=== PATIENT | female | born 1970 ===

== ENCOUNTER 2019-09-11 13:03 | Emergency (ER) | payer OTHER ==
[2019-09-11 13:09] VITALS: BP 133/74; PULSE 122; RESP 20; TEMP 97.9
--- NOTE | 2019-09-11 13:23 | ED ---
Recheck HPI - General Chief Complaint: Recheck/Abnormal Lab/Rx Stated Complaint: Dr's Note Time Seen by Provider: 09/11/19 13:11 Source: patient Mode of arrival: ambulatory Limitations: no limitations - History of Present Illness Initial Comments: Patient is a 49-year-old female, with type 1 diabetes, presenting to the emergency department requesting a return to work note. Patient states approximately 4-5 days ago and patient experience nausea, vomiting, diarrhea that lasted approximately 24 hours. Patient states she currently has no symptoms, however her employer is requesting a return to work note. Patient states she is unable to get into her regular doctor's office so she came to the ER for a work note. She denies chest pain, short of breath, cough, fever, abdominal pain, nausea, vomiting diarrhea. She states her sugar levels have been normal and she wears a pump. She has no further complaints. - Related Data Home Medications Medication Instructions Recorded Confirmed metFORMIN HCL 1,000 mg PO BID 03/31/15 08/15/15 ALPRAZolam [Xanax] 0.25 mg PO TID PRN 08/12/15 08/15/15 DULoxetine HCL [Cymbalta] 30 mg PO DAILY 08/12/15 08/15/15 Ondansetron [Zofran] 4 mg PO Q8HR PRN 08/12/15 08/15/15 Previous Rx's Medication Instructions Recorded HYDROcodone/APAP 5-325MG [[place] 1 tab PO Q6HR PRN #20 tab 08/16/15 5-325] INSULIN LISPRO (HumaLOG) [humaLOG] 0 unit SQ ACHS #1 vial 08/16/15 Insulin Detemir (Levemir) [Levemir] 18 unit SQ BID #1 vial 08/16/15 Allergies Allergy/AdvReac Type Severity Reaction Status Date / Time No Known Allergies Allergy Verified 09/11/19 13:09 Review of Systems ROS Statement: Those systems with pertinent positive or pertinent negative responses have been documented in the HPI. ROS Other: All systems not noted in ROS Statement are negative. Past Medical History Past Medical History: Diabetes Mellitus, Musculoskeletal Disorder Additional Past Medical History / Comment(s): FREQ NAUSEA, PAINFUL LT SHOULDER "FROZEN SHOULDER", NEUROPATHY PORFIRIO LEGS History of Any Multi-Drug Resistant Organisms: None Reported Past Surgical History: Tubal Ligation Past Anesthesia/Blood Transfusion Reactions: No Reported Reaction Additional Past Anesthesia/Blood Transfusion Reaction / Comment(s): UNK FAMILY HX Past Psychological History: Anxiety, Depression Smoking Status: Current every day smoker Past Alcohol Use History: None Reported Past Drug Use History: Marijuana - Past Family History Father History Unknown: Yes Additional Family Medical History / Comment(s): unknown-adopted Mother History Unknown: Yes Additional Family Medical History / Comment(s): unknown- adopted General Exam - General Exam Comments Initial Comments: GENERAL: Well-appearing, well-nourished and in no acute distress. HEAD: Atraumatic, normocephalic. EYES: Pupils equal round and reactive to light, extraocular movements intact, sclera anicteric, conjunctiva are normal. ENT: TMs normal, nares patent, oropharynx clear without exudates. Moist mucous membranes. NECK: Normal range of motion, supple without lymphadenopathy or JVD. LUNGS: Breath sounds clear to auscultation bilaterally and equal. No wheezes rales or rhonchi. HEART: Regular rate and rhythm without murmurs, rubs or gallops. ABDOMEN: Soft, nontender, normoactive bowel sounds. No guarding, no rebound. No masses appreciated. : Deferred EXTREMITIES: Normal range of motion, no pitting or edema. No clubbing or cyanosis. NEUROLOGICAL: Cranial nerves II through XII grossly intact. ormal speech, normal gait. PSYCH: Normal mood, normal affect. SKIN: Warm, Dry, normal turgor, no rashes or lesions noted. Limitations: no limitations Course Vital Signs 09/11/19 13:06 Temperature 97.9 F Pulse Rate 122 H Respiratory 20 Rate Blood Pressure 133/74 O2 Sat by Pulse 99 Oximetry Medical Decision Making - Medical Decision Making Patient is a 49-year-old female here requesting a return to work note secondary to having nausea, vomiting, diarrhea proximal 4 days ago. Symptoms last did approximately 24 hours. She is currently symptom-free. She has no complaints today. Exam is unremarkable. Patient was given a return to work note. She is stable for discharge. Patient will follow-up with her PCP as needed. Disposition Clinical Impression: Normal exam Disposition: HOME SELF-CARE Condition: Stable Instructions (If sedation given, give patient instructions): Normal Exam (ED) Additional Instructions: Please return to the Emergency Department if symptoms worsen or any other concerns. Is patient prescribed a controlled substance at d/c from ED?: No Referrals: William Macias MD [Primary Care Provider] - 1-2 days
== END 2019-09-11 13:27 | disposition home or self-care (01) ==
LOC: SUPCPDRO 13:03 → EC 13:03
DX: Z02.79 Encounter for issue of other medical certificate (principal); F32.9 Major depressive disorder, single episode, unspecified; E11.42 Type 2 diabetes mellitus with diabetic polyneuropathy; F41.9 Anxiety disorder, unspecified; F17.200 Nicotine dependence, unspecified, uncomplicated; Z79.84 Long term (current) use of oral hypoglycemic drugs; Z79.899 Other long term (current) drug therapy
CPT/HCPCS: 99282

== ENCOUNTER 2021-01-03 18:47 | Inpatient (IN) | payer OTHER ==
[2021-01-03] MEDS ORDERED: SODIUM CHLORIDE 0.9% 500 ML 500 ML IV ONE (19:55)
[2021-01-03] MEDS ORDERED: HYDROmorphone 0.5 MG/0.5 ML SYRINGE IVP STA (20:02)
[2021-01-03 20:26] LABS: Basophils # (A) 0.1 k/uL (0-0.2); Basophils % (A) 1 %; Eosinophils # (A) 0.1 k/uL (0-0.7); Eosinophils % (A) 1 %; HCT 52.9 % (34.0-46.0); HGB 17.3 gm/dL (11.4-16.0); Lymphocytes # (A) 1.6 k/uL (1.0-4.8); Lymphocytes % (A) 22 %; MCH 31.2 pg (25.0-35.0); MCHC 32.7 g/dL (31.0-37.0); MCV 95.5 fL (80.0-100.0); Mean Platelet Volume 7.5; Monocytes # (A) 0.4 k/uL (0-1.0); Monocytes % (A) 5 %; Neutrophils # (A) 4.9 k/uL (1.3-7.7); Neutrophils % (A) 69 %; Platelet Count 330 k/uL (150-450); RBC 5.54 m/uL (3.80-5.40); RDW 13.4 % (11.5-15.5); WBC 7.2 k/uL (3.8-10.6)
[2021-01-03 20:37] LABS: ALT 20 U/L (4-34); AST 29 U/L (14-36); African American GFR (CKD) >90 (>60 ml/min/1.73 sqM); Albumin 4.5 g/dL (3.5-5.0); Alkaline Phosphatase 122 U/L (38-126); Anion Gap 16 mmol/L; Blood Urea Nitrogen 13 mg/dL (7-17); Calcium 9.7 mg/dL (8.4-10.2); Carbon Dioxide 20 mmol/L (22-30); Chloride 94 mmol/L (98-107); Glucose 357 mg/dL (74-99); Magnesium 1.7 mg/dL (1.6-2.3); Non-African American GFR(CKD) >90 (>60 ml/min/1.73 sqM); Phosphorus 3.5 mg/dL (2.5-4.5); Potassium 4.9 mmol/L (3.5-5.1); Sodium 130 mmol/L (137-145); Total Bilirubin 0.7 mg/dL (0.2-1.3); Total Protein 7.3 g/dL (6.3-8.2)
[2021-01-03] MEDS ORDERED: SODIUM CHLORIDE 0.9% 1,000 ML IV ONE (20:55)
--- NOTE | 2021-01-03 21:33 | ED ---
Recheck HPI - General Chief Complaint: Recheck/Abnormal Lab/Rx Stated Complaint: Vomiting Time Seen by Provider: 01/03/21 19:36 Source: patient, EMS Mode of arrival: EMS - History of Present Illness Initial Comments: 50 year-old female patient presents to the emergency department for abdominal pain and vomiting. States that it has been going on for quite some time. She has been on hospice since mid September for uncontrolled diabetes, failure to thrive, and kidney failure. Patient states that she was told that she could not do dialysis because her "body couldn't handle it". States that she has lost a lot of weight. Does not eat. Spoke to the hospice nurse who states that patient sleeps all the time, smokes cigarettes, and marijuana. States that she offered to treat her pain and nausea at home but she wanted to come in for evaluation for possible alteration in electrolytes. Patient states that she is severely depressed. She never feels good and feels so sick. - Related Data Home Medications Medication Instructions Recorded Confirmed Ondansetron [Zofran] 4 mg PO Q8HR PRN 08/12/15 01/03/21 INSULIN LISPRO (HumaLOG) [humaLOG] See Protocol SQ ACHS PRN 01/03/21 01/03/21 Mirtazapine [Remeron] 15 mg PO HS 01/03/21 01/03/21 Pregabalin 75 mg PO TID 01/03/21 01/03/21 Prochlorperazine Suppository 25 mg RECTAL BID PRN 01/03/21 01/03/21 [Compazine] Previous Rx's Medication Instructions Recorded HYDROcodone/APAP 5-325MG [[place] 1 tab PO Q6HR PRN #20 tab 08/16/15 5-325] Allergies Allergy/AdvReac Type Severity Reaction Status Date / Time No Known Allergies Allergy Verified 01/03/21 21:58 Review of Systems ROS Statement: Those systems with pertinent positive or pertinent negative responses have been documented in the HPI. ROS Other: All systems not noted in ROS Statement are negative. Past Medical History Past Medical History: Diabetes Mellitus, Musculoskeletal Disorder Additional Past Medical History / Comment(s): FREQ NAUSEA, PAINFUL LT SHOULDER "FROZEN SHOULDER", NEUROPATHY PORFIRIO LEGS History of Any Multi-Drug Resistant Organisms: None Reported Past Surgical History: Tubal Ligation Past Anesthesia/Blood Transfusion Reactions: No Reported Reaction Additional Past Anesthesia/Blood Transfusion Reaction / Comment(s): UNK FAMILY HX Past Psychological History: Anxiety, Depression Past Alcohol Use History: None Reported Past Drug Use History: Marijuana - Past Family History Father History Unknown: Yes Additional Family Medical History / Comment(s): unknown-adopted Mother History Unknown: Yes Additional Family Medical History / Comment(s): unknown- adopted General Exam General appearance: alert, in no apparent distress, other (Physical well- developed, cachectic appearing adult female patient in no acute distress. Vital signs upon presentation temperature 97.8F, pulse 106, respirations 18, blood pressure 88/61, pulse ox 98% on room air.) Eye exam: Present: normal appearance, PERRL, EOMI. Absent: scleral icterus, conjunctival injection, periorbital swelling ENT exam: Present: normal exam, normal oropharynx, mucous membranes moist Respiratory exam: Present: normal lung sounds bilaterally. Absent: respiratory distress, wheezes, rales, rhonchi, stridor Cardiovascular Exam: Present: normal rhythm, tachycardia, normal heart sounds. Absent: systolic murmur, diastolic murmur, rubs, gallop, clicks GI/Abdominal exam: Present: soft, tenderness (Generalized), normal bowel sounds. Absent: distended, guarding, rebound, rigid Neurological exam: Present: alert, oriented X3, CN II-XII intact Psychiatric exam: Present: normal affect, normal mood Skin exam: Present: warm, dry, intact, normal color. Absent: rash Course Vital Signs 01/03/21 01/03/21 01/03/21 18:55 19:48 20:19 Temperature 97.8 F Pulse Rate 106 H 109 H 104 H Respiratory 18 18 16 Rate Blood Pressure 88/61 115/78 135/87 O2 Sat by Pulse 98 97 98 Oximetry 01/03/21 21:48 Temperature Pulse Rate 101 H Respiratory 18 Rate Blood Pressure 125/78 O2 Sat by Pulse 97 Oximetry Medical Decision Making - Medical Decision Making 50-year-old female patient who is apparently on hospice for uncontrolled diabetes, renal failure, and failure to thrive presents today for nausea, vomiting, abdominal pain that seems to be worsening. She is concerned her electrolytes may have been imbalanced due to her renal failure. Labs reviewed and revealed normal white blood cell count is 7.2. Did have elevated hemoglobin 17.3, low sodium at 130. Glucose is 357. Kidney function is completely normal. Did have a conversation with the hospice nurse she states she will be discharged from hospice due to coming into the hospital today and because her ki dney function is normal at this time. I did discuss these findings with the patient, she is shocked that her kidney function is normal. She states that she sold all of her possessions and her car because she thought she was dying. States that she is very confused. States that she has been evaluated at [facility]. Denies being seen at any larger hospitals. Her primary physician is Dr. Mendoza. She will be admitted to the hospital for failure to thrive, intractable abdominal pain and nausea. Patient does admit to be extremely depressed. Case discussed with my attending Dr. Hernandez. Dr. Pike accepts admission. GI is consulted. - Lab Data Result diagrams: 01/03/21 20:15 01/03/21 20:15 Lab Results 01/03/21 01/03/21 Range/Units 20:15 20:15 WBC 7.2 (3.8-10.6) k/uL RBC 5.54 H (3.80-5.40) m/uL Hgb 17.3 H (11.4-16.0) gm/dL Hct 52.9 H (34.0-46.0) % MCV 95.5 (80.0-100.0) fL MCH 31.2 (25.0-35.0) pg MCHC 32.7 (31.0-37.0) g/dL RDW 13.4 (11.5-15.5) % Plt Count 330 (150-450) k/uL MPV 7.5 Neutrophils % 69 % Lymphocytes % 22 % Monocytes % 5 % Eosinophils % 1 % Basophils % 1 % Neutrophils # 4.9 (1.3-7.7) k/uL Lymphocytes # 1.6 (1.0-4.8) k/uL Monocytes # 0.4 (0-1.0) k/uL Eosinophils # 0.1 (0-0.7) k/uL Basophils # 0.1 (0-0.2) k/uL Sodium 130 L (137-145) mmol/L Potassium 4.9 (3.5-5.1) mmol/L Chloride 94 L (98-107) mmol/L Carbon Dioxide 20 L (22-30) mmol/L Anion Gap 16 mmol/L BUN 13 (7-17) mg/dL Creatinine 0.40 L (0.52-1.04) mg/dL Est GFR (CKD-EPI)AfAm >90 (>60 ml/min/1.73 sqM) Est GFR (CKD-EPI)NonAf >90 (>60 ml/min/1.73 sqM) Glucose 357 H (74-99) mg/dL Calcium 9.7 (8.4-10.2) mg/dL Phosphorus 3.5 (2.5-4.5) mg/dL Magnesium 1.7 (1.6-2.3) mg/dL Total Bilirubin 0.7 (0.2-1.3) mg/dL AST 29 (14-36) U/L ALT 20 (4-34) U/L Alkaline Phosphatase 122 (38-126) U/L Total Protein 7.3 (6.3-8.2) g/dL Albumin 4.5 (3.5-5.0) g/dL - Radiology Data Radiology results: report reviewed, image reviewed CT abdomen and pelvis with contrast is obtained. Report was reviewed in its entirety. Impression by Dr. He shows negative computed tomography scan abdomen and pelvis. Disposition Clinical Impression: Intractable abdominal pain, Intractable nausea and vomiting, Failure to thrive Disposition: ADMITTED IP TO THIS [facility] Condition: Serious Decision to Admit Reason: Admit from EC Decision Date: 01/03/21 Decision Time: 21:55
[2021-01-03] MEDS ORDERED: NALOXONE 0.4 MG/ML 1 ML VIAL IV PRN (21:55)
[2021-01-03] MEDS ORDERED: LORazepam 1 MG TAB PO STA (22:15)
--- NOTE | 2021-01-03 22:46 | CT ---
EXAMINATION TYPE: CT abdomen pelvis w con DATE OF EXAM: 01/03/2021 COMPARISON: None HISTORY: abdominal pain, nausea, vomiting CT DLP: 357.3 mGycm Automated exposure control for dose reduction was used. CONTRAST: Performed with IV Contrast, patient injected with 100 mL of Isovue 300. Images obtained from the diaphragm to the floor the pelvis with IV contrast. Lung bases are clear. There is no pleural effusion. Heart size is normal. There is no pericardial eff usion. Liver spleen stomach gallbladder pancreas appear intact. The bile ducts are not dilated. There is no adrenal mass. Kidneys show satisfactory contrast opacification. There is no hydronephrosi s. Delayed images show normal renal excretion. There is no retroperitoneal adenopathy. Abdominal aort a is atheromatous. Bladder distends smoothly. There is no inguinal hernia. Uterus is anteverted. Ther e is no free fluid in the pelvis. There is no mesenteric edema. There is no ascites or free air. There is no sign of a bowel obstructio n. There is some narrowing of the L5-S1 disc space. The bony pelvis is intact. The lumbar vertebra have normal alignment. There is no compression fracture. Appendix is not seen with certainty. There is no sign of thickened appendix. IMPRESSION: Negative CT scan abdomen and pelvis.
[2021-01-04] MEDS: SODIUM CHLORIDE 0.9% 1,000 ML IV SCH ×2 (01:48→10:35)
[2021-01-04] MEDS: HYDROmorphone 0.5 MG/0.5 ML SYRINGE IVP PRN ×4 (01:49→20:13)
[2021-01-04] MEDS: ONDANSETRON 4 MG/2 ML VIAL IVP PRN ×2 (01:49→10:41)
[2021-01-04] MEDS ORDERED: HYDROcodone/APAP 5-325MG 1 EACH TAB PO PRN (03:32)
[2021-01-04 05:53] LABS: Basophils # (A) 0.1 k/uL (0-0.2); Basophils % (A) 1 %; Eosinophils # (A) 0.1 k/uL (0-0.7); Eosinophils % (A) 1 %; HCT 45.6 % (34.0-46.0); HGB 14.7 gm/dL (11.4-16.0); Lymphocytes # (A) 1.9 k/uL (1.0-4.8); Lymphocytes % (A) 22 %; MCH 30.9 pg (25.0-35.0); MCHC 32.3 g/dL (31.0-37.0); MCV 95.7 fL (80.0-100.0); Mean Platelet Volume 7.9; Monocytes # (A) 0.4 k/uL (0-1.0); Monocytes % (A) 5 %; Neutrophils # (A) 5.8 k/uL (1.3-7.7); Neutrophils % (A) 69 %; Platelet Count 262 k/uL (150-450); RBC 4.76 m/uL (3.80-5.40); WBC 8.4 k/uL (3.8-10.6)
[2021-01-04 06:06] LABS: ALT 16 U/L (4-34); AST 23 U/L (14-36); African American GFR (CKD) >90 (>60 ml/min/1.73 sqM); Albumin 3.5 g/dL (3.5-5.0); Alkaline Phosphatase 88 U/L (38-126); Anion Gap 9 mmol/L; Blood Urea Nitrogen 10 mg/dL (7-17); Calcium 8.9 mg/dL (8.4-10.2); Carbon Dioxide 22 mmol/L (22-30); Chloride 102 mmol/L (98-107); Glucose 342 mg/dL (74-99); Non-African American GFR(CKD) >90 (>60 ml/min/1.73 sqM); Potassium 4.1 mmol/L (3.5-5.1); Sodium 133 mmol/L (137-145); Total Bilirubin 0.4 mg/dL (0.2-1.3); Total Protein 5.9 g/dL (6.3-8.2)
[2021-01-04] MEDS ORDERED: PROCHLORPERAZINE SUPPOSITORY 25 MG SUPP RECTAL PRN (06:49)
[2021-01-04] MEDS: PREGABALIN 75 MG CAP PO SCH ×3 (07:30→20:34)
[2021-01-04 07:38] LABS: Glucose,Whole Blood 323 mg/dL (75-99)
[2021-01-04] MEDS: INSULIN ASPART (NovoLOG) 100 UNIT/ML VIAL SQ SCH ×4 (07:59→20:34)
--- NOTE | 2021-01-04 10:29 | P.CONS ---
History of Present Illness - Reason for Consult Consult date: 01/04/21 wound care - History of Present Illness this is a 50-year-old patient being seen by the wound care center for nonhealing ulcerations to the bilateral lower extremity. Patient has an ulceration to the right foot on the first digit and in between the webbing of the third and fourth digit. The ulcerations are limited to skin breakdown. Granulation seen throughout the wound bed with minimal slough. The left foot ulceration is noted to the first digit and the webbing of the third and fourth digit and fourth digit. The ulceration is Limited to skin breakdown. With serosanguineous drainage. granulation seen within the wound bed with minimal slough. patient states that the ulceration started because she picks at her feet from nerves. Patient was recently on hospice due to kidney failure and uncontrolled diabetes. Her blood sugars range from 300 500. Patient at this time has been refusing any insulin because she wants to keep her blood sugars elevated. Review Of Systems: Constitutional: No fever, no chills, no night sweats. No weight change. No weakness, fatigue or lethargy. No daytime sleepiness. Integumentary:reports wounds, no lesions. No rash or pruritus. No unusual bruising. No change in hair or nails. Physical exam: General Appearance: Alert, cooperative, no distress, appears stated age. Skin: See HPI all other Skin color, texture, tugor normal, no rashes or lesions. Neurologic: Alert oriented x3 Assessment: 1. Diabetic foot ulcer 2. Nonhealing ulcerations to the great toe and webbing between the third and fourth toe of right foot. 3. Nonhealing ulcerations of the great toe, webbing between the third and fourth digit and the fourth digit of the left foot. Plan: 1. Apply honey gel to all ulcerations, dry gauze, rolled gauze and secured with paper tape. Change Saturday. Specimen length with patient the importance of keeping blood sugars under control and how elevated blood sugars will increase the risk of developing infections to the open ulcerations. Patient verbalized understanding however she states that she still wants her blood sugar between 300-500. Thank you for the consultation any questions please contact the wound care center DNP note has been reviewed and discussed with Dr. Gregory and the impression and plan of care has been directed as dictated. Past Medical History Past Medical History: Diabetes Mellitus, Musculoskeletal Disorder Additional Past Medical History / Comment(s): FREQ NAUSEA, PAINFUL LT SHOULDER "FROZEN SHOULDER", NEUROPATHY PORFIRIO LEGS History of Any Multi-Drug Resistant Organisms: None Reported Past Surgical History: Tubal Ligation Past Anesthesia/Blood Transfusion Reactions: No Reported Reaction Additional Past Anesthesia/Blood Transfusion Reaction / Comm: UNK FAMILY HX Past Psychological History: Anxiety, Depression Smoking Status: Current every day smoker Past Alcohol Use History: None Reported Additional Past Alcohol Use History / Comment(s): STARTED SMOKING 1987 Past Drug Use History: Marijuana Additional Drug Use History / Comment(s): HAS MEDICAL MARIJUANA CARD-USES DAILY AND FREQUENTLY - Past Family History Father History Unknown: Yes Additional Family Medical History / Comment(s): unknown-adopted Mother History Unknown: Yes Additional Family Medical History / Comment(s): unknown- adopted Medications and Allergies Home Medications Medication Instructions Recorded Confirmed Type Ondansetron [Zofran] 4 mg PO Q8HR PRN 08/12/15 01/03/21 History HYDROcodone/APAP 5-325MG [[place] 1 tab PO Q6HR PRN #20 tab 08/16/15 01/03/21 Rx 5-325] INSULIN LISPRO (HumaLOG) [humaLOG] See Protocol SQ ACHS PRN 01/03/21 01/03/21 History Mirtazapine [Remeron] 15 mg PO HS 01/03/21 01/03/21 History Pregabalin 75 mg PO TID 01/03/21 01/03/21 History Prochlorperazine Suppository 25 mg RECTAL BID PRN 01/03/21 01/03/21 History [Compazine] Allergies Allergy/AdvReac Type Severity Reaction Status Date / Time No Known Allergies Allergy Verified 01/03/21 21:58 Physical Exam Vitals: Vital Signs Temp Pulse Pulse Resp BP BP Pulse Ox 01/04/21 07:00 97.6 F 104 H 18 164/98 99 01/04/21 01:28 97.5 F L 96 16 107/73 100 01/04/21 01:04 98.1 F 97 18 101/74 97 01/03/21 21:48 101 H 18 125/78 97 01/03/21 20:19 104 H 16 135/87 98 01/03/21 19:48 109 H 18 115/78 97 01/03/21 18:55 97.8 F 106 H 18 88/61 98 Intake and Output 01/03/21 01/04/21 01/04/21 22:59 06:59 14:59 Intake Total 1800 Balance 1800 Intake: Intake, IV Titration 1800 Amount Sodium Chloride 0.9% 1, 300 000 ml @ 75 mls/hr IV . [id number] [facility] Rx#:[id number] Sodium Chloride 0.9% 1, 1000 000 ml @ 999 mls/hr IV . Q1H1M ONE Rx#:[id number] Sodium Chloride 0.9% 500 500 ml 500 ml @ 999 mls/hr IV .Q31M ONE Rx#:[id number] Other: # Voids 3 Weight 32.659 kg 32.1 kg Results CBC & Chem 7: 01/04/21 05:06 01/04/21 05:06 Labs: Abnormal Lab Results - Last 24 Hours (Table) 01/03/21 01/03/21 01/04/21 Range/Units 20:15 20:15 05:06 RBC 5.54 H (3.80-5.40) m/uL Hgb 17.3 H (11.4-16.0) gm/dL Hct 52.9 H (34.0-46.0) % Sodium 130 L 133 L (137-145) mmol/L Chloride 94 L (98-107) mmol/L Carbon Dioxide 20 L (22-30) mmol/L Creatinine 0.40 L 0.35 L (0.52-1.04) mg/dL Glucose 357 H 342 H (74-99) mg/dL POC Glucose (mg/dL) (75-99) mg/dL Total Protein 5.9 L (6.3-8.2) g/dL 01/04/21 Range/Units 07:22 RBC (3.80-5.40) m/uL Hgb (11.4-16.0) gm/dL Hct (34.0-46.0) % Sodium (137-145) mmol/L Chloride (98-107) mmol/L Carbon Dioxide (22-30) mmol/L Creatinine (0.52-1.04) mg/dL Glucose (74-99) mg/dL POC Glucose (mg/dL) 323 H (75-99) mg/dL Total Protein (6.3-8.2) g/dL Assessment and Plan (1) Non-healing ulcer of right foot, limited to breakdown of skin Current Visit: Yes Status: Acute Code(s): L97.511 - NON-PRS CHRONIC ULCER OTH PRT R FOOT LIMITED TO BRKDWN SKIN SNOMED Code(s): 889530753 (2) Non-healing ulcer of left foot, limited to breakdown of skin Current Visit: Yes Status: Acute Code(s): L97.521 - NON-PRS CHRONIC ULCER OTH PRT L FOOT LIMITED TO BRKDWN SKIN SNOMED Code(s): 073436494 (3) Diabetic foot ulcer Current Visit: Yes Status: Acute Code(s): E11.621 - TYPE 2 DIABETES MELLITUS WITH FOOT ULCER; L97.509 - NON-PRESSURE CHRONIC ULCER OTH PRT UNSP FOOT W UNSP SEVERITY SNOMED Code(s): 782918199
--- NOTE | 2021-01-04 11:30 | HP ---
HISTORY AND PHYSICAL HISTORY: A 50-year-old white female, nonhealing ulcerations, bilateral lower extremities, ulceration on the right foot first digit with skin breakdown with minimal slough. Left foot ulceration is noted on 3rd, 4th and 5th digit. Ulcerations limited to breakdown, serosanguineous drainage. She has been placed in hospice for kidney failure and uncontrolled diabetes. She has no signs of kidney failure on today's admission. Her sugars range from 300 to 500, but she had been refusing insulin because she wants to keep her blood sugars elevated. REVIEW OF SYSTEMS: A 14-point review of system is otherwise negative. PHYSICAL EXAMINATION: Alert, cooperative, no acute distress. PSYCH: Alert oriented x3. SKIN: As mentioned above except for the feet. CARDIOVASCULAR: S1, S2. LUNGS: Clear. Hematology negative Homans. PSYCH: Fair mood and affect. ASSESSMENT: 1. Diabetic foot ulcer. 2. Uncontrolled diabetes mellitus. 3. Nonhealing ulcerations of the great toe in the webbing. PLAN: Continue with wound care, dressings and Medihoney applied to the dressings. IV antibiotics. Control her blood sugars. Will get a consult with proof clerk, vascular surgery as well as infectious disease doctor. Please see further orders. PAST MEDICAL HISTORY: As mentioned. SURGICAL HISTORY: Tubal ligation. She has had anxiety, depression, current everyday smoker and marijuana. FAMILY HISTORY: Father unknown. Mother unknown. She is adopted. HOME MEDICATIONS: [place] 5/325 q.6 hours, Zofran 4 mg q.8h, Humalog protocol, Remeron 15 daily, Pregabalin 75 t.i.d. ALLERGIES: No known drug allergies. Blood pressure has been low 100s over 70s to 80s. Pulse is in the low 100s, temp 97, O2 saturation 97-100. ASSESSMENT: Nonhealing ulcers of the right and left foot, diabetic foot ulcer, uncontrolled diabetes mellitus, persistent nausea and vomiting. We will get GI involved. CT of the abdomen and pelvis normal. Please see further orders. MMODL / IJN: [id number] /
[2021-01-04 11:55] LABS: Glucose,Whole Blood 398 mg/dL (75-99)
[2021-01-04] MEDS: PANTOPRAZOLE 40 MG/10 ML VIAL IVP SCH (12:27)
--- NOTE | 2021-01-04 13:29 | P.CONS ---
History of Present Illness - Reason for Consult Consult date: 01/04/21 Intractable nausea, vomiting, abdominal pain Requesting physician: Dell Pike - Chief Complaint Abdominal pain and vomiting - History of Present Illness This is a 50-year-old female who presented to the emergency department yesterday with complaints of abdominal pain and vomiting. Patient states she vomits when she eats, she has had a 30 pound weight loss over the past 4 years since her . She's had diarrhea 1 month and may go 3-4 times a day. She does state she has started new medications including Lyrica, Remeron, and Zofran. She has a past medical history of diabetes mellitus, musculoskeletal disorder, and states that she had renal failure and was put into hospice and has been under the care of hospice. The patient on admission had blood sugars in the 300 range. She states that she keeps her blood sugars between 3 and 500 at home. As part of her workup in the emergency department she had a CT of the abdomen and pelvis which was negative. She has had no previous EGD or colonoscopy. Labs show WBC 7.2, hemoglobin 14.7, hematocrit 45, platelet count 262,000, total bilirubin 0.4, alkaline phosphatase 88, AST 23, ALT 16. Patient has been refusing her insulin since she's been admitted to the hospital and states that she likes her blood sugars to remain between 305 100 otherwise she does not feel well. Review of Systems REVIEW OF SYSTEMS: CARDIOPULMONARY: No chest pain or shortness of breath. Gastrointestinal: Diffuse abdominal pain. Nausea and vomiting after eating.. No hematemesis, coffee-ground emesis. No rectal bleeding, or melena. Diarrhea. GENITOURINARY: No dysuria or hematuria. MUSCULOSKELETAL: Reports normal range of motion., Joint pain. Patient reports chronic pain. SKIN: No rashes. No jaundice. ENDOCRINE: No chills, fevers. Weight loss of 30 pounds over the last 4 years. No polydipsia or polyuria. PSYCHIATRIC: Unremarkable. NEUROLOGY: No change in mental status. Denies dizziness, headache. ENT: Vision unremarkable. CONSTITUTIONAL: No recent weight loss. No fever, chills, night sweats. Past Medical History Past Medical History: Diabetes Mellitus, Musculoskeletal Disorder Additional Past Medical History / Comment(s): FREQ NAUSEA, PAINFUL LT SHOULDER "FROZEN SHOULDER", NEUROPATHY PORFIRIO LEGS History of Any Multi-Drug Resistant Organisms: None Reported Past Surgical History: Tubal Ligation Past Anesthesia/Blood Transfusion Reactions: No Reported Reaction Additional Past Anesthesia/Blood Transfusion Reaction / Comm: UNK FAMILY HX Past Psychological History: Anxiety, Depression Smoking Status: Current every day smoker Past Alcohol Use History: None Reported Additional Past Alcohol Use History / Comment(s): STARTED SMOKING 1987 Past Drug Use History: Marijuana Additional Drug Use History / Comment(s): HAS MEDICAL MARIJUANA CARD-USES DAILY AND FREQUENTLY - Past Family History Father History Unknown: Yes Additional Family Medical History / Comment(s): unknown-adopted Mother History Unknown: Yes Additional Family Medical History / Comment(s): unknown- adopted Medications and Allergies Home Medications Medication Instructions Recorded Confirmed Type Ondansetron [Zofran] 4 mg PO Q8HR PRN 08/12/15 01/03/21 History HYDROcodone/APAP 5-325MG [[place] 1 tab PO Q6HR PRN #20 tab 08/16/15 01/03/21 Rx 5-325] INSULIN LISPRO (HumaLOG) [humaLOG] See Protocol SQ ACHS PRN 01/03/21 01/03/21 History Mirtazapine [Remeron] 15 mg PO HS 01/03/21 01/03/21 History Pregabalin 75 mg PO TID 01/03/21 01/03/21 History Prochlorperazine Suppository 25 mg RECTAL BID PRN 01/03/21 01/03/21 History [Compazine] Allergies Allergy/AdvReac Type Severity Reaction Status Date / Time No Known Allergies Allergy Verified 01/03/21 21:58 Physical Exam Vitals: Vital Signs Temp Pulse Pulse Resp BP BP Pulse Ox 01/04/21 07:00 97.6 F 104 H 18 164/98 99 01/04/21 01:28 97.5 F L 96 16 107/73 100 01/04/21 01:04 98.1 F 97 18 101/74 97 01/03/21 21:48 101 H 18 125/78 97 01/03/21 20:19 104 H 16 135/87 98 01/03/21 19:48 109 H 18 115/78 97 01/03/21 18:55 97.8 F 106 H 18 88/61 98 Intake and Output 01/03/21 01/04/21 01/04/21 22:59 06:59 14:59 Intake Total 1800 Balance 1800 Intake: Intake, IV Titration 1800 Amount Sodium Chloride 0.9% 1, 300 000 ml @ 75 mls/hr IV . [id number] [facility] Rx#:[id number] Sodium Chloride 0.9% 1, 1000 000 ml @ 999 mls/hr IV . Q1H1M ONE Rx#:[id number] Sodium Chloride 0.9% 500 500 ml 500 ml @ 999 mls/hr IV .Q31M [facility] Rx#:[id number] Other: # Voids 3 Weight 32.659 kg 32.1 kg General appearance: The patient is alert, oriented, appears in no acute distress. Thin. HET: Head is normocephalic and atraumatic. Conjunctiva pink. Sclera anicteric. Neck: Supple without lymphadenopathy. Trachea midline. Heart: S1 S2. Regular rate and rhythm. Lungs: Clear to auscultation. Abdomen: Soft, diffuse tenderness, thin, nondistended with bowel sounds. No guarding or rigidity. Skin: No rashes. No jaundice. Wounds on feet. Extremities: Normal skin color and turgor. No pedal edema. Neurological: No focal deficits. Alert and oriented 3.. Results CBC & Chem 7: 01/04/21 05:06 01/04/21 05:06 Labs: Abnormal Lab Results - Last 24 Hours (Table) 01/03/21 01/03/21 01/04/21 Range/Units 20:15 20:15 05:06 RBC 5.54 H (3.80-5.40) m/uL Hgb 17.3 H (11.4-16.0) gm/dL Hct 52.9 H (34.0-46.0) % Sodium 130 L 133 L (137-145) mmol/L Chloride 94 L (98-107) mmol/L Carbon Dioxide 20 L (22-30) mmol/L Creatinine 0.40 L 0.35 L (0.52-1.04) mg/dL Glucose 357 H 342 H (74-99) mg/dL POC Glucose (mg/dL) (75-99) mg/dL Total Protein 5.9 L (6.3-8.2) g/dL 01/04/21 Range/Units 07:22 RBC (3.80-5.40) m/uL Hgb (11.4-16.0) gm/dL Hct (34.0-46.0) % Sodium (137-145) mmol/L Chloride (98-107) mmol/L Carbon Dioxide (22-30) mmol/L Creatinine (0.52-1.04) mg/dL Glucose (74-99) mg/dL POC Glucose (mg/dL) 323 H (75-99) mg/dL Total Protein (6.3-8.2) g/dL CT scan - abdomen: report reviewed (Negative findings.) Assessment and Plan (1) Nausea & vomiting Narrative/Plan: 50-year-old female who presented to the emergency department with complaints of abdominal pain, vomiting, and diarrhea. Patient has been under hospice care for end-stage renal disease. She has a history of diabetes mellitus with uncontrolled blood sugars, states her blood sugars normally run between 300 and 500, which she states is her norm and does not treat her blood sugars. She complains of nausea and vomiting, especially associated with eating. She also c omplains of diarrhea for the last 1 month's duration. She does state that she started new medications including Lyrica, Remeron, and Zofran. She denies any sick contacts, she's been afebrile. She said no previous EGD or colonoscopy. CT of the abdomen and pelvis on admission with negative findings. Labs were unremarkable. Likely dealing with nausea and vomiting related to uncontrolled blood sugars and possible component of gastroparesis due to her diabetes mellitus. Discuss with patient the small portions. We'll add Protonix 40 mg daily. Current Visit: Yes Status: Acute Code(s): R11.2 - NAUSEA WITH VOMITING, UNSPECIFIED SNOMED Code(s): 87009253 (2) Abdominal pain Current Visit: Yes Status: Acute Code(s): R10.9 - UNSPECIFIED ABDOMINAL PAIN SNOMED Code(s): 09369015 (3) Diarrhea Current Visit: Yes Status: Acute Code(s): R19.7 - DIARRHEA, UNSPECIFIED SNOMED Code(s): 69497588 Plan: 1. Okay for consistent carbohydrate diet 2. Protonix 40 mg daily 3. Strict glycemic control 4. Discussed with patient importance of eating small frequent meals, limit portion size 5. No plans on endoscopic evaluation at this time 6. Stool studies ordered Thank you for this consultation, we will continue to follow Dr. Kumar I agree with the dictator's note, documented as a scribe by Leigh Ordonez.
[2021-01-04 13:34] VITALS: BMI 14.3
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
[2021-01-04 16:39] LABS: Glucose,Whole Blood 233 mg/dL (75-99)
[2021-01-04 18:21] LABS: Glucose,Whole Blood 345 mg/dL (75-99)
[2021-01-04] MEDS: TRIAMCINOLONE 0.1% CREAM 80 GM TUBE TOPICAL SCH ×2 (20:16→23:58)
[2021-01-04] MEDS: NYSTATIN 100,000UNIT/GM CREAM 30 GM TUBE TOPICAL SCH ×2 (20:16→23:58)
[2021-01-04 20:21] LABS: Glucose,Whole Blood 276 mg/dL (75-99)
[2021-01-04 20:34] LABS: Hemoglobin A1C 17.1 % (4.0-6.0)
[2021-01-04] MEDS ORDERED: MIRTAZAPINE 15 MG TAB PO SCH ×2 (21:00)
[2021-01-04 22:04] LABS: C-Peptide 0.53 ng/mL (0.81-3.85)
--- NOTE | 2021-01-04 23:22 | P.CONS ---
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 Review of Systems Positive point has been mentioned in the HPI rest of the systems are negative Past Medical History Past Medical History: Diabetes Mellitus, Musculoskeletal Disorder Additional Past Medical History / Comment(s): FREQ NAUSEA, PAINFUL LT SHOULDER "FROZEN SHOULDER", NEUROPATHY PORFIRIO LEGS History of Any Multi-Drug Resistant Organisms: None Reported Past Surgical History: Tubal Ligation Past Anesthesia/Blood Transfusion Reactions: No Reported Reaction Additional Past Anesthesia/Blood Transfusion Reaction / Comm: UNK FAMILY HX Past Psychological History: Anxiety, Depression Smoking Status: Current every day smoker Past Alcohol Use History: None Reported Additional Past Alcohol Use History / Comment(s): STARTED SMOKING 1987 Past Drug Use History: Marijuana Additional Drug Use History / Comment(s): HAS MEDICAL MARIJUANA CARD-USES DAILY AND FREQUENTLY - Past Family History Father History Unknown: Yes Additional Family Medical History / Comment(s): unknown-adopted Mother History Unknown: Yes Additional Family Medical History / Comment(s): unknown- adopted Medications and Allergies Home Medications Medication Instructions Recorded Confirmed Type Ondansetron [Zofran] 4 mg PO Q8HR PRN 08/12/15 01/03/21 History HYDROcodone/APAP 5-325MG [[place] 1 tab PO Q6HR PRN #20 tab 08/16/15 01/03/21 Rx 5-325] INSULIN LISPRO (HumaLOG) [humaLOG] See Protocol SQ ACHS PRN 01/03/21 01/03/21 History Mirtazapine [Remeron] 15 mg PO HS 01/03/21 01/03/21 History Pregabalin 75 mg PO TID 01/03/21 01/03/21 History Prochlorperazine Suppository 25 mg RECTAL BID PRN 01/03/21 01/03/21 History [Compazine] Allergies Allergy/AdvReac Type Severity Reaction Status Date / Time No Known Allergies Allergy Verified 01/03/21 21:58 Physical Exam Vitals: Vital Signs Temp Pulse Pulse Resp BP BP Pulse Ox 01/04/21 15:00 98.2 F 118 H 18 131/86 99 01/04/21 07:00 97.6 F 104 H 18 164/98 99 01/04/21 01:28 97.5 F L 96 16 107/73 100 01/04/21 01:04 98.1 F 97 18 101/74 97 01/03/21 21:48 101 H 18 125/78 97 01/03/21 20:19 104 H 16 135/87 98 01/03/21 19:48 109 H 18 115/78 97 01/03/21 18:55 97.8 F 106 H 18 88/61 98 Intake and Output 01/04/21 01/04/21 01/04/21 06:59 14:59 22:59 Intake Total 1800 Balance 1800 Intake: Intake, IV Titration 1800 Amount Sodium Chloride 0.9% 1, 300 000 ml @ 75 mls/hr IV . [id number] [facility] Rx#:[id number] Sodium Chloride 0.9% 1, 1000 000 ml @ 999 mls/hr IV . Q1H1M [facility] Rx#:[id number] Sodium Chloride 0.9% 500 500 ml 500 ml @ 999 mls/hr IV .Q31M [facility] Rx#:[id number] Other: # Voids 3 1 Weight 32.1 kg 32.1 kg GENERAL DESCRIPTION: Middle-aged female lying in bed, no distress. No tachypnea or accessory muscle of respiration use. HEENT: Shows Pallor , no scleral icterus. Oral mucous membrane is dry. No pharyngeal erythema or thrush NECK: Trachea central, no thyromegaly. LUNGS: Unlabored breathing. Clear to auscultation anteriorly. No wheeze or crackle. HEART: S1, S2, regular rate and rhythm. No loud murmur ABDOMEN: Soft, no tenderness , guarding or rigidity, no organomegaly EXTREMITIES: No edema of feet. Bilateral feet toe tips did have a dry scaly skin SKIN: No rash, no masses palpable. NEUROLOGICAL: The patient is awake, alert, oriented x3, mood and affect normal. Results CBC & Chem 7: 01/04/21 05:06 01/04/21 05:06 Labs: Abnormal Lab Results - Last 24 Hours (Table) 01/03/21 01/03/21 01/04/21 Range/Units 20:15 20:15 05:06 RBC 5.54 H (3.80-5.40) m/uL Hgb 17.3 H (11.4-16.0) gm/dL Hct 52.9 H (34.0-46.0) % Sodium 130 L 133 L (137-145) mmol/L Chloride 94 L (98-107) mmol/L Carbon Dioxide 20 L (22-30) mmol/L Creatinine 0.40 L 0.35 L (0.52-1.04) mg/dL Glucose 357 H 342 H (74-99) mg/dL POC Glucose (mg/dL) (75-99) mg/dL Total Protein 5.9 L (6.3-8.2) g/dL 01/04/21 01/04/21 01/04/21 Range/Units 07:22 11:54 16:37 RBC (3.80-5.40) m/uL Hgb (11.4-16.0) gm/dL Hct (34.0-46.0) % Sodium (137-145) mmol/L Chloride (98-107) mmol/L Carbon Dioxide (22-30) mmol/L Creatinine (0.52-1.04) mg/dL Glucose (74-99) mg/dL POC Glucose (mg/dL) 323 H 398 H 233 H (75-99) mg/dL Total Protein (6.3-8.2) g/dL Assessment and Plan Assessment: 1-patient with bilateral feet toes dermatitis possible fungal dermatitis cl inical not behaving as bacterial cellulitis in this patient no fever elevated white count and no evidence of any foul-smelling drainage or significant erythema (1) Fungal dermatitis Current Visit: Yes Status: Acute Code(s): B36.9 - SUPERFICIAL MYCOSIS, UNSPECIFIED SNOMED Code(s): 76512603 (2) Diabetic foot ulcer Current Visit: Yes Status: Acute Code(s): E11.621 - TYPE 2 DIABETES MELLITUS WITH FOOT ULCER; L97.509 - NON-PRESSURE CHRONIC ULCER OTH PRT UNSP FOOT W UNSP SEVERITY SNOMED Code(s): 827067810 Plan: 1-recommend her local care with Mycolog cream twice a day 2-no need for systemic antibiotic therapy We will follow on clinical condition and cultures to further adjust medication if needed Thank you for this consultation we will follow the patient along with you Time with Patient: Greater than 30
[2021-01-05 02:44] LABS: Chol/HDL Ratio 7.62; LDL Cholesterol,Calculated 174.4 mg/dL (0.0-131.0); VLDL Calculation 70.6 mg/dL (5.00-40.00)
[2021-01-05] MEDS: SODIUM CHLORIDE 0.9% 1,000 ML IV SCH (03:24)
[2021-01-05 06:56] LABS: Glucose,Whole Blood 351 mg/dL (75-99)
[2021-01-05] MEDS: PANTOPRAZOLE 40 MG/10 ML VIAL IVP SCH (07:45)
[2021-01-05] MEDS: PREGABALIN 75 MG CAP PO SCH (07:46)
[2021-01-05] MEDS: INSULIN ASPART (NovoLOG) 100 UNIT/ML VIAL SQ SCH ×2 (07:46→12:40)
[2021-01-05] MEDS: TRIAMCINOLONE 0.1% CREAM 80 GM TUBE TOPICAL SCH (07:51)
[2021-01-05] MEDS: NYSTATIN 100,000UNIT/GM CREAM 30 GM TUBE TOPICAL SCH (07:51)
[2021-01-05 08:26] VITALS: PULSE 105; RESP 16; TEMP 98.6
[2021-01-05 10:29] VITALS: BP 124/78
--- NOTE | 2021-01-05 12:00 | P.PN ---
Subjective Progress Note Date: 01/05/21 Principal diagnosis: nausea, vomiting, diarrhea She was seen and examined sitting up in bed. She states her nausea, vomiting, and diarrhea have subsided. She has had no further diarrhea since she's been in the hospital. She states she ate her dinner and her breakfast without any difficulty. She denies any abdominal pain. Objective - Vital Signs Vital signs: Vital Signs Temp 98.6 F 01/05/21 07:00 Pulse 105 H 01/05/21 10:18 Resp 16 01/05/21 07:00 BP 124/78 01/05/21 10:18 Pulse Ox 98 01/05/21 10:18 Intake & Output 01/04/21 01/05/21 01/05/21 18:59 06:59 18:59 Weight 32.1 kg Other: Voiding Method Toilet Toilet # Voids 1 2 - Exam General appearance: The patient is alert, oriented, appears in no acute di stress. HET: Head is normocephalic and atraumatic. Conjunctiva pink. Sclera anicteric. Neck: Supple without lymphadenopathy. Abdomen: Soft, nontender, nondistended with bowel sounds. No guarding or rigidity. Extremities: Normal skin color and turgor. No pedal edema Skin: No rashes, no jaundice Neurological: No focal deficits. Alert and oriented 3. - Labs CBC & Chem 7: 01/04/21 05:06 01/04/21 05:06 Labs: Abnormal Lab Results - Last 24 Hours (Table) 01/04/21 01/04/21 01/04/21 Range/Units 05:06 11:54 12:33 POC Glucose (mg/dL) 398 H (75-99) mg/dL Hemoglobin A1c 17.1 H (4.0-6.0) % C-Peptide 0.53 L (0.81-3.85) ng/mL Triglycerides 353.0 H (0.0-149.0) mg/dL Cholesterol 282 H (0-200) mg/dL LDL Cholesterol, Calc 174.4 H (0.0-131.0) mg/dL VLDL Cholesterol, Calc 70.60 H (5.00-40.00) mg/dL HDL Cholesterol 37.0 L (40.0-60.0) mg/dL 01/04/21 01/04/21 01/04/21 Range/Units 16:37 18:19 20:20 POC Glucose (mg/dL) 233 H 345 H 276 H (75-99) mg/dL Hemoglobin A1c (4.0-6.0) % C-Peptide (0.81-3.85) ng/mL Triglycerides (0.0-149.0) mg/dL Cholesterol (0-200) mg/dL LDL Cholesterol, Calc (0.0-131.0) mg/dL VLDL Cholesterol, Calc (5.00-40.00) mg/dL HDL Cholesterol (40.0-60.0) mg/dL 01/05/21 Range/Units 06:55 POC Glucose (mg/dL) 351 H (75-99) mg/dL Hemoglobin A1c (4.0-6.0) % C-Peptide (0.81-3.85) ng/mL Triglycerides (0.0-149.0) mg/dL Cholesterol (0-200) mg/dL LDL Cholesterol, Calc (0.0-131.0) mg/dL VLDL Cholesterol, Calc (5.00-40.00) mg/dL HDL Cholesterol (40.0-60.0) mg/dL Assessment and Plan (1) Nausea & vomiting Narrative/Plan: 50-year-old female who presented to the emergency department with complaints of abdominal pain, vomiting, and diarrhea. Patient has been under hospice care for end-stage renal disease. She has a history of diabetes mellitus with uncontrolled blood sugars, states her blood sugars normally run between 300 and 500, which she states is her norm and does not treat her blood sugars. She complains of nausea and vomiting, especially associated with eating. She also complains of diarrhea for the last 1 month's duration. She does state that she started new medications including Lyrica, Remeron, and Zofran. She denies any sick contacts, she's been afebrile. She said no previous EGD or colonoscopy. CT of the abdomen and pelvis on admission with negative findings. Labs were unremarkable. Likely dealing with nausea and vomiting related to uncontrolled blood sugars and possible component of gastroparesis due to her diabetes mellitus. Discuss with patient the small portions. We'll add Protonix 40 mg daily. Current Visit: Yes Status: Acute Code(s): R11.2 - NAUSEA WITH VOMITING, UNSPECIFIED SNOMED Code(s): 49592342 (2) Abdominal pain Current Visit: Yes Status: Acute Code(s): R10.9 - UNSPECIFIED ABDOMINAL PAIN SNOMED Code(s): 22578547 (3) Diarrhea Current Visit: Yes Status: Acute Code(s): R19.7 - DIARRHEA, UNSPECIFIED SNOMED Code(s): 04701717 Plan: 1. Okay for consistent carbohydrate diet 2. Protonix 40 mg daily 3. Strict glycemic control 4. Discussed with patient importance of eating small frequent meals, limit portion size 5. No plans on endoscopic evaluation at this time 6. Stool studies ordered 7. Continue further medical management per primary medicine team Thank you for this consultation, patient's symptoms resolved, we will sign off at this time. Patient may follow-up with gastroenterology as needed basis. Patient is cleared for discharge from gastroenterology Dr. Kumar I agree with the dictator's note, documented as a scribe by Leigh Ordonez.
[2021-01-05 12:03] LABS: Glucose,Whole Blood 360 mg/dL (75-99)
--- NOTE | 2021-01-05 15:13 | P.PN ---
Progress Note - Text Progress Note Date: 01/05/21 REASON FOR FOLLOWUP: Bilateral feet toes wound/cellulitis . HISTORY: The patient remains to be afebrile. The patient is breathing comfortably. The patient denies having any chest pain, shortness of breath or cough. No abdominal pain. The bilateral feet toes seem to have much improved with Mycolog cream PHYSICAL EXAMINATION: Blood pressure is 125/65, pulse of 65, temperature is 97.7, he is 96%. General description is middle-aged female up in the chair in no distress. Respiratory system reveals unlabored breathing. Lungs clear to auscultation anteriorly. Heart S1, S2. Regular rate and rhythm. Abdomen is soft, no tenderness. Extremities bilateral feet toes excoriation has much improved. LABS: Reviewed DIAGNOSTIC IMPRESSION AND PLAN: Patient with bilateral feet toes dermatitis and diabetic foot ulceration, patient has shown overall clinical improvement with the Mycolog cream clinic suspicion low for secondary bacterial cellulitis hence no need for systemic antibiotic therapy. Patient to continue the Mycolog cream twice a day for about a week
[2021-01-06] MEDS ORDERED: PANTOPRAZOLE 40 MG TABLET PO SCH (07:30)
== END 2021-01-05 14:36 | disposition left against medical advice (07) | DRG 638 ==
LOC: EC 18:47 → 6NMEDSUR 22:05 → OBSVTOIN 01-04 19:39
PROVIDERS: ADMIT Family Medicine; ATTEND Family Medicine
DX: E11.621 Type 2 diabetes mellitus with foot ulcer (principal); L97.518 Non-pressure chronic ulcer of other part of right foot with other specified severity; L97.528 Non-pressure chronic ulcer of other part of left foot with other specified severity; R62.7 Adult failure to thrive; N18.6 End stage renal disease; E11.41 Type 2 diabetes mellitus with diabetic mononeuropathy; L03.032 Cellulitis of left toe; L03.031 Cellulitis of right toe; E11.65 Type 2 diabetes mellitus with hyperglycemia; B36.9 Superficial mycosis, unspecified; F32.9 Major depressive disorder, single episode, unspecified; F41.9 Anxiety disorder, unspecified; F12.90 Cannabis use, unspecified, uncomplicated; R11.2 Nausea with vomiting, unspecified; E11.22 Type 2 diabetes mellitus with diabetic chronic kidney disease; F17.210 Nicotine dependence, cigarettes, uncomplicated; Z51.5 Encounter for palliative care; Z79.899 Other long term (current) drug therapy; Z79.4 Long term (current) use of insulin; Z98.51 Tubal ligation status
CPT/HCPCS: 36415; 74177; 80053; 80061; 83036; 83735; 84100; 84681; 85025; 93005; 96361; 96374; 99285

== ENCOUNTER 2023-03-20 14:13 | Emergency (ER) | payer OTHER ==
[2023-03-20 14:21] VITALS: RESP 18
[2023-03-20] MEDS ORDERED: ONDANSETRON ODT 8 MG TAB.RAPDIS PO STA (15:41)
[2023-03-20] MEDS ORDERED: KETOROLAC 15 MG/ML 1 ML VIAL IVP STA ×2 (15:41→15:55)
[2023-03-20] MEDS ORDERED: SODIUM CHLORIDE 0.9% 1,000 ML IV STA ×2 (15:41→16:19)
[2023-03-20] MEDS ORDERED: METOCLOPRAMIDE 5 MG/ML 2 ML VIAL IVP STA (15:42)
--- NOTE | 2023-03-20 15:44 | ED ---
Abdominal Pain HPI - General Chief Complaint: Abdominal Pain Stated Complaint: ABD PAIN Time Seen by Provider: 03/20/23 15:19 Source: patient, EMS Mode of arrival: EMS Limitations: no limitations - History of Present Illness Initial Comments: 53-year-old female with a past medical history significant for gastroparesis presents to the ED with a chief complaint nausea or vomiting. Patient states for the past few days has had nausea, vomiting, abdominal pain. Patient states symptoms are consistent with her history of gastroparesis. Patient reports that she is commonly seen at outside hospitals however the outside hospital that she typically presents to the has "cases of COVID" patient reports that she would like to avoid that. Denies urinary symptoms. Denies chest pain or shortness of breath. No other complaints. - Related Data Home Medications Medication Instructions Recorded Confirmed Ondansetron [Zofran] 4 mg PO Q8HR PRN 08/12/15 01/03/21 INSULIN LISPRO (HumaLOG) [humaLOG] See Protocol SQ ACHS PRN 01/03/21 01/03/21 Mirtazapine [Remeron] 15 mg PO HS 01/03/21 01/03/21 Pregabalin 75 mg PO TID 01/03/21 01/03/21 Prochlorperazine Suppository 25 mg RECTAL BID PRN 01/03/21 01/03/21 [Compazine] Previous Rx's Medication Instructions Recorded HYDROcodone/APAP 5-325MG [Conrad 1 tab PO Q6HR PRN #20 tab 08/16/15 5-325] Allergies Allergy/AdvReac Type Severity Reaction Status Date / Time No Known Allergies Allergy Verified 01/03/21 21:58 Review of Systems ROS Statement: Those systems with pertinent positive or pertinent negative responses have been documented in the HPI. ROS Other: All systems not noted in ROS Statement are negative. Past Medical History Past Medical History: Diabetes Mellitus, Musculoskeletal Disorder Additional Past Medical History / Comment(s): FREQ NAUSEA, PAINFUL LT SHOULDER "FROZEN SHOULDER", NEUROPATHY PORFIRIO LEGS History of Any Multi-Drug Resistant Organisms: None Reported Past Surgical History: Tubal Ligation Past Anesthesia/Blood Transfusion Reactions: No Reported Reaction Additional Past Anesthesia/Blood Transfusion Reaction / Comment(s): UNK FAMILY HX Past Psychological History: Anxiety, Depression Smoking Status: Current every day smoker Past Alcohol Use History: None Reported Past Drug Use History: Marijuana - Past Family History Father History Unknown: Yes Additional Family Medical History / Comment(s): unknown-adopted Mother History Unknown: Yes Additional Family Medical History / Comment(s): unknown- adopted General Exam Limitations: no limitations General appearance: alert, in no apparent distress ENT exam: Present: mucous membranes moist Respiratory exam: Present: normal lung sounds bilaterally Cardiovascular Exam: Present: regular rate, normal rhythm GI/Abdominal exam: Present: soft (Diffusely tender to palpation. No rebound guarding or rigidity.) Neurological exam: Present: alert, oriented X3 Skin exam: Present: warm, dry Course Vital Signs 03/20/23 03/20/23 14:15 17:02 Temperature 97.6 F Pulse Rate 110 H 106 H Respiratory 18 18 Rate Blood Pressure 173/93 174/89 O2 Sat by Pulse 96 99 Oximetry Medical Decision Making - Medical Decision Making Was pt. sent in by a medical professional or institution (, PA, SUBSCRIPTION CREW LEADER, urgent care, hospital, or correction...) When possible be specific @ -No Did you speak to anyone other than the patient for history (EMS, parent, family, police, friend...)? What history was obtained from this source @ -No Did you review nursing and triage notes (agree or disagree)? Why? @ -I reviewed and agree with nursing and triage notes Were old charts reviewed (outside hosp., previous admission, EMS record, old EKG, old radiological studies, urgent care reports/EKG's, correction records)? Report findings @ -No old charts were reviewed Differential Diagnosis (chest pain, altered mental status, abdominal pain women, abdominal pain men, vaginal bleeding, weakness, fever, dyspnea, syncope, headache, dizziness, GI bleed, back pain, seizure, CVA, palpatations, mental health, musculoskeletal)? @ -Differential Abdominal Pain Women: Appendicitis, Cholecystitis, diverticulosis, ischemic bowel, pancreatitis, hepatitis, UTI, gastroenteritis, AAA, incarcerated hernia, bowel obstruction, constipation, inflammatory bowel, hepatitis, peptic ulcer disease, splenic infarction, perforated viscus, vulvitis, ovarian torsion, PID, kidney stone, placenta abruption, this is not meant to be an all-inclusive list EKG interpreted by me (3pts min.). @ -None X-rays interpreted by me (1pt min.). @ -None done CT interpreted by me (1pt min.). @ -None done U/S interpreted by me (1pt. min.). @ -None done What testing was considered but not performed or refused? (CT, X-rays, U/S, labs)? Why? @ -Imaging studies of the abdomen were considered however at this time patient reports symptoms are consistent with history of gastroparesis. What meds were considered but not given or refused? Why? @ -None Did you discuss the management of the patient with other professionals (professionals i.e. , PA, SUBSCRIPTION CREW LEADER, lab, RT, psych nurse, social work instructor, delivery architect, teacher, evp and chief operating officer, senior case manager)? Give summary @ -No Was smoking cessation discussed for >3mins.? @ -No Was critical care preformed (if so, how long)? @ -No Were there social determinants of health that impacted care today? How? (Temo elessness, low income, unemployed, alcoholism, drug addiction, transportation, low edu. Level, literacy, decrease access to med. care, alf, rehab)? @ -No Was there de-escalation of care discussed even if they declined (Discuss DNR or withdrawal of care, Hospice)? DNR status @ -No What co-morbidities impacted this encounter? (DM, HTN, Smoking, COPD, CAD, Cancer, CVA, ARF, Chemo, Hep., AIDS, mental health diagnosis, sleep apnea, morbid obesity)? @ -Type 1 diabetes Was patient admitted / discharged? Hospital course, mention meds given and route, prescriptions, significant lab abnormalities, going to OR and other pertinent info. @ -Discharge 53-year-old female with past medical history significant for type 1 diabetes and gastroparesis presents to the ED with a chief complaint nausea, vomiting, abdominal pain consistent with her history of gastroparesis. Laboratory studies did show an elevated glucose in the 400s otherwise unremarkable. Patient had complete resolution of her symptoms here with 2 L IV fluids, Zofran, Reglan, Toradol, Tylenol and requesting discharge home at this time. At discharge, patient had improvement of her blood sugar. No evidence of DKA at this time. Patient discharged home in stable condition. Discussed return precautions with patient who verbalizes agreement. Undiagnosed new problem with uncertain prognosis? @ -No Drug Therapy requiring intensive monitoring for toxicity (Heparin, Nitro, Insulin, Cardizem)? @ -No Were any procedures done? @ -No Diagnosis/symptom? @ -Nausea, vomiting, abdominal pain Acute, or Chronic, or Acute on Chronic? @ -Acute on chronic Uncomplicated (without systemic symptoms) or Complicated (systemic symptoms)? @ -Uncomplicated Side effects of treatment? @ -No Exacerbation, Progression, or Severe Exacerbation? @ -No Poses a threat to life or bodily function? How? (Chest pain, USA, PA, pneumonia, PE, COPD, DKA, ARF, appy, cholecystitis, CVA, Diverticulitis, Homicidal, Suicidal, threat to staff... and all critical care pts) @ -No - Lab Data Result diagrams: 03/20/23 15:51 03/20/23 15:51 Lab Results 03/20/23 03/20/23 03/20/23 Range/Units 15:51 15:51 15:51 WBC 7.0 (3.8-10.6) k/uL RBC 4.72 (3.80-5.40) m/uL Hgb 13.3 (11.4-16.0) gm/dL Hct 41.2 (34.0-46.0) % MCV 87.3 (80.0-100.0) fL MCH 28.1 (25.0-35.0) pg MCHC 32.2 (31.0-37.0) g/dL RDW 13.6 (11.5-15.5) % Plt Count 322 (150-450) k/uL MPV 7.9 Neutrophils % 71 % Lymphocytes % 19 % Monocytes % 6 % Eosinophils % 2 % Basophils % 1 % Neutrophils # 5.0 (1.3-7.7) k/uL Lymphocytes # 1.3 (1.0-4.8) k/uL Monocytes # 0.5 (0-1.0) k/uL Eosinophils # 0.1 (0-0.7) k/uL Basophils # 0.1 (0-0.2) k/uL Sodium 132 L (137-145) mmol/L Potassium 5.1 (3.5-5.1) mmol/L Chloride 97 L (98-107) mmol/L Carbon Dioxide 26 (22-30) mmol/L Anion Gap 9 mmol/L BUN 26 H (7-17) mg/dL Creatinine 0.51 L (0.52-1.04) mg/dL Est GFR (CKD-EPI)AfAm >90 (>60 ml/min/1.73 sqM) Est GFR (CKD-EPI)NonAf >90 (>60 ml/min/1.73 sqM) Glucose 415 H (74-99) mg/dL POC Glucose (mg/dL) (70-110) mg/dL POC Glu Diving Board Assembler ID Calcium 8.3 L (8.4-10.2) mg/dL Total Bilirubin 0.3 (0.2-1.3) mg/dL AST 20 (14-36) U/L ALT 15 (4-34) U/L Alkaline Phosphatase 106 (38-126) U/L Total Protein 5.6 L (6.3-8.2) g/dL Albumin 3.1 L (3.5-5.0) g/dL Amylase 75 (30-110) U/L Lipase 231 (23-300) U/L Urine Color Colorless Urine Appearance Clear (Clear) Urine pH 6.5 (5.0-8.0) Ur Specific [place] 1.029 (1.001-1.035) Urine Protein 2+ H (Negative) Urine Glucose (UA) 4+ H (Negative) Urine Ketones 1+ H (Negative) Urine Blood Negative (Negative) Urine Nitrite Negative (Negative) Urine Bilirubin Negative (Negative) Urine Urobilinogen <2.0 (<2.0) mg/dL Ur Leukocyte Esterase Negative (Negative) Urine RBC 1 (0-5) /hpf Urine WBC 1 (0-5) /hpf Ur Squamous Epith Cells <1 (0-4) /hpf Urine Bacteria Rare H (None) /hpf Hyaline Casts 1 (0-2) /lpf 03/20/23 03/20/23 Range/Units 16:51 17:39 WBC (3.8-10.6) k/uL RBC (3.80-5.40) m/uL Hgb (11.4-16.0) gm/dL Hct (34.0-46.0) % MCV (80.0-100.0) fL MCH (25.0-35.0) pg MCHC (31.0-37.0) g/dL RDW (11.5-15.5) % Plt Count (150-450) k/uL MPV Neutrophils % % Lymphocytes % % Monocytes % % Eosinophils % % Basophils % % Neutrophils # (1.3-7.7) k/uL Lymphocytes # (1.0-4.8) k/uL Monocytes # (0-1.0) k/uL Eosinophils # (0-0.7) k/uL Basophils # (0-0.2) k/uL Sodium (137-145) mmol/L Potassium (3.5-5.1) mmol/L Chloride (98-107) mmol/L Carbon Dioxide (22-30) mmol/L Anion Gap mmol/L BUN (7-17) mg/dL Creatinine (0.52-1.04) mg/dL Est GFR (CKD-EPI)AfAm (>60 ml/min/1.73 sqM) Est GFR (CKD-EPI)NonAf (>60 ml/min/1.73 sqM) Glucose (74-99) mg/dL POC Glucose (mg/dL) 352 H 319 H (70-110) mg/dL POC Glu Diving Board Assembler MARCI Santiago Dell Rosalinda Guzman Calcium (8.4-10.2) mg/dL Total Bilirubin (0.2-1.3) mg/dL AST (14-36) U/L ALT (4-34) U/L Alkaline Phosphatase (38-126) U/L Total Protein (6.3-8.2) g/dL Albumin (3.5-5.0) g/dL Amylase (30-110) U/L Lipase (23-300) U/L Urine Color Urine Appearance (Clear) Urine pH (5.0-8.0) Ur Specific [place] (1.001-1.035) Urine Protein (Negative) Urine Glucose (UA) (Negative) Urine Ketones (Negative) Urine Blood (Negative) Urine Nitrite (Negative) Urine Bilirubin (Negative) Urine Urobilinogen (<2.0) mg/dL Ur Leukocyte Esterase (Negative) Urine RBC (0-5) /hpf Urine WBC (0-5) /hpf Ur Squamous Epith Cells (0-4) /hpf Urine Bacteria (None) /hpf Hyaline Casts (0-2) /lpf Disposition Clinical Impression: Nausea & vomiting Disposition: HOME SELF-CARE Condition: Good Additional Instructions: Please return to the Emergency Department if symptoms worsen or any other concerns. Is patient prescribed a controlled substance at d/c from ED?: No Referrals: None,Stated [REFERRING] - 1-2 days Time of Disposition: 18:36
[2023-03-20 16:05] LABS: Basophils # (A) 0.1 k/uL (0-0.2); Basophils % (A) 1 %; Eosinophils # (A) 0.1 k/uL (0-0.7); Eosinophils % (A) 2 %; HCT 41.2 % (34.0-46.0); HGB 13.3 gm/dL (11.4-16.0); Lymphocytes # (A) 1.3 k/uL (1.0-4.8); Lymphocytes % (A) 19 %; MCH 28.1 pg (25.0-35.0); MCHC 32.2 g/dL (31.0-37.0); MCV 87.3 fL (80.0-100.0); Mean Platelet Volume 7.9; Monocytes # (A) 0.5 k/uL (0-1.0); Monocytes % (A) 6 %; Neutrophils % (A) 71 %; Platelet Count 322 k/uL (150-450); RBC 4.72 m/uL (3.80-5.40); RDW 13.6 % (11.5-15.5)
[2023-03-20 16:08] LABS: Appearance,Urine Clear (Clear); Bacteria,Urine Rare /hpf; Bilirubin,Urine Negative (Negative); Blood,Urine Negative (Negative); Color,Urine Colorless; Glucose,Urine (UA) 4+ (Negative); Hyaline Casts,Urine 1 /lpf (0-2); Ketones,Urine 1+ (Negative); Leukocyte Esterase,Urine Negative (Negative); Nitrite,Urine Negative (Negative); PH, Urine 6.5 (5.0-8.0); Protein,Urine 2+ (Negative); RBC,Urine 1 /hpf (0-5); Specific Gravity,Urine 1.029 (1.001-1.035); Squamous Epithelial Cell,Urine <1 /hpf (0-4); Urobilinogen,Urine <2.0 mg/dL (<2.0); WBC,Urine 1 /hpf (0-5)
[2023-03-20 16:13] LABS: ALT 15 U/L (4-34); AST 20 U/L (14-36); African American GFR (CKD) >90 (>60 ml/min/1.73 sqM); Albumin 3.1 g/dL (3.5-5.0); Alkaline Phosphatase 106 U/L (38-126); Amylase 75 U/L (30-110); Anion Gap 9 mmol/L; Blood Urea Nitrogen 26 mg/dL (7-17); Calcium 8.3 mg/dL (8.4-10.2); Carbon Dioxide 26 mmol/L (22-30); Chloride 97 mmol/L (98-107); Glucose 415 mg/dL (74-99); Lipase 231 U/L (23-300); Non-African American GFR(CKD) >90 (>60 ml/min/1.73 sqM); Potassium 5.1 mmol/L (3.5-5.1); Sodium 132 mmol/L (137-145); Total Bilirubin 0.3 mg/dL (0.2-1.3); Total Protein 5.6 g/dL (6.3-8.2)
[2023-03-20] MEDS ORDERED: INSULIN REGULAR 100 UNIT/ML VIAL (IV) IV ONE (16:40)
[2023-03-20] MEDS ORDERED: ONDANSETRON 4 MG/2 ML VIAL IVP STA (16:51)
[2023-03-20 16:52] LABS: Glucose,Whole Blood 352 mg/dL (70-110)
[2023-03-20] MEDS ORDERED: ACETAMINOPHEN TAB 500 MG TAB PO STA (16:52)
[2023-03-20 17:41] LABS: Glucose,Whole Blood 319 mg/dL (70-110)
[2023-03-20 18:35] LABS: Glucose,Whole Blood 267 mg/dL (70-110)
[2023-03-20] MEDS ORDERED: ONDANSETRON 4 MG ODT STARTER PACK 2 TAB BTL PO STA (18:36)
[2023-03-20 18:46] VITALS: BP 137/90; PULSE 78; TEMP 98.4
== END 2023-03-20 18:43 | disposition home or self-care (01) ==
LOC: EC 14:13
DX: R11.2 Nausea with vomiting, unspecified (principal); R10.9 Unspecified abdominal pain; E10.43 Type 1 diabetes mellitus with diabetic autonomic (poly)neuropathy; K31.84 Gastroparesis; F17.200 Nicotine dependence, unspecified, uncomplicated; E10.40 Type 1 diabetes mellitus with diabetic neuropathy, unspecified; Z86.59 Personal history of other mental and behavioral disorders; Z79.4 Long term (current) use of insulin
CPT/HCPCS: 36415; 80053; 82150; 83690; 85025; 81001; 99284; 96374; 96375; 96361; J2765; J2405; J1885; S0119

== ENCOUNTER 2023-05-12 14:23 | Observation (INO) | payer OTHER ==
[2023-05-12] MEDS ORDERED: SODIUM CHLORIDE 0.9% 2,000 ML IV STA (14:27)
[2023-05-12 14:40] LABS: Glucose,Whole Blood 428 mg/dL (70-110)
[2023-05-12] MEDS ORDERED: diphenhydrAMINE 50 MG/ML 1 ML VIAL IVP STA (14:48)
[2023-05-12] MEDS ORDERED: PANTOPRAZOLE 40 MG/10 ML VIAL IVP STA (14:48)
[2023-05-12] MEDS ORDERED: METOCLOPRAMIDE 5 MG/ML 2 ML VIAL IVP STA (14:48)
[2023-05-12 15:20] LABS: Basophils # (A) 0.1 k/uL (0-0.2); Basophils % (A) 1 %; Eosinophils # (A) 0.2 k/uL (0-0.7); Eosinophils % (A) 3 %; HCT 37.2 % (34.0-46.0); HGB 12.3 gm/dL (11.4-16.0); Lymphocytes # (A) 1.7 k/uL (1.0-4.8); Lymphocytes % (A) 21 %; MCH 28.8 pg (25.0-35.0); MCHC 33.2 g/dL (31.0-37.0); MCV 86.8 fL (80.0-100.0); Mean Platelet Volume 7.8; Monocytes # (A) 0.5 k/uL (0-1.0); Monocytes % (A) 6 %; Neutrophils # (A) 5.6 k/uL (1.3-7.7); Neutrophils % (A) 69 %; Platelet Count 356 k/uL (150-450); RBC 4.28 m/uL (3.80-5.40); RDW 15.2 % (11.5-15.5); WBC 8.2 k/uL (3.8-10.6)
[2023-05-12 15:48] LABS: ALT 15 U/L (4-34); AST 16 U/L (14-36); African American GFR (CKD) >90 (>60 ml/min/1.73 sqM); Albumin 2.6 g/dL (3.5-5.0); Alkaline Phosphatase 83 U/L (38-126); Amylase 83 U/L (30-110); Anion Gap 8 mmol/L; Blood Urea Nitrogen 20 mg/dL (7-17); Carbon Dioxide 16 mmol/L (22-30); Chloride 105 mmol/L (98-107); Glucose 367 mg/dL (74-99); Lipase 704 U/L (23-300); Non-African American GFR(CKD) >90 (>60 ml/min/1.73 sqM); Potassium 4.4 mmol/L (3.5-5.1); Sodium 129 mmol/L (137-145); Total Bilirubin 0.2 mg/dL (0.2-1.3)
[2023-05-12 16:54] LABS: VBG PH 7.36 (7.31-7.41)
--- NOTE | 2023-05-12 17:06 | XR ---
EXAMINATION TYPE: XR chest 1V portable DATE OF EXAM: 05/12/2023 3:59 PM CLINICAL INDICATION:Female, 53 years old with history of abdominal pain; [facility] COMPARISON: Chest radiographs from 08/13/2015 TECHNIQUE: XR chest 1V portable Frontal view of the chest. FINDINGS: Lungs/Pleura: There is no evidence of pleural effusion, focal consolidation, or pneumothorax. Pulmonary vascularity: Unremarkable. Heart/mediastinum: Cardiomediastinal silhouette is unremarkable. Musculoskeletal: No acute osseous pathology. IMPRESSION: No acute cardiopulmonary disease/process.
[2023-05-12] MEDS ORDERED: MORPHINE SULFATE 4 MG/ML SYRINGE IVP STA (17:30)
[2023-05-12 18:01] LABS: Appearance,Urine Clear (Clear); Bilirubin,Urine Negative (Negative); Blood,Urine Negative (Negative); Color,Urine Colorless; Glucose,Urine (UA) 4+ (Negative); Ketones,Urine Negative (Negative); Leukocyte Esterase,Urine Small (Negative); Mucus,Urine Rare /hpf; Nitrite,Urine Negative (Negative); PH, Urine 6.5 (5.0-8.0); Protein,Urine 2+ (Negative); RBC,Urine 2 /hpf (0-5); Specific Gravity,Urine 1.019 (1.001-1.035); Squamous Epithelial Cell,Urine 1 /hpf (0-4); Urobilinogen,Urine <2.0 mg/dL (<2.0); WBC,Urine 15 /hpf (0-5)
--- NOTE | 2023-05-12 19:05 | CT ---
EXAMINATION TYPE: CT abdomen pelvis w con CT DLP: 410.8 mGycm, Automated exposure control for dose reduction was used. DATE OF EXAM: 05/12/2023 5:15 PM COMPARISON: CT abdomen pelvis 01/03/2021 CLINICAL INDICATION:Female, 53 years old with history of abd pain, pancreatitis; abd pain, pancreatit is and elevated glucose TECHNIQUE: Axial CT of the abdomen and pelvis. Sagittal and coronal reformats were created on a [employer] workstation. Contrast used:50ml mL of Isovue 300 with IV Contrast, (none if empty) Oral contrast used: without Oral Contrast (none if empty) FINDINGS: LOWER CHEST: Mild bibasilar subsegmental atelectasis. Normal size heart. No pericardial or pleural ef fusion. ABDOMEN LIVER: Unremarkable GALLBLADDER AND BILE DUCTS: Gallbladder appears contracted. No biliary dilatation is seen. PANCREAS: Partially obscured interface between the pancreatic head and duodenum, can be seen with maame ove pancreatitis. Otherwise pancreatic parenchyma enhances normally without evidence of necrosis. No clear-cut peripancreatic inflammation otherwise, but there is question mild haziness of the fat which could be seen with mild pancreatitis. No peripancreatic fluid collection. SPLEEN: Unremarkable. ADRENAL GLANDS: Unremarkable. KIDNEYS AND URETERS: Kidneys enhance symmetrically. There is no evidence of hydronephrosis. Delayed i maging shows no additional abnormality. PELVIS BLADDER: Severely distended, the dome of the bladder reaches the upper L5 level. REPRODUCTIVE: Uterus grossly unremarkable by CT. Ovaries are not clearly identified. ABDOMEN & PELVIS STOMACH AND BOWEL: Question mild thickening of the distal esophageal wall. There also appears to be m ild thickening of the gastric and duodenal begum. The more distal small bowel loops also appear mildl y thickened. No bowel wall pneumatosis is identified. The appendix appears within normal limits. [place] n is not well assessed but mild generalized wall thickening cannot be excluded. There is no evidence of bowel obstruction. PERITONEUM/RETROPERITONEUM: No evidence of pneumoperitoneum or free fluid. VASCULATURE: Moderate to heavy calcification of the abdominal aorta and branches. No evidence of AAA. Mild narrowing of the origin of the superior mesenteric artery. Single bilateral renal arteries with out significant stenosis. MUSCULOSKELETAL: Generally mild diffuse degenerative changes. No clearly acute bony abnormalities. Th ere is moderate anterior wedging of the T12 vertebral body with superior and inferior endplate Schmor l's nodes, without definite acute fracture lucency is seen. There is mild associated gibbus deformity at this level, with mild retropulsion of the posterior wall likely causing mild narrowing of the can al and may indent the anterior thecal sac. Additionally there is mild height loss along the superior endplate L4 with broad-based sclerotic marginated Schmorl's node, without acute fracture lucency seen . Neither of these deformities were present on the 01/03/2021 CT. LYMPH NODES: No gross evidence for lymphadenopathy. SOFT TISSUE/ABDOMINAL WALL: Unremarkable IMPRESSION: 1. Findings can suggest groove pancreatitis. Question mild haziness of the pancreatic fat which coul d be seen with mild pancreatitis. Correlate clinically with labs. 2. Mild wall thickening suggested of the distal esophagus, stomach, duodenum, and more distal small bowel. Mild colonic wall thickening not excluded. Findings can be seen with nonspecific gastroenterit is. No evidence of bowel obstruction. 3. Severely distended urinary bladder. 4. Moderate to heavy calcification of the abdominal aorta and branches. No evidence of AAA. 5. Moderate anterior wedge deformity of the T12 vertebral body, and mild height loss along the super ior endplate of L4, neither of which were present on 01/03/2021 CT. The exact age is indeterminate, ho wever favored to be chronic. Correlate for any back pain.
[2023-05-12 19:49] LABS: Glucose,Whole Blood 285 mg/dL (70-110)
[2023-05-12] MEDS ORDERED: NALOXONE 0.4 MG/ML 1 ML VIAL IV PRN (20:08)
[2023-05-12] MEDS: SODIUM CHLORIDE 0.9% 1,000 ML IV SCH (20:32)
[2023-05-12] MEDS: HEPARIN SODIUM,PORCINE 5,000 UNIT/ML 1 ML VIAL SQ SCH (20:36)
[2023-05-12] MEDS: ONDANSETRON 4 MG/2 ML VIAL IVP PRN (20:37)
[2023-05-12] MEDS: MORPHINE SULFATE 4 MG/ML SYRINGE IV PRN (20:40)
--- NOTE | 2023-05-12 21:16 | ED ---
General Adult HPI - General Chief complaint: Recheck/Abnormal Lab/Rx Stated complaint: Hyperglycemia Time Seen by Provider: 05/12/23 14:26 Source: patient, EMS, RN notes reviewed, old records reviewed Mode of arrival: EMS - History of Present Illness Initial comments: Patient is a 53-year-old female with past medical history remarkable for diabetes presents emergency department over concern for possible DKA. Patient's blood sugars are reading high. She is been having nausea and vomiting and feeling unwell with epigastric abdominal discomfort for 1-2 days. I consulted prior to arrival. Nurses nonbilious nonbloody emesis. Denies diarrhea. Denies any chest pain or shortness of breath. No other acute complaints at this time. Presents for further evaluation at this time. - Related Data Home Medications Medication Instructions Recorded Confirmed Ondansetron [Zofran] 4 mg PO DAILY 08/12/15 05/12/23 ALPRAZolam [Xanax] 0.25 mg PO BID 05/12/23 05/12/23 Atorvastatin [Lipitor] 20 mg PO DAILY 05/12/23 05/12/23 Budesonide [Pulmicort] 0.5 mg INHALATION RT-BID 05/12/23 05/12/23 DULoxetine HCL [Cymbalta] 30 mg PO DAILY 05/12/23 05/12/23 HYDROcodone/APAP 5-325MG [[place] 1 tab PO BID 05/12/23 05/12/23 5-325] Insulin Glargine,Hum.rec.anlog 9 units SQ DAILY 05/12/23 05/12/23 [Lantus Solostar Pen] Insulin Lispro [humaLOG Kwikpen] 2 unit SQ AC-TID 05/12/23 05/12/23 Insulin Lispro [humaLOG Kwikpen] See Protocol SQ AC-TID 05/12/23 05/12/23 Ipratropium-Albuterol Nebulize 3 ml INHALATION RT-BID 05/12/23 05/12/23 [Duoneb 0.5 mg-3 mg/3 ml Soln] Magnesium Oxide [Mag-Ox] 400 mg PO DAILY 05/12/23 05/12/23 Metoclopramide [Reglan] 10 mg PO TID 05/12/23 05/12/23 Mirtazapine [Remeron] 30 mg PO HS 05/12/23 05/12/23 Omeprazole 20 mg PO DAILY 05/12/23 05/12/23 Potassium Chloride ER [K-Dur 20] 20 meq PO DAILY 05/12/23 05/12/23 amLODIPine [Norvasc] 5 mg PO BID 05/12/23 05/12/23 Allergies Allergy/AdvReac Type Severity Reaction Status Date / Time fentanyl Allergy Unknown Verified 05/12/23 19:44 Review of Systems ROS Statement: Those systems with pertinent positive or pertinent negative responses have been documented in the HPI. Review of Systems: CONST: Denies fever EYES: Denies blurry vision ENT: Denies nasal congestion C/V: Denies Chest pain RESP: Denies shortness of breath GI: Endorses abdominal pain : Denies dysuria SKIN: Denies rash. MSK: Denies joint pain. NEURO: Denies headache ROS Other: All systems not noted in ROS Statement are negative. Past Medical History Past Medical History: Diabetes Mellitus, Musculoskeletal Disorder Additional Past Medical History / Comment(s): FREQ NAUSEA, PAINFUL LT SHOULDER "FROZEN SHOULDER", NEUROPATHY PORFIRIO LEGS History of Any Multi-Drug Resistant Organisms: None Reported Past Surgical History: Tubal Ligation Past Anesthesia/Blood Transfusion Reactions: No Reported Reaction Additional Past Anesthesia/Blood Transfusion Reaction / Comment(s): UNK FAMILY HX Past Psychological History: Anxiety, Depression Smoking Status: Current every day smoker Past Alcohol Use History: None Reported Past Drug Use History: Marijuana - Past Family History Father History Unknown: Yes Additional Family Medical History / Comment(s): unknown-adopted Mother History Unknown: Yes Additional Family Medical History / Comment(s): unknown- adopted General Exam - General Exam Comments Initial Comments: General: Appears in mild to moderate distress secondary to abdominal pain. HEAD: Normal with no signs of head trauma. EYES: PERRLA, EOMI, conjunctiva normal, no discharge. ENT: Hearing grossly intact, normal oropharynx. RESPIRATORY: Clear breath sounds bilaterally. No wheezes, rales, or rhonchi. C/V: Tachycardia. S1 and S2 auscultated, no significant pitting edema, peripheral pulses 2+ and intact throughout ABD: Abd is soft, nontender, nondistended EXT: Normal range of motion, no obvious deformity SKIN: No rashes or lesions observed on exposed skin. NEURO: Alert and Oriented 4. Course Vital Signs 05/12/23 05/12/23 05/12/23 14:25 14:32 15:32 Temperature 96.9 F L Pulse Rate 125 H 114 H Respiratory 18 18 Rate Blood Pressure 185/113 156/117 O2 Sat by Pulse 100 98 Oximetry 05/12/23 05/12/23 05/12/23 16:00 16:10 16:20 Temperature Pulse Rate 128 H 126 H 125 H Respiratory Rate Blood Pressure 192/118 184/116 O2 Sat by Pulse 98 98 99 Oximetry 05/12/23 05/12/23 05/12/23 16:30 16:40 16:50 Temperature Pulse Rate 126 H 125 H 122 H Respiratory Rate Blood Pressure 178/107 157/89 O2 Sat by Pulse 98 98 98 Oximetry 05/12/23 19:50 Temperature Pulse Rate 104 H Respiratory 17 Rate Blood Pressure 143/89 O2 Sat by Pulse 98 Oximetry Medical Decision Making - Medical Decision Making Was pt. sent in by a medical professional or institution (, PA, SENIOR SUPPORT ENGINEER, urgent care, hospital, or fdc...) When possible be specific @ -No Did you speak to anyone other than the patient for history (EMS, parent, family, police, friend...)? What history was obtained from this source @ -No Did you review nursing and triage notes (agree or disagree)? Why? @ -I reviewed and agree with nursing and triage notes Were old charts reviewed (outside hosp., previous admission, EMS record, old EKG, old radiological studies, urgent care reports/EKG's, fdc records)? Report findings @ -Old charts reviewed Differential Diagnosis (chest pain, altered mental status, abdominal pain women, abdominal pain men, vaginal bleeding, weakness, fever, dyspnea, syncope, headache, dizziness, GI bleed, back pain, seizure, CVA, palpatations, mental health, musculoskeletal)? @ -Differential Abdominal Pain Women: Appendicitis, Cholecystitis, diverticulosis, ischemic bowel, pancreatitis, hepatitis, UTI, gastroenteritis, AAA, incarcerated hernia, bowel obstruction, constipation, inflammatory bowel, hepatitis, peptic ulcer disease, splenic infarction, perforated viscus, vulvitis, ovarian torsion, PID, kidney stone, placenta abruption, this is not meant to be an all-inclusive list EKG interpreted by me (3pts min.). @ -As above X-rays interpreted by me (1pt min.). @ -X-ray shows no obvious acute cardio pulmonary process. CT interpreted by me (1pt min.). @ -CT abdomen and pelvis reveals findings consistent with acute pancreatitis. Appears to be uncomplicated. No obvious abscess or cyst. Also findings concerning for gastroenteritis. U/S interpreted by me (1pt. min.). @ -None done What testing was considered but not performed or refused? (CT, X-rays, U/S, labs)? Why? @ -None What meds were considered but not given or refused? Why? @ -None Did you discuss the management of the patient with other professionals (professionals i.e. DrLisa, PA, SENIOR SUPPORT ENGINEER, lab, RT, psych nurse, social media project manager, chef french, teacher, district resource officer, window caser)? Give summary @ - I discussed the case with the admitting physician Dr. Pike who requested I consult GI Dr. Bear. He accepted the admission. Was smoking cessation discussed for >3mins.? @ -No Was critical care preformed (if so, how long)? @ -No Were there social determinants of health that impacted care today? How? (Homelessness, low income, unemployed, alcoholism, drug addiction, transportation, low edu. Level, literacy, decrease access to med. care, long-term, rehab)? @ -No Was there de-escalation of care discussed even if they declined (Discuss DNR or withdrawal of care, Hospice)? DNR status @ -No What co-morbidities impacted this encounter? (DM, HTN, Smoking, COPD, CAD, Cancer, CVA, ARF, Chemo, Hep., AIDS, mental health diagnosis, sleep apnea, morbid obesity)? @ -None Was patient admitted / discharged? Hospital course, mention meds given and route, prescriptions, significant lab abnormalities, going to OR and other pertinent info. @ -Based on patient's presentation and physical exam, presents with abdominal pain and hyperglycemia in the setting of insulin dependent diabetes. We will obtain abdominal laboratory studies, CT imaging. She will be given multiple fluid boluses. Patient was in agreement this plan. She is also given analgesia medications, nausea medications. Vital signs are within acceptable limits except for the tachycardia likely secondary to dehydration and nausea. Patient's labs remarkable for findings consistent with acute pancreatitis. Mild hyponatremia of 129. No evidence of diabetic ketoacidosis. No ketones in the urine. No anion gap metabolic acidosis. Hyperglycemia is improving. Lipase is elevated to 704 consistent with acute pancreatitis. Remainder the labs are within acceptable limits. Imaging remarkable for findings consistent with gastroenteritis and acute pancreatitis. I discussed the results of the patient. She still having pain as well as nausea and vomiting. We will admit her for intractable abdominal pain, nausea, vo miting in setting of acute pancreatitis. Blood sugars are improving. Patient in agreement this plan. I discussed the case with the admitting physician Dr. Pike who requested I consult GI Dr. Bear. He accepted the admission. Undiagnosed new problem with uncertain prognosis? @ -No Drug Therapy requiring intensive monitoring for toxicity (Heparin, Nitro, Insulin, Cardizem)? @ -No Were any procedures done? @ -No Diagnosis/symptom? @ -Acute pancreatitis, intractable abdominal pain, intractable nausea and vomiting, hyperglycemia Acute, or Chronic, or Acute on Chronic? @ -Acute Uncomplicated (without systemic symptoms) or Complicated (systemic symptoms)? @ -Complicated Side effects of treatment? @ -No Exacerbation, Progression, or Severe Exacerbation? @ -No Poses a threat to life or bodily function? How? (Chest pain, [place], NH, pneumonia, PE, COPD, DKA, ARF, appy, cholecystitis, CVA, Diverticulitis, Homicidal, Suicidal, threat to staff... and all critical care pts) @ -yes - Lab Data Result diagrams: 05/12/23 14:54 05/12/23 14:54 Lab Results 05/12/23 05/12/23 05/12/23 Range/Units 14:38 14:54 14:54 WBC 8.2 (3.8-10.6) k/uL RBC 4.28 (3.80-5.40) m/uL Hgb 12.3 (11.4-16.0) gm/dL Hct 37.2 (34.0-46.0) % MCV 86.8 (80.0-100.0) fL MCH 28.8 (25.0-35.0) pg MCHC 33.2 (31.0-37.0) g/dL RDW 15.2 (11.5-15.5) % Plt Count 356 (150-450) k/uL MPV 7.8 Neutrophils % 69 % Lymphocytes % 21 % Monocytes % 6 % Eosinophils % 3 % Basophils % 1 % Neutrophils # 5.6 (1.3-7.7) k/uL Lymphocytes # 1.7 (1.0-4.8) k/uL Monocytes # 0.5 (0-1.0) k/uL Eosinophils # 0.2 (0-0.7) k/uL Basophils # 0.1 (0-0.2) k/uL VBG pH (7.31-7.41) VBG pCO2 (37-51) mmHg VBG HCO3 (24-28) mmol/L Sodium (137-145) mmol/L Potassium (3.5-5.1) mmol/L Chloride (98-107) mmol/L Carbon Dioxide (22-30) mmol/L Anion Gap mmol/L BUN (7-17) mg/dL Creatinine (0.52-1.04) mg/dL Est GFR (CKD-EPI)AfAm (>60 ml/min/1.73 sqM) Est GFR (CKD-EPI)NonAf (>60 ml/min/1.73 sqM) Glucose (74-99) mg/dL POC Glucose (mg/dL) 428 H (70-110) mg/dL POC Glu Sales Service Supervisor ID Chloe Kovacs Plasma Lactic Acid Travis (0.7-2.0) mmol/L Calcium (8.4-10.2) mg/dL Total Bilirubin (0.2-1.3) mg/dL AST (14-36) U/L ALT (4-34) U/L Alkaline Phosphatase (38-126) U/L Total Protein (6.3-8.2) g/dL Albumin (3.5-5.0) g/dL Amylase (30-110) U/L Lipase (23-300) U/L Urine Color Colorless Urine Appearance Clear (Clear) Urine pH 6.5 (5.0-8.0) Ur Specific [place] 1.019 (1.001-1.035) Urine Protein 2+ H (Negative) Urine Glucose (UA) 4+ H (Negative) Urine Ketones Negative (Negative) Urine Blood Negative (Negative) Urine Nitrite Negative (Negative) Urine Bilirubin Negative (Negative) Urine Urobilinogen <2.0 (<2.0) mg/dL Ur Leukocyte Esterase Small H (Negative) Urine RBC 2 (0-5) /hpf Urine WBC 15 H (0-5) /hpf Ur Squamous Epith Cells 1 (0-4) /hpf Urine Mucus Rare H (None) /hpf Acetone, Qual (Negative) Influenza Type A (PCR) (Not Detectd) Influenza Type B (PCR) (Not Detectd) RSV (PCR) (Not Detectd) SARS-CoV-2 (PCR) (Not Detectd) 05/12/23 05/12/23 05/12/23 Range/Units 14:54 14:54 14:54 WBC (3.8-10.6) k/uL RBC (3.80-5.40) m/uL Hgb (11.4-16.0) gm/dL Hct (34.0-46.0) % MCV (80.0-100.0) fL MCH (25.0-35.0) pg MCHC (31.0-37.0) g/dL RDW (11.5-15.5) % Plt Count (150-450) k/uL MPV Neutrophils % % Lymphocytes % % Monocytes % % Eosinophils % % Basophils % % Neutrophils # (1.3-7.7) k/uL Lymphocytes # (1.0-4.8) k/uL Monocytes # (0-1.0) k/uL Eosinophils # (0-0.7) k/uL Basophils # (0-0.2) k/uL VBG pH (7.31-7.41) VBG pCO2 (37-51) mmHg VBG HCO3 (24-28) mmol/L Sodium 129 L (137-145) mmol/L Potassium 4.4 (3.5-5.1) mmol/L Chloride 105 (98-107) mmol/L Carbon Dioxide 16 L (22-30) mmol/L Anion Gap 8 mmol/L BUN 20 H (7-17) mg/dL Creatinine 0.74 (0.52-1.04) mg/dL Est GFR (CKD-EPI)AfAm >90 (>60 ml/min/1.73 sqM) Est GFR (CKD-EPI)NonAf >90 (>60 ml/min/1.73 sqM) Glucose 367 H (74-99) mg/dL POC Glucose (mg/dL) (70-110) mg/dL POC Glu Sales Service Supervisor ID Plasma Lactic Acid Travis 0.7 (0.7-2.0) mmol/L Calcium 7.0 L (8.4-10.2) mg/dL Total Bilirubin 0.2 (0.2-1.3) mg/dL AST 16 (14-36) U/L ALT 15 (4-34) U/L Alkaline Phosphatase 83 (38-126) U/L Total Protein 5.0 L (6.3-8.2) g/dL Albumin 2.6 L (3.5-5.0) g/dL Amylase 83 (30-110) U/L Lipase 704 H (23-300) U/L Urine Color Urine Appearance (Clear) Urine pH (5.0-8.0) Ur Specific [place] (1.001-1.035) Urine Protein (Negative) Urine Glucose (UA) (Negative) Urine Ketones (Negative) Urine Blood (Negative) Urine Nitrite (Negative) Urine Bilirubin (Negative) Urine Urobilinogen (<2.0) mg/dL Ur Leukocyte Esterase (Negative) Urine RBC (0-5) /hpf Urine WBC (0-5) /hpf Ur Squamous Epith Cells (0-4) /hpf Urine Mucus (None) /hpf Acetone, Qual Positive (Negative) Influenza Type A (PCR) Not Detected (Not Detectd) Influenza Type B (PCR) Not Detected (Not Detectd) RSV (PCR) Not Detected (Not Detectd) SARS-CoV-2 (PCR) Not Detected (Not Detectd) 05/12/23 05/12/23 Range/Units 16:48 19:48 WBC (3.8-10.6) k/uL RBC (3.80-5.40) m/uL Hgb (11.4-16.0) gm/dL Hct (34.0-46.0) % MCV (80.0-100.0) fL MCH (25.0-35.0) pg MCHC (31.0-37.0) g/dL RDW (11.5-15.5) % Plt Count (150-450) k/uL MPV Neutrophils % % Lymphocytes % % Monocytes % % Eosinophils % % Basophils % % Neutrophils # (1.3-7.7) k/uL Lymphocytes # (1.0-4.8) k/uL Monocytes # (0-1.0) k/uL Eosinophils # (0-0.7) k/uL Basophils # (0-0.2) k/uL VBG pH 7.36 (7.31-7.41) VBG pCO2 30 L (37-51) mmHg VBG HCO3 17 L (24-28) mmol/L Sodium (137-145) mmol/L Potassium (3.5-5.1) mmol/L Chloride (98-107) mmol/L Carbon Dioxide (22-30) mmol/L Anion Gap mmol/L BUN (7-17) mg/dL Creatinine (0.52-1.04) mg/dL Est GFR (CKD-EPI)AfAm (>60 ml/min/1.73 sqM) Est GFR (CKD-EPI)NonAf (>60 ml/min/1.73 sqM) Glucose (74-99) mg/dL POC Glucose (mg/dL) 285 H (70-110) mg/dL POC Glu Sales Service Supervisor ID Mellisa, Joanne Plasma Lactic Acid Travis (0.7-2.0) mmol/L Calcium (8.4-10.2) mg/dL Total Bilirubin (0.2-1.3) mg/dL AST (14-36) U/L ALT (4-34) U/L Alkaline Phosphatase (38-126) U/L Total Protein (6.3-8.2) g/dL Albumin (3.5-5.0) g/dL Amylase (30-110) U/L Lipase (23-300) U/L Urine Color Urine Appearance (Clear) Urine pH (5.0-8.0) Ur Specific [place] (1.001-1.035) Urine Protein (Negative) Urine Glucose (UA) (Negative) Urine Ketones (Negative) Urine Blood (Negative) Urine Nitrite (Negative) Urine Bilirubin (Negative) Urine Urobilinogen (<2.0) mg/dL Ur Leukocyte Esterase (Negative) Urine RBC (0-5) /hpf Urine WBC (0-5) /hpf Ur Squamous Epith Cells (0-4) /hpf Urine Mucus (None) /hpf Acetone, Qual (Negative) Influenza Type A (PCR) (Not Detectd) Influenza Type B (PCR) (Not Detectd) RSV (PCR) (Not Detectd) SARS-CoV-2 (PCR) (Not Detectd) - EKG Data -: EKG Interpreted by Me EKG Comments: 12-lead Electrocardiogram Interpretation Note EKG was reviewed and interpreted by myself. 12-lead ECG performed at 1445 is interpreted by me as revealing sinus tachycardia at a rate of 121 beats per minute. Right axis deviation. [place] interval is 100 ms, QRS duration 79 ms, QTc is 410 ms.. There were no ST or T wave abnormalities to suggest myocardial ischemia or injury. R wave progression across the precordium was delayed. Disposition Clinical Impression: Acute pancreatitis, Nausea and vomiting, Intractable abdominal pain, Hyperglycemia Disposition: ADMITTED IP TO THIS HOSP Condition: Stable Referrals: Dell Pike MD [Primary Care Provider] - 1-2 days Time of Disposition: 18:59
[2023-05-12] MEDS ORDERED: DEXTROSE 50% SYRINGE 50 ML IVP PRN ×2 (21:17)
[2023-05-12] MEDS: METOCLOPRAMIDE 10 MG TAB PO SCH (22:17)
[2023-05-13] MEDS: MORPHINE SULFATE 4 MG/ML SYRINGE IV PRN ×5 (02:43→20:04)
[2023-05-13] MEDS: ONDANSETRON 4 MG/2 ML VIAL IVP PRN ×3 (07:53→22:23)
[2023-05-13 07:56] LABS: Glucose,Whole Blood 247 mg/dL (70-110)
[2023-05-13] MEDS: INSULIN ASPART (NovoLOG) 100 UNIT/ML VIAL SQ SCH ×4 (08:16→18:07)
[2023-05-13] MEDS: ATORVASTATIN 20 MG TAB PO SCH (08:54)
[2023-05-13] MEDS: amLODIPine 5 MG TAB PO SCH ×2 (08:54→22:23)
[2023-05-13] MEDS: ALPRAZolam 0.25 MG TAB PO SCH ×2 (08:54→22:25)
[2023-05-13] MEDS: METOCLOPRAMIDE 10 MG TAB PO SCH (08:55)
[2023-05-13] MEDS: DULoxetine HCL 30 MG CAPSULE.DR PO SCH (08:55)
[2023-05-13] MEDS: SODIUM CHLORIDE 0.9% 1,000 ML IV SCH ×2 (08:55→22:22)
[2023-05-13] MEDS: HEPARIN SODIUM,PORCINE 5,000 UNIT/ML 1 ML VIAL SQ SCH ×2 (08:55→22:23)
[2023-05-13] MEDS: MAGNESIUM OXIDE 400 MG TAB PO SCH (08:55)
[2023-05-13] MEDS: POTASSIUM CHLORIDE ER 20 MEQ TAB.ER PO SCH (08:55)
[2023-05-13 09:08] LABS: ALT 15 U/L (4-34); AST 25 U/L (14-36); African American GFR (CKD) >90 (>60 ml/min/1.73 sqM); Albumin/Globulin Ratio 1.1; Alkaline Phosphatase 90 U/L (38-126); Anion Gap 11 mmol/L; Blood Urea Nitrogen 15 mg/dL (7-17); Calcium 8.5 mg/dL (8.4-10.2); Carbon Dioxide 15 mmol/L (22-30); Chloride 105 mmol/L (98-107); Globulin 2.7 g/dL; Glucose 247 mg/dL (74-99); Non-African American GFR(CKD) >90 (>60 ml/min/1.73 sqM); Potassium 4.7 mmol/L (3.5-5.1); Sodium 131 mmol/L (137-145); Total Bilirubin 0.4 mg/dL (0.2-1.3); Total Protein 5.7 g/dL (6.3-8.2)
[2023-05-13 09:09] LABS: Basophils % (A) 1 %; Eosinophils # (A) 0.2 k/uL (0-0.7); Eosinophils % (A) 3 %; HCT 39.5 % (34.0-46.0); HGB 12.9 gm/dL (11.4-16.0); Lymphocytes # (A) 1.5 k/uL (1.0-4.8); Lymphocytes % (A) 23 %; MCH 28.3 pg (25.0-35.0); MCHC 32.6 g/dL (31.0-37.0); MCV 86.8 fL (80.0-100.0); Mean Platelet Volume 8.8; Monocytes # (A) 0.4 k/uL (0-1.0); Monocytes % (A) 6 %; Neutrophils # (A) 4.2 k/uL (1.3-7.7); Neutrophils % (A) 66 %; Platelet Count 377 k/uL (150-450); RBC 4.55 m/uL (3.80-5.40); RDW 15.3 % (11.5-15.5); WBC 6.4 k/uL (3.8-10.6)
[2023-05-13] MEDS: PANTOPRAZOLE 40 MG/10 ML VIAL IVP SCH ×2 (09:20→20:27)
[2023-05-13] MEDS: METOCLOPRAMIDE 5 MG/ML 2 ML VIAL IM PRN ×2 (09:20→18:22)
[2023-05-13] MEDS ORDERED: TRIMETHOBENZAMIDE 100 MG/ML 2 ML VIAL IM PRN (11:41)
[2023-05-13] MEDS: IPRATROPIUM-ALBUTEROL 3 ML NEB INHALATION SCH ×2 (11:53→20:09)
[2023-05-13] MEDS: BUDESONIDE 0.5 MG/2 ML NEBU INHALATION SCH ×2 (11:53→20:09)
[2023-05-13 14:38] LABS: Glucose,Whole Blood 212 mg/dL (70-110)
[2023-05-13 15:31] VITALS: BMI 16.3
--- NOTE | 2023-05-13 16:32 | P.CONS ---
History of Present Illness - Reason for Consult Consult date: 05/13/23 Acute Pancreatitis Requesting physician: Isaias Mejias - Chief Complaint Nausea and vomiting, hyperglycemia - History of Present Illness This is a 53-year-old female who presented to the emergency department with hyperglycemia and nausea and vomiting. She has a past medical history including insulin-dependent diabetes not well-controlled, states that she recently got an insulin pump however it is not activated yet. Patient was admitted for diabetic ketoacidosis, with intractable nausea and vomiting. Patient was also complaining of abdominal pain and had elevation in her lipase at 704 with a repeat later in the evening R Allen down to 277. Patient denies any previous history of pancreatitis. She had a CT of the abdomen and pelvis with contrast that report of findings can suggest groove pancreatitis. Question mild haziness of the pancreatic bed which could be seen with mild pancreatitis. Gastroenterology was consulted for acute pancreatitis. She denies any new changes in her medication. States that her sugars have run high in the past and she has had diabetic ketoacidosis in the past. She continues to have continued nausea and vomiting. No hematemesis or emesis reported. States she has not had any recent sick contacts, she's been afebrile. Review of Systems REVIEW OF SYSTEMS: CARDIOPULMONARY: No chest pain or shortness of breath. Gastrointestinal: Patient reports diffuse abdominal pain. Intractable nausea and vomiting. No hematemesis, coffee-ground emesis. No rectal bleeding, or melena. GENITOURINARY: No dysuria or hematuria. MUSCULOSKELETAL: Reports normal range of motion. SKIN: No rashes. No jaundice. ENDOCRINE: No chills, fevers. No excessive weight gain or loss. No polydipsia or polyuria. PSYCHIATRIC: Unremarkable. NEUROLOGY: No change in mental status. Denies dizziness, headache. ENT: Vision unremarkable. CONSTITUTIONAL: No recent weight loss. No fever, chills, night sweats. Past Medical History Past Medical History: Diabetes Mellitus, Musculoskeletal Disorder Additional Past Medical History / Comment(s): FREQ NAUSEA, PAINFUL LT SHOULDER "FROZEN SHOULDER", NEUROPATHY PORFIRIO LEGS History of Any Multi-Drug Resistant Organisms: None Reported Past Surgical History: Tubal Ligation Past Anesthesia/Blood Transfusion Reactions: No Reported Reaction Additional Past Anesthesia/Blood Transfusion Reaction / Comm: UNK FAMILY HX Past Psychological History: Anxiety, Depression Smoking Status: Current every day smoker Past Alcohol Use History: None Reported Past Drug Use History: Marijuana - Past Family History Father History Unknown: Yes Additional Family Medical History / Comment(s): unknown-adopted Mother History Unknown: Yes Additional Family Medical History / Comment(s): unknown- adopted Medications and Allergies Home Medications Medication Instructions Recorded Confirmed Type Ondansetron [Zofran] 4 mg PO DAILY 08/12/15 05/12/23 History ALPRAZolam [Xanax] 0.25 mg PO BID 05/12/23 05/12/23 History Atorvastatin [Lipitor] 20 mg PO DAILY 05/12/23 05/12/23 History Budesonide [Pulmicort] 0.5 mg INHALATION RT-BID 05/12/23 05/12/23 History DULoxetine HCL [Cymbalta] 30 mg PO DAILY 05/12/23 05/12/23 History HYDROcodone/APAP 5-325MG [[place] 1 tab PO BID 05/12/23 05/12/23 History 5-325] Insulin Glargine,Hum.rec.anlog 9 units SQ DAILY 05/12/23 05/12/23 History [Lantus Solostar Pen] Insulin Lispro [humaLOG Kwikpen] 2 unit SQ AC-TID 05/12/23 05/12/23 History Insulin Lispro [humaLOG Kwikpen] See Protocol SQ AC-TID 05/12/23 05/12/23 History Ipratropium-Albuterol Nebulize 3 ml INHALATION RT-BID 05/12/23 05/12/23 History [Duoneb 0.5 mg-3 mg/3 ml Soln] Magnesium Oxide [Mag-Ox] 400 mg PO DAILY 05/12/23 05/12/23 History Metoclopramide [Reglan] 10 mg PO TID 05/12/23 05/12/23 History Mirtazapine [Remeron] 30 mg PO HS 05/12/23 05/12/23 History Omeprazole 20 mg PO DAILY 05/12/23 05/12/23 History Potassium Chloride ER [K-Dur 20] 20 meq PO DAILY 05/12/23 05/12/23 History amLODIPine [Norvasc] 5 mg PO BID 05/12/23 05/12/23 History Allergies Allergy/AdvReac Type Severity Reaction Status Date / Time fentanyl Allergy Unknown Verified 05/12/23 19:44 Physical Exam Vitals: Vital Signs Temp Pulse Resp BP Pulse Ox 05/13/23 08:49 98.6 F 122 H 20 203/117 98 05/13/23 06:43 112 H 19 170/105 98 05/13/23 05:18 104 H 18 175/100 95 05/13/23 02:45 96.9 F L 115 H 19 190/103 97 05/13/23 01:43 109 H 05/12/23 19:50 104 H 17 143/89 98 05/12/23 16:50 122 H 157/89 98 05/12/23 16:40 125 H 98 05/12/23 16:30 126 H 178/107 98 05/12/23 16:20 125 H 99 05/12/23 16:10 126 H 184/116 98 05/12/23 16:00 128 H 192/118 98 05/12/23 15:32 114 H 18 156/117 98 05/12/23 14:32 185/113 05/12/23 14:25 96.9 F L 125 H 18 100 General appearance: The patient is alert, oriented, appears in no acute distress. HET: Head is normocephalic and atraumatic. Conjunctiva pink. Sclera anicteric. Neck: Supple without lymphadenopathy. Trachea midline. Heart: Regular. Lungs: Equal expansion, normal respiratory effort. Abdomen: Soft, right upper quadrant tenderness with palpation, nondistended. No guarding or rigidity. Skin: No rashes. No jaundice. Extremities: Normal skin color and turgor. No pedal edema. Neurological: No focal deficits. Alert and oriented x3. Results CBC & Chem 7: 05/13/23 07:33 05/13/23 07:33 Labs: Abnormal Lab Results - Last 24 Hours (Table) 05/12/23 05/12/23 05/12/23 Range/Units 14:38 14:54 14:54 VBG pCO2 (37-51) mmHg VBG HCO3 (24-28) mmol/L Sodium 129 L (137-145) mmol/L Carbon Dioxide 16 L (22-30) mmol/L BUN 20 H (7-17) mg/dL Glucose 367 H (74-99) mg/dL POC Glucose (mg/dL) 428 H (70-110) mg/dL Calcium 7.0 L (8.4-10.2) mg/dL Total Protein 5.0 L (6.3-8.2) g/dL Albumin 2.6 L (3.5-5.0) g/dL Lipase 704 H (23-300) U/L Urine Protein 2+ H (Negative) Urine Glucose (UA) 4+ H (Negative) Ur Leukocyte Esterase Small H (Negative) Urine WBC 15 H (0-5) /hpf Urine Mucus Rare H (None) /hpf 05/12/23 05/12/23 05/13/23 Range/Units 16:48 19:48 07:54 VBG pCO2 30 L (37-51) mmHg VBG HCO3 17 L (24-28) mmol/L Sodium (137-145) mmol/L Carbon Dioxide (22-30) mmol/L BUN (7-17) mg/dL Glucose (74-99) mg/dL POC Glucose (mg/dL) 285 H 247 H (70-110) mg/dL Calcium (8.4-10.2) mg/dL Total Protein (6.3-8.2) g/dL Albumin (3.5-5.0) g/dL Lipase (23-300) U/L Urine Protein (Negative) Urine Glucose (UA) (Negative) Ur Leukocyte Esterase (Negative) Urine WBC (0-5) /hpf Urine Mucus (None) /hpf Comments: CT abdomen pelvis with contrast reports findings can suggest group pancreatitis. Question mild haziness of the pancreatic fat which could be seen with mild panc reatitis. Correlate clinically with labs. Mild wall thickening suggested of the distal esophagus, stomach, duodenum and more distal small bowel. Mild colonic wall thickening not excluded. Findings can be seen with nonspecific gastroenteritis. No evidence of bowel obstruction. Severely distended urinary bladder. Moderate to heavy calcification of the abdominal aorta and branches. No evidence of AAA. Moderate anterior wedge deformity of the T12 vertebral body, and mild height loss along the superior endplate of L4. Neither of which were present on 01/03/2021 CAT scan. The exact age is indeterminate however favored to be chronic. Correlate for any back pain. CT scan - abdomen: report reviewed Assessment and Plan (1) Acute pancreatitis Narrative/Plan: 53-year-old female with uncontrolled diabetes mellitus came in with hyperglycemia and diabetic ketoacidosis. Patient with intractable nausea and vomiting without any hematemesis. Patient also complaining of abdominal pain CAT scan was completed shows possible acute pancreatitis correlate with blood work. Patient was noted to have elevated lipase of 702 on admission which by later in the evening was normal at 277. CAT scan again showed possible mild uncomplicated pancreatitis, with diabetic ketoacidosis sometimes can have an elevated lipase however difficult to exclude acute pancreatitis. Patient denies any previous history of pancreatitis, no alcohol use, no new medications. We'll continue to treat symptomatically for nausea and vomiting. Pain medication as needed. No further workup indicated. Current Visit: Yes Status: Acute Code(s): K85.90 - ACUTE PANCREATITIS WITHOUT NECROSIS OR INFECTION, UNSP SNOMED Code(s): 425233392 (2) Nausea & vomiting Current Visit: Yes Status: Acute Code(s): R11.2 - NAUSEA WITH VOMITING, UNSPECIFIED SNOMED Code(s): 75289605 (3) Diabetic ketoacidosis Current Visit: Yes Status: Acute Code(s): E11.10 - TYPE 2 DIABETES MELLITUS WITH KETOACIDOSIS WITHOUT COMA SNOMED Code(s): 688829874 (4) Abdominal pain Current Visit: No Status: Acute Code(s): R10.9 - UNSPECIFIED ABDOMINAL PAIN SNOMED Code(s): 51888371 (5) Hyponatremia Current Visit: Yes Status: Acute Code(s): E87.1 - HYPO-OSMOLALITY AND HYPONATREMIA SNOMED Code(s): 81701933 Plan: 1. Continue symptomatic and supportive care 2. Pain medication per primary medical team 3. Antiemetics as ordered 4. Protonix 40 mg twice a day 5. Patient may have clear liquid diet consistent carbohydrate, advance as tolerated 6. Lipid panel ordered 7. No further workup indicated at this time Thank you for this consultation, we will continue to follow. Dr. Shakira Bear I agree with the dictator's note, documented as a scribe by Leigh Ordonez.
[2023-05-13 18:11] LABS: Glucose,Whole Blood 124 mg/dL (70-110)
[2023-05-13] MEDS: MIRTAZAPINE 15 MG TAB PO SCH (22:23)
[2023-05-14 05:47] LABS: Glucose,Whole Blood 149 mg/dL (70-110)
[2023-05-14] MEDS: ONDANSETRON 4 MG/2 ML VIAL IVP PRN (05:47)
[2023-05-14] MEDS: MORPHINE SULFATE 4 MG/ML SYRINGE IV PRN ×2 (05:48→09:41)
[2023-05-14] MEDS: BUDESONIDE 0.5 MG/2 ML NEBU INHALATION SCH ×2 (09:01→20:00)
[2023-05-14] MEDS: IPRATROPIUM-ALBUTEROL 3 ML NEB INHALATION SCH ×2 (09:02→20:00)
[2023-05-14] MEDS: INSULIN ASPART (NovoLOG) 100 UNIT/ML VIAL SQ SCH ×3 (09:29→17:33)
[2023-05-14] MEDS: METOCLOPRAMIDE 5 MG/ML 2 ML VIAL IM PRN (09:37)
[2023-05-14] MEDS: PANTOPRAZOLE 40 MG/10 ML VIAL IVP SCH ×2 (09:37→20:34)
[2023-05-14] MEDS: amLODIPine 5 MG TAB PO SCH ×2 (09:38→22:37)
[2023-05-14] MEDS: POTASSIUM CHLORIDE ER 20 MEQ TAB.ER PO SCH (09:38)
[2023-05-14] MEDS: HEPARIN SODIUM,PORCINE 5,000 UNIT/ML 1 ML VIAL SQ SCH ×2 (09:38→20:32)
[2023-05-14] MEDS: MAGNESIUM OXIDE 400 MG TAB PO SCH (09:38)
[2023-05-14] MEDS: ATORVASTATIN 20 MG TAB PO SCH (09:38)
[2023-05-14] MEDS: ALPRAZolam 0.25 MG TAB PO SCH ×2 (09:38→20:33)
[2023-05-14] MEDS: DULoxetine HCL 30 MG CAPSULE.DR PO SCH (10:13)
[2023-05-14 12:24] LABS: Glucose,Whole Blood 135 mg/dL (70-110)
--- NOTE | 2023-05-14 12:24 | P.PN ---
Subjective Progress Note Date: 05/14/23 Principal diagnosis: Acute pancreatitis This is a 53-year-old female who presented to the emergency department with hyperglycemia and nausea and vomiting. She has a past medical history including insulin-dependent diabetes not well-controlled, states that she recently got an insulin pump however it is not activated yet. Patient was admitted for diabetic ketoacidosis, with intractable nausea and vomiting. Patient was also complaining of abdominal pain and had elevation in her lipase at 704 with a repeat later in the evening R Allen down to 277. Patient denies any previous history of pancreatitis. She had a CT of the abdomen and pelvis with contrast that report of findings can suggest groove pancreatitis. Question mild haziness of the pancreatic bed which could be seen with mild pancreatitis. Gastroenterology was consulted for acute pancreatitis. She denies any new changes in her medication. States that her sugars have run high in the past and she has had diabetic ketoacidosis in the past. She continues to have continued nausea and vomiting. No hematemesis or emesis reported. States she has not had any recent sick contacts, she's been afebrile. 05/14/2023 Patient seen and examined today as a follow-upfor acute pancreatitis, nausea vomiting and diabetic ketoacidosis. Patient states vomiting has improved however nausea continues. States she still having some abdominal pain. Blood sugars have improved. Today's labs currently pending. Objective - Vital Signs Vital signs: Vital Signs Temp 98.4 F 05/14/23 07:00 Pulse 120 H 05/14/23 07:00 Resp 20 05/14/23 07:00 BP 150/86 05/14/23 07:00 Pulse Ox 98 05/14/23 07:00 FiO2 Intake & Output 05/13/23 05/14/23 05/14/23 18:59 06:59 18:59 Weight 36.741 kg - Exam General appearance: The patient is alert, oriented, appears in no acute distress. HET: Head is normocephalic and atraumatic. Conjunctiva pink. Sclera anicteric. Neck: Supple without lymphadenopathy. Abdomen: Soft, diffuse tenderness, nondistended. No guarding or rigidity. Extremities: Normal skin color and turgor. No pedal edema Skin: No rashes, no jaundice Neurological: No focal deficits. Alert and oriented. - Labs CBC & Chem 7: 05/13/23 07:33 05/13/23 07:33 Labs: Abnormal Lab Results - Last 24 Hours (Table) 05/13/23 05/13/23 05/13/23 Range/Units 07:33 07:33 14:37 Sodium 131 L (137-145) mmol/L Carbon Dioxide 15 L (22-30) mmol/L Creatinine 0.48 L (0.52-1.04) mg/dL Glucose 247 H (74-99) mg/dL POC Glucose (mg/dL) 212 H (70-110) mg/dL Hemoglobin A1c 10.9 H (<=6.0) % Total Protein 5.7 L (6.3-8.2) g/dL Albumin 3.0 L (3.5-5.0) g/dL 05/13/23 05/14/23 Range/Units 18:10 05:45 Sodium (137-145) mmol/L Carbon Dioxide (22-30) mmol/L Creatinine (0.52-1.04) mg/dL Glucose (74-99) mg/dL POC Glucose (mg/dL) 124 H 149 H (70-110) mg/dL Hemoglobin A1c (<=6.0) % Total Protein (6.3-8.2) g/dL Albumin (3.5-5.0) g/dL Microbiology - Last 24 Hours (Table) 05/13/23 00:00 Urine Culture - Preliminary Urine,Voided Presumptive Staph aureus Assessment and Plan (1) Acute pancreatitis Narrative/Plan: 53-year-old female with uncontrolled diabetes mellitus came in with hyperglycemia and diabetic ketoacidosis. Patient with intractable nausea and vomiting without any hematemesis. Patient also complaining of abdominal pain CAT scan was completed shows possible acute pancreatitis correlate with blood work. Patient was noted to have elevated lipase of 702 on admission which by later in the evening was normal at 277. CAT scan again showed possible mild uncomplicated pancreatitis, with diabetic ketoacidosis sometimes can have an elevated lipase however difficult to exclude acute pancreatitis. Patient denies any previous history of pancreatitis, no alcohol use, no new medications. We'll continue to treat symptomatically for nausea and vomiting. Pain medication as needed. No further workup indicated. Current Visit: Yes Status: Acute Code(s): K85.90 - ACUTE PANCREATITIS WITHOUT NECROSIS OR INFECTION, UNSP SNOMED Code(s): 144109095 (2) Nausea & vomiting Current Visit: Yes Status: Acute Code(s): R11.2 - NAUSEA WITH VOMITING, UNSPECIFIED SNOMED Code(s): 09899537 (3) Diabetic ketoacidosis Current Visit: Yes Status: Acute Code(s): E11.10 - TYPE 2 DIABETES MELLITUS WITH KETOACIDOSIS WITHOUT COMA SNOMED Code(s): 782176290 (4) Abdominal pain Current Visit: No Status: Acute Code(s): R10.9 - UNSPECIFIED ABDOMINAL PAIN SNOMED Code(s): 45716316 (5) Hyponatremia Current Visit: Yes Status: Acute Code(s): E87.1 - HYPO-OSMOLALITY AND H YPONATREMIA SNOMED Code(s): 06508149 Plan: 1. Continue symptomatic and supportive care 2. Pain medication per primary medical team 3. Antiemetics as ordered 4. Protonix 40 mg twice a day 5. Bands to consistent carbohydrate diet 6. Lipid panel ordered, currently pending 7. No further workup indicated at this time Thank you for this consultation, we will continue to follow. Dr. Shakira Bear I agree with the dictator's note, documented as a scribe by Leigh Ordonez.
[2023-05-14] MEDS ORDERED: SCOPOLAMINE 1 MG/72 HR PATCH TRANSDERM SCH (13:00)
[2023-05-14 13:12] LABS: ALT 19 U/L (4-34); AST 42 U/L (14-36); African American GFR (CKD) >90 (>60 ml/min/1.73 sqM); Albumin/Globulin Ratio 1.2; Alkaline Phosphatase 85 U/L (38-126); Anion Gap 10 mmol/L; Blood Urea Nitrogen 16 mg/dL (7-17); Calcium 8.8 mg/dL (8.4-10.2); Carbon Dioxide 19 mmol/L (22-30); Chloride 105 mmol/L (98-107); Globulin 2.6 g/dL; Glucose 144 mg/dL (74-99); Non-African American GFR(CKD) >90 (>60 ml/min/1.73 sqM); Sodium 134 mmol/L (137-145); Total Bilirubin 0.4 mg/dL (0.2-1.3); Total Protein 5.6 g/dL (6.3-8.2)
[2023-05-14] MEDS: SODIUM CHLORIDE 0.9% 1,000 ML IV SCH ×2 (13:24→20:42)
[2023-05-14] MEDS: METOCLOPRAMIDE 10 MG TAB PO SCH ×3 (13:25→20:32)
--- NOTE | 2023-05-14 13:25 | HP ---
HISTORY AND PHYSICAL LOCATION: ER. HISTORY OF PRESENT ILLNESS: A 53-year-old female with DKA and gastroparesis, who has [id number] pancreatitis, abdominal pain, nausea, and vomiting. She persisted nausea and vomiting while in hospital, going for GI consultation, came in to the emergency room 05/13/2023. HOME MEDICINES: 1. Lipitor 20 daily. 2. Xanax 0.25 b.i.d. 3. Pulmicort 0.5 b.i.d. 4. [place] 5/325 b.i.d. 5. Lantus 9 units subcu daily. 6. Humalog 2 units a.c. t.i.d. 7. DuoNeb b.i.d. 8. Mag oxide 400 mg daily. 9. Reglan 10 mg t.i.d. 10.Remeron 30 at night. 11.Omeprazole 20 daily. 12.Potassium chloride 20 mEq daily. 13.Norvasc 5 mg b.i.d. ALLERGIES: Fentanyl. REVIEW OF SYSTEMS: A 14-point review of systems, nausea, vomiting, dehydration, lightheadedness, dizziness, progressive abdominal pain of a severe nature, 01/24. PAST MEDICAL HISTORY: Gastroparesis severe, diabetes mellitus, COPD, degenerative disk disease. PAST SURGICAL HISTORY: Tubal ligation. FAMILY HISTORY: Unknown. PHYSICAL EXAMINATION: GENERAL: Moderate distress from vomiting. She is holding a bucket in front of her mouth. She is weak, fatigued. INTEGUMENT: Dry skin turgor, dry mucous membranes. CARDIOVASCULAR: S1, S2. LUNGS: Scattered wheeze x4. HEMATOLOGY: Negative for Homans. GI: Soft, increased bowel sounds, diffuse tenderness throughout mid abdomen. HEMATOLOGY: Negative for Homans. VASCULAR: Normal dorsalis pedis, posterior tibial, radial pulse. VITAL SIGNS: Pulse is 120s, blood pressure 180s to 190s over 116 to 118, O2 is 98. LABORATORY DATA: Labs are all reviewed. ASSESSMENT: 1. Acute abdominal pain. 2. Acute on chronic pancreatitis. 3. Severe gastroparesis. 4. Severe dehydration. 5. Hypertension acceleration. 6. Nonketotic hyperglycemia. 7. Dehydration, nausea secondary to gastroparesis and pancreatitis, GI consultation. 8. Hyponatremia secondary to dehydration, rule out possible UTI as a cause. 9. Sugar is uncontrolled. Continue current treatments. Her A1c is better than it has been in the past, will get GI consult for pancreatitis control nausea, vomiting, possibly have to have scopolamine patches. Get GI consultation. MMODL / IJN: [id number] /
[2023-05-14 13:39] LABS: Basophils % (A) 1 %; Eosinophils # (A) 0.2 k/uL (0-0.7); Eosinophils % (A) 3 %; HCT 38.3 % (34.0-46.0); HGB 12.1 gm/dL (11.4-16.0); Lymphocytes % (A) 26 %; MCH 27.8 pg (25.0-35.0); MCHC 31.5 g/dL (31.0-37.0); MCV 88.2 fL (80.0-100.0); Mean Platelet Volume 8.4; Monocytes # (A) 0.5 k/uL (0-1.0); Monocytes % (A) 7 %; Neutrophils # (A) 4.9 k/uL (1.3-7.7); Neutrophils % (A) 63 %; Platelet Count 338 k/uL (150-450); RBC 4.34 m/uL (3.80-5.40); RDW 15.9 % (11.5-15.5); WBC 7.8 k/uL (3.8-10.6)
[2023-05-14 13:55] LABS: Chol/HDL Ratio 2.93 Ratio; LDL Cholesterol,Calculated 106.1 mg/dL (0.0-131.0)
[2023-05-14 13:56] LABS: Blood Urea Nitrogen 13.2 mg/dL (9.0-27.0); Calcium 8.9 mg/dL (8.7-10.3); Carbon Dioxide 19.9 mmol/L (21.6-31.8); Chloride 105 mmol/L (96-109); Glucose 149 mg/dL (70-110); Potassium 3.8 mmol/L (3.5-5.5); Sodium 137 mmol/L (135-145)
[2023-05-14 17:11] LABS: Glucose,Whole Blood 302 mg/dL (70-110)
[2023-05-14 20:18] LABS: Glucose,Whole Blood 262 mg/dL (70-110)
[2023-05-14] MEDS: MIRTAZAPINE 15 MG TAB PO SCH (20:52)
[2023-05-14] MEDS: HYDROcodone/APAP 5-325MG 1 EACH TAB PO SCH (22:37)
[2023-05-15] MEDS: ONDANSETRON 4 MG/2 ML VIAL IVP PRN (01:24)
[2023-05-15 05:35] LABS: Glucose,Whole Blood 327 mg/dL (70-110)
[2023-05-15] MEDS: HYDROcodone/APAP 5-325MG 1 EACH TAB PO SCH (05:35)
[2023-05-15] MEDS: METOCLOPRAMIDE 10 MG TAB PO SCH (05:39)
[2023-05-15] MEDS: INSULIN ASPART (NovoLOG) 100 UNIT/ML VIAL SQ SCH (05:39)
[2023-05-15 07:35] VITALS: PULSE 101; RESP 16; TEMP 98.1
[2023-05-15] MEDS: amLODIPine 5 MG TAB PO SCH (08:31)
[2023-05-15] MEDS: DULoxetine HCL 30 MG CAPSULE.DR PO SCH (08:35)
[2023-05-15] MEDS: ATORVASTATIN 20 MG TAB PO SCH (08:35)
[2023-05-15] MEDS: PANTOPRAZOLE 40 MG/10 ML VIAL IVP SCH (08:35)
[2023-05-15] MEDS: HEPARIN SODIUM,PORCINE 5,000 UNIT/ML 1 ML VIAL SQ SCH (08:35)
[2023-05-15] MEDS: POTASSIUM CHLORIDE ER 20 MEQ TAB.ER PO SCH (08:35)
[2023-05-15] MEDS: MAGNESIUM OXIDE 400 MG TAB PO SCH (08:35)
[2023-05-15] MEDS: SODIUM CHLORIDE 0.9% 1,000 ML IV SCH (08:50)
[2023-05-15] MEDS: IPRATROPIUM-ALBUTEROL 3 ML NEB INHALATION SCH (09:10)
[2023-05-15] MEDS: BUDESONIDE 0.5 MG/2 ML NEBU INHALATION SCH (09:10)
[2023-05-15] MEDS: ALPRAZolam 0.25 MG TAB PO SCH (10:21)
[2023-05-15 10:36] VITALS: BP 107/71
[2023-05-15 10:57] LABS: Basophils # (A) 0.07 X 10*3/uL (0.00-0.10); Basophils % (A) 0.8 %; Eosinophils # (A) 0.12 X 10*3/uL (0.04-0.35); Eosinophils % (A) 1.3 %; HCT 37.2 % (37.2-46.3); HGB 11.7 g/dL (12.0-15.0); Lymphocytes # (A) 1.06 X 10*3/uL (0.90-5.00); Lymphocytes % (A) 11.4 %; MCH 27.9 pg (27.0-32.0); MCHC 31.5 g/dL (32.0-37.0); MCV 88.8 FL (80.0-97.0); Mean Platelet Volume 10.4 FL (9.5-12.2); Monocytes # (A) 0.51 X 10*3/uL (0.20-1.00); Monocytes % (A) 5.5 %; NRBC Per 100 WBC 0 X 10*3/uL (0.00-0.01); Neutrophils # (A) 7.54 X 10*3/uL (1.80-7.70); Neutrophils % (A) 80.7 %; Platelet Count 308 X 10*3/uL (140-440); RBC 4.19 X 10*6/uL (4.10-5.20); RDW 15.7 % (11.5-14.5); WBC 9.33 X 10*3/uL (4.50-10.00)
[2023-05-15 11:39] LABS: Glucose,Whole Blood 313 mg/dL (70-110)
--- NOTE | 2023-05-15 12:37 | PN ---
PROGRESS NOTE DATE OF SERVICE: 05/14/2023 SUBJECTIVE: This is a 53-year-old white female, gastroparesis, nausea and vomiting. Continues to do well. She is eating a little bit soft diet. We are going to increase her diet. Her pancreatitis is improving, possibly go home tomorrow. OBJECTIVE: CARDIOVASCULAR: S1, S2. LUNGS: Clear. GI: Soft. HEMATOLOGY: Negative for Homans. PSYCH: Fair mood and affect. ASSESSMENT: Gastroparesis, acute on chronic pancreatitis. Cleared by GI doctor for discharge. Possible discharge home in the morning. Advance diet as tolerated. MMODL / IJN: [id number] /
[2023-05-15 12:39] LABS: ALT 20 U/L (8-44); AST 25 U/L (13-35); Albumin 2.9 g/dL (3.8-4.9); Albumin/Globulin Ratio 1.38 Ratio (1.60-3.17); Alkaline Phosphatase 92 U/L (41-126); BUN/Creat Ratio 16.78 Ratio (12.00-20.00); Blood Urea Nitrogen 15.1 mg/dL (9.0-27.0); Calcium 8.3 mg/dL (8.7-10.3); Carbon Dioxide 18.5 mmol/L (21.6-31.8); Chloride 105 mmol/L (96-109); Globulin 2.1 g/dL (1.6-3.3); Glucose 343 mg/dL (70-110); Potassium 4.4 mmol/L (3.5-5.5); Sodium 134 mmol/L (135-145); Total Bilirubin <0.2 mg/dL (0.3-1.2)
[2023-05-15] MEDS ORDERED: SULFAMETHOX-TMP 800-160MG 1 EACH TAB PO SCH (21:00)
--- NOTE | 2023-05-17 13:08 | P.PN ---
Subjective Progress Note Date: 05/15/23 Principal diagnosis: Acute pancreatitis This is a 53-year-old female who presented to the emergency department with hyperglycemia and nausea and vomiting. She has a past medical history including insulin-dependent diabetes not well-controlled, states that she recently got an insulin pump however it is not activated yet. Patient was admitted for diabetic ketoacidosis, with intractable nausea and vomiting. Patient was also complaining of abdominal pain and had elevation in her lipase at 704 with a repeat later in the evening R Allen down to 277. Patient denies any previous history of pancreatitis. She had a CT of the abdomen and pelvis with contrast that report of findings can suggest groove pancreatitis. Question mild haziness of the pancreatic bed which could be seen with mild pancreatitis. Gastroenterology was consulted for acute pancreatitis. She denies any new changes in her medication. States that her sugars have run high in the past and she has had diabetic ketoacidosis in the past. She continues to have continued nausea and vomiting. No hematemesis or emesis reported. States she has not had any recent sick contacts, she's been afebrile. 05/14/2023 Patient seen and examined today as a follow-upfor acute pancreatitis, nausea vomiting and diabetic ketoacidosis. Patient states vomiting has improved however nausea continues. States she still having some abdominal pain. Blood sugars have improved. Today's labs currently pending. N [id number] Patient seen and examined as a follow-up. Nausea and vomiting have improved. No abdominal pain. Sugars are better controlled. Objective - Vital Signs Vital signs: Vital Signs Temp 97.9 F 05/15/23 01:28 Pulse 116 H 05/15/23 01:28 Resp 18 05/15/23 01:28 BP 137/86 05/15/23 01:28 Pulse Ox 97 05/15/23 01:28 FiO2 Intake & Output 05/14/23 05/15/23 05/15/23 18:59 06:59 18:59 Intake Total 500 Balance 500 Weight 36.741 kg Intake: Oral 500 Other: # Voids 2 2 - Exam General appearance: The patient is alert, oriented, appears in no acute distress. HET: Head is normocephalic and atraumatic. Conjunctiva pink. Sclera anicteric. Neck: Supple without lymphadenopathy. Abdomen: Soft, nontender, nondistended. No guarding or rigidity. Extremities: Normal skin color and turgor. No pedal edema Skin: No rashes, no jaundice Neurological: No focal deficits. Alert and oriented. - Labs CBC & Chem 7: 05/15/23 06:24 05/15/23 06:24 Labs: Abnormal Lab Results - Last 24 Hours (Table) 05/14/23 05/14/23 05/14/23 Range/Units 07:00 12:22 12:36 RDW 15.9 H (11.5-15.5) % Sodium (137-145) mmol/L Carbon Dioxide 19.9 L (21.6-31.8) mmol/L Anion Gap 12.10 H (4.00-12.00) mmol/L Creatinine 0.5 L (0.6-1.5) mg/dL BUN/Creatinine Ratio 26.40 H (12.00-20.00) Ratio Glucose 149 H (70-110) mg/dL POC Glucose (mg/dL) 135 H (70-110) mg/dL AST (14-36) U/L Total Protein (6.3-8.2) g/dL Albumin (3.5-5.0) g/dL Triglycerides 204.00 H (0.00-149.00) mg/dL Cholesterol 223.00 H (0.00-200.00) mg/dL VLDL Cholesterol, Calc 40.80 H (5.00-40.00) mg/dL HDL Cholesterol 76.10 H (40.00-60.00) mg/dL 05/14/23 05/14/23 05/14/23 Range/Units 12:36 17:10 20:17 RDW (11.5-15.5) % Sodium 134 L (137-145) mmol/L Carbon Dioxide 19 L (21.6-31.8) mmol/L Anion Gap (4.00-12.00) mmol/L Creatinine (0.6-1.5) mg/dL BUN/Creatinine Ratio (12.00-20.00) Ratio Glucose 144 H (70-110) mg/dL POC Glucose (mg/dL) 302 H 262 H (70-110) mg/dL AST 42 H (14-36) U/L Total Protein 5.6 L (6.3-8.2) g/dL Albumin 3.0 L (3.5-5.0) g/dL Triglycerides (0.00-149.00) mg/dL Cholesterol (0.00-200.00) mg/dL VLDL Cholesterol, Calc (5.00-40.00) mg/dL HDL Cholesterol (40.00-60.00) mg/dL 05/15/23 Range/Units 05:35 RDW (11.5-15.5) % Sodium (137-145) mmol/L Carbon Dioxide (21.6-31.8) mmol/L Anion Gap (4.00-12.00) mmol/L Creatinine (0.6-1.5) mg/dL BUN/Creatinine Ratio (12.00-20.00) Ratio Glucose (70-110) mg/dL POC Glucose (mg/dL) 327 H (70-110) mg/dL AST (14-36) U/L Total Protein (6.3-8.2) g/dL Albumin (3.5-5.0) g/dL Triglycerides (0.00-149.00) mg/dL Cholesterol (0.00-200.00) mg/dL VLDL Cholesterol, Calc (5.00-40.00) mg/dL HDL Cholesterol (40.00-60.00) mg/dL Microbiology - Last 24 Hours (Table) 05/13/23 00:00 Urine Culture - Preliminary Urine,Voided Presumptive Staph aureus Assessment and Plan (1) Acute pancreatitis Narrative/Plan: 53-year-old female with uncontrolled diabetes mellitus came in with hyperglycemia and diabetic ketoacidosis. Patient with intractable nausea and vomiting without any hematemesis. Patient also complaining of abdominal pain CAT scan was completed shows possible acute pancreatitis correlate with blood work. Patient was noted to have elevated lipase of 702 on admission which by later in the evening was normal at 277. CAT scan again showed possible mild uncomplicated pancreatitis, with diabetic ketoacidosis sometimes can have an elevated lipase however difficult to exclude acute pancreatitis. Patient denies any previous history of pancreatitis, no alcohol use, no new medications. We'll continue to treat symptomatically for nausea and vomiting. Pain medication as needed. No further workup indicated. Status: Acute Code(s): K85.90 - ACUTE PANCREATITIS WITHOUT NECROSIS OR INFECTION, UNSP SNOMED Code(s): 805962570 (2) Nausea & vomiting Status: Acute Code(s): R11.2 - NAUSEA WITH VOMITING, UNSPECIFIED SNOMED Code(s): 09508978 (3) Diabetic ketoacidosis Status: Acute Code(s): E11.10 - TYPE 2 DIABETES MELLITUS WITH KETOACIDOSIS WITHOUT COMA SNOMED Code(s): 555237177 (4) Abdominal pain Status: Acute Code(s): R10.9 - UNSPECIFIED ABDOMINAL PAIN SNOMED Code(s): 15867272 (5) Hyponatremia Status: Acute Code(s): E87.1 - HYPO-OSMOLALITY AND HYPONATREMIA SNOMED Code(s): 20020971 Plan: 1. Continue symptomatic and supportive care 2. Pain medication per primary medical team 3. Antiemetics as ordered 4. Protonix 40 mg twice a day 5. Advanced to consistent carbohydrate diet 6. No further workup indicated at this time Thank you for this consultation, we will sign off at this time. Dr. Shakira Bear I agree with the dictator's note, documented as a scribe by Leigh Ordonez.
== END 2023-05-15 12:37 | disposition home or self-care (01) ==
LOC: EC 14:23 → 6NMEDSUR 20:09
PROVIDERS: ADMIT Family Medicine; ATTEND Family Medicine
DX: K85.90 Acute pancreatitis without necrosis or infection, unspecified (principal); K86.1 Other chronic pancreatitis; E11.11 Type 2 diabetes mellitus with ketoacidosis with coma; E11.43 Type 2 diabetes mellitus with diabetic autonomic (poly)neuropathy; K31.84 Gastroparesis; F41.9 Anxiety disorder, unspecified; F32.A Depression, unspecified; J44.9 Chronic obstructive pulmonary disease, unspecified; E87.1 Hypo-osmolality and hyponatremia; E86.0 Dehydration; I10 Essential (primary) hypertension; F17.200 Nicotine dependence, unspecified, uncomplicated; Z20.822 Contact with and (suspected) exposure to COVID-19; Z96.41 Presence of insulin pump (external) (internal); Z79.4 Long term (current) use of insulin; Z79.899 Other long term (current) drug therapy
CPT/HCPCS: 96376 ×5; 96361 ×4; 96372 ×4; 96374; 96375; 99285; 36415; 93005; 80061; 80053 ×4; 80048; 82150; 82803; 82009; 83605; 83690; 85025 ×4; 81001; 87086; 87077; 87186; 83036; 87636; 71045; 74177; G0378 ×4; J2270 ×3; J1200; J1644 ×4; J2765 ×3; J3250; J2405 ×4; C9113 ×4; Q9967

== ENCOUNTER 2023-05-16 12:18 | Inpatient (IN) | payer OTHER ==
[2023-05-16 12:33] LABS: Glucose,Whole Blood 406 mg/dL (70-110)
[2023-05-16] MEDS ORDERED: SODIUM CHLORIDE 0.9% 500 ML 500 ML IV ONE (12:42)
--- NOTE | 2023-05-16 12:44 | ED ---
General Adult HPI - General Chief complaint: Abdominal Pain Stated complaint: Abd Pain Time Seen by Provider: 05/16/23 12:32 Source: patient, EMS, RN notes reviewed, old records reviewed Mode of arrival: EMS Limitations: no limitations - History of Present Illness Initial comments: 53 yo female presenting for reevaluation of abdominal pain, vomiting. Patient has history of type 1 diabetes, gastroparesis and recent admission with pancreatitis. She continues to have epigastric abdominal pain and had multiple episodes of vomiting today. She was discharged from the hospital yesterday. - Related Data Home Medications Medication Instructions Recorded Confirmed Ondansetron [Zofran] 4 mg PO DAILY 08/12/15 05/12/23 ALPRAZolam [Xanax] 0.25 mg PO BID 05/12/23 05/12/23 Atorvastatin [Lipitor] 20 mg PO DAILY 05/12/23 05/12/23 Budesonide [Pulmicort] 0.5 mg INHALATION RT-BID 05/12/23 05/12/23 DULoxetine HCL [Cymbalta] 30 mg PO DAILY 05/12/23 05/12/23 HYDROcodone/APAP 5-325MG [[place] 1 tab PO BID 05/12/23 05/12/23 5-325] Insulin Glargine,Hum.rec.anlog 9 units SQ DAILY 05/12/23 05/12/23 [Lantus Solostar Pen] Insulin Lispro [humaLOG Kwikpen] 2 unit SQ AC-TID 05/12/23 05/12/23 Insulin Lispro [humaLOG Kwikpen] See Protocol SQ AC-TID 05/12/23 05/12/23 Ipratropium-Albuterol Nebulize 3 ml INHALATION RT-BID 05/12/23 05/12/23 [Duoneb 0.5 mg-3 mg/3 ml Soln] Magnesium Oxide [Mag-Ox] 400 mg PO DAILY 05/12/23 05/12/23 Metoclopramide [Reglan] 10 mg PO TID 05/12/23 05/12/23 Mirtazapine [Remeron] 30 mg PO HS 05/12/23 05/12/23 Omeprazole 20 mg PO DAILY 05/12/23 05/12/23 Potassium Chloride ER [K-Dur 20] 20 meq PO DAILY 05/12/23 05/12/23 amLODIPine [Norvasc] 5 mg PO BID 05/12/23 05/12/23 Previous Rx's Medication Instructions Recorded Metoclopramide [Reglan] 10 mg PO ACHS 30 Days #120 tab 05/15/23 Scopolamine 1 mg/72 Hr Patch 1 patch TRANSDERM Q72H 30 Days #10 05/15/23 [TransDerm Scop] patch Sulfamethox-Tmp 800-160Mg [Bactrim 1 each PO BID 15 Days #30 tab 05/15/23 DS 800-160 mg] Allergies Allergy/AdvReac Type Severity Reaction Status Date / Time fentanyl Allergy Unknown Verified 05/16/23 12:28 Review of Systems ROS Statement: Those systems with pertinent positive or pertinent negative responses have been documented in the HPI. ROS Other: All systems not noted in ROS Statement are negative. Past Medical History Past Medical History: Diabetes Mellitus, Musculoskeletal Disorder Additional Past Medical History / Comment(s): FREQ NAUSEA, PAINFUL LT SHOULDER "FROZEN SHOULDER", NEUROPATHY PORFIRIO LEGS History of Any Multi-Drug Resistant Organisms: None Reported Past Surgical History: Tubal Ligation Past Anesthesia/Blood Transfusion Reactions: No Reported Reaction Additional Past Anesthesia/Blood Transfusion Reaction / Comment(s): UNK FAMILY HX Past Psychological History: Anxiety, Depression Smoking Status: Current every day smoker Past Alcohol Use History: None Reported Past Drug Use History: Marijuana - Past Family History Father History Unknown: Yes Additional Family Medical History / Comment(s): unknown-adopted Mother History Unknown: Yes Additional Family Medical History / Comment(s): unknown- adopted General Exam Limitations: no limitations General appearance: alert, in no apparent distress, cachectic Head exam: Present: atraumatic, normocephalic Eye exam: Present: normal appearance, PERRL ENT exam: Present: mucous membranes dry Respiratory exam: Present: normal lung sounds bilaterally. Absent: respiratory distress Cardiovascular Exam: Present: normal rhythm, tachycardia GI/Abdominal exam: Present: soft, tenderness Extremities exam: Present: normal inspection Neurological exam: Present: alert. Absent: motor sensory deficit Skin exam: Present: warm, dry, intact. Absent: cyanosis, diaphoretic Course Vital Signs 05/16/23 12:20 Temperature 98.8 F Pulse Rate 121 H Respiratory 20 Rate Blood Pressure 172/106 O2 Sat by Pulse 97 Oximetry Medical Decision Making - Medical Decision Making Was pt. sent in by a medical professional or institution (DANA oRsales, SERVICE REPRESENTATIVE, urgent care, hospital, or fci...) When possible be specific @ -No Did you speak to anyone other than the patient for history (EMS, parent, family, police, friend...)? What history was obtained from this source @ -No Did you review nursing and triage notes (agree or disagree)? Why? @ -I reviewed and agree with nursing and triage notes Were old charts reviewed (outside hosp., previous admission, EMS record, old EKG, old radiological studies, urgent care reports/EKG's, fci records)? Report findings @ -No old charts were reviewed Differential Diagnosis (chest pain, altered mental status, abdominal pain women, abdominal pain men, vaginal bleeding, weakness, fever, dyspnea, syncope, headache, dizziness, GI bleed, back pain, seizure, CVA, palpatations, mental health, musculoskeletal)? @ -Differential Abdominal Pain Women: Appendicitis, Cholecystitis, diverticulosis, ischemic bowel, pancreatitis, hepatitis, UTI, gastroenteritis, AAA, incarcerated hernia, bowel obstruction, constipation, inflammatory bowel, hepatitis, peptic ulcer disease, splenic infarction, perforated viscus, vulvitis, ovarian torsion, PID, kidney stone, placenta abruption, this is not meant to be an all-inclusive list EKG interpreted by me (3pts min.). @ -As above X-rays interpreted by me (1pt min.). @ -None done CT interpreted by me (1pt min.). @ -None done U/S interpreted by me (1pt. min.). @ -None done What testing was considered but not performed or refused? (CT, X-rays, U/S, labs)? Why? @ -None What meds were considered but not given or refused? Why? @ -None Did you discuss the management of the patient with other professionals (professionals i.e. DANA Rosales, SERVICE REPRESENTATIVE, lab, RT, psych nurse, social secretary, business executive, teacher, chief supply chain officer, caseworker)? Give summary @ -[Case discussed with Dr. Pike, will admit Was smoking cessation discussed for >3mins.? @ -No Was critical care preformed (if so, how long)? @ -No Were there social determinants of health that impacted care today? How? (Homelessness, low income, unemployed, alcoholism, drug addiction, transportation, low edu. Level, literacy, decrease access to med. care, senior living, rehab)? @ -No Was there de-escalation of care discussed even if they declined (Discuss DNR or withdrawal of care, Hospice)? DNR status @ -No What co-morbidities impacted this encounter? (DM, HTN, Smoking, COPD, CAD, Cancer, CVA, ARF, Chemo, Hep., AIDS, mental health diagnosis, sleep apnea, morbid obesity)? @ -Diabetes, pancreatitis, gastroparesis Was patient admitted / discharged? Hospital course, mention meds given and route, prescriptions, significant lab abnormalities, going to OR and other pertinent info. @ 53-year-old female for reevaluation of abdominal pain nausea vomiting, recent pancreatitis, uncontrolled diabetes. Patient's blood sugar is 400. She has a elevated CO2 and normal anion gap without signs of DKA. She is not acidotic. Her lipase is 102 which is normal. She will be placed in observation for IV fluids, and symptomatically treatment of abdominal pain. Undiagnosed new problem with uncertain prognosis? @ -No Drug Therapy requiring intensive monitoring for toxicity (Heparin, Nitro, Insulin, Cardizem)? @ -No Were any procedures done? @ -No Diagnosis/symptom? @ -[Abdominal pain, hyperglycemia, nausea vomiting Acute, or Chronic, or Acute on Chronic? @ -[Acute on chronic Uncomplicated (without systemic symptoms) or Complicated (systemic symptoms)? @ -default Side effects of treatment? @ -No Exacerbation, Progression, or Severe Exacerbation? @ -No Poses a threat to life or bodily function? How? (Chest pain, USA, NH, pneumonia, PE, COPD, DKA, ARF, appy, cholecystitis, CVA, Diverticulitis, Homicidal, Suicidal, threat to staff... and all critical care pts) @ -No - Lab Data Result diagrams: 05/16/23 12:41 05/16/23 14:23 Lab Results 05/16/23 05/16/23 05/16/23 Range/Units 12:30 12:41 12:41 WBC 11.4 H (3.8-10.6) k/uL RBC 4.66 (3.80-5.40) m/uL Hgb 13.3 (11.4-16.0) gm/dL Hct 40.4 (34.0-46.0) % MCV 86.7 (80.0-100.0) fL MCH 28.6 (25.0-35.0) pg MCHC 33.0 (31.0-37.0) g/dL RDW 15.5 (11.5-15.5) % Plt Count 347 (150-450) k/uL MPV 7.7 Neutrophils % 92 % Lymphocytes % 5 % Monocytes % 2 % Eosinophils % 0 % Basophils % 1 % Neutrophils # 10.4 H (1.3-7.7) k/uL Lymphocytes # 0.6 L (1.0-4.8) k/uL Monocytes # 0.2 (0-1.0) k/uL Eosinophils # 0.1 (0-0.7) k/uL Basophils # 0.1 (0-0.2) k/uL PT 9.9 L (10.0-12.5) sec INR 0.9 (<1.2) APTT 24.8 (22.0-30.0) sec VBG pH (7.31-7.41) VBG pCO2 (37-51) mmHg VBG HCO3 (24-28) mmol/L Sodium (137-145) mmol/L Potassium (3.5-5.1) mmol/L Chloride (98-107) mmol/L Carbon Dioxide (22-30) mmol/L Anion Gap mmol/L BUN (7-17) mg/dL Creatinine (0.52-1.04) mg/dL Est GFR (CKD-EPI)AfAm (>60 ml/min/1.73 sqM) Est GFR (CKD-EPI)NonAf (>60 ml/min/1.73 sqM) Glucose (74-99) mg/dL POC Glucose (mg/dL) 406 H (70-110) mg/dL POC Glu Departure Clerk ID Coty Mullins Plasma Lactic Acid Travis (0.7-2.0) mmol/L Calcium (8.4-10.2) mg/dL Total Bilirubin (0.2-1.3) mg/dL AST (14-36) U/L ALT (4-34) U/L Alkaline Phosphatase (38-126) U/L Total Protein (6.3-8.2) g/dL Albumin (3.5-5.0) g/dL Amylase (30-110) U/L Lipase (23-300) U/L Urine Color Urine Appearance (Clear) Urine pH (5.0-8.0) Ur Specific Walton (1.001-1.035) Urine Protein (Negative) Urine Glucose (UA) (Negative) Urine Ketones (Negative) Urine Blood (Negative) Urine Nitrite (Negative) Urine Bilirubin (Negative) Urine Urobilinogen (<2.0) mg/dL Ur Leukocyte Esterase (Negative) Urine RBC (0-5) /hpf Urine WBC (0-5) /hpf Ur Squamous Epith Cells (0-4) /hpf Urine Bacteria (None) /hpf Urine Mucus (None) /hpf 05/16/23 05/16/23 05/16/23 Range/Units 12:41 12:41 12:41 WBC (3.8-10.6) k/uL RBC (3.80-5.40) m/uL Hgb (11.4-16.0) gm/dL Hct (34.0-46.0) % MCV (80.0-100.0) fL MCH (25.0-35.0) pg MCHC (31.0-37.0) g/dL RDW (11.5-15.5) % Plt Count (150-450) k/uL MPV Neutrophils % % Lymphocytes % % Monocytes % % Eosinophils % % Basophils % % Neutrophils # (1.3-7.7) k/uL Lymphocytes # (1.0-4.8) k/uL Monocytes # (0-1.0) k/uL Eosinophils # (0-0.7) k/uL Basophils # (0-0.2) k/uL PT (10.0-12.5) sec INR (<1.2) APTT (22.0-30.0) sec VBG pH 7.42 H (7.31-7.41) VBG pCO2 57 H (37-51) mmHg VBG HCO3 37 H (24-28) mmol/L Sodium (137-145) mmol/L Potassium (3.5-5.1) mmol/L Chloride (98-107) mmol/L Carbon Dioxide (22-30) mmol/L Anion Gap mmol/L BUN (7-17) mg/dL Creatinine (0.52-1.04) mg/dL Est GFR (CKD-EPI)AfAm (>60 ml/min/1.73 sqM) Est GFR (CKD-EPI)NonAf (>60 ml/min/1.73 sqM) Glucose (74-99) mg/dL POC Glucose (mg/dL) (70-110) mg/dL POC Glu Departure Clerk ID Plasma Lactic Acid Travis 1.2 (0.7-2.0) mmol/L Calcium (8.4-10.2) mg/dL Total Bilirubin (0.2-1.3) mg/dL AST (14-36) U/L ALT (4-34) U/L Alkaline Phosphatase (38-126) U/L Total Protein (6.3-8.2) g/dL Albumin (3.5-5.0) g/dL Amylase (30-110) U/L Lipase (23-300) U/L Urine Color Colorless Urine Appearance Clear (Clear) Urine pH 7.0 (5.0-8.0) Ur Specific Walton 1.023 (1.001-1.035) Urine Protein 3+ H (Negative) Urine Glucose (UA) 4+ H (Negative) Urine Ketones 2+ H (Negative) Urine Blood Small H (Negative) Urine Nitrite Negative (Negative) Urine Bilirubin Negative (Negative) Urine Urobilinogen <2.0 (<2.0) mg/dL Ur Leukocyte Esterase Small H (Negative) Urine RBC 15 H (0-5) /hpf Urine WBC 52 H (0-5) /hpf Ur Squamous Epith Cells 1 (0-4) /hpf Urine Bacteria Rare H (None) /hpf Urine Mucus Rare H (None) /hpf 05/16/23 Range/Units 14:23 WBC (3.8-10.6) k/uL RBC (3.80-5.40) m/uL Hgb (11.4-16.0) gm/dL Hct (34.0-46.0) % MCV (80.0-100.0) fL MCH (25.0-35.0) pg MCHC (31.0-37.0) g/dL RDW (11.5-15.5) % Plt Count (150-450) k/uL MPV Neutrophils % % Lymphocytes % % Monocytes % % Eosinophils % % Basophils % % Neutrophils # (1.3-7.7) k/uL Lymphocytes # (1.0-4.8) k/uL Monocytes # (0-1.0) k/uL Eosinophils # (0-0.7) k/uL Basophils # (0-0.2) k/uL PT (10.0-12.5) sec INR (<1.2) APTT (22.0-30.0) sec VBG pH (7.31-7.41) VBG pCO2 (37-51) mmHg VBG HCO3 (24-28) mmol/L Sodium 138 (137-145) mmol/L Potassium 3.7 (3.5-5.1) mmol/L Chloride 95 L (98-107) mmol/L Carbon Dioxide 31 H (22-30) mmol/L Anion Gap 12 mmol/L BUN 17 (7-17) mg/dL Creatinine 0.54 (0.52-1.04) mg/dL Est GFR (CKD-EPI)AfAm >90 (>60 ml/min/1.73 sqM) Est GFR (CKD-EPI)NonAf >90 (>60 ml/min/1.73 sqM) Glucose 393 H (74-99) mg/dL POC Glucose (mg/dL) (70-110) mg/dL POC Glu Departure Clerk ID Plasma Lactic Acid Travis (0.7-2.0) mmol/L Calcium 8.8 (8.4-10.2) mg/dL Total Bilirubin 0.5 (0.2-1.3) mg/dL AST 30 (14-36) U/L ALT 23 (4-34) U/L Alkaline Phosphatase 127 H (38-126) U/L Total Protein 6.5 (6.3-8.2) g/dL Albumin 3.6 (3.5-5.0) g/dL Amylase 59 (30-110) U/L Lipase 102 (23-300) U/L Urine Color Urine Appearance (Clear) Urine pH (5.0-8.0) Ur Specific Walton (1.001-1.035) Urine Protein (Negative) Urine Glucose (UA) (Negative) Urine Ketones (Negative) Urine Blood (Negative) Urine Nitrite (Negative) Urine Bilirubin (Negative) Urine Urobilinogen (<2.0) mg/dL Ur Leukocyte Esterase (Negative) Urine RBC (0-5) /hpf Urine WBC (0-5) /hpf Ur Squamous Epith Cells (0-4) /hpf Urine Bacteria (None) /hpf Urine Mucus (None) /hpf Disposition Clinical Impression: Hyperglycemia, Intractable abdominal pain Disposition: ADMITTED IP TO THIS HOSP Condition: Stable Is patient prescribed a controlled substance at d/c from ED?: No Referrals: Dell Pike MD [Primary Care Provider] - 1-2 days Time of Disposition: 15:00
[2023-05-16] MEDS: SODIUM CHLORIDE 0.9% 1,000 ML IV SCH (13:26)
[2023-05-16 13:34] LABS: Basophils # (A) 0.1 k/uL (0-0.2); Basophils % (A) 1 %; Eosinophils # (A) 0.1 k/uL (0-0.7); Eosinophils % (A) 0 %; HCT 40.4 % (34.0-46.0); HGB 13.3 gm/dL (11.4-16.0); Lymphocytes # (A) 0.6 k/uL (1.0-4.8); Lymphocytes % (A) 5 %; MCH 28.6 pg (25.0-35.0); MCV 86.7 fL (80.0-100.0); Mean Platelet Volume 7.7; Monocytes # (A) 0.2 k/uL (0-1.0); Monocytes % (A) 2 %; Neutrophils # (A) 10.4 k/uL (1.3-7.7); Neutrophils % (A) 92 %; Platelet Count 347 k/uL (150-450); RBC 4.66 m/uL (3.80-5.40); RDW 15.5 % (11.5-15.5); WBC 11.4 k/uL (3.8-10.6)
[2023-05-16 13:38] LABS: VBG PH 7.42 (7.31-7.41)
[2023-05-16 14:23] LABS: INR 0.9 (<1.2); Partial Thromboplastin Time 24.8 sec (22.0-30.0); Prothrombin Time 9.9 sec (10.0-12.5)
[2023-05-16 14:25] LABS: Appearance,Urine Clear (Clear); Bacteria,Urine Rare /hpf; Bilirubin,Urine Negative (Negative); Blood,Urine Small (Negative); Color,Urine Colorless; Glucose,Urine (UA) 4+ (Negative); Leukocyte Esterase,Urine Small (Negative); Mucus,Urine Rare /hpf; Nitrite,Urine Negative (Negative); Protein,Urine 3+ (Negative); RBC,Urine 15 /hpf (0-5); Specific Gravity,Urine 1.023 (1.001-1.035); Squamous Epithelial Cell,Urine 1 /hpf (0-4); Urobilinogen,Urine <2.0 mg/dL (<2.0); WBC,Urine 52 /hpf (0-5)
[2023-05-16 14:28] LABS: Ketones,Urine 2+ (Negative)
[2023-05-16 14:54] LABS: ALT 23 U/L (4-34); AST 30 U/L (14-36); African American GFR (CKD) >90 (>60 ml/min/1.73 sqM); Albumin 3.6 g/dL (3.5-5.0); Alkaline Phosphatase 127 U/L (38-126); Amylase 59 U/L (30-110); Anion Gap 12 mmol/L; Blood Urea Nitrogen 17 mg/dL (7-17); Calcium 8.8 mg/dL (8.4-10.2); Carbon Dioxide 31 mmol/L (22-30); Chloride 95 mmol/L (98-107); Glucose 393 mg/dL (74-99); Lipase 102 U/L (23-300); Non-African American GFR(CKD) >90 (>60 ml/min/1.73 sqM); Potassium 3.7 mmol/L (3.5-5.1); Sodium 138 mmol/L (137-145); Total Bilirubin 0.5 mg/dL (0.2-1.3); Total Protein 6.5 g/dL (6.3-8.2)
[2023-05-16] MEDS ORDERED: NALOXONE 0.4 MG/ML 1 ML VIAL IV PRN (14:58)
[2023-05-16] MEDS: ONDANSETRON 4 MG/2 ML VIAL IVP PRN (16:25)
[2023-05-16] MEDS: HYDROmorphone 0.5 MG/0.5 ML SYRINGE IVP PRN (16:25)
[2023-05-16 17:54] LABS: Glucose,Whole Blood 460 mg/dL (70-110)
[2023-05-16] MEDS ORDERED: INSULIN REGULAR 100 UNIT/ML VIAL (IV) IV ONE (18:00)
[2023-05-16 18:48] LABS: Glucose,Whole Blood 386 mg/dL (70-110)
[2023-05-16] MEDS: ALPRAZolam 0.25 MG TAB PO SCH (20:18)
[2023-05-16] MEDS: HYDROcodone/APAP 5-325MG 1 EACH TAB PO SCH (20:18)
[2023-05-16] MEDS: amLODIPine 5 MG TAB PO SCH (20:18)
[2023-05-16] MEDS: MIRTAZAPINE 15 MG TAB PO SCH (20:19)
[2023-05-16] MEDS: SULFAMETHOX-TMP 800-160MG 1 EACH TAB PO SCH (20:19)
[2023-05-16] MEDS: METOCLOPRAMIDE 10 MG TAB PO SCH (20:19)
[2023-05-16] MEDS: BUDESONIDE 0.5 MG/2 ML NEBU INHALATION SCH (20:24)
[2023-05-16] MEDS: IPRATROPIUM-ALBUTEROL 3 ML NEB INHALATION SCH (20:24)
[2023-05-17] MEDS: SODIUM CHLORIDE 0.9% 1,000 ML IV SCH ×2 (03:29→17:19)
[2023-05-17] MEDS: ONDANSETRON 4 MG/2 ML VIAL IVP PRN ×2 (05:10→17:33)
[2023-05-17] MEDS: HYDROmorphone 0.5 MG/0.5 ML SYRINGE IVP PRN ×3 (05:13→22:47)
[2023-05-17] MEDS ORDERED: PANTOPRAZOLE 40 MG TABLET PO SCH (07:30)
[2023-05-17] MEDS: IPRATROPIUM-ALBUTEROL 3 ML NEB INHALATION SCH ×2 (08:02→19:54)
[2023-05-17] MEDS: BUDESONIDE 0.5 MG/2 ML NEBU INHALATION SCH ×2 (08:02→19:54)
[2023-05-17] MEDS ORDERED: SCOPOLAMINE 1 MG/72 HR PATCH TRANSDERM SCH (09:00)
[2023-05-17] MEDS: ALPRAZolam 0.25 MG TAB PO SCH ×2 (09:10→21:45)
[2023-05-17] MEDS: ONDANSETRON 4 MG TAB PO SCH (09:10)
[2023-05-17] MEDS: HYDROcodone/APAP 5-325MG 1 EACH TAB PO SCH ×2 (09:10→21:45)
[2023-05-17] MEDS: METOCLOPRAMIDE 10 MG TAB PO SCH ×4 (09:11→21:45)
[2023-05-17] MEDS: amLODIPine 5 MG TAB PO SCH ×2 (09:11→22:07)
[2023-05-17] MEDS: SULFAMETHOX-TMP 800-160MG 1 EACH TAB PO SCH ×2 (09:11→22:47)
[2023-05-17] MEDS: ATORVASTATIN 20 MG TAB PO SCH (09:11)
[2023-05-17] MEDS: MAGNESIUM OXIDE 400 MG TAB PO SCH (09:11)
[2023-05-17] MEDS: POTASSIUM CHLORIDE ER 20 MEQ TAB.ER PO SCH (09:11)
[2023-05-17] MEDS: DULoxetine HCL 30 MG CAPSULE.DR PO SCH (09:11)
[2023-05-17 10:54] LABS: Basophils # (A) 0.06 X 10*3/uL (0.00-0.10); Basophils % (A) 0.4 %; Eosinophils # (A) 0.16 X 10*3/uL (0.04-0.35); Eosinophils % (A) 1.2 %; HCT 36.3 % (37.2-46.3); HGB 11.6 g/dL (12.0-15.0); Lymphocytes # (A) 1.08 X 10*3/uL (0.90-5.00); MCH 28.1 pg (27.0-32.0); MCV 87.9 FL (80.0-97.0); Mean Platelet Volume 10.5 FL (9.5-12.2); Monocytes # (A) 0.82 X 10*3/uL (0.20-1.00); Monocytes % (A) 6.1 %; NRBC Per 100 WBC 0 X 10*3/uL (0.00-0.01); Neutrophils # (A) 11.27 X 10*3/uL (1.80-7.70); Neutrophils % (A) 84.1 %; Platelet Count 334 X 10*3/uL (140-440); RBC 4.13 X 10*6/uL (4.10-5.20); WBC 13.42 X 10*3/uL (4.50-10.00)
[2023-05-17 13:00] LABS: Glucose,Whole Blood 356 mg/dL (70-110)
--- NOTE | 2023-05-17 13:15 | P.CONS ---
History of Present Illness - Reason for Consult Consult date: 05/17/23 Gastroparesis Requesting physician: Dell Pike - Chief Complaint Nausea, vomiting and abdominal pain - History of Present Illness This is a 53-year-old female who presented to the emergency department with hyperglycemia and nausea and vomiting. She has a past medical history including insulin-dependent diabetes not well-controlled, states that she recently got an insulin pump however it is not activated yet. Patient was admitted for diabetic ketoacidosis, with intractable nausea and vomiting earlier this week and gastroenterology was consulted for pancreatitis. She was discharged yesterday and came back to the emergency department stating she had abdominal pain, and nausea and vomiting. She is currently lying in bed appears comfortable. States she has no further nausea or vomiting. She is currently nothing by mouth. She isn't sure when last endoscopic evaluation was. Denies any hematemesis. Reports most of her abdominal pain in the epigastric region. Admitting labs WBC 11.4 hemoglobin 13 hematocrit 40 platelet count 347,000 a nursing appointmen t 9 sodium 138 potassium 3.7 BUN 17 creatinine 0.5 glucose 393 total bilirubin 0.5 AST 30 ALT 23 alkaline phosphatase 127 amylase 59 lipase 102 Review of Systems REVIEW OF SYSTEMS: CARDIOPULMONARY: No chest pain or shortness of breath. Gastrointestinal: Epigastric pain. Nausea and vomiting, however now improved. No hematemesis, coffee-ground emesis. No rectal bleeding, or melena. GENITOURINARY: No dysuria or hematuria. MUSCULOSKELETAL: Reports normal range of motion. SKIN: No rashes. No jaundice. ENDOCRINE: No chills, fevers. No excessive weight gain or loss. No polydipsia or polyuria. PSYCHIATRIC: Unremarkable. NEUROLOGY: No change in mental status. Denies dizziness, headache. ENT: Vision unremarkable. CONSTITUTIONAL: No recent weight loss. No fever, chills, night sweats. Past Medical History Past Medical History: Diabetes Mellitus, Musculoskeletal Disorder Additional Past Medical History / Comment(s): FREQ NAUSEA, PAINFUL LT SHOULDER "FROZEN SHOULDER", NEUROPATHY PORFIRIO LEGS History of Any Multi-Drug Resistant Organisms: None Reported Year Discovered:: 05/13/23 MDRO Source:: Urine Past Surgical History: Tubal Ligation Past Anesthesia/Blood Transfusion Reactions: No Reported Reaction Additional Past Anesthesia/Blood Transfusion Reaction / Comm: UNK FAMILY HX Past Psychological History: Anxiety, Depression Smoking Status: Current every day smoker Past Alcohol Use History: None Reported Past Drug Use History: Marijuana - Past Family History Father History Unknown: Yes Additional Family Medical History / Comment(s): unknown-adopted Mother History Unknown: Yes Additional Family Medical History / Comment(s): unknown- adopted Medications and Allergies Home Medications Medication Instructions Recorded Confirmed Type Ondansetron [Zofran] 4 mg PO DAILY 08/12/15 05/16/23 History ALPRAZolam [Xanax] 0.25 mg PO BID 05/12/23 05/16/23 History Atorvastatin [Lipitor] 20 mg PO DAILY 05/12/23 05/16/23 History Budesonide [Pulmicort] 0.5 mg INHALATION RT-BID 05/12/23 05/16/23 History DULoxetine HCL [Cymbalta] 30 mg PO DAILY 05/12/23 05/16/23 History HYDROcodone/APAP 5-325MG [[place] 1 tab PO BID 05/12/23 05/16/23 History 5-325] Insulin Glargine,Hum.rec.anlog 9 units SQ DAILY 05/12/23 05/16/23 History [Lantus Solostar Pen] Insulin Lispro [humaLOG Kwikpen] 2 unit SQ AC-TID 05/12/23 05/16/23 History Insulin Lispro [humaLOG Kwikpen] See Protocol SQ AC-TID 05/12/23 05/16/23 History Ipratropium-Albuterol Nebulize 3 ml INHALATION RT-BID 05/12/23 05/16/23 History [Duoneb 0.5 mg-3 mg/3 ml Soln] Magnesium Oxide [Mag-Ox] 400 mg PO DAILY 05/12/23 05/16/23 History Mirtazapine [Remeron] 30 mg PO HS 05/12/23 05/16/23 History Omeprazole 20 mg PO DAILY 05/12/23 05/16/23 History Potassium Chloride ER [K-Dur 20] 20 meq PO DAILY 05/12/23 05/16/23 History amLODIPine [Norvasc] 5 mg PO BID 05/12/23 05/16/23 History Metoclopramide [Reglan] 10 mg PO ACHS 30 Days #120 tab 05/15/23 05/16/23 Rx Scopolamine 1 mg/72 Hr Patch 1 patch TRANSDERM Q72H 30 Days #10 05/15/23 05/16/23 Rx [TransDerm Scop] patch Sulfamethox-Tmp 800-160Mg [Bactrim 1 tab PO BID 05/16/23 05/16/23 History DS 800-160 mg] Allergies Allergy/AdvReac Type Severity Reaction Status Date / Time fentanyl Allergy Unknown Verified 05/16/23 15:10 Physical Exam Vitals: Vital Signs Temp Pulse Resp BP Pulse Ox 05/17/23 04:00 110 H 16 143/84 96 05/17/23 00:00 100 16 107/64 95 05/16/23 20:26 112 H 05/16/23 20:00 109 H 18 134/84 94 L 05/16/23 18:34 114 H 20 112/69 98 05/16/23 17:00 118 H 20 114/74 98 05/16/23 16:00 124 H 20 185/110 96 05/16/23 15:04 123 H 20 164/98 95 05/16/23 12:20 98.8 F 121 H 20 172/106 97 General appearance: The patient is alert, oriented, appears in no acute distress. HET: Head is normocephalic and atraumatic. Conjunctiva pink. Sclera anicteric. Neck: Supple without lymphadenopathy. Trachea midline. Heart: Regular. Lungs: Equal expansion, normal respiratory effort. Abdomen: Soft, thin, mild epigastric tenderness, nondistended. No guarding or rigidity. Skin: No rashes. No jaundice. Extremities: Normal skin color and turgor. No pedal edema. Neurological: No focal deficits. Alert and oriented x3. Results CBC & Chem 7: 05/17/23 06:37 05/16/23 14:23 Labs: Abnormal Lab Results - Last 24 Hours (Table) 05/16/23 05/16/23 05/16/23 Range/Units 12:30 12:41 12:41 WBC 11.4 H (3.8-10.6) k/uL Neutrophils # 10.4 H (1.3-7.7) k/uL Lymphocytes # 0.6 L (1.0-4.8) k/uL PT 9.9 L (10.0-12.5) sec VBG pH (7.31-7.41) VBG pCO2 (37-51) mmHg VBG HCO3 (24-28) mmol/L Chloride (98-107) mmol/L Carbon Dioxide (22-30) mmol/L Glucose (74-99) mg/dL POC Glucose (mg/dL) 406 H (70-110) mg/dL Alkaline Phosphatase (38-126) U/L Urine Protein (Negative) Urine Glucose (UA) (Negative) Urine Ketones (Negative) Urine Blood (Negative) Ur Leukocyte Esterase (Negative) Urine RBC (0-5) /hpf Urine WBC (0-5) /hpf Urine Bacteria (None) /hpf Urine Mucus (None) /hpf 05/16/23 05/16/23 05/16/23 Range/Units 12:41 12:41 14:23 WBC (3.8-10.6) k/uL Neutrophils # (1.3-7.7) k/uL Lymphocytes # (1.0-4.8) k/uL PT (10.0-12.5) sec VBG pH 7.42 H (7.31-7.41) VBG pCO2 57 H (37-51) mmHg VBG HCO3 37 H (24-28) mmol/L Chloride 95 L (98-107) mmol/L Carbon Dioxide 31 H (22-30) mmol/L Glucose 393 H (74-99) mg/dL POC Glucose (mg/dL) (70-110) mg/dL Alkaline Phosphatase 127 H (38-126) U/L Urine Protein 3+ H (Negative) Urine Glucose (UA) 4+ H (Negative) Urine Ketones 2+ H (Negative) Urine Blood Small H (Negative) Ur Leukocyte Esterase Small H (Negative) Urine RBC 15 H (0-5) /hpf Urine WBC 52 H (0-5) /hpf Urine Bacteria Rare H (None) /hpf Urine Mucus Rare H (None) /hpf 05/16/23 05/16/23 Range/Units 17:52 18:47 WBC (3.8-10.6) k/uL Neutrophils # (1.3-7.7) k/uL Lymphocytes # (1.0-4.8) k/uL PT (10.0-12.5) sec VBG pH (7.31-7.41) VBG pCO2 (37-51) mmHg VBG HCO3 (24-28) mmol/L Chloride (98-107) mmol/L Carbon Dioxide (22-30) mmol/L Glucose (74-99) mg/dL POC Glucose (mg/dL) 460 H 386 H (70-110) mg/dL Alkaline Phosphatase (38-126) U/L Urine Protein (Negative) Urine Glucose (UA) (Negative) Urine Ketones (Negative) Urine Blood (Negative) Ur Leukocyte Esterase (Negative) Urine RBC (0-5) /hpf Urine WBC (0-5) /hpf Urine Bacteria (None) /hpf Urine Mucus (None) /hpf Assessment and Plan (1) Nausea and vomiting Narrative/Plan: 53-year-old female with uncontrolled diabetes mellitus who was just recently hospitalized for acute pancreatitis unclear etiology was discharged yesterday return back with elevated sugars near 400 as well as nausea and vomiting. Patient admitted given IV fluids and anti-emetics. States that she is feeling better. She states is normal for her to have nausea and sometimes vomiting. May be related to underlying diabetic gastroparesis. Also can be related to uncontrolled blood sugars and diabetic ketoacidosis. Nonetheless we'll treat symptomatically as well as recommend upper endoscopy as patient is unclear of last time she had one and there is no records available. Current Visit: Yes Status: Acute Code(s): R11.2 - NAUSEA WITH VOMITING, UNSPECIFIED SNOMED Code(s): 41486649 (2) Insulin dependent diabetes mellitus Current Visit: Yes Status: Acute Code(s): DWQ4817 - SNOMED Code(s): 93278037 (3) Hyperglycemia Current Visit: Yes Status: Acute Code(s): R73.9 - HYPERGLYCEMIA, UNSPECIFIED SNOMED Code(s): 53553982 Plan: 1. Continue symptomatic and supportive care 2. Antiemetics as needed 3. Keep nothing by mouth 4. Protonix 40 mg twice a day 5. We'll plan for EGD today, further recommendations to follow Thank you for this consultation. We will be signing off after EGD as there will be no GI coverage through the weekend. Dr. Shakira Bear I agree with the dictator's note, documented as a scribe by Leigh Ordonez.
[2023-05-17] MEDS ORDERED: VANCOMYCIN IV PER PHARMACY 1 EACH MISC MISCELLANE PRN (14:54)
[2023-05-17] MEDS ORDERED: VANCOMYCIN 750 MG in SODIUM CHLORIDE 0.9% 250 ML IVPB STA (15:00)
[2023-05-17] MEDS ORDERED: DEXTROSE 50% SYRINGE 50 ML IVP PRN ×2 (15:28)
[2023-05-17] MEDS ORDERED: PROPOFOL 10 MG/ML 20 ML VIAL IV ONE (15:45)
[2023-05-17] MEDS ORDERED: SODIUM CHLORIDE 0.9% 1,000 ML IV ONE (15:46)
--- NOTE | 2023-05-17 15:57 | P.PCN ---
Date of Procedure: 05/17/23 Procedure(s) Performed: BRIEF HISTORY: Patient is a 53-year-old, pleasant, white female admitted with chronic intermittent nausea vomiting of several weeks duration. She was discharged home 2 days ago and readmitted to the hospital yesterday with the same symptoms. She has long-standing history of diabetes mellitus type 1 that has not been well controlled. In view of chronic persistent symptoms she is scheduled for an upper endoscopy to evaluate further PROCEDURE PERFORMED: Esophagogastroduodenoscopy with biopsy. PREOPERATIVE DIAGNOSIS: Chronic intermittent nausea vomiting of several months duration. IV sedation per anesthesia. PROCEDURE: After informed consent was obtained, the patient was brought into the endoscopy unit. IV sedation was administered by Anesthesia under continuous monitoring. Initially the Olympus GIF-140 video endoscope was inserted into the mouth. Esophagus intubated without any difficulty. It was gradually advanced into the stomach and duodenum and carefully examined. The bulb and the second part of the duodenum appeared normal. In the second part of the duodenum there was a 5 mm polyp that was biopsied. The scope at this time was withdrawn to the stomach, adequately insufflated with air, and upon careful examination, mucosa of the antrum, had mild gastritis and biopsies were done from this area. Mucosa of the body, cardia and the fundus appeared normal. There was small amount of retained food in the stomach suggestive of diabetic gastroparesis. The scope was then withdrawn into the esophagus. The GE junction was located at 39 cm from the incisors. There were small red spots with erosions in the mid and distal esophagus consistent with esophagitis. Proximal esophagus appeared normal and the patient tolerated the procedure well. IMPRESSION: 1. Erosions in the mid and distal esophagus consistent with esophagitis. 2. Mild antral gastritis 3. Small amount of retained solid food in the stomach suggestive of diabetic gastroparesis 4. 5 mm duodenal polyp status post biopsy RECOMMENDATIONS: The findings of this examination were discussed with the patient . All with the biopsy results. At this time will start her on clear liquid diet. Continue with antiemetic and PPIs. Advance diet as tolerated based on the symptoms..
[2023-05-17 16:04] LABS: Glucose,Whole Blood 285 mg/dL (70-110)
[2023-05-17] MEDS ORDERED: INSULIN ASPART (NovoLOG) 100 UNIT/ML VIAL SQ ONE (16:16)
[2023-05-17 17:13] LABS: Glucose,Whole Blood 211 mg/dL (70-110)
[2023-05-17] MEDS: INSULIN ASPART (NovoLOG) 100 UNIT/ML VIAL SQ SCH ×3 (17:34→21:09)
[2023-05-17 20:52] LABS: Glucose,Whole Blood 88 mg/dL (70-110)
[2023-05-17] MEDS: MIRTAZAPINE 15 MG TAB PO SCH (21:45)
--- NOTE | 2023-05-17 22:03 | P.CONS ---
History of Present Illness - Reason for Consult Consult date: 05/17/23 MRSA urinary tract infection Requesting physician: Dell Pike - Chief Complaint Nausea and vomiting x few days - History of Present Illness Patient is a 53-year-old female with a past medical history seen for diabetes mellitus anxiety depression currently smoker history of diabetic gastroparesis presenting to the hospital with intractable nausea and vomiting and unable to keep anything down patient did have some epigastric discomfort more of a burning pain moderate intensity without radiation denies having any diarrhea no chest pain shortness of breath or cough also complaining of some urinary symptoms no burning but no suprapubic or flank pain with the symptoms the patient has been evaluated on presentation to the hospital the patient was afebrile patient was mildly tachycardic but not hypotensive or hypoxic patient did have vital of 11.4 which is up to 13.4 today kidney function was normal remains in the normal amylase lipase were normal patient did have a positive UA also has recent urine culture done on 05/13/2023 positive for MRSA patient was started on Bactrim DS infectious disease was consulted for further management of antibiotic therapy, patient was also noticed to have urinary retention by the nursing staff with the placement of Carcamo catheter Review of Systems Positive point and negatives has been mentioned in the HPI, complete review of systems was performed and all other systems are negative Past Medical History Past Medical History: Diabetes Mellitus, Musculoskeletal Disorder Additional Past Medical History / Comment(s): FREQ NAUSEA, PAINFUL LT SHOULDER "FROZEN SHOULDER", NEUROPATHY PORFIRIO LEGS History of Any Multi-Drug Resistant Organisms: None Reported Year Discovered:: 05/13/23 MDRO Source:: Urine Past Surgical History: Tubal Ligation Past Anesthesia/Blood Transfusion Reactions: No Reported Reaction Additional Past Anesthesia/Blood Transfusion Reaction / Comm: UNK FAMILY HX Past Psychological History: Anxiety, Depression Smoking Status: Current every day smoker Past Alcohol Use History: None Reported Past Drug Use History: Marijuana - Past Family History Father History Unknown: Yes Additional Family Medical History / Comment(s): unknown-adopted Mother History Unknown: Yes Additional Family Medical History / Comment(s): unknown- adopted Medications and Allergies Home Medications Medication Instructions Recorded Confirmed Type Ondansetron [Zofran] 4 mg PO DAILY 08/12/15 05/16/23 History ALPRAZolam [Xanax] 0.25 mg PO BID 05/12/23 05/16/23 History Atorvastatin [Lipitor] 20 mg PO DAILY 05/12/23 05/16/23 History Budesonide [Pulmicort] 0.5 mg INHALATION RT-BID 05/12/23 05/16/23 History DULoxetine HCL [Cymbalta] 30 mg PO DAILY 05/12/23 05/16/23 History HYDROcodone/APAP 5-325MG [[place] 1 tab PO BID 05/12/23 05/16/23 History 5-325] Insulin Glargine,Hum.rec.anlog 9 units SQ DAILY 05/12/23 05/16/23 History [Lantus Solostar Pen] Insulin Lispro [humaLOG Kwikpen] 2 unit SQ AC-TID 05/12/23 05/16/23 History Insulin Lispro [humaLOG Kwikpen] See Protocol SQ AC-TID 05/12/23 05/16/23 History Ipratropium-Albuterol Nebulize 3 ml INHALATION RT-BID 05/12/23 05/16/23 History [Duoneb 0.5 mg-3 mg/3 ml Soln] Magnesium Oxide [Mag-Ox] 400 mg PO DAILY 05/12/23 05/16/23 History Mirtazapine [Remeron] 30 mg PO HS 05/12/23 05/16/23 History Omeprazole 20 mg PO DAILY 05/12/23 05/16/23 History Potassium Chloride ER [K-Dur 20] 20 meq PO DAILY 05/12/23 05/16/23 History amLODIPine [Norvasc] 5 mg PO BID 05/12/23 05/16/23 History Metoclopramide [Reglan] 10 mg PO ACHS 30 Days #120 tab 05/15/23 05/16/23 Rx Scopolamine 1 mg/72 Hr Patch 1 patch TRANSDERM Q72H 30 Days #10 05/15/23 05/16/23 Rx [TransDerm Scop] patch Sulfamethox-Tmp 800-160Mg [Bactrim 1 tab PO BID 05/16/23 05/16/23 History DS 800-160 mg] Allergies Allergy/AdvReac Type Severity Reaction Status Date / Time fentanyl Allergy Unknown Verified 05/16/23 15:10 Physical Exam Vitals: Vital Signs Temp Pulse Resp BP Pulse Ox 05/17/23 12:57 97.6 F 123 H 18 150/100 93 L 05/17/23 09:09 123 H 18 144/68 95 05/17/23 08:14 120 H 16 05/17/23 08:02 115 H 16 05/17/23 04:00 110 H 16 143/84 96 05/17/23 00:00 100 16 107/64 95 05/16/23 20:26 112 H 05/16/23 20:00 109 H 18 134/84 94 L 05/16/23 18:34 114 H 20 112/69 98 05/16/23 17:00 118 H 20 114/74 98 05/16/23 16:00 124 H 20 185/110 96 05/16/23 15:04 123 H 20 164/98 95 GENERAL DESCRIPTION: Middle-aged female lying in bed, no distress. No tachypnea or accessory muscle of respiration use. HEENT: Shows Pallor , no scleral icterus. Oral mucous membrane is dry. No p haryngeal erythema or thrush NECK: Trachea central, no thyromegaly. LUNGS: Unlabored breathing. Clear to auscultation anteriorly. No wheeze or crackle. HEART: S1, S2, regular rate and rhythm. No loud murmur ABDOMEN: Soft, no tenderness , EXTREMITIES: No edema of feet. SKIN: No rash, no masses palpable. NEUROLOGICAL: The patient is awake, alert, oriented x3, mood and affect normal. Results CBC & Chem 7: 05/18/23 04:07 05/18/23 04:07 Labs: Abnormal Lab Results - Last 24 Hours (Table) 05/16/23 05/16/23 05/16/23 Range/Units 12:41 12:41 12:41 WBC 11.4 H (3.8-10.6) k/uL Hgb (12.0-15.0) g/dL Hct (37.2-46.3) % RDW (11.5-14.5) % Neutrophils # 10.4 H (1.3-7.7) k/uL Lymphocytes # 0.6 L (1.0-4.8) k/uL PT 9.9 L (10.0-12.5) sec VBG pH (7.31-7.41) VBG pCO2 (37-51) mmHg VBG HCO3 (24-28) mmol/L Chloride (98-107) mmol/L Carbon Dioxide (22-30) mmol/L Glucose (74-99) mg/dL POC Glucose (mg/dL) (70-110) mg/dL Alkaline Phosphatase (38-126) U/L Urine Protein 3+ H (Negative) Urine Glucose (UA) 4+ H (Negative) Urine Ketones 2+ H (Negative) Urine Blood Small H (Negative) Ur Leukocyte Esterase Small H (Negative) Urine RBC 15 H (0-5) /hpf Urine WBC 52 H (0-5) /hpf Urine Bacteria Rare H (None) /hpf Urine Mucus Rare H (None) /hpf 05/16/23 05/16/23 05/16/23 Range/Units 12:41 14:23 17:52 WBC (3.8-10.6) k/uL Hgb (12.0-15.0) g/dL Hct (37.2-46.3) % RDW (11.5-14.5) % Neutrophils # (1.3-7.7) k/uL Lymphocytes # (1.0-4.8) k/uL PT (10.0-12.5) sec VBG pH 7.42 H (7.31-7.41) VBG pCO2 57 H (37-51) mmHg VBG HCO3 37 H (24-28) mmol/L Chloride 95 L (98-107) mmol/L Carbon Dioxide 31 H (22-30) mmol/L Glucose 393 H (74-99) mg/dL POC Glucose (mg/dL) 460 H (70-110) mg/dL Alkaline Phosphatase 127 H (38-126) U/L Urine Protein (Negative) Urine Glucose (UA) (Negative) Urine Ketones (Negative) Urine Blood (Negative) Ur Leukocyte Esterase (Negative) Urine RBC (0-5) /hpf Urine WBC (0-5) /hpf Urine Bacteria (None) /hpf Urine Mucus (None) /hpf 05/16/23 05/17/23 05/17/23 Range/Units 18:47 06:37 12:59 WBC 13.42 H (3.8-10.6) k/uL Hgb 11.6 L (12.0-15.0) g/dL Hct 36.3 L (37.2-46.3) % RDW 16.0 H (11.5-14.5) % Neutrophils # 11.27 H (1.3-7.7) k/uL Lymphocytes # (1.0-4.8) k/uL PT (10.0-12.5) sec VBG pH (7.31-7.41) VBG pCO2 (37-51) mmHg VBG HCO3 (24-28) mmol/L Chloride (98-107) mmol/L Carbon Dioxide (22-30) mmol/L Glucose (74-99) mg/dL POC Glucose (mg/dL) 386 H 356 H (70-110) mg/dL Alkaline Phosphatase (38-126) U/L Urine Protein (Negative) Urine Glucose (UA) (Negative) Urine Ketones (Negative) Urine Blood (Negative) Ur Leukocyte Esterase (Negative) Urine RBC (0-5) /hpf Urine WBC (0-5) /hpf Urine Bacteria (None) /hpf Urine Mucus (None) /hpf Assessment and Plan Plan: 1patient present to hospital intractable nausea vomiting most likely due to gastroparesis and question of possible gastritis/esophagitis patient will be seen by GI planning for EGD this afternoon 2-patient also noticed to have positive UA urinary symptom retention requiring Carcamo catheter with recent urine culture positive for MRSA will be related to MRSA UTI in this patient with intractable vomiting unable to keep anything down we will discontinue Bactrim DS start the patient on vancomycin till her GI condition stabilizes 3-we will follow-up on repeat urine culture and adjust antibiotic further if needed We will follow on clinical condition and cultures to further adjust medication if needed Thank you for this consultation we will follow the patient along with you Dictation was produced using [employer] dictation software. please excuse any grammatical, word or spelling errors. Time with Patient: Greater than 30
[2023-05-17] MEDS: PANTOPRAZOLE 40 MG/10 ML VIAL IVP SCH (22:47)
[2023-05-18 05:07] LABS: ALT 13 U/L (4-34); AST 17 U/L (14-36); African American GFR (CKD) >90 (>60 ml/min/1.73 sqM); Albumin 2.3 g/dL (3.5-5.0); Alkaline Phosphatase 84 U/L (38-126); Anion Gap 2 mmol/L; Blood Urea Nitrogen 15 mg/dL (7-17); Calcium 8.2 mg/dL (8.4-10.2); Carbon Dioxide 30 mmol/L (22-30); Chloride 103 mmol/L (98-107); Globulin 2.2 g/dL; Glucose 97 mg/dL (74-99); Non-African American GFR(CKD) >90 (>60 ml/min/1.73 sqM); Potassium 3.7 mmol/L (3.5-5.1); Sodium 135 mmol/L (137-145); Total Bilirubin 0.2 mg/dL (0.2-1.3); Total Protein 4.5 g/dL (6.3-8.2)
--- NOTE | 2023-05-18 05:31 | PN ---
PROGRESS NOTE SUBJECTIVE: 53-year-old white female, severe gastroparesis, nausea and vomiting, hypertension, COPD, insulin-dependent diabetes mellitus, is getting sugars that are in the 100s now and can get EGD in the morning. OBJECTIVE: VITAL SIGNS: Blood pressure 96/65, O2 99 on room air, temp 98.2, pulse 60, respiratory rate 18. CARDIOVASCULAR: S1, S2. LUNGS: Transmitted upper sounds. GI: Soft. HEMATOLOGY: Negative for Homans. PSYCH: Fair mood and affect. PLAN: Continue current treatment. Follow up in the next 24 to 48 hours after EGD. Scopolamine, Reglan for nausea, vomiting. Please see further orders. MMODL / IJN: [id number] /
[2023-05-18 05:47] LABS: Glucose,Whole Blood 137 mg/dL (70-110)
--- NOTE | 2023-05-18 05:50 | PN ---
PROGRESS NOTE 53-year-old white female with severe esophagitis on EGD, biopsies were done. Gastritis, severe esophagitis, severe gastroparesis despite scopolamine, PPI control. Reglan for nausea. Possibly send [place] to the city for possible gastric pump workup, is pending. Continue current treatments. Please see risk factor modification. PROGNOSIS: Guarded. MMODL / IJN: [id number] /
[2023-05-18] MEDS: HYDROmorphone 0.5 MG/0.5 ML SYRINGE IVP PRN ×4 (06:30→23:51)
[2023-05-18] MEDS: VANCOMYCIN 750 MG in SODIUM CHLORIDE 0.9% 250 ML IVPB SCH ×2 (06:31→17:04)
[2023-05-18] MEDS: INSULIN ASPART (NovoLOG) 100 UNIT/ML VIAL SQ SCH ×7 (06:32→20:46)
[2023-05-18] MEDS: METOCLOPRAMIDE 10 MG TAB PO SCH ×3 (07:04→17:05)
[2023-05-18] MEDS: SODIUM CHLORIDE 0.9% 1,000 ML IV SCH ×3 (07:05→23:50)
--- NOTE | 2023-05-18 09:05 | HP ---
HISTORY AND PHYSICAL HISTORY OF PRESENT ILLNESS: This is a 53-year-old female who recently left the hospital. She became extremely nauseated and vomiting every time she goes home for unclear reasons. She came into the hospital with with history of pancreatitis, recently discharged. She came back with increased abdominal pain, nausea, and vomiting, history of gastroparesis REVIEW OF SYSTEMS: 14-point review of systems otherwise negative except for weakness, fatigue. Hemoglobin A1c is down to 10.9, which is improving. PAST MEDICAL HISTORY: Type 1 diabetes mellitus, COPD, nicotine addiction, musculoskeletal disorder, chronic neuropathy, frozen shoulder, neuropathy in the legs. PAST SURGICAL HISTORY: Tubal ligation, history of anxiety and depression FAMILY HISTORY: Father is adopted. Mother is adopted. MEDICATIONS: Home medicines: 1. Zofran. 2. Xanax. 3. Lipitor. 4. Pulmicort . 5. She takes mag oxide 200 mg. 6. Humalog. 7. Reglan. 8. . ALLERGIES: Fentanyl. PHYSICAL EXAMINATION: VITAL SIGNS: Pulse is like 100 to 130, respiratory rate 18 to 25, blood pressure PSYCH: She appears anxious and nervous. INTEGUMENT: Dry skin turgor, dry mucous membranes. CARDIOVASCULAR: S1, S2. LUNGS: Clear. GI: Soft. LABORATORY DATA: Hemoglobin is 11.6, white count 13.4. She looks anxious and nervous; pCO2 57, pH 7.42, bicarb 37, carbon dioxide 31. ASSESSMENT: Nausea, vomiting, severe gastroparesis, unclear etiology why she keeps vomiting. She has failed multiple medications. Sugars are improved. She is fine when she goes home PROGNOSIS: Guarded. MMODL / IJN: [id number] /
[2023-05-18] MEDS: INSULIN DETEMIR (LEVEMIR) 100 UNIT/ML SYR SQ SCH (09:20)
[2023-05-18] MEDS: POTASSIUM CHLORIDE ER 20 MEQ TAB.ER PO SCH (09:20)
[2023-05-18] MEDS: SULFAMETHOX-TMP 800-160MG 1 EACH TAB PO SCH (09:20)
[2023-05-18] MEDS: ALPRAZolam 0.25 MG TAB PO SCH ×2 (09:20→20:44)
[2023-05-18] MEDS: HYDROcodone/APAP 5-325MG 1 EACH TAB PO SCH ×2 (09:20→20:44)
[2023-05-18] MEDS: PANTOPRAZOLE 40 MG/10 ML VIAL IVP SCH ×2 (09:21→20:44)
[2023-05-18] MEDS: ONDANSETRON 4 MG TAB PO SCH (09:21)
[2023-05-18] MEDS: DULoxetine HCL 30 MG CAPSULE.DR PO SCH (09:21)
[2023-05-18] MEDS: MAGNESIUM OXIDE 400 MG TAB PO SCH (09:21)
[2023-05-18] MEDS: ATORVASTATIN 20 MG TAB PO SCH (09:21)
[2023-05-18] MEDS: amLODIPine 5 MG TAB PO SCH ×2 (09:21→20:45)
[2023-05-18] MEDS: IPRATROPIUM-ALBUTEROL 3 ML NEB INHALATION SCH ×2 (09:54→18:15)
[2023-05-18] MEDS: BUDESONIDE 0.5 MG/2 ML NEBU INHALATION SCH ×2 (09:54→18:52)
[2023-05-18 11:13] LABS: Basophils # (A) 0.08 X 10*3/uL (0.00-0.10); Basophils % (A) 0.8 %; Eosinophils # (A) 0.27 X 10*3/uL (0.04-0.35); Eosinophils % (A) 2.6 %; HGB 8.5 g/dL (12.0-15.0); Lymphocytes # (A) 2.89 X 10*3/uL (0.90-5.00); Lymphocytes % (A) 28.2 %; MCH 28.1 pg (27.0-32.0); MCHC 31.5 g/dL (32.0-37.0); MCV 89.1 FL (80.0-97.0); Mean Platelet Volume 10.5 FL (9.5-12.2); Monocytes % (A) 6.8 %; NRBC Per 100 WBC 0 X 10*3/uL (0.00-0.01); Neutrophils # (A) 6.29 X 10*3/uL (1.80-7.70); Neutrophils % (A) 61.4 %; Platelet Count 304 X 10*3/uL (140-440); RBC 3.03 X 10*6/uL (4.10-5.20); RDW 15.9 % (11.5-14.5); WBC 10.25 X 10*3/uL (4.50-10.00)
[2023-05-18 11:31] LABS: Glucose,Whole Blood 192 mg/dL (70-110)
[2023-05-18] MEDS: ONDANSETRON 4 MG/2 ML VIAL IVP PRN ×2 (11:58→17:05)
[2023-05-18 14:33] LABS: Glucose,Whole Blood 46 mg/dL (70-110)
[2023-05-18 14:55] LABS: Glucose,Whole Blood 221 mg/dL (70-110)
[2023-05-18 16:39] LABS: Glucose,Whole Blood 269 mg/dL (70-110)
[2023-05-18 20:04] LABS: Glucose,Whole Blood 99 mg/dL (70-110)
[2023-05-18] MEDS: METOCLOPRAMIDE 5 MG/ML 2 ML VIAL IVP SCH ×2 (20:45→23:51)
[2023-05-18] MEDS: MIRTAZAPINE 15 MG TAB PO SCH (20:45)
--- NOTE | 2023-05-18 22:36 | P.PN ---
Subjective Progress Note Date: 05/18/23 Principal diagnosis: Reason for follow-up is MRSA urinary tract infection Patient is a 53-year-old female with a past medical history seen for diabetes mellitus anxiety depression currently smoker history of diabetic gastroparesis presenting to the hospital with intractable nausea and vomiting and unable to keep anything down, patient does have positive UA with recent urine culture positive for MRSA.Patient did have a EGD completed yesterday with evidence of erosion in the mid and distal esophagus consistent with esophagitis and antral gastritis status postbiopsy On today's evaluation that is 05/18/2023, the patient denies having any fever or any chills. Still complaining of feeling nauseated no abdominal pain or diarrhea no chest pain shortness of breath or cough. Patient did have a white count of 12.25 creatinine 0.56. Objective - Vital Signs Vital signs: Vital Signs Temp 98.0 F 05/18/23 06:54 Pulse 112 H 05/18/23 06:54 Resp 16 05/18/23 06:54 BP 111/73 05/18/23 06:54 Pulse Ox 98 05/18/23 06:54 FiO2 Intake & Output 05/17/23 05/18/23 05/18/23 18:59 06:59 18:59 Intake Total 550 Output Total 410 Balance 550 -410 Weight 36.741 kg Intake: IV 550 Output: Urine 410 Other: Voiding Method Indwelling Catheter # Voids 1 - Exam GENERAL DESCRIPTION: A middle-aged female lying in bed in no distress RESPIRATORY SYSTEM: Unlabored breathing , clear to auscultation anteriorly HEART: S1 S2 regular rate and rhythm , ABDOMEN: Soft , no tenderness EXTREMITIES: No edema feet - Labs CBC & Chem 7: 05/18/23 04:07 05/18/23 04:07 Labs: Abnormal Lab Results - Last 24 Hours (Table) 05/17/23 05/17/23 05/18/23 Range/Units 16:03 17:12 04:07 WBC (4.50-10.00) X 10*3/uL RBC (4.10-5.20) X 10*6/uL Hgb (12.0-15.0) g/dL Hct (37.2-46.3) % MCHC (32.0-37.0) g/dL RDW (11.5-14.5) % Sodium (137-145) mmol/L POC Glucose (mg/dL) 285 H 211 H (70-110) mg/dL Hemoglobin A1c 10.4 H (<=6.0) % Calcium (8.4-10.2) mg/dL Total Protein (6.3-8.2) g/dL Albumin (3.5-5.0) g/dL 05/18/23 05/18/23 05/18/23 Range/Units 04:07 04:07 05:46 WBC 10.25 H (4.50-10.00) X 10*3/uL RBC 3.03 L (4.10-5.20) X 10*6/uL Hgb 8.5 L (12.0-15.0) g/dL Hct 27.0 L (37.2-46.3) % MCHC 31.5 L (32.0-37.0) g/dL RDW 15.9 H (11.5-14.5) % Sodium 135 L (137-145) mmol/L POC Glucose (mg/dL) 137 H (70-110) mg/dL Hemoglobin A1c (<=6.0) % Calcium 8.2 L (8.4-10.2) mg/dL Total Protein 4.5 L (6.3-8.2) g/dL Albumin 2.3 L (3.5-5.0) g/dL 05/18/23 Range/Units 11:30 WBC (4.50-10.00) X 10*3/uL RBC (4.10-5.20) X 10*6/uL Hgb (12.0-15.0) g/dL Hct (37.2-46.3) % MCHC (32.0-37.0) g/dL RDW (11.5-14.5) % Sodium (137-145) mmol/L POC Glucose (mg/dL) 192 H (70-110) mg/dL Hemoglobin A1c (<=6.0) % Calcium (8.4-10.2) mg/dL Total Protein (6.3-8.2) g/dL Albumin (3.5-5.0) g/dL Assessment and Plan (1) UTI (urinary tract infection) Current Visit: Yes Status: Acute Code(s): N39.0 - URINARY TRACT INFECTION, SITE NOT SPECIFIED SNOMED Code(s): 95413014 Plan: 1patient present to hospital intractable nausea vomiting most likely due to gastroparesis and question of possible gastritis/esophagitis patient will be seen by GI planning for EGD this afternoon 2-patient also noticed to have positive UA urinary symptom retention requiring Carcamo catheter with recent urine culture positive for MRSA will be related to MRSA UTI in this patient with intractable vomiting unable to keep anything down we will discontinue Bactrim DS 2- patient to continue with vancomycin till her GI condition stabilizes Dictation was produced using [employer] dictation software. please excuse any grammatical, word or spelling errors. Time with Patient: Less than 30
--- NOTE | 2023-05-19 01:01 | PN ---
PROGRESS NOTE SUBJECTIVE: A 53-year-old white female, gastroparesis, nausea and vomiting, gave her IV Reglan along with Zofran and scopolamine patch, possibly will have to be transferred for gastric pump if she continues to have nausea and vomiting does not get better recommendation for EGD. OBJECTIVE: CARDIOVASCULAR: S1, S2. LUNGS: Clear. GI: Soft. HEMATOLOGY: Negative Homans. PSYCH: Fair mood and affect. Continue current medications as mentioned above. GERD and esophagitis on biopsies, on the EGD. Possibly we will have to go on transfer down to the [facility] if she does not improve. Advance diet as tolerated. MMODL / IJN: [id number] /
[2023-05-19] MEDS: METOCLOPRAMIDE 5 MG/ML 2 ML VIAL IVP SCH ×4 (05:10→23:02)
[2023-05-19] MEDS: HYDROmorphone 0.5 MG/0.5 ML SYRINGE IVP PRN ×6 (05:11→23:02)
[2023-05-19] MEDS: VANCOMYCIN 750 MG in SODIUM CHLORIDE 0.9% 250 ML IVPB SCH ×2 (05:11→18:38)
[2023-05-19] MEDS: SODIUM CHLORIDE 0.9% 1,000 ML IV SCH (05:12)
[2023-05-19 05:58] LABS: Glucose,Whole Blood 111 mg/dL (70-110)
[2023-05-19] MEDS: INSULIN ASPART (NovoLOG) 100 UNIT/ML VIAL SQ SCH ×7 (06:18→20:25)
[2023-05-19] MEDS: INSULIN DETEMIR (LEVEMIR) 100 UNIT/ML SYR SQ SCH (06:53)
[2023-05-19] MEDS: PANTOPRAZOLE 40 MG TABLET PO SCH ×2 (06:53→18:04)
[2023-05-19] MEDS: ONDANSETRON 4 MG TAB PO SCH (08:16)
[2023-05-19] MEDS: HYDROcodone/APAP 5-325MG 1 EACH TAB PO SCH ×2 (08:16→20:39)
[2023-05-19] MEDS: ONDANSETRON 4 MG/2 ML VIAL IVP PRN ×2 (08:29→15:35)
[2023-05-19] MEDS: ATORVASTATIN 20 MG TAB PO SCH (08:30)
[2023-05-19] MEDS: MAGNESIUM OXIDE 400 MG TAB PO SCH (08:30)
[2023-05-19] MEDS: DULoxetine HCL 30 MG CAPSULE.DR PO SCH (08:30)
[2023-05-19] MEDS: amLODIPine 5 MG TAB PO SCH ×2 (08:30→20:39)
[2023-05-19] MEDS: ALPRAZolam 0.25 MG TAB PO SCH ×2 (08:30→20:39)
[2023-05-19] MEDS: POTASSIUM CHLORIDE ER 20 MEQ TAB.ER PO SCH (08:30)
[2023-05-19] MEDS: BUDESONIDE 0.5 MG/2 ML NEBU INHALATION SCH ×2 (08:58→20:46)
[2023-05-19] MEDS: IPRATROPIUM-ALBUTEROL 3 ML NEB INHALATION SCH ×2 (08:59→20:46)
[2023-05-19 12:00] LABS: Glucose,Whole Blood 87 mg/dL (70-110)
--- NOTE | 2023-05-19 15:14 | P.PN ---
Subjective Progress Note Date: 05/19/23 Principal diagnosis: Reason for follow-up is MRSA urinary tract infection Patient is a 53-year-old female with a past medical history seen for diabetes mellitus anxiety depression currently smoker history of diabetic gastroparesis presenting to the hospital with intractable nausea and vomiting and unable to keep anything down, patient does have positive UA with recent urine culture positive for MRSA.Patient did have a EGD completed yesterday with evidence of erosion in the mid and distal esophagus consistent with esophagitis and antral gastritis status postbiopsy On today's evaluation that is 05/19/2023 the patient denies any fever or any chills, the patient denies shortness of breath chest pain or cough, the patient still complaining of nausea and vomiting , however no worsening abdominal pain or diarrhea. Patient did have a white count of 10.25, creatinine 0.56 as of yesterday Objective - Vital Signs Vital signs: Vital Signs Temp 97.7 F 05/19/23 07:48 Pulse 119 H 05/19/23 07:48 Resp 19 05/19/23 07:48 BP 178/107 05/19/23 07:48 Pulse Ox 97 05/19/23 07:48 FiO2 Intake & Output 05/18/23 05/19/23 05/19/23 18:59 06:59 18:59 Output Total 300 250 680 Balance -300 -250 -680 Output: Urine 300 250 680 Other: Voiding Method Indwelling Catheter Indwelling Catheter Indwelling Catheter # Voids 1 - Exam GENERAL DESCRIPTION: A middle-aged female lying in bed in no distress RESPIRATORY SYSTEM: Unlabored breathing , clear to auscultation anteriorly HEART: S1 S2 regular rate and rhythm , ABDOMEN: Soft , no tenderness EXTREMITIES: No edema feet - Labs CBC & Chem 7: 05/18/23 04:07 05/18/23 04:07 Labs: Abnormal Lab Results - Last 24 Hours (Table) 05/18/23 05/19/23 Range/Units 16:37 05:57 POC Glucose (mg/dL) 269 H 111 H (70-110) mg/dL Assessment and Plan (1) UTI (urinary tract infection) Current Visit: Yes Status: Acute Code(s): N39.0 - URINARY TRACT INFECTION, SITE NOT SPECIFIED SNOMED Code(s): 67926867 Plan: 1patient present to hospital intractable nausea vomiting most likely due to gastroparesis and question of possible gastritis/esophagitis patient will be seen by GI planning for EGD this afternoon 2-patient also noticed to have positive UA urinary symptom retention requiring Carcamo catheter with recent urine culture positive for MRSA will be related to MRSA UTI in this patient with intractable vomiting unable to keep anything down we will discontinue Bactrim DS 2- patient did have some clinical improvement as for as UTI, to continue with vancomycin till her GI condition stabilizes before transition to by mouth Dictation was produced using [employer] dictation software. please excuse any grammatical, word or spelling errors. Time with Patient: Less than 30
[2023-05-19] MEDS ORDERED: VANCOMYCIN TROUGH DUE 1 EACH MISC MISCELLANE ONE (17:00)
[2023-05-19 17:02] LABS: Glucose,Whole Blood 53 mg/dL (70-110)
[2023-05-19 18:02] LABS: Glucose,Whole Blood 80 mg/dL (70-110)
[2023-05-19 19:25] LABS: Glucose,Whole Blood 127 mg/dL (70-110)
[2023-05-19] MEDS: MIRTAZAPINE 15 MG TAB PO SCH (20:39)
--- NOTE | 2023-05-20 01:53 | PN ---
PROGRESS NOTE SUBJECTIVE: Acute abdominal pain, nausea, and vomiting. The patient possibly wants to be transferred to [facility], waiting for GI recommendations. OBJECTIVE: VITAL SIGNS: Pulse is low 100, temp 97 to 98, blood pressures is 130s to 140s to 102 over 60s to 62s, O2 98 on room air. CARDIOVASCULAR: S1, S2. LUNGS: Clear. GI: Soft. Sugar has been low to high. We are going to cut down her dose of insulin. Possibly be transferred down to [facility] for possible gastric pump placement. PROGNOSIS: Guarded. MMODL / IJN: [id number] /
[2023-05-20 06:15] LABS: Glucose,Whole Blood 77 mg/dL (70-110)
[2023-05-20] MEDS: INSULIN ASPART (NovoLOG) 100 UNIT/ML VIAL SQ SCH ×7 (06:16→20:37)
[2023-05-20] MEDS: METOCLOPRAMIDE 5 MG/ML 2 ML VIAL IVP SCH ×4 (06:20→23:35)
[2023-05-20] MEDS: VANCOMYCIN 750 MG in SODIUM CHLORIDE 0.9% 250 ML IVPB SCH ×2 (06:20→18:27)
[2023-05-20] MEDS: PANTOPRAZOLE 40 MG TABLET PO SCH ×2 (06:20→18:27)
[2023-05-20] MEDS: HYDROmorphone 0.5 MG/0.5 ML SYRINGE IVP PRN ×4 (06:21→23:34)
[2023-05-20 08:50] LABS: African American GFR (CKD) >90 (>60 ml/min/1.73 sqM); Non-African American GFR(CKD) >90 (>60 ml/min/1.73 sqM)
[2023-05-20] MEDS: ALPRAZolam 0.25 MG TAB PO SCH ×2 (08:53→20:46)
[2023-05-20] MEDS: INSULIN DETEMIR (LEVEMIR) 100 UNIT/ML SYR SQ SCH (08:53)
[2023-05-20] MEDS: amLODIPine 5 MG TAB PO SCH ×2 (08:54→23:24)
[2023-05-20] MEDS: HYDROcodone/APAP 5-325MG 1 EACH TAB PO SCH ×2 (08:54→20:46)
[2023-05-20] MEDS: MAGNESIUM OXIDE 400 MG TAB PO SCH (08:55)
[2023-05-20] MEDS: ONDANSETRON 4 MG TAB PO SCH (08:55)
[2023-05-20] MEDS: POTASSIUM CHLORIDE ER 20 MEQ TAB.ER PO SCH (08:55)
[2023-05-20] MEDS: ATORVASTATIN 20 MG TAB PO SCH (08:55)
[2023-05-20] MEDS: DULoxetine HCL 30 MG CAPSULE.DR PO SCH (08:58)
[2023-05-20] MEDS: IPRATROPIUM-ALBUTEROL 3 ML NEB INHALATION SCH ×2 (09:25→21:45)
[2023-05-20] MEDS: BUDESONIDE 0.5 MG/2 ML NEBU INHALATION SCH ×2 (09:25→21:45)
[2023-05-20] MEDS: SODIUM CHLORIDE 0.9% 1,000 ML IV SCH ×2 (10:54→23:35)
--- NOTE | 2023-05-20 11:00 | P.PN ---
Subjective Progress Note Date: 05/20/23 Principal diagnosis: Nausea and vomiting, gastroparesis This is a 53-year-old female who presented to the emergency department with hyperglycemia and nausea and vomiting. She has a past medical history including insulin-dependent diabetes not well-controlled, states that she recently got an insulin pump however it is not activated yet. Patient was admitted for diabetic ketoacidosis, with intractable nausea and vomiting earlier this week and gastroenterology was consulted for pancreatitis. She was discharged yesterday and came back to the emergency department stating she had abdominal pain, and nausea and vomiting. She is currently lying in bed appears comfortable. States she has no further nausea or vomiting. She is currently nothing by mouth. She isn't sure when last endoscopic evaluation was. Denies any hematemesis. Reports most of her abdominal pain in the epigastric region. 05/20/2023 Patient seen and examined today as a follow-up by gastroenterology. Patient had an upper endoscopy done on Saturday with findings of esophagitis, mild antral gastritis and small amounts of retained solid food in the stomach suggestive of diabetic gastroparesis as well as a duodenal polyp status post biopsy. Patient today states nausea and vomiting is improved. She is able to tolerate solid foods. According to the patient and her PCP Dr. Pike there is discussion for transfer to [facility] for gastric pump placement. She currently denies any abdominal pain, nausea or vomiting. Objective - Vital Signs Vital signs: Vital Signs Temp 98.7 F 05/20/23 07:00 Pulse 108 H 05/20/23 07:00 Resp 17 05/20/23 07:00 BP 106/71 05/20/23 07:00 Pulse Ox 98 05/20/23 07:00 FiO2 Intake & Output 05/19/23 05/20/23 05/20/23 18:59 06:59 18:59 Output Total 1230 875 Balance -1230 -875 Output: Urine 1230 875 Other: Voiding Method Indwelling Catheter Indwelling Catheter # Voids 1 - Exam General appearance: The patient is alert, oriented, appears in no acute distress. Thin. HET: Head is normocephalic and atraumatic. Conjunctiva pink. Sclera anicteric. Neck: Supple without lymphadenopathy. Abdomen: Soft, nontender, nondistended with bowel sounds. No guarding or rigidity. Extremities: Normal skin color and turgor. No pedal edema Skin: No rashes, no jaundice Neurological: No focal deficits. Alert and oriented. - Labs CBC & Chem 7: 05/18/23 04:07 05/20/23 08:21 Labs: Abnormal Lab Results - Last 24 Hours (Table) 05/19/23 05/19/23 05/20/23 Range/Units 17:00 19:24 08:21 Creatinine 0.46 L (0.52-1.04) mg/dL POC Glucose (mg/dL) 53 L 127 H (70-110) mg/dL Assessment and Plan (1) Nausea and vomiting Narrative/Plan: 53-year-old female with uncontrolled diabetes mellitus who was just recently hospitalized for acute pancreatitis unclear etiology was discharged yesterday return back with elevated sugars near 400 as well as nausea and vomiting. Patient admitted given IV fluids and anti-emetics. States that she is feeling better. She states is normal for her to have nausea and sometimes vomiting. May be related to underlying diabetic gastroparesis. Also can be related to uncontrolled blood sugars and diabetic ketoacidosis. Nonetheless we'll treat symptomatically as well as recommend upper endoscopy as patient is unclear of last time she had one and there is no records available. 05/20/2023 Patient is status post EGD with findings of esophagitis, mild antral gastritis and diabetic gastroparesis. Patient can follow up outpatient for duodenal polyp biopsy. Continue with Protonix. Current Visit: Yes Status: Acute Code(s): R11.2 - NAUSEA WITH VOMITING, UNSPECIFIED SNOMED Code(s): 86692677 (2) Diabetic gastroparesis Narrative/Plan: Discussed with patient strict glycemic control. To eat small frequent meals versus large meals. Patient can follow-up with gastroenterology outpatient and discuss possible referral for gastric pump placement. Current Visit: Yes Status: Acute Code(s): E11.43 - TYPE 2 DIABETES W DIABETIC AUTONOMIC (POLY)NEUROPATHY; K31.84 - GASTROPARESIS SNOMED Code(s): 500355457 (3) Insulin dependent diabetes mellitus Current Visit: Yes Status: Acute Code(s): CYO0108 - SNOMED Code(s): 59289295 (4) Hyperglycemia Current Visit: Yes Status: Acute Code(s): R73.9 - HYPERGLYCEMIA, UNSPECIFIED SNOMED Code(s): 43389509 Plan: 1. Continue symptomatic and supportive care 2. Continue Protonix 40 mg twice a day 3. Antiemetics as needed 4. Diet as tolerated, discussed with patient importance of strict glycemic control and eating small frequent meals versus large meals 5. Patient to follow-up with gastroenterology for duodenal polyp biopsy results and gastroparesis. Can discuss referral for gastric pump placement as an outpatient Thank you for this consultation, we will sign off at this time. Dr. Shakira Bear I agree with the dictator's note, documented as a scribe by Leigh Ordonez.
[2023-05-20 11:29] LABS: Glucose,Whole Blood 118 mg/dL (70-110)
[2023-05-20 13:35] VITALS: BMI 16.3
[2023-05-20] MEDS: ONDANSETRON 4 MG/2 ML VIAL IVP PRN (16:27)
[2023-05-20 16:34] LABS: Glucose,Whole Blood 69 mg/dL (70-110)
[2023-05-20 17:00] LABS: Glucose,Whole Blood 94 mg/dL (70-110)
[2023-05-20 20:35] LABS: Glucose,Whole Blood 134 mg/dL (70-110)
[2023-05-20] MEDS: MIRTAZAPINE 15 MG TAB PO SCH (20:46)
[2023-05-21 02:53] VITALS: PULSE 105; TEMP 97.7
[2023-05-21] MEDS: HYDROmorphone 0.5 MG/0.5 ML SYRINGE IVP PRN ×2 (05:39→10:14)
[2023-05-21] MEDS: VANCOMYCIN 750 MG in SODIUM CHLORIDE 0.9% 250 ML IVPB SCH (05:39)
[2023-05-21] MEDS: METOCLOPRAMIDE 5 MG/ML 2 ML VIAL IVP SCH (05:39)
[2023-05-21 05:43] LABS: Glucose,Whole Blood 167 mg/dL (70-110)
[2023-05-21 07:20] LABS: African American GFR (CKD) >90 (>60 ml/min/1.73 sqM); Non-African American GFR(CKD) >90 (>60 ml/min/1.73 sqM)
[2023-05-21] MEDS: BUDESONIDE 0.5 MG/2 ML NEBU INHALATION SCH (07:43)
[2023-05-21] MEDS: IPRATROPIUM-ALBUTEROL 3 ML NEB INHALATION SCH (07:43)
[2023-05-21] MEDS: ALPRAZolam 0.25 MG TAB PO SCH (08:43)
[2023-05-21] MEDS: amLODIPine 5 MG TAB PO SCH (08:43)
[2023-05-21] MEDS: ONDANSETRON 4 MG TAB PO SCH (08:43)
[2023-05-21] MEDS: POTASSIUM CHLORIDE ER 20 MEQ TAB.ER PO SCH (08:43)
[2023-05-21] MEDS: MAGNESIUM OXIDE 400 MG TAB PO SCH (08:43)
[2023-05-21] MEDS: DULoxetine HCL 30 MG CAPSULE.DR PO SCH (08:43)
[2023-05-21] MEDS: INSULIN DETEMIR (LEVEMIR) 100 UNIT/ML SYR SQ SCH (08:44)
[2023-05-21] MEDS: HYDROcodone/APAP 5-325MG 1 EACH TAB PO SCH (08:44)
[2023-05-21] MEDS: INSULIN ASPART (NovoLOG) 100 UNIT/ML VIAL SQ SCH ×2 (08:44→08:45)
[2023-05-21] MEDS: PANTOPRAZOLE 40 MG TABLET PO SCH (08:45)
[2023-05-21] MEDS: ATORVASTATIN 20 MG TAB PO SCH (09:28)
[2023-05-21 10:38] VITALS: BP 117/76; RESP 17
--- NOTE | 2023-05-21 16:52 | P.PN ---
Subjective Progress Note Date: 05/20/23 Principal diagnosis: Reason for follow-up is MRSA urinary tract infection Patient is a 53-year-old female with a past medical history seen for diabetes mellitus anxiety depression currently smoker history of diabetic gastroparesis presenting to the hospital with intractable nausea and vomiting and unable to keep anything down, patient does have positive UA with recent urine culture positive for MRSA.Patient did have a EGD completed yesterday with evidence of erosion in the mid and distal esophagus consistent with esophagitis and antral gastritis status postbiopsy On today's evaluation that is 05/20/2023 the patient remains to be afebrile, the patient is breathing comfortably on room air and no need for supplemental oxygen, the patient denies having any chest pain denies any cough or sputum production, patient denies any abdominal pain did have improvement in nausea and no further vomiting. Patient did have a white count of 10.25 as of 05/18/2023, creatinine is 0.46 Objective - Vital Signs Vital signs: Vital Signs Temp 98.7 F 05/20/23 16:24 Pulse 116 H 05/20/23 16:24 Resp 18 05/20/23 16:24 BP 144/89 05/20/23 16:24 Pulse Ox 99 05/20/23 16:24 FiO2 Intake & Output 05/20/23 05/20/23 05/21/23 06:59 18:59 06:59 Output Total 875 1600 Balance -875 -1600 Weight 36.741 kg Output: Urine 875 1600 Other: Voiding Method Indwelling Catheter Indwelling Catheter # Voids 1 - Exam GENERAL DESCRIPTION: A middle-aged female lying in bed in no distress RESPIRATORY SYSTEM: Unlabored breathing , clear to auscultation anteriorly HEART: S1 S2 regular rate and rhythm , ABDOMEN: Soft , no tenderness EXTREMITIES: No edema feet - Labs CBC & Chem 7: 05/18/23 04:07 05/21/23 06:56 Labs: Abnormal Lab Results - Last 24 Hours (Table) 05/20/23 05/20/23 05/20/23 Range/Units 08:21 11:28 16:32 Creatinine 0.46 L (0.52-1.04) mg/dL POC Glucose (mg/dL) 118 H 69 L (70-110) mg/dL 05/20/23 Range/Units 20:34 Creatinine (0.52-1.04) mg/dL POC Glucose (mg/dL) 134 H (70-110) mg/dL Microbiology - Last 24 Hours (Table) 05/19/23 01:00 Urine Culture - Preliminary Urine,Catheterized Presumptive Staph aureus Assessment and Plan (1) UTI (urinary tract infection) Status: Acute Code(s): N39.0 - URINARY TRACT INFECTION, SITE NOT SPECIFIED SNOMED Code(s): 27018688 Plan: 1patient present to hospital intractable nausea vomiting most likely due to gastroparesis and question of possible gastritis/esophagitis patient will be se en by GI planning for EGD this afternoon 2-patient also noticed to have positive UA urinary symptom retention requiring Carcamo catheter with recent urine culture positive for MRSA will be related to MR SA UTI in this patient with intractable vomiting unable to keep anything down we will discontinue Bactrim DS 2- patient has shown clinical improvement as for as UTI is concerned, patient to continue with her vancomycin watching her kidney function closely Dictation was produced using [employer] dictation software. please excuse any grammatical, word or spelling errors. Time with Patient: Less than 30
--- NOTE | 2023-05-21 16:53 | P.PN ---
Subjective Progress Note Date: 05/21/23 Principal diagnosis: Reason for follow-up is MRSA urinary tract infection Patient is a 53-year-old female with a past medical history seen for diabetes mellitus anxiety depression currently smoker history of diabetic gastroparesis presenting to the hospital with intractable nausea and vomiting and unable to keep anything down, patient does have positive UA with recent urine culture positive for MRSA.Patient did have a EGD completed yesterday with evidence of erosion in the mid and distal esophagus consistent with esophagitis and antral gastritis status postbiopsy On today's evaluation that is 05/21/2023, the patient continues to be afebrile and is breathing comfortably on room air, and patient denies any shortness of breath, chest pain, no cough or sputum production, patient did have improvement in her nausea and no further vomiting, the patient denies having any diarrhea and no abdominal pain. Patient did have a white count of 10.25 as of 05/18/2023, creatinine is 0.46 Objective - Vital Signs Vital signs: Vital Signs Temp 97.7 F 05/21/23 07:46 Pulse 105 H 05/21/23 08:40 Resp 17 05/21/23 07:46 BP 117/76 05/21/23 07:46 Pulse Ox 95 05/21/23 07:46 FiO2 Intake & Output 05/20/23 05/21/23 05/21/23 18:59 06:59 18:59 Intake Total 1125 Output Total 4209 151 2827 Balance -1600 700 -1100 Weight 36.741 kg Intake: IV 875 Sodium Chloride 0.9% 1, 375 000 ml @ 75 mls/hr IV . [id number] [facility] Rx#:[id number] Vancomycin 750 mg In 500 Sodium Chloride 0.9% 250 ml @ 125 mls/hr IVPB Q12H [facility] Rx#:[id number] Oral 250 Output: Urine 2341 657 3690 Other: Voiding Method Indwelling Catheter Indwelling Catheter Indwelling Catheter - Exam GENERAL DESCRIPTION: A middle-aged female lying in bed in no distress RESPIRATORY SYSTEM: Unlabored breathing , clear to auscultation anteriorly HEART: S1 S2 regular rate and rhythm , ABDOMEN: Soft , no tenderness EXTREMITIES: No edema feet - Labs CBC & Chem 7: 05/18/23 04:07 05/21/23 06:56 Labs: Abnormal Lab Results - Last 24 Hours (Table) 05/20/23 05/20/23 05/20/23 Range/Units 11:28 16:32 20:34 Creatinine (0.52-1.04) mg/dL POC Glucose (mg/dL) 118 H 69 L 134 H (70-110) mg/dL 05/21/23 05/21/23 Range/Units 05:41 06:56 Creatinine 0.46 L (0.52-1.04) mg/dL POC Glucose (mg/dL) 167 H (70-110) mg/dL Microbiology - Last 24 Hours (Table) 05/19/23 01:00 Urine Culture - Final Urine,Catheterized Methicillin resist S. aureus Assessment and Plan (1) UTI (urinary tract infection) Status: Acute Code(s): N39.0 - URINARY TRACT INFECTION, SITE NOT SPECIFIED SNOMED Code(s): 54255200 Plan: 1patient present to hospital intractable nausea vomiting most likely due to gastroparesis and question of possible gastritis/esophagitis patient will be seen by GI planning for EGD this afternoon 2-patient also noticed to have positive UA urinary symptom retention requiring Carcamo catheter with recent urine culture positive for MRSA will be related to MRSA UTI , urine culture this admission also positive for MRSA 3- patient has shown clinical improvement as for as UTI is concerned, patient has received adequate IV vancomycin during this hospital stay and recommended no antibiotic on discharge Dictation was produced using [employer] dictation software. please excuse any grammatical, word or spelling errors.
== END 2023-05-21 11:59 | disposition home or self-care (01) | DRG 48 ==
LOC: EC 12:18 → 6NMEDSUR 14:58 → OBSVTOIN 14:59 → 6NMEDSUR 15:46 → 4SSUR 05-17 16:16
PROVIDERS: ADMIT Family Medicine; ATTEND Family Medicine
PROC: 0DB78ZX Excision of Stomach, Pylorus, Via Natural or Artificial Opening Endoscopic, Diagnostic (ICD-10-PCS; principal; 2023-05-17 08:35)
PROC: 0DB98ZX Excision of Duodenum, Via Natural or Artificial Opening Endoscopic, Diagnostic (ICD-10-PCS; principal; 2023-05-17 08:35)
PROC: 0DB28ZX Excision of Middle Esophagus, Via Natural or Artificial Opening Endoscopic, Diagnostic (ICD-10-PCS; principal; 2023-05-17 08:35)
PROC: 0DB38ZX Excision of Lower Esophagus, Via Natural or Artificial Opening Endoscopic, Diagnostic (ICD-10-PCS; principal; 2023-05-17 08:35)
DX: E10.43 Type 1 diabetes mellitus with diabetic autonomic (poly)neuropathy (principal); I10 Essential (primary) hypertension; K29.70 Gastritis, unspecified, without bleeding; K31.7 Polyp of stomach and duodenum; E10.42 Type 1 diabetes mellitus with diabetic polyneuropathy; K20.90 Esophagitis, unspecified without bleeding; K31.84 Gastroparesis; N39.0 Urinary tract infection, site not specified; T18.2XXA Foreign body in stomach, initial encounter; Z79.4 Long term (current) use of insulin; Z79.899 Other long term (current) drug therapy; Z86.14 Personal history of Methicillin resistant Staphylococcus aureus infection; B95.62 Methicillin resistant Staphylococcus aureus infection as the cause of diseases classified elsewhere; Z88.5 Allergy status to narcotic agent; R33.8 Other retention of urine; X58.XXXA Exposure to other specified factors, initial encounter; Z98.51 Tubal ligation status
CPT/HCPCS: 36415; 43239; 80053; 80202; 81001; 81025; 82150; 82565; 82803; 83036; 83605; 83690; 85025; 85610; 85730; 87077; 87086; 87186; 94640; 96361; 96374; 96375; 96376; 99285

== ENCOUNTER 2023-06-15 03:20 | Inpatient (IN) | payer OTHER ==
[2023-06-15] MEDS ORDERED: PANTOPRAZOLE 40 MG/10 ML VIAL IVP STA (03:36)
[2023-06-15] MEDS ORDERED: SODIUM CHLORIDE 0.9% 1,000 ML IV STA (03:36)
[2023-06-15] MEDS ORDERED: METOCLOPRAMIDE 5 MG/ML 2 ML VIAL IVP STA (03:37)
[2023-06-15] MEDS ORDERED: diphenhydrAMINE 50 MG/ML 1 ML VIAL IVP STA (03:37)
[2023-06-15 03:40] LABS: Glucose,Whole Blood 344 mg/dL (70-110)
--- NOTE | 2023-06-15 04:05 | ED ---
General Adult HPI - General Chief complaint: Abdominal Pain Stated complaint: ABD pain Time Seen by Provider: 06/15/23 03:22 Source: patient, EMS Mode of arrival: EMS - History of Present Illness Initial comments: Patient is a 53-year-old female presents emergency Department complaining of abdominal pain. Has a history of being PEG tube dependent, diabetes, gastroparesis. states pain is been ongoing for a few days with decreased oral intake. Presents for further evaluation of this time. - Related Data Home Medications Medication Instructions Recorded Confirmed Ondansetron [Zofran] 4 mg PO DAILY 08/12/15 05/16/23 ALPRAZolam [Xanax] 0.25 mg PO BID 05/12/23 05/16/23 Atorvastatin [Lipitor] 20 mg PO DAILY 05/12/23 05/16/23 Budesonide [Pulmicort] 0.5 mg INHALATION RT-BID 05/12/23 05/16/23 DULoxetine HCL [Cymbalta] 30 mg PO DAILY 05/12/23 05/16/23 HYDROcodone/APAP 5-325MG [[place] 1 tab PO BID 05/12/23 05/16/23 5-325] Insulin Glargine,Hum.rec.anlog 9 units SQ DAILY 05/12/23 05/16/23 [Lantus Solostar Pen] Insulin Lispro [humaLOG Kwikpen] 2 unit SQ AC-TID 05/12/23 05/16/23 Insulin Lispro [humaLOG Kwikpen] See Protocol SQ AC-TID 05/12/23 05/16/23 Ipratropium-Albuterol Nebulize 3 ml INHALATION RT-BID 05/12/23 05/16/23 [Duoneb 0.5 mg-3 mg/3 ml Soln] Magnesium Oxide [Mag-Ox] 400 mg PO DAILY 05/12/23 05/16/23 Mirtazapine [Remeron] 30 mg PO HS 05/12/23 05/16/23 Omeprazole 20 mg PO DAILY 05/12/23 05/16/23 Potassium Chloride ER [K-Dur 20] 20 meq PO DAILY 05/12/23 05/16/23 amLODIPine [Norvasc] 5 mg PO BID 05/12/23 05/16/23 Previous Rx's Medication Instructions Recorded Metoclopramide [Reglan] 10 mg PO ACHS 30 Days #120 tab 05/15/23 Scopolamine 1 mg/72 Hr Patch 1 patch TRANSDERM Q72H 30 Days #10 05/15/23 [TransDerm Scop] patch Pantoprazole [Protonix] 40 mg PO AC-BID 30 Days #60 tab 05/21/23 Allergies Allergy/AdvReac Type Severity Reaction Status Date / Time fentanyl Allergy Unknown Verified 06/15/23 03:32 Review of Systems ROS Statement: Those systems with pertinent positive or pertinent negative responses have been documented in the HPI. Review of Systems: CONST: Denies fever EYES: Denies blurry vision ENT: Denies nasal congestion C/V: Endorses chest pain RESP: Denies shortness of breath GI: Endorses abdominal pain : Denies dysuria SKIN: Denies rash. MSK: Denies joint pain. NEURO: Denies headache ROS Other: All systems not noted in ROS Statement are negative. 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 Date of last positivie culture/infection: 05/19/23 MDRO Source:: Urine Past Surgical History: Tubal Ligation Past Anesthesia/Blood Transfusion Reactions: No Reported Reaction Additional Past Anesthesia/Blood Transfusion Reaction / Comment(s): UNK FAMILY HX Past Psychological History: Anxiety, Depression Smoking Status: Current every day smoker Past Alcohol Use History: None Reported Past Drug Use History: Marijuana - Past Family History Father History Unknown: Yes Additional Family Medical History / Comment(s): unknown-adopted Mother History Unknown: Yes Additional Family Medical History / Comment(s): unknown- adopted General Exam - General Exam Comments Initial Comments: General: Patient is cachectic. Appears in mild to moderate distress secondary to abdominal discomfort. HEAD: Normal with no signs of head trauma. EYES: PERRLA, EOMI, conjunctiva normal, no discharge. ENT: Hearing grossly intact, normal oropharynx. Dry mucous membranes. RESPIRATORY: Clear breath sounds bilaterally. No wheezes, rales, or rhonchi. C/V: Tachycardic. S1 and S2 auscultated, no edema, peripheral pulses 2+ and intact throughout ABD: Abdomen is soft, nondistended. Diffuse nonfocal tenderness palpation. No guarding. No rebound tenderness. No peritoneal signs. EXT: Normal range of motion, no obvious deformity SKIN: No rashes or lesions observed on exposed skin. NEURO: Alert and oriented 4. Course Vital Signs 06/15/23 06/15/23 06/15/23 03:24 05:00 06:00 Temperature 97.5 F L Pulse Rate 125 H 114 H 115 H Respiratory 20 16 15 Rate Blood Pressure 143/87 138/75 125/84 O2 Sat by Pulse 100 100 100 Oximetry Medical Decision Making - Medical Decision Making Was pt. sent in by a medical professional or institution (, PA, [employer], urgent care, hospital, or [facility]...) When possible be specific @ -No Did you speak to anyone other than the patient for history (EMS, parent, family, police, friend...)? What history was obtained from this source @ -No Did you review nursing and triage notes (agree or disagree)? Why? @ -I reviewed and agree with nursing and triage notes Were old charts reviewed (outside hosp., previous admission, EMS record, old EKG, old radiological studies, urgent care reports/EKG's, [facility] records)? Report findings @ -Old charts reviewed Differential Diagnosis (chest pain, altered mental status, abdominal pain women, abdominal pain men, vaginal bleeding, weakness, fever, dyspnea, syncope, headache, dizziness, GI bleed, back pain, seizure, CVA, palpatations, mental health, musculoskeletal)? @ -Differential Abdominal Pain Women: Appendicitis, Cholecystitis, diverticulosis, ischemic bowel, pancreatitis, hepatitis, UTI, gastroenteritis, AAA, incarcerated hernia, bowel obstruction, constipation, inflammatory bowel, hepatitis, peptic ulcer disease, splenic infarction, perforated viscus, vulvitis, ovarian torsion, PID, kidney stone, placenta abruption, this is not meant to be an all-inclusive list EKG interpreted by me (3pts min.). @ -As above X-rays interpreted by me (1pt min.). @ -Chest x-ray shows no obvious acute cardiopulmonary process. CT interpreted by me (1pt min.). @ -CT reveals esophagitis, PEG tube and no other obvious acute process. U/S interpreted by me (1pt. min.). @ -None done What testing was considered but not performed or refused? (CT, X-rays, U/S, labs)? Why? @ -None What meds were considered but not given or refused? Why? @ -None Did you discuss the management of the patient with other professionals (fletcher rey i.e. , DANA, [employer], lab, RT, psych nurse, rn social work, aircraft powerplant repairer, teacher, police liaison officer, caser)? Give summary @ - spoke with the admitting team, Dr. Romero who was covering for Dr. Pike who accepted the patient. Was smoking cessation discussed for >3mins.? @ -No Was critical care preformed (if so, how long)? @ -No Were there social determinants of health that impacted care today? How? (Homelessness, low income, unemployed, alcoholism, drug addiction, transportatio n, low edu. Level, literacy, decrease access to med. care, skilled nursing, rehab)? @ -No Was there de-escalation of care discussed even if they declined (Discuss DNR or withdrawal of care, Hospice)? DNR status @ -No What co-morbidities impacted this encounter? (DM, HTN, Smoking, COPD, CAD, Cancer, CVA, ARF, Chemo, Hep., AIDS, mental health diagnosis, sleep apnea, morbid obesity)? @ -None Was patient admitted / discharged? Hospital course, mention meds given and route, prescriptions, significant lab abnormalities, going to OR and other pertinent info. @ -Based on the patient's presentation and physical exam, presents with acute on chronic abdominal pain. We'll obtain abdominal laboratory studies. She'll be sent likely treated with IV Reglan, Benadryl, Protonix, fluids. Patient agreement with this plan. Vital signs remarkable for tachycardia. EKG shows no signs of acute ischemia.Chest x-ray reveals no obvious acute cardio pulmonary process. Patient's laboratory studies are remarkable for a leukocytosis of 13, a hemolyzed potassium of 6.1, repeat is 5.3. Patient's platelet count is elevated to 1000. Patient is hyperglycemic but no evidence of DKA at this time. Troponin is undetectable. Urine is still pending. CT imaging remarkable for esophagitis. I updated the patient. She will be admitted for failure to thrive, as well as abdominal pain. She was in agreement this plan. I spoke with the admitting team, Dr. Romero who was covering for Dr. Pike who accepted the patient. Undiagnosed new problem with uncertain prognosis? @ -No Drug Therapy requiring intensive monitoring for toxicity (Heparin, Nitro, Insulin, Cardizem)? @ -No Were any procedures done? @ -No Diagnosis/symptom? @ -Failure to thrive, chronic abdominal pain, dehydration Acute, or Chronic, or Acute on Chronic? @ -Acute on chronic Uncomplicated (without systemic symptoms) or Complicated (systemic symptoms)? @ -Complicated Side effects of treatment? @ -none Exacerbation, Progression, or Severe Exacerbation] @ -no Poses a threat to life or bodily function? @ -Yes - Lab Data Result diagrams: 06/15/23 04:20 06/15/23 05:58 Lab Results 06/15/23 06/15/23 06/15/23 Range/Units 03:38 04:20 04:20 WBC 13.6 H (3.8-10.6) k/uL RBC 4.03 (3.80-5.40) m/uL Hgb 11.2 L (11.4-16.0) gm/dL Hct 36.1 (34.0-46.0) % MCV 89.5 (80.0-100.0) fL MCH 27.7 (25.0-35.0) pg MCHC 31.0 (31.0-37.0) g/dL RDW 15.3 (11.5-15.5) % Plt Count 1075 H* D (150-450) k/uL MPV 7.5 Neutrophils % 81 % Lymphocytes % 11 % Monocytes % 5 % Eosinophils % 1 % Basophils % 1 % Neutrophils # 11.0 H (1.3-7.7) k/uL Lymphocytes # 1.5 (1.0-4.8) k/uL Monocytes # 0.6 (0-1.0) k/uL Eosinophils # 0.2 (0-0.7) k/uL Basophils # 0.1 (0-0.2) k/uL Hypochromasia Moderate PT 9.3 L (10.0-12.5) sec INR 0.8 (<1.2) APTT 20.4 L (22.0-30.0) sec VBG pH (7.31-7.41) VBG pCO2 (37-51) mmHg VBG HCO3 (24-28) mmol/L Sodium (137-145) mmol/L Potassium (3.5-5.1) mmol/L Chloride (98-107) mmol/L Carbon Dioxide (22-30) mmol/L Anion Gap mmol/L BUN (7-17) mg/dL Creatinine (0.52-1.04) mg/dL Est GFR (CKD-EPI)AfAm (>60 ml/min/1.73 sqM) Est GFR (CKD-EPI)NonAf (>60 ml/min/1.73 sqM) Glucose (74-99) mg/dL POC Glucose (mg/dL) 344 H (70-110) mg/dL POC Glu Sap Bw Developer ID [place], [place] Plasma Lactic Acid Travis (0.7-2.0) mmol/L Calcium (8.4-10.2) mg/dL Magnesium (1.6-2.3) mg/dL Total Bilirubin (0.2-1.3) mg/dL AST (14-36) U/L ALT (4-34) U/L Alkaline Phosphatase (38-126) U/L Troponin I (0.000-0.034) ng/mL Total Protein (6.3-8.2) g/dL Albumin (3.5-5.0) g/dL Amylase (30-110) U/L Lipase (23-300) U/L Acetone, Qual (Negative) 06/15/23 06/15/23 06/15/23 Range/Units 04:20 04:20 04:20 WBC (3.8-10.6) k/uL RBC (3.80-5.40) m/uL Hgb (11.4-16.0) gm/dL Hct (34.0-46.0) % MCV (80.0-100.0) fL MCH (25.0-35.0) pg MCHC (31.0-37.0) g/dL RDW (11.5-15.5) % Plt Count (150-450) k/uL MPV Neutrophils % % Lymphocytes % % Monocytes % % Eosinophils % % Basophils % % Neutrophils # (1.3-7.7) k/uL Lymphocytes # (1.0-4.8) k/uL Monocytes # (0-1.0) k/uL Eosinophils # (0-0.7) k/uL Basophils # (0-0.2) k/uL Hypochromasia PT (10.0-12.5) sec INR (<1.2) APTT (22.0-30.0) sec VBG pH 7.39 (7.31-7.41) VBG pCO2 32 L (37-51) mmHg VBG HCO3 19 L (24-28) mmol/L Sodium 130 L (137-145) mmol/L Potassium 6.1 H* (3.5-5.1) mmol/L Chloride 99 (98-107) mmol/L Carbon Dioxide 21 L (22-30) mmol/L Anion Gap 10 mmol/L BUN 26 H (7-17) mg/dL Creatinine 0.60 (0.52-1.04) mg/dL Est GFR (CKD-EPI)AfAm >90 (>60 ml/min/1.73 sqM) Est GFR (CKD-EPI)NonAf >90 (>60 ml/min/1.73 sqM) Glucose 317 H (74-99) mg/dL POC Glucose (mg/dL) (70-110) mg/dL POC Glu Sap Bw Developer ID Plasma Lactic Acid [place] 1.5 (0.7-2.0) mmol/L Calcium 8.5 (8.4-10.2) mg/dL Magnesium 2.3 (1.6-2.3) mg/dL Total Bilirubin 0.6 (0.2-1.3) mg/dL AST 36 (14-36) U/L ALT 21 (4-34) U/L Alkaline Phosphatase 117 (38-126) U/L Troponin I (0.000-0.034) ng/mL Total Protein 7.0 (6.3-8.2) g/dL Albumin 3.2 L (3.5-5.0) g/dL Amylase 66 (30-110) U/L Lipase 278 (23-300) U/L Acetone, Qual (Negative) 06/15/23 06/15/23 06/15/23 Range/Units 04:20 05:00 05:58 WBC (3.8-10.6) k/uL RBC (3.80-5.40) m/uL Hgb (11.4-16.0) gm/dL Hct (34.0-46.0) % MCV (80.0-100.0) fL MCH (25.0-35.0) pg MCHC (31.0-37.0) g/dL RDW (11.5-15.5) % Plt Count (150-450) k/uL MPV Neutrophils % % Lymphocytes % % Monocytes % % Eosinophils % % Basophils % % Neutrophils # (1.3-7.7) k/uL Lymphocytes # (1.0-4.8) k/uL Monocytes # (0-1.0) k/uL Eosinophils # (0-0.7) k/uL Basophils # (0-0.2) k/uL Hypochromasia PT (10.0-12.5) sec INR (<1.2) APTT (22.0-30.0) sec VBG pH (7.31-7.41) VBG pCO2 (37-51) mmHg VBG HCO3 (24-28) mmol/L Sodium (137-145) mmol/L Potassium 5.3 H (3.5-5.1) mmol/L Chloride (98-107) mmol/L Carbon Dioxide (22-30) mmol/L Anion Gap mmol/L BUN (7-17) mg/dL Creatinine (0.52-1.04) mg/dL Est GFR (CKD-EPI)AfAm (>60 ml/min/1.73 sqM) Est GFR (CKD-EPI)NonAf (>60 ml/min/1.73 sqM) Glucose (74-99) mg/dL POC Glucose (mg/dL) (70-110) mg/dL POC Glu Sap Bw Developer ID Plasma Lactic Acid [place] (0.7-2.0) mmol/L Calcium (8.4-10.2) mg/dL Magnesium (1.6-2.3) mg/dL Total Bilirubin (0.2-1.3) mg/dL AST (14-36) U/L ALT (4-34) U/L Alkaline Phosphatase (38-126) U/L Troponin I <0.012 (0.000-0.034) ng/mL Total Protein (6.3-8.2) g/dL Albumin (3.5-5.0) g/dL Amylase (30-110) U/L Lipase (23-300) U/L Acetone, Qual Negative (Negative) - EKG Data -: EKG Interpreted by Me EKG Comments: 12-lead Electrocardiogram Interpretation Note EKG was reviewed and interpreted by myself. 12-lead ECG performed at 0329 is interpreted by me as revealing sinus tachycardia at a rate of 124 beats per minute. [place] is normal. VA interval is 96 ms, QRS duration is 78 ms, QTc is 377 ms.. There were no ST or T wave abnormalities to suggest myocardial ischemia or injury. R wave progression across the precordium was satisfactory. By my interpretation this EKG is non-diagnostic for acute ischemia. Disposition Clinical Impression: Chronic abdominal pain, Nausea & vomiting, Esophagitis Disposition: ADMITTED IP TO THIS HOSP Condition: Stable Referrals: Dell Pike MD [Primary Care Provider] - 1-2 days Time of Disposition: 07:00
[2023-06-15 04:34] LABS: Basophils # (A) 0.1 k/uL (0-0.2); Basophils % (A) 1 %; Eosinophils # (A) 0.2 k/uL (0-0.7); Eosinophils % (A) 1 %; HCT 36.1 % (34.0-46.0); HGB 11.2 gm/dL (11.4-16.0); Hypochromasia Moderate; Lymphocytes # (A) 1.5 k/uL (1.0-4.8); Lymphocytes % (A) 11 %; MCH 27.7 pg (25.0-35.0); MCV 89.5 fL (80.0-100.0); Mean Platelet Volume 7.5; Monocytes # (A) 0.6 k/uL (0-1.0); Monocytes % (A) 5 %; Neutrophils % (A) 81 %; RBC 4.03 m/uL (3.80-5.40); RDW 15.3 % (11.5-15.5); WBC 13.6 k/uL (3.8-10.6)
[2023-06-15 04:36] LABS: VBG PH 7.39 (7.31-7.41)
[2023-06-15 04:49] LABS: INR 0.8 (<1.2); Prothrombin Time 9.3 sec (10.0-12.5)
[2023-06-15 04:52] LABS: Partial Thromboplastin Time 20.4 sec (22.0-30.0)
[2023-06-15 05:24] LABS: ALT 21 U/L (4-34); AST 36 U/L (14-36); African American GFR (CKD) >90 (>60 ml/min/1.73 sqM); Albumin 3.2 g/dL (3.5-5.0); Alkaline Phosphatase 117 U/L (38-126); Amylase 66 U/L (30-110); Anion Gap 10 mmol/L; Blood Urea Nitrogen 26 mg/dL (7-17); Calcium 8.5 mg/dL (8.4-10.2); Carbon Dioxide 21 mmol/L (22-30); Chloride 99 mmol/L (98-107); Glucose 317 mg/dL (74-99); Lipase 278 U/L (23-300); Magnesium 2.3 mg/dL (1.6-2.3); Non-African American GFR(CKD) >90 (>60 ml/min/1.73 sqM); Sodium 130 mmol/L (137-145); Total Bilirubin 0.6 mg/dL (0.2-1.3)
[2023-06-15 05:29] LABS: Potassium 6.1 mmol/L (3.5-5.1)
[2023-06-15 05:42] LABS: Platelet Count 1075 k/uL (150-450)
--- NOTE | 2023-06-15 06:25 | XR ---
EXAMINATION TYPE: XR chest 1V portable DATE OF EXAM: 06/15/2023 3:56 AM CLINICAL INDICATION:Female, 53 years old with history of abdominal pain; [facility] COMPARISON: Chest radiographs from 05/12/2023. TECHNIQUE: XR chest 1V portable Frontal view of the chest. FINDINGS: Lungs/Pleura: There is no evidence of pleural effusion, focal consolidation, or pneumothorax. Pulmonary vascularity: Unremarkable. Heart/mediastinum: Cardiomediastinal silhouette is unremarkable. Musculoskeletal: No acute osseous pathology. IMPRESSION: No acute cardiopulmonary disease/process.
--- NOTE | 2023-06-15 07:01 | CT ---
EXAMINATION TYPE: CT abdomen pelvis w con CT DLP: 364.8 mGycm, Automated exposure control for dose reduction was used. DATE OF EXAM: 06/15/2023 6:18 AM COMPARISON: CT abdomen pelvis most recent from 05/12/2023. CLINICAL INDICATION:Female, 53 years old with history of abd pain; pt arrives to ED from home for c/o abdominal pain, N/V/D for 3 days. pt reports difficulty eating drinking. TECHNIQUE: Axial CT abdomen pelvis w con;Sagittal and coronal reformats were created on a separate w orkstation. Contrast used:100 mL of Isovue 300 with IV Contrast, (none if empty) Oral contrast used: without Oral Contrast (none if empty) FINDINGS: LOWER CHEST: Circumferential esophageal wall thickening with hyperemia measuring up to 8 mm in thickn ess. Series 201 image 4. ABDOMEN LIVER: Unremarkable GALLBLADDER AND BILE DUCTS: Unremarkable. PANCREAS: Unremarkable. SPLEEN: Unremarkable. ADRENAL GLANDS: Unremarkable. KIDNEYS AND URETERS: No evidence of hydronephrosis or renal calculus. The ureters are unremarkable. PELVIS BLADDER: Unremarkable REPRODUCTIVE: Unremarkable. ABDOMEN & PELVIS STOMACH AND BOWEL: PEJ tube with balloon in the stomach lumen. Distal tube in appropriate position wi th the jejunum. The duodenum is unremarkable. No evidence of bowel obstruction. PERITONEUM/RETROPERITONEUM: No evidence of pneumoperitoneum or free fluid. VASCULATURE: No evidence of aortic aneurysm. MUSCULOSKELETAL: No acute osseous abnormalities compression deformity of the superior endplate of L4 and T12 are unchanged from prior exam on 05/12/2023. New from 2020. LYMPH NODES: No gross evidence for lymphadenopathy. SOFT TISSUE/ABDOMINAL WALL: Unremarkable IMPRESSION: 1. Distal esophageal circumferential wall thickening up to 8 mm compatible with esophagitis. 2. PEJ tube in appropriate position. 3. No additional evidence for acute intra-abdominal process.
[2023-06-15] MEDS ORDERED: NALOXONE 0.4 MG/ML 1 ML VIAL IV PRN (07:15)
[2023-06-15] MEDS ORDERED: MORPHINE SULFATE 4 MG/ML SYRINGE IV PRN (07:15)
[2023-06-15 07:21] LABS: Appearance,Urine Clear (Clear); Bilirubin,Urine Negative (Negative); Blood,Urine Negative (Negative); Color,Urine Light Yellow; Glucose,Urine (UA) 3+ (Negative); Hyaline Casts,Urine 10 /lpf (0-2); Ketones,Urine Trace (Negative); Leukocyte Esterase,Urine Negative (Negative); Mucus,Urine Few /hpf; Nitrite,Urine Negative (Negative); Protein,Urine 3+ (Negative); RBC,Urine 1 /hpf (0-5); Specific Gravity,Urine 1.039 (1.001-1.035); Squamous Epithelial Cell,Urine 2 /hpf (0-4); Urobilinogen,Urine <2.0 mg/dL (<2.0); WBC,Urine 3 /hpf (0-5)
[2023-06-15] MEDS: SODIUM CHLORIDE 0.9% 1,000 ML IV SCH ×2 (08:28→19:52)
[2023-06-15] MEDS ORDERED: PANTOPRAZOLE 40 MG/10 ML VIAL IV SCH (12:00)
[2023-06-15] MEDS ORDERED: NON FORMULARY DRUG (Omeprazole [Omeprazole] 20 MG Capsule.Dr) PO SCH (12:15)
[2023-06-15] MEDS: IPRATROPIUM-ALBUTEROL 3 ML NEB INHALATION SCH ×2 (12:52→19:36)
[2023-06-15] MEDS: FOLIC ACID 1 MG TAB PO SCH (14:07)
[2023-06-15] MEDS: DULoxetine HCL 30 MG CAPSULE.DR PO SCH (14:07)
[2023-06-15] MEDS: HYDROcodone/APAP 5-325MG 1 EACH TAB PO SCH ×2 (14:07→21:12)
[2023-06-15] MEDS: ALPRAZolam 0.25 MG TAB PO SCH ×2 (14:07→21:12)
[2023-06-15] MEDS: METOCLOPRAMIDE 10 MG TAB PO SCH ×3 (14:08→21:12)
[2023-06-15] MEDS: POTASSIUM CHLORIDE ER 20 MEQ TAB.ER PO SCH (14:08)
[2023-06-15] MEDS: MAGNESIUM OXIDE 400 MG TAB PO SCH (14:08)
[2023-06-15] MEDS: PANTOPRAZOLE 40 MG TABLET PO SCH ×2 (14:08→18:30)
[2023-06-15] MEDS: ONDANSETRON 4 MG TAB PO SCH (14:08)
[2023-06-15] MEDS: SCOPOLAMINE 1 MG/72 HR PATCH TRANSDERM SCH (14:10)
[2023-06-15] MEDS: ATORVASTATIN 20 MG TAB PO SCH (15:39)
[2023-06-15 16:44] LABS: Glucose,Whole Blood 150 mg/dL (70-110)
[2023-06-15] MEDS ORDERED: DEXTROSE 50% SYRINGE 50 ML IVP PRN ×2 (16:45)
--- NOTE | 2023-06-15 16:49 | P.HPIM ---
History of Present Illness H&P Date: 06/15/23 Chief Complaint: Nausea vomiting This is a pleasant 53-year-old patient, follows with Dr. Dell Pike. I'm rounding for Dr. Dell Pike. Chronic stable medical conditions include diabetes, insomnia, GERD, depression. Patient has severe protein calorie malnutrition. Has a PEG tube. Also does oral intake. Patient now presented with significant nausea and some vomiting. No fever no chills. No abdominal pain. Normally has loose stools. Review of systems: GEN.: Tired EYES: None HEENT: None NECK: None RESPIRATORY: None CARDIOVASCULAR: None GASTROINTESTINAL: As above GENITOURINARY: None MUSCULOSKELETAL: Some joint pains, loss muscle mass LYMPHATICS: None HEMATOLOGICAL: None PSYCHIATRY: None NEUROLOGICAL: None Social history: Data smoking in 1987. Does medical marijuana. No alcohol. Lives with another man and his son. Physical examination: VITAL SIGNS: 97.5, 125, 20, 143/87, 100% room air upon presentation GENERAL: BMI 16.2, severe loss of muscle mass and subcutaneous fat, otherwise comfortable. EYES: Pupils equal. Conjunctiva normal. HEENT: External appearance of nose and ears normal, oral cavity grossly normal. NECK: JVD not raised; masses not palpable. HEART: First and second heart sounds are normal; no edema. LUNGS: Respiratory rate normal; clear to auscultation. ABDOMEN: Soft, scaphoid nontender, liver spleen not palpable, no masses palpable. PEG tube PSYCH: Alert and oriented x3; mood and affect normal. MUSCULOSKELETAL:No Clubbing/cyanosis;muscles-grossly intact. Muscle muscle mass. Prominent bones. NEUROLOGICAL: Cranial nerves grossly intact; no facial asymmetry, power and sensation grossly intact. LYMPHATICS: No lymph nodes palpable in the axilla and neck INVESTIGATIONS, reviewed in the clinical context: 06/15/2023: White count 13.6 hemoglobin 11.2 platelets 1075 sodium 1:30 potassium 5.3 BUN 26 creatinine 0.6 Serum acetone negative EKG tracing personally reviewed by me-normal sinus rhythm. Rate 124 Chest x-ray film personally reviewed by me-hyperinflation Abdominal CT: Distal esophageal circumferential wall thickening compatible with esophagitis. Assessment and plan: -Acute on chronic care of of gastroparesis. Start scheduled Reglan. 2 feeding had been held initially. We'll start at 10 mL an hour. See how patient does. -Severe protein calorie malnutrition 2 feeding -Diabetes mellitus type 2, chronically on insulin Follow Accu-Cheks -Chronic insomnia Remeron -GERD/esophagitis Protonix -Depression Cymbalta -COPD in a current smoker DuoNeb, Pulmicort Patient is requesting IV pain meds. She is already on [place]. Any further increase narcotics which currently not indicated as patient appears rather comfortable in no tenderness of the abdomen will make the gastroparesis if anyth ing much worse. Otherwise not indicated.. 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 Date of last positivie culture/infection: 05/19/23 MDRO Source:: Urine Past Surgical History: Tubal Ligation Past Anesthesia/Blood Transfusion Reactions: No Reported Reaction Additional Past Anesthesia/Blood Transfusion Reaction / Comment(s): UNK FAMILY HX Past Psychological History: Anxiety, Depression Smoking Status: Current every day smoker Past Alcohol Use History: None Reported Past Drug Use History: Marijuana - Past Family History Father History Unknown: Yes Additional Family Medical History / Comment(s): unknown-adopted Mother History Unknown: Yes Additional Family Medical History / Comment(s): unknown- adopted Medications and Allergies Home Medications Medication Instructions Recorded Confirmed Type Ondansetron [Zofran] 4 mg PO DAILY 08/12/15 06/15/23 History ALPRAZolam [Xanax] 0.25 mg PO BID 05/12/23 06/15/23 History Atorvastatin [Lipitor] 20 mg PO DAILY 05/12/23 06/15/23 History Budesonide [Pulmicort] 0.5 mg INHALATION RT-BID 05/12/23 06/15/23 History DULoxetine HCL [Cymbalta] 30 mg PO DAILY 05/12/23 06/15/23 History HYDROcodone/APAP 5-325MG [[place] 1 tab PO BID 05/12/23 06/15/23 History 5-325] Insulin Glargine,Hum.rec.anlog 3 units SQ BID 05/12/23 06/15/23 History [Lantus Solostar Pen] Insulin Lispro [humaLOG Kwikpen] 2 unit SQ AC-TID 05/12/23 06/15/23 History Insulin Lispro [humaLOG Kwikpen] See Protocol SQ AC-TID 05/12/23 06/15/23 History Ipratropium-Albuterol Nebulize 3 ml INHALATION RT-BID 05/12/23 06/15/23 History [Duoneb 0.5 mg-3 mg/3 ml Soln] Magnesium Oxide [Mag-Ox] 400 mg PO DAILY 05/12/23 06/15/23 History Mirtazapine [Remeron] 30 mg PO HS 05/12/23 06/15/23 History Omeprazole 20 mg PO DAILY 05/12/23 06/15/23 History Potassium Chloride ER [K-Dur 20] 20 meq PO DAILY 05/12/23 06/15/23 History amLODIPine [Norvasc] 5 mg PO BID 05/12/23 06/15/23 History Metoclopramide [Reglan] 10 mg PO ACHS 30 Days #120 tab 05/15/23 06/15/23 Rx Scopolamine 1 mg/72 Hr Patch 1 patch TRANSDERM Q72H 30 Days #10 05/15/2306/15 Rx [TransDerm Scop] patch Pantoprazole [Protonix] 40 mg PO AC-BID 30 Days #60 tab 05/21/23 06/15/23 Rx Folic Acid 1 mg PO DAILY 06/15/23 06/15/23 History methocarbamoL [Robaxin] 500 - 1,000 mg PO Q8H PRN 06/15/23 06/15/23 History Allergies Allergy/AdvReac Type Severity Reaction Status Date / Time fentanyl Allergy Unknown Verified 06/15/23 03:32 Physical Exam Vitals: Vital Signs Temp Pulse Resp BP Pulse Ox 06/15/23 08:00 112 H 18 119/77 100 06/15/23 06:00 115 H 15 125/84 100 06/15/23 05:00 114 H 16 138/75 100 06/15/23 03:24 97.5 F L 125 H 20 143/87 100 Intake and Output 06/14/23 06/15/23 06/15/23 22:59 06:59 14:59 Other: Weight 36.287 kg Results CBC & Chem 7: 06/15/23 04:20 06/15/23 05:58 Labs: Abnormal Lab Results - Last 24 Hours (Table) 06/15/23 06/15/23 06/15/23 Range/Units 03:38 04:20 04:20 WBC 13.6 H (3.8-10.6) k/uL Hgb 11.2 L (11.4-16.0) gm/dL Plt Count 1075 H* D (150-450) k/uL Neutrophils # 11.0 H (1.3-7.7) k/uL PT 9.3 L (10.0-12.5) sec APTT 20.4 L (22.0-30.0) sec VBG pCO2 (37-51) mmHg VBG HCO3 (24-28) mmol/L Sodium (137-145) mmol/L Potassium (3.5-5.1) mmol/L Carbon Dioxide (22-30) mmol/L BUN (7-17) mg/dL Glucose (74-99) mg/dL POC Glucose (mg/dL) 344 H (70-110) mg/dL Albumin (3.5-5.0) g/dL Ur Specific [place] (1.001-1.035) Urine Protein (Negative) Urine Glucose (UA) (Negative) Urine Ketones (Negative) Hyaline Casts (0-2) /lpf Urine Mucus (None) /hpf 06/15/23 06/15/23 06/15/23 Range/Units 04:20 04:20 05:58 WBC (3.8-10.6) k/uL Hgb (11.4-16.0) gm/dL Plt Count (150-450) k/uL Neutrophils # (1.3-7.7) k/uL PT (10.0-12.5) sec APTT (22.0-30.0) sec VBG pCO2 32 L (37-51) mmHg VBG HCO3 19 L (24-28) mmol/L Sodium 130 L (137-145) mmol/L Potassium 6.1 H* 5.3 H (3.5-5.1) mmol/L Carbon Dioxide 21 L (22-30) mmol/L BUN 26 H (7-17) mg/dL Glucose 317 H (74-99) mg/dL POC Glucose (mg/dL) (70-110) mg/dL Albumin 3.2 L (3.5-5.0) g/dL Ur Specific [place] (1.001-1.035) Urine Protein (Negative) Urine Glucose (UA) (Negative) Urine Ketones (Negative) Hyaline Casts (0-2) /lpf Urine Mucus (None) /hpf 06/15/23 Range/Units 07:00 WBC (3.8-10.6) k/uL Hgb (11.4-16.0) gm/dL Plt Count (150-450) k/uL Neutrophils # (1.3-7.7) k/uL PT (10.0-12.5) sec APTT (22.0-30.0) sec VBG pCO2 (37-51) mmHg VBG HCO3 (24-28) mmol/L Sodium (137-145) mmol/L Potassium (3.5-5.1) mmol/L Carbon Dioxide (22-30) mmol/L BUN (7-17) mg/dL Glucose (74-99) mg/dL POC Glucose (mg/dL) (70-110) mg/dL Albumin (3.5-5.0) g/dL Ur Specific [place] 1.039 H (1.001-1.035) Urine Protein 3+ H (Negative) Urine Glucose (UA) 3+ H (Negative) Urine Ketones Trace H (Negative) Hyaline Casts 10 H (0-2) /lpf Urine Mucus Few H (None) /hpf
[2023-06-15] MEDS: INSULIN ASPART (NovoLOG) 100 UNIT/ML VIAL SQ SCH (17:11)
[2023-06-15] MEDS: BUDESONIDE 0.5 MG/2 ML NEBU INHALATION SCH (19:36)
[2023-06-15] MEDS: MIRTAZAPINE 15 MG TAB PO SCH (21:13)
[2023-06-16 05:02] LABS: African American GFR (CKD) >90 (>60 ml/min/1.73 sqM); Anion Gap 7 mmol/L; Blood Urea Nitrogen 13 mg/dL (7-17); Calcium 8.2 mg/dL (8.4-10.2); Carbon Dioxide 17 mmol/L (22-30); Chloride 113 mmol/L (98-107); Glucose 151 mg/dL (74-99); Non-African American GFR(CKD) >90 (>60 ml/min/1.73 sqM); Potassium 5.3 mmol/L (3.5-5.1); Sodium 137 mmol/L (137-145)
[2023-06-16 05:18] LABS: Glucose,Whole Blood 153 mg/dL (70-110)
[2023-06-16 05:47] LABS: Basophils % (A) 1 %; Eosinophils # (A) 0.2 k/uL (0-0.7); Eosinophils % (A) 3 %; HCT 22.9 % (34.0-46.0); Hypochromasia Moderate; Lymphocytes # (A) 2.3 k/uL (1.0-4.8); Lymphocytes % (A) 31 %; MCH 28.1 pg (25.0-35.0); MCHC 31.6 g/dL (31.0-37.0); MCV 88.8 fL (80.0-100.0); Mean Platelet Volume 8.2; Monocytes # (A) 0.4 k/uL (0-1.0); Monocytes % (A) 6 %; Neutrophils # (A) 4.3 k/uL (1.3-7.7); Neutrophils % (A) 58 %; Platelet Count 785 k/uL (150-450); Poikilocytosis Slight; RBC 2.58 m/uL (3.80-5.40); RDW 15.6 % (11.5-15.5); WBC 7.4 k/uL (3.8-10.6)
[2023-06-16 06:01] LABS: HGB 7.2 gm/dL (11.4-16.0)
[2023-06-16] MEDS: IPRATROPIUM-ALBUTEROL 3 ML NEB INHALATION SCH ×2 (07:16→20:43)
[2023-06-16] MEDS: BUDESONIDE 0.5 MG/2 ML NEBU INHALATION SCH ×2 (07:16→20:43)
[2023-06-16] MEDS: POTASSIUM CHLORIDE ER 20 MEQ TAB.ER PO SCH (08:03)
[2023-06-16] MEDS: INSULIN ASPART (NovoLOG) 100 UNIT/ML VIAL SQ SCH ×3 (08:16→18:04)
[2023-06-16] MEDS: ALPRAZolam 0.25 MG TAB PO SCH ×2 (08:57→20:08)
[2023-06-16] MEDS: METOCLOPRAMIDE 10 MG TAB PO SCH ×4 (08:57→20:09)
[2023-06-16] MEDS: ATORVASTATIN 20 MG TAB PO SCH (08:57)
[2023-06-16] MEDS: FOLIC ACID 1 MG TAB PO SCH (08:57)
[2023-06-16] MEDS: HYDROcodone/APAP 5-325MG 1 EACH TAB PO SCH ×2 (08:57→20:09)
[2023-06-16] MEDS: PANTOPRAZOLE 40 MG TABLET PO SCH ×2 (08:58→16:49)
[2023-06-16] MEDS: ONDANSETRON 4 MG TAB PO SCH (08:58)
[2023-06-16] MEDS: MAGNESIUM OXIDE 400 MG TAB PO SCH (08:58)
[2023-06-16] MEDS: DULoxetine HCL 30 MG CAPSULE.DR PO SCH (09:00)
[2023-06-16 11:23] LABS: Glucose,Whole Blood 202 mg/dL (70-110)
--- NOTE | 2023-06-16 14:30 | P.GSCN ---
History of Present Illness Consult date: 06/16/23 Reason for Consult: Infected gastrostomy History of present illness: 53-year-old female came to the hospital because of nausea and vomiting. Patient with history of chronic nausea and vomiting and gastroparesis. She was recently at [facility] and had placement of a gastrojejunostomy feeding tube. CAT scan confirms appropriate placement on 06/15. Patient today was noted to have some purulent drainage around the bolster and gastrostomy site. Mild soreness there. Review of Systems The patient denies any acute changes in vision or hearing, no dysphagia or odynophagia, no chest pain or shortness of breath, no dysuria or hematuria, no headache, no runny nose, no rectal bleeding or melena, no unexplained weight loss 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 Year Discovered:: 05/19/23 MDRO Source:: Urine Past Surgical History: Orthopedic Surgery, Tubal Ligation Past Anesthesia/Blood Transfusion Reactions: No Reported Reaction Additional Past Anesthesia/Blood Transfusion Reaction / Comm: UNK FAMILY HX Past Psychological History: Anxiety Smoking Status: Former smoker Past Alcohol Use History: None Reported Additional Past Alcohol Use History / Comment(s): STARTED SMOKING 1987 Past Drug Use History: Marijuana Additional Drug Use History / Comment(s): HAS MEDICAL MARIJUANA CARD-USES DAILY AND FREQUENTLY - Past Family History Father History Unknown: Yes Additional Family Medical History / Comment(s): unknown-adopted Mother History Unknown: Yes Additional Family Medical History / Comment(s): unknown- adopted Medications and Allergies Home Medications Medication Instructions Recorded Confirmed Type Ondansetron [Zofran] 4 mg PO DAILY 08/12/15 06/15/23 History ALPRAZolam [Xanax] 0.25 mg PO BID 05/12/23 06/15/23 History Atorvastatin [Lipitor] 20 mg PO DAILY 05/12/23 06/15/23 History Budesonide [Pulmicort] 0.5 mg INHALATION RT-BID 05/12/23 06/15/23 History DULoxetine HCL [Cymbalta] 30 mg PO DAILY 05/12/23 06/15/23 History HYDROcodone/APAP 5-325MG [[place] 1 tab PO BID 05/12/23 06/15/23 History 5-325] Insulin Glargine,Hum.rec.anlog 3 units SQ BID 05/12/23 06/15/23 History [Lantus Solostar Pen] Insulin Lispro [humaLOG Kwikpen] 2 unit SQ AC-TID 05/12/23 06/15/23 History Insulin Lispro [humaLOG Kwikpen] See Protocol SQ AC-TID 05/12/23 06/15/23 History Ipratropium-Albuterol Nebulize 3 ml INHALATION RT-BID 05/12/23 06/15/23 History [Duoneb 0.5 mg-3 mg/3 ml Soln] Magnesium Oxide [Mag-Ox] 400 mg PO DAILY 05/12/23 06/15/23 History Mirtazapine [Remeron] 30 mg PO HS 05/12/23 06/15/23 History Omeprazole 20 mg PO DAILY 05/12/23 06/15/23 History Potassium Chloride ER [K-Dur 20] 20 meq PO DAILY 05/12/23 06/15/23 History amLODIPine [Norvasc] 5 mg PO BID 05/12/23 06/15/23 History Metoclopramide [Reglan] 10 mg PO ACHS 30 Days #120 tab 05/15/23 06/15/23 Rx Scopolamine 1 mg/72 Hr Patch 1 patch TRANSDERM Q72H 30 Days #10 05/15/23 06/15/23 Rx [TransDerm Scop] patch Pantoprazole [Protonix] 40 mg PO AC-BID 30 Days #60 tab 05/21/23 06/15/23 Rx Folic Acid 1 mg PO DAILY 06/15/23 06/15/23 History methocarbamoL [Robaxin] 500 - 1,000 mg PO Q8H PRN 06/15/23 06/15/23 History Allergies Allergy/AdvReac Type Severity Reaction Status Date / Time fentanyl Allergy Unknown Verified 06/15/23 03:32 Surgical - Exam Vital Signs Temp Pulse Resp BP Pulse Ox 97.5 F L 125 H 20 143/87 100 06/15/23 03:24 06/15/23 03:24 06/15/23 03:24 06/15/23 03:24 06/15/23 03:24 Abdomen: Soft, nondistended, skin opening at the gastrostomy with mild purulent drainage, no significant erythema or fluctuance, bolster appropriately loose Results - Labs 06/16/23 03:32 06/16/23 03:32 Abnormal Lab Results - Last 24 Hours (Table) 06/15/23 06/16/23 06/16/23 Range/Units 16:43 03:32 03:32 RBC 2.58 L (3.80-5.40) m/uL Hgb 7.2 L D (11.4-16.0) gm/dL Hct 22.9 L (34.0-46.0) % RDW 15.6 H (11.5-15.5) % Plt Count 785 H (150-450) k/uL Potassium 5.3 H (3.5-5.1) mmol/L Chloride 113 H (98-107) mmol/L Carbon Dioxide 17 L (22-30) mmol/L Creatinine 0.44 L (0.52-1.04) mg/dL Glucose 151 H (74-99) mg/dL POC Glucose (mg/dL) 150 H (70-110) mg/dL Calcium 8.2 L (8.4-10.2) mg/dL 06/16/23 06/16/23 Range/Units 05:17 11:21 RBC (3.80-5.40) m/uL Hgb (11.4-16.0) gm/dL Hct (34.0-46.0) % RDW (11.5-15.5) % Plt Count (150-450) k/uL Potassium (3.5-5.1) mmol/L Chloride (98-107) mmol/L Carbon Dioxide (22-30) mmol/L Creatinine (0.52-1.04) mg/dL Glucose (74-99) mg/dL POC Glucose (mg/dL) 153 H 202 H (70-110) mg/dL Calcium (8.4-10.2) mg/dL Diabetes panel 06/16/23 Range/Units 03:32 Sodium 137 (137-145) mmol/L Potassium 5.3 H (3.5-5.1) mmol/L Chloride 113 H (98-107) mmol/L Carbon Dioxide 17 L (22-30) mmol/L BUN 13 (7-17) mg/dL Creatinine 0.44 L (0.52-1.04) mg/dL Glucose 151 H (74-99) mg/dL Calcium 8.2 L (8.4-10.2) mg/dL Calcium panel 06/16/23 Range/Units 03:32 Calcium 8.2 L (8.4-10.2) mg/dL Pituitary panel 06/16/23 Range/Units 03:32 Sodium 137 (137-145) mmol/L Potassium 5.3 H (3.5-5.1) mmol/L Chloride 113 H (98-107) mmol/L Carbon Dioxide 17 L (22-30) mmol/L BUN 13 (7-17) mg/dL Creatinine 0.44 L (0.52-1.04) mg/dL Glucose 151 H (74-99) mg/dL Calcium 8.2 L (8.4-10.2) mg/dL Adrenal panel 06/16/23 Range/Units 03:32 Sodium 137 (137-145) mmol/L Potassium 5.3 H (3.5-5.1) mmol/L Chloride 113 H (98-107) mmol/L Carbon Dioxide 17 L (22-30) mmol/L BUN 13 (7-17) mg/dL Creatinine 0.44 L (0.52-1.04) mg/dL Glucose 151 H (74-99) mg/dL Calcium 8.2 L (8.4-10.2) mg/dL Assessment and Plan (1) Gastrostomy infection Narrative/Plan: 53-year-old female with superficial infection around the gastrostomy tube site. Continue local care. No need to change the tube especially given the complexity of the gastrojejunostomy. Begin IV antibiotics. Current Visit: Yes Status: Acute Code(s): K94.22 - GASTROSTOMY INFECTION SNOMED Code(s): 064237138
[2023-06-16] MEDS: PIPERACILLIN-TAZOBACTAM 3.375 GM in SODIUM CHLORIDE 0.9% 100 ML IVPB SCH (16:49)
[2023-06-16 17:07] LABS: Glucose,Whole Blood 171 mg/dL (70-110)
--- NOTE | 2023-06-16 17:43 | P.PN ---
Progress Note - Text Progress Note Date: 06/16/23 Chief Complaint: Nausea vomiting This is a pleasant 53-year-old patient, follows with Dr. Dell Pike. I'm rounding for Dr. Dell Pike. Chronic stable medical conditions include diabetes, insomnia, GERD, depression. Patient has severe protein calorie malnutrition. Has a PEG tube. Also does oral intake. Patient now presented with significant nausea and some vomiting. No fever no chills. No abdominal pain. Normally has loose stools. 06/16/2023: Patient noted some pus around the PEG tube site. She'll surgery was consulted. Cultures be sent off. On IV Zosyn. 2 feeding in being started by dietitian. No vomiting. Active Medications Hydrocodone Bitart/Acetaminophen (Hydrocodone/Apap 5-325mg 1 Each Tab) 1 each PO BID [facility] Last Admin: 06/16/23 08:57 Dose: 1 each Albuterol/Ipratropium (Ipratropium-Albuterol 3 Ml Neb) 3 ml INHALATION RT-BID [facility] Last Admin: 06/16/23 07:16 Dose: Not Given Alprazolam (Alprazolam 0.25 Mg Tab) 0.25 mg PO BID [facility] Last Admin: 06/16/23 08:57 Dose: 0.25 mg Atorvastatin Calcium (Atorvastatin 20 Mg Tab) 20 mg PO DAILY [facility] Last Admin: 06/16/23 08:57 Dose: 20 mg Budesonide (Budesonide 0.5 Mg/2 Ml Nebu) 0.5 mg INHALATION RT-BID [facility] Last Admin: 06/16/23 07:16 Dose: Not Given Dextrose/Water (Dextrose 50% Syringe 50 Ml) 25 ml IVP PER PROTOCOL PRN; Protocol PRN Reason: Hypoglycemia Dextrose/Water (Dextrose 50% Syringe 50 Ml) 50 ml IVP PER PROTOCOL PRN; Protocol PRN Reason: Hypoglycemia Duloxetine HCl (Duloxetine Hcl 30 Mg Capsule.Dr) 30 mg PO DAILY [facility] Last Admin: 06/16/23 09:00 Dose: 30 mg Folic Acid (Folic Acid 1 Mg Tab) 1 mg PO DAILY [facility] Last Admin: 06/16/23 08:57 Dose: 1 mg Sodium Chloride (Saline 0.9%) 1,000 mls @ 75 mls/hr IV .[id number] [facility] Last Admin: 06/15/23 19:52 Dose: 75 mls/hr Piperacillin Sod/Tazobactam (Sod 3.375 gm/ Sodium Chloride) 100 mls @ 25 mls/hr IVPB Q8HR [facility]; Protocol Last Admin: 06/16/23 16:49 Dose: 25 mls/hr Insulin Aspart (Insulin Aspart (Novolog) 100 Unit/Ml Vial) 0 unit SQ AC-TID [facility]; Protocol Last Admin: 06/16/23 13:11 Dose: 2 unit Magnesium Oxide (Magnesium Oxide 400 Mg Tab) 400 mg PO DAILY [facility] Last Admin: 06/16/23 08:58 Dose: 400 mg Metoclopramide HCl (Metoclopramide 10 Mg Tab) 10 mg PO ACHS [facility] Last Admin: 06/16/23 16:49 Dose: 10 mg Mirtazapine (Mirtazapine 15 Mg Tab) 30 mg PO HS [facility] Last Admin: 06/15/23 21:13 Dose: 30 mg Naloxone HCl (Naloxone 0.4 Mg/Ml 1 Ml Vial) 0.2 mg IV Q2M PRN PRN Reason: Opioid Reversal Ondansetron HCl (Ondansetron 4 Mg Tab) 4 mg PO DAILY [facility] Last Admin: 06/16/23 08:58 Dose: 4 mg Pantoprazole Sodium (Pantoprazole 40 Mg Tablet) 40 mg PO AC-BID [facility] Last Admin: 06/16/23 16:49 Dose: 40 mg Potassium Chloride (Potassium Chloride Er 20 Meq Tab.Er) 20 meq PO DAILY [facility] Last Admin: 06/16/23 08:03 Dose: Not Given Scopolamine (Scopolamine 1 Mg/72 Hr Patch) 1 patch TRANSDERM Q72H [facility] Last Admin: 06/15/23 14:10 Dose: 1 patch Social history: Data smoking in 1987. Does medical marijuana. No alcohol. Lives with another man and his son. Physical examination: VITAL SIGNS: 98.3, 120, 19, 1 49 x 83, 97% room air GENERAL: BMI 16.2, severe loss of muscle mass and subcutaneous fat, otherwise comfortable. EYES: Pupils equal. Conjunctiva normal. HEENT: External appearance of nose and ears normal, oral cavity grossly normal. NECK: JVD not raised; masses not palpable. HEART: First and second heart sounds are normal; no edema. LUNGS: Respiratory rate normal; clear to auscultation. ABDOMEN: Soft, scaphoid nontender, liver spleen not palpable, no masses palpable. PEG tube PSYCH: Alert and oriented x3; mood and affect normal. MUSCULOSKELETAL:No Clubbing/cyanosis;muscles-grossly intact. Muscle muscle mass. Prominent bones. INVESTIGATIONS, reviewed in the clinical context: June 16: White count 7.41 with 7.2 potassium 5.3 creatinine 0.44 06/15/2023: White count 13.6 hemoglobin 11.2 platelets 1075 sodium 1:30 potassium 5.3 BUN 26 creatinine 0.6 Serum acetone negative EKG tracing personally reviewed by me-normal sinus rhythm. Rate 124 Chest x-ray film personally reviewed by me-hyperinflation Abdominal CT: Distal esophageal circumferential wall thickening compatible with esophagitis. Assessment and plan: -Acute on chronic care of of gastroparesis. scheduled Reglan. Tube feeding in being started today. Dietitian consulted. -Severe protein calorie malnutrition Tube feeding -Diabetes mellitus type 2, chronically on insulin Follow Accu-Cheks and -Infection at PEG tube site. GEN surgery consulted. IV Zosyn. Gram stain and culture -Chronic insomnia Remeron -GERD/esophagitis Protonix -Depression Cymbalta -COPD in a current smoker Keven Sabillon Start PEG tube feeding per dietitian. IV Zosyn. 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 Date of last positivie culture/infection: 05/19/23 MDRO Source:: Urine Past Surgical History: Tubal Ligation Past Anesthesia/Blood Transfusion Reactions: No Reported Reaction Additional Past Anesthesia/Blood Transfusion Reaction / Comment(s): UNK FAMILY HX Past Psychological History: Anxiety, Depression Smoking Status: Current every day smoker Past Alcohol Use History: None Reported Past Drug Use History: Marijuana
[2023-06-16] MEDS: SODIUM BICARBONATE TAB 650 MG TAB PO SCH ×2 (18:05→20:08)
[2023-06-16 20:01] LABS: Glucose,Whole Blood 170 mg/dL (70-110)
[2023-06-16] MEDS: MIRTAZAPINE 15 MG TAB PO SCH (20:08)
[2023-06-16] MEDS: amLODIPine 5 MG TAB PO SCH (20:58)
[2023-06-16] MEDS: SODIUM CHLORIDE 0.9% 1,000 ML IV SCH ×2 (21:09→23:43)
[2023-06-17] MEDS: PIPERACILLIN-TAZOBACTAM 3.375 GM in SODIUM CHLORIDE 0.9% 100 ML IVPB SCH ×3 (00:14→15:18)
[2023-06-17] MEDS: ONDANSETRON 4 MG/2 ML VIAL IVP PRN ×2 (03:35→22:22)
[2023-06-17] MEDS: METOCLOPRAMIDE 10 MG TAB PO SCH ×4 (05:55→22:26)
[2023-06-17] MEDS: PANTOPRAZOLE 40 MG TABLET PO SCH ×2 (05:55→17:32)
[2023-06-17 06:00] LABS: Glucose,Whole Blood 210 mg/dL (70-110)
[2023-06-17] MEDS: BUDESONIDE 0.5 MG/2 ML NEBU INHALATION SCH ×2 (07:38→21:05)
[2023-06-17] MEDS: IPRATROPIUM-ALBUTEROL 3 ML NEB INHALATION SCH ×2 (07:39→21:05)
[2023-06-17] MEDS: INSULIN ASPART (NovoLOG) 100 UNIT/ML VIAL SQ SCH ×3 (08:41→17:32)
[2023-06-17] MEDS: POTASSIUM CHLORIDE ER 20 MEQ TAB.ER PO SCH (08:42)
[2023-06-17] MEDS: MAGNESIUM OXIDE 400 MG TAB PO SCH (08:51)
[2023-06-17] MEDS: ONDANSETRON 4 MG TAB PO SCH (08:51)
[2023-06-17] MEDS: ATORVASTATIN 20 MG TAB PO SCH (08:51)
[2023-06-17] MEDS: FOLIC ACID 1 MG TAB PO SCH (08:51)
[2023-06-17] MEDS: SODIUM BICARBONATE TAB 650 MG TAB PO SCH ×3 (08:51→22:25)
[2023-06-17] MEDS: HYDROcodone/APAP 5-325MG 1 EACH TAB PO SCH ×2 (08:52→14:57)
[2023-06-17] MEDS: DULoxetine HCL 30 MG CAPSULE.DR PO SCH (08:52)
[2023-06-17] MEDS: amLODIPine 5 MG TAB PO SCH ×2 (08:52→22:23)
[2023-06-17] MEDS: ALPRAZolam 0.25 MG TAB PO SCH ×2 (08:53→22:25)
[2023-06-17 09:18] LABS: Basophils % (A) 0 %; Eosinophils # (A) 0.1 k/uL (0-0.7); Eosinophils % (A) 1 %; HCT 25.1 % (34.0-46.0); HGB 7.6 gm/dL (11.4-16.0); Hypochromasia Marked; Lymphocytes % (A) 12 %; MCH 27.4 pg (25.0-35.0); MCHC 30.2 g/dL (31.0-37.0); MCV 90.7 fL (80.0-100.0); Mean Platelet Volume 7.1; Monocytes # (A) 0.4 k/uL (0-1.0); Monocytes % (A) 5 %; Neutrophils # (A) 7.1 k/uL (1.3-7.7); Neutrophils % (A) 81 %; Platelet Count 805 k/uL (150-450); Poikilocytosis Slight; RBC 2.77 m/uL (3.80-5.40); RDW 15.5 % (11.5-15.5); WBC 8.7 k/uL (3.8-10.6)
[2023-06-17 09:23] LABS: Chloride 105 mmol/L (98-107); Glucose 217 mg/dL (74-99); Potassium 4.1 mmol/L (3.5-5.1); Sodium 136 mmol/L (137-145)
[2023-06-17 09:24] LABS: African American GFR (CKD) >90 (>60 ml/min/1.73 sqM); Anion Gap 12 mmol/L; Blood Urea Nitrogen 6 mg/dL (7-17); Calcium 8.2 mg/dL (8.4-10.2); Carbon Dioxide 19 mmol/L (22-30); Non-African American GFR(CKD) >90 (>60 ml/min/1.73 sqM)
[2023-06-17 11:18] LABS: Glucose,Whole Blood 264 mg/dL (70-110)
--- NOTE | 2023-06-17 12:58 | P.PN ---
Subjective Progress Note Date: 06/17/23 Principal diagnosis: Gastrostomy infection Patient still having intermittent vomiting. She is more alert. Denies pain. Remains tachycardic. Hemoglobin dropped from 11.2-7.2 with fluid rehydration. No rectal bleeding or melena, no hematemesis Objective - Vital Signs Vital signs: Vital Signs Temp 97.7 F 06/17/23 07:08 Pulse 122 H 06/17/23 07:08 Resp 22 06/17/23 07:08 BP 132/81 06/17/23 07:08 Pulse Ox 94 L 06/17/23 07:08 FiO2 Intake & Output 06/16/23 06/17/23 06/17/23 18:59 06:59 18:59 Output Total 150 Balance -150 Weight 32.045 kg 33 kg Output: Emesis 150 Other: # Voids 1 - Exam Abdomen: Soft, nondistended, nontender, PEG tube site without erythema or drainage currently - Labs CBC & Chem 7: 06/17/23 08:44 06/17/23 08:44 Labs: Abnormal Lab Results - Last 24 Hours (Table) 06/16/23 06/16/23 06/17/23 Range/Units 17:05 19:59 05:58 RBC (3.80-5.40) m/uL Hgb (11.4-16.0) gm/dL Hct (34.0-46.0) % MCHC (31.0-37.0) g/dL Plt Count (150-450) k/uL Sodium (137-145) mmol/L Carbon Dioxide (22-30) mmol/L BUN (7-17) mg/dL Creatinine (0.52-1.04) mg/dL Glucose (74-99) mg/dL POC Glucose (mg/dL) 171 H 170 H 210 H (70-110) mg/dL Calcium (8.4-10.2) mg/dL 06/17/23 06/17/23 06/17/23 Range/Units 08:44 08:44 11:17 RBC 2.77 L (3.80-5.40) m/uL Hgb 7.6 L (11.4-16.0) gm/dL Hct 25.1 L (34.0-46.0) % MCHC 30.2 L (31.0-37.0) g/dL Plt Count 805 H (150-450) k/uL Sodium 136 L (137-145) mmol/L Carbon Dioxide 19 L (22-30) mmol/L BUN 6 L (7-17) mg/dL Creatinine 0.48 L (0.52-1.04) mg/dL Glucose 217 H (74-99) mg/dL POC Glucose (mg/dL) 264 H (70-110) mg/dL Calcium 8.2 L (8.4-10.2) mg/dL Microbiology - Last 24 Hours (Table) 06/16/23 13:30 Gram Stain - Preliminary Abdomen Assessment and Plan (1) Gastrostomy infection Narrative/Plan: [id number] female with infection around her gastrojejunostomy feeding tube. Looks better today. Still tachycardic. Monitor hemoglobin. Continue tube feeds. Current Visit: Yes Status: Acute Code(s): K94.22 - GASTROSTOMY INFECTION SNOMED Code(s): 517001703
[2023-06-17] MEDS: SODIUM CHLORIDE 0.9% 1,000 ML IV SCH (15:32)
[2023-06-17 16:20] LABS: Glucose,Whole Blood 253 mg/dL (70-110)
[2023-06-17 20:08] LABS: Glucose,Whole Blood 244 mg/dL (70-110)
[2023-06-17] MEDS: MIRTAZAPINE 15 MG TAB PO SCH (22:25)
[2023-06-18] MEDS: PIPERACILLIN-TAZOBACTAM 3.375 GM in SODIUM CHLORIDE 0.9% 100 ML IVPB SCH ×4 (00:07→23:56)
[2023-06-18] MEDS: HYDROcodone/APAP 5-325MG 1 EACH TAB PO SCH ×4 (00:07→23:56)
[2023-06-18] MEDS: SODIUM CHLORIDE 0.9% 1,000 ML IV SCH ×2 (01:49→17:31)
[2023-06-18 06:16] LABS: Glucose,Whole Blood 226 mg/dL (70-110)
[2023-06-18] MEDS: INSULIN ASPART (NovoLOG) 100 UNIT/ML VIAL SQ SCH ×3 (06:17→17:32)
[2023-06-18] MEDS: METOCLOPRAMIDE 10 MG TAB PO SCH ×4 (07:58→20:55)
[2023-06-18] MEDS: POTASSIUM CHLORIDE ER 20 MEQ TAB.ER PO SCH (07:58)
[2023-06-18] MEDS: amLODIPine 5 MG TAB PO SCH ×2 (07:58→20:56)
[2023-06-18] MEDS: ONDANSETRON 4 MG TAB PO SCH (07:59)
[2023-06-18] MEDS: FOLIC ACID 1 MG TAB PO SCH (07:59)
[2023-06-18] MEDS: ATORVASTATIN 20 MG TAB PO SCH (07:59)
[2023-06-18] MEDS: PANTOPRAZOLE 40 MG TABLET PO SCH ×2 (07:59→17:32)
[2023-06-18] MEDS: DULoxetine HCL 30 MG CAPSULE.DR PO SCH (07:59)
[2023-06-18] MEDS: SODIUM BICARBONATE TAB 650 MG TAB PO SCH ×3 (07:59→20:55)
[2023-06-18] MEDS: ALPRAZolam 0.25 MG TAB PO SCH ×2 (07:59→20:55)
[2023-06-18] MEDS: MAGNESIUM OXIDE 400 MG TAB PO SCH (07:59)
[2023-06-18 08:47] LABS: Basophils # (A) 0.09 X 10*3/uL (0.00-0.10); Basophils % (A) 1.2 %; Eosinophils # (A) 0.18 X 10*3/uL (0.04-0.35); Eosinophils % (A) 2.4 %; HCT 23.8 % (37.2-46.3); HGB 7.4 g/dL (12.0-15.0); Lymphocytes # (A) 1.91 X 10*3/uL (0.90-5.00); Lymphocytes % (A) 25.6 %; MCH 27.4 pg (27.0-32.0); MCHC 31.1 g/dL (32.0-37.0); MCV 88.1 FL (80.0-97.0); Monocytes # (A) 0.68 X 10*3/uL (0.20-1.00); Monocytes % (A) 9.1 %; NRBC Per 100 WBC 0 X 10*3/uL (0.00-0.01); Neutrophils # (A) 4.59 X 10*3/uL (1.80-7.70); Neutrophils % (A) 61.4 %; Platelet Count 716 X 10*3/uL (140-440); WBC 7.47 X 10*3/uL (4.50-10.00)
--- NOTE | 2023-06-18 08:52 | PN ---
PROGRESS NOTE SUBJECTIVE: Lesa Patterson came in with nausea and vomiting. No abdominal pain. Normally has loose stools. She had some pus around the PEG tube site. Surgery was consulted. Cultures were sent off. She is on IV Zosyn. She has severe protein-calorie malnutrition due to chronic gastroparesis. She recently went to a [facility] for a 2nd transfer due to severe gastroparesis for a possible pump being placed in her stomach. MEDICATIONS: Reviewed. Broad-spectrum antibiotics are on. OBJECTIVE: VITAL SIGNS: She is 97% on room air, temp 98.3, pulse 120, respiratory rate 16 to 18, blood pressure 149/83, and BMI 16.2. Severe loss of muscle mass, subcutaneous state. HEENT: Pupils are equal, round, and reactive. NECK: Supple. HEART: S1 and S2. LUNGS: Clear. She has mild to moderate COPD. PEG tube is in place. PSYCH: Appropriate mood and affect. MUSCULOSKELETAL: No clubbing or cyanosis. Muscle mass decreased. LABORATORY DATA: White count , creatinine 0.44. White count 13.6. Hemoglobin 11.2 and platelets 1075. Potassium is 5.3, BUN is 26, and creatinine 0.6. Serum acetone is negative. She has type 1 diabetes. Hyperinflation seen on chest x-ray. She has COPD. She has distal esophageal circumferential wall thickening compatible with esophagitis. She recently had an EGD done. She has acute on chronic gastroparesis with severe dehydration and severe protein-calorie malnutrition. Tube feeding is being started. Type 1 diabetes, insulin at home. Her A1c has recently come down from 13 down to 10. She has infection of a PEG tube site. Surgery is counseled on IV Zosyn. Insomnia, on Remeron. GERD, on Protonix. Depression, on Cymbalta. She had degenerative disk disease. Chronic pain in her cervical and lumbar spine. She takes [place] 5 b.i.d. COPD, she has DuoNeb and Pulmicort. Marijuana withholding is an issue. We will see what they did down at [facility] last time she was down there. Abdomen and pelvic CAT scan was reviewed. Dr. Chong saw her for surgery. She is supposed to get a gastric pump placed apparently she did not get one done yet. Esophagitis Dr. Chong wants to do. ART / IJN: [id number] /
[2023-06-18] MEDS: IPRATROPIUM-ALBUTEROL 3 ML NEB INHALATION SCH ×2 (08:58→22:02)
[2023-06-18] MEDS: BUDESONIDE 0.5 MG/2 ML NEBU INHALATION SCH ×2 (08:58→22:02)
[2023-06-18 09:09] LABS: BUN/Creat Ratio 15.17 Ratio (12.00-20.00); Blood Urea Nitrogen 9.1 mg/dL (9.0-27.0); Calcium 8.2 mg/dL (8.7-10.3); Carbon Dioxide 23.5 mmol/L (21.6-31.8); Chloride 108 mmol/L (96-109); Glucose 219 mg/dL (70-110); Potassium 4.3 mmol/L (3.5-5.5); Sodium 140 mmol/L (135-145); Total Protein 5.2 g/dL (6.2-8.2)
[2023-06-18 09:10] LABS: ALT 12 U/L (8-44); AST 22 U/L (13-35); Albumin 2.5 g/dL (3.8-4.9); Albumin/Globulin Ratio 0.93 Ratio (1.60-3.17); Alkaline Phosphatase 86 U/L (41-126); Globulin 2.7 g/dL (1.6-3.3); Total Bilirubin <0.2 mg/dL (0.3-1.2)
[2023-06-18 10:02] LABS: % Iron Saturation 7.12 (12.00-45.00)
[2023-06-18 11:10] LABS: Glucose,Whole Blood 220 mg/dL (70-110)
[2023-06-18] MEDS: SCOPOLAMINE 1 MG/72 HR PATCH TRANSDERM SCH (13:39)
--- NOTE | 2023-06-18 13:50 | P.PN ---
Subjective Progress Note Date: 06/18/23 CHIEF COMPLAINT: Gastrostomy infection HISTORY OF PRESENT ILLNESS: Patient reports that she is feeling well today. She is tolerating tube feeds. She denies any nausea or vomiting. She reports having a lot of stools. She had the PEG tube placed at [facility] 2 weeks ago. Tachycardic. Afebrile. WBC 7. 47 hgb 7.4 culture gram-negative bacilli PHYSICAL EXAM: VITAL SIGNS: Reviewed. GENERAL: Well-developed in no acute distress. ABDOMEN: Soft. Nondistended. Nontender. PEG tube site with decreased erythema minimal whitish drainage noted. ASSESSMENT: 1. Gastrostomy infection PLAN: -Continue tube feeds. Patient's oral intake is decreased. Continue regular diet as tolerated -Continue antibiotics Physician Dermatology Sales Representative note has been reviewed by physician. Signing provider agrees with the documented findings, assessment, and plan of care. Objective - Vital Signs Vital signs: Vital Signs Temp 98.5 F 06/18/23 07:35 Pulse 115 H 06/18/23 09:10 Resp 20 06/18/23 08:10 BP 117/75 06/18/23 07:35 Pulse Ox 100 06/18/23 07:35 FiO2 Intake & Output 06/17/23 06/18/23 06/18/23 18:59 06:59 18:59 Output Total 150 Balance -150 Weight 33.8 kg Output: Emesis 150 Other: # Voids 4 2 - Labs CBC & Chem 7: 06/18/23 06:21 06/18/23 06:21 Labs: Abnormal Lab Results - Last 24 Hours (Table) 06/17/23 06/17/23 06/17/23 Range/Units 08:44 08:44 16:18 RBC (4.10-5.20) X 10*6/uL Hgb (12.0-15.0) g/dL Hct (37.2-46.3) % MCHC (32.0-37.0) g/dL RDW (11.5-14.5) % Plt Count (140-440) X 10*3/uL MPV (9.5-12.2) FL Glucose (70-110) mg/dL POC Glucose (mg/dL) 253 H (70-110) mg/dL Hemoglobin A1c 9.0 H (<=6.0) % Calcium (8.7-10.3) mg/dL Iron 20 L (50-170) UG/DL % Saturation 7.12 L (12.00-45.00) Transferrin 201.0 L (204.0-354.0) mg/dL Total Bilirubin (0.3-1.2) mg/dL Total Protein (6.2-8.2) g/dL Albumin (3.8-4.9) g/dL Albumin/Globulin Ratio (1.60-3.17) Ratio 06/17/23 06/18/23 06/18/23 Range/Units 20:06 06:14 06:21 RBC 2.70 L (4.10-5.20) X 10*6/uL Hgb 7.4 L (12.0-15.0) g/dL Hct 23.8 L (37.2-46.3) % MCHC 31.1 L (32.0-37.0) g/dL RDW 15.0 H (11.5-14.5) % Plt Count 716 H (140-440) X 10*3/uL MPV 9.0 L (9.5-12.2) FL Glucose (70-110) mg/dL POC Glucose (mg/dL) 244 H 226 H (70-110) mg/dL Hemoglobin A1c (<=6.0) % Calcium (8.7-10.3) mg/dL Iron (50-170) UG/DL % Saturation (12.00-45.00) Transferrin (204.0-354.0) mg/dL Total Bilirubin (0.3-1.2) mg/dL Total Protein (6.2-8.2) g/dL Albumin (3.8-4.9) g/dL Albumin/Globulin Ratio (1.60-3.17) Ratio 06/18/23 06/18/23 Range/Units 06:21 11:09 RBC (4.10-5.20) X 10*6/uL Hgb (12.0-15.0) g/dL Hct (37.2-46.3) % MCHC (32.0-37.0) g/dL RDW (11.5-14.5) % Plt Count (140-440) X 10*3/uL MPV (9.5-12.2) FL Glucose 219 H (70-110) mg/dL POC Glucose (mg/dL) 220 H (70-110) mg/dL Hemoglobin A1c (<=6.0) % Calcium 8.2 L (8.7-10.3) mg/dL Iron (50-170) UG/DL % Saturation (12.00-45.00) Transferrin (204.0-354.0) mg/dL Total Bilirubin <0.2 L (0.3-1.2) mg/dL Total Protein 5.2 L (6.2-8.2) g/dL Albumin 2.5 L (3.8-4.9) g/dL Albumin/Globulin Ratio 0.93 L (1.60-3.17) Ratio Microbiology - Last 24 Hours (Table) 06/16/23 13:30 Gram Stain - Preliminary Abdomen Wound Culture - Preliminary Gram Neg Bacilli
[2023-06-18 16:21] LABS: Glucose,Whole Blood 205 mg/dL (70-110)
[2023-06-18] MEDS: SODIUM FERRIC GLUCONAT-SUCROSE 125 MG in SODIUM CHLORIDE 0.9% 100 ML IVPB SCH (17:41)
[2023-06-18 19:46] LABS: Glucose,Whole Blood 206 mg/dL (70-110)
[2023-06-18] MEDS: MIRTAZAPINE 15 MG TAB PO SCH (20:55)
--- NOTE | 2023-06-18 23:04 | PN ---
PROGRESS NOTE SUBJECTIVE: The patient was admitted to the hospital for gastroparesis, nausea, and vomiting. Has a PEG tube feedings for severe malnutrition. Gastrostomy infection and Surgery has been consulted. Hemoglobin 7.4, white count 7.47. OBJECTIVE: CARDIOVASCULAR: S1, S2. LUNGS: Clear. GI: Soft. PEG tube in place, erythema, whitish drainage. ASSESSMENT: Gastrostomy infection . Patient's oral intake decreased. Continue regular diet. Continue with tube feedings. Continue antibiotics. Waiting for Infectious Disease and Surgery to clear for discharge. Continue all home medications. Sugar is under better control. Prognosis guarded. There is no rectal bleeding or melena. She had some rehydration. Hemoglobin dropped from 11.2 to 7.2, tachycardic, possibly lost some blood through the PEG tube. Prognosis guarded. Monitor hemoglobin. Possible some benefit with infusions. Prognosis guarded. Insulin-dependent diabetes mellitus type 1. The patient is stable currently. Prognosis guarded. MMODL / IJN: [id number] /
[2023-06-19 05:57] LABS: Glucose,Whole Blood 202 mg/dL (70-110)
[2023-06-19] MEDS: SODIUM CHLORIDE 0.9% 1,000 ML IV SCH ×2 (06:39→22:23)
[2023-06-19] MEDS: INSULIN ASPART (NovoLOG) 100 UNIT/ML VIAL SQ SCH ×3 (06:39→17:14)
[2023-06-19] MEDS: PANTOPRAZOLE 40 MG TABLET PO SCH ×2 (06:39→17:14)
[2023-06-19] MEDS: METOCLOPRAMIDE 10 MG TAB PO SCH ×4 (06:39→22:13)
[2023-06-19] MEDS: ONDANSETRON 4 MG TAB PO SCH (08:33)
[2023-06-19] MEDS: HYDROcodone/APAP 5-325MG 1 EACH TAB PO SCH ×2 (08:33→15:48)
[2023-06-19] MEDS: ATORVASTATIN 20 MG TAB PO SCH (08:33)
[2023-06-19] MEDS: SODIUM BICARBONATE TAB 650 MG TAB PO SCH ×3 (08:33→22:13)
[2023-06-19] MEDS: POTASSIUM CHLORIDE ER 20 MEQ TAB.ER PO SCH (08:33)
[2023-06-19] MEDS: FOLIC ACID 1 MG TAB PO SCH (08:33)
[2023-06-19] MEDS: PIPERACILLIN-TAZOBACTAM 3.375 GM in SODIUM CHLORIDE 0.9% 100 ML IVPB SCH ×2 (08:33→16:24)
[2023-06-19] MEDS: MAGNESIUM OXIDE 400 MG TAB PO SCH (08:33)
[2023-06-19] MEDS: ALPRAZolam 0.25 MG TAB PO SCH ×2 (08:33→22:13)
[2023-06-19] MEDS: amLODIPine 5 MG TAB PO SCH ×2 (08:33→22:13)
[2023-06-19] MEDS: DULoxetine HCL 30 MG CAPSULE.DR PO SCH (08:33)
[2023-06-19 08:35] LABS: HCT 27.8 % (34.0-46.0); HGB 8.8 gm/dL (11.4-16.0); Hypochromasia Moderate; MCHC 31.7 g/dL (31.0-37.0); MCV 88.2 fL (80.0-100.0); Mean Platelet Volume 7.1; Platelet Count 732 k/uL (150-450); Poikilocytosis Slight; RBC 3.15 m/uL (3.80-5.40); RDW 15.7 % (11.5-15.5); WBC 6.4 k/uL (3.8-10.6)
--- NOTE | 2023-06-19 08:44 | CDI ---
Documentation Clarification Form Date: 06/19/2023 08:13:39 AM From: Berkley Jaquez RN CCDS Phone: [phone] Admit Date: 06/15/2023 07:15:00 AM Patient Name: Lesa Patterson Visit Number: [id number] Discharge Date: ATTENTION: The Clinical Documentation Specialists (CDI) and [facility] Coding Staff appreciate your assistance in clarifying documentation. Please respond to the clarification below the line at the bottom and electronically sign. The CDI & [facility] Coding staff will review the response and follow-up if needed. Please note: Queries are made part of the Legal Health Record. If you have any questions, please contact the author of this message via ITS. Dr. Dell Pike Conflicting documentation has been found in the medical record. As attending physician, please provide clarification. Type 2 Diabetes mellitus, H&P, 06/15 Type 1 Diabetes mellitus, Medicine note, 06/17 History/Risk Factors: 53 year-old female presents to the ED with abdominal pain. Medical History: Gastroparesis, DM, Peg Tube and GERD. Clinical Indicators: Glucose: 06/15: 03:38 - 344; 04:20 - 317; 16:43 - 150 06/16: 05:17 - 153; 11: 21 - 202; 17:05 - 171; 19:59 - 170 06/17: 05:58 - 210; 11:17 - 264; 16:18 - 253 Treatment: 06/15 Dextrose 50% IVP PRN Hypoglycemia; 06/15 Novolog SQ AC TID sliding scale Please clarify which diagnosis is most appropriate: [ ] Type 1 DM [ ] Type 2 DM [ ] Other (please specify) [ ] Unable to determine (Template Last Revised: August 2020) MTDD
[2023-06-19] MEDS: BUDESONIDE 0.5 MG/2 ML NEBU INHALATION SCH ×2 (09:09→19:49)
[2023-06-19] MEDS: IPRATROPIUM-ALBUTEROL 3 ML NEB INHALATION SCH ×2 (09:09→19:49)
[2023-06-19] MEDS: SODIUM FERRIC GLUCONAT-SUCROSE 125 MG in SODIUM CHLORIDE 0.9% 100 ML IVPB SCH (09:45)
[2023-06-19 11:58] LABS: Glucose,Whole Blood 177 mg/dL (70-110)
--- NOTE | 2023-06-19 15:16 | P.PN ---
Subjective Progress Note Date: 06/19/23 CHIEF COMPLAINT: Gastrostomy infection HISTORY OF PRESENT ILLNESS: Patient reports that she is feeling well today. She is tolerating tube feeds. She denies any nausea or vomiting. She had the PEG tube placed at [facility] 2 weeks ago. Remains Tachycardic. Afebrile. WBC 6.4 HGB 8.8 culture grew Klebsiella pneumonia and presumptive MRSA PHYSICAL EXAM: VITAL SIGNS: Reviewed. GENERAL: Well-developed in no acute distress. ABDOMEN: Soft. Nondistended. Nontender. PEG tube site with decreased erythema minimal cream colored drainage noted. ASSESSMENT: 1. Gastrostomy infection PLAN: -Continue tube feeds. Continue regular diet as tolerated -Consult infectious disease for antibiotic recommendations -Continue to clean around PEG tube site Physician Wind Energy Engineer note has been reviewed by physician. Signing provider agrees with the documented findings, assessment, and plan of care. Objective - Vital Signs Vital signs: Vital Signs Temp 98.1 F 06/19/23 07:42 Pulse 114 H 06/19/23 09:00 Resp 20 06/19/23 09:00 BP 109/73 06/19/23 07:42 Pulse Ox 98 06/19/23 07:42 FiO2 Intake & Output 06/18/23 06/19/23 06/19/23 18:59 06:59 18:59 Weight 33.8 kg 33.2 kg Other: Voiding Method Toilet - Labs CBC & Chem 7: 06/19/23 07:50 06/18/23 06:21 Labs: Abnormal Lab Results - Last 24 Hours (Table) 06/18/23 06/18/23 06/19/23 Range/Units 16:19 19:45 05:56 RBC (3.80-5.40) m/uL Hgb (11.4-16.0) gm/dL Hct (34.0-46.0) % RDW (11.5-15.5) % Plt Count (150-450) k/uL POC Glucose (mg/dL) 205 H 206 H 202 H (70-110) mg/dL 06/19/23 06/19/23 Range/Units 07:50 11:56 RBC 3.15 L (3.80-5.40) m/uL Hgb 8.8 L (11.4-16.0) gm/dL Hct 27.8 L (34.0-46.0) % RDW 15.7 H (11.5-15.5) % Plt Count 732 H (150-450) k/uL POC Glucose (mg/dL) 177 H (70-110) mg/dL Microbiology - Last 24 Hours (Table) 06/16/23 13:30 Gram Stain - Preliminary Abdomen Wound Culture - Preliminary Klebsiella pneumoniae Presumptive MRSA 06/16/23 13:30 Anaerobic Culture - Preliminary Abdomen
[2023-06-19] MEDS: ONDANSETRON 4 MG/2 ML VIAL IVP PRN (15:48)
[2023-06-19 16:41] LABS: Glucose,Whole Blood 159 mg/dL (70-110)
[2023-06-19] MEDS ORDERED: VANCOMYCIN IV PER PHARMACY 1 EACH MISC MISCELLANE PRN (17:25)
[2023-06-19] MEDS: ERTAPENEM 1 GM in SODIUM CHLORIDE 0.9% 50 ML IVPB SCH (18:33)
[2023-06-19] MEDS: VANCOMYCIN 500 MG in SODIUM CHLORIDE 0.9% 250 ML IVPB SCH (20:23)
[2023-06-19 20:25] LABS: % Iron Saturation 82.42 (12.00-45.00)
[2023-06-19 21:09] LABS: Glucose,Whole Blood 159 mg/dL (70-110)
[2023-06-19] MEDS: MIRTAZAPINE 15 MG TAB PO SCH (22:13)
--- NOTE | 2023-06-19 22:13 | P.CONS ---
History of Present Illness - Reason for Consult Consult date: 06/19/23 Gastrotomy infection Requesting physician: Jeniffer Zacarias - Chief Complaint Drainage around the PEG tube x few days - History of Present Illness Patient is a 53-year-old female with a past medical history Significant for diabetes mellitus musculoskeletal disorder did have a history of chronic nausea vomiting gastroparesis patient recently was evaluated [facility] and the patient did have placement of a gastrojejunostomy tube patient presented to [facility] on 06/15/2023 with concern for some purulent drainage from the gastrojejunostomy tube site patient was complaining of pain around the tube site to be dull aching mild to moderate intensity without any radiation minimal surrounding redness denies high-grade fever and the patient was afebrile on presentation to the hospital and no fever have recorded subsequently patient is tachycardic but not hypotensive or hypoxic patient did have white count of 13.6 on admission that has subsequently normalized BUN and creatinine has been normal liver enzymes are normal urine has been negative patient did have a CT of abdominal pelvis distal esophageal circumferential wall thickening up to 8 mm compatible esophagitis PEG tube in appropriate position no evidence of any intra-abdominal process patient was started on Zosyn local cultures obtained which came back positive with ESBL Klebsiella and MRSA that has prompted this infectious disease consult patient Review of Systems Positive point and negatives has been mentioned in the HPI, complete review of systems was performed and all other systems are negative 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 Year Discovered:: 05/19/23 MDRO Source:: Urine Past Surgical History: Orthopedic Surgery, Tubal Ligation Past Anesthesia/Blood Transfusion Reactions: No Reported Reaction Additional Past Anesthesia/Blood Transfusion Reaction / Comm: UNK FAMILY HX Past Psychological History: Anxiety Smoking Status: Former smoker Past Alcohol Use History: None Reported Additional Past Alcohol Use History / Comment(s): STARTED SMOKING 1987 Past Drug Use History: Marijuana Additional Drug Use History / Comment(s): HAS MEDICAL MARIJUANA CARD-USES DAILY AND FREQUENTLY - Past Family History Father History Unknown: Yes Additional Family Medical History / Comment(s): unknown-adopted Mother History Unknown: Yes Additional Family Medical History / Comment(s): unknown- adopted Medications and Allergies Home Medications Medication Instructions Recorded Confirmed Type ALPRAZolam [Xanax] 0.25 mg PO BID 05/12/23 06/15/23 History Atorvastatin [Lipitor] 20 mg PO DAILY 05/12/23 06/15/23 History Budesonide [Pulmicort] 0.5 mg INHALATION RT-BID 05/12/23 06/15/23 History DULoxetine HCL [Cymbalta] 30 mg PO DAILY 05/12/23 06/15/23 History HYDROcodone/APAP 5-325MG [[place] 1 tab PO BID 05/12/23 06/15/23 History 5-325] Insulin Glargine,Hum.rec.anlog 3 units SQ BID 05/12/23 06/15/23 History [Lantus Solostar Pen] Insulin Lispro [humaLOG Kwikpen] 2 unit SQ AC-TID 05/12/23 06/15/23 History Insulin Lispro [humaLOG Kwikpen] See Protocol SQ AC-TID 05/12/23 06/15/23 History Ipratropium-Albuterol Nebulize 3 ml INHALATION RT-BID 05/12/23 06/15/23 History [Duoneb 0.5 mg-3 mg/3 ml Soln] Magnesium Oxide [Mag-Ox] 400 mg PO DAILY 05/12/23 06/15/23 History Mirtazapine [Remeron] 30 mg PO HS 05/12/23 06/15/23 History Potassium Chloride ER [K-Dur 20] 20 meq PO DAILY 05/12/23 06/15/23 History Metoclopramide [Reglan] 10 mg PO ACHS 30 Days #120 tab 05/15/23 06/15/23 Rx Scopolamine 1 mg/72 Hr Patch 1 patch TRANSDERM Q72H 30 Days #10 05/15/23 06/15/23 Rx [TransDerm Scop] patch Pantoprazole [Protonix] 40 mg PO AC-BID 30 Days #60 tab 05/21/23 06/15/23 Rx Folic Acid 1 mg PO DAILY 06/15/23 06/15/23 History Ondansetron [Zofran] 4 mg PO DAILY 30 Days #30 tab 06/26/23 Rx Allergies Allergy/AdvReac Type Severity Reaction Status Date / Time fentanyl Allergy Unknown Verified 06/15/23 03:32 Physical Exam Vitals: Vital Signs Temp Pulse Resp BP Pulse Ox 06/19/23 14:28 98.8 F 115 H 19 107/69 98 06/19/23 09:00 114 H 20 06/19/23 07:42 98.1 F 114 H 20 109/73 98 06/19/23 01:17 98.4 F 104 H 22 121/78 95 06/18/23 19:01 98.8 F 110 H 22 94/67 99 Intake and Output 06/19/23 06/19/23 06/19/23 06:59 14:59 22:59 Other: Voiding Method Toilet Weight 33.2 kg GENERAL DESCRIPTION: Middle-aged female lying in bed, no distress. No tachypnea or accessory muscle of respiration use. HEENT: Shows Pallor , no scleral icterus. Oral mucous membrane is dry. No pharyn geal erythema or thrush NECK: Trachea central, no thyromegaly. LUNGS: Unlabored breathing. Clear to auscultation anteriorly. No wheeze or crackle. HEART: S1, S2, regular rate and rhythm. No loud murmur ABDOMEN: Soft, PEG tube site with no significant swelling redness minimal drainage on the dressing EXTREMITIES: No edema of feet. SKIN: No rash, no masses palpable. NEUROLOGICAL: The patient is awake, alert, oriented x3, mood and affect normal. Results CBC & Chem 7: 06/26/23 05:45 06/26/23 05:45 Labs: Abnormal Lab Results - Last 24 Hours (Table) 06/18/23 06/19/23 06/19/23 Range/Units 19:45 05:56 07:50 RBC 3.15 L (3.80-5.40) m/uL Hgb 8.8 L (11.4-16.0) gm/dL Hct 27.8 L (34.0-46.0) % RDW 15.7 H (11.5-15.5) % Plt Count 732 H (150-450) k/uL POC Glucose (mg/dL) 206 H 202 H (70-110) mg/dL Iron (50-170) UG/DL Transferrin (204.0-354.0) mg/dL Ferritin (10.0-291.0) ng/mL Vitamin B12 (200.0-944.0) pg/mL 06/19/23 06/19/23 06/19/23 Range/Units 09:51 11:56 16:40 RBC (3.80-5.40) m/uL Hgb (11.4-16.0) gm/dL Hct (34.0-46.0) % RDW (11.5-15.5) % Plt Count (150-450) k/uL POC Glucose (mg/dL) 177 H 159 H (70-110) mg/dL Iron 211 H (50-170) UG/DL Transferrin 183.0 L (204.0-354.0) mg/dL Ferritin 334.0 H (10.0-291.0) ng/mL Vitamin B12 2580.0 H (200.0-944.0) pg/mL Microbiology - Last 24 Hours (Table) 06/17/23 12:53 Urine Culture - Final Urine,Voided 06/16/23 13:30 Gram Stain - Preliminary Abdomen Wound Culture - Preliminary Klebsiella pneumoniae Presumptive MRSA 06/16/23 13:30 Anaerobic Culture - Preliminary Abdomen Assessment and Plan (1) Gastrostomy infection Status: Acute Code(s): K94.22 - GASTROSTOMY INFECTION SNOMED Code(s): 161703605 Plan: 1patient with a positive culture from the PEG tube site growing ESBL Klebsiella and presumptive MRSA in this patient who recently did have a PEG tube placement for chronic nausea gastroparesis CT abdominal pannus on admission did not show any evidence of intra-abdominal abscess or abdominal wall abscess with a question of mild cellulitis versus possible colonization around the PEG tube site as the patient not running a fever she did have a elevated white count on admission however white count is subsequent normalized without getting any treatment for ESBL or MRSA 2-for now we will discontinue Zosyn start Invanz and vancomycin and see clinical response We will follow on clinical condition and cultures to further adjust medication if needed Thank you for this consultation we will follow the patient along with you Dictation was produced using [employer] dictation software. please excuse any grammatical, word or spelling errors. Time with Patient: Greater than 30
--- NOTE | 2023-06-19 22:51 | P.CONS ---
History of Present Illness - Reason for Consult Consult date: 06/19/23 anemia Requesting physician: Dell Pike - Chief Complaint abdominal pain - History of Present Illness Patient is a 53-year-old female with a significant history of chronic abdominal pain and diabetic gastroparesis. Consult was placed for anemia. Patient presented to the emergency room with complaints of diffuse abdominal pain and progressing nausea vomiting diarrhea over the last couple days. Patient states symptoms been have persisting for over a year but have been worsening over the last 6 months. She follows with GI at [facility] and had PEG tube placed. Awaiting placement of gastric stimulator. Upon admission CT abdomen pelvis revealed distal esophageal circumferential wall thickening up to 8 mm compatible with esophagitis. PEG tube in appropriate position. No additional evidence for acute intra-abdominal processes. There is also concern for gastrostomy infection. Patient has been started on IV antibiotics, ID and general surgery consulted. CBC reviewed, hemoglobin 8.8, MCV 88. Hemoglobin was 11.2 on admission. Denies blood in stool and melena. Platelets noted at 1075, with improvement today at 732. Denies any history of blood disorders. Upon trending labs, anemia was noted early last month, no noted history of thrombocytosis. LFTs and bilirubin normal. Amylase and lipase normal. 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 Year Discovered:: 05/19/23 MDRO Source:: Urine Past Surgical History: Orthopedic Surgery, Tubal Ligation Past Anesthesia/Blood Transfusion Reactions: No Reported Reaction Additional Past Anesthesia/Blood Transfusion Reaction / Comm: UNK FAMILY HX Past Psychological History: Anxiety Smoking Status: Former smoker Past Alcohol Use History: None Reported Additional Past Alcohol Use History / Comment(s): STARTED SMOKING 1987 Past Drug Use History: Marijuana Additional Drug Use History / Comment(s): HAS MEDICAL MARIJUANA CARD-USES DAILY AND FREQUENTLY - Past Family History Father History Unknown: Yes Additional Family Medical History / Comment(s): unknown-adopted Mother History Unknown: Yes Additional Family Medical History / Comment(s): unknown- adopted Medications and Allergies Home Medications Medication Instructions Recorded Confirmed Type Ondansetron [Zofran] 4 mg PO DAILY 08/12/15 06/15/23 History ALPRAZolam [Xanax] 0.25 mg PO BID 05/12/23 06/15/23 History Atorvastatin [Lipitor] 20 mg PO DAILY 05/12/23 06/15/23 History Budesonide [Pulmicort] 0.5 mg INHALATION RT-BID 05/12/23 06/15/23 History DULoxetine HCL [Cymbalta] 30 mg PO DAILY 05/12/23 06/15/23 History HYDROcodone/APAP 5-325MG [[place] 1 tab PO BID 05/12/23 06/15/23 History 5-325] Insulin Glargine,Hum.rec.anlog 3 units SQ BID 05/12/23 06/15/23 History [Lantus Solostar Pen] Insulin Lispro [humaLOG Kwikpen] 2 unit SQ AC-TID 05/12/23 06/15/23 History Insulin Lispro [humaLOG Kwikpen] See Protocol SQ AC-TID 05/12/23 06/15/23 History Ipratropium-Albuterol Nebulize 3 ml INHALATION RT-BID 05/12/23 06/15/23 History [Duoneb 0.5 mg-3 mg/3 ml Soln] Magnesium Oxide [Mag-Ox] 400 mg PO DAILY 05/12/23 06/15/23 History Mirtazapine [Remeron] 30 mg PO HS 05/12/23 06/15/23 History Omeprazole 20 mg PO DAILY 05/12/23 06/15/23 History Potassium Chloride ER [K-Dur 20] 20 meq PO DAILY 05/12/23 06/15/23 History amLODIPine [Norvasc] 5 mg PO BID 05/12/23 06/15/23 History Metoclopramide [Reglan] 10 mg PO ACHS 30 Days #120 tab 05/15/23 06/15/23 Rx Scopolamine 1 mg/72 Hr Patch 1 patch TRANSDERM Q72H 30 Days #10 05/15/23 06/15/23 Rx [TransDerm Scop] patch Pantoprazole [Protonix] 40 mg PO AC-BID 30 Days #60 tab 05/21/23 06/15/23 Rx Folic Acid 1 mg PO DAILY 06/15/23 06/15/23 History methocarbamoL [Robaxin] 500 - 1,000 mg PO Q8H PRN 06/15/23 06/15/23 History Allergies Allergy/AdvReac Type Severity Reaction Status Date / Time fentanyl Allergy Unknown Verified 06/15/23 03:32 Physical Exam Vitals: Vital Signs Temp Pulse Resp BP Pulse Ox 06/19/23 20:10 98.1 F 115 H 22 146/87 98 06/19/23 14:28 98.8 F 115 H 19 107/69 98 06/19/23 09:00 114 H 20 06/19/23 07:42 98.1 F 114 H 20 109/73 98 06/19/23 01:17 98.4 F 104 H 22 121/78 95 Intake and Output 06/19/23 06/19/23 06/19/23 06:59 14:59 22:59 Other: Voiding Method Toilet Weight 33.2 kg - Constitutional General appearance: no acute distress, thin - EENT Eyes: EOMI ENT: hearing grossly normal - Respiratory Respiratory: bilateral: CTA - Cardiovascular Rhythm: regular Heart sounds: normal: S1, S2 - Gastrointestinal General gastrointestinal: soft, tenderness Localized gastrointestinal: tender: diffuse - Integumentary Integumentary: no cyanotic - Musculoskeletal grossly intact - Psychiatric Psychiatric: A&O x's 3 Results CBC & Chem 7: 06/19/23 07:50 06/18/23 06:21 Labs: Abnormal Lab Results - Last 24 Hours (Table) 06/19/23 06/19/23 06/19/23 Range/Units 05:56 07:50 09:51 RBC 3.15 L (3.80-5.40) m/uL Hgb 8.8 L (11.4-16.0) gm/dL Hct 27.8 L (34.0-46.0) % RDW 15.7 H (11.5-15.5) % Plt Count 732 H (150-450) k/uL POC Glucose (mg/dL) 202 H (70-110) mg/dL Iron 211 H (50-170) UG/DL % Saturation 82.42 H (12.00-45.00) Transferrin 183.0 L (204.0-354.0) mg/dL Ferritin 334.0 H (10.0-291.0) ng/mL Vitamin B12 2580.0 H (200.0-944.0) pg/mL Folate (4.40-31.00) ng/mL 06/19/23 06/19/23 06/19/23 Range/Units 09:51 11:56 16:40 RBC (3.80-5.40) m/uL Hgb (11.4-16.0) gm/dL Hct (34.0-46.0) % RDW (11.5-15.5) % Plt Count (150-450) k/uL POC Glucose (mg/dL) 177 H 159 H (70-110) mg/dL Iron (50-170) UG/DL % Saturation (12.00-45.00) Transferrin (204.0-354.0) mg/dL Ferritin (10.0-291.0) ng/mL Vitamin B12 (200.0-944.0) pg/mL Folate 35.80 H (4.40-31.00) ng/mL 06/19/23 Range/Units 21:07 RBC (3.80-5.40) m/uL Hgb (11.4-16.0) gm/dL Hct (34.0-46.0) % RDW (11.5-15.5) % Plt Count (150-450) k/uL POC Glucose (mg/dL) 159 H (70-110) mg/dL Iron (50-170) UG/DL % Saturation (12.00-45.00) Transferrin (204.0-354.0) mg/dL Ferritin (10.0-291.0) ng/mL Vitamin B12 (200.0-944.0) pg/mL Folate (4.40-31.00) ng/mL Microbiology - Last 24 Hours (Table) 06/16/23 13:30 Gram Stain - Final Abdomen Wound Culture - Final Klebsiella pneumoniae Methicillin resist S. aureus 06/17/23 12:53 Urine Culture - Final Urine,Voided 06/16/23 13:30 Anaerobic Culture - Preliminary Abdomen Chest x-ray: report reviewed CT scan - abdomen: report reviewed CT scan - pelvis: report reviewed Assessment and Plan (1) Chronic abdominal pain Current Visit: Yes Status: Acute Priority: Medium Code(s): R10.9 - UNSPECIFIED ABDOMINAL PAIN; G89.29 - OTHER CHRONIC PAIN SNOMED Code(s): 448408415 (2) Esophagitis Current Visit: Yes Status: Acute Priority: High Code(s): K20.90 - ESOPHAGITIS, UNSPECIFIED WITHOUT BLEEDING SNOMED Code(s): 09462229 (3) Anemia Current Visit: Yes Status: Acute Priority: Medium Code(s): D64.9 - ANEMIA, UNSPECIFIED SNOMED Code(s): 171454554 Plan: Esophagitis: -Hx of chronic abdominal pain and diabetic gastroparesis. Presented with complaints of diffuse abdominal pain and progressing nausea vomiting diarrhea over the last couple days. She follows with GI at [facility] and had PEG tube placed. Awaiting placement of gastric stimulator. Upon admission CT abdomen pelvis revealed distal esophageal circumferential wall thickening up to 8 mm compatible with esophagitis. PEG tube in appropriate position. No additional evidence for acute intra-abdominal processes. There us also concern for gastrostomy infection. Patient has been started on IV antibiotics, ID and general surgery consulted Anemia/Thrombocytosis: -CBC reviewed, hemoglobin 8.8, MCV 88. Hemoglobin was 11.2 on admission. Denies blood in stool and melena. Upon trending labs, anemia was noted early last month. -Platelets noted at 1075, with improvement today at 732. Denies any history of blood disorders. Upon trending labs, no noted history of thrombocytosis. LFTs and bilirubin normal. Amylase and lipase normal. -Anemia workup ordered -Anemia and thrombocytosis likely reactive in nature. Would expect counts to improve as patient recovers -If thrombocytosis persists despite improvement in acute condition, would recommend MPN workup Pt updated on findings and POC
--- NOTE | 2023-06-19 23:44 | PN ---
PROGRESS NOTE SUBJECTIVE: The patient has Klebsiella pneumonia, presumptive MRSA from the wound in her abdomen around the PEG tube, presumptive MRSA. Waiting for broad-spectrum antibiotics to be set up. She has a history of MRSA UTI. Hemoglobin is 8.8, white count 6.4. Iron level is 211. B12 is high also. Sugars mid 100s to 100. A1c is 9.0 on 06/17/2023. This infection, will have to continue to have treatment as an outpatient. Prognosis is guarded. OBJECTIVE: CARDIOVASCULAR: S1, S2. LUNGS: Clear. GI: Soft. HEMATOLOGY: Negative for Homans. PLAN: Continue with broad-spectrum as per Dr. Brunson's recommendations. Continue breathing treatments COPD. Wait for Dr. Brunson. Recommend antibiotics to take at home. Prognosis guarded. MMODL / IJN: [id number] /
[2023-06-20] MEDS: HYDROcodone/APAP 5-325MG 1 EACH TAB PO SCH ×4 (00:28→23:46)
[2023-06-20 05:14] LABS: Glucose,Whole Blood 154 mg/dL (70-110)
[2023-06-20] MEDS: INSULIN ASPART (NovoLOG) 100 UNIT/ML VIAL SQ SCH ×3 (06:29→16:17)
[2023-06-20] MEDS: METOCLOPRAMIDE 10 MG TAB PO SCH ×4 (06:29→20:31)
[2023-06-20] MEDS: PANTOPRAZOLE 40 MG TABLET PO SCH ×2 (06:29→17:21)
[2023-06-20] MEDS: IPRATROPIUM-ALBUTEROL 3 ML NEB INHALATION SCH ×2 (09:13→20:31)
[2023-06-20] MEDS: BUDESONIDE 0.5 MG/2 ML NEBU INHALATION SCH ×2 (09:13→20:30)
[2023-06-20] MEDS: ALPRAZolam 0.25 MG TAB PO SCH ×2 (09:29→20:31)
[2023-06-20] MEDS: ATORVASTATIN 20 MG TAB PO SCH (09:29)
[2023-06-20] MEDS: FOLIC ACID 1 MG TAB PO SCH (09:29)
[2023-06-20] MEDS: amLODIPine 5 MG TAB PO SCH ×2 (09:29→20:31)
[2023-06-20] MEDS: MAGNESIUM OXIDE 400 MG TAB PO SCH (09:29)
[2023-06-20] MEDS: ONDANSETRON 4 MG TAB PO SCH (09:29)
[2023-06-20] MEDS: POTASSIUM CHLORIDE ER 20 MEQ TAB.ER PO SCH (09:29)
[2023-06-20] MEDS: SODIUM BICARBONATE TAB 650 MG TAB PO SCH ×3 (09:29→20:31)
[2023-06-20] MEDS: DULoxetine HCL 30 MG CAPSULE.DR PO SCH (09:29)
[2023-06-20] MEDS: SODIUM CHLORIDE 0.9% 1,000 ML IV SCH ×2 (10:19→20:37)
[2023-06-20 11:26] LABS: Glucose,Whole Blood 174 mg/dL (70-110)
[2023-06-20] MEDS: ERTAPENEM 1 GM in SODIUM CHLORIDE 0.9% 50 ML IVPB SCH (11:36)
[2023-06-20] MEDS: SODIUM FERRIC GLUCONAT-SUCROSE 125 MG in SODIUM CHLORIDE 0.9% 100 ML IVPB SCH (11:36)
[2023-06-20] MEDS: VANCOMYCIN 500 MG in SODIUM CHLORIDE 0.9% 250 ML IVPB SCH (11:37)
--- NOTE | 2023-06-20 12:26 | P.PN ---
Subjective Progress Note Date: 06/20/23 CHIEF COMPLAINT: Gastrostomy infection HISTORY OF PRESENT ILLNESS: Patient reports that she is feeling well today. She is tolerating tube feeds. She denies any nausea or vomiting. She had the PEG tube placed at [facility] 2 weeks ago. Remains Tachycardic. Afebrile. culture grew ESBL Klebsiella pneumonia and presumptive MRSA. Patient seen by infectious disease. Antibiotics changed. Appreciate their recommendations. PHYSICAL EXAM: VITAL SIGNS: Reviewed. GENERAL: Well-developed in no acute distress. ABDOMEN: Soft. Nondistended. Nontender. PEG tube site with no erythema minimal cream colored drainage noted. ASSESSMENT: 1. Gastrostomy infection PLAN: -Continue tube feeds. Continue regular diet as tolerated -Antibiotics per infectious disease -No surgical intervention planned Physician Tax Associate Attorney note has been reviewed by physician. Signing provider agrees with the documented findings, assessment, and plan of care. Objective - Vital Signs Vital signs: Vital Signs Temp 97.8 F 06/20/23 08:00 Pulse 117 H 06/20/23 08:00 Resp 18 06/20/23 08:00 BP 128/82 06/20/23 08:00 Pulse Ox 100 06/20/23 08:00 FiO2 Intake & Output 06/19/23 06/20/23 06/20/23 18:59 06:59 18:59 Other: Voiding Method Toilet - Labs CBC & Chem 7: 06/19/23 07:50 06/18/23 06:21 Labs: Abnormal Lab Results - Last 24 Hours (Table) 06/19/23 06/19/23 06/19/23 Range/Units 09:51 09:51 11:56 POC Glucose (mg/dL) 177 H (70-110) mg/dL Iron 211 H (50-170) UG/DL % Saturation 82.42 H (12.00-45.00) Transferrin 183.0 L (204.0-354.0) mg/dL Ferritin 334.0 H (10.0-291.0) ng/mL Vitamin B12 2580.0 H (200.0-944.0) pg/mL Folate 35.80 H (4.40-31.00) ng/mL 06/19/23 06/19/23 06/20/23 Range/Units 16:40 21:07 05:12 POC Glucose (mg/dL) 159 H 159 H 154 H (70-110) mg/dL Iron (50-170) UG/DL % Saturation (12.00-45.00) Transferrin (204.0-354.0) mg/dL Ferritin (10.0-291.0) ng/mL Vitamin B12 (200.0-944.0) pg/mL Folate (4.40-31.00) ng/mL Microbiology - Last 24 Hours (Table) 06/16/23 13:30 Gram Stain - Final Abdomen Wound Culture - Final Klebsiella pneumoniae Methicillin resist S. aureus 06/17/23 12:53 Urine Culture - Final Urine,Voided
[2023-06-20] MEDS: LEVOFLOXACIN 500 MG TAB PO SCH (13:10)
[2023-06-20] MEDS: SULFAMETHOX-TMP 800-160MG 1 EACH TAB PO SCH ×2 (13:24→20:31)
[2023-06-20 16:18] LABS: Glucose,Whole Blood 130 mg/dL (70-110)
--- NOTE | 2023-06-20 16:59 | P.PN ---
Subjective Progress Note Date: 06/20/23 Principal diagnosis: Reason for follow-up is PEG tube site culture positive with MRSA and ESBL Klebsiella Patient is a 53-year-old female with a past medical history Si gnificant for diabetes mellitus musculoskeletal disorder did have a history of chronic nausea vomiting gastroparesis patient recently was evaluated [facility] and the patient did have placement of a gastrojejunostomy tube patient presented to [facility] ER on 06/15/2023 with concern for some purulent drainage from the gastrojejunostomy tube site, CT abdominal pelvis did not show any abscess culture subsequently grew MRSA and ESBL Klebsiella prompting this infectious disease consultation On today's evaluation that is 06/20/2023, the patient denies having any fever or any chills has been, some mild discomfort around the PEG tube site but no further drainage denies any chest pain shortness of breath or cough no nausea no vomiting nursing staff has not been able to get a peripheral IV on her and requesting for midline or PICC line. Patient did have a white count of 6.4 creatinine 0.6 as of yesterday no lab draw today Objective - Vital Signs Vital signs: Vital Signs Temp 97.8 F 06/20/23 08:00 Pulse 117 H 06/20/23 09:15 Resp 18 06/20/23 08:00 BP 128/82 06/20/23 08:00 Pulse Ox 100 06/20/23 08:00 FiO2 Intake & Output 06/19/23 06/20/23 06/20/23 18:59 06:59 18:59 Other: Voiding Method Toilet - Exam GENERAL DESCRIPTION: middle-age female lying in bed in no distress RESPIRATORY SYSTEM: Unlabored breathing , decreased breath sounds at bases HEART: S1 S2 regular rate and rhythm , ABDOMEN: Soft , no tenderness PEG tube site with no redness or drainage EXTREMITIES: No edema feet - Labs CBC & Chem 7: 06/19/23 07:50 06/18/23 06:21 Labs: Abnormal Lab Results - Last 24 Hours (Table) 06/19/23 06/19/23 06/19/23 Range/Units 09:51 09:51 16:40 POC Glucose (mg/dL) 159 H (70-110) mg/dL Iron 211 H (50-170) UG/DL % Saturation 82.42 H (12.00-45.00) Transferrin 183.0 L (204.0-354.0) mg/dL Ferritin 334.0 H (10.0-291.0) ng/mL Vitamin B12 2580.0 H (200.0-944.0) pg/mL Folate 35.80 H (4.40-31.00) ng/mL 06/19/23 06/20/23 06/20/23 Range/Units 21:07 05:12 11:25 POC Glucose (mg/dL) 159 H 154 H 174 H (70-110) mg/dL Iron (50-170) UG/DL % Saturation (12.00-45.00) Transferrin (204.0-354.0) mg/dL Ferritin (10.0-291.0) ng/mL Vitamin B12 (200.0-944.0) pg/mL Folate (4.40-31.00) ng/mL Microbiology - Last 24 Hours (Table) 06/16/23 13:30 Gram Stain - Final Abdomen Wound Culture - Final Klebsiella pneumoniae Methicillin resist S. aureus 06/17/23 12:53 Urine Culture - Final Urine,Voided Assessment and Plan (1) ESBL (extended spectrum beta-lactamase) producing bacteria infection Current Visit: Yes Status: Acute Code(s): A49.9 - BACTERIAL INFECTION, UNSPECIFIED; Z16.12 - EXTENDED SPECTRUM BETA LACTAMASE (ESBL) RESISTANCE SNOMED Code(s): 957941644 (2) Gastrostomy infection Current Visit: Yes Status: Acute Code(s): K94.22 - GASTROSTOMY INFECTION SNOMED Code(s): 118239280 (3) MRSA (methicillin resistant staph aureus) culture positive Current Visit: No Status: Acute Code(s): Z22.322 - CARRIER OR SUSPECTED CARRIER OF METHICILLIN RESIS STAPH SNOMED Code(s): 283443576 Plan: 1patient with a positive culture from the PEG tube site growing ESBL Klebsiella and presumptive MRSA in this patient who recently did have a PEG tube placement for chronic nausea gastroparesis CT abdominal pannus on admission did not show any evidence of intra-abdominal abscess or abdominal wall abscess with a question of mild cellulitis versus possible colonization around the PEG tube site as the patient not running a fever she did have a elevated white count on admission however white count is subsequent normalized without getting any treatment for ESBL or MRSA 2nursing staff unable to place a peripheral IV patient is afebrile white count normal and no significant cellulitis we will discontinue vancomycin and Invanz consider short course of Bactrim and Levaquin down the PEG tube Dictation was produced using [employer] dictation software. please excuse any grammatical, word or spelling errors. Time with Patient: Less than 30
[2023-06-20] MEDS: MIRTAZAPINE 15 MG TAB PO SCH (20:31)
[2023-06-20 21:05] LABS: Glucose,Whole Blood 160 mg/dL (70-110)
--- NOTE | 2023-06-21 01:20 | PN ---
PROGRESS NOTE SUBJECTIVE: This is a 53-year-old white female, some nausea and vomiting, unable to swallow, continues with tube feeding. Possible discharge home once gastroparesis resolves. Check electrolytes. Continue on antibiotics per Dr. Brnuson. Add Cipro and Flagyl possibly to the PEG tube for a while. Prognosis guarded. OBJECTIVE: CARDIOVASCULAR: S1, S2. LUNGS: Transmitted upper airway sounds. GI: Tenderness to palpation, epigastric. HEMATOLOGY: Negative Homans. ASSESSMENT: PEG tube infection, GERD, insulin-dependent diabetes mellitus, gastroparesis, insomnia. Prognosis extremely guarded. Follow up in next 24 to 48 hours. Possible discharge home when oral intake improves. MMODL / IJN: [id number] /
[2023-06-21 05:14] LABS: Glucose,Whole Blood 171 mg/dL (70-110)
[2023-06-21 06:26] LABS: Methylmalonic Acid 0.12 umol/L (<0.40)
[2023-06-21] MEDS: INSULIN ASPART (NovoLOG) 100 UNIT/ML VIAL SQ SCH ×3 (06:51→17:02)
[2023-06-21 06:58] LABS: African American GFR (CKD) >90 (>60 ml/min/1.73 sqM); Non-African American GFR(CKD) >90 (>60 ml/min/1.73 sqM)
[2023-06-21] MEDS: BUDESONIDE 0.5 MG/2 ML NEBU INHALATION SCH ×2 (08:50→20:47)
[2023-06-21] MEDS: IPRATROPIUM-ALBUTEROL 3 ML NEB INHALATION SCH ×2 (08:51→20:47)
[2023-06-21] MEDS: ATORVASTATIN 20 MG TAB PO SCH (08:57)
[2023-06-21] MEDS: MAGNESIUM OXIDE 400 MG TAB PO SCH (08:57)
[2023-06-21] MEDS: PANTOPRAZOLE 40 MG TABLET PO SCH ×2 (08:57→17:33)
[2023-06-21] MEDS: SODIUM BICARBONATE TAB 650 MG TAB PO SCH ×3 (08:58→22:08)
[2023-06-21] MEDS: ALPRAZolam 0.25 MG TAB PO SCH ×2 (08:58→22:08)
[2023-06-21] MEDS: amLODIPine 5 MG TAB PO SCH (08:58)
[2023-06-21] MEDS: SULFAMETHOX-TMP 800-160MG 1 EACH TAB PO SCH ×2 (08:58→22:08)
[2023-06-21] MEDS: HYDROcodone/APAP 5-325MG 1 EACH TAB PO SCH ×2 (08:58→15:33)
[2023-06-21] MEDS: DULoxetine HCL 30 MG CAPSULE.DR PO SCH (08:58)
[2023-06-21] MEDS: ONDANSETRON 4 MG TAB PO SCH (08:59)
[2023-06-21] MEDS: METOCLOPRAMIDE 10 MG TAB PO SCH ×4 (08:59→22:08)
[2023-06-21] MEDS: FOLIC ACID 1 MG TAB PO SCH (08:59)
[2023-06-21] MEDS: POTASSIUM CHLORIDE ER 20 MEQ TAB.ER PO SCH (09:59)
[2023-06-21] MEDS: POTASSIUM BICARBONATE/CIT AC 20 MEQ TABLET.EFF PO SCH (10:04)
[2023-06-21] MEDS: SODIUM FERRIC GLUCONAT-SUCROSE 125 MG in SODIUM CHLORIDE 0.9% 100 ML IVPB SCH (11:05)
--- NOTE | 2023-06-21 11:29 | P.PN ---
Subjective Progress Note Date: 06/21/23 CHIEF COMPLAINT: Gastrostomy infection HISTORY OF PRESENT ILLNESS: Patient complains of nausea today. She is tolerating tube feeds. She is receiving oral antibiotics through the PEG tube. She had the PEG tube placed at [facility] 2 weeks ago. Remains Tachycardic. Hypotensive early this a.m. Afebrile. culture grew ESBL Klebsiella pneumonia and presumptive MRSA. Patient seen by infectious disease. Antibiotics changed. Appreciate their recommendations. PHYSICAL EXAM: VITAL SIGNS: Reviewed. GENERAL: Well-developed in no acute distress. ABDOMEN: Soft. Nondistended. Nontender. PEG tube site with no erythema minimal cream colored drainage noted. ASSESSMENT: 1. Gastrostomy infection PLAN: -Continue tube feeds. Continue regular diet as tolerated -Antibiotics per infectious disease -No surgical intervention planned Physician Business Data Analyst note has been reviewed by physician. Signing provider agrees with the documented findings, assessment, and plan of care. Objective - Vital Signs Vital signs: Vital Signs Temp 97.9 F 06/21/23 02:00 Pulse 113 H 06/21/23 02:00 Resp 20 06/21/23 02:00 BP 88/55 06/21/23 02:00 Pulse Ox 97 06/21/23 02:00 FiO2 Intake & Output 06/20/23 06/21/23 06/21/23 18:59 06:59 18:59 Weight 33.6 kg Other: Voiding Method Toilet - Labs CBC & Chem 7: 06/19/23 07:50 06/21/23 05:43 Labs: Abnormal Lab Results - Last 24 Hours (Table) 06/19/23 06/20/23 06/20/23 Range/Units 09:51 11:25 16:17 POC Glucose (mg/dL) 174 H 130 H (70-110) mg/dL Copper 639 L (810-1990) ug/L 06/20/23 06/21/23 Range/Units 21:04 05:10 POC Glucose (mg/dL) 160 H 171 H (70-110) mg/dL Copper (810-1990) ug/L Microbiology - Last 24 Hours (Table) 06/16/23 13:30 Anaerobic Culture - Final Abdomen
[2023-06-21 11:46] LABS: Glucose,Whole Blood 177 mg/dL (70-110)
[2023-06-21] MEDS: LEVOFLOXACIN 500 MG TAB PO SCH (12:31)
[2023-06-21] MEDS: SCOPOLAMINE 1 MG/72 HR PATCH TRANSDERM SCH (12:32)
[2023-06-21] MEDS: SODIUM CHLORIDE 0.9% 1,000 ML IV SCH ×2 (12:39→22:12)
[2023-06-21 16:37] LABS: Glucose,Whole Blood 136 mg/dL (70-110)
--- NOTE | 2023-06-21 16:41 | P.PN ---
Subjective Progress Note Date: 06/21/23 Principal diagnosis: Reason for follow-up is PEG tube site culture positive with MRSA and ESBL Klebsiella Patient is a 53-year-old female with a past medical history Si gnificant for diabetes mellitus musculoskeletal disorder did have a history of chronic nausea vomiting gastroparesis patient recently was evaluated [facility] and the patient did have placement of a gastrojejunostomy tube patient presented to [facility] ER on 06/15/2023 with concern for some purulent drainage from the gastrojejunostomy tube site, CT abdominal pelvis did not show any abscess culture subsequently grew MRSA and ESBL Klebsiella prompting this infectious disease consultation On today's evaluation that is 06/21/2023, the patient denies any fever or any chills, the patient is breathing comfortably on room air, the patient denies having any chest pain shortness of the cough, the patient denies nausea or vomiting no abdominal pain denies any further drainage around the PEG tube site The patient did have a creatinine of 0.52 no CBC was done today Objective - Vital Signs Vital signs: Vital Signs Temp 97.9 F 06/21/23 02:00 Pulse 113 H 06/21/23 02:00 Resp 20 06/21/23 02:00 BP 88/55 06/21/23 02:00 Pulse Ox 97 06/21/23 02:00 FiO2 Intake & Output 06/20/23 06/21/23 06/21/23 18:59 06:59 18:59 Weight 33.6 kg Other: Voiding Method Toilet - Exam GENERAL DESCRIPTION: middle-age female lying in bed in no distress RESPIRATORY SYSTEM: Unlabored breathing , decreased breath sounds at bases HEART: S1 S2 regular rate and rhythm , ABDOMEN: Soft , no tenderness PEG tube site with no redness or drainage EXTREMITIES: No edema feet - Labs CBC & Chem 7: 06/19/23 07:50 06/21/23 05:43 Labs: Abnormal Lab Results - Last 24 Hours (Table) 06/20/23 06/20/23 06/21/23 Range/Units 16:17 21:04 05:10 POC Glucose (mg/dL) 130 H 160 H 171 H (70-110) mg/dL 06/21/23 Range/Units 11:45 POC Glucose (mg/dL) 177 H (70-110) mg/dL Microbiology - Last 24 Hours (Table) 06/16/23 13:30 Anaerobic Culture - Final Abdomen Assessment and Plan (1) ESBL (extended spectrum beta-lactamase) producing bacteria infection Current Visit: Yes Status: Acute Code(s): A49.9 - BACTERIAL INFECTION, UNSPECIFIED; Z16.12 - EXTENDED SPECTRUM BETA LACTAMASE (ESBL) RESISTANCE SNOMED Code(s): 669205568 (2) Gastrostomy infection Current Visit: Yes Status: Acute Code(s): K94.22 - GASTROSTOMY INFECTION SNOMED Code(s): 490197639 (3) MRSA (methicillin resistant staph aureus) culture positive Current Visit: No Status: Acute Code(s): Z22.322 - CARRIER OR SUSPECTED C ARRIER OF METHICILLIN RESIS STAPH SNOMED Code(s): 363400423 Plan: 1patient with a positive culture from the PEG tube site growing ESBL Klebsiella and presumptive MRSA in this patient who recently did have a PEG tube placement for chronic nausea gastroparesis CT abdominal pannus on admission did not show any evidence of intra-abdominal abscess or abdominal wall abscess with a question of mild cellulitis versus possible colonization around the PEG tube site as the patient not running a fever she did have a elevated white count on admission however white count is subsequent normalized without getting any treatment for ESBL or MRSA 2patient to continue with the Bactrim DS and Levaquin on the PEG tube and the patient seem to have shown some clinical improvement Dictation was produced using [employer] dictation software. please excuse any grammatical, word or spelling errors. Time with Patient: Less than 30
[2023-06-21 19:58] LABS: Glucose,Whole Blood 166 mg/dL (70-110)
[2023-06-21] MEDS: MIRTAZAPINE 15 MG TAB PO SCH (22:07)
[2023-06-22] MEDS: HYDROcodone/APAP 5-325MG 1 EACH TAB PO SCH ×3 (00:44→15:52)
[2023-06-22 05:54] LABS: Glucose,Whole Blood 199 mg/dL (70-110)
[2023-06-22] MEDS: PANTOPRAZOLE 40 MG TABLET PO SCH ×2 (06:31→17:38)
[2023-06-22] MEDS: METOCLOPRAMIDE 10 MG TAB PO SCH ×4 (06:31→21:59)
[2023-06-22] MEDS: INSULIN ASPART (NovoLOG) 100 UNIT/ML VIAL SQ SCH ×3 (06:31→16:40)
[2023-06-22 07:14] LABS: ALT 13 U/L (4-34); AST 25 U/L (14-36); African American GFR (CKD) >90 (>60 ml/min/1.73 sqM); Albumin 2.4 g/dL (3.5-5.0); Albumin/Globulin Ratio 0.9; Alkaline Phosphatase 102 U/L (38-126); Anion Gap 7 mmol/L; Blood Urea Nitrogen 18 mg/dL (7-17); Calcium 8.3 mg/dL (8.4-10.2); Carbon Dioxide 28 mmol/L (22-30); Chloride 99 mmol/L (98-107); Globulin 2.8 g/dL; Glucose 168 mg/dL (74-99); Non-African American GFR(CKD) >90 (>60 ml/min/1.73 sqM); Potassium 5.1 mmol/L (3.5-5.1); Sodium 134 mmol/L (137-145); Total Bilirubin 0.2 mg/dL (0.2-1.3); Total Protein 5.2 g/dL (6.3-8.2)
[2023-06-22 07:37] LABS: Anisocytosis Slight; Basophils % (A) 1 %; Eosinophils # (A) 0.2 k/uL (0-0.7); Eosinophils % (A) 4 %; HCT 26.7 % (34.0-46.0); HGB 8.5 gm/dL (11.4-16.0); Hypochromasia Moderate; Lymphocytes # (A) 1.4 k/uL (1.0-4.8); Lymphocytes % (A) 32 %; MCH 28.3 pg (25.0-35.0); MCHC 31.7 g/dL (31.0-37.0); MCV 89.3 fL (80.0-100.0); Mean Platelet Volume 6.8; Monocytes # (A) 0.4 k/uL (0-1.0); Monocytes % (A) 9 %; Neutrophils # (A) 2.1 k/uL (1.3-7.7); Neutrophils % (A) 51 %; Platelet Count 494 k/uL (150-450); RBC 2.99 m/uL (3.80-5.40); RDW 16.3 % (11.5-15.5); WBC 4.2 k/uL (3.8-10.6)
[2023-06-22] MEDS: BUDESONIDE 0.5 MG/2 ML NEBU INHALATION SCH ×2 (08:14→21:17)
[2023-06-22] MEDS: IPRATROPIUM-ALBUTEROL 3 ML NEB INHALATION SCH ×2 (08:14→21:17)
[2023-06-22] MEDS: POTASSIUM BICARBONATE/CIT AC 20 MEQ TABLET.EFF PO SCH (09:14)
[2023-06-22] MEDS: ONDANSETRON 4 MG TAB PO SCH (09:15)
[2023-06-22] MEDS: SODIUM BICARBONATE TAB 650 MG TAB PO SCH ×3 (09:15→21:58)
[2023-06-22] MEDS: MAGNESIUM OXIDE 400 MG TAB PO SCH (09:15)
[2023-06-22] MEDS: ALPRAZolam 0.25 MG TAB PO SCH ×2 (09:15→21:59)
[2023-06-22] MEDS: ATORVASTATIN 20 MG TAB PO SCH (09:15)
[2023-06-22] MEDS: DULoxetine HCL 30 MG CAPSULE.DR PO SCH (09:15)
[2023-06-22] MEDS: FOLIC ACID 1 MG TAB PO SCH (09:15)
[2023-06-22] MEDS: SULFAMETHOX-TMP 800-160MG 1 EACH TAB PO SCH ×2 (09:15→21:59)
[2023-06-22] MEDS: SODIUM FERRIC GLUCONAT-SUCROSE 125 MG in SODIUM CHLORIDE 0.9% 100 ML IVPB SCH (10:23)
--- NOTE | 2023-06-22 10:55 | P.PN ---
Subjective Progress Note Date: 06/22/23 (Surgery) ASSESSMENT: 1. Gastrostomy infection PLAN: -Continue tube feeds. Continue regular diet as tolerated -Antibiotics per infectious disease -No surgical intervention planned Objective - Vital Signs Vital signs: Vital Signs Temp 98.3 F 06/22/23 08:00 Pulse 112 H 06/22/23 08:00 Resp 15 06/22/23 08:00 BP 93/61 06/22/23 08:00 Pulse Ox 98 06/22/23 08:00 FiO2 Intake & Output 06/21/23 06/22/23 06/22/23 18:59 06:59 18:59 Weight 33.6 kg 33.4 kg Other: Voiding Method Toilet # Voids 3 # Bowel Movements 1 - Labs CBC & Chem 7: 06/22/23 07:04 06/22/23 05:19 Labs: Abnormal Lab Results - Last 24 Hours (Table) 06/21/23 06/21/23 06/21/23 Range/Units 11:45 16:36 19:57 RBC (3.80-5.40) m/uL Hgb (11.4-16.0) gm/dL Hct (34.0-46.0) % RDW (11.5-15.5) % Plt Count (150-450) k/uL Sodium (137-145) mmol/L BUN (7-17) mg/dL Glucose (74-99) mg/dL POC Glucose (mg/dL) 177 H 136 H 166 H (70-110) mg/dL Calcium (8.4-10.2) mg/dL Total Protein (6.3-8.2) g/dL Albumin (3.5-5.0) g/dL 06/22/23 06/22/23 06/22/23 Range/Units 05:19 05:53 07:04 RBC 2.99 L (3.80-5.40) m/uL Hgb 8.5 L (11.4-16.0) gm/dL Hct 26.7 L (34.0-46.0) % RDW 16.3 H (11.5-15.5) % Plt Count 494 H (150-450) k/uL Sodium 134 L (137-145) mmol/L BUN 18 H (7-17) mg/dL Glucose 168 H (74-99) mg/dL POC Glucose (mg/dL) 199 H (70-110) mg/dL Calcium 8.3 L (8.4-10.2) mg/dL Total Protein 5.2 L (6.3-8.2) g/dL Albumin 2.4 L (3.5-5.0) g/dL
[2023-06-22 11:27] LABS: Glucose,Whole Blood 202 mg/dL (70-110)
[2023-06-22] MEDS: LEVOFLOXACIN 500 MG TAB PO SCH (12:13)
[2023-06-22] MEDS: SODIUM CHLORIDE 0.9% 1,000 ML IV SCH ×2 (13:05→22:00)
[2023-06-22 16:10] LABS: Glucose,Whole Blood 139 mg/dL (70-110)
--- NOTE | 2023-06-22 19:16 | PN ---
PROGRESS NOTE Type 1 diabetes mellitus. MMODL / IJN: [id number] /
[2023-06-22 20:32] LABS: Glucose,Whole Blood 170 mg/dL (70-110)
[2023-06-22] MEDS: MIRTAZAPINE 15 MG TAB PO SCH (21:59)
--- NOTE | 2023-06-22 22:53 | PN ---
PROGRESS NOTE SUBJECTIVE: A 53-year-old white female. We stopped all her blood pressure medicines yesterday. Continues on her PEG tube feedings. Hemoglobin is 8.5. OBJECTIVE: VITAL SIGNS: Temperature 98.3, pulse is 112 to 115, blood pressure is still 90s over 60s. CARDIOVASCULAR: S1, S2. LUNGS: Transmitted upper sounds. GI: Soft. HEMATOLOGY: Negative for Homans. PLAN: Continue on current medications. PEG tube infection, continue with oral PEG tube antibiotics. Her nausea and vomiting were fairly bad over the last 2 days. Hopefully, if she improves, she can go home in the next 24 hours or so. Prognosis is guarded. MMODL / IJN: [id number] /
[2023-06-23] MEDS: HYDROcodone/APAP 5-325MG 1 EACH TAB PO SCH ×3 (00:24→16:53)
[2023-06-23 06:21] LABS: Glucose,Whole Blood 213 mg/dL (70-110)
[2023-06-23] MEDS: METOCLOPRAMIDE 10 MG TAB PO SCH ×4 (06:36→21:53)
[2023-06-23] MEDS: PANTOPRAZOLE 40 MG TABLET PO SCH ×2 (06:36→16:53)
[2023-06-23] MEDS: INSULIN ASPART (NovoLOG) 100 UNIT/ML VIAL SQ SCH ×3 (06:36→17:16)
[2023-06-23] MEDS: IPRATROPIUM-ALBUTEROL 3 ML NEB INHALATION SCH ×2 (09:19→22:54)
[2023-06-23] MEDS: BUDESONIDE 0.5 MG/2 ML NEBU INHALATION SCH ×2 (09:19→22:54)
[2023-06-23] MEDS: POTASSIUM BICARBONATE/CIT AC 20 MEQ TABLET.EFF PO SCH (09:36)
[2023-06-23] MEDS: ALPRAZolam 0.25 MG TAB PO SCH ×2 (09:37→21:53)
[2023-06-23] MEDS: ATORVASTATIN 20 MG TAB PO SCH (09:37)
[2023-06-23] MEDS: MAGNESIUM OXIDE 400 MG TAB PO SCH (09:37)
[2023-06-23] MEDS: ONDANSETRON 4 MG TAB PO SCH (09:37)
[2023-06-23] MEDS: DULoxetine HCL 30 MG CAPSULE.DR PO SCH (09:37)
[2023-06-23] MEDS: SODIUM BICARBONATE TAB 650 MG TAB PO SCH ×3 (09:37→21:52)
[2023-06-23] MEDS: SULFAMETHOX-TMP 800-160MG 1 EACH TAB PO SCH ×2 (09:37→21:53)
[2023-06-23] MEDS: FOLIC ACID 1 MG TAB PO SCH (09:37)
[2023-06-23 09:54] LABS: ALT 13 U/L (8-44); AST 17 U/L (13-35); Albumin 2.5 g/dL (3.8-4.9); Albumin/Globulin Ratio 0.96 Ratio (1.60-3.17); Alkaline Phosphatase 98 U/L (41-126); BUN/Creat Ratio 25.71 Ratio (12.00-20.00); Calcium 8.7 mg/dL (8.7-10.3); Carbon Dioxide 28.5 mmol/L (21.6-31.8); Chloride 100 mmol/L (96-109); Globulin 2.6 g/dL (1.6-3.3); Glucose 200 mg/dL (70-110); Potassium 5.1 mmol/L (3.5-5.5); Sodium 135 mmol/L (135-145); Total Bilirubin <0.2 mg/dL (0.3-1.2); Total Protein 5.1 g/dL (6.2-8.2)
[2023-06-23 10:05] LABS: Basophils # (A) 0.06 X 10*3/uL (0.00-0.10); Eosinophils # (A) 0.16 X 10*3/uL (0.04-0.35); Eosinophils % (A) 2.8 %; HCT 27.2 % (37.2-46.3); HGB 8.4 g/dL (12.0-15.0); Lymphocytes # (A) 1.61 X 10*3/uL (0.90-5.00); Lymphocytes % (A) 27.8 %; MCH 27.6 pg (27.0-32.0); MCHC 30.9 g/dL (32.0-37.0); MCV 89.5 FL (80.0-97.0); Mean Platelet Volume 9.3 FL (9.5-12.2); Monocytes # (A) 0.69 X 10*3/uL (0.20-1.00); Monocytes % (A) 11.9 %; NRBC Per 100 WBC 0 X 10*3/uL (0.00-0.01); Neutrophils # (A) 3.26 X 10*3/uL (1.80-7.70); Neutrophils % (A) 56.2 %; Platelet Count 476 X 10*3/uL (140-440); RBC 3.04 X 10*6/uL (4.10-5.20); RDW 15.9 % (11.5-14.5)
[2023-06-23] MEDS: SODIUM FERRIC GLUCONAT-SUCROSE 125 MG in SODIUM CHLORIDE 0.9% 100 ML IVPB SCH (10:37)
--- NOTE | 2023-06-23 11:03 | P.PN ---
Subjective Progress Note Date: 06/23/23 Patient's PEG tube site remained stable. She'll continue receive local wound care. Objective - Vital Signs Vital signs: Vital Signs Temp 98.3 F 06/23/23 07:13 Pulse 114 H 06/23/23 09:23 Resp 19 06/23/23 07:13 BP 91/66 06/23/23 09:23 Pulse Ox 99 06/23/23 09:23 FiO2 Intake & Output 06/22/23 06/23/23 06/23/23 18:59 06:59 18:59 Intake Total 468 468 Output Total 200 Balance 268 468 Weight 32.6 kg Intake: Tube Feeding 468 468 Output: Emesis 200 Other: Voiding Method Toilet - Labs CBC & Chem 7: 06/23/23 06:33 06/23/23 06:33 Labs: Abnormal Lab Results - Last 24 Hours (Table) 06/22/23 06/22/23 06/22/23 Range/Units 11:06 16:06 20:30 RBC (4.10-5.20) X 10*6/uL Hgb (12.0-15.0) g/dL Hct (37.2-46.3) % MCHC (32.0-37.0) g/dL RDW (11.5-14.5) % Plt Count (140-440) X 10*3/uL MPV (9.5-12.2) FL BUN/Creatinine Ratio (12.00-20.00) Ratio Glucose (70-110) mg/dL POC Glucose (mg/dL) 202 H 139 H 170 H (70-110) mg/dL Total Bilirubin (0.3-1.2) mg/dL Total Protein (6.2-8.2) g/dL Albumin (3.8-4.9) g/dL Albumin/Globulin Ratio (1.60-3.17) Ratio 06/23/23 06/23/23 06/23/23 Range/Units 06:20 06:33 06:33 RBC 3.04 L (4.10-5.20) X 10*6/uL Hgb 8.4 L (12.0-15.0) g/dL Hct 27.2 L (37.2-46.3) % MCHC 30.9 L (32.0-37.0) g/dL RDW 15.9 H (11.5-14.5) % Plt Count 476 H (140-440) X 10*3/uL MPV 9.3 L (9.5-12.2) FL BUN/Creatinine Ratio 25.71 H (12.00-20.00) Ratio Glucose 200 H (70-110) mg/dL POC Glucose (mg/dL) 213 H (70-110) mg/dL Total Bilirubin <0.2 L (0.3-1.2) mg/dL Total Protein 5.1 L (6.2-8.2) g/dL Albumin 2.5 L (3.8-4.9) g/dL Albumin/Globulin Ratio 0.96 L (1.60-3.17) Ratio
[2023-06-23 11:21] LABS: Glucose,Whole Blood 172 mg/dL (70-110)
[2023-06-23] MEDS: LEVOFLOXACIN 500 MG TAB PO SCH (12:18)
[2023-06-23] MEDS: SODIUM CHLORIDE 0.9% 1,000 ML IV SCH (16:52)
[2023-06-23 17:09] LABS: Glucose,Whole Blood 186 mg/dL (70-110)
--- NOTE | 2023-06-23 18:03 | P.PN ---
Subjective Progress Note Date: 06/22/23 Principal diagnosis: Reason for follow-up is PEG tube site culture positive with MRSA and ESBL Klebsiella Patient is a 53-year-old female with a past medical history Si gnificant for diabetes mellitus musculoskeletal disorder did have a history of chronic nausea vomiting gastroparesis patient recently was evaluated [facility] and the patient did have placement of a gastrojejunostomy tube patient presented to [facility] ER on 06/15/2023 with concern for some purulent drainage from the gastrojejunostomy tube site, CT abdominal pelvis did not show any abscess culture subsequently grew MRSA and ESBL Klebsiella prompting this infectious disease consultation On today's evaluation that is 06/22/2023 the patient remains to be afebrile the patient is breathing comfortably on room air without need for supplemental oxygen, the patient denies any chest pain, the patient denies chest pain shortness of breath or cough, patient denies having nausea no vomiting the patient abdominal pain or any drainage around the PEG tube site Patient white count is 4.2, creatinine 0.56 Objective - Vital Signs Vital signs: Vital Signs Temp 98 F 06/22/23 00:46 Pulse 110 H 06/22/23 00:46 Resp 22 06/22/23 00:46 BP 94/60 06/22/23 00:46 Pulse Ox 95 06/22/23 00:46 FiO2 Intake & Output 06/21/23 06/22/23 06/22/23 18:59 06:59 18:59 Weight 33.6 kg 33.4 kg Other: Voiding Method Toilet # Voids 3 # Bowel Movements 1 - Exam GENERAL DESCRIPTION: middle-age female lying in bed in no distress RESPIRATORY SYSTEM: Unlabored breathing , decreased breath sounds at bases HEART: S1 S2 regular rate and rhythm , ABDOMEN: Soft , no tenderness PEG tube site with no redness or drainage EXTREMITIES: No edema feet - Labs CBC & Chem 7: 06/23/23 06:33 06/23/23 06:33 Labs: Abnormal Lab Results - Last 24 Hours (Table) 06/21/23 06/21/23 06/21/23 Range/Units 11:45 16:36 19:57 RBC (3.80-5.40) m/uL Hgb (11.4-16.0) gm/dL Hct (34.0-46.0) % RDW (11.5-15.5) % Plt Count (150-450) k/uL Sodium (137-145) mmol/L BUN (7-17) mg/dL Glucose (74-99) mg/dL POC Glucose (mg/dL) 177 H 136 H 166 H (70-110) mg/dL Calcium (8.4-10.2) mg/dL Total Protein (6.3-8.2) g/dL Albumin (3.5-5.0) g/dL 06/22/23 06/22/23 06/22/23 Range/Units 05:19 05:53 07:04 RBC 2.99 L (3.80-5.40) m/uL Hgb 8.5 L (11.4-16.0) gm/dL Hct 26.7 L (34.0-46.0) % RDW 16.3 H (11.5-15.5) % Plt Count 494 H (150-450) k/uL Sodium 134 L (137-145) mmol/L BUN 18 H (7-17) mg/dL Glucose 168 H (74-99) mg/dL POC Glucose (mg/dL) 199 H (70-110) mg/dL Calcium 8.3 L (8.4-10.2) mg/dL Total Protein 5.2 L (6.3-8.2) g/dL Albumin 2.4 L (3.5-5.0) g/dL Assessment and Plan (1) ESBL (extended spectrum beta-lactamase) producing bacteria infection Current Visit: Yes Status: Acute Code(s): A49.9 - BACTERIAL INFECTION, UNSPECIFIED; Z16.12 - EXTENDED SPECTRUM BETA LACTAMASE (ESBL) RESISTANCE SNOMED Code(s): 127365242 (2) Gastrostomy infection Current Visit: Yes Status: Acute Code(s): K94.22 - GASTROSTOMY INFECTION SNOMED Code(s): 226710195 (3) MRSA (methicillin resistant staph aureus) culture positive Current Visit: No Status: Acute Code(s): Z22.322 - CARRIER OR SUSPECTED CARRIER OF METHICILLIN RESIS STAPH SNOMED Code(s): 606659269 Plan: 1patient with a positive culture from the PEG tube site growing ESBL Klebsiella and presumptive MRSA in this patient who recently did have a PEG tube placement for chronic nausea gastroparesis CT abdominal pannus on admission did not show any evidence of intra-abdominal abscess or abdominal wall abscess with a question of mild cellulitis versus possible colonization around the PEG tube site as the patient not running a fever she did have a elevated white count on admission however white count is subsequent normalized without getting any treatment for ESBL or MRSA 2patient did have some clinical improvement and we will continue patient on Bactrim DS and Levaquin down the PEG tube and monitor clinical course closely Dictation was produced using [employer] dictation software. please excuse any grammatical, word or spelling errors.
--- NOTE | 2023-06-23 18:04 | P.PN ---
Subjective Progress Note Date: 06/23/23 Principal diagnosis: Reason for follow-up is PEG tube site culture positive with MRSA and ESBL Klebsiella Patient is a 53-year-old female with a past medical history Si gnificant for diabetes mellitus musculoskeletal disorder did have a history of chronic nausea vomiting gastroparesis patient recently was evaluated [facility] and the patient did have placement of a gastrojejunostomy tube patient presented to [facility] ER on 06/15/2023 with concern for some purulent drainage from the gastrojejunostomy tube site, CT abdominal pelvis did not show any abscess culture subsequently grew MRSA and ESBL Klebsiella prompting this infectious disease consultation On today's evaluation that is 06/23/2023 the patient continues to be afebrile, the patient is breathing comfortably on room air, the patient denies having any chest pain the patient denies any chest pain shortness of breath or cough, the patient denies having any abdominal pain or any drainage around the PEG tube site however seems to have problem with the vomiting Patient white count is 5.80, creatinine 0.7 Objective - Vital Signs Vital signs: Vital Signs Temp 98.8 F 06/23/23 13:58 Pulse 116 H 06/23/23 13:58 Resp 18 06/23/23 13:58 BP 92/62 06/23/23 15:00 Pulse Ox 98 06/23/23 13:58 FiO2 Intake & Output 06/22/23 06/23/23 06/23/23 18:59 06:59 18:59 Intake Total 468 468 Output Total 200 Balance 268 468 Weight 32.6 kg Intake: Tube Feeding 468 468 Output: Emesis 200 Other: Voiding Method Toilet - Exam GENERAL DESCRIPTION: middle-age female lying in bed in no distress RESPIRATORY SYSTEM: Unlabored breathing , decreased breath sounds at bases HEART: S1 S2 regular rate and rhythm , ABDOMEN: Soft , no tenderness PEG tube site with no redness or drainage EXTREMITIES: No edema feet - Labs CBC & Chem 7: 06/23/23 06:33 06/23/23 06:33 Labs: Abnormal Lab Results - Last 24 Hours (Table) 06/22/23 06/23/23 06/23/23 Range/Units 20:30 06:20 06:33 RBC 3.04 L (4.10-5.20) X 10*6/uL Hgb 8.4 L (12.0-15.0) g/dL Hct 27.2 L (37.2-46.3) % MCHC 30.9 L (32.0-37.0) g/dL RDW 15.9 H (11.5-14.5) % Plt Count 476 H (140-440) X 10*3/uL MPV 9.3 L (9.5-12.2) FL BUN/Creatinine Ratio (12.00-20.00) Ratio Glucose (70-110) mg/dL POC Glucose (mg/dL) 170 H 213 H (70-110) mg/dL Total Bilirubin (0.3-1.2) mg/dL Total Protein (6.2-8.2) g/dL Albumin (3.8-4.9) g/dL Albumin/Globulin Ratio (1.60-3.17) Ratio 06/23/23 06/23/23 06/23/23 Range/Units 06:33 11:20 17:08 RBC (4.10-5.20) X 10*6/uL Hgb (12.0-15.0) g/dL Hct (37.2-46.3) % MCHC (32.0-37.0) g/dL RDW (11.5-14.5) % Plt Count (140-440) X 10*3/uL MPV (9.5-12.2) FL BUN/Creatinine Ratio 25.71 H (12.00-20.00) Ratio Glucose 200 H (70-110) mg/dL POC Glucose (mg/dL) 172 H 186 H (70-110) mg/dL Total Bilirubin <0.2 L (0.3-1.2) mg/dL Total Protein 5.1 L (6.2-8.2) g/dL Albumin 2.5 L (3.8-4.9) g/dL Albumin/Globulin Ratio 0.96 L (1.60-3.17) Ratio Assessment and Plan (1) ESBL (extended spectrum beta-lactamase) producing bacteria infection Current Visit: Yes Status: Acute Code(s): A49.9 - BACTERIAL INFECTION, UNSPECIFIED; Z16.12 - EXTENDED SPECTRUM BETA LACTAMASE (ESBL) RESISTANCE SNOMED Code(s): 982589248 (2) Gastrostomy infection Current Visit: Yes Status: Acute Code(s): K94.22 - GASTROSTOMY INFECTION SNOMED Code(s): 478000637 (3) MRSA (methicillin resistant staph aureus) culture positive Current Visit: No Status: Acute Code(s): Z22.322 - CARRIER OR SUSPECTED CARRIER OF METHICILLIN RESIS STAPH SNOMED Code(s): 244021309 Plan: 1patient with a positive culture from the PEG tube site growing ESBL Klebsiella and presumptive MRSA in this patient who recently did have a PEG tube placement for chronic nausea gastroparesis CT abdominal pannus on admission did not show any evidence of intra-abdominal abscess or abdominal wall abscess with a question of mild cellulitis versus possible colonization around the PEG tube site as the patient not running a fever she did have a elevated white count on admission however white count is subsequent normalized without getting any treatment for ESBL or MRSA 2patient seem to have developed diarrhea questionably associated with her antibiotic down the PEG tube we will go ahead and discontinue Bactrim DS and Levaquin and monitor the patient closely off antibiotic therapy Dictation was produced using [employer] dictation software. please excuse any grammatical, word or spelling errors.
[2023-06-23 20:32] LABS: Glucose,Whole Blood 102 mg/dL (70-110)
[2023-06-23] MEDS: MIRTAZAPINE 15 MG TAB PO SCH (21:53)
[2023-06-24] MEDS: SODIUM CHLORIDE 0.9% 1,000 ML IV SCH ×3 (00:22→18:49)
[2023-06-24] MEDS: HYDROcodone/APAP 5-325MG 1 EACH TAB PO SCH ×3 (00:38→17:31)
[2023-06-24] MEDS: PANTOPRAZOLE 40 MG TABLET PO SCH ×2 (05:54→17:31)
[2023-06-24] MEDS: METOCLOPRAMIDE 10 MG TAB PO SCH ×4 (05:54→21:09)
[2023-06-24] MEDS: INSULIN ASPART (NovoLOG) 100 UNIT/ML VIAL SQ SCH ×3 (05:54→17:31)
[2023-06-24 06:02] LABS: Glucose,Whole Blood 185 mg/dL (70-110)
[2023-06-24] MEDS: SODIUM BICARBONATE TAB 650 MG TAB PO SCH ×3 (08:32→21:08)
[2023-06-24] MEDS: SULFAMETHOX-TMP 800-160MG 1 EACH TAB PO SCH ×2 (08:32→21:08)
[2023-06-24] MEDS: ONDANSETRON 4 MG TAB PO SCH (08:32)
[2023-06-24] MEDS: MAGNESIUM OXIDE 400 MG TAB PO SCH (08:32)
[2023-06-24] MEDS: DULoxetine HCL 30 MG CAPSULE.DR PO SCH (08:32)
[2023-06-24] MEDS: FOLIC ACID 1 MG TAB PO SCH (08:33)
[2023-06-24] MEDS: SCOPOLAMINE 1 MG/72 HR PATCH TRANSDERM SCH (08:33)
[2023-06-24] MEDS: POTASSIUM BICARBONATE/CIT AC 20 MEQ TABLET.EFF PO SCH (08:33)
[2023-06-24] MEDS: ATORVASTATIN 20 MG TAB PO SCH (08:33)
[2023-06-24] MEDS: ALPRAZolam 0.25 MG TAB PO SCH ×2 (08:33→21:09)
[2023-06-24] MEDS: SODIUM FERRIC GLUCONAT-SUCROSE 125 MG in SODIUM CHLORIDE 0.9% 100 ML IVPB SCH (08:34)
--- NOTE | 2023-06-24 08:50 | PN ---
PROGRESS NOTE Heart rate is in mid 100s, 100 to 118, temperature 97 to 98. Blood pressure is low at 90s to 80s over 70s to 80s. she is on PEG tube feedings. She is having nausea, vomiting persistent. Sugars in the mid 100s. Creatinine is 0.52. Temperature 97.9. ASSESSMENT: Dehydration, hypotension. We will cut back on blood pressure medications. Continue current medicines for gastroparesis, nausea, vomiting. Possible discharge home soon if she feels better. She was started for PEG tube infection on oral antibiotics through the PEG tube. Prognosis guarded. Please see further orders p.r.n. When she starts doing better with her eating and PEG tube infection and tube feedings stabilizes, we will get her home. Hold blood pressure medications due to hypotension. MMODL / IJN: [id number] /
[2023-06-24] MEDS: IPRATROPIUM-ALBUTEROL 3 ML NEB INHALATION SCH ×2 (09:21→21:48)
[2023-06-24] MEDS: BUDESONIDE 0.5 MG/2 ML NEBU INHALATION SCH ×2 (09:21→21:48)
[2023-06-24 11:43] LABS: Glucose,Whole Blood 175 mg/dL (70-110)
[2023-06-24] MEDS: LEVOFLOXACIN 500 MG TAB PO SCH (12:58)
--- NOTE | 2023-06-24 13:33 | P.PN ---
Subjective Progress Note Date: 06/24/23 CHIEF COMPLAINT: Gastrostomy infection HISTORY OF PRESENT ILLNESS: Patient reports she is feeling better today. She is currently off of the antibiotics. Diarrhea has improved. Tube feeds are tolerated and currently at 39 mL per hour. Afebrile. Tachycardic. Labs pending PHYSICAL EXAM: VITAL SIGNS: Reviewed. GENERAL: Well-developed in no acute distress. ABDOMEN: Soft. Nondistended. Nontender. PEG tube site with no erythema minimal cream colored drainage noted. ASSESSMENT: 1. Gastrostomy infection PLAN: -Continue tube feeds. Continue regular diet as tolerated -Antibiotics per infectious disease -No surgical intervention planned Physician Inside Meter Tester note has been reviewed by physician. Signing provider agrees with the documented findings, assessment, and plan of care. Objective - Vital Signs Vital signs: Vital Signs Temp 98.5 F 06/24/23 08:00 Pulse 119 H 06/24/23 08:00 Resp 18 06/24/23 02:00 BP 94/62 06/24/23 08:00 Pulse Ox 96 06/24/23 08:00 FiO2 Intake & Output 06/23/23 06/24/23 06/24/23 18:59 06:59 18:59 Intake Total 588 600 Balance 588 600 Weight 32.6 kg Intake: Oral 120 Tube Feeding 468 600 Other: Voiding Method Toilet # Voids 3 # Bowel Movements 1 - Labs CBC & Chem 7: 06/23/23 06:33 06/23/23 06:33 Labs: Abnormal Lab Results - Last 24 Hours (Table) 06/23/23 06/24/23 06/24/23 Range/Units 17:08 05:30 11:38 POC Glucose (mg/dL) 186 H 185 H 175 H (70-110) mg/dL
[2023-06-24 15:08] LABS: Basophils # (A) 0.07 X 10*3/uL (0.00-0.10); Basophils % (A) 1.3 %; Eosinophils # (A) 0.19 X 10*3/uL (0.04-0.35); Eosinophils % (A) 3.4 %; HCT 26.3 % (37.2-46.3); HGB 8.1 g/dL (12.0-15.0); Lymphocytes # (A) 1.41 X 10*3/uL (0.90-5.00); Lymphocytes % (A) 25.5 %; MCH 28.2 pg (27.0-32.0); MCHC 30.8 g/dL (32.0-37.0); MCV 91.6 FL (80.0-97.0); Mean Platelet Volume 9.6 FL (9.5-12.2); Monocytes # (A) 1.06 X 10*3/uL (0.20-1.00); Monocytes % (A) 19.2 %; NRBC Per 100 WBC 0 X 10*3/uL (0.00-0.01); Neutrophils # (A) 2.78 X 10*3/uL (1.80-7.70); Neutrophils % (A) 50.2 %; Platelet Count 460 X 10*3/uL (140-440); RBC 2.87 X 10*6/uL (4.10-5.20); RDW 16.1 % (11.5-14.5); WBC 5.53 X 10*3/uL (4.50-10.00)
[2023-06-24 15:23] LABS: ALT 14 U/L (8-44); AST 17 U/L (13-35); Albumin 2.6 g/dL (3.8-4.9); Albumin/Globulin Ratio 1.04 Ratio (1.60-3.17); Alkaline Phosphatase 95 U/L (41-126); BUN/Creat Ratio 32.29 Ratio (12.00-20.00); Blood Urea Nitrogen 22.6 mg/dL (9.0-27.0); Calcium 8.7 mg/dL (8.7-10.3); Carbon Dioxide 29.3 mmol/L (21.6-31.8); Chloride 99 mmol/L (96-109); Globulin 2.5 g/dL (1.6-3.3); Glucose 138 mg/dL (70-110); Potassium 4.9 mmol/L (3.5-5.5); Sodium 136 mmol/L (135-145); Total Bilirubin <0.2 mg/dL (0.3-1.2); Total Protein 5.1 g/dL (6.2-8.2)
[2023-06-24 17:15] LABS: Glucose,Whole Blood 185 mg/dL (70-110)
[2023-06-24 20:58] LABS: Glucose,Whole Blood 133 mg/dL (70-110)
[2023-06-24] MEDS: MIRTAZAPINE 15 MG TAB PO SCH (21:08)
[2023-06-25] MEDS: HYDROcodone/APAP 5-325MG 1 EACH TAB PO SCH ×4 (00:54→23:34)
[2023-06-25 05:52] LABS: Glucose,Whole Blood 200 mg/dL (70-110)
[2023-06-25] MEDS: METOCLOPRAMIDE 10 MG TAB PO SCH ×4 (06:14→19:51)
[2023-06-25] MEDS: PANTOPRAZOLE 40 MG TABLET PO SCH ×2 (06:14→17:36)
[2023-06-25] MEDS: INSULIN ASPART (NovoLOG) 100 UNIT/ML VIAL SQ SCH ×3 (06:14→17:36)
--- NOTE | 2023-06-25 08:56 | PN ---
PROGRESS NOTE SUBJECTIVE: Lesa Patterson still has difficulty with vomiting, but it is improving. Continue current treatments. Wait for GI to see her or antibiotics have been weaned off scheduled through her PEG tube. OBJECTIVE: VITAL SIGNS: Pulse is 115, temperature 98.4, blood pressure 70s over 50s to 40s up to 90s, O2 saturation 97% on room air. CARDIOVASCULAR: S1, S2. LUNGS: HEMATOLOGY: Negative for Homans. She appears to be malnourished. PLAN: Continue with tube feedings. Stop all types of hypertension medications. Rehydrate. Check electrolytes, potassium and magnesium. Prognosis guarded. MMODL / IJN: [id number] /
[2023-06-25] MEDS: MAGNESIUM OXIDE 400 MG TAB PO SCH (09:14)
[2023-06-25] MEDS: SODIUM FERRIC GLUCONAT-SUCROSE 125 MG in SODIUM CHLORIDE 0.9% 100 ML IVPB SCH (09:14)
[2023-06-25] MEDS: FOLIC ACID 1 MG TAB PO SCH (09:14)
[2023-06-25] MEDS: ALPRAZolam 0.25 MG TAB PO SCH ×2 (09:14→19:51)
[2023-06-25] MEDS: ATORVASTATIN 20 MG TAB PO SCH (09:14)
[2023-06-25] MEDS: ONDANSETRON 4 MG TAB PO SCH (09:14)
[2023-06-25] MEDS: SODIUM BICARBONATE TAB 650 MG TAB PO SCH ×3 (09:14→19:51)
[2023-06-25] MEDS: DULoxetine HCL 30 MG CAPSULE.DR PO SCH (09:15)
[2023-06-25] MEDS: SULFAMETHOX-TMP 800-160MG 1 EACH TAB PO SCH (09:15)
[2023-06-25] MEDS: POTASSIUM BICARBONATE/CIT AC 20 MEQ TABLET.EFF PO SCH (09:17)
[2023-06-25] MEDS: IPRATROPIUM-ALBUTEROL 3 ML NEB INHALATION SCH ×2 (09:41→21:16)
[2023-06-25] MEDS: BUDESONIDE 0.5 MG/2 ML NEBU INHALATION SCH ×2 (09:41→21:16)
--- NOTE | 2023-06-25 11:11 | P.PN ---
Subjective Progress Note Date: 06/25/23 At today's visit patient is resting comfortably in bed. Patient is reporting improvement in symptoms. Tolerating tube feedings. Objective - Vital Signs Vital signs: Vital Signs Temp 99.1 F 06/25/23 08:00 Pulse 115 H 06/25/23 08:00 Resp 16 06/25/23 08:00 BP 99/69 06/25/23 08:00 Pulse Ox 97 06/25/23 08:00 FiO2 Intake & Output 06/24/23 06/25/23 06/25/23 18:59 06:59 18:59 Intake Total 400 Balance 400 Weight 33 kg Intake: Tube Feeding 400 Other: Voiding Method Toilet Toilet # Voids 2 # Bowel Movements 2 - Constitutional General appearance: Present: no acute distress, thin - EENT Eyes: Present: anicteric sclerae, EOMI ENT: Present: hearing grossly normal - Respiratory Details: breathing is even and unlabored - Cardiovascular Details: skin warm and dry - Integumentary Integumentary: Absent: cyanotic - Neurologic Neurologic: Present: CNII-XII intact - Musculoskeletal Musculoskeletal: Present: strength equal bilaterally - Psychiatric Psychiatric: Present: A&O x's 3 - Labs CBC & Chem 7: 06/24/23 07:34 06/24/23 07:34 Labs: Abnormal Lab Results - Last 24 Hours (Table) 06/24/23 06/24/23 06/24/23 Range/Units 07:34 07:34 11:38 RBC 2.87 L (4.10-5.20) X 10*6/uL Hgb 8.1 L (12.0-15.0) g/dL Hct 26.3 L (37.2-46.3) % MCHC 30.8 L (32.0-37.0) g/dL RDW 16.1 H (11.5-14.5) % Plt Count 460 H (140-440) X 10*3/uL Monocytes # 1.06 H (0.20-1.00) X 10*3/uL BUN/Creatinine Ratio 32.29 H (12.00-20.00) Ratio Glucose 138 H (70-110) mg/dL POC Glucose (mg/dL) 175 H (70-110) mg/dL Total Bilirubin <0.2 L (0.3-1.2) mg/dL Total Protein 5.1 L (6.2-8.2) g/dL Albumin 2.6 L (3.8-4.9) g/dL Albumin/Globulin Ratio 1.04 L (1.60-3.17) Ratio 06/24/23 06/24/23 06/25/23 Range/Units 17:13 20:56 05:50 RBC (4.10-5.20) X 10*6/uL Hgb (12.0-15.0) g/dL Hct (37.2-46.3) % MCHC (32.0-37.0) g/dL RDW (11.5-14.5) % Plt Count (140-440) X 10*3/uL Monocytes # (0.20-1.00) X 10*3/uL BUN/Creatinine Ratio (12.00-20.00) Ratio Glucose (70-110) mg/dL POC Glucose (mg/dL) 185 H 133 H 200 H (70-110) mg/dL Total Bilirubin (0.3-1.2) mg/dL Total Protein (6.2-8.2) g/dL Albumin (3.8-4.9) g/dL Albumin/Globulin Ratio (1.60-3.17) Ratio Assessment and Plan (1) Chronic abdominal pain Current Visit: Yes Status: Acute Priority: Medium Code(s): R10.9 - UNSPECIFIED ABDOMINAL PAIN; G89.29 - OTHER CHRONIC PAIN SNOMED Code(s): 270636351 (2) Esophagitis Current Visit: Yes Status: Acute Priority: High Code(s): K20.90 - ESOPHAGITIS, UNSPECIFIED WITHOUT BLEEDING SNOMED Code(s): 46921232 (3) Anemia Current Visit: Yes Status: Acute Priority: Medium Code(s): D64.9 - ANEMIA, UNSPECIFIED SNOMED Code(s): 430875562 Plan: Esophagitis: -Hx of chronic abdominal pain and diabetic gastroparesis. Presented with complaints of diffuse abdominal pain and progressing nausea vomiting diarrhea over the last couple days. She follows with GI at [facility] and had PEG tube placed. Awaiting placement of gastric stimulator. Upon admission CT abdomen pelvis revealed distal esophageal circumferential wall thickening up to 8 mm compatible with esophagitis. PEG tube in appropriate position. No additional evidence for acute intra-abdominal processes. There us also concern for gastrostomy infection. Continues on abx. ID and general surgery following Anemia/Thrombocytosis: -CBC reviewed, hemoglobin 8.8, MCV 88. Hemoglobin was 11.2 on admission. Denies blood in stool and melena. Upon trending labs, anemia was noted early last month. -Platelets noted at 1075. Plts much improved at 460 today. Denies any history of blood disorders. Upon trending labs, no noted history of thrombocytosis. LFTs and bilirubin normal. Amylase and lipase normal. -Anemia workup consistent with KARLA, parenteral iron ordered. No vitamin B12 or folate deficiency noted -Denies blood in stool and melena. Underwent endoscopic evaluation with GI at a couple months ago. Recommend close oupt GI f/u -Anemia and thrombocytosis likely reactive in nature, however with significant GI history, would recommend GI f/u for possible repeat endoscopy. Would expect counts to improve to baseline as patient recovers -As thrombocytosis has improved no MPN workup warranted at this time Pt updated on findings and POC
[2023-06-25 11:42] LABS: Glucose,Whole Blood 179 mg/dL (70-110)
[2023-06-25] MEDS: LEVOFLOXACIN 500 MG TAB PO SCH (12:04)
--- NOTE | 2023-06-25 14:52 | P.PN ---
Subjective Progress Note Date: 06/25/23 CHIEF COMPLAINT: Gastrostomy infection HISTORY OF PRESENT ILLNESS: Patient reports she is feeling better today. Diarrhea has improved. Tube feeds are tolerated and currently at 39 mL per hour. Afebrile. Tachycardic. Labs from yesterday WBC 5.5 Hgb 8.1 plt 460 patient receiving IV iron PHYSICAL EXAM: VITAL SIGNS: Reviewed. GENERAL: Well-developed in no acute distress. ABDOMEN: Soft. Nondistended. Nontender. PEG tube site with no erythema minimal cream colored drainage noted. ASSESSMENT: 1. Gastrostomy infection PLAN: -Continue tube feeds. Continue regular diet as tolerated -Antibiotics per infectious disease -No surgical intervention planned -Patient can be discharged from surgical standpoint when medically stable Physician Lab Scientist note has been reviewed by physician. Signing provider agrees with the documented findings, assessment, and plan of care. Objective - Vital Signs Vital signs: Vital Signs Temp 99.1 F 06/25/23 08:00 Pulse 115 H 06/25/23 08:00 Resp 16 06/25/23 08:00 BP 99/69 06/25/23 08:00 Pulse Ox 97 06/25/23 08:00 FiO2 Intake & Output 06/24/23 06/25/23 06/25/23 18:59 06:59 18:59 Intake Total 400 Balance 400 Weight 33 kg Intake: Tube Feeding 400 Other: Voiding Method Toilet Toilet # Voids 2 # Bowel Movements 2 - Labs CBC & Chem 7: 06/24/23 07:34 06/24/23 07:34 Labs: Abnormal Lab Results - Last 24 Hours (Table) 06/24/23 06/24/23 06/24/23 Range/Units 07:34 07:34 17:13 RBC 2.87 L (4.10-5.20) X 10*6/uL Hgb 8.1 L (12.0-15.0) g/dL Hct 26.3 L (37.2-46.3) % MCHC 30.8 L (32.0-37.0) g/dL RDW 16.1 H (11.5-14.5) % Plt Count 460 H (140-440) X 10*3/uL Monocytes # 1.06 H (0.20-1.00) X 10*3/uL BUN/Creatinine Ratio 32.29 H (12.00-20.00) Ratio Glucose 138 H (70-110) mg/dL POC Glucose (mg/dL) 185 H (70-110) mg/dL Total Bilirubin <0.2 L (0.3-1.2) mg/dL Total Protein 5.1 L (6.2-8.2) g/dL Albumin 2.6 L (3.8-4.9) g/dL Albumin/Globulin Ratio 1.04 L (1.60-3.17) Ratio 06/24/23 06/25/23 06/25/23 Range/Units 20:56 05:50 11:40 RBC (4.10-5.20) X 10*6/uL Hgb (12.0-15.0) g/dL Hct (37.2-46.3) % MCHC (32.0-37.0) g/dL RDW (11.5-14.5) % Plt Count (140-440) X 10*3/uL Monocytes # (0.20-1.00) X 10*3/uL BUN/Creatinine Ratio (12.00-20.00) Ratio Glucose (70-110) mg/dL POC Glucose (mg/dL) 133 H 200 H 179 H (70-110) mg/dL Total Bilirubin (0.3-1.2) mg/dL Total Protein (6.2-8.2) g/dL Albumin (3.8-4.9) g/dL Albumin/Globulin Ratio (1.60-3.17) Ratio
[2023-06-25 15:54] VITALS: BMI 14.6
[2023-06-25 16:56] LABS: Glucose,Whole Blood 161 mg/dL (70-110)
--- NOTE | 2023-06-25 18:22 | P.PN ---
Subjective Progress Note Date: 06/24/23 Principal diagnosis: Reason for follow-up is PEG tube site culture positive with MRSA and ESBL Klebsiella Patient is a 53-year-old female with a past medical history Si gnificant for diabetes mellitus musculoskeletal disorder did have a history of chronic nausea vomiting gastroparesis patient recently was evaluated [facility] and the patient did have placement of a gastrojejunostomy tube patient presented to [facility] ER on 06/15/2023 with concern for some purulent drainage from the gastrojejunostomy tube site, CT abdominal pelvis did not show any abscess culture subsequently grew MRSA and ESBL Klebsiella prompting this infectious disease consultation On today's evaluation that is 06/24/2023 the patient remains to be afebrile, the patient is breathing comfortably on room air, the patient denies having any chest pain the patient denies any chest pain shortness of breath or cough, the patient denies having any abdominal pain or any drainage around the PEG tube site and no further vomiting has been reported Patient white count is 5.53, creatinine 0.7 Objective - Vital Signs Vital signs: Vital Signs Temp 98.5 F 06/24/23 08:00 Pulse 119 H 06/24/23 08:00 Resp 18 06/24/23 02:00 BP 94/62 06/24/23 08:00 Pulse Ox 96 06/24/23 08:00 FiO2 Intake & Output 06/23/23 06/24/23 06/24/23 18:59 06:59 18:59 Intake Total 588 600 Balance 588 600 Weight 32.6 kg Intake: Oral 120 Tube Feeding 468 600 Other: Voiding Method Toilet # Voids 3 # Bowel Movements 1 - Exam GENERAL DESCRIPTION: middle-age female lying in bed in no distress RESPIRATORY SYSTEM: Unlabored breathing , decreased breath sounds at bases HEART: S1 S2 regular rate and rhythm , ABDOMEN: Soft , no tenderness PEG tube site with no redness or drainage EXTREMITIES: No edema feet - Labs CBC & Chem 7: 06/24/23 07:34 06/24/23 07:34 Labs: Abnormal Lab Results - Last 24 Hours (Table) 06/23/23 06/24/23 06/24/23 Range/Units 17:08 05:30 11:38 POC Glucose (mg/dL) 186 H 185 H 175 H (70-110) mg/dL Assessment and Plan (1) ESBL (extended spectrum beta-lactamase) producing bacteria infection Current Visit: Yes Status: Acute Code(s): A49.9 - BACTERIAL INFECTION, UNSPECIFIED; Z16.12 - EXTENDED SPECTRUM BETA LACTAMASE (ESBL) RESISTANCE SNOMED Code(s): 365318031 (2) Gastrostomy infection Current Visit: Yes Status: Acute Code(s): K94.22 - GASTROSTOMY INFECTION SNOMED Code(s): 868283414 (3) MRSA (methicillin resistant staph aureus) culture positive Current Visit: No Status: Acute Code(s): Z22.322 - CARRIER OR SUSPECTED CARRIER OF METHICILLIN RESIS STAPH SNOMED Code(s): 336143937 Plan: 1patient with a positive culture from the PEG tube site growing ESBL Klebsiella and presumptive MRSA in this patient who recently did have a PEG tube placement for chronic nausea gastroparesis CT abdominal pannus on admission did not show any evidence of intra-abdominal abscess or abdominal wall abscess with a question of mild cellulitis versus possible colonization around the PEG tube site as the patient not running a fever she did have a elevated white count on admission however white count is subsequent normalized without getting any treatment for ESBL or MRSA 2patient Bactrim DS and Levaquin was discontinued because of her vomiting patient seems to be doing well no further vomiting will monitor the patient closely off antibiotics Dictation was produced using [employer] dictation software. please excuse any grammatical, word or spelling errors. Time with Patient: Less than 30
--- NOTE | 2023-06-25 18:23 | P.PN ---
Subjective Progress Note Date: 06/25/23 Principal diagnosis: Reason for follow-up is PEG tube site culture positive with MRSA and ESBL Klebsiella Patient is a 53-year-old female with a past medical history Si gnificant for diabetes mellitus musculoskeletal disorder did have a history of chronic nausea vomiting gastroparesis patient recently was evaluated [facility] and the patient did have placement of a gastrojejunostomy tube patient presented to [facility] ER on 06/15/2023 with concern for some purulent drainage from the gastrojejunostomy tube site, CT abdominal pelvis did not show any abscess culture subsequently grew MRSA and ESBL Klebsiella prompting this infectious disease consultation On today's evaluation that is 06/25/2023 the patient denies any fever or any chills the patient is breathing comfortably on room air, the patient denies having any chest pain the patient denies any chest pain shortness of breath or cough, the patient denies having any abdominal pain or any drainage around the PEG tube site and no further vomiting after discontinuation of antibiotics Patient white count is 5.53, creatinine 0.7 as of yesterday no lab draw today Objective - Vital Signs Vital signs: Vital Signs Temp 98.7 F 06/25/23 18:14 Pulse 115 H 06/25/23 18:14 Resp 18 06/25/23 18:14 BP 100/68 06/25/23 18:14 Pulse Ox 96 06/25/23 18:14 FiO2 Intake & Output 06/24/23 06/25/23 06/25/23 18:59 06:59 18:59 Intake Total 400 Balance 400 Weight 33 kg 33 kg Intake: Tube Feeding 400 Other: Voiding Method Toilet Toilet Toilet # Voids 2 # Bowel Movements 2 - Exam GENERAL DESCRIPTION: middle-age female lying in bed in no distress RESPIRATORY SYSTEM: Unlabored breathing , decreased breath sounds at bases HEART: S1 S2 regular rate and rhythm , ABDOMEN: Soft , no tenderness PEG tube site with no redness or drainage EXTREMITIES: No edema feet - Labs CBC & Chem 7: 06/24/23 07:34 06/24/23 07:34 Labs: Abnormal Lab Results - Last 24 Hours (Table) 06/24/23 06/25/23 06/25/23 Range/Units 20:56 05:50 11:40 POC Glucose (mg/dL) 133 H 200 H 179 H (70-110) mg/dL 06/25/23 Range/Units 16:55 POC Glucose (mg/dL) 161 H (70-110) mg/dL Assessment and Plan (1) ESBL (extended spectrum beta-lactamase) producing bacteria infection Current Visit: Yes Status: Acute Code(s): A49.9 - BACTERIAL INFECTION, UNSPECIFIED; Z16.12 - EXTENDED SPECTRUM BETA LACTAMASE (ESBL) RESISTANCE SNOMED Code(s): 803718183 (2) Gastrostomy infection Current Visit: Yes Status: Acute Code(s): K94.22 - GASTROSTOMY INFECTION SNOMED Code(s): 127448581 (3) MRSA (methicillin resistant staph aureus) culture positive Current Visit: No Status: Acute Code(s): Z22.322 - CARRIER OR SUSPECTED CARRIER OF METHICILLIN RESIS STAPH SNOMED Code(s): 462348577 Plan: 1patient with a positive culture from the PEG tube site growing ESBL Klebsiella and presumptive MRSA in this patient who recently did have a PEG tube placement for chronic nausea gastroparesis CT abdominal pannus on admission did not show any evidence of intra-abdominal abscess or abdominal wall abscess with a question of mild cellulitis versus possible colonization around the PEG tube site as the patient not running a fever she did have a elevated white count on admission however white count is subsequent normalized without getting any treatment for ESBL or MRSA 2patient Bactrim DS and Levaquin was discontinued because of her vomiting 3- patient seems to be doing well no further vomiting and the patient be monitored closely off antibiotic therapy at this point Dictation was produced using [employer] dictation software. please excuse any grammatical, word or spelling errors. Time with Patient: Less than 30
[2023-06-25] MEDS: MIRTAZAPINE 15 MG TAB PO SCH (19:51)
[2023-06-25 20:58] LABS: Glucose,Whole Blood 180 mg/dL (70-110)
[2023-06-25] MEDS: SODIUM CHLORIDE 0.9% 1,000 ML IV SCH (23:38)
[2023-06-26 06:10] LABS: Glucose,Whole Blood 188 mg/dL (70-110)
[2023-06-26] MEDS: INSULIN ASPART (NovoLOG) 100 UNIT/ML VIAL SQ SCH ×3 (06:42→17:19)
[2023-06-26] MEDS: SODIUM BICARBONATE TAB 650 MG TAB PO SCH ×2 (08:37→15:37)
[2023-06-26] MEDS: ALPRAZolam 0.25 MG TAB PO SCH (08:38)
[2023-06-26] MEDS: MAGNESIUM OXIDE 400 MG TAB PO SCH (08:38)
[2023-06-26] MEDS: ONDANSETRON 4 MG TAB PO SCH (08:38)
[2023-06-26] MEDS: FOLIC ACID 1 MG TAB PO SCH (08:38)
[2023-06-26] MEDS: PANTOPRAZOLE 40 MG TABLET PO SCH ×2 (08:38→17:19)
[2023-06-26] MEDS: HYDROcodone/APAP 5-325MG 1 EACH TAB PO SCH ×2 (08:38→15:37)
[2023-06-26] MEDS: POTASSIUM BICARBONATE/CIT AC 20 MEQ TABLET.EFF PO SCH (08:38)
[2023-06-26] MEDS: ATORVASTATIN 20 MG TAB PO SCH (08:38)
[2023-06-26] MEDS: DULoxetine HCL 30 MG CAPSULE.DR PO SCH (08:38)
[2023-06-26] MEDS: METOCLOPRAMIDE 10 MG TAB PO SCH ×3 (08:38→17:19)
[2023-06-26] MEDS: SODIUM FERRIC GLUCONAT-SUCROSE 125 MG in SODIUM CHLORIDE 0.9% 100 ML IVPB SCH (08:59)
[2023-06-26] MEDS: IPRATROPIUM-ALBUTEROL 3 ML NEB INHALATION SCH (09:38)
[2023-06-26] MEDS: BUDESONIDE 0.5 MG/2 ML NEBU INHALATION SCH (09:38)
[2023-06-26 10:44] LABS: Basophils # (A) 0.06 X 10*3/uL (0.00-0.10); Basophils % (A) 1.3 %; Eosinophils # (A) 0.18 X 10*3/uL (0.04-0.35); Eosinophils % (A) 3.8 %; HCT 25.7 % (37.2-46.3); HGB 7.8 g/dL (12.0-15.0); Lymphocytes % (A) 36.1 %; MCH 27.9 pg (27.0-32.0); MCHC 30.4 g/dL (32.0-37.0); MCV 91.8 FL (80.0-97.0); Mean Platelet Volume 9.6 FL (9.5-12.2); Monocytes # (A) 0.85 X 10*3/uL (0.20-1.00); NRBC Per 100 WBC 0 X 10*3/uL (0.00-0.01); Neutrophils % (A) 40.4 %; Platelet Count 430 X 10*3/uL (140-440); RDW 15.5 % (11.5-14.5); WBC 4.71 X 10*3/uL (4.50-10.00)
[2023-06-26 11:01] LABS: ALT 14 U/L (8-44); AST 12 U/L (13-35); Albumin 2.4 g/dL (3.8-4.9); Albumin/Globulin Ratio 0.96 Ratio (1.60-3.17); Alkaline Phosphatase 87 U/L (41-126); Blood Urea Nitrogen 14.7 mg/dL (9.0-27.0); Calcium 8.2 mg/dL (8.7-10.3); Carbon Dioxide 24.2 mmol/L (21.6-31.8); Chloride 103 mmol/L (96-109); Globulin 2.5 g/dL (1.6-3.3); Glucose 192 mg/dL (70-110); Potassium 4.9 mmol/L (3.5-5.5); Sodium 135 mmol/L (135-145); Total Bilirubin <0.2 mg/dL (0.3-1.2); Total Protein 4.9 g/dL (6.2-8.2)
[2023-06-26 11:16] LABS: Glucose,Whole Blood 222 mg/dL (70-110)
--- NOTE | 2023-06-26 12:01 | P.PN ---
Subjective Progress Note Date: 06/26/23 CHIEF COMPLAINT: Gastrostomy infection HISTORY OF PRESENT ILLNESS: The patient's does report nausea. No vomiting. Denies abdominal pain. She reports that she is not eating. She is tolerating tube feeds at 39 mL per hour. Afebrile. Remains Tachycardic. WBC 4. 71 HgB7.8 platelets 430. Patient receiving IV iron PHYSICAL EXAM: VITAL SIGNS: Reviewed. GENERAL: Well-developed in no acute distress. ABDOMEN: Soft. Nondistended. Nontender. PEG tube site with no erythema minimal cream colored drainage noted. ASSESSMENT: 1. Gastrostomy infection PLAN: -No surgical intervention planned -Continue local care to peg tube Physician Solutions Development Analyst note has been reviewed by physician. Signing provider agrees with the documented findings, assessment, and plan of care. Objective - Vital Signs Vital signs: Vital Signs Temp 98.8 F 06/26/23 07:49 Pulse 123 H 06/26/23 07:49 Resp 17 06/26/23 07:49 BP 128/84 06/26/23 07:49 Pulse Ox 97 06/26/23 07:49 FiO2 Intake & Output 06/25/23 06/26/23 06/26/23 18:59 06:59 18:59 Weight 33 kg 34 kg Other: Voiding Method Toilet Toilet - Labs CBC & Chem 7: 06/26/23 05:45 06/26/23 05:45 Labs: Abnormal Lab Results - Last 24 Hours (Table) 06/25/23 06/25/23 06/25/23 Range/Units 11:40 16:55 20:55 RBC (4.10-5.20) X 10*6/uL Hgb (12.0-15.0) g/dL Hct (37.2-46.3) % MCHC (32.0-37.0) g/dL RDW (11.5-14.5) % Creatinine (0.6-1.5) mg/dL BUN/Creatinine Ratio (12.00-20.00) Ratio Glucose (70-110) mg/dL POC Glucose (mg/dL) 179 H 161 H 180 H (70-110) mg/dL Calcium (8.7-10.3) mg/dL Total Bilirubin (0.3-1.2) mg/dL AST (13-35) U/L Total Protein (6.2-8.2) g/dL Albumin (3.8-4.9) g/dL Albumin/Globulin Ratio (1.60-3.17) Ratio 06/26/23 06/26/23 06/26/23 Range/Units 05:45 05:45 06:06 RBC 2.80 L (4.10-5.20) X 10*6/uL Hgb 7.8 L (12.0-15.0) g/dL Hct 25.7 L (37.2-46.3) % MCHC 30.4 L (32.0-37.0) g/dL RDW 15.5 H (11.5-14.5) % Creatinine 0.5 L (0.6-1.5) mg/dL BUN/Creatinine Ratio 29.40 H (12.00-20.00) Ratio Glucose 192 H (70-110) mg/dL POC Glucose (mg/dL) 188 H (70-110) mg/dL Calcium 8.2 L (8.7-10.3) mg/dL Total Bilirubin <0.2 L (0.3-1.2) mg/dL AST 12 L (13-35) U/L Total Protein 4.9 L (6.2-8.2) g/dL Albumin 2.4 L (3.8-4.9) g/dL Albumin/Globulin Ratio 0.96 L (1.60-3.17) Ratio 06/26/23 Range/Units 11:14 RBC (4.10-5.20) X 10*6/uL Hgb (12.0-15.0) g/dL Hct (37.2-46.3) % MCHC (32.0-37.0) g/dL RDW (11.5-14.5) % Creatinine (0.6-1.5) mg/dL BUN/Creatinine Ratio (12.00-20.00) Ratio Glucose (70-110) mg/dL POC Glucose (mg/dL) 222 H (70-110) mg/dL Calcium (8.7-10.3) mg/dL Total Bilirubin (0.3-1.2) mg/dL AST (13-35) U/L Total Protein (6.2-8.2) g/dL Albumin (3.8-4.9) g/dL Albumin/Globulin Ratio (1.60-3.17) Ratio
[2023-06-26 15:03] VITALS: BP 147/78; PULSE 120; RESP 19; TEMP 98.1
[2023-06-26 16:06] LABS: Glucose,Whole Blood 191 mg/dL (70-110)
[2023-06-26] MEDS: SODIUM CHLORIDE 0.9% 1,000 ML IV SCH (17:21)
--- NOTE | 2023-06-27 07:16 | PN ---
PROGRESS NOTE SUBJECTIVE: This is a 53-year-old white female, pulse 115 to 123, temperature 98.7, blood pressure 120s to 140s over 70s, 99 on room air. She was felt to not eat anything by mouth due to PEG tube feedings, says she has continued to vomit. Hemoglobin 7.8, . She is anemic due to malnutrition. Glucose is mid 100s which was improved. Albumin 2.4. PROGNOSIS: Guarded. Follow up in next 24 to 48 hours. Possible discharge home for gastroparesis. Follow up as an outpatient. Wait for GI consult. MMODL / IJN: [id number] /
--- NOTE | 2023-06-28 05:17 | CDI ---
Documentation Clarification Form Date: 06/28/2023 04:59:20 AM From: Shaina Padilla Admit Date: 06/15/2023 07:15:00 AM Patient Name: Lesa Patterson Visit Number: [id number] Discharge Date: 06/26/2023 07:28:00 PM ATTENTION: The Clinical Documentation Specialists (CDI) and [facility] Coding Staff appreciate your assistance in clarifying documentation. Please respond to the clarification below the line at the bottom and electronically sign. The CDI & [facility] Coding staff will review the response and follow-up if needed. Please note: Queries are made part of the Legal Health Record. If you have any questions, please contact the author of this message via ITS. Dr. Dell Pike Per ID PN's 06/19-06/25 "A question of mild Cellulitis versus possible colonization around the PEG tube site" is documented. Additional clarification regarding if patient had cellulitis ore was it ruled out. History/risk factors: PEG tube infection Clinical Indicators: Positive for Klebsiella and presumptive MRSA Treatment: Zosyn, Levaquin, Vancomycin Please clarify if patient had PEG tube site cellulitis or was it ruled out: [ ] PEG tube site cellulitis [ ] PEG tube site cellulitis ruled out [ ] Other, please specify: [ ] Unable to determine MTDD
--- NOTE | 2023-06-30 21:35 | PN ---
PROGRESS NOTE ADDENDUM: PEG tube site cellulitis ruled in. MMODL / IJN: [id number] /
--- NOTE | 2023-07-02 18:36 | P.PN ---
Subjective Progress Note Date: 06/26/23 Principal diagnosis: Reason for follow-up is PEG tube site culture positive with MRSA and ESBL Klebsiella Patient is a 53-year-old female with a past medical history Si gnificant for diabetes mellitus musculoskeletal disorder did have a history of chronic nausea vomiting gastroparesis patient recently was evaluated [facility] and the patient did have placement of a gastrojejunostomy tube patient presented to [facility] ER on 06/15/2023 with concern for some purulent drainage from the gastrojejunostomy tube site, CT abdominal pelvis did not show any abscess culture subsequently grew MRSA and ESBL Klebsiella prompting this infectious disease consultation On today's evaluation that is 06/26/2023 the patient remains to be afebrile the patient is breathing comfortably on room air, the patient denies having any chest pain the patient denies any chest pain shortness of breath or cough, the patient denies having any abdominal pain or any drainage around the PEG tube site denies any vomiting tolerating her tube feeds Patient white count is 4.71 creatinine 0.5 Objective - Vital Signs Vital signs: Vital Signs Temp 98.8 F 06/26/23 07:49 Pulse 123 H 06/26/23 07:49 Resp 17 06/26/23 07:49 BP 128/84 06/26/23 07:49 Pulse Ox 97 06/26/23 07:49 FiO2 Intake & Output 06/25/23 06/26/23 06/26/23 18:59 06:59 18:59 Weight 33 kg 34 kg Other: Voiding Method Toilet Toilet - Exam GENERAL DESCRIPTION: middle-age female lying in bed in no distress RESPIRATORY SYSTEM: Unlabored breathing , decreased breath sounds at bases HEART: S1 S2 regular rate and rhythm , ABDOMEN: Soft , no tenderness PEG tube site with no redness or drainage EXTREMITIES: No edema feet - Labs CBC & Chem 7: 06/26/23 05:45 06/26/23 05:45 Labs: Abnormal Lab Results - Last 24 Hours (Table) 06/25/23 06/25/23 06/26/23 Range/Units 16:55 20:55 05:45 RBC 2.80 L (4.10-5.20) X 10*6/uL Hgb 7.8 L (12.0-15.0) g/dL Hct 25.7 L (37.2-46.3) % MCHC 30.4 L (32.0-37.0) g/dL RDW 15.5 H (11.5-14.5) % Creatinine (0.6-1.5) mg/dL BUN/Creatinine Ratio (12.00-20.00) Ratio Glucose (70-110) mg/dL POC Glucose (mg/dL) 161 H 180 H (70-110) mg/dL Calcium (8.7-10.3) mg/dL Total Bilirubin (0.3-1.2) mg/dL AST (13-35) U/L Total Protein (6.2-8.2) g/dL Albumin (3.8-4.9) g/dL Albumin/Globulin Ratio (1.60-3.17) Ratio 06/26/23 06/26/23 06/26/23 Range/Units 05:45 06:06 11:14 RBC (4.10-5.20) X 10*6/uL Hgb (12.0-15.0) g/dL Hct (37.2-46.3) % MCHC (32.0-37.0) g/dL RDW (11.5-14.5) % Creatinine 0.5 L (0.6-1.5) mg/dL BUN/Creatinine Ratio 29.40 H (12.00-20.00) Ratio Glucose 192 H (70-110) mg/dL POC Glucose (mg/dL) 188 H 222 H (70-110) mg/dL Calcium 8.2 L (8.7-10.3) mg/dL Total Bilirubin <0.2 L (0.3-1.2) mg/dL AST 12 L (13-35) U/L Total Protein 4.9 L (6.2-8.2) g/dL Albumin 2.4 L (3.8-4.9) g/dL Albumin/Globulin Ratio 0.96 L (1.60-3.17) Ratio Assessment and Plan (1) ESBL (extended spectrum beta-lactamase) producing bacteria infection Status: Acute Code(s): A49.9 - BACTERIAL INFECTION, UNSPECIFIED; Z16.12 - EXTENDED SPECTRUM BETA LACTAMASE (ESBL) RESISTANCE SNOMED Code(s): 065361023 (2) Gastrostomy infection Status: Acute Code(s): K94.22 - GASTROSTOMY INFECTION SNOMED Code(s): 080186119 (3) MRSA (methicillin resistant staph aureus) culture positive Status: Acute Code(s): Z22.322 - CARRIER OR SUSPECTED CARRIER OF METHICILLIN RESIS STAPH SNOMED Code(s): 637452836 Plan: 1patient with a positive culture from the PEG tube site growing ESBL Klebsiella and presumptive MRSA in this patient who recently did have a PEG tube placement for chronic nausea gastroparesis CT abdominal pannus on admission did not show any evidence of intra-abdominal abscess or abdominal wall abscess with a question of mild cellulitis versus possible colonization around the PEG tube site as the patient not running a fever she did have a elevated white count on admission however white count is subsequent normalized without getting any ned tment for ESBL or MRSA 2- patient seems to be doing well no further vomiting advised to continue with the local care noted for antibiotics on discharge Dictation was produced using [employer] dictation software. please excuse any grammatical, word or spelling errors. Time with Patient: Less than 30
== END 2023-06-26 19:28 | disposition home or self-care (01) | DRG 252 ==
LOC: EC 03:20 → 4SSUR 07:15
PROVIDERS: ADMIT Family Medicine; ATTEND Family Medicine
PROC: 3E0G76Z Introduction of Nutritional Substance into Upper GI, Via Natural or Artificial Opening (ICD-10-PCS; principal; 2023-06-16)
DX: K94.22 Gastrostomy infection (principal); L03.311 Cellulitis of abdominal wall; B96.1 Klebsiella pneumoniae [K. pneumoniae] as the cause of diseases classified elsewhere; B95.62 Methicillin resistant Staphylococcus aureus infection as the cause of diseases classified elsewhere; E10.43 Type 1 diabetes mellitus with diabetic autonomic (poly)neuropathy; E10.65 Type 1 diabetes mellitus with hyperglycemia; E43 Unspecified severe protein-calorie malnutrition; Z68.1 Body mass index [BMI] 19.9 or less, adult; E86.0 Dehydration; I95.9 Hypotension, unspecified; J44.9 Chronic obstructive pulmonary disease, unspecified; F17.210 Nicotine dependence, cigarettes, uncomplicated; F32.A Depression, unspecified; R00.0 Tachycardia, unspecified; K21.00 Gastro-esophageal reflux disease with esophagitis, without bleeding; R62.7 Adult failure to thrive; F41.9 Anxiety disorder, unspecified; R11.10 Vomiting, unspecified; T36.8X5A Adverse effect of other systemic antibiotics, initial encounter; G57.93 Unspecified mononeuropathy of bilateral lower limbs; F51.04 Psychophysiologic insomnia; K31.84 Gastroparesis; G89.29 Other chronic pain; M75.02 Adhesive capsulitis of left shoulder; Z28.21 Immunization not carried out because of patient refusal; Z87.440 Personal history of urinary (tract) infections; Z86.14 Personal history of Methicillin resistant Staphylococcus aureus infection; Z16.12 Extended spectrum beta lactamase (ESBL) resistance; Z79.4 Long term (current) use of insulin; Z79.51 Long term (current) use of inhaled steroids; Z79.899 Other long term (current) drug therapy; Z71.3 Dietary counseling and surveillance
CPT/HCPCS: 36415; 71045; 74177; 80048; 80053; 81001; 82009; 82150; 82525; 82565; 82607; 82728; 82746; 82803; 83036; 83540; 83550; 83605; 83690; 83735; 83921; 84132; 84484; 85025; 85027; 85610; 85730; 87070; 87075; 87077; 87086; 87186; 87205; 93005; 94640; 96361; 96374; 96375; 99285

== ENCOUNTER 2023-07-04 12:11 | Observation (INO) | payer OTHER ==
[2023-07-04] MEDS ORDERED: ONDANSETRON 4 MG/2 ML VIAL IVP STA (12:23)
[2023-07-04] MEDS ORDERED: SODIUM CHLORIDE 0.9% 1,000 ML IV STA ×2 (12:35)
--- NOTE | 2023-07-04 13:11 | XR ---
EXAMINATION TYPE: XR chest 2V DATE OF EXAM: 07/04/2023 COMPARISON: Chest x-ray June 15, 2023 HISTORY: Chest pain TECHNIQUE: Frontal and lateral views of the chest are obtained. FINDINGS: There is no focal air space opacity, pleural effusion, or pneumothorax seen. Nipples redem onstrated overlying bilateral lower lungs. The cardiac silhouette size is stable and within normal li mits. The osseous structures are intact. IMPRESSION: No acute process. No significant change from prior.
--- NOTE | 2023-07-04 13:15 | ED ---
Chest Pain HPI - General Chief Complaint: Chest Pain Stated Complaint: Chest Pain Time Seen by Provider: 07/04/23 12:17 Source: patient, EMS, RN notes reviewed Mode of arrival: EMS Limitations: no limitations - History of Present Illness Initial Comments: 53-year-old female presents emergency Department via EMS chief complaint of chest pain, nausea vomiting dehydration. Patient has severe gastroparesis is an chronic tube feeds. Patient states that symptoms have been worsening states that she cannot keep anything down, complains of pain in her chest. Patient denies any new medications. Patient states his sister worsening recurrent issue. - Related Data Home Medications Medication Instructions Recorded Confirmed ALPRAZolam [Xanax] 0.25 mg PO BID 05/12/23 07/04/23 Atorvastatin [Lipitor] 20 mg PO DAILY 05/12/23 07/04/23 Budesonide [Pulmicort] 0.5 mg INHALATION RT-BID 05/12/23 07/04/23 DULoxetine HCL [Cymbalta] 30 mg PO DAILY 05/12/23 07/04/23 HYDROcodone/APAP 5-325MG [[place] 1 tab PO BID 05/12/23 07/04/23 5-325] Insulin Glargine,Hum.rec.anlog 3 units SQ BID 05/12/23 07/04/23 [Lantus Solostar Pen] Insulin Lispro [humaLOG Kwikpen] 2 unit SQ AC-TID 05/12/23 07/04/23 Insulin Lispro [humaLOG Kwikpen] See Protocol SQ AC-TID 05/12/23 07/04/23 Ipratropium-Albuterol Nebulize 3 ml INHALATION RT-BID 05/12/23 07/04/23 [Duoneb 0.5 mg-3 mg/3 ml Soln] Magnesium Oxide [Mag-Ox] 400 mg PO DAILY 05/12/23 07/04/23 Mirtazapine [Remeron] 30 mg PO HS 05/12/23 07/04/23 Potassium Chloride ER [K-Dur 20] 20 meq PO DAILY 05/12/23 07/04/23 Folic Acid 1 mg PO DAILY 06/15/23 07/04/23 Previous Rx's Medication Instructions Recorded Metoclopramide [Reglan] 10 mg PO ACHS 30 Days #120 tab 11/29/23 Scopolamine 1 mg/72 Hr Patch 1 patch TRANSDERM Q72H 30 Days #10 05/15/23 [TransDerm Scop] patch Pantoprazole [Protonix] 40 mg PO AC-BID 30 Days #60 tab 05/21/23 Ondansetron [Zofran] 4 mg PO DAILY 30 Days #30 tab 06/26/23 Allergies Allergy/AdvReac Type Severity Reaction Status Date / Time fentanyl Allergy Unknown Verified 07/04/23 13:44 Review of Systems ROS Statement: Those systems with pertinent positive or pertinent negative responses have been documented in the HPI. ROS Other: All systems not noted in ROS Statement are negative. 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 Date of last positivie culture/infection: 05/19/23 MDRO Source:: Urine Past Surgical History: Orthopedic Surgery, Tubal Ligation Past Anesthesia/Blood Transfusion Reactions: No Reported Reaction Additional Past Anesthesia/Blood Transfusion Reaction / Comment(s): UNK FAMILY HX Past Psychological History: Anxiety Smoking Status: Former smoker Past Alcohol Use History: None Reported Past Drug Use History: Marijuana - Past Family History Father History Unknown: Yes Additional Family Medical History / Comment(s): unknown-adopted Mother History Unknown: Yes Additional Family Medical History / Comment(s): unknown- adopted General Exam Limitations: no limitations General appearance: alert, in no apparent distress, cachectic Head exam: Present: atraumatic, normocephalic, normal inspection Eye exam: Present: normal appearance, PERRL, EOMI. Absent: scleral icterus, conjunctival injection, periorbital swelling ENT exam: Present: normal exam, normal oropharynx, mucous membranes moist Neck exam: Present: normal inspection, full ROM. Absent: tenderness, meningismus, lymphadenopathy Respiratory exam: Present: normal lung sounds bilaterally. Absent: respiratory distress, wheezes, rales, rhonchi, stridor Cardiovascular Exam: Present: normal rhythm, tachycardia, normal heart sounds. Absent: systolic murmur, diastolic murmur, rubs, gallop, clicks GI/Abdominal exam: Present: soft, normal bowel sounds, other (2 is noted). Absent: distended, tenderness, guarding, rebound, rigid Course Vital Signs 07/04/23 07/04/23 12:13 13:33 Temperature 97.1 F L Pulse Rate 128 H 122 H Respiratory 18 18 Rate Blood Pressure 129/92 143/91 O2 Sat by Pulse 100 99 Oximetry Chest Pain MDM - MDM Was pt. sent in by a medical professional or institution (, DANA, DIRECTOR OF RECRUITMENT AND ADMISSIONS, urgent care, hospital, or long-term...) When possible be specific @ -No Did you speak to anyone other than the patient for history (EMS, parent, family, police, friend...)? What history was obtained from this source @ -No Did you review nursing and triage notes (agree or disagree)? Why? @ -I reviewed and agree with nursing and triage notes Were old charts reviewed (outside hosp., previous admission, EMS record, old EKG, old radiological studies, urgent care reports/EKG's, long-term records)? Report findings @ -[Reviewed Laboratory studies, admissions Differential Diagnosis (chest pain, altered mental status, abdominal pain women, abdominal pain men, vaginal bleeding, weakness, fever, dyspnea, syncope, headache, dizziness, GI bleed, back pain, seizure, CVA, palpatations, mental health, musculoskeletal)? @ -Differential Chest Pain: Stable Angina, Unstable Angina, STEMI, NSTEMI Aortic Dissection, Pneumothorax, Musculoskeletal, Esophageal Spasm GERD, Cholecystitis, Pancreatitis, Zoster, this is not meant to be an all-inclusive list. EKG interpreted by me (3pts min.). @ -As above X-rays interpreted by me (1pt min.). @ -Chest x-ray shows no acute cardiopulmonary process CT interpreted by me (1pt min.). @ -None done U/S interpreted by me (1pt. min.). @ -None done What testing was considered but not performed or refused? (CT, X-rays, U/S, labs)? Why? @ -None What meds were considered but not given or refused? Why? @ -None Did you discuss the management of the patient with other professionals (professionals i.e. , DANA, DIRECTOR OF RECRUITMENT AND ADMISSIONS, lab, RT, psych nurse, foster care social worker, data report analyst, teacher, chief juvenile probation officer, continuous pillowcase cutter)? Give summary @ -Dr. Pike for admission secondary to dehydration, chest pain, worsening gastroparesis Was smoking cessation discussed for >3mins.? @ -No Was critical care preformed (if so, how long)? @ -No Were there social determinants of health that impacted care today? How? (Homelessness, low income, unemployed, alcoholism, drug addiction, transportation, low edu. Level, literacy, decrease access to med. care, retirement, rehab)? @ -No Was there de-escalation of care discussed even if they declined (Discuss DNR or withdrawal of care, Hospice)? DNR status @ -No What co-morbidities impacted this encounter? (DM, HTN, Smoking, COPD, CAD, Cancer, CVA, ARF, Chemo, Hep., AIDS, mental health diagnosis, sleep apnea, morbid obesity)? @ -Gastroparesis Was patient admitted / discharged? Hospital course, mention meds given and route, prescriptions, significant lab abnormalities, going to OR and other pertinent info. @ -Admitted patient's primary daily hydrated having persistent chest pain, gastroparesis symptoms. Patient be admitted for further treatment Undiagnosed new problem with uncertain prognosis? @ -No Drug Therapy requiring intensive monitoring for toxicity (Heparin, Nitro, Insulin, Cardizem)? @ -No Were any procedures done? @ -No Diagnosis/symptom? @ -Chest pain, gastroparesis, abdominal pain Acute, or Chronic, or Acute on Chronic? @ -Acute Uncomplicated (without systemic symptoms) or Complicated (systemic symptoms)? @ -[Complicated Side effects of treatment? @ -No Exacerbation, Progression, or Severe Exacerbation? @ -No Poses a threat to life or bodily function? How? (Chest pain, USA, PA, pneumonia, PE, COPD, DKA, ARF, appy, cholecystitis, CVA, Diverticulitis, Homicidal, Suicidal, threat to staff... and all critical care pts) @ -No Disposition Clinical Impression: Hyperglycemia, Nausea and vomiting, Diabetic gastroparesis, Intractable nausea and vomiting, Failure to thrive, Abdominal pain, Chest pain Disposition: ADMITTED IP TO THIS [facility] Time of Disposition: 13:48
[2023-07-04 13:35] LABS: Anisocytosis Slight; Basophils # (A) 0.1 k/uL (0-0.2); Basophils % (A) 1 %; Eosinophils # (A) 0.1 k/uL (0-0.7); Eosinophils % (A) 1 %; HCT 33.2 % (34.0-46.0); HGB 10.8 gm/dL (11.4-16.0); Hypochromasia Slight; Lymphocytes # (A) 1.6 k/uL (1.0-4.8); Lymphocytes % (A) 20 %; MCHC 32.5 g/dL (31.0-37.0); MCV 89.2 fL (80.0-100.0); Mean Platelet Volume 6.9; Monocytes # (A) 0.4 k/uL (0-1.0); Monocytes % (A) 5 %; Neutrophils # (A) 5.8 k/uL (1.3-7.7); Neutrophils % (A) 71 %; Platelet Count 721 k/uL (150-450); RBC 3.72 m/uL (3.80-5.40); RDW 16.7 % (11.5-15.5); WBC 8.1 k/uL (3.8-10.6)
[2023-07-04 13:38] LABS: Appearance,Urine Clear (Clear); Bilirubin,Urine Negative (Negative); Blood,Urine Negative (Negative); Color,Urine Colorless; Glucose,Urine (UA) 4+ (Negative); Hyaline Casts,Urine 9 /lpf (0-2); Ketones,Urine Trace (Negative); Leukocyte Esterase,Urine Negative (Negative); Mucus,Urine Rare /hpf; Nitrite,Urine Negative (Negative); PH, Urine 7.5 (5.0-8.0); Protein,Urine 2+ (Negative); RBC,Urine 2 /hpf (0-5); Specific Gravity,Urine 1.029 (1.001-1.035); Urobilinogen,Urine <2.0 mg/dL (<2.0); WBC,Urine 1 /hpf (0-5)
[2023-07-04 13:45] LABS: ALT 17 U/L (4-34); AST 26 U/L (14-36); African American GFR (CKD) >90 (>60 ml/min/1.73 sqM); Albumin 3.2 g/dL (3.5-5.0); Alkaline Phosphatase 129 U/L (38-126); Anion Gap 4 mmol/L; Blood Urea Nitrogen 29 mg/dL (7-17); Calcium 8.5 mg/dL (8.4-10.2); Carbon Dioxide 32 mmol/L (22-30); Chloride 97 mmol/L (98-107); Glucose 339 mg/dL (74-99); Lipase 153 U/L (23-300); Non-African American GFR(CKD) >90 (>60 ml/min/1.73 sqM); Potassium 4.4 mmol/L (3.5-5.1); Sodium 133 mmol/L (137-145); Total Bilirubin 0.3 mg/dL (0.2-1.3); Total Protein 6.6 g/dL (6.3-8.2)
[2023-07-04] MEDS ORDERED: NALOXONE 0.4 MG/ML 1 ML VIAL IV PRN (13:46)
[2023-07-04] MEDS ORDERED: ACETAMINOPHEN TAB 325 MG TAB PO PRN (13:46)
[2023-07-04] MEDS ORDERED: HYDROmorphone 0.5 MG/0.5 ML SYRINGE IVP STA (13:47)
[2023-07-04] MEDS: SODIUM CHLORIDE 0.9% 1,000 ML IV SCH (16:25)
[2023-07-04] MEDS: ATORVASTATIN 20 MG TAB PO SCH (18:41)
[2023-07-04] MEDS: SCOPOLAMINE 1 MG/72 HR PATCH TRANSDERM SCH (18:42)
[2023-07-04] MEDS: IPRATROPIUM-ALBUTEROL 3 ML NEB INHALATION SCH (19:53)
[2023-07-04] MEDS: BUDESONIDE 0.5 MG/2 ML NEBU INHALATION SCH (19:53)
[2023-07-04] MEDS: ALPRAZolam 0.25 MG TAB PO SCH (20:44)
[2023-07-04] MEDS: METOCLOPRAMIDE 10 MG TAB PO SCH (20:45)
[2023-07-04] MEDS: HYDROcodone/APAP 5-325MG 1 EACH TAB PO SCH (20:45)
[2023-07-04] MEDS: MIRTAZAPINE 15 MG TAB PO SCH (20:45)
[2023-07-04] MEDS: INSULIN DETEMIR (LEVEMIR) 100 UNIT/ML SYR SQ SCH (21:27)
[2023-07-04 21:30] LABS: Glucose,Whole Blood 218 mg/dL (70-110)
[2023-07-04] MEDS ORDERED: DEXTROSE 50% SYRINGE 50 ML IVP PRN ×2 (23:11)
[2023-07-04] MEDS ORDERED: NITROGLYCERIN SL TABS 0.4 MG TAB SUBLINGUAL PRN (23:11)
--- NOTE | 2023-07-05 05:25 | HP ---
HISTORY AND PHYSICAL HISTORY OF PRESENT ILLNESS: Lesa Patterson is a white female who came with atypical chest pain to the hospital, radiating up into her chest. She has been tube feeds which A1c is down to 8. REVIEW OF SYSTEMS: A 14-point review of systems otherwise negative. PHYSICAL EXAMINATION: CARDIOVASCULAR: S1, S2. LUNGS: Transmitted upper sounds, scattered wheeze. GI: Soft. HEMATOLOGY: Negative for Homans. PSYCH: Fair mood and affect. NEUROLOGIC: Alert and oriented x3. MEDICATIONS: 1. Scopolamine. 2. Protonix. 3. Zofran. 4. Reglan. 5. Insulin. History of anxiety disorder, diabetes, surgery tubal ligation. . ASSESSMENT: Nausea, vomiting, hyperglycemia, diabetic gastroparesis MMODL / IJN: [id number] /
[2023-07-05 06:02] LABS: Glucose,Whole Blood 139 mg/dL (70-110)
[2023-07-05] MEDS: INSULIN ASPART (NovoLOG) 100 UNIT/ML VIAL SQ SCH ×4 (06:08→21:02)
[2023-07-05] MEDS: INSULIN DETEMIR (LEVEMIR) 100 UNIT/ML SYR SQ SCH ×2 (06:36→21:02)
[2023-07-05] MEDS: METOCLOPRAMIDE 10 MG TAB PO SCH ×4 (06:36→21:01)
[2023-07-05] MEDS: PANTOPRAZOLE 40 MG TABLET PO SCH ×2 (06:37→18:18)
[2023-07-05] MEDS: SODIUM CHLORIDE 0.9% 1,000 ML IV SCH ×2 (06:39→18:19)
--- NOTE | 2023-07-05 06:39 | CT ---
EXAMINATION TYPE: CT chest wo con DATE OF EXAM: 07/05/2023 COMPARISON: NONE HISTORY: chest pain CT DLP: 101.7 mGycm. Automated Exposure Control for Dose Reduction was Utilized. TECHNIQUE: CT scan of the thorax is performed without IV contrast. FINDINGS: LUNGS: Groundglass opacity in the right lower lobe and to lesser degree the left basilar region. No p leural effusion or pneumothorax seen bilaterally. No suspicious focal consolidation. MEDIASTINUM: Lack of IV contrast is noted to limit evaluation for mediastinal and especially hilar ad enopathy. There are no definitive greater than 1 cm mediastinal lymph nodes. No cardiomegaly or per icardial effusion is seen. Moderate coronary artery calcification. OTHER: Slight scoliotic curvature. Mild to moderate chronic compression type fracture at T12 level wi th height loss and sclerosis. IMPRESSION: 1. Mild edema is thought present in both lower lungs. No suspicious focal consolidation.
[2023-07-05] MEDS: BUDESONIDE 0.5 MG/2 ML NEBU INHALATION SCH ×2 (08:30→20:07)
[2023-07-05] MEDS: IPRATROPIUM-ALBUTEROL 3 ML NEB INHALATION SCH ×2 (08:30→20:07)
[2023-07-05 09:11] LABS: Basophils # (A) 0.06 X 10*3/uL (0.00-0.10); Basophils % (A) 0.9 %; Eosinophils # (A) 0.21 X 10*3/uL (0.04-0.35); Eosinophils % (A) 3.2 %; HCT 28.4 % (37.2-46.3); HGB 8.9 g/dL (12.0-15.0); Lymphocytes # (A) 1.96 X 10*3/uL (0.90-5.00); MCH 28.5 pg (27.0-32.0); MCHC 31.3 g/dL (32.0-37.0); Mean Platelet Volume 8.8 FL (9.5-12.2); Monocytes # (A) 0.59 X 10*3/uL (0.20-1.00); NRBC Per 100 WBC 0 X 10*3/uL (0.00-0.01); Neutrophils # (A) 3.68 X 10*3/uL (1.80-7.70); Neutrophils % (A) 56.4 %; Platelet Count 607 X 10*3/uL (140-440); RBC 3.12 X 10*6/uL (4.10-5.20); RDW 16.4 % (11.5-14.5); WBC 6.53 X 10*3/uL (4.50-10.00)
--- NOTE | 2023-07-05 09:27 | P.CRDCN ---
History of Present Illness History of present illness: HISTORY OF PRESENT ILLNESS: This is a 53-year-old female with a past medical history significant for hyperlipidemia, anxiety, diabetes, and gastroparesis with tube feeds. 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 We have been asked to see the patient in consultation for chest pain. Patient examined at the bedside. Patient states yesterday she began having chest pain on the left side of her chest. She states the pain lasted for approximately a few hours. She denies any shortness of breath. She does report nausea and vomiting at home. She states that she has not been able to keep liquids down. Patients left side of her chest is extremely tender to palpation. She denies any recent trauma to the area. * EKG reveals sinus tachycardia with no signs of acute ischemia * Chest xray negative for acute process * Laboratory data: Troponin negative 2. D-dimer 0.36 * Current home cardiac medications include Lipitor 20 mg daily REVIEW OF SYSTEMS: At the time of my exam: CONSTITUTIONAL: Denies fever or chills. HEENT: Denies blurred vision, vision changes, or eye pain. Denies hemoptysis CARDIOVASCULAR: Denies chest pain. Denies orthopnea. Denies PND. Denies palpitations RESPIRATORY: Denies shortness of breath. GASTROINTESTINAL: Denies abdominal pain. Denies nausea or vomiting. HEMATOLOGIC: Denies bleeding disorders. GENITOURINARY: Denies any blood in urine. SKIN: Denies pruitis. Denies rash. PHYSICAL EXAM: VITAL SIGNS: Reviewed. GENERAL: Well-developed in no acute distress. HEENT: Head is normocephalic. Pupils are equal, round. Sclerae anicteric. Mucous membranes of the mouth are moist. Neck supple. No JVD or thyromegaly LUNGS: Respirations even and unlabored. Lungs essentially clear to auscultation bilaterally. HEART: Regular rate and rhythm. S1 and S2 heard. ABDOMEN: Soft. Nondistended. Nontender. EXTREMITIES: Normal range of motion. No clubbing or cyanosis. Peripheral pulse s intact. No lower extremity edema NEUROLOGIC: Awake and alert. Oriented x 3. ASSESSMENT: Nausea and vomiting Chest pain, troponins negative 2 Hyperlipidemia Diabetes Gastroparesis requiring tube feeding Anxiety PLAN: An acute coronary event has been ruled out 2-D echo has been ordered by primary medicine Patient is currently stable from a cardiac standpoint We will sign off. Please reconsult if needed. Nurse practitioner note has been reviewed by physician. Signing provider agrees with the documented findings, assessment, and plan of care. 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 Date of last positivie culture/infection: 05/19/23 MDRO Source:: Urine Past Surgical History: Orthopedic Surgery, Tubal Ligation Past Anesthesia/Blood Transfusion Reactions: No Reported Reaction Additional Past Anesthesia/Blood Transfusion Reaction / Comment(s): UNK FAMILY HX Past Psychological History: Anxiety Smoking Status: Former smoker Past Alcohol Use History: None Reported Additional Past Alcohol Use History / Comment(s): STARTED SMOKING 1987 Past Drug Use History: Marijuana Additional Drug Use History / Comment(s): HAS MEDICAL MARIJUANA CARD-USES DAILY AND FREQUENTLY - Past Family History Father History Unknown: Yes Additional Family Medical History / Comment(s): unknown-adopted Mother History Unknown: Yes Additional Family Medical History / Comment(s): unknown- adopted Medications and Allergies Home Medications Medication Instructions Recorded Confirmed Type ALPRAZolam [Xanax] 0.25 mg PO BID 05/12/23 07/04/23 History Atorvastatin [Lipitor] 20 mg PO DAILY 05/12/23 07/04/23 History Budesonide [Pulmicort] 0.5 mg INHALATION RT-BID 05/12/23 07/04/23 History DULoxetine HCL [Cymbalta] 30 mg PO DAILY 05/12/23 07/04/23 History HYDROcodone/APAP 5-325MG [[place] 1 tab PO BID 05/12/23 07/04/23 History 5-325] Insulin Glargine,Hum.rec.anlog 3 units SQ BID 05/12/23 07/04/23 History [Lantus Solostar Pen] Insulin Lispro [humaLOG Kwikpen] 2 unit SQ AC-TID 05/12/23 07/04/23 History Insulin Lispro [humaLOG Kwikpen] See Protocol SQ AC-TID 05/12/23 07/04/23 History Ipratropium-Albuterol Nebulize 3 ml INHALATION RT-BID 05/12/23 07/04/23 History [Duoneb 0.5 mg-3 mg/3 ml Soln] Magnesium Oxide [Mag-Ox] 400 mg PO DAILY 05/12/23 07/04/23 History Mirtazapine [Remeron] 30 mg PO HS 05/12/23 07/04/23 History Potassium Chloride ER [K-Dur 20] 20 meq PO DAILY 05/12/23 07/04/23 History Metoclopramide [Reglan] 10 mg PO ACHS 30 Days #120 tab 05/15/23 07/04/23 Rx Scopolamine 1 mg/72 Hr Patch 1 patch TRANSDERM Q72H 30 Days #10 05/15/23 07/04/23 Rx [TransDerm Scop] patch Pantoprazole [Protonix] 40 mg PO AC-BID 30 Days #60 tab 05/21/23 07/04/23 Rx Folic Acid 1 mg PO DAILY 06/15/23 07/04/23 History Ondansetron [Zofran] 4 mg PO DAILY 30 Days #30 tab 06/26/23 07/04/23 Rx Allergies Allergy/AdvReac Type Severity Reaction Status Date / Time fentanyl Allergy Unknown Verified 07/04/23 13:44 Physical Exam Vitals: Vital Signs Temp Pulse Pulse Resp BP BP Pulse Ox 07/05/23 02:58 98.0 F 108 H 16 94/59 99 07/05/23 02:00 100 07/04/23 22:54 114 H 07/04/23 22:27 97.9 F 114 H 17 105/70 99 07/04/23 21:55 107 H 16 110/72 97 07/04/23 20:30 114 H 18 139/89 97 07/04/23 18:37 97.4 F L 109 H 18 132/89 100 07/04/23 16:23 115 H 18 145/95 100 07/04/23 14:30 113 H 18 157/104 99 07/04/23 13:33 122 H 18 143/91 99 07/04/23 12:13 97.1 F L 128 H 18 129/92 100 Intake and Output 07/04/23 07/04/23 07/05/23 14:59 22:59 06:59 Other: Voiding Method Toilet Weight 30.844 kg 30.844 kg Results 07/05/23 06:12 07/04/23 13:12 Cardiac Enzymes 07/04/23 07/04/23 07/05/23 Range/Units 13:12 13:12 00:51 AST 26 (14-36) U/L Troponin I <0.012 <0.012 (0.000-0.034) ng/mL CBC 07/04/23 Range/Units 13:12 WBC 8.1 (3.8-10.6) k/uL RBC 3.72 L (3.80-5.40) m/uL Hgb 10.8 L (11.4-16.0) gm/dL Hct 33.2 L (34.0-46.0) % Plt Count 721 H (150-450) k/uL Comprehensive Metabolic Panel 07/04/23 Range/Units 13:12 Sodium 133 L (137-145) mmol/L Potassium 4.4 (3.5-5.1) mmol/L Chloride 97 L (98-107) mmol/L Carbon Dioxide 32 H (22-30) mmol/L BUN 29 H (7-17) mg/dL Creatinine 0.42 L (0.52-1.04) mg/dL Glucose 339 H (74-99) mg/dL Calcium 8.5 (8.4-10.2) mg/dL AST 26 (14-36) U/L ALT 17 (4-34) U/L Alkaline Phosphatase 129 H (38-126) U/L Total Protein 6.6 (6.3-8.2) g/dL Albumin 3.2 L (3.5-5.0) g/dL Current Medications Generic Name Dose Route Start Last Admin Trade Name Inocenteq PRN Reason Stop Dose Admin Acetaminophen 650 mg 07/04/23 13:46 07/04/23 18:41 Acetaminophen Tab 325 Mg Tab PO 650 mg Q6HR PRN Administration Mild Pain or Fever > 100.5 Hydrocodone Bitart/Acetaminophen 1 each 07/04/23 21:00 07/04/23 20:45 Hydrocodone/Apap 5-325mg 1 Each Tab PO 1 each BID TERENCE Administration Albuterol/Ipratropium 3 ml 07/04/23 20:00 07/04/23 19:53 Ipratropium-Albuterol 3 Ml Neb INHALATION Not Given RT-BID TERENCE Alprazolam 0.25 mg 07/04/23 21:00 07/04/23 20:44 Alprazolam 0.25 Mg Tab PO 0.25 mg BID TERENCE Administration Atorvastatin Calcium 20 mg 07/04/23 18:15 07/04/23 18:41 Atorvastatin 20 Mg Tab PO 20 mg DAILY TERENCE Administration Budesonide 0.5 mg 07/04/23 20:00 07/04/23 19:53 Budesonide 0.5 Mg/2 Ml Nebu INHALATION Not Given RT-BID TERENCE Dextrose/Water 25 ml 07/04/23 23:11 Dextrose 50% Syringe 50 Ml IVP PER PROTOCOL PRN Hypoglycemia Protocol Dextrose/Water 50 ml 07/04/23 23:11 Dextrose 50% Syringe 50 Ml IVP PER PROTOCOL PRN Hypoglycemia Protocol Duloxetine HCl 30 mg 07/05/23 09:00 Duloxetine Hcl 30 Mg Capsule.Dr PO DAILY TERENCE Folic Acid 1 mg 07/05/23 09:00 Folic Acid 1 Mg Tab PO DAILY [facility] Hydromorphone HCl 1 mg 07/04/23 23:11 Hydromorphone 1 Mg/Ml 1 Ml Syringe IVP Q4HR PRN Pain Sodium Chloride 1,000 mls @ 75 mls/hr 07/04/23 14:00 07/04/23 16:25 Saline 0.9% IV 75 mls/hr .[id number] TERENCE Administration Insulin Aspart 0 unit 07/05/23 07:30 07/05/23 06:08 Insulin Aspart (Novolog) 100 Unit/Ml Vial SQ Not Given ACHS [facility] Protocol Insulin Detemir 3 unit 07/04/23 21:00 07/04/23 21:27 Insulin Detemir (Levemir) 100 Unit/Ml Syr SQ 3 unit BID@0700,2100 TERENCE Administration Magnesium Oxide 400 mg 07/05/23 09:00 Magnesium Oxide 400 Mg Tab PO DAILY TER[facility] Metoclopramide HCl 10 mg 07/04/23 21:00 07/04/23 20:45 Metoclopramide 10 Mg Tab PO 10 mg ACHS TERENCE Administration Mirtazapine 30 mg 07/04/23 21:00 07/04/23 20:45 Mirtazapine 15 Mg Tab PO 30 mg HS TERENCE Administration Naloxone HCl 0.2 mg 07/04/23 13:46 Naloxone 0.4 Mg/Ml 1 Ml Vial IV Q2M PRN Opioid Reversal Nitroglycerin 0.4 mg 07/04/23 23:11 Nitroglycerin Sl Tabs 0.4 Mg Tab SUBLINGUAL Q5M PRN Chest Pain Ondansetron HCl 4 mg 07/04/23 13:46 Ondansetron 4 Mg/2 Ml Vial IVP Q8HR PRN Nausea And Vomiting Ondansetron HCl 4 mg 07/05/23 09:00 Ondansetron 4 Mg Tab PO DAILY TERENCE Pantoprazole Sodium 40 mg 07/05/23 07:30 Pantoprazole 40 Mg Tablet PO AC-BID TERENCE Potassium Chloride 20 meq 07/05/23 09:00 Potassium Chloride Er 20 Meq Tab.Er PO DAILY TERENCE Scopolamine 1 patch 07/04/23 19:00 07/04/23 18:42 Scopolamine 1 Mg/72 Hr Patch TRANSDERM 1 patch Q72H TERENCE Administration Intake and Output 07/04/23 07/04/23 07/05/23 14:59 22:59 06:59 Other: Voiding Method Toilet Weight 30.844 kg 30.844 kg Patient Weight 07/05/23 06:59 Weight 30.844 kg 07/04/23 13:12 07/04/23 13:12
[2023-07-05] MEDS: ATORVASTATIN 20 MG TAB PO SCH (09:44)
[2023-07-05] MEDS: MAGNESIUM OXIDE 400 MG TAB PO SCH (09:44)
[2023-07-05] MEDS: ONDANSETRON 4 MG TAB PO SCH (09:44)
[2023-07-05] MEDS: POTASSIUM CHLORIDE ER 20 MEQ TAB.ER PO SCH (09:44)
[2023-07-05] MEDS: FOLIC ACID 1 MG TAB PO SCH (09:44)
[2023-07-05] MEDS: DULoxetine HCL 30 MG CAPSULE.DR PO SCH (09:45)
[2023-07-05] MEDS: HYDROcodone/APAP 5-325MG 1 EACH TAB PO SCH ×2 (09:48→21:01)
[2023-07-05] MEDS: ALPRAZolam 0.25 MG TAB PO SCH ×2 (09:48→21:01)
[2023-07-05 10:20] LABS: ALT 13 U/L (8-44); AST 14 U/L (13-35); Albumin 2.5 g/dL (3.8-4.9); Albumin/Globulin Ratio 0.93 Ratio (1.60-3.17); Alkaline Phosphatase 93 U/L (41-126); BUN/Creat Ratio 40.25 Ratio (12.00-20.00); Blood Urea Nitrogen 16.1 mg/dL (9.0-27.0); Calcium 8.2 mg/dL (8.7-10.3); Carbon Dioxide 22.2 mmol/L (21.6-31.8); Chloride 107 mmol/L (96-109); Globulin 2.7 g/dL (1.6-3.3); Glucose 143 mg/dL (70-110); Potassium 3.7 mmol/L (3.5-5.5); Sodium 138 mmol/L (135-145); Total Bilirubin <0.2 mg/dL (0.3-1.2); Total Protein 5.2 g/dL (6.2-8.2)
[2023-07-05 12:11] LABS: Glucose,Whole Blood 88 mg/dL (70-110)
--- NOTE | 2023-07-05 12:19 | CA ---
Transthoracic Echo Report Name: Lesa Patterson Age: 53 Gender: F : 1970 Exam Date: 07/05/2023 10:17 Exam Location: [facility] Ht (in): 59 Wt (lb): 68 Ordering Physician: Dell Pike MD Attending/Referring Phys: Wire Inspector Selina Jauregui [facility] Procedure CPT: Indications: Chest Pain Cardiac Hx: Technical Quality: Technically difficult study Contrast 1: Total Dose (mL): Contrast 2: Total Dose (mL): MEASUREMENTS (Male / Female) Normal Values 2D ECHO LV Diastolic Diameter PLAX 3.3 cm 4.2 - 5.9 / 3.9 - 5.3 cm LV Systolic Diameter PLAX 2.3 cm IVS Diastolic Thickness 0.9 cm 0.6 - 1.0 / 0.6 - 0.9 cm LVPW Diastolic Thickness 0.9 cm 0.6 - 1.0 / 0.6 - 0.9 cm LV Relative Wall Thickness 0.5 LVOT Diameter 1.9 cm LA Systolic Diameter LX 2.4 cm 3.0 - 4.0 / 2.7 - 3.8 cm M-MODE Aortic Root Diameter MM 2.8 cm AV Cusp Separation MM 1.7 cm DOPPLER AV Peak Velocity 98.0 cm/s AV Peak Gradient 3.8 mmHg AV Mean Velocity 76.1 cm/s AV Mean Gradient 2.5 mmHg AV Velocity Time Integral 16.8 cm LVOT Peak Velocity 86.2 cm/s LVOT Peak Gradient 3.0 mmHg LVOT Velocity Time Integral 14.0 cm LVOT Stroke Volume 37.9 cm??? LVOT Stroke Volume Index 32.5 ml/m??? LVOT Cardiac Index 4068.9 cm???/min???m??? AV Area Cont Eq vti 2.2 cm??? AV Area Cont Eq pk 2.4 cm??? Mitral E Point Velocity 63.7 cm/s Mitral A Point Velocity 79.9 cm/s Mitral E to A Ratio 0.8 MV Deceleration Time 107.6 ms LV E' Lateral Velocity 9.7 cm/s Mitral E to LV E' Lateral Ratio 6.6 LV E' Septal Velocity 6.0 cm/s Mitral E to LV E' Septal Ratio 10.6 Right Atrial Pressure 3.0 mmHg FINDINGS Left Ventricle Left ventricular wall thickness normal. Left ventricular cavity size normal. Low normal left ventricular systolic function with no obvious regional wall motion abnormalities. Left ventricular ejection fraction is estimated at 50- 55%. Right Ventricle Normal right ventricular size. Right Atrium Normal right atrial size. Left Atrium Normal left atrial size. Mitral Valve Mitral valve thickened. No mitral regurgitation. Aortic Valve Trileaflet aortic valve. Thickened aortic valve without stenosis. No aortic valve regurgitation. Tricuspid Valve Structurally normal tricuspid valve. No tricuspid regurgitation. Pulmonic Valve Structurally normal pulmonic valve. No pulmonic regurgitation. Pericardium Small pericardial effusion. Aorta Normal size aortic root. CONCLUSIONS Normal LV size and function, ejection fraction 50-55% Previewed by: Dr. Fabio Cline MD (Electronically Signed) Final Date: 05 July 2023 12:18
[2023-07-05] MEDS: HYDROmorphone 1 MG/ML 1 ML SYRINGE IVP PRN (13:19)
[2023-07-05 17:42] LABS: Glucose,Whole Blood 187 mg/dL (70-110)
[2023-07-05] MEDS: atenoloL 25 MG TAB PO SCH (18:19)
[2023-07-05 20:38] LABS: Glucose,Whole Blood 235 mg/dL (70-110)
--- NOTE | 2023-07-05 20:58 | PN ---
PROGRESS NOTE SUBJECTIVE: This is a 53-year-old white female, started back her on tube feedings. OBJECTIVE: VITAL SIGNS: Pulse is now 84, respiratory rate 16 to 18, blood pressure 125/71, O2 96 on room air, temp 97.6. CARDIOVASCULAR: S1, S2. Hemoglobin is down to 8.9. ASSESSMENT: Atypical chest pain, wait for cardiology's recommendations. So far, troponins are negative x2. PROGNOSIS: Guarded. She had echocardiogram and a chest CT for severe chest pain in the middle of the night. Cardiology has also seen her. She has mild edema in both lower lungs, no suspicious focal consolidation. She has compression type fractures at T12 level with height loss and sclerosis, mild to moderate. Echocardiogram shows 50% to 55% ejection fraction. MMODL / IJN: [id number] /
[2023-07-05] MEDS: MIRTAZAPINE 15 MG TAB PO SCH (21:01)
[2023-07-06] MEDS: ONDANSETRON 4 MG/2 ML VIAL IVP PRN ×2 (01:46→14:54)
[2023-07-06] MEDS: HYDROmorphone 1 MG/ML 1 ML SYRINGE IVP PRN ×3 (01:50→23:50)
[2023-07-06 06:32] LABS: Glucose,Whole Blood 269 mg/dL (70-110)
[2023-07-06] MEDS: INSULIN ASPART (NovoLOG) 100 UNIT/ML VIAL SQ SCH ×4 (06:50→20:54)
[2023-07-06] MEDS: INSULIN DETEMIR (LEVEMIR) 100 UNIT/ML SYR SQ SCH ×2 (06:50→20:53)
[2023-07-06] MEDS: SODIUM CHLORIDE 0.9% 1,000 ML IV SCH ×2 (06:50→20:54)
[2023-07-06] MEDS: PANTOPRAZOLE 40 MG TABLET PO SCH ×2 (06:50→18:12)
[2023-07-06] MEDS: METOCLOPRAMIDE 10 MG TAB PO SCH ×4 (06:50→20:54)
[2023-07-06] MEDS: BUDESONIDE 0.5 MG/2 ML NEBU INHALATION SCH ×2 (07:41→20:35)
[2023-07-06] MEDS: IPRATROPIUM-ALBUTEROL 3 ML NEB INHALATION SCH ×2 (07:41→20:35)
[2023-07-06] MEDS: MAGNESIUM OXIDE 400 MG TAB PO SCH (08:52)
[2023-07-06] MEDS: HYDROcodone/APAP 5-325MG 1 EACH TAB PO SCH ×2 (08:53→20:53)
[2023-07-06] MEDS: ATORVASTATIN 20 MG TAB PO SCH (08:53)
[2023-07-06] MEDS: FOLIC ACID 1 MG TAB PO SCH (08:53)
[2023-07-06] MEDS: POTASSIUM CHLORIDE ER 20 MEQ TAB.ER PO SCH (08:54)
[2023-07-06] MEDS: ALPRAZolam 0.25 MG TAB PO SCH ×2 (08:54→20:53)
[2023-07-06] MEDS: ONDANSETRON 4 MG TAB PO SCH (08:54)
[2023-07-06] MEDS: DULoxetine HCL 30 MG CAPSULE.DR PO SCH (08:54)
[2023-07-06] MEDS: atenoloL 25 MG TAB PO SCH ×2 (11:20→20:53)
[2023-07-06 11:54] LABS: Glucose,Whole Blood 223 mg/dL (70-110)
[2023-07-06 17:28] LABS: Glucose,Whole Blood 182 mg/dL (70-110)
--- NOTE | 2023-07-06 20:00 | P.PN ---
Progress Note - Text Progress Note Date: 07/06/23 Hospital course: I'm rounding for Dr. Dell Pike: 07/06/2023: Sitting up in bed. Oral intake some. Occasionally chest and abdominal discomfort. Tolerating tube feeding. Had a bowel movement. Feeling better. Active Medications Acetaminophen (Acetaminophen Tab 325 Mg Tab) 650 mg PO Q6HR PRN PRN Reason: Mild Pain or Fever > 100.5 Last Admin: 07/04/23 18:41 Dose: 650 mg Hydrocodone Bitart/Acetaminophen (Hydrocodone/Apap 5-325mg 1 Each Tab) 1 each PO BID [facility] Last Admin: 07/06/23 08:53 Dose: 1 each Albuterol/Ipratropium (Ipratropium-Albuterol 3 Ml Neb) 3 ml INHALATION RT-BID [facility] Last Admin: 07/06/23 07:41 Dose: 3 ml Alprazolam (Alprazolam 0.25 Mg Tab) 0.25 mg PO BID [facility] Last Admin: 07/06/23 08:54 Dose: 0.25 mg Atenolol (Atenolol 25 Mg Tab) 25 mg PO BID [facility] Last Admin: 07/06/23 11:20 Dose: Not Given Atorvastatin Calcium (Atorvastatin 20 Mg Tab) 20 mg PO DAILY [facility] Last Admin: 07/06/23 08:53 Dose: 20 mg Budesonide (Budesonide 0.5 Mg/2 Ml Nebu) 0.5 mg INHALATION RT-BID [facility] Last Admin: 07/06/23 07:41 Dose: 0.5 mg Dextrose/Water (Dextrose 50% Syringe 50 Ml) 25 ml IVP PER PROTOCOL PRN; Protocol PRN Reason: Hypoglycemia Dextrose/Water (Dextrose 50% Syringe 50 Ml) 50 ml IVP PER PROTOCOL PRN; Protocol PRN Reason: Hypoglycemia Duloxetine HCl (Duloxetine Hcl 30 Mg Capsule.Dr) 30 mg PO DAILY [facility] Last Admin: 07/06/23 08:54 Dose: 30 mg Folic Acid (Folic Acid 1 Mg Tab) 1 mg PO DAILY [facility] Last Admin: 07/06/23 08:53 Dose: 1 mg Hydromorphone HCl (Hydromorphone 1 Mg/Ml 1 Ml Syringe) 1 mg IVP Q4HR PRN PRN Reason: Pain Last Admin: 07/06/23 15:21 Dose: 1 mg Sodium Chloride (Saline 0.9%) 1,000 mls @ 75 mls/hr IV .[id number] [facility] Last Admin: 07/06/23 06:50 Dose: Not Given Insulin Aspart (Insulin Aspart (Novolog) 100 Unit/Ml Vial) 0 unit SQ [facility]; Protocol Last Admin: 07/06/23 18:12 Dose: 1 unit Insulin Detemir (Insulin Detemir (Levemir) 100 Unit/Ml Syr) 3 unit SQ BID@0700,2100 [facility] Last Admin: 07/06/23 06:50 Dose: 3 unit Magnesium Oxide (Magnesium Oxide 400 Mg Tab) 400 mg PO DAILY [facility] Last Admin: 07/06/23 08:52 Dose: 400 mg Metoclopramide HCl (Metoclopramide 10 Mg Tab) 10 mg PO [facility] Last Admin: 07/06/23 18:12 Dose: 10 mg Mirtazapine (Mirtazapine 15 Mg Tab) 30 mg PO [facility] Last Admin: 07/05/23 21:01 Dose: 30 mg Naloxone HCl (Naloxone 0.4 Mg/Ml 1 Ml Vial) 0.2 mg IV Q2M PRN PRN Reason: Opioid Reversal Nitroglycerin (Nitroglycerin Sl Tabs 0.4 Mg Tab) 0.4 mg SUBLINGUAL Q5M PRN PRN Reason: Chest Pain Ondansetron HCl (Ondansetron 4 Mg/2 Ml Vial) 4 mg IVP Q8HR PRN PRN Reason: Nausea And Vomiting Last Admin: 07/06/23 14:54 Dose: 4 mg Ondansetron HCl (Ondansetron 4 Mg Tab) 4 mg PO DAILY [facility] Last Admin: 07/06/23 08:54 Dose: 4 mg Pantoprazole Sodium (Pantoprazole 40 Mg Tablet) 40 mg PO AC-BID [facility] Last Admin: 07/06/23 18:12 Dose: 40 mg Potassium Chloride (Potassium Chloride Er 20 Meq Tab.Er) 20 meq PO DAILY [facility] Last Admin: 07/06/23 08:54 Dose: 20 meq Scopolamine (Scopolamine 1 Mg/72 Hr Patch) 1 patch TRANSDERM Q72H [facility] Last Admin: 07/04/23 18:42 Dose: 1 patch VITAL SIGNS: 98.2, 96, 15, 92 by Michelle 6, 99% room air GENERAL: BMI 13.7, severe loss of muscle mass and subcutaneous fat, , comfortable. EYES: Pupils equal. Conjunctiva normal. HEENT: External appearance of nose and ears normal, oral cavity grossly normal. NECK: JVD not raised; masses not palpable. HEART: First and second heart sounds are normal; no edema. LUNGS: Respiratory rate normal; clear to auscultation. ABDOMEN: Soft, scaphoid nontender, liver spleen not palpable, no masses palpable. PEG tube PSYCH: Alert and oriented x3; mood and affect normal. MUSCULOSKELETAL:No Clubbing/cyanosis;muscles-grossly intact. Decreased subcutaneous fat and muscle mass. Prominent bones. INVESTIGATIONS, reviewed in the clinical context: July 05: White count 6.5 hemoglobin 8.9 platelets 607 potassium 3.7 creatinine 0.4 albumin 2.5 D echocardiogram: EF 50-55%. CT chest: Chronic compression T12. Assessment and plan: -Chest pain and epigastric pain.- likely from esophagitis. Patient was seen by cardiology. PPI. -Severe protein calorie malnutrition Tube feeding and oral feeding -Chronic nausea Scopolamine patch -Diabetes mellitus type 2, chronically on insulin Follow Accu-Cheks and sliding scale -Chronic pain [place] 5 at home -Chronic insomnia Remeron -GERD/esophagitis Protonix -Depression Cymbalta -COPD in a current smoker Keven Sabillon
[2023-07-06 20:31] LABS: Glucose,Whole Blood 188 mg/dL (70-110)
[2023-07-06] MEDS: MIRTAZAPINE 15 MG TAB PO SCH (20:54)
[2023-07-07] MEDS: HYDROmorphone 1 MG/ML 1 ML SYRINGE IVP PRN ×3 (05:02→15:08)
[2023-07-07] MEDS: PANTOPRAZOLE 40 MG TABLET PO SCH ×2 (05:02→18:13)
[2023-07-07 05:07] LABS: Glucose,Whole Blood 248 mg/dL (70-110)
[2023-07-07] MEDS: INSULIN ASPART (NovoLOG) 100 UNIT/ML VIAL SQ SCH ×4 (05:09→20:47)
[2023-07-07] MEDS: INSULIN DETEMIR (LEVEMIR) 100 UNIT/ML SYR SQ SCH ×2 (06:22→21:19)
[2023-07-07] MEDS: METOCLOPRAMIDE 10 MG TAB PO SCH ×4 (06:22→21:17)
[2023-07-07] MEDS: ALPRAZolam 0.25 MG TAB PO SCH ×2 (08:22→21:16)
[2023-07-07] MEDS: ATORVASTATIN 20 MG TAB PO SCH (08:22)
[2023-07-07] MEDS: SODIUM CHLORIDE 0.9% 1,000 ML IV SCH ×2 (08:22→21:21)
[2023-07-07] MEDS: HYDROcodone/APAP 5-325MG 1 EACH TAB PO SCH ×2 (08:23→21:17)
[2023-07-07] MEDS: ONDANSETRON 4 MG TAB PO SCH (08:23)
[2023-07-07] MEDS: DULoxetine HCL 30 MG CAPSULE.DR PO SCH (08:23)
[2023-07-07] MEDS: atenoloL 25 MG TAB PO SCH ×3 (08:23→21:19)
[2023-07-07] MEDS: POTASSIUM CHLORIDE ER 20 MEQ TAB.ER PO SCH (08:23)
[2023-07-07] MEDS: MAGNESIUM OXIDE 400 MG TAB PO SCH (08:23)
[2023-07-07] MEDS: FOLIC ACID 1 MG TAB PO SCH (08:23)
[2023-07-07] MEDS: IPRATROPIUM-ALBUTEROL 3 ML NEB INHALATION SCH ×2 (08:27→19:44)
[2023-07-07] MEDS: BUDESONIDE 0.5 MG/2 ML NEBU INHALATION SCH ×2 (08:27→19:44)
[2023-07-07 12:02] LABS: Glucose,Whole Blood 291 mg/dL (70-110)
[2023-07-07] MEDS: CALCIUM CARBONATE 500 MG CHEWABLE PO SCH ×3 (12:33→21:16)
[2023-07-07] MEDS: ONDANSETRON 4 MG/2 ML VIAL IVP PRN (15:09)
[2023-07-07 17:39] LABS: Glucose,Whole Blood 242 mg/dL (70-110)
[2023-07-07] MEDS: SCOPOLAMINE 1 MG/72 HR PATCH TRANSDERM SCH (18:18)
[2023-07-07 20:40] LABS: Glucose,Whole Blood 77 mg/dL (70-110)
[2023-07-07] MEDS: MIRTAZAPINE 15 MG TAB PO SCH (21:16)
--- NOTE | 2023-07-08 00:19 | P.PN ---
Progress Note - Text Progress Note Date: 07/07/23 Hospital course: I'm rounding for Dr. Dell Pike: 07/06/2023: Sitting up in bed. Oral intake some. Occasionally chest and abdominal discomfort. Tolerating tube feeding. Had a bowel movement. Feeling better. 07/07/2023: Discussed with the patient that her lower chest and upper epigastric pain likely from esophagitis. Continue with PPI. Liquid Tums. Active Medications Acetaminophen (Acetaminophen Tab 325 Mg Tab) 650 mg PO Q6HR PRN PRN Reason: Mild Pain or Fever > 100.5 Last Admin: 07/04/23 18:41 Dose: 650 mg Hydrocodone Bitart/Acetaminophen (Hydrocodone/Apap 5-325mg 1 Each Tab) 1 each PO BID [facility] Last Admin: 07/07/23 21:17 Dose: 1 each Albuterol/Ipratropium (Ipratropium-Albuterol 3 Ml Neb) 3 ml INHALATION RT-BID [facility] Last Admin: 07/07/23 19:44 Dose: 3 ml Alprazolam (Alprazolam 0.25 Mg Tab) 0.25 mg PO BID [facility] Last Admin: 07/07/23 21:16 Dose: 0.25 mg Atenolol (Atenolol 25 Mg Tab) 25 mg PO BID [facility] Last Admin: 07/07/23 21:19 Dose: Not Given Atorvastatin Calcium (Atorvastatin 20 Mg Tab) 20 mg PO DAILY [facility] Last Admin: 07/07/23 08:22 Dose: 20 mg Budesonide (Budesonide 0.5 Mg/2 Ml Nebu) 0.5 mg INHALATION RT-BID [facility] Last Admin: 07/07/23 19:44 Dose: 0.5 mg Calcium Carbonate/Glycine (Calcium Carbonate 500 Mg Chewable) 500 mg PO QID [facility] Last Admin: 07/07/23 21:16 Dose: 500 mg Dextrose/Water (Dextrose 50% Syringe 50 Ml) 25 ml IVP PER PROTOCOL PRN; Protocol PRN Reason: Hypoglycemia Dextrose/Water (Dextrose 50% Syringe 50 Ml) 50 ml IVP PER PROTOCOL PRN; Protocol PRN Reason: Hypoglycemia Duloxetine HCl (Duloxetine Hcl 30 Mg Capsule.Dr) 30 mg PO DAILY [facility] Last Admin: 07/07/23 08:23 Dose: 30 mg Folic Acid (Folic Acid 1 Mg Tab) 1 mg PO DAILY [facility] Last Admin: 07/07/23 08:23 Dose: 1 mg Hydromorphone HCl (Hydromorphone 1 Mg/Ml 1 Ml Syringe) 1 mg IVP Q4HR PRN PRN Reason: Pain Last Admin: 07/07/23 15:08 Dose: 1 mg Sodium Chloride (Saline 0.9%) 1,000 mls @ 75 mls/hr IV .[id number] [facility] Last Admin: 07/07/23 21:21 Dose: 75 mls/hr Insulin Aspart (Insulin Aspart (Novolog) 100 Unit/Ml Vial) 0 unit SQ [facility]; Protocol Last Admin: 07/07/23 20:47 Dose: Not Given Insulin Detemir (Insulin Detemir (Levemir) 100 Unit/Ml Syr) 3 unit SQ BID@0700,2100 [facility] Last Admin: 07/07/23 21:19 Dose: Not Given Magnesium Oxide (Magnesium Oxide 400 Mg Tab) 400 mg PO DAILY [facility] Last Admin: 07/07/23 08:23 Dose: 400 mg Metoclopramide HCl (Metoclopramide 10 Mg Tab) 10 mg PO [facility] Last Admin: 07/07/23 21:17 Dose: 10 mg Mirtazapine (Mirtazapine 15 Mg Tab) 30 mg PO HS [facility] Last Admin: 07/07/23 21:16 Dose: 30 mg Naloxone HCl (Naloxone 0.4 Mg/Ml 1 Ml Vial) 0.2 mg IV Q2M PRN PRN Reason: Opioid Reversal Nitroglycerin (Nitroglycerin Sl Tabs 0.4 Mg Tab) 0.4 mg SUBLINGUAL Q5M PRN PRN Reason: Chest Pain Ondansetron HCl (Ondansetron 4 Mg/2 Ml Vial) 4 mg IVP Q8HR PRN PRN Reason: Nausea And Vomiting Last Admin: 07/07/23 15:09 Dose: 4 mg Ondansetron HCl (Ondansetron 4 Mg Tab) 4 mg PO DAILY [facility] Last Admin: 07/07/23 08:23 Dose: 4 mg Pantoprazole Sodium (Pantoprazole 40 Mg Tablet) 40 mg PO AC-BID [facility] Last Admin: 07/07/23 18:13 Dose: 40 mg Potassium Chloride (Potassium Chloride Er 20 Meq Tab.Er) 20 meq PO DAILY [facility] Last Admin: 07/07/23 08:23 Dose: 20 meq Scopolamine (Scopolamine 1 Mg/72 Hr Patch) 1 patch TRANSDERM Q72H [facility] Last Admin: 07/07/23 18:18 Dose: 1 patch VITAL SIGNS: 98.2, 87, 16, 90/56, 98% room air GENERAL: BMI 13.7, severe loss of muscle mass and subcutaneous fat, , comfortable. EYES: Pupils equal. Conjunctiva normal. HEENT: External appearance of nose and ears normal, oral cavity grossly normal. NECK: JVD not raised; masses not palpable. HEART: First and second heart sounds are normal; no edema. LUNGS: Respiratory rate normal; clear to auscultation. ABDOMEN: Soft, scaphoid nontender, liver spleen not palpable, no masses palpabl e. PEG tube PSYCH: Alert and oriented x3; mood and affect normal. MUSCULOSKELETAL:No Clubbing/cyanosis;muscles-grossly intact. Decreased subcutaneous fat and muscle mass. Prominent bones. INVESTIGATIONS, reviewed in the clinical context: July 05: White count 6.5 hemoglobin 8.9 platelets 607 potassium 3.7 creatinine 0.4 albumin 2.5 D echocardiogram: EF 50-55%. CT chest: Chronic compression T12. Assessment and plan: -Chest pain and epigastric pain.- likely from esophagitis. Patient was seen by cardiology. PPI. Tums. -Severe protein calorie malnutrition Tube feeding and oral feeding -Chronic nausea Scopolamine patch -Diabetes mellitus type 2, chronically on insulin Follow Accu-Cheks and sliding scale -Chronic pain [place] 5 at home -Chronic insomnia Remeron -GERD/esophagitis Protonix -Depression Cymbalta -COPD in a current smoker [place], Pulrachelleort
[2023-07-08 06:14] LABS: Glucose,Whole Blood 112 mg/dL (70-110)
[2023-07-08] MEDS: INSULIN ASPART (NovoLOG) 100 UNIT/ML VIAL SQ SCH ×4 (06:15→20:34)
[2023-07-08] MEDS: HYDROmorphone 1 MG/ML 1 ML SYRINGE IVP PRN ×3 (06:19→15:15)
[2023-07-08] MEDS: INSULIN DETEMIR (LEVEMIR) 100 UNIT/ML SYR SQ SCH ×2 (06:20→20:34)
[2023-07-08] MEDS: PANTOPRAZOLE 40 MG TABLET PO SCH ×2 (06:20→17:16)
[2023-07-08] MEDS: METOCLOPRAMIDE 10 MG TAB PO SCH ×4 (06:20→20:34)
[2023-07-08] MEDS: IPRATROPIUM-ALBUTEROL 3 ML NEB INHALATION SCH ×2 (08:40→19:39)
[2023-07-08] MEDS: BUDESONIDE 0.5 MG/2 ML NEBU INHALATION SCH ×2 (08:40→19:39)
[2023-07-08] MEDS: ALPRAZolam 0.25 MG TAB PO SCH ×2 (10:11→20:34)
[2023-07-08] MEDS: CALCIUM CARBONATE 500 MG CHEWABLE PO SCH ×4 (10:12→20:34)
[2023-07-08] MEDS: MAGNESIUM OXIDE 400 MG TAB PO SCH (10:12)
[2023-07-08] MEDS: ONDANSETRON 4 MG/2 ML VIAL IVP PRN (10:12)
[2023-07-08] MEDS: ATORVASTATIN 20 MG TAB PO SCH (10:12)
[2023-07-08] MEDS: FOLIC ACID 1 MG TAB PO SCH (10:12)
[2023-07-08] MEDS: POTASSIUM CHLORIDE ER 20 MEQ TAB.ER PO SCH (10:13)
[2023-07-08] MEDS: DULoxetine HCL 30 MG CAPSULE.DR PO SCH (10:38)
[2023-07-08] MEDS: ONDANSETRON 4 MG TAB PO SCH (10:44)
[2023-07-08 11:48] VITALS: BMI 16.4
[2023-07-08 12:16] LABS: Glucose,Whole Blood 132 mg/dL (70-110)
[2023-07-08] MEDS: HYDROcodone/APAP 5-325MG 1 EACH TAB PO SCH ×2 (12:52→17:15)
[2023-07-08] MEDS: atenoloL 25 MG TAB PO SCH ×2 (12:55→20:33)
[2023-07-08] MEDS: SODIUM CHLORIDE 0.9% 1,000 ML IV SCH (12:56)
--- NOTE | 2023-07-08 13:33 | P.GSCN ---
History of Present Illness Consult date: 07/08/23 History of present illness: CHIEF COMPLAINT: Chest pain HISTORY OF PRESENT ILLNESS: This is a 38-year-old female who presented with chest pain was seen by cardiology service. He reported no evidence of acute coronary syndrome and had signed off. Patient has a known history of gastroparesis and has a gastrojejunostomy tube that was placed about a month ago at [facility]. Patient's tube feeds had been functioning appropriately and then this morning the tube feedings that showed evidence of a clogged. Nursing staff tried to flush the 2 with no results. Patient reports that during her last hospitalization she did require transfer to [facility] and had a clogged there as well which she required to go to individual suite for them to [facility]. Patient currently denies abdominal pain nausea or vomiting. Tube feeds are on hold. PAST MEDICAL HISTORY: Diabetes Mellitus, gastroparesis, Musculoskeletal Disorder PAST SURGICAL HISTORY: Gastrojejunostomy tube, tubal ligation and orthopedic surgery MEDICATIONS: See below ALLERGIES: See below SOCIAL HISTORY: No illicit drug use. REVIEW OF SYSTEMS: CONSTITUTIONAL: Denies fever or chills. HEENT: Denies blurred vision, vision changes, or eye pain. Denies hemoptysis CARDIOVASCULAR: Denies chest pain or pressure. RESPIRATORY: No shortness of breath. GASTROINTESTINAL: See HPI for pertinent findings HEMATOLOGIC: Denies bleeding disorders. GENITOURINARY: Denies any blood in urine or increased urinary frequency. SKIN: Denies pruitis. Denies rash. PHYSICAL EXAM: VITAL SIGNS: Reviewed GENERAL: no acute distress. ABDOMEN: Soft. Nondistended. Nontender. Gastrojejunostomy tube with evidence of thick granulated substance in the tubing NEUROLOGIC: Alert and oriented. Cranial nerves II through XII grossly intact. LABORATORY DATA: WBC 6. 53 hgb 8.9 platelets 607 Sodium 138 potassium 3.7 creatinine 0.4 Glucose 132 Albumin 2.5 IMAGING: ASSESSMENT: 1. Malfunctioning gastrojejunostomy tube 2. History of gastroparesis 3. Severe Protein calorie malnutrition PLAN: -Patient scheduled for PEG tube replacement tomorrow with Dr. Garzon -Nothing by mouth after midnight Thank you for this consultation Physician Tool Analyst note has been reviewed by physician. Signing provider agrees with the documented findings, assessment, and plan of care. 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 Year Discovered:: 05/19/23 MDRO Source:: Urine Past Surgical History: Orthopedic Surgery, Tubal Ligation Past Anesthesia/Blood Transfusion Reactions: No Reported Reaction Additional Past Anesthesia/Blood Transfusion Reaction / Comm: UNK FAMILY HX Past Psychological History: Anxiety Smoking Status: Former smoker Past Alcohol Use History: None Reported Additional Past Alcohol Use History / Comment(s): STARTED SMOKING 1987 Past Drug Use History: Marijuana Additional Drug Use History / Comment(s): HAS MEDICAL MARIJUANA CARD-USES DAILY AND FREQUENTLY - Past Family History Father History Unknown: Yes Additional Family Medical History / Comment(s): unknown-adopted Mother History Unknown: Yes Additional Family Medical History / Comment(s): unknown- adopted Medications and Allergies Home Medications Medication Instructions Recorded Confirmed Type ALPRAZolam [Xanax] 0.25 mg PO BID 05/12/23 07/04/23 History Atorvastatin [Lipitor] 20 mg PO DAILY 05/12/23 07/04/23 History Budesonide [Pulmicort] 0.5 mg INHALATION RT-BID 05/12/23 07/04/23 History DULoxetine HCL [Cymbalta] 30 mg PO DAILY 05/12/23 07/04/23 History HYDROcodone/APAP 5-325MG [[place] 1 tab PO BID 05/12/23 07/04/23 History 5-325] Insulin Glargine,Hum.rec.anlog 3 units SQ BID 05/12/23 07/04/23 History [Lantus Solostar Pen] Insulin Lispro [humaLOG Kwikpen] 2 unit SQ AC-TID 05/12/23 07/04/23 History Insulin Lispro [humaLOG Kwikpen] See Protocol SQ AC-TID 05/12/23 07/04/23 History Ipratropium-Albuterol Nebulize 3 ml INHALATION RT-BID 05/12/23 07/04/23 History [Duoneb 0.5 mg-3 mg/3 ml Soln] Magnesium Oxide [Mag-Ox] 400 mg PO DAILY 05/12/23 07/04/23 History Mirtazapine [Remeron] 30 mg PO HS 05/12/23 07/04/23 History Potassium Chloride ER [K-Dur 20] 20 meq PO DAILY 05/12/23 07/04/23 History Metoclopramide [Reglan] 10 mg PO ACHS 30 Days #120 tab 05/15/23 07/04/23 Rx Scopolamine 1 mg/72 Hr Patch 1 patch TRANSDERM Q72H 30 Days #10 05/15/23 07/04/23 Rx [TransDerm Scop] patch Pantoprazole [Protonix] 40 mg PO AC-BID 30 Days #60 tab 05/21/23 07/04/23 Rx Folic Acid 1 mg PO DAILY 06/15/23 07/04/23 History Ondansetron [Zofran] 4 mg PO DAILY 30 Days #30 tab 06/26/23 07/04/23 Rx Allergies Allergy/AdvReac Type Severity Reaction Status Date / Time fentanyl Allergy Unknown Verified 07/04/23 13:44 Surgical - Exam Vital Signs Temp Pulse Resp BP Pulse Ox 97.1 F L 128 H 18 129/92 100 07/04/23 12:13 07/04/23 12:13 07/04/23 12:13 07/04/23 12:13 07/04/23 12:13 Results - Labs 07/05/23 06:12 07/05/23 06:12 Abnormal Lab Results - Last 24 Hours (Table) 07/07/23 07/08/23 07/08/23 Range/Units 17:37 06:13 12:14 POC Glucose (mg/dL) 242 H 112 H 132 H (70-110) mg/dL
[2023-07-08 17:10] LABS: Glucose,Whole Blood 174 mg/dL (70-110)
--- NOTE | 2023-07-08 19:39 | PN ---
PROGRESS NOTE SUBJECTIVE: Lesa Patterson admitted for surgical evaluation for progressive vomiting. Chest pain was seen by Cardiology, this signed out. She had gastroparesis catheter drawn, colotomy/PEG, unable to get her PEG to fix, so she was kept overnight. OBJECTIVE: VITAL SIGNS: Stable, afebrile. CARDIOVASCULAR: S1, S2. HEMATOLOGY: Negative for Homans. PSYCH: Fair mood and affect. ASSESSMENT: Malfunctioning O2, has gastroparesis, severe protein-calorie malnutrition. Schedule for PEG tube placement tomorrow. N.p.o. after midnight and possible discharge home after that is done. Diabetic ketoacidosis, improved. ASSESSMENT: Atypical chest pain, improved. Echo reviewed, prognosis guarded. please see further orders. MMODL / IJN: [id number] /
[2023-07-08 20:18] LABS: Glucose,Whole Blood 151 mg/dL (70-110)
[2023-07-08] MEDS: MIRTAZAPINE 15 MG TAB PO SCH (20:34)
[2023-07-09] MEDS: HYDROmorphone 1 MG/ML 1 ML SYRINGE IVP PRN ×3 (00:59→14:47)
[2023-07-09] MEDS: SODIUM CHLORIDE 0.9% 1,000 ML IV SCH ×2 (01:00→14:47)
[2023-07-09] MEDS: PANTOPRAZOLE 40 MG TABLET PO SCH (06:03)
[2023-07-09] MEDS: INSULIN DETEMIR (LEVEMIR) 100 UNIT/ML SYR SQ SCH (06:04)
[2023-07-09] MEDS: METOCLOPRAMIDE 10 MG TAB PO SCH ×2 (06:04→14:48)
[2023-07-09 06:09] LABS: Glucose,Whole Blood 219 mg/dL (70-110)
[2023-07-09] MEDS: INSULIN ASPART (NovoLOG) 100 UNIT/ML VIAL SQ SCH ×2 (06:12→13:35)
[2023-07-09 06:28] LABS: Anisocytosis Slight; Basophils # (A) 0.1 k/uL (0-0.2); Basophils % (A) 1 %; Eosinophils # (A) 0.1 k/uL (0-0.7); Eosinophils % (A) 2 %; Hypochromasia Marked; Lymphocytes # (A) 2.3 k/uL (1.0-4.8); Lymphocytes % (A) 38 %; MCH 28.5 pg (25.0-35.0); MCHC 31.3 g/dL (31.0-37.0); MCV 91.1 fL (80.0-100.0); Mean Platelet Volume 7.3; Monocytes # (A) 0.5 k/uL (0-1.0); Monocytes % (A) 9 %; Neutrophils # (A) 2.8 k/uL (1.3-7.7); Neutrophils % (A) 47 %; Platelet Count 517 k/uL (150-450); RBC 3.18 m/uL (3.80-5.40); RDW 16.3 % (11.5-15.5)
[2023-07-09 06:39] LABS: ALT 20 U/L (4-34); AST 27 U/L (14-36); African American GFR (CKD) >90 (>60 ml/min/1.73 sqM); Albumin 2.4 g/dL (3.5-5.0); Albumin/Globulin Ratio 0.9; Alkaline Phosphatase 90 U/L (38-126); Anion Gap 0 mmol/L; Blood Urea Nitrogen 18 mg/dL (7-17); Calcium 8.5 mg/dL (8.4-10.2); Carbon Dioxide 29 mmol/L (22-30); Chloride 104 mmol/L (98-107); Globulin 2.7 g/dL; Glucose 203 mg/dL (74-99); Non-African American GFR(CKD) >90 (>60 ml/min/1.73 sqM); Sodium 133 mmol/L (137-145); Total Bilirubin 0.2 mg/dL (0.2-1.3); Total Protein 5.1 g/dL (6.3-8.2)
[2023-07-09 06:45] LABS: HGB 9.1 gm/dL (11.4-16.0)
[2023-07-09] MEDS: BUDESONIDE 0.5 MG/2 ML NEBU INHALATION SCH (09:00)
[2023-07-09] MEDS: IPRATROPIUM-ALBUTEROL 3 ML NEB INHALATION SCH (09:00)
[2023-07-09] MEDS: MAGNESIUM OXIDE 400 MG TAB PO SCH (09:44)
[2023-07-09] MEDS: ONDANSETRON 4 MG TAB PO SCH (09:44)
[2023-07-09] MEDS: POTASSIUM CHLORIDE ER 20 MEQ TAB.ER PO SCH (09:44)
[2023-07-09] MEDS: ATORVASTATIN 20 MG TAB PO SCH (09:44)
[2023-07-09] MEDS: atenoloL 25 MG TAB PO SCH (09:44)
[2023-07-09] MEDS: CALCIUM CARBONATE 500 MG CHEWABLE PO SCH ×2 (09:44→14:48)
[2023-07-09] MEDS: ALPRAZolam 0.25 MG TAB PO SCH (09:44)
[2023-07-09] MEDS: DULoxetine HCL 30 MG CAPSULE.DR PO SCH (09:44)
[2023-07-09] MEDS: FOLIC ACID 1 MG TAB PO SCH (09:44)
[2023-07-09] MEDS: HYDROcodone/APAP 5-325MG 1 EACH TAB PO SCH (09:45)
[2023-07-09] MEDS ORDERED: IV FLUID CONTINUATION 1,000 ML IV ONE (12:09)
[2023-07-09] MEDS ORDERED: LIDOCAINE 1% INJ 10MG/ML (20 ML MDV) ONE (12:15)
[2023-07-09] MEDS ORDERED: PROPOFOL 10 MG/ML 20 ML VIAL IV ONE (12:15)
--- NOTE | 2023-07-09 12:35 | P.OP ---
Date of Procedure: 07/09/23 Preoperative Diagnosis: Malnutrition Postoperative Diagnosis: Malnutrition Procedure(s) Performed: EGD with J-tube placement Anesthesia: MAC Surgeon: Shane Garzon Pathology: none sent Condition: stable Disposition: PACU Description of Procedure: The patient's placed on the endoscopy table in the lateral position. She received IV sedation. The gastroscope placed oropharynx passed in the esophagus and stomach. Scope was then placed through the pylorus. The first second portion duodenum appeared normal. Patient had an occluded J-tube. The balloon was deflated and then the J-tube was removed. The new 16-[place] jejunostomy tube was placed through the abdominal wall. In the existing tract. The J-tube position the stomach. The J-tube was then grasped with a forcep and placed into the small bowel. The J-tube was fed into the small bowel. The balloon was inflated and seen within the stomach. The scope was withdrawn. Patient tolerated the procedure well and
--- NOTE | 2023-07-09 12:47 | P.PN ---
Subjective Progress Note Date: 07/09/23 CHIEF COMPLAINT: Malfunctioning gastrojejunostomy tube HISTORY OF PRESENT ILLNESS: Patient has a malfunctioning gastrojejunostomy tube. She is scheduled for PEG tube replacement today. She denies any abdominal pain. Afebrile. WBC 6.0 HGb 9.1 Plt 517 Na 133 K 5.0 Cr 0.44 PHYSICAL EXAM: VITAL SIGNS: Reviewed. GENERAL: Well-developed in no acute distress. ABDOMEN: Soft. Nondistended. Nontender. NEUROLOGIC: Alert and oriented. Cranial nerves II through XII grossly intact. ASSESSMENT: 1. Malfunctioning gastrojejunostomy tube 2. History of gastroparesis 3. Severe Protein calorie malnutrition PLAN: -Patient scheduled for J tube replacement today with Dr. Garzon Physician Ampoule Filler And Sealer note has been reviewed by physician. Signing provider agrees with the documented findings, assessment, and plan of care. Objective - Vital Signs Vital signs: Vital Signs Temp 98.0 F 07/09/23 07:00 Pulse 96 07/09/23 09:14 Resp 16 07/09/23 07:00 BP 114/70 07/09/23 07:00 Pulse Ox 99 07/09/23 07:00 FiO2 Intake & Output 07/08/23 07/09/23 07/09/23 18:59 06:59 18:59 Intake Total 236 Balance 236 Weight 36.8 kg 35.4 kg Intake: Oral 236 Other: Voiding Method Toilet Toilet - Labs CBC & Chem 7: 07/09/23 05:54 07/09/23 05:54 Labs: Abnormal Lab Results - Last 24 Hours (Table) 07/08/23 07/08/23 07/08/23 Range/Units 12:14 17:05 20:17 RBC (3.80-5.40) m/uL Hgb (11.4-16.0) gm/dL Hct (34.0-46.0) % RDW (11.5-15.5) % Plt Count (150-450) k/uL Sodium (137-145) mmol/L BUN (7-17) mg/dL Creatinine (0.52-1.04) mg/dL Glucose (74-99) mg/dL POC Glucose (mg/dL) 132 H 174 H 151 H (70-110) mg/dL Total Protein (6.3-8.2) g/dL Albumin (3.5-5.0) g/dL 07/09/23 07/09/23 07/09/23 Range/Units 05:54 05:54 06:06 RBC 3.18 L (3.80-5.40) m/uL Hgb 9.1 L D (11.4-16.0) gm/dL Hct 29.0 L (34.0-46.0) % RDW 16.3 H (11.5-15.5) % Plt Count 517 H (150-450) k/uL Sodium 133 L (137-145) mmol/L BUN 18 H (7-17) mg/dL Creatinine 0.44 L (0.52-1.04) mg/dL Glucose 203 H (74-99) mg/dL POC Glucose (mg/dL) 219 H (70-110) mg/dL Total Protein 5.1 L (6.3-8.2) g/dL Albumin 2.4 L (3.5-5.0) g/dL
[2023-07-09 13:31] LABS: Glucose,Whole Blood 137 mg/dL (70-110)
[2023-07-09 14:37] VITALS: BP 148/86; PULSE 89; RESP 18; TEMP 97.4
== END 2023-07-09 15:18 | disposition home or self-care (01) ==
LOC: EC 12:11 → 6NMEDSUR 13:48
PROVIDERS: ADMIT Family Medicine; ATTEND Family Medicine
DX: R07.89 Other chest pain (principal); K94.23 Gastrostomy malfunction; E43 Unspecified severe protein-calorie malnutrition; E11.10 Type 2 diabetes mellitus with ketoacidosis without coma; E11.43 Type 2 diabetes mellitus with diabetic autonomic (poly)neuropathy; K31.84 Gastroparesis; E11.65 Type 2 diabetes mellitus with hyperglycemia; E86.0 Dehydration; E78.5 Hyperlipidemia, unspecified; K21.00 Gastro-esophageal reflux disease with esophagitis, without bleeding; J44.9 Chronic obstructive pulmonary disease, unspecified; M48.54XA Collapsed vertebra, not elsewhere classified, thoracic region, initial encounter for fracture; G89.29 Other chronic pain; F51.04 Psychophysiologic insomnia; R62.7 Adult failure to thrive; Z88.5 Allergy status to narcotic agent; F41.9 Anxiety disorder, unspecified; F32.A Depression, unspecified; Z68.1 Body mass index [BMI] 19.9 or less, adult; R00.0 Tachycardia, unspecified; Z79.4 Long term (current) use of insulin; Z79.51 Long term (current) use of inhaled steroids; Z79.899 Other long term (current) drug therapy; Z86.14 Personal history of Methicillin resistant Staphylococcus aureus infection; Z87.891 Personal history of nicotine dependence; Z98.51 Tubal ligation status; Z98.890 Other specified postprocedural states
CPT/HCPCS: 96376 ×5; 96361 ×6; 96374; 96375; 99285; 36415; 94640 ×6; 93306; 85379; 80053 ×3; 82009; 83690; 83735; 84484 ×2; 85025 ×3; 81001; 83036; 71046; 71250; 43246; G0378 ×6; J2405 ×4; J2001; J1170 ×6; J2704

== ENCOUNTER 2023-07-13 08:17 | Emergency (ER) | payer OTHER ==
--- NOTE | 2023-07-13 08:27 | ED ---
Chest Pain HPI - General Chief Complaint: Chest Pain Stated Complaint: Chest pains Time Seen by Provider: 07/13/23 08:18 Source: patient, EMS, RN notes reviewed Mode of arrival: EMS Limitations: no limitations - History of Present Illness Initial Comments: This is a 53 year old female who presents to the emergency department for chest pain. Patient initially states that she was woken up around 2am with sharp left sided chest pain. However, she then begins to explain that she had pain/soreness to the left side of her chest for the last couple of days. She feels like it is hard to catch her breath, however she has a hx of severe anxiety and states that she may also just be panicking. She has diabetes and severe gastroparesis requiring tube feeds, however she has no personal cardiac history. She is adopted and is unsure of any family cardiac history. Also states that she was discharged from this facility several days ago for nausea/vomiting related to the gastroparesis as well as chest pain, and was evaluated by cardiology at that time. She was experiencing the same pain then as she is now. Her J-tube was replaced on 07/09 at this facility as well due to an occlusion. MD Complaint: chest pain - Related Data Home Medications Medication Instructions Recorded Confirmed ALPRAZolam [Xanax] 0.25 mg PO BID 05/12/23 07/04/23 Atorvastatin [Lipitor] 20 mg PO DAILY 05/12/23 07/04/23 Budesonide [Pulmicort] 0.5 mg INHALATION RT-BID 05/12/23 07/04/23 DULoxetine HCL [Cymbalta] 30 mg PO DAILY 05/12/23 07/04/23 HYDROcodone/APAP 5-325MG [[place] 1 tab PO BID 05/12/23 07/04/23 5-325] Insulin Glargine,Hum.rec.anlog 3 units SQ BID 05/12/23 07/04/23 [Lantus Solostar Pen] Insulin Lispro [humaLOG Kwikpen] 2 unit SQ AC-TID 05/12/23 07/04/23 Insulin Lispro [humaLOG Kwikpen] See Protocol SQ AC-TID 05/12/23 07/04/23 Ipratropium-Albuterol Nebulize 3 ml INHALATION RT-BID 05/12/23 07/04/23 [Duoneb 0.5 mg-3 mg/3 ml Soln] Magnesium Oxide [Mag-Ox] 400 mg PO DAILY 05/12/23 07/04/23 Mirtazapine [Remeron] 30 mg PO HS 05/12/23 07/04/23 Potassium Chloride ER [K-Dur 20] 20 meq PO DAILY 05/12/23 07/04/23 Folic Acid 1 mg PO DAILY 06/15/23 07/04/23 Previous Rx's Medication Instructions Recorded Metoclopramide [Reglan] 10 mg PO ACHS 30 Days #120 tab 05/15/23 Scopolamine 1 mg/72 Hr Patch 1 patch TRANSDERM Q72H 30 Days #10 05/15/23 [TransDerm Scop] patch Pantoprazole [Protonix] 40 mg PO AC-BID 30 Days #60 tab 05/21/23 Ondansetron [Zofran] 4 mg PO DAILY 30 Days #30 tab 06/26/23 Allergies Allergy/AdvReac Type Severity Reaction Status Date / Time fentanyl Allergy Unknown Verified 07/13/23 08:23 Review of Systems ROS Statement: Those systems with pertinent positive or pertinent negative responses have been documented in the HPI. ROS Other: All systems not noted in ROS Statement are negative. 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 Date of last positivie culture/infection: 05/19/23 MDRO Source:: Urine Past Surgical History: Orthopedic Surgery, Tubal Ligation Past Anesthesia/Blood Transfusion Reactions: No Reported Reaction Additional Past Anesthesia/Blood Transfusion Reaction / Comment(s): UNK FAMILY HX Past Psychological History: Anxiety Smoking Status: Former smoker Past Alcohol Use History: None Reported Additional Past Alcohol Use History / Comment(s): STARTED SMOKING 1987 Past Drug Use History: Marijuana Additional Drug Use History / Comment(s): HAS MEDICAL MARIJUANA CARD-USES DAILY AND FREQUENTLY - Past Family History Father History Unknown: Yes Additional Family Medical History / Comment(s): unknown-adopted Mother History Unknown: Yes Additional Family Medical History / Comment(s): unknown- adopted General Exam Limitations: no limitations General appearance: alert, anxious Head exam: Present: atraumatic, normocephalic, normal inspection Respiratory exam: Present: normal lung sounds bilaterally, chest wall tenderness. Absent: respiratory distress, wheezes, rales, rhonchi, stridor Cardiovascular Exam: Present: normal rhythm, tachycardia Neurological exam: Present: alert, oriented X3, CN II-XII intact Psychiatric exam: Present: normal affect, normal mood Skin exam: Present: warm, dry, intact, normal color. Absent: rash Course Vital Signs 07/13/23 07/13/23 07/13/23 08:19 08:20 09:51 Temperature 97.6 F Pulse Rate 116 H 104 H Pulse Rate [ 105 H Palaeontologist ] Respiratory 17 20 Rate Blood Pressure 133/82 140/87 O2 Sat by Pulse 97 97 Oximetry 07/13/23 07/13/23 10:30 13:25 Temperature 98.0 F Pulse Rate 94 98 Pulse Rate [ Palaeontologist ] Respiratory 18 18 Rate Blood Pressure 142/87 136/84 O2 Sat by Pulse 98 98 Oximetry Chest Pain MDM - MDM This is a 53 year old female who presents to the emergency department for chest pain. Was pt. sent in by a medical professional or institution? @ -No Did you speak to anyone other than the patient for history? @ -No Did you review nursing and triage notes? @ -Yes, and I agree, it is accurate with regards to the patient's symptoms. Were old charts reviewed? @ -Cardiology consultation from 07/04/23 discussing that her chest was very tender to palpation, which is also the case today, and acute coronary syndrome had been ruled out and chest pain was not felt to be cardiac in nature. Echocardiogram from 07/05/23 which found no significant irregularities. Differential Diagnosis? @ -Differential Chest Pain: Stable Angina, Unstable Angina, STEMI, NSTEMI Aortic Dissection, Pneumothorax, Musculoskeletal, Esophageal Spasm GERD, Cholecystitis, Pancreatitis, Zoster, this is not meant to be an all-inclusive list. EKG interpreted by me (3pts min.)? @ -EKG interpreted by me demonstrating the following: Sinus tachycardia. Ventricular rate 123 beats per minute, TN interval 96 ms, QRS duration 68 ms, QTC 372 ms. X-rays interpreted by me (1pt min.)? @ -Chest x-ray obtained, my interpretation identifies no localized consolidations or infiltrates. CT interpreted by me (1pt min.)? @ -CTA of the chest obtained. My interpretation identifies no evidence of a pulmonary embolus. U/S interpreted by me (1pt. min.)? @ -Not obtained What testing was considered but not performed? (CT, X-rays, U/S, labs)? Why? @ -None What meds were considered but not given? Why? @ -None Did you discuss the management of the patient with other professionals? @ -Yes, Dr. Pike, who advised that if this is the same pain and is suspected to be musculoskeletal, she would not necessarily benefit from admission, as she had just been evaluated by cardiology. Did you reconcile home meds? @ -No Was smoking cessation discussed for >3mins.? @ -I discussed smoking cessation for greater than 3 minutes. The risk of smoking were discussed with the patient including but not limited to risks of cancer, stroke, coronary artery disease and COPD. Also discussed with patient were multiple methods of quitting smoking. Lastly we discussed the financial cost of smoking. Was critical care preformed (if so, how long)? @ -No Were there social determinants of health that impacted care today? How? (Homelessness, low income, unemployed, alcoholism, drug addiction, transportation, low edu. Level, literacy, decrease access to med. care, senior living, rehab)? @ -No Was there de-escalation of care discussed even if they declined? (Discuss DNR or withdrawal of care, Hospice)? @ -No What co-morbidities impacted this encounter? (DM, HTN, Smoking, COPD, CAD, Cancer, CVA, Hep., AIDS, mental health diagnosis, sleep apnea, morbid obesity)? @ -DM, gastroparesis, smoking Was patient admitted / discharged? @ -Discharged. Lab work obtained revealing hyperglycemia with a glucose of 365, however patient admits to not yet taking her insulin this morning. She also has signs of dehydration and a mildly elevated d-dimer of 0.65. This may be due to the patient's recent procedure on 07/09, however due to her symptoms and tachycardia, CTA of the chest was obtained. CTA reveals no evidence of a pulmonary embolus. Chest x-ray obtained prior also revealed no acute findings. Troponin negative. 5 units of regular insulin administered for the hyperglycemia and she was also given a liter bolus of IV fluids for dehydration. Case discussed with Dr. Pike, who advised that if this is the same pain that she had during her admission a week ago and it is suspected to be musculoskeletal, she likely would not benefit from admission due to recent cardiology evaluation and echocardiogram. Discussed with the patient that in light of recent cardiology evaluation and symptoms being the same, she would not necessarily benefit from admission. I offered to obtained a second troponin, and the patient was in agreement with this plan. Second troponin obtained and found to be negative. Pain is suspected to be musculoskeletal given how significant the reproducibility is along with the duration and recent negative cardiac workup. Patient discharged home in stable condition and advised follow-up with her primary care provider. Undiagnosed new problem with uncertain prognosis? @ -None Drug Therapy requiring intensive monitoring for toxicity (Heparin, Nitro, Insulin, Cardizem)? @ -None Were any procedures done? @ -None Diagnosis/symptom? @ -Chest pain Acute, or Chronic, or Acute on Chronic? @ -Acute Uncomplicated (without systemic symptoms) or Complicated (systemic symptoms)? @ -Uncomplicated Side effects of treatment? @ -None Exacerbation, Progression, or Severe Exacerbation] @ -Not applicable Poses a threat to life or bodily function? @ -Unlikely Return precautions reviewed in depth, the patient is instructed to return to the emergency department with any new, worsening, or concerning symptoms. Patient verbalized understanding. This case was discussed in detail with the attending ED physician, Dr. Lentz. Presentation, findings, and treatment plan discussed in detail as well. Disposition Clinical Impression: Nicotine dependence, Chest pain Disposition: HOME SELF-CARE Instructions (If sedation given, give patient instructions): Chest Pain (ED) Additional Instructions: Return to the emergency department with any new, worsening, or concerning symptoms. Follow up with your primary care provider in 1-2 days. Is patient prescribed a controlled substance at d/c from ED?: No Referrals: Dell Pike MD [Primary Care Provider] - 1-2 days Time of Disposition: 12:27
[2023-07-13] MEDS ORDERED: LORazepam 2 MG/ML INJ IV STA (08:28)
[2023-07-13] MEDS ORDERED: MORPHINE SULFATE 2 MG/ML SYRINGE IVP STA (08:28)
[2023-07-13] MEDS ORDERED: KETOROLAC 15 MG/ML 1 ML VIAL IVP STA ×2 (08:28→12:38)
[2023-07-13 08:47] LABS: Basophils % (A) 1 %; Eosinophils # (A) 0.1 k/uL (0-0.7); Eosinophils % (A) 1 %; HCT 32.7 % (34.0-46.0); HGB 10.3 gm/dL (11.4-16.0); Hypochromasia Moderate; Lymphocytes # (A) 1.9 k/uL (1.0-4.8); Lymphocytes % (A) 22 %; MCH 28.2 pg (25.0-35.0); MCHC 31.4 g/dL (31.0-37.0); MCV 89.7 fL (80.0-100.0); Mean Platelet Volume 7.5; Monocytes # (A) 0.4 k/uL (0-1.0); Monocytes % (A) 5 %; Neutrophils # (A) 5.9 k/uL (1.3-7.7); Neutrophils % (A) 70 %; Platelet Count 459 k/uL (150-450); RBC 3.64 m/uL (3.80-5.40); RDW 15.9 % (11.5-15.5); WBC 8.5 k/uL (3.8-10.6)
[2023-07-13 09:01] LABS: ALT 18 U/L (4-34); AST 20 U/L (14-36); African American GFR (CKD) >90 (>60 ml/min/1.73 sqM); Albumin 2.9 g/dL (3.5-5.0); Alkaline Phosphatase 105 U/L (38-126); Anion Gap 2 mmol/L; Blood Urea Nitrogen 23 mg/dL (7-17); Calcium 8.7 mg/dL (8.4-10.2); Carbon Dioxide 29 mmol/L (22-30); Chloride 103 mmol/L (98-107); Glucose 357 mg/dL (74-99); Magnesium 1.8 mg/dL (1.6-2.3); Non-African American GFR(CKD) >90 (>60 ml/min/1.73 sqM); Potassium 4.9 mmol/L (3.5-5.1); Sodium 134 mmol/L (137-145); Total Bilirubin 0.2 mg/dL (0.2-1.3); Total Protein 6.2 g/dL (6.3-8.2)
[2023-07-13 09:03] LABS: INR 0.8 (<1.2); Partial Thromboplastin Time 24.3 sec (22.0-30.0); Prothrombin Time 9.4 sec (10.0-12.5)
[2023-07-13] MEDS ORDERED: INSULIN REGULAR 100 UNIT/ML VIAL (IV) IV ONE (09:07)
[2023-07-13] MEDS ORDERED: SODIUM CHLORIDE 0.9% 1,000 ML IV STA (09:11)
--- NOTE | 2023-07-13 09:14 | XR ---
EXAMINATION TYPE: XR chest 2V DATE OF EXAM: 07/13/2023 COMPARISON: 07/04/2023, CT chest 07/05/2023 INDICATION: Chest pain TECHNIQUE: Frontal and lateral views of the chest are obtained. FINDINGS: The heart size is normal. The pulmonary vasculature is normal. No suspicious focal consolidations are evident There is a 1.5 cm area of increased density near the left heart border present previously. This may r epresent a nipple shadow. IMPRESSION: 1. No acute pulmonary process.
--- NOTE | 2023-07-13 09:38 | CT ---
CTA CHEST EXAMINATION TYPE: CT chest angio for PE DATE OF EXAM: 07/13/2023 INDICATION: Chest pain, tachycardia, elevated d-dimer CT DLP: 161.3 mGycm, Automated exposure control for dose reduction was used. CONTRAST: Patient injected with 80ml mL of Isovue 370. COMPARISON: 07/05/2023 TECHNIQUE: CT of the chest is performed on a spiral scan at 2 mm thick sections. Study is performed with intravenous contrast timed for evaluation for pulmonary embolism. This will limit additional po rtions of the evaluation. 3-D MIP images reconstructed by the technologist are reviewed on the compu ter in the coronal and sagittal planes. FINDINGS: No persistent filling defects are evident to suggest an acute pulmonary embolism. No mediastinal or hilar adenopathy enlarged by CT criteria is evident. The ascending aorta diameter at the level of the main pulmonary artery is 2.4 cm. The main pulmonary artery diameter at the bifurcation is 2.3 cm. Small nonrefluxing of the superior inferior cava is p resent Lung windows are clear. Limited CT sections were through the upper abdomen. The esophagus has an air-fluid level. No definit e wall thickening is evident. Small hiatal hernia may be present. IMPRESSION: 1. No acute pulmonary embolism. 2. Somewhat prominent esophagus. Evaluation of the esophagus when the patient is stable can be perfor med.
[2023-07-13] MEDS ORDERED: LIDOCAINE 4% PATCH TOPICAL ONE (10:20)
[2023-07-13] MEDS ORDERED: HYDROmorphone 1 MG/ML 1 ML SYRINGE IVP STA (10:20)
[2023-07-13] MEDS ORDERED: ORPHENADRINE 30 MG/ML 2 ML VIAL IVP STA (12:38)
[2023-07-13 13:35] VITALS: BP 136/84; PULSE 105; RESP 18; TEMP 98
== END 2023-07-13 13:25 | disposition home or self-care (01) ==
LOC: EC 08:17
DX: R07.89 Other chest pain (principal); F17.200 Nicotine dependence, unspecified, uncomplicated; E11.43 Type 2 diabetes mellitus with diabetic autonomic (poly)neuropathy; F41.9 Anxiety disorder, unspecified; F12.90 Cannabis use, unspecified, uncomplicated; Z79.4 Long term (current) use of insulin; Z79.51 Long term (current) use of inhaled steroids; Z79.899 Other long term (current) drug therapy; Z88.8 Allergy status to other drugs, medicaments and biological substances
CPT/HCPCS: 36415; 93005; 85379; 80053; 82009; 83735; 84484; 85025; 85610; 85730; 71046; 71275; 99285; 96374; 96375 ×3; 96376; 96361; J2060; J2360; J2270; J1170; J1885; Q9967

== ENCOUNTER 2023-07-15 11:16 | Inpatient (IN) | payer OTHER ==
[2023-07-15 13:43] LABS: Appearance,Urine Clear (Clear); Bilirubin,Urine Negative (Negative); Blood,Urine Negative (Negative); Color,Urine Colorless; Glucose,Urine (UA) 4+ (Negative); Hyaline Casts,Urine 1 /lpf (0-2); Ketones,Urine Trace (Negative); Leukocyte Esterase,Urine Negative (Negative); Mucus,Urine Rare /hpf; Nitrite,Urine Negative (Negative); PH, Urine 7.5 (5.0-8.0); Protein,Urine 3+ (Negative); RBC,Urine 2 /hpf (0-5); Squamous Epithelial Cell,Urine <1 /hpf (0-4); Urobilinogen,Urine <2.0 mg/dL (<2.0); WBC,Urine 1 /hpf (0-5)
[2023-07-15] MEDS: SODIUM CHLORIDE 0.9% 1,000 ML IV STA (13:47)
[2023-07-15] MEDS: SODIUM CHLORIDE 0.9% 500 ML 500 ML IV STA (13:47)
[2023-07-15] MEDS: ONDANSETRON 4 MG/2 ML VIAL IVP STA ×2 (13:48→17:33)
[2023-07-15] MEDS: MORPHINE SULFATE 2 MG/ML SYRINGE IVP ONE ×2 (13:56→15:55)
[2023-07-15 14:55] LABS: Anisocytosis Slight; Basophils # (A) 0.1 k/uL (0-0.2); Basophils % (A) 1 %; Eosinophils # (A) 0.1 k/uL (0-0.7); Eosinophils % (A) 0 %; HGB 10.3 gm/dL (11.4-16.0); Hypochromasia Slight; Lymphocytes # (A) 1.7 k/uL (1.0-4.8); Lymphocytes % (A) 13 %; MCH 28.2 pg (25.0-35.0); MCHC 32.1 g/dL (31.0-37.0); MCV 87.7 fL (80.0-100.0); Mean Platelet Volume 7.5; Monocytes # (A) 0.5 k/uL (0-1.0); Monocytes % (A) 4 %; Neutrophils # (A) 10.7 k/uL (1.3-7.7); Neutrophils % (A) 82 %; Platelet Count 515 k/uL (150-450); RBC 3.65 m/uL (3.80-5.40); RDW 16.2 % (11.5-15.5); WBC 13.1 k/uL (3.8-10.6)
--- NOTE | 2023-07-15 15:39 | ED ---
General Adult HPI - General Source: patient, RN notes reviewed Mode of arrival: ambulatory Limitations: no limitations <Malini Castro - Last Filed: 07/15/23 18:48> <Rei Rodriguez - Last Filed: 07/19/23 20:02> - General Chief complaint: Nausea/Vomiting/Diarrhea Stated complaint: abd pain Time Seen by Provider: 07/15/23 12:38 - History of Present Illness Initial comments: 53-year-old female presents to the emergency department for evaluation of abdominal pain x 2 days. Patient has a history of type 2 diabetes, severe gastroparesis. She reports abdominal pain characteristic of her gastroparesis with associated nausea and vomiting. Last bowel movement today and was normal for the patient. She is passing flatus. She has been admitted to our facility multiple times for this issue. She has a J-tube in place which she utilizes for nutrition. She also admits to receiving oral intake. She reports that she is scheduled for a gastric stimulator at [facility] on 08/02/23. She is unaware of the name of the doctor who will be doing the procedure. Denies recent fever. (Malini Castro) This is a 53-year-old female to the ER for evaluation today. Patient presents today for abdominal pain, patient has been in our emergency department for 4 days without inpatient management, patient was to be transferred to [facility] but at this time [facility] in [place] is denying that transfer (Rei Rodriguez) - Related Data Home Medications Medication Instructions Recorded Confirmed ALPRAZolam [Xanax] 0.25 mg PO BID PRN 05/12/23 07/16/23 Atorvastatin [Lipitor] 20 mg PO DAILY 05/12/23 07/16/23 DULoxetine HCL [Cymbalta] 30 mg PO DAILY 05/12/23 07/16/23 HYDROcodone/APAP 5-325MG [[place] 1 tab PO BID 05/12/23 07/16/23 5-325] Insulin Glargine,Hum.rec.anlog 3 units SQ BID 05/12/23 07/16/23 [Lantus Solostar Pen] Insulin Lispro [humaLOG Kwikpen] 2 unit SQ AC-TID 05/12/23 07/16/23 Insulin Lispro [humaLOG Kwikpen] See Protocol SQ AC-TID 05/12/23 07/16/23 Ipratropium-Albuterol Nebulize 3 ml INHALATION RT-BID 05/12/23 07/16/23 [Duoneb 0.5 mg-3 mg/3 ml Soln] Magnesium Oxide [Mag-Ox] 400 mg PO DAILY 05/12/23 07/16/23 Mirtazapine [Remeron] 30 mg PO HS 05/12/23 07/16/23 Potassium Chloride ER [K-Dur 20] 20 meq PO DAILY 05/12/23 07/16/23 Folic Acid 1 mg PO DAILY 06/15/23 07/16/23 Previous Rx's Medication Instructions Recorded Metoclopramide [Reglan] 10 mg PO ACHS 30 Days #120 tab 05/15/23 Pantoprazole [Protonix] 40 mg PO AC-BID 30 Days #60 tab 05/21/23 Ondansetron [Zofran] 4 mg PO DAILY 30 Days #30 tab 06/26/23 Allergies Allergy/AdvReac Type Severity Reaction Status Date / Time fentanyl Allergy Unknown Verified 07/16/23 13:32 Review of Systems ROS Other: All systems not noted in ROS Statement are negative. <Malini Castro - Last Filed: 07/15/23 18:48> ROS Other: All systems not noted in ROS Statement are negative. <Rei Rodriguez - Last Filed: 07/19/23 20:02> ROS Statement: Those systems with pertinent positive or pertinent negative responses have been documented in the HPI. 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 Date of last positivie culture/infection: 05/19/23 MDRO Source:: Urine Past Surgical History: Orthopedic Surgery, Tubal Ligation Past Anesthesia/Blood Transfusion Reactions: No Reported Reaction Additional Past Anesthesia/Blood Transfusion Reaction / Comment(s): UNK FAMILY HX Past Psychological History: Anxiety Smoking Status: Former smoker Past Alcohol Use History: None Reported Past Drug Use History: Marijuana - Past Family History Father History Unknown: Yes Additional Family Medical History / Comment(s): unknown-adopted Mother History Unknown: Yes Additional Family Medical History / Comment(s): unknown- adopted <Malini Castro - Last Filed: 07/15/23 18:48> General Exam Limitations: no limitations General appearance: alert, in no apparent distress Head exam: Present: atraumatic, normocephalic, normal inspection Eye exam: Present: normal appearance, PERRL, EOMI. Absent: scleral icterus, conjunctival injection, periorbital swelling ENT exam: Present: mucous membranes dry Neck exam: Present: normal inspection. Absent: tenderness, meningismus, lymphadenopathy Respiratory exam: Present: normal lung sounds bilaterally. Absent: respiratory distress, wheezes, rales, rhonchi, stridor Cardiovascular Exam: Present: normal rhythm, tachycardia, normal heart sounds. Absent: systolic murmur, diastolic murmur, rubs, gallop, clicks GI/Abdominal exam: Present: tenderness, guarding (self ), hypoactive bowel sounds. Absent: distended, rebound, rigid Extremities exam: Present: normal inspection, full ROM, normal capillary refill. Absent: tenderness, pedal edema, joint swelling, calf tenderness Back exam: Present: normal inspection Neurological exam: Present: alert, oriented X3 Psychiatric exam: Present: normal affect, normal mood Skin exam: Present: warm, dry, intact, normal color. Absent: rash <Malini Castro - Last Filed: 07/15/23 18:48> General appearance: alert, in no apparent distress Head exam: Present: atraumatic, normocephalic, normal inspection Eye exam: Present: normal appearance, PERRL, EOMI. Absent: scleral icterus, conjunctival injection, periorbital swelling ENT exam: Present: normal exam, mucous membranes moist Neck exam: Present: normal inspection. Absent: tenderness, meningismus, lymphadenopathy Respiratory exam: Present: normal lung sounds bilaterally. Absent: respiratory distress, wheezes, rales, rhonchi, stridor Cardiovascular Exam: Present: regular rate, normal rhythm, normal heart sounds. Absent: systolic murmur, diastolic murmur, rubs, gallop, clicks GI/Abdominal exam: Present: soft, normal bowel sounds. Absent: distended, tenderness, guarding, rebound, rigid Extremities exam: Present: normal inspection, full ROM, normal capillary refill. Absent: tenderness, pedal edema, joint swelling, calf tenderness Back exam: Present: normal inspection Neurological exam: Present: alert, oriented X3, CN II-XII intact Psychiatric exam: Present: normal affect, normal mood Skin exam: Present: warm, dry, intact, normal color. Absent: rash <Rei Rodriguez - Last Filed: 07/19/23 20:02> Course <Rei Rodriguez - Last Filed: 07/19/23 20:02> Vital Signs 07/15/23 07/15/23 07/15/23 11:39 13:54 15:49 Temperature 98.2 F Pulse Rate 84 123 H 116 H Respiratory 22 18 20 Rate Blood Pressure 100/74 145/85 168/93 O2 Sat by Pulse 97 100 98 Oximetry 07/15/23 07/15/23 07/15/23 16:49 18:56 23:00 Temperature 98.0 F 97.5 F L Pulse Rate 114 H 102 H 85 Respiratory 18 16 16 Rate Blood Pressure 128/80 139/91 124/78 O2 Sat by Pulse 97 98 94 L Oximetry 07/16/23 07/16/23 07/16/23 02:00 06:04 08:36 Temperature 97.7 F Pulse Rate 104 H 115 H 117 H Respiratory 16 20 18 Rate Blood Pressure 123/87 136/93 150/78 O2 Sat by Pulse 97 99 97 Oximetry 07/16/23 07/16/23 07/16/23 09:47 14:07 14:31 Temperature Pulse Rate 114 H 111 H Respiratory 18 18 Rate Blood Pressure 158/99 175/110 144/134 O2 Sat by Pulse 98 95 Oximetry 07/16/23 07/16/23 07/16/23 14:45 15:00 15:15 Temperature Pulse Rate 113 H 116 H Respiratory 18 Rate Blood Pressure 165/95 165/95 161/102 O2 Sat by Pulse 99 97 98 Oximetry 07/16/23 07/16/23 07/16/23 15:30 16:00 16:30 Temperature Pulse Rate Respiratory Rate Blood Pressure 161/102 152/94 156/90 O2 Sat by Pulse 97 99 98 Oximetry 07/16/23 07/16/23 07/16/23 17:00 17:30 18:00 Temperature Pulse Rate 116 H Respiratory 18 Rate Blood Pressure 148/96 158/94 158/89 O2 Sat by Pulse 99 98 97 Oximetry 07/16/23 07/16/23 07/17/23 18:30 19:00 00:28 Temperature Pulse Rate 114 H 105 H Respiratory 17 16 Rate Blood Pressure 118/71 156/93 139/87 O2 Sat by Pulse 98 100 96 Oximetry 07/17/23 07/17/23 07/17/23 04:43 06:08 07:37 Temperature Pulse Rate 112 H 112 H 111 H Respiratory 16 14 18 Rate Blood Pressure 158/95 167/111 162/100 O2 Sat by Pulse 97 98 94 L Oximetry 07/17/23 07/17/23 07/17/23 08:00 13:30 15:02 Temperature Pulse Rate 111 H 117 H 111 H Respiratory 18 20 Rate Blood Pressure 144/92 155/123 165/92 O2 Sat by Pulse 95 98 Oximetry 07/17/23 07/17/23 07/17/23 15:22 17:14 23:00 Temperature Pulse Rate 109 H 114 H 117 H Respiratory 16 16 18 Rate Blood Pressure 149/90 159/98 132/83 O2 Sat by Pulse 98 97 97 Oximetry 07/18/23 07/18/23 07/18/23 01:30 04:30 06:00 Temperature Pulse Rate 112 H 111 H 114 H Respiratory 18 18 18 Rate Blood Pressure 124/81 159/97 163/97 O2 Sat by Pulse 98 98 98 Oximetry 07/18/23 07/18/23 07/18/23 08:50 11:00 12:45 Temperature 98.1 F Pulse Rate 111 H 112 H 117 H Respiratory 20 20 20 Rate Blood Pressure 149/90 159/100 171/97 O2 Sat by Pulse 97 99 95 Oximetry 07/18/23 07/18/23 07/18/23 13:43 15:03 16:35 Temperature 98.7 F Pulse Rate 117 H 114 H 117 H Respiratory 20 18 18 Rate Blood Pressure 177/109 163/105 165/97 O2 Sat by Pulse 96 95 96 Oximetry 07/18/23 07/18/23 07/18/23 17:20 18:04 19:29 Temperature 98.6 F Pulse Rate 110 H 111 H 110 H Respiratory 19 18 16 Rate Blood Pressure 151/97 138/94 145/88 O2 Sat by Pulse 96 96 99 Oximetry 07/18/23 07/18/23 07/19/23 22:34 23:46 01:16 Temperature Pulse Rate 109 H 109 H 110 H Respiratory 16 16 16 Rate Blood Pressure 126/86 134/87 138/81 O2 Sat by Pulse 98 98 98 Oximetry 07/19/23 07/19/23 07/19/23 02:48 03:36 03:57 Temperature Pulse Rate 107 H 112 H Respiratory 16 16 16 Rate Blood Pressure 141/83 140/85 O2 Sat by Pulse 97 96 Oximetry 07/19/23 07/19/23 07/19/23 04:00 05:00 06:40 Temperature Pulse Rate 65 75 112 H Respiratory 14 16 15 Rate Blood Pressure 140/85 132/76 165/104 O2 Sat by Pulse 96 98 96 Oximetry 07/19/23 07/19/23 07/19/23 09:00 10:00 10:19 Temperature Pulse Rate 117 H 119 H 122 H Respiratory 18 20 18 Rate Blood Pressure 148/99 158/88 O2 Sat by Pulse 98 99 Oximetry 07/19/23 07/19/23 07/19/23 10:26 12:33 14:30 Temperature 98.4 F Pulse Rate 122 H 124 H 121 H Respiratory 16 18 18 Rate Blood Pressure 152/109 129/83 O2 Sat by Pulse 97 99 Oximetry 07/19/23 07/19/23 07/19/23 15:48 17:19 19:08 Temperature 97.8 F Pulse Rate 119 H 107 H 120 H Respiratory 18 18 18 Rate Blood Pressure 139/88 120/71 130/86 O2 Sat by Pulse 97 95 95 Oximetry 07/19/23 19:48 Temperature Pulse Rate 88 Respiratory Rate Blood Pressure O2 Sat by Pulse Oximetry - Reevaluation(s) Reevaluation #1: 07/19/23 19:59 Medical records reviewed (Rei Rodriguez) Reevaluation #2: 07/19/23 19:59 Patient was not accepted as a transfer to [facility] (Che Rodriguez) Reevaluation #3: 07/19/23 19:59 Patient informed of results and questions answered (Rei Rodriguez) Reevaluation #4: 07/19/23 19:59 Was pt. sent in by a medical professional or institution (, PA, FIRST AID TEACHER, urgent care, hospital, or [place]...) When possible be specific @ -no Did you speak to anyone other than the patient for history (EMS, parent, family, police, friend...)? What history was obtained from this source @ -no Did you review nursing and triage notes (agree or disagree)? Why? @ -agree Are old charts reviewed (outside hosp., previous admission, EMS record, old EKG, old radiological studies, urgent care reports/EKG's, [place] records)? Report findings @ -yes Differential Diagnosis (chest pain, altered mental status, abdominal pain women, abdominal pain men, vaginal bleeding, weakness, fever, dyspnea, syncope, headache, dizziness, GI bleed, back pain, seizure, CVA, palpatations, mental health, musculoskeletal)? @ -prior EKG interpreted by me (3pts min.). @ -yes X-rays interpreted by me (1pt min.). @ -yes negative for acute disease CT interpreted by me (1pt min.). @ -no U/S interpreted by me (1pt. min.). @ -no What testing was considered but not performed or refused? (CT, X-rays, U/S, labs)? Why? @ -none What meds were considered but not given or refused? Why? @ -none Did you discuss the management of the patient with other professionals (professionals i.e. , PA, FIRST AID TEACHER, lab, RT, psych nurse, older adult social work specialist, well treatment offsider, teacher, small business banking officer, caser in)? Give summary @ -no Was smoking cessation discussed for >3mins.? @ -no Was critical care preformed (if so, how long)? @ -no Were there social determinants of health that impacted care today? How? (Homelessness, low income, unemployed, alcoholism, drug addiction, transportation, low edu. Level, literacy, decrease access to med. care, usp, rehab)? @ -none Was there de-escalation of care discussed even if they declined (Discuss DNR or withdrawal of care, Hospice)? DNR status @ -no What co-morbidities impacted this encounter? (DM, HTN, Smoking, COPD, CAD, Cancer, CVA, ARF, Chemo, Hep., AIDS, mental health diagnosis, sleep apnea, morbid obesity)? @ -none Was patient admitted / discharged? Hospital course, mention meds given and route, prescriptions, significant lab abnormalities, going to OR and other pertinent info. @ - Undiagnosed new problem with uncertain prognosis? @ -no Drug Therapy requiring intensive monitoring for toxicity (Heparin, Nitro, Insulin, Cardizem)? @ -no Were any procedures done? @ -no Diagnosis/symptom? @ - Acute, or Chronic, or Acute on Chronic? @ -Acute Uncomplicated (without systemic symptoms) or Complicated (systemic symptoms)? @ -Complicated Side effects of treatment? @ -no Exacerbation, Progression, or Severe Exacerbation? @ -exacerbation Poses a threat to life or bodily function? How? (Chest pain, [place], [place], pneumonia, PE, COPD, DKA, ARF, appy, cholecystitis, CVA, Diverticulitis, Homicidal, Suicidal, threat to staff... and all critical care pts) @ -yes (Rei Rodriguez) - Consultations Consultation #1: Spoke with Dr. Pike who agrees to admit this patient (Rei Rodriguez) EKG Findings - EKG Comments: EKG Findings:: EKG is sinus tachycardia 113 [place] 160 QRS 82 QTc 392 <Rei Rodriguez - Last Filed: 07/19/23 20:02> Medical Decision Making - Lab Data Result diagrams: 07/15/23 12:54 07/15/23 14:59 <Malini Castro - Last Filed: 07/15/23 18:48> - Lab Data Result diagrams: 07/19/23 18:53 07/19/23 18:53 <Rei Rodriguez - Last Filed: 07/19/23 20:02> - Medical Decision Making Was pt. sent in by a medical professional or institution (, PA, FIRST AID TEACHER, urgent care, hospital, or [place]...) When possible be specific @ -No Did you speak to anyone other than the patient for history (EMS, parent, family, police, friend...)? What history was obtained from this source @ -No Did you review nursing and triage notes (agree or disagree)? Why? @ -I reviewed and agree with nursing and triage notes Were old charts reviewed (outside hosp., previous admission, EMS record, old EKG, old radiological studies, urgent care reports/EKG's, [place] records)? Report findings @ -Charts from prior visit with discharge last week were reviewed Differential Diagnosis (chest pain, altered mental status, abdominal pain women, abdominal pain men, vaginal bleeding, weakness, fever, dyspnea, syncope, headache, dizziness, GI bleed, back pain, seizure, CVA, palpatations, mental health, musculoskeletal)? @ -Differential Abdominal Pain Women: Appendicitis, Cholecystitis, diverticulosis, ischemic bowel, pancreatitis, hepatitis, UTI, gastroenteritis, AAA, incarcerated hernia, bowel obstruction, constipation, inflammatory bowel, hepatitis, peptic ulcer disease, splenic infarction, perforated viscus, vulvitis, ovarian torsion, PID, kidney stone, placenta abruption, this is not meant to be an all-inclusive list EKG interpreted by me (3pts min.). @ -None X-rays interpreted by me (1pt min.). @ -None done CT interpreted by me (1pt min.). @ -None done U/S interpreted by me (1pt. min.). @ -None done What testing was considered but not performed or refused? (CT, X-rays, U/S, labs)? Why? @ -Abdominal imaging was considered, patient has symptoms of her gastroparesis which is chronic What meds were considered but not given or refused? Why? @ -None Did you discuss the management of the patient with other professionals (professionals i.e. DrLisa, PA, FIRST AID TEACHER, lab, RT, psych nurse, older adult social work specialist, well treatment offsider, teacher, small business banking officer, caser in)? Give summary @ -Initial discussed with Dr. Dell Pike who states the patient is scheduled for gastric stimulator at [facility] in the upcoming 1-2 weeks. He would like patient to go to [facility] is possible for this procedure. Case was discussed with [facility] transfer center. Discussed reason for transfe r. Patient was accepted for transfer by Dr. Shante Degroot. Patient will board in our ED while awaiting a room. Was smoking cessation discussed for >3mins.? @ -No Was critical care preformed (if so, how long)? @ -No Were there social determinants of health that impacted care today? How? (Homelessness, low income, unemployed, alcoholism, drug addiction, transportation, low edu. Level, literacy, decrease access to med. care, usp, rehab)? @ -No Was there de-escalation of care discussed even if they declined (Discuss DNR or withdrawal of care, Hospice)? DNR status @ -No What co-morbidities impacted this encounter? (DM, HTN, Smoking, COPD, CAD, Cancer, CVA, ARF, Chemo, Hep., AIDS, mental health diagnosis, sleep apnea, morbid obesity)? @ -Diabetes mellitus, severe gastroparesis Was patient admitted / discharged? Hospital course, mention meds given and route, prescriptions, significant lab abnormalities, going to OR and other pertinent info. @ -Patient presented to the emergency department for her gastroparesis symptoms. She reports that they have been worse today including abdominal pain with nausea and vomiting. Patient does have a J-tube in place which she has been utilizing along with oral intake. She has not been able to handle any new intake today. Patient reports a normal bowel movement this morning. Laboratory studies obtained. WBC 13.1 likely reactive to recurrent vomiting; hemoglobin 10.3 which is stable for the patient; CMP shows sodium 133, potassium 3.9, blood glucose 305, lipase 168; UA shows 3+ protein, 4+ glucose, trace ketones; acetone negative; COVID, influenza, RSV negative. Abdominal and imaging was considered. Patient states that this is the same pain that she has experienced in the past due to her gastroparesis. Initially in our ED patient received 1.5L of NS, 2 mg of morphine and 4 mg of Zofran; patient reported continued symptoms and was then given 10 mg of Reglan and another 2 mg of morphine. Symptoms persisted and patient then received 1 mg of Dilaudid and 4 mg of Zofran. Case was discussed with the patient's primary care provider, Dr. Dell Pike, reports that the patient is scheduled for gastric stimulator at [facility] this upcoming month. Patient reports this is scheduled for 08/02/23 with unknown physician. Because of this, he would like the patient to be transferred to [facility] if possible. Case discussed with [facility] transfer center and Dr. Abdul who is accepting of the transfer. Patient will board in our ED pending bed at [facility]. Undiagnosed new problem with uncertain prognosis? @ -No Drug Therapy requiring intensive monitoring for toxicity (Heparin, Nitro, Insulin, Cardizem)? @ -No Were any procedures done? @ -No Diagnosis/symptom? @ -Gastroparesis, intractable nausea and vomiting Acute, or Chronic, or Acute on Chronic? @ -Acute on chronic Uncomplicated (without systemic symptoms) or Complicated (systemic symptoms)? @ -Uncomplicated Side effects of treatment? @ -No Exacerbation, Progression, or Severe Exacerbation? @ -No Poses a threat to life or bodily function? How? (Chest pain, [place], [place], pneumonia, PE, COPD, DKA, ARF, appy, cholecystitis, CVA, Diverticulitis, Homicidal, Suic idal, threat to staff... and all critical care pts) @ -Mild (Malini Castro) - Lab Data Lab Results 07/15/23 07/15/23 07/15/23 Range/Units 12:54 12:54 12:54 WBC 13.1 H (3.8-10.6) k/uL RBC 3.65 L (3.80-5.40) m/uL Hgb 10.3 L (11.4-16.0) gm/dL Hct 32.0 L (34.0-46.0) % MCV 87.7 (80.0-100.0) fL MCH 28.2 (25.0-35.0) pg MCHC 32.1 (31.0-37.0) g/dL RDW 16.2 H (11.5-15.5) % Plt Count 515 H (150-450) k/uL MPV 7.5 Neutrophils % 82 % Lymphocytes % 13 % Monocytes % 4 % Eosinophils % 0 % Basophils % 1 % Neutrophils # 10.7 H (1.3-7.7) k/uL Lymphocytes # 1.7 (1.0-4.8) k/uL Monocytes # 0.5 (0-1.0) k/uL Eosinophils # 0.1 (0-0.7) k/uL Basophils # 0.1 (0-0.2) k/uL Hypochromasia Slight Anisocytosis Slight Sodium (137-145) mmol/L Potassium (3.5-5.1) mmol/L Chloride (98-107) mmol/L Carbon Dioxide (22-30) mmol/L Anion Gap mmol/L BUN (7-17) mg/dL Creatinine (0.52-1.04) mg/dL Est GFR (CKD-EPI)AfAm (>60 ml/min/1.73 sqM) Est GFR (CKD-EPI)NonAf (>60 ml/min/1.73 sqM) Glucose (74-99) mg/dL POC Glucose (mg/dL) (70-110) mg/dL POC Glu Car Cleaning Supervisor ID Calcium (8.4-10.2) mg/dL Total Bilirubin (0.2-1.3) mg/dL AST (14-36) U/L ALT (4-34) U/L Alkaline Phosphatase (38-126) U/L Total Protein (6.3-8.2) g/dL Albumin (3.5-5.0) g/dL Lipase (23-300) U/L Urine Color Colorless Urine Appearance Clear (Clear) Urine pH 7.5 (5.0-8.0) Ur Specific [place] 1.030 (1.001-1.035) Urine Protein 3+ H (Negative) Urine Glucose (UA) 4+ H (Negative) Urine Ketones Trace H (Negative) Urine Blood Negative (Negative) Urine Nitrite Negative (Negative) Urine Bilirubin Negative (Negative) Urine Urobilinogen <2.0 (<2.0) mg/dL Ur Leukocyte Esterase Negative (Negative) Urine RBC 2 (0-5) /hpf Urine WBC 1 (0-5) /hpf Ur Squamous Epith Cells <1 (0-4) /hpf Hyaline Casts 1 (0-2) /lpf Urine Mucus Rare H (None) /hpf Acetone, Qual (Negative) Influenza Type A (PCR) Not Detected (Not Detectd) Influenza Type B (PCR) Not Detected (Not Detectd) RSV (PCR) Not Detected (Not Detectd) SARS-CoV-2 (PCR) Not Detected (Not Detectd) 07/15/23 07/16/23 07/16/23 Range/Units 14:59 02:38 23:43 WBC (3.8-10.6) k/uL RBC (3.80-5.40) m/uL Hgb (11.4-16.0) gm/dL Hct (34.0-46.0) % MCV (80.0-100.0) fL MCH (25.0-35.0) pg MCHC (31.0-37.0) g/dL RDW (11.5-15.5) % Plt Count (150-450) k/uL MPV Neutrophils % % Lymphocytes % % Monocytes % % Eosinophils % % Basophils % % Neutrophils # (1.3-7.7) k/uL Lymphocytes # (1.0-4.8) k/uL Monocytes # (0-1.0) k/uL Eosinophils # (0-0.7) k/uL Basophils # (0-0.2) k/uL Hypochromasia Anisocytosis Sodium 133 L (137-145) mmol/L Potassium 3.9 (3.5-5.1) mmol/L Chloride 99 (98-107) mmol/L Carbon Dioxide 31 H (22-30) mmol/L Anion Gap 3 mmol/L BUN 21 H (7-17) mg/dL Creatinine 0.32 L (0.52-1.04) mg/dL Est GFR (CKD-EPI)AfAm >90 (>60 ml/min/1.73 sqM) Est GFR (CKD-EPI)NonAf >90 (>60 ml/min/1.73 sqM) Glucose 305 H (74-99) mg/dL POC Glucose (mg/dL) 285 H 230 H (70-110) mg/dL POC Glu Car Cleaning Supervisor ID Lydia Cuellar Brooke Calcium 7.8 L (8.4-10.2) mg/dL Total Bilirubin 0.2 (0.2-1.3) mg/dL AST 20 (14-36) U/L ALT 19 (4-34) U/L Alkaline Phosphatase 103 (38-126) U/L Total Protein 6.1 L (6.3-8.2) g/dL Albumin 3.0 L (3.5-5.0) g/dL Lipase 168 (23-300) U/L Urine Color Urine Appearance (Clear) Urine pH (5.0-8.0) Ur Specific [place] (1.001-1.035) Urine Protein (Negative) Urine Glucose (UA) (Negative) Urine Ketones (Negative) Urine Blood (Negative) Urine Nitrite (Negative) Urine Bilirubin (Negative) Urine Urobilinogen (<2.0) mg/dL Ur Leukocyte Esterase (Negative) Urine RBC (0-5) /hpf Urine WBC (0-5) /hpf Ur Squamous Epith Cells (0-4) /hpf Hyaline Casts (0-2) /lpf Urine Mucus (None) /hpf Acetone, Qual Negative (Negative) Influenza Type A (PCR) (Not Detectd) Influenza Type B (PCR) (Not Detectd) RSV (PCR) (Not Detectd) SARS-CoV-2 (PCR) (Not Detectd) 07/17/23 07/17/23 07/17/23 Range/Units 00:13 00:13 01:30 WBC 7.4 8.7 (3.8-10.6) k/uL RBC 2.54 L 3.46 L (3.80-5.40) m/uL Hgb 7.1 L D 9.9 L D (11.4-16.0) gm/dL Hct 22.4 L 30.5 L (34.0-46.0) % MCV 88.3 88.0 (80.0-100.0) fL MCH 28.0 28.5 (25.0-35.0) pg MCHC 31.7 32.4 (31.0-37.0) g/dL RDW 16.1 H 16.0 H (11.5-15.5) % Plt Count 363 472 H (150-450) k/uL MPV 6.8 7.0 Neutrophils % 75 77 % Lymphocytes % 19 17 % Monocytes % 4 4 % Eosinophils % 1 0 % Basophils % 1 1 % Neutrophils # 5.6 6.6 (1.3-7.7) k/uL Lymphocytes # 1.4 1.5 (1.0-4.8) k/uL Monocytes # 0.3 0.3 (0-1.0) k/uL Eosinophils # 0.0 0.0 (0-0.7) k/uL Basophils # 0.1 0.1 (0-0.2) k/uL Hypochromasia Slight Slight Anisocytosis Slight Slight Sodium 134 L (137-145) mmol/L Potassium 3.4 L (3.5-5.1) mmol/L Chloride 101 (98-107) mmol/L Carbon Dioxide 29 (22-30) mmol/L Anion Gap 4 mmol/L BUN 16 (7-17) mg/dL Creatinine 0.34 L (0.52-1.04) mg/dL Est GFR (CKD-EPI)AfAm >90 (>60 ml/min/1.73 sqM) Est GFR (CKD-EPI)NonAf >90 (>60 ml/min/1.73 sqM) Glucose 220 H (74-99) mg/dL POC Glucose (mg/dL) (70-110) mg/dL POC Glu Car Cleaning Supervisor ID Calcium 7.9 L (8.4-10.2) mg/dL Total Bilirubin 0.3 (0.2-1.3) mg/dL AST 20 (14-36) U/L ALT 17 (4-34) U/L Alkaline Phosphatase 98 (38-126) U/L Total Protein 5.8 L (6.3-8.2) g/dL Albumin 2.7 L (3.5-5.0) g/dL Lipase (23-300) U/L Urine Color Urine Appearance (Clear) Urine pH (5.0-8.0) Ur Specific [place] (1.001-1.035) Urine Protein (Negative) Urine Glucose (UA) (Negative) Urine Ketones (Negative) Urine Blood (Negative) Urine Nitrite (Negative) Urine Bilirubin (Negative) Urine Urobilinogen (<2.0) mg/dL Ur Leukocyte Esterase (Negative) Urine RBC (0-5) /hpf Urine WBC (0-5) /hpf Ur Squamous Epith Cells (0-4) /hpf Hyaline Casts (0-2) /lpf Urine Mucus (None) /hpf Acetone, Qual (Negative) Influenza Type A (PCR) (Not Detectd) Influenza Type B (PCR) (Not Detectd) RSV (PCR) (Not Detectd) SARS-CoV-2 (PCR) (Not Detectd) 07/17/23 07/17/23 07/17/23 Range/Units 07:59 12:01 19:09 WBC (3.8-10.6) k/uL RBC (3.80-5.40) m/uL Hgb (11.4-16.0) gm/dL Hct (34.0-46.0) % MCV (80.0-100.0) fL MCH (25.0-35.0) pg MCHC (31.0-37.0) g/dL RDW (11.5-15.5) % Plt Count (150-450) k/uL MPV Neutrophils % % Lymphocytes % % Monocytes % % Eosinophils % % Basophils % % Neutrophils # (1.3-7.7) k/uL Lymphocytes # (1.0-4.8) k/uL Monocytes # (0-1.0) k/uL Eosinophils # (0-0.7) k/uL Basophils # (0-0.2) k/uL Hypochromasia Anisocytosis Sodium (137-145) mmol/L Potassium (3.5-5.1) mmol/L Chloride (98-107) mmol/L Carbon Dioxide (22-30) mmol/L Anion Gap mmol/L BUN (7-17) mg/dL Creatinine (0.52-1.04) mg/dL Est GFR (CKD-EPI)AfAm (>60 ml/min/1.73 sqM) Est GFR (CKD-EPI)NonAf (>60 ml/min/1.73 sqM) Glucose (74-99) mg/dL POC Glucose (mg/dL) 186 H 249 H 141 H (70-110) mg/dL POC Glu Car Cleaning Supervisor MARCI Casey, Gracielawilda Patterson, Yovanny Smith Calcium (8.4-10.2) mg/dL Total Bilirubin (0.2-1.3) mg/dL AST (14-36) U/L ALT (4-34) U/L Alkaline Phosphatase (38-126) U/L Total Protein (6.3-8.2) g/dL Albumin (3.5-5.0) g/dL Lipase (23-300) U/L Urine Color Urine Appearance (Clear) Urine pH (5.0-8.0) Ur Specific [place] (1.001-1.035) Urine Protein (Negative) Urine Glucose (UA) (Negative) Urine Ketones (Negative) Urine Blood (Negative) Urine Nitrite (Negative) Urine Bilirubin (Negative) Urine Urobilinogen (<2.0) mg/dL Ur Leukocyte Esterase (Negative) Urine RBC (0-5) /hpf Urine WBC (0-5) /hpf Ur Squamous Epith Cells (0-4) /hpf Hyaline Casts (0-2) /lpf Urine Mucus (None) /hpf Acetone, Qual (Negative) Influenza Type A (PCR) (Not Detectd) Influenza Type B (PCR) (Not Detectd) RSV (PCR) (Not Detectd) SARS-CoV-2 (PCR) (Not Detectd) 07/18/23 07/18/23 07/18/23 Range/Units 09:40 12:40 16:39 WBC (3.8-10.6) k/uL RBC (3.80-5.40) m/uL Hgb (11.4-16.0) gm/dL Hct (34.0-46.0) % MCV (80.0-100.0) fL MCH (25.0-35.0) pg MCHC (31.0-37.0) g/dL RDW (11.5-15.5) % Plt Count (150-450) k/uL MPV Neutrophils % % Lymphocytes % % Monocytes % % Eosinophils % % Basophils % % Neutrophils # (1.3-7.7) k/uL Lymphocytes # (1.0-4.8) k/uL Monocytes # (0-1.0) k/uL Eosinophils # (0-0.7) k/uL Basophils # (0-0.2) k/uL Hypochromasia Anisocytosis Sodium (137-145) mmol/L Potassium (3.5-5.1) mmol/L Chloride (98-107) mmol/L Carbon Dioxide (22-30) mmol/L Anion Gap mmol/L BUN (7-17) mg/dL Creatinine (0.52-1.04) mg/dL Est GFR (CKD-EPI)AfAm (>60 ml/min/1.73 sqM) Est GFR (CKD-EPI)NonAf (>60 ml/min/1.73 sqM) Glucose (74-99) mg/dL POC Glucose (mg/dL) 68 L 125 H 151 H (70-110) mg/dL POC Glu Car Cleaning Supervisor Reyna Flores, Reyna Arroyo Calcium (8.4-10.2) mg/dL Total Bilirubin (0.2-1.3) mg/dL AST (14-36) U/L ALT (4-34) U/L Alkaline Phosphatase (38-126) U/L Total Protein (6.3-8.2) g/dL Albumin (3.5-5.0) g/dL Lipase (23-300) U/L Urine Color Urine Appearance (Clear) Urine pH (5.0-8.0) Ur Specific [place] (1.001-1.035) Urine Protein (Negative) Urine Glucose (UA) (Negative) Urine Ketones (Negative) Urine Blood (Negative) Urine Nitrite (Negative) Urine Bilirubin (Negative) Urine Urobilinogen (<2.0) mg/dL Ur Leukocyte Esterase (Negative) Urine RBC (0-5) /hpf Urine WBC (0-5) /hpf Ur Squamous Epith Cells (0-4) /hpf Hyaline Casts (0-2) /lpf Urine Mucus (None) /hpf Acetone, Qual (Negative) Influenza Type A (PCR) (Not Detectd) Influenza Type B (PCR) (Not Detectd) RSV (PCR) (Not Detectd) SARS-CoV-2 (PCR) (Not Detectd) 07/18/23 07/19/23 07/19/23 Range/Units 20:42 07:00 12:08 WBC (3.8-10.6) k/uL RBC (3.80-5.40) m/uL Hgb (11.4-16.0) gm/dL Hct (34.0-46.0) % MCV (80.0-100.0) fL MCH (25.0-35.0) pg MCHC (31.0-37.0) g/dL RDW (11.5-15.5) % Plt Count (150-450) k/uL MPV Neutrophils % % Lymphocytes % % Monocytes % % Eosinophils % % Basophils % % Neutrophils # (1.3-7.7) k/uL Lymphocytes # (1.0-4.8) k/uL Monocytes # (0-1.0) k/uL Eosinophils # (0-0.7) k/uL Basophils # (0-0.2) k/uL Hypochromasia Anisocytosis Sodium (137-145) mmol/L Potassium (3.5-5.1) mmol/L Chloride (98-107) mmol/L Carbon Dioxide (22-30) mmol/L Anion Gap mmol/L BUN (7-17) mg/dL Creatinine (0.52-1.04) mg/dL Est GFR (CKD-EPI)AfAm (>60 ml/min/1.73 sqM) Est GFR (CKD-EPI)NonAf (>60 ml/min/1.73 sqM) Glucose (74-99) mg/dL POC Glucose (mg/dL) 65 L 87 108 (70-110) mg/dL POC Glu Car Cleaning Supervisor ID Yovanny Ramirez, Uma Reed Calcium (8.4-10.2) mg/dL Total Bilirubin (0.2-1.3) mg/dL AST (14-36) U/L ALT (4-34) U/L Alkaline Phosphatase (38-126) U/L Total Protein (6.3-8.2) g/dL Albumin (3.5-5.0) g/dL Lipase (23-300) U/L Urine Color Urine Appearance (Clear) Urine pH (5.0-8.0) Ur Specific [place] (1.001-1.035) Urine Protein (Negative) Urine Glucose (UA) (Negative) Urine Ketones (Negative) Urine Blood (Negative) Urine Nitrite (Negative) Urine Bilirubin (Negative) Urine Urobilinogen (<2.0) mg/dL Ur Leukocyte Esterase (Negative) Urine RBC (0-5) /hpf Urine WBC (0-5) /hpf Ur Squamous Epith Cells (0-4) /hpf Hyaline Casts (0-2) /lpf Urine Mucus (None) /hpf Acetone, Qual (Negative) Influenza Type A (PCR) (Not Detectd) Influenza Type B (PCR) (Not Detectd) RSV (PCR) (Not Detectd) SARS-CoV-2 (PCR) (Not Detectd) 07/19/23 Range/Units 17:19 WBC (3.8-10.6) k/uL RBC (3.80-5.40) m/uL Hgb (11.4-16.0) gm/dL Hct (34.0-46.0) % MCV (80.0-100.0) fL MCH (25.0-35.0) pg MCHC (31.0-37.0) g/dL RDW (11.5-15.5) % Plt Count (150-450) k/uL MPV Neutrophils % % Lymphocytes % % Monocytes % % Eosinophils % % Basophils % % Neutrophils # (1.3-7.7) k/uL Lymphocytes # (1.0-4.8) k/uL Monocytes # (0-1.0) k/uL Eosinophils # (0-0.7) k/uL Basophils # (0-0.2) k/uL Hypochromasia Anisocytosis Sodium (137-145) mmol/L Potassium (3.5-5.1) mmol/L Chloride (98-107) mmol/L Carbon Dioxide (22-30) mmol/L Anion Gap mmol/L BUN (7-17) mg/dL Creatinine (0.52-1.04) mg/dL Est GFR (CKD-EPI)AfAm (>60 ml/min/1.73 sqM) Est GFR (CKD-EPI)NonAf (>60 ml/min/1.73 sqM) Glucose (74-99) mg/dL POC Glucose (mg/dL) 271 H (70-110) mg/dL POC Glu Car Cleaning Supervisor ID Filemon Santana Calcium (8.4-10.2) mg/dL Total Bilirubin (0.2-1.3) mg/dL AST (14-36) U/L ALT (4-34) U/L Alkaline Phosphatase (38-126) U/L Total Protein (6.3-8.2) g/dL Albumin (3.5-5.0) g/dL Lipase (23-300) U/L Urine Color Urine Appearance (Clear) Urine pH (5.0-8.0) Ur Specific [place] (1.001-1.035) Urine Protein (Negative) Urine Glucose (UA) (Negative) Urine Ketones (Negative) Urine Blood (Negative) Urine Nitrite (Negative) Urine Bilirubin (Negative) Urine Urobilinogen (<2.0) mg/dL Ur Leukocyte Esterase (Negative) Urine RBC (0-5) /hpf Urine WBC (0-5) /hpf Ur Squamous Epith Cells (0-4) /hpf Hyaline Casts (0-2) /lpf Urine Mucus (None) /hpf Acetone, Qual (Negative) Influenza Type A (PCR) (Not Detectd) Influenza Type B (PCR) (Not Detectd) RSV (PCR) (Not Detectd) SARS-CoV-2 (PCR) (Not Detectd) Disposition <Malini Castro - Last Filed: 07/15/23 18:48> Time of Disposition: 20:00 <Rei Rodriguez - Last Filed: 07/19/23 20:02> Clinical Impression: Diabetic gastroparesis, Intractable nausea and vomiting, Abdominal pain, Intractable abdominal pain Disposition: ADMITTED IP TO THIS HOSP Condition: Fair
[2023-07-15 15:48] LABS: ALT 19 U/L (4-34); AST 20 U/L (14-36); African American GFR (CKD) >90 (>60 ml/min/1.73 sqM); Alkaline Phosphatase 103 U/L (38-126); Anion Gap 3 mmol/L; Blood Urea Nitrogen 21 mg/dL (7-17); Calcium 7.8 mg/dL (8.4-10.2); Carbon Dioxide 31 mmol/L (22-30); Chloride 99 mmol/L (98-107); Glucose 305 mg/dL (74-99); Lipase 168 U/L (23-300); Non-African American GFR(CKD) >90 (>60 ml/min/1.73 sqM); Potassium 3.9 mmol/L (3.5-5.1); Sodium 133 mmol/L (137-145); Total Bilirubin 0.2 mg/dL (0.2-1.3); Total Protein 6.1 g/dL (6.3-8.2)
[2023-07-15] MEDS: METOCLOPRAMIDE 5 MG/ML 2 ML VIAL IVP STA (15:51)
[2023-07-15] MEDS: HYDROmorphone 1 MG/ML 1 ML SYRINGE IVP STA (16:53)
[2023-07-15] MEDS: METOCLOPRAMIDE 5 MG/ML 2 ML VIAL IVP PRN (21:46)
[2023-07-15] MEDS: HYDROmorphone 0.5 MG/0.5 ML SYRINGE IVP PRN (21:47)
[2023-07-16 02:38] LABS: Glucose,Whole Blood 285 mg/dL (70-110)
[2023-07-16] MEDS: INSULIN ASPART (NovoLOG) 100 UNIT/ML VIAL SQ ONE (02:46)
[2023-07-16] MEDS: SODIUM CHLORIDE 0.9% 1,000 ML IV SCH (02:46)
[2023-07-16] MEDS: HYDROmorphone 0.5 MG/0.5 ML SYRINGE IVP PRN (02:46)
[2023-07-16] MEDS: ONDANSETRON 4 MG/2 ML VIAL IVP STA ×3 (06:00→17:49)
[2023-07-16] MEDS: METOCLOPRAMIDE 5 MG/ML 2 ML VIAL IVP STA ×3 (08:43→20:52)
[2023-07-16] MEDS: ENALAPRILAT 1.25 MG/ML 1 ML VIAL IVP STA (14:25)
[2023-07-16 23:45] LABS: Glucose,Whole Blood 230 mg/dL (70-110)
[2023-07-17 00:22] LABS: Anisocytosis Slight; Basophils # (A) 0.1 k/uL (0-0.2); Basophils % (A) 1 %; Eosinophils % (A) 1 %; HCT 22.4 % (34.0-46.0); Hypochromasia Slight; Lymphocytes # (A) 1.4 k/uL (1.0-4.8); Lymphocytes % (A) 19 %; MCHC 31.7 g/dL (31.0-37.0); MCV 88.3 fL (80.0-100.0); Mean Platelet Volume 6.8; Monocytes # (A) 0.3 k/uL (0-1.0); Monocytes % (A) 4 %; Neutrophils # (A) 5.6 k/uL (1.3-7.7); Neutrophils % (A) 75 %; Platelet Count 363 k/uL (150-450); RBC 2.54 m/uL (3.80-5.40); RDW 16.1 % (11.5-15.5); WBC 7.4 k/uL (3.8-10.6)
[2023-07-17] MEDS: ONDANSETRON 4 MG/2 ML VIAL IVP STA (00:28)
[2023-07-17 00:43] LABS: ALT 17 U/L (4-34); AST 20 U/L (14-36); African American GFR (CKD) >90 (>60 ml/min/1.73 sqM); Albumin 2.7 g/dL (3.5-5.0); Alkaline Phosphatase 98 U/L (38-126); Anion Gap 4 mmol/L; Blood Urea Nitrogen 16 mg/dL (7-17); Calcium 7.9 mg/dL (8.4-10.2); Carbon Dioxide 29 mmol/L (22-30); Chloride 101 mmol/L (98-107); Glucose 220 mg/dL (74-99); Non-African American GFR(CKD) >90 (>60 ml/min/1.73 sqM); Potassium 3.4 mmol/L (3.5-5.1); Sodium 134 mmol/L (137-145); Total Bilirubin 0.3 mg/dL (0.2-1.3); Total Protein 5.8 g/dL (6.3-8.2)
[2023-07-17 01:10] LABS: HGB 7.1 gm/dL (11.4-16.0)
[2023-07-17 01:48] LABS: Anisocytosis Slight; Basophils # (A) 0.1 k/uL (0-0.2); Basophils % (A) 1 %; Eosinophils % (A) 0 %; HCT 30.5 % (34.0-46.0); Hypochromasia Slight; Lymphocytes # (A) 1.5 k/uL (1.0-4.8); Lymphocytes % (A) 17 %; MCH 28.5 pg (25.0-35.0); MCHC 32.4 g/dL (31.0-37.0); Monocytes # (A) 0.3 k/uL (0-1.0); Monocytes % (A) 4 %; Neutrophils # (A) 6.6 k/uL (1.3-7.7); Neutrophils % (A) 77 %; Platelet Count 472 k/uL (150-450); RBC 3.46 m/uL (3.80-5.40); WBC 8.7 k/uL (3.8-10.6)
[2023-07-17 02:15] LABS: HGB 9.9 gm/dL (11.4-16.0)
[2023-07-17] MEDS: INSULIN ASPART (NovoLOG) 100 UNIT/ML VIAL SQ SCH (07:59)
[2023-07-17 08:00] LABS: Glucose,Whole Blood 186 mg/dL (70-110)
[2023-07-17] MEDS: PANTOPRAZOLE 40 MG TABLET PO SCH (08:00)
[2023-07-17] MEDS: ONDANSETRON 4 MG/2 ML VIAL IVP PRN (08:01)
[2023-07-17] MEDS: IPRATROPIUM-ALBUTEROL 3 ML NEB INHALATION SCH (08:58)
[2023-07-17] MEDS: DULoxetine HCL 30 MG CAPSULE.DR PO SCH (09:54)
[2023-07-17] MEDS: FOLIC ACID 1 MG TAB PO SCH (09:54)
[2023-07-17] MEDS: ATORVASTATIN 20 MG TAB PO SCH (09:54)
[2023-07-17] MEDS: INSULIN DETEMIR (LEVEMIR) 100 UNIT/ML SYR SQ SCH (09:54)
[2023-07-17] MEDS: MAGNESIUM OXIDE 400 MG TAB PO SCH (09:55)
[2023-07-17] MEDS: POTASSIUM CHLORIDE ER 20 MEQ TAB.ER PO SCH (09:55)
[2023-07-17 12:06] LABS: Glucose,Whole Blood 249 mg/dL (70-110)
[2023-07-17] MEDS: METOCLOPRAMIDE 5 MG/ML 2 ML VIAL IVP PRN (14:10)
[2023-07-17] MEDS: hydrALAZINE HCL 20 MG/ML 1 ML VIAL IVP PRN (18:45)
[2023-07-17 19:10] LABS: Glucose,Whole Blood 141 mg/dL (70-110)
[2023-07-17] MEDS: HYDROcodone/APAP 5-325MG 1 EACH TAB PO PRN (21:54)
[2023-07-18] MEDS: MIRTAZAPINE 15 MG TAB PO SCH (00:45)
[2023-07-18 09:41] LABS: Glucose,Whole Blood 68 mg/dL (70-110)
[2023-07-18 12:42] LABS: Glucose,Whole Blood 125 mg/dL (70-110)
[2023-07-18 16:41] LABS: Glucose,Whole Blood 151 mg/dL (70-110)
[2023-07-18 20:44] LABS: Glucose,Whole Blood 65 mg/dL (70-110)
[2023-07-19 07:01] LABS: Glucose,Whole Blood 87 mg/dL (70-110)
[2023-07-19 12:09] LABS: Glucose,Whole Blood 108 mg/dL (70-110)
[2023-07-19 17:49] LABS: Glucose,Whole Blood 271 mg/dL (70-110)
[2023-07-19] MEDS ORDERED: MORPHINE SULFATE 4 MG/ML SYRINGE IV PRN (18:35)
[2023-07-19] MEDS ORDERED: NALOXONE 0.4 MG/ML 1 ML VIAL IV PRN (18:35)
[2023-07-19 19:10] LABS: Basophils # (A) 0.1 k/uL (0-0.2); Basophils % (A) 1 %; Eosinophils # (A) 0.1 k/uL (0-0.7); Eosinophils % (A) 2 %; HCT 30.2 % (34.0-46.0); HGB 9.6 gm/dL (11.4-16.0); Hypochromasia Slight; Lymphocytes % (A) 24 %; MCHC 31.9 g/dL (31.0-37.0); MCV 87.9 fL (80.0-100.0); Mean Platelet Volume 7.2; Monocytes # (A) 0.5 k/uL (0-1.0); Monocytes % (A) 6 %; Neutrophils # (A) 5.6 k/uL (1.3-7.7); Neutrophils % (A) 66 %; Platelet Count 451 k/uL (150-450); RBC 3.43 m/uL (3.80-5.40); WBC 8.5 k/uL (3.8-10.6)
[2023-07-19 19:13] LABS: ALT 17 U/L (4-34); AST 27 U/L (14-36); African American GFR (CKD) >90 (>60 ml/min/1.73 sqM); Albumin 2.4 g/dL (3.5-5.0); Alkaline Phosphatase 86 U/L (38-126); Anion Gap 2 mmol/L; Blood Urea Nitrogen 8 mg/dL (7-17); Calcium 7.8 mg/dL (8.4-10.2); Carbon Dioxide 27 mmol/L (22-30); Chloride 100 mmol/L (98-107); Glucose 287 mg/dL (74-99); Magnesium 2.1 mg/dL (1.6-2.3); Non-African American GFR(CKD) >90 (>60 ml/min/1.73 sqM); Phosphorus 2.6 mg/dL (2.5-4.5); Sodium 129 mmol/L (137-145); Total Bilirubin 0.3 mg/dL (0.2-1.3); Total Protein 5.2 g/dL (6.3-8.2)
[2023-07-19] MEDS: MORPHINE SULFATE 4 MG/ML SYRINGE IV STA (19:46)
[2023-07-19] MEDS: SODIUM CHLORIDE 0.9% 1,000 ML IV STA ×2 (19:47→19:48)
[2023-07-19 22:02] LABS: Glucose,Whole Blood 265 mg/dL (70-110)
[2023-07-20 05:41] LABS: Glucose,Whole Blood 273 mg/dL (70-110)
[2023-07-20 07:11] LABS: Basophils % (A) 1 %; Eosinophils # (A) 0.1 k/uL (0-0.7); Eosinophils % (A) 2 %; HCT 28.2 % (34.0-46.0); Hypochromasia Slight; Lymphocytes # (A) 1.6 k/uL (1.0-4.8); Lymphocytes % (A) 20 %; MCH 28.3 pg (25.0-35.0); MCV 88.3 fL (80.0-100.0); Mean Platelet Volume 8.1; Monocytes # (A) 0.7 k/uL (0-1.0); Monocytes % (A) 8 %; Neutrophils # (A) 5.6 k/uL (1.3-7.7); Neutrophils % (A) 69 %; Platelet Count 396 k/uL (150-450); RBC 3.19 m/uL (3.80-5.40); RDW 15.9 % (11.5-15.5); WBC 8.1 k/uL (3.8-10.6)
[2023-07-20 08:22] LABS: ALT 13 U/L (4-34); AST 19 U/L (14-36); African American GFR (CKD) >90 (>60 ml/min/1.73 sqM); Albumin 2.2 g/dL (3.5-5.0); Albumin/Globulin Ratio 0.8; Alkaline Phosphatase 90 U/L (38-126); Anion Gap -2 mmol/L; Blood Urea Nitrogen 11 mg/dL (7-17); Calcium 7.7 mg/dL (8.4-10.2); Carbon Dioxide 32 mmol/L (22-30); Chloride 101 mmol/L (98-107); Globulin 2.7 g/dL; Glucose 275 mg/dL (74-99); Magnesium 2.1 mg/dL (1.6-2.3); Non-African American GFR(CKD) >90 (>60 ml/min/1.73 sqM); Phosphorus 3.1 mg/dL (2.5-4.5); Potassium 3.6 mmol/L (3.5-5.1); Sodium 131 mmol/L (137-145); Total Bilirubin 0.2 mg/dL (0.2-1.3); Total Protein 4.9 g/dL (6.3-8.2)
[2023-07-20] MEDS: HYDROmorphone 0.5 MG/0.5 ML SYRINGE IVP PRN (11:31)
[2023-07-20 12:03] LABS: Glucose,Whole Blood 107 mg/dL (70-110)
[2023-07-20 16:43] LABS: Glucose,Whole Blood 73 mg/dL (70-110)
--- NOTE | 2023-07-20 18:55 | PN ---
PROGRESS NOTE SUBJECTIVE: Lesa Patterson today is type 1 diabetic, 53-year-old. She has nausea and gastroparesis. She does not feel like good today. She feels her abdomen is hurting. She is nauseated. Does want to go home. We will restart her tube feeding. Continue her n.p.o. by mouth. . OBJECTIVE: VITAL SIGNS: Pulse is low 100s, temp 98, blood pressures are 130s over 80s to 150s over 90s, O2 98% to 97% room air. GENERAL: She is thin, cachectic. She has a PEG tube in place. EXTREMITIES: No cyanosis, clubbing, or edema. PLAN: To continue tube feedings. Monitor for nausea and vomiting, for gastroparesis and progressive vomiting, and possible discharge home tomorrow. Feels better. ART / DENISE: [id number] /
[2023-07-20 20:26] LABS: Glucose,Whole Blood 93 mg/dL (70-110)
--- NOTE | 2023-07-20 20:28 | HP ---
HISTORY AND PHYSICAL A 53-year-old white female, who has been in the ER for 4 days and finally got admitted due to severe gastroparesis, nausea, and vomiting; unable to tolerate anything by mouth. She has had a PEG tube in place due to this reason. She is going to have a gastric pump put in soon in [facility]. She is admitted with abdominal pain, nausea, vomiting. [facility] would not take her on transfers, we admitted her. MEDICATIONS: 1. Xanax 0.25 b.i.d. 2. Lipitor 20 daily. 3. Cymbalta 30 daily. 4. [place] 5/325 b.i.d. 5. Lantus 3 units subcu b.i.d. 6. Humalog 2 units subcu t.i.d. 7. DuoNeb q.i.d. 8. Mag oxide 400 daily. 9. Remeron 30 daily. 10.Potassium chloride 20 mEq daily. 11.Folic acid 1 mg daily. ALLERGIES: Fentanyl. PAST MEDICAL HISTORY: Diabetes mellitus, musculoskeletal disorder, frozen shoulder, history of MRSA. FAMILY HISTORY: Father and mother are adopted. PHYSICAL EXAMINATION: GENERAL: Skinny female, looks malnourished. CARDIOVASCULAR: S1 and S2. LUNGS: Decreased breath sounds x4. GI: Soft, nontender. PEG tube in place. NEUROLOGIC: Cranial nerves intact. PSYCH: Fair mood and affect. HEENT: Pupils equal, round, reactive. VITAL SIGNS: Temp 98.2, pulse 80s to 100, respiratory rate 18 to 22, blood pressure 100 to 160s/70s to 80s, O2 97 to 100. Severe nausea, vomiting, gastroparesis, dehydration, tachycardia secondary to multiple reasons, acute on chronic anemia, type 1 diabetes mellitus. Monitor her hemoglobin, transfuse as necessary. start tube feeds, back to n.p.o. due to nausea and vomiting, she can tolerate a G-tube without nausea and vomiting. She can go home in next 24 hours or 48 hours. MMODL / IJN: [id number] /
[2023-07-21 05:20] LABS: Glucose,Whole Blood 57 mg/dL (70-110)
[2023-07-21] MEDS ORDERED: DEXTROSE 50% SYRINGE 50 ML IVP PRN (05:47)
[2023-07-21] MEDS: DEXTROSE 50% SYRINGE 50 ML IVP ONE (05:57)
[2023-07-21 06:24] LABS: Glucose,Whole Blood 189 mg/dL (70-110)
[2023-07-21] MEDS: ALPRAZolam 0.25 MG TAB PO PRN (08:55)
[2023-07-21] MEDS: INSULIN DETEMIR (LEVEMIR) 100 UNIT/ML SYR SQ SCH (08:55)
[2023-07-21 11:06] LABS: ALT 9 U/L (8-44); AST 20 U/L (13-35); Albumin 2.3 g/dL (3.8-4.9); Albumin/Globulin Ratio 0.92 Ratio (1.60-3.17); Alkaline Phosphatase 85 U/L (41-126); BUN/Creat Ratio 15.75 Ratio (12.00-20.00); Blood Urea Nitrogen 6.3 mg/dL (9.0-27.0); Calcium 8.1 mg/dL (8.7-10.3); Carbon Dioxide 28.4 mmol/L (21.6-31.8); Chloride 98 mmol/L (96-109); Globulin 2.5 g/dL (1.6-3.3); Glucose 242 mg/dL (70-110); Potassium 3.5 mmol/L (3.5-5.5); Sodium 135 mmol/L (135-145); Total Bilirubin <0.2 mg/dL (0.3-1.2); Total Protein 4.8 g/dL (6.2-8.2)
[2023-07-21 11:44] LABS: Glucose,Whole Blood 164 mg/dL (70-110)
[2023-07-21 11:59] LABS: Basophils # (A) 0.04 X 10*3/uL (0.00-0.10); Basophils % (A) 0.8 %; Eosinophils # (A) 0.16 X 10*3/uL (0.04-0.35); Eosinophils % (A) 3.4 %; HCT 30.3 % (37.2-46.3); HGB 9.4 g/dL (12.0-15.0); Lymphocytes % (A) 23.1 %; MCH 27.6 pg (27.0-32.0); MCV 88.9 FL (80.0-97.0); Mean Platelet Volume 9.7 FL (9.5-12.2); Monocytes # (A) 0.38 X 10*3/uL (0.20-1.00); NRBC Per 100 WBC 0 X 10*3/uL (0.00-0.01); Neutrophils # (A) 3.07 X 10*3/uL (1.80-7.70); Neutrophils % (A) 64.5 %; Platelet Count 385 X 10*3/uL (140-440); RBC 3.41 X 10*6/uL (4.10-5.20); RDW 15.6 % (11.5-14.5); WBC 4.76 X 10*3/uL (4.50-10.00)
[2023-07-21 16:29] LABS: Glucose,Whole Blood 161 mg/dL (70-110)
[2023-07-21 19:05] LABS: Glucose,Whole Blood 160 mg/dL (70-110)
--- NOTE | 2023-07-22 00:55 | PN ---
PROGRESS NOTE SUBJECTIVE: A 53-year-old white female, remains on DuoNeb for COPD, Xanax for anxiety, Levemir and NovoLog for diabetes mellitus, Reglan for gastroparesis, Protonix for GERD. OBJECTIVE: VITAL SIGNS: Temp 97.5, pulse 111, respiratory rate 16 to 20, blood pressure is 160s over 70s. ASSESSMENT: Tube feedings have been ordered. Low blood sugar, on hypoglycemic protocol. Possibly hold off on some of her insulin unless she is eating or getting tube feeds. Chronic obstructive pulmonary disease, continued on breathing treatments, we will continue here. May be cut down on her Levemir. Prognosis guarded. Please see further orders. MMODL / IJN: [id number] /
[2023-07-22 01:34] LABS: Glucose,Whole Blood 134 mg/dL (70-110)
[2023-07-22 05:55] LABS: Glucose,Whole Blood 145 mg/dL (70-110)
[2023-07-22 08:48] LABS: Basophils # (A) 0.06 X 10*3/uL (0.00-0.10); Basophils % (A) 0.9 %; Eosinophils # (A) 0.21 X 10*3/uL (0.04-0.35); Eosinophils % (A) 3.1 %; HCT 28.5 % (37.2-46.3); HGB 9.1 g/dL (12.0-15.0); Lymphocytes # (A) 2.13 X 10*3/uL (0.90-5.00); Lymphocytes % (A) 31.8 %; MCH 28.8 pg (27.0-32.0); MCHC 31.9 g/dL (32.0-37.0); MCV 90.2 FL (80.0-97.0); Mean Platelet Volume 9.6 FL (9.5-12.2); Monocytes # (A) 0.53 X 10*3/uL (0.20-1.00); Monocytes % (A) 7.9 %; NRBC Per 100 WBC 0 X 10*3/uL (0.00-0.01); Neutrophils # (A) 3.74 X 10*3/uL (1.80-7.70); Platelet Count 427 X 10*3/uL (140-440); RBC 3.16 X 10*6/uL (4.10-5.20); RDW 15.2 % (11.5-14.5); WBC 6.69 X 10*3/uL (4.50-10.00)
[2023-07-22 09:07] LABS: ALT 11 U/L (8-44); AST 18 U/L (13-35); Albumin 2.4 g/dL (3.8-4.9); Alkaline Phosphatase 88 U/L (41-126); BUN/Creat Ratio 19.25 Ratio (12.00-20.00); Blood Urea Nitrogen 7.7 mg/dL (9.0-27.0); Calcium 8.1 mg/dL (8.7-10.3); Carbon Dioxide 31.2 mmol/L (21.6-31.8); Chloride 99 mmol/L (96-109); Globulin 2.4 g/dL (1.6-3.3); Glucose 143 mg/dL (70-110); Potassium 4.2 mmol/L (3.5-5.5); Sodium 137 mmol/L (135-145); Total Bilirubin <0.2 mg/dL (0.3-1.2); Total Protein 4.8 g/dL (6.2-8.2)
[2023-07-22 11:24] LABS: Glucose,Whole Blood 111 mg/dL (70-110)
[2023-07-22 14:10] VITALS: BP 137/85; PULSE 111; RESP 18; TEMP 98.4
== END 2023-07-22 14:07 | disposition home or self-care (01) | DRG 48 ==
LOC: EC 11:16 → 4SSUR 07-19 18:36 → OBSVTOIN 07-19 18:36 → 4SSUR 07-19 20:16
PROVIDERS: ADMIT Family Medicine; ATTEND Family Medicine
DX: E10.43 Type 1 diabetes mellitus with diabetic autonomic (poly)neuropathy (principal); K31.84 Gastroparesis; F41.9 Anxiety disorder, unspecified; J44.9 Chronic obstructive pulmonary disease, unspecified; K21.9 Gastro-esophageal reflux disease without esophagitis; Z79.899 Other long term (current) drug therapy; Z79.4 Long term (current) use of insulin; Z93.1 Gastrostomy status; Z86.14 Personal history of Methicillin resistant Staphylococcus aureus infection
CPT/HCPCS: 36415; 80053; 81001; 82009; 83605; 83690; 83735; 84100; 85025; 87636; 93005; 94640; 94760; 96361; 96374; 96375; 96376; 99285

== ENCOUNTER 2023-08-25 16:56 | Inpatient (IN) | payer MEDICARE, OTHER ==
[2023-08-25 17:10] LABS: Glucose,Whole Blood >600 mg/dL (70-110)
[2023-08-25 17:35] LABS: VBG PH 7.54 (7.31-7.41)
--- NOTE | 2023-08-25 17:35 | ED ---
General Adult HPI - General Chief complaint: Recheck/Abnormal Lab/Rx Stated complaint: ABD PAIN Time Seen by Provider: 08/25/23 17:01 Source: patient, EMS Mode of arrival: EMS - History of Present Illness Initial comments: Dictation was produced using [employer] dictation software. please excuse any grammatical, word or spelling errors. Chief Complaint: 53-year-old female presents emergency department abdominal pain History of Present Illness: Patient 53-year-old female she has history of debility, type 1 diabetes and gastroparesis. Patient complains of lower abdominal pain that she attributes is secondary to her diabetic gastroparesis. She sees specialist out of [facility]. Patient was brought in from home for complaint of abdominal pain. Denies any fever, chills or night sweats. No nausea. She does report diarrhea. The ROS documented in this emergency department record has been reviewed and confirmed by me. Those systems with pertinent positive or negative responses have been documented in the HPI. All other systems are other negative and/or noncontributory. - Related Data Home Medications Medication Instructions Recorded Confirmed ALPRAZolam [Xanax] 0.25 mg PO BID PRN 05/12/23 08/25/23 Atorvastatin [Lipitor] 20 mg PO DAILY 05/12/23 08/25/23 DULoxetine HCL [Cymbalta] 30 mg PO DAILY 05/12/23 08/25/23 Insulin Lispro [humaLOG Kwikpen] 2 unit SQ AC-TID 05/12/23 08/25/23 Ipratropium-Albuterol Nebulize 3 ml INHALATION RT-BID 05/12/23 08/25/23 [Duoneb 0.5 mg-3 mg/3 ml Soln] Magnesium Oxide [Mag-Ox] 400 mg PO DAILY 05/12/23 08/25/23 Mirtazapine [Remeron] 30 mg PO HS 05/12/23 08/25/23 Potassium Chloride ER [K-Dur 20] 20 meq PO DAILY 05/12/23 08/25/23 Folic Acid 1 mg PO DAILY 06/15/23 08/25/23 HYDROcodone/APAP 7.5-325MG [[place] 1 tab PO TID PRN 08/25/23 08/25/23 7.5-325] Insulin Glargine [Lantus Vial] 2 unit SQ DAILY 08/25/23 08/25/23 Previous Rx's Medication Instructions Recorded Metoclopramide [Reglan] 10 mg PO ACHS 30 Days #120 tab 05/15/23 Pantoprazole [Protonix] 40 mg PO AC-BID 30 Days #60 tab 05/21/23 Ondansetron [Zofran] 4 mg PO DAILY 30 Days #30 tab 06/26/23 Allergies Allergy/AdvReac Type Severity Reaction Status Date / Time fentanyl Allergy Unknown Verified 08/25/23 19:09 Review of Systems ROS Statement: Those systems with pertinent positive or pertinent negative responses have been documented in the HPI. ROS Other: All systems not noted in ROS Statement are negative. Past Medical History Past Medical History: Diabetes Mellitus, Musculoskeletal Disorder Additional Past Medical History / Comment(s): FREQ NAUSEA, PAINFUL RT SHOULDER "FROZEN SHOULDER", NEUROPATHY PORFIRIO LEGS, Blood pressures can run high History of Any Multi-Drug Resistant Organisms: MRSA Date of last positivie culture/infection: 05/19/23 MDRO Source:: Urine Past Surgical History: Orthopedic Surgery, Tubal Ligation Past Anesthesia/Blood Transfusion Reactions: No Reported Reaction Additional Past Anesthesia/Blood Transfusion Reaction / Comment(s): UNK FAMILY HX Past Psychological History: Anxiety Smoking Status: Former smoker Past Alcohol Use History: None Reported Past Drug Use History: Marijuana - Past Family History Father History Unknown: Yes Additional Family Medical History / Comment(s): unknown-adopted Mother History Unknown: Yes Additional Family Medical History / Comment(s): unknown- adopted General Exam - General Exam Comments Initial Comments: PHYSICAL EXAM: General Impression: Alert and oriented x3, cachectic HEENT: Normocephalic atraumatic, extra-ocular movements intact, pupils equal and reactive to light bilaterally, mucous membranes moist. Cardiovascular: Heart regular rate and rhythm Chest: Able to complete full sentences, no retractions, no tachypnea Abdomen: abdomen soft, palpatory tenderness to the lower abdomen, non-distended, no organomegaly Musculoskeletal: Pulses present and equal in all extremities, no peripheral edema Motor: no focal deficits noted Neurological: CN II-XII grossly intact, no focal motor or sensory deficits noted Skin: Intact with no visualized rashes Psych: Normal affect and mood Course Vital Signs 08/25/23 08/25/23 08/25/23 17:02 17:11 18:09 Temperature 97.9 F Pulse Rate 115 H 101 H Respiratory 14 18 Rate Blood Pressure 99/71 117/76 O2 Sat by Pulse 98 100 Oximetry 08/25/23 08/25/23 08/25/23 19:00 19:26 20:11 Temperature 98.0 F Pulse Rate 103 H 100 98 Respiratory 18 17 12 Rate Blood Pressure 131/87 102/74 87/59 O2 Sat by Pulse 99 99 95 Oximetry EKG Findings - EKG Comments: EKG Findings:: My EKG interpretation: Ventricular rate 112, sinus tachycardia,. 106, QRS 77, QTc 400. No NE prolongation, no QTC prolongation, no ST or T-wave changes noted. . Overall, this EKG is unremarkable Medical Decision Making - Medical Decision Making Was pt. sent in by a medical professional or institution (, PA, NEWS PRODUCER, urgent ca re, hospital, or correction...) When possible be specific @ -No Did you speak to anyone other than the patient for history (EMS, parent, family, police, friend...)? What history was obtained from this source @ -Some history obtained from EMS as described above Did you review nursing and triage notes (agree or disagree)? Why? @ -I reviewed and agree with nursing and triage notes Were old charts reviewed (outside hosp., previous admission, EMS record, old EKG, old radiological studies, urgent care reports/EKG's, correction records)? Report findings @ -No old charts were reviewed Differential Diagnosis (chest pain, altered mental status, abdominal pain women, abdominal pain men, vaginal bleeding, musculoskeletal, weakness, fever, dyspnea, syncope, headache, dizziness, GI bleed, back pain, seizure, CVA, palpatations, mental health)? @ -Not applicable EKG interpreted by me (3pts min.). @ -See above X-rays interpreted by me (1pt min.). @ -None done CT interpreted by me (1pt min.). @ -CT abdomen pelvis shows no acute processes U/S interpreted by me (1pt. min.). @ -None done What testing was considered but not performed or refused? (CT, X-rays, U/S, labs)? Why? @ -None What meds were considered but not given or refused? Why? @ -None Did you discuss the management of the patient with other professionals (professionals i.e. , PA, NEWS PRODUCER, lab, RT, psych nurse, social media sr strategy manager, storage specialist, teacher, aoc plans intelligence officer chief, human services case manager)? Give summary @ -Case discussed with Dr. Pike for admission Was smoking cessation discussed for >3mins.? @ -No Was critical care preformed (if so, how long)? @ -No Were there social determinants of health that impacted care today? How? (Temo elessness, low income, unemployed, alcoholism, drug addiction, transportation, low edu. Level, literacy, decrease access to med. care, snf, rehab)? @ -No Was there de-escalation of care discussed even if they declined (Discuss DNR or withdrawal of care, Hospice)? DNR status @ -No What co-morbidities impacted this encounter? (DM, HTN, Smoking, COPD, CAD, Cancer, CVA, ARF, Chemo, Hep., AIDS, mental health diagnosis, sleep apnea, morbid obesity)? @ -None Was patient admitted / discharged? Hospital course, mention meds given and route, prescriptions, significant lab abnormalities, going to OR and other pertinent info. @ -53-year-old diabetic female presents emergency department with abdominal pain. Vital signs upon arrival are within acceptable limits. Slightly tachycardic and borderline hypotensive however likely secondary to dehydration due to unmanaged hypoglycemia. Patient feels like her symptoms are secondary to her gastroparesis. Laboratory evaluation obtained. CBC unremarkable. No acidosis. Metabolic panel within acceptable limits. Hyperglycemic. Urinalysis acetone negative. No concern for DKA. Patient however still slightly hypertensive. Will be admitted for IV hydration and hyperglycemia management. Undiagnosed new problem with uncertain prognosis? @ -No Drug Therapy requiring intensive monitoring for toxicity (Heparin, Nitro, Insulin, Cardizem)? @ -No Were any procedures done? @ -No Diagnosis/symptom? Acute, or Chronic, or Acute on Chronic? Uncomplicated (without systemic symptoms) or Complicated (systemic symptoms)? @ -Abdominal pain, dehydration Side effects of treatment? @ -No Exacerbation, Progression, or Severe Exacerbation? @ -No Poses a threat to life or bodily function? How? (Chest pain, USA, IA, pneumonia, PE, COPD, DKA, ARF, appy, cholecystitis, CVA, Diverticulitis, Homicidal, Suicidal, threat to staff... and all critical care pts) @ -yes - Lab Data Result diagrams: 08/25/23 17:13 08/25/23 17:13 Lab Results 08/25/23 08/25/23 08/25/23 Range/Units 17:09 17:13 17:13 WBC 7.8 (3.8-10.6) k/uL RBC 4.01 (3.80-5.40) m/uL Hgb 11.6 (11.4-16.0) gm/dL Hct 35.6 (34.0-46.0) % MCV 88.9 (80.0-100.0) fL MCH 29.0 (25.0-35.0) pg MCHC 32.6 (31.0-37.0) g/dL RDW 15.2 (11.5-15.5) % Plt Count 379 (150-450) k/uL MPV 8.0 Neutrophils % 71 % Lymphocytes % 22 % Monocytes % 5 % Eosinophils % 1 % Basophils % 1 % Neutrophils # 5.5 (1.3-7.7) k/uL Lymphocytes # 1.7 (1.0-4.8) k/uL Monocytes # 0.4 (0-1.0) k/uL Eosinophils # 0.1 (0-0.7) k/uL Basophils # 0.1 (0-0.2) k/uL VBG pH (7.31-7.41) VBG pCO2 (37-51) mmHg VBG HCO3 (24-28) mmol/L Sodium 123 L (137-145) mmol/L Potassium 4.2 (3.5-5.1) mmol/L Chloride 86 L (98-107) mmol/L Carbon Dioxide 33 H (22-30) mmol/L Anion Gap 4 mmol/L BUN 23 H (7-17) mg/dL Creatinine 0.46 L (0.52-1.04) mg/dL Est GFR (CKD-EPI)AfAm >90 (>60 ml/min/1.73 sqM) Est GFR (CKD-EPI)NonAf >90 (>60 ml/min/1.73 sqM) Glucose 667 H* (74-99) mg/dL POC Glucose (mg/dL) >600 H (70-110) mg/dL POC Glu Casting Machine Service Operator ID September Plasma Lactic Acid Travis (0.7-2.0) mmol/L Calcium 9.2 (8.4-10.2) mg/dL Magnesium 2.1 (1.6-2.3) mg/dL Total Bilirubin 0.3 (0.2-1.3) mg/dL AST 23 (14-36) U/L ALT 16 (4-34) U/L Alkaline Phosphatase 102 (38-126) U/L Total Protein 6.1 L (6.3-8.2) g/dL Albumin 3.3 L (3.5-5.0) g/dL Lipase 251 (23-300) U/L Urine Color Urine Appearance (Clear) Urine pH (5.0-8.0) Ur Specific Coyle (1.001-1.035) Urine Protein (Negative) Urine Glucose (UA) (Negative) Urine Ketones (Negative) Urine Blood (Negative) Urine Nitrite (Negative) Urine Bilirubin (Negative) Urine Urobilinogen (<2.0) mg/dL Ur Leukocyte Esterase (Negative) Urine RBC (0-5) /hpf Urine WBC (0-5) /hpf Ur Squamous Epith Cells (0-4) /hpf Urine Bacteria (None) /hpf Acetone, Qual Negative (Negative) 08/25/23 08/25/23 08/25/23 Range/Units 17:13 17:13 17:37 WBC (3.8-10.6) k/uL RBC (3.80-5.40) m/uL Hgb (11.4-16.0) gm/dL Hct (34.0-46.0) % MCV (80.0-100.0) fL MCH (25.0-35.0) pg MCHC (31.0-37.0) g/dL RDW (11.5-15.5) % Plt Count (150-450) k/uL MPV Neutrophils % % Lymphocytes % % Monocytes % % Eosinophils % % Basophils % % Neutrophils # (1.3-7.7) k/uL Lymphocytes # (1.0-4.8) k/uL Monocytes # (0-1.0) k/uL Eosinophils # (0-0.7) k/uL Basophils # (0-0.2) k/uL VBG pH 7.54 H (7.31-7.41) VBG pCO2 41 (37-51) mmHg VBG HCO3 35 H (24-28) mmol/L Sodium (137-145) mmol/L Potassium (3.5-5.1) mmol/L Chloride (98-107) mmol/L Carbon Dioxide (22-30) mmol/L Anion Gap mmol/L BUN (7-17) mg/dL Creatinine (0.52-1.04) mg/dL Est GFR (CKD-EPI)AfAm (>60 ml/min/1.73 sqM) Est GFR (CKD-EPI)NonAf (>60 ml/min/1.73 sqM) Glucose (74-99) mg/dL POC Glucose (mg/dL) (70-110) mg/dL POC Glu Casting Machine Service Operator ID Plasma Lactic Acid Travis 1.1 (0.7-2.0) mmol/L Calcium (8.4-10.2) mg/dL Magnesium (1.6-2.3) mg/dL Total Bilirubin (0.2-1.3) mg/dL AST (14-36) U/L ALT (4-34) U/L Alkaline Phosphatase (38-126) U/L Total Protein (6.3-8.2) g/dL Albumin (3.5-5.0) g/dL Lipase (23-300) U/L Urine Color Colorless Urine Appearance Clear (Clear) Urine pH 7.0 (5.0-8.0) Ur Specific Coyle 1.030 (1.001-1.035) Urine Protein 2+ H (Negative) Urine Glucose (UA) 4+ H (Negative) Urine Ketones Negative (Negative) Urine Blood Negative (Negative) Urine Nitrite Negative (Negative) Urine Bilirubin Negative (Negative) Urine Urobilinogen <2.0 (<2.0) mg/dL Ur Leukocyte Esterase Negative (Negative) Urine RBC 3 (0-5) /hpf Urine WBC 1 (0-5) /hpf Ur Squamous Epith Cells <1 (0-4) /hpf Urine Bacteria Rare H (None) /hpf Acetone, Qual (Negative) 08/25/23 Range/Units 20:03 WBC (3.8-10.6) k/uL RBC (3.80-5.40) m/uL Hgb (11.4-16.0) gm/dL Hct (34.0-46.0) % MCV (80.0-100.0) fL MCH (25.0-35.0) pg MCHC (31.0-37.0) g/dL RDW (11.5-15.5) % Plt Count (150-450) k/uL MPV Neutrophils % % Lymphocytes % % Monocytes % % Eosinophils % % Basophils % % Neutrophils # (1.3-7.7) k/uL Lymphocytes # (1.0-4.8) k/uL Monocytes # (0-1.0) k/uL Eosinophils # (0-0.7) k/uL Basophils # (0-0.2) k/uL VBG pH (7.31-7.41) VBG pCO2 (37-51) mmHg VBG HCO3 (24-28) mmol/L Sodium (137-145) mmol/L Potassium (3.5-5.1) mmol/L Chloride (98-107) mmol/L Carbon Dioxide (22-30) mmol/L Anion Gap mmol/L BUN (7-17) mg/dL Creatinine (0.52-1.04) mg/dL Est GFR (CKD-EPI)AfAm (>60 ml/min/1.73 sqM) Est GFR (CKD-EPI)NonAf (>60 ml/min/1.73 sqM) Glucose (74-99) mg/dL POC Glucose (mg/dL) 482 H (70-110) mg/dL POC Glu Casting Machine Service Operator ID Jaime Mariee Plasma Lactic Acid Travis (0.7-2.0) mmol/L Calcium (8.4-10.2) mg/dL Magnesium (1.6-2.3) mg/dL Total Bilirubin (0.2-1.3) mg/dL AST (14-36) U/L ALT (4-34) U/L Alkaline Phosphatase (38-126) U/L Total Protein (6.3-8.2) g/dL Albumin (3.5-5.0) g/dL Lipase (23-300) U/L Urine Color Urine Appearance (Clear) Urine pH (5.0-8.0) Ur Specific [place]oyle (1.001-1.035) Urine Protein (Negative) Urine Glucose (UA) (Negative) Urine Ketones (Negative) Urine Blood (Negative) Urine Nitrite (Negative) Urine Bilirubin (Negative) Urine Urobilinogen (<2.0) mg/dL Ur Leukocyte Esterase (Negative) Urine RBC (0-5) /hpf Urine WBC (0-5) /hpf Ur Squamous Epith Cells (0-4) /hpf Urine Bacteria (None) /hpf Acetone, Qual (Negative) Disposition Clinical Impression: Dehydration Disposition: ADMITTED IP TO THIS HOSP Condition: Fair Referrals: Dell Pike MD [Primary Care Provider] - 1-2 days Decision Time: 21:03
[2023-08-25 17:38] LABS: Basophils # (A) 0.1 k/uL (0-0.2); Basophils % (A) 1 %; Eosinophils # (A) 0.1 k/uL (0-0.7); Eosinophils % (A) 1 %; HCT 35.6 % (34.0-46.0); HGB 11.6 gm/dL (11.4-16.0); Lymphocytes # (A) 1.7 k/uL (1.0-4.8); Lymphocytes % (A) 22 %; MCHC 32.6 g/dL (31.0-37.0); MCV 88.9 fL (80.0-100.0); Monocytes # (A) 0.4 k/uL (0-1.0); Monocytes % (A) 5 %; Neutrophils # (A) 5.5 k/uL (1.3-7.7); Neutrophils % (A) 71 %; Platelet Count 379 k/uL (150-450); RBC 4.01 m/uL (3.80-5.40); RDW 15.2 % (11.5-15.5); WBC 7.8 k/uL (3.8-10.6)
[2023-08-25] MEDS: MORPHINE SULFATE 4 MG/ML SYRINGE IV STA (17:44)
[2023-08-25 17:45] LABS: ALT 16 U/L (4-34); AST 23 U/L (14-36); African American GFR (CKD) >90 (>60 ml/min/1.73 sqM); Albumin 3.3 g/dL (3.5-5.0); Alkaline Phosphatase 102 U/L (38-126); Anion Gap 4 mmol/L; Blood Urea Nitrogen 23 mg/dL (7-17); Calcium 9.2 mg/dL (8.4-10.2); Carbon Dioxide 33 mmol/L (22-30); Chloride 86 mmol/L (98-107); Lipase 251 U/L (23-300); Magnesium 2.1 mg/dL (1.6-2.3); Non-African American GFR(CKD) >90 (>60 ml/min/1.73 sqM); Potassium 4.2 mmol/L (3.5-5.1); Sodium 123 mmol/L (137-145); Total Bilirubin 0.3 mg/dL (0.2-1.3); Total Protein 6.1 g/dL (6.3-8.2)
[2023-08-25] MEDS: SODIUM CHLORIDE 0.9% 1,000 ML IV STA ×2 (17:45→21:34)
[2023-08-25 17:49] LABS: Appearance,Urine Clear (Clear); Bacteria,Urine Rare /hpf; Bilirubin,Urine Negative (Negative); Blood,Urine Negative (Negative); Color,Urine Colorless; Glucose,Urine (UA) 4+ (Negative); Ketones,Urine Negative (Negative); Leukocyte Esterase,Urine Negative (Negative); Nitrite,Urine Negative (Negative); Protein,Urine 2+ (Negative); RBC,Urine 3 /hpf (0-5); Squamous Epithelial Cell,Urine <1 /hpf (0-4); Urobilinogen,Urine <2.0 mg/dL (<2.0); WBC,Urine 1 /hpf (0-5)
[2023-08-25 18:00] LABS: Glucose 667 mg/dL (74-99)
[2023-08-25] MEDS: HYDROmorphone 1 MG/ML 1 ML SYRINGE IVP STA (19:27)
[2023-08-25] MEDS: INSULIN REGULAR 100 UNIT/ML VIAL (IV) IV ONE (19:32)
--- NOTE | 2023-08-25 19:50 | CT ---
EXAMINATION TYPE: CT abdomen pelvis w con CT DLP: 323.1 mGycm, Automated exposure control for dose reduction was used. DATE OF EXAM: 08/25/2023 6:41 PM COMPARISON: 06/15/2023 CLINICAL INDICATION:Female, 53 years old with history of abdominal pain; abdominal pain, weakness TECHNIQUE: Axial CT of the abdomen and pelvis. Sagittal and coronal reformats were created on a [employer] workstation. Contrast used:100 ml mL of Isovue 300 with IV Contrast, (none if empty) Oral contrast used: without Oral Contrast (none if empty) FINDINGS: LOWER CHEST: Mild dependent atelectasis bilaterally. Circumferential wall thickening of the distal es ophagus again seen, appears less than before approximately 5 mm versus 8 mm. ABDOMEN LIVER: Unremarkable GALLBLADDER AND BILE DUCTS: Unremarkable gallbladder. No biliary ductal dilatation. PANCREAS: Unremarkable. SPLEEN: Unremarkable. ADRENAL GLANDS: Unremarkable. KIDNEYS AND URETERS: Kidneys enhance symmetrically. No evidence of hydronephrosis or visible renal ca lculus. The ureters are unremarkable. PELVIS BLADDER: Bladder is moderately distended, otherwise unremarkable. REPRODUCTIVE: Uterus not well assessed by CT but appears grossly unremarkable. Ovaries not definitive ly seen. ABDOMEN & PELVIS STOMACH AND BOWEL: Percutaneous enteric tube is seen entering the stomach, coiling within the stomach before the tip terminates at the gastric outlet. Fluid-filled mildly prominent proximal duodenum. Th e more distal small bowel shows fluid-filled mild prominence with mild wall enhancement suggested. Th e presumed appendix appears within normal limits. There is mild/moderate stool without evidence of fo poli inflammation or obstruction. PERITONEUM/RETROPERITONEUM: No evidence of pneumoperitoneum or free fluid. VASCULATURE: Moderate mixed atherosclerotic disease of the aorta and branches. Calcified plaque show s an element of narrowing throughout the infrarenal aorta not fully characterized. LYMPH NODES: No enlarged nodes identified. SOFT TISSUE/ABDOMINAL WALL: Unremarkable MUSCULOSKELETAL: Mild/moderate multilevel degenerative changes throughout the visualized spine. Super ior endplate Schmorl's node at L4 and remote moderate compression deformity with anterior wedging T12 appear unchanged. No evidence of acute fracture. IMPRESSION: 1. No acute abnormality demonstrated. 2. Redemonstration of circumferential wall thickening of the distal esophagus, appears decreased fro m prior. 3. Percutaneous enteric tube coils in the stomach with the tip at the gastric outlet. Correlate for expected positioning. 4. Some fluid throughout small bowel loops with mild enhancement suggested, correlate for possible e nteritis. 5. Other chronic and likely incidental findings, as described above.
[2023-08-25 20:04] LABS: Glucose,Whole Blood 482 mg/dL (70-110)
[2023-08-25] MEDS ORDERED: NALOXONE 0.4 MG/ML 1 ML VIAL IV PRN (20:51)
[2023-08-25] MEDS ORDERED: ALPRAZolam 0.25 MG TAB PO PRN (20:53)
[2023-08-25] MEDS: HYDROcodone/APAP 7.5-325MG 1 EACH TAB PO PRN (21:30)
[2023-08-25] MEDS: MIRTAZAPINE 15 MG TAB PO SCH (21:30)
[2023-08-25] MEDS: METOCLOPRAMIDE 10 MG TAB PO SCH (21:31)
[2023-08-25 22:36] LABS: Glucose,Whole Blood 252 mg/dL (70-110)
[2023-08-25] MEDS: SODIUM CHLORIDE 0.9% 1,000 ML IV SCH (23:08)
[2023-08-26 05:47] LABS: Glucose,Whole Blood 248 mg/dL (70-110)
[2023-08-26] MEDS: PANTOPRAZOLE 40 MG TABLET PO SCH (06:01)
[2023-08-26] MEDS: INSULIN ASPART (NovoLOG) 100 UNIT/ML VIAL SQ SCH (06:02)
[2023-08-26] MEDS ORDERED: NON FORMULARY DRUG (Insulin Lispro [Humalog Kwikpen] 100 UNIT/ML Insuln.Pen) SQ SCH (07:30)
[2023-08-26] MEDS: IPRATROPIUM-ALBUTEROL 3 ML NEB INHALATION SCH ×2 (08:00→20:44)
[2023-08-26] MEDS: MAGNESIUM OXIDE 400 MG TAB PO SCH (08:58)
[2023-08-26] MEDS: INSULIN DETEMIR (LEVEMIR) 100 UNIT/ML SYR SQ SCH (08:59)
[2023-08-26] MEDS: ONDANSETRON 4 MG TAB PO SCH (08:59)
[2023-08-26] MEDS: POTASSIUM CHLORIDE ER 20 MEQ TAB.ER PO SCH (08:59)
[2023-08-26] MEDS: ATORVASTATIN 20 MG TAB PO SCH (08:59)
[2023-08-26] MEDS: FOLIC ACID 1 MG TAB PO SCH (08:59)
[2023-08-26] MEDS: DULoxetine HCL 30 MG CAPSULE.DR PO SCH (08:59)
[2023-08-26] MEDS: HYDROmorphone 1 MG/ML 1 ML SYRINGE IVP PRN (09:11)
[2023-08-26 11:12] LABS: Glucose,Whole Blood 129 mg/dL (70-110)
[2023-08-26 16:02] LABS: Glucose,Whole Blood 72 mg/dL (70-110)
[2023-08-26 16:21] VITALS: BMI 21.2
[2023-08-26 19:40] LABS: Glucose,Whole Blood 244 mg/dL (70-110)
--- NOTE | 2023-08-26 23:55 | HP ---
HISTORY AND PHYSICAL PHYSICAL EXAM: VITAL SIGNS: Stable. Afebrile. Blood pressure is 87/59, up to 131/87, pulse is 98 to 103, O2 saturation 95-99, pulse rate is in the low 100s. MUSCULOSKELETAL: Range of motion full x4. NEUROLOGIC: Cranial nerves, intact. She is thin cachectic. PSYCH: Fair mood and affect. SKIN: Dry mucous membranes. EKG shows sinus tach with no ST-T changes. Sodium was low 123, BUN 23, creatinine 0.46. ASSESSMENT: 1. Hyponatremia secondary to dehydration. 2. Hyperglycemia, possibly noncompliant with outpatient treatment as A1c recently has been well controlled. 3. Acute hypercarbic respiratory failure. Continue on breathing treatments. Rehydrate. Prognosis guarded. Please see further orders. MMODL / IJN: [id number] /
[2023-08-27 05:33] LABS: Glucose,Whole Blood 330 mg/dL (70-110)
[2023-08-27 08:10] VITALS: RESP 18
[2023-08-27 11:13] LABS: Basophils # (A) 0.05 X 10*3/uL (0.00-0.10); Basophils % (A) 0.8 %; Eosinophils # (A) 0.07 X 10*3/uL (0.04-0.35); Eosinophils % (A) 1.1 %; HCT 31.9 % (37.2-46.3); HGB 9.9 g/dL (12.0-15.0); Lymphocytes # (A) 1.42 X 10*3/uL (0.90-5.00); Lymphocytes % (A) 23.2 %; MCV 90.1 FL (80.0-97.0); Mean Platelet Volume 10.5 FL (9.5-12.2); Monocytes # (A) 0.27 X 10*3/uL (0.20-1.00); Monocytes % (A) 4.4 %; NRBC Per 100 WBC 0 X 10*3/uL (0.00-0.01); Neutrophils # (A) 4.29 X 10*3/uL (1.80-7.70); Neutrophils % (A) 70.3 %; Platelet Count 323 X 10*3/uL (140-440); RBC 3.54 X 10*6/uL (4.10-5.20); RDW 14.4 % (11.5-14.5); WBC 6.11 X 10*3/uL (4.50-10.00)
[2023-08-27 11:25] LABS: Glucose,Whole Blood 343 mg/dL (70-110)
[2023-08-27 11:26] LABS: ALT 15 U/L (8-44); AST 21 U/L (13-35); Albumin 2.8 g/dL (3.8-4.9); Albumin/Globulin Ratio 1.17 Ratio (1.60-3.17); Alkaline Phosphatase 84 U/L (41-126); BUN/Creat Ratio 34.75 Ratio (12.00-20.00); Blood Urea Nitrogen 13.9 mg/dL (9.0-27.0); Calcium 8.3 mg/dL (8.7-10.3); Carbon Dioxide 25.4 mmol/L (21.6-31.8); Chloride 102 mmol/L (96-109); Globulin 2.4 g/dL (1.6-3.3); Glucose 377 mg/dL (70-110); Potassium 5.1 mmol/L (3.5-5.5); Sodium 134 mmol/L (135-145); Total Bilirubin <0.2 mg/dL (0.3-1.2); Total Protein 5.2 g/dL (6.2-8.2)
[2023-08-27 14:45] VITALS: BP 105/72; TEMP 98.4
[2023-08-27 16:23] LABS: Glucose,Whole Blood 422 mg/dL (70-110)
[2023-08-27 16:28] VITALS: PULSE 96
[2023-08-27] MEDS: INSULIN ASPART (NovoLOG) 100 UNIT/ML VIAL SQ SCH (17:08)
== END 2023-08-27 18:53 | disposition home or self-care (01) | DRG 73 ==
LOC: EC 16:56 → 4SSUR 20:53
PROVIDERS: ADMIT Family Medicine; ATTEND Family Medicine
DX: E10.43 Type 1 diabetes mellitus with diabetic autonomic (poly)neuropathy (principal); J96.02 Acute respiratory failure with hypercapnia; E87.1 Hypo-osmolality and hyponatremia; K31.84 Gastroparesis; Z79.4 Long term (current) use of insulin; E86.0 Dehydration; Z28.21 Immunization not carried out because of patient refusal; F41.9 Anxiety disorder, unspecified; Z87.891 Personal history of nicotine dependence; Z91.199 Patient's noncompliance with other medical treatment and regimen due to unspecified reason
CPT/HCPCS: 36415; 74177; 80053; 81001; 82009; 82803; 83605; 83690; 83735; 85025; 93005; 94640; 96361; 96374; 96375; 99285

== ENCOUNTER 2023-09-03 09:44 | Inpatient (IN) | payer MEDICARE, OTHER ==
--- NOTE | 2023-09-03 10:20 | ED ---
General Adult HPI - General Chief complaint: Nausea/Vomiting/Diarrhea Stated complaint: Nausea Time Seen by Provider: 09/03/23 09:46 Source: patient, EMS Mode of arrival: EMS Limitations: no limitations - History of Present Illness Initial comments: Dictation was produced using [employer] dictation software. please excuse any grammatical, word or spelling errors. Chief Complaint: 53-year-old female presents with abdominal pain History of Present Illness: Patient is a 53-year-old female she has past medical history of gastroparesis. She has chronic abdominal pain. She is here for what she describes as a gastroparesis flare. States that the pain is to her epigastrium and lower chest. Nonradiating symptoms. She does have chronic nausea vomiting and diarrhea. She has a feeding tube. Denies any fever, chills or night sweats. Pain is nonradiating The ROS documented in this emergency department record has been reviewed and confirmed by me. Those systems with pertinent positive or negative responses have been documented in the HPI. All other systems are other negative and/or noncontributory. - Related Data Home Medications Medication Instructions Recorded Confirmed ALPRAZolam [Xanax] 0.25 mg PO BID PRN 05/12/23 08/25/23 Atorvastatin [Lipitor] 20 mg PO DAILY 05/12/23 08/25/23 DULoxetine HCL [Cymbalta] 30 mg PO DAILY 05/12/23 08/25/23 Insulin Lispro [humaLOG Kwikpen] 2 unit SQ AC-TID 05/12/23 08/25/23 Ipratropium-Albuterol Nebulize 3 ml INHALATION RT-BID 05/12/23 08/25/23 [Duoneb 0.5 mg-3 mg/3 ml Soln] Magnesium Oxide [Mag-Ox] 400 mg PO DAILY 05/12/23 08/25/23 Mirtazapine [Remeron] 30 mg PO HS 05/12/23 08/25/23 Potassium Chloride ER [K-Dur 20] 20 meq PO DAILY 05/12/23 08/25/23 Folic Acid 1 mg PO DAILY 06/15/23 08/25/23 HYDROcodone/APAP 7.5-325MG [[place] 1 tab PO TID PRN 08/25/23 08/25/23 7.5-325] Insulin Glargine [Lantus Vial] 2 unit SQ DAILY 08/25/23 08/25/23 Previous Rx's Medication Instructions Recorded Metoclopramide [Reglan] 10 mg PO ACHS 30 Days #120 tab 05/15/23 Pantoprazole [Protonix] 40 mg PO AC-BID 30 Days #60 tab 05/21/23 Ondansetron [Zofran] 4 mg PO DAILY 30 Days #30 tab 06/26/23 Allergies Allergy/AdvReac Type Severity Reaction Status Date / Time fentanyl Allergy Unknown Verified 09/03/23 10:08 Review of Systems ROS Statement: Those systems with pertinent positive or pertinent negative responses have been documented in the HPI. ROS Other: All systems not noted in ROS Statement are negative. Past Medical History Past Medical History: Diabetes Mellitus, Hypertension, Musculoskeletal Disorder Additional Past Medical History / Comment(s): FREQ NAUSEA, PAINFUL RT SHOULDER "FROZEN SHOULDER", NEUROPATHY PORFIRIO LEGS and hands, Blood pressures can run high History of Any Multi-Drug Resistant Organisms: MRSA Date of last positivie culture/infection: 05/19/23 MDRO Source:: Urine Past Surgical History: Orthopedic Surgery, Tubal Ligation Additional Past Surgical History / Comment(s): rt shoulder Past Anesthesia/Blood Transfusion Reactions: No Reported Reaction Additional Past Anesthesia/Blood Transfusion Reaction / Comment(s): UNK FAMILY H X Past Psychological History: Anxiety Smoking Status: Current every day smoker Past Alcohol Use History: None Reported Past Drug Use History: Marijuana - Past Family History Father History Unknown: Yes Additional Family Medical History / Comment(s): unknown-adopted Mother History Unknown: Yes Additional Family Medical History / Comment(s): unknown- adopted General Exam - General Exam Comments Initial Comments: PHYSICAL EXAM: General Impression: Alert and oriented x3, not in acute distress HEENT: Normocephalic atraumatic, extra-ocular movements intact, pupils equal and reactive to light bilaterally, mucous membranes moist. Cardiovascular: Heart regular rate and rhythm Chest: Able to complete full sentences, no retractions, no tachypnea Abdomen: abdomen soft, palpatory tenderness to the abdomen diffusely, non- distended, no organomegaly Musculoskeletal: Pulses present and equal in all extremities, no peripheral edema Motor: no focal deficits noted Neurological: CN II-XII grossly intact, no focal motor or sensory deficits noted Skin: Intact with no visualized rashes Psych: Normal affect and mood Limitations: no limitations Course Vital Signs 09/03/23 10:00 Temperature 97.6 F Pulse Rate 115 H Respiratory 18 Rate Blood Pressure 99/72 O2 Sat by Pulse 100 Oximetry EKG Findings - EKG Comments: EKG Findings:: My EKG interpretation: Ventricular rate 113, sinus tachycardia,. 121, QRS 72, QTc 3 3. No [place] prolongation, no QTC prolongation, no ST or T-wave changes noted. Overall, this EKG is unremarkable Medical Decision Making - Medical Decision Making Was pt. sent in by a medical professional or institution (, PA, PYROGLAZER, urgent care, hospital, or half-way...) When possible be specific @ -No Did you speak to anyone other than the patient for history (EMS, parent, family, police, friend...)? What history was obtained from this source @ -No Did you review nursing and triage notes (agree or disagree)? Why? @ -I reviewed and agree with nursing and triage notes Were old charts reviewed (outside hosp., previous admission, EMS record, old EKG, old radiological studies, urgent care reports/EKG's, half-way records)? Report findings @ -No old charts were reviewed Differential Diagnosis (chest pain, altered mental status, abdominal pain women, abdominal pain men, vaginal bleeding, musculoskeletal, weakness, fever, dyspnea, syncope, headache, dizziness, GI bleed, back pain, seizure, CVA, palpatations, mental health)? @ -Differential Abdominal Pain Women: Appendicitis, Cholecystitis, diverticulosis, ischemic bowel, pancreatitis, hepatitis, UTI, gastroenteritis, AAA, incarcerated hernia, bowel obstruction, constipation, inflammatory bowel, hepatitis, peptic ulcer disease, splenic infarction, perforated viscus, vulvitis, ovarian torsion, PID, kidney stone, placenta abruption, this is not meant to be an all-inclusive list EKG interpreted by me (3pts min.). @ -None done X-rays interpreted by me (1pt min.). @ -Abdominal x-ray is nonacute CT interpreted by me (1pt min.). @ -None done U/S interpreted by me (1pt. min.). @ -None done What testing was considered but not performed or refused? (CT, X-rays, U/S, labs)? Why? @ -None What meds were considered but not given or refused? Why? @ -None Did you discuss the management of the patient with other professionals (professionals i.e. DrLisa, PA, PYROGLAZER, lab, RT, psych nurse, social worker assistant, linux developer, teacher, morals squad police officer, skilled nursing case manager)? Give summary @ -Case discussed with Dr. Pike for hospital admission Was smoking cessation discussed for >3mins.? @ -No Was critical care preformed (if so, how long)? @ -No Were there social determinants of health that impacted care today? How? (Homelessness, low income, unemployed, alcoholism, drug addiction, transportation, low edu. Level, literacy, decrease access to med. care, usp, rehab)? @ -No Was there de-escalation of care discussed even if they declined (Discuss DNR or withdrawal of care, Hospice)? DNR status @ -No What co-morbidities impacted this encounter? (DM, HTN, Smoking, COPD, CAD, Cancer, CVA, ARF, Chemo, Hep., AIDS, mental health diagnosis, sleep apnea, morbid obesity)? @ -None Was patient admitted / discharged? Hospital course, mention meds given and route, prescriptions, significant lab abnormalities, going to OR and other pertinent info. @ -53-year-old female presents emergency department for acute on chronic abdominal pain. She has history of uncontrolled diabetes. Vital signs are within acceptable limits. Laboratory evaluation shows hyperglycemia 550 with pseudohyponatremia of 129. Patient given 10 units of IV insulin. Case discussed with hospitalist who requested that patient be admitted to the hospital and see our GI specialist. Undiagnosed new problem with uncertain prognosis? @ -No Drug Therapy requiring intensive monitoring for toxicity (Heparin, Nitro, Insulin, Cardizem)? @ -No Were any procedures done? @ -No Diagnosis/symptom? Acute, or Chronic, or Acute on Chronic? Uncomplicated (without systemic symptoms) or Complicated (systemic symptoms)? @ -Acute on chronic abdominal pain Side effects of treatment? @ -No Exacerbation, Progression, or Severe Exacerbation? @ -No Poses a threat to life or bodily function? How? (Chest pain, [place], [place], pneumonia, PE, COPD, DKA, ARF, appy, cholecystitis, CVA, Diverticulitis, Homicidal, Suicidal, threat to staff... and all critical care pts) @ -No - Lab Data Result diagrams: 09/03/23 10:12 09/03/23 10:12 Lab Results 09/03/23 09/03/23 Range/Units 10:12 10:12 WBC 7.6 (3.8-10.6) k/uL RBC 4.37 (3.80-5.40) m/uL Hgb 12.4 (11.4-16.0) gm/dL Hct 38.8 (34.0-46.0) % MCV 88.9 (80.0-100.0) fL MCH 28.4 (25.0-35.0) pg MCHC 31.9 (31.0-37.0) g/dL RDW 15.0 (11.5-15.5) % Plt Count 381 (150-450) k/uL MPV 8.0 Neutrophils % 64 % Lymphocytes % 27 % Monocytes % 4 % Eosinophils % 2 % Basophils % 2 % Neutrophils # 4.9 (1.3-7.7) k/uL Lymphocytes # 2.0 (1.0-4.8) k/uL Monocytes # 0.3 (0-1.0) k/uL Eosinophils # 0.1 (0-0.7) k/uL Basophils # 0.1 (0-0.2) k/uL Sodium 129 L (137-145) mmol/L Potassium 5.5 H (3.5-5.1) mmol/L Chloride 95 L (98-107) mmol/L Carbon Dioxide 27 (22-30) mmol/L Anion Gap 7 mmol/L BUN 26 H (7-17) mg/dL Creatinine 0.47 L (0.52-1.04) mg/dL Est GFR (CKD-EPI)AfAm >90 (>60 ml/min/1.73 sqM) Est GFR (CKD-EPI)NonAf >90 (>60 ml/min/1.73 sqM) Glucose 550 H* (74-99) mg/dL Calcium 9.5 (8.4-10.2) mg/dL Magnesium 2.2 (1.6-2.3) mg/dL Total Bilirubin 0.3 (0.2-1.3) mg/dL AST 25 (14-36) U/L ALT 18 (4-34) U/L Alkaline Phosphatase 108 (38-126) U/L Total Protein 6.7 (6.3-8.2) g/dL Albumin 3.5 (3.5-5.0) g/dL Lipase 147 (23-300) U/L Disposition Clinical Impression: Abdominal pain Disposition: ADMITTED IP TO THIS HOSP Condition: Fair Referrals: Dell Pike MD [Primary Care Provider] - 1-2 days Decision Time: 11:59
[2023-09-03 10:49] LABS: Basophils # (A) 0.1 k/uL (0-0.2); Basophils % (A) 2 %; Eosinophils # (A) 0.1 k/uL (0-0.7); Eosinophils % (A) 2 %; HCT 38.8 % (34.0-46.0); HGB 12.4 gm/dL (11.4-16.0); Lymphocytes % (A) 27 %; MCH 28.4 pg (25.0-35.0); MCHC 31.9 g/dL (31.0-37.0); MCV 88.9 fL (80.0-100.0); Monocytes # (A) 0.3 k/uL (0-1.0); Monocytes % (A) 4 %; Neutrophils # (A) 4.9 k/uL (1.3-7.7); Neutrophils % (A) 64 %; Platelet Count 381 k/uL (150-450); RBC 4.37 m/uL (3.80-5.40); WBC 7.6 k/uL (3.8-10.6)
[2023-09-03 11:06] LABS: ALT 18 U/L (4-34); AST 25 U/L (14-36); African American GFR (CKD) >90 (>60 ml/min/1.73 sqM); Albumin 3.5 g/dL (3.5-5.0); Alkaline Phosphatase 108 U/L (38-126); Anion Gap 7 mmol/L; Blood Urea Nitrogen 26 mg/dL (7-17); Calcium 9.5 mg/dL (8.4-10.2); Carbon Dioxide 27 mmol/L (22-30); Chloride 95 mmol/L (98-107); Lipase 147 U/L (23-300); Magnesium 2.2 mg/dL (1.6-2.3); Non-African American GFR(CKD) >90 (>60 ml/min/1.73 sqM); Potassium 5.5 mmol/L (3.5-5.1); Sodium 129 mmol/L (137-145); Total Bilirubin 0.3 mg/dL (0.2-1.3); Total Protein 6.7 g/dL (6.3-8.2)
[2023-09-03 11:10] LABS: Glucose 550 mg/dL (74-99)
--- NOTE | 2023-09-03 11:31 | XR ---
EXAMINATION TYPE: XR abdomen acute w cxr DATE OF EXAM: 09/03/2023 10:54 AM CLINICAL INDICATION:Female, 53 years old with history of abdominal pain; [facility] COMPARISON: None. TECHNIQUE: Two radiographic views of the abdomen (upright and supine) and a frontal chest radiograph were obtained. FINDINGS CHEST: Lungs/Pleura: The lungs are clear. There is no evidence of pleural effusion, focal consolidation or p neumothorax. Mediastinum: Unremarkable. Vasculature: Normal. Heart: Normal in size. Musculoskeletal: The osseous structures are intact. Other findings: No significant. FINDINGS ABDOMEN: Bowel gas pattern: Normal without dilated loops of small or large bowel. Fecal material and gas are d emonstrated throughout the colon and rectum. PEG tube in stomach Abnormal calcifications: None. Musculoskeletal: Normal. Other: None. IMPRESSION: 1. No radiographic evidence for acute abdominal process. 2. No acute cardiopulmonary process
[2023-09-03] MEDS: INSULIN REGULAR 100 UNIT/ML VIAL (IV) IV ONE (11:46)
[2023-09-03] MEDS: SODIUM CHLORIDE 0.9% 1,000 ML IV STA ×2 (11:47→12:21)
[2023-09-03] MEDS ORDERED: NALOXONE 0.4 MG/ML 1 ML VIAL IV PRN (11:51)
[2023-09-03] MEDS: MORPHINE SULFATE 4 MG/ML SYRINGE IV STA (12:20)
[2023-09-03] MEDS: ONDANSETRON 4 MG/2 ML VIAL IVP STA (12:20)
[2023-09-03] MEDS: SODIUM CHLORIDE 0.9% 1,000 ML IV SCH (12:21)
[2023-09-03 12:47] LABS: Glucose,Whole Blood 287 mg/dL (70-110)
[2023-09-03] MEDS ORDERED: ALPRAZolam 0.25 MG TAB PO PRN (14:45)
[2023-09-03] MEDS ORDERED: DEXTROSE 50% SYRINGE 50 ML IVP PRN ×2 (14:47)
[2023-09-03] MEDS: HYDROcodone/APAP 7.5-325MG 1 EACH TAB PO PRN (16:20)
[2023-09-03] MEDS ORDERED: HYDROmorphone 0.5 MG/0.5 ML SYRINGE IM PRN (16:54)
[2023-09-03] MEDS: METOCLOPRAMIDE 10 MG TAB PO SCH (16:58)
[2023-09-03] MEDS: PANTOPRAZOLE 40 MG TABLET PO SCH (16:58)
[2023-09-03 17:32] LABS: Glucose,Whole Blood 183 mg/dL (70-110)
[2023-09-03] MEDS: INSULIN ASPART (NovoLOG) 100 UNIT/ML VIAL SQ SCH (18:04)
[2023-09-03] MEDS: HYDROmorphone 0.5 MG/0.5 ML SYRINGE IVP PRN (18:11)
[2023-09-03] MEDS: IPRATROPIUM-ALBUTEROL 3 ML NEB INHALATION SCH (20:08)
[2023-09-03 20:33] LABS: Glucose,Whole Blood 248 mg/dL (70-110)
[2023-09-03] MEDS: MIRTAZAPINE 15 MG TAB PO SCH (21:55)
[2023-09-04 07:31] LABS: Glucose,Whole Blood 402 mg/dL (70-110)
[2023-09-04 08:07] LABS: ALT 14 U/L (4-34); AST 22 U/L (14-36); African American GFR (CKD) >90 (>60 ml/min/1.73 sqM); Albumin 2.6 g/dL (3.5-5.0); Alkaline Phosphatase 86 U/L (38-126); Anion Gap 4 mmol/L; Blood Urea Nitrogen 27 mg/dL (7-17); Calcium 8.4 mg/dL (8.4-10.2); Carbon Dioxide 24 mmol/L (22-30); Chloride 102 mmol/L (98-107); Globulin 2.6 g/dL; Glucose 415 mg/dL (74-99); Non-African American GFR(CKD) >90 (>60 ml/min/1.73 sqM); Potassium 4.7 mmol/L (3.5-5.1); Sodium 130 mmol/L (137-145); Total Bilirubin 0.2 mg/dL (0.2-1.3); Total Protein 5.2 g/dL (6.3-8.2)
[2023-09-04] MEDS: ATORVASTATIN 20 MG TAB PO SCH (08:25)
[2023-09-04] MEDS: POTASSIUM CHLORIDE ER 20 MEQ TAB.ER PO SCH (08:25)
[2023-09-04] MEDS: ONDANSETRON 4 MG TAB PO SCH (08:25)
[2023-09-04] MEDS: FOLIC ACID 1 MG TAB PO SCH (08:25)
[2023-09-04] MEDS: MAGNESIUM OXIDE 400 MG TAB PO SCH (08:26)
[2023-09-04] MEDS: DULoxetine HCL 30 MG CAPSULE.DR PO SCH (08:26)
--- NOTE | 2023-09-04 11:26 | P.CONS ---
History of Present Illness - Reason for Consult Consult date: 09/04/23 Gastroparesis Requesting physician: Dakota Fish - Chief Complaint Nausea and vomiting - History of Present Illness This a pleasant 53-year-old female with a history of uncontrolled diabetes mellitus, chronic abdominal pain, gastroparesis who has a J-tube for additional nutrition who presented to the emergency department yesterday with complaints of nausea, vomiting and diarrhea. During this hospitalization patient sugars again have been elevated this morning they were up in the 400s. She states she is not having any further nausea or vomiting, no abdominal pain, has been afebrile. She is currently sitting up eating breakfast. Her last upper endoscopy was on 07/09/[address] Garzon with replacement of J-tube. Last EGD done by Dr. Bear done on 05/17/2023 with findings of esophagitis, antral gastritis duodenal polyp and retained food consistent with diabetic gastroparesis. Review of Systems REVIEW OF SYSTEMS: CARDIOPULMONARY: No chest pain or shortness of breath. Gastrointestinal: Denies epigastric or abdominal pain at this time. No nausea or vomiting. No hematemesis, coffee-ground emesis. No rectal bleeding, or melena. GENITOURINARY: No dysuria or hematuria. MUSCULOSKELETAL: Reports normal range of motion. SKIN: No rashes. No jaundice. ENDOCRINE: No chills, fevers. No excessive weight gain or loss. No polydipsia or polyuria. PSYCHIATRIC: Unremarkable. NEUROLOGY: No change in mental status. Denies dizziness, headache. ENT: Vision unremarkable. CONSTITUTIONAL: No recent weight loss. No fever, chills, night sweats. Past Medical History Past Medical History: Diabetes Mellitus, Hypertension, Musculoskeletal Disorder Additional Past Medical History / Comment(s): FREQ NAUSEA, PAINFUL RT SHOULDER "FROZEN SHOULDER", NEUROPATHY PORFIRIO LEGS and hands, Blood pressures can run high History of Any Multi-Drug Resistant Organisms: MRSA Year Discovered:: 05/19/23 MDRO Source:: Urine Past Surgical History: Orthopedic Surgery, Tubal Ligation Additional Past Surgical History / Comment(s): rt shoulder Past Anesthesia/Blood Transfusion Reactions: No Reported Reaction Additional Past Anesthesia/Blood Transfusion Reaction / Comm: UNK FAMILY HX Past Psychological History: Anxiety Smoking Status: Current every day smoker Past Alcohol Use History: None Reported Additional Past Alcohol Use History / Comment(s): STARTED SMOKING 1987 Past Drug Use History: Marijuana Additional Drug Use History / Comment(s): HAS MEDICAL MARIJUANA CARD-USES DAILY AND FREQUENTLY no longer using frequently only occasional - Past Family History Father History Unknown: Yes Additional Family Medical History / Comment(s): unknown-adopted Mother History Unknown: Yes Additional Family Medical History / Comment(s): unknown- adopted Medications and Allergies Home Medications Medication Instructions Recorded Confirmed Type ALPRAZolam [Xanax] 0.25 mg PO BID PRN 05/12/23 09/03/23 History Atorvastatin [Lipitor] 20 mg PO DAILY 05/12/23 09/03/23 History DULoxetine HCL [Cymbalta] 30 mg PO DAILY 05/12/23 09/03/23 History Insulin Lispro [humaLOG Kwikpen] 2 unit SQ AC-TID 05/12/23 09/03/23 History Ipratropium-Albuterol Nebulize 3 ml INHALATION RT-BID 05/12/23 09/03/23 History [Duoneb 0.5 mg-3 mg/3 ml Soln] Magnesium Oxide [Mag-Ox] 400 mg PO DAILY 05/12/23 09/03/23 History Mirtazapine [Remeron] 30 mg PO HS 05/12/23 09/03/23 History Potassium Chloride ER [K-Dur 20] 20 meq PO DAILY 05/12/23 09/03/23 History Metoclopramide [Reglan] 10 mg PO ACHS 30 Days #120 tab 05/15/23 09/03/23 Rx Pantoprazole [Protonix] 40 mg PO AC-BID 30 Days #60 tab 05/21/23 09/03/23 Rx Folic Acid 1 mg PO DAILY 06/15/23 09/03/23 History Ondansetron [Zofran] 4 mg PO DAILY 30 Days #30 tab 06/26/23 09/03/23 Rx HYDROcodone/APAP 7.5-325MG [[place] 1 tab PO TID PRN 08/25/23 09/03/23 History 7.5-325] Insulin Glargine [Lantus Vial] 3 unit SQ DAILY 08/25/23 09/03/23 History Insulin Lispro [humaLOG Kwikpen] See Protocol SQ AC-TID 09/03/23 09/03/23 H istory Allergies Allergy/AdvReac Type Severity Reaction Status Date / Time fentanyl Allergy Unknown Verified 09/03/23 12:06 Physical Exam Vitals: Vital Signs Temp Pulse Pulse Resp BP BP BP 09/04/23 01:09 97.9 F 97 15 100/63 09/03/23 20:19 101 H 09/03/23 20:09 100 09/03/23 19:00 97.8 F 100 15 91/60 09/03/23 13:43 97.6 F 101 H 16 95/67 09/03/23 13:15 98.0 F 98 14 108/69 09/03/23 12:45 102 H 14 116/74 09/03/23 12:30 112 H 14 138/86 09/03/23 12:00 108 H 16 165/107 09/03/23 11:30 110 H 15 155/108 09/03/23 11:00 109 H 15 149/97 09/03/23 10:00 97.6 F 115 H 18 99/72 Pulse Ox 09/04/23 01:09 96 09/03/23 20:19 09/03/23 20:09 09/03/23 19:00 93 L 09/03/23 13:43 99 09/03/23 13:15 97 09/03/23 12:45 97 09/03/23 12:30 100 09/03/23 12:00 98 09/03/23 11:30 99 09/03/23 11:00 100 09/03/23 10:00 100 Intake and Output 09/03/23 09/04/23 09/04/23 22:59 06:59 14:59 Other: Voiding Method Toilet Weight 33.169 kg General appearance: The patient is alert, oriented, appears in no acute distress. HET: Head is normocephalic and atraumatic. Conjunctiva pink. Sclera anicteric. Neck: Supple without lymphadenopathy. Trachea midline. Heart: Regular. Lungs: Equal expansion, normal respiratory effort. Abdomen: Soft, thin, nontender, nondistended. Skin: No rashes. No jaundice. Extremities: Normal skin color and turgor. No pedal edema. Neurological: No focal deficits. Alert and oriented x3. Results CBC & Chem 7: 09/03/23 10:12 09/04/23 07:25 Labs: Abnormal Lab Results - Last 24 Hours (Table) 09/03/23 09/03/23 09/03/23 Range/Units 10:12 12:47 17:30 Sodium 129 L (137-145) mmol/L Potassium 5.5 H (3.5-5.1) mmol/L Chloride 95 L (98-107) mmol/L BUN 26 H (7-17) mg/dL Creatinine 0.47 L (0.52-1.04) mg/dL Glucose 550 H* (74-99) mg/dL POC Glucose (mg/dL) 287 H 183 H (70-110) mg/dL 09/03/23 09/04/23 Range/Units 20:31 07:30 Sodium (137-145) mmol/L Potassium (3.5-5.1) mmol/L Chloride (98-107) mmol/L BUN (7-17) mg/dL Creatinine (0.52-1.04) mg/dL Glucose (74-99) mg/dL POC Glucose (mg/dL) 248 H 402 H (70-110) mg/dL Comments: Acute abdominal x-ray series reports no radiographic evidence for acute abdominal process. No acute cardiopulmonary process. Assessment and Plan (1) Diabetic gastroparesis Narrative/Plan: 53-year-old female with longstanding history of diabetes mellitus, not well- controlled. She has known diabetic gastroparesis and has even required a G-tube insertion for malnutrition. Presented for nausea vomiting and diarrhea which has completely resolved. She has had 2 upper endoscopies within the last 4 months. There is no need for repeat endoscopy. Again symptoms have resolved, no further workup from gastroenterology. Continue with symptomatic and supportive care. Continue with antiemetics as needed. Discussed with patient importance of strict glycemic control. Current Visit: No Status: Acute Code(s): E11.43 - TYPE 2 DIABETES W DIABETIC AUTONOMIC (POLY)NEUROPATHY; K31.84 - GASTROPARESIS SNOMED Code(s): 177023480 (2) Nausea & vomiting Current Visit: No Status: Acute Code(s): R11.2 - NAUSEA WITH VOMITING, UNSPECIFIED SNOMED Code(s): 31836203 Plan: 1. Continue symptomatic and supportive care 2. Antiemetics as needed 3. Small frequent meals versus large meals 4. Continue with tube feedings as ordered per dietitian 5. Recommend strict glycemic control 6. No further workup recommended per gastroenterology Thank you for this consultation, we will sign off at this time. Dr. Shakira Bear I agree with the dictator's note, documented as a scribe by Leigh Ordonez.
[2023-09-04 11:46] LABS: Glucose,Whole Blood 404 mg/dL (70-110)
[2023-09-04 11:52] LABS: Basophils # (A) 0.08 X 10*3/uL (0.00-0.10); Basophils % (A) 1.5 %; Eosinophils # (A) 0.15 X 10*3/uL (0.04-0.35); Eosinophils % (A) 2.8 %; HCT 31.3 % (37.2-46.3); HGB 9.6 g/dL (12.0-15.0); Lymphocytes # (A) 1.71 X 10*3/uL (0.90-5.00); Lymphocytes % (A) 31.9 %; MCH 27.7 pg (27.0-32.0); MCHC 30.7 g/dL (32.0-37.0); MCV 90.5 FL (80.0-97.0); Mean Platelet Volume 10.1 FL (9.5-12.2); Monocytes # (A) 0.37 X 10*3/uL (0.20-1.00); Monocytes % (A) 6.9 %; NRBC Per 100 WBC 0 X 10*3/uL (0.00-0.01); Neutrophils # (A) 3.04 X 10*3/uL (1.80-7.70); Neutrophils % (A) 56.7 %; Platelet Count 329 X 10*3/uL (140-440); RBC 3.46 X 10*6/uL (4.10-5.20); RDW 14.5 % (11.5-14.5); WBC 5.36 X 10*3/uL (4.50-10.00)
[2023-09-04 14:00] VITALS: BMI 14.8
[2023-09-04 17:01] LABS: Glucose,Whole Blood 270 mg/dL (70-110)
[2023-09-04 20:34] LABS: Glucose,Whole Blood 279 mg/dL (70-110)
[2023-09-04] MEDS: INSULIN DETEMIR (LEVEMIR) 100 UNIT/ML SYR SQ SCH (21:24)
--- NOTE | 2023-09-05 05:49 | HP ---
HISTORY AND PHYSICAL HISTORY OF PRESENT ILLNESS: A 53-year-old white female with uncontrolled diabetes mellitus, gastroparesis, has a J-tube for nutrition secondary to severe malnutrition. Seen by GI doctor. She had elevated blood sugars at home. She does not follow a regular diet at home. She is sitting up. She has not vomited since she has been admitted though. She had a recent G- tube replaced. She had EGD by Dr. Bear on 05/17/2023 with esophagitis, antral gastritis, duodenal polyp. She is improved with gastroparesis. REVIEW OF SYSTEMS: A 14-point review of systems otherwise is negative. PAST MEDICAL HISTORY: Malnutrition, diabetes mellitus, gastroparesis, severe hypertension, degenerative disk disease, COPD, history of MRSA. SOCIAL HISTORY: Current everyday smoker, marijuana. FAMILY HISTORY: Father unknown. Mother unknown. HOME MEDICINES: 1. Xanax 0.25 b.i.d. for anxiety. 2. Lipitor 20 mg daily for dyslipidemia. 3. Cymbalta 30 mg daily. 4. Insulin lispro 2 units before meals t.i.d. 5. DuoNeb updrafts b.i.d. 6. Mag oxide 400 daily. 7. Remeron 30 at night. 8. Protonix 40 mg b.i.d. 9. Reglan 10 mg before meals and at bedtime. 10.K-Dur 20 mEq daily. 11.Zofran 4 mg daily. 12.Folic acid 1 mg daily. 13.[place] 7.5 t.i.d. 14.Lantus 3 units subcu daily. 15.Humalog before meals t.i.d. ALLERGIES: Fentanyl. PHYSICAL EXAMINATION: VITAL SIGNS: Temperature is 97 to 98, pulse is low 100s to 115, respiratory rate 14 to 18, blood pressure is 99 to 160s over 72 to 107. GENERAL: Thin, cachectic, low BMI, malnourished. She looks in no acute distress. CARDIOVASCULAR: S1, S2. LUNGS: Scattered wheezes x4. INTEGUMENT: Dry skin turgor. No jaundice. NEUROLOGIC: Malnourished and cachectic. Cranial nerves intact. PSYCH: Fair mood and affect. GI: She has a J-tube in place. OPHTHALMOLOGIC: Pupils equal, round, reactive. NECK: Supple. No mass. LABORATORY DATA: Sodium is 130, potassium is 4.7, BUN is 27, creatinine 0.56. ASSESSMENT: Malnourishment, severe gastroparesis, insulin-dependent diabetes mellitus type 1 with multiple failures at home. She is scheduled to get a gastric pump in the next month or 2 in [facility]. Continue to monitor for nausea, vomiting. Advance diet, sugar control, antiemetics, tube feedings, glycemic control. No further workup per GI. Prognosis guarded. MMODL / IJN: [id number] /
[2023-09-05 07:22] LABS: ALT 15 U/L (4-34); AST 22 U/L (14-36); African American GFR (CKD) >90 (>60 ml/min/1.73 sqM); Albumin 2.5 g/dL (3.5-5.0); Albumin/Globulin Ratio 0.9; Alkaline Phosphatase 99 U/L (38-126); Anion Gap 2 mmol/L; Blood Urea Nitrogen 28 mg/dL (7-17); Calcium 8.3 mg/dL (8.4-10.2); Carbon Dioxide 22 mmol/L (22-30); Chloride 107 mmol/L (98-107); Globulin 2.9 g/dL; Glucose 344 mg/dL (74-99); Non-African American GFR(CKD) >90 (>60 ml/min/1.73 sqM); Potassium 5.4 mmol/L (3.5-5.1); Sodium 131 mmol/L (137-145); Total Bilirubin 0.1 mg/dL (0.2-1.3); Total Protein 5.4 g/dL (6.3-8.2)
[2023-09-05 07:52] LABS: Glucose,Whole Blood 316 mg/dL (70-110)
[2023-09-05 07:54] LABS: Basophils # (A) 0.1 k/uL (0-0.2); Basophils % (A) 1 %; Eosinophils # (A) 0.2 k/uL (0-0.7); Eosinophils % (A) 3 %; HCT 34.8 % (34.0-46.0); HGB 10.5 gm/dL (11.4-16.0); Hypochromasia Moderate; Lymphocytes # (A) 1.4 k/uL (1.0-4.8); Lymphocytes % (A) 19 %; MCH 27.9 pg (25.0-35.0); MCHC 30.2 g/dL (31.0-37.0); MCV 92.4 fL (80.0-100.0); Mean Platelet Volume 9.2; Monocytes # (A) 0.4 k/uL (0-1.0); Monocytes % (A) 6 %; Neutrophils # (A) 5.1 k/uL (1.3-7.7); Neutrophils % (A) 70 %; Platelet Count 362 k/uL (150-450); RBC 3.77 m/uL (3.80-5.40); RDW 14.9 % (11.5-15.5); WBC 7.3 k/uL (3.8-10.6)
[2023-09-05 08:32] VITALS: RESP 16
[2023-09-05] MEDS: INSULIN ASPART (NovoLOG) 100 UNIT/ML VIAL SQ SCH (08:36)
[2023-09-05 12:17] LABS: Glucose,Whole Blood 300 mg/dL (70-110)
[2023-09-05] MEDS: ONDANSETRON 4 MG/2 ML VIAL IVP PRN (12:57)
[2023-09-05 13:18] VITALS: BP 162/96; PULSE 110; TEMP 98.1
[2023-09-05 17:10] LABS: Glucose,Whole Blood 245 mg/dL (70-110)
[2023-09-06] MEDS ORDERED: LOSARTAN-HCTZ 50-12.5 MG 1 EACH TAB PO SCH (09:00)
== END 2023-09-05 18:50 | disposition home or self-care (01) | DRG 73 ==
LOC: EC 09:44 → 5NMEDONC 11:54 → OBSVTOIN 09-05 08:19
PROVIDERS: ADMIT Family Medicine; ATTEND Family Medicine
DX: E10.43 Type 1 diabetes mellitus with diabetic autonomic (poly)neuropathy (principal); E43 Unspecified severe protein-calorie malnutrition; Z68.1 Body mass index [BMI] 19.9 or less, adult; E10.42 Type 1 diabetes mellitus with diabetic polyneuropathy; G89.29 Other chronic pain; I10 Essential (primary) hypertension; K31.84 Gastroparesis; J44.9 Chronic obstructive pulmonary disease, unspecified; Z86.14 Personal history of Methicillin resistant Staphylococcus aureus infection; Z79.899 Other long term (current) drug therapy; F17.210 Nicotine dependence, cigarettes, uncomplicated
CPT/HCPCS: 36415; 74022; 80053; 83036; 83690; 83735; 85025; 93005; 94640; 96361; 96374; 96375; 99285

== ENCOUNTER 2023-09-16 10:35 | Inpatient (IN) | payer MEDICARE, OTHER ==
[2023-09-16 10:44] LABS: Glucose,Whole Blood 566 mg/dL (70-110)
--- NOTE | 2023-09-16 12:04 | ED ---
General Adult HPI - General Chief complaint: Abdominal Pain Stated complaint: abd pain Time Seen by Provider: 09/16/23 11:52 Source: patient, EMS, RN notes reviewed, old records reviewed Mode of arrival: EMS Limitations: no limitations - History of Present Illness Initial comments: 53-year-old female history of type 1 diabetes presents with elevated blood sugar, nausea vomiting and diarrhea. Patient has history of type 1 diabetes and gastroparesis. She has had several days of generalized abdominal pain, nausea vomiting, diarrhea. She states this is typical of previous recurrent episodes that she has had in the past. Blood sugar was over 500 by paramedics. She denies fever. - Related Data Home Medications Medication Instructions Recorded Confirmed ALPRAZolam [Xanax] 0.25 mg PO BID PRN 05/12/23 09/03/23 Atorvastatin [Lipitor] 20 mg PO DAILY 05/12/23 09/03/23 DULoxetine HCL [Cymbalta] 30 mg PO DAILY 05/12/23 09/03/23 Insulin Lispro [humaLOG Kwikpen] 2 unit SQ AC-TID 05/12/23 09/03/23 Ipratropium-Albuterol Nebulize 3 ml INHALATION RT-BID 05/12/23 09/03/23 [Duoneb 0.5 mg-3 mg/3 ml Soln] Magnesium Oxide [Mag-Ox] 400 mg PO DAILY 05/12/23 09/03/23 Mirtazapine [Remeron] 30 mg PO HS 05/12/23 09/03/23 Potassium Chloride ER [K-Dur 20] 20 meq PO DAILY 05/12/23 09/03/23 Folic Acid 1 mg PO DAILY 06/15/23 09/03/23 HYDROcodone/APAP 7.5-325MG [[place] 1 tab PO TID PRN 08/25/23 09/03/23 7.5-325] Insulin Glargine [Lantus Vial] 3 unit SQ DAILY 08/25/23 09/03/23 Insulin Lispro [humaLOG Kwikpen] See Protocol SQ AC-TID 09/03/23 09/03/23 Previous Rx's Medication Instructions Recorded Metoclopramide [Reglan] 10 mg PO ACHS 30 Days #120 tab 05/15/23 Pantoprazole [Protonix] 40 mg PO AC-BID 30 Days #60 tab 05/21/23 Ondansetron [Zofran] 4 mg PO DAILY 30 Days #30 tab 06/26/23 Losartan-Hctz 50-12.5 mg [Hyzaar 1 each PO DAILY 90 Days #90 tab 09/05/23 50-12.5] Allergies Allergy/AdvReac Type Severity Reaction Status Date / Time fentanyl Allergy Unknown Verified 09/16/23 10:43 Review of Systems ROS Statement: Those systems with pertinent positive or pertinent negative responses have been documented in the HPI. ROS Other: All systems not noted in ROS Statement are negative. Past Medical History Past Medical History: Diabetes Mellitus, Hypertension, Musculoskeletal Disorder Additional Past Medical History / Comment(s): FREQ NAUSEA, PAINFUL RT SHOULDER "FROZEN SHOULDER", NEUROPATHY PORFIRIO LEGS and hands, Blood pressures can run high History of Any Multi-Drug Resistant Organisms: MRSA Date of last positivie culture/infection: 05/19/23 MDRO Source:: Urine Past Surgical History: Orthopedic Surgery, Tubal Ligation Additional Past Surgical History / Comment(s): rt shoulder Past Anesthesia/Blood Transfusion Reactions: No Reported Reaction Additional Past Anesthesia/Blood Transfusion Reaction / Comment(s): UNK FAMILY HX Past Psychological History: Anxiety Smoking Status: Current every day smoker Past Alcohol Use History: None Reported Past Drug Use History: Marijuana - Past Family History Father History Unknown: Yes Additional Family Medical History / Comment(s): unknown-adopted Mother History Unknown: Yes Additional Family Medical History / Comment(s): unknown- adopted General Exam Limitations: no limitations General appearance: alert, cachectic Head exam: Present: atraumatic, normocephalic Eye exam: Present: normal appearance, PERRL ENT exam: Present: mucous membranes dry Neck exam: Present: normal inspection. Absent: tenderness Respiratory exam: Present: normal lung sounds bilaterally. Absent: respiratory distress, wheezes Cardiovascular Exam: Present: normal rhythm, tachycardia GI/Abdominal exam: Present: tenderness. Absent: distended Extremities exam: Present: normal inspection, normal capillary refill Neurological exam: Present: alert, oriented X3, CN II-XII intact. Absent: motor sensory deficit Skin exam: Present: warm, dry, intact Course Vital Signs 09/16/23 09/16/23 10:36 12:16 Temperature 97.7 F Pulse Rate 107 H 98 Respiratory 18 16 Rate Blood Pressure 119/84 106/69 O2 Sat by Pulse 98 100 Oximetry Medical Decision Making - Medical Decision Making Was pt. sent in by a medical professional or institution (, DANA, ASSISTANT DIRECTOR OF NURSING, urgent care, hospital, or chcf...) When possible be specific @ -No Did you speak to anyone other than the patient for history (EMS, parent, family, police, friend...)? What history was obtained from this source @ -No Did you review nursing and triage notes (agree or disagree)? Why? @ -I reviewed and agree with nursing and triage notes Were old charts reviewed (outside hosp., previous admission, EMS record, old EKG, old radiological studies, urgent care reports/EKG's, ch[facility] records)? Report findings @ -No old charts were reviewed Differential Diagnosis (chest pain, altered mental status, abdominal pain women, abdominal pain men, vaginal bleeding, weakness, fever, dyspnea, syncope, headache, dizziness, GI bleed, back pain, seizure, CVA, palpatations, mental health, musculoskeletal)? @ -Differential Weakness: Hypoglycemia, shock, sepsis, hyponatremia, anemia, infection, LA, ETOH, adverse medicine reaction, overdose, stroke, this is not meant to be an all-inclusive list. EKG interpreted by me (3pts min.). @ -EKG: Sinus tachycardia rate of 106, [place] interval 104, QRS duration 70, QTc [address] segment elevation, short [place] interval. X-rays interpreted by me (1pt min.). @ -None done CT interpreted by me (1pt min.). @ -None done U/S interpreted by me (1pt. min.). @ -None done What testing was considered but not performed or refused? (CT, X-rays, U/S, labs)? Why? @ -None What meds were considered but not given or refused? Why? @ -None Did you discuss the management of the patient with other professionals (professionals i.e. DANA Rosales, ASSISTANT DIRECTOR OF NURSING, lab, RT, psych nurse, psychotherapist social worker, porter head, teacher, security officer, case work aide)? Give summary @ -No Was smoking cessation discussed for >3mins.? @ -No Was critical care preformed (if so, how long)? @ -No Were there social determinants of health that impacted care today? How? (Homelessness, low income, unemployed, alcoholism, drug addiction, transportation, low edu. Level, literacy, decrease access to med. care, [facility], rehab)? @ -No Was there de-escalation of care discussed even if they declined (Discuss DNR or withdrawal of care, Hospice)? DNR status @ -No What co-morbidities impacted this encounter? (DM, HTN, Smoking, COPD, CAD, Cancer, CVA, ARF, Chemo, Hep., AIDS, mental health diagnosis, sleep apnea, morbid obesity)? @ -Type I diabetic Was patient admitted / discharged? Hospital course, mention meds given and route, prescriptions, significant lab abnormalities, going to OR and other pertinent info. @ -[53-year-old female with gastroparesis, type I diabetic presenting with dehydration, hyperglycemia, nausea vomiting diarrhea. Patient's vital signs are stable. She has a normal CBC, CMP showing sodium of 123 blood glucose of 590 without signs diabetic ketoacidosis. Sodium is likely secondary to pseudohyponatremia. Patient is given IV fluids and started on insulin drip. She will be admitted to Dr. Pike. Undiagnosed new problem with uncertain prognosis? @ -No Drug Therapy requiring intensive monitoring for toxicity (Heparin, Nitro, Insulin, Cardizem)? @ -No Were any procedures done? @ -No Diagnosis/symptom? @Hyperglycemia, pseudohyponatremia, dehydration Acute, or Chronic, or Acute on Chronic? @ -[Acute on chronic Uncomplicated (without systemic symptoms) or Complicated (systemic symptoms)? @ -Default Side effects of treatment? @ -No Exacerbation, Progression, or Severe Exacerbation? @ -No Poses a threat to life or bodily function? How? (Chest pain, USA, LA, pneumonia, PE, COPD, DKA, ARF, appy, cholecystitis, CVA, Diverticulitis, Homicidal, Suicidal, threat to staff... and all critical care pts) @ -Yes, DKA - Lab Data Result diagrams: 09/16/23 12:04 09/16/23 12:04 Lab Results 09/16/23 09/16/23 09/16/23 Range/Units 10:42 12:04 12:04 WBC 7.6 (3.8-10.6) k/uL RBC 5.00 (3.80-5.40) m/uL Hgb 14.0 D (11.4-16.0) gm/dL Hct 44.9 (34.0-46.0) % MCV 89.8 (80.0-100.0) fL MCH 27.9 (25.0-35.0) pg MCHC 31.1 (31.0-37.0) g/dL RDW 14.5 (11.5-15.5) % Plt Count 424 (150-450) k/uL MPV 9.1 Neutrophils % 67 % Lymphocytes % 23 % Monocytes % 5 % Eosinophils % 1 % Basophils % 2 % Neutrophils # 5.1 (1.3-7.7) k/uL Lymphocytes # 1.8 (1.0-4.8) k/uL Monocytes # 0.4 (0-1.0) k/uL Eosinophils # 0.1 (0-0.7) k/uL Basophils # 0.2 (0-0.2) k/uL Hypochromasia Slight PT (10.0-12.5) sec INR (<1.2) APTT (22.0-30.0) sec Sodium 123 L (137-145) mmol/L Potassium 5.4 H (3.5-5.1) mmol/L Chloride 88 L (98-107) mmol/L Carbon Dioxide 26 (22-30) mmol/L Anion Gap 9 mmol/L BUN 36 H (7-17) mg/dL Creatinine 0.58 (0.52-1.04) mg/dL Est GFR (CKD-EPI)AfAm >90 (>60 ml/min/1.73 sqM) Est GFR (CKD-EPI)NonAf >90 (>60 ml/min/1.73 sqM) Glucose 590 H* (74-99) mg/dL POC Glucose (mg/dL) 566 H (70-110) mg/dL POC Glu Audio Visual Design Engineer ID Dell Henderson Plasma Lactic Acid Travis (0.7-2.0) mmol/L Calcium 9.5 (8.4-10.2) mg/dL Magnesium 2.3 (1.6-2.3) mg/dL Total Bilirubin 0.4 (0.2-1.3) mg/dL AST 30 (14-36) U/L ALT 33 (4-34) U/L Alkaline Phosphatase 136 H (38-126) U/L Total Protein 7.1 (6.3-8.2) g/dL Albumin 3.7 (3.5-5.0) g/dL Urine Color Urine Appearance (Clear) Urine pH (5.0-8.0) Ur Specific [place] (1.001-1.035) Urine Protein (Negative) Urine Glucose (UA) (Negative) Urine Ketones (Negative) Urine Blood (Negative) Urine Nitrite (Negative) Urine Bilirubin (Negative) Urine Urobilinogen (<2.0) mg/dL Ur Leukocyte Esterase (Negative) Urine RBC (0-5) /hpf Urine WBC (0-5) /hpf Ur Squamous Epith Cells (0-4) /hpf 09/16/23 09/16/23 09/16/23 Range/Units 12:04 12:04 12:53 WBC (3.8-10.6) k/uL RBC (3.80-5.40) m/uL Hgb (11.4-16.0) gm/dL Hct (34.0-46.0) % MCV (80.0-100.0) fL MCH (25.0-35.0) pg MCHC (31.0-37.0) g/dL RDW (11.5-15.5) % Plt Count (150-450) k/uL MPV Neutrophils % % Lymphocytes % % Monocytes % % Eosinophils % % Basophils % % Neutrophils # (1.3-7.7) k/uL Lymphocytes # (1.0-4.8) k/uL Monocytes # (0-1.0) k/uL Eosinophils # (0-0.7) k/uL Basophils # (0-0.2) k/uL Hypochromasia PT 9.4 L (10.0-12.5) sec INR 0.8 (<1.2) APTT 23.7 (22.0-30.0) sec Sodium (137-145) mmol/L Potassium (3.5-5.1) mmol/L Chloride (98-107) mmol/L Carbon Dioxide (22-30) mmol/L Anion Gap mmol/L BUN (7-17) mg/dL Creatinine (0.52-1.04) mg/dL Est GFR (CKD-EPI)AfAm (>60 ml/min/1.73 sqM) Est GFR (CKD-EPI)NonAf (>60 ml/min/1.73 sqM) Glucose (74-99) mg/dL POC Glucose (mg/dL) (70-110) mg/dL POC Glu Audio Visual Design Engineer ID Plasma Lactic Acid Travsi 1.7 (0.7-2.0) mmol/L Calcium (8.4-10.2) mg/dL Magnesium (1.6-2.3) mg/dL Total Bilirubin (0.2-1.3) mg/dL AST (14-36) U/L ALT (4-34) U/L Alkaline Phosphatase (38-126) U/L Total Protein (6.3-8.2) g/dL Albumin (3.5-5.0) g/dL Urine Color Colorless Urine Appearance Clear (Clear) Urine pH 6.5 (5.0-8.0) Ur Specific [place] 1.030 (1.001-1.035) Urine Protein 2+ H (Negative) Urine Glucose (UA) 4+ H (Negative) Urine Ketones Trace H (Negative) Urine Blood Negative (Negative) Urine Nitrite Negative (Negative) Urine Bilirubin Negative (Negative) Urine Urobilinogen <2.0 (<2.0) mg/dL Ur Leukocyte Esterase Negative (Negative) Urine RBC 3 (0-5) /hpf Urine WBC 1 (0-5) /hpf Ur Squamous Epith Cells <1 (0-4) /hpf 09/16/23 Range/Units 13:22 WBC (3.8-10.6) k/uL RBC (3.80-5.40) m/uL Hgb (11.4-16.0) gm/dL Hct (34.0-46.0) % MCV (80.0-100.0) fL MCH (25.0-35.0) pg MCHC (31.0-37.0) g/dL RDW (11.5-15.5) % Plt Count (150-450) k/uL MPV Neutrophils % % Lymphocytes % % Monocytes % % Eosinophils % % Basophils % % Neutrophils # (1.3-7.7) k/uL Lymphocytes # (1.0-4.8) k/uL Monocytes # (0-1.0) k/uL Eosinophils # (0-0.7) k/uL Basophils # (0-0.2) k/uL Hypochromasia PT (10.0-12.5) sec INR (<1.2) APTT (22.0-30.0) sec Sodium (137-145) mmol/L Potassium (3.5-5.1) mmol/L Chloride (98-107) mmol/L Carbon Dioxide (22-30) mmol/L Anion Gap mmol/L BUN (7-17) mg/dL Creatinine (0.52-1.04) mg/dL Est GFR (CKD-EPI)AfAm (>60 ml/min/1.73 sqM) Est GFR (CKD-EPI)NonAf (>60 ml/min/1.73 sqM) Glucose (74-99) mg/dL POC Glucose (mg/dL) 414 H (70-110) mg/dL POC Glu Audio Visual Design Engineer Dell Colunga Plasma Lactic Acid [place] (0.7-2.0) mmol/L Calcium (8.4-10.2) mg/dL Magnesium (1.6-2.3) mg/dL Total Bilirubin (0.2-1.3) mg/dL AST (14-36) U/L ALT (4-34) U/L Alkaline Phosphatase (38-126) U/L Total Protein (6.3-8.2) g/dL Albumin (3.5-5.0) g/dL Urine Color Urine Appearance (Clear) Urine pH (5.0-8.0) Ur Specific [place] (1.001-1.035) Urine Protein (Negative) Urine Glucose (UA) (Negative) Urine Ketones (Negative) Urine Blood (Negative) Urine Nitrite (Negative) Urine Bilirubin (Negative) Urine Urobilinogen (<2.0) mg/dL Ur Leukocyte Esterase (Negative) Urine RBC (0-5) /hpf Urine WBC (0-5) /hpf Ur Squamous Epith Cells (0-4) /hpf Disposition Clinical Impression: Hyperglycemia, Dehydration, Intractable nausea and vomiting Disposition: ADMITTED IP TO THIS HOSP Condition: Stable Is patient prescribed a controlled substance at d/c from ED?: No Referrals: Dell Pike MD [Primary Care Provider] - 1-2 days Time of Disposition: 13:35
[2023-09-16] MEDS: ONDANSETRON 4 MG/2 ML VIAL IVP STA (12:09)
[2023-09-16] MEDS: HYDROmorphone 0.5 MG/0.5 ML SYRINGE IVP STA (12:12)
[2023-09-16] MEDS: PANTOPRAZOLE 40 MG/10 ML VIAL IVP STA (12:12)
[2023-09-16] MEDS: SODIUM CHLORIDE 0.9% 1,000 ML IV ONE (12:13)
[2023-09-16 12:31] LABS: ALT 33 U/L (4-34); AST 30 U/L (14-36); African American GFR (CKD) >90 (>60 ml/min/1.73 sqM); Albumin 3.7 g/dL (3.5-5.0); Alkaline Phosphatase 136 U/L (38-126); Anion Gap 9 mmol/L; Blood Urea Nitrogen 36 mg/dL (7-17); Calcium 9.5 mg/dL (8.4-10.2); Carbon Dioxide 26 mmol/L (22-30); Chloride 88 mmol/L (98-107); Magnesium 2.3 mg/dL (1.6-2.3); Non-African American GFR(CKD) >90 (>60 ml/min/1.73 sqM); Potassium 5.4 mmol/L (3.5-5.1); Sodium 123 mmol/L (137-145); Total Bilirubin 0.4 mg/dL (0.2-1.3); Total Protein 7.1 g/dL (6.3-8.2)
[2023-09-16 12:39] LABS: Glucose 590 mg/dL (74-99)
[2023-09-16 12:40] LABS: Basophils # (A) 0.2 k/uL (0-0.2); Basophils % (A) 2 %; Eosinophils # (A) 0.1 k/uL (0-0.7); Eosinophils % (A) 1 %; HCT 44.9 % (34.0-46.0); Hypochromasia Slight; Lymphocytes # (A) 1.8 k/uL (1.0-4.8); Lymphocytes % (A) 23 %; MCH 27.9 pg (25.0-35.0); MCHC 31.1 g/dL (31.0-37.0); MCV 89.8 fL (80.0-100.0); Mean Platelet Volume 9.1; Monocytes # (A) 0.4 k/uL (0-1.0); Monocytes % (A) 5 %; Neutrophils # (A) 5.1 k/uL (1.3-7.7); Neutrophils % (A) 67 %; Platelet Count 424 k/uL (150-450); RDW 14.5 % (11.5-15.5); WBC 7.6 k/uL (3.8-10.6)
[2023-09-16 12:55] LABS: INR 0.8 (<1.2); Partial Thromboplastin Time 23.7 sec (22.0-30.0); Prothrombin Time 9.4 sec (10.0-12.5)
[2023-09-16 13:08] LABS: Appearance,Urine Clear (Clear); Bilirubin,Urine Negative (Negative); Blood,Urine Negative (Negative); Color,Urine Colorless; Glucose,Urine (UA) 4+ (Negative); Ketones,Urine Trace (Negative); Leukocyte Esterase,Urine Negative (Negative); Nitrite,Urine Negative (Negative); PH, Urine 6.5 (5.0-8.0); Protein,Urine 2+ (Negative); RBC,Urine 3 /hpf (0-5); Squamous Epithelial Cell,Urine <1 /hpf (0-4); Urobilinogen,Urine <2.0 mg/dL (<2.0); WBC,Urine 1 /hpf (0-5)
[2023-09-16 13:23] LABS: Glucose,Whole Blood 414 mg/dL (70-110)
[2023-09-16] MEDS: INSULIN REGULAR 100 UNIT in SODIUM CHLORIDE 0.9% 100 ML IV SCH (13:35)
[2023-09-16] MEDS: SODIUM CHLORIDE 0.9% 1,000 ML IV SCH (13:35)
[2023-09-16 14:07] LABS: Glucose,Whole Blood 371 mg/dL (70-110)
[2023-09-16 15:14] LABS: Glucose,Whole Blood 287 mg/dL (70-110)
[2023-09-16 16:20] LABS: Glucose,Whole Blood 225 mg/dL (70-110)
[2023-09-16 16:37] LABS: African American GFR (CKD) >90 (>60 ml/min/1.73 sqM); Anion Gap 5 mmol/L; Blood Urea Nitrogen 30 mg/dL (7-17); Carbon Dioxide 25 mmol/L (22-30); Chloride 97 mmol/L (98-107); Glucose 273 mg/dL (74-99); Non-African American GFR(CKD) >90 (>60 ml/min/1.73 sqM); Phosphorus 3.3 mg/dL (2.5-4.5); Potassium 4.6 mmol/L (3.5-5.1); Sodium 127 mmol/L (137-145)
[2023-09-16 17:02] LABS: Glucose,Whole Blood 197 mg/dL (70-110)
[2023-09-16] MEDS: METOCLOPRAMIDE 10 MG TAB PO SCH (17:58)
[2023-09-16] MEDS: INSULIN ASPART (NovoLOG) 100 UNIT/ML VIAL SQ SCH (17:58)
[2023-09-16] MEDS: PANTOPRAZOLE 40 MG TABLET PO SCH (17:58)
[2023-09-16 18:01] LABS: Glucose,Whole Blood 226 mg/dL (70-110)
[2023-09-16] MEDS: HYDROmorphone 1 MG/ML 1 ML SYRINGE IVP PRN (18:08)
[2023-09-16] MEDS: HYDROcodone/APAP 7.5-325MG 1 EACH TAB PO PRN (18:52)
[2023-09-16 19:07] LABS: Glucose,Whole Blood 230 mg/dL (70-110)
[2023-09-16 20:01] LABS: Glucose,Whole Blood 176 mg/dL (70-110)
[2023-09-16] MEDS: IPRATROPIUM-ALBUTEROL 3 ML NEB INHALATION SCH (20:43)
[2023-09-16 20:46] LABS: African American GFR (CKD) >90 (>60 ml/min/1.73 sqM); Anion Gap 2 mmol/L; Blood Urea Nitrogen 30 mg/dL (7-17); Carbon Dioxide 29 mmol/L (22-30); Chloride 99 mmol/L (98-107); Glucose 168 mg/dL (74-99); Non-African American GFR(CKD) >90 (>60 ml/min/1.73 sqM); Phosphorus 3.6 mg/dL (2.5-4.5); Potassium 4.1 mmol/L (3.5-5.1); Sodium 130 mmol/L (137-145)
[2023-09-16 21:11] LABS: Glucose,Whole Blood 139 mg/dL (70-110)
[2023-09-16] MEDS: MIRTAZAPINE 15 MG TAB PO SCH (21:30)
[2023-09-16 21:59] LABS: Glucose,Whole Blood 126 mg/dL (70-110)
[2023-09-16 23:00] LABS: Glucose,Whole Blood 108 mg/dL (70-110)
[2023-09-16 23:58] LABS: Glucose,Whole Blood 85 mg/dL (70-110)
[2023-09-17 01:01] LABS: Glucose,Whole Blood 72 mg/dL (70-110)
[2023-09-17 06:12] LABS: Glucose,Whole Blood 238 mg/dL (70-110)
[2023-09-17] MEDS: INSULIN DETEMIR (LEVEMIR) 100 UNIT/ML SYR SQ SCH (07:16)
[2023-09-17] MEDS: FOLIC ACID 1 MG TAB PO SCH (09:19)
[2023-09-17] MEDS: DULoxetine HCL 30 MG CAPSULE.DR PO SCH (09:19)
[2023-09-17] MEDS: ONDANSETRON 4 MG TAB PO SCH (09:19)
[2023-09-17] MEDS: MAGNESIUM OXIDE 400 MG TAB PO SCH (09:19)
[2023-09-17] MEDS: ATORVASTATIN 20 MG TAB PO SCH (09:19)
[2023-09-17] MEDS: POTASSIUM CHLORIDE ER 20 MEQ TAB.ER PO SCH (09:19)
--- NOTE | 2023-09-17 09:33 | HP ---
HISTORY AND PHYSICAL 53-year-old white female came with sugars in her 600, severe weakness, fatigue, dehydration. She lost more weight. She is severely malnourished with a weight around 75 pounds she says, unable to keep food down at home. She is supposed to get a gastric pump placed in for gastroparesis in 2 months. She has been maintaining tube feedings. She went a whole week without getting sick and then she started getting sick out of the blue for no reason. She came to the hospital with severe hyperglycemia without DKA, sinus tachycardia on EKG 106, possibly may have to transfer her down the city for gastroparesis, severe malnutrition type surgery. She gastric pump in 2 months. She had recurrent abdominal pain, nausea, and vomiting, type 1 diabetes. HOME MEDICINES: 1. Xanax 0.25 b.i.d. 2. Lipitor 20 daily. 3. Cymbalta 30 daily. 4. Humalog KwikPen 2 units a.c. t.i.d. 5. DuoNeb updrafts b.i.d. 6. Mag oxide 400 daily. 7. Remeron 30 mg at night. 8. Folic acid 1 mg daily. 9. Norvasc 7.5 t.i.d. p.r.n. ALLERGIES: Negative. REVIEW OF SYSTEMS: A 14-point review of systems, otherwise, negative. PAST MEDICAL HISTORY: Type 1 diabetes mellitus, she 32 years. FAMILY HISTORY: Type 1 father. Mother's history unknown. They are adopted. PHYSICAL EXAMINATION: GENERAL: She is skinny, cachectic, looks dehydrated, poor skin turgor. HEENT: Dry mucous membranes. SKIN: No rashes. Skin warm, dry, intact, LUNGS: Decreased breath sounds x4. CARDIOVASCULAR: S1, S2. HEMATOLOGIC: Negative Homans. VITAL SIGNS: Reviewed. She has uncontrolled diabetes mellitus with hyperglycemia secondary to gastroparesis, nausea, vomiting. She is severely malnourished. She has been vomiting on and off for months and months and months. Gastric pump pending, possibly has to send her down to Dr. Grant in the GI unit down at [facility], who sees her. Discussed surgery down the road. EKG shows sinus tachycardia. She has COPD also, pulmonary hypertension. Sodium and potassium were reviewed. Sodium is 123. Says she has hyponatremia secondary to dehydration, hyperkalemia. As mentioned, sugar is elevated on admission normal. UA is negative essentially. ASSESSMENT: Hyperglycemia, dehydration, intractable nausea, vomiting, gastroparesis, severe dehydration. Will rehydrate the patient. Nausea medicines. Get dietitian for tube feeding, malnutrition. See if I can transfer down to the [facility] for Dr. Grant, given that I will talk to her tomorrow . Prognosis guarded. Please see further orders. MMODL / IJN: [id number] /
[2023-09-17 11:15] LABS: Basophils # (A) 0.1 k/uL (0-0.2); Basophils % (A) 1 %; Eosinophils # (A) 0.2 k/uL (0-0.7); Eosinophils % (A) 3 %; HCT 37.8 % (34.0-46.0); HGB 11.6 gm/dL (11.4-16.0); Hypochromasia Slight; Lymphocytes # (A) 2.1 k/uL (1.0-4.8); Lymphocytes % (A) 31 %; MCH 27.5 pg (25.0-35.0); MCHC 30.7 g/dL (31.0-37.0); MCV 89.3 fL (80.0-100.0); Mean Platelet Volume 8.7; Monocytes # (A) 0.3 k/uL (0-1.0); Monocytes % (A) 5 %; Neutrophils # (A) 3.9 k/uL (1.3-7.7); Neutrophils % (A) 58 %; Platelet Count 330 k/uL (150-450); RBC 4.23 m/uL (3.80-5.40); RDW 14.6 % (11.5-15.5); WBC 6.8 k/uL (3.8-10.6)
[2023-09-17 11:20] LABS: Glucose,Whole Blood 212 mg/dL (70-110)
[2023-09-17 11:27] LABS: ALT 29 U/L (4-34); AST 34 U/L (14-36); African American GFR (CKD) >90 (>60 ml/min/1.73 sqM); Albumin 2.7 g/dL (3.5-5.0); Alkaline Phosphatase 90 U/L (38-126); Anion Gap 4 mmol/L; Blood Urea Nitrogen 30 mg/dL (7-17); Calcium 8.1 mg/dL (8.4-10.2); Carbon Dioxide 24 mmol/L (22-30); Chloride 103 mmol/L (98-107); Glucose 240 mg/dL (74-99); Non-African American GFR(CKD) >90 (>60 ml/min/1.73 sqM); Potassium 4.5 mmol/L (3.5-5.1); Sodium 131 mmol/L (137-145); Total Bilirubin 0.1 mg/dL (0.2-1.3); Total Protein 5.5 g/dL (6.3-8.2)
[2023-09-17 12:53] VITALS: BMI 15.1
[2023-09-17 14:22] LABS: Glucose,Whole Blood 191 mg/dL (70-110)
[2023-09-17 16:35] LABS: Glucose,Whole Blood 223 mg/dL (70-110)
[2023-09-17 19:58] LABS: Glucose,Whole Blood 295 mg/dL (70-110)
[2023-09-17 23:23] LABS: Glucose,Whole Blood 404 mg/dL (70-110)
[2023-09-17] MEDS: INSULIN ASPART (NovoLOG) 100 UNIT/ML VIAL SQ ONE (23:27)
[2023-09-18 07:15] LABS: Glucose,Whole Blood 421 mg/dL (70-110)
[2023-09-18 10:35] LABS: ALT 31 U/L (4-34); AST 38 U/L (14-36); African American GFR (CKD) >90 (>60 ml/min/1.73 sqM); Albumin 2.7 g/dL (3.5-5.0); Alkaline Phosphatase 95 U/L (38-126); Anion Gap 7 mmol/L; Blood Urea Nitrogen 34 mg/dL (7-17); Carbon Dioxide 21 mmol/L (22-30); Chloride 100 mmol/L (98-107); Glucose 463 mg/dL (74-99); Non-African American GFR(CKD) >90 (>60 ml/min/1.73 sqM); Potassium 5.8 mmol/L (3.5-5.1); Sodium 128 mmol/L (137-145); Total Bilirubin 0.1 mg/dL (0.2-1.3); Total Protein 5.5 g/dL (6.3-8.2)
[2023-09-18 10:41] LABS: Basophils # (A) 0.1 k/uL (0-0.2); Basophils % (A) 1 %; Eosinophils # (A) 0.2 k/uL (0-0.7); Eosinophils % (A) 2 %; HCT 39.6 % (34.0-46.0); HGB 11.4 gm/dL (11.4-16.0); Hypochromasia Marked; Lymphocytes # (A) 1.4 k/uL (1.0-4.8); Lymphocytes % (A) 17 %; MCH 27.5 pg (25.0-35.0); MCHC 28.8 g/dL (31.0-37.0); Mean Platelet Volume 8.5; Monocytes # (A) 0.3 k/uL (0-1.0); Monocytes % (A) 4 %; Neutrophils # (A) 6.1 k/uL (1.3-7.7); Neutrophils % (A) 74 %; Platelet Count 292 k/uL (150-450); RBC 4.14 m/uL (3.80-5.40); RDW 14.2 % (11.5-15.5); WBC 8.2 k/uL (3.8-10.6)
[2023-09-18 10:43] LABS: MCV 95.6 fL (80.0-100.0)
[2023-09-18 11:51] LABS: Glucose,Whole Blood 332 mg/dL (70-110)
--- NOTE | 2023-09-18 13:51 | PN ---
PROGRESS NOTE DATE OF SERVICE: 09/17/2023 SUBJECTIVE: The patient is slowly improving, still very nauseated, unable to keep any food or liquids down. She is supposed to get surgery for gastroparesis pump placement in the next 2 months. She keeps having nausea and vomiting, recurrent admissions for gastroparesis. OBJECTIVE: VITAL SIGNS: Pulse is 109 to 117, temp 97.8, O2 saturation 95 on room air, blood pressure 120s to 150s over 70s to 80s. CARDIOVASCULAR: S1, S2. LUNGS: Transmitted upper sounds. GI: Soft. INTEGUMENT: Dry. Poor BMI. Dietitian consulted for malnutrition. Prognosis guarded. Continue with tube feedings for esophageal dysmobility, uncontrolled diabetes mellitus with non-DKA is more under control, with her sugars since she has been admitted. Her sodium remains low, potassium is high. Sugars are still 400s to 300s. PROGNOSIS: Guarded. Please see further orders. MMODL / IJN: [id number] /
[2023-09-18 14:13] LABS: Basophils # (A) 0.1 k/uL (0-0.2); Basophils % (A) 1 %; Eosinophils # (A) 0.2 k/uL (0-0.7); Eosinophils % (A) 2 %; HCT 38.1 % (34.0-46.0); HGB 12.2 gm/dL (11.4-16.0); Lymphocytes % (A) 25 %; MCH 27.9 pg (25.0-35.0); MCHC 31.9 g/dL (31.0-37.0); Mean Platelet Volume 9.8; Monocytes # (A) 0.5 k/uL (0-1.0); Monocytes % (A) 7 %; Neutrophils # (A) 4.9 k/uL (1.3-7.7); Neutrophils % (A) 63 %; RBC 4.36 m/uL (3.80-5.40); RDW 14.5 % (11.5-15.5); WBC 7.8 k/uL (3.8-10.6)
[2023-09-18 14:21] LABS: MCV 87.4 fL (80.0-100.0)
[2023-09-18 14:48] LABS: Platelet Count 141 k/uL (150-450); RBC Morphology Normal
[2023-09-18 15:17] LABS: ALT 31 U/L (4-34); African American GFR (CKD) >90 (>60 ml/min/1.73 sqM); Albumin 2.9 g/dL (3.5-5.0); Anion Gap 4 mmol/L; Blood Urea Nitrogen 33 mg/dL (7-17); Calcium 8.3 mg/dL (8.4-10.2); Carbon Dioxide 27 mmol/L (22-30); Chloride 101 mmol/L (98-107); Glucose 265 mg/dL (74-99); Non-African American GFR(CKD) >90 (>60 ml/min/1.73 sqM); Sodium 132 mmol/L (137-145); Total Bilirubin 0.2 mg/dL (0.2-1.3); Total Protein 5.8 g/dL (6.3-8.2)
[2023-09-18 15:19] LABS: AST 43 U/L (14-36); Alkaline Phosphatase 81 U/L (38-126); Potassium 5.8 mmol/L (3.5-5.1)
[2023-09-18 16:14] LABS: Glucose,Whole Blood 284 mg/dL (70-110)
[2023-09-18] MEDS: INSULIN ASPART (NovoLOG) 100 UNIT/ML VIAL SQ SCH (18:02)
[2023-09-18 20:08] LABS: Glucose,Whole Blood 211 mg/dL (70-110)
--- NOTE | 2023-09-18 20:26 | PN ---
PROGRESS NOTE SUBJECTIVE: This is a 53-year-old white female who still has nausea and some vomiting. She is on tube feedings at this time, not eating anything by mouth. Sugars have been high in 400s down to 200s. Increased her NovoLog from 2 units a.c. t.i.d. to 3 units t.i.d. Continue home medicines, COPD, breathing treatments, GERD treatment. OBJECTIVE: CARDIOVASCULAR: S1, S2. HEMATOLOGY: Negative. GENERAL: She is thin, cachectic. BMI is rather low. LUNGS: Scattered rhonchi and wheeze. INTEGUMENT: No rash or excoriation present. PEG tube in place. White count 7.8. She had hyponatremia now. Sodium is 132 from July 09, potassium is still high at 5.8, BUN is still high at 33, creatinine 0.53. Sugars in the 200s now with increase insulin, severe protein-calorie malnutrition. Continue current tube feeds, possible start oral diet in the next day or 2 if her nausea improves. Wait for GI consult. She is scheduled for gastroparesis pump surgery down at [facility] in about a month or 2. Discussed with her, her bad diet at home. PROGNOSIS: Guarded. MMODL / IJN: [id number] /
[2023-09-19 07:15] LABS: Glucose,Whole Blood 421 mg/dL (70-110)
[2023-09-19 12:12] LABS: Glucose,Whole Blood 317 mg/dL (70-110)
--- NOTE | 2023-09-19 13:36 | P.PN ---
Progress Note - Text Progress Note Date: 09/19/23 Hospital course: I am rounding for Dr. Dell Pike Chronic stable medical conditions include diabetes, insomnia, GERD, depression. Patient has severe protein calorie malnutrition. Has a PEG tube. Also does oral intake. Patient now presented with significant nausea and some vomiting. No fever no chills. No abdominal pain. Normally has loose stools. September 18: Patient requesting IV Dilaudid. That has been ordered. GI Dr. Shakira Bear was consulted is pending the same. Tolerating tube feeding. Nausea but no vomiting. Appears rather comfortable in bed. Active Medications Hydrocodone Bitart/Acetaminophen (Hydrocodone/Apap 7.5-325mg 1 Each Tab) 1 each PO TID PRN PRN Reason: Pain Last Admin: 09/18/23 21:11 Dose: 1 each Albuterol/Ipratropium (Ipratropium-Albuterol 3 Ml Neb) 3 ml INHALATION RT-BID [facility] Last Admin: 09/19/23 07:50 Dose: 3 ml Alprazolam (Alprazolam 0.25 Mg Tab) 0.25 mg PO BID PRN PRN Reason: Anxiety Atorvastatin Calcium (Atorvastatin 20 Mg Tab) 20 mg PO DAILY [facility] Last Admin: 09/19/23 08:45 Dose: 20 mg Duloxetine HCl (Duloxetine Hcl 30 Mg Capsule.) 30 mg PO DAILY [facility] Last Admin: 09/19/23 08:46 Dose: 30 mg Folic Acid (Folic Acid 1 Mg Tab) 1 mg PO DAILY [facility] Last Admin: 09/19/23 08:46 Dose: 1 mg Hydromorphone HCl (Hydromorphone 1 Mg/Ml 1 Ml Syringe) 1 mg IVP Q4HR PRN PRN Reason: Pain Last Admin: 09/19/23 12:30 Dose: 1 mg Sodium Chloride (Saline 0.9%) 1,000 mls @ 75 mls/hr IV .[id number] [facility] Last Admin: 09/19/23 04:45 Dose: 75 mls/hr Insulin Human Regular 100 unit (/ Sodium Chloride) 101 mls @ 3.436 mls/hr IV .Q24H [facility]; Protocol Last Admin: 09/18/23 12:02 Dose: Not Given Insulin Aspart (Insulin Aspart (Novolog) 100 Unit/Ml Vial) 3 unit SQ AC-TID [facility] Last Admin: 09/19/23 12:30 Dose: 3 unit Insulin Detemir (Insulin Detemir (Levemir) 100 Unit/Ml Syr) 3 unit SQ DAILY@0700 [facility] Last Admin: 09/19/23 06:54 Dose: 3 unit Magnesium Oxide (Magnesium Oxide 400 Mg Tab) 400 mg PO DAILY [facility] Last Admin: 09/19/23 08:46 Dose: 400 mg Metoclopramide HCl (Metoclopramide 10 Mg Tab) 10 mg PO ACHS [facility] Last Admin: 09/19/23 12:30 Dose: 10 mg Mirtazapine (Mirtazapine 15 Mg Tab) 30 mg PO HS [facility] Last Admin: 09/18/23 21:11 Dose: 30 mg Ondansetron HCl (Ondansetron 4 Mg Tab) 4 mg PO DAILY [facility] Last Admin: 09/19/23 08:46 Dose: 4 mg Pantoprazole Sodium (Pantoprazole 40 Mg Tablet) 40 mg PO AC-BID [facility] Last Admin: 09/19/23 06:54 Dose: 40 mg Potassium Chloride (Potassium Chloride Er 20 Meq Tab.Er) 20 meq PO DAILY [facility] Last Admin: 09/19/23 08:45 Dose: 20 meq Social history: Data smoking in 1987. Does medical marijuana. No alcohol. Lives with another man and his son. Physical examination: VITAL SIGNS: 98, 118, 16, 134 x 81, 93% room air GENERAL: BMI 15.1, severe loss of muscle mass and subcutaneous fat, comfortable. EYES: Pupils equal. Conjunctiva normal. HEENT: External appearance of nose and ears normal, oral cavity grossly normal. NECK: JVD not raised; masses not palpable. HEART: First and second heart sounds are normal; no edema. LUNGS: Respiratory rate normal; clear to auscultation. ABDOMEN: Soft, scaphoid nontender, liver spleen not palpable, no masses palpable. PEG tube PSYCH: Alert and oriented x3; mood and affect normal. MUSCULOSKELETAL:No Clubbing/cyanosis;muscles-grossly intact. Muscle muscle mass. Prominent bones. INVESTIGATIONS, reviewed in the clinical context: Abdominal CT: Distal esophageal circumferential wall thickening compatible with esophagitis. Assessment and plan: -Acute on chronic exacerbation of gastroparesis. scheduled Reglan. Tube feeding being tolerated. GI consulted Patient pending gastroparesis pump at [facility] outpatient -Severe protein calorie malnutrition Tube feeding. Also take some food by mouth -Diabetes mellitus type 2, chronically on insulin, uncontrolled with hyperlipidemia Follow Accu-Cheks. Increase Levemir to 16 units nightly -Chronic insomnia Remeron -GERD/esophagitis Protonix -Depression Cymbalta -COPD in a current smoker Keven Sabillon Discussed with patient the need to stop Dilaudid because of nausea. Also being contributed from gastroparesis. Plan to discontinue Dilaudid tonight. Patient has [place] at home. Await input from GI.
--- NOTE | 2023-09-19 14:13 | P.CONS ---
History of Present Illness - Reason for Consult Consult date: 09/19/23 Gastroparesis Requesting physician: Dell Pike - Chief Complaint Vomiting, weakness, hyperglycemia - History of Present Illness This is a 53-year-old female with uncontrolled insulin-dependent diabetes mellitus with a history of diabetic gastroparesis and frequent episodes of vomiting admitted multiple times and well-known to gastroenterology. Patient underwent J-tube placement in June of this year with Dr. Garzon. She states that she has tube feedings ongoing 24 hours a day, states that she eats a little bit but not much often will feel nauseated after eating. She is following with [facility] and scheduled to undergo gastric pump placement on October 31. States as she has not vomited in the last 2 days. States she has chronic abdominal discomfort. She is tolerating her tube feedings. She is tolerating small amounts of food. Denies any hematemesis. Blood sugar this morning was 421. States that her sugars still have not been well-regulated at home. She follows with Dr. Mota outpatient. She states that she has not gained any weight since being on her tube feedings. Review of Systems REVIEW OF SYSTEMS: CARDIOPULMONARY: No chest pain or shortness of breath. Gastrointestinal: Diffuse abdominal discomfort. Chronic nausea and vomiting. No vomiting for the last 2 days. No hematemesis, coffee-ground emesis. No rectal bleeding, or melena. GENITOURINARY: No dysuria or hematuria. MUSCULOSKELETAL: Reports normal range of motion. SKIN: No rashes. No jaundice. ENDOCRINE: No chills, fevers. No excessive weight gain or loss. No polydipsia or polyuria. PSYCHIATRIC: Unremarkable. NEUROLOGY: No change in mental status. Denies dizziness, headache. ENT: Vision unremarkable. CONSTITUTIONAL: No recent weight loss. No fever, chills, night sweats. Past Medical History Past Medical History: Diabetes Mellitus, Hypertension, Musculoskeletal Disorder Additional Past Medical History / Comment(s): FREQ NAUSEA, PAINFUL RT SHOULDER "FROZEN SHOULDER", NEUROPATHY PORFIRIO LEGS and hands, Blood pressures can run high History of Any Multi-Drug Resistant Organisms: MRSA Year Discovered:: 05/19/23 MDRO Source:: Urine Past Surgical History: Orthopedic Surgery, Tubal Ligation Additional Past Surgical History / Comment(s): rt shoulder Past Anesthesia/Blood Transfusion Reactions: No Reported Reaction Additional Past Anesthesia/Blood Transfusion Reaction / Comm: UNK FAMILY HX Past Psychological History: Anxiety Smoking Status: Current every day smoker Past Alcohol Use History: None Reported Additional Past Alcohol Use History / Comment(s): STARTED SMOKING 1987 Past Drug Use History: Marijuana Additional Drug Use History / Comment(s): HAS MEDICAL MARIJUANA CARD-USES DAILY AND FREQUENTLY no longer using frequently only occasional - Past Family History Father History Unknown: Yes Additional Family Medical History / Comment(s): unknown-adopted Mother History Unknown: Yes Additional Family Medical History / Comment(s): unknown- adopted Medications and Allergies Home Medications Medication Instructions Recorded Confirmed Type ALPRAZolam [Xanax] 0.25 mg PO BID PRN 05/12/23 09/16/23 History Atorvastatin [Lipitor] 20 mg PO DAILY 05/12/23 09/16/23 History DULoxetine HCL [Cymbalta] 30 mg PO DAILY 05/12/23 09/16/23 History Insulin Lispro [humaLOG Kwikpen] 2 unit SQ AC-TID 05/12/23 09/16/23 History Ipratropium-Albuterol Nebulize 3 ml INHALATION RT-BID 05/12/23 09/16/23 History [Duoneb 0.5 mg-3 mg/3 ml Soln] Magnesium Oxide [Mag-Ox] 400 mg PO DAILY 05/12/23 09/16/23 History Mirtazapine [Remeron] 30 mg PO HS 05/12/23 09/16/23 History Potassium Chloride ER [K-Dur 20] 20 meq PO DAILY 05/12/23 09/16/23 History Metoclopramide [Reglan] 10 mg PO ACHS 30 Days #120 tab 05/15/23 09/16/23 Rx Pantoprazole [Protonix] 40 mg PO AC-BID 30 Days #60 tab 05/21/23 09/16/23 Rx Folic Acid 1 mg PO DAILY 06/15/23 09/16/23 History Ondansetron [Zofran] 4 mg PO DAILY 30 Days #30 tab 06/26/23 09/16/23 Rx HYDROcodone/APAP 7.5-325MG [[place] 1 tab PO TID PRN 08/25/23 09/16/23 History 7.5-325] Insulin Glargine [Lantus Vial] 3 unit SQ DAILY 08/25/23 09/16/23 History Insulin Lispro [humaLOG Kwikpen] See Protocol SQ AC-TID 09/03/23 09/16/23 History Losartan-Hctz 50-12.5 mg [Hyzaar 1 each PO DAILY 90 Days #90 tab 09/05/23 09/16/23 Rx 50-12.5] Allergies Allergy/AdvReac Type Severity Reaction Status Date / Time fentanyl Allergy Unknown Verified 09/16/23 14:16 Physical Exam Vitals: Vital Signs Temp Pulse Pulse Resp BP Pulse Ox 09/19/23 08:10 98 F 118 H 16 134/81 93 L 09/19/23 08:05 123 H 09/19/23 07:53 121 H 09/19/23 04:00 98.1 F 112 H 19 134/93 93 L 09/19/23 02:00 106 H 17 09/19/23 00:00 98.0 F 106 H 18 126/79 96 09/18/23 21:36 104 H 09/18/23 21:24 104 H 09/18/23 20:00 108 H 17 09/18/23 19:45 98.1 F 111 H 18 98/66 95 09/18/23 17:04 105 H 20 09/18/23 16:00 97.9 F 105 H 18 116/75 96 09/18/23 13:15 107 H 16 09/18/23 12:00 107 H 16 99/71 96 Intake and Output 09/18/23 09/19/23 09/19/23 22:59 06:59 14:59 Other: Voiding Method Bedside Commode Bedside Commode # Voids 1 # Bowel Movements 1 General appearance: The patient is alert, oriented, appears in no acute distress. HET: Head is normocephalic and atraumatic. Conjunctiva pink. Sclera anicteric. Neck: Supple without lymphadenopathy. Trachea midline. Heart: Regular. Lungs: Equal expansion, normal respiratory effort. Abdomen: Soft, thin, mild diffuse tenderness, J-tube in place, nondistended. Skin: No rashes. No jaundice. Extremities: Normal skin color and turgor. No pedal edema. Neurological: No focal deficits. Alert and oriented x3. Results CBC & Chem 7: 09/18/23 13:21 09/18/23 14:46 Labs: Abnormal Lab Results - Last 24 Hours (Table) 09/18/23 09/18/23 09/18/23 Range/Units 09:06 09:06 11:50 MCHC 28.8 L (31.0-37.0) g/dL Plt Count (150-450) k/uL Sodium 128 L (137-145) mmol/L Potassium 5.8 H (3.5-5.1) mmol/L Carbon Dioxide 21 L (22-30) mmol/L BUN 34 H (7-17) mg/dL Glucose 463 H (74-99) mg/dL POC Glucose (mg/dL) 332 H (70-110) mg/dL Calcium 8.0 L (8.4-10.2) mg/dL Total Bilirubin 0.1 L (0.2-1.3) mg/dL AST 38 H (14-36) U/L Total Protein 5.5 L (6.3-8.2) g/dL Albumin 2.7 L (3.5-5.0) g/dL 09/18/23 09/18/23 09/18/23 Range/Units 13:21 14:46 16:11 MCHC (31.0-37.0) g/dL Plt Count 141 L D (150-450) k/uL Sodium 132 L (137-145) mmol/L Potassium 5.8 H (3.5-5.1) mmol/L Carbon Dioxide (22-30) mmol/L BUN 33 H (7-17) mg/dL Glucose 265 H (74-99) mg/dL POC Glucose (mg/dL) 284 H (70-110) mg/dL Calcium 8.3 L (8.4-10.2) mg/dL Total Bilirubin (0.2-1.3) mg/dL AST 43 H (14-36) U/L Total Protein 5.8 L (6.3-8.2) g/dL Albumin 2.9 L (3.5-5.0) g/dL 09/18/23 09/19/23 Range/Units 20:07 07:13 MCHC (31.0-37.0) g/dL Plt Count (150-450) k/uL Sodium (137-145) mmol/L Potassium (3.5-5.1) mmol/L Carbon Dioxide (22-30) mmol/L BUN (7-17) mg/dL Glucose (74-99) mg/dL POC Glucose (mg/dL) 211 H 421 H (70-110) mg/dL Calcium (8.4-10.2) mg/dL Total Bilirubin (0.2-1.3) mg/dL AST (14-36) U/L Total Protein (6.3-8.2) g/dL Albumin (3.5-5.0) g/dL Assessment and Plan (1) Diabetic gastroparesis Narrative/Plan: 53-year-old female with long history of diabetes mellitus, insulin-dependent with frequent hospitalizations for uncontrolled diabetes mellitus, nausea and vomiting and malnutrition. Patient had recent G-tube placed in June of this year, states she has been doing well with tube feedings and they are ongoing 24 hours a day. States that she was having some elevated sugar she was having nausea and vomiting and came in for intractable nausea and vomiting. She has not had any vomiting for last 2 days duration. She is tolerating tube feedings. Likely all secondary to uncontrolled diabetes mellitus with blood sugars in the 2-400 range. Patient scheduled for gastric pump with [facility] on October 31. Continue with symptomatic and supportive treatment. Current Visit: No Status: Acute Code(s): E11.43 - TYPE 2 DIABETES W DIABETIC AUTONOMIC (POLY)NEUROPATHY; K31.84 - GASTROPARESIS SNOMED Code(s): 720239987 (2) Insulin dependent diabetes mellitus Current Visit: No Status: Acute Code(s): YPJ3376 - SNOMED Code(s): 97655 009 (3) Uncontrolled diabetes mellitus Current Visit: No Status: Acute Code(s): WCY3121 - SNOMED Code(s): 70975182 Plan: 1. Continue symptomatic supportive care 2. Continue with antiemetics as needed 3. Protonix 40 mg daily 5. Diet as tolerated 6. Continue tube feedings per dietitian recommendations 7. Strict glycemic control 8. Follow-up with [facility] as scheduled for gastric pump 9. No plans on any endoscopic evaluation Thank you for this consultation, we will continue to follow. Dr. Shakira Bear I agree with the dictator's note, documented as a scribe by Leigh Ordonez.
[2023-09-19 15:56] LABS: ALT 25 U/L (4-34); AST 27 U/L (14-36); African American GFR (CKD) >90 (>60 ml/min/1.73 sqM); Albumin 2.6 g/dL (3.5-5.0); Alkaline Phosphatase 86 U/L (38-126); Anion Gap 6 mmol/L; Blood Urea Nitrogen 25 mg/dL (7-17); Carbon Dioxide 25 mmol/L (22-30); Chloride 101 mmol/L (98-107); Glucose 202 mg/dL (74-99); Non-African American GFR(CKD) >90 (>60 ml/min/1.73 sqM); Potassium 5.8 mmol/L (3.5-5.1); Sodium 132 mmol/L (137-145); Total Bilirubin <0.1 mg/dL (0.2-1.3); Total Protein 5.3 g/dL (6.3-8.2)
[2023-09-19 16:03] LABS: Basophils # (A) 0.1 k/uL (0-0.2); Basophils % (A) 1 %; Eosinophils # (A) 0.2 k/uL (0-0.7); Eosinophils % (A) 3 %; HCT 33.3 % (34.0-46.0); HGB 10.2 gm/dL (11.4-16.0); Hypochromasia Moderate; Lymphocytes # (A) 1.9 k/uL (1.0-4.8); Lymphocytes % (A) 25 %; MCHC 30.6 g/dL (31.0-37.0); MCV 91.6 fL (80.0-100.0); Mean Platelet Volume 9.3; Monocytes # (A) 0.4 k/uL (0-1.0); Monocytes % (A) 5 %; Neutrophils # (A) 4.8 k/uL (1.3-7.7); Neutrophils % (A) 65 %; Platelet Count 272 k/uL (150-450); RBC 3.64 m/uL (3.80-5.40); RDW 14.5 % (11.5-15.5); WBC 7.4 k/uL (3.8-10.6)
[2023-09-19 17:14] LABS: Glucose,Whole Blood 259 mg/dL (70-110)
[2023-09-19] MEDS: SODIUM POLYSTYRENE SULFONATE 15 GM/60 ML BOTTLE PO STA (17:39)
[2023-09-19 20:01] LABS: Glucose,Whole Blood 287 mg/dL (70-110)
[2023-09-19] MEDS ORDERED: INSULIN DETEMIR (LEVEMIR) 100 UNIT/ML SYR SQ SCH (21:00)
[2023-09-19] MEDS: INSULIN DETEMIR (LEVEMIR) 100 UNIT/ML SYR SQ SCH (21:05)
[2023-09-20 07:26] LABS: Glucose,Whole Blood 172 mg/dL (70-110)
--- NOTE | 2023-09-20 07:51 | P.PN ---
Subjective Progress Note Date: 09/20/23 Principal diagnosis: Gastroparesis This is a 53-year-old female with uncontrolled insulin-dependent diabetes mellitus with a history of diabetic gastroparesis and frequent episodes of vomiting admitted multiple times and well-known to gastroenterology. Patient underwent J-tube placement in June of this year with Dr. Garzon. She states that she has tube feedings ongoing 24 hours a day, states that she eats a little bit but not much often will feel nauseated after eating. She is following with [facility] and scheduled to undergo gastric pump placement on October 31. States as she has not vomited in the last 2 days. States she has chronic abdominal discomfort. She is tolerating her tube feedings. She is tolerating small amounts of food. Denies any hematemesis. Blood sugar this morning was 421. States that her sugars still have not been well-regulated at home. She follows with Dr. Mota outpatient. She states that she has not gained any weight since being on her tube feedings. 09/20/2023 Patient seen and examined today as a follow-up. She states no further nausea or vomiting. She is tolerating her PEG tube feedings and was able to tolerate some dinner last night. Blood sugars still have been elevated. Objective - Vital Signs Vital signs: Vital Signs Temp 98.2 F 09/20/23 04:00 Pulse 109 H 09/20/23 04:00 Resp 20 09/20/23 04:00 BP 127/81 09/20/23 04:00 Pulse Ox 97 09/20/23 04:00 FiO2 Intake & Output 09/19/23 09/19/23 09/20/23 06:59 18:59 06:59 Intake Total 240 12 Balance 240 12 Weight 34.019 kg 36.3 kg Intake: Oral 236 Tube Feeding 4 12 Other: Voiding Method Bedside Commode Bedside Commode Bedside Commode # Voids 4 # Bowel Movements 2 - Exam General appearance: The patient is alert, oriented, appears in no acute distress. HET: Head is normocephalic and atraumatic. Conjunctiva pink. Sclera anicteric. Neck: Supple without lymphadenopathy. Trachea midline. Heart: Regular. Lungs: Equal expansion, normal respiratory effort. Abdomen: Soft, thin, mild diffuse tenderness, J-tube in place, nondistended. Skin: No rashes. No jaundice. Extremities: Normal skin color and turgor. No pedal edema. Neurological: No focal deficits. Alert and oriented x3. - Labs CBC & Chem 7: 09/19/23 14:44 09/19/23 14:44 Labs: Abnormal Lab Results - Last 24 Hours (Table) 09/19/23 09/19/23 09/19/23 Range/Units 07:13 12:10 14:44 RBC 3.64 L (3.80-5.40) m/uL Hgb 10.2 L (11.4-16.0) gm/dL Hct 33.3 L (34.0-46.0) % MCHC 30.6 L (31.0-37.0) g/dL Sodium (137-145) mmol/L Potassium (3.5-5.1) mmol/L BUN (7-17) mg/dL Glucose (74-99) mg/dL POC Glucose (mg/dL) 421 H 317 H (70-110) mg/dL Calcium (8.4-10.2) mg/dL Total Bilirubin (0.2-1.3) mg/dL Total Protein (6.3-8.2) g/dL Albumin (3.5-5.0) g/dL 09/19/23 09/19/23 09/19/23 Range/Units 14:44 17:13 20:00 RBC (3.80-5.40) m/uL Hgb (11.4-16.0) gm/dL Hct (34.0-46.0) % MCHC (31.0-37.0) g/dL Sodium 132 L (137-145) mmol/L Potassium 5.8 H (3.5-5.1) mmol/L BUN 25 H (7-17) mg/dL Glucose 202 H (74-99) mg/dL POC Glucose (mg/dL) 259 H 287 H (70-110) mg/dL Calcium 8.0 L (8.4-10.2) mg/dL Total Bilirubin <0.1 L (0.2-1.3) mg/dL Total Protein 5.3 L (6.3-8.2) g/dL Albumin 2.6 L (3.5-5.0) g/dL Assessment and Plan (1) Diabetic gastroparesis Narrative/Plan: 53-year-old female with long history of diabetes mellitus, insulin-dependent with frequent hospitalizations for uncontrolled diabetes mellitus, nausea and vomiting and malnutrition. Patient had recent G-tube placed in June of this year, states she has been doing well with tube feedings and they are ongoing 24 hours a day. States that she was having some elevated sugar she was having nausea and vomiting and came in for intractable nausea and vomiting. She has not had any vomiting for last 2 days duration. She is tolerating tube feedings. Likely all secondary to uncontrolled diabetes mellitus with blood sugars in the 2-400 range. Patient scheduled for gastric pump with [facility] on October 31. Continue with symptomatic and supportive treatment. Current Visit: No Status: Acute Code(s): E11.43 - TYPE 2 DIABETES W DIABETIC AUTONOMIC (POLY)NEUROPATHY; K31.84 - GASTROPARESIS SNOMED Code(s): 524506081 (2) Insulin dependent diabetes mellitus Current Visit: No Status: Acute Code(s): YFE3100 - SNOMED Code(s): 08275415 (3) Uncontrolled diabetes mellitus Current Visit: No Status: Acute Code(s): OIM3531 - SNOMED Code(s): 39055720 Plan: 1. Continue symptomatic supportive care 2. Continue with antiemetics as needed 3. Protonix 40 mg daily 5. Diet as tolerated 6. Continue tube feedings per dietitian recommendations 7. Strict glycemic control 8. Follow-up with [facility] as scheduled for gastric pump 9. No plans on any endoscopic evaluation Thank you for this consultation, we will sign off at this time. Dr. Shakira Bear I agree with the dictator's note, documented as a scribe by Leigh Ordonez.
[2023-09-20 10:03] VITALS: RESP 17
[2023-09-20 11:45] LABS: Glucose,Whole Blood 165 mg/dL (70-110)
[2023-09-20 12:13] VITALS: BP 167/97; PULSE 112; TEMP 98.3
[2023-09-20] MEDS: LOSARTAN-HCTZ 50-12.5 MG 1 EACH TAB PO SCH (13:04)
[2023-09-20] MEDS: ALPRAZolam 0.25 MG TAB PO PRN (13:05)
[2023-09-20 13:22] LABS: African American GFR (CKD) >90 (>60 ml/min/1.73 sqM); Anion Gap 3 mmol/L; Blood Urea Nitrogen 19 mg/dL (7-17); Calcium 8.3 mg/dL (8.4-10.2); Carbon Dioxide 29 mmol/L (22-30); Chloride 100 mmol/L (98-107); Glucose 168 mg/dL (74-99); Non-African American GFR(CKD) >90 (>60 ml/min/1.73 sqM); Potassium 4.5 mmol/L (3.5-5.1); Sodium 132 mmol/L (137-145)
--- NOTE | 2023-09-20 16:04 | P.DS ---
Providers Date of admission: 09/16/23 13:07 Expected date of discharge: 09/20/23 Attending physician: Dell Pike Consults: 09/18/23 12:59 Consult Physician Routine Consulting Provider: Mary Bear Consult Reason/Comments: gastroparesis Do you want consulting provider notified?: Yes [facility] Course: Hospital course: I am rounding for Dr. Dell Pike Chronic stable medical conditions include diabetes, insomnia, GERD, depression. Patient has severe protein calorie malnutrition. Has a PEG tube. Also does oral intake. Patient now presented with significant nausea and some vomiting. No fever no chills. No abdominal pain. Normally has loose stools. September 18: Patient requesting IV Dilaudid. That has been ordered. GI Dr. Shakira Bear was consulted is pending the same. Tolerating tube feeding. Nausea but no vomiting. Appears rather comfortable in bed. September 19: Tolerating tube feeding. No further vomiting. Discussed with patient. Seen by GI Dr. Shakira Bear. No further change in plan or intervention inpatient. Await pump for gastroparesis outpatient. Patient then keen to go home. Social history: Data smoking in 1987. Does medical marijuana. No alcohol. Lives with another man and his son. Physical examination: VITAL SIGNS: 98.3, 112, 17, 142 x 82, 98% room air GENERAL: BMI 15.1, severe loss of muscle mass and subcutaneous fat, comfortable. EYES: Pupils equal. Conjunctiva normal. HEENT: External appearance of nose and ears normal, oral cavity grossly normal. NECK: JVD not raised; masses not palpable. HEART: First and second heart sounds are normal; no edema. LUNGS: Respiratory rate normal; clear to auscultation. ABDOMEN: Soft, scaphoid nontender, liver spleen not palpable, no masses palpable. PEG tube PSYCH: Alert and oriented x3; mood and affect normal. MUSCULOSKELETAL:No Clubbing/cyanosis;muscles-grossly intact. Muscle muscle mass. Prominent bones. INVESTIGATIONS, reviewed in the clinical context: September 19: Potassium 4.[address]: Distal esophageal circumferential wall thickening compatible with esophagitis. Assessment and plan: -Acute on chronic exacerbation of gastroparesis. scheduled Reglan. Tube feeding being tolerated. By Dr. Shakira Bear from GI pending gastroparesis pump at [facility] outpatient -Severe protein calorie malnutrition Tube feeding. Also take some food by mouth -Diabetes mellitus type 2, chronically on insulin, uncontrolled with hyperlipidemia Follow Accu-Cheks. Increase Levemir to 10 units nightly -Chronic insomnia Remeron -GERD/esophagitis Protonix -Depression Cymbalta -COPD in a current smoker [facility] Disposition: Home. Plan - Discharge Summary Discharge Rx Participant: No New Discharge Prescriptions: Continue Mirtazapine [Remeron] 30 mg PO HS Metoclopramide [Reglan] 10 mg PO ACHS 30 Days #120 tab Ondansetron [Zofran] 4 mg PO DAILY 30 Days #30 tab HYDROcodone/APAP 7.5-325MG [[place] 7.5-325] 1 tab PO TID PRN PRN Reason: Pain Insulin Lispro [humaLOG Kwikpen] See Protocol SQ AC-TID Losartan-Hctz 50-12.5 mg [Hyzaar 50-12.5] 1 each PO DAILY 90 Days #90 tab Ipratropium-Albuterol Nebulize [Duoneb 0.5 mg-3 mg/3 ml Soln] 3 ml INHALATION RT-BID DULoxetine HCL [Cymbalta] 30 mg PO DAILY ALPRAZolam [Xanax] 0.25 mg PO BID PRN PRN Reason: Anxiety Magnesium Oxide [Mag-Ox] 400 mg PO DAILY Insulin Lispro [humaLOG Kwikpen] 2 unit SQ AC-TID Atorvastatin [Lipitor] 20 mg PO DAILY Pantoprazole [Protonix] 40 mg PO AC-BID 30 Days #60 tab Folic Acid 1 mg PO DAILY Changed Insulin Glargine [Lantus Vial] 10 unit SQ DAILY #0 Discontinued Potassium Chloride ER [K-Dur 20] 20 meq PO DAILY Discharge Medication List ALPRAZolam [Xanax] 0.25 mg PO BID PRN 05/12/23 [History] Atorvastatin [Lipitor] 20 mg PO DAILY 05/12/23 [History] DULoxetine HCL [Cymbalta] 30 mg PO DAILY 05/12/23 [History] Insulin Lispro [humaLOG Kwikpen] 2 unit SQ AC-TID 05/12/23 [History] Ipratropium-Albuterol Nebulize [Duoneb 0.5 mg-3 mg/3 ml Soln] 3 ml INHALATION RT-BID 05/12/23 [History] Magnesium Oxide [Mag-Ox] 400 mg PO DAILY 05/12/23 [History] Mirtazapine [Remeron] 30 mg PO HS 05/12/23 [History] Metoclopramide [Reglan] 10 mg PO ACHS 30 Days #120 tab 05/15/23 [Rx] Pantoprazole [Protonix] 40 mg PO AC-BID 30 Days #60 tab 05/21/23 [Rx] Folic Acid 1 mg PO DAILY 06/15/23 [History] Ondansetron [Zofran] 4 mg PO DAILY 30 Days #30 tab 06/26/23 [Rx] HYDROcodone/APAP 7.5-325MG [[place] 7.5-325] 1 tab PO TID PRN 08/25/23 [History] Insulin Lispro [humaLOG Kwikpen] See Protocol SQ AC-TID 09/03/23 [History] Losartan-Hctz 50-12.5 mg [Hyzaar 50-12.5] 1 each PO DAILY 90 Days #90 tab 09/05/23 [Rx] Insulin Glargine [Lantus Vial] 10 unit SQ DAILY #0 09/20/23 [Rx] Follow up Appointment(s)/Referral(s): Dell Pike MD [Primary Care Provider] - 1-2 days (Call and make dolly) [facility], [NON-STAFF] - (They will call you!) Patient Instructions/Handouts: Dehydration (DC), Diabetic Hyperglycemia (DC) Discharge Disposition: HOME WITH HOME HEALTH SERVICES
== END 2023-09-20 13:45 | disposition home health service (06) | DRG 73 ==
LOC: EC 10:35 → 3SCARD 13:07
PROVIDERS: ADMIT Family Medicine; ATTEND Family Medicine
PROC: 3E0G76Z Introduction of Nutritional Substance into Upper GI, Via Natural or Artificial Opening (ICD-10-PCS; principal; 2023-09-18)
DX: E10.43 Type 1 diabetes mellitus with diabetic autonomic (poly)neuropathy (principal); E43 Unspecified severe protein-calorie malnutrition; Z68.1 Body mass index [BMI] 19.9 or less, adult; E87.1 Hypo-osmolality and hyponatremia; K31.84 Gastroparesis; E10.65 Type 1 diabetes mellitus with hyperglycemia; K21.00 Gastro-esophageal reflux disease with esophagitis, without bleeding; E78.5 Hyperlipidemia, unspecified; F51.04 Psychophysiologic insomnia; F32.A Depression, unspecified; J44.9 Chronic obstructive pulmonary disease, unspecified; I10 Essential (primary) hypertension; F41.9 Anxiety disorder, unspecified; F17.200 Nicotine dependence, unspecified, uncomplicated; E86.0 Dehydration; E87.5 Hyperkalemia; M75.01 Adhesive capsulitis of right shoulder; Z79.4 Long term (current) use of insulin; Z88.5 Allergy status to narcotic agent; Z93.1 Gastrostomy status; Z79.899 Other long term (current) drug therapy; Z71.3 Dietary counseling and surveillance
CPT/HCPCS: 36415; 80048; 80051; 80053; 81001; 82565; 82947; 83605; 83735; 84100; 84520; 85025; 85610; 85730; 93005; 94640; 96361; 96374; 96375; 99285

== ENCOUNTER 2023-09-26 18:14 | Inpatient (IN) | payer MEDICARE, OTHER ==
[2023-09-26] MEDS: SODIUM CHLORIDE 0.9% 1,000 ML IV STA (19:29)
[2023-09-26 19:56] LABS: Basophils # (A) 0.1 k/uL (0-0.2); Basophils % (A) 2 %; Eosinophils # (A) 0.1 k/uL (0-0.7); Eosinophils % (A) 2 %; HCT 36.9 % (34.0-46.0); HGB 11.9 gm/dL (11.4-16.0); Lymphocytes # (A) 1.7 k/uL (1.0-4.8); Lymphocytes % (A) 23 %; MCH 27.9 pg (25.0-35.0); MCHC 32.2 g/dL (31.0-37.0); Mean Platelet Volume 8.1; Monocytes # (A) 0.5 k/uL (0-1.0); Monocytes % (A) 6 %; Neutrophils % (A) 66 %; Platelet Count 416 k/uL (150-450); RBC 4.27 m/uL (3.80-5.40); RDW 14.7 % (11.5-15.5); WBC 7.5 k/uL (3.8-10.6)
[2023-09-26] MEDS: METOCLOPRAMIDE 5 MG/ML 2 ML VIAL IVP STA (20:00)
[2023-09-26] MEDS: diphenhydrAMINE 50 MG/ML 1 ML VIAL IVP STA (20:00)
[2023-09-26] MEDS: HYDROmorphone 1 MG/ML 1 ML SYRINGE IVP STA (20:01)
[2023-09-26 20:07] LABS: Appearance,Urine Clear (Clear); Bilirubin,Urine Negative (Negative); Blood,Urine Trace (Negative); Color,Urine Colorless; Glucose,Urine (UA) 4+ (Negative); Hyaline Casts,Urine 1 /lpf (0-2); Ketones,Urine 1+ (Negative); Leukocyte Esterase,Urine Negative (Negative); Nitrite,Urine Negative (Negative); Protein,Urine 3+ (Negative); RBC,Urine 4 /hpf (0-5); Specific Gravity,Urine 1.031 (1.001-1.035); Squamous Epithelial Cell,Urine <1 /hpf (0-4); Urobilinogen,Urine <2.0 mg/dL (<2.0); WBC,Urine <1 /hpf (0-5)
[2023-09-26 20:08] LABS: MCV 86.4 fL (80.0-100.0)
[2023-09-26 20:38] LABS: ALT 30 U/L (4-34); AST 25 U/L (14-36); African American GFR (CKD) >90 (>60 ml/min/1.73 sqM); Albumin 3.3 g/dL (3.5-5.0); Alkaline Phosphatase 131 U/L (38-126); Anion Gap 5 mmol/L; Blood Urea Nitrogen 32 mg/dL (7-17); Calcium 9.1 mg/dL (8.4-10.2); Carbon Dioxide 31 mmol/L (22-30); Chloride 89 mmol/L (98-107); Lipase 148 U/L (23-300); Non-African American GFR(CKD) >90 (>60 ml/min/1.73 sqM); Potassium 4.4 mmol/L (3.5-5.1); Sodium 125 mmol/L (137-145); Total Bilirubin 0.4 mg/dL (0.2-1.3); Total Protein 6.4 g/dL (6.3-8.2)
[2023-09-26 20:52] LABS: Glucose 524 mg/dL (74-99)
[2023-09-26] MEDS ORDERED: DEXTROSE 50% SYRINGE 50 ML IVP PRN (20:58)
[2023-09-26] MEDS ORDERED: NALOXONE 0.4 MG/ML 1 ML VIAL IV PRN (21:23)
--- NOTE | 2023-09-26 21:23 | ED ---
General Adult HPI - General Chief complaint: Nausea/Vomiting/Diarrhea Stated complaint: N/V/D Time Seen by Provider: 09/26/23 18:16 Source: patient, EMS Mode of arrival: EMS - History of Present Illness Initial comments: 53-year-old female with type 1 diabetes, diabetic gastroparesis, chronic abdominal pain who presents emergency department with nausea and vomiting. States that her symptoms started 2 days ago. She has a longstanding history of this with multiple hospitalizations. She took home Reglan and Zofran around 11 AM but continued to have nausea. She called EMS who gave her 4 mg of Zofran. She denies any fevers. States the only thing she has been able to hold down today was a popsicle. Patient is insulin-dependent. Has not checked her glucose yet today. States that she is going to [facility] for gastric stimulator and may. No other alleviating, precipitating or modifying factors - Related Data Home Medications Medication Instructions Recorded Confirmed ALPRAZolam [Xanax] 0.25 mg PO BID PRN 05/12/23 09/26/23 Atorvastatin [Lipitor] 20 mg PO DAILY 05/12/23 09/26/23 DULoxetine HCL [Cymbalta] 30 mg PO DAILY 05/12/23 09/26/23 Insulin Lispro [humaLOG Kwikpen] 2 unit SQ AC-TID 05/12/23 09/26/23 Ipratropium-Albuterol Nebulize 3 ml INHALATION RT-BID 05/12/23 09/26/23 [Duoneb 0.5 mg-3 mg/3 ml Soln] Magnesium Oxide [Mag-Ox] 400 mg PO DAILY 05/12/23 09/26/23 Mirtazapine [Remeron] 30 mg PO HS 05/12/23 09/26/23 Folic Acid 1 mg PO DAILY 06/15/23 09/26/23 HYDROcodone/APAP 7.5-325MG [[place] 1 tab PO TID PRN 08/25/23 09/26/23 7.5-325] Insulin Lispro [humaLOG Kwikpen] See Protocol SQ AC-TID 09/03/23 09/26/23 Losartan-Hctz 50-12.5 mg [Hyzaar 1 tab PO DAILY 09/26/23 09/26/23 50-12.5] Previous Rx's Medication Instructions Recorded Metoclopramide [Reglan] 10 mg PO ACHS 30 Days #120 tab 05/15/23 Pantoprazole [Protonix] 40 mg PO AC-BID 30 Days #60 tab 05/21/23 Ondansetron [Zofran] 4 mg PO DAILY 30 Days #30 tab 06/26/23 Insulin Glargine [Lantus Vial] 10 unit SQ DAILY #0 09/20/23 Allergies Allergy/AdvReac Type Severity Reaction Status Date / Time fentanyl Allergy Unknown Verified 09/26/23 18:23 Review of Systems ROS Statement: Those systems with pertinent positive or pertinent negative responses have been documented in the HPI. ROS Other: All systems not noted in ROS Statement are negative. Past Medical History Past Medical History: Diabetes Mellitus, Hypertension, Musculoskeletal Disorder Additional Past Medical History / Comment(s): FREQ NAUSEA, PAINFUL RT SHOULDER "FROZEN SHOULDER", NEUROPATHY PORFIRIO LEGS and hands, Blood pressures can run high History of Any Multi-Drug Resistant Organisms: MRSA Date of last positivie culture/infection: 05/19/23 MDRO Source:: Urine Past Surgical History: Orthopedic Surgery, Tubal Ligation Additional Past Surgical History / Comment(s): rt shoulder Past Anesthesia/Blood Transfusion Reactions: No Reported Reaction Additional Past Anesthesia/Blood Transfusion Reaction / Comment(s): UNK FAMILY HX Past Psychological History: Anxiety Smoking Status: Current every day smoker Past Alcohol Use History: None Reported Past Drug Use History: Marijuana - Past Family History Father History Unknown: Yes Additional Family Medical History / Comment(s): unknown-adopted Mother History Unknown: Yes Additional Family Medical History / Comment(s): unknown- adopted General Exam General appearance: alert, cachectic Head exam: Present: atraumatic, normocephalic, normal inspection Eye exam: Present: normal appearance, PERRL, EOMI. Absent: scleral icterus, conjunctival injection, periorbital swelling ENT exam: Present: mucous membranes dry Respiratory exam: Present: normal lung sounds bilaterally. Absent: respiratory distress, wheezes, rales, rhonchi, stridor Cardiovascular Exam: Present: tachycardia GI/Abdominal exam: Present: soft, tenderness (Generalized) Psychiatric exam: Present: normal affect, normal mood Skin exam: Present: warm, dry, intact, normal color. Absent: rash Course Vital Signs 09/26/23 18:15 Temperature 98.0 F Pulse Rate 106 H Respiratory 18 Rate Blood Pressure 105/70 O2 Sat by Pulse 99 Oximetry Medical Decision Making - Medical Decision Making Was pt. sent in by a medical professional or institution (DANA Rosales, MASK DESIGN ENGINEER, urgent care, hospital, or assisted...) When possible be specific @ -No Did you speak to anyone other than the patient for history (EMS, parent, family, police, friend...)? What history was obtained from this source @ -EMS Did you review nursing and triage notes (agree or disagree)? Why? @ -I reviewed and agree with nursing and triage notes Were old charts reviewed (outside hosp., previous admission, EMS record, old EKG, old radiological studies, urgent care reports/EKG's, assisted records)? Report findings @ -Reviewed patient's chart from October 19 she was hospitalized for the same complaint Differential Diagnosis (chest pain, altered mental status, abdominal pain women, abdominal pain men, vaginal bleeding, weakness, fever, dyspnea, syncope, headache, dizziness, GI bleed, back pain, seizure, CVA, palpatations, mental health, musculoskeletal)? @ -Differential Abdominal Pain Women: Appendicitis, Cholecystitis, diverticulosis, ischemic bowel, pancreatitis, hepatitis, UTI, gastroenteritis, AAA, incarcerated hernia, bowel obstruction, constipation, inflammatory bowel, hepatitis, peptic ulcer disease, splenic infarction, perforated viscus, vulvitis, ovarian torsion, PID, kidney stone, placenta abruption, this is not meant to be an all-inclusive list EKG interpreted by me (3pts min.). @ -Not done X-rays interpreted by me (1pt min.). @ -None done CT interpreted by me (1pt min.). @ -None done U/S interpreted by me (1pt. min.). @ -None done What testing was considered but not performed or refused? (CT, X-rays, U/S, labs)? Why? @ -None What meds were considered but not given or refused? Why? @ -None Did you discuss the management of the patient with other professionals (professionals i.e. DANA Rosales, MASK DESIGN ENGINEER, lab, RT, psych nurse, social welfare administrator, radio program checker, teacher, police officer crime prevention, catalytic case operator)? Give summary @ -Spoke with Dr. Marshall who will admit the patient Was smoking cessation discussed for >3mins.? @ -No Was critical care preformed (if so, how long)? @ -No Were there social determinants of health that impacted care today? How? (Homelessness, low income, unemployed, alcoholism, drug addiction, transportation, low edu. Level, literacy, decrease access to med. care, senior living, rehab)? @ -No Was there de-escalation of care discussed even if they declined (Discuss DNR or withdrawal of care, Hospice)? DNR status @ -No What co-morbidities impacted this encounter? (DM, HTN, Smoking, COPD, CAD, Cancer, CVA, ARF, Chemo, Hep., AIDS, mental health diagnosis, sleep apnea, morbid obesity)? @ -Diabetes mellitus, diabetic gastroparesis Was patient admitted / discharged? Hospital course, mention meds given and route, prescriptions, significant lab abnormalities, going to OR and other pertinent info. @ -Upon arrival patient was placed into hallway 26. Thorough history and physical exam was performed. IV was established and laboratory studies are conducted. Patient was given fluid hydration. Laboratory studies are reviewed for DKA which the patient does not meet criteria for however she is hyperglycemic and dehydrated. She receives Reglan and Benadryl. She has already received Zofran. Patient continues to be nauseated. As she has had 4 doses of antiemetics with continued nausea I did recommend admission for which she was agreeable. Spoke with Dr. Marshall agreed to admit the patient Undiagnosed new problem with uncertain prognosis? @ -No Drug Therapy requiring intensive monitoring for toxicity (Heparin, Nitro, Insulin, Cardizem)? @ -No Were any procedures done? @ -No Diagnosis/symptom? @ -Intractable nausea, vomiting, chronic abdominal pain, history of gastroparesis Acute, or Chronic, or Acute on Chronic? @ -Acute on chronic Uncomplicated (without systemic symptoms) or Complicated (systemic symptoms)? @ -Complicated Side effects of treatment? @ -No Exacerbation, Progression, or Severe Exacerbation? @ -Yes Poses a threat to life or bodily function? How? (Chest pain, USA, GA, pneumonia, PE, COPD, DKA, ARF, appy, cholecystitis, CVA, Diverticulitis, Homicidal, Suicidal, threat to staff... and all critical care pts) @ -No - Lab Data Result diagrams: 09/26/23 18:49 09/26/23 18:49 Lab Results 09/26/23 09/26/23 09/26/23 Range/Units 18:49 18:49 18:49 WBC 7.5 (3.8-10.6) k/uL RBC 4.27 (3.80-5.40) m/uL Hgb 11.9 (11.4-16.0) gm/dL Hct 36.9 (34.0-46.0) % MCV 86.4 D (80.0-100.0) fL MCH 27.9 (25.0-35.0) pg MCHC 32.2 (31.0-37.0) g/dL RDW 14.7 (11.5-15.5) % Plt Count 416 (150-450) k/uL MPV 8.1 Neutrophils % 66 % Lymphocytes % 23 % Monocytes % 6 % Eosinophils % 2 % Basophils % 2 % Neutrophils # 5.0 (1.3-7.7) k/uL Lymphocytes # 1.7 (1.0-4.8) k/uL Monocytes # 0.5 (0-1.0) k/uL Eosinophils # 0.1 (0-0.7) k/uL Basophils # 0.1 (0-0.2) k/uL Sodium 125 L (137-145) mmol/L Potassium 4.4 (3.5-5.1) mmol/L Chloride 89 L (98-107) mmol/L Carbon Dioxide 31 H (22-30) mmol/L Anion Gap 5 mmol/L BUN 32 H (7-17) mg/dL Creatinine 0.52 (0.52-1.04) mg/dL Est GFR (CKD-EPI)AfAm >90 (>60 ml/min/1.73 sqM) Est GFR (CKD-EPI)NonAf >90 (>60 ml/min/1.73 sqM) Glucose 524 H* (74-99) mg/dL Calcium 9.1 (8.4-10.2) mg/dL Total Bilirubin 0.4 (0.2-1.3) mg/dL AST 25 (14-36) U/L ALT 30 (4-34) U/L Alkaline Phosphatase 131 H (38-126) U/L Total Protein 6.4 (6.3-8.2) g/dL Albumin 3.3 L (3.5-5.0) g/dL Lipase 148 (23-300) U/L Urine Color Colorless Urine Appearance Clear (Clear) Urine pH 7.0 (5.0-8.0) Ur Specific [place] 1.031 (1.001-1.035) Urine Protein 3+ H (Negative) Urine Glucose (UA) 4+ H (Negative) Urine Ketones 1+ H (Negative) Urine Blood Trace H (Negative) Urine Nitrite Negative (Negative) Urine Bilirubin Negative (Negative) Urine Urobilinogen <2.0 (<2.0) mg/dL Ur Leukocyte Esterase Negative (Negative) Urine RBC 4 (0-5) /hpf Urine WBC <1 (0-5) /hpf Ur Squamous Epith Cells <1 (0-4) /hpf Hyaline Casts 1 (0-2) /lpf Disposition Clinical Impression: Diabetic gastroparesis, Hyperglycemia Disposition: ADMITTED IP TO THIS [facility] Condition: Stable Is patient prescribed a controlled substance at d/c from ED?: No Time of Disposition: 21:23 Decision to Admit Reason: Admit from EC Decision Date: 09/26/23 Decision Time: 21:23
[2023-09-26 21:32] LABS: Glucose,Whole Blood 467 mg/dL (70-110)
[2023-09-26] MEDS: INSULIN ASPART (NovoLOG) 100 UNIT/ML VIAL SQ SCH (21:36)
[2023-09-26] MEDS: SODIUM CHLORIDE 0.9% 1,000 ML IV ONE (21:37)
[2023-09-26] MEDS: MIRTAZAPINE 15 MG TAB PO SCH (22:32)
[2023-09-26] MEDS: PANTOPRAZOLE 40 MG TABLET PO SCH (22:33)
[2023-09-26] MEDS: ALPRAZolam 0.25 MG TAB PO PRN (22:33)
[2023-09-27] MEDS: HYDROcodone/APAP 7.5-325MG 1 EACH TAB PO PRN (00:41)
[2023-09-27 02:24] LABS: Glucose,Whole Blood 322 mg/dL (70-110)
[2023-09-27] MEDS: HYDROmorphone 1 MG/ML 1 ML SYRINGE IVP PRN (02:46)
[2023-09-27] MEDS: SODIUM CHLORIDE 0.9% 1,000 ML IV SCH (04:04)
[2023-09-27 07:37] LABS: Glucose,Whole Blood 356 mg/dL (70-110)
[2023-09-27] MEDS: INSULIN ASPART (NovoLOG) 100 UNIT/ML VIAL SQ SCH (07:55)
[2023-09-27 08:18] LABS: Basophils # (A) 0.1 k/uL (0-0.2); Basophils % (A) 1 %; Eosinophils # (A) 0.2 k/uL (0-0.7); Eosinophils % (A) 4 %; HCT 32.9 % (34.0-46.0); HGB 10.3 gm/dL (11.4-16.0); Hypochromasia Slight; Lymphocytes % (A) 34 %; MCH 28.1 pg (25.0-35.0); MCHC 31.3 g/dL (31.0-37.0); MCV 89.8 fL (80.0-100.0); Mean Platelet Volume 8.4; Monocytes # (A) 0.4 k/uL (0-1.0); Monocytes % (A) 7 %; Neutrophils # (A) 3.2 k/uL (1.3-7.7); Neutrophils % (A) 53 %; Platelet Count 362 k/uL (150-450); RBC 3.67 m/uL (3.80-5.40); RDW 14.7 % (11.5-15.5); WBC 6.1 k/uL (3.8-10.6)
[2023-09-27 08:27] LABS: African American GFR (CKD) >90 (>60 ml/min/1.73 sqM); Anion Gap 4 mmol/L; Blood Urea Nitrogen 29 mg/dL (7-17); Calcium 7.8 mg/dL (8.4-10.2); Carbon Dioxide 23 mmol/L (22-30); Chloride 103 mmol/L (98-107); Glucose 340 mg/dL (74-99); Non-African American GFR(CKD) >90 (>60 ml/min/1.73 sqM); Potassium 4.1 mmol/L (3.5-5.1); Sodium 130 mmol/L (137-145)
[2023-09-27] MEDS: IPRATROPIUM-ALBUTEROL 3 ML NEB INHALATION SCH (08:54)
[2023-09-27] MEDS: DULoxetine HCL 30 MG CAPSULE.DR PO SCH (09:05)
[2023-09-27] MEDS: ATORVASTATIN 20 MG TAB PO SCH (09:05)
[2023-09-27] MEDS: MAGNESIUM OXIDE 400 MG TAB PO SCH (09:06)
[2023-09-27] MEDS: FOLIC ACID 1 MG TAB PO SCH (09:06)
[2023-09-27 09:38] LABS: Glucose,Whole Blood 356 mg/dL (70-110)
[2023-09-27] MEDS: LOSARTAN-HCTZ 50-12.5 MG 1 EACH TAB PO SCH (09:38)
[2023-09-27] MEDS: INSULIN DETEMIR (LEVEMIR) 100 UNIT/ML SYR SQ SCH (09:38)
[2023-09-27 12:26] LABS: Glucose,Whole Blood 272 mg/dL (70-110)
[2023-09-27 15:02] VITALS: BMI 15.1
[2023-09-27 16:38] LABS: Glucose,Whole Blood 95 mg/dL (70-110)
[2023-09-27 18:15] LABS: Glucose,Whole Blood 49 mg/dL (70-110)
[2023-09-27] MEDS: DEXTROSE 50% SYRINGE 50 ML IVP PRN (18:17)
[2023-09-27 18:39] LABS: Glucose,Whole Blood 222 mg/dL (70-110)
[2023-09-27] MEDS: ONDANSETRON 4 MG/2 ML VIAL IVP PRN (20:48)
[2023-09-27 23:58] LABS: Glucose,Whole Blood 141 mg/dL (70-110)
[2023-09-28 06:10] LABS: Glucose,Whole Blood 175 mg/dL (70-110)
[2023-09-28] MEDS: INSULIN DETEMIR (LEVEMIR) 100 UNIT/ML SYR SQ SCH (06:26)
[2023-09-28 09:20] LABS: Basophils # (A) 0.1 k/uL (0-0.2); Basophils % (A) 1 %; Eosinophils # (A) 0.2 k/uL (0-0.7); Eosinophils % (A) 3 %; HCT 34.4 % (34.0-46.0); HGB 10.4 gm/dL (11.4-16.0); Hypochromasia Marked; Lymphocytes # (A) 1.6 k/uL (1.0-4.8); Lymphocytes % (A) 20 %; MCH 27.6 pg (25.0-35.0); MCHC 30.2 g/dL (31.0-37.0); MCV 91.4 fL (80.0-100.0); Mean Platelet Volume 8.4; Monocytes # (A) 0.4 k/uL (0-1.0); Monocytes % (A) 6 %; Neutrophils # (A) 5.4 k/uL (1.3-7.7); Neutrophils % (A) 69 %; Platelet Count 316 k/uL (150-450); RBC 3.76 m/uL (3.80-5.40); RDW 14.8 % (11.5-15.5); WBC 7.9 k/uL (3.8-10.6)
[2023-09-28 09:38] LABS: ALT 24 U/L (4-34); AST 30 U/L (14-36); African American GFR (CKD) >90 (>60 ml/min/1.73 sqM); Albumin 2.3 g/dL (3.5-5.0); Alkaline Phosphatase 79 U/L (38-126); Anion Gap 2 mmol/L; Blood Urea Nitrogen 19 mg/dL (7-17); Calcium 7.7 mg/dL (8.4-10.2); Carbon Dioxide 20 mmol/L (22-30); Chloride 110 mmol/L (98-107); Glucose 142 mg/dL (74-99); Non-African American GFR(CKD) >90 (>60 ml/min/1.73 sqM); Potassium 4.1 mmol/L (3.5-5.1); Sodium 132 mmol/L (137-145); Total Bilirubin <0.1 mg/dL (0.2-1.3); Total Protein 5.1 g/dL (6.3-8.2)
[2023-09-28 11:35] LABS: Glucose,Whole Blood 154 mg/dL (70-110)
--- NOTE | 2023-09-28 15:27 | HP ---
HISTORY AND PHYSICAL 09/27/2023 for history and physical. HISTORY OF PRESENT ILLNESS: This is a 53-year-old white female back in the hospital for recurrent nausea, vomiting, and gastroparesis with severe dehydration and malnutrition. Her weight is down to 77. She has lost weight since last admission, unable to hold any food or water down. She has type 1 diabetes mellitus. She is supposed to get a gastric pump soon . Her A1c and her sugars are high, but she continues to eat sugar at home and she has tube feedings go on due to esophageal dysmobility. HOME MEDICATIONS: 1. Xanax 0.25 b.i.d. 2. Lipitor 20 daily. 3. Cymbalta 30 daily. 4. Humalog 2 units a.c. t.i.d. 5. DuoNeb b.i.d. 6. Mag oxide 400 daily. 7. Remeron 30 at night. 8. Folic acid 1 mg daily. 9. [place] 7.5 t.i.d. 10.KwikPen insulin a.c. and h.s. 11.Losartan/hydrochlorothiazide 50/12.5 one daily. ALLERGIES: Fentanyl. REVIEW OF SYSTEMS: Nausea, vomiting, dehydration, difficulty breathing, and diabetes mellitus. Otherwise, 12-point review of systems negative. PAST MEDICAL HISTORY: Diabetes mellitus, hypertension, musculoskeletal disorder, and COPD. PAST SURGICAL HISTORY: Orthopedic surgery and tubal ligation. She has severe anxiety issues. SOCIAL HISTORY: Current everyday smoker. Does marijuana. FAMILY HISTORY: Father and mother history unknown. PHYSICAL EXAMINATION: VITAL SIGNS: Temperature 98, pulse 106, respiratory rate 16 to 18, blood pressure is 105/70, and O2 saturation 99%. GENERAL: Thin, cachectic. She looks weak. SKIN: Dry skin turgor. HEENT: Dry mucous membranes. CARDIOVASCULAR: S1 and S2. ABDOMEN: She has a PEG tube coming out. Soft. Normal bowel sounds. HEMATOLOGY: Negative Homans. disorder, malnourished. She has hyperglycemia, no DKA. Severe dehydration, acute kidney injury, hyponatremia secondary to dehydration, thrombocytopenia, thrombocytosis secondary to multiple sources of inflammatory sources, diabetic gastroparesis, and hyperglycemia. Prognosis guarded. Clear liquids. Tube feedings. IV medicine for nausea and vomiting. Once better, we will advance diet and sent her home. Prognosis guarded. Accu-Chek per protocol. MMODL / IJN: [id number] /
[2023-09-28 16:25] LABS: Glucose,Whole Blood 224 mg/dL (70-110)
[2023-09-28] MEDS: METOCLOPRAMIDE 5 MG/ML 2 ML VIAL IVP PRN (17:27)
[2023-09-28 21:58] LABS: Glucose,Whole Blood 129 mg/dL (70-110)
[2023-09-29 06:17] LABS: Glucose,Whole Blood 227 mg/dL (70-110)
[2023-09-29 08:15] LABS: Glucose,Whole Blood 319 mg/dL (70-110)
[2023-09-29 11:40] LABS: Glucose,Whole Blood 310 mg/dL (70-110)
[2023-09-29 16:30] LABS: Glucose,Whole Blood 243 mg/dL (70-110)
[2023-09-30 00:13] LABS: Glucose,Whole Blood 191 mg/dL (70-110)
[2023-09-30 06:03] LABS: Glucose,Whole Blood 248 mg/dL (70-110)
[2023-09-30 11:59] LABS: Glucose,Whole Blood 198 mg/dL (70-110)
[2023-09-30 17:20] LABS: Glucose,Whole Blood 107 mg/dL (70-110)
--- NOTE | 2023-09-30 23:03 | PN ---
PROGRESS NOTE SUBJECTIVE: This is a white female with gastroparesis, diet is being advanced. OBJECTIVE: VITAL SIGNS: Blood pressure is 141/87, O2 97, pulse is 102, respiratory rate 16 to 18, and temperature 98.2. CARDIOVASCULAR: S1, S2. LUNGS: Transmitted upper airway sounds. GI: Soft. HEMATOLOGY: Negative for Homans. PSYCH: Fair mood and affect. Malnourished, low BMI. Continue oral intake when nausea slows down, vomiting, tomorrow would discharge her home. PT OT get involved. Follow up with door operator in [place]. Her sugars are better and now her sugars in the mid 100s to 200s. Possibly discharge home when diet is good and no nausea persists. MMODL / IJN: [id number] /
[2023-10-01 00:24] LABS: Glucose,Whole Blood 225 mg/dL (70-110)
[2023-10-01 06:01] LABS: Glucose,Whole Blood 287 mg/dL (70-110)
[2023-10-01 08:42] VITALS: RESP 18
[2023-10-01 11:13] LABS: ALT 34 U/L (4-34); AST 49 U/L (14-36); African American GFR (CKD) >90 (>60 ml/min/1.73 sqM); Albumin 2.4 g/dL (3.5-5.0); Alkaline Phosphatase 86 U/L (38-126); Anion Gap 1 mmol/L; Blood Urea Nitrogen 25 mg/dL (7-17); Calcium 7.6 mg/dL (8.4-10.2); Carbon Dioxide 23 mmol/L (22-30); Chloride 111 mmol/L (98-107); Glucose 256 mg/dL (74-99); Non-African American GFR(CKD) >90 (>60 ml/min/1.73 sqM); Potassium 5.6 mmol/L (3.5-5.1); Sodium 135 mmol/L (137-145); Total Bilirubin <0.1 mg/dL (0.2-1.3)
[2023-10-01 11:40] LABS: Basophils # (A) 0.1 k/uL (0-0.2); Basophils % (A) 1 %; Eosinophils # (A) 0.3 k/uL (0-0.7); Eosinophils % (A) 3 %; HCT 32.3 % (34.0-46.0); Hypochromasia Slight; Lymphocytes # (A) 2.1 k/uL (1.0-4.8); Lymphocytes % (A) 23 %; MCH 28.3 pg (25.0-35.0); MCHC 31.1 g/dL (31.0-37.0); MCV 91.2 fL (80.0-100.0); Mean Platelet Volume 9.6; Monocytes # (A) 0.5 k/uL (0-1.0); Monocytes % (A) 5 %; Neutrophils # (A) 6.1 k/uL (1.3-7.7); Neutrophils % (A) 67 %; Platelet Count 250 k/uL (150-450); RBC 3.54 m/uL (3.80-5.40); RDW 14.9 % (11.5-15.5); WBC 9.1 k/uL (3.8-10.6)
[2023-10-01 12:13] LABS: Glucose,Whole Blood 219 mg/dL (70-110)
[2023-10-01 18:04] LABS: Glucose,Whole Blood 166 mg/dL (70-110)
[2023-10-01 21:02] VITALS: BP 129/71; PULSE 101; TEMP 97.7
== END 2023-10-01 20:43 | disposition home or self-care (01) | DRG 73 ==
LOC: EC 18:14 → 4SSUR 21:24 → 3SCARD 22:25 → OBSVTOIN 09-30 11:38 → 3SCARD 10-01 06:06
PROVIDERS: ADMIT Family Medicine; ATTEND Family Medicine
PROC: 05HB33Z Insertion of Infusion Device into Right Basilic Vein, Percutaneous Approach (ICD-10-PCS; principal; 2023-09-30 16:00)
DX: E10.43 Type 1 diabetes mellitus with diabetic autonomic (poly)neuropathy (principal); E43 Unspecified severe protein-calorie malnutrition; Z68.1 Body mass index [BMI] 19.9 or less, adult; E86.0 Dehydration; G89.29 Other chronic pain; I10 Essential (primary) hypertension; J44.9 Chronic obstructive pulmonary disease, unspecified; K31.84 Gastroparesis; Z79.4 Long term (current) use of insulin
CPT/HCPCS: 36410; 36415; 76937; 80048; 80053; 81001; 82009; 83036; 83690; 85025; 87077; 87086; 87186; 94640; 96374; 96375; 96376; 99285

== ENCOUNTER 2023-10-06 08:43 | Inpatient (IN) | payer MEDICARE, OTHER ==
[2023-10-06 09:34] LABS: Basophils # (A) 0.2 k/uL (0-0.2); Basophils % (A) 1 %; Eosinophils # (A) 0.1 k/uL (0-0.7); Eosinophils % (A) 0 %; HCT 40.8 % (34.0-46.0); HGB 12.7 gm/dL (11.4-16.0); Hypochromasia Slight; Lymphocytes # (A) 1.7 k/uL (1.0-4.8); Lymphocytes % (A) 8 %; MCH 28.1 pg (25.0-35.0); MCHC 31.2 g/dL (31.0-37.0); MCV 90.2 fL (80.0-100.0); Mean Platelet Volume 8.3; Monocytes # (A) 0.7 k/uL (0-1.0); Monocytes % (A) 3 %; Neutrophils # (A) 17.4 k/uL (1.3-7.7); Neutrophils % (A) 86 %; Platelet Count 481 k/uL (150-450); RBC 4.52 m/uL (3.80-5.40); RDW 14.9 % (11.5-15.5); WBC 20.1 k/uL (3.8-10.6)
--- NOTE | 2023-10-06 09:41 | ED ---
General Adult HPI - General Chief complaint: Abdominal Pain Stated complaint: NVD Time Seen by Provider: 10/06/23 08:47 Source: EMS Mode of arrival: EMS Limitations: no limitations - History of Present Illness Initial comments: Dictation was produced using [employer] dictation software. please excuse any grammatical, word or spelling errors. Chief Complaint: 53-year-old female presents yet again for gastroparesis symptoms History of Present Illness: Patient is 53-year-old female she is well-known to emergency department she has history of chronic gastroparesis. She has been in and out of of inpatient medicine under the care of Dr. Pike. She has known history of diabetic gastroparesis. She is scheduled to have a stimulator to be placed at [facility] in October. She was just discharged from the hospital 5 days ago after being admitted for the same issues. Patient states that she was discharged home with nausea and pain medicine however feels like those medications and work. She has a feeding tube however states that she continues to vomit. Denies any fever. Patient states that her abdominal pain is like her usual abdominal pain that she presents to the ER with frequently. The ROS documented in this emergency department record has been reviewed and confirmed by me. Those systems with pertinent positive or negative responses have been documented in the HPI. All other systems are other negative and/or noncontributory. - Related Data Home Medications Medication Instructions Recorded Confirmed ALPRAZolam [Xanax] 0.25 mg PO BID PRN 05/12/23 09/26/23 Atorvastatin [Lipitor] 20 mg PO DAILY 05/12/23 09/26/23 DULoxetine HCL [Cymbalta] 30 mg PO DAILY 05/12/23 09/26/23 Insulin Lispro [humaLOG Kwikpen] 2 unit SQ AC-TID 05/12/23 09/26/23 Ipratropium-Albuterol Nebulize 3 ml INHALATION RT-BID 05/12/23 09/26/23 [Duoneb 0.5 mg-3 mg/3 ml Soln] Magnesium Oxide [Mag-Ox] 400 mg PO DAILY 05/12/23 09/26/23 Mirtazapine [Remeron] 30 mg PO HS 05/12/23 09/26/23 Folic Acid 1 mg PO DAILY 06/15/23 09/26/23 HYDROcodone/APAP 7.5-325MG [[place] 1 tab PO TID PRN 08/25/23 09/26/23 7.5-325] Insulin Lispro [humaLOG Kwikpen] See Protocol SQ AC-TID 09/03/23 09/26/23 Losartan-Hctz 50-12.5 mg [Hyzaar 1 tab PO DAILY 09/26/23 09/26/23 50-12.5] Previous Rx's Medication Instructions Recorded Metoclopramide [Reglan] 10 mg PO ACHS 30 Days #120 tab 05/15/23 Pantoprazole [Protonix] 40 mg PO AC-BID 30 Days #60 tab 05/21/23 Ondansetron [Zofran] 4 mg PO DAILY 30 Days #30 tab 06/26/23 Insulin Glargine [Lantus Vial] 10 unit SQ DAILY #0 09/20/23 Allergies Allergy/AdvReac Type Severity Reaction Status Date / Time fentanyl Allergy Unknown Verified 10/06/23 08:51 Review of Systems ROS Statement: Those systems with pertinent positive or pertinent negative responses have been documented in the HPI. ROS Other: All systems not noted in ROS Statement are negative. Past Medical History Past Medical History: Diabetes Mellitus, Hypertension, Musculoskeletal Disorder Additional Past Medical History / Comment(s): FREQ NAUSEA, PAINFUL RT SHOULDER "FROZEN SHOULDER", NEUROPATHY PORFIRIO LEGS and hands, Blood pressures can run high History of Any Multi-Drug Resistant Organisms: ESBL, MRSA, VRE Date of last positivie culture/infection: 09/28/23 VRE and ESBL;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 MDRO Source:: Urine-MRSA, VRE and ESBL Past Surgical History: Orthopedic Surgery, Tubal Ligation Additional Past Surgical History / Comment(s): rt shoulder Past Anesthesia/Blood Transfusion Reactions: No Reported Reaction Additional Past Anesthesia/Blood Transfusion Reaction / Comment(s): UNK FAMILY HX Past Psychological History: Anxiety Smoking Status: Current every day smoker Past Alcohol Use History: None Reported Past Drug Use History: Marijuana - Past Family History Father History Unknown: Yes Additional Family Medical History / Comment(s): unknown-adopted Mother History Unknown: Yes Additional Family Medical History / Comment(s): unknown- adopted General Exam - General Exam Comments Initial Comments: PHYSICAL EXAM: General Impression: Alert and oriented x3, not in acute distress HEENT: Normocephalic atraumatic, extra-ocular movements intact, pupils equal and reactive to light bilaterally, mucous membranes moist. Cardiovascular: Heart regular rate and rhythm Chest: Able to complete full sentences, no retractions, no tachypnea Abdomen: abdomen soft, diffuse palpatory tenderness of the abdomen, non-d istended, no organomegaly Musculoskeletal: Pulses present and equal in all extremities, no peripheral edema Motor: no focal deficits noted Neurological: CN II-XII grossly intact, no focal motor or sensory deficits noted Skin: Intact with no visualized rashes Psych: Normal affect and mood Limitations: no limitations Course Vital Signs 10/06/23 10/06/23 10/06/23 08:46 08:49 09:00 Temperature 97.8 F Pulse Rate 126 H Respiratory 16 Rate Blood Pressure 122/87 122/87 122/87 O2 Sat by Pulse 97 98 96 Oximetry 10/06/23 10/06/23 10/06/23 09:30 10:00 10:30 Temperature Pulse Rate Respiratory Rate Blood Pressure 159/94 118/74 153/121 O2 Sat by Pulse 96 99 Oximetry 10/06/23 11:00 Temperature Pulse Rate Respiratory Rate Blood Pressure 115/76 O2 Sat by Pulse 99 Oximetry Medical Decision Making - Medical Decision Making Was pt. sent in by a medical professional or institution (, PA, [facility], urgent care, hospital, or senior living...) When possible be specific @ -No Did you speak to anyone other than the patient for history (EMS, parent, family, police, friend...)? What history was obtained from this source @ -No Did you review nursing and triage notes (agree or disagree)? Why? @ -I reviewed and agree with nursing and triage notes Were old charts reviewed (outside hosp., previous admission, EMS record, old EKG, old radiological studies, urgent care reports/EKG's, senior living records)? Report findings @ -Recent discharge summary was reviewed showing that patient was here for the same thing Differential Diagnosis (chest pain, altered mental status, abdominal pain women, abdominal pain men, vaginal bleeding, musculoskeletal, weakness, fever, dyspnea, syncope, headache, dizziness, GI bleed, back pain, seizure, CVA, palpatations, mental health)? @ -Differential Abdominal Pain Women: Appendicitis, Cholecystitis, diverticulosis, ischemic bowel, pancreatitis, hepat itis, UTI, gastroenteritis, AAA, incarcerated hernia, bowel obstruction, constipation, inflammatory bowel, hepatitis, peptic ulcer disease, splenic infarction, perforated viscus, vulvitis, ovarian torsion, PID, kidney stone, placenta abruption, this is not meant to be an all-inclusive list EKG interpreted by me (3pts min.). @ -None done X-rays interpreted by me (1pt min.). @ -Abdominal x-ray shows no acute processes CT interpreted by me (1pt min.). @ -None done U/S interpreted by me (1pt. min.). @ -None done What testing was considered but not performed or refused? (CT, X-rays, U/S, labs)? Why? @ -None What meds were considered but not given or refused? Why? @ -None Did you discuss the management of the patient with other professionals (professionals i.e. , PA, [facility], lab, RT, psych nurse, medical social consultant, net technical architect, teacher, immigration services officer, caser)? Give summary @ -Case discussed with hospitalist for admission Was smoking cessation discussed for >3mins.? @ -No Was critical care preformed (if so, how long)? @ -No Were there social determinants of health that impacted care today? How? (Homelessness, low income, unemployed, alcoholism, drug addiction, transportation, low edu. Level, literacy, decrease access to med. care, fci, rehab)? @ -No Was there de-escalation of care discussed even if they declined (Discuss DNR or withdrawal of care, Hospice)? DNR status @ -No What co-morbidities impacted this encounter? (DM, HTN, Smoking, COPD, CAD, Cancer, CVA, ARF, Chemo, Hep., AIDS, mental health diagnosis, sleep apnea, morbid obesity)? @ -None Was patient admitted / discharged? Hospital course, mention meds given and route, prescriptions, significant lab abnormalities, going to OR and other pertinent info. @ -53-year-old female presents emergency department for acute on chronic abdominal pain. Patient found out to the emergency department for multiple visitations for gastroparesis and chronic abdominal pain. Patient has uncontrolled diabetes. Vital signs upon arrival are within acceptable limits. Patient has been seen and evaluated by me on multiple occasions. She appears to be at baseline. Laboratory evaluation shows leukocytosis 20.1. Rest of labs within acceptable limits. patient admitted. Undiagnosed new problem with uncertain prognosis? @ -No Drug Therapy requiring intensive monitoring for toxicity (Heparin, Nitro, Insulin, Cardizem)? @ -No Were any procedures done? @ -No Diagnosis/symptom? Acute, or Chronic, or Acute on Chronic? Uncomplicated (without systemic symptoms) or Complicated (systemic symptoms)? @ -Chronic abdominal pain Side effects of treatment? @ -No Exacerbation, Progression, or Severe Exacerbation? @ -No Poses a threat to life or bodily function? How? (Chest pain, USA, PA, pneumonia, PE, COPD, DKA, ARF, appy, cholecystitis, CVA, Diverticulitis, Homicidal, Suicidal, threat to staff... and all critical care pts) @ -yes - Lab Data Result diagrams: 10/06/23 09:15 10/06/23 09:15 Lab Results 10/06/23 10/06/23 10/06/23 Range/Units 09:15 09:15 09:15 WBC 20.1 H (3.8-10.6) k/uL RBC 4.52 (3.80-5.40) m/uL Hgb 12.7 (11.4-16.0) gm/dL Hct 40.8 (34.0-46.0) % MCV 90.2 (80.0-100.0) fL MCH 28.1 (25.0-35.0) pg MCHC 31.2 (31.0-37.0) g/dL RDW 14.9 (11.5-15.5) % Plt Count 481 H (150-450) k/uL MPV 8.3 Neutrophils % 86 % Lymphocytes % 8 % Monocytes % 3 % Eosinophils % 0 % Basophils % 1 % Neutrophils # 17.4 H (1.3-7.7) k/uL Lymphocytes # 1.7 (1.0-4.8) k/uL Monocytes # 0.7 (0-1.0) k/uL Eosinophils # 0.1 (0-0.7) k/uL Basophils # 0.2 (0-0.2) k/uL Hypochromasia Slight Sodium 132 L (137-145) mmol/L Potassium 4.1 (3.5-5.1) mmol/L Chloride 91 L (98-107) mmol/L Carbon Dioxide 31 H (22-30) mmol/L Anion Gap 10 mmol/L BUN 32 H (7-17) mg/dL Creatinine 0.74 (0.52-1.04) mg/dL Est GFR (CKD-EPI)AfAm >90 (>60 ml/min/1.73 sqM) Est GFR (CKD-EPI)NonAf >90 (>60 ml/min/1.73 sqM) Glucose 468 H (74-99) mg/dL Plasma Lactic Acid Travis 2.1 H* (0.7-2.0) mmol/L Calcium 9.5 (8.4-10.2) mg/dL Magnesium 1.8 (1.6-2.3) mg/dL Total Bilirubin 0.5 (0.2-1.3) mg/dL AST 34 (14-36) U/L ALT 40 H (4-34) U/L Alkaline Phosphatase 144 H (38-126) U/L Total Protein 7.1 (6.3-8.2) g/dL Albumin 3.8 (3.5-5.0) g/dL Disposition Clinical Impression: Abdominal pain Disposition: ADMITTED IP TO THIS [facility] Condition: Fair Referrals: Dell Pike MD [Primary Care Provider] - 1-2 days Decision Time: 12:00
[2023-10-06 09:55] LABS: ALT 40 U/L (4-34); AST 34 U/L (14-36); African American GFR (CKD) >90 (>60 ml/min/1.73 sqM); Albumin 3.8 g/dL (3.5-5.0); Alkaline Phosphatase 144 U/L (38-126); Anion Gap 10 mmol/L; Blood Urea Nitrogen 32 mg/dL (7-17); Calcium 9.5 mg/dL (8.4-10.2); Carbon Dioxide 31 mmol/L (22-30); Chloride 91 mmol/L (98-107); Glucose 468 mg/dL (74-99); Magnesium 1.8 mg/dL (1.6-2.3); Non-African American GFR(CKD) >90 (>60 ml/min/1.73 sqM); Potassium 4.1 mmol/L (3.5-5.1); Sodium 132 mmol/L (137-145); Total Bilirubin 0.5 mg/dL (0.2-1.3); Total Protein 7.1 g/dL (6.3-8.2)
--- NOTE | 2023-10-06 11:37 | XR ---
EXAMINATION TYPE: XR abdomen 1V DATE OF EXAM: 10/06/2023 Comparison: 04/18/2013 Clinical History: 53-year-old female abdominal pain Findings: Bilateral nipple shadows. A PEG tube is present. No evidence for free intraperitoneal air. No dilated small bowel. Overall positive bowel gas limits evaluation. No significant stool burden. Impression: Nonspecific bowel gas. A PEG tube is present. Bilateral nipple shadows.
[2023-10-06] MEDS ORDERED: NALOXONE 0.4 MG/ML 1 ML VIAL IV PRN (11:56)
[2023-10-06] MEDS ORDERED: MORPHINE SULFATE 4 MG/ML SYRINGE IV PRN (11:56)
[2023-10-06] MEDS ORDERED: ACETAMINOPHEN TAB 325 MG TAB PO PRN (12:07)
[2023-10-06] MEDS ORDERED: DEXTROSE 50% SYRINGE 50 ML IVP PRN ×2 (12:17)
[2023-10-06] MEDS: ONDANSETRON 4 MG/2 ML VIAL IVP STA (13:12)
[2023-10-06] MEDS: MORPHINE SULFATE 4 MG/ML SYRINGE IV STA (13:12)
[2023-10-06] MEDS: cefTRIAXone IN SWFI 1,000 MG/10 ML SYRINGE IVP STA (13:12)
[2023-10-06] MEDS: metroNIDAZOLE-NS PMX 500 MG in SALINE 1 100ML.BAG IVPB STA (13:13)
[2023-10-06] MEDS: SODIUM CHLORIDE 0.9% 1,000 ML IV SCH (13:13)
[2023-10-06] MEDS: INSULIN ASPART (NovoLOG) 100 UNIT/ML VIAL SQ SCH (13:25)
--- NOTE | 2023-10-06 13:59 | CT ---
EXAMINATION TYPE: CT abdomen pelvis w con DATE OF EXAM: 10/06/2023 COMPARISON: 08/22/2023 HISTORY: 53-year-old female with pain, Suspected Colitis. TECHNIQUE: Contiguous axial scanning of the abdomen and pelvis following administration of 100 ml Iso coby 300 IV contrast. Delayed images through the kidneys and coronal/sagittal reconstructions perform ed. CT DLP: 368.1 mGycm Automated exposure control for dose reduction was used. FINDINGS: The heart is normal size without pericardial effusion. Lung bases clear without pleural eff usion. PEG tube is in place. Prominent fluid distending the stomach. The PEG tube loops within the fundus of the stomach with distal aspect abutting the right lateral aspect of the gastric antrum. No focal liver lesion or blurry ductal dilatation. Portal venous system is patent. Adrenal glands, kidneys, spleen, and pancreas within normal limits. Moderate atherosclerotic calcifications abdominal aorta and common iliac arteries. Scattered fluid-filled small bowel loops throughout mucosal hyperemia. The bowel loops are patulous 2 .6 cm but without abnormal dilatation. Additional circumferential pancolonic wall thickening extendin g distally to the rectum. No significant stool burden. Normal appendix. No mesenteric or retroperitoneal adenopathy clearly identified. Mild circumferential bladder wall thickening. Uterus anteverted. Ovaries not clearly delineated from clustered bowel loops. No abnormal fluid collection the pelvis or pelvic lymphadenopathy. Bones: No osseous destructive process. Unchanged anterior wedge deformity T12 and mild superior end p late deformity L4. IMPRESSION: 1. PROMINENT FLUID-FILLED SMALL BOWEL LOOPS THROUGHOUT WITH MUCOSAL HYPEREMIA. PROMINENT FLUID DISTEN TION OF THE STOMACH WELL. CORRELATE FOR ONGOING GASTROENTERITIS. 2. IN ADDITION, THERE IS NOW DIFFUSE CIRCUMFERENTIAL THICKENING OF THE COLON DISTALLY TO THE RECTUM. CORRELATE FOR SUPERIMPOSED MODERATE MORALES COLITIS. 3. ADDITIONAL CIRCUMFERENTIAL BLADDER WALL THICKENING. CORRELATE TO EXCLUDE CYSTITIS. 4. INDWELLING PEG TUBE SIMILAR TO PRIOR. LOOPED WITHIN THE GASTRIC FUNDUS BUT TIP ABUTTING THE WALL O F THE DISTAL STOMACH.
[2023-10-06 14:16] LABS: Glucose,Whole Blood 347 mg/dL (70-110)
[2023-10-06] MEDS: SODIUM CHLORIDE 0.9% 1,000 ML IV ONE ×2 (15:00→17:00)
[2023-10-06] MEDS: INSULIN ASPART (NovoLOG) 100 UNIT/ML VIAL SQ ONE (15:32)
--- NOTE | 2023-10-06 15:49 | P.HPIM ---
History of Present Illness H&P Date: 10/06/23 Chief Complaint: Nausea vomiting * 53-year-old patient with past medical history significant for chronic gastroparesis, with recurrent exacerbation fluid protein calorie malnutrition, diabetes mellitus type 2, hyperlipidemia, history of esophagitis presents to the emergency department with recurrent episode of nausea vomiting abdominal pain * Workup initiated in ER included CBC which showed WBC count of 20.1 platelet count of 481. Serum chemistry showed sodium 132 potassium 4.1 BUN 32 creatinine 0.74 lactate of 2.1. * Patient was resuscitated with fluid and a follow-up CT abdomen pelvis ordered * Patient to be admitted to medical floor with consultation from infectious disease as well prophylactically started on IV one-time dose of Rocephin and Flagyl given. Follow-up blood work post hydration ordered REVIEW OF SYSTEMS: Nausea, vomiting, abdominal CONSTITUTIONAL: No fever, no malaise, no fatigue. HEENT: No recent visual problems or hearing problems. Denied any sore throat. CARDIOVASCULAR: No chest pain, orthopnea, PND, no palpitations, no syncope. PULMONARY: No shortness of breath, no cough, no hemoptysis. GASTROINTESTINAL: No diarrhea, no nausea, no vomiting, no abdominal pain. NEUROLOGICAL: No headaches, no weakness, no numbness. HEMATOLOGICAL: Denies any bleeding or petechiae. GENITOURINARY: Denies any burning micturition, frequency, or urgency. MUSCULOSKELETAL/RHEUMATOLOGICAL: Denies any joint pain, swelling, or any muscle pain. ENDOCRINE: Denies any polyuria or polydipsia. PHYSICAL EXAMINATION: GENERAL: The patient is alert and oriented x3, ill appearance HEENT: Pupils are round and equally reacting to light. EOMI. N CARDIOVASCULAR: S1 and S2 present. No murmurs, rubs, or gallops. PULMONARY: Chest is clear to auscultation, no wheezing or crackles. ABDOMEN: Soft, peg tube in place, distended MUSCULOSKELETAL: No joint swelling or deformity. EXTREMITIES: No cyanosis, clubbing, or pedal edema. NEUROLOGICAL: Gross neurological examination did not reveal any focal deficits. SKIN: No rashes. Assessment and plan * Recurrent nausea and vomiting with acute on chronic gastroparesis * Acute gastroenteritis, suspected SBO, * Diabetes mellitus type 2 * Sepsis * History of dyslipidemia * History of hypertension * In regards to recurrent gastroparesis continue patient on fluid resuscitation, advance diet as tolerated IV Zofran ordered * In regards to SBO suspicion, Gen Surgery consultedf, NG tube ot suction, NPO * Regards to suspicion for sepsis, patient given one-time dose of antibiotic, Rocephin Flagyl given blood cultures ordered infectious disease consult * Regards to history of dyslipidemia, hypertension Home medications to be reviewed and reconciled * Status is full code Past Medical History Past Medical History: Diabetes Mellitus, Hypertension, Musculoskeletal Disorder Additional Past Medical History / Comment(s): FREQ NAUSEA, PAINFUL RT SHOULDER "FROZEN SHOULDER", NEUROPATHY PORFIRIO LEGS and hands, Blood pressures can run high History of Any Multi-Drug Resistant Organisms: ESBL, MRSA, VRE Date of last positivie culture/infection: 09/28/23 VRE and ESBL;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 MDRO Source:: Urine-MRSA, VRE and ESBL Past Surgical History: Orthopedic Surgery, Tubal Ligation Additional Past Surgical History / Comment(s): rt shoulder Past Anesthesia/Blood Transfusion Reactions: No Reported Reaction Additional Past Anesthesia/Blood Transfusion Reaction / Comment(s): UNK FAMILY HX Past Psychological History: Anxiety Smoking Status: Current every day smoker Past Alcohol Use History: None Reported Past Drug Use History: Marijuana - Past Family History Father History Unknown: Yes Additional Family Medical History / Comment(s): unknown-adopted Mother History Unknown: Yes Additional Family Medical History / Comment(s): unknown- adopted Medications and Allergies Home Medications Medication Instructions Recorded Confirmed Type ALPRAZolam [Xanax] 0.25 mg PO BID PRN 05/12/23 10/06/23 History Atorvastatin [Lipitor] 20 mg PO DAILY 05/12/23 10/06/23 History DULoxetine HCL [Cymbalta] 30 mg PO DAILY 05/12/23 10/06/23 History Insulin Lispro [humaLOG Kwikpen] 2 unit SQ AC-TID 05/12/23 10/06/23 History Ipratropium-Albuterol Nebulize 3 ml INHALATION RT-BID 05/12/23 10/06/23 History [Duoneb 0.5 mg-3 mg/3 ml Soln] Magnesium Oxide [Mag-Ox] 400 mg PO DAILY 05/12/23 10/06/23 History Mirtazapine [Remeron] 30 mg PO HS 05/12/23 10/06/23 History Metoclopramide [Reglan] 10 mg PO ACHS 30 Days #120 tab 05/15/23 10/06/23 Rx Pantoprazole [Protonix] 40 mg PO AC-BID 30 Days #60 tab 05/21/23 10/06/23 Rx Folic Acid 1 mg PO DAILY 06/15/23 10/06/23 History Ondansetron [Zofran] 4 mg PO DAILY 30 Days #30 tab 06/26/23 10/06/23 Rx HYDROcodone/APAP 7.5-325MG [[place] 1 tab PO TID PRN 08/25/23 10/06/23 History 7.5-325] Insulin Lispro [humaLOG Kwikpen] See Protocol SQ AC-TID 09/03/23 10/06/23 History Insulin Glargine [Lantus Vial] 10 unit SQ DAILY #0 09/20/23 10/06/23 Rx Losartan-Hctz 50-12.5 mg [Hyzaar 1 tab PO DAILY 09/26/23 10/06/23 History 50-12.5] Penicillin V Potassium [Pen Vee K] 500 mg PO BID 10/06/23 10/06/23 History dexAMETHasone [Decadron Elixir] 0.5 mg PO TID 10/06/23 10/06/23 History Allergies Allergy/AdvReac Type Severity Reaction Status Date / Time fentanyl Allergy Unknown Verified 10/06/23 12:17 Physical Exam Vitals: Vital Signs Temp Pulse Resp BP Pulse Ox 10/06/23 11:00 115/76 99 10/06/23 10:30 153/121 10/06/23 10:00 118/74 99 10/06/23 09:30 159/94 96 10/06/23 09:00 122/87 96 10/06/23 08:49 122/87 98 10/06/23 08:46 97.8 F 126 H 16 122/87 97 Intake and Output 10/05/23 10/06/23 10/06/23 22:59 06:59 14:59 Other: Weight 34.019 kg Results CBC & Chem 7: 10/06/23 09:15 10/06/23 09:15 Labs: Abnormal Lab Results - Last 24 Hours (Table) 10/06/23 10/06/23 10/06/23 Range/Units 09:15 09:15 09:15 WBC 20.1 H (3.8-10.6) k/uL Plt Count 481 H (150-450) k/uL Neutrophils # 17.4 H (1.3-7.7) k/uL Sodium 132 L (137-145) mmol/L Chloride 91 L (98-107) mmol/L Carbon Dioxide 31 H (22-30) mmol/L BUN 32 H (7-17) mg/dL Glucose 468 H (74-99) mg/dL Plasma Lactic Acid Travis 2.1 H* (0.7-2.0) mmol/L ALT 40 H (4-34) U/L Alkaline Phosphatase 144 H (38-126) U/L
[2023-10-06 17:41] LABS: Glucose,Whole Blood 100 mg/dL (70-110)
[2023-10-06] MEDS: PANTOPRAZOLE 40 MG/10 ML VIAL IVP SCH (18:00)
[2023-10-06] MEDS: metroNIDAZOLE-NS PMX 500 MG in SALINE 1 100ML.BAG IVPB SCH (18:01)
[2023-10-06] MEDS: METOCLOPRAMIDE 5 MG/ML 2 ML VIAL IVP SCH (18:03)
[2023-10-06] MEDS: MORPHINE SULFATE 2 MG/ML SYRINGE IV PRN (18:48)
--- NOTE | 2023-10-06 19:34 | XR ---
EXAMINATION TYPE: XR chest 1V DATE OF EXAM: 10/06/2023 4:44 PM CLINICAL INDICATION:Female, 53 years old with history of NG tube placement; [facility] COMPARISON: 07/13/2023 TECHNIQUE: XR chest 1V Portable AP radiograph of the chest.. FINDINGS: NG tube placed, extends into the left upper abdomen with tip over the mid gastric body. EKG leads and other extrinsic densities over the chest. Cardiomediastinal silhouette is stable. Heart is not grossly enlarged. Lungs are clear. No pleural effusion or pneumothorax. Previous nodular density seen over the left alexander g base has changed position superiorly, and appears to represent nipple shadow. Similar finding on th e right. Osseous structures appear grossly unchanged. IMPRESSION: 1. No acute cardiopulmonary abnormality. 2. NG tube tip over the mid gastric body.
[2023-10-06 20:31] LABS: Glucose,Whole Blood 81 mg/dL (70-110)
[2023-10-07 00:10] LABS: Glucose,Whole Blood 117 mg/dL (70-110)
[2023-10-07 02:14] LABS: Glucose,Whole Blood 113 mg/dL (70-110)
[2023-10-07 06:07] LABS: Glucose,Whole Blood 136 mg/dL (70-110)
[2023-10-07] MEDS: ONDANSETRON 4 MG/2 ML VIAL IVP PRN (10:05)
[2023-10-07 10:08] LABS: Glucose,Whole Blood 136 mg/dL (70-110)
[2023-10-07 11:13] LABS: Basophils % (A) 0.6 %; Eosinophils % (A) 0.6 %; HCT 32.8 % (37.2-46.3); Lymphocytes % (A) 8.7 %; MCH 27.9 pg (27.0-32.0); MCHC 30.5 g/dL (32.0-37.0); MCV 91.6 FL (80.0-97.0); Mean Platelet Volume 10.8 FL (9.5-12.2); Monocytes # (A) 1.02 X 10*3/uL (0.20-1.00); Monocytes % (A) 5.9 %; NRBC Per 100 WBC 0 X 10*3/uL (0.00-0.01); Neutrophils # (A) 14.49 X 10*3/uL (1.80-7.70); Platelet Count 359 X 10*3/uL (140-440); RBC 3.58 X 10*6/uL (4.10-5.20); RDW 14.4 % (11.5-14.5); WBC 17.25 X 10*3/uL (4.50-10.00)
[2023-10-07 11:27] LABS: Blood Urea Nitrogen 20.4 mg/dL (9.0-27.0); Calcium 8.1 mg/dL (8.7-10.3); Carbon Dioxide 25.8 mmol/L (21.6-31.8); Chloride 105 mmol/L (96-109); Glucose 140 mg/dL (70-110); Potassium 3.3 mmol/L (3.5-5.5); Sodium 142 mmol/L (135-145)
[2023-10-07 14:42] LABS: Glucose,Whole Blood 121 mg/dL (70-110)
--- NOTE | 2023-10-07 15:57 | P.GSCN ---
History of Present Illness Consult date: 10/07/23 History of present illness: CHIEF COMPLAINT: Abdominal pain HISTORY OF PRESENT ILLNESS: This is a 53-year-old female with a history of chronic abdominal pain and diabetic gastroparesis with a J-tube placement for nutrition needs. Patient reports that over the last 2 months intermittently she has been having lower abdominal pain with diarrhea. She has had episodes of vomiting and nausea. She had a CT scan abdomen pelvis completed that had reported prominent fluid-filled small bowel loops throughout with mucosal hyperemia. Prominent fluid distention of the stomach wall. Correlate for gastroenteritis. Diffuse circumferential thickening of the colon distally to the rectum. Correlate for superimposed moderate pancolitis. Patient denies any fever chills or sweats. Surgical service consulted in regards to suspected SBO. She did have elevated white count. Mildly tachycardic. KUB x-ray pending. Patient does report her current pain feels different than her chronic abdominal pain. PAST MEDICAL HISTORY: Diabetes Mellitus, Hypertension, Musculoskeletal Disorder PAST SURGICAL HISTORY: J-tube placement June 2023 MEDICATIONS: See below ALLERGIES: See below SOCIAL HISTORY: No illicit drug use. REVIEW OF SYSTEMS: CONSTITUTIONAL: Denies fever or chills. HEENT: Denies blurred vision, vision changes, or eye pain. Denies hemoptysis CARDIOVASCULAR: Denies chest pain or pressure. RESPIRATORY: No shortness of breath. GASTROINTESTINAL: See HPI for pertinent findings HEMATOLOGIC: Denies bleeding disorders. GENITOURINARY: Denies any blood in urine or increased urinary frequency. SKIN: Denies pruitis. Denies rash. PHYSICAL EXAM: VITAL SIGNS: Reviewed GENERAL: Well-developed in no acute distress. HEENT: No sclera icterus. Extraocular movements grossly intact. Moist buccal mucosa. Head is atraumatic, normocephalic. No nasal drainage. ABDOMEN: Soft. Nondistended. Tenderness to palpation across lower abdomen. PEG tube site clean dry and intact. NEUROLOGIC: Alert and oriented. Cranial nerves II through XII grossly intact. LABORATORY DATA: WBC 20 down to 17 Hgb 10 platelets 359 Sodium is 142 potassium 3.3 creatinine 0.6 Hemoglobin A1c 15.6 Lactic acid 2.1 down to 0.8 Total bilirubin 0.5 AST 34 ALT 40 alk phos 144 Lipase 251 IMAGING: CT scan abdomen pelvis prominent fluid-filled small bowel loops throughout with mucosal hyperemia. Prominent fluid distention of the stomach. Correlate for ongoing gastroenteritis. Diffuse circumferential thickening of the colon distally to the rectum. Correlate for superimposed moderate pancolitis. KUB x-ray pending ASSESSMENT: 1. Lower abdominal pain 2. Possible gastroenteritis 3. Possible colitis 4. History of diabetic gastroparesis 5. Uncontrolled diabetes mellitus PLAN: -Continue to hold tube feeds -Continue IV fluids -Continue antibiotics -Continue supportive care -Continue to observe Physician Public Health Policy Analyst note has been reviewed by physician. Signing provider agrees with the documented findings, assessment, and plan of care. Past Medical History Past Medical History: Diabetes Mellitus, Hypertension, Musculoskeletal Disorder Additional Past Medical History / Comment(s): FREQ NAUSEA, PAINFUL RT SHOULDER "FROZEN SHOULDER", NEUROPATHY PORFIRIO LEGS and hands, Blood pressures can run high History of Any Multi-Drug Resistant Organisms: ESBL, MRSA, 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;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 MDRO Source:: Urine-MRSA, VRE and ESBL Past Surgical History: Orthopedic Surgery, Tubal Ligation Additional Past Surgical History / Comment(s): rt shoulder Past Anesthesia/Blood Transfusion Reactions: No Reported Reaction Additional Past Anesthesia/Blood Transfusion Reaction / Comm: UNK FAMILY HX Past Psychological History: Anxiety Smoking Status: Current every day smoker Past Alcohol Use History: None Reported Past Drug Use History: Marijuana - Past Family History Father History Unknown: Yes Additional Family Medical History / Comment(s): unknown-adopted Mother History Unknown: Yes Additional Family Medical History / Comment(s): unknown- adopted Medications and Allergies Home Medications Medication Instructions Recorded Confirmed Type ALPRAZolam [Xanax] 0.25 mg PO BID PRN 05/12/23 10/06/23 History Atorvastatin [Lipitor] 20 mg PO DAILY 05/12/23 10/06/23 History DULoxetine HCL [Cymbalta] 30 mg PO DAILY 05/12/23 10/06/23 History Insulin Lispro [humaLOG Kwikpen] 2 unit SQ AC-TID 05/12/23 10/06/23 History Ipratropium-Albuterol Nebulize 3 ml INHALATION RT-BID 05/12/23 10/06/23 History [Duoneb 0.5 mg-3 mg/3 ml Soln] Magnesium Oxide [Mag-Ox] 400 mg PO DAILY 05/12/23 10/06/23 History Mirtazapine [Remeron] 30 mg PO HS 05/12/23 10/06/23 History Metoclopramide [Reglan] 10 mg PO ACHS 30 Days #120 tab 05/15/23 10/06/23 Rx Pantoprazole [Protonix] 40 mg PO AC-BID 30 Days #60 tab 05/21/23 10/06/23 Rx Folic Acid 1 mg PO DAILY 06/15/23 10/06/23 History Ondansetron [Zofran] 4 mg PO DAILY 30 Days #30 tab 06/26/23 10/06/23 Rx HYDROcodone/APAP 7.5-325MG [[place] 1 tab PO TID PRN 08/25/23 10/06/23 History 7.5-325] Insulin Lispro [humaLOG Kwikpen] See Protocol SQ AC-TID 09/03/23 10/06/23 History Insulin Glargine [Lantus Vial] 10 unit SQ DAILY #0 09/20/23 10/06/23 Rx Losartan-Hctz 50-12.5 mg [Hyzaar 1 tab PO DAILY 09/26/23 10/06/23 History 50-12.5] Penicillin V Potassium [Pen Vee K] 500 mg PO BID 10/06/23 10/06/23 History dexAMETHasone [Decadron Elixir] 0.5 mg PO TID 10/06/23 10/06/23 History Allergies Allergy/AdvReac Type Severity Reaction Status Date / Time fentanyl Allergy Unknown Verified 10/06/23 12:17 Surgical - Exam Vital Signs Temp Pulse Resp BP Pulse Ox 97.8 F 126 H 16 122/87 97 10/06/23 08:46 10/06/23 08:46 10/06/23 08:46 10/06/23 08:46 10/06/23 08:46 Results - Labs 10/07/23 06:41 10/07/23 06:41 Abnormal Lab Results - Last 24 Hours (Table) 10/06/23 10/06/23 10/07/23 Range/Units 14:14 15:06 00:09 WBC (4.50-10.00) X 10*3/uL RBC (4.10-5.20) X 10*6/uL Hgb (12.0-15.0) g/dL Hct (37.2-46.3) % MCHC (32.0-37.0) g/dL Neutrophils # (1.80-7.70) X 10*3/uL Monocytes # (0.20-1.00) X 10*3/uL Potassium (3.5-5.5) mmol/L BUN/Creatinine Ratio (12.00-20.00) Ratio Glucose (70-110) mg/dL POC Glucose (mg/dL) 347 H 117 H (70-110) mg/dL Hemoglobin A1c (<=6.0) % Plasma Lactic Acid Travis 2.3 H* (0.7-2.0) mmol/L Calcium (8.7-10.3) mg/dL 10/07/23 10/07/23 10/07/23 Range/Units 02:13 06:06 06:41 WBC (4.50-10.00) X 10*3/uL RBC (4.10-5.20) X 10*6/uL Hgb (12.0-15.0) g/dL Hct (37.2-46.3) % MCHC (32.0-37.0) g/dL Neutrophils # (1.80-7.70) X 10*3/uL Monocytes # (0.20-1.00) X 10*3/uL Potassium (3.5-5.5) mmol/L BUN/Creatinine Ratio (12.00-20.00) Ratio Glucose (70-110) mg/dL POC Glucose (mg/dL) 113 H 136 H (70-110) mg/dL Hemoglobin A1c 15.6 H (<=6.0) % Plasma Lactic Acid Travis (0.7-2.0) mmol/L Calcium (8.7-10.3) mg/dL 10/07/23 10/07/23 10/07/23 Range/Units 06:41 06:41 10:06 WBC 17.25 H (4.50-10.00) X 10*3/uL RBC 3.58 L (4.10-5.20) X 10*6/uL Hgb 10.0 L (12.0-15.0) g/dL Hct 32.8 L (37.2-46.3) % MCHC 30.5 L (32.0-37.0) g/dL Neutrophils # 14.49 H (1.80-7.70) X 10*3/uL Monocytes # 1.02 H (0.20-1.00) X 10*3/uL Potassium 3.3 L (3.5-5.5) mmol/L BUN/Creatinine Ratio 34.00 H (12.00-20.00) Ratio Glucose 140 H (70-110) mg/dL POC Glucose (mg/dL) 136 H (70-110) mg/dL Hemoglobin A1c (<=6.0) % Plasma Lactic Acid Travis (0.7-2.0) mmol/L Calcium 8.1 L (8.7-10.3) mg/dL Diabetes panel 10/07/23 10/07/23 Range/Units 06:41 06:41 Sodium 142 (135-145) mmol/L Potassium 3.3 L (3.5-5.5) mmol/L Chloride 105 (96-109) mmol/L Carbon Dioxide 25.8 (21.6-31.8) mmol/L BUN 20.4 (9.0-27.0) mg/dL Creatinine 0.6 (0.6-1.5) mg/dL Glucose 140 H (70-110) mg/dL Hemoglobin A1c 15.6 H (<=6.0) % Calcium 8.1 L (8.7-10.3) mg/dL Calcium panel 10/07/23 Range/Units 06:41 Calcium 8.1 L (8.7-10.3) mg/dL Pituitary panel 10/07/23 Range/Units 06:41 Sodium 142 (135-145) mmol/L Potassium 3.3 L (3.5-5.5) mmol/L Chloride 105 (96-109) mmol/L Carbon Dioxide 25.8 (21.6-31.8) mmol/L BUN 20.4 (9.0-27.0) mg/dL Creatinine 0.6 (0.6-1.5) mg/dL Glucose 140 H (70-110) mg/dL Calcium 8.1 L (8.7-10.3) mg/dL Adrenal panel 10/07/23 Range/Units 06:41 Sodium 142 (135-145) mmol/L Potassium 3.3 L (3.5-5.5) mmol/L Chloride 105 (96-109) mmol/L Carbon Dioxide 25.8 (21.6-31.8) mmol/L BUN 20.4 (9.0-27.0) mg/dL Creatinine 0.6 (0.6-1.5) mg/dL Glucose 140 H (70-110) mg/dL Calcium 8.1 L (8.7-10.3) mg/dL
[2023-10-07 18:14] LABS: Glucose,Whole Blood 106 mg/dL (70-110)
[2023-10-07] MEDS ORDERED: HYDROmorphone 0.5 MG/0.5 ML SYRINGE IM PRN (19:57)
[2023-10-07] MEDS: POTASSIUM CHLORIDE 20 MEQ in WATER FOR INJECTION 1 100ML.BAG IVPB STA (20:43)
[2023-10-07] MEDS: IPRATROPIUM-ALBUTEROL 3 ML NEB INHALATION SCH (21:43)
[2023-10-07 22:44] LABS: Glucose,Whole Blood 89 mg/dL (70-110)
[2023-10-07] MEDS: HYDROmorphone 0.5 MG/0.5 ML SYRINGE IVP PRN (22:56)
--- NOTE | 2023-10-07 23:27 | PN ---
PROGRESS NOTE SUBJECTIVE: Lesa Patterson has surgical consultation for possible pancolitis, diabetes mellitus, hypertension, musculoskeletal disorder. She has a lower abdominal pain and NG tube in for possible small fluid-filled bowel versus a bowel obstruction versus gastroenteritis, pancolitis, suspected small-bowel obstruction, elevated white count, tachycardiac. Surgery, has an NG tube and a GI consult. Continue with hold her tube feedings, IV fluids, IV antibiotics, supportive care, observe. Wait for GI consult also. A1c is going up, suspect secondary to bowel obstruction, pancolitis. PROGNOSIS: Guarded. Please see further orders. Continue NG tube. Change morphine to Dilaudid per patient's request. MMODL / IJN: [id number] /
--- NOTE | 2023-10-07 23:47 | P.CONS ---
History of Present Illness - Reason for Consult Consult date: 10/07/23 - History of Present Illness Patient is a 53-year-old female with a past medical history significant for diabetes mellitus hypertension chronic abdominal pain diabetic gastroparesis for the patient did have a G-tube placement for nutrition needs patient presenting to the hospital yesterday morning for evaluation of nausea and abdominal pain along with vomiting patient described her abdominal pain to be mild to moderate, colicky without any radiation with associated nausea vomiting and multiple episodes of diarrhea denies having any blood or mucus in the stool on presentation to the hospital patient was afebrile and no fever has been recorded subsequently patient was tachycardic but not hypotensive or hypoxic and no need for supplemental oxygen patient did have a white count of 20,000 which is down to 17.25 today creatinine has been normal liver enzymes mildly elevated patient did have a abdominal pelvis CT prominently fluid-filled small bowel loops throughout with mucosal hyperemia diffuse circumferential thickening of the colon distally to the rectum and circumferential bladder wall thickening patient has been started on ceftriaxone and Flagyl infectious was consulted for further management of antibiotic therapy Past Medical History Past Medical History: Diabetes Mellitus, Hypertension, Musculoskeletal Disorder Additional Past Medical History / Comment(s): FREQ NAUSEA, PAINFUL RT SHOULDER "FROZEN SHOULDER", NEUROPATHY PORFIRIO LEGS and hands, Blood pressures can run high History of Any Multi-Drug Resistant Organisms: ESBL, MRSA, 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;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 MDRO Source:: Urine-MRSA, VRE and ESBL Past Surgical History: Orthopedic Surgery, Tubal Ligation Additional Past Surgical History / Comment(s): rt shoulder Past Anesthesia/Blood Transfusion Reactions: No Reported Reaction Additional Past Anesthesia/Blood Transfusion Reaction / Comm: UNK FAMILY HX Past Psychological History: Anxiety Smoking Status: Current every day smoker Past Alcohol Use History: None Reported Past Drug Use History: Marijuana - Past Family History Father History Unknown: Yes Additional Family Medical History / Comment(s): unknown-adopted Mother History Unknown: Yes Additional Family Medical History / Comment(s): unknown- adopted Medications and Allergies Home Medications Medication Instructions Recorded Confirmed Type ALPRAZolam [Xanax] 0.25 mg PO BID PRN 05/12/23 10/06/23 History Atorvastatin [Lipitor] 20 mg PO DAILY 05/12/23 10/06/23 History DULoxetine HCL [Cymbalta] 30 mg PO DAILY 05/12/23 10/06/23 History Insulin Lispro [humaLOG Kwikpen] 2 unit SQ AC-TID 05/12/23 10/06/23 History Ipratropium-Albuterol Nebulize 3 ml INHALATION RT-BID 05/12/23 10/06/23 History [Duoneb 0.5 mg-3 mg/3 ml Soln] Magnesium Oxide [Mag-Ox] 400 mg PO DAILY 05/12/23 10/06/23 History Mirtazapine [Remeron] 30 mg PO HS 05/12/23 10/06/23 History Metoclopramide [Reglan] 10 mg PO ACHS 30 Days #120 tab 05/15/23 10/06/23 Rx Pantoprazole [Protonix] 40 mg PO AC-BID 30 Days #60 tab 05/21/23 10/06/23 Rx Folic Acid 1 mg PO DAILY 06/15/23 10/06/23 History Ondansetron [Zofran] 4 mg PO DAILY 30 Days #30 tab 06/26/23 10/06/23 Rx HYDROcodone/APAP 7.5-325MG [[place] 1 tab PO TID PRN 08/25/23 10/06/23 History 7.5-325] Insulin Lispro [humaLOG Kwikpen] See Protocol SQ AC-TID 09/03/23 10/06/23 History Insulin Glargine [Lantus Vial] 10 unit SQ DAILY #0 09/20/23 10/06/23 Rx Losartan-Hctz 50-12.5 mg [Hyzaar 1 tab PO DAILY 09/26/23 10/06/23 History 50-12.5] Penicillin V Potassium [Pen Vee K] 500 mg PO BID 10/06/23 10/06/23 History dexAMETHasone [Decadron Elixir] 0.5 mg PO TID 10/06/23 10/06/23 History Allergies Allergy/AdvReac Type Severity Reaction Status Date / Time fentanyl Allergy Unknown Verified 10/06/23 12:17 Physical Exam Vitals: Vital Signs Temp Pulse Pulse Pulse Resp BP BP 10/07/23 07:45 97.9 F 105 H 16 10/07/23 05:55 101 H 10/07/23 02:00 97 10/07/23 00:25 98.1 F 105 H 16 10/06/23 23:14 10/06/23 21:00 105 H 10/06/23 19:25 98.3 F 113 H 15 94/56 10/06/23 16:45 98.1 F 112 H 18 132/81 10/06/23 15:21 102 H 16 150/90 10/06/23 15:00 16 62/50 10/06/23 14:19 98.1 F 112 H 17 77/50 10/06/23 14:00 112 H 10/06/23 13:16 117 H 16 135/83 10/06/23 12:26 120 H 18 10/06/23 11:00 115/76 10/06/23 10:30 153/121 BP Pulse Ox 10/07/23 07:45 123/78 98 10/07/23 05:55 113/70 10/07/23 02:00 10/07/23 00:25 96/60 98 10/06/23 23:14 100/62 10/06/23 21:00 10/06/23 19:25 94 L 10/06/23 16:45 99 10/06/23 15:21 10/06/23 15:00 10/06/23 14:19 97 10/06/23 14:00 10/06/23 13:16 94 L 10/06/23 12:26 98 10/06/23 11:00 99 10/06/23 10:30 Intake and Output 10/06/23 10/07/23 10/07/23 22:59 06:59 14:59 Other: Voiding Method Bedside Commode # Voids 1 Results CBC & Chem 7: 10/07/23 06:41 10/07/23 06:41 Labs: Abnormal Lab Results - Last 24 Hours (Table) 10/06/23 10/06/23 10/07/23 Range/Units 14:14 15:06 00:09 POC Glucose (mg/dL) 347 H 117 H (70-110) mg/dL Plasma Lactic Acid Travis 2.3 H* (0.7-2.0) mmol/L 10/07/23 10/07/23 10/07/23 Range/Units 02:13 06:06 10:06 POC Glucose (mg/dL) 113 H 136 H 136 H (70-110) mg/dL Plasma Lactic Acid Travis (0.7-2.0) mmol/L Assessment and Plan Plan: 1patient presented to hospital with intractable nausea vomiting abdominal pain and diarrhea in this patient who did have evidence of small bowel ileus as well as evidence of colitis concerning for possible infectious etiology in this patient has been out of the hospital concern of C. difficile colitis 2-we will check a stool for C. difficile and stool culture 3-patient did have some improvement her white count keeping in mind the ileus will continue with Rocephin and Flagyl while waiting for the workup to be completed We will follow on clinical condition and cultures to further adjust medication if needed Thank you for this consultation we will follow the patient along with you Dictation was produced using [employer] dictation software. please excuse any grammatical, word or spelling errors. Time with Patient: Greater than 30
[2023-10-08 02:32] LABS: Glucose,Whole Blood 100 mg/dL (70-110)
[2023-10-08 06:49] LABS: Glucose,Whole Blood 104 mg/dL (70-110)
[2023-10-08 11:43] LABS: Basophils # (A) 0.08 X 10*3/uL (0.00-0.10); Basophils % (A) 0.8 %; Eosinophils # (A) 0.17 X 10*3/uL (0.04-0.35); Eosinophils % (A) 1.7 %; HCT 32.9 % (37.2-46.3); HGB 10.2 g/dL (12.0-15.0); Lymphocytes # (A) 1.66 X 10*3/uL (0.90-5.00); Lymphocytes % (A) 16.5 %; MCH 28.7 pg (27.0-32.0); MCV 92.4 FL (80.0-97.0); Mean Platelet Volume 10.3 FL (9.5-12.2); NRBC Per 100 WBC 0 X 10*3/uL (0.00-0.01); Neutrophils # (A) 7.53 X 10*3/uL (1.80-7.70); Neutrophils % (A) 74.7 %; Platelet Count 334 X 10*3/uL (140-440); RBC 3.56 X 10*6/uL (4.10-5.20); RDW 14.3 % (11.5-14.5); WBC 10.07 X 10*3/uL (4.50-10.00)
[2023-10-08 11:56] LABS: ALT 20 U/L (8-44); AST 25 U/L (13-35); Alkaline Phosphatase 99 U/L (41-126); Calcium 8.3 mg/dL (8.7-10.3); Carbon Dioxide 21.3 mmol/L (21.6-31.8); Chloride 105 mmol/L (96-109); Globulin 2.5 g/dL (1.6-3.3); Glucose 110 mg/dL (70-110); Potassium 3.3 mmol/L (3.5-5.5); Sodium 143 mmol/L (135-145); Total Bilirubin <0.2 mg/dL (0.3-1.2); Total Protein 5.5 g/dL (6.2-8.2)
[2023-10-08 12:26] LABS: Glucose,Whole Blood 122 mg/dL (70-110)
--- NOTE | 2023-10-08 12:37 | XR ---
EXAMINATION TYPE: XR KUB portable DATE OF EXAM: 10/07/2023 10:19 AM CLINICAL INDICATION:Female, 53 years old with history of Follow-up bowel obstruction; [facility] COMPARISON: Abdomen radiograph 04/18/2013 TECHNIQUE: One radiographic view of the abdomen was obtained. FINDINGS: The bowel gas pattern is nonspecific without dilated loops of small or large bowel. There i s no evidence for organomegaly or pneumoperitoneum. The osseous structures are intact. No abnormal calcifications are present. Fecal material and gas are demonstrated throughout the colon and rectum. IV contrast in the urinary bladder. IMPRESSION: Nonspecific bowel gas pattern without radiographic evidence for acute process.
--- NOTE | 2023-10-08 16:26 | P.PN ---
Subjective Progress Note Date: 10/08/23 CHIEF COMPLAINT: Abdominal pain HISTORY OF PRESENT ILLNESS: Surgical service following in regards to patient's abdominal pain. CT scan had reported pancolitis. Patient does report lower abdominal pain. She is having flatus. No BM. NG tube output of 500. She did have some nausea. KUB x-ray nonspecific bowel gas pattern. No acute process. Patient's tube feeds have been on hold. Afebrile. WBC is down from 17-10 Hgb 10 potassium is 3.3 PHYSICAL EXAM: VITAL SIGNS: Reviewed. GENERAL: Well-developed in no acute distress. ABDOMEN: Soft. Nondistended. Lower abdominal tenderness NEUROLOGIC: Alert and oriented. Cranial nerves II through XII grossly intact. ASSESSMENT: 1. Lower abdominal pain. Possible pancolitis on CT scan 2. History of diabetic gastroparesis 3. Hypokalemia PLAN: -Discontinue NG tube -Start clear liquid diet -Okay to resume tube feeds. Consult dietitian regarding tube feeds -Plan for colonoscopy on with Dr. Garzon -Start [facility] bowel prep tomorrow -Continue to correct potassium Physician Laborer [employer]arch [employer] note has been reviewed by physician. Signing provider agrees with the documented findings, assessment, and plan of care. Objective - Vital Signs Vital signs: Vital Signs Temp 97.8 F 10/08/23 15:00 Pulse 95 10/08/23 16:03 Resp 16 10/08/23 15:00 BP 156/93 10/08/23 15:00 Pulse Ox 98 10/08/23 15:00 FiO2 Intake & Output 10/07/23 10/08/23 10/08/23 18:59 06:59 18:59 Intake Total 1000 Output Total 900 Balance 100 Weight 34.019 kg 34.019 kg Intake: Intake, IV Titration 1000 Amount Sodium Chloride 0.9% 1, 1000 000 ml @ 125 mls/hr IV . Q8H [facility] Rx#:[id number] Output: Gastric Drainage 900 Other: Voiding Method Bedside Commode # Voids 1 2 5 - Labs CBC & Chem 7: 10/08/23 06:27 10/08/23 06:27 Labs: Abnormal Lab Results - Last 24 Hours (Table) 10/08/23 10/08/23 10/08/23 Range/Units 06:27 06:27 12:25 WBC 10.07 H (4.50-10.00) X 10*3/uL RBC 3.56 L (4.10-5.20) X 10*6/uL Hgb 10.2 L (12.0-15.0) g/dL Hct 32.9 L (37.2-46.3) % MCHC 31.0 L (32.0-37.0) g/dL Potassium 3.3 L (3.5-5.5) mmol/L Carbon Dioxide 21.3 L (21.6-31.8) mmol/L Anion Gap 16.70 H (4.00-12.00) mmol/L Creatinine 0.5 L (0.6-1.5) mg/dL BUN/Creatinine Ratio 28.00 H (12.00-20.00) Ratio POC Glucose (mg/dL) 122 H (70-110) mg/dL Calcium 8.3 L (8.7-10.3) mg/dL Total Bilirubin <0.2 L (0.3-1.2) mg/dL Total Protein 5.5 L (6.2-8.2) g/dL Albumin 3.0 L (3.8-4.9) g/dL Albumin/Globulin Ratio 1.20 L (1.60-3.17) Ratio Microbiology - Last 24 Hours (Table) 10/06/23 12:15 Blood Culture - Preliminary Blood 10/06/23 12:30 Blood Culture - Preliminary Blood
[2023-10-08 17:36] LABS: Glucose,Whole Blood 149 mg/dL (70-110)
[2023-10-08] MEDS: POTASSIUM BICARBONATE/CIT AC 20 MEQ TABLET.EFF PEJ/J-Tube ONE (17:44)
--- NOTE | 2023-10-08 23:44 | PN ---
PROGRESS NOTE SUBJECTIVE: This is a 53-year-old white female with pancolitis, admitted with nausea, and vomiting. White count is 10.07, hemoglobin is 10.2, potassium is low at 3.3. She has had a lot of NG tube drainage out overnight. Surgery saw her. Waiting for GI recommendations. Her assessment was severe dependent diabetes mellitus, uncontrolled secondary to nausea and vomiting secondary to pancolitis, diabetic gastroparesis, hypokalemia. They stopped her NG, gave her clear liquids. Consult dietitian for tube feedings. Colonoscopy on by Dr. Garzon. MariaLY bowel prep tomorrow. Replace potassium. Prognosis guarded. Continue current treatment. OBJECTIVE: LUNGS: Decreased breath sounds. CARDIOVASCULAR: S1, S2. HEMATOLOGY: Negative Homans. PSYCH: Fair mood and affect. PEG tube in place in belly. Normal bowel sounds. See further orders above. MMODL / IJN: [id number] /
[2023-10-09 00:41] LABS: Glucose,Whole Blood 243 mg/dL (70-110)
[2023-10-09 05:48] LABS: Glucose,Whole Blood 243 mg/dL (70-110)
[2023-10-09 07:51] LABS: Basophils # (A) 0.1 k/uL (0-0.2); Basophils % (A) 1 %; Eosinophils # (A) 0.2 k/uL (0-0.7); Eosinophils % (A) 3 %; HCT 33.7 % (34.0-46.0); HGB 10.4 gm/dL (11.4-16.0); Hypochromasia Slight; Lymphocytes # (A) 1.7 k/uL (1.0-4.8); Lymphocytes % (A) 25 %; MCH 27.5 pg (25.0-35.0); MCHC 30.9 g/dL (31.0-37.0); MCV 89.1 fL (80.0-100.0); Mean Platelet Volume 8.1; Monocytes # (A) 0.5 k/uL (0-1.0); Monocytes % (A) 7 %; Neutrophils # (A) 4.1 k/uL (1.3-7.7); Neutrophils % (A) 61 %; Platelet Count 329 k/uL (150-450); RBC 3.78 m/uL (3.80-5.40); RDW 14.3 % (11.5-15.5); WBC 6.7 k/uL (3.8-10.6)
[2023-10-09 08:08] LABS: ALT 20 U/L (4-34); AST 27 U/L (14-36); African American GFR (CKD) >90 (>60 ml/min/1.73 sqM); Albumin 2.4 g/dL (3.5-5.0); Albumin/Globulin Ratio 0.9; Alkaline Phosphatase 98 U/L (38-126); Anion Gap 5 mmol/L; Blood Urea Nitrogen 13 mg/dL (7-17); Calcium 7.7 mg/dL (8.4-10.2); Carbon Dioxide 24 mmol/L (22-30); Chloride 102 mmol/L (98-107); Globulin 2.6 g/dL; Glucose 243 mg/dL (74-99); Magnesium 1.7 mg/dL (1.6-2.3); Non-African American GFR(CKD) >90 (>60 ml/min/1.73 sqM); Potassium 4.2 mmol/L (3.5-5.1); Sodium 131 mmol/L (137-145); Total Bilirubin 0.2 mg/dL (0.2-1.3)
[2023-10-09] MEDS: PEG 3350 (236 GM/BTL) + LYTES 4,000 ML BOTTLE PO ONE (11:32)
[2023-10-09 12:21] LABS: Glucose,Whole Blood 248 mg/dL (70-110)
[2023-10-09] MEDS: INSULIN ASPART (NovoLOG) 100 UNIT/ML VIAL SQ SCH (12:54)
--- NOTE | 2023-10-09 16:21 | P.PN ---
Subjective Progress Note Date: 10/09/23 CHIEF COMPLAINT: Abdominal pain HISTORY OF PRESENT ILLNESS: Surgical service following in regards to patient's abdominal pain. CT scan had reported pancolitis. Patient does report lower abdominal pain. She is having flatus. She is now having diarrhea. Afebrile. Mildly tachycardic. WBC is 6.7 Hgb 10.4 platelets 329 sodium is 131 potassium 4.2 creatinine 0.45 PHYSICAL EXAM: VITAL SIGNS: Reviewed. GENERAL: Well-developed in no acute distress. ABDOMEN: Soft. Nondistended. Lower abdominal tenderness NEUROLOGIC: Alert and oriented. Cranial nerves II through XII grossly intact. ASSESSMENT: 1. Lower abdominal pain. Possible pancolitis on CT scan 2. History of diabetic gastroparesis 3. Hypokalemia PLAN: -Patient scheduled for colonoscopy tomorrow with Dr. Garzon -Hold tube feeds today -Clear liquid diet for today -Complete GoLytely bowel prep today -N.p.o. after midnight Physician Rehabilitation Attendant note has been reviewed by physician. Signing provider agrees with the documented findings, assessment, and plan of care. Objective - Vital Signs Vital signs: Vital Signs Temp 97.4 F L 10/09/23 14:36 Pulse 112 H 10/09/23 14:36 Resp 15 10/09/23 14:36 BP 170/104 10/09/23 14:36 Pulse Ox 97 10/09/23 14:36 FiO2 Intake & Output 10/08/23 10/09/23 10/09/23 18:59 06:59 18:59 Intake Total 1000 Output Total 900 Balance 100 Weight 34.019 kg 37.46 kg Intake: Intake, IV Titration 1000 Amount Sodium Chloride 0.9% 1, 1000 000 ml @ 125 mls/hr IV . Q8H [facility] Rx#:[id number] Output: Gastric Drainage 900 Other: Voiding Method Bedside Commode # Voids 5 # Bowel Movements 3 - Labs CBC & Chem 7: 10/09/23 06:21 10/09/23 06:21 Labs: Abnormal Lab Results - Last 24 Hours (Table) 10/08/23 10/09/23 10/09/23 Range/Units 17:35 00:13 00:40 RBC (3.80-5.40) m/uL Hgb (11.4-16.0) gm/dL Hct (34.0-46.0) % MCHC (31.0-37.0) g/dL Sodium (137-145) mmol/L Creatinine (0.52-1.04) mg/dL Glucose (74-99) mg/dL POC Glucose (mg/dL) 149 H 243 H (70-110) mg/dL Calcium (8.4-10.2) mg/dL Total Protein (6.3-8.2) g/dL Albumin (3.5-5.0) g/dL Stool Lactoferrin Positive A (Negative) 10/09/23 10/09/23 10/09/23 Range/Units 05:47 06:21 06:21 RBC 3.78 L (3.80-5.40) m/uL Hgb 10.4 L (11.4-16.0) gm/dL Hct 33.7 L (34.0-46.0) % MCHC 30.9 L (31.0-37.0) g/dL Sodium 131 L (137-145) mmol/L Creatinine 0.45 L (0.52-1.04) mg/dL Glucose 243 H (74-99) mg/dL POC Glucose (mg/dL) 243 H (70-110) mg/dL Calcium 7.7 L (8.4-10.2) mg/dL Total Protein 5.0 L (6.3-8.2) g/dL Albumin 2.4 L (3.5-5.0) g/dL Stool Lactoferrin (Negative) 10/09/23 Range/Units 12:20 RBC (3.80-5.40) m/uL Hgb (11.4-16.0) gm/dL Hct (34.0-46.0) % MCHC (31.0-37.0) g/dL Sodium (137-145) mmol/L Creatinine (0.52-1.04) mg/dL Glucose (74-99) mg/dL POC Glucose (mg/dL) 248 H (70-110) mg/dL Calcium (8.4-10.2) mg/dL Total Protein (6.3-8.2) g/dL Albumin (3.5-5.0) g/dL Stool Lactoferrin (Negative) Microbiology - Last 24 Hours (Table) 04/22/24 23:21 Urine Culture - Preliminary Urine,Voided Gram Neg Bacilli Group D Enterococcus 10/06/23 12:15 Blood Culture - Preliminary Blood 10/06/23 12:30 Blood Culture - Preliminary Blood
[2023-10-09 18:10] LABS: Glucose,Whole Blood 143 mg/dL (70-110)
--- NOTE | 2023-10-09 22:30 | PN ---
PROGRESS NOTE SUBJECTIVE: This is a 53-year-old white female. Says her abdominal pain is slightly better. Temperature 97.4, pulse is 104 to 112, blood pressure is 170/104, and O2 97 on room air. Labs show hemoglobin is 10.4, white count 6.7, sodium 131. Sugars are mid 200s. She has been treated for colitis, positive stool lactoferrin. Please see further recommendations of surgery. We took her NG tube out and put her on clear liquid diet, start her on tube feeds. Colonoscopy on to see what is going on. GoLYTELY will be started today, potassium replacement, etc. Prognosis is guarded. Please see further orders. MMODL / IJN: [id number] /
[2023-10-10 00:56] LABS: Glucose,Whole Blood 165 mg/dL (70-110)
[2023-10-10 05:47] LABS: Glucose,Whole Blood 180 mg/dL (70-110)
[2023-10-10 06:42] LABS: HCT 34.1 % (34.0-46.0); HGB 11.1 gm/dL (11.4-16.0); Hypochromasia Moderate; MCH 29.3 pg (25.0-35.0); MCHC 32.4 g/dL (31.0-37.0); MCV 90.4 fL (80.0-100.0); Mean Platelet Volume 7.9; Platelet Count 304 k/uL (150-450); RBC 3.78 m/uL (3.80-5.40); RDW 14.4 % (11.5-15.5)
[2023-10-10 07:30] LABS: African American GFR (CKD) >90 (>60 ml/min/1.73 sqM); Anion Gap 6 mmol/L; Blood Urea Nitrogen 5 mg/dL (7-17); Calcium 8.1 mg/dL (8.4-10.2); Carbon Dioxide 23 mmol/L (22-30); Chloride 103 mmol/L (98-107); Glucose 168 mg/dL (74-99); Non-African American GFR(CKD) >90 (>60 ml/min/1.73 sqM); Potassium 3.7 mmol/L (3.5-5.1); Sodium 132 mmol/L (137-145)
[2023-10-10] MEDS: LACTATED RINGERS 1,000 ML IV ONE (12:40)
--- NOTE | 2023-10-10 13:06 | P.OP ---
Date of Procedure: 10/10/23 Preoperative Diagnosis: colitis Postoperative Diagnosis: multiple colon polyps Rectal biopsy pathology pending Procedure(s) Performed: colonoscopy Anesthesia: MAC Surgeon: Shane Garzon Pathology: other (cecal polyp, right colon polyp, rectal biopsy) Condition: stable Disposition: PACU Description of Procedure: patient's placed on the operating table in the lateral position. She received IV sedation. Digital rectal exam was performed. there were hemorrhoids noted.There is large amount liquid stool in the colon. Flexible colonoscope was then placed patient anus passed throughout the entire colon. The ileocecal valve was visualized. There were several small polyp seen in the cecum and right colon cancer with a combination of snare and cold forcep. The lining of the mucosa was limited due to the large amount liquid stool. The transverse colon, descending colon and sigmoid colon appeared normal however the view was limited due to the poor prep. In the rectum and a biopsy of the mucosa was performed.. Scope withdrawn for patient. Hemorrhoids were noted.
[2023-10-10 13:44] LABS: Glucose,Whole Blood 130 mg/dL (70-110)
--- NOTE | 2023-10-10 14:33 | P.PN ---
Subjective Progress Note Date: 10/10/23 CHIEF COMPLAINT: Abdominal pain HISTORY OF PRESENT ILLNESS: Surgical service following in regards to patient's abdominal pain and pancolitis. Patient colonoscopy completed today. Results reported multiple colon polyps and rectal biopsy. Also noted hemorrhoids. Afebrile. Mild tachycardia. WBC 5 Hgb 11.1 PHYSICAL EXAM: VITAL SIGNS: Reviewed. GENERAL: Well-developed in no acute distress. ABDOMEN: Soft. Nondistended. NEUROLOGIC: Alert and oriented. Cranial nerves II through XII grossly intact. ASSESSMENT: 1. Lower abdominal pain. Possible pancolitis on CT scan. 2. History of diabetic gastroparesis 3. Status post colonoscopy with multiple colon polyps and rectal biopsy completed PLAN: -Patient can be discharged from surgical standpoint -Okay to resume tube feeds Physician Membership Coordinator note has been reviewed by physician. Signing provider agrees with the documented findings, assessment, and plan of care. Objective - Vital Signs Vital signs: Vital Signs Temp 98.1 F 10/10/23 07:00 Pulse 103 H 10/10/23 09:00 Resp 16 10/10/23 07:00 BP 120/80 10/10/23 07:00 Pulse Ox 98 10/10/23 07:00 FiO2 Intake & Output 10/09/23 10/10/23 10/10/23 18:59 06:59 18:59 Intake Total 400 Balance 400 Weight 37.3 kg Intake: IV 400 Other: Voiding Method Bedside Commode # Voids 1 # Bowel Movements 1 - Labs CBC & Chem 7: 10/10/23 06:01 10/10/23 06:01 Labs: Abnormal Lab Results - Last 24 Hours (Table) 10/09/23 10/09/23 10/10/23 Range/Units 00:13 18:09 00:54 RBC (3.80-5.40) m/uL Hgb (11.4-16.0) gm/dL Sodium (137-145) mmol/L BUN (7-17) mg/dL Creatinine (0.52-1.04) mg/dL Glucose (74-99) mg/dL POC Glucose (mg/dL) 143 H 165 H (70-110) mg/dL Calcium (8.4-10.2) mg/dL Stool Lactoferrin Positive A (Negative) 04/25/24 04/25/24 04/25/24 Range/Units 05:46 06:01 06:01 RBC 3.78 L (3.80-5.40) m/uL Hgb 11.1 L (11.4-16.0) gm/dL Sodium 132 L (137-145) mmol/L BUN 5 L (7-17) mg/dL Creatinine 0.33 L (0.52-1.04) mg/dL Glucose 168 H (74-99) mg/dL POC Glucose (mg/dL) 180 H (70-110) mg/dL Calcium 8.1 L (8.4-10.2) mg/dL Stool Lactoferrin (Negative) 10/10/23 Range/Units 13:43 RBC (3.80-5.40) m/uL Hgb (11.4-16.0) gm/dL Sodium (137-145) mmol/L BUN (7-17) mg/dL Creatinine (0.52-1.04) mg/dL Glucose (74-99) mg/dL POC Glucose (mg/dL) 130 H (70-110) mg/dL Calcium (8.4-10.2) mg/dL Stool Lactoferrin (Negative) Microbiology - Last 24 Hours (Table) 10/07/23 23:21 Urine Culture - Final Urine,Voided Klebsiella pneumoniae Enterococcus faecalis VRE 10/06/23 12:15 Blood Culture - Preliminary Blood 10/06/23 12:30 Blood Culture - Preliminary Blood
[2023-10-10 17:38] LABS: Glucose,Whole Blood 121 mg/dL (70-110)
[2023-10-10] MEDS: ERTAPENEM 1 GM in SODIUM CHLORIDE 0.9% 50 ML IVPB SCH (19:03)
[2023-10-10 23:24] LABS: Glucose,Whole Blood 203 mg/dL (70-110)
--- NOTE | 2023-10-11 00:34 | PN ---
PROGRESS NOTE SUBJECTIVE: She is still nauseated, does not feel right. She had a colonoscopy with multiple biopsies done today. Some mild tachycardia. White count 5, hemoglobin 11.1. OBJECTIVE: VITAL SIGNS: Stable, afebrile. CARDIOVASCULAR: S1, S2. LUNGS: Clear. GI: Soft. HEMATOLOGY: Negative for Homans. ASSESSMENT: Lower abdominal pain, possible pancolitis, status post multiple biopsies. Most of the colon was normal according to the surgical note. Diabetic, gastroparesis, insulin- dependent diabetes mellitus. Progressive nausea, vomiting. We are going to start tube feedings and advance diet and then possibly go home in the morning. Wait for biopsies. MMODL / IJN: [id number] /
[2023-10-11 05:45] LABS: Glucose,Whole Blood 177 mg/dL (70-110)
[2023-10-11 07:15] LABS: ALT 18 U/L (4-34); AST 32 U/L (14-36); African American GFR (CKD) >90 (>60 ml/min/1.73 sqM); Albumin 2.1 g/dL (3.5-5.0); Albumin/Globulin Ratio 0.8; Alkaline Phosphatase 88 U/L (38-126); Anion Gap 6 mmol/L; Blood Urea Nitrogen 3 mg/dL (7-17); Calcium 7.9 mg/dL (8.4-10.2); Carbon Dioxide 24 mmol/L (22-30); Chloride 104 mmol/L (98-107); Globulin 2.5 g/dL; Glucose 182 mg/dL (74-99); Non-African American GFR(CKD) >90 (>60 ml/min/1.73 sqM); Potassium 3.2 mmol/L (3.5-5.1); Sodium 134 mmol/L (137-145); Total Bilirubin 0.1 mg/dL (0.2-1.3); Total Protein 4.6 g/dL (6.3-8.2)
[2023-10-11 07:52] LABS: Basophils # (A) 0.1 k/uL (0-0.2); Basophils % (A) 1 %; Eosinophils # (A) 0.2 k/uL (0-0.7); Eosinophils % (A) 4 %; HCT 34.2 % (34.0-46.0); HGB 10.6 gm/dL (11.4-16.0); Lymphocytes # (A) 1.4 k/uL (1.0-4.8); Lymphocytes % (A) 27 %; MCH 27.3 pg (25.0-35.0); MCHC 31.1 g/dL (31.0-37.0); MCV 87.9 fL (80.0-100.0); Mean Platelet Volume 8.4; Monocytes # (A) 0.4 k/uL (0-1.0); Monocytes % (A) 7 %; Neutrophils # (A) 3.2 k/uL (1.3-7.7); Neutrophils % (A) 60 %; Platelet Count 338 k/uL (150-450); RBC 3.89 m/uL (3.80-5.40); RDW 14.4 % (11.5-15.5); WBC 5.4 k/uL (3.8-10.6)
[2023-10-11 12:49] LABS: Glucose,Whole Blood 259 mg/dL (70-110)
--- NOTE | 2023-10-11 13:45 | CDI ---
Documentation Clarification Form Date: 10/11/2023 From: Kandy Loera Phone: [phone] Admit Date: 10/08/2023 08:21:00 AM Patient Name: Lesa Patterson Visit Number: [id number] Discharge Date: ATTENTION: The Clinical Documentation Specialists (CDI) and [facility] Coding Staff appreciate your assistance in clarifying documentation. Please respond to the clarification below the line at the bottom and electronically sign. The CDI & [facility] Coding staff will review the response and follow-up if needed. Please note: Queries are made part of the Legal Health Record. If you have any questions, please contact the author of this message via ITS. Dr. Dell Pike: Sepsis is documented in the H&P 10/05 but is not noted in subsequent documentation. Clarification is requested. History/Risk Factors: Chronic gastroparesis, DM2, protein calorie malnutrition, esophagitis who presents with recurrent nausea, vomiting and abdominal pain Clinical Indicators: 10/05 Triage VS: 122/87, 97.8, 126, 16, 97% room air 10/05 H&P, Assessment and Plan: "Sepsis. Regards to suspicion for sepsis, patient given one-time dose of antibiotic, Rocephin, Flagyl, given blood cultures ordered infectious disease consult." 10/05-10/10 WBC: 20.1, 17.25, 10.07, 6.7, 5.0, 5.4 10/05x3, 10/06 Lactic Acid: 2.1, 2.3, 1.5, 0.8 10/06 Urine Culture: Klebsiella pneumoniae, Enterococcus faecalis 10/09 Procalcitonin: 0.04 10/05 CT Abdomen, Impression: "1. Prominent fluid filled small bowel loops throughout with mucosal hyperemia. Prominent fluid distention of the stomach as well. Correlate for ongoing gastroenteritis." Treatment: Normal Saline IV 125cc/hour start 10/05 Invanz 1gram IV daily start 10/09 Flagyl 500mg IV [id number] 10/05-10/09 Ceftriaxone 2gram IV [id number] 10/06- 10/09 Please clarify if the sepsis is: [ ] Sepsis, POA, confirmed, remains under treatment [ ] Sepsis, confirmed, resolved [ ] Sepsis ruled out [ ] Other condition, please specify [ ] Unable to determine In responding to this query, please exercise your independent professional judgment. The [facility] Coding Staff and Clinical Documentation Specialists appreciate your assistance in clarifying documentation, maintaining compliance with coding guidelines, accurately documenting patients condition and capturing severity of illness. The fact that a question is asked does not imply that any particular answer is desired or expected. Communication forms are a method of clarifying documentation and are made part of the Legal Health Record. Thank you in advance for your clarification. Last Revision: August 2020 SIRS Criteria: 2 or more of the following may indicate SIRS Temperature < 96.8F (36C) or > 101.0F (38.3C) Heart Rate > 90 bpm Respiratory Rate > 20 breaths/min or PaCO2 < 32 mmHg White Blood Cell Count > 12,000 or < 4,000 cells/mm3 or > 10% bands MTDD
[2023-10-11] MEDS ORDERED: ALPRAZolam 0.25 MG TAB PO PRN (14:56)
--- NOTE | 2023-10-11 16:18 | P.PN ---
Subjective Progress Note Date: 10/11/23 CHIEF COMPLAINT: Abdominal pain HISTORY OF PRESENT ILLNESS: Surgical service following in regards to patient's abdominal pain and pancolitis. Patient colonoscopy completed today. Results reported multiple colon polyps and rectal biopsy. Also noted hemorrhoids. Patient reports that she is tolerating regular diet. Patient refused the tube feeds to be started last night. She was afraid that that would cause pain. She is willing to have the tube feeds started this morning. Afebrile. Mild tachyca rdia. PHYSICAL EXAM: VITAL SIGNS: Reviewed. GENERAL: Well-developed in no acute distress. ABDOMEN: Soft. Nondistended. NEUROLOGIC: Alert and oriented. Cranial nerves II through XII grossly intact. ASSESSMENT: 1. Lower abdominal pain. Possible pancolitis on CT scan. Status post colonos copy with multiple colon polyps and rectal biopsy completed 2. History of diabetic gastroparesis 3. History of chronic abdominal pain PLAN: -Patient can be discharged from surgical standpoint -Patient is tolerating diet. Patient can resume her tube feeds. Physician Riveter Portable Machine note has been reviewed by physician. Signing provider agrees with the documented findings, assessment, and plan of care. Objective - Vital Signs Vital signs: Vital Signs Temp 98 F 10/11/23 14:00 Pulse 119 H 10/11/23 14:00 Resp 16 10/11/23 14:00 BP 153/95 10/11/23 14:00 Pulse Ox 97 10/11/23 14:00 FiO2 Intake & Output 10/10/23 10/11/23 10/11/23 18:59 06:59 18:59 Intake Total 400 118 Balance 400 118 Weight 38.3 kg Intake: IV 400 Oral 118 Other: Voiding Method Bedside Commode Bedside Commode # Voids 1 1 # Bowel Movements 1 - Labs CBC & Chem 7: 10/11/23 06:21 10/11/23 06:21 Labs: Abnormal Lab Results - Last 24 Hours (Table) 10/10/23 10/10/23 10/11/23 Range/Units 17:36 23:22 05:44 Hgb (11.4-16.0) gm/dL Sodium (137-145) mmol/L Potassium (3.5-5.1) mmol/L BUN (7-17) mg/dL Glucose (74-99) mg/dL POC Glucose (mg/dL) 121 H 203 H 177 H (70-110) mg/dL Calcium (8.4-10.2) mg/dL Total Bilirubin (0.2-1.3) mg/dL Total Protein (6.3-8.2) g/dL Albumin (3.5-5.0) g/dL 10/11/23 10/11/23 10/11/23 Range/Units 06:21 06:21 12:38 Hgb 10.6 L (11.4-16.0) gm/dL Sodium 134 L (137-145) mmol/L Potassium 3.2 L (3.5-5.1) mmol/L BUN 3 L (7-17) mg/dL Glucose 182 H (74-99) mg/dL POC Glucose (mg/dL) 259 H (70-110) mg/dL Calcium 7.9 L (8.4-10.2) mg/dL Total Bilirubin 0.1 L (0.2-1.3) mg/dL Total Protein 4.6 L (6.3-8.2) g/dL Albumin 2.1 L (3.5-5.0) g/dL Microbiology - Last 24 Hours (Table) 10/09/23 00:13 Stool Culture - Preliminary Stool 10/07/23 23:21 Urine Culture - Final Urine,Voided Klebsiella pneumoniae Enterococcus faecalis VRE
--- NOTE | 2023-10-11 16:37 | P.PN ---
Subjective Progress Note Date: 10/08/23 Principal diagnosis: Reason for follow-up is colitis and cystitis Patient is a 53-year-old female with a past medical history significant for diabetes mellitus hypertension chronic abdominal pain diabetic gastroparesis for the patient did have a G-tube placement for nutrition needs patient presenting to the hospital for evaluation of nausea vomiting and abdominal pain along with diarrhea CT abdominal pelvis suspicious for ileus and there was concern for colitis as well as cystitis. On today's evaluation that is 10/08/2023, patient has been afebrile, patient is breathing comfortably and is currently on room air, patient denies having any significant cough no chest pain shortness of breath, patient did complain of having nausea did have the NG still complaining of abdominal pain and diarrhea. Patient white count is down to 10.07, creatinine 0.5 Objective - Vital Signs Vital signs: Vital Signs Temp 97.8 F 10/08/23 15:00 Pulse 95 10/08/23 16:03 Resp 16 10/08/23 15:00 BP 156/93 10/08/23 15:00 Pulse Ox 98 10/08/23 15:00 FiO2 Intake & Output 10/07/23 10/08/23 10/08/23 18:59 06:59 18:59 Intake Total 1000 Output Total 900 Balance 100 Weight 34.019 kg 34.019 kg Intake: Intake, IV Titration 1000 Amount Sodium Chloride 0.9% 1, 1000 000 ml @ 125 mls/hr IV . Q8H [facility] Rx#:[id number] Output: Gastric Drainage 900 Other: Voiding Method Bedside Commode # Voids 1 2 5 - Exam GENERAL DESCRIPTION: Middle-aged female lying in bed in no distress RESPIRATORY SYSTEM: Unlabored breathing , decreased breath sounds at bases HEART: S1 S2 regular rate and rhythm , ABDOMEN: Soft , mild tenderness EXTREMITIES: No edema feet - Labs CBC & Chem 7: 10/11/23 06:21 10/11/23 06:21 Labs: Abnormal Lab Results - Last 24 Hours (Table) 10/08/23 10/08/23 10/08/23 Range/Units 06:27 06:27 12:25 WBC 10.07 H (4.50-10.00) X 10*3/uL RBC 3.56 L (4.10-5.20) X 10*6/uL Hgb 10.2 L (12.0-15.0) g/dL Hct 32.9 L (37.2-46.3) % MCHC 31.0 L (32.0-37.0) g/dL Potassium 3.3 L (3.5-5.5) mmol/L Carbon Dioxide 21.3 L (21.6-31.8) mmol/L Anion Gap 16.70 H (4.00-12.00) mmol/L Creatinine 0.5 L (0.6-1.5) mg/dL BUN/Creatinine Ratio 28.00 H (12.00-20.00) Ratio POC Glucose (mg/dL) 122 H (70-110) mg/dL Calcium 8.3 L (8.7-10.3) mg/dL Total Bilirubin <0.2 L (0.3-1.2) mg/dL Total Protein 5.5 L (6.2-8.2) g/dL Albumin 3.0 L (3.8-4.9) g/dL Albumin/Globulin Ratio 1.20 L (1.60-3.17) Ratio Microbiology - Last 24 Hours (Table) 10/06/23 12:15 Blood Culture - Preliminary Blood 10/06/23 12:30 Blood Culture - Preliminary Blood Assessment and Plan (1) Colitis Current Visit: Yes Status: Acute Code(s): K52.9 - NONINFECTIVE GASTROENTERITIS AND COLITIS, UNSPECIFIED SNOMED Code(s): 78864786 (2) Cystitis Current Visit: Yes Status: Acute Code(s): N30.90 - CYSTITIS, UNSPECIFIED WITHOUT HEMATURIA SNOMED Code(s): 79581291 Plan: 1patient presented to hospital with intractable nausea vomiting abdominal pain and diarrhea in this patient who did have evidence of small bowel ileus as well as evidence of colitis concerning for possible infectious etiology in this patient has been out of the hospital concern of C. difficile colitis 2-we w currently waiting for stool for C. difficile and stool culture 3-patient did have some improvement her white count is trending down, patient to continue with Rocephin and Flagyl while waiting for the workup to be completed Dictation was produced using [employer] dictation software. please excuse any grammatical, word or spelling errors. Time with Patient: Less than 30
--- NOTE | 2023-10-11 16:38 | P.PN ---
Subjective Progress Note Date: 10/09/23 Principal diagnosis: Reason for follow-up is colitis and cystitis Patient is a 53-year-old female with a past medical history significant for diabetes mellitus hypertension chronic abdominal pain diabetic gastroparesis for the patient did have a G-tube placement for nutrition needs patient presenting to the hospital for evaluation of nausea vomiting and abdominal pain along with diarrhea CT abdominal pelvis suspicious for ileus and there was concern for colitis as well as cystitis. On today's evaluation that is10/09/2023,the patient denies any fever or any chills, patient is breathing comfortably on room air, the patient denies chest pain shortness of breath and no significant cough, patient currently complains of abdominal pain some nausea but no vomiting NG has been discontinued still complaining of diarrhea Patient stool for C. difficile is negative white count of 6.7 creatinine 0.45 Objective - Vital Signs Vital signs: Vital Signs Temp 97.6 F 10/09/23 07:45 Pulse 111 H 10/09/23 12:04 Resp 17 10/09/23 07:45 BP 168/99 10/09/23 07:45 Pulse Ox 99 10/09/23 07:45 FiO2 Intake & Output 10/08/23 10/09/23 10/09/23 18:59 06:59 18:59 Intake Total 1000 Output Total 900 Balance 100 Weight 34.019 kg 37.46 kg Intake: Intake, IV Titration 1000 Amount Sodium Chloride 0.9% 1, 1000 000 ml @ 125 mls/hr IV . Q8H [facility] Rx#:[id number] Output: Gastric Drainage 900 Other: Voiding Method Bedside Commode # Voids 5 # Bowel Movements 3 - Exam GENERAL DESCRIPTION: Middle-aged female lying in bed in no distress RESPIRATORY SYSTEM: Unlabored breathing , decreased breath sounds at bases HEART: S1 S2 regular rate and rhythm , ABDOMEN: Soft , mild tenderness EXTREMITIES: No edema feet - Labs CBC & Chem 7: 10/11/23 06:21 10/11/23 06:21 Labs: Abnormal Lab Results - Last 24 Hours (Table) 10/08/23 10/08/23 10/09/23 Range/Units 12:25 17:35 00:40 RBC (3.80-5.40) m/uL Hgb (11.4-16.0) gm/dL Hct (34.0-46.0) % MCHC (31.0-37.0) g/dL Sodium (137-145) mmol/L Creatinine (0.52-1.04) mg/dL Glucose (74-99) mg/dL POC Glucose (mg/dL) 122 H 149 H 243 H (70-110) mg/dL Calcium (8.4-10.2) mg/dL Total Protein (6.3-8.2) g/dL Albumin (3.5-5.0) g/dL 10/09/23 10/09/23 10/09/23 Range/Units 05:47 06:21 06:21 RBC 3.78 L (3.80-5.40) m/uL Hgb 10.4 L (11.4-16.0) gm/dL Hct 33.7 L (34.0-46.0) % MCHC 30.9 L (31.0-37.0) g/dL Sodium 131 L (137-145) mmol/L Creatinine 0.45 L (0.52-1.04) mg/dL Glucose 243 H (74-99) mg/dL POC Glucose (mg/dL) 243 H (70-110) mg/dL Calcium 7.7 L (8.4-10.2) mg/dL Total Protein 5.0 L (6.3-8.2) g/dL Albumin 2.4 L (3.5-5.0) g/dL Microbiology - Last 24 Hours (Table) 10/06/23 12:15 Blood Culture - Preliminary Blood 10/06/23 12:30 Blood Culture - Preliminary Blood Assessment and Plan (1) Colitis Current Visit: Yes Status: Acute Code(s): K52.9 - NONINFECTIVE GASTROENTERITIS AND COLITIS, UNSPECIFIED SNOMED Code(s): 19818499 (2) Cystitis Current Visit: Yes Status: Acute Code(s): N30.90 - CYSTITIS, UNSPECIFIED WITHOUT HEMATURIA SNOMED Code(s): 35912911 Plan: 1patient presented to hospital with intractable nausea vomiting abdominal pain and diarrhea in this patient who did have evidence of small bowel ileus as well as evidence of colitis concerning for possible infectious etiology in this patient has been out of the hospital concern of C. difficile colitis 2-patient stool for C. difficile is negative stool culture currently pending 3-patient did have resolution of her vomiting, patient white count has improved patient to continue with Rocephin and Flagyl while waiting for the culture to finalize Dictation was produced using [employer] dictation software. please excuse any grammatical, word or spelling errors. Time with Patient: Less than 30
--- NOTE | 2023-10-11 16:40 | P.PN ---
Subjective Progress Note Date: 10/10/23 Principal diagnosis: Reason for follow-up is colitis and cystitis Patient is a 53-year-old female with a past medical history significant for diabetes mellitus hypertension chronic abdominal pain diabetic gastroparesis for the patient did have a G-tube placement for nutrition needs patient presenting to the hospital for evaluation of nausea vomiting and abdominal pain along with diarrhea CT abdominal pelvis suspicious for ileus and there was concern for colitis as well as cystitis.Patient is status post colonoscopy complicated by general surgery evidence of colitis and poor prep biopsies obtained on 10/10/2023 On today's evaluation that is 10/10/2023,the patient remains to be afebrile, patient is on room air not requiring supplemental oxygen and denies any shortness of breath no chest pain or cough.Patient still complaining of some nausea but no vomiting NG has been discontinued still complaining of abdominal pain diarrhea has stopped/resolved. Patient white count is 5.0, creatinine 0.33, urine culture currently Objective - Vital Signs Vital signs: Vital Signs Temp 97.9 F 10/10/23 14:49 Pulse 106 H 10/10/23 14:49 Resp 16 10/10/23 14:49 BP 165/94 10/10/23 14:49 Pulse Ox 98 10/10/23 14:49 FiO2 Intake & Output 10/09/23 10/10/23 10/10/23 18:59 06:59 18:59 Intake Total 400 Balance 400 Weight 37.3 kg Intake: IV 400 Other: Voiding Method Bedside Commode # Voids 1 # Bowel Movements 1 - Exam GENERAL DESCRIPTION: Middle-aged female lying in bed in no distress RESPIRATORY SYSTEM: Unlabored breathing , decreased breath sounds at bases HEART: S1 S2 regular rate and rhythm , ABDOMEN: Soft , mild tenderness EXTREMITIES: No edema feet - Labs CBC & Chem 7: 10/11/23 06:21 10/11/23 06:21 Labs: Abnormal Lab Results - Last 24 Hours (Table) 10/10/23 10/10/23 10/10/23 Range/Units 00:54 05:46 06:01 RBC 3.78 L (3.80-5.40) m/uL Hgb 11.1 L (11.4-16.0) gm/dL Sodium (137-145) mmol/L BUN (7-17) mg/dL Creatinine (0.52-1.04) mg/dL Glucose (74-99) mg/dL POC Glucose (mg/dL) 165 H 180 H (70-110) mg/dL Calcium (8.4-10.2) mg/dL 10/10/23 10/10/23 10/10/23 Range/Units 06:01 13:43 17:36 RBC (3.80-5.40) m/uL Hgb (11.4-16.0) gm/dL Sodium 132 L (137-145) mmol/L BUN 5 L (7-17) mg/dL Creatinine 0.33 L (0.52-1.04) mg/dL Glucose 168 H (74-99) mg/dL POC Glucose (mg/dL) 130 H 121 H (70-110) mg/dL Calcium 8.1 L (8.4-10.2) mg/dL Microbiology - Last 24 Hours (Table) 10/07/23 23:21 Urine Culture - Final Urine,Voided Klebsiella pneumoniae Enterococcus faecalis VRE 10/06/23 12:15 Blood Culture - Preliminary Blood 10/06/23 12:30 Blood Culture - Preliminary Blood Assessment and Plan (1) VRE (vancomycin resistant enterococcus) culture positive Current Visit: Yes Status: Acute Code(s): Z22.39 - CARRIER OF OTHER SPECIFIED BACTERIAL DISEASES SNOMED Code(s): 602832815 (2) Colitis Current Visit: Yes Status: Acute Code(s): K52.9 - NONINFECTIVE GASTROENTERITIS AND COLITIS, UNSPECIFIED SNOMED Code(s): 25277089 (3) Cystitis Current Visit: Yes Status: Acute Code(s): N30.90 - CYSTITIS, UNSPECIFIED WITHOUT HEMATURIA SNOMED Code(s): 34723326 (4) Infection with ESBL Klebsiella oxytoca Current Visit: Yes Status: Acute Code(s): A49.8 - OTHER BACTERIAL INFECTIONS OF UNSPECIFIED SITE; Z16.12 - EXTENDED SPECTRUM BETA LACTAMASE (ESBL) RESISTANCE SNOMED Code(s): 7052529253 Plan: 1patient presented to hospital with intractable nausea vomiting abdominal pain and diarrhea in this patient who did have evidence of small bowel ileus as well as evidence of colitis concerning for possible infectious etiology in this patient has been out of the hospital concern of C. difficile colitis 2-patient stool for C. difficile is negative stool culture currently pending 3-patient urine is currently growing ESBL Klebsiella and VRE that is penicillin sensitive we will discontinue Rocephin and Flagyl start the patient on Invanz Dictation was produced using [employer] software. please excuse any grammatical, word or spelling errors. Time with Patient: Less than 30
--- NOTE | 2023-10-11 16:41 | P.PN ---
Subjective Progress Note Date: 10/11/23 Principal diagnosis: Reason for follow-up is colitis and cystitis Patient is a 53-year-old female with a past medical history significant for diabetes mellitus hypertension chronic abdominal pain diabetic gastroparesis for the patient did have a G-tube placement for nutrition needs patient presenting to the hospital for evaluation of nausea vomiting and abdominal pain along with diarrhea CT abdominal pelvis suspicious for ileus and there was concern for colitis as well as cystitis.Patient is status post colonoscopy complicated by general surgery evidence of colitis and poor prep biopsies obtained on 10/10/2023 On today's evaluation that is 10/11/2023, the patient continues to be afebrile, the patient is on room air and breathing comfortably, the Pt denies having any chest pain or cough, the patient did complain of abdominal pain and nausea but no further vomiting and diarrhea has stopped. Stool cultures pending the patient white count is 5.4, creatinine 0.58 Objective - Vital Signs Vital signs: Vital Signs Temp 97.9 F 10/11/23 07:39 Pulse 103 H 10/11/23 08:29 Resp 17 10/11/23 08:00 BP 144/88 10/11/23 07:39 Pulse Ox 98 10/11/23 07:39 FiO2 Intake & Output 10/10/23 10/11/23 10/11/23 18:59 06:59 18:59 Intake Total 400 Balance 400 Weight 38.3 kg Intake: IV 400 Other: Voiding Method Bedside Commode Bedside Commode # Voids 1 1 # Bowel Movements 1 - Exam GENERAL DESCRIPTION: Middle-aged female lying in bed in no distress RESPIRATORY SYSTEM: Unlabored breathing , decreased breath sounds at bases HEART: S1 S2 regular rate and rhythm , ABDOMEN: Soft , mild tenderness EXTREMITIES: No edema feet - Labs CBC & Chem 7: 10/11/23 06:21 10/11/23 06:21 Labs: Abnormal Lab Results - Last 24 Hours (Table) 10/10/23 10/10/23 10/10/23 Range/Units 13:43 17:36 23:22 Hgb (11.4-16.0) gm/dL Sodium (137-145) mmol/L Potassium (3.5-5.1) mmol/L BUN (7-17) mg/dL Glucose (74-99) mg/dL POC Glucose (mg/dL) 130 H 121 H 203 H (70-110) mg/dL Calcium (8.4-10.2) mg/dL Total Bilirubin (0.2-1.3) mg/dL Total Protein (6.3-8.2) g/dL Albumin (3.5-5.0) g/dL 10/11/23 10/11/23 10/11/23 Range/Units 05:44 06:21 06:21 Hgb 10.6 L (11.4-16.0) gm/dL Sodium 134 L (137-145) mmol/L Potassium 3.2 L (3.5-5.1) mmol/L BUN 3 L (7-17) mg/dL Glucose 182 H (74-99) mg/dL POC Glucose (mg/dL) 177 H (70-110) mg/dL Calcium 7.9 L (8.4-10.2) mg/dL Total Bilirubin 0.1 L (0.2-1.3) mg/dL Total Protein 4.6 L (6.3-8.2) g/dL Albumin 2.1 L (3.5-5.0) g/dL 10/11/23 Range/Units 12:38 Hgb (11.4-16.0) gm/dL Sodium (137-145) mmol/L Potassium (3.5-5.1) mmol/L BUN (7-17) mg/dL Glucose (74-99) mg/dL POC Glucose (mg/dL) 259 H (70-110) mg/dL Calcium (8.4-10.2) mg/dL Total Bilirubin (0.2-1.3) mg/dL Total Protein (6.3-8.2) g/dL Albumin (3.5-5.0) g/dL Microbiology - Last 24 Hours (Table) 10/09/23 00:13 Stool Culture - Preliminary Stool 10/07/23 23:21 Urine Culture - Final Urine,Voided Klebsiella pneumoniae Enterococcus faecalis VRE Assessment and Plan (1) Colitis Current Visit: Yes Status: Acute Code(s): K52.9 - NONINFECTIVE GASTROENTERITIS AND COLITIS, UNSPECIFIED SNOMED Code(s): 40327792 (2) Cystitis Current Visit: Yes Status: Acute Code(s): N30.90 - CYSTITIS, UNSPECIFIED WITHOUT HEMATURIA SNOMED Code(s): 81241211 (3) Infection with ESBL Klebsiella oxytoca Current Visit: Yes Status: Acute Code(s): A49.8 - OTHER BACTERIAL INFECTIONS OF UNSPECIFIED SITE; Z16.12 - EXTENDED SPECTRUM BETA LACTAMASE (ESBL) RESISTANCE SNOMED Code(s): 9275897774 (4) VRE (vancomycin resistant enterococcus) culture positive Current Visit: Yes Status: Acute Code(s): Z22.39 - CARRIER OF OTHER SPECIFIED BACTERIAL DISEASES SNOMED Code(s): 501852626 Plan: 1patient presented to hospital with intractable nausea vomiting abdominal pain and diarrhea in this patient who did have evidence of small bowel ileus as well as evidence of colitis concerning for possible infectious etiology in this patient has been out of the hospital concern of C. difficile colitis 2-patient stool for C. difficile is negative stool culture currently pending 3-patient urine is currently growing ESBL Klebsiella and VRE that is penicillin sensitive 4-patient to get a midline and plan is for a 10-day course of IV Invanz and monitor clinical course closely Dictation was produced using [employer] dictation software. please excuse any grammatical, word or spelling errors. Time with Patient: Less than 30
[2023-10-11 17:55] LABS: Glucose,Whole Blood 215 mg/dL (70-110)
[2023-10-11] MEDS: INSULIN ASPART (NovoLOG) 100 UNIT/ML VIAL SQ SCH (18:05)
[2023-10-11] MEDS: PANTOPRAZOLE 40 MG TABLET PO SCH (18:05)
[2023-10-11] MEDS: METOCLOPRAMIDE 10 MG TAB PO SCH (18:05)
[2023-10-11] MEDS: IPRATROPIUM-ALBUTEROL 3 ML NEB INHALATION SCH (18:16)
[2023-10-11] MEDS: MIRTAZAPINE 15 MG TAB PO SCH (20:11)
[2023-10-11] MEDS ORDERED: PENICILLIN V POTASSIUM 500 MG PO SCH (21:00)
--- NOTE | 2023-10-12 00:25 | PN ---
PROGRESS NOTE SUBJECTIVE: This is a 53-year-old white female, insulin-dependent diabetes mellitus. Found to have drug-resistant UTI, only susceptible to IV antibiotics. Dr. Brunson recommended 7 days of IV antibiotics which were ordered. She is on ertapenem 1 g IV piggyback daily. She appears to be doing better. Pulse 100 to 109, temperature 97 to 98, blood pressure 140s to 150s over 95, O2 is 97 on room air, and respiratory rate is 16 to 18. ASSESSMENT: Drug-resistant UTI. Probable colitis, resolving after EGD, waiting for biopsies. She has esophageal dysmotility due to gastroparesis, severe malnutrition for which she is on PEG tube feedings. PROGNOSIS: Guarded. Remain on IV antibiotics for about 7 days. MMODL / IJN: [id number] /
[2023-10-12 00:27] LABS: Glucose,Whole Blood 238 mg/dL (70-110)
[2023-10-12 05:25] LABS: Glucose,Whole Blood 268 mg/dL (70-110)
[2023-10-12] MEDS: INSULIN DETEMIR (LEVEMIR) 100 UNIT/ML SYR SQ SCH (06:30)
[2023-10-12] MEDS: FOLIC ACID 1 MG TAB PO SCH (08:26)
[2023-10-12] MEDS: MAGNESIUM OXIDE 400 MG TAB PO SCH (08:26)
[2023-10-12] MEDS: ONDANSETRON 4 MG TAB PO SCH (08:26)
[2023-10-12] MEDS: ATORVASTATIN 20 MG TAB PO SCH (08:26)
[2023-10-12] MEDS: LOSARTAN-HCTZ 50-12.5 MG 1 EACH TAB PO SCH (08:27)
[2023-10-12] MEDS: DULoxetine HCL 30 MG CAPSULE.DR PO SCH (11:22)
[2023-10-12 12:38] LABS: Glucose,Whole Blood 184 mg/dL (70-110)
--- NOTE | 2023-10-12 14:25 | P.PN ---
Subjective Progress Note Date: 10/12/23 Patient is status post colonoscopy with biopsies including polyp removal. She is tolerating tube feeds this morning. She is tolerating diet. Patient wants to stay in the hospital due to generalized pain. No reports of blood in stools. She is having bowel movement since her colonoscopy. She is underweight and receiving to tube feedings. Abdomen: No peritonitis. Plan: 1. Diet as tolerated. 2. Stable for discharge from a surgical standpoint when medically stable Objective - Vital Signs Vital signs: Vital Signs Temp 98.2 F 10/12/23 07:50 Pulse 113 H 10/12/23 07:50 Resp 15 10/12/23 07:50 BP 120/74 10/12/23 07:50 Pulse Ox 97 10/12/23 07:50 FiO2 Intake & Output 10/11/23 10/12/23 10/12/23 18:59 06:59 18:59 Intake Total 118 40 Output Total 4 Balance 114 40 Weight 38.3 kg 39.2 kg Intake: Oral 118 Tube Feeding 40 Output: Urine 4 Other: Voiding Method Bedside Commode Bedside Commode # Voids 2 # Bowel Movements 2 - Labs CBC & Chem 7: 10/11/23 06:21 10/11/23 06:21 Labs: Abnormal Lab Results - Last 24 Hours (Table) 10/11/23 10/12/23 10/12/23 Range/Units 17:54 00:26 05:23 POC Glucose (mg/dL) 215 H 238 H 268 H (70-110) mg/dL 10/12/23 Range/Units 12:37 POC Glucose (mg/dL) 184 H (70-110) mg/dL Microbiology - Last 24 Hours (Table) 10/09/23 00:13 Stool Culture - Final Stool 10/06/23 12:15 Blood Culture - Final Blood 10/06/23 12:30 Blood Culture - Final Blood
[2023-10-12 18:13] LABS: Glucose,Whole Blood 77 mg/dL (70-110)
[2023-10-13 00:12] LABS: Glucose,Whole Blood 204 mg/dL (70-110)
[2023-10-13 06:27] LABS: Glucose,Whole Blood 220 mg/dL (70-110)
[2023-10-13 12:35] LABS: Glucose,Whole Blood 107 mg/dL (70-110)
--- NOTE | 2023-10-13 12:37 | PN ---
PROGRESS NOTE Sepsis confirmed. MMODL / IJN: [id number] /
[2023-10-13] MEDS: SCOPOLAMINE 1 MG/72 HR PATCH TRANSDERM SCH (13:03)
--- NOTE | 2023-10-13 13:27 | P.PN ---
Subjective Progress Note Date: 10/13/23 the patient stay well. She denies any significant abdominal pain. On exam vital signs appear stable. Abdomen soft. Status post colonoscopy with with removal of colon polyps. Patient appears to be stable. She will be discharged home per the medical service. Objective - Vital Signs Vital signs: Vital Signs Temp 97.8 F 10/13/23 08:00 Pulse 111 H 10/13/23 08:00 Resp 15 10/13/23 08:00 BP 158/104 10/13/23 08:00 Pulse Ox 99 10/13/23 08:00 FiO2 Intake & Output 10/12/23 10/13/23 10/13/23 18:59 06:59 18:59 Intake Total 708 118 Balance 708 118 Weight 38.6 kg Intake: Oral 708 118 Other: Voiding Method Bedside Commode # Voids 4 # Bowel Movements 4 2 - Labs CBC & Chem 7: 10/11/23 06:21 10/11/23 06:21 Labs: Abnormal Lab Results - Last 24 Hours (Table) 10/13/23 10/13/23 Range/Units 00:10 06:25 POC Glucose (mg/dL) 204 H 220 H (70-110) mg/dL
--- NOTE | 2023-10-13 16:52 | P.PN ---
Subjective Progress Note Date: 10/13/23 Principal diagnosis: Reason for follow-up is colitis and cystitis Patient is a 53-year-old female with a past medical history significant for diabetes mellitus hypertension chronic abdominal pain diabetic gastroparesis for the patient did have a G-tube placement for nutrition needs patient presenting to the hospital for evaluation of nausea vomiting and abdominal pain along with diarrhea CT abdominal pelvis suspicious for ileus and there was concern for colitis as well as cystitis.Patient is status post colonoscopy complicated by general surgery evidence of colitis and poor prep biopsies obtained on 10/10/2023 On today's evaluation that is 10/13/2023, patient has been afebrile, patient is breathing comfortably and is currently on room air, patient denies having any significant cough no chest pain shortness of breath, patient has been complaining of nausea but no further vomiting abdominal pain and diarrhea slightly decreased. No new labs has been obtained today Objective - Vital Signs Vital signs: Vital Signs Temp 98.0 F 10/13/23 14:15 Pulse 118 H 10/13/23 14:15 Resp 16 10/13/23 14:15 BP 129/80 10/13/23 14:15 Pulse Ox 99 10/13/23 14:15 FiO2 Intake & Output 10/12/23 10/13/23 10/13/23 18:59 06:59 18:59 Intake Total 708 708 Balance 708 708 Weight 38.6 kg Intake: Oral 708 708 Other: Voiding Method Bedside Commode # Voids 4 # Bowel Movements 4 2 - Exam GENERAL DESCRIPTION: Middle-aged female lying in bed in no distress RESPIRATORY SYSTEM: Unlabored breathing , decreased breath sounds at bases HEART: S1 S2 regular rate and rhythm , ABDOMEN: Soft , mild tenderness EXTREMITIES: No edema feet - Labs CBC & Chem 7: 10/11/23 06:21 10/11/23 06:21 Labs: Abnormal Lab Results - Last 24 Hours (Table) 10/13/23 10/13/23 Range/Units 00:10 06:25 POC Glucose (mg/dL) 204 H 220 H (70-110) mg/dL Assessment and Plan (1) Colitis Current Visit: Yes Status: Acute Code(s): K52.9 - NONINFECTIVE G ASTROENTERITIS AND COLITIS, UNSPECIFIED SNOMED Code(s): 87065796 (2) Cystitis Current Visit: Yes Status: Acute Code(s): N30.90 - CYSTITIS, UNSPECIFIED WITHOUT HEMATURIA SNOMED Code(s): 89827313 (3) Infection with ESBL Klebsiella oxytoca Current Visit: Yes Status: Acute Code(s): A49.8 - OTHER BACTERIAL INFECTIONS OF UNSPECIFIED SITE; Z16.12 - EXTENDED SPECTRUM BETA LACTAMASE (ESBL) RESISTANCE SNOMED Code(s): 0523417612 (4) VRE (vancomycin resistant enterococcus) culture positive Current Visit: Yes Status: Acute Code(s): Z22.39 - CARRIER OF OTHER SPECIFIED BACTERIAL DISEASES SNOMED Code(s): 233345818 Plan: 1patient presented to hospital with intractable nausea vomiting abdominal pain and diarrhea in this patient who did have evidence of small bowel ileus as well as evidence of colitis concerning for possible infectious etiology in this patient has been out of the hospital concern of C. difficile colitis 2-patient stool for C. difficile is negative stool culture currently pending 3-patient urine is currently growing ESBL Klebsiella and VRE that is penicillin sensitive 4-patient currently covered with 5to1, plan is to continue for about a week on discharge Dictation was produced using [employer] software. please excuse any grammatical, word or spelling errors.
--- NOTE | 2023-10-13 16:52 | P.PN ---
Subjective Progress Note Date: 10/12/23 Principal diagnosis: Reason for follow-up is colitis and cystitis Patient is a 53-year-old female with a past medical history significant for diabetes mellitus hypertension chronic abdominal pain diabetic gastroparesis for the patient did have a G-tube placement for nutrition needs patient presenting to the hospital for evaluation of nausea vomiting and abdominal pain along with diarrhea CT abdominal pelvis suspicious for ileus and there was concern for colitis as well as cystitis.Patient is status post colonoscopy complicated by general surgery evidence of colitis and poor prep biopsies obtained on 10/10/2023 On today's evaluation that is 10/12/2023, Patient is afebrile patient is currently on room air and denies having any shortness of breath, the patient denies any chest pain or cough, the patient still complain of some nausea but no vomiting abdominal pain mildly decreased still have diarrhea but no worsening. No new labs has been obtained today Objective - Vital Signs Vital signs: Vital Signs Temp 98.2 F 10/12/23 07:50 Pulse 113 H 10/12/23 07:50 Resp 15 10/12/23 07:50 BP 120/74 10/12/23 07:50 Pulse Ox 97 10/12/23 07:50 FiO2 Intake & Output 10/11/23 10/12/23 10/12/23 18:59 06:59 18:59 Intake Total 118 40 Output Total 4 Balance 114 40 Weight 38.3 kg 39.2 kg Intake: Oral 118 Tube Feeding 40 Output: Urine 4 Other: Voiding Method Bedside Commode Bedside Commode # Voids 2 # Bowel Movements 2 - Exam GENERAL DESCRIPTION: Middle-aged female lying in bed in no distress RESPIRATORY SYSTEM: Unlabored breathing , decreased breath sounds at bases HEART: S1 S2 regular rate and rhythm , ABDOMEN: Soft , mild tenderness EXTREMITIES: No edema feet - Labs CBC & Chem 7: 10/11/23 06:21 10/11/23 06:21 Labs: Abnormal Lab Results - Last 24 Hours (Table) 10/11/23 10/11/23 10/12/23 Range/Units 12:38 17:54 00:26 POC Glucose (mg/dL) 259 H 215 H 238 H (70-110) mg/dL 10/12/23 Range/Units 05:23 POC Glucose (mg/dL) 268 H (70-110) mg/dL Microbiology - Last 24 Hours (Table) 10/09/23 00:13 Stool Culture - Final Stool 10/06/23 12:15 Blood Culture - Final Blood 10/06/23 12:30 Blood Culture - Final Blood Assessment and Plan (1) Colitis Current Visit: Yes Status: Acute Code(s): K52.9 - NONINFECTIVE GASTROENTERI TIS AND COLITIS, UNSPECIFIED SNOMED Code(s): 57041480 (2) Cystitis Current Visit: Yes Status: Acute Code(s): N30.90 - CYSTITIS, UNSPECIFIED WITHOUT HEMATURIA SNOMED Code(s): 67104845 (3) Infection with ESBL Klebsiella oxytoca Current Visit: Yes Status: Acute Code(s): A49.8 - OTHER BACTERIAL INFECTIONS OF UNSPECIFIED SITE; Z16.12 - EXTENDED SPECTRUM BETA LACTAMASE (ESBL) RESISTANCE SNOMED Code(s): 4126726619 (4) VRE (vancomycin resistant enterococcus) culture positive Current Visit: Yes Status: Acute Code(s): Z22.39 - CARRIER OF OTHER SPECIFIED BACTERIAL DISEASES SNOMED Code(s): 998101615 Plan: 1patient presented to hospital with intractable nausea vomiting abdominal pain and diarrhea in this patient who did have evidence of small bowel ileus as well as evidence of colitis concerning for possible infectious etiology in this patient has been out of the hospital concern of C. difficile colitis 2-patient stool for C. difficile is negative stool culture currently pending 3-patient urine is currently growing ESBL Klebsiella and VRE that is penicillin sensitive 4-patient currently covered with Invanz to continue Dictation was produced using [employer] dictation software. please excuse any grammatical, word or spelling errors. Time with Patient: Less than 30
[2023-10-13 17:51] LABS: Glucose,Whole Blood 124 mg/dL (70-110)
[2023-10-14 00:30] LABS: Glucose,Whole Blood 129 mg/dL (70-110)
--- NOTE | 2023-10-14 05:53 | PN ---
PROGRESS NOTE DATE OF SERVICE: 10/12/2023 SUBJECTIVE: Lesa Patterson admitted with chronic abdominal pain, type 1 diabetes mellitus, esophageal dysmobility from severe gastroparesis, COPD. She has chronic abdominal pain. CAT scan showed colitis. Biopsies are pending, EGD and colonoscopy. Nausea severe at this time. She is unable to eat by mouth. Tube feeds are going to be restarted. She is thin, cachectic, malnourished. OBJECTIVE: CARDIOVASCULAR: S1, S2. LUNGS: Transmitted upper airway sounds. GI: Soft, nontender. PEG tube in place. HEMATOLOGIC: Low muscle mass in the bones. She appears to be pretty malnourished. Chronic abdominal pain, severe. Gastroparesis, type 1 diabetes mellitus. Improved nausea. We may have to add more medications. She has a UTI. A drug-resistant for IV antibiotics will be needed for total 7 days. She remains in the hospital for this. MMODL / IJN: [id number] /
[2023-10-14 06:00] LABS: Glucose,Whole Blood 197 mg/dL (70-110)
[2023-10-14] MEDS ORDERED: TRIMETHOBENZAMIDE 100 MG/ML 2 ML VIAL IM PRN (08:26)
--- NOTE | 2023-10-14 10:35 | PN ---
PROGRESS NOTE SUBJECTIVE: She had recent UTI, on IV antibiotics, day 2 of 7. OBJECTIVE: VITAL SIGNS: Pulse is like 114 to 118, temp 97 to 98. Blood pressure 129/80 to 146/70s to 80s, O2 99 on room air. CARDIOVASCULAR: S1, S2. LUNGS: Transmitted upper airway sounds. GI: PEG tube in place. HEMATOLOGY: Negative Homans. She is weak, fatigued. She says she is very nauseated for the last 2 days. Given scopolamine patch for nausea. Continue with PEG tube feedings. Continue with IV antibiotics for drug-resistant UTI. Sugars are improved. Prognosis guarded. MMODL / IJN: [id number] /
[2023-10-14 10:37] LABS: Basophils # (A) 0.09 X 10*3/uL (0.00-0.10); Basophils % (A) 1.1 %; Eosinophils # (A) 0.47 X 10*3/uL (0.04-0.35); Eosinophils % (A) 5.6 %; HCT 33.8 % (37.2-46.3); HGB 10.3 g/dL (12.0-15.0); Lymphocytes # (A) 2.38 X 10*3/uL (0.90-5.00); Lymphocytes % (A) 28.5 %; MCH 28.5 pg (27.0-32.0); MCHC 30.5 g/dL (32.0-37.0); MCV 93.4 FL (80.0-97.0); Mean Platelet Volume 10.6 FL (9.5-12.2); Monocytes # (A) 0.62 X 10*3/uL (0.20-1.00); Monocytes % (A) 7.4 %; NRBC Per 100 WBC 0 X 10*3/uL (0.00-0.01); Neutrophils # (A) 4.75 X 10*3/uL (1.80-7.70); Platelet Count 343 X 10*3/uL (140-440); RBC 3.62 X 10*6/uL (4.10-5.20); RDW 14.5 % (11.5-14.5); WBC 8.34 X 10*3/uL (4.50-10.00)
[2023-10-14 10:38] LABS: ALT 18 U/L (8-44); AST 37 U/L (13-35); Albumin 2.4 g/dL (3.8-4.9); Albumin/Globulin Ratio 1.09 Ratio (1.60-3.17); Alkaline Phosphatase 80 U/L (41-126); Blood Urea Nitrogen 10.2 mg/dL (9.0-27.0); Calcium 7.7 mg/dL (8.7-10.3); Carbon Dioxide 19.2 mmol/L (21.6-31.8); Chloride 110 mmol/L (96-109); Globulin 2.2 g/dL (1.6-3.3); Glucose 219 mg/dL (70-110); Potassium 4.6 mmol/L (3.5-5.5); Sodium 136 mmol/L (135-145); Total Bilirubin <0.2 mg/dL (0.3-1.2); Total Protein 4.6 g/dL (6.2-8.2)
[2023-10-14 12:09] LABS: Glucose,Whole Blood 206 mg/dL (70-110)
--- NOTE | 2023-10-14 12:47 | P.PN ---
Subjective Progress Note Date: 10/14/23 Principal diagnosis: Reason for follow-up is colitis and cystitis Patient is a 53-year-old female with a past medical history significant for diabetes mellitus hypertension chronic abdominal pain diabetic gastroparesis for the patient did have a G-tube placement for nutrition needs patient presenting to the hospital for evaluation of nausea vomiting and abdominal pain along with diarrhea CT abdominal pelvis suspicious for ileus and there was concern for colitis as well as cystitis.Patient is status post colonoscopy complicated by general surgery evidence of colitis and poor prep biopsies obtained on 10/10/2023 On today's evaluation that is 10/14/2023,the patient denies any fever or any chills, patient is breathing comfortably on room air, the patient denies chest pain shortness of breath and no significant cough, patient still complaining of nausea but no vomiting still complaining abdominal pain and diarrhea. The patient white count is 8.34, creatinine 0.4 stool culture has been negative Objective - Vital Signs Vital signs: Vital Signs Temp 97.9 F 10/14/23 08:00 Pulse 116 H 10/14/23 08:52 Resp 16 10/14/23 08:00 BP 113/76 10/14/23 08:00 Pulse Ox 96 10/14/23 08:00 FiO2 Intake & Output 10/13/23 10/14/23 10/14/23 18:59 06:59 18:59 Intake Total 826 240 Balance 826 240 Weight 39.6 kg Intake: Oral 826 240 Other: Voiding Method Bedside Commode # Voids 2 1 # Bowel Movements 2 - Exam GENERAL DESCRIPTION: Middle-aged female lying in bed in no distress RESPIRATORY SYSTEM: Unlabored breathing , decreased breath sounds at bases HEART: S1 S2 regular rate and rhythm , ABDOMEN: Soft , mild tenderness EXTREMITIES: No edema feet - Labs CBC & Chem 7: 10/14/23 07:20 10/14/23 07:20 Labs: Abnormal Lab Results - Last 24 Hours (Table) 10/13/23 10/14/23 10/14/23 Range/Units 17:50 00:27 05:58 RBC (4.10-5.20) X 10*6/uL Hgb (12.0-15.0) g/dL Hct (37.2-46.3) % MCHC (32.0-37.0) g/dL Eosinophils # (0.04-0.35) X 10*3/uL Chloride (96-109) mmol/L Carbon Dioxide (21.6-31.8) mmol/L Creatinine (0.6-1.5) mg/dL BUN/Creatinine Ratio (12.00-20.00) Ratio Glucose (70-110) mg/dL POC Glucose (mg/dL) 124 H 129 H 197 H (70-110) mg/dL Calcium (8.7-10.3) mg/dL Total Bilirubin (0.3-1.2) mg/dL AST (13-35) U/L Total Protein (6.2-8.2) g/dL Albumin (3.8-4.9) g/dL Albumin/Globulin Ratio (1.60-3.17) Ratio 10/14/23 10/14/23 10/14/23 Range/Units 07:20 07:20 12:07 RBC 3.62 L (4.10-5.20) X 10*6/uL Hgb 10.3 L (12.0-15.0) g/dL Hct 33.8 L (37.2-46.3) % MCHC 30.5 L (32.0-37.0) g/dL Eosinophils # 0.47 H (0.04-0.35) X 10*3/uL Chloride 110 H (96-109) mmol/L Carbon Dioxide 19.2 L (21.6-31.8) mmol/L Creatinine 0.4 L (0.6-1.5) mg/dL BUN/Creatinine Ratio 25.50 H (12.00-20.00) Ratio Glucose 219 H (70-110) mg/dL POC Glucose (mg/dL) 206 H (70-110) mg/dL Calcium 7.7 L (8.7-10.3) mg/dL Total Bilirubin <0.2 L (0.3-1.2) mg/dL AST 37 H (13-35) U/L Total Protein 4.6 L (6.2-8.2) g/dL Albumin 2.4 L (3.8-4.9) g/dL Albumin/Globulin Ratio 1.09 L (1.60-3.17) Ratio Assessment and Plan (1) Colitis Current Visit: Yes Status: Acute Code(s): K52.9 - NONINFECTIVE GASTROENTERITIS AND COLITIS, UNSPECIFIED SNOMED Code(s): 50752776 (2) Cystitis Current Visit: Yes Status: Acute Code(s): N30.90 - CYSTITIS, UNSPECIFIED WITHOUT HEMATURIA SNOMED Code(s): 27951036 (3) Infection with ESBL Klebsiella oxytoca Current Visit: Yes Status: Acute Code(s): A49.8 - OTHER BACTERIAL INFECTIONS OF UNSPECIFIED SITE; Z16.12 - EXTENDED SPECTRUM BETA LACTAMASE (ESBL) RESISTANCE SNOMED Code(s): 1643726650 (4) VRE (vancomycin resistant enterococcus) culture positive Current Visit: Yes Status: Acute Code(s): Z22.39 - CARRIER OF OTHER SPECI FIED BACTERIAL DISEASES SNOMED Code(s): 173545796 Plan: 1patient presented to hospital with intractable nausea vomiting abdominal pain and diarrhea in this patient who did have evidence of small bowel ileus as well as evidence of colitis concerning for possible infectious etiology in this patient has been out of the hospital concern of C. difficile colitis 2-patient stool for C. difficile is negative stool culture negative 3-patient urine is currently growing ESBL Klebsiella and VRE that is penicillin sensitive 4-patient to continue with Invanz for about a week to finish her course of therapy Dictation was produced using [employer] dictation software. please excuse any grammatical, word or spelling errors. Time with Patient: Less than 30
--- NOTE | 2023-10-14 13:22 | P.CONS ---
History of Present Illness - Reason for Consult Consult date: 10/14/23 Colitis Requesting physician: Dell Pike - Chief Complaint Abdominal pain, nausea and vomiting - History of Present Illness This is a pleasant 53-year-old female with multiple comorbidities and frequent hospitalizations for abdominal pain, nausea and vomiting on 10/06/2023. Patient has uncontrolled insulin-dependent diabetes mellitus with a history of diabetic gastroparesis. She underwent J-tube placement in June of this year with Dr. Garzon. Most of her nutrition is from tube feedings, she does take small amounts of oral intake as well. She has been following with [facility] and is scheduled to undergo gastric pump placement on October 31 of this year. Patient was recently admitted to the hospital for nausea vomiting abdominal pain and diarrhea. She was seen by gastroenterology at that time with recommendations of strict glycemic control and to follow-up with [facility] as scheduled or sooner for gastric pump. Gastroenterology was consulted during this hospitalization on 10/07/2023 however no gastroenterology was available and the hospital last week. We are seeing the patient today for the first time. She denies any vomiting for the last 2 to 3 days duration. She does have some nausea. Tube feedings are going at 43 cc an hour. She is eating small amounts of food. She has chronic abdominal pain. She has loose bowels but most of her nutrition again is from TPN. She denies any blood in her stool. She had a CT of the abdomen and pelvis that reported prominent fluid-filled small bowel loops throughout with mucosal hyperemia. Prominent fluid distention of the stomach as well. Correlate for ongoing gastroenteritis. In addition diffuse circumferential thickening of the colon distally to the rectum. Correlate for superimposed moderate pancolitis. Additional circumferential bladder wall thickening correlate to exclude cystitis and indwelling PEG tube similar to prior looped with gastric fundus but tip abutting the wall of the distal abdomen. Stool for C. difficile negative. Stool cultures have been nega tive. She was seen by general surgery and Dr. Garzon performed a colonoscopy on 10/10/2023 which reported poor prep, multiple colon polyps and rectal biopsy taken. Biopsy results came back without any evidence of colitis.. She is currently being treated for cystitis, urine positive for ESBL Klebsiella and VRE. Review of Systems REVIEW OF SYSTEMS: CARDIOPULMONARY: No chest pain or shortness of breath. Gastrointestinal: Chronic diffuse abdominal pain. J-tube present. Chronic nausea and vomiting. No hematemesis, coffee-ground emesis. No rectal bleeding, or melena. GENITOURINARY: No dysuria or hematuria. MUSCULOSKELETAL: Reports normal range of motion., Joint pain. SKIN: No rashes. No jaundice. ENDOCRINE: No chills, fevers. No excessive weight gain or loss. No polydipsia or polyuria. Uncontrolled diabetes with frequent hyperglycemia. PSYCHIATRIC: Unremarkable. NEUROLOGY: No change in mental status. Denies dizziness, headache. ENT: Vision unremarkable. CONSTITUTIONAL: No recent weight loss. No fever, chills, night sweats. Past Medical History Past Medical History: Diabetes Mellitus, Hypertension, Musculoskeletal Disorder Additional Past Medical History / Comment(s): FREQ NAUSEA, PAINFUL RT SHOULDER "FROZEN SHOULDER", NEUROPATHY PORFIRIO LEGS and hands, Blood pressures can run high History of Any Multi-Drug Resistant Organisms: ESBL, MRSA, 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;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 MDRO Source:: Urine VRE and ESBL, MRSA-ABD Past Surgical History: Orthopedic Surgery, Tubal Ligation Additional Past Surgical History / Comment(s): rt shoulder Past Anesthesia/Blood Transfusion Reactions: No Reported Reaction Additional Past Anesthesia/Blood Transfusion Reaction / Comm: UNK FAMILY HX Past Psychological History: Anxiety Smoking Status: Current every day smoker Past Alcohol Use History: None Reported Past Drug Use History: Marijuana - Past Family History Father History Unknown: Yes Additional Family Medical History / Comment(s): unknown-adopted Mother History Unknown: Yes Additional Family Medical History / Comment(s): unknown- adopted Medications and Allergies Home Medications Medication Instructions Recorded Confirmed Type ALPRAZolam [Xanax] 0.25 mg PO BID PRN 05/12/23 10/06/23 History Atorvastatin [Lipitor] 20 mg PO DAILY 05/12/23 10/06/23 History DULoxetine HCL [Cymbalta] 30 mg PO DAILY 05/12/23 10/06/23 History Insulin Lispro [humaLOG Kwikpen] 2 unit SQ AC-TID 05/12/23 10/06/23 History Ipratropium-Albuterol Nebulize 3 ml INHALATION RT-BID 05/12/23 10/06/23 History [Duoneb 0.5 mg-3 mg/3 ml Soln] Magnesium Oxide [Mag-Ox] 400 mg PO DAILY 05/12/23 10/06/23 History Mirtazapine [Remeron] 30 mg PO HS 05/12/23 10/06/23 History Metoclopramide [Reglan] 10 mg PO ACHS 30 Days #120 tab 05/15/23 10/06/23 Rx Pantoprazole [Protonix] 40 mg PO AC-BID 30 Days #60 tab 05/21/23 10/06/23 Rx Folic Acid 1 mg PO DAILY 06/15/23 10/06/23 History Ondansetron [Zofran] 4 mg PO DAILY 30 Days #30 tab 06/26/23 10/06/23 Rx HYDROcodone/APAP 7.5-325MG [Edroy 1 tab PO TID PRN 08/25/23 10/06/23 History 7.5-325] Insulin Lispro [humaLOG Kwikpen] See Protocol SQ AC-TID 09/03/23 10/06/23 History Insulin Glargine [Lantus Vial] 10 unit SQ DAILY #0 09/20/23 10/06/23 Rx Losartan-Hctz 50-12.5 mg [Hyzaar 1 tab PO DAILY 09/26/23 10/06/23 History 50-12.5] Penicillin V Potassium [Pen Vee K] 500 mg PO BID 10/06/23 10/06/23 History dexAMETHasone [Decadron Elixir] 0.5 mg PO TID 10/06/23 10/06/23 History Allergies Allergy/AdvReac Type Severity Reaction Status Date / Time fentanyl Allergy Unknown Verified 10/06/23 12:17 Physical Exam Vitals: Vital Signs Temp Pulse Resp BP Pulse Ox 10/14/23 08:00 97.9 F 105 H 16 113/76 96 10/14/23 02:00 98.5 F 52 L 16 104/66 95 10/13/23 20:00 98.6 F 115 H 20 143/94 98 10/13/23 14:15 98.0 F 118 H 16 129/80 99 Intake and Output 10/13/23 10/14/23 10/14/23 22:59 06:59 14:59 Intake Total 118 Balance 118 Intake: Oral 118 Other: Voiding Method Bedside Commode # Voids 2 1 # Bowel Movements 2 Weight 39.6 kg General appearance: The patient is alert, oriented, appears in no acute distress. HET: Head is normocephalic and atraumatic. Conjunctiva pink. Sclera anicteric. Neck: Supple without lymphadenopathy. Abdomen: Soft, thin, diffuse tenderness, nondistended. Extremities: Normal skin color and turgor. No pedal edema Skin: No rashes, no jaundice Neurological: No focal deficits. Alert and oriented. Results CBC & Chem 7: 10/14/23 07:20 10/14/23 07:20 Labs: Abnormal Lab Results - Last 24 Hours (Table) 10/13/23 10/14/23 10/14/23 Range/Units 17:50 00:27 05:58 POC Glucose (mg/dL) 124 H 129 H 197 H (70-110) mg/dL Comments: CT of the abdomen and pelvis that reported prominent fluid-filled small bowel loops throughout with mucosal hyperemia. Prominent fluid distention of the stomach as well. Correlate for ongoing gastroenteritis. In addition diffuse circumferential thickening of the colon distally to the rectum. Correlate for superimposed moderate pancolitis. Additional circumferential bladder wall th ickening correlate to exclude cystitis and indwelling PEG tube similar to prior looped with gastric fundus but tip abutting the wall of the distal abdomen. Assessment and Plan (1) Chronic abdominal pain Narrative/Plan: 53-year-old female seen multiple times for chronic abdominal pain, nausea and vomiting with uncontrolled insulin-dependent diabetes and diabetic gastroparesis. Patient was admitted again with same complaints abdominal pain, nausea and vomiting with diarrhea. Patient history tube with PEG tube feedings. She is scheduled to have gastric pump placed with [facility] specialist on October [address] abdomen pelvis reported some thickening with possible colitis and cyst fluid-filled colon. She underwent colonoscopy with general surgery with no findings of colitis and biopsies negative for colitis. No further plans for endoscopic evaluation. Recommend patient follow with [facility] as scheduled. Will add Tigan for nausea. Vomiting has improved. Continue with tube feedings. Current Visit: No Status: Acute Priority: Medium Code(s): R10.9 - UNSPECIFIED ABDOMINAL PAIN; G89.29 - OTHER CHRONIC PAIN SNOMED Code(s): 518486049 (2) Diarrhea Current Visit: No Status: Acute Code(s): R19.7 - DIARRHEA, UNSPECIFIED SNOMED Code(s): 48168034 (3) Diabetic gastroparesis Current Visit: No Status: Acute Code(s): E11.43 - TYPE 2 DIABETES W DIABETIC AUTONOMIC (POLY)NEUROPATHY; K31.84 - GASTROPARESIS SNOMED Code(s): 158838789 (4) Nausea & vomiting Narrative/Plan: Nausea and vomiting chronic. Blood sugars have been more controlled. Vomiting has subsided, patient remains with nausea. May be secondary to cystitis and IV antibiotics. Current Visit: No Status: Acute Code(s): R11.2 - NAUSEA WITH VOMITING, UN SPECIFIED SNOMED Code(s): 37583492 (5) Insulin dependent diabetes mellitus Current Visit: No Status: Acute Code(s): GLZ7059 - SNOMED Code(s): 798777 09 (6) Cystitis Current Visit: Yes Status: Acute Code(s): N30.90 - CYSTITIS, UNSPECIFIED WITHOUT HEMATURIA SNOMED Code(s): 27929203 (7) Infection with ESBL Klebsiella oxytoca Current Visit: Yes Status: Acute Code(s): A49.8 - OTHER BACTERIAL INFECTIONS OF UNSPECIFIED SITE; Z16.12 - EXTENDED SPECTRUM BETA LACTAMASE (ESBL) RESISTANCE SNOMED Code(s): 8965017602 (8) VRE (vancomycin resistant enterococcus) culture positive Current Visit: Yes Status: Acute Code(s): Z22.39 - CARRIER OF OTHER SPECIFIED BACTERIAL DISEASES SNOMED Code(s): 113259427 Plan: 1. Continue symptomatic and supportive care 2. Stool C. difficile negative, stool cultures negative 3. Tigan added for nausea. Continue other antiemetics 4. Diet as tolerated 5. Follow-up with [facility] as scheduled for gastric pump 6. No plans on endoscopic evaluation 7. Consider discontinuing magnesium oxide due to diarrhea 8. Will add Questran for stool bulking, can consider Imodium as needed Thank you for this consultation, we will sign off at this time. Dr. Shakira Bear I agree with the dictator's note, documented as a scribe by Leigh Ordonez.
--- NOTE | 2023-10-14 13:57 | P.PN ---
Subjective Progress Note Date: 10/14/23 CHIEF COMPLAINT: Abdominal pain HISTORY OF PRESENT ILLNESS: Patient continues to complain of abdominal pain. However, she is tolerating the tube feeds. She is able to tolerate oral diet. She is having diarrhea. She denies any increase in abdominal pain. Afebrile. Mildly tachycardic. WBC is 8.34 Hgb 10.3 patient seen by GI service. They added Tigan for nausea. Patient has appointment scheduled with [facility] for gastric polyp. Pathology from colonoscopy reports tubular adenoma right colon and cecum. Rectum biopsy was benign mucosa PHYSICAL EXAM: VITAL SIGNS: Reviewed. GENERAL: no acute distress. ABDOMEN: Soft. Nondistended. Mild tenderness palpation of lower abdomen. NEUROLOGIC: Alert and oriented. Cranial nerves II through XII grossly intact. ASSESSMENT: 1. Lower abdominal pain. Status post colonoscopy with multiple colon polyps and rectal biopsy completed 2. History of diabetic gastroparesis 3. History of chronic abdominal pain PLAN: -Patient can be discharged from surgical standpoint when medically cleared -Patient is tolerating diet and tube feeds. Physician Ultrasound Manager note has been reviewed by physician. Signing provider agrees with the documented findings, assessment, and plan of care. Objective - Vital Signs Vital signs: Vital Signs Temp 97.9 F 10/14/23 08:00 Pulse 116 H 10/14/23 08:52 Resp 16 10/14/23 08:00 BP 113/76 10/14/23 08:00 Pulse Ox 96 10/14/23 08:00 FiO2 Intake & Output 10/13/23 10/14/23 10/14/23 18:59 06:59 18:59 Intake Total 826 600 Balance 826 600 Weight 39.6 kg Intake: Oral 826 600 Other: Voiding Method Bedside Commode # Voids 2 1 3 # Bowel Movements 2 3 - Labs CBC & Chem 7: 10/14/23 07:20 10/14/23 07:20 Labs: Abnormal Lab Results - Last 24 Hours (Table) 10/13/23 10/14/23 10/14/23 Range/Units 17:50 00:27 05:58 RBC (4.10-5.20) X 10*6/uL Hgb (12.0-15.0) g/dL Hct (37.2-46.3) % MCHC (32.0-37.0) g/dL Eosinophils # (0.04-0.35) X 10*3/uL Chloride (96-109) mmol/L Carbon Dioxide (21.6-31.8) mmol/L Creatinine (0.6-1.5) mg/dL BUN/Creatinine Ratio (12.00-20.00) Ratio Glucose (70-110) mg/dL POC Glucose (mg/dL) 124 H 129 H 197 H (70-110) mg/dL Calcium (8.7-10.3) mg/dL Total Bilirubin (0.3-1.2) mg/dL AST (13-35) U/L Total Protein (6.2-8.2) g/dL Albumin (3.8-4.9) g/dL Albumin/Globulin Ratio (1.60-3.17) Ratio 10/14/23 10/14/23 10/14/23 Range/Units 07:20 07:20 12:07 RBC 3.62 L (4.10-5.20) X 10*6/uL Hgb 10.3 L (12.0-15.0) g/dL Hct 33.8 L (37.2-46.3) % MCHC 30.5 L (32.0-37.0) g/dL Eosinophils # 0.47 H (0.04-0.35) X 10*3/uL Chloride 110 H (96-109) mmol/L Carbon Dioxide 19.2 L (21.6-31.8) mmol/L Creatinine 0.4 L (0.6-1.5) mg/dL BUN/Creatinine Ratio 25.50 H (12.00-20.00) Ratio Glucose 219 H (70-110) mg/dL POC Glucose (mg/dL) 206 H (70-110) mg/dL Calcium 7.7 L (8.7-10.3) mg/dL Total Bilirubin <0.2 L (0.3-1.2) mg/dL AST 37 H (13-35) U/L Total Protein 4.6 L (6.2-8.2) g/dL Albumin 2.4 L (3.8-4.9) g/dL Albumin/Globulin Ratio 1.09 L (1.60-3.17) Ratio
[2023-10-14 17:28] LABS: Glucose,Whole Blood 234 mg/dL (70-110)
[2023-10-15 00:29] LABS: Glucose,Whole Blood 234 mg/dL (70-110)
--- NOTE | 2023-10-15 00:56 | PN ---
PROGRESS NOTE SUBJECTIVE: Lesa remains on ertapenem for drug-resistant UTI per Dr. Brunson in another 3 or 4 days. Get a PEG tube in. She is still nauseated. Ordered scopolamine patch yesterday. She had multiple colon polyps, rectal biopsy completed, history of diabetic gastroparesis. Surgery cleared her for discharge with the tube feedings, but we have to wait for the IV antibiotics to be finished for the drug-resistant UTI per Dr. Brunson. Klebsiella, Enterococcus faecalis UTI. White count 8.348, hemoglobin is 10.3, sodium 136, potassium 4.6, CO2 is 19.2. Sugars 100 to 200, very well controlled. Continue IV antibiotics per Dr. Brunson. GI saw her. She has progressive nausea despite treatments above. They recommended chronic abdominal pain, nausea, vomiting, diabetic gastroparesis. Gastric pump showed colitis and cyst colon. Biopsies are negative for colitis. Tigan for nausea, vomiting has improved, tube feedings. Continue IV antibiotics per Infectious Disease. PROGNOSIS: Guarded. MMODL / IJN: [id number] /
[2023-10-15 06:31] LABS: Glucose,Whole Blood 155 mg/dL (70-110)
[2023-10-15] MEDS ORDERED: LOPERAMIDE 2 MG CAP PO PRN (07:05)
[2023-10-15] MEDS: CHOLESTYRAMINE (WITH SUGAR) 4 GM PACKET PO SCH (08:38)
--- NOTE | 2023-10-15 11:20 | P.PN ---
Subjective Progress Note Date: 10/15/23 CHIEF COMPLAINT: Abdominal pain HISTORY OF PRESENT ILLNESS: Patient reports she is feeling better. Tolerating diet. Tolerating tube feeds. She does complain of lower abdominal pain. Pain controlled She is having diarrhea. Patient has appointment scheduled with [facility] for gastric pump. Pathology from colonoscopy reports tubular adenoma right colon and cecum. Rectum biopsy was benign mucosa PHYSICAL EXAM: VITAL SIGNS: Reviewed. GENERAL: no acute distress. ABDOMEN: Soft. Nondistended. Mild tenderness palpation of lower abdomen. NEUROLOGIC: Alert and oriented. Cranial nerves II through XII grossly intact. ASSESSMENT: 1. Lower abdominal pain. Status post colonoscopy with multiple colon polyps and rectal biopsy completed 2. History of diabetic gastroparesis 3. History of chronic abdominal pain PLAN: -Patient can be discharged from surgical standpoint when medically cleared -Patient is tolerating diet and tube feeds. Physician Petroleum Refining Firer note has been reviewed by physician. Signing provider agrees with the documented findings, assessment, and plan of care. Objective - Vital Signs Vital signs: Vital Signs Temp 98 F 10/15/23 07:42 Pulse 112 H 10/15/23 08:51 Resp 15 10/15/23 07:42 BP 123/74 10/15/23 07:42 Pulse Ox 98 10/15/23 07:42 FiO2 Intake & Output 10/14/23 10/15/23 10/15/23 18:59 06:59 18:59 Intake Total 1278 120 Balance 1278 120 Weight 40.1 kg Intake: Oral 600 120 Tube Feeding 528 Other 150 Other: Voiding Method Bedside Commode # Voids 2 # Bowel Movements 3 2 - Labs CBC & Chem 7: 10/14/23 07:20 10/14/23 07:20 Labs: Abnormal Lab Results - Last 24 Hours (Table) 10/14/23 10/14/23 10/15/23 Range/Units 12:07 17:26 00:28 POC Glucose (mg/dL) 206 H 234 H 234 H (70-110) mg/dL 10/15/23 Range/Units 06:29 POC Glucose (mg/dL) 155 H (70-110) mg/dL
[2023-10-15 12:02] LABS: Glucose,Whole Blood 231 mg/dL (70-110)
[2023-10-15 17:42] LABS: Glucose,Whole Blood 97 mg/dL (70-110)
[2023-10-16 00:05] LABS: Glucose,Whole Blood 196 mg/dL (70-110)
[2023-10-16 06:58] LABS: Glucose,Whole Blood 181 mg/dL (70-110)
--- NOTE | 2023-10-16 11:00 | P.PN ---
Subjective Progress Note Date: 10/16/23 CHIEF COMPLAINT: Abdominal pain HISTORY OF PRESENT ILLNESS: Patient has no new complaints. Sitting comfortably in bed on the phone. Tolerating tube feeds. Tolerating diet. Afebrile. Mildly tachycardic. Stool for C. difficile negative PHYSICAL EXAM: VITAL SIGNS: Reviewed. GENERAL: no acute distress. ABDOMEN: Soft. Nondistended. NEUROLOGIC: Alert and oriented. Cranial nerves II through XII grossly intact. ASSESSMENT: 1. Lower abdominal pain. Status post colonoscopy with multiple colon polyps and rectal biopsy completed 2. History of diabetic gastroparesis 3. History of chronic abdominal pain PLAN: -Patient can be discharged from surgical standpoint when medically cleared -Patient is tolerating diet and tube feeds. Physician Investment Officer note has been reviewed by physician. Signing provider agrees with the documented findings, assessment, and plan of care. Objective - Vital Signs Vital signs: Vital Signs Temp 98 F 10/16/23 07:30 Pulse 108 H 10/16/23 09:13 Resp 18 10/16/23 07:30 BP 104/66 10/16/23 07:30 Pulse Ox 96 10/16/23 07:30 FiO2 Intake & Output 10/15/23 10/16/23 10/16/23 18:59 06:59 18:59 Intake Total 600 Balance 600 Weight 40.1 kg Intake: Oral 600 Other: Voiding Method Bedside Commode # Voids 2 # Bowel Movements 2 - Labs CBC & Chem 7: 10/14/23 07:20 10/14/23 07:20 Labs: Abnormal Lab Results - Last 24 Hours (Table) 10/15/23 10/16/23 10/16/23 Range/Units 12:00 00:04 06:57 POC Glucose (mg/dL) 231 H 196 H 181 H (70-110) mg/dL
[2023-10-16 12:23] LABS: Glucose,Whole Blood 177 mg/dL (70-110)
--- NOTE | 2023-10-16 13:30 | PN ---
PROGRESS NOTE SUBJECTIVE: This is a 53-year-old white female. She is on multiple nausea medicines for gastroparesis, getting followup with [facility] for gastroparesis surgery with pump placement. IV antibiotics for drug-resistant UTI are finished today, day 7. She was cleared by Dr. Brunson for discharge. Home medicines are reviewed. OBJECTIVE: CARDIOVASCULAR: S1, S2. LUNGS: Transmitted upper sounds. HEMATOLOGY: Negative for Homans. VITAL SIGNS: Blood pressure 130s to 104/66, O2 96 on room air, pulse is still low at 108, temp 98. Sugars in the 97-177. C diff is negative. She will be cleared for discharge to follow up as an outpatient with Dr. Pike. Please see further orders. MMODL / IJN: [id number] /
[2023-10-16] MEDS: ONDANSETRON 4 MG/2 ML VIAL IVP PRN (14:34)
[2023-10-16 17:30] LABS: Glucose,Whole Blood 127 mg/dL (70-110)
[2023-10-17 01:00] LABS: Glucose,Whole Blood 176 mg/dL (70-110)
[2023-10-17 01:42] VITALS: TEMP 97.8
[2023-10-17 06:25] LABS: Glucose,Whole Blood 235 mg/dL (70-110)
[2023-10-17 07:51] VITALS: BP 123/77; RESP 19
[2023-10-17 09:23] VITALS: PULSE 102
--- NOTE | 2023-10-17 10:58 | P.PN ---
Subjective Progress Note Date: 10/17/23 CHIEF COMPLAINT: Abdominal pain HISTORY OF PRESENT ILLNESS: Patient reports she is being discharged today. She has no new complaints. Tolerating tube feeds. Tolerating oral diet. Afebrile. Mildly tachycardic PHYSICAL EXAM: VITAL SIGNS: Reviewed. GENERAL: no acute distress. ABDOMEN: Soft. Nondistended. NEUROLOGIC: Alert and oriented. Cranial nerves II through XII grossly intact. ASSESSMENT: 1. Lower abdominal pain. Status post colonoscopy with multiple colon polyps and rectal biopsy completed. Path results reported tubular adenomas 2. History of diabetic gastroparesis 3. History of chronic abdominal pain PLAN: -Patient can be discharged from surgical standpoint when medically cleared -Patient is tolerating diet and tube feeds. Physician Iron Pourer note has been reviewed by physician. Signing provider agrees with the documented findings, assessment, and plan of care. Objective - Vital Signs Vital signs: Vital Signs Temp 97.8 F 10/17/23 07:50 Pulse 102 H 10/17/23 09:01 Resp 19 10/17/23 07:50 BP 123/77 10/17/23 07:50 Pulse Ox 95 10/17/23 07:50 FiO2 Intake & Output 10/16/23 10/17/23 10/17/23 18:59 06:59 18:59 Intake Total 1120 Output Total 1 Balance 1119 Weight 39.1 kg Intake: Oral 120 Tube Feeding 1000 Output: Emesis 1 Other: Voiding Method Bedside Commode Bedside Commode # Voids 2 # Bowel Movements 0 - Labs CBC & Chem 7: 10/14/23 07:20 10/14/23 07:20 Labs: Abnormal Lab Results - Last 24 Hours (Table) 10/16/23 10/16/23 10/17/23 Range/Units 12:21 17:28 00:59 POC Glucose (mg/dL) 177 H 127 H 176 H (70-110) mg/dL 10/17/23 Range/Units 06:23 POC Glucose (mg/dL) 235 H (70-110) mg/dL
[2023-10-17 12:09] LABS: Glucose,Whole Blood 246 mg/dL (70-110)
[2023-10-17] MEDS: HYDROcodone/APAP 7.5-325MG 1 EACH TAB PO PRN (13:33)
[2023-10-17 14:35] VITALS: BMI 17.4
== END 2023-10-17 14:27 | disposition home or self-care (01) | DRG 871 ==
LOC: EC 08:43 → 6NMEDSUR 11:56 → OBSVTOIN 10-08 08:21
PROVIDERS: ADMIT Family Medicine; ATTEND Family Medicine
PROC: 3E0336Z Introduction of Nutritional Substance into Peripheral Vein, Percutaneous Approach (ICD-10-PCS; 2023-10-08)
PROC: 0DBP8ZX Excision of Rectum, Via Natural or Artificial Opening Endoscopic, Diagnostic (ICD-10-PCS; 2023-10-10)
PROC: 0D9670Z Drainage of Stomach with Drainage Device, Via Natural or Artificial Opening (ICD-10-PCS; principal; 2023-10-10 07:30)
PROC: 0DBF8ZX Excision of Right Large Intestine, Via Natural or Artificial Opening Endoscopic, Diagnostic (ICD-10-PCS; 2023-10-10 07:30)
DX: A41.9 Sepsis, unspecified organism (principal); E43 Unspecified severe protein-calorie malnutrition; Z68.1 Body mass index [BMI] 19.9 or less, adult; R64 Cachexia; Z16.12 Extended spectrum beta lactamase (ESBL) resistance; Z16.21 Resistance to vancomycin; B96.1 Klebsiella pneumoniae [K. pneumoniae] as the cause of diseases classified elsewhere; D12.8 Benign neoplasm of rectum; D12.2 Benign neoplasm of ascending colon; K52.9 Noninfective gastroenteritis and colitis, unspecified; E87.6 Hypokalemia; K31.84 Gastroparesis; K63.5 Polyp of colon; K64.9 Unspecified hemorrhoids; B95.2 Enterococcus as the cause of diseases classified elsewhere; K22.4 Dyskinesia of esophagus; E10.43 Type 1 diabetes mellitus with diabetic autonomic (poly)neuropathy; E78.5 Hyperlipidemia, unspecified; F41.9 Anxiety disorder, unspecified; I10 Essential (primary) hypertension; N30.90 Cystitis, unspecified without hematuria; Z79.899 Other long term (current) drug therapy; Z79.4 Long term (current) use of insulin; Z87.19 Personal history of other diseases of the digestive system; Z93.1 Gastrostomy status; G89.29 Other chronic pain; Z98.51 Tubal ligation status
CPT/HCPCS: 36415; 45380; 45385; 71045; 74018; 74177; 80048; 80053; 83036; 83605; 83630; 83690; 83735; 84145; 85025; 85027; 87040; 87045; 87046; 87077; 87086; 87186; 87324; 88305; 94640; 96365; 96375; 99285

== ENCOUNTER 2023-10-21 08:06 | Inpatient (IN) | payer MEDICARE, OTHER ==
--- NOTE | 2023-10-21 08:24 | ED ---
Abdominal Pain HPI - General Chief Complaint: Abdominal Pain Stated Complaint: ABD pain Time Seen by Provider: 10/21/23 08:08 Source: patient, RN notes reviewed Mode of arrival: EMS Limitations: no limitations - History of Present Illness Initial Comments: This is a 53-year-old female who presents to the emergency department for abdominal pain, nausea, and vomiting. Patient has a history of gastroparesis and is well-known to this facility for recurrent visits related to intractable abdominal pain and intractable nausea and vomiting. She was just discharged from this facility 4 days ago, at which time tube feedings were resumed. She has an appointment at [facility] on 11/01/2023 to have a gastric stimulator placed. She is taking [place], Zofran, and Reglan without relief in symptoms. Also reports diarrhea. MD Complaint: abdominal pain - Related Data Home Medications Medication Instructions Recorded Confirmed ALPRAZolam [Xanax] 0.25 mg PO BID PRN 05/12/23 10/21/23 Atorvastatin [Lipitor] 20 mg PO DAILY 05/12/23 10/21/23 DULoxetine HCL [Cymbalta] 30 mg PO DAILY 05/12/23 10/21/23 Insulin Lispro [humaLOG Kwikpen] 2 unit SQ AC-TID 05/12/23 10/21/23 Ipratropium-Albuterol Nebulize 3 ml INHALATION RT-BID 05/12/23 10/21/23 [Duoneb 0.5 mg-3 mg/3 ml Soln] Mirtazapine [Remeron] 30 mg PO HS 05/12/23 10/21/23 Folic Acid 1 mg PO DAILY 06/15/23 10/21/23 HYDROcodone/APAP 7.5-325MG [[place] 1 tab PO TID PRN 08/25/23 10/21/23 7.5-325] Losartan-Hctz 50-12.5 mg [Hyzaar 1 tab PO DAILY 09/26/23 10/21/23 50-12.5] Previous Rx's Medication Instructions Recorded Metoclopramide [Reglan] 10 mg PO ACHS 30 Days #120 tab 05/15/23 Pantoprazole [Protonix] 40 mg PO AC-BID 30 Days #60 tab 05/21/23 Ondansetron [Zofran] 4 mg PO DAILY 30 Days #30 tab 06/26/23 Insulin Glargine [Lantus Vial] 10 unit SQ DAILY #0 09/20/23 Acetaminophen Tab [Tylenol] 650 mg PO Q6HR PRN tab 10/16/23 Cholestyramine (with Sugar) 4 gm PO BID@1000,1800 30 Days #60 10/16/23 [Questran Packet] packet Loperamide [Imodium] 2 mg PO QID PRN cap 10/16/23 Allergies Allergy/AdvReac Type Severity Reaction Status Date / Time fentanyl Allergy Unknown Verified 10/21/23 11:03 Review of Systems ROS Statement: Those systems with pertinent positive or pertinent negative responses have been documented in the HPI. ROS Other: All systems not noted in ROS Statement are negative. Past Medical History Past Medical History: Diabetes Mellitus, Hypertension, Musculoskeletal Disorder Additional Past Medical History / Comment(s): FREQ NAUSEA, PAINFUL RT SHOULDER "FROZEN SHOULDER", NEUROPATHY PORFIRIO LEGS and hands, Blood pressures can run high History of Any Multi-Drug Resistant Organisms: ESBL, MRSA, VRE Date of last positivie culture/infection: 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;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 MDRO Source:: Urine VRE and ESBL, MRSA-ABD Past Surgical History: Orthopedic Surgery, Tubal Ligation Additional Past Surgical History / Comment(s): rt shoulder Past Anesthesia/Blood Transfusion Reactions: No Reported Reaction Additional Past Anesthesia/Blood Transfusion Reaction / Comment(s): UNK FAMILY HX Past Psychological History: Anxiety Smoking Status: Current every day smoker Past Alcohol Use History: None Reported Past Drug Use History: Marijuana - Past Family History Father History Unknown: Yes Additional Family Medical History / Comment(s): unknown-adopted Mother History Unknown: Yes Additional Family Medical History / Comment(s): unknown- adopted General Exam Limitations: no limitations General appearance: alert, in no apparent distress Head exam: Present: atraumatic, normocephalic, normal inspection Respiratory exam: Present: normal lung sounds bilaterally. Absent: respiratory distress, wheezes, rales, rhonchi, stridor Cardiovascular Exam: Present: regular rate, normal rhythm, normal heart sounds. Absent: systolic murmur, diastolic murmur, rubs, gallop, clicks GI/Abdominal exam: Present: soft, tenderness (generalized), normal bowel sounds. Absent: distended Neurological exam: Present: alert, oriented X3, CN II-XII intact Psychiatric exam: Present: normal affect, normal mood Skin exam: Present: warm, dry, intact, normal color. Absent: rash Course Vital Signs 10/21/23 10/21/23 10/21/23 08:08 09:10 13:05 Temperature 98 F Pulse Rate 126 H 125 H 105 H Respiratory 18 18 16 Rate Blood Pressure 87/63 169/107 74/47 O2 Sat by Pulse 98 96 97 Oximetry 10/21/23 10/21/23 13:54 15:19 Temperature Pulse Rate 120 H 109 H Respiratory 16 16 Rate Blood Pressure 101/69 113/75 O2 Sat by Pulse 96 Oximetry Medical Decision Making - Medical Decision Making This is a 53 year old female who presents to the emergency department for abdominal pain, nausea, and vomiting. Was pt. sent in by a medical professional or institution? @ -No Did you speak to anyone other than the patient for history? @ -No Did you review nursing and triage notes? @ -Yes, and I agree, it is accurate with regards to the patient's symptoms. Were old charts reviewed? @ -No Differential Diagnosis? @ -Differential Abdominal Pain Women: Appendicitis, Cholecystitis, diverticulosis, ischemic bowel, pancreatitis, hepatitis, UTI, gastroenteritis, AAA, incarcerated hernia, bowel obstruction, constipation, inflammatory bowel, hepatitis, peptic ulcer disease, splenic infarction, perforated viscus, vulvitis, ovarian torsion, PID, kidney stone, placenta abruption, this is not meant to be an all-inclusive list EKG interpreted by me (3pts min.)? @ -Not obtained X-rays interpreted by me (1pt min.)? @ -Not obtained CT interpreted by me (1pt min.)? @ -Not obtained U/S interpreted by me (1pt. min.)? @ -Gallbladder US obtained. My interpretation identifies no evidence of choleli thiasis. What testing was considered but not performed? (CT, X-rays, U/S, labs)? Why? @ -None What meds were considered but not given? Why? @ -None Did you discuss the management of the patient with other professionals? @ -Dr. Pike, who accepts the patient for admission. Did you reconcile home meds? @ -Yes Was smoking cessation discussed for >3mins.? @ -No Was critical care preformed (if so, how long)? @ -No Were there social determinants of health that impacted care today? How? (Homelessness, low income, unemployed, alcoholism, drug addiction, transportation, low edu. Level, literacy, decrease access to med. care, care home, rehab)? @ -No Was there de-escalation of care discussed even if they declined? (Discuss DNR or withdrawal of care, Hospice)? @ -No What co-morbidities impacted this encounter? (DM, HTN, Smoking, COPD, CAD, Cancer, CVA, Hep., AIDS, mental health diagnosis, sleep apnea, morbid obesity)? @ -DM, HTN, gastroparesis Was patient admitted / discharged? @ -Admitted. Lab work demonstrates leukocytosis with a white blood cell count of 17.2, likely reactive. Glucose elevated at 776. Lab work not consistent wit h DKA. Anion gap is 8 and bicarb is 30. Liver enzymes mildly elevated. Lipase is 566. Urinalysis negative for signs of infection. COVID, influenza, and RSV testing negative. Abdominal ultrasound obtained revealing no acute process. Patient received multiple doses of pain medication and antiemetics, but continued to be symptomatic. She was initially given 10 units of IV insulin which reduced sugar to 554. Case discussed with patient's PCP who accepts admission for further management. Maintenance fluids initiated as well. Undiagnosed new problem with uncertain prognosis? @ -None Drug Therapy requiring intensive monitoring for toxicity (Heparin, Nitro, Insulin, Cardizem)? @ -None Were any procedures done? @ -None Diagnosis/symptom? @ -Intractable abdominal pain, intractable nausea and vomiting Acute, or Chronic, or Acute on Chronic? @ -Acute Uncomplicated (without systemic symptoms) or Complicated (systemic symptoms)? @ -Complicated Side effects of treatment? @ -None Exacerbation, Progression, or Severe Exacerbation] @ -Not applicable Poses a threat to life or bodily function? @ -Yes This case was discussed in detail with the attending ED physician, Dr. Mejias. Presentation, findings, and treatment plan discussed in detail as well. - Lab Data Result diagrams: 10/21/23 08:27 10/21/23 08:27 Lab Results 10/21/23 10/21/23 10/21/23 Range/Units 08:27 08:27 08:27 WBC 17.2 H (3.8-10.6) k/uL RBC 4.52 (3.80-5.40) m/uL Hgb 12.4 (11.4-16.0) gm/dL Hct 41.2 (34.0-46.0) % MCV 91.0 (80.0-100.0) fL MCH 27.3 (25.0-35.0) pg MCHC 30.0 L (31.0-37.0) g/dL RDW 14.6 (11.5-15.5) % Plt Count 583 H (150-450) k/uL MPV 8.0 Neutrophils % 89 % Lymphocytes % 7 % Monocytes % 2 % Eosinophils % 0 % Basophils % 1 % Neutrophils # 15.3 H (1.3-7.7) k/uL Lymphocytes # 1.2 (1.0-4.8) k/uL Monocytes # 0.3 (0-1.0) k/uL Eosinophils # 0.0 (0-0.7) k/uL Basophils # 0.2 (0-0.2) k/uL Hypochromasia Slight Sodium 130 L (137-145) mmol/L Potassium 5.1 (3.5-5.1) mmol/L Chloride 92 L (98-107) mmol/L Carbon Dioxide 30 (22-30) mmol/L Anion Gap 8 mmol/L BUN 34 H (7-17) mg/dL Creatinine 0.66 (0.52-1.04) mg/dL Est GFR (CKD-EPI)AfAm >90 (>60 ml/min/1.73 sqM) Est GFR (CKD-EPI)NonAf >90 (>60 ml/min/1.73 sqM) Glucose 776 H* (74-99) mg/dL POC Glucose (mg/dL) (70-110) mg/dL POC Glu Pharmacognosist ID Plasma Lactic Acid Travis 1.8 (0.7-2.0) mmol/L Calcium 9.1 (8.4-10.2) mg/dL Magnesium 2.0 (1.6-2.3) mg/dL Total Bilirubin 0.5 (0.2-1.3) mg/dL AST 47 H (14-36) U/L ALT 137 H (4-34) U/L Alkaline Phosphatase 169 H (38-126) U/L Total Protein 6.4 (6.3-8.2) g/dL Albumin 3.3 L (3.5-5.0) g/dL Amylase 142 H (30-110) U/L Lipase 566 H (23-300) U/L Urine Color Urine Appearance (Clear) Urine pH (5.0-8.0) Ur Specific [place] (1.001-1.035) Urine Protein (Negative) Urine Glucose (UA) (Negative) Urine Ketones (Negative) Urine Blood (Negative) Urine Nitrite (Negative) Urine Bilirubin (Negative) Urine Urobilinogen (<2.0) mg/dL Ur Leukocyte Esterase (Negative) Urine RBC (0-5) /hpf Ur Squamous Epith Cells (0-4) /hpf Hyaline Casts (0-2) /lpf Influenza Type A (PCR) (Not Detectd) Influenza Type B (PCR) (Not Detectd) RSV (PCR) (Not Detectd) SARS-CoV-2 (PCR) (Not Detectd) 10/21/23 10/21/23 10/21/23 Range/Units 08:48 10:53 11:40 WBC (3.8-10.6) k/uL RBC (3.80-5.40) m/uL Hgb (11.4-16.0) gm/dL Hct (34.0-46.0) % MCV (80.0-100.0) fL MCH (25.0-35.0) pg MCHC (31.0-37.0) g/dL RDW (11.5-15.5) % Plt Count (150-450) k/uL MPV Neutrophils % % Lymphocytes % % Monocytes % % Eosinophils % % Basophils % % Neutrophils # (1.3-7.7) k/uL Lymphocytes # (1.0-4.8) k/uL Monocytes # (0-1.0) k/uL Eosinophils # (0-0.7) k/uL Basophils # (0-0.2) k/uL Hypochromasia Sodium (137-145) mmol/L Potassium (3.5-5.1) mmol/L Chloride (98-107) mmol/L Carbon Dioxide (22-30) mmol/L Anion Gap mmol/L BUN (7-17) mg/dL Creatinine (0.52-1.04) mg/dL Est GFR (CKD-EPI)AfAm (>60 ml/min/1.73 sqM) Est GFR (CKD-EPI)NonAf (>60 ml/min/1.73 sqM) Glucose (74-99) mg/dL POC Glucose (mg/dL) 554 H (70-110) mg/dL POC Glu Pharmacognosist ID Rosalinda Guzman Plasma Lactic Acid Travis (0.7-2.0) mmol/L Calcium (8.4-10.2) mg/dL Magnesium (1.6-2.3) mg/dL Total Bilirubin (0.2-1.3) mg/dL AST (14-36) U/L ALT (4-34) U/L Alkaline Phosphatase (38-126) U/L Total Protein (6.3-8.2) g/dL Albumin (3.5-5.0) g/dL Amylase (30-110) U/L Lipase (23-300) U/L Urine Color Colorless Urine Appearance Clear (Clear) Urine pH 6.5 (5.0-8.0) Ur Specific [place] 1.033 (1.001-1.035) Urine Protein 2+ H (Negative) Urine Glucose (UA) 4+ H (Negative) Urine Ketones 1+ H (Negative) Urine Blood Trace H (Negative) Urine Nitrite Negative (Negative) Urine Bilirubin Negative (Negative) Urine Urobilinogen <2.0 (<2.0) mg/dL Ur Leukocyte Esterase Negative (Negative) Urine RBC 4 (0-5) /hpf Ur Squamous Epith Cells <1 (0-4) /hpf Hyaline Casts 1 (0-2) /lpf Influenza Type A (PCR) Not Detected (Not Detectd) Influenza Type B (PCR) Not Detected (Not Detectd) RSV (PCR) Not Detected (Not Detectd) SARS-CoV-2 (PCR) Not Detected (Not Detectd) Disposition Clinical Impression: Intractable abdominal pain, Diabetic gastroparesis Disposition: ADMITTED IP TO THIS [facility] Time of Disposition: 12:54
[2023-10-21] MEDS: SODIUM CHLORIDE 0.9% 1,000 ML IV STA ×2 (08:42→13:10)
[2023-10-21] MEDS: PROCHLORPERAZINE INJ 10 MG/2 ML VIAL IVP STA (08:43)
[2023-10-21] MEDS: HYDROmorphone 1 MG/ML 1 ML SYRINGE IVP STA (08:43)
[2023-10-21 08:59] LABS: Basophils # (A) 0.2 k/uL (0-0.2); Basophils % (A) 1 %; Eosinophils % (A) 0 %; HCT 41.2 % (34.0-46.0); HGB 12.4 gm/dL (11.4-16.0); Hypochromasia Slight; Lymphocytes # (A) 1.2 k/uL (1.0-4.8); Lymphocytes % (A) 7 %; MCH 27.3 pg (25.0-35.0); Monocytes # (A) 0.3 k/uL (0-1.0); Monocytes % (A) 2 %; Neutrophils # (A) 15.3 k/uL (1.3-7.7); Neutrophils % (A) 89 %; Platelet Count 583 k/uL (150-450); RBC 4.52 m/uL (3.80-5.40); RDW 14.6 % (11.5-15.5); WBC 17.2 k/uL (3.8-10.6)
[2023-10-21 09:09] LABS: ALT 137 U/L (4-34); AST 47 U/L (14-36); African American GFR (CKD) >90 (>60 ml/min/1.73 sqM); Albumin 3.3 g/dL (3.5-5.0); Alkaline Phosphatase 169 U/L (38-126); Amylase 142 U/L (30-110); Anion Gap 8 mmol/L; Blood Urea Nitrogen 34 mg/dL (7-17); Calcium 9.1 mg/dL (8.4-10.2); Carbon Dioxide 30 mmol/L (22-30); Chloride 92 mmol/L (98-107); Lipase 566 U/L (23-300); Non-African American GFR(CKD) >90 (>60 ml/min/1.73 sqM); Potassium 5.1 mmol/L (3.5-5.1); Sodium 130 mmol/L (137-145); Total Bilirubin 0.5 mg/dL (0.2-1.3); Total Protein 6.4 g/dL (6.3-8.2)
[2023-10-21 09:18] LABS: Glucose 776 mg/dL (74-99)
[2023-10-21 09:38] LABS: Appearance,Urine Clear (Clear); Bilirubin,Urine Negative (Negative); Blood,Urine Trace (Negative); Color,Urine Colorless; Glucose,Urine (UA) 4+ (Negative); Hyaline Casts,Urine 1 /lpf (0-2); Ketones,Urine 1+ (Negative); Leukocyte Esterase,Urine Negative (Negative); Nitrite,Urine Negative (Negative); PH, Urine 6.5 (5.0-8.0); Protein,Urine 2+ (Negative); RBC,Urine 4 /hpf (0-5); Specific Gravity,Urine 1.033 (1.001-1.035); Squamous Epithelial Cell,Urine <1 /hpf (0-4); Urobilinogen,Urine <2.0 mg/dL (<2.0)
[2023-10-21] MEDS: droPERidol 5 MG/2 ML VIAL IVP ONE (10:02)
[2023-10-21] MEDS: INSULIN REGULAR 100 UNIT/ML VIAL (IV) IV ONE ×2 (10:02→12:55)
--- NOTE | 2023-10-21 10:09 | US ---
EXAMINATION TYPE: US abdomen limited DATE OF EXAM: 10/21/2023 COMPARISON: 10/06/2023. CLINICAL INDICATION: Female, 53 years old with history of Elevated LFTs and elevated lipase; Elevated LFTS TECHNIQUE: Multiple sonographic images of the right upper quadrant are obtained. FINDINGS: EXAM MEASUREMENTS: Liver Length: 14.7 cm Gallbladder Wall: .2 cm CBD: .3 cm Right Kidney: 10.1 x 4.5 x 4.3 cm PARTY SUPPLY SPECIALIST NOTES: Pancreas: wnl Liver: wnl Gallbladder: No evidence for cholelithiasis or biliary duct dilation. Evidence for sonographic Mendoza's sign: no CBD: wnl Right Kidney: No hydronephrosis or masses seen IMPRESSION: No evidence for acute process.
[2023-10-21 11:42] LABS: Glucose,Whole Blood 554 mg/dL (70-110)
[2023-10-21] MEDS ORDERED: NALOXONE 0.4 MG/ML 1 ML VIAL IV PRN (12:54)
[2023-10-21] MEDS ORDERED: ACETAMINOPHEN TAB 325 MG TAB PO PRN ×2 (12:54→12:55)
[2023-10-21] MEDS: ONDANSETRON 4 MG/2 ML VIAL IVP STA (12:54)
[2023-10-21] MEDS ORDERED: METOCLOPRAMIDE 5 MG/ML 2 ML VIAL IVP PRN (12:55)
[2023-10-21] MEDS: HYDROcodone/APAP 7.5-325MG 1 EACH TAB PO PRN (13:50)
[2023-10-21] MEDS: SODIUM CHLORIDE 0.9% 1,000 ML IV SCH (13:51)
[2023-10-21] MEDS: HYDROmorphone 1 MG/ML 1 ML SYRINGE IVP PRN (15:16)
[2023-10-21] MEDS: METOCLOPRAMIDE 10 MG TAB PO SCH (17:54)
[2023-10-21] MEDS: CHOLESTYRAMINE (WITH SUGAR) 4 GM PACKET PO SCH (17:55)
[2023-10-21] MEDS: PANTOPRAZOLE 40 MG TABLET PO SCH (17:55)
[2023-10-21] MEDS: INSULIN ASPART (NovoLOG) 100 UNIT/ML VIAL SQ SCH (17:55)
[2023-10-21] MEDS: IPRATROPIUM-ALBUTEROL 3 ML NEB INHALATION SCH (20:18)
[2023-10-21] MEDS: MIRTAZAPINE 15 MG TAB PO SCH (20:27)
[2023-10-21] MEDS: SODIUM CHLORIDE 0.9% 1,000 ML IV ONE (20:29)
[2023-10-22 01:02] LABS: Glucose,Whole Blood 110 mg/dL (70-110)
[2023-10-22 07:04] LABS: Glucose,Whole Blood 200 mg/dL (70-110)
--- NOTE | 2023-10-22 07:32 | HP ---
HISTORY AND PHYSICAL This 53-year-old white female came to the emergency room for abdominal pain and nausea. ART / JULIANEN: [id number] /
--- NOTE | 2023-10-22 08:14 | HP ---
HISTORY AND PHYSICAL HISTORY OF PRESENT ILLNESS: A 53-year-old female, came to the emergency room for abdominal pain, nausea, and vomiting, history of gastroparesis, discharged from this facility 4 days ago with tube feedings resumed, gastric stimulator was placed. HOME MEDICINES: Include, 1. Xanax. 2. Lipitor. 3. Cymbalta. 4. Humalog. 5. DuoNeb. 6. Remeron. 7. Folic acid. 8. [place]. 9. Losartan/HCTZ. ALLERGIES: Fentanyl. REVIEW OF SYSTEMS: 14-point review of systems otherwise negative. PAST MEDICAL HISTORY: Diabetes mellitus, hypertension, musculoskeletal disorder, frozen shoulder, neuropathy, urine VRE, ESBL. PAST SURGICAL HISTORY: Orthopedic surgery, tubal ligation. SOCIAL HISTORY: Current everyday smoker. FAMILY HISTORY: Father, adopted. Mother, adopted. PHYSICAL EXAMINATION: VITAL SIGNS: Temperature 98, pulse is 105-126, respiratory rate 16-18, blood pressure 74 to 87 over 60s to 70s, O2 of 96% to 97%. NEUROLOGIC: Cranial nerves are intact. PSYCH: Fair mood and affect. SKIN: Warm and dry. CARDIOVASCULAR: S1, S2. GI: Soft. LABORATORY DATA: Sodium 130. White count 17.2, hemoglobin is 12.4. Sugars 776, elevated lipase at 556, amylase 142. ASSESSMENT: 1. Intractable abdominal pain-diabetic gastroparesis. 2. Insulin dependent diabetes mellitus. 3. Elevated liver enzymes. 4. Pancreatitis. Continue current treatment. PROGNOSIS: Guarded. Ambulate as tolerated. Please see further orders. Get Surgery consult for pancreatitis. Fluid rehydration. Accu-Chek protocol. Continue home medications. MMODL / IJN: [id number] /
[2023-10-22] MEDS: FOLIC ACID 1 MG TAB PO SCH (09:36)
[2023-10-22] MEDS: ATORVASTATIN 20 MG TAB PO SCH (09:36)
[2023-10-22] MEDS: PANTOPRAZOLE 40 MG/10 ML VIAL IV SCH (09:36)
[2023-10-22] MEDS: DULoxetine HCL 30 MG CAPSULE.DR PO SCH (09:36)
[2023-10-22] MEDS: ONDANSETRON 4 MG TAB PO SCH (09:37)
[2023-10-22] MEDS: INSULIN DETEMIR (LEVEMIR) 100 UNIT/ML SYR SQ SCH (09:38)
[2023-10-22] MEDS: LOSARTAN-HCTZ 50-12.5 MG 1 EACH TAB PO SCH (10:14)
[2023-10-22 12:04] LABS: Glucose,Whole Blood 207 mg/dL (70-110)
--- NOTE | 2023-10-22 13:04 | P.GSCN ---
History of Present Illness Consult date: 10/22/23 History of present illness: CHIEF COMPLAINT: Abdominal pain HISTORY OF PRESENT ILLNESS: This is a patient with a known history of chronic abdominal pain and gastroparesis and uncontrolled diabetes mellitus. Patient receives nutrition through her PEG tube as well as she is able to take some oral intake in. Patient was just hospitalized and discharged about 4 to days ago at that time she had colonoscopy completed which did reveal colon polyps. Patient presents back to the hospital with complaints of nausea vomiting and abdominal pain. She has also been having diarrhea. She is scheduled to follow-up at [facility] for gastric stimulator on November 01, 2023. Patient was found to have evidence of pancreatitis and had mildly elevated LFTs. Abdominal ultr asound had showed no evidence of gallstones. Patient has diffuse abdominal pain. Patient has frequent hospitalizations. Patient denies any prior history of pancreatitis. PAST MEDICAL HISTORY: Uncontrolled diabetes mellitus, gastroparesis, hypertension PAST SURGICAL HISTORY: See below MEDICATIONS: See below ALLERGIES: See below SOCIAL HISTORY: No illicit drug use. REVIEW OF SYSTEMS: CONSTITUTIONAL: Denies fever or chills. HEENT: Denies blurred vision, vision changes, or eye pain. Denies hemoptysis CARDIOVASCULAR: Denies chest pain or pressure. RESPIRATORY: No shortness of breath. GASTROINTESTINAL: See HPI for pertinent findings HEMATOLOGIC: Denies bleeding disorders. GENITOURINARY: Denies any blood in urine or increased urinary frequency. SKIN: Denies pruitis. Denies rash. PHYSICAL EXAM: VITAL SIGNS: Reviewed GENERAL: Well-developed in no acute distress. ABDOMEN: Soft. Nondistended. Diffuse tenderness PEG tube site clean dry and intact. Patient does have epigastric tenderness NEUROLOGIC: Alert and oriented. Cranial nerves II through XII grossly intact. LABORATORY DATA: WBC 17.2 HGB 12.4 plt 583 Na 130 K 5.1 Cr 0.66 glucose 776 on admission now 207 Lactic acid 1.8 Total bili 0.5 AST 47 ALT 137 alk phos 169 Lipase 566 amylase 142 Influenza not detected RSV not detected COVID-19 not detected IMAGING: Abdominal ultrasound per radiologist no evidence for acute process. No cholelithiasis or biliary ductal dilation ASSESSMENT: 1. Abdominal pain with nausea, vomiting and diarrhea 2. Acute pancreatitis. Dr. Garzon reviewed abdominal ultrasound imaging. Per his interpretation he reported evidence of gallbladder sludge. Patient does have elevated LFTs. Biochemically it looks as though she passed a gallstone. 3. Elevated LFTs 4. History of chronic abdominal pain 5. Uncontrolled diabetes mellitus PLAN: -Recommend outpatient laparoscopic cholecystectomy when patient is medically stable -Continue clear liquids -ok to resume tube feeds -Repeat labs in a.m. -Continue to work on blood sugar control Physician Pharmaceutical Development Technician note has been reviewed by physician. Signing provider agrees with the documented findings, assessment, and plan of care. 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 MDRO Source:: Urine VRE and ESBL, MRSA-ABD Past Surgical History: Orthopedic Surgery, Tubal Ligation Additional Past Surgical History / Comment(s): rt shoulder Past Anesthesia/Blood Transfusion Reactions: No Reported Reaction Additional Past Anesthesia/Blood Transfusion Reaction / Comm: UNK FAMILY HX Past Psychological History: Anxiety Smoking Status: Current every day smoker Past Alcohol Use History: None Reported Additional Past Alcohol Use History / Comment(s): STARTED SMOKING 1987, smokes about 6 cigs/day Past Drug Use History: None Reported Additional Drug Use History / Comment(s): Patient denies using marijuana. - Past Family History Father History Unknown: Yes Additional Family Medical History / Comment(s): unknown-adopted Mother History Unknown: Yes Additional Family Medical History / Comment(s): unknown- adopted Medications and Allergies Home Medications Medication Instructions Recorded Confirmed Type ALPRAZolam [Xanax] 0.25 mg PO BID PRN 05/12/23 10/21/23 History Atorvastatin [Lipitor] 20 mg PO DAILY 05/12/23 10/21/23 History DULoxetine HCL [Cymbalta] 30 mg PO DAILY 05/12/23 10/21/23 History Insulin Lispro [humaLOG Kwikpen] 2 unit SQ AC-TID 05/12/23 10/21/23 History Ipratropium-Albuterol Nebulize 3 ml INHALATION RT-BID 05/12/23 10/21/23 History [Duoneb 0.5 mg-3 mg/3 ml Soln] Mirtazapine [Remeron] 30 mg PO HS 05/12/23 10/21/23 History Metoclopramide [Reglan] 10 mg PO ACHS 30 Days #120 tab 05/15/23 10/21/23 Rx Pantoprazole [Protonix] 40 mg PO AC-BID 30 Days #60 tab 05/21/23 10/21/23 Rx Folic Acid 1 mg PO DAILY 06/15/23 10/21/23 History Ondansetron [Zofran] 4 mg PO DAILY 30 Days #30 tab 06/26/23 10/21/23 Rx HYDROcodone/APAP 7.5-325MG [[place] 1 tab PO TID PRN 08/25/23 10/21/23 History 7.5-325] Insulin Glargine [Lantus Vial] 10 unit SQ DAILY #0 09/20/23 10/21/23 Rx Losartan-Hctz 50-12.5 mg [Hyzaar 1 tab PO DAILY 09/26/23 10/21/23 History 50-12.5] Acetaminophen Tab [Tylenol] 650 mg PO Q6HR PRN tab 10/16/23 10/21/23 Rx Cholestyramine (with Sugar) 4 gm PO BID@1000,1800 30 Days #60 10/16/23 10/21/23 Rx [Questran Packet] packet Loperamide [Imodium] 2 mg PO QID PRN cap 10/16/23 10/21/23 Rx Allergies Allergy/AdvReac Type Severity Reaction Status Date / Time fentanyl Allergy Unknown Verified 10/21/23 11:03 Surgical - Exam Vital Signs Temp Pulse Resp BP Pulse Ox 98 F 126 H 18 87/63 98 10/21/23 08:08 10/21/23 08:08 10/21/23 08:08 10/21/23 08:08 10/21/23 08:08 Results - Labs 10/21/23 08:27 10/21/23 08:27 Abnormal Lab Results - Last 24 Hours (Table) 10/21/23 10/22/23 Range/Units 12:41 07:01 POC Glucose (mg/dL) 200 H (70-110) mg/dL Osmolality 319 H (275-295) mOsm/kg
[2023-10-22 17:16] LABS: Glucose,Whole Blood 46 mg/dL (70-110)
[2023-10-22 17:36] LABS: Glucose,Whole Blood 41 mg/dL (70-110)
[2023-10-22] MEDS: DEXTROSE 50% SYRINGE 50 ML IVP STA (17:36)
[2023-10-22] MEDS: DEXTROSE 50% SYRINGE 50 ML IVP ONE (17:38)
[2023-10-22 17:45] LABS: Glucose,Whole Blood 201 mg/dL (70-110)
[2023-10-22 20:24] LABS: Glucose,Whole Blood 263 mg/dL (70-110)
[2023-10-22] MEDS: LOPERAMIDE 2 MG CAP PO PRN (20:39)
[2023-10-23 04:21] LABS: Glucose,Whole Blood 212 mg/dL (70-110)
[2023-10-23 07:38] LABS: Glucose,Whole Blood 203 mg/dL (70-110)
--- NOTE | 2023-10-23 10:44 | P.PN ---
Subjective Progress Note Date: 10/23/23 CHIEF COMPLAINT: Abdominal pain HISTORY OF PRESENT ILLNESS: Patient continues to complain of abdominal pain. She does report nausea. No vomiting. Afebrile. Lipase improved from 566 to 36. Labs for today pending PHYSICAL EXAM: VITAL SIGNS: Reviewed. GENERAL: no acute distress. ABDOMEN: Soft. Nondistended. Diffuse tenderness. Tenderness in the right upper quadrant. PEG tube site clean dry and intact NEUROLOGIC: Alert and oriented. Cranial nerves II through XII grossly intact. ASSESSMENT: 1. Abdominal pain with nausea, vomiting and diarrhea 2. Acute pancreatitis. Dr. Garzon reviewed abdominal ultrasound imaging. Per his interpretation he reported evidence of gallbladder sludge. Patient does have elevated LFTs. Biochemically it looks as though she passed a gallstone. 3. Elevated LFTs 4. History of chronic abdominal pain 5. Uncontrolled diabetes mellitus 6. History of gastroparesis PLAN: -Patient scheduled for upper GI today for further evaluation of nausea -Patient scheduled for laparoscopic cholecystectomy tomorrow 10/24/[address] Garzon -Tube feeds currently held for upper GI today -N.p.o. after midnight Physician Robotics Engineer note has been reviewed by physician. Signing provider agrees with the documented findings, assessment, and plan of care. Objective - Vital Signs Vital signs: Vital Signs Temp 97.8 F 10/23/23 07:51 Pulse 88 10/23/23 08:55 Resp 18 10/23/23 08:45 BP 114/69 10/23/23 07:51 Pulse Ox 100 10/23/23 07:51 FiO2 Intake & Output 10/22/23 10/23/23 10/23/23 18:59 06:59 18:59 Intake Total 1080 Balance 1080 Weight 35.38 kg 33 kg Intake: Oral 1080 Other: Voiding Method Bedside Commode Bedside Commode Bedside Commode # Voids 3 - Labs CBC & Chem 7: 10/21/23 08:27 10/21/23 08:27 Labs: Abnormal Lab Results - Last 24 Hours (Table) 10/22/23 10/22/23 10/22/23 Range/Units 11:59 17:12 17:30 POC Glucose (mg/dL) 207 H 46 L 41 L (70-110) mg/dL 10/22/23 10/22/23 10/23/23 Range/Units 17:43 20:23 04:20 POC Glucose (mg/dL) 201 H 263 H 212 H (70-110) mg/dL 10/23/23 Range/Units 07:29 POC Glucose (mg/dL) 203 H (70-110) mg/dL
[2023-10-23 10:55] LABS: Basophils # (A) 0.09 X 10*3/uL (0.00-0.10); Basophils % (A) 1.1 %; Eosinophils # (A) 0.26 X 10*3/uL (0.04-0.35); Eosinophils % (A) 3.2 %; HCT 31.2 % (37.2-46.3); HGB 9.9 g/dL (12.0-15.0); Lymphocytes # (A) 1.62 X 10*3/uL (0.90-5.00); Lymphocytes % (A) 19.7 %; MCH 28.1 pg (27.0-32.0); MCHC 31.7 g/dL (32.0-37.0); MCV 88.6 FL (80.0-97.0); Mean Platelet Volume 9.7 FL (9.5-12.2); Monocytes # (A) 0.48 X 10*3/uL (0.20-1.00); Monocytes % (A) 5.8 %; NRBC Per 100 WBC 0 X 10*3/uL (0.00-0.01); Neutrophils # (A) 5.77 X 10*3/uL (1.80-7.70); Platelet Count 358 X 10*3/uL (140-440); RBC 3.52 X 10*6/uL (4.10-5.20); RDW 14.5 % (11.5-14.5); WBC 8.24 X 10*3/uL (4.50-10.00)
[2023-10-23 10:59] LABS: ALT 67 U/L (8-44); AST 27 U/L (13-35); Albumin 2.8 g/dL (3.8-4.9); Albumin/Globulin Ratio 1.22 Ratio (1.60-3.17); Alkaline Phosphatase 109 U/L (41-126); BUN/Creat Ratio 19.17 Ratio (12.00-20.00); Blood Urea Nitrogen 11.5 mg/dL (9.0-27.0); Calcium 8.4 mg/dL (8.7-10.3); Carbon Dioxide 19.5 mmol/L (21.6-31.8); Chloride 106 mmol/L (96-109); Globulin 2.3 g/dL (1.6-3.3); Glucose 193 mg/dL (70-110); Potassium 4.3 mmol/L (3.5-5.5); Sodium 134 mmol/L (135-145); Total Bilirubin <0.2 mg/dL (0.3-1.2); Total Protein 5.1 g/dL (6.2-8.2)
[2023-10-23 11:01] LABS: Lipase 72 U/L (14-63)
[2023-10-23 12:23] LABS: Glucose,Whole Blood 175 mg/dL (70-110)
[2023-10-23] MEDS: MEROPENEM 1 GM in SODIUM CHLORIDE 0.9% 100 ML IVPB SCH (12:29)
--- NOTE | 2023-10-23 14:58 | FL ---
EXAMINATION TYPE: FL UGI w esophagus DATE OF EXAM: 10/23/2023 COMPARISON: NONE HISTORY: Pain TECHNIQUE: A single contrast UGI study is performed. A total of 2 minutes and 34 seconds of fluoros copic time was utilized during procedure and 34 images obtained. Total dose area product (DAP) in uGy *m?, mGy*cm? (or similar): Not provided. FINDINGS: Packaging Sales Representative image of the abdomen shows ossifications in the soft tissues of the neck likely vasc ular. There appears to be a gastrostomy tube.. Single contrast imaging demonstrates delayed passage of contrast within the dilated esophagus. There appears to be a localized area of narrowing at the GE junction. Limited assessment single contrast technique demonstrates the stomach demonstrated mild fold thickeni ng. Evaluation with direct visualization would be required to exclude small neoplasm. There was a rel atively quick passage of contrast from the stomach into the duodenum with the duodenal bulb and sweep have a normal appearance. IMPRESSION: 1. There is delay in passage across the distal esophagus which has a localized area of narrowing for which direct visualization is recommended. 2. Assessment of stomach is limited due to presence of gastrostomy tube and incomplete distention. Mi ld diffuse fold thickening or gastritis in the differential diagnosis. 3. There is relatively quick passage of contrast from the stomach into the duodenum. If there is conc siddharth for gastroparesis a nuclear medicine exam could be performed as clinically warranted.
[2023-10-23 17:18] LABS: Glucose,Whole Blood 113 mg/dL (70-110)
[2023-10-23 20:15] LABS: Glucose,Whole Blood 115 mg/dL (70-110)
--- NOTE | 2023-10-23 23:11 | P.CONS ---
History of Present Illness - Reason for Consult Consult date: 10/23/23 Leukocytosis Requesting physician: Dell Pike - Chief Complaint Abdominal pain and vomiting x few days - History of Present Illness Patient is a 53-year-old female with a past medical history significant for diabetes mellitus hypertension did have chronic abdominal pain and gastroparesis for the patient did have a PEG tube placement for nutrition recent admission to the hospital and treated for ESBL UTI patient presenting back to the hospital with abdominal pain nausea and vomiting symptom has been getting worse and the patient has been discharged from the hospital patient was describing pain to be sharp across lower abdominal area moderate to severe intensity without any radiation with associated nausea vomiting and did have some diarrhea patient on presentation to the hospital was afebrile and no fever have recorded subsequently patient was not tachycardic hypotensive or hypoxic did have a white count of 17.2 creatinine 0.66 liver enzymes mildly elevated amylase lipase was elevated urine has been negative influenza RSV COVID testing was negative patient did have abdominal ultrasound, but no evidence of cholelithiasis or biliary sludge patient has been evaluated by general surgery concerning for possible biliary sludge and may have passed a stone infectious he was consulted because of elevated white count and need for antibiotic therapy Review of Systems Positive point and negatives has been mentioned in the HPI, complete review of systems was performed and all other systems are negative 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 MDRO Source:: Urine VRE and ESBL, MRSA-ABD Past Surgical History: Orthopedic Surgery, Tubal Ligation Additional Past Surgical History / Comment(s): rt shoulder Past Anesthesia/Blood Transfusion Reactions: No Reported Reaction Additional Past Anesthesia/Blood Transfusion Reaction / Comm: UNK FAMILY HX Past Psychological History: Anxiety Smoking Status: Current every day smoker Past Alcohol Use History: None Reported Additional Past Alcohol Use History / Comment(s): STARTED SMOKING 1987, smokes about 6 cigs/day Past Drug Use History: None Reported Additional Drug Use History / Comment(s): Patient denies using marijuana. - Past Family History Father History Unknown: Yes Additional Family Medical History / Comment(s): unknown-adopted Mother History Unknown: Yes Additional Family Medical History / Comment(s): unknown- adopted Medications and Allergies Home Medications Medication Instructions Recorded Confirmed Type ALPRAZolam [Xanax] 0.25 mg PO BID PRN 05/12/23 10/21/23 History Atorvastatin [Lipitor] 20 mg PO DAILY 05/12/23 10/21/23 History DULoxetine HCL [Cymbalta] 30 mg PO DAILY 05/12/23 10/21/23 History Insulin Lispro [humaLOG Kwikpen] 2 unit SQ AC-TID 05/12/23 10/21/23 History Ipratropium-Albuterol Nebulize 3 ml INHALATION RT-BID 05/12/23 10/21/23 History [Duoneb 0.5 mg-3 mg/3 ml Soln] Mirtazapine [Remeron] 30 mg PO HS 05/12/23 10/21/23 History Metoclopramide [Reglan] 10 mg PO ACHS 30 Days #120 tab 05/15/23 10/21/23 Rx Pantoprazole [Protonix] 40 mg PO AC-BID 30 Days #60 tab 05/21/23 10/21/23 Rx Folic Acid 1 mg PO DAILY 06/15/23 10/21/23 History Ondansetron [Zofran] 4 mg PO DAILY 30 Days #30 tab 06/26/23 10/21/23 Rx HYDROcodone/APAP 7.5-325MG [[place] 1 tab PO TID PRN 08/25/23 10/21/23 History 7.5-325] Insulin Glargine [Lantus Vial] 10 unit SQ DAILY #0 09/20/23 10/21/23 Rx Losartan-Hctz 50-12.5 mg [Hyzaar 1 tab PO DAILY 09/26/23 10/21/23 History 50-12.5] Acetaminophen Tab [Tylenol] 650 mg PO Q6HR PRN tab 10/16/23 10/21/23 Rx Cholestyramine (with Sugar) 4 gm PO BID@1000,1800 30 Days #60 10/16/23 10/21/23 Rx [Questran Packet] packet Loperamide [Imodium] 2 mg PO QID PRN cap 05/01/24 05/06/24 Rx Prochlorperazine Maleate 10 mg PO AC-BID 30 Days #60 tab 10/30/23 Rx Allergies Allergy/AdvReac Type Severity Reaction Status Date / Time fentanyl Allergy Unknown Verified 10/21/23 11:03 Physical Exam Vitals: Vital Signs Temp Pulse Pulse Resp BP Pulse Ox 10/23/23 10:23 84 10/23/23 08:55 88 10/23/23 08:45 100 18 10/23/23 07:51 97.8 F 100 18 114/69 100 10/23/23 02:00 98.2 F 112 H 16 89/59 96 10/22/23 21:52 76 10/22/23 21:41 76 10/22/23 20:35 115 H 139/76 10/22/23 20:00 97.5 F L 109 H 16 89/61 96 10/22/23 13:36 97.7 F 106 H 16 103/68 96 Intake and Output 10/22/23 10/23/23 10/23/23 22:59 06:59 14:59 Intake Total 1080 Balance 1080 Intake: Oral 1080 Other: Voiding Method Bedside Commode Bedside Commode # Voids 3 Weight 33 kg GENERAL DESCRIPTION: Middle-aged female lying in bed, no distress. No tachypnea or accessory muscle of respiration use. HEENT: Shows Pallor , no scleral icterus. Oral mucous membrane is dry. No pharyngeal erythema or thrush NECK: Trachea central, no thyromegaly. LUNGS: Unlabored breathing. Clear to auscultation anteriorly. No wheeze or crackle. HEART: S1, S2, regular rate and rhythm. No loud murmur ABDOMEN: Soft, mild tenderness EXTREMITIES: No edema of feet. SKIN: No rash, no masses palpable. NEUROLOGICAL: The patient is awake, alert, oriented x3, mood and affect normal. Results CBC & Chem 7: 10/29/23 08:05 10/31/23 07:15 Labs: Abnormal Lab Results - Last 24 Hours (Table) 10/22/23 10/22/23 10/22/23 Range/Units 11:59 17:12 17:30 POC Glucose (mg/dL) 207 H 46 L 41 L (70-110) mg/dL 10/22/23 10/22/23 10/23/23 Range/Units 17:43 20:23 04:20 POC Glucose (mg/dL) 201 H 263 H 212 H (70-110) mg/dL 10/23/23 Range/Units 07:29 POC Glucose (mg/dL) 203 H (70-110) mg/dL Assessment and Plan (1) Cholecystitis Status: Acute Code(s): K81.9 - CHOLECYSTITIS, UNSPECIFIED SNOMED Code(s): 64571898 (2) Leukocytosis Status: Acute Code(s): D72.829 - ELEVATED WHITE BLOOD CELL COUNT, UNSPECIFIED SNOMED Code(s): 704241385 Plan: 1patient presented to hospital abdominal pain in this patient who did have elevated white count mildly elevated liver enzymes on admission per surgery interpretation of the ultrasound concerning for biliary sludge and may have passed a stone concern for possible cholangitis and will need to cover for the enteric gram-negative in this patient with recent ESBL infection we will try to cover for the residual gram-negative while waiting for the workup to be completed 2-we will obtain blood culture check a CRP and procalcitonin 3-we will empirically start patient on meropenem 1 g every 8 hours We will follow on clinical condition and cultures to further adjust medication if needed Thank you for this consultation we will follow the patient along with you Dictation was produced using [employer] dictation software. please excuse any grammatical, word or spelling errors. Time with Patient: Greater than 30
--- NOTE | 2023-10-24 01:22 | PN ---
PROGRESS NOTE SUBJECTIVE: This is a 53-year-old white female, had upper GI barium swallow today which is delayed passage across the distal esophagus, localized esophageal narrowing, for which direct visualization is recommended. Assessment of stomach is limited due to presence of gastrostomy tube and distention, mild diffuse fold thickening and gastritis quick passage of contrast from the stomach into the duodenum, concern for gastroparesis. Obviously, she has had it for years. Wait for surgery to take her gallbladder out tomorrow. Prognosis is guarded. Insulin-dependent diabetes type 1, on home medication. Her pancreatitis is improved. Abdominal pain with nausea, vomiting, diarrhea is chronic. Elevated LFTs. History of chronic abdominal pain, uncontrolled diabetes mellitus type 1, gastroparesis, upper GI today, and laparoscopic cholecystectomy tomorrow, currently held for upper GI. PROGNOSIS: Guarded. MMODL / IJN: [id number] /
[2023-10-24] MEDS: ONDANSETRON 4 MG/2 ML VIAL IVP PRN (01:30)
[2023-10-24 06:35] LABS: Basophils # (A) 0.1 k/uL (0-0.2); Basophils % (A) 1 %; Eosinophils # (A) 0.3 k/uL (0-0.7); Eosinophils % (A) 6 %; HCT 35.5 % (34.0-46.0); Lymphocytes # (A) 1.6 k/uL (1.0-4.8); Lymphocytes % (A) 26 %; MCH 27.2 pg (25.0-35.0); MCHC 30.9 g/dL (31.0-37.0); MCV 88.1 fL (80.0-100.0); Mean Platelet Volume 7.6; Monocytes # (A) 0.5 k/uL (0-1.0); Monocytes % (A) 8 %; Neutrophils # (A) 3.5 k/uL (1.3-7.7); Neutrophils % (A) 57 %; Platelet Count 350 k/uL (150-450); RBC 4.02 m/uL (3.80-5.40); RDW 14.7 % (11.5-15.5); WBC 6.1 k/uL (3.8-10.6)
[2023-10-24 07:33] LABS: ALT 64 U/L (4-34); AST 46 U/L (14-36); African American GFR (CKD) >90 (>60 ml/min/1.73 sqM); Albumin 2.5 g/dL (3.5-5.0); Albumin/Globulin Ratio 0.8; Alkaline Phosphatase 124 U/L (38-126); Anion Gap 4 mmol/L; Blood Urea Nitrogen 7 mg/dL (7-17); Calcium 8.4 mg/dL (8.4-10.2); Carbon Dioxide 20 mmol/L (22-30); Chloride 112 mmol/L (98-107); Glucose 136 mg/dL (74-99); Non-African American GFR(CKD) >90 (>60 ml/min/1.73 sqM); Potassium 3.8 mmol/L (3.5-5.1); Sodium 136 mmol/L (137-145); Total Bilirubin 0.2 mg/dL (0.2-1.3); Total Protein 5.5 g/dL (6.3-8.2)
[2023-10-24 07:38] LABS: Glucose,Whole Blood 135 mg/dL (70-110)
[2023-10-24] MEDS: IV FLUID CONTINUATION 1,000 ML IV ONE (10:08)
[2023-10-24] MEDS ORDERED: MIDAZOLAM 2 MG/2 ML VIAL ONE (10:25)
[2023-10-24] MEDS ORDERED: PROPOFOL 10 MG/ML 20 ML VIAL IV ONE (10:25)
[2023-10-24] MEDS ORDERED: HYDROmorphone (PF) 1 MG/ML ONE (10:25)
[2023-10-24] MEDS ORDERED: ROCURONIUM 10 MG/ML (5 ML VIAL) IV ONE (10:25)
[2023-10-24] MEDS ORDERED: LABETALOL 5 MG/ML VIAL MDV ONE (10:25)
[2023-10-24] MEDS ORDERED: HEPARIN SODIUM,PORCINE 5,000 UNIT/ML 1 ML VIAL ONE (10:25)
[2023-10-24] MEDS ORDERED: SUCCINYLCHOLINE CHLORIDE 200 MG/10 ML VIAL IV ONE (10:25)
[2023-10-24] MEDS ORDERED: LIDOCAINE 1% INJ 10MG/ML (20 ML MDV) ONE (10:25)
[2023-10-24] MEDS ORDERED: NEOSTIGMINE 1 MG/ML 10 ML VIAL ONE (10:25)
[2023-10-24] MEDS ORDERED: GLYCOPYRROLATE 0.2 MG/ML 2 ML VIAL ONE (10:25)
[2023-10-24 10:37] LABS: Glucose,Whole Blood 151 mg/dL (70-110)
[2023-10-24] MEDS: LIDOCAINE 1%-EPI 1:100,000 20 ML VIAL SQ ONE ×2 (10:50→10:56)
--- NOTE | 2023-10-24 10:53 | P.PN ---
Subjective Progress Note Date: 10/24/23 CHIEF COMPLAINT: Abdominal pain HISTORY OF PRESENT ILLNESS: Patient continues to report the same abdominal pain in the right upper quadrant. Tube feeds remain on hold for cholecystectomy today. Afebrile. Mildly tachycardic. WBC 6.1 hemoglobin 11 total bilirubin 0.2 AST 46 ALT 64 Upper GI reported delay in passage across the distal esophagus which has a localized area of narrowing. Recommend direct visualization. Mild diffuse fold thickening or gastritis. There is relative quick passage of contrast from the stomach into the duodenum PHYSICAL EXAM: VITAL SIGNS: Reviewed. GENERAL: no acute distress. ABDOMEN: Soft. Nondistended. Diffuse tenderness. Tenderness in the right upper quadrant. PEG tube site clean dry and intact NEUROLOGIC: Alert and oriented. Cranial nerves II through XII grossly intact. ASSESSMENT: 1. Abdominal pain with nausea, vomiting and diarrhea 2. Acute pancreatitis. Possible gallstone pancreatitis. Dr. Garzon reviewed abdominal ultrasound imaging. Per his interpretation he reported evidence of gallbladder sludge. Patient does have elevated LFTs. Biochemically it looks as though she passed a gallstone. 3. Elevated LFTs 4. History of chronic abdominal pain 5. Uncontrolled diabetes mellitus 6. History of gastroparesis PLAN: -Patient scheduled for upper GI today for further evaluation of nausea -Patient scheduled for laparoscopic cholecystectomy tomorrow 10/24/[address] Garzon -Tube feeds currently held for upper GI today -N.p.o. after midnight Physician Chronic Specialist note has been reviewed by physician. Signing provider agrees with the documented findings, assessment, and plan of care. Objective - Vital Signs Vital signs: Vital Signs Temp 98.2 F 10/24/23 08:00 Pulse 92 10/24/23 08:30 Resp 16 10/24/23 08:00 BP 94/56 10/24/23 08:00 Pulse Ox 96 10/24/23 08:00 FiO2 Intake & Output 10/23/23 10/24/23 10/24/23 18:59 06:59 18:59 Intake Total 240 Balance 240 Weight 35.2 kg Intake: Oral 240 Other: Voiding Method Bedside Commode Bedside Commode # Voids 3 2 - Labs CBC & Chem 7: 10/24/23 06:14 10/24/23 06:14 Labs: Abnormal Lab Results - Last 24 Hours (Table) 05/08/24 05/08/24 05/08/24 Range/Units 06:44 06:44 12:13 RBC 3.52 L (4.10-5.20) X 10*6/uL Hgb 9.9 L (12.0-15.0) g/dL Hct 31.2 L (37.2-46.3) % MCHC 31.7 L (32.0-37.0) g/dL Sodium 134 L (135-145) mmol/L Chloride (98-107) mmol/L Carbon Dioxide 19.5 L (21.6-31.8) mmol/L Creatinine (0.52-1.04) mg/dL Glucose 193 H (70-110) mg/dL POC Glucose (mg/dL) 175 H (70-110) mg/dL Calcium 8.4 L (8.7-10.3) mg/dL Total Bilirubin <0.2 L (0.3-1.2) mg/dL AST (14-36) U/L ALT 67 H (8-44) U/L Total Protein 5.1 L (6.2-8.2) g/dL Albumin 2.8 L (3.8-4.9) g/dL Albumin/Globulin Ratio 1.22 L (1.60-3.17) Ratio Lipase 72 H (14-63) U/L 10/23/23 10/23/23 10/24/23 Range/Units 17:12 20:14 06:14 RBC (4.10-5.20) X 10*6/uL Hgb 11.0 L (12.0-15.0) g/dL Hct (37.2-46.3) % MCHC 30.9 L (32.0-37.0) g/dL Sodium (135-145) mmol/L Chloride (98-107) mmol/L Carbon Dioxide (21.6-31.8) mmol/L Creatinine (0.52-1.04) mg/dL Glucose (70-110) mg/dL POC Glucose (mg/dL) 113 H 115 H (70-110) mg/dL Calcium (8.7-10.3) mg/dL Total Bilirubin (0.3-1.2) mg/dL AST (14-36) U/L ALT (8-44) U/L Total Protein (6.2-8.2) g/dL Albumin (3.8-4.9) g/dL Albumin/Globulin Ratio (1.60-3.17) Ratio Lipase (14-63) U/L 10/24/23 10/24/23 Range/Units 06:14 07:24 RBC (4.10-5.20) X 10*6/uL Hgb (12.0-15.0) g/dL Hct (37.2-46.3) % MCHC (32.0-37.0) g/dL Sodium 136 L (135-145) mmol/L Chloride 112 H (98-107) mmol/L Carbon Dioxide 20 L (21.6-31.8) mmol/L Creatinine 0.50 L (0.52-1.04) mg/dL Glucose 136 H (70-110) mg/dL POC Glucose (mg/dL) 135 H (70-110) mg/dL Calcium (8.7-10.3) mg/dL Total Bilirubin (0.3-1.2) mg/dL AST 46 H (14-36) U/L ALT 64 H (8-44) U/L Total Protein 5.5 L (6.2-8.2) g/dL Albumin 2.5 L (3.8-4.9) g/dL Albumin/Globulin Ratio (1.60-3.17) Ratio Lipase (14-63) U/L
[2023-10-24] MEDS: LACTATED RINGERS 1,000 ML IV ONE (10:56)
--- NOTE | 2023-10-24 11:25 | P.OP ---
Date of Procedure: 10/24/23 Preoperative Diagnosis: cholecystitis Postoperative Diagnosis: cholecystitis Procedure(s) Performed: laparoscopic cholecystectomy Anesthesia: AUGIE Surgeon: Shane Garzon Estimated Blood Loss (ml): 5 Pathology: other (the gallbladder) Condition: stable Disposition: PACU Description of Procedure: The patient was placed on the operating table. The patient received a general endotracheal tube anesthesia. The patients abdomen was prepped and draped in the usual sterile fashion. Through an infraumbilical stab incision, the fascia of the anterior abdominal wall was grasped with a pair of Kochers and then the Veress needle was placed in the peritoneal cavity. Position of the Veress needle was confirmed with positive drop test. The abdomen was then insufflated. After adequate insufflation, the 10 mm trocar was placed in the peritoneal cavity. Following this the laparoscope was placed in the peritoneal cavity. The patient was placed in the head-up, right side up position and then a 5 mm trocar was placed in the right lateral and right subcostal posit ion under direct visualization. A 8 mm trocar was placed in the epigastric position. The gallbladder was grasped in the fundus and infundibulum. Traction on the gallbladder was placed in the lateral and the cephalad positions. The triangle of Calot was visualized.. The cystic duct was bluntly dissected until the union of the cystic duct and common bile duct was seen. A critical view of safety was achieved. The cystic duct was then divided and sealed with the Harmonic scissors. A PDS Endoloop was then placed throughout the cystic duct stump. The cystic artery divided and sealed with the Harmonic scissors. The gallbladder was then removed from the liver bed using Harmonic scissors. The gallbladder was then extracted through the epigastric port site. Operative field was checked for any bleeding spots and Harmonic scissors was used to coagulate the liver bed. The abdomen was irrigated. The trocars were removed. The skin was closed using interrupted 3-0 Vicryl suture. Dermabond dressing were applied. The patient tolerated the procedure well.
[2023-10-24 12:43] LABS: Glucose,Whole Blood 184 mg/dL (70-110)
[2023-10-24 17:11] LABS: Glucose,Whole Blood 147 mg/dL (70-110)
--- NOTE | 2023-10-24 17:21 | P.PN ---
Subjective Progress Note Date: 10/24/23 Principal diagnosis: Reason for follow-up is leukocytosis/cholecystitis Patient is a 53-year-old female with a past medical history significant for diabetes mellitus hypertension did have chronic abdominal pain and gastroparesis for the patient did have a PEG tube placement for nutrition recent admission to the hospital and treated for ESBL UTI presenting back with a bdominal pain nausea vomiting elevated liver enzymes concerning for possible biliary sludge and cholangitis. Patient is status post laparoscopic cholecystectomy for cholecystitis completed on 10/24/2023 on today's evaluation that is 10/24/2023,the patient denies any fever or any chills, patient is breathing comfortably on room air, the patient denies chest pain shortness of breath and no significant cough, patient abdominal pain slightly decreased intensity no further nausea vomiting. Patient did have white count of 6.1, creatinine 0.50 Objective - Vital Signs Vital signs: Vital Signs Temp 97.3 F L 10/24/23 12:40 Pulse 89 10/24/23 12:40 Resp 16 10/24/23 12:40 BP 138/76 10/24/23 12:40 Pulse Ox 98 10/24/23 12:40 FiO2 Intake & Output 10/23/23 10/24/23 10/24/23 18:59 06:59 18:59 Intake Total 240 700 Output Total 5 Balance 240 695 Weight 35.2 kg 35.2 kg Intake: IV 700 Oral 240 Output: Estimated Blood Loss 5 Other: Voiding Method Bedside Commode Bedside Commode Bedside Commode # Voids 3 2 - Exam GENERAL DESCRIPTION: Middle-aged female lying in bed in no distress RESPIRATORY SYSTEM: Unlabored breathing , decreased breath sounds at bases HEART: S1 S2 regular rate and rhythm , ABDOMEN: Soft , no tenderness EXTREMITIES: No edema feet - Labs CBC & Chem 7: 10/24/23 06:14 10/24/23 06:14 Labs: Abnormal Lab Results - Last 24 Hours (Table) 10/23/23 10/23/23 10/23/23 Range/Units 06:44 17:12 20:14 Hgb (11.4-16.0) gm/dL MCHC (31.0-37.0) g/dL Sodium (137-145) mmol/L Chloride (98-107) mmol/L Carbon Dioxide (22-30) mmol/L Creatinine (0.52-1.04) mg/dL Glucose (74-99) mg/dL POC Glucose (mg/dL) 113 H 115 H (70-110) mg/dL Hemoglobin A1c 13.2 H (<=6.0) % AST (14-36) U/L ALT (4-34) U/L Total Protein (6.3-8.2) g/dL Albumin (3.5-5.0) g/dL 10/24/23 10/24/23 10/24/23 Range/Units 06:14 06:14 07:24 Hgb 11.0 L (11.4-16.0) gm/dL MCHC 30.9 L (31.0-37.0) g/dL Sodium 136 L (137-145) mmol/L Chloride 112 H (98-107) mmol/L Carbon Dioxide 20 L (22-30) mmol/L Creatinine 0.50 L (0.52-1.04) mg/dL Glucose 136 H (74-99) mg/dL POC Glucose (mg/dL) 135 H (70-110) mg/dL Hemoglobin A1c (<=6.0) % AST 46 H (14-36) U/L ALT 64 H (4-34) U/L Total Protein 5.5 L (6.3-8.2) g/dL Albumin 2.5 L (3.5-5.0) g/dL 10/24/23 10/24/23 Range/Units 10:17 12:37 Hgb (11.4-16.0) gm/dL MCHC (31.0-37.0) g/dL Sodium (137-145) mmol/L Chloride (98-107) mmol/L Carbon Dioxide (22-30) mmol/L Creatinine (0.52-1.04) mg/dL Glucose (74-99) mg/dL POC Glucose (mg/dL) 151 H 184 H (70-110) mg/dL Hemoglobin A1c (<=6.0) % AST (14-36) U/L ALT (4-34) U/L Total Protein (6.3-8.2) g/dL Albumin (3.5-5.0) g/dL Assessment and Plan (1) Leukocytosis Current Visit: Yes Status: Acute Code(s): D72.829 - ELEVATED WHITE BLOOD CELL COUNT, UNSPECIFIED SNOMED Code(s): 612932752 (2) Cholecystitis Current Visit: Yes Status: Acute Code(s): K81.9 - CHOLECYSTITIS, UNSPECIFIED SNOMED Code(s): 83445267 Plan: 1patient presented to hospital abdominal pain in this patient who did have elevated white count mildly elevated liver enzymes on admission per surgery interpretation of the ultrasound concerning for biliary sludge and may have passed a stone concern for possible cholangitis and will need to cover for the enteric gram-negative in this patient with recent ESBL infection we will try to cover for the residual gram-negative while waiting for the workup to be completed 2 continue with the patient is status post laparoscopic cholecystectomy meropenem and monitor clinical course closely Dictation was produced using [employer] dictation software. please excuse any grammatical, word or spelling errors. Time with Patient: Less than 30
[2023-10-24 20:10] LABS: Glucose,Whole Blood 259 mg/dL (70-110)
[2023-10-25 06:57] LABS: Glucose,Whole Blood 214 mg/dL (70-110)
[2023-10-25 12:04] LABS: Glucose,Whole Blood 262 mg/dL (70-110)
--- NOTE | 2023-10-25 13:00 | P.PN ---
Subjective Progress Note Date: 10/25/23 CHIEF COMPLAINT: Abdominal pain HISTORY OF PRESENT ILLNESS: Patient is postop day #1 status post laparoscopic cholecystectomy. Patient reports some improvement in her pain. No vomiting. She did report nausea. She is having flatus and bowel movement. She is asking if she can eat more. Afebrile. Remains mildly tachycardic. PHYSICAL EXAM: VITAL SIGNS: Reviewed. GENERAL: no acute distress. ABDOMEN: Soft. Nondistended. Incision sites clean dry and intact. PEG tube site with crusting otherwise dry and intact. NEUROLOGIC: Alert and oriented. Cranial nerves II through XII grossly intact. ASSESSMENT: 1. Cholecystitis status post laparoscopic cholecystectomy 2. Acute pancreatitis. Possible gallstone pancreatitis. Dr. Garzon reviewed abdominal ultrasound imaging. Per his interpretation he reported evidence of gallbladder sludge. Patient does have elevated LFTs. Biochemically it looks as though she passed a gallstone. 3. Elevated LFTs 4. History of chronic abdominal pain 5. Uncontrolled diabetes mellitus 6. History of gastroparesis PLAN: -Advance diet to regular -Continue pain management -Encourage patient to increase activity level Physician Claims Vice President note has been reviewed by physician. Signing provider agrees with the documented findings, assessment, and plan of care. Objective - Vital Signs Vital signs: Vital Signs Temp 98.5 F 10/25/23 06:57 Pulse 116 H 10/25/23 09:15 Resp 16 10/25/23 06:57 BP 116/74 10/25/23 06:57 Pulse Ox 94 L 10/25/23 06:57 FiO2 Intake & Output 10/24/23 10/25/23 10/25/23 18:59 06:59 18:59 Intake Total 1240 Output Total 5 Balance 1235 Weight 35.2 kg 39 kg Intake: IV 700 Oral 540 Output: Estimated Blood Loss 5 Other: Voiding Method Bedside Commode Bedside Commode Bedside Commode # Voids 2 1 # Bowel Movements 1 - Labs CBC & Chem 7: 10/24/23 06:14 10/24/23 06:14 Labs: Abnormal Lab Results - Last 24 Hours (Table) 10/24/23 10/24/23 10/25/23 Range/Units 17:06 20:08 06:55 POC Glucose (mg/dL) 147 H 259 H 214 H (70-110) mg/dL 10/25/23 Range/Units 12:03 POC Glucose (mg/dL) 262 H (70-110) mg/dL Microbiology - Last 24 Hours (Table) 10/23/23 11:14 Blood Culture - Preliminary Blood
[2023-10-25] MEDS: ALPRAZolam 0.25 MG TAB PO PRN (14:51)
[2023-10-25 15:51] VITALS: BMI 17.3
--- NOTE | 2023-10-25 15:51 | P.PN ---
Subjective Progress Note Date: 10/25/23 Principal diagnosis: Reason for follow-up is leukocytosis/cholecystitis Patient is a 53-year-old female with a past medical history significant for diabetes mellitus hypertension did have chronic abdominal pain and gastroparesis for the patient did have a PEG tube placement for nutrition recent admission to the hospital and treated for ESBL UTI presenting back with a bdominal pain nausea vomiting elevated liver enzymes concerning for possible biliary sludge and cholangitis.Patient is status post laparoscopic cholecystectomy for cholecystitis completed on 10/24/2023 on today's evaluation that is 10/25/2023,the patient remains to be afebrile, patient is on room air not requiring supplemental oxygen and denies any shortness of breath no chest pain or cough.Patient denies having any nausea or vomiting, abdominal pain has decreased in intensity no diarrhea. No new labs were obtained today Objective - Vital Signs Vital signs: Vital Signs Temp 98.3 F 10/25/23 12:05 Pulse 111 H 10/25/23 12:05 Resp 16 10/25/23 12:05 BP 112/72 10/25/23 12:05 Pulse Ox 96 10/25/23 12:05 FiO2 Intake & Output 10/24/23 10/25/23 10/25/23 18:59 06:59 18:59 Intake Total 1240 Output Total 5 Balance 1235 Weight 35.2 kg 39 kg Intake: IV 700 Oral 540 Output: Estimated Blood Loss 5 Other: Voiding Method Bedside Commode Bedside Commode Bedside Commode # Voids 2 1 # Bowel Movements 1 - Exam GENERAL DESCRIPTION: Middle-aged female lying in bed in no distress RESPIRATORY SYSTEM: Unlabored breathing , decreased breath sounds at bases HEART: S1 S2 regular rate and rhythm , ABDOMEN: Soft , no tenderness EXTREMITIES: No edema feet - Labs CBC & Chem 7: 10/24/23 06:14 10/24/23 06:14 Labs: Abnormal Lab Results - Last 24 Hours (Table) 10/24/23 10/24/23 10/25/23 Range/Units 17:06 20:08 06:55 POC Glucose (mg/dL) 147 H 259 H 214 H (70-110) mg/dL 10/25/23 Range/Units 12:03 POC Glucose (mg/dL) 262 H (70-110) mg/dL Microbiology - Last 24 Hours (Table) 05/08/24 11:14 Blood Culture - Preliminary Blood Assessment and Plan (1) Leukocytosis Current Visit: Yes Status: Acute Code(s): D72.829 - ELEVATED WHITE BLOOD CELL COUNT, UNSPECIFIED SNOMED Code(s): 846045513 (2) Cholecystitis Current Visit: Yes Status: Acute Code(s): K81.9 - CHOLECYSTITIS, UNSPECIFIED SNOMED Code(s): 07839559 Plan: 1patient presented to hospital abdominal pain in this patient who did have elevated white count mildly elevated liver enzymes on admission per surgery interpretation of the ultrasound concerning for biliary sludge and may have passed a stone concern for possible cholangitis and will need to cover for the enteric gram-negative in this patient with recent ESBL infection we will try to cover for the residual gram-negative while waiting for the workup to be completed 2 patient is status post laparoscopic cholecystectomy, patient is currently covered with meropenem and monitor clinical course closely Dictation was produced using [employer] dictation software. please excuse any grammatical, word or spelling errors. Time with Patient: Less than 30
[2023-10-25 17:02] LABS: Glucose,Whole Blood 50 mg/dL (70-110)
[2023-10-25 17:02] LABS: Glucose,Whole Blood 47 mg/dL (70-110)
[2023-10-25] MEDS: DEXTROSE 50% SYRINGE 50 ML IVP ONE (17:10)
[2023-10-25 17:29] LABS: Glucose,Whole Blood 204 mg/dL (70-110)
[2023-10-25 19:59] LABS: Glucose,Whole Blood 88 mg/dL (70-110)
--- NOTE | 2023-10-25 20:44 | PN ---
PROGRESS NOTE SUBJECTIVE: Status post cholecystectomy, is back on her tube feeds. Pulse is 111, temp 93, blood pressure 112/72, O2 96 on room air. Infectious Disease, Dr. Brunson saw the patient for diagnosis cholecystitis, leukocytosis, may have passed a stone. Concern of possible cholangitis. Need to cover for enteric gram negatives with recent ESBL infection continue with a status post laparoscopic cholecystectomy, meropenem. PROGNOSIS: Guarded. She will be cleared for discharge when Dr. Brunson says she is cleared from infectious disease standpoint. MMODL / IJN: [id number] /
[2023-10-26 07:05] LABS: Glucose,Whole Blood 191 mg/dL (70-110)
[2023-10-26 09:20] LABS: Basophils # (A) 0.09 X 10*3/uL (0.00-0.10); Basophils % (A) 1.1 %; Eosinophils % (A) 4.9 %; HCT 30.4 % (37.2-46.3); HGB 9.5 g/dL (12.0-15.0); Lymphocytes # (A) 2.36 X 10*3/uL (0.90-5.00); Lymphocytes % (A) 28.9 %; MCH 27.9 pg (27.0-32.0); MCHC 31.3 g/dL (32.0-37.0); MCV 89.1 FL (80.0-97.0); Mean Platelet Volume 10.1 FL (9.5-12.2); Monocytes # (A) 0.65 X 10*3/uL (0.20-1.00); Monocytes % (A) 7.9 %; NRBC Per 100 WBC 0 X 10*3/uL (0.00-0.01); Neutrophils # (A) 4.66 X 10*3/uL (1.80-7.70); Platelet Count 330 X 10*3/uL (140-440); RBC 3.41 X 10*6/uL (4.10-5.20); RDW 14.2 % (11.5-14.5); WBC 8.18 X 10*3/uL (4.50-10.00)
[2023-10-26 09:44] LABS: Blood Urea Nitrogen 9.9 mg/dL (9.0-27.0); Glucose 176 mg/dL (70-110)
[2023-10-26 09:45] LABS: ALT 61 U/L (8-44); AST 56 U/L (13-35); Albumin 2.7 g/dL (3.8-4.9); Albumin/Globulin Ratio 1.17 Ratio (1.60-3.17); Alkaline Phosphatase 108 U/L (41-126); Calcium 8.4 mg/dL (8.7-10.3); Carbon Dioxide 30.4 mmol/L (21.6-31.8); Chloride 99 mmol/L (96-109); Globulin 2.3 g/dL (1.6-3.3); Sodium 142 mmol/L (135-145); Total Bilirubin <0.2 mg/dL (0.3-1.2)
[2023-10-26 11:58] LABS: Glucose,Whole Blood 283 mg/dL (70-110)
[2023-10-26] MEDS: SCOPOLAMINE 1 MG/72 HR PATCH TRANSDERM SCH (14:47)
[2023-10-26 17:20] LABS: Glucose,Whole Blood 113 mg/dL (70-110)
--- NOTE | 2023-10-26 19:02 | PN ---
PROGRESS NOTE SUBJECTIVE: Lesa Patterson was admitted for progressive nausea and vomiting. She had history of severe gastroparesis, scheduled for gastric pump Rishabh Alberto. She had a cholecystectomy done by Dr. Garzon yesterday. She started vomiting postop. We are going to start her back on her medication that normally works for her. She is on meropenem, IV antibiotics per Dr. Brunson. Remains on her Reglan for nausea and vomiting. We will give her a scopolamine patch to see if that helps. She started throwing up after postop after she started eating and try to make herself n.p.o. as she get tube feedings for esophageal dysmobility. She will continue on tube feedings at this time, nausea control, IV antibiotics per Dr. Brunson. OBJECTIVE: CARDIOVASCULAR: S1 and S2. LUNGS: Transmitted upper sounds. PSYCH: Fair mood and affect. She appears anxious. VITAL SIGNS: Pulse rate is 100s, temperature 97.9, blood pressure is low , and O2 saturation 97% on room air. continue tube feedings. Rehydrate her. Give her nausea and vomiting medications. Prognosis is guarded. Monitor her for hypotension. Prognosis guarded. MMODL / IJN: [id number] /
[2023-10-26 20:43] LABS: Glucose,Whole Blood 189 mg/dL (70-110)
--- NOTE | 2023-10-26 21:20 | P.PN ---
Subjective Progress Note Date: 10/26/23 Principal diagnosis: Reason for follow-up is leukocytosis/cholecystitis Patient is a 53-year-old female with a past medical history significant for diabetes mellitus hypertension did have chronic abdominal pain and gastroparesis for the patient did have a PEG tube placement for nutrition recent admission to the hospital and treated for ESBL UTI presenting back with a bdominal pain nausea vomiting elevated liver enzymes concerning for possible biliary sludge and cholangitis.Patient is status post laparoscopic cholecystectomy for cholecystitis completed on 10/24/2023 on today's evaluation that is 10/26/2023, the patient continues to be afebrile, the patient is on room air and breathing comfortably, the Pt denies having any chest pain or cough, the patient complaining of some nausea and not feeling well no worsening abdominal pain or any diarrhea. Patient white count is 8.18, creatinine 0.5 Objective - Vital Signs Vital signs: Vital Signs Temp 97.9 F 10/26/23 07:06 Pulse 108 H 10/26/23 08:15 Resp 16 10/26/23 07:06 BP 93/63 10/26/23 07:06 Pulse Ox 97 10/26/23 07:06 FiO2 Intake & Output 10/25/23 10/26/23 10/26/23 18:59 06:59 18:59 Intake Total 2019 Balance 2019 Weight 39 kg 36 kg Intake: Intake, IV Titration 1000 Amount Meropenem 1 gm In Sodium 200 Chloride 0.9% 100 ml @ 33 .3 mls/hr IVPB Q8H [facility] Rx #:[id number] Sodium Chloride 0.9% 1, 800 000 ml @ 75 mls/hr IV . [id number] [facility] Rx#:[id number] Oral 400 Tube Feeding 500 Other 120 Other: Voiding Method Bedside Commode Bedside Commode # Voids 1 1 # Bowel Movements 1 3 1 - Exam GENERAL DESCRIPTION: Middle-aged female lying in bed in no distress RESPIRATORY SYSTEM: Unlabored breathing , decreased breath sounds at bases HEART: S1 S2 regular rate and rhythm , ABDOMEN: Soft , no tenderness EXTREMITIES: No edema feet - Labs CBC & Chem 7: 10/26/23 05:23 10/26/23 05:23 Labs: Abnormal Lab Results - Last 24 Hours (Table) 10/25/23 10/25/23 10/25/23 Range/Units 12:03 16:59 17:00 POC Glucose (mg/dL) 262 H 47 L 50 L (70-110) mg/dL 10/25/23 10/26/23 Range/Units 17:28 07:04 POC Glucose (mg/dL) 204 H 191 H (70-110) mg/dL Microbiology - Last 24 Hours (Table) 10/23/23 11:14 Blood Culture - Preliminary Blood Assessment and Plan (1) Leukocytosis Current Visit: Yes Status: Acute Code(s): D72.829 - ELEVATED WHITE BLOOD CELL COUNT, UNSPECIFIED SNOMED Code(s): 594775571 (2) Cholecystitis Current Visit: Yes Status: Acute Code(s): K81.9 - CHOLECYSTITIS, UNSPECIFIED SNOMED Code(s): 82921394 Plan: 1patient presented to hospital abdominal pain in this patient who did have elevated white count mildly elevated liver enzymes on admission per surgery interpretation of the ultrasound concerning for biliary sludge and may have passed a stone concern for possible cholangitis and will need to cover for the enteric gram-negative in this patient with recent ESBL infection we will try to cover for the residual gram-negative while waiting for the workup to be completed 2 patient is status post laparoscopic cholecystectomy, patient to continue with meropenem and continue with supportive care Dictation was produced using [employer] dictation software. please excuse any grammatical, word or spelling errors. Time with Patient: Less than 30
--- NOTE | 2023-10-26 23:17 | P.PN ---
Subjective Progress Note Date: 10/26/23 Patient seen and evaluated at bedside. Patient doing well, denies n/v/f/s/sob/cp. Objective - Vital Signs Vital signs: Vital Signs Temp 98.4 F 10/26/23 19:43 Pulse 110 H 10/26/23 21:29 Resp 20 10/26/23 19:43 BP 92/59 10/26/23 19:43 Pulse Ox 96 10/26/23 19:43 FiO2 Intake & Output 10/26/23 10/26/23 10/27/23 06:59 18:59 06:59 Intake Total 2019 Balance 2019 Weight 36 kg Intake: Intake, IV Titration 1000 Amount Meropenem 1 gm In Sodium 200 Chloride 0.9% 100 ml @ 33 .3 mls/hr IVPB Q8H [facility] Rx #:[id number] Sodium Chloride 0.9% 1, 800 000 ml @ 75 mls/hr IV . [id number] [facility] Rx#:[id number] Oral 400 Tube Feeding 500 Other 120 Other: Voiding Method Bedside Commode Bedside Commode # Voids 1 1 # Bowel Movements 3 1 - Exam gen: nad cv: rrr pul: non labored breathing abd: soft, mild tenderness to palpation, no guarding or rebound tenderness, surgical dressing c/d/i with min strikethrough - Labs CBC & Chem 7: 10/26/23 05:23 10/26/23 05:23 Labs: Abnormal Lab Results - Last 24 Hours (Table) 10/26/23 10/26/23 10/26/23 Range/Units 05:23 05:23 07:04 RBC 3.41 L (4.10-5.20) X 10*6/uL Hgb 9.5 L (12.0-15.0) g/dL Hct 30.4 L (37.2-46.3) % MCHC 31.3 L (32.0-37.0) g/dL Eosinophils # 0.40 H (0.04-0.35) X 10*3/uL Anion Gap 12.60 H (4.00-12.00) mmol/L Creatinine 0.5 L (0.6-1.5) mg/dL Glucose 176 H (70-110) mg/dL POC Glucose (mg/dL) 191 H (70-110) mg/dL Calcium 8.4 L (8.7-10.3) mg/dL Total Bilirubin <0.2 L (0.3-1.2) mg/dL AST 56 H (13-35) U/L ALT 61 H (8-44) U/L Total Protein 5.0 L (6.2-8.2) g/dL Albumin 2.7 L (3.8-4.9) g/dL Albumin/Globulin Ratio 1.17 L (1.60-3.17) Ratio 10/26/23 10/26/23 10/26/23 Range/Units 11:57 17:19 20:41 RBC (4.10-5.20) X 10*6/uL Hgb (12.0-15.0) g/dL Hct (37.2-46.3) % MCHC (32.0-37.0) g/dL Eosinophils # (0.04-0.35) X 10*3/uL Anion Gap (4.00-12.00) mmol/L Creatinine (0.6-1.5) mg/dL Glucose (70-110) mg/dL POC Glucose (mg/dL) 283 H 113 H 189 H (70-110) mg/dL Calcium (8.7-10.3) mg/dL Total Bilirubin (0.3-1.2) mg/dL AST (13-35) U/L ALT (8-44) U/L Total Protein (6.2-8.2) g/dL Albumin (3.8-4.9) g/dL Albumin/Globulin Ratio (1.60-3.17) Ratio Microbiology - Last 24 Hours (Table) 10/23/23 11:14 Blood Culture - Preliminary Blood Assessment and Plan Assessment: 53 yo female s/p lap elliott -tolerating diet -encourage incentive spirometer -pain control
[2023-10-27 07:18] LABS: Glucose,Whole Blood 254 mg/dL (70-110)
[2023-10-27 08:06] LABS: Basophils # (A) 0.1 k/uL (0-0.2); Basophils % (A) 2 %; Eosinophils # (A) 0.4 k/uL (0-0.7); Eosinophils % (A) 7 %; HGB 10.2 gm/dL (11.4-16.0); Hypochromasia Marked; Lymphocytes # (A) 1.6 k/uL (1.0-4.8); Lymphocytes % (A) 24 %; MCH 27.1 pg (25.0-35.0); MCHC 29.2 g/dL (31.0-37.0); MCV 92.6 fL (80.0-100.0); Mean Platelet Volume 8.1; Monocytes # (A) 0.4 k/uL (0-1.0); Monocytes % (A) 7 %; Neutrophils # (A) 3.9 k/uL (1.3-7.7); Neutrophils % (A) 59 %; Platelet Count 324 k/uL (150-450); RBC 3.78 m/uL (3.80-5.40); RDW 14.6 % (11.5-15.5); WBC 6.7 k/uL (3.8-10.6)
[2023-10-27 08:25] LABS: ALT 68 U/L (4-34); AST 80 U/L (14-36); African American GFR (CKD) >90 (>60 ml/min/1.73 sqM); Albumin 2.5 g/dL (3.5-5.0); Albumin/Globulin Ratio 0.9; Alkaline Phosphatase 123 U/L (38-126); Anion Gap 1 mmol/L; Blood Urea Nitrogen 19 mg/dL (7-17); Calcium 8.3 mg/dL (8.4-10.2); Carbon Dioxide 25 mmol/L (22-30); Chloride 111 mmol/L (98-107); Globulin 2.9 g/dL; Glucose 231 mg/dL (74-99); Non-African American GFR(CKD) >90 (>60 ml/min/1.73 sqM); Potassium 5.4 mmol/L (3.5-5.1); Sodium 137 mmol/L (137-145); Total Bilirubin 0.2 mg/dL (0.2-1.3); Total Protein 5.4 g/dL (6.3-8.2)
[2023-10-27 11:50] LABS: Glucose,Whole Blood 216 mg/dL (70-110)
--- NOTE | 2023-10-27 11:51 | P.PN ---
Subjective Progress Note Date: 10/27/23 patient is stable. She states she has improved nausea and abdominal pain. On exam vital signs appear stable. Abdomen soft. Assessment post laparoscopically cholecystectomy. Patient is doing fairly well. She'll be discharged home per medical service. Objective - Vital Signs Vital signs: Vital Signs Temp 98.3 F 10/27/23 07:19 Pulse 100 10/27/23 08:17 Resp 16 10/27/23 07:19 BP 92/55 10/27/23 07:19 Pulse Ox 94 L 10/27/23 07:19 FiO2 Intake & Output 10/26/23 10/27/23 10/27/23 18:59 06:59 18:59 Intake Total 1000 Balance 1000 Weight 35.1 kg Intake: Intake, IV Titration 1000 Amount Meropenem 1 gm In Sodium 100 Chloride 0.9% 100 ml @ 33 .3 mls/hr IVPB Q8H [facility] Rx #:[id number] Sodium Chloride 0.9% 1, 900 000 ml @ 75 mls/hr IV . [id number] [facility] Rx#:[id number] Other: Voiding Method Bedside Commode # Voids 1 1 # Bowel Movements 1 1 - Labs CBC & Chem 7: 10/27/23 07:23 10/27/23 07:23 Labs: Abnormal Lab Results - Last 24 Hours (Table) 10/26/23 10/26/23 10/26/23 Range/Units 11:57 17:19 20:41 RBC (3.80-5.40) m/uL Hgb (11.4-16.0) gm/dL MCHC (31.0-37.0) g/dL Potassium (3.5-5.1) mmol/L Chloride (98-107) mmol/L BUN (7-17) mg/dL Glucose (74-99) mg/dL POC Glucose (mg/dL) 283 H 113 H 189 H (70-110) mg/dL Calcium (8.4-10.2) mg/dL AST (14-36) U/L ALT (4-34) U/L Total Protein (6.3-8.2) g/dL Albumin (3.5-5.0) g/dL 10/27/23 10/27/23 10/27/23 Range/Units 07:16 07:23 07:23 RBC 3.78 L (3.80-5.40) m/uL Hgb 10.2 L (11.4-16.0) gm/dL MCHC 29.2 L (31.0-37.0) g/dL Potassium 5.4 H (3.5-5.1) mmol/L Chloride 111 H (98-107) mmol/L BUN 19 H (7-17) mg/dL Glucose 231 H (74-99) mg/dL POC Glucose (mg/dL) 254 H (70-110) mg/dL Calcium 8.3 L (8.4-10.2) mg/dL AST 80 H (14-36) U/L ALT 68 H (4-34) U/L Total Protein 5.4 L (6.3-8.2) g/dL Albumin 2.5 L (3.5-5.0) g/dL Microbiology - Last 24 Hours (Table) 10/23/23 11:14 Blood Culture - Preliminary Blood
--- NOTE | 2023-10-27 12:29 | PN ---
PROGRESS NOTE PHYSICAL EXAMINATION: Temperature 98.3, blood pressure is 92-114/75-55, O2 90-94 on room air, pulse is 104- 110, respiratory rate 16-18. CARDIOVASCULAR: S1, S2. LUNGS: Transmitted upper sounds. HEMATOLOGY: Negative Homans. Surgery saw the patient. She still has nausea and vomiting. She will remain n.p.o. She has tube feeds incentive spirometer. Pain control. Scopolamine for vomiting. White count is normal. Hemoglobin is 10.2. Sodium is 137, potassium 5.4. Sugars mid 100s to 200s. Continue current treatment. PROGNOSIS: Guarded. Please see further orders. MMODL / IJN: [id number] /
[2023-10-27 17:03] LABS: Glucose,Whole Blood 104 mg/dL (70-110)
[2023-10-27 20:20] LABS: Glucose,Whole Blood 271 mg/dL (70-110)
[2023-10-28 07:10] LABS: Glucose,Whole Blood 266 mg/dL (70-110)
[2023-10-28 10:47] LABS: Basophils # (A) 0.12 X 10*3/uL (0.00-0.10); Basophils % (A) 1.5 %; Eosinophils # (A) 0.56 X 10*3/uL (0.04-0.35); Eosinophils % (A) 7.1 %; HCT 33.5 % (37.2-46.3); HGB 10.1 g/dL (12.0-15.0); Lymphocytes # (A) 1.85 X 10*3/uL (0.90-5.00); Lymphocytes % (A) 23.3 %; MCHC 30.1 g/dL (32.0-37.0); MCV 92.8 FL (80.0-97.0); Mean Platelet Volume 10.8 FL (9.5-12.2); Monocytes # (A) 0.73 X 10*3/uL (0.20-1.00); Monocytes % (A) 9.2 %; NRBC Per 100 WBC 0 X 10*3/uL (0.00-0.01); Neutrophils # (A) 4.65 X 10*3/uL (1.80-7.70); Neutrophils % (A) 58.6 %; Platelet Count 326 X 10*3/uL (140-440); RBC 3.61 X 10*6/uL (4.10-5.20); RDW 13.9 % (11.5-14.5); WBC 7.93 X 10*3/uL (4.50-10.00)
[2023-10-28 11:10] LABS: ALT 140 U/L (8-44); AST 235 U/L (13-35); Albumin 2.7 g/dL (3.8-4.9); Albumin/Globulin Ratio 1.04 Ratio (1.60-3.17); Alkaline Phosphatase 153 U/L (41-126); BUN/Creat Ratio 38.14 Ratio (12.00-20.00); Blood Urea Nitrogen 26.7 mg/dL (9.0-27.0); Calcium 8.5 mg/dL (8.7-10.3); Carbon Dioxide 25.2 mmol/L (21.6-31.8); Chloride 106 mmol/L (96-109); Globulin 2.6 g/dL (1.6-3.3); Glucose 270 mg/dL (70-110); Potassium 5.6 mmol/L (3.5-5.5); Sodium 138 mmol/L (135-145); Total Bilirubin <0.2 mg/dL (0.3-1.2); Total Protein 5.3 g/dL (6.2-8.2)
[2023-10-28 12:24] LABS: Glucose,Whole Blood 198 mg/dL (70-110)
--- NOTE | 2023-10-28 15:17 | P.PN ---
Subjective Progress Note Date: 10/28/23 CHIEF COMPLAINT: Abdominal pain HISTORY OF PRESENT ILLNESS: Patient is postop day #4 status post laparoscopic cholecystectomy. Patient continues to complain of her chronic abdominal pain and nausea. No vomiting. She is tolerating tube feeds. Tolerating small amount of oral intake. Afebrile. Mildly tachycardic. Patient has had some episodes of hypotension WBC 7.93 Hgb 10.1 platelets 326 sodium 138 potassium is 5.6 creatinine 0.7 elevated LFTs PHYSICAL EXAM: VITAL SIGNS: Reviewed. GENERAL: no acute distress. ABDOMEN: Soft. Nondistended. Incision sites clean dry and intact. PEG tube site with crusting otherwise dry and intact. NEUROLOGIC: Alert and oriented. Cranial nerves II through XII grossly intact. ASSESSMENT: 1. Chronic Cholecystitis status post laparoscopic cholecystectomy 2. Acute pancreatitis. Possible gallstone pancreatitis. Dr. Garzon reviewed abdominal ultrasound imaging. Per his interpretation he reported evidence of gallbladder sludge. Patient does have elevated LFTs. Biochemically it looks as though she passed a gallstone. 3. Elevated LFTs 4. History of chronic abdominal pain 5. Uncontrolled diabetes mellitus 6. History of gastroparesis PLAN: -Repeat CMP in a.m. for mildy elevated LFTs -Continue supportive care Physician Scuba Diving Teacher note has been reviewed by physician. Signing provider agrees with the documented findings, assessment, and plan of care. Objective - Vital Signs Vital signs: Vital Signs Temp 98 F 10/28/23 12:21 Pulse 108 H 10/28/23 12:21 Resp 16 10/28/23 12:21 BP 100/66 10/28/23 12:21 Pulse Ox 98 10/28/23 12:21 FiO2 Intake & Output 10/27/23 10/28/23 10/28/23 18:59 06:59 18:59 Intake Total 1920 Balance 1920 Weight 35.2 kg Intake: Intake, IV Titration 800 Amount Meropenem 1 gm In Sodium 200 Chloride 0.9% 100 ml @ 33 .3 mls/hr IVPB Q8H [facility] Rx #:[id number] Sodium Chloride 0.9% 1, 600 000 ml @ 75 mls/hr IV . [id number] [facility] Rx#:[id number] Oral 400 Tube Feeding 600 Other 120 Other: Voiding Method Bedside Commode Bedside Commode # Voids 2 2 # Bowel Movements 3 2 - Labs CBC & Chem 7: 10/28/23 07:24 10/28/23 07:24 Labs: Abnormal Lab Results - Last 24 Hours (Table) 10/27/23 10/28/23 10/28/23 Range/Units 20:19 07:09 07:24 RBC 3.61 L (4.10-5.20) X 10*6/uL Hgb 10.1 L (12.0-15.0) g/dL Hct 33.5 L (37.2-46.3) % MCHC 30.1 L (32.0-37.0) g/dL Eosinophils # 0.56 H (0.04-0.35) X 10*3/uL Basophils # 0.12 H (0.00-0.10) X 10*3/uL Potassium (3.5-5.5) mmol/L BUN/Creatinine Ratio (12.00-20.00) Ratio Glucose (70-110) mg/dL POC Glucose (mg/dL) 271 H 266 H (70-110) mg/dL Calcium (8.7-10.3) mg/dL Total Bilirubin (0.3-1.2) mg/dL AST (13-35) U/L ALT (8-44) U/L Alkaline Phosphatase (41-126) U/L Total Protein (6.2-8.2) g/dL Albumin (3.8-4.9) g/dL Albumin/Globulin Ratio (1.60-3.17) Ratio 10/28/23 10/28/23 Range/Units 07:24 12:23 RBC (4.10-5.20) X 10*6/uL Hgb (12.0-15.0) g/dL Hct (37.2-46.3) % MCHC (32.0-37.0) g/dL Eosinophils # (0.04-0.35) X 10*3/uL Basophils # (0.00-0.10) X 10*3/uL Potassium 5.6 H (3.5-5.5) mmol/L BUN/Creatinine Ratio 38.14 H (12.00-20.00) Ratio Glucose 270 H (70-110) mg/dL POC Glucose (mg/dL) 198 H (70-110) mg/dL Calcium 8.5 L (8.7-10.3) mg/dL Total Bilirubin <0.2 L (0.3-1.2) mg/dL AST 235 H (13-35) U/L ALT 140 H (8-44) U/L Alkaline Phosphatase 153 H (41-126) U/L Total Protein 5.3 L (6.2-8.2) g/dL Albumin 2.7 L (3.8-4.9) g/dL Albumin/Globulin Ratio 1.04 L (1.60-3.17) Ratio
[2023-10-28 17:06] LABS: Glucose,Whole Blood 188 mg/dL (70-110)
[2023-10-28 20:35] LABS: Glucose,Whole Blood 211 mg/dL (70-110)
--- NOTE | 2023-10-29 05:14 | PN ---
PROGRESS NOTE Lesa Patterson still has nausea and vomiting over the past. Since cholecystectomy, it still persists. She is status post chronic cholecystitis, status post lap elliott, acute on chronic pancreatitis. The patient has elevated LFTs. She could have passed a gallstone. She is status post history of chronic abdominal pain, uncontrolled diabetes mellitus, history of gastroparesis. She is status post day #4 laparoscopic cholecystectomy. We will get GI involved at this point. Continue with tolerated tube feedings. Nothing by mouth as she is still vomiting. Hypotension. Platelets 326, hemoglobin is 10.1, white count 7.93, potassium 5 6, sodium 138, creatinine 0.7. Elevated LFTs. Prognosis guarded. Wait for GI recommendations. MMODL / IJN: [id number] /
[2023-10-29 06:59] LABS: Glucose,Whole Blood 245 mg/dL (70-110)
[2023-10-29 08:56] LABS: Basophils # (A) 0.2 k/uL (0-0.2); Basophils % (A) 2 %; Eosinophils # (A) 0.6 k/uL (0-0.7); Eosinophils % (A) 7 %; HCT 35.8 % (34.0-46.0); HGB 10.8 gm/dL (11.4-16.0); Hypochromasia Moderate; Lymphocytes # (A) 2.3 k/uL (1.0-4.8); Lymphocytes % (A) 29 %; MCH 27.6 pg (25.0-35.0); MCHC 30.1 g/dL (31.0-37.0); MCV 91.8 fL (80.0-100.0); Mean Platelet Volume 8.7; Monocytes # (A) 0.6 k/uL (0-1.0); Monocytes % (A) 8 %; Neutrophils # (A) 4.1 k/uL (1.3-7.7); Neutrophils % (A) 52 %; Platelet Count 340 k/uL (150-450); RBC 3.91 m/uL (3.80-5.40); RDW 14.7 % (11.5-15.5)
[2023-10-29 09:21] LABS: ALT 206 U/L (4-34); AST 362 U/L (14-36); African American GFR (CKD) >90 (>60 ml/min/1.73 sqM); Albumin 2.7 g/dL (3.5-5.0); Albumin/Globulin Ratio 0.9; Alkaline Phosphatase 175 U/L (38-126); Anion Gap 0 mmol/L; Blood Urea Nitrogen 25 mg/dL (7-17); Calcium 8.1 mg/dL (8.4-10.2); Carbon Dioxide 28 mmol/L (22-30); Chloride 104 mmol/L (98-107); Glucose 266 mg/dL (74-99); Non-African American GFR(CKD) >90 (>60 ml/min/1.73 sqM); Potassium 5.8 mmol/L (3.5-5.1); Sodium 132 mmol/L (137-145); Total Bilirubin 0.2 mg/dL (0.2-1.3); Total Protein 5.7 g/dL (6.3-8.2)
[2023-10-29] MEDS ORDERED: TRIMETHOBENZAMIDE 100 MG/ML 2 ML VIAL IM PRN (11:07)
[2023-10-29 11:58] LABS: Glucose,Whole Blood 308 mg/dL (70-110)
--- NOTE | 2023-10-29 16:09 | P.PN ---
Subjective Progress Note Date: 10/29/23 CHIEF COMPLAINT: Abdominal pain HISTORY OF PRESENT ILLNESS: Patient is postop day #5 status post laparoscopic cholecystectomy. Patient continues to complain of abdominal pain and nausea. Patient reports the pain feels like her chronic pain. She is tolerating small amount of her oral diet. She is receiving tube feeds. Having bowel movements. Afebrile. Mildly tachycardic. Glucose 308 elevated liver enzymes PHYSICAL EXAM: VITAL SIGNS: Reviewed. GENERAL: no acute distress. ABDOMEN: Soft. Nondistended. Incision sites clean dry and intact. PEG tube site with crusting otherwise dry and intact. NEUROLOGIC: Alert and oriented. Cranial nerves II through XII grossly intact. ASSESSMENT: 1. Chronic Cholecystitis status post laparoscopic cholecystectomy 2. Acute pancreatitis. Possible gallstone pancreatitis. Dr. Garzon reviewed abdominal ultrasound imaging. Per his interpretation he reported evidence of gallbladder sludge. Patient does have elevated LFTs. Biochemically it looks as though she passed a gallstone. 3. Elevated LFTs 4. History of chronic abdominal pain 5. Uncontrolled diabetes mellitus 6. History of gastroparesis PLAN: -Patient's symptoms are related to her uncontrolled diabetes -Continue supportive care -Patient to be seen by GI service -Repeat LFTs in a.m. Physician Inspector And Clerk note has been reviewed by physician. Signing provider agrees with the documented findings, assessment, and plan of care. Objective - Vital Signs Vital signs: Vital Signs Temp 98.1 F 10/29/23 11:54 Pulse 114 H 10/29/23 11:54 Resp 18 10/29/23 11:54 BP 131/87 10/29/23 11:54 Pulse Ox 99 10/29/23 11:54 FiO2 Intake & Output 10/28/23 10/29/23 10/29/23 18:59 06:59 18:59 Intake Total 600 540 Balance 600 540 Weight 35.8 kg Intake: Oral 540 Tube Feeding 600 Other: Voiding Method Bedside Commode Bedside Commode Bedside Commode # Voids 4 # Bowel Movements 2 - Labs CBC & Chem 7: 10/29/23 08:05 10/29/23 08:05 Labs: Abnormal Lab Results - Last 24 Hours (Table) 10/28/23 10/28/23 10/29/23 Range/Units 17:05 20:18 06:58 Hgb (11.4-16.0) gm/dL MCHC (31.0-37.0) g/dL Sodium (137-145) mmol/L Potassium (3.5-5.1) mmol/L BUN (7-17) mg/dL Creatinine (0.52-1.04) mg/dL Glucose (74-99) mg/dL POC Glucose (mg/dL) 188 H 211 H 245 H (70-110) mg/dL Calcium (8.4-10.2) mg/dL AST (14-36) U/L ALT (4-34) U/L Alkaline Phosphatase (38-126) U/L Total Protein (6.3-8.2) g/dL Albumin (3.5-5.0) g/dL 10/29/23 10/29/23 10/29/23 Range/Units 08:05 08:05 11:56 Hgb 10.8 L (11.4-16.0) gm/dL MCHC 30.1 L (31.0-37.0) g/dL Sodium 132 L (137-145) mmol/L Potassium 5.8 H (3.5-5.1) mmol/L BUN 25 H (7-17) mg/dL Creatinine 0.49 L (0.52-1.04) mg/dL Glucose 266 H (74-99) mg/dL POC Glucose (mg/dL) 308 H (70-110) mg/dL Calcium 8.1 L (8.4-10.2) mg/dL AST 362 H (14-36) U/L ALT 206 H (4-34) U/L Alkaline Phosphatase 175 H (38-126) U/L Total Protein 5.7 L (6.3-8.2) g/dL Albumin 2.7 L (3.5-5.0) g/dL Microbiology - Last 24 Hours (Table) 10/23/23 11:14 Blood Culture - Final Blood
--- NOTE | 2023-10-29 16:12 | P.CONS ---
History of Present Illness - Reason for Consult Consult date: 10/29/23 Emesis Requesting physician: Dell Pike - Chief Complaint Nausea, vomiting, abdominal pain, hyperglycemia - History of Present Illness This is a 53-year-old female with a history of poorly controlled diabetes mellitus, chronic abdominal pain, nausea and vomiting and gastroparesis with multiple hospitalizations who had presented 8 days ago for abdominal pain nausea and vomiting. Patient has undergone multiple endoscopic evaluations, has a J- tube present for tube feedings and patient was scheduled for some time to follow-up with [facility] for gastric pump placement this Saturday, October 31. Patient states they canceled her appointment because she did not follow through and follow-up with her admin asst to get the order that they could proceed with gastric pump placement. Patient again is hospitalized for nausea vomiting and abdominal pain. She was seen by general surgery and underwent cholecystectomy on 10/24/2023 for cholecystitis with findings of a calculus chronic cholecystitis. Apparently patient continues to complain of nausea and vomiting and abdominal pain status post surgery. States she has not had any vomiting in 2 or 3 days but remains nauseated. She is able to eat a little bit of food and keep it down. Still has tube feedings going. Currently on Reglan, Zofran and scopolamine patch for nausea. On Protonix 40 mg daily. Patient also noted to have elevated LFTs that have been steadily increasing since her cholecystectomy. Today's labs WBC 8.0 hemoglobin 10.8 hematocrit 35 platelet count 340,000 sodium 132 potassium 5.8 BUN 25 creatinine 0.4 glucose 266 total bilirubin 0.2 AST 362 ALT 206 alkaline phosphatase 175. Patient's hemoglobin A1c is 13.9. Review of Systems REVIEW OF SYSTEMS: CARDIOPULMONARY: No chest pain or shortness of breath. Gastrointestinal: Chronic abdominal pain. Nausea with no vomiting. No hematemesis, coffee-ground emesis. No rectal bleeding, or melena. Chronic diarrhea. GENITOURINARY: No dysuria or hematuria. MUSCULOSKELETAL: Reports normal range of motion. SKIN: No rashes. No jaundice. ENDOCRINE: No chills, fevers. No excessive weight gain or loss. No polydipsia or polyuria. PSYCHIATRIC: Unremarkable. NEUROLOGY: No change in mental status. Denies dizziness, headache. ENT: Vision unremarkable. CONSTITUTIONAL: No recent weight loss. No fever, chills, night sweats. 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 MDRO Source:: Urine VRE and ESBL, MRSA-ABD Past Surgical History: Orthopedic Surgery, Tubal Ligation Additional Past Surgical History / Comment(s): rt shoulder Past Anesthesia/Blood Transfusion Reactions: No Reported Reaction Additional Past Anesthesia/Blood Transfusion Reaction / Comm: UNK FAMILY HX Past Psychological History: Anxiety Smoking Status: Current every day smoker Past Alcohol Use History: None Reported Additional Past Alcohol Use History / Comment(s): STARTED SMOKING 1987, smokes about 6 cigs/day Past Drug Use History: None Reported Additional Drug Use History / Comment(s): Patient denies using marijuana. - Past Family History Father History Unknown: Yes Additional Family Medical History / Comment(s): unknown-adopted Mother History Unknown: Yes Additional Family Medical History / Comment(s): unknown- adopted Medications and Allergies Home Medications Medication Instructions Recorded Confirmed Type ALPRAZolam [Xanax] 0.25 mg PO BID PRN 05/12/23 10/21/23 History Atorvastatin [Lipitor] 20 mg PO DAILY 05/12/23 10/21/23 History DULoxetine HCL [Cymbalta] 30 mg PO DAILY 05/12/23 10/21/23 History Insulin Lispro [humaLOG Kwikpen] 2 unit SQ AC-TID 05/12/23 10/21/23 History Ipratropium-Albuterol Nebulize 3 ml INHALATION RT-BID 05/12/23 10/21/23 History [Duoneb 0.5 mg-3 mg/3 ml Soln] Mirtazapine [Remeron] 30 mg PO HS 05/12/23 10/21/23 History Metoclopramide [Reglan] 10 mg PO ACHS 30 Days #120 tab 05/15/23 10/21/23 Rx Pantoprazole [Protonix] 40 mg PO AC-BID 30 Days #60 tab 05/21/23 10/21/23 Rx Folic Acid 1 mg PO DAILY 06/15/23 10/21/23 History Ondansetron [Zofran] 4 mg PO DAILY 30 Days #30 tab 06/26/23 10/21/23 Rx HYDROcodone/APAP 7.5-325MG [[place] 1 tab PO TID PRN 08/25/23 10/21/23 History 7.5-325] Insulin Glargine [Lantus Vial] 10 unit SQ DAILY #0 09/20/23 10/21/23 Rx Losartan-Hctz 50-12.5 mg [Hyzaar 1 tab PO DAILY 09/26/23 10/21/23 History 50-12.5] Acetaminophen Tab [Tylenol] 650 mg PO Q6HR PRN tab 10/16/23 10/21/23 Rx Cholestyramine (with Sugar) 4 gm PO BID@1000,1800 30 Days #60 10/16/23 10/21/23 Rx [Questran Packet] packet Loperamide [Imodium] 2 mg PO QID PRN cap 10/16/23 10/21/23 Rx Allergies Allergy/AdvReac Type Severity Reaction Status Date / Time fentanyl Allergy Unknown Verified 10/21/23 11:03 Physical Exam Vitals: Vital Signs Temp Pulse Pulse Resp BP Pulse Ox 10/29/23 11:54 98.1 F 114 H 18 131/87 99 10/29/23 07:50 107 H 10/29/23 07:41 110 H 10/29/23 07:00 98.1 F 108 H 16 125/82 96 10/29/23 01:19 98.5 F 117 H 16 132/85 97 10/28/23 19:59 117 H 18 10/28/23 19:49 117 H 18 10/28/23 19:18 98.3 F 112 H 16 109/64 98 Intake and Output 10/29/23 10/29/23 10/29/23 06:59 14:59 22:59 Intake Total 540 Balance 540 Intake: Oral 540 Other: Voiding Method Bedside Commode # Voids 4 # Bowel Movements 2 Weight 35.8 kg General appearance: The patient is alert, oriented, appears in no acute dist ress. Emaciated appearing. HET: Head is normocephalic and atraumatic. Conjunctiva pink. Sclera anicteric. Neck: Supple without lymphadenopathy. Trachea midline. Heart: Regular. Lungs: Equal expansion, normal respiratory effort. Abdomen: Soft, thin, J-tube in place, nontender, nondistended. Skin: No rashes. No jaundice. Extremities: Normal skin color and turgor. No pedal edema. Neurological: No focal deficits. Alert and oriented x3. Results CBC & Chem 7: 10/29/23 08:05 10/29/23 08:05 Labs: Abnormal Lab Results - Last 24 Hours (Table) 10/28/23 10/28/23 10/29/23 Range/Units 17:05 20:18 06:58 Hgb (11.4-16.0) gm/dL MCHC (31.0-37.0) g/dL Sodium (137-145) mmol/L Potassium (3.5-5.1) mmol/L BUN (7-17) mg/dL Creatinine (0.52-1.04) mg/dL Glucose (74-99) mg/dL POC Glucose (mg/dL) 188 H 211 H 245 H (70-110) mg/dL Calcium (8.4-10.2) mg/dL AST (14-36) U/L ALT (4-34) U/L Alkaline Phosphatase (38-126) U/L Total Protein (6.3-8.2) g/dL Albumin (3.5-5.0) g/dL 10/29/23 10/29/23 10/29/23 Range/Units 08:05 08:05 11:56 Hgb 10.8 L (11.4-16.0) gm/dL MCHC 30.1 L (31.0-37.0) g/dL Sodium 132 L (137-145) mmol/L Potassium 5.8 H (3.5-5.1) mmol/L BUN 25 H (7-17) mg/dL Creatinine 0.49 L (0.52-1.04) mg/dL Glucose 266 H (74-99) mg/dL POC Glucose (mg/dL) 308 H (70-110) mg/dL Calcium 8.1 L (8.4-10.2) mg/dL AST 362 H (14-36) U/L ALT 206 H (4-34) U/L Alkaline Phosphatase 175 H (38-126) U/L Total Protein 5.7 L (6.3-8.2) g/dL Albumin 2.7 L (3.5-5.0) g/dL Microbiology - Last 24 Hours (Table) 10/23/23 11:14 Blood Culture - Final Blood Assessment and Plan (1) Nausea & vomiting Narrative/Plan: 53-year-old female with chronic nausea and vomiting secondary to uncontrolled diabetes mellitus and diabetic gastroparesis. Patient has had multiple endoscopies, J-tube is placed for malnutrition and patient recently underwent cholecystectomy for chronic abdominal pain nausea and vomiting. Patient is scheduled to undergo gastric pump placement later this week at [facility] however patient did not follow through with her admin asst to get paperwork that approved the procedure and it has been canceled unfortunately. Discussed with patient she will continue to have nausea and vomiting likely secondary from gastroparesis related to uncontrolled blood sugars. Most recent hemoglobin A1c is 13.9. Recommend patient reschedule appointment with [facility] specialist for gastric pump placement to hopefully improve abdominal pain nausea and vomiting. Otherwise continue with antiemetics as ordered. Will add Tigan as needed. Vomiting has improved patient does have some mild nausea. Current Visit: No Status: Acute Code(s): R11.2 - NAUSEA WITH VOMITING, UNSPECIFIED SNOMED Code(s): 61295993 (2) Elevated LFTs Narrative/Plan: Unclear etiology of elevated LFTs, likely may be secondary to antibiotic therapy. Patient is currently on meropenem 1 g every 8 hours which was started on 10/23/2023 for urinary tract infection.. LFTs have been trending up since antibiotics starting and after she had her gallbladder removed on 10/24/2023. Pathology showed a calculus chronic cholecystitis. Will will continue to trend LFTs. Recommend to avoid hepatotoxic medications. Consider changing antibiotic. Current Visit: Yes Status: Acute Code(s): R79.89 - OTHER SPECIFIED ABNORMAL FINDINGS OF BLOOD CHEMISTRY SNOMED Code(s): 769700201 (3) Diabetic gastroparesis Current Visit: Yes Status: Acute Code(s): E11.43 - TYPE 2 DIABETES W DIABETIC AUTONOMIC (POLY)NEUROPATHY; K31.84 - GASTROPARESIS SNOMED Code(s): 876803581 (4) Chronic abdominal pain Current Visit: No Status: Acute Priority: Medium Code(s): R10.9 - UNSPECIFIED ABDOMINAL PAIN; G89.29 - OTHER CHRONIC PAIN SNOMED Code(s): 413257171 (5) Hyperglycemia Current Visit: No Status: Acute Code(s): R73.9 - HYPERGLYCEMIA, UNSPECIFIED SNOMED Code(s): 22210437 (6) Uncontrolled diabetes mellitus Current Visit: No Status: Acute Code(s): CEO4662 - SNOMED Code(s): 55718659 Plan: 1. Continue symptomatic and supportive care 2. Continue antiemetics as ordered 3. Continue Protonix as ordered 4. Tigan added 5. Diet as tolerated 6. Continue tube feedings per recommendations from dietitian 7. Repeat CMP tomorrow 8. No plans on endoscopic evaluation 9. Recommend strict glycemic control which will help with gastroparesis and nausea and vomiting 10. Recommend patient follow-up with admin asst and reschedule appointment for [facility] specialist for gastric pump placement 11. Avoid hepatotoxic medications. Consider switching antibiotic as may be cause for elevated LFTs Thank you for this consultation, we will continue to follow. Dr. Shakira Bear I agree with the dictator's note, documented as a scribe by Leigh Ordonez.
--- NOTE | 2023-10-29 16:48 | P.PN ---
Subjective Progress Note Date: 10/27/23 Principal diagnosis: Reason for follow-up is leukocytosis/cholecystitis Patient is a 53-year-old female with a past medical history significant for diabetes mellitus hypertension did have chronic abdominal pain and gastroparesis for the patient did have a PEG tube placement for nutrition recent admission to the hospital and treated for ESBL UTI presenting back with a bdominal pain nausea vomiting elevated liver enzymes concerning for possible biliary sludge and cholangitis.Patient is status post laparoscopic cholecystectomy for cholecystitis completed on 10/24/2023 on today's evaluation that is 10/27/2023, Patient is afebrile patient is currently on room air and denies having any shortness of breath, the patient denies any chest pain or cough, the patient has been having some nausea but no vomiting, the patient abdominal pain is currently controlled, no diarrhea Patient white count 6.7 creatinine 0.59 Objective - Vital Signs Vital signs: Vital Signs Temp 98.3 F 10/27/23 07:19 Pulse 100 10/27/23 08:17 Resp 16 10/27/23 07:19 BP 92/55 10/27/23 07:19 Pulse Ox 94 L 10/27/23 07:19 FiO2 Intake & Output 10/26/23 10/27/23 10/27/23 18:59 06:59 18:59 Intake Total 1000 Balance 1000 Weight 35.1 kg Intake: Intake, IV Titration 1000 Amount Meropenem 1 gm In Sodium 100 Chloride 0.9% 100 ml @ 33 .3 mls/hr IVPB Q8H [facility] Rx #:[id number] Sodium Chloride 0.9% 1, 900 000 ml @ 75 mls/hr IV . [id number] [facility] Rx#:[id number] Other: Voiding Method Bedside Commode # Voids 1 1 # Bowel Movements 1 1 - Exam GENERAL DESCRIPTION: Middle-aged female lying in bed in no distress RESPIRATORY SYSTEM: Unlabored breathing , decreased breath sounds at bases HEART: S1 S2 regular rate and rhythm , ABDOMEN: Soft , no tenderness EXTREMITIES: No edema feet - Labs CBC & Chem 7: 10/29/23 08:05 10/29/23 08:05 Labs: Abnormal Lab Results - Last 24 Hours (Table) 10/26/23 10/26/23 10/26/23 Range/Units 11:57 17:19 20:41 RBC (3.80-5.40) m/uL Hgb (11.4-16.0) gm/dL MCHC (31.0-37.0) g/dL Potassium (3.5-5.1) mmol/L Chloride (98-107) mmol/L BUN (7-17) mg/dL Glucose (74-99) mg/dL POC Glucose (mg/dL) 283 H 113 H 189 H (70-110) mg/dL Calcium (8.4-10.2) mg/dL AST (14-36) U/L ALT (4-34) U/L Total Protein (6.3-8.2) g/dL Albumin (3.5-5.0) g/dL 10/27/23 10/27/23 10/27/23 Range/Units 07:16 07:23 07:23 RBC 3.78 L (3.80-5.40) m/uL Hgb 10.2 L (11.4-16.0) gm/dL MCHC 29.2 L (31.0-37.0) g/dL Potassium 5.4 H (3.5-5.1) mmol/L Chloride 111 H (98-107) mmol/L BUN 19 H (7-17) mg/dL Glucose 231 H (74-99) mg/dL POC Glucose (mg/dL) 254 H (70-110) mg/dL Calcium 8.3 L (8.4-10.2) mg/dL AST 80 H (14-36) U/L ALT 68 H (4-34) U/L Total Protein 5.4 L (6.3-8.2) g/dL Albumin 2.5 L (3.5-5.0) g/dL Microbiology - Last 24 Hours (Table) 10/23/23 11:14 Blood Culture - Preliminary Blood Assessment and Plan (1) Leukocytosis Current Visit: Yes Status: Acute Code(s): D72.829 - ELEVATED WHITE BLOOD CELL COUNT, UNSPECIFIED SNOMED Code(s): 228364174 (2) Cholecystitis Current Visit: Yes Status: Acute Code(s): K81.9 - CHOLECYSTITIS, UNSPECIFIED SNOMED Code(s): 61986050 Plan: 1patient presented to hospital abdominal pain in this patient who did have elevated white count mildly elevated liver enzymes on admission per surgery interpretation of the ultrasound concerning for biliary sludge and may have passed a stone concern for possible cholangitis and will need to cover for the enteric gram-negative in this patient with recent ESBL infection we will try to cover for the residual gram-negative while waiting for the workup to be completed 2 patient is status post laparoscopic cholecystectomy, patient to continue with meropenem for short course and monitor clinical course closely Dictation was produced using [employer] dictation software. please excuse any grammatical, word or spelling errors. Time with Patient: Less than 30
--- NOTE | 2023-10-29 16:49 | P.PN ---
Subjective Progress Note Date: 10/28/23 Principal diagnosis: Reason for follow-up is leukocytosis/cholecystitis Patient is a 53-year-old female with a past medical history significant for diabetes mellitus hypertension did have chronic abdominal pain and gastroparesis for the patient did have a PEG tube placement for nutrition recent admission to the hospital and treated for ESBL UTI presenting back with a bdominal pain nausea vomiting elevated liver enzymes concerning for possible biliary sludge and cholangitis.Patient is status post laparoscopic cholecystectomy for cholecystitis completed on 10/24/2023 on today's evaluation that is 10/28/2023, patient has been afebrile, patient is breathing comfortably and is currently on room air, patient denies having any significant cough no chest pain shortness of breath, patient has been complaining of some nausea but no vomiting some abdominal discomfort but no worsening and no diarrhea Patient white count is 7.93 creatinine 0.7 Objective - Vital Signs Vital signs: Vital Signs Temp 98.2 F 10/28/23 07:06 Pulse 102 H 10/28/23 08:39 Resp 20 10/28/23 07:06 BP 86/56 10/28/23 07:06 Pulse Ox 92 L 10/28/23 07:06 FiO2 Intake & Output 10/27/23 10/28/23 10/28/23 18:59 06:59 18:59 Intake Total 1920 Balance 1920 Weight 35.2 kg Intake: Intake, IV Titration 800 Amount Meropenem 1 gm In Sodium 200 Chloride 0.9% 100 ml @ 33 .3 mls/hr IVPB Q8H [facility] Rx #:[id number] Sodium Chloride 0.9% 1, 600 000 ml @ 75 mls/hr IV . [id number] [facility] Rx#:[id number] Oral 400 Tube Feeding 600 Other 120 Other: Voiding Method Bedside Commode Bedside Commode # Voids 2 2 # Bowel Movements 3 2 - Exam GENERAL DESCRIPTION: Middle-aged female lying in bed in no distress RESPIRATORY SYSTEM: Unlabored breathing , decreased breath sounds at bases HEART: S1 S2 regular rate and rhythm , ABDOMEN: Soft , no tenderness EXTREMITIES: No edema feet - Labs CBC & Chem 7: 10/29/23 08:05 10/29/23 08:05 Labs: Abnormal Lab Results - Last 24 Hours (Table) 05/12/24 05/12/24 05/13/24 Range/Units 07:23 20:19 07:09 RBC (4.10-5.20) X 10*6/uL Hgb (12.0-15.0) g/dL Hct (37.2-46.3) % MCHC (32.0-37.0) g/dL Eosinophils # (0.04-0.35) X 10*3/uL Basophils # (0.00-0.10) X 10*3/uL Potassium (3.5-5.5) mmol/L BUN/Creatinine Ratio (12.00-20.00) Ratio Glucose (70-110) mg/dL POC Glucose (mg/dL) 271 H 266 H (70-110) mg/dL Hemoglobin A1c 13.9 H (<=6.0) % Calcium (8.7-10.3) mg/dL Total Bilirubin (0.3-1.2) mg/dL AST (13-35) U/L ALT (8-44) U/L Alkaline Phosphatase (41-126) U/L Total Protein (6.2-8.2) g/dL Albumin (3.8-4.9) g/dL Albumin/Globulin Ratio (1.60-3.17) Ratio 10/28/23 10/28/23 10/28/23 Range/Units 07:24 07:24 12:23 RBC 3.61 L (4.10-5.20) X 10*6/uL Hgb 10.1 L (12.0-15.0) g/dL Hct 33.5 L (37.2-46.3) % MCHC 30.1 L (32.0-37.0) g/dL Eosinophils # 0.56 H (0.04-0.35) X 10*3/uL Basophils # 0.12 H (0.00-0.10) X 10*3/uL Potassium 5.6 H (3.5-5.5) mmol/L BUN/Creatinine Ratio 38.14 H (12.00-20.00) Ratio Glucose 270 H (70-110) mg/dL POC Glucose (mg/dL) 198 H (70-110) mg/dL Hemoglobin A1c (<=6.0) % Calcium 8.5 L (8.7-10.3) mg/dL Total Bilirubin <0.2 L (0.3-1.2) mg/dL AST 235 H (13-35) U/L ALT 140 H (8-44) U/L Alkaline Phosphatase 153 H (41-126) U/L Total Protein 5.3 L (6.2-8.2) g/dL Albumin 2.7 L (3.8-4.9) g/dL Albumin/Globulin Ratio 1.04 L (1.60-3.17) Ratio Assessment and Plan (1) Leukocytosis Current Visit: Yes Status: Acute Code(s): D72.829 - ELEVATED WHITE BLOOD CELL COUNT, UNSPECIFIED SNOMED Code(s): 056626272 (2) Cholecystitis Current Visit: Yes Status: Acute Code(s): K81.9 - CHOLECYSTITIS, UNSPECIFIED SNOMED Code(s): 77434891 Plan: 1patient presented to hospital abdominal pain in this patient who did have elevated white count mildly elevated liver enzymes on admission per surgery int erpretation of the ultrasound concerning for biliary sludge and may have passed a stone concern for possible cholangitis and will need to cover for the enteric gram-negative in this patient with recent ESBL infection we will try to cover for the residual gram-negative while waiting for the workup to be completed 2 patient is status post laparoscopic cholecystectomy, patient to continue with meropenem while inpatient but no need for antibiotic on discharge Dictation was produced using [employer] dictation software. please excuse any grammatical, word or spelling errors. Time with Patient: Less than 30
--- NOTE | 2023-10-29 16:50 | P.PN ---
Subjective Progress Note Date: 10/29/23 Principal diagnosis: Reason for follow-up is leukocytosis/cholecystitis Patient is a 53-year-old female with a past medical history significant for diabetes mellitus hypertension did have chronic abdominal pain and gastroparesis for the patient did have a PEG tube placement for nutrition recent admission to the hospital and treated for ESBL UTI presenting back with a bdominal pain nausea vomiting elevated liver enzymes concerning for possible biliary sludge and cholangitis.Patient is status post laparoscopic cholecystectomy for cholecystitis completed on 10/24/2023 on today's evaluation that is 10/29/2023,the patient denies any fever or any chills, patient is breathing comfortably on room air, the patient denies chest pain shortness of breath and no significant cough, patient mention some improvement in nausea no vomiting abdominal pain has decreased intensity no diarrhea. Patient white count is 8.0 creatinine 0.4 Objective - Vital Signs Vital signs: Vital Signs Temp 98.1 F 10/29/23 11:54 Pulse 114 H 10/29/23 11:54 Resp 18 10/29/23 11:54 BP 131/87 10/29/23 11:54 Pulse Ox 99 10/29/23 11:54 FiO2 Intake & Output 10/28/23 10/29/23 10/29/23 18:59 06:59 18:59 Intake Total 600 540 Balance 600 540 Weight 35.8 kg Intake: Oral 540 Tube Feeding 600 Other: Voiding Method Bedside Commode Bedside Commode Bedside Commode # Voids 4 # Bowel Movements 2 - Exam GENERAL DESCRIPTION: Middle-aged female lying in bed in no distress RESPIRATORY SYSTEM: Unlabored breathing , decreased breath sounds at bases HEART: S1 S2 regular rate and rhythm , ABDOMEN: Soft , no tenderness EXTREMITIES: No edema feet - Labs CBC & Chem 7: 10/29/23 08:05 10/29/23 08:05 Labs: Abnormal Lab Results - Last 24 Hours (Table) 10/28/23 10/28/23 10/29/23 Range/Units 17:05 20:18 06:58 Hgb (11.4-16.0) gm/dL MCHC (31.0-37.0) g/dL Sodium (137-145) mmol/L Potassium (3.5-5.1) mmol/L BUN (7-17) mg/dL Creatinine (0.52-1.04) mg/dL Glucose (74-99) mg/dL POC Glucose (mg/dL) 188 H 211 H 245 H (70-110) mg/dL Calcium (8.4-10.2) mg/dL AST (14-36) U/L ALT (4-34) U/L Alkaline Phosphatase (38-126) U/L Total Protein (6.3-8.2) g/dL Albumin (3.5-5.0) g/dL 10/29/23 10/29/23 10/29/23 Range/Units 08:05 08:05 11:56 Hgb 10.8 L (11.4-16.0) gm/dL MCHC 30.1 L (31.0-37.0) g/dL Sodium 132 L (137-145) mmol/L Potassium 5.8 H (3.5-5.1) mmol/L BUN 25 H (7-17) mg/dL Creatinine 0.49 L (0.52-1.04) mg/dL Glucose 266 H (74-99) mg/dL POC Glucose (mg/dL) 308 H (70-110) mg/dL Calcium 8.1 L (8.4-10.2) mg/dL AST 362 H (14-36) U/L ALT 206 H (4-34) U/L Alkaline Phosphatase 175 H (38-126) U/L Total Protein 5.7 L (6.3-8.2) g/dL Albumin 2.7 L (3.5-5.0) g/dL Microbiology - Last 24 Hours (Table) 10/23/23 11:14 Blood Culture - Final Blood Assessment and Plan (1) Leukocytosis Current Visit: Yes Status: Acute Code(s): D72.829 - ELEVATED WHITE BLOOD CELL COUNT, UNSPECIFIED SNOMED Code(s): 780707465 (2) Cholecystitis Current Visit: Yes Status: Acute Code(s): K81.9 - CHOLECYSTITIS, UNSPECIFIED SNOMED Code(s): 79567932 Plan: 1patient presented to hospital abdominal pain in this patient who did have elevated white count mildly elevated liver enzymes on admission per surgery interpretation of the ultrasound concerning for biliary sludge and may have passed a stone concern for possible cholangitis and will need to cover for the enteric gram-negative in this patient with recent ESBL infection we will try to cover for the residual gram-negative while waiting for the workup to be completed 2 patient is status post laparoscopic cholecystectomy, patient has received about a week of meropenem which should be more than enough we will go ahead discontinue meropenem and monitor the patient closely off antibiotics Dictation was produced using [employer] dictation software. please excuse any grammatical, word or spelling errors. Time with Patient: Less than 30
[2023-10-29 17:05] LABS: Glucose,Whole Blood 141 mg/dL (70-110)
[2023-10-29 20:13] LABS: Glucose,Whole Blood 85 mg/dL (70-110)
[2023-10-30 07:32] LABS: Glucose,Whole Blood 296 mg/dL (70-110)
[2023-10-30 10:44] LABS: ALT 210 U/L (8-44); AST 306 U/L (13-35); Albumin/Globulin Ratio 1.11 Ratio (1.60-3.17); Alkaline Phosphatase 169 U/L (41-126); BUN/Creat Ratio 40.83 Ratio (12.00-20.00); Blood Urea Nitrogen 24.5 mg/dL (9.0-27.0); Calcium 8.5 mg/dL (8.7-10.3); Carbon Dioxide 28.1 mmol/L (21.6-31.8); Chloride 101 mmol/L (96-109); Globulin 2.7 g/dL (1.6-3.3); Glucose 297 mg/dL (70-110); Sodium 138 mmol/L (135-145); Total Bilirubin <0.2 mg/dL (0.3-1.2); Total Protein 5.7 g/dL (6.2-8.2)
[2023-10-30] MEDS: HYDROcodone/APAP 5-325MG 1 EACH TAB PO PRN (11:05)
[2023-10-30 12:10] LABS: Glucose,Whole Blood 293 mg/dL (70-110)
--- NOTE | 2023-10-30 12:45 | P.PN ---
Subjective Progress Note Date: 10/30/23 Principal diagnosis: Nausea and vomiting This is a 53-year-old female with a history of poorly controlled diabetes mellitus, chronic abdominal pain, nausea and vomiting and gastroparesis with multiple hospitalizations who had presented 8 days ago for abdominal pain nausea and vomiting. Patient has undergone multiple endoscopic evaluations, has a J- tube present for tube feedings and patient was scheduled for some time to follow-up with [facility] for gastric pump placement this October 31. Patient states they canceled her appointment because she did not follow through and follow-up with her cat operator to get the order that they could proceed with gastric pump placement. Patient again is hospitalized for nausea vomiting and abdominal pain. She was seen by general surgery and underwent cholecystectomy on 10/24/2023 for cholecystitis with findings of a calculus chronic cholecystitis. Apparently patient continues to complain of nausea and vomiting and abdominal pain status post surgery. States she has not had any vomiting in 2 or 3 days but remains nauseated. She is able to eat a little bit of food and keep it down. Still has tube feedings going. Currently on Reglan, Zofran and scopolamine patch for nausea. On Protonix 40 mg daily. Patient also noted to have elevated LFTs that have been steadily increasing since her cholecystectomy. Today's labs WBC 8.0 hemoglobin 10.8 hematocrit 35 platelet count 340,000 sodium 132 potassium 5.8 BUN 25 creatinine 0.4 glucose 266 total bilirubin 0.2 AST 362 ALT 206 alkaline phosphatase 175. Patient's hemoglobin A1c is 13.9. 10/30/2023 Patient is seen and examined today as a follow-up. She is currently sitting up in bed states she is feeling better. Still has some nausea. States she did not try any of the Tigan that was ordered. Meropenem was discontinued yesterday by infectious disease. Today's LFTs are stable total bilirubin less than 0.2 AST with some mild improvement to 306 ALT 210 and alkaline phosphatase improved to 169. Patient states plan is for discharge today. Objective - Vital Signs Vital signs: Vital Signs Temp 98.7 F 10/30/23 07:27 Pulse 126 H 10/30/23 07:27 Resp 16 10/30/23 07:27 BP 152/93 10/30/23 07:27 Pulse Ox 97 10/30/23 07:27 FiO2 Intake & Output 10/29/23 10/30/23 10/30/23 18:59 06:59 18:59 Weight 37.2 kg Other: Voiding Method Bedside Commode # Voids 3 # Bowel Movements 1 - Exam General appearance: The patient is alert, oriented, appears in no acute distress. Emaciated appearing HET: Head is normocephalic and atraumatic. Conjunctiva pink. Sclera anicteric. Neck: Supple without lymphadenopathy. Abdomen: Soft, thin, nontender, nondistended with bowel sounds. No guarding or rigidity. Extremities: Normal skin color and turgor. No pedal edema Skin: No rashes, no jaundice Neurological: No focal deficits. Alert and oriented. - Labs CBC & Chem 7: 10/29/23 08:05 10/30/23 06:52 Labs: Abnormal Lab Results - Last 24 Hours (Table) 10/29/23 10/29/23 10/29/23 Range/Units 08:05 11:56 17:04 Sodium 132 L (137-145) mmol/L Potassium 5.8 H (3.5-5.1) mmol/L BUN 25 H (7-17) mg/dL Creatinine 0.49 L (0.52-1.04) mg/dL Glucose 266 H (74-99) mg/dL POC Glucose (mg/dL) 308 H 141 H (70-110) mg/dL Calcium 8.1 L (8.4-10.2) mg/dL AST 362 H (14-36) U/L ALT 206 H (4-34) U/L Alkaline Phosphatase 175 H (38-126) U/L Total Protein 5.7 L (6.3-8.2) g/dL Albumin 2.7 L (3.5-5.0) g/dL 10/30/23 Range/Units 07:31 Sodium (137-145) mmol/L Potassium (3.5-5.1) mmol/L BUN (7-17) mg/dL Creatinine (0.52-1.04) mg/dL Glucose (74-99) mg/dL POC Glucose (mg/dL) 296 H (70-110) mg/dL Calcium (8.4-10.2) mg/dL AST (14-36) U/L ALT (4-34) U/L Alkaline Phosphatase (38-126) U/L Total Protein (6.3-8.2) g/dL Albumin (3.5-5.0) g/dL Assessment and Plan (1) Nausea & vomiting Narrative/Plan: 53-year-old female with chronic nausea and vomiting secondary to uncontrolled diabetes mellitus and diabetic gastroparesis. Patient has had multiple endoscopies, J-tube is placed for malnutrition and patient recently underwent cholecystectomy for chronic abdominal pain nausea and vomiting. Patient is scheduled to undergo gastric pump placement later this week at [facility] however patient did not follow through with her cat operator to get paperwork that approved the procedure and it has been canceled unfortunately. Discussed with patient she will continue to have nausea and vomiting likely secondary from gastroparesis related to uncontrolled blood sugars. Most recent hemoglobin A1c is 13.9. Recommend patient reschedule appointment with [facility] specialist for gastric pump placement to hopefully improve abdominal pain nausea and vomiting. Otherwise continue with antiemetics as ordered. Will add Tigan as needed. Vomiting has improved patient does have some mild nausea. Current Visit: No Status: Acute Code(s): R11.2 - NAUSEA WITH VOMITING, UNSPECIFIED SNOMED Code(s): 19306623 (2) Elevated LFTs Narrative/Plan: Unclear etiology of elevated LFTs, likely may be secondary to antibiotic therapy. Patient is currently on meropenem 1 g every 8 hours which was started on 10/23/2023 for urinary tract infection.. LFTs have been trending up since antibiotics starting and after she had her gallbladder removed on 10/24/2023. Pathology showed a calculus chronic cholecystitis. Will will continue to trend LFTs. Recommend to avoid hepatotoxic medications. Consider changing antibiotic. Antibiotics have been discontinued by infectious disease. Slight trend down in LFTs, otherwise LFTs stable. Recommend outpatient follow-up with primary medicine team for trending LFTs otherwise can follow-up as an outpatient with gastroenterology as needed. Current Visit: Yes Status: Acute Code(s): R79.89 - OTHER SPECIFIED ABNORMAL FINDINGS OF BLOOD CHEMISTRY SNOMED Code(s): 427385188 (3) Diabetic gastroparesis Current Visit: Yes Status: Acute Code(s): E11.43 - TYPE 2 DIABETES W DIABETIC AUTONOMIC (POLY)NEUROPATHY; K31.84 - GASTROPARESIS SNOMED Code(s): 825905882 (4) Chronic abdominal pain Current Visit: No Status: Acute Priority: Medium Code(s): R10.9 - UNSPECIFIED ABDOMINAL PAIN; G89.29 - OTHER CHRONIC PAIN SNOMED Code(s): 623015053 (5) Hyperglycemia Current Visit: No Status: Acute Code(s): R73.9 - HYPERGLYCEMIA, UNSPECIFIED SNOMED Code(s): 58939372 (6) Uncontrolled diabetes mellitus Current Visit: No Status: Acute Code(s): EKQ6611 - SNOMED Code(s): 06505773 Plan: 1. Continue symptomatic and supportive care 2. Continue antiemetics as ordered 3. Continue Protonix as ordered 4. Tigan added as needed 5. Diet as tolerated 6. Continue tube feedings per recommendations from dietitian 7. No plans on endoscopic evaluation 8. Recommend strict glycemic control which will help with gastroparesis and nausea and vomiting 9. Recommend patient follow-up with cat operator and reschedule appointment for [facility] specialist for gastric pump placement. Discussed importance of medic call compliance with patient. 10. Avoid hepatotoxic medications. Antibiotics have been discontinued 11. Recommend reevaluating LFTs with outpatient CMP. This can be done with primary care physician. If labs are not improving may refer to gastroenterology for outpatient follow-up. Thank you for this consultation, patient is cleared from gastroenterology for discharge. We will sign off at this time. Dr. Shakira Bear I agree with the dictator's note, documented as a scribe by Leigh Ordonez.
--- NOTE | 2023-10-30 13:27 | P.PN ---
Subjective Progress Note Date: 10/30/23 CHIEF COMPLAINT: Abdominal pain HISTORY OF PRESENT ILLNESS: Patient is postop day #6 status post laparoscopic cholecystectomy. Patient with no new complaints. She continues to report nausea. She is tolerating diet and tube feeds. Infectious disease discontinued antibiotic due to elevated LFTs. There has been some improvement in the LFTs. Afebrile. Potassium 6.0 total bili less than 0.2 AST 362 down to 306 ALT 206- 210 alk phos 175 down to 169 PHYSICAL EXAM: VITAL SIGNS: Reviewed. GENERAL: no acute distress. ABDOMEN: Soft. Nondistended. Incision sites clean dry and intact. NEUROLOGIC: Alert and oriented. Cranial nerves II through XII grossly intact. ASSESSMENT: 1. Chronic Cholecystitis status post laparoscopic cholecystectomy 2. Acute pancreatitis. Possible gallstone pancreatitis. 3. Elevated LFTs possibly due to antibiotics. Infectious disease has adjusted antibiotics. 4. History of chronic abdominal pain 5. Uncontrolled diabetes mellitus 6. History of gastroparesis PLAN: -Patient's symptoms are related to her uncontrolled diabetes -Continue supportive care -Recommend better control blood sugars -Continue antiemetics Physician Cooker Chip note has been reviewed by physician. Signing provider agrees with the documented findings, assessment, and plan of care. Objective - Vital Signs Vital signs: Vital Signs Temp 98.5 F 10/30/23 12:06 Pulse 112 H 10/30/23 12:06 Resp 16 10/30/23 12:06 BP 139/86 10/30/23 12:06 Pulse Ox 97 10/30/23 12:06 FiO2 Intake & Output 10/29/23 10/30/23 10/30/23 18:59 06:59 18:59 Weight 37.2 kg Other: Voiding Method Bedside Commode Bedside Commode # Voids 3 3 # Bowel Movements 1 1 - Labs CBC & Chem 7: 10/29/23 08:05 10/30/23 06:52 Labs: Abnormal Lab Results - Last 24 Hours (Table) 10/29/23 10/30/23 10/30/23 Range/Units 17:04 06:52 07:31 Potassium 6.0 H (3.5-5.5) mmol/L BUN/Creatinine Ratio 40.83 H (12.00-20.00) Ratio Glucose 297 H (70-110) mg/dL POC Glucose (mg/dL) 141 H 296 H (70-110) mg/dL Calcium 8.5 L (8.7-10.3) mg/dL Total Bilirubin <0.2 L (0.3-1.2) mg/dL AST 306 H (13-35) U/L ALT 210 H (8-44) U/L Alkaline Phosphatase 169 H (41-126) U/L Total Protein 5.7 L (6.2-8.2) g/dL Albumin 3.0 L (3.8-4.9) g/dL Albumin/Globulin Ratio 1.11 L (1.60-3.17) Ratio 10/30/23 Range/Units 12:09 Potassium (3.5-5.5) mmol/L BUN/Creatinine Ratio (12.00-20.00) Ratio Glucose (70-110) mg/dL POC Glucose (mg/dL) 293 H (70-110) mg/dL Calcium (8.7-10.3) mg/dL Total Bilirubin (0.3-1.2) mg/dL AST (13-35) U/L ALT (8-44) U/L Alkaline Phosphatase (41-126) U/L Total Protein (6.2-8.2) g/dL Albumin (3.8-4.9) g/dL Albumin/Globulin Ratio (1.60-3.17) Ratio
[2023-10-30] MEDS: SODIUM POLYSTYRENE SULFONATE 15 GM/60 ML BOTTLE PO ONE (14:10)
[2023-10-30 15:02] LABS: ALT 201 U/L (4-34); AST 208 U/L (14-36); African American GFR (CKD) >90 (>60 ml/min/1.73 sqM); Albumin 2.8 g/dL (3.5-5.0); Albumin/Globulin Ratio 0.9; Alkaline Phosphatase 165 U/L (38-126); Anion Gap 4 mmol/L; Blood Urea Nitrogen 27 mg/dL (7-17); Calcium 8.3 mg/dL (8.4-10.2); Carbon Dioxide 24 mmol/L (22-30); Chloride 103 mmol/L (98-107); Glucose 207 mg/dL (74-99); Non-African American GFR(CKD) >90 (>60 ml/min/1.73 sqM); Potassium 5.3 mmol/L (3.5-5.1); Sodium 131 mmol/L (137-145); Total Bilirubin 0.3 mg/dL (0.2-1.3); Total Protein 5.8 g/dL (6.3-8.2)
[2023-10-30 17:20] LABS: Glucose,Whole Blood 119 mg/dL (70-110)
[2023-10-30 20:11] LABS: Glucose,Whole Blood 230 mg/dL (70-110)
--- NOTE | 2023-10-31 04:20 | PN ---
PROGRESS NOTE DATE OF SERVICE: 10/29/2023 SUBJECTIVE: Lesa Patterson to service 10/29/2023. This 53-year-old white female, status post cholecystectomy, so has progressive nausea, vomiting, had ESBL UTI. Ertapenem has been given since admission when trying to get her cleared for discharge for tomorrow. OBJECTIVE: VITAL SIGNS: Temp 98.1, blood pressure 130s/70s, O2 99, respiratory rate 16 to 18, pulse 114. CARDIOVASCULAR: S1, S2. HEMATOLOGY: Negative for Homans. PSYCH: Fair mood and affect. NEUROLOGIC: Alert and orient x3. LUNGS: Clear. GI: Soft, PEG tube in place. Leukocytosis cholecystitis, biliary sludge, possible cholangitis, cover gram-negative cocci with ESBL infection. Wait for clearance per Infectious Disease to discharge prior to going home. Prognosis guarded. MMODL / IJN: [id number] /
--- NOTE | 2023-10-31 04:56 | PN ---
PROGRESS NOTE A -[id number] white female nausea, vomiting, status post cholecystectomy. She is scheduled to get upper GI with follow-through, which she refused. She is feeling better every day. We will send her home with scopolamine patch, Zofran, etc. Followup at [facility] for Gas-X pump placement. nausea, vomiting for gastroparesis. Continue with chest tube feedings and maybe some clear liquids until she gets a gastric pump placed in. Sugars have been in the 100 to 200 range, which are stable. Cardiovascular, S1, S2. Lungs, transmitted upper sounds. GI soft. She is thin, cachectic. Prognosis guarded. MMODL / IJN: [id number] /
[2023-10-31 07:44] LABS: Glucose,Whole Blood 313 mg/dL (70-110)
[2023-10-31 08:22] VITALS: PULSE 116
[2023-10-31 08:26] LABS: ALT 203 U/L (4-34); AST 305 U/L (14-36); African American GFR (CKD) >90 (>60 ml/min/1.73 sqM); Albumin 2.6 g/dL (3.5-5.0); Albumin/Globulin Ratio 0.9; Alkaline Phosphatase 161 U/L (38-126); Anion Gap 1 mmol/L; Blood Urea Nitrogen 29 mg/dL (7-17); Calcium 8.2 mg/dL (8.4-10.2); Carbon Dioxide 32 mmol/L (22-30); Chloride 100 mmol/L (98-107); Glucose 290 mg/dL (74-99); Non-African American GFR(CKD) >90 (>60 ml/min/1.73 sqM); Potassium 5.2 mmol/L (3.5-5.1); Sodium 133 mmol/L (137-145); Total Bilirubin 0.2 mg/dL (0.2-1.3); Total Protein 5.6 g/dL (6.3-8.2)
[2023-10-31 09:18] VITALS: BP 113/74; RESP 16; TEMP 98.4
--- NOTE | 2023-10-31 09:24 | P.PN ---
Subjective Progress Note Date: 10/31/23 Principal diagnosis: Nausea and vomiting This is a 53-year-old female with a history of poorly controlled diabetes mellitus, chronic abdominal pain, nausea and vomiting and gastroparesis with multiple hospitalizations who had presented 8 days ago for abdominal pain nausea and vomiting. Patient has undergone multiple endoscopic evaluations, has a J- tube present for tube feedings and patient was scheduled for some time to follow-up with [facility] for gastric pump placement this October 31. Patient states they canceled her appointment because she did not follow through and follow-up with her tapper hand to get the order that they could proceed with gastric pump placement. Patient again is hospitalized for nausea vomiting and abdominal pain. She was seen by general surgery and underwent cholecystectomy on 10/24/2023 for cholecystitis with findings of a calculus chronic cholecystitis. Apparently patient continues to complain of nausea and vomiting and abdominal pain status post surgery. States she has not had any vomiting in 2 or 3 days but remains nauseated. She is able to eat a little bit of food and keep it down. Still has tube feedings going. Currently on Reglan, Zofran and scopolamine patch for nausea. On Protonix 40 mg daily. Patient also noted to have elevated LFTs that have been steadily increasing since her cholecystectomy. Today's labs WBC 8.0 hemoglobin 10.8 hematocrit 35 platelet count 340,000 sodium 132 potassium 5.8 BUN 25 creatinine 0.4 glucose 266 total bilirubin 0.2 AST 362 ALT 206 alkaline phosphatase 175. Patient's hemoglobin A1c is 13.9. 10/30/2023 Patient is seen and examined today as a follow-up. She is currently sitting up in bed states she is feeling better. Still has some nausea. States she did not try any of the Tigan that was ordered. Meropenem was discontinued yesterday by infectious disease. Today's LFTs are stable total bilirubin less than 0.2 AST with some mild improvement to 306 ALT 210 and alkaline phosphatase improved to 169. Patient states plan is for discharge today. 10/31/2023 Patient seen and examined today as a follow-up. She is sitting up in bed. Patient looks much better. She states she is feeling much better no abdominal pain and no vomiting. LFTs are stable there was a slight increase in her AST however symptoms have improved. Objective - Vital Signs Vital signs: Vital Signs Temp 98.4 F 10/31/23 07:20 Pulse 116 H 10/31/23 08:29 Resp 16 10/31/23 07:20 BP 113/74 10/31/23 07:20 Pulse Ox 98 10/31/23 07:20 FiO2 Intake & Output 10/30/23 10/31/23 10/31/23 18:59 06:59 18:59 Intake Total 1375 Balance 1375 Weight 36.5 kg Intake: Intake, IV Titration 800 Amount Sodium Chloride 0.9% 1, 800 000 ml @ 75 mls/hr IV . [id number] [facility] Rx#:[id number] Tube Feeding 575 Other: Voiding Method Bedside Commode Bedside Commode # Voids 3 2 # Bowel Movements 1 - Exam General appearance: The patient is alert, oriented, appears in no acute distress. Emaciated appearing HET: Head is normocephalic and atraumatic. Conjunctiva pink. Sclera anicteric. Neck: Supple without lymphadenopathy. Abdomen: Soft, thin, nontender, nondistended with bowel sounds. No guarding or rigidity. Extremities: Normal skin color and turgor. No pedal edema Skin: No rashes, no jaundice Neurological: No focal deficits. Alert and oriented. - Labs CBC & Chem 7: 10/29/23 08:05 10/31/23 07:15 Labs: Abnormal Lab Results - Last 24 Hours (Table) 10/30/23 10/30/23 10/30/23 Range/Units 06:52 12:09 14:15 Sodium 131 L (137-145) mmol/L Potassium 6.0 H 5.3 H (3.5-5.5) mmol/L Carbon Dioxide (22-30) mmol/L BUN 27 H (7-17) mg/dL BUN/Creatinine Ratio 40.83 H (12.00-20.00) Ratio Glucose 297 H 207 H (70-110) mg/dL POC Glucose (mg/dL) 293 H (70-110) mg/dL Calcium 8.5 L 8.3 L (8.7-10.3) mg/dL Total Bilirubin <0.2 L (0.3-1.2) mg/dL AST 306 H 208 H (13-35) U/L ALT 210 H 201 H (8-44) U/L Alkaline Phosphatase 169 H 165 H (41-126) U/L Total Protein 5.7 L 5.8 L (6.2-8.2) g/dL Albumin 3.0 L 2.8 L (3.8-4.9) g/dL Albumin/Globulin Ratio 1.11 L (1.60-3.17) Ratio 10/30/23 10/30/23 10/30/23 Range/Units 16:44 17:16 20:09 Sodium (137-145) mmol/L Potassium 5.3 H (3.5-5.5) mmol/L Carbon Dioxide (22-30) mmol/L BUN (7-17) mg/dL BUN/Creatinine Ratio (12.00-20.00) Ratio Glucose (70-110) mg/dL POC Glucose (mg/dL) 119 H 230 H (70-110) mg/dL Calcium (8.7-10.3) mg/dL Total Bilirubin (0.3-1.2) mg/dL AST (13-35) U/L ALT (8-44) U/L Alkaline Phosphatase (41-126) U/L Total Protein (6.2-8.2) g/dL Albumin (3.8-4.9) g/dL Albumin/Globulin Ratio (1.60-3.17) Ratio 10/31/23 10/31/23 Range/Units 07:15 07:23 Sodium 133 L (137-145) mmol/L Potassium 5.2 H (3.5-5.5) mmol/L Carbon Dioxide 32 H (22-30) mmol/L BUN 29 H (7-17) mg/dL BUN/Creatinine Ratio (12.00-20.00) Ratio Glucose 290 H (70-110) mg/dL POC Glucose (mg/dL) 313 H (70-110) mg/dL Calcium 8.2 L (8.7-10.3) mg/dL Total Bilirubin (0.3-1.2) mg/dL AST 305 H (13-35) U/L ALT 203 H (8-44) U/L Alkaline Phosphatase 161 H (41-126) U/L Total Protein 5.6 L (6.2-8.2) g/dL Albumin 2.6 L (3.8-4.9) g/dL Albumin/Globulin Ratio (1.60-3.17) Ratio Assessment and Plan (1) Nausea & vomiting Narrative/Plan: 53-year-old female with chronic nausea and vomiting secondary to uncontrolled diabetes mellitus and diabetic gastroparesis. Patient has had multiple endoscopies, J-tube is placed for malnutrition and patient recently underwent cholecystectomy for chronic abdominal pain nausea and vomiting. Patient is scheduled to undergo gastric pump placement later this week at [facility] however patient did not follow through with her tapper hand to get paperwork that approved the procedure and it has been canceled unfortunately. Discussed with patient she will continue to have nausea and vomiting likely secondary from gastroparesis related to uncontrolled blood sugars. Most recent hemoglobin A1c is 13.9. Recommend patient reschedule appointment with [facility] specialist for gastric pump placement to hopefully improve abdominal pain nausea and vomiting. Otherwise continue with antiemetics as ordered. Will add Tigan as needed. Vomiting has improved patient does have some mild nausea. Current Visit: No Status: Acute Code(s): R11.2 - NAUSEA WITH VOMITING, UNSPECIFIED SNOMED Code(s): 35412146 (2) Elevated LFTs Narrative/Plan: Unclear etiology of elevated LFTs, likely may be secondary to antibiotic therapy. Patient is currently on meropenem 1 g every 8 hours which was started on 10/23/2023 for urinary tract infection.. LFTs have been trending up since antibiotics starting and after she had her gallbladder removed on 10/24/2023. Pathology showed a calculus chronic cholecystitis. Will will continue to trend LFTs. Recommend to avoid hepatotoxic medications. Consider changing antibiotic. Antibiotics have been discontinued by infectious disease. Slight trend down in LFTs, otherwise LFTs stable. Recommend outpatient follow-up with primary medicine team for trending LFTs otherwise can follow-up as an outpatient with gastroenterology as needed. Liver enzymes stable. Recommend outpatient follow-up with gastroenterolgy for elevated LFTs. Again likely secondary to IV antibiotics. Which are now discontinued. Recommend repeat labs in 1-3 days. Current Visit: Yes Status: Acute Code(s): R79.89 - OTHER SPECIFIED ABNORMAL FINDINGS OF BLOOD CHEMISTRY SNOMED Code(s): 487373289 (3) Diabetic gastroparesis Current Visit: Yes Status: Acute Code(s): E11.43 - TYPE 2 DIABETES W DIABETIC AUTONOMIC (POLY)NEUROPATHY; K31.84 - GASTROPARESIS SNOMED Code(s): 914362749 (4) Chronic abdominal pain Current Visit: No Status: Acute Priority: Medium Code(s): R10.9 - UNSPECIFIED ABDOMINAL PAIN; G89.29 - OTHER CHRONIC PAIN SNOMED Code(s): 421519337 (5) Hyperglycemia Current Visit: No Status: Acute Code(s): R73.9 - HYPERGLYCEMIA, UNSPECIFIED SNOMED Code(s): 36234349 (6) Uncontrolled diabetes mellitus Current Visit: No Status: Acute Code(s): NLF9730 - SNOMED Code(s): 65533878 Plan: 1. Continue symptomatic and supportive care 2. Continue antiemetics as ordered 3. Continue Protonix as ordered 4. Tigan added as needed 5. Diet as tolerated 6. Continue tube feedings per recommendations from dietitian 7. No plans on endoscopic evaluation 8. Recommend strict glycemic control which will help with gastroparesis and nausea and vomiting 9. Recommend patient follow-up with tapper hand and reschedule appointment for [facility] specialist for gastric pump placement. Discussed importance of medic call compliance with patient. 10. Avoid hepatotoxic medications. Antibiotics have been discontinued 11. Recommend reevaluating LFTs with outpatient CMP in 1 to 3 days. This can be done with primary care physician. If labs are not improving may refer to gastroenterology for outpatient follow-up. Thank you for this consultation, patient is cleared from gastroenterology for discharge. We will sign off at this time. Dr. Shakira Bear I agree with the dictator's note, documented as a scribe by Leigh Ordonez.
--- NOTE | 2023-10-31 12:17 | P.PN ---
Subjective Progress Note Date: 10/31/23 CHIEF COMPLAINT: Abdominal pain HISTORY OF PRESENT ILLNESS: Patient is postop day #7 status post laparoscopic cholecystectomy. Patient with no new complaints. Patient reports she is feeling better today. She reports that she is scheduled for discharge. She is tolerating diet. Tolerated the tube feeds. Afebrile. AST 208-305 ALT 201 to 203 alk phos 165-161. LFTs remained about the same. PHYSICAL EXAM: VITAL SIGNS: Reviewed. GENERAL: no acute distress. ABDOMEN: Soft. Nondistended. Incision sites clean dry and intact. NEUROLOGIC: Alert and oriented. Cranial nerves II through XII grossly intact. ASSESSMENT: 1. Chronic Cholecystitis status post laparoscopic cholecystectomy 2. Acute pancreatitis. Possible gallstone pancreatitis. 3. Elevated LFTs possibly due to antibiotics. Patient's antibiotics have been discontinued per ID service 4. History of chronic abdominal pain 5. Uncontrolled diabetes mellitus 6. History of gastroparesis PLAN: -Patient can be discharged from surgical standpoint -Continue to work on improving blood sugar control -Follow-up with gastroenterology regarding elevated LFTs Physician Big Data Admin note has been reviewed by physician. Signing provider agrees with the documented findings, assessment, and plan of care. Objective - Vital Signs Vital signs: Vital Signs Temp 98.4 F 10/31/23 07:20 Pulse 116 H 10/31/23 08:29 Resp 16 10/31/23 07:20 BP 113/74 10/31/23 07:20 Pulse Ox 98 10/31/23 07:20 FiO2 Intake & Output 10/30/23 10/31/23 10/31/23 18:59 06:59 18:59 Intake Total 1375 Balance 1375 Weight 36.5 kg Intake: Intake, IV Titration 800 Amount Sodium Chloride 0.9% 1, 800 000 ml @ 75 mls/hr IV . [id number] [facility] Rx#:[id number] Tube Feeding 575 Other: Voiding Method Bedside Commode Bedside Commode # Voids 3 2 # Bowel Movements 1 - Labs CBC & Chem 7: 10/29/23 08:05 10/31/23 07:15 Labs: Abnormal Lab Results - Last 24 Hours (Table) 10/30/23 10/30/23 10/30/23 Range/Units 14:15 16:44 17:16 Sodium 131 L (137-145) mmol/L Potassium 5.3 H 5.3 H (3.5-5.1) mmol/L Carbon Dioxide (22-30) mmol/L BUN 27 H (7-17) mg/dL Glucose 207 H (74-99) mg/dL POC Glucose (mg/dL) 119 H (70-110) mg/dL Calcium 8.3 L (8.4-10.2) mg/dL AST 208 H (14-36) U/L ALT 201 H (4-34) U/L Alkaline Phosphatase 165 H (38-126) U/L Total Protein 5.8 L (6.3-8.2) g/dL Albumin 2.8 L (3.5-5.0) g/dL 10/30/23 10/31/23 10/31/23 Range/Units 20:09 07:15 07:23 Sodium 133 L (137-145) mmol/L Potassium 5.2 H (3.5-5.1) mmol/L Carbon Dioxide 32 H (22-30) mmol/L BUN 29 H (7-17) mg/dL Glucose 290 H (74-99) mg/dL POC Glucose (mg/dL) 230 H 313 H (70-110) mg/dL Calcium 8.2 L (8.4-10.2) mg/dL AST 305 H (14-36) U/L ALT 203 H (4-34) U/L Alkaline Phosphatase 161 H (38-126) U/L Total Protein 5.6 L (6.3-8.2) g/dL Albumin 2.6 L (3.5-5.0) g/dL
--- NOTE | 2023-10-31 16:01 | P.PN ---
Subjective Progress Note Date: 10/30/23 Principal diagnosis: Reason for follow-up is leukocytosis/cholecystitis Patient is a 53-year-old female with a past medical history significant for diabetes mellitus hypertension did have chronic abdominal pain and gastroparesis for the patient did have a PEG tube placement for nutrition recent admission to the hospital and treated for ESBL UTI presenting back with a bdominal pain nausea vomiting elevated liver enzymes concerning for possible biliary sludge and cholangitis.Patient is status post laparoscopic cholecystectomy for cholecystitis completed on 10/24/2023 on today's evaluation that is 10/30/2023,the patient remains to be afebrile, patient is on room air not requiring supplemental oxygen and denies any shortness of breath no chest pain or cough.Patient denies having any nausea or vomiting, no abdominal pain and no diarrhea has been reported No CBC was done today creatinine 0.52 Objective - Vital Signs Vital signs: Vital Signs Temp 98.5 F 10/30/23 12:06 Pulse 112 H 10/30/23 12:06 Resp 16 10/30/23 12:06 BP 139/86 10/30/23 12:06 Pulse Ox 97 10/30/23 12:06 FiO2 Intake & Output 10/29/23 10/30/23 10/30/23 18:59 06:59 18:59 Weight 37.2 kg Other: Voiding Method Bedside Commode Bedside Commode # Voids 3 3 # Bowel Movements 1 1 - Exam GENERAL DESCRIPTION: Middle-aged female lying in bed in no distress RESPIRATORY SYSTEM: Unlabored breathing , decreased breath sounds at bases HEART: S1 S2 regular rate and rhythm , ABDOMEN: Soft , no tenderness EXTREMITIES: No edema feet - Labs CBC & Chem 7: 10/29/23 08:05 10/31/23 07:15 Labs: Abnormal Lab Results - Last 24 Hours (Table) 10/30/23 10/30/23 10/30/23 Range/Units 06:52 07:31 12:09 Sodium (137-145) mmol/L Potassium 6.0 H (3.5-5.5) mmol/L BUN (7-17) mg/dL BUN/Creatinine Ratio 40.83 H (12.00-20.00) Ratio Glucose 297 H (70-110) mg/dL POC Glucose (mg/dL) 296 H 293 H (70-110) mg/dL Calcium 8.5 L (8.7-10.3) mg/dL Total Bilirubin <0.2 L (0.3-1.2) mg/dL AST 306 H (13-35) U/L ALT 210 H (8-44) U/L Alkaline Phosphatase 169 H (41-126) U/L Total Protein 5.7 L (6.2-8.2) g/dL Albumin 3.0 L (3.8-4.9) g/dL Albumin/Globulin Ratio 1.11 L (1.60-3.17) Ratio // Range/Units 14:15 Sodium 131 L (137-145) mmol/L Potassium 5.3 H (3.5-5.5) mmol/L BUN 27 H (7-17) mg/dL BUN/Creatinine Ratio (12.00-20.00) Ratio Glucose 207 H (70-110) mg/dL POC Glucose (mg/dL) (70-110) mg/dL Calcium 8.3 L (8.7-10.3) mg/dL Total Bilirubin (0.3-1.2) mg/dL AST 208 H (13-35) U/L ALT 201 H (8-44) U/L Alkaline Phosphatase 165 H (41-126) U/L Total Protein 5.8 L (6.2-8.2) g/dL Albumin 2.8 L (3.8-4.9) g/dL Albumin/Globulin Ratio (1.60-3.17) Ratio Assessment and Plan (1) Leukocytosis Status: Acute Code(s): D72.829 - ELEVATED WHITE BLOOD CELL COUNT, UNSPECIFIED SNOMED Code(s): 392186643 (2) Cholecystitis Status: Acute Code(s): K81.9 - CHOLECYSTITIS, UNSPECIFIED SNOMED Code(s): 20621308 Plan: 1patient presented to hospital abdominal pain in this patient who did have elevated white count mildly elevated liver enzymes on admission per surgery interpretation of the ultrasound concerning for biliary sludge and may have passed a stone concern for possible cholangitis and will need to cover for the enteric gram-negative in this patient with recent ESBL infection we will try to cover for the residual gram-negative while waiting for the workup to be completed 2 patient is status post laparoscopic cholecystectomy, patient has received about a week of meropenem which should be more than enough currently being monitored closed off antibiotic therapy Dictation was produced using [employer] dictation software. please excuse any grammatical, word or spelling errors. Time with Patient: Less than 30
--- NOTE | 2023-10-31 16:02 | P.PN ---
Subjective Progress Note Date: 10/31/23 Principal diagnosis: Reason for follow-up is leukocytosis/cholecystitis Patient is a 53-year-old female with a past medical history significant for diabetes mellitus hypertension did have chronic abdominal pain and gastroparesis for the patient did have a PEG tube placement for nutrition recent admission to the hospital and treated for ESBL UTI presenting back with a bdominal pain nausea vomiting elevated liver enzymes concerning for possible biliary sludge and cholangitis.Patient is status post laparoscopic cholecystectomy for cholecystitis completed on 10/24/2023 on today's evaluation that is 10/31/2023, the patient continues to be afebrile, the patient is on room air and breathing comfortably, the Pt denies having any chest pain or cough, the patient denies having any abdominal pain no vomiting or any diarrhea, patient mention feeling better ready to go home. Patient did have a creatinine 0.54 no CBC was done today Objective - Vital Signs Vital signs: Vital Signs Temp 98.4 F 10/31/23 07:20 Pulse 116 H 10/31/23 08:29 Resp 16 10/31/23 07:20 BP 113/74 10/31/23 07:20 Pulse Ox 98 10/31/23 07:20 FiO2 Intake & Output 10/30/23 10/31/23 10/31/23 18:59 06:59 18:59 Intake Total 1375 Balance 1375 Weight 36.5 kg Intake: Intake, IV Titration 800 Amount Sodium Chloride 0.9% 1, 800 000 ml @ 75 mls/hr IV . [id number] [facility] Rx#:[id number] Tube Feeding 575 Other: Voiding Method Bedside Commode Bedside Commode # Voids 3 2 # Bowel Movements 1 - Exam GENERAL DESCRIPTION: Middle-aged female lying in bed in no distress RESPIRATORY SYSTEM: Unlabored breathing , decreased breath sounds at bases HEART: S1 S2 regular rate and rhythm , ABDOMEN: Soft , no tenderness EXTREMITIES: No edema feet - Labs CBC & Chem 7: 10/29/23 08:05 10/31/23 07:15 Labs: Abnormal Lab Results - Last 24 Hours (Table) 10/30/23 10/30/23 10/30/23 Range/Units 14:15 16:44 17:16 Sodium 131 L (137-145) mmol/L Potassium 5.3 H 5.3 H (3.5-5.1) mmol/L Carbon Dioxide (22-30) mmol/L BUN 27 H (7-17) mg/dL Glucose 207 H (74-99) mg/dL POC Glucose (mg/dL) 119 H (70-110) mg/dL Calcium 8.3 L (8.4-10.2) mg/dL AST 208 H (14-36) U/L ALT 201 H (4-34) U/L Alkaline Phosphatase 165 H (38-126) U/L Total Protein 5.8 L (6.3-8.2) g/dL Albumin 2.8 L (3.5-5.0) g/dL 10/30/23 10/31/23 10/31/23 Range/Units 20:09 07:15 07:23 Sodium 133 L (137-145) mmol/L Potassium 5.2 H (3.5-5.1) mmol/L Carbon Dioxide 32 H (22-30) mmol/L BUN 29 H (7-17) mg/dL Glucose 290 H (74-99) mg/dL POC Glucose (mg/dL) 230 H 313 H (70-110) mg/dL Calcium 8.2 L (8.4-10.2) mg/dL AST 305 H (14-36) U/L ALT 203 H (4-34) U/L Alkaline Phosphatase 161 H (38-126) U/L Total Protein 5.6 L (6.3-8.2) g/dL Albumin 2.6 L (3.5-5.0) g/dL Assessment and Plan (1) Leukocytosis Status: Acute Code(s): D72.829 - ELEVATED WHITE BLOOD CELL COUNT, UNSPECIFIED SNOMED Code(s): 201047927 (2) Cholecystitis Status: Acute Code(s): K81.9 - CHOLECYSTITIS, UNSPECIFIED SNOMED Code(s): 98223834 Plan: 1patient presented to hospital abdominal pain in this patient who did have elevated white count mildly elevated liver enzymes on admission per surgery interpretation of the ultrasound concerning for biliary sludge and may have passed a stone concern for possible cholangitis and will need to cover for the enteric gram-negative in this patient with recent ESBL infection we will try to cover for the residual gram-negative while waiting for the workup to be completed 2 patient is status post laparoscopic cholecystectomy, patient has received about a week of meropenem which should be more than enough, no need for antibiotics on discharge questions concerns were answered Dictation was produced using [employer] dictation software. please excuse any grammatical, word or spelling errors. Time with Patient: Less than 30
== END 2023-10-31 12:20 | disposition home or self-care (01) | DRG 418 ==
LOC: EC 08:06 → 6NMEDSUR 13:24 → 5NMEDONC 20:11 → OBSVTOIN 10-23 08:29
PROVIDERS: ADMIT Family Medicine; ATTEND Family Medicine
PROC: 3E0336Z Introduction of Nutritional Substance into Peripheral Vein, Percutaneous Approach (ICD-10-PCS; 2023-10-24)
PROC: 0FT44ZZ Resection of Gallbladder, Percutaneous Endoscopic Approach (ICD-10-PCS; principal; 2023-10-24 11:15)
DX: K85.10 Biliary acute pancreatitis without necrosis or infection (principal); R64 Cachexia; Z68.1 Body mass index [BMI] 19.9 or less, adult; K86.1 Other chronic pancreatitis; E10.43 Type 1 diabetes mellitus with diabetic autonomic (poly)neuropathy; E10.65 Type 1 diabetes mellitus with hyperglycemia; K31.84 Gastroparesis; Z93.1 Gastrostomy status; E10.42 Type 1 diabetes mellitus with diabetic polyneuropathy; G89.29 Other chronic pain; K81.1 Chronic cholecystitis; K83.8 Other specified diseases of biliary tract; K29.70 Gastritis, unspecified, without bleeding; I10 Essential (primary) hypertension; Z87.440 Personal history of urinary (tract) infections; Z79.4 Long term (current) use of insulin; Z79.899 Other long term (current) drug therapy; Z87.19 Personal history of other diseases of the digestive system; Z88.5 Allergy status to narcotic agent; T36.95XA Adverse effect of unspecified systemic antibiotic, initial encounter; X58.XXXA Exposure to other specified factors, initial encounter; Z98.51 Tubal ligation status
CPT/HCPCS: 36415; 74240; 76705; 80053; 81001; 81025; 82150; 83036; 83605; 83690; 83735; 83930; 84132; 85025; 86140; 87040; 87636; 88304; 94640; 96361; 96374; 96375; 99285

== ENCOUNTER 2023-12-09 09:50 | Inpatient (IN) | payer MEDICARE, OTHER ==
--- NOTE | 2023-12-09 10:04 | ED ---
Abdominal Pain HPI - General Chief Complaint: Abdominal Pain Stated Complaint: NVD Time Seen by Provider: 12/09/23 10:04 Source: patient, RN notes reviewed Mode of arrival: ambulatory Limitations: no limitations - History of Present Illness Initial Comments: One 53-year-old female with history of gastroparesis who presents emergency department chief complaint nausea, vomiting, and diarrhea worsening over the past 2 days. She denies hematemesis, hematochezia, dark or tarry stools. She was advised to report to emergency department this morning for further evaluation. She endorses diffuse abdominal pain. She denies chest pain, chest pressure, dyspnea, hematuria, increase in frequency or urgency. She denies fevers, chills, body aches. Patient has a J-tube in place states that she uses daily tube feeds. - Related Data Home Medications Medication Instructions Recorded Confirmed ALPRAZolam [Xanax] 0.25 mg PO BID PRN 05/12/23 12/09/23 Atorvastatin [Lipitor] 20 mg PO DAILY 05/12/23 12/09/23 DULoxetine HCL [Cymbalta] 30 mg PO DAILY 05/12/23 12/09/23 Insulin Lispro [humaLOG Kwikpen] 2 unit SQ AC-TID 05/12/23 12/09/23 Ipratropium-Albuterol Nebulize 3 ml INHALATION RT-BID 05/12/23 12/09/23 [Duoneb 0.5 mg-3 mg/3 ml Soln] Mirtazapine [Remeron] 30 mg PO HS 05/12/23 12/09/23 Folic Acid 1 mg PO DAILY 06/15/23 12/09/23 HYDROcodone/APAP 7.5-325MG [[place] 1 tab PO TID PRN 08/25/23 12/09/23 7.5-325] Ferrous Sulfate [Feosol] 325 mg PO DAILY 12/09/23 12/09/23 Insulin Glargine [Lantus Vial] 4 unit SQ DAILY 12/09/23 12/09/23 Potassium Bicarb-Citric Acid 20 meq PO DAILY 12/09/23 12/09/23 (Effer-K) 20meq Tab Scopolamine [Scopolamine 1 MG/72 1 patch TRANSDERM Q72H 12/09/23 12/09/23 HR patch] Previous Rx's Medication Instructions Recorded Metoclopramide [Reglan] 10 mg PO ACHS 30 Days #120 tab 05/15/23 Pantoprazole [Protonix] 40 mg PO AC-BID 30 Days #60 tab 05/21/23 Ondansetron [Zofran] 4 mg PO DAILY 30 Days #30 tab 06/26/23 Acetaminophen Tab [Tylenol] 650 mg PO Q6HR PRN tab 10/16/23 Loperamide [Imodium] 2 mg PO QID PRN cap 10/16/23 Prochlorperazine Maleate 10 mg PO AC-BID 30 Days #60 tab 10/30/23 Allergies Allergy/AdvReac Type Severity Reaction Status Date / Time fentanyl Allergy Unknown Verified 12/09/23 11:53 Review of Systems ROS Statement: Those systems with pertinent positive or pertinent negative responses have been documented in the HPI. ROS Other: All systems not noted in ROS Statement are negative. Past Medical History Past Medical History: Diabetes Mellitus, Hypertension, Musculoskeletal Disorder Additional Past Medical History / Comment(s): FREQ NAUSEA, PAINFUL RT SHOULDER "FROZEN SHOULDER", NEUROPATHY PORFIRIO LEGS and hands, Blood pressures can run high History of Any Multi-Drug Resistant Organisms: ESBL, MRSA, VRE Date of last positivie culture/infection: 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;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 MDRO Source:: Urine VRE and ESBL, MRSA-ABD Past Surgical History: Orthopedic Surgery, Tubal Ligation Additional Past Surgical History / Comment(s): rt shoulder Past Anesthesia/Blood Transfusion Reactions: No Reported Reaction Additional Past Anesthesia/Blood Transfusion Reaction / Comment(s): UNK FAMILY HX Past Psychological History: Anxiety Smoking Status: Current every day smoker Past Alcohol Use History: None Reported Past Drug Use History: None Reported - Past Family History Father History Unknown: Yes Additional Family Medical History / Comment(s): unknown-adopted Mother History Unknown: Yes Additional Family Medical History / Comment(s): unknown- adopted General Exam Limitations: no limitations General appearance: alert, cachectic Head exam: Present: atraumatic, normocephalic, normal inspection Eye exam: Present: normal appearance, PERRL, EOMI. Absent: scleral icterus, conjunctival injection, periorbital swelling ENT exam: Present: normal exam, mucous membranes moist Neck exam: Present: normal inspection. Absent: tenderness, meningismus, ly mphadenopathy Respiratory exam: Present: normal lung sounds bilaterally. Absent: respiratory distress, wheezes, rales, rhonchi, stridor Cardiovascular Exam: Present: regular rate, normal rhythm, normal heart sounds. Absent: systolic murmur, diastolic murmur, rubs, gallop, clicks GI/Abdominal exam: Present: soft, tenderness (diffuse), hyperactive bowel sounds. Absent: guarding, rebound, rigid Extremities exam: Present: normal inspection, full ROM, normal capillary refill. Absent: tenderness, pedal edema, joint swelling, calf tenderness Back exam: Present: normal inspection Neurological exam: Present: alert, oriented X3, CN II-XII intact Psychiatric exam: Present: normal affect, normal mood Skin exam: Present: warm, dry, intact, normal color. Absent: rash Course Vital Signs 12/09/23 12/09/23 12/09/23 09:54 11:24 13:00 Temperature 97.5 F L Pulse Rate 125 H 105 H 104 H Respiratory 16 18 20 Rate Blood Pressure 106/75 111/75 114/78 O2 Sat by Pulse 98 97 97 Oximetry 12/09/23 12/09/23 12/09/23 15:55 20:08 22:02 Temperature 98.1 F Pulse Rate 106 H 106 H 107 H Respiratory 15 17 17 Rate Blood Pressure 146/94 119/75 119/75 O2 Sat by Pulse 100 96 99 Oximetry Medical Decision Making - Medical Decision Making Was pt. sent in by a medical professional or institution (, PA, BRANCH OR DEPARTMENT CHIEF LIBRARIAN, urgent care, hospital, or fdc...) When possible be specific @ -Patient was advised by PCP, Dr. Pike, to reports to the emergency department for nausea, vomiting, diarrhea. Did you speak to anyone other than the patient for history (EMS, parent, family, police, friend...)? What history was obtained from this source @ -No Did you review nursing and triage notes (agree or disagree)? Why? @ -I reviewed and agree with nursing and triage notes Were old charts reviewed (outside hosp., previous admission, EMS record, old EKG, old radiological studies, urgent care reports/EKG's, fdc records)? Report findings @ -No old charts were reviewed Differential Diagnosis (chest pain, altered mental status, abdominal pain women, abdominal pain men, vaginal bleeding, weakness, fever, dyspnea, syncope, headache, dizziness, GI bleed, back pain, seizure, CVA, palpatations, mental health, musculoskeletal)? @ -Differential Abdominal Pain Women: Appendicitis, Cholecystitis, diverticulosis, ischemic bowel, pancreatitis, hepatitis, UTI, gastroenteritis, AAA, incarcerated hernia, bowel obstruction, constipation, inflammatory bowel, hepatitis, peptic ulcer disease, splenic infarction, perforated viscus, vulvitis, ovarian torsion, PID, kidney stone, placenta abruption, this is not meant to be an all-inclusive list EKG interpreted by me (3pts min.). @ -None X-rays interpreted by me (1pt min.). @ -None done CT interpreted by me (1pt min.). @ -None done U/S interpreted by me (1pt. min.). @ -None done What testing was considered but not performed or refused? (CT, X-rays, U/S, labs)? Why? @ -None What meds were considered but not given or refused? Why? @ -None Did you discuss the management of the patient with other professionals (robert whatley i.e. , PA, BRANCH OR DEPARTMENT CHIEF LIBRARIAN, lab, RT, psych nurse, clinical social worker, regrinder, teacher, commanding officer traffic division, residential case manager)? Give summary @ -Spoke to patient's primary care provider, Dr. Pike, in regard to the patient's laboratory studies remarkable for alkalosis and hyperglycemia, patient is accepted for admission. Was smoking cessation discussed for >3mins.? @ -No Was critical care preformed (if so, how long)? @ -No Were there social determinants of health that impacted care today? How? (Homelessness, low income, unemployed, alcoholism, drug addiction, transportation, low edu. Level, literacy, decrease access to med. care, prison, rehab)? @ -No Was there de-escalation of care discussed even if they declined (Discuss DNR or withdrawal of care, Hospice)? DNR status @ -No What co-morbidities impacted this encounter? (DM, HTN, Smoking, COPD, CAD, Cancer, CVA, ARF, Chemo, Hep., AIDS, mental health diagnosis, sleep apnea, morbid obesity)? @ -DM Was patient admitted / discharged? Hospital course, mention meds given and route, prescriptions, significant lab abnormalities, going to OR and other pertinent info. @ -Admitted. 33-year-old female with gastroparesis with nausea, vomiting, diarrhea. On examination patient is cachectic and has clinical signs of dehydration. She will be empirically treated with IV fluids and labs will be ordered. She is also provided with antiemetics and pain medication. labs reveal leukocytosis of 14.0, elevated neutrophils 1.9. non- Anion gap metabolic alkalosis with CO2 of 5 and chloride of 83. Elevated glucose of 735. Patient was provided with 10 units of insulin and internal medicine consulted for admission and accepting. Case discussed with Dr. Ott. Undiagnosed new problem with uncertain prognosis? @ -No Drug Therapy requiring intensive monitoring for toxicity (Heparin, Nitro, Insulin, Cardizem)? @ -No Were any procedures done? @ -No Diagnosis/symptom? @ -hyperglycemia, nausea and vomiting Acute, or Chronic, or Acute on Chronic? @ -Acute on chronic Uncomplicated (without systemic symptoms) or Complicated (systemic symptoms)? @ -complicated Side effects of treatment? @ -No Exacerbation, Progression, or Severe Exacerbation? @ -No Poses a threat to life or bodily function? How? (Chest pain, USA, PA, pneumonia, PE, COPD, DKA, ARF, appy, cholecystitis, CVA, Diverticulitis, Homicidal, Suicidal, threat to staff... and all critical care pts) @ -potentially, untreated hyperglycemia can lead to multiorgan system dysfu nction. - Lab Data Result diagrams: 12/11/23 09:18 12/13/23 07:53 Lab Results 12/09/23 12/09/23 12/09/23 Range/Units 10:22 10:22 10:22 WBC 14.0 H (3.8-10.6) k/uL RBC 4.66 (3.80-5.40) m/uL Hgb 12.9 (11.4-16.0) gm/dL Hct 42.9 (34.0-46.0) % MCV 92.2 (80.0-100.0) fL MCH 27.6 (25.0-35.0) pg MCHC 30.0 L (31.0-37.0) g/dL RDW 14.4 (11.5-15.5) % Plt Count 624 H (150-450) k/uL MPV 8.1 Neutrophils % 85 % Lymphocytes % 10 % Monocytes % 3 % Eosinophils % 1 % Basophils % 1 % Neutrophils # 11.9 H (1.3-7.7) k/uL Lymphocytes # 1.4 (1.0-4.8) k/uL Monocytes # 0.5 (0-1.0) k/uL Eosinophils # 0.1 (0-0.7) k/uL Basophils # 0.1 (0-0.2) k/uL Hypochromasia Slight Sodium 127 L (137-145) mmol/L Potassium 4.0 (3.5-5.1) mmol/L Chloride 83 L (98-107) mmol/L Carbon Dioxide 35 H (22-30) mmol/L Anion Gap 9 mmol/L BUN 28 H (7-17) mg/dL Creatinine 0.65 (0.52-1.04) mg/dL Est GFR (CKD-EPI)AfAm >90 (>60 ml/min/1.73 sqM) Est GFR (CKD-EPI)NonAf >90 (>60 ml/min/1.73 sqM) Glucose 735 H* (74-99) mg/dL Plasma Lactic Acid [place] (0.7-2.0) mmol/L Calcium 8.9 (8.4-10.2) mg/dL Phosphorus 4.1 (2.5-4.5) mg/dL Magnesium 2.5 H (1.6-2.3) mg/dL Total Bilirubin 0.6 (0.2-1.3) mg/dL AST 18 (14-36) U/L ALT 13 (4-34) U/L Alkaline Phosphatase 194 H (38-126) U/L Total Protein 7.2 (6.3-8.2) g/dL Albumin 3.5 (3.5-5.0) g/dL Amylase 74 (30-110) U/L Lipase 485 H (23-300) U/L Urine Color Colorless Urine Appearance Turbid H (Clear) Urine pH 6.5 (5.0-8.0) Ur Specific [place] 1.021 (1.001-1.035) Urine Protein 2+ H (Negative) Urine Glucose (UA) 4+ H (Negative) Urine Ketones Trace H (Negative) Urine Blood Small H (Negative) Urine Nitrite Negative (Negative) Urine Bilirubin Negative (Negative) Urine Urobilinogen <2.0 (<2.0) mg/dL Ur Leukocyte Esterase Large H (Negative) Urine RBC 14 H (0-5) /hpf Urine WBC >182 H (0-5) /hpf Urine WBC Clumps Many H (None) /hpf Ur Squamous Epith Cells 1 (0-4) /hpf Acetone, Qual (Negative) 12/09/23 12/09/23 Range/Units 10:22 10:22 WBC (3.8-10.6) k/uL RBC (3.80-5.40) m/uL Hgb (11.4-16.0) gm/dL Hct (34.0-46.0) % MCV (80.0-100.0) fL MCH (25.0-35.0) pg MCHC (31.0-37.0) g/dL RDW (11.5-15.5) % Plt Count (150-450) k/uL MPV Neutrophils % % Lymphocytes % % Monocytes % % Eosinophils % % Basophils % % Neutrophils # (1.3-7.7) k/uL Lymphocytes # (1.0-4.8) k/uL Monocytes # (0-1.0) k/uL Eosinophils # (0-0.7) k/uL Basophils # (0-0.2) k/uL Hypochromasia Sodium (137-145) mmol/L Potassium (3.5-5.1) mmol/L Chloride (98-107) mmol/L Carbon Dioxide (22-30) mmol/L Anion Gap mmol/L BUN (7-17) mg/dL Creatinine (0.52-1.04) mg/dL Est GFR (CKD-EPI)AfAm (>60 ml/min/1.73 sqM) Est GFR (CKD-EPI)NonAf (>60 ml/min/1.73 sqM) Glucose (74-99) mg/dL Plasma Lactic Acid [place] 1.6 (0.7-2.0) mmol/L Calcium (8.4-10.2) mg/dL Phosphorus (2.5-4.5) mg/dL Magnesium (1.6-2.3) mg/dL Total Bilirubin (0.2-1.3) mg/dL AST (14-36) U/L ALT (4-34) U/L Alkaline Phosphatase (38-126) U/L Total Protein (6.3-8.2) g/dL Albumin (3.5-5.0) g/dL Amylase (30-110) U/L Lipase (23-300) U/L Urine Color Urine Appearance (Clear) Urine pH (5.0-8.0) Ur Specific [place] (1.001-1.035) Urine Protein (Negative) Urine Glucose (UA) (Negative) Urine Ketones (Negative) Urine Blood (Negative) Urine Nitrite (Negative) Urine Bilirubin (Negative) Urine Urobilinogen (<2.0) mg/dL Ur Leukocyte Esterase (Negative) Urine RBC (0-5) /hpf Urine WBC (0-5) /hpf Urine WBC Clumps (None) /hpf Ur Squamous Epith Cells (0-4) /hpf Acetone, Qual Positive (Negative) Disposition Clinical Impression: Hyperglycemia, Nausea & vomiting Disposition: ADMITTED IP TO THIS [facility] Condition: Good Decision to Admit Reason: Admit from EC Decision Date: 12/09/23 Decision Time: 11:27
[2023-12-09] MEDS: HYDROmorphone 0.5 MG/0.5 ML SYRINGE IVP STA (10:24)
[2023-12-09] MEDS: ONDANSETRON 4 MG/2 ML VIAL IVP STA (10:25)
[2023-12-09] MEDS: SODIUM CHLORIDE 0.9% 1,000 ML IV STA (10:25)
[2023-12-09 10:35] LABS: Basophils # (A) 0.1 k/uL (0-0.2); Basophils % (A) 1 %; Eosinophils # (A) 0.1 k/uL (0-0.7); Eosinophils % (A) 1 %; HCT 42.9 % (34.0-46.0); HGB 12.9 gm/dL (11.4-16.0); Hypochromasia Slight; Lymphocytes # (A) 1.4 k/uL (1.0-4.8); Lymphocytes % (A) 10 %; MCH 27.6 pg (25.0-35.0); MCV 92.2 fL (80.0-100.0); Mean Platelet Volume 8.1; Monocytes # (A) 0.5 k/uL (0-1.0); Monocytes % (A) 3 %; Neutrophils # (A) 11.9 k/uL (1.3-7.7); Neutrophils % (A) 85 %; Platelet Count 624 k/uL (150-450); RBC 4.66 m/uL (3.80-5.40); RDW 14.4 % (11.5-15.5)
[2023-12-09 10:46] LABS: ALT 13 U/L (4-34); AST 18 U/L (14-36); African American GFR (CKD) >90 (>60 ml/min/1.73 sqM); Albumin 3.5 g/dL (3.5-5.0); Alkaline Phosphatase 194 U/L (38-126); Amylase 74 U/L (30-110); Anion Gap 9 mmol/L; Blood Urea Nitrogen 28 mg/dL (7-17); Calcium 8.9 mg/dL (8.4-10.2); Carbon Dioxide 35 mmol/L (22-30); Chloride 83 mmol/L (98-107); Lipase 485 U/L (23-300); Magnesium 2.5 mg/dL (1.6-2.3); Non-African American GFR(CKD) >90 (>60 ml/min/1.73 sqM); Phosphorus 4.1 mg/dL (2.5-4.5); Sodium 127 mmol/L (137-145); Total Bilirubin 0.6 mg/dL (0.2-1.3); Total Protein 7.2 g/dL (6.3-8.2)
[2023-12-09 10:58] LABS: Glucose 735 mg/dL (74-99)
[2023-12-09] MEDS ORDERED: NALOXONE 0.4 MG/ML 1 ML VIAL IV PRN (11:27)
[2023-12-09] MEDS: INSULIN REGULAR 100 UNIT/ML VIAL (IV) IV ONE ×2 (11:35→12:12)
[2023-12-09] MEDS: HYDROmorphone 1 MG/ML 1 ML SYRINGE IVP PRN (12:37)
[2023-12-09 13:33] LABS: Glucose,Whole Blood 468 mg/dL (70-110)
[2023-12-09 15:56] LABS: Glucose,Whole Blood 400 mg/dL (70-110)
[2023-12-09 21:15] LABS: Appearance,Urine Turbid (Clear); Bilirubin,Urine Negative (Negative); Blood,Urine Small (Negative); Color,Urine Colorless; Glucose,Urine (UA) 4+ (Negative); Ketones,Urine Trace (Negative); Leukocyte Esterase,Urine Large (Negative); Nitrite,Urine Negative (Negative); PH, Urine 6.5 (5.0-8.0); Protein,Urine 2+ (Negative); RBC,Urine 14 /hpf (0-5); Specific Gravity,Urine 1.021 (1.001-1.035); Squamous Epithelial Cell,Urine 1 /hpf (0-4); Urobilinogen,Urine <2.0 mg/dL (<2.0); WBC,Urine >182 /hpf (0-5)
[2023-12-09 23:09] LABS: Glucose,Whole Blood 407 mg/dL (70-110)
[2023-12-10] MEDS ORDERED: DEXTROSE 50% SYRINGE 50 ML IVP PRN ×2 (00:05)
[2023-12-10 00:53] LABS: Glucose,Whole Blood 385 mg/dL (70-110)
[2023-12-10] MEDS ORDERED: ACETAMINOPHEN TAB 325 MG TAB PO PRN (02:04)
[2023-12-10] MEDS ORDERED: ALPRAZolam 0.25 MG TAB PO PRN (02:04)
[2023-12-10] MEDS ORDERED: ZINC OXIDE PASTE (Z-GUARD) 1 APPLIC TOPICAL PRN (02:14)
[2023-12-10 05:54] LABS: Glucose,Whole Blood 446 mg/dL (70-110)
[2023-12-10] MEDS: PANTOPRAZOLE 40 MG TABLET PO SCH (06:14)
[2023-12-10] MEDS: INSULIN ASPART (NovoLOG) 100 UNIT/ML VIAL SQ SCH ×4 (06:14→18:42)
[2023-12-10] MEDS: PROCHLORPERAZINE 10 MG TAB PO SCH (06:14)
[2023-12-10] MEDS: INSULIN DETEMIR (LEVEMIR) 100 UNIT/ML SYR SQ SCH (06:15)
[2023-12-10 06:54] LABS: Glucose,Whole Blood 438 mg/dL (70-110)
[2023-12-10 08:24] LABS: Basophils # (A) 0.1 k/uL (0-0.2); Basophils % (A) 1 %; Eosinophils # (A) 0.1 k/uL (0-0.7); Eosinophils % (A) 1 %; Hypochromasia Moderate; Lymphocytes # (A) 1.1 k/uL (1.0-4.8); Lymphocytes % (A) 9 %; MCV 93.2 fL (80.0-100.0); Mean Platelet Volume 8.1; Monocytes # (A) 0.5 k/uL (0-1.0); Monocytes % (A) 4 %; Neutrophils % (A) 85 %; Platelet Count 467 k/uL (150-450); RBC 4.29 m/uL (3.80-5.40); RDW 14.3 % (11.5-15.5); WBC 11.8 k/uL (3.8-10.6)
[2023-12-10] MEDS: IPRATROPIUM-ALBUTEROL 3 ML NEB INHALATION SCH (08:33)
[2023-12-10] MEDS: DULoxetine HCL 30 MG CAPSULE.DR PO SCH (08:47)
[2023-12-10] MEDS: ATORVASTATIN 20 MG TAB PO SCH (08:47)
[2023-12-10] MEDS: FOLIC ACID 1 MG TAB PO SCH (08:47)
[2023-12-10] MEDS: FERROUS SULFATE 325 MG TAB PO SCH (08:47)
[2023-12-10 08:48] LABS: ALT 12 U/L (4-34); AST 21 U/L (14-36); African American GFR (CKD) >90 (>60 ml/min/1.73 sqM); Albumin 2.9 g/dL (3.5-5.0); Alkaline Phosphatase 137 U/L (38-126); Anion Gap 6 mmol/L; Blood Urea Nitrogen 16 mg/dL (7-17); Calcium 8.2 mg/dL (8.4-10.2); Carbon Dioxide 24 mmol/L (22-30); Chloride 102 mmol/L (98-107); Glucose 368 mg/dL (74-99); Magnesium 2.1 mg/dL (1.6-2.3); Non-African American GFR(CKD) >90 (>60 ml/min/1.73 sqM); Potassium 3.6 mmol/L (3.5-5.1); Sodium 132 mmol/L (137-145); Total Bilirubin 0.4 mg/dL (0.2-1.3); Total Protein 6.4 g/dL (6.3-8.2)
[2023-12-10] MEDS: ONDANSETRON 4 MG TAB PO PRN (09:46)
[2023-12-10 11:56] LABS: Glucose,Whole Blood 128 mg/dL (70-110)
[2023-12-10] MEDS: METOCLOPRAMIDE 10 MG TAB PO PRN (12:12)
[2023-12-10] MEDS ORDERED: cefTRIAXone 1,000 MG VIAL (IM USE) IM SCH (13:00)
[2023-12-10] MEDS ORDERED: VANCOMYCIN IV PER PHARMACY 1 EACH MISC MISCELLANE PRN (13:29)
[2023-12-10] MEDS: SODIUM CHLORIDE 0.9% 1,000 ML IV SCH (16:47)
[2023-12-10] MEDS: VANCOMYCIN 750 MG in SODIUM CHLORIDE 0.9% 250 ML IVPB ONE (16:48)
[2023-12-10] MEDS ORDERED: INSULIN ASPART (NovoLOG) 100 UNIT/ML VIAL SQ SCH (17:30)
[2023-12-10 18:04] LABS: Glucose,Whole Blood 94 mg/dL (70-110)
[2023-12-10] MEDS: HYDROcodone/APAP 7.5-325MG 1 EACH TAB PO PRN (19:31)
[2023-12-10] MEDS: MIRTAZAPINE 15 MG TAB PO SCH (19:32)
--- NOTE | 2023-12-10 22:16 | P.CONS ---
History of Present Illness - Reason for Consult Consult date: 12/10/23 Left wrist cellulitis Requesting physician: Dell Pike - Chief Complaint Left wrist pain and swelling x days - History of Present Illness Patient is a 53-year-old female with a past medical history of Diabetes mellitus hypertension gastroparesis multiple admission to the hospital apparently was recently admitted at [facility] with the patient did have an IV to the left wrist area that may have gotten infected and subsequently developing increasing pain swelling redness to the left wrist area for which infectious disease was consulted for further management today patient denies having any fever or any chills and did not have any fever on presentation to the hospital has been complaining of pain to the left breast area mostly to the left lateral border to be sharp moderate intensity without radiation with associated swelling redness but no drainage patient did have a white count of 14,000 with a left shift creatinine is 0.65 liver enzymes are normal urine was positive for patient has been treated with ceftriaxone infectious he was consulted for further management of antibiotic therapy Review of Systems Positive point and negatives has been mentioned in the HPI, complete review of systems was performed and all other systems are negative 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 MDRO Source:: Urine VRE and ESBL, MRSA-ABD Past Surgical History: Cholecystectomy, Orthopedic Surgery, Tubal Ligation Additional Past Surgical History / Comment(s): rt shoulder, J tube placement Past Anesthesia/Blood Transfusion Reactions: No Reported Reaction Additional Past Anesthesia/Blood Transfusion Reaction / Comm: UNK FAMILY HX Past Psychological History: Anxiety Smoking Status: Current every day smoker Past Alcohol Use History: None Reported Additional Past Alcohol Use History / Comment(s): STARTED SMOKING 1987, smokes about 6 cigs/day Past Drug Use History: None Reported Additional Drug Use History / Comment(s): Patient denies using marijuana. - Past Family History Father History Unknown: Yes Additional Family Medical History / Comment(s): unknown-adopted Mother History Unknown: Yes Additional Family Medical History / Comment(s): unknown- adopted Medications and Allergies Home Medications Medication Instructions Recorded Confirmed Type ALPRAZolam [Xanax] 0.25 mg PO BID PRN 05/12/23 12/09/23 History Atorvastatin [Lipitor] 20 mg PO DAILY 05/12/23 12/09/23 History DULoxetine HCL [Cymbalta] 30 mg PO DAILY 05/12/23 12/09/23 History Insulin Lispro [humaLOG Kwikpen] 2 unit SQ AC-TID 05/12/23 12/09/23 History Ipratropium-Albuterol Nebulize 3 ml INHALATION RT-BID 05/12/23 12/09/23 History [Duoneb 0.5 mg-3 mg/3 ml Soln] Mirtazapine [Remeron] 30 mg PO HS 05/12/23 12/09/23 History Metoclopramide [Reglan] 10 mg PO ACHS 30 Days #120 tab 05/15/23 12/09/23 Rx Pantoprazole [Protonix] 40 mg PO AC-BID 30 Days #60 tab 05/21/23 12/09/23 Rx Folic Acid 1 mg PO DAILY 06/15/23 12/09/23 History Ondansetron [Zofran] 4 mg PO DAILY 30 Days #30 tab 06/26/23 12/09/23 Rx HYDROcodone/APAP 7.5-325MG [Girard 1 tab PO TID PRN 08/25/23 12/09/23 History 7.5-325] Acetaminophen Tab [Tylenol] 650 mg PO Q6HR PRN tab 10/16/23 12/09/23 Rx Loperamide [Imodium] 2 mg PO QID PRN cap 10/16/23 12/09/23 Rx Prochlorperazine Maleate 10 mg PO AC-BID 30 Days #60 tab 10/30/23 12/09/23 Rx Ferrous Sulfate [Iron (65 MG 325 mg PO DAILY 12/09/23 12/09/23 History Elemental)] Insulin Glargine [Lantus Vial] 4 unit SQ DAILY 12/09/23 12/09/23 History Potassium Bicarb-Citric Acid 20 meq PO DAILY 12/09/23 12/09/23 History (Effer-K) 20meq Tab Scopolamine [Scopolamine 1 MG/72 1 patch TRANSDERM Q72H 12/09/23 12/09/23 History HR patch] Doxycycline [Vibramycin] 100 mg PO BID 30 Days #60 cap 12/19/23 Rx amLODIPine [Norvasc] 5 mg PO DAILY 90 Days #90 tab 12/19/23 Rx Allergies Allergy/AdvReac Type Severity Reaction Status Date / Time fentanyl Allergy Unknown Verified 12/09/23 11:53 Physical Exam Vitals: Vital Signs Temp Pulse Pulse Resp BP BP Pulse Ox 12/10/23 09:16 100 16 12/10/23 08:46 100 12/10/23 08:41 97.0 F L 100 16 101/67 100 12/10/23 08:33 100 12/10/23 03:02 97.8 F 104 H 16 134/80 95 12/10/23 00:24 97.6 F 110 H 16 119/80 93 L 12/09/23 22:02 107 H 17 119/75 99 12/09/23 20:08 106 H 17 119/75 96 12/09/23 15:55 98.1 F 106 H 15 146/94 100 12/09/23 13:00 104 H 20 114/78 97 Intake and Output 12/09/23 12/10/23 12/10/23 22:59 06:59 14:59 Other: Voiding Method Diaper Diaper Incontinent Incontinent # Voids 0 # Bowel Movements 1 0 Weight 36.287 kg GENERAL DESCRIPTION: Middle-aged female lying in bed, no distress. No tachypnea or accessory muscle of respiration use. HEENT: Shows Pallor , no scleral icterus. Oral mucous membrane is dry. No pharyngeal erythema or thrush NECK: Trachea central, no thyromegaly. LUNGS: Unlabored breathing. Clear to auscultation anteriorly. No wheeze or crackle. HEART: S1, S2, regular rate and rhythm. No loud murmur ABDOMEN: Soft, no tenderness , guarding or rigidity, no organomegaly EXTREMITIES: Left lateral wrist area did have area of swelling redness induration but no drainage. SKIN: No rash, no masses palpable. NEUROLOGICAL: The patient is awake, alert, oriented x3, mood and affect normal. Results CBC & Chem 7: 12/15/23 06:03 12/18/23 06:04 Labs: Abnormal Lab Results - Last 24 Hours (Table) 12/09/23 12/09/23 12/09/23 Range/Units 10:22 13:31 15:55 WBC (3.8-10.6) k/uL MCHC (31.0-37.0) g/dL Plt Count (150-450) k/uL Neutrophils # (1.3-7.7) k/uL Sodium (137-145) mmol/L Glucose (74-99) mg/dL POC Glucose (mg/dL) 468 H 400 H (70-110) mg/dL Calcium (8.4-10.2) mg/dL Alkaline Phosphatase (38-126) U/L Albumin (3.5-5.0) g/dL Urine Appearance Turbid H (Clear) Urine Protein 2+ H (Negative) Urine Glucose (UA) 4+ H (Negative) Urine Ketones Trace H (Negative) Urine Blood Small H (Negative) Ur Leukocyte Esterase Large H (Negative) Urine RBC 14 H (0-5) /hpf Urine WBC >182 H (0-5) /hpf Urine WBC Clumps Many H (None) /hpf 12/09/23 12/10/23 12/10/23 Range/Units 23:07 00:51 05:53 WBC (3.8-10.6) k/uL MCHC (31.0-37.0) g/dL Plt Count (150-450) k/uL Neutrophils # (1.3-7.7) k/uL Sodium (137-145) mmol/L Glucose (74-99) mg/dL POC Glucose (mg/dL) 407 H 385 H 446 H (70-110) mg/dL Calcium (8.4-10.2) mg/dL Alkaline Phosphatase (38-126) U/L Albumin (3.5-5.0) g/dL Urine Appearance (Clear) Urine Protein (Negative) Urine Glucose (UA) (Negative) Urine Ketones (Negative) Urine Blood (Negative) Ur Leukocyte Esterase (Negative) Urine RBC (0-5) /hpf Urine WBC (0-5) /hpf Urine WBC Clumps (None) /hpf 12/10/23 12/10/23 12/10/23 Range/Units 06:53 07:40 07:40 WBC 11.8 H (3.8-10.6) k/uL MCHC 30.0 L (31.0-37.0) g/dL Plt Count 467 H (150-450) k/uL Neutrophils # 10.0 H (1.3-7.7) k/uL Sodium 132 L (137-145) mmol/L Glucose 368 H (74-99) mg/dL POC Glucose (mg/dL) 438 H (70-110) mg/dL Calcium 8.2 L (8.4-10.2) mg/dL Alkaline Phosphatase 137 H (38-126) U/L Albumin 2.9 L (3.5-5.0) g/dL Urine Appearance (Clear) Urine Protein (Negative) Urine Glucose (UA) (Negative) Urine Ketones (Negative) Urine Blood (Negative) Ur Leukocyte Esterase (Negative) Urine RBC (0-5) /hpf Urine WBC (0-5) /hpf Urine WBC Clumps (None) /hpf Assessment and Plan (1) Cellulitis of left wrist Current Visit: Yes Status: Acute Code(s): L03.114 - CELLULITIS OF LEFT UPPER LIMB SNOMED Code(s): 70654200651707742 Plan: 1patient with a left wrist lateral border cellulitis from a previous IV site with the process started in the hospital will need to cover for resistant gram- positive such as MRSA. 2discontinue Rocephin 3if the area started to drain to obtain local culture for now we will obtain blood cultures which showed patient not bacteremic 4vancomycin pharmacy to dose target trough of 15 while watching kidney function and Vanco trough closely We will follow on clinical condition and cultures to further adjust medication if needed Thank you for this consultation we will follow the patient along with you Dictation was produced using [employer] dictation software. please excuse any grammatical, word or spelling errors. Time with Patient: Greater than 30
--- NOTE | 2023-12-10 22:24 | HP ---
HISTORY AND PHYSICAL Lesa Patterson came to hospital due to severe nausea, vomiting, dehydration, severe abdominal pain, nausea, vomiting, hyperglycemia, diffuse abdominal pain, chronic esophageal dysmobility, severe gastroparesis. She has tube feedings. She is dehydrated, lightheaded, dizzy, near syncope. HOME MEDICINES: 1. Xanax 0.25 b.i.d. 2. Lipitor 20 daily. 3. Cymbalta 30 daily. 4. Humalog 2 units a.c. t.i.d. 5. DuoNeb q.i.d. 6. Remeron 30 daily. 7. Folic acid 1 mg daily. 8. Felda 7.5 t.i.d. 9. Iron sulfate. 10.Scopolamine patch. ALLERGIES: Fentanyl. REVIEW OF SYSTEMS: 14-point review of systems, nausea, vomiting, dehydration, malnutrition, frequent nausea, painful shoulder, bilateral neuropathy, tubal ligation, orthopedic surgery, ESBL, urine VRE, possibly has UTI. Dr. Brunson has been consulted. FAMILY HISTORY: Father unknown. Mother unknown. PHYSICAL EXAMINATION: VITAL SIGNS: Temp 97.5, pulse is 125, respiratory rate 16-18, blood pressure 106/75. SKIN: Dry skin turgor. BMI is very low. GI: PEG tube soft. CARDIOVASCULAR: S1, S2. LUNGS: Scattered wheeze x4. NEUROLOGIC: Cranial nerves intact. PSYCH: Fair mood and affect. LABORATORY DATA: White count is 14, hemoglobin is 12.9, sodium 127, potassium 4.0, BUN 28, creatinine 0.65. Lipase 45. ASSESSMENT: Acute on chronic pancreatitis, hyperglycemia, nausea and vomiting. Consult GI. Consult Surgery. Positive acetone. Treat for possible DKA protocol. Rehydrate. Prognosis guarded. Wait for GI to see for pancreatitis. Please see further orders. MMODL / IJN: [id number] /
[2023-12-11 00:21] LABS: Glucose,Whole Blood 197 mg/dL (70-110)
[2023-12-11] MEDS: VANCOMYCIN 500 MG in SODIUM CHLORIDE 0.9% 250 ML IVPB SCH (00:23)
[2023-12-11 06:03] LABS: Glucose,Whole Blood 279 mg/dL (70-110)
[2023-12-11] MEDS: INSULIN DETEMIR (LEVEMIR) 100 UNIT/ML SYR SQ SCH (06:13)
[2023-12-11] MEDS: POTASSIUM BICARBONATE/CIT AC 20 MEQ TABLET.EFF PO SCH (09:59)
[2023-12-11 10:45] LABS: Basophils # (A) 0.1 k/uL (0-0.2); Basophils % (A) 1 %; Eosinophils # (A) 0.1 k/uL (0-0.7); Eosinophils % (A) 1 %; HCT 32.2 % (34.0-46.0); Hypochromasia Slight; Lymphocytes % (A) 8 %; MCH 27.7 pg (25.0-35.0); MCHC 30.5 g/dL (31.0-37.0); MCV 90.8 fL (80.0-100.0); Mean Platelet Volume 8.2; Monocytes # (A) 0.6 k/uL (0-1.0); Monocytes % (A) 4 %; Neutrophils # (A) 11.6 k/uL (1.3-7.7); Neutrophils % (A) 86 %; Platelet Count 439 k/uL (150-450); RBC 3.55 m/uL (3.80-5.40); RDW 14.5 % (11.5-15.5); WBC 13.4 k/uL (3.8-10.6)
[2023-12-11 10:51] LABS: HGB 9.8 gm/dL (11.4-16.0)
[2023-12-11 10:52] LABS: ALT 11 U/L (4-34); AST 22 U/L (14-36); African American GFR (CKD) >90 (>60 ml/min/1.73 sqM); Albumin 2.4 g/dL (3.5-5.0); Alkaline Phosphatase 114 U/L (38-126); Anion Gap 1 mmol/L; Blood Urea Nitrogen 18 mg/dL (7-17); Calcium 7.8 mg/dL (8.4-10.2); Carbon Dioxide 26 mmol/L (22-30); Chloride 103 mmol/L (98-107); Glucose 214 mg/dL (74-99); Lipase 55 U/L (23-300); Non-African American GFR(CKD) >90 (>60 ml/min/1.73 sqM); Potassium 3.8 mmol/L (3.5-5.1); Sodium 130 mmol/L (137-145); Total Bilirubin 0.2 mg/dL (0.2-1.3); Total Protein 5.4 g/dL (6.3-8.2)
--- NOTE | 2023-12-11 11:06 | XR ---
EXAMINATION TYPE: XR wrist complete 4 views LT DATE OF EXAM: 12/11/2023 COMPARISON: NONE HISTORY: 53-year-old female swelling FINDINGS: Mild degenerative spurring of the first CMC joint. Radiocarpal and distal radioulnar joint as well as the metacarpal compartment appear intact. There is circumferential soft tissue swelling noted at the wrist and hand. No erosive change or acute fracture seen. IMPRESSION: Generalized soft tissue swelling noted at the wrist and hand. No underlying acute osseous abnormality seen.
[2023-12-11 11:53] LABS: Glucose,Whole Blood 181 mg/dL (70-110)
--- NOTE | 2023-12-11 12:55 | P.GSCN ---
History of Present Illness Consult date: 12/11/23 History of present illness: CHIEF COMPLAINT: Abdominal pain with nausea, vomiting and diarrhea HISTORY OF PRESENT ILLNESS: This is a 53-year-old female who presented to the hospital with complaints of abdominal pain x 2 days with nausea vomiting and diarrhea. Patient reports her pain is similar to her chronic pain. Patient is currently tolerating her tube feeds. She has no appetite. Lipase was minimally elevated. She had elevated blood sugars and evidence of possible DKA. Past surgical history does include a laparoscopic cholecystectomy on October 24, 2023. Patient has been tachycardic. White count elevated 11.8 she is on antibiotics for left wrist cellulitis. PAST MEDICAL HISTORY: Diabetes Mellitus, gastroparesis, hypertension, Musculoskeletal Disorder PAST SURGICAL HISTORY: See below MEDICATIONS: See below ALLERGIES: See below SOCIAL HISTORY: No illicit drug use. REVIEW OF SYSTEMS: CONSTITUTIONAL: Denies fever or chills. HEENT: Denies blurred vision, vision changes, or eye pain. Denies hemoptysis CARDIOVASCULAR: Denies chest pain or pressure. RESPIRATORY: No shortness of breath. GASTROINTESTINAL: See HPI for pertinent findings HEMATOLOGIC: Denies bleeding disorders. GENITOURINARY: Denies any blood in urine or increased urinary frequency. SKIN: Denies pruitis. Denies rash. PHYSICAL EXAM: VITAL SIGNS: Reviewed GENERAL: Well-developed in no acute distress. HEENT: No sclera icterus. Extraocular movements grossly intact. Moist buccal mucosa. Head is atraumatic, normocephalic. No nasal drainage. ABDOMEN: Soft. Nondistended. Epigastric tenderness NEUROLOGIC: Alert and oriented. Cranial nerves II through XII grossly intact. LABORATORY DATA: WBC 11.8 up to 13.4 Hgb 9.8 platelets 439 Sodium 130 potassium 3.8 creatinine 0.50 Total bilirubin 0.2 LFTs normal alk phos 137 down to 113 Lipase 45 down to 55 IMAGING: ASSESSMENT: 1. Abdominal pain with nausea, vomiting likely due to patient's diabetic gastroparesis 2. Chronic abdominal pain 3. Mildly elevated lipase has normalized 4. Recent laparoscopic cholecystectomy on 10/24/2023 5. Uncontrolled diabetes mellitus, DKA PLAN: -Continue supportive care -Continue tube feeds -Continue consistent carbohydrate diet -No surgical intervention planned Physician Group Account Director note has been reviewed by physician. Signing provider agrees with the documented findings, assessment, and plan of care. 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 MDRO Source:: Urine VRE and ESBL, MRSA-ABD Past Surgical History: Cholecystectomy, Orthopedic Surgery, Tubal Ligation Additional Past Surgical History / Comment(s): rt shoulder, J tube placement Past Anesthesia/Blood Transfusion Reactions: No Reported Reaction Additional Past Anesthesia/Blood Transfusion Reaction / Comm: UNK FAMILY HX Past Psychological History: Anxiety Smoking Status: Current every day smoker Past Alcohol Use History: None Reported Additional Past Alcohol Use History / Comment(s): STARTED SMOKING 1987, smokes about 6 cigs/day Past Drug Use History: None Reported Additional Drug Use History / Comment(s): Patient denies using marijuana. - Past Family History Father History Unknown: Yes Additional Family Medical History / Comment(s): unknown-adopted Mother History Unknown: Yes Additional Family Medical History / Comment(s): unknown- adopted Medications and Allergies Home Medications Medication Instructions Recorded Confirmed Type ALPRAZolam [Xanax] 0.25 mg PO BID PRN 05/12/23 12/09/23 History Atorvastatin [Lipitor] 20 mg PO DAILY 05/12/23 12/09/23 History DULoxetine HCL [Cymbalta] 30 mg PO DAILY 05/12/23 12/09/23 History Insulin Lispro [humaLOG Kwikpen] 2 unit SQ AC-TID 05/12/23 12/09/23 History Ipratropium-Albuterol Nebulize 3 ml INHALATION RT-BID 05/12/23 12/09/23 History [Duoneb 0.5 mg-3 mg/3 ml Soln] Mirtazapine [Remeron] 30 mg PO HS 05/12/23 12/09/23 History Metoclopramide [Reglan] 10 mg PO ACHS 30 Days #120 tab 05/15/23 12/09/23 Rx Pantoprazole [Protonix] 40 mg PO AC-BID 30 Days #60 tab 05/21/23 12/09/23 Rx Folic Acid 1 mg PO DAILY 06/15/23 12/09/23 History Ondansetron [Zofran] 4 mg PO DAILY 30 Days #30 tab 06/26/23 12/09/23 Rx HYDROcodone/APAP 7.5-325MG [Romeo 1 tab PO TID PRN 08/25/23 12/09/23 History 7.5-325] Acetaminophen Tab [Tylenol] 650 mg PO Q6HR PRN tab 10/16/23 12/09/23 Rx Loperamide [Imodium] 2 mg PO QID PRN cap 10/16/23 12/09/23 Rx Prochlorperazine Maleate 10 mg PO AC-BID 30 Days #60 tab 10/30/23 12/09/23 Rx Ferrous Sulfate [Feosol] 325 mg PO DAILY 12/09/23 12/09/23 History Insulin Glargine [Lantus Vial] 4 unit SQ DAILY 12/09/23 12/09/23 History Potassium Bicarb-Citric Acid 20 meq PO DAILY 12/09/23 12/09/23 History (Effer-K) 20meq Tab Scopolamine [Scopolamine 1 MG/72 1 patch TRANSDERM Q72H 12/09/23 12/09/23 History HR patch] Allergies Allergy/AdvReac Type Severity Reaction Status Date / Time fentanyl Allergy Unknown Verified 12/09/23 11:53 Surgical - Exam Vital Signs Temp Pulse Resp BP Pulse Ox 97.5 F L 125 H 16 106/75 98 12/09/23 09:54 12/09/23 09:54 12/09/23 09:54 12/09/23 09:54 12/09/23 09:54 Results - Labs 12/11/23 09:18 12/11/23 09:18 Abnormal Lab Results - Last 24 Hours (Table) 12/10/23 12/11/23 12/11/23 Range/Units 11:54 00:13 05:55 WBC (3.8-10.6) k/uL RBC (3.80-5.40) m/uL Hgb (11.4-16.0) gm/dL Hct (34.0-46.0) % MCHC (31.0-37.0) g/dL Neutrophils # (1.3-7.7) k/uL Sodium (137-145) mmol/L BUN (7-17) mg/dL Creatinine (0.52-1.04) mg/dL Glucose (74-99) mg/dL POC Glucose (mg/dL) 128 H 197 H 279 H (70-110) mg/dL Calcium (8.4-10.2) mg/dL Total Protein (6.3-8.2) g/dL Albumin (3.5-5.0) g/dL 12/11/23 12/11/23 Range/Units 09:18 09:18 WBC 13.4 H (3.8-10.6) k/uL RBC 3.55 L (3.80-5.40) m/uL Hgb 9.8 L D (11.4-16.0) gm/dL Hct 32.2 L (34.0-46.0) % MCHC 30.5 L (31.0-37.0) g/dL Neutrophils # 11.6 H (1.3-7.7) k/uL Sodium 130 L (137-145) mmol/L BUN 18 H (7-17) mg/dL Creatinine 0.50 L (0.52-1.04) mg/dL Glucose 214 H (74-99) mg/dL POC Glucose (mg/dL) (70-110) mg/dL Calcium 7.8 L (8.4-10.2) mg/dL Total Protein 5.4 L (6.3-8.2) g/dL Albumin 2.4 L (3.5-5.0) g/dL Diabetes panel 12/11/23 Range/Units 09:18 Sodium 130 L (137-145) mmol/L Potassium 3.8 (3.5-5.1) mmol/L Chloride 103 (98-107) mmol/L Carbon Dioxide 26 (22-30) mmol/L BUN 18 H (7-17) mg/dL Creatinine 0.50 L (0.52-1.04) mg/dL Glucose 214 H (74-99) mg/dL Calcium 7.8 L (8.4-10.2) mg/dL AST 22 (14-36) U/L ALT 11 (4-34) U/L Alkaline Phosphatase 114 (38-126) U/L Total Protein 5.4 L (6.3-8.2) g/dL Albumin 2.4 L (3.5-5.0) g/dL Calcium panel 12/11/23 Range/Units 09:18 Calcium 7.8 L (8.4-10.2) mg/dL Albumin 2.4 L (3.5-5.0) g/dL Pituitary panel 12/11/23 Range/Units 09:18 Sodium 130 L (137-145) mmol/L Potassium 3.8 (3.5-5.1) mmol/L Chloride 103 (98-107) mmol/L Carbon Dioxide 26 (22-30) mmol/L BUN 18 H (7-17) mg/dL Creatinine 0.50 L (0.52-1.04) mg/dL Glucose 214 H (74-99) mg/dL Calcium 7.8 L (8.4-10.2) mg/dL Adrenal panel 12/11/23 Range/Units 09:18 Sodium 130 L (137-145) mmol/L Potassium 3.8 (3.5-5.1) mmol/L Chloride 103 (98-107) mmol/L Carbon Dioxide 26 (22-30) mmol/L BUN 18 H (7-17) mg/dL Creatinine 0.50 L (0.52-1.04) mg/dL Glucose 214 H (74-99) mg/dL Calcium 7.8 L (8.4-10.2) mg/dL Total Bilirubin 0.2 (0.2-1.3) mg/dL AST 22 (14-36) U/L ALT 11 (4-34) U/L Alkaline Phosphatase 114 (38-126) U/L Total Protein 5.4 L (6.3-8.2) g/dL Albumin 2.4 L (3.5-5.0) g/dL
[2023-12-11 16:22] LABS: Glucose,Whole Blood 103 mg/dL (70-110)
--- NOTE | 2023-12-11 17:50 | P.PN ---
Subjective Progress Note Date: 12/11/23 Principal diagnosis: Reason for follow-up is left wrist cellulitis Patient is a 53-year-old female with a past medical history of Diabetes mellitus hypertension gastroparesis multiple admission to the hospital apparently was recently admitted at [facility] with the patient did have an IV to the left wrist area that may have gotten infected and subsequently developing increasing pain swelling redness to the left wrist area prompting this consultation. On today's evaluation that is 12/11/2023, Patient is afebrile this morning and denies any chills, patient mention breathing comfortably and is currently on room air, patient denies any chest pain occasional cough patient did have some nausea and abdominal pain which is chronic for her however denies any worsening pain at this area mention there was some drainage earlier. The patient white count is 13.4, creatinine 0.50 cultures pending Objective - Vital Signs Vital signs: Vital Signs Temp 98.2 F 12/11/23 07:55 Pulse 112 H 12/11/23 14:00 Resp 16 12/11/23 14:00 BP 122/73 12/11/23 12:35 Pulse Ox 96 12/11/23 12:35 FiO2 Intake & Output 12/10/23 12/11/23 12/11/23 18:59 06:59 18:59 Intake Total 0 120 Output Total 1150 Balance 0 -1150 120 Weight 36.287 kg Intake: Oral 0 120 Output: Urine 1150 Other: Voiding Method Diaper Diaper Diaper Incontinent Incontinent Incontinent # Voids 0 # Bowel Movements 0 - Exam GENERAL DESCRIPTION: Middle-aged female lying in bed in no distress RESPIRATORY SYSTEM: Unlabored breathing , decreased breath sounds at bases HEART: S1 S2 regular rate and rhythm , ABDOMEN: Soft , no tenderness EXTREMITIES: Left wrist erythema slightly decreased no drainage - Labs CBC & Chem 7: 12/11/23 09:18 12/11/23 09:18 Labs: Abnormal Lab Results - Last 24 Hours (Table) 12/11/23 12/11/23 12/11/23 Range/Units 00:13 05:55 09:18 WBC (3.8-10.6) k/uL RBC (3.80-5.40) m/uL Hgb (11.4-16.0) gm/dL Hct (34.0-46.0) % MCHC (31.0-37.0) g/dL Neutrophils # (1.3-7.7) k/uL Sodium 130 L (137-145) mmol/L BUN 18 H (7-17) mg/dL Creatinine 0.50 L (0.52-1.04) mg/dL Glucose 214 H (74-99) mg/dL POC Glucose (mg/dL) 197 H 279 H (70-110) mg/dL Calcium 7.8 L (8.4-10.2) mg/dL Total Protein 5.4 L (6.3-8.2) g/dL Albumin 2.4 L (3.5-5.0) g/dL 12/11/23 12/11/23 Range/Units 09:18 11:51 WBC 13.4 H (3.8-10.6) k/uL RBC 3.55 L (3.80-5.40) m/uL Hgb 9.8 L D (11.4-16.0) gm/dL Hct 32.2 L (34.0-46.0) % MCHC 30.5 L (31.0-37.0) g/dL Neutrophils # 11.6 H (1.3-7.7) k/uL Sodium (137-145) mmol/L BUN (7-17) mg/dL Creatinine (0.52-1.04) mg/dL Glucose (74-99) mg/dL POC Glucose (mg/dL) 181 H (70-110) mg/dL Calcium (8.4-10.2) mg/dL Total Protein (6.3-8.2) g/dL Albumin (3.5-5.0) g/dL Assessment and Plan (1) Cellulitis of left wrist Current Visit: Yes Status: Acute Code(s): L03.114 - CELLULITIS OF LEFT UPPER LIMB SNOMED Code(s): 77107392601962785 Plan: 1patient with a left wrist lateral border cellulitis from a previous IV site with the process started in the hospital will need to cover for resistant gram- positive such as MRSA. 2if the area started to drain to obtain local culture blood culture has been obtained which are currently pending 3vancomycin pharmacy to dose target trough of 15 while watching kidney function and Vanco trough closely, white count slightly up today negative will monitor closely Dictation was produced using [employer] dictation software. please excuse any grammatical, word or spelling errors. Time with Patient: Less than 30
[2023-12-11 23:59] LABS: Glucose,Whole Blood 274 mg/dL (70-110)
[2023-12-12 06:04] LABS: Glucose,Whole Blood 383 mg/dL (70-110)
[2023-12-12 11:45] LABS: Glucose,Whole Blood 237 mg/dL (70-110)
[2023-12-12 13:53] LABS: African American GFR (CKD) >90 (>60 ml/min/1.73 sqM); Non-African American GFR(CKD) >90 (>60 ml/min/1.73 sqM)
[2023-12-12] MEDS: VANCOMYCIN TROUGH DUE 1 EACH MISC MISCELLANE ONE (13:55)
[2023-12-12 16:28] LABS: Glucose,Whole Blood 169 mg/dL (70-110)
--- NOTE | 2023-12-12 16:52 | P.PN ---
Subjective Progress Note Date: 12/12/23 Principal diagnosis: Reason for follow-up is left wrist cellulitis Patient is a 53-year-old female with a past medical history of Diabetes mellitus hypertension gastroparesis multiple admission to the hospital apparently was recently admitted at [facility] with the patient did have an IV to the left wrist area that may have gotten infected and subsequently developing increasing pain swelling redness to the left wrist area prompting this consultation. On today's evaluation that is 12/12/2023,the patient denies any fever or any chills, patient is breathing comfortably on room air, the patient denies chest pain shortness of breath and no significant cough, patient complains of abdominal pain that is chronic for her but no nausea vomiting complaining of moshe n discomfort to the left wrist area mention to have some drainage last night. Patient did have a creatinine 0.45 Vanco trough was 12.9 blood cultures pending Objective - Vital Signs Vital signs: Vital Signs Temp 98.2 F 12/12/23 12:02 Pulse 122 H 12/12/23 14:00 Resp 16 12/12/23 14:00 BP 134/78 12/12/23 12:02 Pulse Ox 95 12/12/23 12:02 FiO2 Intake & Output 12/11/23 12/12/23 12/12/23 18:59 06:59 18:59 Intake Total 420 Balance 420 Weight 36.287 kg Intake: Oral 420 Other: Voiding Method Diaper Diaper Diaper Incontinent Incontinent Incontinent # Voids 0 - Exam GENERAL DESCRIPTION: Middle-aged female lying in bed in no distress RESPIRATORY SYSTEM: Unlabored breathing , decreased breath sounds at bases HEART: S1 S2 regular rate and rhythm , ABDOMEN: Soft , no tenderness EXTREMITIES: Left wrist erythema slightly decreased no drainage - Labs CBC & Chem 7: 12/11/23 09:18 12/12/23 12:56 Labs: Abnormal Lab Results - Last 24 Hours (Table) 12/11/23 12/11/23 12/12/23 Range/Units 09:18 23:57 06:01 Creatinine (0.52-1.04) mg/dL POC Glucose (mg/dL) 274 H 383 H (70-110) mg/dL Hemoglobin A1c 15.9 H (<=6.0) % 12/12/23 12/12/23 Range/Units 11:44 12:56 Creatinine 0.45 L (0.52-1.04) mg/dL POC Glucose (mg/dL) 237 H (70-110) mg/dL Hemoglobin A1c (<=6.0) % Microbiology - Last 24 Hours (Table) 12/11/23 05:22 Urine Culture - Preliminary Urine,Voided 12/10/23 14:41 Blood Culture - Preliminary Blood Assessment and Plan (1) Cellulitis of left wrist Current Visit: Yes Status: Acute Code(s): L03.114 - CELLULITIS OF LEFT UPPER LIMB SNOMED Code(s): 32508282089344581 Plan: 1patient with a left wrist lateral border cellulitis from a previous IV site with the process started in the hospital will need to cover for resistant gram- positive such as MRSA. 2if the area started to drain to obtain local culture blood culture has been obtained which are currently pending 3patient did not show significant improvement as far as cellulitis to the left wrist area we will add cefepime for gram-negative coverage continue vancomycin nursing staff advised if the area started to drain to obtain culture Dictation was produced using [employer] dictation software. please excuse any grammatical, word or spelling errors. Time with Patient: Less than 30
[2023-12-12] MEDS: CEFEPIME 2 GM in SODIUM CHLORIDE 0.9% 100 ML IVPB SCH (17:11)
[2023-12-13 00:39] LABS: Glucose,Whole Blood 143 mg/dL (70-110)
--- NOTE | 2023-12-13 02:16 | PN ---
PROGRESS NOTE DATE OF SERVICE: 12/12/2023 CHIEF COMPLAINT: Abdominal pain with nausea and vomiting. HISTORY OF PRESENT ILLNESS: The patient continues to complain of abdominal pain with nausea. No vomiting. She is having loose stools. Appetite is poor. She does have tube feeds going. She is afebrile. Blood sugar 237. PHYSICAL EXAMINATION: ABDOMEN: Soft. Diffuse tenderness. Nondistended. ASSESSMENT: 1. Abdominal pain with nausea, vomiting, likely due to the patient's diabetic gastroparesis. 2. Chronic abdominal pain. 3. Mildly elevated lipase, normalized. 4. Recent lap elliott on 10/24/2023. 5. Uncontrolled diabetes mellitus, diabetic ketoacidosis. PLAN: Continue supportive care. Continue blood sugar control. No surgical intervention planned. MMODL / IJN: [id number] /
--- NOTE | 2023-12-13 02:16 | PN ---
PROGRESS NOTE SUBJECTIVE: This is a 53-year-old white [place] female, still severe gastroparesis, drug- resistant UTI. Waiting for final cultures. Dr. Brunson has her on strong IV antibiotics. She still has nausea and vomiting. Does not feel good. She is going to have to have a PIC midline as her IV access is poor. Sugars are better. OBJECTIVE: CARDIOVASCULAR: S1, S2. LUNGS: Transmitted upper sounds. Remains on DuoNeb for COPD. GI: Soft. INTEGUMENT: She is thin, cachectic. VITAL SIGNS: Pulse rate is 100 to 122, temp 98.3, blood pressure 102/68, 97 on room air, respiratory rate 16 to 18. ASSESSMENT: Nonketotic hyperglycemic DKA. Sugars are now in the 100s to 200s. Vancomycin trough is being ordered. Continue with insulin updrafts, IV antibiotics. Wait for final urine cultures. Tube feedings have been reordered. Blood culture has been ordered. Urine culture is pending. The culture still in progress. Prognosis guarded. Continue current treatment. Please see further orders. Advance tube feedings. Continue IV antibiotics, breathing treatments, and nausea medicines. Prognosis guarded. MMODL / IJN: [id number] /
[2023-12-13 06:10] LABS: Glucose,Whole Blood 321 mg/dL (70-110)
[2023-12-13 08:46] LABS: African American GFR (CKD) >90 (>60 ml/min/1.73 sqM); Non-African American GFR(CKD) >90 (>60 ml/min/1.73 sqM)
[2023-12-13 12:05] LABS: Glucose,Whole Blood 244 mg/dL (70-110)
--- NOTE | 2023-12-13 14:44 | P.PN ---
Subjective Progress Note Date: 12/13/23 patient [place] stable. She has no new medical complaints. She states her nausea is improved. On exam vital signs are stable. Abdomen soft. Severe gastroparesis due to diabetic neuropathy. Patient to receive supportive care. Objective - Vital Signs Vital signs: Vital Signs Temp 98.5 F 12/13/23 12:07 Pulse 109 H 12/13/23 12:07 Resp 18 12/13/23 12:07 BP 114/76 12/13/23 12:07 Pulse Ox 95 12/13/23 12:07 FiO2 Intake & Output 12/12/23 12/13/23 12/13/23 18:59 06:59 18:59 Intake Total 120 110 Balance 120 110 Weight 36.287 kg Intake: Oral 120 110 Other: Voiding Method Diaper Diaper Diaper Incontinent Incontinent Incontinent - Labs CBC & Chem 7: 12/11/23 09:18 12/13/23 07:53 Labs: Abnormal Lab Results - Last 24 Hours (Table) 12/12/23 12/13/23 12/13/23 Range/Units 16:27 00:37 06:07 Creatinine (0.52-1.04) mg/dL POC Glucose (mg/dL) 169 H 143 H 321 H (70-110) mg/dL 12/13/23 12/13/23 Range/Units 07:53 12:03 Creatinine 0.46 L (0.52-1.04) mg/dL POC Glucose (mg/dL) 244 H (70-110) mg/dL Microbiology - Last 24 Hours (Table) 12/11/23 05:22 Urine Culture - Final Urine,Voided 12/10/23 14:41 Blood Culture - Preliminary Blood
--- NOTE | 2023-12-13 15:59 | P.PN ---
Subjective Progress Note Date: 12/13/23 Principal diagnosis: Reason for follow-up is left wrist cellulitis Patient is a 53-year-old female with a past medical history of Diabetes mellitus hypertension gastroparesis multiple admission to the hospital apparently was recently admitted at [facility] with the patient did have an IV to the left wrist area that may have gotten infected and subsequently developing increasing pain swelling redness to the left wrist area prompting this consultation. On today's evaluation that is 12/13/2023,the patient remains to be afebrile, patient is on room air not requiring supplemental oxygen and denies any shortness of breath no chest pain or cough.Patient has been complaining of feeling nauseated unable to eat however mention left wrist area is swelling and pain has decreased intensity. Patient did have a creatinine 0.46 blood culture negative urine is negative Objective - Vital Signs Vital signs: Vital Signs Temp 98.5 F 12/13/23 12:07 Pulse 109 H 12/13/23 12:07 Resp 18 12/13/23 12:07 BP 114/76 12/13/23 12:07 Pulse Ox 95 12/13/23 12:07 FiO2 Intake & Output 12/12/23 12/13/23 12/13/23 18:59 06:59 18:59 Intake Total 120 110 Balance 120 110 Weight 36.287 kg Intake: Oral 120 110 Other: Voiding Method Diaper Diaper Diaper Incontinent Incontinent Incontinent - Exam GENERAL DESCRIPTION: Middle-aged female lying in bed in no distress RESPIRATORY SYSTEM: Unlabored breathing , decreased breath sounds at bases HEART: S1 S2 regular rate and rhythm , ABDOMEN: Soft , no tenderness EXTREMITIES: Left wrist erythema slightly decreased no drainage - Labs CBC & Chem 7: 12/11/23 09:18 12/13/23 07:53 Labs: Abnormal Lab Results - Last 24 Hours (Table) 12/12/23 12/12/23 12/13/23 Range/Units 12:56 16:27 00:37 Creatinine 0.45 L (0.52-1.04) mg/dL POC Glucose (mg/dL) 169 H 143 H (70-110) mg/dL 12/13/23 12/13/23 12/13/23 Range/Units 06:07 07:53 12:03 Creatinine 0.46 L (0.52-1.04) mg/dL POC Glucose (mg/dL) 321 H 244 H (70-110) mg/dL Microbiology - Last 24 Hours (Table) 12/11/23 05:22 Urine Culture - Final Urine,Voided 12/10/23 14:41 Blood Culture - Preliminary Blood Assessment and Plan (1) Cellulitis of left wrist Current Visit: Yes Status: Acute Code(s): L03.114 - CELLULITIS OF LEFT UPPER LIMB SNOMED Code(s): 35333419459646635 Plan: 1patient with a left wrist lateral border cellulitis from a previous IV site with the process started in the hospital will need to cover for resistant gram- positive such as MRSA. 2if the area started to drain to obtain local culture blood culture has been obtained which are currently pending 3patient did have some improvement to the left wrist cellulitis with addition of cefepime to continue with the vancomycin we will repeat a CBC with a.m. lab Dictation was produced using [employer] dictation software. please excuse any grammatical, word or spelling errors. Time with Patient: Less than 30
[2023-12-13 18:02] LABS: Glucose,Whole Blood 177 mg/dL (70-110)
[2023-12-13 19:59] LABS: Glucose,Whole Blood 187 mg/dL (70-110)
[2023-12-14 06:08] LABS: Glucose,Whole Blood 346 mg/dL (70-110)
[2023-12-14 06:22] LABS: Basophils % (A) 0 %; Eosinophils # (A) 0.3 k/uL (0-0.7); Eosinophils % (A) 3 %; HCT 32.4 % (34.0-46.0); HGB 9.7 gm/dL (11.4-16.0); Hypochromasia Marked; Lymphocytes # (A) 0.9 k/uL (1.0-4.8); Lymphocytes % (A) 11 %; MCV 93.2 fL (80.0-100.0); Mean Platelet Volume 8.4; Monocytes # (A) 0.6 k/uL (0-1.0); Monocytes % (A) 6 %; Neutrophils % (A) 79 %; Platelet Count 388 k/uL (150-450); RBC 3.47 m/uL (3.80-5.40); RDW 14.5 % (11.5-15.5); WBC 8.9 k/uL (3.8-10.6)
[2023-12-14 06:37] LABS: ALT 17 U/L (4-34); AST 55 U/L (14-36); African American GFR (CKD) >90 (>60 ml/min/1.73 sqM); Albumin 2.4 g/dL (3.5-5.0); Alkaline Phosphatase 153 U/L (38-126); Anion Gap 3 mmol/L; Blood Urea Nitrogen 25 mg/dL (7-17); C Reactive Protein 5.3 mg/dL (<1.0); Calcium 7.9 mg/dL (8.4-10.2); Carbon Dioxide 22 mmol/L (22-30); Chloride 108 mmol/L (98-107); Glucose 320 mg/dL (74-99); Non-African American GFR(CKD) >90 (>60 ml/min/1.73 sqM); Potassium 5.5 mmol/L (3.5-5.1); Sodium 133 mmol/L (137-145); Total Bilirubin 0.3 mg/dL (0.2-1.3); Total Protein 5.4 g/dL (6.3-8.2)
[2023-12-14 11:38] LABS: Glucose,Whole Blood 209 mg/dL (70-110)
[2023-12-14] MEDS: VANCOMYCIN TROUGH DUE 1 EACH MISC MISCELLANE ONE (15:30)
--- NOTE | 2023-12-14 15:36 | P.PN ---
Subjective Progress Note Date: 12/14/23 Principal diagnosis: Reason for follow-up is left wrist cellulitis Patient is a 53-year-old female with a past medical history of Diabetes mellitus hypertension gastroparesis multiple admission to the hospital apparently was recently admitted at [facility] with the patient did have an IV to the left wrist area that may have gotten infected and subsequently developing increasing pain swelling redness to the left wrist area prompting this consultation. On today's evaluation that is 12/14/2023, the patient continues to be afebrile, the patient is on room air and breathing comfortably, the Pt denies having any chest pain or cough, the patient complaining of some abdominal pain nausea but no vomiting no diarrhea reported to complaining of pain to the left wrist area no drainage. Patient white count is 8.9, creatinine 0.38 blood culture has been negative Objective - Vital Signs Vital signs: Vital Signs Temp 98.2 F 12/14/23 11:28 Pulse 113 H 12/14/23 11:28 Resp 16 12/14/23 11:28 BP 134/84 12/14/23 11:28 Pulse Ox 96 12/14/23 11:28 FiO2 Intake & Output 12/13/23 12/14/23 12/14/23 18:59 06:59 18:59 Intake Total 220 318 Balance 220 318 Weight 39.5 kg Intake: IV 20 Invasive Line 4 20 Oral 220 298 Other: Voiding Method Diaper Diaper Diaper Incontinent Incontinent Incontinent # Voids 1 # Bowel Movements 1 - Exam GENERAL DESCRIPTION: Middle-aged female lying in bed in no distress RESPIRATORY SYSTEM: Unlabored breathing , decreased breath sounds at bases HEART: S1 S2 regular rate and rhythm , ABDOMEN: Soft , no tenderness EXTREMITIES: Left wrist erythema about the same no drainage - Labs CBC & Chem 7: 12/14/23 05:58 12/14/23 05:58 Labs: Abnormal Lab Results - Last 24 Hours (Table) 12/13/23 12/13/23 12/14/23 Range/Units 18:00 19:58 05:58 RBC 3.47 L (3.80-5.40) m/uL Hgb 9.7 L (11.4-16.0) gm/dL Hct 32.4 L (34.0-46.0) % MCHC 30.0 L (31.0-37.0) g/dL Lymphocytes # 0.9 L (1.0-4.8) k/uL Sodium (137-145) mmol/L Potassium (3.5-5.1) mmol/L Chloride (98-107) mmol/L BUN (7-17) mg/dL Creatinine (0.52-1.04) mg/dL Glucose (74-99) mg/dL POC Glucose (mg/dL) 177 H 187 H (70-110) mg/dL Calcium (8.4-10.2) mg/dL AST (14-36) U/L Alkaline Phosphatase (38-126) U/L C-Reactive Protein (<1.0) mg/dL Total Protein (6.3-8.2) g/dL Albumin (3.5-5.0) g/dL 12/14/23 12/14/23 12/14/23 Range/Units 05:58 06:07 11:36 RBC (3.80-5.40) m/uL Hgb (11.4-16.0) gm/dL Hct (34.0-46.0) % MCHC (31.0-37.0) g/dL Lymphocytes # (1.0-4.8) k/uL Sodium 133 L (137-145) mmol/L Potassium 5.5 H (3.5-5.1) mmol/L Chloride 108 H (98-107) mmol/L BUN 25 H (7-17) mg/dL Creatinine 0.38 L (0.52-1.04) mg/dL Glucose 320 H (74-99) mg/dL POC Glucose (mg/dL) 346 H 209 H (70-110) mg/dL Calcium 7.9 L (8.4-10.2) mg/dL AST 55 H (14-36) U/L Alkaline Phosphatase 153 H (38-126) U/L C-Reactive Protein 5.3 H (<1.0) mg/dL Total Protein 5.4 L (6.3-8.2) g/dL Albumin 2.4 L (3.5-5.0) g/dL Microbiology - Last 24 Hours (Table) 12/10/23 14:41 Blood Culture - Preliminary Blood 12/11/23 05:22 Urine Culture - Final Urine,Voided Assessment and Plan (1) Cellulitis of left wrist Current Visit: Yes Status: Acute Code(s): L03.114 - CELLULITIS OF LEFT UPPER LIMB SNOMED Code(s): 35763705374757204 Plan: 1patient with a left wrist lateral border cellulitis from a previous IV site with the process started in the hospital will need to cover for resistant gram- positive such as MRSA. 2if the area started to drain to obtain local culture blood culture has been obtained which are currently pending 3patient has not shown improvement as expected with the current broad-spectrum biotic we will check a CT of the left wrist area continue with the cefepime and vancomycin Dictation was produced using [employer] dictation software. please excuse any grammatical, word or spelling errors. Time with Patient: Less than 30
[2023-12-14 16:12] LABS: African American GFR (CKD) >90 (>60 ml/min/1.73 sqM); Non-African American GFR(CKD) >90 (>60 ml/min/1.73 sqM)
[2023-12-14 16:50] LABS: Glucose,Whole Blood 95 mg/dL (70-110)
[2023-12-14 19:03] LABS: Glucose,Whole Blood 59 mg/dL (70-110)
--- NOTE | 2023-12-14 19:04 | CT ---
EXAMINATION TYPE: CT wrist LT w con DATE OF EXAM: 12/14/2023 COMPARISON: Radiograph 12/11/2023 HISTORY: 53-year-old female Left wrist redness and swelling x 2 weeks. TECHNIQUE: Contiguous axial scanning of the left wrist performed with IV Contrast, patient injected w ith 80 mL of Isovue 300. Coronal/sagittal reconstructions performed. CT DLP: 143.8 mGycm Automated exposure control for dose reduction was used. FINDINGS: The radiocarpal and distal radial ulnar joint as well as the metacarpal compartment appear intact. No acute fracture, subluxation, or dislocation seen. There is diffuse soft tissue swelling noted. Underlying joint effusion suggested along the dorsal aspect of the fourth CMC joint measuring up to 1 .8 cm wide and 1.0 cm thick. Possible subtle marginal erosion at the dorsal base of the metacarpal, s agittal series 2013 image 151. Additional joint effusion along the dorsal aspect of the scapholunate joint measuring 2.0 cm wide and 7 mm thick. No obvious tenosynovitis identified. IMPRESSION: 1. MARKED DIFFUSE SOFT TISSUE SWELLING. NO DISCRETE FRACTURE SEEN. NO OBVIOUS TENOSYNOVITIS. 2. HOWEVER, THERE IS SUGGESTION OF SIGNIFICANT JOINT CAPSULE DISTENTION/EFFUSION ALONG THE DORSAL ASP ECT OF THE FOURTH CMC JOINT WITH POSSIBLE SUBTLE MARGINAL EROSION. ALSO JOINT EFFUSION ALONG THE DORS AL ASPECT OF THE SCAPHOLUNATE JOINT. CORRELATE TO EXCLUDE ANY UNDERLYING INFECTION OR INFLAMMATORY AR THROPATHY.
[2023-12-14 19:37] LABS: Glucose,Whole Blood 134 mg/dL (70-110)
--- NOTE | 2023-12-14 21:13 | P.PN ---
Subjective Patient seen and evaluated at bedside. Patient admits to nausea, denies vomiting, fevers, chills, shortness of breath or chest pain. gen: nad cv:rrr pul: non labored breathing abd: soft, non distended, min tenderness to palpation, peg tube loose, tightened bolster Objective - Vital Signs Vital signs: Vital Signs Temp 97.7 F 12/14/23 19:34 Pulse 110 H 12/14/23 21:02 Resp 16 12/14/23 19:34 BP 164/97 12/14/23 19:34 Pulse Ox 96 12/14/23 19:34 FiO2 Intake & Output 12/14/23 12/14/23 12/15/23 06:59 18:59 06:59 Intake Total 318 246 Balance 318 246 Weight 39.5 kg Intake: IV 20 10 Invasive Line 4 20 10 Oral 298 236 Other: Voiding Method Diaper Diaper Diaper Incontinent Incontinent Incontinent # Voids 1 # Bowel Movements 1 - Labs CBC & Chem 7: 12/14/23 05:58 12/14/23 15:04 Labs: Abnormal Lab Results - Last 24 Hours (Table) 12/14/23 12/14/23 12/14/23 Range/Units 05:58 05:58 06:07 RBC 3.47 L (3.80-5.40) m/uL Hgb 9.7 L (11.4-16.0) gm/dL Hct 32.4 L (34.0-46.0) % MCHC 30.0 L (31.0-37.0) g/dL Lymphocytes # 0.9 L (1.0-4.8) k/uL Sodium 133 L (137-145) mmol/L Potassium 5.5 H (3.5-5.1) mmol/L Chloride 108 H (98-107) mmol/L BUN 25 H (7-17) mg/dL Creatinine 0.38 L (0.52-1.04) mg/dL Glucose 320 H (74-99) mg/dL POC Glucose (mg/dL) 346 H (70-110) mg/dL Calcium 7.9 L (8.4-10.2) mg/dL AST 55 H (14-36) U/L Alkaline Phosphatase 153 H (38-126) U/L C-Reactive Protein 5.3 H (<1.0) mg/dL Total Protein 5.4 L (6.3-8.2) g/dL Albumin 2.4 L (3.5-5.0) g/dL 12/14/23 12/14/23 12/14/23 Range/Units 11:36 15:04 19:02 RBC (3.80-5.40) m/uL Hgb (11.4-16.0) gm/dL Hct (34.0-46.0) % MCHC (31.0-37.0) g/dL Lymphocytes # (1.0-4.8) k/uL Sodium (137-145) mmol/L Potassium (3.5-5.1) mmol/L Chloride (98-107) mmol/L BUN (7-17) mg/dL Creatinine 0.37 L (0.52-1.04) mg/dL Glucose (74-99) mg/dL POC Glucose (mg/dL) 209 H 59 L (70-110) mg/dL Calcium (8.4-10.2) mg/dL AST (14-36) U/L Alkaline Phosphatase (38-126) U/L C-Reactive Protein (<1.0) mg/dL Total Protein (6.3-8.2) g/dL Albumin (3.5-5.0) g/dL 12/14/23 Range/Units 19:36 RBC (3.80-5.40) m/uL Hgb (11.4-16.0) gm/dL Hct (34.0-46.0) % MCHC (31.0-37.0) g/dL Lymphocytes # (1.0-4.8) k/uL Sodium (137-145) mmol/L Potassium (3.5-5.1) mmol/L Chloride (98-107) mmol/L BUN (7-17) mg/dL Creatinine (0.52-1.04) mg/dL Glucose (74-99) mg/dL POC Glucose (mg/dL) 134 H (70-110) mg/dL Calcium (8.4-10.2) mg/dL AST (14-36) U/L Alkaline Phosphatase (38-126) U/L C-Reactive Protein (<1.0) mg/dL Total Protein (6.3-8.2) g/dL Albumin (3.5-5.0) g/dL Microbiology - Last 24 Hours (Table) 12/10/23 14:41 Blood Culture - Preliminary Blood Assessment and Plan Assessment: 53 yo female w/ gastroparesis -zofran for emesis -continue tube feeds -bolster adjusted -no intervention Time with Patient: Greater than 30
--- NOTE | 2023-12-14 22:07 | PN ---
PROGRESS NOTE DATE OF SERVICE: 12/13/2023 SUBJECTIVE: She is doing better. This is a 53-year-old white female. She is eating oral food now. She is still being treated for the drug-resistant UTI and pancreatitis. Diet is improved. She is tolerating her tube feeding. She looks more hydrated. OBJECTIVE: NEUROLOGIC: Alert and oriented x3. CARDIOVASCULAR: S1, S2. LUNGS: Transmitted upper sounds. GI: Soft. HEMATOLOGY: Negative for Homans. PSYCH: Fair mood and affect. ASSESSMENT: DKA, pancreatitis, esophageal dysmobility, severe gastroparesis, dehydration, malnutrition. Continue type 1 diabetes mellitus. Continue current treatments. Advance diet. PT, OT possibly go home once we figure out with her UTI infection and drug-resistant infection. Tube feedings in place per surgery. MMODL / IJN: [id number] /
[2023-12-14 23:43] LABS: Glucose,Whole Blood 306 mg/dL (70-110)
[2023-12-15 06:00] LABS: Glucose,Whole Blood 351 mg/dL (70-110)
[2023-12-15 08:50] LABS: African American GFR (CKD) >90 (>60 ml/min/1.73 sqM); Non-African American GFR(CKD) >90 (>60 ml/min/1.73 sqM)
--- NOTE | 2023-12-15 10:48 | P.CNOR ---
History of Present Illness - [facility] Consult date: 12/15/23 Consult reason: other (Left wrist swelling and redness) History of present illness: Patient is a very pleasant 53-year-old female with longstanding history of chronic issues from her diabetes and gastroparesis. We are consulted with regard to left wrist swelling and erythema. Apparently the patient had been recently admitted to [facility] in the past couple weeks and had an IV at the left wrist that may have gotten infected. She had swelling and erythema around the left wrist has been stiff since then. She denies any fevers or chills. She is normally right-hand dominant. She says that her left hand and wrist is stiff it is tough to make a full fist. She says it has been red around the area and she has been on IV antibiotics with cefepime over the past 5 days with only small amount of change. The patient says that she feels it is making some improvement but has been very slow. She still has some swelling around her dorsum of her left wrist. She denies any numbness tingling. She denies any new injuries. She is continuing her gastric feeds per surgery. She is continuing her medical management. Review of Systems Denies numbness tingling hand or injury. She has stiffness at her wrist and hand. She is unable to flex well at her wrist and MCP joints on the left. She has minimal tenderness. There is an area of redness that has been there over the past couple of weeks. 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 MDRO Source:: Urine VRE and ESBL, MRSA-ABD Past Surgical History: Orthopedic Surgery, Tubal Ligation Additional Past Surgical History / Comment(s): rt shoulder Past Anesthesia/Blood Transfusion Reactions: No Reported Reaction Additional Past Anesthesia/Blood Transfusion Reaction / Comm: UNK FAMILY HX Past Psychological History: Anxiety Smoking Status: Current every day smoker Past Alcohol Use History: None Reported Past Drug Use History: None Reported - Past Family History Father History Unknown: Yes Additional Family Medical History / Comment(s): unknown-adopted Mother History Unknown: Yes Additional Family Medical History / Comment(s): unknown- adopted Medications and Allergies Home Medications Medication Instructions Recorded Confirmed Type ALPRAZolam [Xanax] 0.25 mg PO BID PRN 05/12/23 12/09/23 History Atorvastatin [Lipitor] 20 mg PO DAILY 05/12/23 12/09/23 History DULoxetine HCL [Cymbalta] 30 mg PO DAILY 05/12/23 12/09/23 History Insulin Lispro [humaLOG Kwikpen] 2 unit SQ AC-TID 05/12/23 12/09/23 History Ipratropium-Albuterol Nebulize 3 ml INHALATION RT-BID 05/12/23 12/09/23 History [Duoneb 0.5 mg-3 mg/3 ml Soln] Mirtazapine [Remeron] 30 mg PO HS 05/12/23 12/09/23 History Metoclopramide [Reglan] 10 mg PO ACHS 30 Days #120 tab 05/15/23 12/09/23 Rx Pantoprazole [Protonix] 40 mg PO AC-BID 30 Days #60 tab 05/21/23 12/09/23 Rx Folic Acid 1 mg PO DAILY 06/15/23 12/09/23 History Ondansetron [Zofran] 4 mg PO DAILY 30 Days #30 tab 06/26/23 12/09/23 Rx HYDROcodone/APAP 7.5-325MG [[place] 1 tab PO TID PRN 08/25/23 12/09/23 History 7.5-325] Acetaminophen Tab [Tylenol] 650 mg PO Q6HR PRN tab 10/16/23 12/09/23 Rx Loperamide [Imodium] 2 mg PO QID PRN cap 10/16/23 12/09/23 Rx Prochlorperazine Maleate 10 mg PO AC-BID 30 Days #60 tab 10/30/23 12/09/23 Rx Ferrous Sulfate [Feosol] 325 mg PO DAILY 12/09/23 12/09/23 History Insulin Glargine [Lantus Vial] 4 unit SQ DAILY 12/09/23 12/09/23 History Potassium Bicarb-Citric Acid 20 meq PO DAILY 12/09/23 12/09/23 History (Effer-K) 20meq Tab Scopolamine [Scopolamine 1 MG/72 1 patch TRANSDERM Q72H 12/09/23 12/09/23 History HR patch] Allergies Allergy/AdvReac Type Severity Reaction Status Date / Time fentanyl Allergy Unknown Verified 12/09/23 11:53 Physical Examination Osteopathic Statement: *. No significant issues noted on an osteopathic structural exam other than those noted in the History and Physical/Consult. - Wrist & Hand left Location of pain: dorsal wrist Wrist pain modifiers: with motion (She does not seem to have much pain with passive wrist flexion and MCP flexion. She has full extension. Her active flexion at her wrist and MCPs is limited.) Symptoms: wrist swelling, wrist stiffness Appearance: wrist erythema (At the dorsum of her left wrist toward the ulnar aspect extending over her MCP joints there is some erythema. There are some diffuse swelling without any fluid under pressure. There is no apparent abscess. She has stiffness with motion in flexion at her wrist and her MCP fady ints), wrist warmth (diffuse), wrist warmth (dorsal) Results - Labs Labs: Abnormal Lab Results - Last 24 Hours (Table) 12/14/23 12/14/23 12/14/23 Range/Units 11:36 15:04 19:02 Creatinine 0.37 L (0.52-1.04) mg/dL POC Glucose (mg/dL) 209 H 59 L (70-110) mg/dL 12/14/23 12/14/23 12/15/23 Range/Units 19:36 23:41 05:56 Creatinine (0.52-1.04) mg/dL POC Glucose (mg/dL) 134 H 306 H 351 H (70-110) mg/dL 12/15/23 Range/Units 06:03 Creatinine 0.44 L (0.52-1.04) mg/dL POC Glucose (mg/dL) (70-110) mg/dL H & H 12/09/23 12/10/23 12/11/23 Range/Units 10:22 07:40 09:18 Hgb 12.9 12.0 9.8 L D (11.4-16.0) gm/dL Hct 42.9 40.0 32.2 L (34.0-46.0) % 06/29/24 Range/Units 05:58 Hgb 9.7 L (11.4-16.0) gm/dL Hct 32.4 L (34.0-46.0) % Result Diagrams: 12/14/23 05:58 12/15/23 06:03 - Diagnostic results Wrist/Hand x-ray: report reviewed, image reviewed Wrist/Hand CT: report reviewed, image reviewed (Imaging with x-ray and CT is reviewed. They do note some collection and swelling at the MCP joint particularly over the fourth MCP. And also at the scapholunate. There is no fracture.) Assessment and Plan Assessment: Left wrist erythema and swelling status post infected IV site with cellulitis Slow improvement with prolonged antibiotics Left wrist stiffness at the MCP and radiocarpal Imaging showing possible fluid collection at the MCP joint dorsally Plan: Left wrist erythema and swelling status post infected IV site with cellulitis Slow improvement with prolonged antibiotics Left wrist stiffness at the MCP and radiocarpal Imaging showing possible fluid collection at the MCP joint dorsally The patient is having very slow improvement at the left wrist. She had an infected IV with cellulitis and has had prolonged antibiotics with very gradual effect. She is not having severe pain and her blood culture appears stable. Her white blood counts are slightly elevated. Her blood culture has been negative thus far. It is difficult to determine if there is a specific abscess. There is no specific fluid collection under pressure. CT scan does show some evidence of fluid or collection versus swelling at the dorsum of the MCP joints ulnarly. I discussed these findings with her and her issues. I reviewed the assessment from infectious disease any other services. I discussed the possibility of aspirating the area to see if we find any specific fluid collection. The patient agreed to have aspiration of the area and at bedside under sterile technique I was able to perform an aspiration at the base of the fourth MCP joint. There was no gross pus. There is no significant fluid collection. There is no purulence. There is some very small amount of bloody fluid which I processed for culture to be sent. The patient tolerated that well. We will continue to follow the culture and determine if there is further need for ortho pedic intervention. She should continue her IV antibiotics and is encouraged to do range of motion exercises with her hand and fingers. Will have therapy see her for some instruction for this Occupational Therapy. She may use her hand to tolerance. Time with Patient: Greater than 30
[2023-12-15 11:48] LABS: Glucose,Whole Blood 95 mg/dL (70-110)
[2023-12-15] MEDS: LOPERAMIDE 2 MG CAP PO PRN (11:51)
[2023-12-15 13:37] LABS: Basophils # (A) 0.1 k/uL (0-0.2); Basophils % (A) 1 %; Eosinophils # (A) 0.3 k/uL (0-0.7); Eosinophils % (A) 3 %; HCT 30.7 % (34.0-46.0); HGB 9.3 gm/dL (11.4-16.0); Hypochromasia Moderate; Lymphocytes # (A) 1.4 k/uL (1.0-4.8); Lymphocytes % (A) 17 %; MCH 27.9 pg (25.0-35.0); MCHC 30.4 g/dL (31.0-37.0); MCV 91.7 fL (80.0-100.0); Mean Platelet Volume 9.8; Monocytes # (A) 0.7 k/uL (0-1.0); Monocytes % (A) 9 %; Neutrophils # (A) 5.5 k/uL (1.3-7.7); Neutrophils % (A) 68 %; Platelet Count 385 k/uL (150-450); RBC 3.35 m/uL (3.80-5.40); RDW 14.7 % (11.5-15.5); WBC 8.1 k/uL (3.8-10.6)
--- NOTE | 2023-12-15 13:58 | P.PN ---
Subjective Progress Note Date: 12/15/23 Principal diagnosis: Gastroparesis Patient complaining of nausea. Vomited once yesterday. Tolerating some diet today. Mild epigastric pain. Objective - Vital Signs Vital signs: Vital Signs Temp 98.0 F 12/15/23 11:45 Pulse 115 H 12/15/23 11:45 Resp 18 12/15/23 11:45 BP 143/89 12/15/23 11:45 Pulse Ox 100 12/15/23 11:45 FiO2 Intake & Output 12/14/23 12/15/23 12/15/23 18:59 06:59 18:59 Intake Total 318 256 260 Balance 318 256 260 Weight 39.5 kg 41.2 kg Intake: IV 20 20 20 Invasive Line 4 20 20 20 Oral 298 236 240 Other: Voiding Method Diaper Diaper Diaper Incontinent Incontinent Incontinent - Exam Abdomen: Soft, mild epigastric tenderness, no rebound or guarding - Labs CBC & Chem 7: 12/15/23 06:03 12/15/23 06:03 Labs: Abnormal Lab Results - Last 24 Hours (Table) 12/14/23 12/14/23 12/14/23 Range/Units 15:04 19:02 19:36 RBC (3.80-5.40) m/uL Hgb (11.4-16.0) gm/dL Hct (34.0-46.0) % MCHC (31.0-37.0) g/dL Creatinine 0.37 L (0.52-1.04) mg/dL POC Glucose (mg/dL) 59 L 134 H (70-110) mg/dL 12/14/23 12/15/23 12/15/23 Range/Units 23:41 05:56 06:03 RBC (3.80-5.40) m/uL Hgb (11.4-16.0) gm/dL Hct (34.0-46.0) % MCHC (31.0-37.0) g/dL Creatinine 0.44 L (0.52-1.04) mg/dL POC Glucose (mg/dL) 306 H 351 H (70-110) mg/dL 12/15/23 Range/Units 06:03 RBC 3.35 L (3.80-5.40) m/uL Hgb 9.3 L (11.4-16.0) gm/dL Hct 30.7 L (34.0-46.0) % MCHC 30.4 L (31.0-37.0) g/dL Creatinine (0.52-1.04) mg/dL POC Glucose (mg/dL) (70-110) mg/dL Assessment and Plan (1) Gastroparesis Narrative/Plan: 53-year-old female with history of gastroparesis. Continue diet as tolerated. Optimize nutritional status and blood sugars. No surgical intervention. Current Visit: Yes Status: Acute Code(s): K31.84 - GASTROPARESIS SNOMED Code(s): 871574529
[2023-12-15 14:21] LABS: ALT 21 U/L (4-34); AST 40 U/L (14-36); Albumin 2.5 g/dL (3.5-5.0); Alkaline Phosphatase 152 U/L (38-126); Anion Gap 6 mmol/L; Blood Urea Nitrogen 24 mg/dL (7-17); C Reactive Protein 3.4 mg/dL (<1.0); Calcium 8.3 mg/dL (8.4-10.2); Carbon Dioxide 22 mmol/L (22-30); Chloride 107 mmol/L (98-107); Glucose 340 mg/dL (74-99); Potassium 5.7 mmol/L (3.5-5.1); Sodium 135 mmol/L (137-145); Total Bilirubin 0.3 mg/dL (0.2-1.3); Total Protein 5.6 g/dL (6.3-8.2)
[2023-12-15] MEDS: SCOPOLAMINE 1 MG/72 HR PATCH TRANSDERM PRN (15:02)
--- NOTE | 2023-12-15 15:39 | P.PN ---
Subjective Progress Note Date: 12/15/23 Principal diagnosis: Reason for follow-up is left wrist cellulitis Patient is a 53-year-old female with a past medical history of Diabetes mellitus hypertension gastroparesis multiple admission to the hospital apparently was recently admitted at [facility] with the patient did have an IV to the left wrist area that may have gotten infected and subsequently developing increasing pain swelling redness to the left wrist area prompting this consultation. On today's evaluation that is 12/15/2023, Patient is afebrile patient is currently on room air and denies having any shortness of breath, the patient denies any chest pain or cough, the patient did have some nausea but no vomiting, some abdominal pain and pain to the left wrist area patient was eval by orthopedic this morning he did have an aspiration of the suspected area but did not mention any purulence. Patient white normal at 8.1, creatinine 0.44 blood culture negative Objective - Vital Signs Vital signs: Vital Signs Temp 98.0 F 12/15/23 11:45 Pulse 115 H 12/15/23 11:45 Resp 18 12/15/23 11:45 BP 143/89 12/15/23 11:45 Pulse Ox 100 12/15/23 11:45 FiO2 Intake & Output 12/14/23 12/15/23 12/15/23 18:59 06:59 18:59 Intake Total 318 256 10 Balance 318 256 10 Weight 39.5 kg 41.2 kg Intake: IV 20 20 10 Invasive Line 4 20 20 10 Oral 298 236 Other: Voiding Method Diaper Diaper Diaper Incontinent Incontinent Incontinent - Exam GENERAL DESCRIPTION: Middle-aged female lying in bed in no distress RESPIRATORY SYSTEM: Unlabored breathing , decreased breath sounds at bases HEART: S1 S2 regular rate and rhythm , ABDOMEN: Soft , no tenderness EXTREMITIES: Left wrist erythema about the same no drainage - Labs CBC & Chem 7: 12/15/23 06:03 12/15/23 06:03 Labs: Abnormal Lab Results - Last 24 Hours (Table) 12/14/23 12/14/23 12/14/23 Range/Units 15:04 19:02 19:36 Creatinine 0.37 L (0.52-1.04) mg/dL POC Glucose (mg/dL) 59 L 134 H (70-110) mg/dL 12/14/23 12/15/23 12/15/23 Range/Units 23:41 05:56 06:03 Creatinine 0.44 L (0.52-1.04) mg/dL POC Glucose (mg/dL) 306 H 351 H (70-110) mg/dL Assessment and Plan (1) Cellulitis of left wrist Current Visit: Yes Status: Acute Code(s): L03.114 - CELLULITIS OF LEFT UPPER LIMB SNOMED Code(s): 09144444772477467 Plan: 1patient with a left wrist lateral border cellulitis from a previous IV site with the process started in the hospital will need to cover for resistant gram- positive such as MRSA. 2if the area started to drain to obtain local culture blood culture has been obtained which are currently pending 3patient did have CT of the left wrist area that was suspicious for possible fluid collection has been evaluated by orthopedics and did have aspiration of the area but no purulence culture has been obtained which are currently pending we will continue with the cefepime and vancomycin while waiting for the culture to finalize Dictation was produced using [employer] dictation software. please excuse any grammatical, word or spelling errors.
[2023-12-15 16:59] LABS: Glucose,Whole Blood 152 mg/dL (70-110)
[2023-12-15] MEDS: SODIUM POLYSTYRENE SULFONATE 15 GM/60 ML BOTTLE PO STA (17:16)
[2023-12-15 19:50] LABS: Glucose,Whole Blood 127 mg/dL (70-110)
[2023-12-16 05:49] LABS: Glucose,Whole Blood 259 mg/dL (70-110)
--- NOTE | 2023-12-16 07:09 | PN ---
PROGRESS NOTE SUBJECTIVE: The patient is slowly improving with nausea and vomiting. She ate lot of food yesterday. She is more nauseated today. Temperature 98, pulse 115, respiratory rate 16-18. Blood pressure 130s to 140s over 80s to 90s on room air. OBJECTIVE: CARDIOVASCULAR: S1-S2. LUNGS: Transmitted upper sounds. GI: Soft. HEMATOLOGY: Negative Homans. PSYCH: Fair mood and affect. Sugars . Orthopedics saw her for consultation with left wrist pain. She has been treated for cellulitis on her left wrist since admission. On documentation, she has cellulitis of the left hand, very slow improvement of the wrist, cannot tell if this is an abscess. CAT scan shows some evidence of fluid collection. We are going to aspirate the area. Aspiration of the 4th MCP joint. There is no gross pus. No fluid collection. Continue to follow up. Continue IV antibiotics. Await for cultures. Prognosis guarded. MMODL / IJN: [id number] /
[2023-12-16 07:24] LABS: African American GFR (CKD) >90 (>60 ml/min/1.73 sqM); Non-African American GFR(CKD) >90 (>60 ml/min/1.73 sqM)
--- NOTE | 2023-12-16 09:25 | P.PN ---
Progress Note - Text Progress Note Date: 12/16/23 Orthopedics: History of present illness: Patient is a very pleasant 53-year-old female who is seen and examined at bedside for follow-up evaluation of her left wrist. Attempted bedside aspiration was performed yesterday without any pus or obvious infection. Blood product was sent to the lab for culture. These results continue to be pending. Patient is currently on antibiotics with vancomycin and cefepime. She has not had significant change as compared to her symptoms yesterday. She is known to have previously had a custodial IV placed at her left wrist/hand area. She is being seen by multiple medical providers including medicine, infectious disease, and general surgery. Patient is known to have longstanding chronic difficulties with diabetes and gastroparesis. Physical Exam: Patient is awake, alert, and oriented 3 Vital signs stable Good chest excursion with deep inspiration and expiration Evidence of erythema and some swelling over the dorsum of the left hand and ulnar aspect left wrist extending to her MCP joints Patient does have difficulty making a fist with fingers of the left hand No significant erythema or swelling of the fingers of the left hand No erythema extending up the arm Difficulty performing left wrist flexion and extension independently No obvious palpable fluid collection Evidence of bedside aspiration site at the dorsum of the left hand without active drainage Assessment: Left wrist erythema and swelling status post infected IV site with cellulitis Left wrist and hand pain Left wrist stiffness with flexion and extension at the MCP Status post bedside aspiration Gastroparesis Diabetes mellitus Hypertension Plan: 1. Patient continues to have difficulty with erythema, swelling, and cellulitis at her left wrist and dorsum of the left hand. She has difficulty with active range of motion of her left wrist. She has difficulty making a fist on the left. She previously had long-term IV placement here. She underwent bedside aspiration yesterday without any pus or obvious infection. Blood product was sent to the lab for culture. These results are still pending. I do not appreciate a palpable fluid collection at the dorsum of her left hand or left wrist. Currently, we recommend her continue with conservative treatment with infectious disease with vancomycin and cefepime. These antibiotics may be changed per recommendations of infectious disease. We are waiting for culture results following aspiration. If culture results are positive, we may plan to have her be seen and examined by Dr. Katie Ferrell for further evaluation of her left wrist. We will continue to follow the patient as we wait for culture results. 2. Patient will continue be seen examined by multiple other medical providers including infectious disease, medicine, and general surgery
[2023-12-16 11:32] LABS: Glucose,Whole Blood 128 mg/dL (70-110)
--- NOTE | 2023-12-16 14:25 | P.PN ---
Subjective Progress Note Date: 12/16/23 CHIEF COMPLAINT: Nausea and vomiting HISTORY OF PRESENT ILLNESS: Patient reports improvement in her nausea and vomiting. She reports her abdominal pain is her chronic pain. No new pain. She is having loose stools. Afebrile. Mildly tachycardic. PHYSICAL EXAM: VITAL SIGNS: Reviewed. GENERAL: no acute distress. ABDOMEN: Soft. Nondistended. ASSESSMENT: 1. Diabetic gastroparesis contributing to patient's nausea and vomiting 2. Chronic abdominal pain PLAN: -No surgical intervention planned -Continue to optimize nutritional status and blood sugars -Continue tube feeds and diet as tolerated Physician Directory Compiler note has been reviewed by physician. Signing provider agrees with the documented findings, assessment, and plan of care. Objective - Vital Signs Vital signs: Vital Signs Temp 98.1 F 12/16/23 07:43 Pulse 120 H 12/16/23 12:20 Resp 18 12/16/23 12:20 BP 156/91 12/16/23 12:20 Pulse Ox 98 12/16/23 12:20 FiO2 Intake & Output 12/15/23 12/16/23 12/16/23 18:59 06:59 18:59 Intake Total 378 20 368 Balance 378 20 368 Weight 41.5 kg Intake: IV 20 20 10 Invasive Line 4 20 20 10 Oral 358 358 Other: Voiding Method Diaper Diaper Diaper Incontinent Incontinent Incontinent - Labs CBC & Chem 7: 12/15/23 06:03 12/16/23 06:07 Labs: Abnormal Lab Results - Last 24 Hours (Table) 12/15/23 12/15/23 12/15/23 Range/Units 06:03 14:18 16:57 ESR 102 H (0-30) mm/Hr Sodium 135 L (137-145) mmol/L Potassium 5.7 H (3.5-5.1) mmol/L BUN 24 H (7-17) mg/dL Creatinine (0.52-1.04) mg/dL Glucose 340 H (74-99) mg/dL POC Glucose (mg/dL) 152 H (70-110) mg/dL Calcium 8.3 L (8.4-10.2) mg/dL AST 40 H (14-36) U/L Alkaline Phosphatase 152 H (38-126) U/L C-Reactive Protein 3.4 H (<1.0) mg/dL Total Protein 5.6 L (6.3-8.2) g/dL Albumin 2.5 L (3.5-5.0) g/dL 12/15/23 12/16/23 12/16/23 Range/Units 19:48 05:47 06:07 ESR (0-30) mm/Hr Sodium (137-145) mmol/L Potassium (3.5-5.1) mmol/L BUN (7-17) mg/dL Creatinine 0.45 L (0.52-1.04) mg/dL Glucose (74-99) mg/dL POC Glucose (mg/dL) 127 H 259 H (70-110) mg/dL Calcium (8.4-10.2) mg/dL AST (14-36) U/L Alkaline Phosphatase (38-126) U/L C-Reactive Protein (<1.0) mg/dL Total Protein (6.3-8.2) g/dL Albumin (3.5-5.0) g/dL 12/16/23 Range/Units 11:26 ESR (0-30) mm/Hr Sodium (137-145) mmol/L Potassium (3.5-5.1) mmol/L BUN (7-17) mg/dL Creatinine (0.52-1.04) mg/dL Glucose (74-99) mg/dL POC Glucose (mg/dL) 128 H (70-110) mg/dL Calcium (8.4-10.2) mg/dL AST (14-36) U/L Alkaline Phosphatase (38-126) U/L C-Reactive Protein (<1.0) mg/dL Total Protein (6.3-8.2) g/dL Albumin (3.5-5.0) g/dL Microbiology - Last 24 Hours (Table) 12/15/23 10:25 Gram Stain - Preliminary Wrist - Left 12/10/23 14:41 Blood Culture - Final Blood
[2023-12-16 14:38] VITALS: BMI 18.4
[2023-12-16 16:18] LABS: Glucose,Whole Blood 124 mg/dL (70-110)
[2023-12-16] MEDS: amLODIPine 5 MG TAB PO SCH (18:17)
[2023-12-16 20:12] LABS: Glucose,Whole Blood 160 mg/dL (70-110)
--- NOTE | 2023-12-16 23:51 | PN ---
PROGRESS NOTE SUBJECTIVE: Still has some nausea, but much better. Cellulitis of left arm. [facility], Dr. Ferrell is going to take her to surgery tomorrow. Do an I and D of the left hand. Continues on vancomycin. Antibiotics per Dr. Brunson. Sugars are better. Blood pressure is better. Breathing better OBJECTIVE: CARDIOVASCULAR: S1, S2. LUNGS: Clear. GI: Soft. HEMATOLOGY: Negative Homans. ASSESSMENT: Cellulitis of left hand, possible abscess, systemic inflammatory response, insulin- dependent diabetes mellitus, gastrointestinal dysmotility, esophageal dysmotility. Continue current treatments. I and D of the hand in the morning. Prognosis guarded. MMODL / IJN: [id number] /
[2023-12-17] MEDS: DEXTROSE 5%-0.9% NACL 1,000 ML IV SCH (00:14)
[2023-12-17 00:26] LABS: Glucose,Whole Blood 205 mg/dL (70-110)
[2023-12-17 05:57] LABS: Glucose,Whole Blood 270 mg/dL (70-110)
--- NOTE | 2023-12-17 08:34 | P.PN ---
Subjective Progress Note Date: 12/17/23 Principal diagnosis: Left hand infection The patient is a 53 y/o female previously seen by Dr. James. She continues to have left hand swelling and pain from a previous IV site 2 weeks ago. Hand surgery was consulted for further evaluation and care. She underwent a bedside aspiration of the left hand by Dr. James that reveals MRSA. The patient states her hand is not much better since admission. Objective - Vital Signs Vital signs: Vital Signs Temp 98.3 F 12/17/23 07:01 Pulse 105 H 12/17/23 07:01 Resp 17 12/17/23 07:01 BP 127/79 12/17/23 07:01 Pulse Ox 92 L 12/17/23 07:01 FiO2 Intake & Output 12/16/23 12/17/23 12/17/23 18:59 06:59 18:59 Intake Total 724 Balance 724 Weight 41.5 kg 42.3 kg Intake: IV 10 Invasive Line 4 10 Oral 714 Other: Voiding Method Diaper Toilet Incontinent Diaper # Voids 1 # Bowel Movements 1 - Exam The patient is a 53 y/o female in no acute distress. She is alert and oriented x3. Exam of the left hand reveal improving swelling and erythema to the dorsal ulnar aspect, there is pain to palpation to the area. No fluctuant areas. No abscess present. There is stiffness to all of the MP joints of the hand and left wrist joint. Neurological and circulatory status is intact. - Labs CBC & Chem 7: 12/15/23 06:03 12/16/23 06:07 Labs: Abnormal Lab Results - Last 24 Hours (Table) 12/16/23 12/16/23 12/16/23 Range/Units 11:26 16:17 20:09 POC Glucose (mg/dL) 128 H 124 H 160 H (70-110) mg/dL 12/17/23 12/17/23 Range/Units 00:25 05:56 POC Glucose (mg/dL) 205 H 270 H (70-110) mg/dL Microbiology - Last 24 Hours (Table) 12/15/23 10:25 Gram Stain - Preliminary Wrist - Left Wound Culture - Preliminary Presumptive MRSA Assessment and Plan (1) Cellulitis of left wrist Current Visit: Yes Status: Acute Code(s): L03.114 - CELLULITIS OF LEFT UPPER LIMB SNOMED Code(s): 87032893119452940 Plan: The clinical findings were discussed with the patient and Dr. Ferrell. No deeper abscess or infection is suspected and surgical intervention is not needed at this time. She will continue IV antibiotics per infectious disease. OT has been consulted for hand and finger motion. We will continue to follow her while she remains in the hospital.
[2023-12-17 11:12] LABS: Glucose,Whole Blood 137 mg/dL (70-110)
--- NOTE | 2023-12-17 13:58 | PN ---
PROGRESS NOTE SUBJECTIVE: Yesenia is supposed to go for debridement of her left wrist due to cellulitis infection on CAT scan. Pulse 105, temperature 98.3, blood pressure 127/79, O2 95. She is on tube feedings, D5 fluids in the meantime. Sugars are mid 100s to 200s, under good control. She is going to hand surgery today by surgeon. She had a bedside aspiration that showed MRSA. She can go for debridement and antibiotics will be set up with Dr. Brunson. Continue with IV antibiotics, debridement today. PROGNOSIS: Guarded. Continue current treatment. MMODL / IJN: [id number] /
--- NOTE | 2023-12-17 14:29 | P.PN ---
Subjective Progress Note Date: 12/17/23 CHIEF COMPLAINT: Nausea and vomiting HISTORY OF PRESENT ILLNESS: Patient reports her chronic nausea and abdominal pain. She has no new complaints. She is tolerating tube feeds. Patient reports she is going to try to eat orally again today. Afebrile. Mild chronic PHYSICAL EXAM: VITAL SIGNS: Reviewed. GENERAL: no acute distress. ABDOMEN: Soft. Nondistended. ASSESSMENT: 1. Diabetic gastroparesis contributing to patient's nausea and vomiting 2. Chronic abdominal pain PLAN: -No surgical intervention planned -Continue medical management of nutritional status and blood sugars Physician Trashman note has been reviewed by physician. Signing provider agrees with the documented findings, assessment, and plan of care. Objective - Vital Signs Vital signs: Vital Signs Temp 97.9 F 12/17/23 14:14 Pulse 113 H 12/17/23 14:14 Resp 17 12/17/23 14:14 BP 102/64 12/17/23 14:14 Pulse Ox 96 12/17/23 14:14 FiO2 Intake & Output 12/16/23 12/17/23 12/17/23 18:59 06:59 18:59 Intake Total 724 120 Balance 724 120 Weight 41.5 kg 42.3 kg Intake: IV 10 Invasive Line 4 10 Oral 714 120 Other: Voiding Method Diaper Toilet Toilet Incontinent Diaper Diaper # Voids 1 # Bowel Movements 1 - Labs CBC & Chem 7: 12/15/23 06:03 12/16/23 06:07 Labs: Abnormal Lab Results - Last 24 Hours (Table) 12/16/23 12/16/23 12/17/23 Range/Units 16:17 20:09 00:25 POC Glucose (mg/dL) 124 H 160 H 205 H (70-110) mg/dL 12/17/23 12/17/23 Range/Units 05:56 11:07 POC Glucose (mg/dL) 270 H 137 H (70-110) mg/dL Microbiology - Last 24 Hours (Table) 12/15/23 10:25 Gram Stain - Preliminary Wrist - Left Wound Culture - Preliminary Presumptive MRSA
--- NOTE | 2023-12-17 15:49 | P.PN ---
Subjective Progress Note Date: 12/16/23 Principal diagnosis: Reason for follow-up is left wrist cellulitis Patient is a 53-year-old female with a past medical history of Diabetes mellitus hypertension gastroparesis multiple admission to the hospital apparently was recently admitted at [facility] with the patient did have an IV to the left wrist area that may have gotten infected and subsequently developing increasing pain swelling redness to the left wrist area prompting this consultation. On today's evaluation that is 12/16/2023, patient has been afebrile, patient is breathing comfortably and is currently on room air, patient denies having any significant cough no chest pain shortness of breath, patient complains of some nausea and abdominal pain chronic for her denies any worsening pain to the left wrist area. Patient did have a creatinine 0.45 no CBC was done today Objective - Vital Signs Vital signs: Vital Signs Temp 98.3 F 12/16/23 15:36 Pulse 112 H 12/16/23 18:25 Resp 18 12/16/23 15:36 BP 139/81 12/16/23 18:19 Pulse Ox 99 12/16/23 15:36 FiO2 Intake & Output 12/15/23 12/16/23 12/16/23 18:59 06:59 18:59 Intake Total 378 20 724 Balance 378 20 724 Weight 41.5 kg 41.5 kg Intake: IV 20 20 10 Invasive Line 4 20 20 10 Oral 358 714 Other: Voiding Method Diaper Diaper Diaper Incontinent Incontinent Incontinent - Exam GENERAL DESCRIPTION: Middle-aged female lying in bed in no distress RESPIRATORY SYSTEM: Unlabored breathing , decreased breath sounds at bases HEART: S1 S2 regular rate and rhythm , ABDOMEN: Soft , no tenderness EXTREMITIES: Left wrist erythema about the same no drainage - Labs CBC & Chem 7: 12/15/23 06:03 12/16/23 06:07 Labs: Abnormal Lab Results - Last 24 Hours (Table) 12/15/23 12/15/23 12/16/23 Range/Units 14:18 19:48 05:47 ESR 102 H (0-30) mm/Hr Creatinine (0.52-1.04) mg/dL POC Glucose (mg/dL) 127 H 259 H (70-110) mg/dL 12/16/23 12/16/23 12/16/23 Range/Units 06:07 11:26 16:17 ESR (0-30) mm/Hr Creatinine 0.45 L (0.52-1.04) mg/dL POC Glucose (mg/dL) 128 H 124 H (70-110) mg/dL Microbiology - Last 24 Hours (Table) 12/15/23 10:25 Gram Stain - Preliminary Wrist - Left 12/10/23 14:41 Blood Culture - Final Blood Assessment and Plan (1) Cellulitis of left wrist Current Visit: Yes Status: Acute Code(s): L03.114 - CELLULITIS OF LEFT UPPER LIMB SNOMED Code(s): 82105022324567918 Plan: 1patient with a left wrist lateral border cellulitis from a previous IV site with the process started in the hospital will need to cover for resistant gram- positive such as MRSA. 2if the area started to drain to obtain local culture blood culture has been obtained which are currently pending 3patient did have CT of the left wrist area that was suspicious for possible fluid collection has been evaluated by orthopedics and did have aspiration of the area but no purulence culture has been obtained which are currently pending 4-we will continue cefepime and vancomycin while waiting for the culture to finalize Dictation was produced using [employer] dictation software. please excuse any grammatical, word or spelling errors. Time with Patient: Less than 30
--- NOTE | 2023-12-17 15:50 | P.PN ---
Subjective Progress Note Date: 12/17/23 Principal diagnosis: Reason for follow-up is left wrist cellulitis Patient is a 53-year-old female with a past medical history of Diabetes mellitus hypertension gastroparesis multiple admission to the hospital apparently was recently admitted at [facility] with the patient did have an IV to the left wrist area that may have gotten infected and subsequently developing increasing pain swelling redness to the left wrist area prompting this consultation. On today's evaluation that is 12/17/2023, Patient is afebrile this morning and denies any chills, patient mention breathing comfortably and is currently on room air, patient denies any chest pain occasional cough patient denies any worsening abdominal pain no diarrhea nausea but no vomiting left wrist area swelling redness has decreased. No new lab has been repeated today cultures currently growing presumptive MRSA Objective - Vital Signs Vital signs: Vital Signs Temp 98.3 F 12/17/23 07:01 Pulse 112 H 12/17/23 08:50 Resp 17 12/17/23 07:01 BP 127/79 12/17/23 07:01 Pulse Ox 92 L 12/17/23 07:01 FiO2 Intake & Output 12/16/23 12/17/23 12/17/23 18:59 06:59 18:59 Intake Total 724 Balance 724 Weight 41.5 kg 42.3 kg Intake: IV 10 Invasive Line 4 10 Oral 714 Other: Voiding Method Diaper Toilet Toilet Incontinent Diaper Diaper # Voids 1 # Bowel Movements 1 - Exam GENERAL DESCRIPTION: Middle-aged female lying in bed in no distress RESPIRATORY SYSTEM: Unlabored breathing , decreased breath sounds at bases HEART: S1 S2 regular rate and rhythm , ABDOMEN: Soft , no tenderness EXTREMITIES: Left wrist erythema about the same no drainage - Labs CBC & Chem 7: 12/15/23 06:03 12/16/23 06:07 Labs: Abnormal Lab Results - Last 24 Hours (Table) 12/16/23 12/16/23 12/17/23 Range/Units 16:17 20:09 00:25 POC Glucose (mg/dL) 124 H 160 H 205 H (70-110) mg/dL 12/17/23 12/17/23 Range/Units 05:56 11:07 POC Glucose (mg/dL) 270 H 137 H (70-110) mg/dL Microbiology - Last 24 Hours (Table) 12/15/23 10:25 Gram Stain - Preliminary Wrist - Left Wound Culture - Preliminary Presumptive MRSA Assessment and Plan (1) Cellulitis of left wrist Current Visit: Yes Status: Acute Code(s): L03.114 - CELLULITIS OF LEFT UPPER LIMB SNOMED Code(s): 81055313708092753 Plan: 1patient with a left wrist lateral border cellulitis from a previous IV site with the process started in the hospital will need to cover for resistant gram- positive such as MRSA. 2if the area started to drain to obtain local culture blood culture has been obtained which are currently pending 3patient did have CT of the left wrist area that was suspicious for possible fluid collection has been evaluated by orthopedics and did have aspiration of t he area but no purulence culture has been obtained which are currently growing presumptive MRSA 4-we will continue with vancomycin while waiting for the sensitivities to finalize however discontinue cefepime Dictation was produced using [employer] dictation software. please excuse any grammatical, word or spelling errors. Time with Patient: Less than 30
--- NOTE | 2023-12-17 16:48 | CDI ---
Documentation Clarification Form Date: 12/17/2023 04:41:13 PM From: Giulia Hood RN, CCDS Phone: [phone] Admit Date: 12/09/2023 11:18:00 AM Patient Name: Lesa Patterson Visit Number: [id number] Discharge Date: ATTENTION: The Clinical Documentation Specialists (CDI) and [facility] Coding Staff appreciate your assistance in clarifying documentation. Please respond to the clarification below the line at the bottom and electronically sign. The CDI & [facility] Coding staff will review the response and follow-up if needed. Please note: Queries are made part of the Legal Health Record. If you have any questions, please contact the author of this message via ITS. Dr. Dell Pike Malnutrition is documented in the H/P and progress notes and the patient has poor nutrition intake with nausea, vomiting and gastroparesis. Please further clarify malnutrition dx & severity. Based on this information and the findings below, is there an additional diagnosis that is clinically appropriate for this patient? History/Risk Factors: Diabetes Mellitus, Hypertension, Musculoskeletal Disorder, diabetic gastroparesis. Clinical Indicators: 53-year-old female with nausea, vomiting, diabetic gastroparesis. Current BMI: 12/11 16,1; 7/ BMI 18.8 Height 4 ft 11 in Underweight Nutritional Assessment: Intake Poor 25-50% not tolerating diet Patient complains of nausea. Appetite Poor Treatment: Tube Feeding Glucerna 1.5 1,200 ml @ 50 ml/hr Free water flush 30 ml every 4 hours Carbohydrate-modified diet, Fat-modified diet Monitor PO and tube feeding Is there an additional diagnosis that is clinically appropriate for this patient? [ ] Mild Protein-Calorie Malnutrition [ ] Moderate Protein-Calorie Malnutrition [ ] Severe Protein-Calorie Malnutrition [ ] No additional diagnosis/Not clinically significant [ ] Other condition, please specify [ ] Unable to Determine (Template Last Revised: December 2022) MTDD
[2023-12-17 16:55] LABS: Glucose,Whole Blood 150 mg/dL (70-110)
[2023-12-17 23:58] LABS: Glucose,Whole Blood 240 mg/dL (70-110)
[2023-12-18 05:53] LABS: Glucose,Whole Blood 310 mg/dL (70-110)
[2023-12-18 06:39] LABS: African American GFR (CKD) >90 (>60 ml/min/1.73 sqM); Non-African American GFR(CKD) >90 (>60 ml/min/1.73 sqM)
[2023-12-18 08:37] VITALS: RESP 18
[2023-12-18 12:05] LABS: Glucose,Whole Blood 177 mg/dL (70-110)
--- NOTE | 2023-12-18 13:25 | P.PN ---
Subjective Progress Note Date: 12/18/23 CHIEF COMPLAINT: Nausea and vomiting HISTORY OF PRESENT ILLNESS: Patient reports her chronic nausea and abdominal pain. She has no new complaints. She is tolerating tube feeds. Afebrile. PHYSICAL EXAM: VITAL SIGNS: Reviewed. GENERAL: no acute distress. ABDOMEN: Soft. Nondistended. ASSESSMENT: 1. Diabetic gastroparesis contributing to patient's nausea and vomiting 2. Chronic abdominal pain PLAN: -No surgical intervention planned -Continue medical management of nutritional status and blood sugars -Surgical service will sign off. Please call with any questions or concerns. Physician Police Lieutenant Patrol note has been reviewed by physician. Signing provider agrees with the documented findings, assessment, and plan of care. Objective - Vital Signs Vital signs: Vital Signs Temp 98.0 F 12/18/23 07:49 Pulse 120 H 12/18/23 09:45 Resp 18 12/18/23 07:49 BP 135/84 12/18/23 07:49 Pulse Ox 94 L 12/18/23 07:49 FiO2 Intake & Output 12/17/23 12/18/23 12/18/23 18:59 06:59 18:59 Intake Total 240 300 Balance 240 300 Weight 42.7 kg Intake: Oral 240 Tube Feeding 300 Other: Voiding Method Toilet Toilet Diaper Diaper # Voids 2 - Labs CBC & Chem 7: 12/15/23 06:03 12/18/23 06:04 Labs: Abnormal Lab Results - Last 24 Hours (Table) 12/17/23 12/17/23 12/18/23 Range/Units 16:53 23:56 05:50 Creatinine (0.52-1.04) mg/dL POC Glucose (mg/dL) 150 H 240 H 310 H (70-110) mg/dL 12/18/23 12/18/23 Range/Units 06:04 12:04 Creatinine 0.50 L (0.52-1.04) mg/dL POC Glucose (mg/dL) 177 H (70-110) mg/dL Microbiology - Last 24 Hours (Table) 12/15/23 10:25 Gram Stain - Final Wrist - Left Wound Culture - Final Methicillin resist S. aureus
--- NOTE | 2023-12-18 16:32 | P.PN ---
Subjective Progress Note Date: 12/18/23 Principal diagnosis: Reason for follow-up is left wrist cellulitis Patient is a 53-year-old female with a past medical history of Diabetes mellitus hypertension gastroparesis multiple admission to the hospital apparently was recently admitted at [facility] with the patient did have an IV to the left wrist area that may have gotten infected and subsequently developing increasing pain swelling redness to the left wrist area prompting this consultation. On today's evaluation that is 12/18/2023,the patient denies any fever or any chills, patient is breathing comfortably on room air, the patient denies chest pain shortness of breath and no significant cough, patient still, some nausea but no vomiting left wrist area pain and swelling slightly decreased. Patient a creatinine 0.50 local culture growing MRSA Objective - Vital Signs Vital signs: Vital Signs Temp 98.0 F 12/18/23 07:49 Pulse 120 H 12/18/23 09:45 Resp 18 12/18/23 07:49 BP 135/84 12/18/23 07:49 Pulse Ox 94 L 12/18/23 07:49 FiO2 Intake & Output 12/17/23 12/18/23 12/18/23 18:59 06:59 18:59 Intake Total 240 300 Balance 240 300 Weight 42.7 kg Intake: Oral 240 Tube Feeding 300 Other: Voiding Method Toilet Toilet Diaper Diaper # Voids 2 - Exam GENERAL DESCRIPTION: Middle-aged female lying in bed in no distress RESPIRATORY SYSTEM: Unlabored breathing , decreased breath sounds at bases HEART: S1 S2 regular rate and rhythm , ABDOMEN: Soft , no tenderness EXTREMITIES: Left wrist erythema about the same no drainage - Labs CBC & Chem 7: 12/15/23 06:03 12/18/23 06:04 Labs: Abnormal Lab Results - Last 24 Hours (Table) 12/17/23 12/17/23 12/18/23 Range/Units 16:53 23:56 05:50 Creatinine (0.52-1.04) mg/dL POC Glucose (mg/dL) 150 H 240 H 310 H (70-110) mg/dL 12/18/23 12/18/23 Range/Units 06:04 12:04 Creatinine 0.50 L (0.52-1.04) mg/dL POC Glucose (mg/dL) 177 H (70-110) mg/dL Microbiology - Last 24 Hours (Table) 12/15/23 10:25 Gram Stain - Final Wrist - Left Wound Culture - Final Methicillin resist S. aureus Assessment and Plan (1) Cellulitis of left wrist Current Visit: Yes Status: Acute Code(s): L03.114 - CELLULITIS OF LEFT UPPER LIMB SNOMED Code(s): 98348257018241855 Plan: 1patient with a left wrist lateral border cellulitis from a previous IV site with the process started in the hospital will need to cover for resistant gram- positive such as MRSA. 2if the area started to drain to obtain local culture blood culture has been obtained which are currently pending 3patient did have CT of the left wrist area that was suspicious for possible fluid collection has been evaluated by orthopedics and did have aspiration of the area but no purulence culture has been obtained which are currently growing MRSA that is sensitive to doxycycline and Bactrim 4-patient to continue vancomycin while watching kidney function closely will be able to finish therapy with oral doxycycline Dictation was produced using [employer] dictation software. please excuse any grammatical, word or spelling errors. Time with Patient: Less than 30
--- NOTE | 2023-12-18 16:41 | P.PN ---
Subjective Progress Note Date: 12/18/23 Principal diagnosis: Left hand infection The patient is a 53 y/o female previously seen by Dr. James. She continues to have left hand swelling and pain from a previous IV site 2 weeks ago. Hand surgery was consulted for further evaluation and care. She underwent a bedside aspiration of the left hand by Dr. James that reveals MRSA. The patient states her hand is feeling better since admission. Objective - Vital Signs Vital signs: Vital Signs Temp 98.5 F 12/18/23 13:54 Pulse 75 12/18/23 13:54 Resp 18 12/18/23 13:54 BP 125/71 12/18/23 13:54 Pulse Ox 98 12/18/23 13:54 FiO2 Intake & Output 12/17/23 12/18/23 12/18/23 18:59 06:59 18:59 Intake Total 240 300 Balance 240 300 Weight 42.7 kg Intake: Oral 240 Tube Feeding 300 Other: Voiding Method Toilet Toilet Diaper Diaper # Voids 2 - Exam The patient is a 53 y/o female in no acute distress. She is alert and oriented x3. Exam of the left hand reveal improving swelling and erythema to the dorsal ulnar aspect, there is pain to palpation to the area. No fluctuant areas. No abscess present. There is stiffness to all of the MP joints of the hand and left wrist joint. Neurological and circulatory status is intact. - Labs CBC & Chem 7: 12/15/23 06:03 12/18/23 06:04 Labs: Abnormal Lab Results - Last 24 Hours (Table) 12/17/23 12/17/23 12/18/23 Range/Units 16:53 23:56 05:50 Creatinine (0.52-1.04) mg/dL POC Glucose (mg/dL) 150 H 240 H 310 H (70-110) mg/dL 12/18/23 12/18/23 Range/Units 06:04 12:04 Creatinine 0.50 L (0.52-1.04) mg/dL POC Glucose (mg/dL) 177 H (70-110) mg/dL Microbiology - Last 24 Hours (Table) 12/15/23 10:25 Gram Stain - Final Wrist - Left Wound Culture - Final Methicillin resist S. aureus Assessment and Plan (1) Cellulitis of left wrist Current Visit: Yes Status: Acute Code(s): L03.114 - CELLULITIS OF LEFT UPPER LIMB SNOMED Code(s): 72963751132815683 Plan: The clinical findings were discussed with the patient and Dr. Ferrell. No deeper abscess or infection is suspected and surgical intervention is not needed at this time. She will continue IV antibiotics per infectious disease. OT has been consulted for hand and finger motion. She will follow up on an outpatient basis with Dr. Ferrell. She may discharge home when antibiotics are decided.
[2023-12-18 16:51] LABS: Glucose,Whole Blood 163 mg/dL (70-110)
[2023-12-18 20:54] LABS: Glucose,Whole Blood 187 mg/dL (70-110)
[2023-12-19] MEDS: INSULIN ASPART (NovoLOG) 100 UNIT/ML VIAL SQ SCH (00:49)
[2023-12-19 06:34] LABS: Glucose,Whole Blood 198 mg/dL (70-110)
[2023-12-19 11:40] LABS: Glucose,Whole Blood 186 mg/dL (70-110)
[2023-12-19] MEDS: DOXYCYCLINE 100 MG CAP PO SCH (12:49)
[2023-12-19] MEDS ORDERED: VANCOMYCIN TROUGH DUE 1 EACH MISC MISCELLANE ONE (13:00)
[2023-12-19 15:46] VITALS: BP 153/85; PULSE 119; TEMP 98.5
--- NOTE | 2023-12-19 16:17 | P.PN ---
Subjective Progress Note Date: 12/19/23 Principal diagnosis: Reason for follow-up is left wrist cellulitis Patient is a 53-year-old female with a past medical history of Diabetes mellitus hypertension gastroparesis multiple admission to the hospital apparently was recently admitted at [facility] with the patient did have an IV to the left wrist area that may have gotten infected and subsequently developing increasing pain swelling redness to the left wrist area prompting this consultation. On today's evaluation that is 12/19/2023,the patient remains to be afebrile, patient is on room air not requiring supplemental oxygen and denies any shortness of breath no chest pain or cough.Patient denies having any nausea or vomiting, improvement in abdominal pain as well as pain to the left wrist area. No new lab has been repeated today Objective - Vital Signs Vital signs: Vital Signs Temp 98.3 F 12/19/23 02:15 Pulse 99 12/19/23 09:11 Resp 18 12/19/23 02:15 BP 130/73 12/19/23 02:15 Pulse Ox 91 L 12/19/23 02:15 FiO2 Intake & Output 12/18/23 12/19/23 12/19/23 18:59 06:59 18:59 Intake Total 300 Balance 300 Weight 44.8 kg Intake: Tube Feeding 300 Other: Voiding Method Toilet Diaper - Exam GENERAL DESCRIPTION: Middle-aged female lying in bed in no distress RESPIRATORY SYSTEM: Unlabored breathing , decreased breath sounds at bases HEART: S1 S2 regular rate and rhythm , ABDOMEN: Soft , no tenderness EXTREMITIES: Left wrist erythema about the same no drainage - Labs CBC & Chem 7: 12/15/23 06:03 12/18/23 06:04 Labs: Abnormal Lab Results - Last 24 Hours (Table) 12/18/23 12/18/23 12/19/23 Range/Units 16:49 20:51 06:32 POC Glucose (mg/dL) 163 H 187 H 198 H (70-110) mg/dL 12/19/23 Range/Units 11:38 POC Glucose (mg/dL) 186 H (70-110) mg/dL Assessment and Plan (1) Cellulitis of left wrist Current Visit: Yes Status: Acute Code(s): L03.114 - CELLULITIS OF LEFT UPPER LIMB SNOMED Code(s): 91857739467820860 Plan: 1patient with a left wrist lateral border cellulitis from a previous IV site with the process started in the hospital will need to cover for resistant gram- positive such as MRSA. 2if the area started to drain to obtain local culture blood culture has been obtained which are currently pending 3patient did have CT of the left wrist area that was suspicious for possible fluid collection has been evaluated by orthopedics and did have aspiration of the area but no purulence culture has been obtained which are currently growing MRSA 4-patient seem to have shown overall improvement to the left wrist cellulitis patient be able to finish therapy with doxycycline and close outpatient follow- up Dictation was produced using [employer] software. please excuse any grammatical, word or spelling errors. Time with Patient: Less than 30
[2023-12-19 16:59] LABS: Glucose,Whole Blood 164 mg/dL (70-110)
--- NOTE | 2023-12-20 02:12 | PN ---
PROGRESS NOTE DATE OF SERVICE: 12/18/2023 The patient is doing better with IV antibiotics for her left hand. They never took a biopsy of it to go for surgery. The culture showed MRSA. Has been getting better with IV antibiotics, possibly switch to oral antibiotics. Her nausea and vomiting improved. She is on tube feedings at a normal rate. Temp 98.5, pulse 75, respiratory rate 18, blood pressure 125/71, and O2 of 98. Hemoglobin is 9.3, hematocrit 30.7. White count is 8.1. She feels happier. She is doing better. She is more hydrated. Her hand is getting better with IV antibiotics. intact. She has cellulitis of the left wrist improving without surgical intervention, treated with IV antibiotics, discharged to home once started on oral antibiotics. Gastroparesis improved. Diabetes is stable. Sugars are in the mid 100s. Prognosis guarded. Continue current treatment. Possibly go home in next 24 hours. MMODL / IJN: [id number] /
--- NOTE | 2023-12-26 12:30 | PN ---
PROGRESS NOTE Severe protein calorie malnutrition. MMODL / IJN: [id number] /
== END 2023-12-19 17:51 | disposition home or self-care (01) | DRG 637 ==
LOC: EC 09:50 → 3SCARD 11:18 → 4SSUR 12-16 22:34
PROVIDERS: ADMIT Family Medicine; ATTEND Family Medicine
PROC: 05HB33Z Insertion of Infusion Device into Right Basilic Vein, Percutaneous Approach (ICD-10-PCS; principal; 2023-12-13 09:15)
DX: E11.10 Type 2 diabetes mellitus with ketoacidosis without coma (principal); E43 Unspecified severe protein-calorie malnutrition; K85.90 Acute pancreatitis without necrosis or infection, unspecified; E87.3 Alkalosis; L03.114 Cellulitis of left upper limb; R64 Cachexia; Z68.1 Body mass index [BMI] 19.9 or less, adult; I10 Essential (primary) hypertension; G89.29 Other chronic pain; E86.0 Dehydration; E11.42 Type 2 diabetes mellitus with diabetic polyneuropathy; K22.4 Dyskinesia of esophagus; B95.62 Methicillin resistant Staphylococcus aureus infection as the cause of diseases classified elsewhere; I25.10 Atherosclerotic heart disease of native coronary artery without angina pectoris; K31.84 Gastroparesis; R19.7 Diarrhea, unspecified; E11.43 Type 2 diabetes mellitus with diabetic autonomic (poly)neuropathy; Z93.4 Other artificial openings of gastrointestinal tract status; Z79.899 Other long term (current) drug therapy; Z98.51 Tubal ligation status
CPT/HCPCS: 36410; 36415; 76937; 80053; 80202; 81001; 82009; 82150; 82565; 83036; 83605; 83690; 83735; 84100; 85025; 85652; 86140; 87040; 87070; 87077; 87086; 87186; 87205; 94640; 96361; 96374; 96375; 96376; 99285

== ENCOUNTER 2023-12-27 12:06 | Inpatient (IN) | payer MEDICARE, OTHER ==
[2023-12-27] MEDS: SODIUM CHLORIDE 0.9% 500 ML 500 ML IV ONE (12:21)
--- NOTE | 2023-12-27 12:25 | ED ---
General Adult HPI - General Stated complaint: Abd pain Time Seen by Provider: 12/27/23 12:06 Source: patient, RN notes reviewed, old records reviewed - History of Present Illness Initial comments: This is a 53-year-old female who presents to the emergency department complaining of gastroparesis and vomiting. Patient states she has not been able to eat anything lately and her sugars been extremely high. Patient states she is getting PEG tube feedings. Patient states this been an ongoing problem with her. Patient denies any headache patient denies numbness weakness patient denies chest pain difficulty breathing shortness of breath. Patient states she has abdominal pain just before he vomits. Patient denies any diarrhea. Patient denies any recent fever chills or cough. - Related Data Home Medications Medication Instructions Recorded Confirmed ALPRAZolam [Xanax] 0.25 mg PO BID PRN 05/12/23 12/09/23 Atorvastatin [Lipitor] 20 mg PO DAILY 05/12/23 12/09/23 DULoxetine HCL [Cymbalta] 30 mg PO DAILY 05/12/23 12/09/23 Insulin Lispro [humaLOG Kwikpen] 2 unit SQ AC-TID 05/12/23 12/09/23 Ipratropium-Albuterol Nebulize 3 ml INHALATION RT-BID 05/12/23 12/09/23 [Duoneb 0.5 mg-3 mg/3 ml Soln] Mirtazapine [Remeron] 30 mg PO HS 05/12/23 12/09/23 Folic Acid 1 mg PO DAILY 06/15/23 12/09/23 HYDROcodone/APAP 7.5-325MG [[place] 1 tab PO TID PRN 08/25/23 12/09/23 7.5-325] Ferrous Sulfate [Iron (65 MG 325 mg PO DAILY 12/09/23 12/09/23 Elemental)] Insulin Glargine [Lantus Vial] 4 unit SQ DAILY 12/09/23 12/09/23 Potassium Bicarb-Citric Acid 20 meq PO DAILY 12/09/23 12/09/23 (Effer-K) 20meq Tab Scopolamine [Scopolamine 1 MG/72 1 patch TRANSDERM Q72H 12/09/23 12/09/23 HR patch] Previous Rx's Medication Instructions Recorded Metoclopramide [Reglan] 10 mg PO ACHS 30 Days #120 tab 05/15/23 Pantoprazole [Protonix] 40 mg PO AC-BID 30 Days #60 tab 05/21/23 Ondansetron [Zofran] 4 mg PO DAILY 30 Days #30 tab 06/26/23 Acetaminophen Tab [Tylenol] 650 mg PO Q6HR PRN tab 10/16/23 Loperamide [Imodium] 2 mg PO QID PRN cap 10/16/23 Prochlorperazine Maleate 10 mg PO AC-BID 30 Days #60 tab 10/30/23 Doxycycline [Vibramycin] 100 mg PO BID 30 Days #60 cap 12/19/23 amLODIPine [Norvasc] 5 mg PO DAILY 90 Days #90 tab 12/19/23 Allergies Allergy/AdvReac Type Severity Reaction Status Date / Time fentanyl Allergy Unknown Verified 12/27/23 12:16 Review of Systems ROS Statement: Those systems with pertinent positive or pertinent negative responses have been documented in the HPI. ROS Other: All systems not noted in ROS Statement are negative. Past Medical History Past Medical History: Diabetes Mellitus, Hypertension, Musculoskeletal Disorder Additional Past Medical History / Comment(s): FREQ NAUSEA, PAINFUL RT SHOULDER "FROZEN SHOULDER", NEUROPATHY PORFIRIO LEGS and hands, Blood pressures can run high History of Any Multi-Drug Resistant Organisms: ESBL, MRSA, VRE Date of last positivie culture/infection: 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;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 MDRO Source:: Urine VRE and ESBL, MRSA-ABD Past Surgical History: Cholecystectomy, Orthopedic Surgery, Tubal Ligation Additional Past Surgical History / Comment(s): rt shoulder, J tube placement Past Anesthesia/Blood Transfusion Reactions: No Reported Reaction Additional Past Anesthesia/Blood Transfusion Reaction / Comment(s): UNK FAMILY HX Past Psychological History: Anxiety Smoking Status: Current every day smoker Past Alcohol Use History: None Reported Additional Past Alcohol Use History / Comment(s): STARTED SMOKING 1987, smokes about 6 cigs/day Past Drug Use History: None Reported Additional Drug Use History / Comment(s): Patient denies using marijuana. - Past Family History Father History Unknown: Yes Additional Family Medical History / Comment(s): unknown-adopted Mother History Unknown: Yes Additional Family Medical History / Comment(s): unknown- adopted General Exam - General Exam Comments Initial Comments: GENERAL: Patient is cachectic. Patient is nontoxic and well-hydrated and is in no acute distress. ENT: Neck is soft and supple. No significant lymphadenopathy is noted. Oropharynx is clear. Moist mucous membranes. Neck has full range of motion without eliciting any pain. EYES: The sclera were anicteric and conjunctiva were pink and moist. Extraocular movements were intact and pupils were equal round and reactive to light. Eye lids were unremarkable. PULMONARY: Unlabored respirations. Good breath sounds bilaterally. No audible rales rhonchi or wheezing was noted. CARDIOVASCULAR: Patient is tachycardic at 110 beats a minute ABDOMEN: Soft and nontender with normal bowel sounds. SKIN: Skin is clear with no lesions or rashes and otherwise unremarkable. NEUROLOGIC: Patient is alert and oriented x3. Cranial nerves II through XII are grossly intact. Motor and sensory are also intact. Normal speech, volume and content. Symmetrical smile. MUSCULOSKELETAL: Normal extremities with adequate strength and full range of motion. No lower extremity swelling or edema. No calf tenderness. LYMPHATICS: No significant lymphadenopathy is noted PSYCHIATRIC: Normal psychiatric evaluation. Course Vital Signs 12/27/23 12:10 Temperature 98.0 F Pulse Rate 110 H Respiratory 17 Rate Blood Pressure 103/72 O2 Sat by Pulse 99 Oximetry Medical Decision Making - Medical Decision Making EKG is interpreted by myself. EKG shows sinus tachycardia at 108 bpm parables 112 QRS of 72 QT interval 338 QTc is 402. Patient's EKG shows no ST segment ovation or depression. Was pt. sent in by a medical professional or institution (, PA, J2EE APPLICATION DEVELOPER, urgent care, hospital, or care home...) When possible be specific @ -No Did you speak to anyone other than the patient for history (EMS, parent, family, police, friend...)? What history was obtained from this source @ -No Did you review nursing and triage notes (agree or disagree)? Why? @ -I reviewed and agree with nursing and triage notes Were old charts reviewed (outside hosp., previous admission, EMS record, old EKG, old radiological studies, urgent care reports/EKG's, care home records)? Report findings @ -No old charts were reviewed Differential Diagnosis? @ -Gastroparesis, acute vomiting, gastroenteritis, DKA, cholecystitis, appendicitis, this is not an all-inclusive list EKG interpreted by me (3pts min.). @ -As above X-rays interpreted by me (1pt min.). @ -None done CT interpreted by me (1pt min.). @ -None done U/S interpreted by me (1pt. min.). @ -None done What testing was considered but not performed or refused? (CT, X-rays, U/S, lab s)? Why? @ -None What meds were considered but not given or refused? Why? @ -None Did you discuss the management of the patient with other professionals (professionals i.e. DrLisa, PA, J2EE APPLICATION DEVELOPER, lab, RT, psych nurse, social science instructor, salvage winder and inspector, teacher, environmental compliance officer, casework manager)? Give summary @ -I spoke with Dell Pike he agreed admit the patient to the patient wrote admitting orders Was smoking cessation discussed for >3mins.? @ -No Was critical care preformed (if so, how long)? @ -No Were there social determinants of health that impacted care today? How? (Homelessness, low income, unemployed, alcoholism, drug addiction, transportation, low edu. Level, literacy, decrease access to med. care, group home, rehab)? @ -No Was there de-escalation of care discussed even if they declined (Discuss DNR or withdrawal of care, Hospice)? DNR status @ -No What co-morbidities impacted this encounter? (DM, HTN, Smoking, COPD, CAD, Cancer, CVA, ARF, Chemo, Hep., AIDS, mental health diagnosis, sleep apnea, morbid obesity)? @ -None Was patient admitted / discharged? Hospital course, mention meds given and route, prescriptions, significant lab abnormalities, going to OR and other pertinent info. @ -Patient was in DKA patient was started on insulin drip given fluid bolus and continued on fluids on the floor. Insulin to be continued on the floor I will write admitting orders and Dr. Pike will admit the patient Undiagnosed new problem with uncertain prognosis? @ -No Drug Therapy requiring intensive monitoring for toxicity (Heparin, Nitro, Insulin, Cardizem)? @ -No Were any procedures done? @ -No Diagnosis/symptom? @ -DKA Acute, or Chronic, or Acute on Chronic? @ -Acute Uncomplicated (without systemic symptoms) or Complicated (systemic symptoms)? @ -Complicated Side effects of treatment? @ -No Exacerbation, Progression, or Severe Exacerbation? @ -No Poses a threat to life or bodily function? How? (Chest pain, USA, OR, pneumonia, PE, COPD, DKA, ARF, appy, cholecystitis, CVA, Diverticulitis, Homicidal, Suicidal, threat to staff... and all critical care pts) @ -Yes this can lead to dehydration and poor perfusion and endorgan dysfunction - Lab Data Result diagrams: 12/27/23 12:39 12/27/23 12:39 Lab Results 12/27/23 12/27/23 12/27/23 Range/Units 12:39 12:39 12:39 WBC 7.0 (3.8-10.6) k/uL RBC 4.35 (3.80-5.40) m/uL Hgb 12.3 D (11.4-16.0) gm/dL Hct 40.4 (34.0-46.0) % MCV 92.7 (80.0-100.0) fL MCH 28.2 (25.0-35.0) pg MCHC 30.4 L (31.0-37.0) g/dL RDW 14.8 (11.5-15.5) % Plt Count 550 H (150-450) k/uL MPV 7.9 Neutrophils % 67 % Lymphocytes % 24 % Monocytes % 3 % Eosinophils % 3 % Basophils % 1 % Neutrophils # 4.7 (1.3-7.7) k/uL Lymphocytes # 1.7 (1.0-4.8) k/uL Monocytes # 0.2 (0-1.0) k/uL Eosinophils # 0.2 (0-0.7) k/uL Basophils # 0.1 (0-0.2) k/uL Hypochromasia Moderate Sodium 130 L (137-145) mmol/L Potassium 5.0 (3.5-5.1) mmol/L Chloride 99 (98-107) mmol/L Carbon Dioxide 20 L (22-30) mmol/L Anion Gap 11 mmol/L BUN 33 H (7-17) mg/dL Creatinine 0.70 (0.52-1.04) mg/dL Est GFR (CKD-EPI)AfAm >90 (>60 ml/min/1.73 sqM) Est GFR (CKD-EPI)NonAf >90 (>60 ml/min/1.73 sqM) Glucose 563 H* (74-99) mg/dL Calcium 9.4 (8.4-10.2) mg/dL Magnesium 2.1 (1.6-2.3) mg/dL Total Bilirubin 0.6 (0.2-1.3) mg/dL AST 37 H (14-36) U/L ALT 36 H (4-34) U/L Alkaline Phosphatase 201 H (38-126) U/L Total Protein 8.5 H (6.3-8.2) g/dL Albumin 3.9 (3.5-5.0) g/dL Urine Color Colorless Urine Appearance Clear (Clear) Urine pH 6.5 (5.0-8.0) Ur Specific [place] 1.021 (1.001-1.035) Urine Protein 2+ H (Negative) Urine Glucose (UA) 4+ H (Negative) Urine Ketones Negative (Negative) Urine Blood Trace H (Negative) Urine Nitrite Negative (Negative) Urine Bilirubin Negative (Negative) Urine Urobilinogen <2.0 (<2.0) mg/dL Ur Leukocyte Esterase Negative (Negative) Urine RBC 6 H (0-5) /hpf Urine WBC 1 (0-5) /hpf Ur Squamous Epith Cells 2 (0-4) /hpf Acetone, Qual Positive (Negative) Disposition Clinical Impression: Diabetic ketoacidosis Disposition: ADMITTED IP TO THIS [facility] Referrals: Dell Pike MD [Primary Care Provider] - 1-2 days Time of Disposition: 13:59
[2023-12-27 12:56] LABS: Basophils # (A) 0.1 k/uL (0-0.2); Basophils % (A) 1 %; Eosinophils # (A) 0.2 k/uL (0-0.7); Eosinophils % (A) 3 %; HCT 40.4 % (34.0-46.0); Hypochromasia Moderate; Lymphocytes # (A) 1.7 k/uL (1.0-4.8); Lymphocytes % (A) 24 %; MCH 28.2 pg (25.0-35.0); MCHC 30.4 g/dL (31.0-37.0); MCV 92.7 fL (80.0-100.0); Mean Platelet Volume 7.9; Monocytes # (A) 0.2 k/uL (0-1.0); Monocytes % (A) 3 %; Neutrophils # (A) 4.7 k/uL (1.3-7.7); Neutrophils % (A) 67 %; Platelet Count 550 k/uL (150-450); RBC 4.35 m/uL (3.80-5.40); RDW 14.8 % (11.5-15.5)
[2023-12-27 13:11] LABS: ALT 36 U/L (4-34); AST 37 U/L (14-36); African American GFR (CKD) >90 (>60 ml/min/1.73 sqM); Albumin 3.9 g/dL (3.5-5.0); Alkaline Phosphatase 201 U/L (38-126); Anion Gap 11 mmol/L; Blood Urea Nitrogen 33 mg/dL (7-17); Calcium 9.4 mg/dL (8.4-10.2); Carbon Dioxide 20 mmol/L (22-30); Chloride 99 mmol/L (98-107); Magnesium 2.1 mg/dL (1.6-2.3); Non-African American GFR(CKD) >90 (>60 ml/min/1.73 sqM); Sodium 130 mmol/L (137-145); Total Bilirubin 0.6 mg/dL (0.2-1.3); Total Protein 8.5 g/dL (6.3-8.2)
[2023-12-27 13:16] LABS: HGB 12.3 gm/dL (11.4-16.0)
[2023-12-27 13:19] LABS: Appearance,Urine Clear (Clear); Bilirubin,Urine Negative (Negative); Blood,Urine Trace (Negative); Color,Urine Colorless; Glucose,Urine (UA) 4+ (Negative); Ketones,Urine Negative (Negative); Leukocyte Esterase,Urine Negative (Negative); Nitrite,Urine Negative (Negative); PH, Urine 6.5 (5.0-8.0); Protein,Urine 2+ (Negative); RBC,Urine 6 /hpf (0-5); Specific Gravity,Urine 1.021 (1.001-1.035); Squamous Epithelial Cell,Urine 2 /hpf (0-4); Urobilinogen,Urine <2.0 mg/dL (<2.0); WBC,Urine 1 /hpf (0-5)
[2023-12-27 13:38] LABS: Glucose 563 mg/dL (74-99)
[2023-12-27] MEDS ORDERED: DEXTROSE 50% SYRINGE 50 ML IVP PRN ×2 (13:51)
[2023-12-27] MEDS ORDERED: Magnesium Replacement Protocol 1 EACH MISC MISCELLANE PRN (13:51)
[2023-12-27] MEDS ORDERED: Potassium Replacement Protocol 1 EACH MISC MISCELLANE PRN (13:51)
[2023-12-27] MEDS: METOCLOPRAMIDE 5 MG/ML 2 ML VIAL IVP STA (14:34)
[2023-12-27] MEDS: SODIUM CHLORIDE 0.9% 1,000 ML IV SCH ×2 (14:41→21:40)
[2023-12-27] MEDS: INSULIN REGULAR 100 UNIT in SODIUM CHLORIDE 0.9% 100 ML IV SCH (14:42)
[2023-12-27] MEDS: INSULIN REGULAR BOLUS (FROM DRIP BAG) IV ONE (14:43)
[2023-12-27 14:45] LABS: VBG PH 7.34 (7.31-7.41)
[2023-12-27 15:48] LABS: Glucose,Whole Blood 327 mg/dL (70-110)
[2023-12-27 16:56] LABS: Glucose,Whole Blood 222 mg/dL (70-110)
[2023-12-27 17:06] LABS: African American GFR (CKD) >90 (>60 ml/min/1.73 sqM); Anion Gap 5 mmol/L; Blood Urea Nitrogen 30 mg/dL (7-17); Carbon Dioxide 19 mmol/L (22-30); Chloride 108 mmol/L (98-107); Glucose 296 mg/dL (74-99); Non-African American GFR(CKD) >90 (>60 ml/min/1.73 sqM); Phosphorus 3.2 mg/dL (2.5-4.5); Sodium 132 mmol/L (137-145)
[2023-12-27] MEDS: HYDROcodone/APAP 7.5-325MG 1 EACH TAB PO ONE (17:38)
[2023-12-27] MEDS: D5-0.45% NACL WITH KCL 20MEQ/L 1,000 ML IV SCH (17:40)
[2023-12-27 18:01] LABS: Glucose,Whole Blood 165 mg/dL (70-110)
[2023-12-27 18:50] LABS: Glucose,Whole Blood 132 mg/dL (70-110)
[2023-12-27] MEDS ORDERED: IPRATROPIUM-ALBUTEROL 3 ML NEB INHALATION PRN (19:43)
[2023-12-27 20:23] LABS: Glucose,Whole Blood 91 mg/dL (70-110)
[2023-12-27] MEDS: HYDROmorphone 1 MG/ML 1 ML SYRINGE IVP PRN (20:24)
[2023-12-27 21:15] LABS: African American GFR (CKD) >90 (>60 ml/min/1.73 sqM); Anion Gap 6 mmol/L; Blood Urea Nitrogen 27 mg/dL (7-17); Carbon Dioxide 18 mmol/L (22-30); Chloride 109 mmol/L (98-107); Glucose 93 mg/dL (74-99); Non-African American GFR(CKD) >90 (>60 ml/min/1.73 sqM); Phosphorus 3.5 mg/dL (2.5-4.5); Potassium 4.7 mmol/L (3.5-5.1); Sodium 133 mmol/L (137-145)
[2023-12-27 21:39] LABS: Glucose,Whole Blood 112 mg/dL (70-110)
--- NOTE | 2023-12-27 22:24 | HP ---
HISTORY AND PHYSICAL HISTORY OF PRESENT ILLNESS: This 53-year-old white female came to the emergency room with gastroparesis, vomiting. Sugars have been extremely high. She is getting her PEG tube feedings. She gets headache, progressive vomiting. She has had recent septic for left cellulitis of the arm as well as severe UTI. MEDICINES: 1. Xanax 0.25 b.i.d. 2. Lipitor 20 daily. 3. Cymbalta 30 daily. 4. Insulin lispro 2 units a.c. t.i.d. 5. DuoNeb nebulizer q.i.d. 6. Remeron 30 daily. 7. Folic acid 1 mg daily. 8. [place] 7.5 t.i.d. 9. Ferrous sulfate 325 daily. 10.Lantus 40 units subcu daily. 11.Scopolamine patch every 72 hours. 12.Potassium 20 mEq daily. ALLERGIES: Fentanyl. REVIEW OF SYSTEMS: A 14-point review of systems as mentioned above. PAST MEDICAL HISTORY: Diabetes mellitus, hypertension, musculoskeletal disorder, ESBL, MRSA. SURGICAL HISTORY: Cholecystectomy, orthopedic surgery, tubal ligation. Right shoulder J-tube placement. SOCIAL HISTORY: Current everyday smoker. FAMILY HISTORY: Father unknown. Mother unknown. PHYSICAL EXAMINATION: VITAL SIGNS: Stable, afebrile. CARDIOVASCULAR: S1, S2. LUNGS: Scattered rhonchi and wheeze. HEMATOLOGY: Negative for Hom[place]. GI: Soft, nontender. PEG tube in place. NEUROLOGIC: Cranial nerves intact. PSYCH: Fair mood and affect. INTEGUMENT: Dry skin turgor, dry mucous membranes. VITAL SIGNS: Temperature 98, pulse rate 110, respiratory rate 16 to 18, blood pressure 108/72, O2 99. IMAGING: EKG, sinus tachycardia. LABORATORY DATA: Sodium 130, potassium 5.0, hemoglobin is 12.3, BUN is 33, creatinine 0.7. UA shows sugars in 500s. AST, ALT, alkaline phosphatase high, diabetic ketoacidosis, progressive gastroparesis, nausea, vomiting, dehydration, uncontrolled diabetes mellitus, DKA, which is quickly improved. Continue to rehydrate. Give her breathing treatments, have her wear oxygen at night. Prognosis guarded. Please see further orders. Check for sepsis for prior infections. MMODL / IJN: [id number] /
[2023-12-27] MEDS: SCOPOLAMINE 1 MG/72 HR PATCH TRANSDERM SCH (22:39)
[2023-12-27] MEDS: HYDROcodone/APAP 7.5-325MG 1 EACH TAB PO PRN (23:02)
[2023-12-27] MEDS: METOCLOPRAMIDE 5 MG/ML 2 ML VIAL IVP SCH (23:12)
[2023-12-27] MEDS: ONDANSETRON 4 MG/2 ML VIAL IVP PRN (23:12)
[2023-12-28 01:58] LABS: Glucose,Whole Blood 300 mg/dL (70-110)
[2023-12-28] MEDS: METOCLOPRAMIDE 10 MG TAB PO SCH (06:02)
[2023-12-28] MEDS: PANTOPRAZOLE 40 MG TABLET PO SCH (06:02)
[2023-12-28 07:01] LABS: Glucose,Whole Blood 291 mg/dL (70-110)
[2023-12-28 07:18] LABS: ALT 23 U/L (4-34); AST 29 U/L (14-36); African American GFR (CKD) >90 (>60 ml/min/1.73 sqM); Albumin 2.5 g/dL (3.5-5.0); Alkaline Phosphatase 106 U/L (38-126); Anion Gap 3 mmol/L; Basophils # (A) 0.1 k/uL (0-0.2); Basophils % (A) 1 %; Blood Urea Nitrogen 23 mg/dL (7-17); Calcium 7.9 mg/dL (8.4-10.2); Carbon Dioxide 19 mmol/L (22-30); Chloride 112 mmol/L (98-107); Eosinophils # (A) 0.3 k/uL (0-0.7); Eosinophils % (A) 5 %; Glucose 301 mg/dL (74-99); HCT 31.3 % (34.0-46.0); Hypochromasia Marked; Lymphocytes # (A) 1.2 k/uL (1.0-4.8); Lymphocytes % (A) 17 %; MCH 27.4 pg (25.0-35.0); MCHC 29.7 g/dL (31.0-37.0); MCV 92.6 fL (80.0-100.0); Mean Platelet Volume 8.3; Monocytes # (A) 0.4 k/uL (0-1.0); Monocytes % (A) 6 %; Neutrophils # (A) 5.1 k/uL (1.3-7.7); Neutrophils % (A) 69 %; Non-African American GFR(CKD) >90 (>60 ml/min/1.73 sqM); Platelet Count 401 k/uL (150-450); Potassium 4.5 mmol/L (3.5-5.1); RBC 3.38 m/uL (3.80-5.40); RDW 15.5 % (11.5-15.5); Sodium 134 mmol/L (137-145); Total Bilirubin 0.1 mg/dL (0.2-1.3); Total Protein 5.7 g/dL (6.3-8.2); WBC 7.3 k/uL (3.8-10.6)
[2023-12-28 07:23] LABS: HGB 9.3 gm/dL (11.4-16.0)
[2023-12-28] MEDS: INSULIN DETEMIR (LEVEMIR) 100 UNIT/ML SYR SQ SCH (07:26)
[2023-12-28] MEDS: INSULIN ASPART (NovoLOG) 100 UNIT/ML VIAL SQ SCH (07:26)
[2023-12-28] MEDS: FERROUS SULFATE 325 MG TAB PO SCH (07:26)
[2023-12-28] MEDS: FOLIC ACID 1 MG TAB PO SCH (07:26)
[2023-12-28] MEDS: POTASSIUM BICARBONATE/CIT AC 20 MEQ TABLET.EFF PO SCH (07:26)
[2023-12-28] MEDS: ATORVASTATIN 20 MG TAB PO SCH (07:26)
[2023-12-28] MEDS: amLODIPine 5 MG TAB PO SCH (07:26)
[2023-12-28] MEDS: DULoxetine HCL 30 MG CAPSULE.DR PO SCH (07:27)
[2023-12-28] MEDS: METOCLOPRAMIDE 5 MG/ML 2 ML VIAL IVP PRN (08:16)
[2023-12-28] MEDS: IPRATROPIUM-ALBUTEROL 3 ML NEB INHALATION SCH (09:17)
[2023-12-28 11:46] LABS: Glucose,Whole Blood 139 mg/dL (70-110)
[2023-12-28] MEDS ORDERED: VANCOMYCIN IV PER PHARMACY 1 EACH MISC MISCELLANE PRN (14:48)
[2023-12-28 16:33] LABS: Glucose,Whole Blood 126 mg/dL (70-110)
[2023-12-28] MEDS: VANCOMYCIN 750 MG in SODIUM CHLORIDE 0.9% 250 ML IVPB SCH (16:35)
[2023-12-28] MEDS: MIRTAZAPINE 15 MG TAB PO SCH (20:04)
[2023-12-28 21:31] LABS: Glucose,Whole Blood 121 mg/dL (70-110)
--- NOTE | 2023-12-28 22:36 | P.CONS ---
History of Present Illness - Reason for Consult Consult date: 12/28/23 UTI, cellulitis hand Requesting physician: Dell Pike - Chief Complaint Nausea and vomiting x 1 day - History of Present Illness Patient is a 53-year-old female with a past medical history significant for diabetes mellitus hypertension diabetic gastroparesis requiring a PEG tube placement recent admission to the hospital with left wrist cellulitis after an IV went bad patient did have aspiration by orthopedics and a culture positive for MRSA patient was treated with IV vancomycin blood culture negative subsequently discharged home on oral doxycycline with the patient mention she was taking patient presented to [facility] ER yesterday afternoon concerning for vomiting unable to keep anything down and mention the blood sugar has been running pretty high patient denies any fever or any chills has been complaining of some swelling redness to the left wrist and hand area but did not have any open wound or any drainage pain is mostly dull aching mild in intensity without radiation. Denies any abdominal pain did not have any diarrhea and no urinary symptoms of burning or frequency on presentation to the hospital patient was afebrile and no fever have been recorded subsequently patient was not tachycardic hypotensive or hypoxic did have a white count of 7 point 0 repeat is 7.3 creatinine 0.61 liver isms are mild elevated initially repeat are normal urine has been negative serum acetone was positive patient has been admitted to hospital infectious disease was consulted concerning for left wrist and hand area cellulitis and UTI Review of Systems Positive point and negatives has been mentioned in the HPI, complete review of systems was performed and all other systems are negative 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 MDRO Source:: Urine VRE and ESBL, MRSA-ABD Past Surgical History: Cholecystectomy, Orthopedic Surgery, Tubal Ligation Additional Past Surgical History / Comment(s): rt shoulder, J tube placement Past Anesthesia/Blood Transfusion Reactions: No Reported Reaction Additional Past Anesthesia/Blood Transfusion Reaction / Comm: UNK FAMILY HX Past Psychological History: Anxiety Smoking Status: Current every day smoker Past Alcohol Use History: None Reported Additional Past Alcohol Use History / Comment(s): STARTED SMOKING 1987, smokes about 6 cigs/day Past Drug Use History: None Reported Additional Drug Use History / Comment(s): Patient denies using marijuana. - Past Family History Father History Unknown: Yes Additional Family Medical History / Comment(s): unknown-adopted Mother History Unknown: Yes Additional Family Medical History / Comment(s): unknown- adopted Medications and Allergies Home Medications Medication Instructions Recorded Confirmed Type ALPRAZolam [Xanax] 0.25 mg PO BID PRN 05/12/23 12/27/23 History Atorvastatin [Lipitor] 20 mg PO DAILY 05/12/23 12/27/23 History DULoxetine HCL [Cymbalta] 30 mg PO DAILY 05/12/23 12/27/23 History Insulin Lispro [humaLOG Kwikpen] 2 unit SQ AC-TID 05/12/23 12/27/23 History Ipratropium-Albuterol Nebulize 3 ml INHALATION RT-BID 05/12/23 12/27/23 History [Duoneb 0.5 mg-3 mg/3 ml Soln] Mirtazapine [Remeron] 30 mg PO HS 05/12/23 12/27/23 History Metoclopramide [Reglan] 10 mg PO ACHS 30 Days #120 tab 05/15/23 12/27/23 Rx Pantoprazole [Protonix] 40 mg PO AC-BID 30 Days #60 tab 05/21/23 12/27/23 Rx Folic Acid 1 mg PO DAILY 06/15/23 12/27/23 History Ondansetron [Zofran] 4 mg PO DAILY 30 Days #30 tab 06/26/23 12/27/23 Rx HYDROcodone/APAP 7.5-325MG [[place] 1 tab PO TID PRN 08/25/23 12/27/23 History 7.5-325] Acetaminophen Tab [Tylenol] 650 mg PO Q6HR PRN tab 10/16/23 12/27/23 Rx Loperamide [Imodium] 2 mg PO QID PRN cap 10/16/23 12/27/23 Rx Prochlorperazine Maleate 10 mg PO AC-BID 30 Days #60 tab 10/30/23 12/27/23 Rx Ferrous Sulfate [Iron (65 MG 325 mg PO DAILY 12/09/23 12/27/23 History Elemental)] Insulin Glargine [Lantus Vial] 4 unit SQ DAILY 12/09/23 12/27/23 History Potassium Bicarb-Citric Acid 20 meq PO DAILY 12/09/23 12/27/23 History (Effer-K) 20meq Tab Scopolamine [Scopolamine 1 MG/72 1 patch TRANSDERM Q72H 12/09/23 12/27/23 History HR patch] Doxycycline [Vibramycin] 100 mg PO BID 30 Days #60 cap 12/19/23 12/27/23 Rx amLODIPine [Norvasc] 5 mg PO DAILY 90 Days #90 tab 12/19/23 12/27/23 Rx Allergies Allergy/AdvReac Type Severity Reaction Status Date / Time fentanyl Allergy Unknown Verified 12/27/23 14:18 Physical Exam Vitals: Vital Signs Temp Pulse Pulse Resp BP BP Pulse Ox 12/28/23 11:26 97.7 F 112 H 16 176/99 98 12/28/23 09:28 97 12/28/23 09:17 99 12/28/23 07:42 98.5 F 106 H 16 153/90 97 12/28/23 03:12 97.9 F 107 H 14 98/62 95 12/27/23 22:50 97.5 F L 96 18 94/59 99 12/27/23 22:15 97.3 F L 96 18 117/75 94 L 12/27/23 20:29 100 14 128/77 94 L 12/27/23 18:27 97.8 F 101 H 16 150/89 99 12/27/23 15:52 97.9 F 101 H 16 137/78 100 Intake and Output 12/27/23 12/28/23 12/28/23 22:59 06:59 14:59 Intake Total 402.703 2024 Output Total 700 Balance 589.393 5243 Intake: IV 10 Invasive Line 2 10 Intake, IV Titration 16.162 1200 Amount Insulin Regular 100 unit 16.162 In Sodium Chloride 0.9% 100 ml @ 0.1 UNITS/KG/HR 3.848 mls/hr IV .Q24H [facility] Rx#:[id number] Sodium Chloride 0.9% 1, 1200 000 ml @ 100 mls/hr IV . Q10H [facility] Rx#:[id number] Oral 240 600 Output: Urine 500 Emesis 200 Other: Voiding Method Toilet # Voids 3 1 Weight 38.102 kg 36 kg 41 kg GENERAL DESCRIPTION: Middle-aged female lying in bed, no distress. No tachypnea or accessory muscle of respiration use. HEENT: Shows Pallor , no scleral icterus. Oral mucous membrane is dry. NECK: Trachea central, no thyromegaly. LUNGS: Unlabored breathing. Clear to auscultation anteriorly. No wheeze or crackle. HEART: S1, S2, regular rate and rhythm. No loud murmur ABDOMEN: Soft, no tenderness , guarding or rigidity, no organomegaly EXTREMITIES: Left wrist hand did have some erythema no fluctuation no drainage SKIN: No rash, no masses palpable. NEUROLOGICAL: The patient is awake, alert, oriented x3, mood and affect normal. Results CBC & Chem 7: 12/28/23 06:22 12/28/23 06:22 Labs: Abnormal Lab Results - Last 24 Hours (Table) 12/27/23 12/27/23 12/27/23 Range/Units 12:39 12:39 12:39 RBC (3.80-5.40) m/uL Hgb (11.4-16.0) gm/dL Hct (34.0-46.0) % MCHC 30.4 L (31.0-37.0) g/dL Plt Count 550 H (150-450) k/uL VBG HCO3 (24-28) mmol/L Sodium 130 L (137-145) mmol/L Chloride (98-107) mmol/L Carbon Dioxide 20 L (22-30) mmol/L BUN 33 H (7-17) mg/dL Glucose 563 H* (74-99) mg/dL POC Glucose (mg/dL) (70-110) mg/dL Calcium (8.4-10.2) mg/dL Total Bilirubin (0.2-1.3) mg/dL AST 37 H (14-36) U/L ALT 36 H (4-34) U/L Alkaline Phosphatase 201 H (38-126) U/L Total Protein 8.5 H (6.3-8.2) g/dL Albumin (3.5-5.0) g/dL Procalcitonin (0.02-0.09) ng/mL Urine Protein 2+ H (Negative) Urine Glucose (UA) 4+ H (Negative) Urine Blood Trace H (Negative) Urine RBC 6 H (0-5) /hpf 12/27/23 12/27/23 12/27/23 Range/Units 14:25 15:46 16:14 RBC (3.80-5.40) m/uL Hgb (11.4-16.0) gm/dL Hct (34.0-46.0) % MCHC (31.0-37.0) g/dL Plt Count (150-450) k/uL VBG HCO3 23 L (24-28) mmol/L Sodium 132 L (137-145) mmol/L Chloride 108 H (98-107) mmol/L Carbon Dioxide 19 L (22-30) mmol/L BUN 30 H (7-17) mg/dL Glucose 296 H (74-99) mg/dL POC Glucose (mg/dL) 327 H (70-110) mg/dL Calcium (8.4-10.2) mg/dL Total Bilirubin (0.2-1.3) mg/dL AST (14-36) U/L ALT (4-34) U/L Alkaline Phosphatase (38-126) U/L Total Protein (6.3-8.2) g/dL Albumin (3.5-5.0) g/dL Procalcitonin (0.02-0.09) ng/mL Urine Protein (Negative) Urine Glucose (UA) (Negative) Urine Blood (Negative) Urine RBC (0-5) /hpf 12/27/23 12/27/23 12/27/23 Range/Units 16:54 17:59 18:47 RBC (3.80-5.40) m/uL Hgb (11.4-16.0) gm/dL Hct (34.0-46.0) % MCHC (31.0-37.0) g/dL Plt Count (150-450) k/uL VBG HCO3 (24-28) mmol/L Sodium (137-145) mmol/L Chloride (98-107) mmol/L Carbon Dioxide (22-30) mmol/L BUN (7-17) mg/dL Glucose (74-99) mg/dL POC Glucose (mg/dL) 222 H 165 H 132 H (70-110) mg/dL Calcium (8.4-10.2) mg/dL Total Bilirubin (0.2-1.3) mg/dL AST (14-36) U/L ALT (4-34) U/L Alkaline Phosphatase (38-126) U/L Total Protein (6.3-8.2) g/dL Albumin (3.5-5.0) g/dL Procalcitonin (0.02-0.09) ng/mL Urine Protein (Negative) Urine Glucose (UA) (Negative) Urine Blood (Negative) Urine RBC (0-5) /hpf 12/27/23 12/27/23 12/27/23 Range/Units 20:34 20:34 21:37 RBC (3.80-5.40) m/uL Hgb (11.4-16.0) gm/dL Hct (34.0-46.0) % MCHC (31.0-37.0) g/dL Plt Count (150-450) k/uL VBG HCO3 (24-28) mmol/L Sodium 133 L (137-145) mmol/L Chloride 109 H (98-107) mmol/L Carbon Dioxide 18 L (22-30) mmol/L BUN 27 H (7-17) mg/dL Glucose (74-99) mg/dL POC Glucose (mg/dL) 112 H (70-110) mg/dL Calcium (8.4-10.2) mg/dL Total Bilirubin (0.2-1.3) mg/dL AST (14-36) U/L ALT (4-34) U/L Alkaline Phosphatase (38-126) U/L Total Protein (6.3-8.2) g/dL Albumin (3.5-5.0) g/dL Procalcitonin 0.15 H (0.02-0.09) ng/mL Urine Protein (Negative) Urine Glucose (UA) (Negative) Urine Blood (Negative) Urine RBC (0-5) /hpf 12/28/23 12/28/23 12/28/23 Range/Units 01:57 06:22 06:22 RBC 3.38 L (3.80-5.40) m/uL Hgb 9.3 L D (11.4-16.0) gm/dL Hct 31.3 L (34.0-46.0) % MCHC 29.7 L (31.0-37.0) g/dL Plt Count (150-450) k/uL VBG HCO3 (24-28) mmol/L Sodium 134 L (137-145) mmol/L Chloride 112 H (98-107) mmol/L Carbon Dioxide 19 L (22-30) mmol/L BUN 23 H (7-17) mg/dL Glucose 301 H (74-99) mg/dL POC Glucose (mg/dL) 300 H (70-110) mg/dL Calcium 7.9 L (8.4-10.2) mg/dL Total Bilirubin 0.1 L (0.2-1.3) mg/dL AST (14-36) U/L ALT (4-34) U/L Alkaline Phosphatase (38-126) U/L Total Protein 5.7 L (6.3-8.2) g/dL Albumin 2.5 L (3.5-5.0) g/dL Procalcitonin (0.02-0.09) ng/mL Urine Protein (Negative) Urine Glucose (UA) (Negative) Urine Blood (Negative) Urine RBC (0-5) /hpf 12/28/23 12/28/23 Range/Units 06:59 11:44 RBC (3.80-5.40) m/uL Hgb (11.4-16.0) gm/dL Hct (34.0-46.0) % MCHC (31.0-37.0) g/dL Plt Count (150-450) k/uL VBG HCO3 (24-28) mmol/L Sodium (137-145) mmol/L Chloride (98-107) mmol/L Carbon Dioxide (22-30) mmol/L BUN (7-17) mg/dL Glucose (74-99) mg/dL POC Glucose (mg/dL) 291 H 139 H (70-110) mg/dL Calcium (8.4-10.2) mg/dL Total Bilirubin (0.2-1.3) mg/dL AST (14-36) U/L ALT (4-34) U/L Alkaline Phosphatase (38-126) U/L Total Protein (6.3-8.2) g/dL Albumin (3.5-5.0) g/dL Procalcitonin (0.02-0.09) ng/mL Urine Protein (Negative) Urine Glucose (UA) (Negative) Urine Blood (Negative) Urine RBC (0-5) /hpf Assessment and Plan (1) Cellulitis of left wrist Current Visit: No Status: Acute Code(s): L03.114 - CELLULITIS OF LEFT UPPER LIMB SNOMED Code(s): 66953924790689149 Plan: 1patient with a left wrist and hand dorsum area swelling minimal redness in this patient who was recently diagnosed with the cellulitis to the area from MRSA concerning for possible residual cellulitis likely from the same pathogen 2-we will start the patient on vancomycin pharmacy to dose while watching her kidney function closely and see clinical response 3-patient did not have any urine sample and urine is negative clinically doubt UTI We will follow on clinical condition and cultures to further adjust medication if needed Thank you for this consultation we will follow the patient along with you Dictation was produced using [employer] dictation software. please excuse any gramm atical, word or spelling errors. Time with Patient: Greater than 30
[2023-12-29 02:08] LABS: Glucose,Whole Blood 185 mg/dL (70-110)
[2023-12-29 04:16] LABS: African American GFR (CKD) >90 (>60 ml/min/1.73 sqM); Non-African American GFR(CKD) >90 (>60 ml/min/1.73 sqM)
[2023-12-29 06:20] LABS: Glucose,Whole Blood 294 mg/dL (70-110)
[2023-12-29 11:48] LABS: Glucose,Whole Blood 409 mg/dL (70-110)
[2023-12-29 11:48] LABS: Glucose,Whole Blood 408 mg/dL (70-110)
[2023-12-29] MEDS ORDERED: DEXTROSE 50% SYRINGE 50 ML IVP PRN ×2 (11:52)
--- NOTE | 2023-12-29 12:34 | P.CNPUL ---
History of Present Illness Consult date: 12/28/23 Reason for consult: dyspnea, cough, COPD Chief complaint: vomiting, shortness of breath associated History of present illness: 53-year-old female seen evaluated examined with long-standing history of gastroparesis and vomiting due to very brittle diabetes mellitus, patient has been having vomiting and nausea, with that patient has been short of breath, however currently on specific questioning denies any cough or sputum but denies any chest pain shortness breath is improved as nausea and vomiting better under control, no diarrhea fever or chills or cough Past medical history is for brittle diabetes, dyslipidemia, major depression,chronic pain syndrome, Review of Systems All systems: negative Past Medical History Past Medical History: Diabetes Mellitus, Hypertension, Musculoskeletal Disorder Additional Past Medical History / Comment(s): FREQ NAUSEA, PAINFUL RT SHOULDER "FROZEN SHOULDER", NEUROPATHY PORFIRIO LEGS and hands, Blood pressures can run high History of Any Multi-Drug Resistant Organisms: ESBL, MRSA, VRE Date of last positivie culture/infection: 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;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 MDRO Source:: Urine VRE and ESBL, MRSA-ABD Past Surgical History: Cholecystectomy, Orthopedic Surgery, Tubal Ligation Additional Past Surgical History / Comment(s): rt shoulder, J tube placement Past Anesthesia/Blood Transfusion Reactions: No Reported Reaction Additional Past Anesthesia/Blood Transfusion Reaction / Comment(s): UNK FAMILY HX Past Psychological History: Anxiety Smoking Status: Current every day smoker Past Alcohol Use History: None Reported Additional Past Alcohol Use History / Comment(s): STARTED SMOKING 1987, smokes a bout 6 cigs/day Past Drug Use History: None Reported Additional Drug Use History / Comment(s): Patient denies using marijuana. - Past Family History Father History Unknown: Yes Additional Family Medical History / Comment(s): unknown-adopted Mother History Unknown: Yes Additional Family Medical History / Comment(s): unknown- adopted Medications and Allergies Home Medications Medication Instructions Recorded Confirmed Type ALPRAZolam [Xanax] 0.25 mg PO BID PRN 05/12/23 12/27/23 History Atorvastatin [Lipitor] 20 mg PO DAILY 05/12/23 12/27/23 History DULoxetine HCL [Cymbalta] 30 mg PO DAILY 05/12/23 12/27/23 History Insulin Lispro [humaLOG Kwikpen] 2 unit SQ AC-TID 05/12/23 12/27/23 History Ipratropium-Albuterol Nebulize 3 ml INHALATION RT-BID 05/12/23 12/27/23 History [Duoneb 0.5 mg-3 mg/3 ml Soln] Mirtazapine [Remeron] 30 mg PO HS 05/12/23 12/27/23 History Metoclopramide [Reglan] 10 mg PO ACHS 30 Days #120 tab 05/15/23 12/27/23 Rx Pantoprazole [Protonix] 40 mg PO AC-BID 30 Days #60 tab 05/21/23 12/27/23 Rx Folic Acid 1 mg PO DAILY 06/15/23 12/27/23 History Ondansetron [Zofran] 4 mg PO DAILY 30 Days #30 tab 06/26/23 12/27/23 Rx HYDROcodone/APAP 7.5-325MG [[place] 1 tab PO TID PRN 08/25/23 12/27/23 History 7.5-325] Acetaminophen Tab [Tylenol] 650 mg PO Q6HR PRN tab 10/16/23 12/27/23 Rx Loperamide [Imodium] 2 mg PO QID PRN cap 10/16/23 12/27/23 Rx Prochlorperazine Maleate 10 mg PO AC-BID 30 Days #60 tab 10/30/23 12/27/23 Rx Ferrous Sulfate [Iron (65 MG 325 mg PO DAILY 12/09/23 12/27/23 History Elemental)] Insulin Glargine [Lantus Vial] 4 unit SQ DAILY 12/09/23 12/27/23 History Potassium Bicarb-Citric Acid 20 meq PO DAILY 12/09/23 12/27/23 History (Effer-K) 20meq Tab Scopolamine [Scopolamine 1 MG/72 1 patch TRANSDERM Q72H 12/09/23 12/27/23 History HR patch] Doxycycline [Vibramycin] 100 mg PO BID 30 Days #60 cap 12/19/23 12/27/23 Rx amLODIPine [Norvasc] 5 mg PO DAILY 90 Days #90 tab 12/19/23 12/27/23 Rx Allergies Allergy/AdvReac Type Severity Reaction Status Date / Time fentanyl Allergy Unknown Verified 07/12/24 14:18 Physical Exam Vitals: Vital Signs Temp Pulse Pulse Resp BP BP Pulse Ox 12/28/23 09:28 97 12/28/23 09:17 99 12/28/23 07:42 98.5 F 106 H 16 153/90 97 12/28/23 03:12 97.9 F 107 H 14 98/62 95 12/27/23 22:50 97.5 F L 96 18 94/59 99 12/27/23 22:15 97.3 F L 96 18 117/75 94 L 12/27/23 20:29 100 14 128/77 94 L 12/27/23 18:27 97.8 F 101 H 16 150/89 99 12/27/23 15:52 97.9 F 101 H 16 137/78 100 12/27/23 12:10 98.0 F 110 H 17 103/72 99 Intake and Output 12/27/23 12/28/23 12/28/23 22:59 06:59 14:59 Intake Total 774.847 1963 Output Total 700 Balance 256.162 990 Intake: IV 10 Invasive Line 2 10 Intake, IV Titration 16.162 1200 Amount Insulin Regular 100 unit 16.162 In Sodium Chloride 0.9% 100 ml @ 0.1 UNITS/KG/HR 3.848 mls/hr IV .Q24H [facility] Rx#:[id number] Sodium Chloride 0.9% 1, 1200 000 ml @ 100 mls/hr IV . Q10H [facility] Rx#:[id number] Oral 240 480 Output: Urine 500 Emesis 200 Other: Voiding Method Toilet # Voids 3 1 Weight 38.102 kg 36 kg - Constitutional General appearance: average body habitus, mild distress - EENT Eyes: EOMI, PERRLA ENT: normal oropharynx Ears: bilateral: normal - Neck Carotids: bilateral: upstroke normal Thyroid: bilateral: normal size - Respiratory Respiratory: bilateral: wheezing - Cardiovascular Rhythm: regular Heart sounds: normal: S1, S2 - Gastrointestinal General gastrointestinal: normal bowel sounds, soft - Integumentary Integumentary: normal - Neurologic Neurologic: CNII-XII intact - Musculoskeletal Musculoskeletal: gait normal, strength equal bilaterally - Psychiatric Psychiatric: A&O x's 3, appropriate affect, intact judgment & insight Results - Laboratory Findings CBC and BMP: 12/28/23 06:22 12/29/23 03:25 Abnormal lab findings: Abnormal Labs 12/27/23 12/27/23 12/27/23 12:39 12:39 12:39 RBC Hgb Hct MCHC 30.4 L Plt Count 550 H VBG HCO3 Sodium 130 L Chloride Carbon Dioxide 20 L BUN 33 H Glucose 563 H* POC Glucose (mg/dL) Calcium Total Bilirubin AST 37 H ALT 36 H Alkaline Phosphatase 201 H Total Protein 8.5 H Albumin Procalcitonin Urine Protein 2+ H Urine Glucose (UA) 4+ H Urine Blood Trace H Urine RBC 6 H 12/27/23 12/27/23 12/27/23 14:25 15:46 16:14 RBC Hgb Hct MCHC Plt Count VBG HCO3 23 L Sodium 132 L Chloride 108 H Carbon Dioxide 19 L BUN 30 H Glucose 296 H POC Glucose (mg/dL) 327 H Calcium Total Bilirubin AST ALT Alkaline Phosphatase Total Protein Albumin Procalcitonin Urine Protein Urine Glucose (UA) Urine Blood Urine RBC 12/27/23 12/27/23 12/27/23 16:54 17:59 18:47 RBC Hgb Hct MCHC Plt Count VBG HCO3 Sodium Chloride Carbon Dioxide BUN Glucose POC Glucose (mg/dL) 222 H 165 H 132 H Calcium Total Bilirubin AST ALT Alkaline Phosphatase Total Protein Albumin Procalcitonin Urine Protein Urine Glucose (UA) Urine Blood Urine RBC 12/27/23 12/27/23 12/27/23 20:34 20:34 21:37 RBC Hgb Hct MCHC Plt Count VBG HCO3 Sodium 133 L Chloride 109 H Carbon Dioxide 18 L BUN 27 H Glucose POC Glucose (mg/dL) 112 H Calcium Total Bilirubin AST ALT Alkaline Phosphatase Total Protein Albumin Procalcitonin 0.15 H Urine Protein Urine Glucose (UA) Urine Blood Urine RBC 12/28/23 12/28/23 12/28/23 01:57 06:22 06:22 RBC 3.38 L Hgb 9.3 L D Hct 31.3 L MCHC 29.7 L Plt Count VBG HCO3 Sodium 134 L Chloride 112 H Carbon Dioxide 19 L BUN 23 H Glucose 301 H POC Glucose (mg/dL) 300 H Calcium 7.9 L Total Bilirubin 0.1 L AST ALT Alkaline Phosphatase Total Protein 5.7 L Albumin 2.5 L Procalcitonin Urine Protein Urine Glucose (UA) Urine Blood Urine RBC 12/28/23 06:59 RBC Hgb Hct MCHC Plt Count VBG HCO3 Sodium Chloride Carbon Dioxide BUN Glucose POC Glucose (mg/dL) 291 H Calcium Total Bilirubin AST ALT Alkaline Phosphatase Total Protein Albumin Procalcitonin Urine Protein Urine Glucose (UA) Urine Blood Urine RBC Assessment and Plan Assessment: shortness of breath, associated with nausea and vomiting much better now Baseline COPD 2. Evaluated further outpatient setting intractable nausea vomiting, continue Zofran Hypertension hypertensive cardiovascular disease, continue Aldactone Status post PEG tube placement tolerating tube feed well Left wrist cellulitis with culture positive for MRSA on IV vancomycin and doxycycline Plan: as above Time with Patient: Greater than 30
--- NOTE | 2023-12-29 12:35 | P.GSCN ---
History of Present Illness Consult date: 12/29/23 Reason for Consult: Intractable vomiting History of present illness: Patient readmitted for intractable vomiting. History of known gastroparesis. Has history of J-tube. Apparently was post to go to [facility] for gastric pump placement. Review of Systems The patient denies any acute changes in vision or hearing, no dysphagia or odynophagia, no chest pain or shortness of breath, no dysuria or hematuria, no headache, no runny nose, no rectal bleeding or melena, no unexplained weight loss 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 MDRO Source:: Urine VRE and ESBL, MRSA-ABD Past Surgical History: Cholecystectomy, Orthopedic Surgery, Tubal Ligation Additional Past Surgical History / Comment(s): rt shoulder, J tube placement Past Anesthesia/Blood Transfusion Reactions: No Reported Reaction Additional Past Anesthesia/Blood Transfusion Reaction / Comm: UNK FAMILY HX Past Psychological History: Anxiety Smoking Status: Current every day smoker Past Alcohol Use History: None Reported Additional Past Alcohol Use History / Comment(s): STARTED SMOKING 1987, smokes about 6 cigs/day Past Drug Use History: None Reported Additional Drug Use History / Comment(s): Patient denies using marijuana. - Past Family History Father History Unknown: Yes Additional Family Medical History / Comment(s): unknown-adopted Mother History Unknown: Yes Additional Family Medical History / Comment(s): unknown- adopted Medications and Allergies Home Medications Medication Instructions Recorded Confirmed Type ALPRAZolam [Xanax] 0.25 mg PO BID PRN 05/12/23 12/27/23 History Atorvastatin [Lipitor] 20 mg PO DAILY 05/12/23 12/27/23 History DULoxetine HCL [Cymbalta] 30 mg PO DAILY 05/12/23 12/27/23 History Insulin Lispro [humaLOG Kwikpen] 2 unit SQ AC-TID 05/12/23 12/27/23 History Ipratropium-Albuterol Nebulize 3 ml INHALATION RT-BID 05/12/23 12/27/23 History [Duoneb 0.5 mg-3 mg/3 ml Soln] Mirtazapine [Remeron] 30 mg PO HS 05/12/23 12/27/23 History Metoclopramide [Reglan] 10 mg PO ACHS 30 Days #120 tab 05/15/23 12/27/23 Rx Pantoprazole [Protonix] 40 mg PO AC-BID 30 Days #60 tab 05/21/23 12/27/23 Rx Folic Acid 1 mg PO DAILY 06/15/23 12/27/23 History Ondansetron [Zofran] 4 mg PO DAILY 30 Days #30 tab 06/26/23 12/27/23 Rx HYDROcodone/APAP 7.5-325MG [Sunshine 1 tab PO TID PRN 08/25/23 12/27/23 History 7.5-325] Acetaminophen Tab [Tylenol] 650 mg PO Q6HR PRN tab 10/16/23 12/27/23 Rx Loperamide [Imodium] 2 mg PO QID PRN cap 10/16/23 12/27/23 Rx Prochlorperazine Maleate 10 mg PO AC-BID 30 Days #60 tab 10/30/23 12/27/23 Rx Ferrous Sulfate [Iron (65 MG 325 mg PO DAILY 12/09/23 12/27/23 History Elemental)] Insulin Glargine [Lantus Vial] 4 unit SQ DAILY 12/09/23 12/27/23 History Potassium Bicarb-Citric Acid 20 meq PO DAILY 12/09/23 12/27/23 History (Effer-K) 20meq Tab Scopolamine [Scopolamine 1 MG/72 1 patch TRANSDERM Q72H 12/09/23 12/27/23 History HR patch] Doxycycline [Vibramycin] 100 mg PO BID 30 Days #60 cap 12/19/23 12/27/23 Rx amLODIPine [Norvasc] 5 mg PO DAILY 90 Days #90 tab 12/19/23 12/27/23 Rx Allergies Allergy/AdvReac Type Severity Reaction Status Date / Time fentanyl Allergy Unknown Verified 12/27/23 14:18 Surgical - Exam Vital Signs Temp Pulse Resp BP Pulse Ox 98.0 F 110 H 17 103/72 99 12/27/23 12:10 12/27/23 12:10 12/27/23 12:10 12/27/23 12:10 12/27/23 12:10 Physical exam: General: Well-developed, well-nourished HEENT: Normocephalic, sclerae nonicteric Abdomen: Nontender, nondistended Extremities: No edema Neuro: Alert and oriented Results - Labs 12/28/23 06:22 12/29/23 03:25 Abnormal Lab Results - Last 24 Hours (Table) 12/28/23 12/28/23 12/29/23 Range/Units 16:31 21:28 02:07 Creatinine (0.52-1.04) mg/dL POC Glucose (mg/dL) 126 H 121 H 185 H (70-110) mg/dL 12/29/23 12/29/23 12/29/23 Range/Units 03:25 06:18 11:45 Creatinine 0.51 L (0.52-1.04) mg/dL POC Glucose (mg/dL) 294 H 409 H (70-110) mg/dL 12/29/23 Range/Units 11:46 Creatinine (0.52-1.04) mg/dL POC Glucose (mg/dL) 408 H (70-110) mg/dL Microbiology - Last 24 Hours (Table) 12/28/23 01:31 Urine Culture - Final Urine,Voided Diabetes panel 12/29/23 Range/Units 03:25 Creatinine 0.51 L (0.52-1.04) mg/dL Pituitary panel 12/29/23 Range/Units 03:25 Creatinine 0.51 L (0.52-1.04) mg/dL Adrenal panel 12/29/23 Range/Units 03:25 Creatinine 0.51 L (0.52-1.04) mg/dL Assessment and Plan Plan: 53-year-old female with known severe gastroparesis. Continue supportive care. Patient states her last upper endoscopy was 2 months ago but it appears this was done at an outside hospital. We were consulted for EGD. Not sure that is necessary at this time. Will try to get more information regarding patient's [facility] workup.
[2023-12-29] MEDS: INSULIN ASPART (NovoLOG) 100 UNIT/ML VIAL SQ SCH (12:39)
--- NOTE | 2023-12-29 12:39 | P.PN ---
Subjective Progress Note Date: 12/29/23 Principal diagnosis: shortness of breath, associated with nausea and vomiting much better now Baseline COPD 2. Evaluated further outpatient setting intractable nausea vomiting, continue Zofran Hypertension hypertensive cardiovascular disease, continue Aldactone Status post PEG tube placement tolerating tube feed well Left wrist cellulitis with culture positive for MRSA on IV vancomycin and doxycycline 12/29/2023, patient seen eval reexamined during the rounds labs reviewed medications reviewed patient sugar is 410, prior records reviewed discussed with the patient, patient is on insulin 2 units with. 3 times a day also on sliding scale insulin which is being reinitiated.patient is afebrile (wrist covered with dressing, temperature 90.8, heart rate is 120 saturation 95% blood pressure 123/78 53-year-old female seen evaluated examined with long-standing history of gastroparesis and vomiting due to very brittle diabetes mellitus, patient has been having vomiting and nausea, with that patient has been short of breath, however currently on specific questioning denies any cough or sputum but denies any chest pain shortness breath is improved as nausea and vomiting better under control, no diarrhea fever or chills or cough Past medical history is for brittle diabetes, dyslipidemia, major depression,chronic pain syndrome, Objective - Vital Signs Vital signs: Vital Signs Temp 98.1 F 12/29/23 07:33 Pulse 120 H 12/29/23 09:12 Resp 15 12/29/23 07:33 BP 123/78 12/29/23 07:33 Pulse Ox 95 12/29/23 07:33 FiO2 Intake & Output 12/28/23 12/29/23 12/29/23 18:59 06:59 18:59 Intake Total 1820 Output Total 700 Balance 1120 Weight 41 kg Intake: IV 20 Invasive Line 1 20 Intake, IV Titration 1200 Amount Sodium Chloride 0.9% 1, 1200 000 ml @ 100 mls/hr IV . Q10H [facility] Rx#:[id number] Oral 600 Output: Urine 500 Emesis 200 Other: Voiding Method Toilet Toilet # Voids 1 5 - Exam - Constitutional General appearance: average body habitus, mild distress - EENT Eyes: EOMI, PERRLA ENT: normal oropharynx Ears: bilateral: normal - Neck Carotids: bilateral: upstroke normal Thyroid: bilateral: normal size - Respiratory Respiratory: bilateral: wheezing - Cardiovascular Rhythm: regular Heart sounds: normal: S1, S2 - Gastrointestinal General gastrointestinal: normal bowel sounds, soft - Integumentary Integumentary: normal - Neurologic Neurologic: CNII-XII intact - Musculoskeletal Musculoskeletal: gait normal, strength equal bilaterally - Psychiatric Psychiatric: A&O x's 3, appropriate affect, intact judgment & insight - Labs CBC & Chem 7: 12/28/23 06:22 12/29/23 03:25 Labs: Abnormal Lab Results - Last 24 Hours (Table) 12/28/23 12/28/23 12/29/23 Range/Units 16:31 21:28 02:07 Creatinine (0.52-1.04) mg/dL POC Glucose (mg/dL) 126 H 121 H 185 H (70-110) mg/dL 12/29/23 12/29/23 12/29/23 Range/Units 03:25 06:18 11:45 Creatinine 0.51 L (0.52-1.04) mg/dL POC Glucose (mg/dL) 294 H 409 H (70-110) mg/dL 12/29/23 Range/Units 11:46 Creatinine (0.52-1.04) mg/dL POC Glucose (mg/dL) 408 H (70-110) mg/dL Microbiology - Last 24 Hours (Table) 12/28/23 01:31 Urine Culture - Final Urine,Voided Assessment and Plan Assessment: shortness of breath, associated with nausea and vomiting much better now Baseline COPD 2. Evaluated further outpatient setting intractable nausea vomiting, continue Zofran Hypertension hypertensive cardiovascular disease, continue Aldactone Status post PEG tube placement tolerating tube feed well Left wrist cellulitis with culture positive for MRSA on IV vancomycin and doxycycline Plan: as above Time with Patient: Less than 30
--- NOTE | 2023-12-29 12:39 | P.PN ---
Subjective Progress Note Date: 12/29/23 Principal diagnosis: Reason for follow-up is left hand and wrist area cellulitis Patient is a 53-year-old female with a past medical history significant for diabetes mellitus hypertension diabetic gastroparesis requiring a PEG tube placement recent admission to the hospital with left wrist cellulitis after an IV went bad and culture positive for MRSA now presenting back with nausea and vomiting unable to keep her medication and did have some cellulitis to the left wrist and hand area. On today's evaluation that is 12/29/2023, Patient is afebrile this morning and denies any chills, patient mention breathing comfortably and is currently on room air, patient denies any chest pain occasional cough patient did have improvement her nausea no further vomiting left hand swelling and redness slightly decreased. Patient did have a creatinine 0.51 urine culture negative Objective - Vital Signs Vital signs: Vital Signs Temp 98.1 F 12/29/23 07:33 Pulse 120 H 12/29/23 09:12 Resp 15 12/29/23 07:33 BP 123/78 12/29/23 07:33 Pulse Ox 95 12/29/23 07:33 FiO2 Intake & Output 12/28/23 12/29/23 12/29/23 18:59 06:59 18:59 Intake Total 1820 Output Total 700 Balance 1120 Weight 41 kg Intake: IV 20 Invasive Line 1 20 Intake, IV Titration 1200 Amount Sodium Chloride 0.9% 1, 1200 000 ml @ 100 mls/hr IV . Q10H [facility] Rx#:[id number] Oral 600 Output: Urine 500 Emesis 200 Other: Voiding Method Toilet Toilet # Voids 1 5 - Exam GENERAL DESCRIPTION: Middle-aged female lying in bed in no distress RESPIRATORY SYSTEM: Unlabored breathing , decreased breath sounds at bases HEART: S1 S2 regular rate and rhythm , ABDOMEN: Soft , no tenderness EXTREMITIES: Left hand wrist area swelling redness decreased - Labs CBC & Chem 7: 12/28/23 06:22 12/29/23 03:25 Labs: Abnormal Lab Results - Last 24 Hours (Table) 12/28/23 12/28/23 12/29/23 Range/Units 16:31 21:28 02:07 Creatinine (0.52-1.04) mg/dL POC Glucose (mg/dL) 126 H 121 H 185 H (70-110) mg/dL 12/29/23 12/29/23 12/29/23 Range/Units 03:25 06:18 11:45 Creatinine 0.51 L (0.52-1.04) mg/dL POC Glucose (mg/dL) 294 H 409 H (70-110) mg/dL 12/29/23 Range/Units 11:46 Creatinine (0.52-1.04) mg/dL POC Glucose (mg/dL) 408 H (70-110) mg/dL Microbiology - Last 24 Hours (Table) 12/28/23 01:31 Urine Culture - Final Urine,Voided Assessment and Plan (1) Cellulitis of left wrist Current Visit: No Status: Acute Code(s): L03.114 - CELLULITIS OF LEFT UPPER LIMB SNOMED Code(s): 20749737467947248 Plan: 1patient with a left wrist and hand dorsum area swelling minimal redness in this patient who was recently diagnosed with the cellulitis to the area from MRSA concerning for possible residual cellulitis likely from the same pathogen 2-we will continue the patient on vancomycin pharmacy to dose while watching her kidney function closely and monitor her clinical course closely Dictation was produced using [employer] dictation software. please excuse any grammatical, word or spelling errors. Time with Patient: Less than 30
[2023-12-29] MEDS: ALPRAZolam 0.25 MG TAB PO PRN (13:44)
[2023-12-29 16:50] LABS: Glucose,Whole Blood 244 mg/dL (70-110)
[2023-12-29 21:45] LABS: Glucose,Whole Blood 171 mg/dL (70-110)
[2023-12-30 03:40] LABS: Glucose,Whole Blood 262 mg/dL (70-110)
[2023-12-30 05:49] LABS: Glucose,Whole Blood 297 mg/dL (70-110)
[2023-12-30 05:49] LABS: Glucose,Whole Blood 312 mg/dL (70-110)
[2023-12-30 11:37] LABS: Glucose,Whole Blood 221 mg/dL (70-110)
--- NOTE | 2023-12-30 13:24 | PN ---
PROGRESS NOTE SUBJECTIVE: Lesa Patterson admitted with diabetic ketoacidosis, gastroparesis. OBJECTIVE: VITAL SIGNS: Temperature is 98.2, pulse is 108 to 115, blood pressure 120s to 118 over 70s, O2 93 to 94 on room air. She wears oxygen at night. Hemoglobin A1c is 14.1. Sugars are 100s, 200s to 300s, much improved. Dr. Brunson has been seeing her for an infections in her left hand. Urine culture came back 50% to 100%, skin normal komal. Surgical consultation, seen with Dr. Chong with retractable vomiting. Further surgical recommendations by him. Continue supportive care. Upper endoscopy 2 months ago done at outside hospital. Does not think she needs an EGD at this time. Dr. Brunson saw her for infection, cellulitis of the left wrist she recently seen her for. Continue on vancomycin, pharmacy to watch her kidney function and wait for his further recommendations. She appears to be improving from medical standpoint. Continue to monitor CBC, chem panel. She is much improved. MMODL / IJN: [id number] /
--- NOTE | 2023-12-30 14:01 | P.PN ---
Subjective Progress Note Date: 12/30/23 CHIEF COMPLAINT: Intractable vomiting HISTORY OF PRESENT ILLNESS: Patient readmitted with intractable vomiting. Patient reports it feels like her chronic issues with nausea vomiting and abdominal pain. She reports having bowel movements. She is tolerating her tube feeds. Initially patient did not think she had a EGD completed. But per our chart here she did have a EGD in May [address] Miranda that had reported esophagitis, gastritis small amount of retained food likely from gastric paresis , a duodenal polyp. Pathology was positive for H. pylori. mildly Tachycardic. Afebrile PHYSICAL EXAM: VITAL SIGNS: Reviewed. GENERAL: no acute distress. ABDOMEN: Soft. Nondistended. Diffuse tenderness NEUROLOGIC: Alert and oriented. Cranial nerves II through XII grossly intact. ASSESSMENT: 1. Intractable nausea and vomiting likely due to gastroparesis 2. Prior history of H. pylori PLAN: -Patient scheduled for EGD on with Dr. Garzon -Continue tube feeds and consistent carbohydrate diet Physician Terrazzo Polisher Helper note has been reviewed by physician. Signing provider agrees with the documented findings, assessment, and plan of care. Objective - Vital Signs Vital signs: Vital Signs Temp 98.2 F 12/30/23 07:35 Pulse 112 H 12/30/23 09:28 Resp 16 12/30/23 07:35 BP 118/78 12/30/23 07:35 Pulse Ox 94 L 12/30/23 07:35 FiO2 Intake & Output 12/29/23 12/30/23 12/30/23 18:59 06:59 18:59 Intake Total 2140 Balance 2140 Weight 38 kg Intake: Intake, IV Titration 1450 Amount Sodium Chloride 0.9% 1, 1200 000 ml @ 100 mls/hr IV . Q10H [facility] Rx#:[id number] Vancomycin 750 mg In 250 Sodium Chloride 0.9% 250 ml @ 125 mls/hr IVPB Q12HR@0500,1700 [facility] Rx#: [id number] Tube Feeding 600 Other 90 Other: Voiding Method Toilet Toilet Toilet # Voids 4 2 # Bowel Movements 2 1 - Labs CBC & Chem 7: 12/28/23 06:22 12/29/23 03:25 Labs: Abnormal Lab Results - Last 24 Hours (Table) 12/29/23 12/29/23 12/30/23 Range/Units 16:49 21:44 03:38 POC Glucose (mg/dL) 244 H 171 H 262 H (70-110) mg/dL 12/30/23 12/30/23 12/30/23 Range/Units 05:46 05:47 11:35 POC Glucose (mg/dL) 297 H 312 H 221 H (70-110) mg/dL
[2023-12-30 16:38] LABS: Glucose,Whole Blood 153 mg/dL (70-110)
--- NOTE | 2023-12-30 17:10 | P.PN ---
Subjective Progress Note Date: 12/30/23 Principal diagnosis: shortness of breath, associated with nausea and vomiting much better now Baseline COPD 2. Evaluated further outpatient setting intractable nausea vomiting, continue Zofran Hypertension hypertensive cardiovascular disease, continue Aldactone Status post PEG tube placement tolerating tube feed well Left wrist cellulitis with culture positive for MRSA on IV vancomycin and doxycycline 12/30/2023, patient seen eval examined during the rounds mild shortness of breath is present associated with abdominal distention and, patient is being eval for upper endoscopy, patient is on tube feed 50 mL an hour also gently being hydrated with normal saline 100 mL an hourblood sugar stable 153, currently patient is on DuoNeb 4 times a day as needed also on IV vancomycin 12/29/2023, patient seen eval reexamined during the rounds labs reviewed medications reviewed patient sugar is 410, prior records reviewed discussed with the patient, patient is on insulin 2 units with. 3 times a day also on sliding scale insulin which is being reinitiated.patient is afebrile (wrist covered with dressing, temperature 90.8, heart rate is 120 saturation 95% blood pressure 123/78 53-year-old female seen evaluated examined with long-standing history of gastroparesis and vomiting due to very brittle diabetes mellitus, patient has been having vomiting and nausea, with that patient has been short of breath, however currently on specific questioning denies any cough or sputum but denies any chest pain shortness breath is improved as nausea and vomiting better under control, no diarrhea fever or chills or cough Past medical history is for brittle diabetes, dyslipidemia, major depression,chronic pain syndrome, Objective - Vital Signs Vital signs: Vital Signs Temp 98.6 F 12/30/23 13:31 Pulse 116 H 12/30/23 13:31 Resp 16 12/30/23 13:31 BP 137/84 12/30/23 13:31 Pulse Ox 94 L 12/30/23 13:31 FiO2 Intake & Output 12/29/23 12/30/23 12/30/23 18:59 06:59 18:59 Intake Total 2140 Balance 2140 Weight 38 kg Intake: Intake, IV Titration 1450 Amount Sodium Chloride 0.9% 1, 1200 000 ml @ 100 mls/hr IV . Q10H [facility] Rx#:[id number] Vancomycin 750 mg In 250 Sodium Chloride 0.9% 250 ml @ 125 mls/hr IVPB Q12HR@0500,1700 [facility] Rx#: [id number] Tube Feeding 600 Other 90 Other: Voiding Method Toilet Toilet Toilet # Voids 4 2 # Bowel Movements 2 1 - Exam - Constitutional General appearance: average body habitus, mild distress - EENT Eyes: EOMI, PERRLA ENT: normal oropharynx Ears: bilateral: normal - Neck Carotids: bilateral: upstroke normal Thyroid: bilateral: normal size - Respiratory Respiratory: bilateral: wheezing - Cardiovascular Rhythm: regular Heart sounds: normal: S1, S2 - Gastrointestinal General gastrointestinal: normal bowel sounds, soft - Integumentary Integumentary: normal - Neurologic Neurologic: CNII-XII intact - Musculoskeletal Musculoskeletal: gait normal, strength equal bilaterally - Psychiatric Psychiatric: A&O x's 3, appropriate affect, intact judgment & insight - Labs CBC & Chem 7: 12/28/23 06:22 12/29/23 03:25 Labs: Abnormal Lab Results - Last 24 Hours (Table) 12/29/23 12/30/23 12/30/23 Range/Units 21:44 03:38 05:00 POC Glucose (mg/dL) 171 H 262 H (70-110) mg/dL Hemoglobin A1c 14.1 H (<=6.0) % 12/30/23 12/30/23 12/30/23 Range/Units 05:46 05:47 11:35 POC Glucose (mg/dL) 297 H 312 H 221 H (70-110) mg/dL Hemoglobin A1c (<=6.0) % 12/30/23 Range/Units 16:36 POC Glucose (mg/dL) 153 H (70-110) mg/dL Hemoglobin A1c (<=6.0) % Assessment and Plan Assessment: COPD not in exacerbation, continue bronchodilators, Further evaluation as outpatient Hicupps intermittentlyappeared to be related to abdominal distention, patient is scheduled for endoscopy and upper GI tomorrow shortness of breath, associated with nausea and vomiting much better now intractable nausea vomiting, continue Zofran Hypertension hypertensive cardiovascular disease, continue Aldactone Status post PEG tube placement tolerating tube feed well Left wrist cellulitis with culture positive for MRSA on IV vancomycin and doxycycline Plan: as above Time with Patient: Greater than 30
[2023-12-30] MEDS: VANCOMYCIN TROUGH DUE 1 EACH MISC MISCELLANE ONE (17:43)
--- NOTE | 2023-12-30 17:51 | P.PN ---
Subjective Progress Note Date: 12/30/23 Principal diagnosis: Reason for follow-up is left hand and wrist area cellulitis Patient is a 53-year-old female with a past medical history significant for diabetes mellitus hypertension diabetic gastroparesis requiring a PEG tube placement recent admission to the hospital with left wrist cellulitis after an IV went bad and culture positive for MRSA now presenting back with nausea and vomiting unable to keep her medication and did have some cellulitis to the left wrist and hand area. On today's evaluation that is 12/30/2023,the patient denies any fever or any chills, patient is breathing comfortably on room air, the patient denies chest pain shortness of breath and no significant cough, patient complaining of some nausea but no vomiting some epigastric abdominal pain and did have some diarrhea patient pain and swelling to the left wrist and hand has decreased in intensity. Patient vancomycin trough is 18 urine culture negative Objective - Vital Signs Vital signs: Vital Signs Temp 98.2 F 12/30/23 07:35 Pulse 112 H 12/30/23 09:28 Resp 16 12/30/23 07:35 BP 118/78 12/30/23 07:35 Pulse Ox 94 L 12/30/23 07:35 FiO2 Intake & Output 12/29/23 12/30/23 12/30/23 18:59 06:59 18:59 Intake Total 2140 Balance 2140 Weight 38 kg Intake: Intake, IV Titration 1450 Amount Sodium Chloride 0.9% 1, 1200 000 ml @ 100 mls/hr IV . Q10H [facility] Rx#:[id number] Vancomycin 750 mg In 250 Sodium Chloride 0.9% 250 ml @ 125 mls/hr IVPB Q12HR@0500,1700 [facility] Rx#: [id number] Tube Feeding 600 Other 90 Other: Voiding Method Toilet Toilet Toilet # Voids 4 2 # Bowel Movements 2 1 - Exam GENERAL DESCRIPTION: Middle-aged female lying in bed in no distress RESPIRATORY SYSTEM: Unlabored breathing , decreased breath sounds at bases HEART: S1 S2 regular rate and rhythm , ABDOMEN: Soft , no tenderness EXTREMITIES: Left hand wrist area swelling redness decreased - Labs CBC & Chem 7: 12/28/23 06:22 12/29/23 03:25 Labs: Abnormal Lab Results - Last 24 Hours (Table) 12/29/23 12/29/23 12/30/23 Range/Units 16:49 21:44 03:38 POC Glucose (mg/dL) 244 H 171 H 262 H (70-110) mg/dL Hemoglobin A1c (<=6.0) % 12/30/23 12/30/23 12/30/23 Range/Units 05:00 05:46 05:47 POC Glucose (mg/dL) 297 H 312 H (70-110) mg/dL Hemoglobin A1c 14.1 H (<=6.0) % 12/30/23 Range/Units 11:35 POC Glucose (mg/dL) 221 H (70-110) mg/dL Hemoglobin A1c (<=6.0) % Assessment and Plan (1) Cellulitis of left wrist Current Visit: No Status: Acute Code(s): L03.114 - CELLULITIS OF LEFT UPPER LIMB SNOMED Code(s): 45333677390225942 Plan: 1patient with a left wrist and hand dorsum area swelling minimal redness in this patient who was recently diagnosed with the cellulitis to the area from MRSA concerning for possible residual cellulitis likely from the same pathogen 2-patient to continue vancomycin pharmacy to dose her trough is 18 we will transition to oral antibiotic once stable for discharge by primary Dictation was produced using [employer] dictation software. please excuse any grammatical, word or spelling errors. Time with Patient: Less than 30
[2023-12-30 20:40] LABS: Glucose,Whole Blood 175 mg/dL (70-110)
[2023-12-31 02:14] LABS: Glucose,Whole Blood 282 mg/dL (70-110)
[2023-12-31 05:50] LABS: Glucose,Whole Blood 383 mg/dL (70-110)
[2023-12-31 06:08] LABS: ALT 18 U/L (4-34); AST 26 U/L (14-36); African American GFR (CKD) >90 (>60 ml/min/1.73 sqM); Albumin 2.4 g/dL (3.5-5.0); Albumin/Globulin Ratio 0.9; Alkaline Phosphatase 126 U/L (38-126); Anion Gap 6 mmol/L; Blood Urea Nitrogen 24 mg/dL (7-17); Calcium 7.9 mg/dL (8.4-10.2); Carbon Dioxide 20 mmol/L (22-30); Chloride 106 mmol/L (98-107); Globulin 2.8 g/dL; Glucose 328 mg/dL (74-99); Non-African American GFR(CKD) >90 (>60 ml/min/1.73 sqM); Potassium 5.1 mmol/L (3.5-5.1); Sodium 132 mmol/L (137-145); Total Bilirubin 0.2 mg/dL (0.2-1.3); Total Protein 5.2 g/dL (6.3-8.2)
[2023-12-31 08:44] LABS: Basophils # (A) 0.09 X 10*3/uL (0.00-0.10); Basophils % (A) 1.3 %; Eosinophils # (A) 0.43 X 10*3/uL (0.04-0.35); Eosinophils % (A) 6.1 %; HCT 28.5 % (37.2-46.3); HGB 8.8 g/dL (12.0-15.0); Lymphocytes # (A) 1.64 X 10*3/uL (0.90-5.00); Lymphocytes % (A) 23.2 %; MCH 27.9 pg (27.0-32.0); MCHC 30.9 g/dL (32.0-37.0); MCV 90.5 FL (80.0-97.0); Mean Platelet Volume 10.3 FL (9.5-12.2); Monocytes # (A) 0.64 X 10*3/uL (0.20-1.00); Monocytes % (A) 9.1 %; NRBC Per 100 WBC 0 X 10*3/uL (0.00-0.01); Neutrophils # (A) 4.25 X 10*3/uL (1.80-7.70); Platelet Count 379 X 10*3/uL (140-440); RBC 3.15 X 10*6/uL (4.10-5.20); RDW 15.2 % (11.5-14.5); WBC 7.07 X 10*3/uL (4.50-10.00)
[2023-12-31 11:40] LABS: Glucose,Whole Blood 325 mg/dL (70-110)
--- NOTE | 2023-12-31 11:53 | P.PN ---
Subjective Progress Note Date: 12/31/23 CHIEF COMPLAINT: Intractable vomiting HISTORY OF PRESENT ILLNESS: Patient readmitted with intractable vomiting. Patient reports she is feeling better today. Tolerating her tube feeds. She has less nausea today. Afebrile. Mildly tachycardic. WBC 7.07 Hgb 8.8 PHYSICAL EXAM: VITAL SIGNS: Reviewed. GENERAL: no acute distress. ABDOMEN: Soft. Nondistended. ASSESSMENT: 1. Intractable nausea and vomiting likely due to gastroparesis 2. Prior history of H. pylori PLAN: -Patient scheduled for EGD on with Dr. Garzon -Continue tube feeds and consistent carbohydrate diet -Continue to work on blood sugar control Physician Hay Stacker note has been reviewed by physician. Signing provider agrees with the documented findings, assessment, and plan of care. Objective - Vital Signs Vital signs: Vital Signs Temp 98.6 F 12/31/23 07:24 Pulse 116 H 12/31/23 09:07 Resp 17 12/31/23 07:24 BP 149/81 12/31/23 07:24 Pulse Ox 94 L 12/31/23 07:24 FiO2 Intake & Output 12/30/23 12/31/23 12/31/23 18:59 06:59 18:59 Weight 40.1 kg Other: Voiding Method Toilet Toilet # Voids 3 2 # Bowel Movements 1 - Labs CBC & Chem 7: 12/31/23 04:58 12/31/23 04:58 Labs: Abnormal Lab Results - Last 24 Hours (Table) 12/30/23 12/30/23 12/30/23 Range/Units 05:00 16:36 20:37 RBC (4.10-5.20) X 10*6/uL Hgb (12.0-15.0) g/dL Hct (37.2-46.3) % MCHC (32.0-37.0) g/dL RDW (11.5-14.5) % Eosinophils # (0.04-0.35) X 10*3/uL Sodium (137-145) mmol/L Carbon Dioxide (22-30) mmol/L BUN (7-17) mg/dL Glucose (74-99) mg/dL POC Glucose (mg/dL) 153 H 175 H (70-110) mg/dL Hemoglobin A1c 14.1 H (<=6.0) % Calcium (8.4-10.2) mg/dL Total Protein (6.3-8.2) g/dL Albumin (3.5-5.0) g/dL 12/31/23 12/31/23 12/31/23 Range/Units 02:13 04:58 04:58 RBC 3.15 L (4.10-5.20) X 10*6/uL Hgb 8.8 L (12.0-15.0) g/dL Hct 28.5 L (37.2-46.3) % MCHC 30.9 L (32.0-37.0) g/dL RDW 15.2 H (11.5-14.5) % Eosinophils # 0.43 H (0.04-0.35) X 10*3/uL Sodium 132 L (137-145) mmol/L Carbon Dioxide 20 L (22-30) mmol/L BUN 24 H (7-17) mg/dL Glucose 328 H (74-99) mg/dL POC Glucose (mg/dL) 282 H (70-110) mg/dL Hemoglobin A1c (<=6.0) % Calcium 7.9 L (8.4-10.2) mg/dL Total Protein 5.2 L (6.3-8.2) g/dL Albumin 2.4 L (3.5-5.0) g/dL 12/31/23 12/31/23 Range/Units 05:47 11:38 RBC (4.10-5.20) X 10*6/uL Hgb (12.0-15.0) g/dL Hct (37.2-46.3) % MCHC (32.0-37.0) g/dL RDW (11.5-14.5) % Eosinophils # (0.04-0.35) X 10*3/uL Sodium (137-145) mmol/L Carbon Dioxide (22-30) mmol/L BUN (7-17) mg/dL Glucose (74-99) mg/dL POC Glucose (mg/dL) 383 H 325 H (70-110) mg/dL Hemoglobin A1c (<=6.0) % Calcium (8.4-10.2) mg/dL Total Protein (6.3-8.2) g/dL Albumin (3.5-5.0) g/dL
--- NOTE | 2023-12-31 13:58 | PN ---
PROGRESS NOTE SUBJECTIVE: The patient still has nausea and vomiting. She is going to get EGD with Dr. Garzon in the morning. She is saturating 94 on room air. OBJECTIVE: VITAL SIGNS: Blood pressure 149/81, temperature 98.6, respiratory rate 16 to 18, blood pressure 116 to 110. HEMATOLOGY: Negative for Homans. PSYCH: Fair mood and affect. NEUROLOGIC: Alert and oriented x3. Hemoglobin is 8.8. Hemoglobin went from 12.3 to 8.8. We have to check for some scans for bleeding. EGD scheduled for tomorrow or . Continue current breathing treatments. Give her Venofer here. Continue on tube feedings. Prognosis guarded. MMODL / IJN: [id number] /
[2023-12-31] MEDS: SODIUM FERRIC GLUCONAT-SUCROSE 125 MG in SODIUM CHLORIDE 0.9% 100 ML IVPB SCH (14:04)
--- NOTE | 2023-12-31 15:50 | P.PN ---
Subjective Progress Note Date: 12/31/23 Principal diagnosis: Reason for follow-up is left hand and wrist area cellulitis Patient is a 53-year-old female with a past medical history significant for diabetes mellitus hypertension diabetic gastroparesis requiring a PEG tube placement recent admission to the hospital with left wrist cellulitis after an IV went bad and culture positive for MRSA now presenting back with nausea and vomiting unable to keep her medication and did have some cellulitis to the left wrist and hand area. On today's evaluation that is 12/31/2023,the patient remains to be afebrile, patient is on room air not requiring supplemental oxygen and denies any shortness of breath no chest pain or cough.Patient complaining of nausea but no vomiting no abdominal pain did have some diarrhea pain and swelling to the left and has decreased in intensity. Patient white count 7.07, creatinine 0.62 Objective - Vital Signs Vital signs: Vital Signs Temp 98.2 F 12/31/23 13:16 Pulse 122 H 12/31/23 13:16 Resp 17 12/31/23 13:16 BP 120/71 12/31/23 13:16 Pulse Ox 97 12/31/23 13:16 FiO2 Intake & Output 12/30/23 12/31/23 12/31/23 18:59 06:59 18:59 Weight 40.1 kg Other: Voiding Method Toilet Toilet # Voids 3 2 # Bowel Movements 1 - Exam GENERAL DESCRIPTION: Middle-aged female lying in bed in no distress RESPIRATORY SYSTEM: Unlabored breathing , decreased breath sounds at bases HEART: S1 S2 regular rate and rhythm , ABDOMEN: Soft , no tenderness EXTREMITIES: Left hand wrist area swelling redness decreased - Labs CBC & Chem 7: 12/31/23 04:58 12/31/23 04:58 Labs: Abnormal Lab Results - Last 24 Hours (Table) 12/30/23 12/30/23 12/31/23 Range/Units 16:36 20:37 02:13 RBC (4.10-5.20) X 10*6/uL Hgb (12.0-15.0) g/dL Hct (37.2-46.3) % MCHC (32.0-37.0) g/dL RDW (11.5-14.5) % Eosinophils # (0.04-0.35) X 10*3/uL Sodium (137-145) mmol/L Carbon Dioxide (22-30) mmol/L BUN (7-17) mg/dL Glucose (74-99) mg/dL POC Glucose (mg/dL) 153 H 175 H 282 H (70-110) mg/dL Calcium (8.4-10.2) mg/dL Total Protein (6.3-8.2) g/dL Albumin (3.5-5.0) g/dL 12/31/23 12/31/23 12/31/23 Range/Units 04:58 04:58 05:47 RBC 3.15 L (4.10-5.20) X 10*6/uL Hgb 8.8 L (12.0-15.0) g/dL Hct 28.5 L (37.2-46.3) % MCHC 30.9 L (32.0-37.0) g/dL RDW 15.2 H (11.5-14.5) % Eosinophils # 0.43 H (0.04-0.35) X 10*3/uL Sodium 132 L (137-145) mmol/L Carbon Dioxide 20 L (22-30) mmol/L BUN 24 H (7-17) mg/dL Glucose 328 H (74-99) mg/dL POC Glucose (mg/dL) 383 H (70-110) mg/dL Calcium 7.9 L (8.4-10.2) mg/dL Total Protein 5.2 L (6.3-8.2) g/dL Albumin 2.4 L (3.5-5.0) g/dL 12/31/23 Range/Units 11:38 RBC (4.10-5.20) X 10*6/uL Hgb (12.0-15.0) g/dL Hct (37.2-46.3) % MCHC (32.0-37.0) g/dL RDW (11.5-14.5) % Eosinophils # (0.04-0.35) X 10*3/uL Sodium (137-145) mmol/L Carbon Dioxide (22-30) mmol/L BUN (7-17) mg/dL Glucose (74-99) mg/dL POC Glucose (mg/dL) 325 H (70-110) mg/dL Calcium (8.4-10.2) mg/dL Total Protein (6.3-8.2) g/dL Albumin (3.5-5.0) g/dL Assessment and Plan (1) Cellulitis of left wrist Current Visit: No Status: Acute Code(s): L03.114 - CELLULITIS OF LEFT UPPER LIMB SNOMED Code(s): 07985021048107799 Plan: 1patient with a left wrist and hand dorsum area swelling minimal redness in this patient who was recently diagnosed with the cellulitis to the area from MRSA concerning for possible residual cellulitis likely from the same pathogen 2-patient did have improvement to the left hand or wrist area cellulitis to continue vancomycin pharmacy to dose her trough is 18 we will transition to oral antibiotic once GI symptoms improved Dictation was produced using [employer] dictation software. please excuse any grammatical, word or spelling errors. Time with Patient: Less than 30
[2023-12-31 16:36] LABS: Glucose,Whole Blood 291 mg/dL (70-110)
--- NOTE | 2023-12-31 16:45 | P.PN ---
Subjective Progress Note Date: 12/31/23 Principal diagnosis: shortness of breath, associated with nausea and vomiting much better now Baseline COPD 2. Evaluated further outpatient setting intractable nausea vomiting, continue Zofran Hypertension hypertensive cardiovascular disease, continue Aldactone Status post PEG tube placement tolerating tube feed well Left wrist cellulitis with culture positive for MRSA on IV vancomycin and doxycycline 12/31/2023, patient seen eval reexamined during on's labs reviewed medications reviewed care plan discussed, Estrace status better, continue patient on bronchodilators with inhaled corticosteroids and less lysed with Pulmicort as well as DuoNeb.labs are reviewed CBC chronic anemia with hemoglobin 8.8 otherwise unremarkable, sodium remains 132. 5.1 (24/0.6 todone today, patient afebrile intermittently tachycardic, saturation 97% room air, hiccups have improved, patient remains on tube feed 50 mL an hour also prokinetic agent and the IV fluids normal saline 100 mL an hourpain and discomfort and wrists improved scott on broad-spectrum antibiotics with IV 12/30/2023, patient seen eval examined during the rounds mild shortness of breath is present associated with abdominal distention and, patient is being eval for upper endoscopy, patient is on tube feed 50 mL an hour also gently being hydrated with normal saline 100 mL an hourblood sugar stable 153, current ly patient is on DuoNeb 4 times a day as needed also on IV vancomycin 12/29/2023, patient seen eval reexamined during the rounds labs reviewed medications reviewed patient sugar is 410, prior records reviewed discussed with the patient, patient is on insulin 2 units with. 3 times a day also on sliding scale insulin which is being reinitiated.patient is afebrile (wrist covered with dressing, temperature 90.8, heart rate is 120 saturation 95% blood pressure 123/78 53-year-old female seen evaluated examined with long-standing history of gastroparesis and vomiting due to very brittle diabetes mellitus, patient has been having vomiting and nausea, with that patient has been short of breath, ho wever currently on specific questioning denies any cough or sputum but denies any chest pain shortness breath is improved as nausea and vomiting better under control, no diarrhea fever or chills or cough Past medical history is for brittle diabetes, dyslipidemia, major depression,chronic pain syndrome, Objective - Vital Signs Vital signs: Vital Signs Temp 98.2 F 12/31/23 13:16 Pulse 122 H 12/31/23 13:16 Resp 17 12/31/23 13:16 BP 120/71 12/31/23 13:16 Pulse Ox 97 12/31/23 13:16 FiO2 Intake & Output 12/30/23 12/31/23 12/31/23 18:59 06:59 18:59 Weight 40.1 kg Other: Voiding Method Toilet Toilet # Voids 3 2 # Bowel Movements 1 - Exam - Constitutional General appearance: average body habitus, mild distress - EENT Eyes: EOMI, PERRLA ENT: normal oropharynx Ears: bilateral: normal - Neck Carotids: bilateral: upstroke normal Thyroid: bilateral: normal size - Respiratory Respiratory: bilateral: wheezing - Cardiovascular Rhythm: regular Heart sounds: normal: S1, S2 - Gastrointestinal General gastrointestinal: normal bowel sounds, soft - Integumentary Integumentary: normal - Neurologic Neurologic: CNII-XII intact - Musculoskeletal Musculoskeletal: gait normal, strength equal bilaterally - Psychiatric Psychiatric: A&O x's 3, appropriate affect, intact judgment & insight - Labs CBC & Chem 7: 12/31/23 04:58 12/31/23 04:58 Labs: Abnormal Lab Results - Last 24 Hours (Table) 12/30/23 12/31/23 12/31/23 Range/Units 20:37 02:13 04:58 RBC (4.10-5.20) X 10*6/uL Hgb (12.0-15.0) g/dL Hct (37.2-46.3) % MCHC (32.0-37.0) g/dL RDW (11.5-14.5) % Eosinophils # (0.04-0.35) X 10*3/uL Sodium 132 L (137-145) mmol/L Carbon Dioxide 20 L (22-30) mmol/L BUN 24 H (7-17) mg/dL Glucose 328 H (74-99) mg/dL POC Glucose (mg/dL) 175 H 282 H (70-110) mg/dL Calcium 7.9 L (8.4-10.2) mg/dL Total Protein 5.2 L (6.3-8.2) g/dL Albumin 2.4 L (3.5-5.0) g/dL 12/31/23 12/31/23 12/31/23 Range/Units 04:58 05:47 11:38 RBC 3.15 L (4.10-5.20) X 10*6/uL Hgb 8.8 L (12.0-15.0) g/dL Hct 28.5 L (37.2-46.3) % MCHC 30.9 L (32.0-37.0) g/dL RDW 15.2 H (11.5-14.5) % Eosinophils # 0.43 H (0.04-0.35) X 10*3/uL Sodium (137-145) mmol/L Carbon Dioxide (22-30) mmol/L BUN (7-17) mg/dL Glucose (74-99) mg/dL POC Glucose (mg/dL) 383 H 325 H (70-110) mg/dL Calcium (8.4-10.2) mg/dL Total Protein (6.3-8.2) g/dL Albumin (3.5-5.0) g/dL 12/31/23 Range/Units 16:34 RBC (4.10-5.20) X 10*6/uL Hgb (12.0-15.0) g/dL Hct (37.2-46.3) % MCHC (32.0-37.0) g/dL RDW (11.5-14.5) % Eosinophils # (0.04-0.35) X 10*3/uL Sodium (137-145) mmol/L Carbon Dioxide (22-30) mmol/L BUN (7-17) mg/dL Glucose (74-99) mg/dL POC Glucose (mg/dL) 291 H (70-110) mg/dL Calcium (8.4-10.2) mg/dL Total Protein (6.3-8.2) g/dL Albumin (3.5-5.0) g/dL Assessment and Plan Assessment: COPD not in exacerbation, continue bronchodilators, Further evaluation as outpatient electrolyte imbalance with hyponatremia and mild hyperkalemia evaluated for adrenal insufficiency, we'll check a random cortisol level Hicupps intermittentlyappeared to be related to abdominal distention, patient is scheduled for endoscopy and upper GI tomorrow shortness of breath, associated with nausea and vomiting much better now intractable nausea vomiting, continue Zofran Hypertension hypertensive cardiovascular disease, continue Aldactone Status post PEG tube placement tolerating tube feed well Left wrist cellulitis with culture positive for MRSA on IV vancomycin and doxycycline Plan: as above Time with Patient: Greater than 30
[2023-12-31 20:22] LABS: Glucose,Whole Blood 158 mg/dL (70-110)
[2024-01-01 02:38] LABS: Glucose,Whole Blood 239 mg/dL (70-110)
[2024-01-01 05:09] LABS: African American GFR (CKD) >90 (>60 ml/min/1.73 sqM); Non-African American GFR(CKD) >90 (>60 ml/min/1.73 sqM)
[2024-01-01 06:23] LABS: Glucose,Whole Blood 288 mg/dL (70-110)
[2024-01-01 11:32] LABS: Glucose,Whole Blood 304 mg/dL (70-110)
[2024-01-01 14:07] VITALS: BMI 17.8
--- NOTE | 2024-01-01 14:29 | CDI ---
Documentation Clarification Form Date: 01/01/2024 01:47:07 PM From: Berkley Jaquez RN CCDS Phone: [phone] Admit Date: 12/27/2023 02:02:00 PM Patient Name: Lesa Patterson Visit Number: [id number] Discharge Date: ATTENTION: The Clinical Documentation Specialists (CDI) and [facility] Coding Staff appreciate your assistance in clarifying documentation. Please respond to the clarification below the line at the bottom and electronically sign. The CDI & [facility] Coding staff will review the response and follow-up if needed. Please note: Queries are made part of the Legal Health Record. If you have any questions, please contact the author of this message via ITS. Doctor: Dell Pike The Registered Dietitian assessment on 12/27 indicates this patient has inadequate energy intake. Based on this information and the findings below, is there an additional diagnosis that is clinically appropriate for this patient? History/Risk Factors: 53 year old female presents to the ED with progressive vomiting and extremely high blood sugars. Medical History: Peg tube feedings, DM2 and gastroparesis. 12/26, HP. Clinical Indicators: Nutritional consult: Current BMI: 18.2, Hgt 4ft 11in Wgt 41kg Physical appearance underweight. Estimated Nutritional needs in Kcals: Energy needs 1700 Kcal Estimated Protein 1.5g/kg, 65g/day. Fluid formula 1ml/Kcal, Estimated flid 1700ml/days Tube feeding Glucerna 1.5, Volume 1,200ml, Rate 50ml/hr, Additional source PO intake, Treatment: Monitoring PO and Supplement intake, Education on Diabetic diet ,consistent CHO diet . Supplements: Glucerna 1.5 at 25ml/hr, titrate by 15ml q8hr until goal of 50ml/hr or based off how stomach is feeling. Is there an additional diagnosis that is clinically appropriate for this patient? [ ] Moderate Protein-Calorie Malnutrition [ ] Severe Protein-Calorie Malnutrition [ ] Other condition, please specify [ ] Unable to Determine (Template Last Revised: December 2022) MTDD
--- NOTE | 2024-01-01 15:11 | P.PN ---
Subjective Progress Note Date: 01/01/24 CHIEF COMPLAINT: Intractable vomiting HISTORY OF PRESENT ILLNESS: Patient readmitted with intractable vomiting. Patient is tolerating tube feeds and some food. No further vomiting. But does report nausea patient reports she is feeling better today. Afebrile. Mildly tachycardic. WBC 7.07 Hgb 8.8 PHYSICAL EXAM: VITAL SIGNS: Reviewed. GENERAL: no acute distress. ABDOMEN: Soft. Nondistended. ASSESSMENT: 1. Intractable nausea and vomiting likely due to gastroparesis 2. Prior history of H. pylori PLAN: -Patient scheduled for EGD on with Dr. Garzon -N.p.o. after midnight Physician Photo Manager note has been reviewed by physician. Signing provider agrees with the documented findings, assessment, and plan of care. Objective - Vital Signs Vital signs: Vital Signs Temp 98.3 F 01/01/24 14:00 Pulse 121 H 01/01/24 14:00 Resp 16 01/01/24 14:00 BP 145/84 01/01/24 14:00 Pulse Ox 94 L 01/01/24 14:00 FiO2 Intake & Output 12/31/23 01/01/24 01/01/24 18:59 06:59 18:59 Intake Total 360 Balance 360 Weight 40.1 kg 40.1 kg Intake: Oral 360 Other: Voiding Method Toilet Toilet # Voids 3 4 - Labs CBC & Chem 7: 12/31/23 04:58 01/01/24 03:55 Labs: Abnormal Lab Results - Last 24 Hours (Table) 12/31/23 12/31/23 01/01/24 Range/Units 16:34 20:20 02:37 POC Glucose (mg/dL) 291 H 158 H 239 H (70-110) mg/dL 01/01/24 01/01/24 Range/Units 06:22 11:31 POC Glucose (mg/dL) 288 H 304 H (70-110) mg/dL
[2024-01-01 16:35] LABS: Glucose,Whole Blood 345 mg/dL (70-110)
[2024-01-01 21:10] LABS: Glucose,Whole Blood 191 mg/dL (70-110)
[2024-01-02 01:47] LABS: Glucose,Whole Blood 296 mg/dL (70-110)
[2024-01-02 04:19] LABS: Anisocytosis Slight; HCT 30.3 % (34.0-46.0); HGB 9.2 gm/dL (11.4-16.0); Hypochromasia Marked; MCH 28.4 pg (25.0-35.0); MCHC 30.5 g/dL (31.0-37.0); MCV 93.3 fL (80.0-100.0); Mean Platelet Volume 7.9; Platelet Count 433 k/uL (150-450); RBC 3.25 m/uL (3.80-5.40); RDW 16.1 % (11.5-15.5); WBC 7.4 k/uL (3.8-10.6)
[2024-01-02 05:51] LABS: Glucose,Whole Blood 250 mg/dL (70-110)
[2024-01-02 05:56] LABS: African American GFR (CKD) >90 (>60 ml/min/1.73 sqM); Anion Gap 2 mmol/L; Blood Urea Nitrogen 34 mg/dL (7-17); Calcium 8.5 mg/dL (8.4-10.2); Carbon Dioxide 24 mmol/L (22-30); Chloride 107 mmol/L (98-107); Glucose 266 mg/dL (74-99); Non-African American GFR(CKD) >90 (>60 ml/min/1.73 sqM); Potassium 5.6 mmol/L (3.5-5.1); Sodium 133 mmol/L (137-145)
[2024-01-02] MEDS ORDERED: LIDOCAINE 1% (10MG/ML) FOR IV START INTRADERMA PRN (05:59)
[2024-01-02] MEDS: LACTATED RINGERS 1,000 ML IV SCH (06:41)
--- NOTE | 2024-01-02 08:01 | P.PN ---
Subjective Progress Note Date: 01/01/24 Principal diagnosis: Reason for follow-up is left hand and wrist area cellulitis Patient is a 53-year-old female with a past medical history significant for diabetes mellitus hypertension diabetic gastroparesis requiring a PEG tube placement recent admission to the hospital with left wrist cellulitis after an IV went bad and culture positive for MRSA now presenting back with nausea and vomiting unable to keep her medication and did have some cellulitis to the left wrist and hand area. On today's evaluation that is 01/01/2024, the patient continues to be afebrile, the patient is on room air and breathing comfortably, the Pt denies having any chest pain or cough, the patient has been complaining of some nausea abdominal pain or any worsening diarrhea swelling and pain to the left hand and wrist area has significantly improved. Patient did have a creatinine 0.72 no CBC was done today Objective - Vital Signs Vital signs: Vital Signs Temp 98.7 F 01/01/24 07:50 Pulse 118 H 01/01/24 09:38 Resp 16 01/01/24 07:50 BP 127/80 01/01/24 07:50 Pulse Ox 94 L 01/01/24 07:50 FiO2 Intake & Output 12/31/23 01/01/24 01/01/24 18:59 06:59 18:59 Intake Total 360 Balance 360 Weight 40.1 kg Intake: Oral 360 Other: Voiding Method Toilet Toilet # Voids 3 4 - Exam GENERAL DESCRIPTION: Middle-aged female lying in bed in no distress RESPIRATORY SYSTEM: Unlabored breathing , decreased breath sounds at bases HEART: S1 S2 regular rate and rhythm , ABDOMEN: Soft , no tenderness EXTREMITIES: Left hand wrist area swelling redness decreased - Labs CBC & Chem 7: 01/02/24 04:03 01/02/24 04:03 Labs: Abnormal Lab Results - Last 24 Hours (Table) 12/31/23 12/31/23 01/01/24 Range/Units 16:34 20:20 02:37 POC Glucose (mg/dL) 291 H 158 H 239 H (70-110) mg/dL 01/01/24 01/01/24 Range/Units 06:22 11:31 POC Glucose (mg/dL) 288 H 304 H (70-110) mg/dL Assessment and Plan (1) Cellulitis of left wrist Current Visit: No Status: Acute Code(s): L03.114 - CELLULITIS OF LEFT UPPER LIMB SNOMED Code(s): 99280329100994715 Plan: 1patient with a left wrist and hand dorsum area swelling minimal redness in this patient who was recently diagnosed with the cellulitis to the area from MRSA concerning for possible residual cellulitis likely from the same pathogen 2-patient left hand or wrist area swelling and redness has decreased in intensity, patient to continue vancomycin pharmacy to dose her trough is 18 we will transition to oral antibiotic once GI symptoms improved Dictation was produced using [employer] dictation software. please excuse any grammatical, word or spelling errors. Time with Patient: Less than 30
[2024-01-02] MEDS ORDERED: PROPOFOL 10 MG/ML 20 ML VIAL IV ONE (09:00)
[2024-01-02] MEDS ORDERED: LIDOCAINE 2% (PF) 20 MG/ML 5 ML VIAL ONE (09:00)
[2024-01-02] MEDS: IV FLUID CONTINUATION 1,000 ML IV ONE ×3 (09:04→09:54)
--- NOTE | 2024-01-02 09:59 | P.OP ---
Date of Procedure: 01/02/24 Preoperative Diagnosis: Gastritis Postoperative Diagnosis: Gastritis Gastroparesis Procedure(s) Performed: EGD Anesthesia: MAC Surgeon: Shane Garzon Pathology: none sent Condition: stable Disposition: PACU Description of Procedure: Patient was placed on the endoscopy table in the lateral position. She received IV sedation. The Gastroflux oropharynx passed in the esophagus and stomach. Scope was in place to the pylorus. The first portion duodenum appeared normal. Scope was brought back to the antrum this appeared mildly inflamed. A biopsy was performed. The scope was retroflexed Lauren stomach appeared normal. The patient's jejunostomy tube was coiled in the stomach. Several times were made to position the jejunostomy tube into the duodenum however the tube capped removing itself of the duodenum. At this point scope was withdrawn. The scope was then brought back t to the esophagus. This appeared normal. Scope was then withdrawn from the patient.
[2024-01-02] MEDS: SODIUM POLYSTYRENE SULFONATE 15 GM/60 ML BOTTLE PO STA (10:20)
--- NOTE | 2024-01-02 10:59 | P.PN ---
Subjective Progress Note Date: 01/02/24 Principal diagnosis: shortness of breath, associated with nausea and vomiting much better now Baseline COPD 2. Evaluated further outpatient setting intractable nausea vomiting, continue Zofran Hypertension hypertensive cardiovascular disease, continue Aldactone Status post PEG tube placement tolerating tube feed well Left wrist cellulitis with culture positive for MRSA on IV vancomycin and doxycycline 01/01/2024, patient seen eval examined during rounds labs reviewed medications reviewed care plan discussed, patient is status post endoscopy some esophagitis have been seen, status post biopsy patient seen post endoscopy awake and alert, denies any Significantly improved now, denies any chest pain, tube feed is to be resumed soon, labs reviewed white cell count is 7.4 hemoglobin and hematocrit 9.2/30 platelet count of 433 glucose 266 vancomycin level is 21.6 patient remains on bronchodilator as well as IV vancomycin for cellulitis of the wrist 12/31/2023, patient seen eval reexamined during on's labs reviewed medications reviewed care plan discussed, Estrace status better, continue patient on bronchodilators with inhaled corticosteroids and less lysed with Pulmicort as well as DuoNeb.labs are reviewed CBC chronic anemia with hemoglobin 8.8 otherwise unremarkable, sodium remains 132. 5.1 (24/0.6 todone today, patient afebrile intermittently tachycardic, saturation 97% room air, hiccups have improved, patient remains on tube feed 50 mL an hour also prokinetic agent and the IV fluids normal saline 100 mL an hourpain and discomfort and wrists improved scott on broad-spectrum antibiotics with IV 12/30/2023, patient seen eval examined during the rounds mild shortness of breath is present associated with abdominal distention and, patient is being morena l for upper endoscopy, patient is on tube feed 50 mL an hour also gently being hydrated with normal saline 100 mL an hourblood sugar stable 153, currently patient is on DuoNeb 4 times a day as needed also on IV vancomycin 12/29/2023, patient seen eval reexamined during the rounds labs reviewed medi cations reviewed patient sugar is 410, prior records reviewed discussed with the patient, patient is on insulin 2 units with. 3 times a day also on sliding scale insulin which is being reinitiated.patient is afebrile (wrist covered with dressing, temperature 90.8, heart rate is 120 saturation 95% blood pressure 123/78 53-year-old female seen evaluated examined with long-standing history of gastr oparesis and vomiting due to very brittle diabetes mellitus, patient has been having vomiting and nausea, with that patient has been short of breath, however currently on specific questioning denies any cough or sputum but denies any chest pain shortness breath is improved as nausea and vomiting better under control, no diarrhea fever or chills or cough Past medical history is for brittle diabetes, dyslipidemia, major depression,chronic pain syndrome, Objective - Vital Signs Vital signs: Vital Signs Temp 98.1 F 01/02/24 07:19 Pulse 110 H 01/02/24 08:53 Resp 18 01/02/24 08:32 BP 158/93 01/02/24 07:19 Pulse Ox 93 L 01/02/24 07:19 FiO2 Intake & Output 01/01/24 01/02/24 01/02/24 18:59 06:59 18:59 Intake Total 0 300 Balance 0 300 Weight 40.1 kg 42.5 kg Intake: IV 300 Oral 0 Other: Voiding Method Toilet Toilet # Voids 3 2 # Bowel Movements 1 - Exam - Constitutional General appearance: average body habitus, mild distress - EENT Eyes: EOMI, PERRLA ENT: normal oropharynx Ears: bilateral: normal - Neck Carotids: bilateral: upstroke normal Thyroid: bilateral: normal size - Respiratory Respiratory: bilateral: wheezing - Cardiovascular Rhythm: regular Heart sounds: normal: S1, S2 - Gastrointestinal General gastrointestinal: normal bowel sounds, soft - Integumentary Integumentary: normal - Neurologic Neurologic: CNII-XII intact - Musculoskeletal Musculoskeletal: gait normal, strength equal bilaterally - Psychiatric Psychiatric: A&O x's 3, appropriate affect, intact judgment & insight - Labs CBC & Chem 7: 01/02/24 04:03 01/02/24 04:03 Labs: Abnormal Lab Results - Last 24 Hours (Table) 01/01/24 01/01/24 01/01/24 Range/Units 11:31 16:34 21:09 RBC (3.80-5.40) m/uL Hgb (11.4-16.0) gm/dL Hct (34.0-46.0) % MCHC (31.0-37.0) g/dL RDW (11.5-15.5) % Sodium (137-145) mmol/L Potassium (3.5-5.1) mmol/L BUN (7-17) mg/dL Glucose (74-99) mg/dL POC Glucose (mg/dL) 304 H 345 H 191 H (70-110) mg/dL 01/02/24 01/02/24 01/02/24 Range/Units 01:45 04:03 04:03 RBC 3.25 L (3.80-5.40) m/uL Hgb 9.2 L (11.4-16.0) gm/dL Hct 30.3 L (34.0-46.0) % MCHC 30.5 L (31.0-37.0) g/dL RDW 16.1 H (11.5-15.5) % Sodium 133 L (137-145) mmol/L Potassium 5.6 H (3.5-5.1) mmol/L BUN 34 H (7-17) mg/dL Glucose 266 H (74-99) mg/dL POC Glucose (mg/dL) 296 H (70-110) mg/dL 01/02/24 Range/Units 05:50 RBC (3.80-5.40) m/uL Hgb (11.4-16.0) gm/dL Hct (34.0-46.0) % MCHC (31.0-37.0) g/dL RDW (11.5-15.5) % Sodium (137-145) mmol/L Potassium (3.5-5.1) mmol/L BUN (7-17) mg/dL Glucose (74-99) mg/dL POC Glucose (mg/dL) 250 H (70-110) mg/dL Assessment and Plan Assessment: COPD not in exacerbation, continue bronchodilators, Further evaluation as outpatient electrolyte imbalance with hyponatremia and mild hyperkalemia evaluated for adrenal insufficiency, random cortisol level is only 4.9, low normal, will do cosyntropin stimulation test Hicupps intermittentlyappeared to be related to abdominal distention, patient is scheduled for endoscopy and upper GI tomorrow status post endoscopy just try to assess seen biopsy pending shortness of breath, associated with nausea and vomiting much better now intractable nausea vomiting, continue Zofran Hypertension hypertensive cardiovascular disease, continue Aldactone Status post PEG tube placement tolerating tube feed well Left wrist cellulitis with culture positive for MRSA on IV vancomycin and doxycycline Plan: as above Time with Patient: Greater than 30
[2024-01-02 11:20] LABS: Glucose,Whole Blood 278 mg/dL (70-110)
--- NOTE | 2024-01-02 13:13 | P.PN ---
Subjective Progress Note Date: 01/02/24 Principal diagnosis: Reason for follow-up is left hand and wrist area cellulitis Patient is a 53-year-old female with a past medical history significant for diabetes mellitus hypertension diabetic gastroparesis requiring a PEG tube placement recent admission to the hospital with left wrist cellulitis after an IV went bad and culture positive for MRSA now presenting back with nausea and vomiting unable to keep her medication and did have some cellulitis to the left wrist and hand area. On today's evaluation that is 01/02/2024, Patient is afebrile patient is currently on room air and denies having any shortness of breath, the patient denies any chest pain or cough, the patient complaining of some nausea but no vomiting no abdominal pain or diarrhea left hand and wrist area swelling redness has decreased. Patient did have white count of 7.4 creatinine 0.73 Vanco trough is 21.6 Objective - Vital Signs Vital signs: Vital Signs Temp 98.1 F 01/02/24 07:19 Pulse 110 H 01/02/24 08:53 Resp 18 01/02/24 08:32 BP 158/93 01/02/24 07:19 Pulse Ox 93 L 01/02/24 07:19 FiO2 Intake & Output 01/01/24 01/02/24 01/02/24 18:59 06:59 18:59 Intake Total 0 300 Balance 0 300 Weight 40.1 kg 42.5 kg Intake: IV 300 Oral 0 Other: Voiding Method Toilet Toilet # Voids 3 2 # Bowel Movements 1 - Exam GENERAL DESCRIPTION: Middle-aged female lying in bed in no distress RESPIRATORY SYSTEM: Unlabored breathing , decreased breath sounds at bases HEART: S1 S2 regular rate and rhythm , ABDOMEN: Soft , no tenderness EXTREMITIES: Left hand wrist area swelling redness decreased - Labs CBC & Chem 7: 01/02/24 04:03 01/02/24 04:03 Labs: Abnormal Lab Results - Last 24 Hours (Table) 01/01/24 01/01/24 01/02/24 Range/Units 16:34 21:09 01:45 RBC (3.80-5.40) m/uL Hgb (11.4-16.0) gm/dL Hct (34.0-46.0) % MCHC (31.0-37.0) g/dL RDW (11.5-15.5) % Sodium (137-145) mmol/L Potassium (3.5-5.1) mmol/L BUN (7-17) mg/dL Glucose (74-99) mg/dL POC Glucose (mg/dL) 345 H 191 H 296 H (70-110) mg/dL 01/02/24 01/02/24 01/02/24 Range/Units 04:03 04:03 05:50 RBC 3.25 L (3.80-5.40) m/uL Hgb 9.2 L (11.4-16.0) gm/dL Hct 30.3 L (34.0-46.0) % MCHC 30.5 L (31.0-37.0) g/dL RDW 16.1 H (11.5-15.5) % Sodium 133 L (137-145) mmol/L Potassium 5.6 H (3.5-5.1) mmol/L BUN 34 H (7-17) mg/dL Glucose 266 H (74-99) mg/dL POC Glucose (mg/dL) 250 H (70-110) mg/dL 01/02/24 Range/Units 11:17 RBC (3.80-5.40) m/uL Hgb (11.4-16.0) gm/dL Hct (34.0-46.0) % MCHC (31.0-37.0) g/dL RDW (11.5-15.5) % Sodium (137-145) mmol/L Potassium (3.5-5.1) mmol/L BUN (7-17) mg/dL Glucose (74-99) mg/dL POC Glucose (mg/dL) 278 H (70-110) mg/dL Assessment and Plan (1) Cellulitis of left wrist Current Visit: No Status: Acute Code(s): L03.114 - CELLULITIS OF LEFT UPPER LIMB SNOMED Code(s): 17432069816869671 Plan: 1patient with a left wrist and hand dorsum area swelling minimal redness in this patient who was recently diagnosed with the cellulitis to the area from MRSA concerning for possible residual cellulitis likely from the same pathogen 2-patient left hand or wrist area swelling and redness has decreased in intensity, 3- patient to continue vancomycin pharmacy to dose and will finish therapy with oral doxycycline on discharge Dictation was produced using [employer] software. please excuse any grammatical, word or spelling errors. Time with Patient: Less than 30
[2024-01-02 14:27] VITALS: BP 125/82; PULSE 120; RESP 20; TEMP 98.4
[2024-01-02 16:47] LABS: Glucose,Whole Blood 236 mg/dL (70-110)
[2024-01-02] MEDS: VANCOMYCIN 500 MG in SODIUM CHLORIDE 0.9% 250 ML IVPB SCH (16:54)
[2024-01-02] MEDS ORDERED: DOXYCYCLINE 100 MG CAP PO SCH (21:00)
--- NOTE | 2024-02-22 12:00 | PN ---
PROGRESS NOTE Severe protein-calorie malnutrition. MMODL / IJN: [id number] /
--- NOTE | 2024-02-23 11:06 | PN ---
PROGRESS NOTE Severe protein calorie malnutrition. MMODL / IJN: [id number] /
== END 2024-01-02 19:36 | disposition home health service (06) | DRG 73 ==
LOC: EC 12:06 → 3SCARD 14:02 → 4SSUR 12-28 14:59
PROVIDERS: ADMIT Family Medicine; ATTEND Family Medicine
PROC: 0DB78ZX Excision of Stomach, Pylorus, Via Natural or Artificial Opening Endoscopic, Diagnostic (ICD-10-PCS; principal; 2024-01-02 09:25)
DX: E11.43 Type 2 diabetes mellitus with diabetic autonomic (poly)neuropathy (principal); E43 Unspecified severe protein-calorie malnutrition; L03.114 Cellulitis of left upper limb; E87.1 Hypo-osmolality and hyponatremia; N39.0 Urinary tract infection, site not specified; Z68.1 Body mass index [BMI] 19.9 or less, adult; E11.41 Type 2 diabetes mellitus with diabetic mononeuropathy; J44.9 Chronic obstructive pulmonary disease, unspecified; R14.0 Abdominal distension (gaseous); I10 Essential (primary) hypertension; B95.62 Methicillin resistant Staphylococcus aureus infection as the cause of diseases classified elsewhere; K31.84 Gastroparesis; R11.2 Nausea with vomiting, unspecified; B96.81 Helicobacter pylori [H. pylori] as the cause of diseases classified elsewhere; R00.0 Tachycardia, unspecified; E78.5 Hyperlipidemia, unspecified; G89.4 Chronic pain syndrome; E87.5 Hyperkalemia; R06.6 Hiccough; K20.90 Esophagitis, unspecified without bleeding; K29.70 Gastritis, unspecified, without bleeding; Z79.4 Long term (current) use of insulin; Z79.899 Other long term (current) drug therapy; Z86.14 Personal history of Methicillin resistant Staphylococcus aureus infection; Z86.19 Personal history of other infectious and parasitic diseases; Z93.1 Gastrostomy status; Z90.49 Acquired absence of other specified parts of digestive tract; Z87.19 Personal history of other diseases of the digestive system; Z88.5 Allergy status to narcotic agent; Z98.51 Tubal ligation status; D64.9 Anemia, unspecified
CPT/HCPCS: 36415; 43239; 80048; 80051; 80053; 80202; 81001; 82009; 82533; 82565; 82803; 82947; 83036; 83735; 84100; 84145; 84520; 85025; 85027; 87086; 88305; 93005; 94640; 96361; 96365; 96366; 96375; 99285

== ENCOUNTER 2024-01-10 08:16 | Inpatient (IN) | payer MEDICARE, OTHER ==
[2024-01-10 08:24] LABS: Glucose,Whole Blood 270 mg/dL (70-110)
[2024-01-10 08:24] LABS: Glucose,Whole Blood 237 mg/dL (70-110)
--- NOTE | 2024-01-10 08:47 | ED ---
General Adult HPI - General Chief complaint: Abdominal Pain Stated complaint: Vomiting Time Seen by Provider: 01/10/24 08:29 Source: patient, EMS, RN notes reviewed, old records reviewed Mode of arrival: EMS Limitations: no limitations - History of Present Illness Initial comments: Patient is a 53-year-old female present to the emergency department with concern for nausea vomiting. Onset of symptoms was yesterday. Patient has chronic similar symptoms associated with gastroparesis and diabetes. Patient states blood sugar was 500 yesterday and read high today. Patient request pain medication and nausea medicine. - Related Data Home Medications Medication Instructions Recorded Confirmed ALPRAZolam [Xanax] 0.25 mg PO BID PRN 05/12/23 01/10/24 Atorvastatin [Lipitor] 20 mg PO DAILY 05/12/23 01/10/24 DULoxetine HCL [Cymbalta] 30 mg PO DAILY 05/12/23 01/10/24 Insulin Lispro [humaLOG Kwikpen] 2 unit SQ AC-TID 05/12/23 01/10/24 Ipratropium-Albuterol Nebulize 3 ml INHALATION RT-BID 05/12/23 01/10/24 [Duoneb 0.5 mg-3 mg/3 ml Soln] Mirtazapine [Remeron] 30 mg PO HS 05/12/23 01/10/24 Folic Acid 1 mg PO DAILY 06/15/23 01/10/24 HYDROcodone/APAP 7.5-325MG [[place] 1 tab PO TID PRN 08/25/23 01/10/24 7.5-325] Ferrous Sulfate [Iron (65 MG 325 mg PO DAILY 12/09/23 01/10/24 Elemental)] Insulin Glargine [Lantus Vial] 4 unit SQ DAILY 12/09/23 01/10/24 Potassium Bicarb-Citric Acid 20 meq PO DAILY 12/09/23 01/10/24 (Effer-K) 20meq Tab Scopolamine [Scopolamine 1 MG/72 1 patch TRANSDERM Q72H 12/09/23 01/10/24 HR patch] Previous Rx's Medication Instructions Recorded Metoclopramide [Reglan] 10 mg PO ACHS 30 Days #120 tab 05/15/23 Pantoprazole [Protonix] 40 mg PO AC-BID 30 Days #60 tab 05/21/23 Ondansetron [Zofran] 4 mg PO DAILY 30 Days #30 tab 06/26/23 Acetaminophen Tab [Tylenol] 650 mg PO Q6HR PRN tab 10/16/23 Loperamide [Imodium] 2 mg PO QID PRN cap 10/16/23 Prochlorperazine Maleate 10 mg PO AC-BID 30 Days #60 tab 10/30/23 Doxycycline [Vibramycin] 100 mg PO BID 30 Days #60 cap 12/19/23 amLODIPine [Norvasc] 5 mg PO DAILY 90 Days #90 tab 12/19/23 Allergies Allergy/AdvReac Type Severity Reaction Status Date / Time fentanyl Allergy Unknown Verified 01/10/24 10:27 Review of Systems ROS Statement: Those systems with pertinent positive or pertinent negative responses have been documented in the HPI. ROS Other: All systems not noted in ROS Statement are negative. Constitutional: Denies: fever Eyes: Denies: eye pain ENT: Denies: ear pain Respiratory: Denies: cough Cardiovascular: Denies: chest pain Endocrine: Denies: fatigue Gastrointestinal: Reports: as per HPI, abdominal pain, nausea, vomiting Genitourinary: Denies: dysuria Musculoskeletal: Denies: back pain Skin: Denies: rash Past Medical History Past Medical History: Diabetes Mellitus, Hypertension, Musculoskeletal Disorder Additional Past Medical History / Comment(s): FREQ NAUSEA, PAINFUL RT SHOULDER "FROZEN SHOULDER", NEUROPATHY PORFIRIO LEGS and hands, Blood pressures can run high History of Any Multi-Drug Resistant Organisms: ESBL, MRSA, VRE Date of last positivie culture/infection: 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;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 MDRO Source:: Urine VRE and ESBL, MRSA-ABD Past Surgical History: Cholecystectomy, Orthopedic Surgery, Tubal Ligation Additional Past Surgical History / Comment(s): rt shoulder, J tube placement Past Anesthesia/Blood Transfusion Reactions: No Reported Reaction Additional Past Anesthesia/Blood Transfusion Reaction / Comment(s): UNK FAMILY HX Past Psychological History: Anxiety Smoking Status: Current every day smoker Past Alcohol Use History: None Reported Past Drug Use History: None Reported - Past Family History Father History Unknown: Yes Additional Family Medical History / Comment(s): unknown-adopted Mother History Unknown: Yes Additional Family Medical History / Comment(s): unknown- adopted General Exam Limitations: no limitations General appearance: alert, in no apparent distress Head exam: Present: normocephalic Eye exam: Present: normal appearance Respiratory exam: Present: normal lung sounds bilaterally Cardiovascular Exam: Present: regular rate, normal rhythm GI/Abdominal exam: Present: soft, tenderness (Mild epigastric tenderness), normal bowel sounds. Absent: distended, guarding, rebound, rigid, pulsatile mass Extremities exam: Present: normal inspection Neurological exam: Present: alert Psychiatric exam: Present: normal affect, normal mood Skin exam: Present: normal color Course Vital Signs 01/10/24 01/10/24 01/10/24 08:17 09:00 10:00 Temperature 97.9 F Pulse Rate 110 H 95 95 Respiratory 16 18 18 Rate Blood Pressure 139/97 139/88 115/73 O2 Sat by Pulse 99 99 97 Oximetry 01/10/24 01/10/24 01/10/24 11:00 12:00 13:00 Temperature Pulse Rate 96 99 89 Respiratory 18 18 18 Rate Blood Pressure 138/82 125/84 141/84 O2 Sat by Pulse 98 95 95 Oximetry EKG Findings - EKG Results: EKG: interpreted by ERMD, sinus rhythm, normal axis, normal QRS, normal ST/T EKG shows: tachycardia Medical Decision Making - Medical Decision Making Was pt. sent in by a medical professional or institution (, PA, PROJECT ADMINISTRATOR, urgent care, hospital, or long-term...) When possible be specific @ -No Did you speak to anyone other than the patient for history (EMS, parent, family, police, friend...)? What history was obtained from this source @ -No Did you review nursing and triage notes (agree or disagree)? Why? @ -I reviewed and agree with nursing and triage notes Were old charts reviewed (outside hosp., previous admission, EMS record, old EKG, old radiological studies, urgent care reports/EKG's, long-term records)? Report findings @ -Previous charts reviewed including previous admission Differential Diagnosis (chest pain, altered mental status, abdominal pain women, abdominal pain men, vaginal bleeding, weakness, fever, dyspnea, syncope, headache, dizziness, GI bleed, back pain, seizure, CVA, palpatations, mental health, musculoskeletal)? @ -Differential Abdominal Pain Women: Appendicitis, Cholecystitis, diverticulosis, ischemic bowel, pancreatitis, hepatitis, UTI, gastroenteritis, AAA, incarcerated hernia, bowel obstruction, c onstipation, inflammatory bowel, hepatitis, peptic ulcer disease, splenic infarction, perforated viscus, vulvitis, ovarian torsion, PID, kidney stone, placenta abruption, this is not meant to be an all-inclusive list EKG interpreted by me (3pts min.). @ -As above X-rays interpreted by me (1pt min.). @ -Abdominal x-ray shows no acute process feeding tube in place. CT interpreted by me (1pt min.). @ -None done U/S interpreted by me (1pt. min.). @ -None done What testing was considered but not performed or refused? (CT, X-rays, U/S, labs)? Why? @ -None What meds were considered but not given or refused? Why? @ -None Did you discuss the management of the patient with other professionals ( professionals i.e. , PA, PROJECT ADMINISTRATOR, lab, RT, psych nurse, social work instructor, chief client officer, teacher, complaint investigations officer, caser)? Give summary @ -Case discussed with Dr. Pike who will admit his patient Was smoking cessation discussed for >3mins.? @ -No Was critical care preformed (if so, how long)? @ -No Were there social determinants of health that impacted care today? How? (Homelessness, low income, unemployed, alcoholism, drug addiction, transportation, low edu. Level, literacy, decrease access to med. care, [place] [facility], rehab)? @ -No Was there de-escalation of care discussed even if they declined (Discuss DNR or withdrawal of care, Hospice)? DNR status @ -No What co-morbidities impacted this encounter? (DM, HTN, Smoking, COPD, CAD, Cancer, CVA, ARF, Chemo, Hep., AIDS, mental health diagnosis, sleep apnea, morbid obesity)? @ -None Was patient admitted / discharged? Hospital course, mention meds given and route, prescriptions, significant lab abnormalities, going to OR and other pertinent info. @ -Patient reevaluated with continued symptoms. Patient blood sugar remains elevated. Patient will be admitted for observation. Admission orders placed. Undiagnosed new problem with uncertain prognosis? @ -No Drug Therapy requiring intensive monitoring for toxicity (Heparin, Nitro, Insulin, Cardizem)? @ -No Were any procedures done? @ -No Diagnosis/symptom? @ -vomiting, hyperglycemia Acute, or Chronic, or Acute on Chronic? @ -Acute on chronic, acute on chronic Uncomplicated (without systemic symptoms) or Complicated (systemic symptoms)? @ -Default Side effects of treatment? @ -No Exacerbation, Progression, or Severe Exacerbation? @ -No Poses a threat to life or bodily function? How? (Chest pain, [place], [place], pneumonia, PE, COPD, DKA, ARF, appy, cholecystitis, CVA, Diverticulitis, Homicidal, Suicidal, threat to staff... and all critical care pts) @ -Risk of DKA - Lab Data Result diagrams: 01/10/24 08:48 01/10/24 08:48 Lab Results 01/10/24 01/10/24 01/10/24 Range/Units 08:22 08:23 08:48 WBC 6.2 (3.8-10.6) k/uL RBC 4.14 (3.80-5.40) m/uL Hgb 11.8 (11.4-16.0) gm/dL Hct 38.2 (34.0-46.0) % MCV 92.2 (80.0-100.0) fL MCH 28.5 (25.0-35.0) pg MCHC 30.9 L (31.0-37.0) g/dL RDW 16.1 H (11.5-15.5) % Plt Count 483 H (150-450) k/uL MPV 7.4 Neutrophils % 66 % Lymphocytes % 23 % Monocytes % 5 % Eosinophils % 3 % Basophils % 2 % Neutrophils # 4.1 (1.3-7.7) k/uL Lymphocytes # 1.4 (1.0-4.8) k/uL Monocytes # 0.3 (0-1.0) k/uL Eosinophils # 0.2 (0-0.7) k/uL Basophils # 0.1 (0-0.2) k/uL Hypochromasia Marked Anisocytosis Slight Sodium (137-145) mmol/L Potassium (3.5-5.1) mmol/L Chloride (98-107) mmol/L Carbon Dioxide (22-30) mmol/L Anion Gap mmol/L BUN (7-17) mg/dL Creatinine (0.52-1.04) mg/dL Est GFR (CKD-EPI)AfAm (>60 ml/min/1.73 sqM) Est GFR (CKD-EPI)NonAf (>60 ml/min/1.73 sqM) Glucose (74-99) mg/dL POC Glucose (mg/dL) 237 H 270 H (70-110) mg/dL POC Glu [employer] Machine Worker ID Mj, Nanci [place], Nanci Calcium (8.4-10.2) mg/dL Total Bilirubin (0.2-1.3) mg/dL AST (14-36) U/L ALT (4-34) U/L Alkaline Phosphatase (38-126) U/L Total Protein (6.3-8.2) g/dL Albumin (3.5-5.0) g/dL Amylase (30-110) U/L Lipase (23-300) U/L Urine Color Urine Appearance (Clear) Urine pH (5.0-8.0) Ur Specific [place] (1.001-1.035) Urine Protein (Negative) Urine Glucose (UA) (Negative) Urine Ketones (Negative) Urine Blood (Negative) Urine Nitrite (Negative) Urine Bilirubin (Negative) Urine Urobilinogen (<2.0) mg/dL Ur Leukocyte Esterase (Negative) Urine RBC (0-5) /hpf Urine WBC (0-5) /hpf Ur Squamous Epith Cells (0-4) /hpf Serum Alcohol mg/dL Acetone, Qual (Negative) 01/10/24 01/10/24 01/10/24 Range/Units 08:48 08:48 10:15 WBC (3.8-10.6) k/uL RBC (3.80-5.40) m/uL Hgb (11.4-16.0) gm/dL Hct (34.0-46.0) % MCV (80.0-100.0) fL MCH (25.0-35.0) pg MCHC (31.0-37.0) g/dL RDW (11.5-15.5) % Plt Count (150-450) k/uL MPV Neutrophils % % Lymphocytes % % Monocytes % % Eosinophils % % Basophils % % Neutrophils # (1.3-7.7) k/uL Lymphocytes # (1.0-4.8) k/uL Monocytes # (0-1.0) k/uL Eosinophils # (0-0.7) k/uL Basophils # (0-0.2) k/uL Hypochromasia Anisocytosis Sodium 128 L (137-145) mmol/L Potassium 5.0 (3.5-5.1) mmol/L Chloride 100 (98-107) mmol/L Carbon Dioxide 22 (22-30) mmol/L Anion Gap 6 mmol/L BUN 31 H (7-17) mg/dL Creatinine 0.73 (0.52-1.04) mg/dL Est GFR (CKD-EPI)AfAm >90 (>60 ml/min/1.73 sqM) Est GFR (CKD-EPI)NonAf >90 (>60 ml/min/1.73 sqM) Glucose 583 H* (74-99) mg/dL POC Glucose (mg/dL) 483 H (70-110) mg/dL POC Glu [employer] Worker ID Afsaneh Pena Calcium 8.9 (8.4-10.2) mg/dL Total Bilirubin 0.3 (0.2-1.3) mg/dL AST 34 (14-36) U/L ALT 30 (4-34) U/L Alkaline Phosphatase 128 H (38-126) U/L Total Protein 6.5 (6.3-8.2) g/dL Albumin 3.3 L (3.5-5.0) g/dL Amylase 64 (30-110) U/L Lipase 251 (23-300) U/L Urine Color Colorless Urine Appearance Clear (Clear) Urine pH 7.0 (5.0-8.0) Ur Specific [place] 1.021 (1.001-1.035) Urine Protein 2+ H (Negative) Urine Glucose (UA) 4+ H (Negative) Urine Ketones Negative (Negative) Urine Blood Trace H (Negative) Urine Nitrite Negative (Negative) Urine Bilirubin Negative (Negative) Urine Urobilinogen <2.0 (<2.0) mg/dL Ur Leukocyte Esterase Negative (Negative) Urine RBC 3 (0-5) /hpf Urine WBC <1 (0-5) /hpf Ur Squamous Epith Cells 1 (0-4) /hpf Serum Alcohol <10 mg/dL Acetone, Qual Negative (Negative) 01/10/24 Range/Units 11:25 WBC (3.8-10.6) k/uL RBC (3.80-5.40) m/uL Hgb (11.4-16.0) gm/dL Hct (34.0-46.0) % MCV (80.0-100.0) fL MCH (25.0-35.0) pg MCHC (31.0-37.0) g/dL RDW (11.5-15.5) % Plt Count (150-450) k/uL MPV Neutrophils % % Lymphocytes % % Monocytes % % Eosinophils % % Basophils % % Neutrophils # (1.3-7.7) k/uL Lymphocytes # (1.0-4.8) k/uL Monocytes # (0-1.0) k/uL Eosinophils # (0-0.7) k/uL Basophils # (0-0.2) k/uL Hypochromasia Anisocytosis Sodium (137-145) mmol/L Potassium (3.5-5.1) mmol/L Chloride (98-107) mmol/L Carbon Dioxide (22-30) mmol/L Anion Gap mmol/L BUN (7-17) mg/dL Creatinine (0.52-1.04) mg/dL Est GFR (CKD-EPI)AfAm (>60 ml/min/1.73 sqM) Est GFR (CKD-EPI)NonAf (>60 ml/min/1.73 sqM) Glucose (74-99) mg/dL POC Glucose (mg/dL) 414 H (70-110) mg/dL POC Glu [employer] Worker ID Afsaneh Pena Calcium (8.4-10.2) mg/dL Total Bilirubin (0.2-1.3) mg/dL AST (14-36) U/L ALT (4-34) U/L Alkaline Phosphatase (38-126) U/L Total Protein (6.3-8.2) g/dL Albumin (3.5-5.0) g/dL Amylase (30-110) U/L Lipase (23-300) U/L Urine Color Urine Appearance (Clear) Urine pH (5.0-8.0) Ur Specific [place] (1.001-1.035) Urine Protein (Negative) Urine Glucose (UA) (Negative) Urine Ketones (Negative) Urine Blood (Negative) Urine Nitrite (Negative) Urine Bilirubin (Negative) Urine Urobilinogen (<2.0) mg/dL Ur Leukocyte Esterase (Negative) Urine RBC (0-5) /hpf Urine WBC (0-5) /hpf Ur Squamous Epith Cells (0-4) /hpf Serum Alcohol mg/dL Acetone, Qual (Negative) Disposition Clinical Impression: Nausea and vomiting, Hyperglycemia Disposition: ADMITTED IP TO THIS HOSP Is patient prescribed a controlled substance at d/c from ED?: No Referrals: Dell Pike MD [Primary Care Provider] - 1-2 days Time of Disposition: 13:58
[2024-01-10] MEDS: SODIUM CHLORIDE 0.9% 1,000 ML IV STA (08:49)
[2024-01-10] MEDS: FAMOTIDINE 20 MG/2 ML VIAL IV STA (08:49)
[2024-01-10] MEDS: ONDANSETRON 4 MG/2 ML VIAL IVP STA (08:50)
--- NOTE | 2024-01-10 09:08 | XR ---
EXAMINATION TYPE: XR KUB DATE OF EXAM: 01/10/2024 COMPARISON: NONE HISTORY: Pain TECHNIQUE: Single supine KUB image of the abdomen is obtained FINDINGS: Small bowel demonstrates no evidence for dilatation or air fluid levels. Gas and fecal material is seen in non-distended colon. No convincing evidence for pneumoperitoneum. No unusual calcifications. The lung bases are clear. The osseous structures are intact. IMPRESSION: 1. Overall nonobstructive bowel gas pattern.
[2024-01-10 09:11] LABS: Anisocytosis Slight; Basophils # (A) 0.1 k/uL (0-0.2); Basophils % (A) 2 %; Eosinophils # (A) 0.2 k/uL (0-0.7); Eosinophils % (A) 3 %; HCT 38.2 % (34.0-46.0); HGB 11.8 gm/dL (11.4-16.0); Hypochromasia Marked; Lymphocytes # (A) 1.4 k/uL (1.0-4.8); Lymphocytes % (A) 23 %; MCH 28.5 pg (25.0-35.0); MCHC 30.9 g/dL (31.0-37.0); MCV 92.2 fL (80.0-100.0); Mean Platelet Volume 7.4; Monocytes # (A) 0.3 k/uL (0-1.0); Monocytes % (A) 5 %; Neutrophils # (A) 4.1 k/uL (1.3-7.7); Neutrophils % (A) 66 %; Platelet Count 483 k/uL (150-450); RBC 4.14 m/uL (3.80-5.40); RDW 16.1 % (11.5-15.5); WBC 6.2 k/uL (3.8-10.6)
[2024-01-10] MEDS: MORPHINE SULFATE 4 MG/ML SYRINGE IVP STA ×3 (09:15→14:22)
[2024-01-10 09:55] LABS: ALT 30 U/L (4-34); AST 34 U/L (14-36); African American GFR (CKD) >90 (>60 ml/min/1.73 sqM); Albumin 3.3 g/dL (3.5-5.0); Alcohol <10 mg/dL; Alkaline Phosphatase 128 U/L (38-126); Amylase 64 U/L (30-110); Anion Gap 6 mmol/L; Appearance,Urine Clear (Clear); Bilirubin,Urine Negative (Negative); Blood Urea Nitrogen 31 mg/dL (7-17); Blood,Urine Trace (Negative); Calcium 8.9 mg/dL (8.4-10.2); Carbon Dioxide 22 mmol/L (22-30); Chloride 100 mmol/L (98-107); Color,Urine Colorless; Glucose,Urine (UA) 4+ (Negative); Ketones,Urine Negative (Negative); Leukocyte Esterase,Urine Negative (Negative); Lipase 251 U/L (23-300); Nitrite,Urine Negative (Negative); Non-African American GFR(CKD) >90 (>60 ml/min/1.73 sqM); Protein,Urine 2+ (Negative); RBC,Urine 3 /hpf (0-5); Sodium 128 mmol/L (137-145); Specific Gravity,Urine 1.021 (1.001-1.035); Squamous Epithelial Cell,Urine 1 /hpf (0-4); Total Bilirubin 0.3 mg/dL (0.2-1.3); Total Protein 6.5 g/dL (6.3-8.2); Urobilinogen,Urine <2.0 mg/dL (<2.0); WBC,Urine <1 /hpf (0-5)
[2024-01-10 10:10] LABS: Glucose 583 mg/dL (74-99)
[2024-01-10 10:18] LABS: Glucose,Whole Blood 483 mg/dL (70-110)
[2024-01-10] MEDS: INSULIN REGULAR 100 UNIT/ML VIAL (IV) IV ONE (10:32)
[2024-01-10 11:26] LABS: Glucose,Whole Blood 414 mg/dL (70-110)
[2024-01-10] MEDS: METOCLOPRAMIDE 5 MG/ML 2 ML VIAL IVP STA (11:32)
[2024-01-10 14:20] LABS: Glucose,Whole Blood 309 mg/dL (70-110)
[2024-01-10] MEDS: SODIUM CHLORIDE 0.9% 1,000 ML IV ONE (14:20)
[2024-01-10] MEDS: SODIUM CHLORIDE 0.9% 1,000 ML IV SCH (14:25)
[2024-01-10] MEDS: INSULIN REGULAR 100 UNIT in SODIUM CHLORIDE 0.9% 100 ML IV SCH (14:52)
[2024-01-10] MEDS ORDERED: LOPERAMIDE 2 MG CAP PO PRN (15:14)
[2024-01-10 15:42] LABS: Glucose,Whole Blood 264 mg/dL (70-110)
[2024-01-10 15:53] LABS: African American GFR (CKD) >90 (>60 ml/min/1.73 sqM); Anion Gap 3 mmol/L; Blood Urea Nitrogen 29 mg/dL (7-17); Carbon Dioxide 20 mmol/L (22-30); Chloride 109 mmol/L (98-107); Glucose 274 mg/dL (74-99); Non-African American GFR(CKD) >90 (>60 ml/min/1.73 sqM); Potassium 3.9 mmol/L (3.5-5.1); Sodium 132 mmol/L (137-145)
[2024-01-10] MEDS: HYDROcodone/APAP 7.5-325MG 1 EACH TAB PO PRN (15:55)
[2024-01-10] MEDS: SCOPOLAMINE 1 MG/72 HR PATCH TRANSDERM SCH (16:05)
[2024-01-10 16:31] LABS: Glucose,Whole Blood 187 mg/dL (70-110)
[2024-01-10] MEDS: INSULIN DETEMIR (LEVEMIR) 100 UNIT/ML SYR SQ ONE (17:05)
[2024-01-10] MEDS: INSULIN ASPART (NovoLOG) 100 UNIT/ML VIAL SQ SCH (17:05)
[2024-01-10] MEDS ORDERED: INSULIN ASPART (NovoLOG) 100 UNIT/ML VIAL SQ SCH (17:30)
[2024-01-10] MEDS ORDERED: PROCHLORPERAZINE 10 MG TAB PO SCH (17:30)
[2024-01-10] MEDS ORDERED: D5-0.45% NACL WITH KCL 20MEQ/L 1,000 ML IV SCH (18:00)
[2024-01-10] MEDS: PANTOPRAZOLE 40 MG TABLET PO SCH (18:06)
[2024-01-10] MEDS: METOCLOPRAMIDE 10 MG TAB PO SCH (18:55)
[2024-01-10 19:37] LABS: Glucose,Whole Blood 106 mg/dL (70-110)
[2024-01-10] MEDS: FAMOTIDINE 20 MG/2 ML VIAL IV SCH (19:44)
[2024-01-10] MEDS: ALPRAZolam 0.25 MG TAB PO PRN (19:44)
[2024-01-10] MEDS: MIRTAZAPINE 15 MG TAB PO SCH (19:44)
[2024-01-10] MEDS: IPRATROPIUM-ALBUTEROL 3 ML NEB INHALATION SCH (19:50)
[2024-01-10 20:19] LABS: African American GFR (CKD) >90 (>60 ml/min/1.73 sqM); Anion Gap 3 mmol/L; Blood Urea Nitrogen 25 mg/dL (7-17); Carbon Dioxide 19 mmol/L (22-30); Chloride 112 mmol/L (98-107); Glucose 110 mg/dL (74-99); Non-African American GFR(CKD) >90 (>60 ml/min/1.73 sqM); Potassium 3.9 mmol/L (3.5-5.1); Sodium 134 mmol/L (137-145)
--- NOTE | 2024-01-10 21:06 | PN ---
PROGRESS NOTE SUBJECTIVE: We will stop her Dilaudid for we are going to increase her diet to regular diet. If she keeps food down, is going to be discharged home. EGD showed no obstruction. OBJECTIVE: CARDIOVASCULAR: S1, S2. LUNGS: Transmitted upper sounds. GI: Soft. HEMATOLOGY: Negative Homans. ABDOMEN: Distended. ASSESSMENT: History of deep venous thrombosis, pulmonary embolism, status post Oneil procedure, progressive nausea and vomiting, status post esophageal dilation. The patient possibly will go home once nausea and vomiting are discontinued. Advance diet. Cleared by Surgery for discharge. Probably go home today. MMODL / IJN: [id number] /
[2024-01-10] MEDS: HYDROmorphone 0.5 MG/0.5 ML SYRINGE IVP PRN (21:34)
--- NOTE | 2024-01-10 22:03 | PN ---
PROGRESS NOTE SUBJECTIVE: Lesa Patterson came to the hospital, 53-year-old white female, hyperglycemia, nonketotic, gastroparesis, diabetes. Consulted Dr. Garzon for possible PEG tube adjustment into the duodenum from stomach. HOME MEDICINES: 1. Xanax 0.25 b.i.d. 2. Lipitor 20 daily. 3. Cymbalta 30 daily. 4. DuoNeb q.i.d. 5. Remeron 30 daily. 6. Folic acid 1 mg daily. 7. Iron sulfate 65 mg. 8. Lantus 20 units daily. 9. Sodium bicarb. ALLERGIES: Fentanyl. REVIEW OF SYSTEMS: A 14-point review of systems otherwise negative. PAST MEDICAL HISTORY: Diabetes mellitus, hypertension, musculoskeletal disorder, history of MRSA, VRE, cholecystectomy, orthopedic surgery, and tubal ligation. SOCIAL HISTORY: Current everyday smoker. FAMILY HISTORY: Anxiety, atrial fibrillation , unknown father. OBJECTIVE: VITAL SIGNS: Temperature 97.9, pulse 95 to 110. CARDIOVASCULAR: S1, S2. LUNGS: Transmitted upper sounds. GI: Soft, thin, cachectic. NEUROLOGIC: Cranial nerves intact. PSYCH: Fair mood and affect. IMAGING: EKG, sinus rhythm. LABORATORY DATA: Sodium 128, potassium 5.0, BUN of 31, creatinine 0.73, platelets 583. ASSESSMENT: Hyperglycemia, nonketotic, dehydration, gastroparesis, nausea, and vomiting. Consult surgery for PEG tube adjustment and surgery. Please see further orders. Rehydrate, for vomiting. Prognosis guarded. MMODL / IJN: [id number] /
[2024-01-11 05:41] LABS: Glucose,Whole Blood 197 mg/dL (70-110)
[2024-01-11] MEDS: INSULIN DETEMIR (LEVEMIR) 100 UNIT/ML SYR SQ SCH (06:07)
[2024-01-11] MEDS: FOLIC ACID 1 MG TAB PO SCH (08:48)
[2024-01-11] MEDS: ATORVASTATIN 20 MG TAB PO SCH (08:48)
[2024-01-11] MEDS: ONDANSETRON 4 MG TAB PO SCH (08:48)
[2024-01-11] MEDS: amLODIPine 5 MG TAB PO SCH (08:48)
[2024-01-11] MEDS: POTASSIUM BICARBONATE/CIT AC 20 MEQ TABLET.EFF PO SCH (08:49)
[2024-01-11] MEDS: DULoxetine HCL 30 MG CAPSULE.DR PO SCH (08:49)
[2024-01-11 11:01] LABS: Glucose,Whole Blood 223 mg/dL (70-110)
[2024-01-11] MEDS: ONDANSETRON 4 MG/2 ML VIAL IVP PRN (11:46)
[2024-01-11 13:29] LABS: Glucose,Whole Blood 194 mg/dL (70-110)
[2024-01-11] MEDS: FERROUS SULFATE 325 MG TAB PO SCH (13:29)
[2024-01-11 17:23] LABS: Glucose,Whole Blood 153 mg/dL (70-110)
[2024-01-11] MEDS: FAMOTIDINE 20 MG TAB PO SCH (20:34)
[2024-01-11 21:14] LABS: Glucose,Whole Blood 172 mg/dL (70-110)
[2024-01-11] MEDS: hydrALAZINE HCL 20 MG/ML 1 ML VIAL IVP PRN (21:15)
[2024-01-11] MEDS: SODIUM CHLORIDE 0.9% 1,000 ML IV SCH (21:29)
--- NOTE | 2024-01-12 01:54 | PN ---
PROGRESS NOTE SUBJECTIVE: She had nausea, vomiting, hyperglycemia. Dr. Garzon is just here on Saturday for possible surgery next week to replace the PEG tube into the duodenum. Start nausea and vomiting. Sugars are better on better control. She is on Accu-Chek protocol. She is thin, cachectic. She is stressed out. OBJECTIVE: CARDIOVASCULAR: S1, S2. LUNGS: Scattered wheeze and rhonchi. HEMATOLOGY: Negative for Homans. GI: Soft. PEG tube replaced. ASSESSMENT: Severe gastroparesis, esophageal dysmobility, on PEG tube feeding, nothing by mouth now. Since she has been vomiting, scopolamine patch, Reglan, diabetes under better control. Wait for possible surgery next week. MMODL / IJN: [id number] /
--- NOTE | 2024-01-12 02:02 | P.GSCN ---
History of Present Illness Consult date: 01/11/24 History of present illness: Patient is a 53-year-old female present to the emergency department with concern for nausea vomiting. Onset of symptoms was yesterday. Patient has chronic similar symptoms associated with gastroparesis and diabetes. Patient states blood sugar was 500 yesterday and read high today. Patient request pain medication and nausea medicine. 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 MDRO Source:: Urine VRE and ESBL, MRSA-ABD Past Surgical History: Cholecystectomy, Orthopedic Surgery, Tubal Ligation Additional Past Surgical History / Comment(s): rt shoulder, J tube placement Past Anesthesia/Blood Transfusion Reactions: No Reported Reaction Additional Past Anesthesia/Blood Transfusion Reaction / Comm: UNK FAMILY HX Past Psychological History: Anxiety Smoking Status: Current every day smoker Past Alcohol Use History: None Reported Additional Past Alcohol Use History / Comment(s): STARTED SMOKING 1987, smokes about 6 cigs/day Past Drug Use History: None Reported Additional Drug Use History / Comment(s): Patient denies using marijuana. - Past Family History Father History Unknown: Yes Additional Family Medical History / Comment(s): unknown-adopted Mother History Unknown: Yes Additional Family Medical History / Comment(s): unknown- adopted Medications and Allergies Home Medications Medication Instructions Recorded Confirmed Type ALPRAZolam [Xanax] 0.25 mg PO BID PRN 05/12/23 01/10/24 History Atorvastatin [Lipitor] 20 mg PO DAILY 05/12/23 01/10/24 History DULoxetine HCL [Cymbalta] 30 mg PO DAILY 05/12/23 01/10/24 History Insulin Lispro [humaLOG Kwikpen] 2 unit SQ AC-TID 05/12/23 01/10/24 History Ipratropium-Albuterol Nebulize 3 ml INHALATION RT-BID 05/12/23 01/10/24 History [Duoneb 0.5 mg-3 mg/3 ml Soln] Mirtazapine [Remeron] 30 mg PO HS 05/12/23 01/10/24 History Metoclopramide [Reglan] 10 mg PO ACHS 30 Days #120 tab 05/15/23 01/10/24 Rx Pantoprazole [Protonix] 40 mg PO AC-BID 30 Days #60 tab 05/21/23 01/10/24 Rx Folic Acid 1 mg PO DAILY 06/15/23 01/10/24 History Ondansetron [Zofran] 4 mg PO DAILY 30 Days #30 tab 06/26/23 01/10/24 Rx HYDROcodone/APAP 7.5-325MG [Hodgen 1 tab PO TID PRN 08/25/23 01/10/24 History 7.5-325] Acetaminophen Tab [Tylenol] 650 mg PO Q6HR PRN tab 10/16/23 01/10/24 Rx Loperamide [Imodium] 2 mg PO QID PRN cap 10/16/23 01/10/24 Rx Prochlorperazine Maleate 10 mg PO AC-BID 30 Days #60 tab 10/30/23 01/10/24 Rx Ferrous Sulfate [Iron (65 MG 325 mg PO DAILY 12/09/23 01/10/24 History Elemental)] Insulin Glargine [Lantus Vial] 4 unit SQ DAILY 12/09/23 01/10/24 History Potassium Bicarb-Citric Acid 20 meq PO DAILY 12/09/23 01/10/24 History (Effer-K) 20meq Tab Scopolamine [Scopolamine 1 MG/72 1 patch TRANSDERM Q72H 12/09/23 01/10/24 History HR patch] Doxycycline [Vibramycin] 100 mg PO BID 30 Days #60 cap 12/19/23 01/10/24 Rx amLODIPine [Norvasc] 5 mg PO DAILY 90 Days #90 tab 12/19/23 01/10/24 Rx Allergies Allergy/AdvReac Type Severity Reaction Status Date / Time fentanyl Allergy Unknown Verified 01/10/24 10:27 Surgical - Exam Osteopathic Statement: *. No significant issues noted on an osteopathic structural exam other than those noted in the History and Physical/Consult. Vital Signs Temp Pulse Resp BP Pulse Ox 97.9 F 110 H 16 139/97 99 01/10/24 08:17 01/10/24 08:17 01/10/24 08:17 01/10/24 08:17 01/10/24 08:17 gen: nad cv: rrr pul: non labored breathing abd: soft, non tender, non distended - General cachectic, chronically ill Results - Labs 01/10/24 08:48 01/10/24 19:47 Abnormal Lab Results - Last 24 Hours (Table) 01/11/24 01/11/24 01/11/24 Range/Units 05:40 10:59 13:23 POC Glucose (mg/dL) 197 H 223 H 194 H (70-110) mg/dL 01/11/24 01/11/24 Range/Units 17:21 21:13 POC Glucose (mg/dL) 153 H 172 H (70-110) mg/dL Assessment and Plan Assessment: 53 yo female well known to surgery service severe gastroparesis recommend gastric pacemaker advance diet as tolerated no surgical intervention Time with Patient: Less than 30
[2024-01-12 03:23] LABS: Anisocytosis Slight; Basophils # (A) 0.1 k/uL (0-0.2); Basophils % (A) 1 %; Eosinophils # (A) 0.1 k/uL (0-0.7); Eosinophils % (A) 2 %; HGB 11.1 gm/dL (11.4-16.0); Hypochromasia Marked; Lymphocytes # (A) 1.3 k/uL (1.0-4.8); Lymphocytes % (A) 20 %; MCH 27.6 pg (25.0-35.0); MCV 91.9 fL (80.0-100.0); Mean Platelet Volume 7.7; Monocytes # (A) 0.3 k/uL (0-1.0); Monocytes % (A) 4 %; Neutrophils # (A) 4.8 k/uL (1.3-7.7); Neutrophils % (A) 72 %; Platelet Count 410 k/uL (150-450); RBC 4.02 m/uL (3.80-5.40); RDW 16.5 % (11.5-15.5); WBC 6.6 k/uL (3.8-10.6)
[2024-01-12 03:40] LABS: ALT 25 U/L (4-34); AST 32 U/L (14-36); African American GFR (CKD) >90 (>60 ml/min/1.73 sqM); Albumin 2.6 g/dL (3.5-5.0); Albumin/Globulin Ratio 0.9; Alkaline Phosphatase 102 U/L (38-126); Anion Gap 2 mmol/L; Blood Urea Nitrogen 15 mg/dL (7-17); Calcium 8.3 mg/dL (8.4-10.2); Carbon Dioxide 24 mmol/L (22-30); Chloride 107 mmol/L (98-107); Globulin 2.9 g/dL; Glucose 230 mg/dL (74-99); Non-African American GFR(CKD) >90 (>60 ml/min/1.73 sqM); Potassium 3.7 mmol/L (3.5-5.1); Sodium 133 mmol/L (137-145); Total Bilirubin 0.3 mg/dL (0.2-1.3); Total Protein 5.5 g/dL (6.3-8.2)
[2024-01-12 06:52] LABS: Glucose,Whole Blood 240 mg/dL (70-110)
[2024-01-12 12:23] LABS: Glucose,Whole Blood 219 mg/dL (70-110)
--- NOTE | 2024-01-12 16:49 | P.PN ---
Subjective Progress Note Date: 01/12/24 CHIEF COMPLAINT: Intractable nausea and vomiting HISTORY OF PRESENT ILLNESS: The patient is a 53-year-old female with intractable nausea and vomiting gastroparesis. She is currently on tube feeds. She is tolerating tube feeds. She reports her nausea and vomiting is resolved today. Tube feeds at 30 cc/h. ROS: No bowel movements. No fevers or chills. No new chest pain. No productive sputum PHYSICAL EXAM: VITAL SIGNS: Reviewed CONSTITUTIONAL: Well developed and in no acute distress. EYES: Conjuctivae without sclera icterus. Extraocular movements grossly intact. HEAD, EARS, NOSE, THROAT: Moist buccal mucosa. Head is atraumatic, normocephalic. Hears conversational speech. No nasal drainage. RESPIRATORY: Non-labored respirations and equal bilateral excursions. CARDIOVASCULAR: Palpable 2+ radial pulses. ABDOMEN: Feeding tube clean dry intact. No peritonitis. MUSCULOSKELETAL: No gross deformity of the lower extremities noted. No clubbing. No cyanosis. SKIN: Good skin turgor. Well perfused. NEUROLOGIC: Cranial nerves II through XII grossly intact. No focal or lateralizing signs. PSYCH: Appropriate affect. Alert and oriented to person, place and time. CLINICAL LABS: Reviewed. WBC normal. ASSESSMENT: 1. Intractable nausea and vomiting due to gastroparesis PLAN: 1. Patient reports she is scheduled to undergo conversion of gastrostomy tube to gastrojejunostomy tube. 2. Will need to hold tube feeds tonight. Objective - Vital Signs Vital signs: Vital Signs Temp 98.4 F 01/12/24 14:43 Pulse 116 H 01/12/24 14:43 Resp 15 01/12/24 14:43 BP 120/75 01/12/24 14:43 Pulse Ox 96 01/12/24 14:43 FiO2 Intake & Output 01/11/24 01/12/24 01/12/24 18:59 06:59 18:59 Intake Total 990 Balance 990 Weight 36.2 kg Intake: Intake, IV Titration 400 Amount Sodium Chloride 0.9% 1, 400 000 ml @ 50 mls/hr IV . Q20H [facility] Rx#:[id number] Tube Feeding 590 Other: Voiding Method Toilet Diaper # Emeses 2 - Labs CBC & Chem 7: 01/12/24 03:03 01/12/24 03:03 Labs: Abnormal Lab Results - Last 24 Hours (Table) 01/11/24 01/11/24 01/12/24 Range/Units 17:21 21:13 03:03 Hgb 11.1 L (11.4-16.0) gm/dL MCHC 30.0 L (31.0-37.0) g/dL RDW 16.5 H (11.5-15.5) % Sodium (137-145) mmol/L Glucose (74-99) mg/dL POC Glucose (mg/dL) 153 H 172 H (70-110) mg/dL Calcium (8.4-10.2) mg/dL Total Protein (6.3-8.2) g/dL Albumin (3.5-5.0) g/dL 01/12/24 01/12/24 01/12/24 Range/Units 03:03 06:52 12:21 Hgb (11.4-16.0) gm/dL MCHC (31.0-37.0) g/dL RDW (11.5-15.5) % Sodium 133 L (137-145) mmol/L Glucose 230 H (74-99) mg/dL POC Glucose (mg/dL) 240 H 219 H (70-110) mg/dL Calcium 8.3 L (8.4-10.2) mg/dL Total Protein 5.5 L (6.3-8.2) g/dL Albumin 2.6 L (3.5-5.0) g/dL
--- NOTE | 2024-01-12 16:50 | P.PN ---
Subjective Progress Note Date: 01/12/24 Principal diagnosis: Left hand cellulitis Patient is a 53-year-old female with multiple comorbidities including diabetic gastroparesis recurrent admission to the hospital and has been treated for left hand cellulitis now presented to hospital with acute nausea vomiting abdominal pain infectious was consulted regarding left hand cellulitis On today's evaluation that is 01/12/2024,the patient remains to be afebrile, patient is on room air not requiring supplemental oxygen and denies any shortness of breath no chest pain or cough.Patient continued complaint of nausea and vomiting as well abdominal pain and worsening diarrhea has been reported denies pain to the left hand with no swelling or redness. Patient did have white count of 6.6, creatinine 0.61 Objective - Vital Signs Vital signs: Vital Signs Temp 98.4 F 01/12/24 14:43 Pulse 116 H 01/12/24 14:43 Resp 15 01/12/24 14:43 BP 120/75 01/12/24 14:43 Pulse Ox 96 01/12/24 14:43 FiO2 Intake & Output 01/11/24 01/12/24 01/12/24 18:59 06:59 18:59 Intake Total 990 Balance 990 Weight 36.2 kg Intake: Intake, IV Titration 400 Amount Sodium Chloride 0.9% 1, 400 000 ml @ 50 mls/hr IV . Q20H [facility] Rx#:[id number] Tube Feeding 590 Other: Voiding Method Toilet Diaper # Emeses 2 - Exam GENERAL DESCRIPTION: Middle-aged female lying in bed in no distress RESPIRATORY SYSTEM: Unlabored breathing , decreased breath sounds at bases HEART: S1 S2 regular rate and rhythm , ABDOMEN: Soft , no tenderness EXTREMITIES: Left hand with no swelling redness or any drainage - Labs CBC & Chem 7: 01/15/24 04:21 01/15/24 04:21 Labs: Abnormal Lab Results - Last 24 Hours (Table) 01/11/24 01/11/24 01/12/24 Range/Units 17:21 21:13 03:03 Hgb 11.1 L (11.4-16.0) gm/dL MCHC 30.0 L (31.0-37.0) g/dL RDW 16.5 H (11.5-15.5) % Sodium (137-145) mmol/L Glucose (74-99) mg/dL POC Glucose (mg/dL) 153 H 172 H (70-110) mg/dL Calcium (8.4-10.2) mg/dL Total Protein (6.3-8.2) g/dL Albumin (3.5-5.0) g/dL 01/12/24 01/12/24 01/12/24 Range/Units 03:03 06:52 12:21 Hgb (11.4-16.0) gm/dL MCHC (31.0-37.0) g/dL RDW (11.5-15.5) % Sodium 133 L (137-145) mmol/L Glucose 230 H (74-99) mg/dL POC Glucose (mg/dL) 240 H 219 H (70-110) mg/dL Calcium 8.3 L (8.4-10.2) mg/dL Total Protein 5.5 L (6.3-8.2) g/dL Albumin 2.6 L (3.5-5.0) g/dL Assessment and Plan (1) Cellulitis of left wrist Status: Acute Code(s): L03.114 - CELLULITIS OF LEFT UPPER LIMB SNOMED Code(s): 64878242278237811 Plan: 1patient presented hospital with acute nausea and vomiting possible related to her diabetic gastroparesis recently did have an EGD that was reported to be negative being managed by surgical team 2patient also have a left hand cellulitis that has been adequately treated as currently no evidence of any swelling and redness patient seems to be doing well off antibiotics and monitor the patient closely off antibiotic Patient will follow up as needed Dictation was produced using [employer] dictation software. please excuse any grammatical, word or spelling errors. Time with Patient: Less than 30
[2024-01-12 17:32] LABS: Glucose,Whole Blood 360 mg/dL (70-110)
[2024-01-12 20:45] LABS: Glucose,Whole Blood 193 mg/dL (70-110)
--- NOTE | 2024-01-13 01:42 | PN ---
PROGRESS NOTE SUBJECTIVE: She has nausea and vomiting with gastroparesis. We made her n.p.o. yesterday. She is on tube feedings. She is supposed to get a possible surgery with a PEG tube placed to the duodenum tomorrow. LABORATORY DATA: Sodium 137, potassium 3.7, BUN is 15, creatinine is 0.61, albumin is 2.6. OBJECTIVE: VITAL SIGNS: Blood pressure 100/68; O2 saturation 97% on room air; pulse 100 to 118; temperature 97.7. CARDIOVASCULAR: S1, S2. LUNGS: Transmitted upper sounds. GI: Soft. HEMATOLOGY: Negative for Homans. PSYCH: Fair mood and affect. NEUROLOGIC: Alert and oriented x3. ASSESSMENT AND PLAN: Continue current treatments with tube feedings. Wait for surgical evaluation for possible PEG tube relocation to the duodenum tomorrow. Pain control, anxiety control, breathing control for COPD with nebulizer treatments. Prognosis, guarded. MMFLORENTINL / JULIANEN: [id number] /
[2024-01-13 06:08] LABS: Glucose,Whole Blood 252 mg/dL (70-110)
[2024-01-13 08:42] LABS: Basophils # (A) 0.09 X 10*3/uL (0.00-0.10); Basophils % (A) 1.5 %; Eosinophils # (A) 0.16 X 10*3/uL (0.04-0.35); Eosinophils % (A) 2.6 %; HCT 34.9 % (37.2-46.3); HGB 10.7 g/dL (12.0-15.0); Lymphocytes # (A) 1.47 X 10*3/uL (0.90-5.00); Lymphocytes % (A) 23.8 %; MCH 28.5 pg (27.0-32.0); MCHC 30.7 g/dL (32.0-37.0); MCV 92.8 FL (80.0-97.0); Monocytes # (A) 0.28 X 10*3/uL (0.20-1.00); Monocytes % (A) 4.5 %; NRBC Per 100 WBC 0 X 10*3/uL (0.00-0.01); Neutrophils # (A) 4.15 X 10*3/uL (1.80-7.70); Neutrophils % (A) 67.3 %; Platelet Count 330 X 10*3/uL (140-440); RBC 3.76 X 10*6/uL (4.10-5.20); RDW 15.9 % (11.5-14.5); WBC 6.17 X 10*3/uL (4.50-10.00)
[2024-01-13 09:21] LABS: ALT 31 U/L (8-44); AST 33 U/L (13-35); Albumin 2.9 g/dL (3.8-4.9); Albumin/Globulin Ratio 1.04 Ratio (1.60-3.17); Alkaline Phosphatase 107 U/L (41-126); BUN/Creat Ratio 21.88 Ratio (12.00-20.00); Blood Urea Nitrogen 17.5 mg/dL (9.0-27.0); Calcium 8.5 mg/dL (8.7-10.3); Carbon Dioxide 21.9 mmol/L (21.6-31.8); Chloride 103 mmol/L (96-109); Globulin 2.8 g/dL (1.6-3.3); Glucose 277 mg/dL (70-110); Potassium 4.5 mmol/L (3.5-5.5); Sodium 135 mmol/L (135-145); Total Bilirubin <0.2 mg/dL (0.3-1.2); Total Protein 5.7 g/dL (6.2-8.2)
[2024-01-13 11:31] LABS: Glucose,Whole Blood 118 mg/dL (70-110)
--- NOTE | 2024-01-13 15:28 | P.PN ---
Subjective Progress Note Date: 01/13/24 CHIEF COMPLAINT: Intractable nausea and vomiting HISTORY OF PRESENT ILLNESS: The patient is a 53-year-old female with intractable nausea and vomiting and history of gastroparesis. She is currently on tube feeds. She is tolerating tube feeds. PHYSICAL EXAM: VITAL SIGNS: Reviewed. GENERAL: Well-developed in no acute distress. HEENT: No sclera icterus. Extraocular movements grossly intact. Moist buccal mucosa. Head is atraumatic, normocephalic. ABDOMEN: Soft. Nondistended. NEUROLOGIC: Alert and oriented. Cranial nerves II through XII grossly intact. ASSESSMENT: 1. Intractable nausea and vomiting due to gastroparesis PLAN: -Patient scheduled for conversion of PEG tube to gastrojejunostomy tube with Dr. Garzon on Saturday -Patient's tube feedings and diet can be resumed Physician Research Environmental Engineer note has been reviewed by physician. Signing provider agrees with the documented findings, assessment, and plan of care. Objective - Vital Signs Vital signs: Vital Signs Temp 98.0 F 01/13/24 14:33 Pulse 117 H 01/13/24 14:33 Resp 16 01/13/24 14:33 BP 129/82 01/13/24 14:33 Pulse Ox 98 01/13/24 14:33 FiO2 Intake & Output 01/12/24 01/13/24 01/13/24 18:59 06:59 18:59 Intake Total 118 Balance 118 Weight 36.1 kg 36.1 kg Intake: Oral 118 Other: Voiding Method Diaper Diaper - Labs CBC & Chem 7: 01/13/24 06:06 01/13/24 06:06 Labs: Abnormal Lab Results - Last 24 Hours (Table) 01/12/24 01/12/24 01/13/24 Range/Units 17:31 20:44 06:05 RBC (4.10-5.20) X 10*6/uL Hgb (12.0-15.0) g/dL Hct (37.2-46.3) % MCHC (32.0-37.0) g/dL RDW (11.5-14.5) % BUN/Creatinine Ratio (12.00-20.00) Ratio Glucose (70-110) mg/dL POC Glucose (mg/dL) 360 H 193 H 252 H (70-110) mg/dL Calcium (8.7-10.3) mg/dL Total Bilirubin (0.3-1.2) mg/dL Total Protein (6.2-8.2) g/dL Albumin (3.8-4.9) g/dL Albumin/Globulin Ratio (1.60-3.17) Ratio 01/13/24 01/13/24 01/13/24 Range/Units 06:06 06:06 11:29 RBC 3.76 L (4.10-5.20) X 10*6/uL Hgb 10.7 L (12.0-15.0) g/dL Hct 34.9 L (37.2-46.3) % MCHC 30.7 L (32.0-37.0) g/dL RDW 15.9 H (11.5-14.5) % BUN/Creatinine Ratio 21.88 H (12.00-20.00) Ratio Glucose 277 H (70-110) mg/dL POC Glucose (mg/dL) 118 H (70-110) mg/dL Calcium 8.5 L (8.7-10.3) mg/dL Total Bilirubin <0.2 L (0.3-1.2) mg/dL Total Protein 5.7 L (6.2-8.2) g/dL Albumin 2.9 L (3.8-4.9) g/dL Albumin/Globulin Ratio 1.04 L (1.60-3.17) Ratio
[2024-01-13 17:05] LABS: Glucose,Whole Blood 253 mg/dL (70-110)
[2024-01-13 20:56] LABS: Glucose,Whole Blood 314 mg/dL (70-110)
[2024-01-13] MEDS: INSULIN ASPART (NovoLOG) 100 UNIT/ML VIAL SQ ONE (22:12)
--- NOTE | 2024-01-14 01:59 | PN ---
PROGRESS NOTE SUBJECTIVE: This is a 53-year-old white female, scheduled for gastrojejunostomy, PEG tube diversion to prevent the vomiting tomorrow. She came with diabetic nonketotic severe hyperglycemia, which improved immediately with fluids and hydration. She came in with severe gastroparesis. Sat 98 on room air. OBJECTIVE: VITAL SIGNS: Blood pressure 129/83, respirations 16, pulse rate is 100 to 120, temp 98. CARDIOVASCULAR: S1, S2. LUNGS: Transmitted upper sounds. GI: Soft. HEMATOLOGY: Negative for Homans. PSYCH: Fair mood and affect. Continue current treatment. Prognosis is guarded. Follow up in next 24 to 48 hours after surgery with Dr. Garzon tomorrow or on Saturday. Continue PEG tube feedings only. Clear liquids only, if no vomiting occurs she can continue clear liquids. MMODL / IJN: [id number] /
[2024-01-14 06:07] LABS: Glucose,Whole Blood 266 mg/dL (70-110)
[2024-01-14 12:09] LABS: Glucose,Whole Blood 320 mg/dL (70-110)
--- NOTE | 2024-01-14 13:08 | P.PN ---
Subjective Progress Note Date: 01/14/24 CHIEF COMPLAINT: Intractable nausea and vomiting HISTORY OF PRESENT ILLNESS: The patient is a 53-year-old female with intractable nausea and vomiting and history of gastroparesis. She is currently on tube feeds. She is tolerating tube feeds. She continues to complain of her chronic pain and nausea. No vomiting. Mildly tachycardic PHYSICAL EXAM: VITAL SIGNS: Reviewed. GENERAL: Well-developed in no acute distress. ABDOMEN: Soft. Nondistended. NEUROLOGIC: Alert and oriented. Cranial nerves II through XII grossly intact. ASSESSMENT: 1. Intractable nausea and vomiting due to gastroparesis PLAN: -Patient scheduled for conversion of PEG tube to gastrojejunostomy tube with Dr. Garzon on Saturday -N.p.o. after midnight and hold tube feeds after midnight Physician Quarter Folder note has been reviewed by physician. Signing provider agrees with the documented findings, assessment, and plan of care. Objective - Vital Signs Vital signs: Vital Signs Temp 98.3 F 01/14/24 07:00 Pulse 108 H 01/14/24 08:50 Resp 16 01/14/24 07:00 BP 146/81 01/14/24 07:00 Pulse Ox 98 01/14/24 07:00 FiO2 Intake & Output 01/13/24 01/14/24 01/14/24 18:59 06:59 18:59 Intake Total 236 358 Balance 236 358 Weight 36.1 kg 37.1 kg 37.1 kg Intake: Oral 236 358 Other: Voiding Method Diaper Diaper # Voids 2 - Labs CBC & Chem 7: 01/13/24 06:06 01/13/24 06:06 Labs: Abnormal Lab Results - Last 24 Hours (Table) 01/13/24 01/13/24 01/14/24 Range/Units 17:03 20:54 06:06 POC Glucose (mg/dL) 253 H 314 H 266 H (70-110) mg/dL 01/14/24 Range/Units 12:07 POC Glucose (mg/dL) 320 H (70-110) mg/dL
[2024-01-14 17:07] LABS: Glucose,Whole Blood 291 mg/dL (70-110)
--- NOTE | 2024-01-15 01:29 | PN ---
PROGRESS NOTE SUBJECTIVE: Hyperglycemia, progressive emesis, gastroparesis. She is going to get a gastrojejunostomy tube placed tomorrow for persistent nausea and vomiting. OBJECTIVE: CARDIOVASCULAR: S1, S2. LUNGS: Transmitted upper sounds. HEMATOLOGY: Negative for Homans. PSYCH: Fair mood and affect. PEG tube placed in the stomach. Severe gastroparesis, nausea, vomiting, dehydration, COPD, gastrojejunostomy for recurrent admissions for nausea, vomiting, dehydration. Prognosis guarded. MMODL / IJN: [id number] /
[2024-01-15 04:51] LABS: HCT 35.7 % (34.0-46.0); HGB 11.3 gm/dL (11.4-16.0); Hypochromasia Marked; MCH 29.2 pg (25.0-35.0); MCHC 31.6 g/dL (31.0-37.0); MCV 92.4 fL (80.0-100.0); Mean Platelet Volume 7.6; Platelet Count 324 k/uL (150-450); RBC 3.86 m/uL (3.80-5.40); RDW 15.5 % (11.5-15.5); WBC 6.7 k/uL (3.8-10.6)
[2024-01-15 05:07] LABS: African American GFR (CKD) >90 (>60 ml/min/1.73 sqM); Anion Gap 3 mmol/L; Blood Urea Nitrogen 27 mg/dL (7-17); Calcium 8.7 mg/dL (8.4-10.2); Carbon Dioxide 26 mmol/L (22-30); Chloride 100 mmol/L (98-107); Glucose 419 mg/dL (74-99); Non-African American GFR(CKD) 89 (>60 ml/min/1.73 sqM); Potassium 4.9 mmol/L (3.5-5.1); Sodium 129 mmol/L (137-145)
[2024-01-15 05:34] LABS: Glucose,Whole Blood 426 mg/dL (70-110)
[2024-01-15 06:54] LABS: Glucose,Whole Blood 446 mg/dL (70-110)
[2024-01-15 08:30] LABS: Glucose,Whole Blood 338 mg/dL (70-110)
[2024-01-15 09:07] LABS: Glucose,Whole Blood 327 mg/dL (70-110)
[2024-01-15] MEDS: LACTATED RINGERS 1,000 ML IV ONE (09:10)
[2024-01-15] MEDS: LACTATED RINGERS 1,000 ML BAG IV STA (09:10)
[2024-01-15] MEDS ORDERED: ceFAZolin 1 GM/50 ML BAG (PMX) ONE (09:52)
[2024-01-15] MEDS ORDERED: SUCCINYLCHOLINE CHLORIDE 200 MG/10 ML VIAL IV ONE (09:52)
[2024-01-15] MEDS ORDERED: MIDAZOLAM 2 MG/2 ML VIAL ONE (09:52)
[2024-01-15] MEDS ORDERED: KETOROLAC 15 MG/ML 1 ML VIAL ONE (09:52)
[2024-01-15] MEDS ORDERED: PROPOFOL 10 MG/ML 20 ML VIAL IV ONE (09:52)
[2024-01-15] MEDS ORDERED: HYDROmorphone (PF) 1 MG/ML ONE (09:52)
[2024-01-15] MEDS ORDERED: ROCURONIUM 10 MG/ML (5 ML VIAL) IV ONE (09:52)
[2024-01-15] MEDS ORDERED: LIDOCAINE 1% INJ 10MG/ML (20 ML MDV) ONE (09:52)
[2024-01-15] MEDS ORDERED: NEOSTIGMINE 1 MG/ML 10 ML VIAL ONE (09:52)
[2024-01-15] MEDS ORDERED: GLYCOPYRROLATE 0.2 MG/ML 2 ML VIAL ONE (09:52)
[2024-01-15] MEDS: SODIUM CHLORIDE 0.9% 50 ML with ceFAZolin 1,000 MG IV ONE (09:57)
[2024-01-15 10:27] LABS: Glucose,Whole Blood 211 mg/dL (70-110)
--- NOTE | 2024-01-15 10:46 | P.OP ---
Date of Procedure: 01/15/24 Preoperative Diagnosis: Protein calorie malnutrition Postoperative Diagnosis: Protein calorie malnutrition Procedure(s) Performed: Open jejunostomy tube Anesthesia: AUGIE Surgeon: Shane Garzon Estimated Blood Loss (ml): 5 Pathology: none sent Condition: stable Disposition: PACU Description of Procedure: The patient is placed on the operative table in supine position. She received general endotracheal tube anesthesia. Her abdomen was prepped draped in sterile fashion. A periumbilical midline skin incision was made. And then use electrocautery the subcu tissue divided. The fascia was opened. And then the small bowel was brought in the wound. The proximal and distal small bowel was found. In the proximal jejunum a 3-0 silk suture pursestring was placed. A jejunostomy tube was brought down through the abdominal wall. Jejunostomy tube was placed through an enterotomy in the jejunum cleared and positioned distally. The balloon was inflated with 7 cc of saline. The pursestring suture was secured. The jejunum was then tacked to the abdominal wall using 3-0 GI silk suture. The fascia was then closed with #1 PDS suture. Skin was closed with cristopher. Patient tolerated procedure well. She was sent to recovery room in stable condition.
[2024-01-15] MEDS: IV FLUID CONTINUATION 1,000 ML IV ONE (11:02)
[2024-01-15 11:48] LABS: Glucose,Whole Blood 177 mg/dL (70-110)
[2024-01-15 12:13] LABS: Glucose,Whole Blood 166 mg/dL (70-110)
--- NOTE | 2024-01-15 13:15 | PN ---
PROGRESS NOTE SUBJECTIVE: A 53-year-old white female. OBJECTIVE: VITAL SIGNS: Blood pressure 116/71, temp 97, respiratory rate 16 to 18, O2 93 to 95 on room air. Vital signs are stable. CARDIOVASCULAR: S1, S2. LUNGS: Transmitted upper sounds. Lungs clear. GI: Soft, gastroduodenal PEG tube adjustment today, she is doing better. ASSESSMENT: Severe gastroparesis, dehydration, uncontrolled diabetes, COPD. Continue current treatment. Await for gastroduodenal feeding tube placement today. Sugars have been mid 200s to 400s. Prognosis guarded. MMODL / IJN: [id number] /
[2024-01-15] MEDS: HYDROmorphone 1 MG/ML 1 ML SYRINGE IVP PRN (13:54)
[2024-01-15 16:35] LABS: Glucose,Whole Blood 72 mg/dL (70-110)
[2024-01-15 16:50] LABS: Glucose,Whole Blood 75 mg/dL (70-110)
[2024-01-15 20:20] LABS: Glucose,Whole Blood 111 mg/dL (70-110)
[2024-01-16] MEDS: ACETAMINOPHEN TAB 325 MG TAB PO PRN (03:22)
[2024-01-16 05:29] LABS: Glucose,Whole Blood 156 mg/dL (70-110)
[2024-01-16 12:59] LABS: Glucose,Whole Blood 212 mg/dL (70-110)
[2024-01-16] MEDS: HYDROmorphone 1 MG/ML 1 ML SYRINGE IVP PRN (13:12)
--- NOTE | 2024-01-16 14:33 | CDI ---
Documentation Clarification Form Date: 01/16/2024 From: Kandy Loera RN CCDS Phone: [phone] Admit Date: 01/13/2024 07:43:00 AM Patient Name: Lesa Patterson Visit Number: [id number] Discharge Date: ATTENTION: The Clinical Documentation Specialists (CDI) and [facility] Coding Staff appreciate your assistance in clarifying documentation. Please respond to the clarification below the line at the bottom and electronically sign. The CDI & [facility] Coding staff will review the response and follow-up if needed. Please note: Queries are made part of the Legal Health Record. If you have any questions, please contact the author of this message via ITS. Doctor/Provider: Dell Pike MD: Malnutrition is documented in the Operative note 01/14. Additional clarification regarding the severity of malnutrition is requested. History/Risk Factors: 53-year-old female with a history of gastroparesis with PEG tube and diabetes who presents with nausea and vomiting Clinical Indicators: 01/14 Operative note, Pre/Post-operative diagnosis: "Protein calorie malnutrition." 01/13 BMI: 16.5 Patient Weight: 44kg Patient Height: 4ft 11in 01/13 RD Consult Assessment: "Nutrition diagnosis: Inadequate energy intake, as evidenced by NPO need for EN" BMI classification: "Underweight" 01/09, 01/11, 01/12 Total protein: 6.5, 5.5, 5.7 Treatment: Insertion open jejunostomy malnutrition 01/[address] Glucerna Enteral tube feed continuous Clear liquid diet Please clarify the severity of malnutrition, if known: [ ] Moderate Protein-Calorie Malnutrition [ ] Severe Protein-Calorie Malnutrition [ ] Malnutrition, unknown severity [ ] Other condition, please specify [ ] Unable to Determine In responding to this query, please exercise your independent professional judgment. The [facility] Coding Staff and Clinical Documentation Specialists appreciate your assistance in clarifying documentation, maintaining compliance with coding guidelines, accurately documenting patients condition and capturing severity of illness. The fact that a question is asked does not imply that any particular answer is desired or expected. Communication forms are a method of clarifying documentation and are made part of the Legal Health Record. Thank you in advance for your clarification. Last Reviewed December 2022 Reference: Using the ASPEN Guidelines, Undernutrition (Malnutrition) is characterized by at least two of the following six findings. The severity can be determined based on the criteria listed below. Malnutrition Characteristics for Moderate and Severe Malnutrition Type of Malnutrition Acute Illness or Injury Chronic Illness Degree of Malnutrition Non-severe (moderate) Malnutrition Severe Malnutrition Non-severe (moderate) Malnutrition Severe Malnutrition Energy Intake <75% for >7 days = 50% for = 5 days <75% for = 1 month =75% for = 1 month Weight Loss 1-2% in one week, 5% in 1 month, 7.5% in 3 months 2% in one week, >5% in 1 month, >7.5% in 3 months 5% in one month, 7.5% in 3 months, 10% in 6 months, 20% in 1 year >5% in one month, >7.5% in 3 months, >10% in 6 months, >20% in 1 year Body Fat Wasting Mild Moderate Mild Severe Muscle Wasting Mild Moderate Mild Severe Presence of Edema Mild Moderate to Severe Mild Severe Endocrinology Physician Strength Not applicable Measurably Reduced Not applicable Measurably Reduced Source: Leyla GastelumV, Naomy P, Knox G, et al. Consensus statement: Academy of Nutrition and Dietetics and [place] Society for Parenteral and Enteral Nutrition: characteristics recommended for the identification and documentation of adult malnutrition (undernutrition).JPEN J Parenter Enteral Nutr. 2012;36(3):275-283. MTDD
--- NOTE | 2024-01-16 15:53 | P.PN ---
Subjective Progress Note Date: 01/16/24 CHIEF COMPLAINT: Intractable nausea and vomiting HISTORY OF PRESENT ILLNESS: The patient is a 53-year-old female with intractable nausea and vomiting and history of gastroparesis. Patient is status post open jejunostomy tube placement. Patient reports mild discomfort at tube site. Denies any nausea or vomiting. Afebrile. Tachycardic. PHYSICAL EXAM: VITAL SIGNS: Reviewed. GENERAL: Well-developed in no acute distress. ABDOMEN: Soft. Nondistended. J-tube clean dry and intact NEUROLOGIC: Alert and oriented. Cranial nerves II through XII grossly intact. ASSESSMENT: 1. 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 Signing provider agrees with the documented findings, assessment, and plan of care. Objective - Vital Signs Vital signs: Vital Signs Temp 99.3 F 01/16/24 08:00 Pulse 116 H 01/16/24 09:27 Resp 18 01/16/24 08:00 BP 145/88 01/16/24 08:00 Pulse Ox 93 L 01/16/24 08:00 FiO2 Intake & Output 01/15/24 01/16/24 01/16/24 18:59 06:59 18:59 Intake Total 1250 Balance 1250 Weight 38.2 kg Intake: IV 1250 Other: Voiding Method Toilet Toilet Toilet Diaper Diaper # Voids 0 2 1 - Labs CBC & Chem 7: 01/15/24 04:21 01/15/24 04:21 Labs: Abnormal Lab Results - Last 24 Hours (Table) 01/15/24 01/16/24 Range/Units 20:19 05:27 POC Glucose (mg/dL) 111 H 156 H (70-110) mg/dL
[2024-01-16 17:13] LABS: Glucose,Whole Blood 188 mg/dL (70-110)
[2024-01-16 20:30] LABS: Glucose,Whole Blood 249 mg/dL (70-110)
[2024-01-17 05:28] LABS: Glucose,Whole Blood 226 mg/dL (70-110)
--- NOTE | 2024-01-17 11:03 | P.PN ---
Subjective Progress Note Date: 01/17/24 Principal diagnosis: Gastroparesis Patient feels better today. Only mild discomfort. Tube feeds have not been started. Tolerating clears. No nausea or vomiting. Objective - Vital Signs Vital signs: Vital Signs Temp 98.0 F 01/17/24 08:00 Pulse 112 H 01/17/24 09:19 Resp 17 01/17/24 08:00 BP 158/100 01/17/24 08:00 Pulse Ox 95 01/17/24 08:00 FiO2 Intake & Output 01/16/24 01/17/24 01/17/24 18:59 06:59 18:59 Intake Total 240 118 Balance 240 118 Weight 38.2 kg 36.7 kg Intake: Oral 240 118 Other: Voiding Method Toilet Toilet # Voids 1 1 - Exam Abdomen: Soft, nondistended, incision clean and dry, tube in place - Labs CBC & Chem 7: 01/15/24 04:21 01/15/24 04:21 Labs: Abnormal Lab Results - Last 24 Hours (Table) 01/16/24 01/16/24 01/16/24 Range/Units 12:56 17:11 20:29 POC Glucose (mg/dL) 212 H 188 H 249 H (70-110) mg/dL 01/17/24 Range/Units 05:25 POC Glucose (mg/dL) 226 H (70-110) mg/dL Assessment and Plan (1) Diabetic gastroparesis Narrative/Plan: Patient doing better today. Begin tube feeds. Advance diet to soft foods. Ambulate. Current Visit: No Status: Acute Code(s): E11.43 - TYPE 2 DIABETES W DIABETIC AUTONOMIC (POLY)NEUROPATHY; K31.84 - GASTROPARESIS SNOMED Code(s): 682682942
[2024-01-17 12:07] LABS: Glucose,Whole Blood 88 mg/dL (70-110)
[2024-01-17 15:32] VITALS: BMI 16.3
[2024-01-17 17:01] LABS: Glucose,Whole Blood 174 mg/dL (70-110)
[2024-01-17 21:02] LABS: Glucose,Whole Blood 211 mg/dL (70-110)
--- NOTE | 2024-01-18 02:00 | PN ---
PROGRESS NOTE Sugars have been mid 200s to 100s, status post day 2 after gastroduodenoscopy. Given her some, hopefully restart tube feedings after surgery clears her. She only has mild discomfort. Tube feeds have not been started. She is on clear liquids. Blood pressure 158/100, temp 98, pulse 112, respiratory rate 16 to 18, O2 95. Sodium 129, potassium 4.9, BUN is 27, creatinine 0.7, hemoglobin is 11.3. Diabetic gastroparesis, insulin-dependent diabetes mellitus, dehydration, hyponatremia, hypokalemia, hypertension acceleration. Continue current treatments. Prognosis guarded. Tube feedings, started medications. Control blood pressure. Monitor sugars. Prognosis guarded. No home medications are to be given down the J tube, start tube feeds on 01/17/2024. Prognosis guarded. MMODL / IJN: [id number] /
[2024-01-18 06:01] LABS: Glucose,Whole Blood 285 mg/dL (70-110)
[2024-01-18 12:21] LABS: Glucose,Whole Blood 123 mg/dL (70-110)
[2024-01-18 17:21] LABS: Glucose,Whole Blood 169 mg/dL (70-110)
--- NOTE | 2024-01-18 20:53 | P.PN ---
Subjective Patient seen and evaluated at bedside. no changes, no complaints at this time. Objective - Vital Signs Vital signs: Vital Signs Temp 98.0 F 01/18/24 14:00 Pulse 108 H 01/18/24 20:03 Resp 16 01/18/24 14:00 BP 126/83 01/18/24 14:00 Pulse Ox 94 L 01/18/24 14:00 FiO2 Intake & Output 01/18/24 01/18/24 01/19/24 06:59 18:59 06:59 Intake Total 600 Balance 600 Weight 35.5 kg Intake: Oral 600 Other: Voiding Method Toilet Toilet # Voids 1 3 # Bowel Movements 1 - Exam gen: nad cv: rrr pul: non labored breathing abd: soft, non tender, non distended, feeding tube in place - Labs CBC & Chem 7: 01/15/24 04:21 01/15/24 04:21 Labs: Abnormal Lab Results - Last 24 Hours (Table) 01/17/24 01/18/24 01/18/24 Range/Units 20:54 05:59 12:19 POC Glucose (mg/dL) 211 H 285 H 123 H (70-110) mg/dL 01/18/24 Range/Units 17:20 POC Glucose (mg/dL) 169 H (70-110) mg/dL Assessment and Plan Assessment: Intractable nausea and vomiting due to gastroparesis PLAN: -continue tube feeds -continue clear liquid diet -No home meds to be given down J-tube Time with Patient: Less than 30
[2024-01-18 21:38] LABS: Glucose,Whole Blood 161 mg/dL (70-110)
[2024-01-19 06:07] LABS: Glucose,Whole Blood 217 mg/dL (70-110)
[2024-01-19 08:27] VITALS: RESP 16
--- NOTE | 2024-01-19 09:54 | P.PN ---
Subjective Progress Note Date: 01/19/24 Principal diagnosis: Gastroparesis Patient doing well today. Denies abdominal pain. Tolerating diet so far. No vomiting. Tolerating tube feeds at 10 cc/h. Objective - Vital Signs Vital signs: Vital Signs Temp 97.6 F 01/19/24 08:00 Pulse 109 H 01/19/24 08:26 Resp 16 01/19/24 08:00 BP 124/84 01/19/24 08:00 Pulse Ox 94 L 01/19/24 08:00 FiO2 Intake & Output 01/18/24 01/19/24 01/19/24 18:59 06:59 18:59 Intake Total 600 Balance 600 Weight 37.6 kg Intake: Oral 600 Other: Voiding Method Toilet Toilet Toilet # Voids 3 1 - Exam Abdomen: Soft, nondistended, J-tube in place, incision clean and dry, mild tenderness - Labs CBC & Chem 7: 01/15/24 04:21 01/15/24 04:21 Labs: Abnormal Lab Results - Last 24 Hours (Table) 01/18/24 01/18/24 01/18/24 Range/Units 12:19 17:20 21:36 POC Glucose (mg/dL) 123 H 169 H 161 H (70-110) mg/dL 01/19/24 Range/Units 06:04 POC Glucose (mg/dL) 217 H (70-110) mg/dL Assessment and Plan (1) Diabetic gastroparesis Narrative/Plan: Patient doing fairly well today. Increase tube feeds to 20 cc/h. Possible discharge tomorrow if tolerating advancement of feeds. Continue to advance slowly at home. Current Visit: No Status: Acute Code(s): E11.43 - TYPE 2 DIABETES W DIABETIC AUTONOMIC (POLY)NEUROPATHY; K31.84 - GASTROPARESIS SNOMED Code(s): 216682773
[2024-01-19 12:15] LABS: Glucose,Whole Blood 186 mg/dL (70-110)
[2024-01-19 17:13] LABS: Glucose,Whole Blood 238 mg/dL (70-110)
[2024-01-19 20:16] LABS: Glucose,Whole Blood 208 mg/dL (70-110)
[2024-01-20 01:43] VITALS: BP 112/77; PULSE 115; TEMP 97.9
[2024-01-20 05:21] LABS: Glucose,Whole Blood 288 mg/dL (70-110)
[2024-01-20 12:22] LABS: Glucose,Whole Blood 147 mg/dL (70-110)
[2024-01-20 17:19] LABS: Glucose,Whole Blood 252 mg/dL (70-110)
[2024-01-20 20:26] LABS: Glucose,Whole Blood 250 mg/dL (70-110)
[2024-01-21 05:34] LABS: Glucose,Whole Blood 257 mg/dL (70-110)
[2024-01-21 12:17] LABS: Glucose,Whole Blood 292 mg/dL (70-110)
--- NOTE | 2024-02-09 14:43 | P.CONS ---
History of Present Illness - Reason for Consult Consult date: 01/11/24 Cellulitis hand Requesting physician: Dell Pike - Chief Complaint Nausea vomiting x 1 day - History of Present Illness Patient is a 54-year-old female with multiple comorbidities in this patient who was recently admitted to the hospital did have a left wrist area cellulitis from a previous IV culture were positive for MRSA at the patient was treated with IV antibiotic therapy subsequently sent home on oral antibiotic patient now presenting back to the hospital concerning for nausea and vomiting symptoms started the day before presentation to the hospital and also noted to have elevated blood sugar patient did have mild dull aching abdominal pain no d iarrhea the patient left wrist area swelling and tenderness has resolved currently do not have any open wound or any drainage patient on presentation to the hospital was afebrile no fever have recorded subsequently patient was not tachycardic hypotensive or hypoxic patient did have white count of 6.2 creatinine 0.73 liver exams are normal patient has been over the hospital concern for possible diabetic gastroparesis infectious he was consulted for possible left wrist area cellulitis and need for eval therapy Review of Systems Positive point and negatives has been mentioned in the HPI, complete review of systems was performed and all other systems are negative 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 MDRO Source:: Urine VRE and ESBL, MRSA-ABD Past Surgical History: Cholecystectomy, Orthopedic Surgery, Tubal Ligation Additional Past Surgical History / Comment(s): rt shoulder, J tube placement Past Anesthesia/Blood Transfusion Reactions: No Reported Reaction Additional Past Anesthesia/Blood Transfusion Reaction / Comm: UNK FAMILY HX Past Psychological History: Anxiety Smoking Status: Current every day smoker Past Alcohol Use History: None Reported Additional Past Alcohol Use History / Comment(s): STARTED SMOKING 1987, smokes about 6 cigs/day Past Drug Use History: None Reported Additional Drug Use History / Comment(s): Patient denies using marijuana. - Past Family History Father History Unknown: Yes Additional Family Medical History / Comment(s): unknown-adopted Mother History Unknown: Yes Additional Family Medical History / Comment(s): unknown- adopted Medications and Allergies Home Medications Medication Instructions Recorded Confirmed Type ALPRAZolam [Xanax] 0.25 mg PO BID PRN 05/12/23 01/10/24 History Atorvastatin [Lipitor] 20 mg PO DAILY 05/12/23 01/10/24 History DULoxetine HCL [Cymbalta] 30 mg PO DAILY 05/12/23 01/10/24 History Insulin Lispro [humaLOG Kwikpen] 2 unit SQ AC-TID 05/12/23 01/10/24 History Ipratropium-Albuterol Nebulize 3 ml INHALATION RT-BID 05/12/23 01/10/24 History [Duoneb 0.5 mg-3 mg/3 ml Soln] Mirtazapine [Remeron] 30 mg PO HS 05/12/23 01/10/24 History Metoclopramide [Reglan] 10 mg PO ACHS 30 Days #120 tab 05/15/23 01/10/24 Rx Pantoprazole [Protonix] 40 mg PO AC-BID 30 Days #60 tab 05/21/23 01/10/24 Rx Folic Acid 1 mg PO DAILY 06/15/23 01/10/24 History Ondansetron [Zofran] 4 mg PO DAILY 30 Days #30 tab 06/26/23 01/10/24 Rx HYDROcodone/APAP 7.5-325MG [[place] 1 tab PO TID PRN 08/25/23 01/10/24 History 7.5-325] Acetaminophen Tab [Tylenol] 650 mg PO Q6HR PRN tab 10/16/23 01/10/24 Rx Loperamide [Imodium] 2 mg PO QID PRN cap 10/16/23 01/10/24 Rx Prochlorperazine Maleate 10 mg PO AC-BID 30 Days #60 tab 10/30/23 01/10/24 Rx Ferrous Sulfate [Iron (65 MG 325 mg PO DAILY 12/09/23 01/10/24 History Elemental)] Insulin Glargine [Lantus Vial] 4 unit SQ DAILY 12/09/23 01/10/24 History Potassium Bicarb-Citric Acid 20 meq PO DAILY 12/09/23 01/10/24 History (Effer-K) 20meq Tab Scopolamine [Scopolamine 1 MG/72 1 patch TRANSDERM Q72H 12/09/23 01/10/24 History HR patch] Doxycycline [Vibramycin] 100 mg PO BID 30 Days #60 cap 12/19/23 01/10/24 Rx amLODIPine [Norvasc] 5 mg PO DAILY 90 Days #90 tab 12/19/23 01/10/24 Rx Famotidine [Pepcid] 20 mg PO BID 30 Days #60 tab 01/18/24 Rx Allergies Allergy/AdvReac Type Severity Reaction Status Date / Time fentanyl Allergy Unknown Verified 01/10/24 10:27 Physical Exam Vitals: Vital Signs Temp Pulse Pulse Resp BP BP Pulse Ox 01/11/24 09:39 114 H 120/79 01/11/24 08:49 199/123 01/11/24 08:47 105 H 01/11/24 08:37 109 H 01/11/24 07:00 97.9 F 106 H 13 99 01/11/24 02:00 97.4 F L 100 20 142/89 96 01/10/24 20:01 90 01/10/24 20:00 98.0 F 90 18 125/78 99 01/10/24 19:51 92 01/10/24 17:45 97.8 F 89 17 135/83 95 01/10/24 17:23 97.7 F 92 18 133/90 96 01/10/24 15:58 90 18 98/70 97 01/10/24 13:00 89 18 141/84 95 01/10/24 12:00 99 18 125/84 95 Intake and Output 01/10/24 01/11/24 01/11/24 22:59 06:59 14:59 Other: Weight 38.1 kg GENERAL DESCRIPTION: Middle-aged female lying in bed, no distress. No tachypnea or accessory muscle of respiration use. HEENT: Shows Pallor , no scleral icterus. Oral mucous membrane is dry. No pharyngeal erythema or thrush NECK: Trachea central, no thyromegaly. LUNGS: Unlabored breathing. Clear to auscultation anteriorly. No wheeze or crackle. HEART: S1, S2, regular rate and rhythm. No loud murmur ABDOMEN: Soft, no tenderness , guarding or rigidity, no organomegaly EXTREMITIES: Left hand with no swelling redness open wound or any drainage SKIN: No rash, no masses palpable. NEUROLOGICAL: The patient is awake, alert, oriented x3, mood and affect normal. Results CBC & Chem 7: 01/15/24 04:21 01/15/24 04:21 Labs: Abnormal Lab Results - Last 24 Hours (Table) 01/10/24 01/10/24 01/10/24 Range/Units 14:19 15:17 15:39 Sodium 132 L (137-145) mmol/L Chloride 109 H (98-107) mmol/L Carbon Dioxide 20 L (22-30) mmol/L BUN 29 H (7-17) mg/dL Glucose 274 H (74-99) mg/dL POC Glucose (mg/dL) 309 H 264 H (70-110) mg/dL 01/10/24 01/10/24 01/11/24 Range/Units 16:29 19:47 05:40 Sodium 134 L (137-145) mmol/L Chloride 112 H (98-107) mmol/L Carbon Dioxide 19 L (22-30) mmol/L BUN 25 H (7-17) mg/dL Glucose 110 H (74-99) mg/dL POC Glucose (mg/dL) 187 H 197 H (70-110) mg/dL 01/11/24 Range/Units 10:59 Sodium (137-145) mmol/L Chloride (98-107) mmol/L Carbon Dioxide (22-30) mmol/L BUN (7-17) mg/dL Glucose (74-99) mg/dL POC Glucose (mg/dL) 223 H (70-110) mg/dL Assessment and Plan (1) Cellulitis of left wrist Status: Acute Code(s): L03.114 - CELLULITIS OF LEFT UPPER LIMB SNOMED Code(s): 55080460957842123 Plan: 1patient presented hospital with acute nausea and vomiting possible related to her diabetic gastroparesis recently did have an EGD that was reported to be negative being managed by surgical team 2patient also have a left hand cellulitis that has been adequately treated as currently no evidence of any swelling and redness we will monitor the patient closely off antibiotic therapy at this point We will follow on clinical condition and cultures to further adjust medication if needed Thank you for this consultation we will follow the patient along with you Dictation was produced using [employer] software. please excuse any grammatical, word or spelling errors.
--- NOTE | 2024-02-23 11:13 | PN ---
PROGRESS NOTE Severe protein calorie malnutrition. MMODL / IJN: [id number] /
== END 2024-01-21 15:54 | disposition home health service (06) | DRG 73 ==
LOC: EC 08:16 → 6NMEDSUR 14:01 → OBSVTOIN 01-13 07:43
PROVIDERS: ADMIT Family Medicine; ATTEND Family Medicine
PROC: 3E0H76Z Introduction of Nutritional Substance into Lower GI, Via Natural or Artificial Opening (ICD-10-PCS; principal; 2024-01-15 09:30)
PROC: 0DHA0UZ Insertion of Feeding Device into Jejunum, Open Approach (ICD-10-PCS; principal; 2024-01-15 09:30)
DX: E11.43 Type 2 diabetes mellitus with diabetic autonomic (poly)neuropathy (principal); E43 Unspecified severe protein-calorie malnutrition; E87.1 Hypo-osmolality and hyponatremia; L03.114 Cellulitis of left upper limb; R64 Cachexia; Z68.1 Body mass index [BMI] 19.9 or less, adult; E11.65 Type 2 diabetes mellitus with hyperglycemia; E86.0 Dehydration; E87.6 Hypokalemia; R19.7 Diarrhea, unspecified; F17.210 Nicotine dependence, cigarettes, uncomplicated; F41.9 Anxiety disorder, unspecified; M75.00 Adhesive capsulitis of unspecified shoulder; R00.0 Tachycardia, unspecified; E11.40 Type 2 diabetes mellitus with diabetic neuropathy, unspecified; G89.29 Other chronic pain; I10 Essential (primary) hypertension; K31.84 Gastroparesis; J44.9 Chronic obstructive pulmonary disease, unspecified; Z79.899 Other long term (current) drug therapy; Z79.4 Long term (current) use of insulin; Z86.14 Personal history of Methicillin resistant Staphylococcus aureus infection; Z86.711 Personal history of pulmonary embolism; Z86.718 Personal history of other venous thrombosis and embolism; Z88.5 Allergy status to narcotic agent
CPT/HCPCS: 36415; 74018; 80048; 80051; 80053; 80320; 81001; 82009; 82150; 82565; 82947; 83605; 83690; 84100; 84520; 85025; 85027; 93005; 94640; 96361; 96374; 96375; 96376; 99285

== ENCOUNTER 2024-02-21 11:33 | Inpatient (IN) | payer MEDICARE, OTHER ==
--- NOTE | 2024-02-21 12:46 | ED ---
General Adult HPI - General Chief complaint: Abdominal Pain Stated complaint: Abd Pain Time Seen by Provider: 02/21/24 11:40 Source: patient, EMS Mode of arrival: EMS Limitations: no limitations - History of Present Illness Initial comments: Dictation was produced using OnBeep dictation software. please excuse any grammatical, word or spelling errors. Chief Complaint: 54-year-old female presents to the emergency department yet again for gastroparesis symptoms History of Present Illness: Patient is 54-year-old female she has chronic gastroparesis who presents to the emergency department via EMS. Patient states she is having gastroparesis symptoms again. Patient currently on TPN. Denies any fever, chills or night sweats. The ROS documented in this emergency department record has been reviewed and confirmed by me. Those systems with pertinent positive or negative responses have been documented in the HPI. All other systems are other negative and/or noncontributory. - Related Data Home Medications Medication Instructions Recorded Confirmed ALPRAZolam [Xanax] 0.25 mg PO BID PRN 05/12/23 01/10/24 Atorvastatin [Lipitor] 20 mg PO DAILY 05/12/23 01/10/24 DULoxetine HCL [Cymbalta] 30 mg PO DAILY 05/12/23 01/10/24 Insulin Lispro [humaLOG Kwikpen] 2 unit SQ AC-TID 05/12/23 01/10/24 Ipratropium-Albuterol Nebulize 3 ml INHALATION RT-BID 05/12/23 01/10/24 [Duoneb 0.5 mg-3 mg/3 ml Soln] Mirtazapine [Remeron] 30 mg PO HS 05/12/23 01/10/24 Folic Acid 1 mg PO DAILY 06/15/23 01/10/24 HYDROcodone/APAP 7.5-325MG [[place] 1 tab PO TID PRN 08/25/23 01/10/24 7.5-325] Ferrous Sulfate [Iron (65 MG 325 mg PO DAILY 12/09/23 01/10/24 Elemental)] Insulin Glargine [Lantus Vial] 4 unit SQ DAILY 12/09/23 01/10/24 Potassium Bicarb-Citric Acid 20 meq PO DAILY 12/09/23 01/10/24 (Effer-K) 20meq Tab Scopolamine [Scopolamine 1 MG/72 1 patch TRANSDERM Q72H 12/09/23 01/10/24 HR patch] Previous Rx's Medication Instructions Recorded Metoclopramide [Reglan] 10 mg PO ACHS 30 Days #120 tab 05/15/23 Pantoprazole [Protonix] 40 mg PO AC-BID 30 Days #60 tab 05/21/23 Ondansetron [Zofran] 4 mg PO DAILY 30 Days #30 tab 06/26/23 Acetaminophen Tab [Tylenol] 650 mg PO Q6HR PRN tab 10/16/23 Loperamide [Imodium] 2 mg PO QID PRN cap 10/16/23 Prochlorperazine Maleate 10 mg PO AC-BID 30 Days #60 tab 10/30/23 Doxycycline [Vibramycin] 100 mg PO BID 30 Days #60 cap 12/19/23 amLODIPine [Norvasc] 5 mg PO DAILY 90 Days #90 tab 12/19/23 Famotidine [Pepcid] 20 mg PO BID 30 Days #60 tab 01/18/24 Allergies Allergy/AdvReac Type Severity Reaction Status Date / Time fentanyl Allergy Unknown Verified 02/21/24 11:39 Review of Systems ROS Statement: Those systems with pertinent positive or pertinent negative responses have been documented in the HPI. ROS Other: All systems not noted in ROS Statement are negative. Past Medical History Past Medical History: Diabetes Mellitus, Hypertension, Musculoskeletal Disorder Additional Past Medical History / Comment(s): FREQ NAUSEA, PAINFUL RT SHOULDER "FROZEN SHOULDER", NEUROPATHY PORFIRIO LEGS and hands, Blood pressures can run high History of Any Multi-Drug Resistant Organisms: ESBL, MRSA, VRE Date of last positivie culture/infection: 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;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 MDRO Source:: Urine VRE and ESBL, MRSA-ABD Past Surgical History: Cholecystectomy, Orthopedic Surgery, Tubal Ligation Additional Past Surgical History / Comment(s): rt shoulder, J tube placement Past Anesthesia/Blood Transfusion Reactions: No Reported Reaction Additional Past Anesthesia/Blood Transfusion Reaction / Comment(s): UNK FAMILY HX Past Psychological History: Anxiety Smoking Status: Current every day smoker Past Alcohol Use History: None Reported Past Drug Use History: None Reported - Past Family History Father History Unknown: Yes Additional Family Medical History / Comment(s): unknown-adopted Mother History Unknown: Yes Additional Family Medical History / Comment(s): unknown- adopted General Exam - General Exam Comments Initial Comments: PHYSICAL EXAM: General Impression: Alert and oriented x3, not in acute distress HEENT: Normocephalic atraumatic, extra-ocular movements intact, pupils equal and reactive to light bilaterally, mucous membranes moist. Cardiovascular: Heart regular rate and rhythm Chest: Able to complete full sentences, no retractions, no tachypnea Abdomen: abdomen soft, n diffuse palpatory abdominal pain, non-distended, no organomegaly Musculoskeletal: Pulses present and equal in all extremities, no peripheral edema Motor: no focal deficits noted Neurological: CN II-XII grossly intact, no focal motor or sensory deficits noted Skin: Intact with no visualized rashes Psych: Normal affect and mood Limitations: no limitations Course Vital Signs 02/21/24 02/21/24 11:35 13:48 Temperature 98.1 F Pulse Rate 106 H 98 Respiratory 16 20 Rate Blood Pressure 94/63 105/73 O2 Sat by Pulse 97 96 Oximetry EKG Findings - EKG Comments: EKG Findings:: My EKG interpretation: Ventricular rate 106, sinus tachycardia with clear definable P waves, QRS 73, QTc 34. No NE prolongation, no QTC prolongation, no ST or T-wave changes notedOverall, this EKG is unremarkable Medical Decision Making - Medical Decision Making Was pt. sent in by a medical professional or institution ([facility], [facility], urgent care, hospital, or care home...) When possible be specific @ -No Did you speak to anyone other than the patient for history (EMS, parent, family, police, friend...)? What history was obtained from this source @ -No Did you review nursing and triage notes (agree or disagree)? Why? @ -I reviewed and agree with nursing and triage notes Were old charts reviewed (outside hosp., previous admission, EMS record, old EKG, old radiological studies, urgent care reports/EKG's, care home records)? Report findings @ -No old charts were reviewed Differential Diagnosis (chest pain, altered mental status, abdominal pain women, abdominal pain men, vaginal bleeding, musculoskeletal, weakness, fever, dyspnea, syncope, headache, dizziness, GI bleed, back pain, seizure, CVA, palpatations, mental health)? @ -Differential Abdominal Pain Women: Appendicitis, Cholecystitis, diverticulosis, ischemic bowel, pancreatitis, hepatitis, UTI, gastroenteritis, AAA, incarcerated hernia, bowel obstruction, constipation, inflammatory bowel, hepatitis, peptic ulcer disease, splenic infarction, perforated viscus, vulvitis, ovarian torsion, PID, kidney stone, placenta abruption, this is not meant to be an all-inclusive list EKG interpreted by me (3pts min.). @ -None done X-rays interpreted by me (1pt min.). @ -None done CT interpreted by me (1pt min.). @ -None done U/S interpreted by me (1pt. min.). @ -None done What testing was considered but not performed or refused? (CT, X-rays, U/S, labs)? Why? @ -None What meds were considered but not given or refused? Why? @ -None Was smoking cessation discussed for >3mins.? @ -No Were there social determinants of health that impacted care today? How? (Homelessness, low income, unemployed, alcoholism, drug addiction, transportation, low edu. Level, literacy, decrease access to med. care, retirement, rehab)? @ -Opiate use disorder Was there de-escalation of care discussed even if they declined (Discuss DNR or withdrawal of care, Hospice)? DNR status @ -No What co-morbidities impacted this encounter? (DM, HTN, Smoking, COPD, CAD, Cancer, CVA, ARF, Chemo, Hep., AIDS, mental health diagnosis, sleep apnea, morbid obesity)? @ -Diabetic gastroparesis Was patient admitted / discharged? Hospital course, mention meds given and route, prescriptions, significant lab abnormalities, going to OR and other pertinent info. @ -55-year-old female with severe chronic diabetic gastroparesis on TPN presents to the ER yet again for acute on chronic abdominal pain. Laboratory ev aluation is within acceptable limits. Patient given IV fluids. Discussed with Dr. Pike patient's PCP who prefer patient be admitted. Patient given IV fluids Did you discuss the management of the patient with other professionals (professionals i.e. , PA, [facility], lab, RT, psych nurse, social services, drier helper, teacher, hydrographical technical officer, case therapist)? Give summary @ -Case discussed with Dr. Pike for admission Was critical care preformed (if so, how long)? @ -No Undiagnosed new problem with uncertain prognosis? @ -No Drug Therapy requiring intensive monitoring for toxicity (Heparin, Nitro, Insulin, Cardizem)? @ -No Were any procedures done? @ -No Diagnosis/symptom? Acute, or Chronic, or Acute on Chronic? Uncomplicated (without systemic symptoms) or Complicated (systemic symptoms)? @ -Acute on chronic abdominal pain Side effects of treatment? @ -No Exacerbation, Progression, or Severe Exacerbation? @ -No Poses a threat to life or bodily function? How? (Chest pain, [place], [place], pneumonia, PE, COPD, DKA, ARF, appy, cholecystitis, CVA, Diverticulitis, Homicidal, Suicidal, threat to staff... and all critical care pts) @ -No - Lab Data Result diagrams: 02/21/24 12:30 02/21/24 12:30 Lab Results 02/21/24 02/21/24 Range/Units 12:30 12:30 WBC 7.1 (3.8-10.6) k/uL RBC 3.48 L (3.80-5.40) m/uL Hgb 10.0 L (11.4-16.0) gm/dL Hct 31.6 L (34.0-46.0) % MCV 90.8 (80.0-100.0) fL MCH 28.7 (25.0-35.0) pg MCHC 31.6 (31.0-37.0) g/dL RDW 15.2 (11.5-15.5) % Plt Count 193 (150-450) k/uL MPV 9.8 Neutrophils % 73 % Lymphocytes % 15 % Monocytes % 8 % Eosinophils % 2 % Basophils % 0 % Neutrophils # 5.2 (1.3-7.7) k/uL Lymphocytes # 1.1 (1.0-4.8) k/uL Monocytes # 0.5 (0-1.0) k/uL Eosinophils # 0.1 (0-0.7) k/uL Basophils # 0.0 (0-0.2) k/uL Hypochromasia Moderate Sodium 129 L (137-145) mmol/L Potassium 4.6 (3.5-5.1) mmol/L Chloride 99 (98-107) mmol/L Carbon Dioxide 21 L (22-30) mmol/L Anion Gap 9 mmol/L BUN 69 H (7-17) mg/dL Creatinine 0.91 (0.52-1.04) mg/dL Est GFR (CKD-EPI)AfAm 84 (>60 ml/min/1.73 sqM) Est GFR (CKD-EPI)NonAf 73 (>60 ml/min/1.73 sqM) Glucose 321 H (74-99) mg/dL Calcium 8.2 L (8.4-10.2) mg/dL Total Bilirubin 0.2 (0.2-1.3) mg/dL AST 35 (14-36) U/L ALT 44 H (4-34) U/L Alkaline Phosphatase 124 (38-126) U/L Total Protein 5.2 L (6.3-8.2) g/dL Albumin 2.4 L (3.5-5.0) g/dL Disposition Clinical Impression: Abdominal pain Disposition: ADMITTED IP TO THIS [facility] Condition: Fair Referrals: Dell Pike MD [Primary Care Provider] - 1-2 days Decision Time: 14:21
[2024-02-21 12:47] LABS: Basophils % (A) 0 %; Eosinophils # (A) 0.1 k/uL (0-0.7); Eosinophils % (A) 2 %; HCT 31.6 % (34.0-46.0); Hypochromasia Moderate; Lymphocytes # (A) 1.1 k/uL (1.0-4.8); Lymphocytes % (A) 15 %; MCH 28.7 pg (25.0-35.0); MCHC 31.6 g/dL (31.0-37.0); MCV 90.8 fL (80.0-100.0); Mean Platelet Volume 9.8; Monocytes # (A) 0.5 k/uL (0-1.0); Monocytes % (A) 8 %; Neutrophils # (A) 5.2 k/uL (1.3-7.7); Neutrophils % (A) 73 %; Platelet Count 193 k/uL (150-450); RBC 3.48 m/uL (3.80-5.40); RDW 15.2 % (11.5-15.5); WBC 7.1 k/uL (3.8-10.6)
[2024-02-21 13:01] LABS: ALT 44 U/L (4-34); AST 35 U/L (14-36); African American GFR (CKD) 84 (>60 ml/min/1.73 sqM); Albumin 2.4 g/dL (3.5-5.0); Alkaline Phosphatase 124 U/L (38-126); Anion Gap 9 mmol/L; Blood Urea Nitrogen 69 mg/dL (7-17); Calcium 8.2 mg/dL (8.4-10.2); Carbon Dioxide 21 mmol/L (22-30); Chloride 99 mmol/L (98-107); Glucose 321 mg/dL (74-99); Non-African American GFR(CKD) 73 (>60 ml/min/1.73 sqM); Potassium 4.6 mmol/L (3.5-5.1); Sodium 129 mmol/L (137-145); Total Bilirubin 0.2 mg/dL (0.2-1.3); Total Protein 5.2 g/dL (6.3-8.2)
[2024-02-21] MEDS ORDERED: NALOXONE 0.4 MG/ML 1 ML VIAL IV PRN (14:17)
[2024-02-21] MEDS: SODIUM CHLORIDE 0.9% 1,000 ML IV SCH (14:36)
[2024-02-21] MEDS: HYDROcodone/APAP 7.5-325MG 1 EACH TAB PO PRN (15:22)
[2024-02-21] MEDS ORDERED: SCOPOLAMINE 1 MG/72 HR PATCH TRANSDERM SCH (16:00)
[2024-02-21 16:02] LABS: Magnesium 2.3 mg/dL (1.6-2.3); Phosphorus 4.8 mg/dL (2.5-4.5)
[2024-02-21] MEDS ORDERED: PROCHLORPERAZINE 10 MG TAB PO SCH (17:30)
[2024-02-21] MEDS: METOCLOPRAMIDE 10 MG TAB PO SCH (18:46)
[2024-02-21] MEDS: PANTOPRAZOLE 40 MG TABLET PO SCH (18:46)
[2024-02-21] MEDS: HYDROmorphone 0.5 MG/0.5 ML SYRINGE IVP PRN (18:55)
[2024-02-21] MEDS: ALPRAZolam 0.25 MG TAB PO PRN (18:56)
[2024-02-21] MEDS: INSULIN ASPART (NovoLOG) 100 UNIT/ML VIAL SQ SCH ×2 (18:56→23:32)
[2024-02-21] MEDS: LOPERAMIDE 2 MG CAP PO PRN (18:56)
[2024-02-21 19:28] LABS: Glucose,Whole Blood 252 mg/dL (70-110)
[2024-02-21] MEDS ORDERED: IPRATROPIUM-ALBUTEROL 3 ML NEB INHALATION SCH (20:00)
[2024-02-21] MEDS: FAMOTIDINE 20 MG TAB PO SCH (21:44)
[2024-02-21] MEDS: MIRTAZAPINE 15 MG TAB PO SCH (22:15)
[2024-02-21] MEDS ORDERED: DEXTROSE 50% SYRINGE 50 ML IVP PRN (22:42)
[2024-02-21 22:57] LABS: Glucose,Whole Blood 87 mg/dL (70-110)
[2024-02-21 22:57] LABS: Glucose,Whole Blood 93 mg/dL (70-110)
[2024-02-21] MEDS: FAT EMULSION 20% 250 ML in EMPTY BAG 1 BAG IV SCH (23:30)
[2024-02-21] MEDS: MVI, ADULT NO.4 WITH VIT K 10 ML, TRACE (CONC-1ML/DOSE) 1 ML, SODIUM ACETATE 40 MEQ, PO... IV ONE (23:30)
--- NOTE | 2024-02-22 02:16 | HP ---
HISTORY AND PHYSICAL HISTORY OF PRESENT ILLNESS: 54-year-old white female in the ER with gastroparesis symptoms. The patient appeared to have TPN. Denies fevers, chills, or night sweats. HOME MEDICINES: 1. Xanax 0.25 b.i.d. 2. Lipitor 20 daily. 3. Cymbalta 30 daily. 4. Insulin lispro 2 units subcu t.i.d. 5. DuoNeb b.i.d. 6. Remeron 30 at bedtime. 7. [place] 7.5 t.i.d. 8. Iron 325 daily. 9. Lantus 4 units daily. 10.Potassium bicarb citric acid 20 mEq daily. 11.Scopolamine 1 mg every 72 hours. 12. . REVIEW OF SYSTEMS: Fourteen-point review of systems otherwise negative. PAST MEDICAL HISTORY: Diabetes mellitus, hypertension, musculoskeletal disorder, neuropathy. Urine VRE, ESBL MRSA. PAST SURGICAL HISTORY: Cholecystectomy, orthopedic surgery, tubal ligation, right shoulder surgery, J-tube dressing. FAMILY HISTORY: Father, adopted. Mother, adopted. PHYSICAL EXAMINATION: GENERAL: Severe malnutrition. VITAL SIGNS: Stable. Afebrile. Temperature 98.1, pulse 98 to 106, respiratory rate 16 to 20, 95 to 105/63 to 73 blood pressure, ventricular rate 106. CARDIOVASCULAR: S1 and S2. LUNGS: Transmitted upper airway sounds. GI: Soft. Had a J-tube placed. HEMATOLOGY: Negative Homans. PSYCH: Fair mood and affect. NEUROLOGIC: Negative. VASCULAR: Negative. LABORATORY DATA: Hemoglobin is 10. BUN 16, creatinine 0.91, sodium 129. ASSESSMENT AND PLAN: Abdominal pain, elevated liver enzymes, gastroparesis, severe malnutrition with TPN restarted from dietary. Monitor her for nausea, vomiting. Monitor her sugar levels. PROGNOSIS: Guarded. MMODL / IJN: [id number] /
[2024-02-22 05:30] LABS: Glucose,Whole Blood 66 mg/dL (70-110)
[2024-02-22 05:50] LABS: Glucose,Whole Blood 71 mg/dL (70-110)
[2024-02-22 06:24] LABS: Glucose,Whole Blood 91 mg/dL (70-110)
[2024-02-22] MEDS: INSULIN ASPART (NovoLOG) 100 UNIT/ML VIAL SQ SCH (06:54)
[2024-02-22] MEDS: INSULIN DETEMIR (LEVEMIR) 100 UNIT/ML SYR SQ SCH (06:54)
[2024-02-22] MEDS ORDERED: INSULIN DETEMIR (LEVEMIR) 100 UNIT/ML SYR SQ SCH ×2 (07:00)
[2024-02-22] MEDS: ONDANSETRON 4 MG TAB PO SCH (07:57)
[2024-02-22] MEDS: amLODIPine 5 MG TAB PO SCH (07:58)
[2024-02-22] MEDS: FERROUS SULFATE 325 MG TAB PO SCH (07:58)
[2024-02-22] MEDS: ATORVASTATIN 20 MG TAB PO SCH (07:58)
[2024-02-22] MEDS: FOLIC ACID 1 MG TAB PO SCH (07:58)
[2024-02-22] MEDS ORDERED: DULoxetine HCL 30 MG CAPSULE.DR PO SCH (09:00)
[2024-02-22 10:06] LABS: African American GFR (CKD) >90 (>60 ml/min/1.73 sqM); Anion Gap 6 mmol/L; Blood Urea Nitrogen 48 mg/dL (7-17); Calcium 7.8 mg/dL (8.4-10.2); Carbon Dioxide 21 mmol/L (22-30); Chloride 103 mmol/L (98-107); Glucose 156 mg/dL (74-99); Magnesium 2.2 mg/dL (1.6-2.3); Non-African American GFR(CKD) >90 (>60 ml/min/1.73 sqM); Phosphorus 3.8 mg/dL (2.5-4.5); Potassium 4.8 mmol/L (3.5-5.1); Sodium 130 mmol/L (137-145)
[2024-02-22 11:54] LABS: Glucose,Whole Blood 180 mg/dL (70-110)
--- NOTE | 2024-02-22 12:13 | PN ---
PROGRESS NOTE SUBJECTIVE: This 54-year-old white female came with progressive nausea, vomiting, uncontrolled diabetes mellitus. Sugars have been in the low 60s to 90s. Started on tube feeding. PHYSICAL EXAMINATION: VITAL SIGNS: Blood pressure 130/48. CARDIOVASCULAR: S1, S2. LUNGS: Transmitted upper airway sounds. GI: Soft. HEMATOLOGY: Negative Homans. ASSESSMENT: Due to her low blood sugars, we are going to have to decrease her insulin back down as her sugars remain under 100 all the time with one low as 66. PROGNOSIS: Guarded. Please see further orders. MMODL / IJN: [id number] /
[2024-02-22 15:34] LABS: Glucose,Whole Blood 56 mg/dL (70-110)
[2024-02-22 15:55] LABS: Glucose,Whole Blood 59 mg/dL (70-110)
[2024-02-22] MEDS: DEXTROSE 50% SYRINGE 50 ML IVP PRN (16:08)
[2024-02-22 16:25] LABS: Glucose,Whole Blood 167 mg/dL (70-110)
[2024-02-22 20:42] LABS: Glucose,Whole Blood 164 mg/dL (70-110)
[2024-02-23 05:57] LABS: Glucose,Whole Blood 232 mg/dL (70-110)
[2024-02-23 06:53] LABS: ALT 49 U/L (4-34); AST 46 U/L (14-36); African American GFR (CKD) >90 (>60 ml/min/1.73 sqM); Albumin 2.3 g/dL (3.5-5.0); Albumin/Globulin Ratio 0.8; Alkaline Phosphatase 168 U/L (38-126); Anion Gap 5 mmol/L; Blood Urea Nitrogen 29 mg/dL (7-17); Carbon Dioxide 24 mmol/L (22-30); Chloride 106 mmol/L (98-107); Globulin 2.9 g/dL; Glucose 239 mg/dL (74-99); Magnesium 2.2 mg/dL (1.6-2.3); Non-African American GFR(CKD) >90 (>60 ml/min/1.73 sqM); Potassium 4.6 mmol/L (3.5-5.1); Sodium 135 mmol/L (137-145); Total Bilirubin 0.3 mg/dL (0.2-1.3); Total Protein 5.2 g/dL (6.3-8.2)
[2024-02-23] MEDS: INSULIN DETEMIR (LEVEMIR) 100 UNIT/ML SYR SQ SCH (06:56)
[2024-02-23 11:00] LABS: Basophils # (A) 0.05 X 10*3/uL (0.00-0.10); Basophils % (A) 0.6 %; Eosinophils # (A) 0.32 X 10*3/uL (0.04-0.35); HCT 32.2 % (37.2-46.3); HGB 10.1 g/dL (12.0-15.0); Lymphocytes # (A) 1.83 X 10*3/uL (0.90-5.00); Lymphocytes % (A) 23.1 %; MCHC 31.4 g/dL (32.0-37.0); MCV 92.5 FL (80.0-97.0); Mean Platelet Volume 12.2 FL (9.5-12.2); Monocytes # (A) 0.73 X 10*3/uL (0.20-1.00); Monocytes % (A) 9.2 %; NRBC Per 100 WBC 0 X 10*3/uL (0.00-0.01); Neutrophils # (A) 4.92 X 10*3/uL (1.80-7.70); Neutrophils % (A) 62.3 %; Platelet Count 233 X 10*3/uL (140-440); RBC 3.48 X 10*6/uL (4.10-5.20); RBC Morphology Normal (Normal); RDW 15.6 % (11.5-14.5); WBC 7.91 X 10*3/uL (4.50-10.00)
[2024-02-23] MEDS: MVI, ADULT NO.4 WITH VIT K 10 ML, TRACE (CONC-1ML/DOSE) 1 ML in AMINO ACID 5%-D20W+LYTE... IV SCH (11:14)
--- NOTE | 2024-02-23 11:43 | PN ---
PROGRESS NOTE SUBJECTIVE: A 54-year-old white female, had hypoglycemia, last 24 hours to be lower, glucose monitoring, her Lantus from 15 units down to 10 units, now sugars still low 56 to 59, up to 160s to 230s, on just TPN. She is not allowed to eat for surgery, possibly lower down the regular insulin, she takes the dosage of it. PHYSICAL EXAMINATION: CARDIOVASCULAR: S1, S2. LUNGS: Clear. GI: Soft. HEMATOLOGY: Negative Homans. PSYCH: Fair mood and affect. NEUROLOGIC: Alert and oriented x3. Possibly cut order late night fast acting sugar and watch her overnight. Prognosis guarded. MMODL / IJN: [id number] /
[2024-02-23 11:57] LABS: Glucose,Whole Blood 223 mg/dL (70-110)
[2024-02-23 17:19] LABS: Glucose,Whole Blood 320 mg/dL (70-110)
[2024-02-23 18:45] LABS: Appearance,Urine Clear (Clear); Bilirubin,Urine Negative (Negative); Blood,Urine Trace (Negative); Color,Urine Colorless; Glucose,Urine (UA) 4+ (Negative); Ketones,Urine Negative (Negative); Leukocyte Esterase,Urine Negative (Negative); Nitrite,Urine Negative (Negative); PH, Urine 6.5 (5.0-8.0); Protein,Urine 2+ (Negative); RBC,Urine 2 /hpf (0-5); Specific Gravity,Urine 1.009 (1.001-1.035); Squamous Epithelial Cell,Urine 1 /hpf (0-4); Urobilinogen,Urine <2.0 mg/dL (<2.0); WBC,Urine 8 /hpf (0-5)
[2024-02-23 20:15] LABS: Glucose,Whole Blood 319 mg/dL (70-110)
[2024-02-24 05:46] LABS: African American GFR (CKD) >90 (>60 ml/min/1.73 sqM); Anion Gap 6 mmol/L; Blood Urea Nitrogen 24 mg/dL (7-17); Calcium 8.4 mg/dL (8.4-10.2); Carbon Dioxide 22 mmol/L (22-30); Chloride 106 mmol/L (98-107); Glucose 354 mg/dL (74-99); Non-African American GFR(CKD) >90 (>60 ml/min/1.73 sqM); Phosphorus 3.6 mg/dL (2.5-4.5); Sodium 134 mmol/L (137-145)
[2024-02-24 05:54] LABS: Glucose,Whole Blood 383 mg/dL (70-110)
[2024-02-24 11:51] LABS: Glucose,Whole Blood 384 mg/dL (70-110)
[2024-02-24 16:53] LABS: Glucose,Whole Blood 239 mg/dL (70-110)
--- NOTE | 2024-02-24 18:51 | PN ---
PROGRESS NOTE SUBJECTIVE: A 54-year-old white female who was admitted with progressive nausea and vomiting, on clear liquid diet, keeping everything down at this point. Sodium 134, potassium 5.0, sugars have been 300s. She had hypoglycemia. We cut back her insulin doses. Continue with PT/OT, set up for home TPN. Possibly discharge home soon. PROGNOSIS: Guarded. Ambulate as tolerated. Please see further orders. MMODL / IJN: [id number] /
[2024-02-24 21:00] LABS: Glucose,Whole Blood 349 mg/dL (70-110)
[2024-02-25] MEDS: MVI, ADULT NO.4 WITH VIT K 10 ML, TRACE (CONC-1ML/DOSE) 1 ML, SODIUM ACETATE 20 MEQ in ... IV SCH (01:38)
[2024-02-25 05:33] LABS: Glucose,Whole Blood 350 mg/dL (70-110)
[2024-02-25 06:14] LABS: African American GFR (CKD) >90 (>60 ml/min/1.73 sqM); Anion Gap 6 mmol/L; Blood Urea Nitrogen 24 mg/dL (7-17); Calcium 8.7 mg/dL (8.4-10.2); Carbon Dioxide 26 mmol/L (22-30); Chloride 102 mmol/L (98-107); Glucose 325 mg/dL (74-99); Magnesium 1.8 mg/dL (1.6-2.3); Non-African American GFR(CKD) >90 (>60 ml/min/1.73 sqM); Phosphorus 4.7 mg/dL (2.5-4.5); Potassium 5.5 mmol/L (3.5-5.1); Sodium 134 mmol/L (137-145)
--- NOTE | 2024-02-25 08:44 | CDI ---
Documentation Clarification Form Date: 02/25/2024 From: Kadny Loera RN CCDS Phone: [phone] Admit Date: 02/21/2024 02:19:00 PM Patient Name: Lesa Patterson Visit Number: [id number] Discharge Date: ATTENTION: The Clinical Documentation Specialists (CDI) and [facility] Coding Staff appreciate your assistance in clarifying documentation. Please respond to the clarification below the line at the bottom and electronically sign. The CDI & [facility] Coding staff will review the response and follow-up if needed. Please note: Queries are made part of the Legal Health Record. If you have any questions, please contact the author of this message via ITS. Doctor/Provider: Dell Pike MD: Severe Malnutrition is documented in the H&P 02/21. Additional clarification regarding the malnutrition is requested. History/Risk Factors: 54-year-old female with a history of DM, HTN, musculoskeletal disorder, J-tube and TPN and neuropathy who presents with gastroparesis symptoms Clinical Indicators: 02/20 BMI: 16.6 Height: 4ft 11inches Weight: 37.195kg 02/20 RD Assessment, Diagnosis: "Altered GI function as related to gastroparesis secondary to uncontrolled diabetes as evidenced by high blood sugar and need for TPN." BMI Classification: "Underweight." Treatment: Consult RD TPN Clear liquid diet ordered 02/22 Please clarify the severity of malnutrition, if known: [ ] Severe Protein-Calorie Malnutrition [ ] Other condition, please specify [ ] Unable to Determine Severe protein calorie malnutrition answered in Surgery PN 02/26 MTDD
[2024-02-25 11:10] LABS: Glucose,Whole Blood 343 mg/dL (70-110)
[2024-02-25] MEDS: [UNRECOGNIZED DRUG - REMARK] IV SCH (12:41)
[2024-02-25 16:22] LABS: Glucose,Whole Blood 271 mg/dL (70-110)
--- NOTE | 2024-02-25 20:22 | PN ---
PROGRESS NOTE SUBJECTIVE: A 54-year-old white female with as worsening abdominal pain today with wound PEG tube and gastroduodenal tube drainage of yellow mucus. Possibly get Infectious Disease and Surgery to look at this for possible infection, as she still has worsening abdominal pain and nausea. Sodium is 134, potassium is 5.5. Sugars are in the 200s to 300s. OBJECTIVE: VITAL SIGNS: Pulse is 105 to 113, blood pressure 116/73, O2 98% on room air, temp 99.1. CARDIOVASCULAR: S1, S2. LUNGS: Transmitted upper airway sounds. Decreased breath sounds. GI: Yellow serous drainage from the PEG tube. PSYCHIATRIC: Fair mood and affect. ASSESSMENT: Insulin-dependent diabetes mellitus, abdominal pain acute on chronic with wound dressing infection most likely. Wait for Infectious Disease as well as Surgery to see the patient for possible infection. She is on TPN. She is on her insulin. I am going to do procalcitonin level to see for infection and wait for Infectious Disease to see as well as Surgery. Prognosis guarded. MMODL / IJN: [id number] /
[2024-02-25 20:50] LABS: Glucose,Whole Blood 261 mg/dL (70-110)
[2024-02-25] MEDS: ACETAMINOPHEN TAB 325 MG TAB PO PRN (21:05)
[2024-02-25] MEDS: MVI, ADULT NO.4 WITH VIT K 10 ML, TRACE (CONC-1ML/DOSE) 1 ML, SODIUM ACETATE 40 MEQ, MA... IV SCH (22:10)
[2024-02-26 06:17] LABS: Glucose,Whole Blood 400 mg/dL (70-110)
[2024-02-26 07:48] LABS: ALT 41 U/L (4-34); AST 44 U/L (14-36); African American GFR (CKD) >90 (>60 ml/min/1.73 sqM); Albumin 2.6 g/dL (3.5-5.0); Albumin/Globulin Ratio 0.8; Alkaline Phosphatase 166 U/L (38-126); Anion Gap 5 mmol/L; Blood Urea Nitrogen 27 mg/dL (7-17); Calcium 8.6 mg/dL (8.4-10.2); Carbon Dioxide 28 mmol/L (22-30); Chloride 96 mmol/L (98-107); Globulin 3.1 g/dL; Glucose 395 mg/dL (74-99); Magnesium 1.6 mg/dL (1.6-2.3); Non-African American GFR(CKD) 88 (>60 ml/min/1.73 sqM); Phosphorus 3.8 mg/dL (2.5-4.5); Potassium 4.7 mmol/L (3.5-5.1); Sodium 129 mmol/L (137-145); Total Bilirubin 0.4 mg/dL (0.2-1.3); Total Protein 5.7 g/dL (6.3-8.2)
[2024-02-26 10:36] LABS: Basophils # (A) 0.04 X 10*3/uL (0.00-0.10); Basophils % (A) 0.4 %; Eosinophils # (A) 0.13 X 10*3/uL (0.04-0.35); Eosinophils % (A) 1.2 %; HCT 31.3 % (37.2-46.3); HGB 9.8 g/dL (12.0-15.0); Lymphocytes # (A) 0.95 X 10*3/uL (0.90-5.00); MCH 28.3 pg (27.0-32.0); MCHC 31.3 g/dL (32.0-37.0); MCV 90.5 FL (80.0-97.0); Mean Platelet Volume 10.6 FL (9.5-12.2); Monocytes # (A) 0.66 X 10*3/uL (0.20-1.00); Monocytes % (A) 6.3 %; NRBC Per 100 WBC 0 X 10*3/uL (0.00-0.01); Neutrophils # (A) 8.66 X 10*3/uL (1.80-7.70); Neutrophils % (A) 82.4 %; Platelet Count 355 X 10*3/uL (140-440); RBC 3.46 X 10*6/uL (4.10-5.20); WBC 10.51 X 10*3/uL (4.50-10.00)
[2024-02-26 11:09] LABS: ALT 41 U/L (4-34); AST 55 U/L (14-36); African American GFR (CKD) 88 (>60 ml/min/1.73 sqM); Albumin 2.3 g/dL (3.5-5.0); Albumin/Globulin Ratio 0.8; Alkaline Phosphatase 147 U/L (38-126); Anion Gap 6 mmol/L; Blood Urea Nitrogen 29 mg/dL (7-17); Calcium 8.1 mg/dL (8.4-10.2); Carbon Dioxide 26 mmol/L (22-30); Chloride 96 mmol/L (98-107); Globulin 2.8 g/dL; Glucose 420 mg/dL (74-99); Non-African American GFR(CKD) 76 (>60 ml/min/1.73 sqM); Potassium 3.9 mmol/L (3.5-5.1); Sodium 128 mmol/L (137-145); Total Bilirubin 0.2 mg/dL (0.2-1.3); Total Protein 5.1 g/dL (6.3-8.2)
[2024-02-26 11:10] LABS: Glucose,Whole Blood 418 mg/dL (70-110)
[2024-02-26] MEDS: PIPERACILLIN-TAZOBACTAM 3.375 GM in SODIUM CHLORIDE 0.9% 100 ML IVPB SCH (11:23)
--- NOTE | 2024-02-26 14:09 | P.GSCN ---
History of Present Illness Consult date: 02/26/24 History of present illness: CHIEF COMPLAINT: Abdominal pain HISTORY OF PRESENT ILLNESS: This is a 54-year-old female with a known history of diabetes and gastroparesis. Patient had open jejunostomy placement on January 14. Patient reports she had been tolerating the tube feeds. And apparently over the last month tube feeds were discontinued and she was started on TPN. Patient reports that TPN was started because she was needing more nutrition. Patient does report chronic abdominal pain and nausea. She has had fevers as high as 103. Tachycardic. White count normal at 7.9. Blood sugars are elevated. She did have some drainage around the PEG tube site. The midline incision no evidence of infection. Patient seen and examined with Dr. Garzon PAST MEDICAL HISTORY: Diabetes Mellitus, Hypertension, Musculoskeletal Disorder PAST SURGICAL HISTORY: Cholecystectomy, Orthopedic Surgery, Tubal Ligation, J-tube placement MEDICATIONS: See below ALLERGIES: See below SOCIAL HISTORY: No illicit drug use. REVIEW OF SYSTEMS: CONSTITUTIONAL: Denies fever or chills. HEENT: Denies blurred vision, vision changes, or eye pain. Denies hemoptysis CARDIOVASCULAR: Denies chest pain or pressure. RESPIRATORY: No shortness of breath. GASTROINTESTINAL: See HPI for pertinent findings HEMATOLOGIC: Denies bleeding disorders. GENITOURINARY: Denies any blood in urine or increased urinary frequency. SKIN: Denies pruitis. Denies rash. PHYSICAL EXAM: VITAL SIGNS: Reviewed GENERAL: Well-developed in no acute distress. HEENT: No sclera icterus. Extraocular movements grossly intact. Moist buccal mucosa. Head is atraumatic, normocephalic. No nasal drainage. ABDOMEN: Soft. Nondistended. Mild diffuse tenderness. Minimal drainage around PEG tube site. drainage is dark greenish noted on dressing. Midline incision clean dry and intact with a small scab NEUROLOGIC: Alert and oriented. Cranial nerves II through XII grossly intact. LABORATORY DATA: WBC 10.5 Hgb 9.8 platelets 355 Sodium 128 potassium is 3.9 creatinine 0.88 Mildly elevated LFTs IMAGING: Chest CT pending ASSESSMENT: 1. Chronic abdominal pain 2. Uncontrolled diabetes mellitus 3. Gastroparesis 4. Fevers PLAN: -No evidence of infection and J-tube site. Recommend restarting tube feeds. Consult dietitian to initiate tube feeds through J-tube -Fever workup per infectious disease Physician Line Walker note has been reviewed by physician. Signing provider agrees with the documented findings, assessment, and plan of care. 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 MDRO Source:: Urine VRE and ESBL, MRSA-ABD Past Surgical History: Cholecystectomy, Orthopedic Surgery, Tubal Ligation Additional Past Surgical History / Comment(s): rt shoulder, J tube placement Past Anesthesia/Blood Transfusion Reactions: No Reported Reaction Additional Past Anesthesia/Blood Transfusion Reaction / Comm: UNK FAMILY HX Past Psychological History: Anxiety Smoking Status: Current every day smoker Past Alcohol Use History: None Reported Additional Past Alcohol Use History / Comment(s): STARTED SMOKING 1987, smokes a bout 6 cigs/day Past Drug Use History: None Reported Additional Drug Use History / Comment(s): Patient denies using marijuana. - Past Family History Father History Unknown: Yes Additional Family Medical History / Comment(s): unknown-adopted Mother History Unknown: Yes Additional Family Medical History / Comment(s): unknown- adopted Medications and Allergies Home Medications Medication Instructions Recorded Confirmed Type ALPRAZolam [Xanax] 0.25 mg PO BID 05/12/23 02/21/24 History Atorvastatin [Lipitor] 20 mg PO DAILY 05/12/23 02/21/24 History Insulin Lispro [humaLOG Kwikpen] See Protocol SQ ACHS 05/12/23 02/21/24 History Mirtazapine [Remeron] 30 mg PO HS 05/12/23 02/21/24 History Metoclopramide [Reglan] 10 mg PO ACHS 30 Days #120 tab 05/15/23 02/21/24 Rx Pantoprazole [Protonix] 40 mg PO AC-BID 30 Days #60 tab 05/21/23 02/21/24 Rx Folic Acid 1 mg PO DAILY 06/15/23 02/21/24 History HYDROcodone/APAP 7.5-325MG [[place] 1 tab PO TID 08/25/23 02/21/24 History 7.5-325] Ferrous Sulfate [Iron (65 MG 325 mg PO DAILY 12/09/23 02/21/24 History Elemental)] Insulin Glargine [Lantus Vial] 10 unit SQ DAILY 12/09/23 02/21/24 History Doxycycline [Vibramycin] 100 mg PO BID 30 Days #60 cap 12/19/23 02/21/24 Rx amLODIPine [Norvasc] 5 mg PO DAILY 90 Days #90 tab 12/19/23 02/21/24 Rx Famotidine [Pepcid] 20 mg PO BID 30 Days #60 tab 01/18/24 02/21/24 Rx [place]-3/Dha/Epa/Fish Oil [Fish Oil 1 cap PO DAILY 02/21/24 02/21/24 History 1,000 mg Softgel] Ondansetron [Zofran] 4 mg PO BID 02/21/24 02/21/24 History Sennosides [Senokot] 8.6 mg PO BID 02/21/24 02/21/24 History methocarbamoL [Robaxin] 250 mg PO QID 02/21/24 02/21/24 History Allergies Allergy/AdvReac Type Severity Reaction Status Date / Time fentanyl AdvReac "wobbly" Verified 02/21/24 15:24 Surgical - Exam Vital Signs Temp Pulse Resp BP Pulse Ox 98.1 F 106 H 16 94/63 97 02/21/24 11:35 02/21/24 11:35 02/21/24 11:35 02/21/24 11:35 02/21/24 11:35 Results - Labs 02/26/24 07:04 02/26/24 10:16 Abnormal Lab Results - Last 24 Hours (Table) 02/25/24 02/25/24 02/25/24 Range/Units 04:43 16:21 20:49 WBC (4.50-10.00) X 10*3/uL RBC (4.10-5.20) X 10*6/uL Hgb (12.0-15.0) g/dL Hct (37.2-46.3) % MCHC (32.0-37.0) g/dL RDW (11.5-14.5) % Immature Gran # (0.00-0.04) X 10*3/uL Neutrophils # (1.80-7.70) X 10*3/uL Sodium (137-145) mmol/L Chloride (98-107) mmol/L BUN (7-17) mg/dL Glucose (74-99) mg/dL POC Glucose (mg/dL) 271 H 261 H (70-110) mg/dL Calcium (8.4-10.2) mg/dL AST (14-36) U/L ALT (4-34) U/L Alkaline Phosphatase (38-126) U/L Total Protein (6.3-8.2) g/dL Albumin (3.5-5.0) g/dL Procalcitonin 0.64 H (0.02-0.50) ng/mL 02/26/24 02/26/24 02/26/24 Range/Units 06:16 07:04 07:04 WBC 10.51 H (4.50-10.00) X 10*3/uL RBC 3.46 L (4.10-5.20) X 10*6/uL Hgb 9.8 L (12.0-15.0) g/dL Hct 31.3 L (37.2-46.3) % MCHC 31.3 L (32.0-37.0) g/dL RDW 15.0 H (11.5-14.5) % Immature Gran # 0.07 H (0.00-0.04) X 10*3/uL Neutrophils # 8.66 H (1.80-7.70) X 10*3/uL Sodium 129 L (137-145) mmol/L Chloride 96 L (98-107) mmol/L BUN 27 H (7-17) mg/dL Glucose 395 H (74-99) mg/dL POC Glucose (mg/dL) 400 H (70-110) mg/dL Calcium (8.4-10.2) mg/dL AST 44 H (14-36) U/L ALT 41 H (4-34) U/L Alkaline Phosphatase 166 H (38-126) U/L Total Protein 5.7 L (6.3-8.2) g/dL Albumin 2.6 L (3.5-5.0) g/dL Procalcitonin (0.02-0.50) ng/mL 09/11/24 09/11/24 Range/Units 10:16 11:07 WBC (4.50-10.00) X 10*3/uL RBC (4.10-5.20) X 10*6/uL Hgb (12.0-15.0) g/dL Hct (37.2-46.3) % MCHC (32.0-37.0) g/dL RDW (11.5-14.5) % Immature Gran # (0.00-0.04) X 10*3/uL Neutrophils # (1.80-7.70) X 10*3/uL Sodium 128 L (137-145) mmol/L Chloride 96 L (98-107) mmol/L BUN 29 H (7-17) mg/dL Glucose 420 H (74-99) mg/dL POC Glucose (mg/dL) 418 H (70-110) mg/dL Calcium 8.1 L (8.4-10.2) mg/dL AST 55 H (14-36) U/L ALT 41 H (4-34) U/L Alkaline Phosphatase 147 H (38-126) U/L Total Protein 5.1 L (6.3-8.2) g/dL Albumin 2.3 L (3.5-5.0) g/dL Procalcitonin (0.02-0.50) ng/mL Diabetes panel 02/26/24 02/26/24 Range/Units 07:04 10:16 Sodium 129 L 128 L (137-145) mmol/L Potassium 4.7 3.9 (3.5-5.1) mmol/L Chloride 96 L 96 L (98-107) mmol/L Carbon Dioxide 28 26 (22-30) mmol/L BUN 27 H 29 H (7-17) mg/dL Creatinine 0.78 0.88 (0.52-1.04) mg/dL Glucose 395 H 420 H (74-99) mg/dL Calcium 8.6 8.1 L (8.4-10.2) mg/dL AST 44 H 55 H (14-36) U/L ALT 41 H 41 H (4-34) U/L Alkaline Phosphatase 166 H 147 H (38-126) U/L Total Protein 5.7 L 5.1 L (6.3-8.2) g/dL Albumin 2.6 L 2.3 L (3.5-5.0) g/dL Calcium panel 02/26/24 02/26/24 Range/Units 07:04 10:16 Calcium 8.6 8.1 L (8.4-10.2) mg/dL Phosphorus 3.8 (2.5-4.5) mg/dL Albumin 2.6 L 2.3 L (3.5-5.0) g/dL Pituitary panel 02/26/24 02/26/24 Range/Units 07:04 10:16 Sodium 129 L 128 L (137-145) mmol/L Potassium 4.7 3.9 (3.5-5.1) mmol/L Chloride 96 L 96 L (98-107) mmol/L Carbon Dioxide 28 26 (22-30) mmol/L BUN 27 H 29 H (7-17) mg/dL Creatinine 0.78 0.88 (0.52-1.04) mg/dL Glucose 395 H 420 H (74-99) mg/dL Calcium 8.6 8.1 L (8.4-10.2) mg/dL Adrenal panel 02/26/24 02/26/24 Range/Units 07:04 10:16 Sodium 129 L 128 L (137-145) mmol/L Potassium 4.7 3.9 (3.5-5.1) mmol/L Chloride 96 L 96 L (98-107) mmol/L Carbon Dioxide 28 26 (22-30) mmol/L BUN 27 H 29 H (7-17) mg/dL Creatinine 0.78 0.88 (0.52-1.04) mg/dL Glucose 395 H 420 H (74-99) mg/dL Calcium 8.6 8.1 L (8.4-10.2) mg/dL Total Bilirubin 0.4 0.2 (0.2-1.3) mg/dL AST 44 H 55 H (14-36) U/L ALT 41 H 41 H (4-34) U/L Alkaline Phosphatase 166 H 147 H (38-126) U/L Total Protein 5.7 L 5.1 L (6.3-8.2) g/dL Albumin 2.6 L 2.3 L (3.5-5.0) g/dL
[2024-02-26 15:20] LABS: Glucose,Whole Blood 120 mg/dL (70-110)
[2024-02-26 16:31] LABS: Glucose,Whole Blood 96 mg/dL (70-110)
[2024-02-26 17:43] LABS: Glucose,Whole Blood 91 mg/dL (70-110)
[2024-02-26 20:51] LABS: Glucose,Whole Blood 116 mg/dL (70-110)
--- NOTE | 2024-02-26 22:19 | P.CONS ---
History of Present Illness - Reason for Consult Consult date: 02/26/24 Abdominal wound infection Requesting physician: Dell Pike - Chief Complaint Fever x 1 day - History of Present Illness Patient is a 54-year-old female with multiple comorbidities including diabetes mellitus hypertension diabetic gastroparesis and did have a jejunostomy tube placement on January 15, 2024 patient presented to hospital about 5 days ago for evaluation of gastroparesis symptoms as reported by the ER physician apparently the patient mention she was having abdominal pain nausea and vomiting unable to keep anything down patient on presentation to the hospital was afebrile however she did spike a fever last night of 102.6 F, patient has been tachycardic but not hypotensive or hypoxic patient did have a white count of 10.5 point creatinine 0.88 liver isms mildly elevated urine has been negative SARS-CoV-2 testing was negative infectious he was consulted for possible drainage around the jejunostomy tube site and concerning for abdominal wound infection, patient mention she did have some drainage earlier however they seem to have dried out denies any worsening abdominal pain no diarrhea or urinary symptoms patient did have a PICC line through with the patient is getting her TPN Review of Systems Positive point and negatives has been mentioned in the HPI, complete review of systems was performed and all other systems are negative 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 MDRO Source:: Urine VRE and ESBL, MRSA-ABD Past Surgical History: Cholecystectomy, Orthopedic Surgery, Tubal Ligation Additional Past Surgical History / Comment(s): rt shoulder, J tube placement Past Anesthesia/Blood Transfusion Reactions: No Reported Reaction Additional Past Anesthesia/Blood Transfusion Reaction / Comm: UNK FAMILY HX Past Psychological History: Anxiety Smoking Status: Current every day smoker Past Alcohol Use History: None Reported Additional Past Alcohol Use History / Comment(s): STARTED SMOKING 1987, smokes about 6 cigs/day Past Drug Use History: None Reported Additional Drug Use History / Comment(s): Patient denies using marijuana. - Past Family History Father History Unknown: Yes Additional Family Medical History / Comment(s): unknown-adopted Mother History Unknown: Yes Additional Family Medical History / Comment(s): unknown- adopted Medications and Allergies Home Medications Medication Instructions Recorded Confirmed Type ALPRAZolam [Xanax] 0.25 mg PO BID 05/12/23 02/21/24 History Atorvastatin [Lipitor] 20 mg PO DAILY 05/12/23 02/21/24 History Insulin Lispro [humaLOG Kwikpen] See Protocol SQ ACHS 05/12/23 02/21/24 History Mirtazapine [Remeron] 30 mg PO HS 05/12/23 02/21/24 History Metoclopramide [Reglan] 10 mg PO ACHS 30 Days #120 tab 05/15/23 02/21/24 Rx Pantoprazole [Protonix] 40 mg PO AC-BID 30 Days #60 tab 05/21/23 02/21/24 Rx Folic Acid 1 mg PO DAILY 06/15/23 02/21/24 History HYDROcodone/APAP 7.5-325MG [[place] 1 tab PO TID 08/25/23 02/21/24 History 7.5-325] Ferrous Sulfate [Iron (65 MG 325 mg PO DAILY 12/09/23 02/21/24 History Elemental)] Insulin Glargine [Lantus Vial] 10 unit SQ DAILY 12/09/23 02/21/24 History Doxycycline [Vibramycin] 100 mg PO BID 30 Days #60 cap 12/19/23 02/21/24 Rx amLODIPine [Norvasc] 5 mg PO DAILY 90 Days #90 tab 12/19/23 02/21/24 Rx Famotidine [Pepcid] 20 mg PO BID 30 Days #60 tab 01/18/24 02/21/24 Rx [place]-3/Dha/Epa/Fish Oil [Fish Oil 1 cap PO DAILY 02/21/24 02/21/24 History 1,000 mg Softgel] Ondansetron [Zofran] 4 mg PO BID 02/21/24 02/21/24 History Sennosides [Senokot] 8.6 mg PO BID 02/21/24 02/21/24 History methocarbamoL [Robaxin] 250 mg PO QID 02/21/24 02/21/24 History Allergies Allergy/AdvReac Type Severity Reaction Status Date / Time fentanyl AdvReac "wobbly" Verified 02/21/24 15:24 Physical Exam Vitals: Vital Signs Temp Pulse Resp BP Pulse Ox 02/26/24 07:45 103 F H 120 H 17 150/84 92 L 02/26/24 00:21 100.7 F H 121 H 16 145/77 98 02/25/24 19:12 102.6 F H 125 H 17 151/70 96 02/25/24 14:00 99.1 F 113 H 17 116/73 98 Intake and Output 02/25/24 02/26/24 02/26/24 22:59 06:59 14:59 Other: Voiding Method Bedside Commode # Voids 3 2 GENERAL DESCRIPTION: Middle-aged female lying in bed, no distress. No tachypnea or accessory muscle of respiration use. HEENT: Shows Pallor , no scleral icterus. Oral mucous membrane is dry. No pharyngeal erythema or thrush NECK: Trachea central, no thyromegaly. LUNGS: Unlabored breathing. Clear to auscultation anteriorly. No wheeze or crackle. HEART: S1, S2, regular rate and rhythm. No loud murmur ABDOMEN: Soft, mild distention no drainage from the PEG tube site EXTREMITIES: No edema of feet. SKIN: No rash, no masses palpable. NEUROLOGICAL: The patient is awake, alert, oriented x3, mood and affect normal. Results CBC & Chem 7: 02/26/24 07:04 02/26/24 10:16 Labs: Abnormal Lab Results - Last 24 Hours (Table) 02/25/24 02/25/24 02/25/24 Range/Units 04:43 11:09 16:21 WBC (4.50-10.00) X 10*3/uL RBC (4.10-5.20) X 10*6/uL Hgb (12.0-15.0) g/dL Hct (37.2-46.3) % MCHC (32.0-37.0) g/dL RDW (11.5-14.5) % Immature Gran # (0.00-0.04) X 10*3/uL Neutrophils # (1.80-7.70) X 10*3/uL Sodium (137-145) mmol/L Chloride (98-107) mmol/L BUN (7-17) mg/dL Glucose (74-99) mg/dL POC Glucose (mg/dL) 343 H 271 H (70-110) mg/dL AST (14-36) U/L ALT (4-34) U/L Alkaline Phosphatase (38-126) U/L Total Protein (6.3-8.2) g/dL Albumin (3.5-5.0) g/dL Procalcitonin 0.64 H (0.02-0.50) ng/mL 02/25/24 02/26/24 02/26/24 Range/Units 20:49 06:16 07:04 WBC (4.50-10.00) X 10*3/uL RBC (4.10-5.20) X 10*6/uL Hgb (12.0-15.0) g/dL Hct (37.2-46.3) % MCHC (32.0-37.0) g/dL RDW (11.5-14.5) % Immature Gran # (0.00-0.04) X 10*3/uL Neutrophils # (1.80-7.70) X 10*3/uL Sodium 129 L (137-145) mmol/L Chloride 96 L (98-107) mmol/L BUN 27 H (7-17) mg/dL Glucose 395 H (74-99) mg/dL POC Glucose (mg/dL) 261 H 400 H (70-110) mg/dL AST 44 H (14-36) U/L ALT 41 H (4-34) U/L Alkaline Phosphatase 166 H (38-126) U/L Total Protein 5.7 L (6.3-8.2) g/dL Albumin 2.6 L (3.5-5.0) g/dL Procalcitonin (0.02-0.50) ng/mL 02/26/24 Range/Units 07:04 WBC 10.51 H (4.50-10.00) X 10*3/uL RBC 3.46 L (4.10-5.20) X 10*6/uL Hgb 9.8 L (12.0-15.0) g/dL Hct 31.3 L (37.2-46.3) % MCHC 31.3 L (32.0-37.0) g/dL RDW 15.0 H (11.5-14.5) % Immature Gran # 0.07 H (0.00-0.04) X 10*3/uL Neutrophils # 8.66 H (1.80-7.70) X 10*3/uL Sodium (137-145) mmol/L Chloride (98-107) mmol/L BUN (7-17) mg/dL Glucose (74-99) mg/dL POC Glucose (mg/dL) (70-110) mg/dL AST (14-36) U/L ALT (4-34) U/L Alkaline Phosphatase (38-126) U/L Total Protein (6.3-8.2) g/dL Albumin (3.5-5.0) g/dL Procalcitonin (0.02-0.50) ng/mL Assessment and Plan (1) Sepsis Current Visit: Yes Status: Acute Code(s): A41.9 - SEPSIS, UNSPECIFIED ORGANISM SNOMED Code(s): 39806490 (2) Fever Current Visit: Yes Status: Acute Code(s): R50.9 - FEVER, UNSPECIFIED SNOMED Code(s): 747948711 Plan: 1patient with sepsis in this patient who did have fever tachycardia mild elevated white count with initial concern for possible jejunostomy tube site infection she did have some distention but no significant redness or drainage was noticed around the jejunostomy tube site patient did have a PICC line through the patient is getting TPN could be the source of this fever and sepsis 2-we will repeat blood cultures from the PICC line peripherally 3-Zosyn has been started by admitting physician we will add daptomycin to cover for the gram-positive We will follow on clinical condition and cultures to further adjust medication if needed Thank you for this consultation we will follow the patient along with you Dictation was produced using [employer] dictation software. please excuse any grammatical, word or spelling errors. Time with Patient: Greater than 30
[2024-02-27 02:12] LABS: Glucose,Whole Blood 66 mg/dL (70-110)
[2024-02-27 02:35] LABS: Glucose,Whole Blood 64 mg/dL (70-110)
[2024-02-27 03:07] LABS: Glucose,Whole Blood 196 mg/dL (70-110)
[2024-02-27 05:53] LABS: Glucose,Whole Blood 135 mg/dL (70-110)
[2024-02-27 06:10] LABS: African American GFR (CKD) 60 (>60 ml/min/1.73 sqM); Anion Gap 7 mmol/L; Blood Urea Nitrogen 31 mg/dL (7-17); Calcium 7.9 mg/dL (8.4-10.2); Carbon Dioxide 27 mmol/L (22-30); Chloride 99 mmol/L (98-107); Glucose 143 mg/dL (74-99); Non-African American GFR(CKD) 52 (>60 ml/min/1.73 sqM); Sodium 133 mmol/L (137-145)
[2024-02-27 06:14] LABS: Magnesium 1.6 mg/dL (1.6-2.3); Phosphorus 5.2 mg/dL (2.5-4.5)
[2024-02-27] MEDS: MAGNESIUM SULFATE-D5W PMX 1 GM in DEXTROSE/WATER 1 100ML.BAG IVPB SCH (11:45)
[2024-02-27 11:55] LABS: Glucose,Whole Blood 170 mg/dL (70-110)
--- NOTE | 2024-02-27 14:13 | P.PN ---
Subjective Progress Note Date: 02/27/24 Principal diagnosis: Reason for follow-up is fever concern for possible PICC infection Patient is a 54-year-old female with multiple comorbidities including diabetes mellitus hypertension diabetic gastroparesis and did have a jejunostomy tube placement on January 15, 2024, patient also have a double-lumen PICC line placement to the left upper arm about a month ago for TPN has developed fever prompting this consultation. On today's evaluation that is 02/27/2024,the patient did have improvement in her fever pattern and afebrile this morning patient is recommending a feeling weak no energy no chest pain shortness of breath or cough, any worsening abdominal pain no vomiting or diarrhea reported. Patient did have a creatinine of 1.20 no CBC was done today blood culture obtain ed yesterday pending Objective - Vital Signs Vital signs: Vital Signs Temp 98.9 F 02/27/24 07:57 Pulse 119 H 02/27/24 11:35 Resp 16 02/27/24 07:21 BP 96/52 02/27/24 11:35 Pulse Ox 91 L 02/27/24 07:21 FiO2 Intake & Output 02/26/24 02/27/24 02/27/24 18:59 06:59 18:59 Intake Total 120 Balance 120 Weight 37.195 kg Intake: Oral 120 Other: Voiding Method Bedside Commode # Voids 2 1 - Exam GENERAL DESCRIPTION: Middle-age female lying in bed in no distress RESPIRATORY SYSTEM: Unlabored breathing , decreased breath sounds at bases HEART: S1 S2 regular rate and rhythm , ABDOMEN: Soft , no tenderness EXTREMITIES: No edema feet - Labs CBC & Chem 7: 02/26/24 07:04 02/27/24 05:06 Labs: Abnormal Lab Results - Last 24 Hours (Table) 02/26/24 02/26/24 02/27/24 Range/Units 15:16 20:50 02:10 Sodium (137-145) mmol/L BUN (7-17) mg/dL Creatinine (0.52-1.04) mg/dL Glucose (74-99) mg/dL POC Glucose (mg/dL) 120 H 116 H 66 L (70-110) mg/dL Calcium (8.4-10.2) mg/dL Phosphorus (2.5-4.5) mg/dL Triglycerides (0.00-149.00) mg/dL 02/27/24 02/27/24 02/27/24 Range/Units 02:34 03:05 05:06 Sodium 133 L (137-145) mmol/L BUN 31 H (7-17) mg/dL Creatinine 1.20 H (0.52-1.04) mg/dL Glucose 143 H (74-99) mg/dL POC Glucose (mg/dL) 64 L 196 H (70-110) mg/dL Calcium 7.9 L (8.4-10.2) mg/dL Phosphorus 5.2 H (2.5-4.5) mg/dL Triglycerides 237.00 H (0.00-149.00) mg/dL 02/27/24 02/27/24 Range/Units 05:50 11:54 Sodium (137-145) mmol/L BUN (7-17) mg/dL Creatinine (0.52-1.04) mg/dL Glucose (74-99) mg/dL POC Glucose (mg/dL) 135 H 170 H (70-110) mg/dL Calcium (8.4-10.2) mg/dL Phosphorus (2.5-4.5) mg/dL Triglycerides (0.00-149.00) mg/dL Assessment and Plan (1) Sepsis Current Visit: Yes Status: Acute Code(s): A41.9 - SEPSIS, UNSPECIFIED ORGANISM SNOMED Code(s): 76100752 (2) Fever Current Visit: Yes Status: Acute Code(s): R50.9 - FEVER, UNSPECIFIED SNOMED Code(s): 301208257 Plan: 1patient with sepsis in this patient who did have fever tachycardia mild elevated white count with initial concern for possible jejunostomy tube site infection she did have some distention but no significant redness or drainage was noticed around the jejunostomy tube site patient did have a PICC line through the patient is getting TPN could be the source of this fever and sepsis 2-peripheral blood culture obtained nursing staff was not able to get culture from the PICC line 3-patient to continue with Zosyn and daptomycin while waiting for the culture to finalize Dictation was produced using [employer] dictation software. please excuse any grammatical, word or spelling errors. Time with Patient: Less than 30
--- NOTE | 2024-02-27 15:30 | P.PN ---
Subjective Progress Note Date: 02/27/24 CHIEF COMPLAINT: Abdominal pain HISTORY OF PRESENT ILLNESS: Tube feeds initially started yesterday through patient's J-tube. Unfortunately she did not tolerate the tube feeds and they were stopped last night. Patient still continues to have some nausea. She reports that she has chronic abdominal pain. She is having bowel movements. She did have a fever last night of 102. Currently afebrile. Mildly tachycardic. Creatinine is 1.20. WBC from yesterday 10.5 PHYSICAL EXAM: VITAL SIGNS: Reviewed. GENERAL: no acute distress. ABDOMEN: Soft. Nondistended. Diffuse tenderness. J tube site no erythema no evidence of infection. There is some mild mucus noted around the J tube site. NEUROLOGIC: Alert and oriented. Cranial nerves II through XII grossly intact. ASSESSMENT: 1. Chronic abdominal pain 2. Uncontrolled diabetes mellitus 3. Gastroparesis 4. Fevers 5. Severe protein calorie malnutrition PLAN: -Discussed case with nurse. Will have dietitian reevaluate patient to possibly use a different tube feed formula. And to start tube feeds at a lower rate and titrate -There is no evidence of any infection at the G-tube site. -Fever workup per infectious disease -[facility] Physician Mold Filling Operator note has been reviewed by physician. Signing provider agrees with the documented findings, assessment, and plan of care. Objective - Vital Signs Vital signs: Vital Signs Temp 98.9 F 02/27/24 07:57 Pulse 119 H 02/27/24 11:35 Resp 16 02/27/24 07:21 BP 96/52 02/27/24 11:35 Pulse Ox 91 L 02/27/24 07:21 FiO2 Intake & Output 02/26/24 02/27/24 02/27/24 18:59 06:59 18:59 Intake Total 120 Balance 120 Weight 37.195 kg Intake: Oral 120 Other: Voiding Method Bedside Commode # Voids 2 1 - Labs CBC & Chem 7: 02/26/24 07:04 02/27/24 05:06 Labs: Abnormal Lab Results - Last 24 Hours (Table) 02/26/24 02/27/24 02/27/24 Range/Units 20:50 02:10 02:34 Sodium (137-145) mmol/L BUN (7-17) mg/dL Creatinine (0.52-1.04) mg/dL Glucose (74-99) mg/dL POC Glucose (mg/dL) 116 H 66 L 64 L (70-110) mg/dL Calcium (8.4-10.2) mg/dL Phosphorus (2.5-4.5) mg/dL Triglycerides (0.00-149.00) mg/dL 02/27/24 02/27/24 02/27/24 Range/Units 03:05 05:06 05:50 Sodium 133 L (137-145) mmol/L BUN 31 H (7-17) mg/dL Creatinine 1.20 H (0.52-1.04) mg/dL Glucose 143 H (74-99) mg/dL POC Glucose (mg/dL) 196 H 135 H (70-110) mg/dL Calcium 7.9 L (8.4-10.2) mg/dL Phosphorus 5.2 H (2.5-4.5) mg/dL Triglycerides 237.00 H (0.00-149.00) mg/dL 02/27/24 Range/Units 11:54 Sodium (137-145) mmol/L BUN (7-17) mg/dL Creatinine (0.52-1.04) mg/dL Glucose (74-99) mg/dL POC Glucose (mg/dL) 170 H (70-110) mg/dL Calcium (8.4-10.2) mg/dL Phosphorus (2.5-4.5) mg/dL Triglycerides (0.00-149.00) mg/dL
[2024-02-27] MEDS: POTASSIUM CHLORIDE 10 MEQ in WATER FOR INJECTION 1 100ML.BAG IVPB ONE (15:46)
[2024-02-27 17:01] LABS: Glucose,Whole Blood 194 mg/dL (70-110)
--- NOTE | 2024-02-27 19:58 | PN ---
PROGRESS NOTE SUBJECTIVE: Lesa Patterson has had fevers over the last couple of days. Blood pressure is low at 80s to 90s over 50 to 48, currently 115/65, pulse is 115, temp 98. Sodium 133, potassium 4.0, BUN is 31, creatinine 1.2. GFR is 52. Clean-catch culture came back, no growth for [address] Brunson has seen her. CBC is pending. OBJECTIVE: CARDIAC: S1, S2. LUNGS: Clear. GI: Soft. She has some kind of drainage from the wound for which Dr. Brunson is being covered for sepsis, fever. Significant redness or drainage was noticed around the jejunostomy site. She had a PICC line. The patient is getting TPN. Source of fever is sepsis. Peripheral blood cultures obtained. Cultures from the PICC line. Continue Zosyn, daptomycin. Wait for the cultures to finalize. Prognosis guarded. MMODL / IJN: [id number] /
[2024-02-27 20:22] LABS: Glucose,Whole Blood 181 mg/dL (70-110)
[2024-02-28 02:32] LABS: Glucose,Whole Blood 186 mg/dL (70-110)
[2024-02-28 05:44] LABS: African American GFR (CKD) 56 (>60 ml/min/1.73 sqM); Anion Gap 7 mmol/L; Blood Urea Nitrogen 26 mg/dL (7-17); Calcium 6.7 mg/dL (8.4-10.2); Carbon Dioxide 21 mmol/L (22-30); Chloride 105 mmol/L (98-107); Glucose 196 mg/dL (74-99); Magnesium 2.3 mg/dL (1.6-2.3); Non-African American GFR(CKD) 49 (>60 ml/min/1.73 sqM); Phosphorus 3.4 mg/dL (2.5-4.5); Potassium 3.9 mmol/L (3.5-5.1); Sodium 133 mmol/L (137-145)
[2024-02-28 06:13] LABS: Glucose,Whole Blood 229 mg/dL (70-110)
[2024-02-28 06:21] LABS: C Reactive Protein 14.7 mg/dL (<1.0)
[2024-02-28 08:42] LABS: Basophils # (A) 0.04 X 10*3/uL (0.00-0.10); Basophils % (A) 0.2 %; Eosinophils # (A) 0.29 X 10*3/uL (0.04-0.35); Eosinophils % (A) 1.8 %; HCT 24.7 % (37.2-46.3); HGB 7.7 g/dL (12.0-15.0); Lymphocytes # (A) 0.71 X 10*3/uL (0.90-5.00); Lymphocytes % (A) 4.4 %; MCH 29.1 pg (27.0-32.0); MCHC 31.2 g/dL (32.0-37.0); MCV 93.2 FL (80.0-97.0); Monocytes # (A) 0.75 X 10*3/uL (0.20-1.00); Monocytes % (A) 4.6 %; NRBC Per 100 WBC 0 X 10*3/uL (0.00-0.01); Neutrophils # (A) 14.26 X 10*3/uL (1.80-7.70); Neutrophils % (A) 88.4 %; Platelet Count 307 X 10*3/uL (140-440); RBC 2.65 X 10*6/uL (4.10-5.20); RDW 14.9 % (11.5-14.5); WBC 16.15 X 10*3/uL (4.50-10.00)
--- NOTE | 2024-02-28 11:30 | P.PN ---
Subjective Progress Note Date: 02/28/24 CHIEF COMPLAINT: Abdominal pain HISTORY OF PRESENT ILLNESS: Patient's tube feed formula has been changed per dietitian. And they are slowly titrating patient up tube feeds. Tube feeds currently at 30 mL/h. Patient reports abdominal pain is better today. Her nausea is less. He has been weaned off of the TPN. Low-grade temp of 100.6 last night. PHYSICAL EXAM: VITAL SIGNS: Reviewed. GENERAL: no acute distress. ABDOMEN: Soft. Nondistended. Minimal tenderness. KEVIN tube site mild skin irritation. No evidence of infection. monroy, green drainage around J-tube site NEUROLOGIC: Alert and oriented. Cranial nerves II through XII grossly intact. ASSESSMENT: 1. Chronic abdominal pain 2. Uncontrolled diabetes mellitus 3. Gastroparesis 4. Fevers 5. Severe protein calorie malnutrition PLAN: -New tube feed formula has been started. Titrate tube feeds per dietitian recommendations -There is no evidence of any infection at the J-tube site. -Fever workup per infectious disease -[facility] Physician Supervisor Logging note has been reviewed by physician. Signing provider agrees with the documented findings, assessment, and plan of care. Objective - Vital Signs Vital signs: Vital Signs Temp 98.7 F 02/28/24 07:09 Pulse 99 02/28/24 07:40 Resp 17 02/28/24 07:40 BP 87/47 02/28/24 07:09 Pulse Ox 94 L 02/28/24 07:09 FiO2 Intake & Output 02/27/24 02/28/24 02/28/24 18:59 06:59 18:59 Weight 37.195 kg 38 kg Other: Voiding Method Bedside Commode # Voids 1 - Labs CBC & Chem 7: 02/28/24 05:09 02/28/24 05:09 Labs: Abnormal Lab Results - Last 24 Hours (Table) 02/27/24 02/27/24 02/27/24 Range/Units 11:54 17:00 20:21 WBC (4.50-10.00) X 10*3/uL RBC (4.10-5.20) X 10*6/uL Hgb (12.0-15.0) g/dL Hct (37.2-46.3) % MCHC (32.0-37.0) g/dL RDW (11.5-14.5) % Immature Gran # (0.00-0.04) X 10*3/uL Neutrophils # (1.80-7.70) X 10*3/uL Lymphocytes # (0.90-5.00) X 10*3/uL Sodium (137-145) mmol/L Carbon Dioxide (22-30) mmol/L BUN (7-17) mg/dL Creatinine (0.52-1.04) mg/dL Glucose (74-99) mg/dL POC Glucose (mg/dL) 170 H 194 H 181 H (70-110) mg/dL Calcium (8.4-10.2) mg/dL C-Reactive Protein (<1.0) mg/dL 02/28/24 02/28/24 02/28/24 Range/Units 02:30 05:09 05:09 WBC 16.15 H (4.50-10.00) X 10*3/uL RBC 2.65 L (4.10-5.20) X 10*6/uL Hgb 7.7 L (12.0-15.0) g/dL Hct 24.7 L (37.2-46.3) % MCHC 31.2 L (32.0-37.0) g/dL RDW 14.9 H (11.5-14.5) % Immature Gran # 0.10 H (0.00-0.04) X 10*3/uL Neutrophils # 14.26 H (1.80-7.70) X 10*3/uL Lymphocytes # 0.71 L (0.90-5.00) X 10*3/uL Sodium 133 L (137-145) mmol/L Carbon Dioxide 21 L (22-30) mmol/L BUN 26 H (7-17) mg/dL Creatinine 1.27 H (0.52-1.04) mg/dL Glucose 196 H (74-99) mg/dL POC Glucose (mg/dL) 186 H (70-110) mg/dL Calcium 6.7 L (8.4-10.2) mg/dL C-Reactive Protein 14.7 H (<1.0) mg/dL 02/28/24 Range/Units 06:11 WBC (4.50-10.00) X 10*3/uL RBC (4.10-5.20) X 10*6/uL Hgb (12.0-15.0) g/dL Hct (37.2-46.3) % MCHC (32.0-37.0) g/dL RDW (11.5-14.5) % Immature Gran # (0.00-0.04) X 10*3/uL Neutrophils # (1.80-7.70) X 10*3/uL Lymphocytes # (0.90-5.00) X 10*3/uL Sodium (137-145) mmol/L Carbon Dioxide (22-30) mmol/L BUN (7-17) mg/dL Creatinine (0.52-1.04) mg/dL Glucose (74-99) mg/dL POC Glucose (mg/dL) 229 H (70-110) mg/dL Calcium (8.4-10.2) mg/dL C-Reactive Protein (<1.0) mg/dL Microbiology - Last 24 Hours (Table) 02/26/24 22:33 Blood Culture - Preliminary Blood
[2024-02-28 11:54] LABS: Glucose,Whole Blood 110 mg/dL (70-110)
--- NOTE | 2024-02-28 15:44 | P.PN ---
Subjective Progress Note Date: 02/28/24 Principal diagnosis: Reason for follow-up is fever concern for possible PICC infection Patient is a 54-year-old female with multiple comorbidities including diabetes mellitus hypertension diabetic gastroparesis and did have a jejunostomy tube placement on January 15, 2024, patient also have a double-lumen PICC line placement to the left upper arm about a month ago for TPN has developed fever prompting this consultation. On today's evaluation that is 02/28/2024,the patient did spike a fever again this afternoon of 102.3 F patient also tachycardic. Denies having any chest pa in shortness of breath or cough no worsening abdominal pain no vomiting or diarrhea has been reported. Patient white count is 16.15, creatinine is 1.27 cultures currently pending Objective - Vital Signs Vital signs: Vital Signs Temp 98.7 F 02/28/24 07:09 Pulse 99 02/28/24 07:40 Resp 17 02/28/24 07:40 BP 87/47 02/28/24 07:09 Pulse Ox 94 L 02/28/24 07:09 FiO2 Intake & Output 02/27/24 02/28/24 02/28/24 18:59 06:59 18:59 Weight 37.195 kg 38 kg Other: Voiding Method Bedside Commode # Voids 1 1 - Exam GENERAL DESCRIPTION: Middle-age female lying in bed in no distress RESPIRATORY SYSTEM: Unlabored breathing , decreased breath sounds at bases HEART: S1 S2 regular rate and rhythm , ABDOMEN: Soft , no tenderness EXTREMITIES: No edema feet - Labs CBC & Chem 7: 02/28/24 05:09 02/28/24 05:09 Labs: Abnormal Lab Results - Last 24 Hours (Table) 02/27/24 02/27/24 02/28/24 Range/Units 17:00 20:21 02:30 WBC (4.50-10.00) X 10*3/uL RBC (4.10-5.20) X 10*6/uL Hgb (12.0-15.0) g/dL Hct (37.2-46.3) % MCHC (32.0-37.0) g/dL RDW (11.5-14.5) % Immature Gran # (0.00-0.04) X 10*3/uL Neutrophils # (1.80-7.70) X 10*3/uL Lymphocytes # (0.90-5.00) X 10*3/uL Sodium (137-145) mmol/L Carbon Dioxide (22-30) mmol/L BUN (7-17) mg/dL Creatinine (0.52-1.04) mg/dL Glucose (74-99) mg/dL POC Glucose (mg/dL) 194 H 181 H 186 H (70-110) mg/dL Calcium (8.4-10.2) mg/dL C-Reactive Protein (<1.0) mg/dL 02/28/24 02/28/24 02/28/24 Range/Units 05:09 05:09 06:11 WBC 16.15 H (4.50-10.00) X 10*3/uL RBC 2.65 L (4.10-5.20) X 10*6/uL Hgb 7.7 L (12.0-15.0) g/dL Hct 24.7 L (37.2-46.3) % MCHC 31.2 L (32.0-37.0) g/dL RDW 14.9 H (11.5-14.5) % Immature Gran # 0.10 H (0.00-0.04) X 10*3/uL Neutrophils # 14.26 H (1.80-7.70) X 10*3/uL Lymphocytes # 0.71 L (0.90-5.00) X 10*3/uL Sodium 133 L (137-145) mmol/L Carbon Dioxide 21 L (22-30) mmol/L BUN 26 H (7-17) mg/dL Creatinine 1.27 H (0.52-1.04) mg/dL Glucose 196 H (74-99) mg/dL POC Glucose (mg/dL) 229 H (70-110) mg/dL Calcium 6.7 L (8.4-10.2) mg/dL C-Reactive Protein 14.7 H (<1.0) mg/dL Microbiology - Last 24 Hours (Table) 02/26/24 22:33 Blood Culture - Preliminary Blood Assessment and Plan (1) Sepsis Current Visit: Yes Status: Acute Code(s): A41.9 - SEPSIS, UNSPECIFIED ORGANISM SNOMED Code(s): 88076744 (2) Fever Current Visit: Yes Status: Acute Code(s): R50.9 - FEVER, UNSPECIFIED SNOMED Code(s): 971687817 Plan: 1patient with sepsis in this patient who did have fever tachycardia mild elevated white count with initial concern for possible jejunostomy tube site inf ection she did have some distention but no significant redness or drainage was noticed around the jejunostomy tube site patient did have a PICC line through the patient is getting TPN could be the source of this fever and sepsis 2-peripheral blood culture obtained nursing staff was not able to get culture from the PICC line 3-patient did have persistent fever that is slightly concerning we will go ahead and check a Doppler ultrasound to the left upper extremity to make sure no evidence of any DVT may be contributing to this fever still waiting on the culture continue with the daptomycin and Zosyn Dictation was produced using [employer] dictation software. please excuse any grammatical, word or spelling errors. Time with Patient: Less than 30
--- NOTE | 2024-02-28 16:27 | US ---
EXAMINATION TYPE: US venous doppler duplex UE LT DATE OF EXAM: 02/28/2024 COMPARISON: NONE CLINICAL INDICATION: Female, 54 years old with history of fever, DVT/PICC; 83lb women with recent PIC C line, fever and not feeling well, no swelling or h/o dvt SIDE PERFORMED: Left Left Arm: Negative for DVT Unable to assess basilic vein medial left arm due to extensive bandage from PICC line IMPRESSION: Grayscale, color doppler, spectral doppler imaging performed of the deep veins of the upper extremiti es. There is normal flow, compressibility and vascular waveforms. [facility] 02/28/2024 3:06 PM
[2024-02-28 17:07] LABS: Glucose,Whole Blood 146 mg/dL (70-110)
[2024-02-28 21:50] LABS: Glucose,Whole Blood 103 mg/dL (70-110)
[2024-02-29 03:20] LABS: Glucose,Whole Blood 188 mg/dL (70-110)
[2024-02-29 06:23] LABS: Glucose,Whole Blood 211 mg/dL (70-110)
[2024-02-29 06:57] LABS: ALT 48 U/L (4-34); AST 37 U/L (14-36); African American GFR (CKD) 65 (>60 ml/min/1.73 sqM); Albumin 2.2 g/dL (3.5-5.0); Albumin/Globulin Ratio 0.7; Alkaline Phosphatase 184 U/L (38-126); Anion Gap 10 mmol/L; Blood Urea Nitrogen 18 mg/dL (7-17); Calcium 7.1 mg/dL (8.4-10.2); Carbon Dioxide 15 mmol/L (22-30); Chloride 109 mmol/L (98-107); Glucose 181 mg/dL (74-99); Magnesium 2.3 mg/dL (1.6-2.3); Non-African American GFR(CKD) 57 (>60 ml/min/1.73 sqM); Phosphorus 2.4 mg/dL (2.5-4.5); Potassium 2.9 mmol/L (3.5-5.1); Sodium 134 mmol/L (137-145); Total Bilirubin 0.2 mg/dL (0.2-1.3); Total Protein 5.2 g/dL (6.3-8.2)
--- NOTE | 2024-02-29 09:13 | P.PN ---
Subjective Progress Note Date: 02/29/24 Patient feels about the same. She is tolerating her tube feeds. On exam vital signs appear stable. Abdomen soft. Diabetic with severe gastroparesis. Patient will continue receive J-tube feedings. Objective - Vital Signs Vital signs: Vital Signs Temp 99.9 F H 02/29/24 00:48 Pulse 131 H 02/29/24 00:48 Resp 17 02/29/24 00:48 BP 151/80 02/29/24 00:48 Pulse Ox 97 02/29/24 00:48 FiO2 Intake & Output 02/28/24 02/29/24 02/29/24 18:59 06:59 18:59 Weight 38 kg 38 kg Other: Voiding Method Bedside Commode # Voids 2 # Bowel Movements 2 - Labs CBC & Chem 7: 02/28/24 05:09 02/29/24 06:02 Labs: Abnormal Lab Results - Last 24 Hours (Table) 02/28/24 02/28/24 02/29/24 Range/Units 05:09 17:05 03:19 Sodium (137-145) mmol/L Potassium (3.5-5.1) mmol/L Chloride (98-107) mmol/L Carbon Dioxide (22-30) mmol/L BUN (7-17) mg/dL Creatinine (0.52-1.04) mg/dL Glucose (74-99) mg/dL POC Glucose (mg/dL) 146 H 188 H (70-110) mg/dL Calcium (8.4-10.2) mg/dL Phosphorus (2.5-4.5) mg/dL AST (14-36) U/L ALT (4-34) U/L Alkaline Phosphatase (38-126) U/L Total Protein (6.3-8.2) g/dL Albumin (3.5-5.0) g/dL Prolactin 73.600 H (2.800-29.200) ng/mL 02/29/24 02/29/24 Range/Units 06:02 06:21 Sodium 134 L (137-145) mmol/L Potassium 2.9 L (3.5-5.1) mmol/L Chloride 109 H (98-107) mmol/L Carbon Dioxide 15 L (22-30) mmol/L BUN 18 H (7-17) mg/dL Creatinine 1.12 H (0.52-1.04) mg/dL Glucose 181 H (74-99) mg/dL POC Glucose (mg/dL) 211 H (70-110) mg/dL Calcium 7.1 L (8.4-10.2) mg/dL Phosphorus 2.4 L (2.5-4.5) mg/dL AST 37 H (14-36) U/L ALT 48 H (4-34) U/L Alkaline Phosphatase 184 H (38-126) U/L Total Protein 5.2 L (6.3-8.2) g/dL Albumin 2.2 L (3.5-5.0) g/dL Prolactin (2.800-29.200) ng/mL Microbiology - Last 24 Hours (Table) 02/26/24 22:33 Blood Culture - Preliminary Blood
[2024-02-29 09:37] LABS: Basophils # (A) 0.05 X 10*3/uL (0.00-0.10); Basophils % (A) 0.3 %; Eosinophils % (A) 0.6 %; HCT 25.8 % (37.2-46.3); HGB 7.9 g/dL (12.0-15.0); Lymphocytes # (A) 1.66 X 10*3/uL (0.90-5.00); Lymphocytes % (A) 9.4 %; MCH 28.4 pg (27.0-32.0); MCHC 30.6 g/dL (32.0-37.0); MCV 92.8 FL (80.0-97.0); Mean Platelet Volume 10.7 FL (9.5-12.2); Monocytes % (A) 5.1 %; NRBC Per 100 WBC 0 X 10*3/uL (0.00-0.01); Neutrophils # (A) 14.78 X 10*3/uL (1.80-7.70); Neutrophils % (A) 83.7 %; Platelet Count 335 X 10*3/uL (140-440); RBC 2.78 X 10*6/uL (4.10-5.20); RDW 14.8 % (11.5-14.5); WBC 17.64 X 10*3/uL (4.50-10.00)
[2024-02-29 11:58] LABS: Glucose,Whole Blood 131 mg/dL (70-110)
--- NOTE | 2024-02-29 12:10 | P.CRDCN ---
History of Present Illness Consult date: 02/29/24 History of present illness: This is a 54-year-old female patient with a past medical history significant for diabetes and hypertension and dyslipidemia and history of gastroparesis presented to the hospital and was admitted because of symptoms of nausea and vomiting and abdominal discomfort. The patient was admitted and underwent a gastric tube/G-tube. We consulted to see the patient because of tachycardia. The patient has been in sinus mechanism and not in any atrial fibrillation or atrial flutter. The EKG showed sinus mechanism. She had intermittent episodes of sinus tachycardia likely to be multifactorial and secondary to possible component of dehydration as well as discomfort. Meanwhile I am going to obtain a TSH and free T4 and also obtain an echocardiogram with Doppler. No symptoms of any chest pain or chest discomfort or shortness of breath or any dizziness or lightheadedness or any feeling of heart racing or fluttering no presyncope or syncope and she has been maintaining only normal sinus mechanism through her hospital stay. The examination is remarkable for regular rhythm with a soft systolic murmur and clear breathing sounds bilaterally and no edema was noted in the lower extremities. Assessment Abdominal discomfort and nausea and vomiting History of gastroparesis Sinus tachycardia likely to be multifactorial Multiple comorbid conditions including diabetes and hypertension and dyslipidemia Plan Obtain TSH and free T4 Obtain an echocardiogram with Doppler Consider switching amlodipine to verapamil or Cardizem Further recommendation to follow Past Medical History Past Medical History: Diabetes Mellitus, Hypertension, Musculoskeletal Disorder Additional Past Medical History / Comment(s): FREQ NAUSEA, PAINFUL RT SHOULDER "FROZEN SHOULDER", NEUROPATHY PORFIRIO LEGS and hands, Blood pressures can run high History of Any Multi-Drug Resistant Organisms: ESBL, MRSA, VRE Date of last positivie culture/infection: 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;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 MDRO Source:: Urine VRE and ESBL, MRSA-ABD Past Surgical History: Cholecystectomy, Orthopedic Surgery, Tubal Ligation Additional Past Surgical History / Comment(s): rt shoulder, J tube placement Past Anesthesia/Blood Transfusion Reactions: No Reported Reaction Additional Past Anesthesia/Blood Transfusion Reaction / Comment(s): UNK FAMILY HX Past Psychological History: Anxiety Smoking Status: Current every day smoker Past Alcohol Use History: None Reported Additional Past Alcohol Use History / Comment(s): STARTED SMOKING 1987, smokes about 6 cigs/day Past Drug Use History: None Reported Additional Drug Use History / Comment(s): Patient denies using marijuana. - Past Family History Father History Unknown: Yes Additional Family Medical History / Comment(s): unknown-adopted Mother History Unknown: Yes Additional Family Medical History / Comment(s): unknown- adopted Medications and Allergies Home Medications Medication Instructions Recorded Confirmed Type ALPRAZolam [Xanax] 0.25 mg PO BID 05/12/23 02/21/24 History Atorvastatin [Lipitor] 20 mg PO DAILY 05/12/23 02/21/24 History Insulin Lispro [humaLOG Kwikpen] See Protocol SQ ACHS 05/12/23 02/21/24 History Mirtazapine [Remeron] 30 mg PO HS 05/12/23 02/21/24 History Metoclopramide [Reglan] 10 mg PO ACHS 30 Days #120 tab 05/15/23 02/21/24 Rx Pantoprazole [Protonix] 40 mg PO AC-BID 30 Days #60 tab 05/21/23 02/21/24 Rx Folic Acid 1 mg PO DAILY 06/15/23 02/21/24 History HYDROcodone/APAP 7.5-325MG [[place] 1 tab PO TID 08/25/23 02/21/24 History 7.5-325] Ferrous Sulfate [Iron (65 MG 325 mg PO DAILY 12/09/23 02/21/24 History Elemental)] Insulin Glargine [Lantus Vial] 10 unit SQ DAILY 12/09/23 02/21/24 History Doxycycline [Vibramycin] 100 mg PO BID 30 Days #60 cap 12/19/23 02/21/24 Rx amLODIPine [Norvasc] 5 mg PO DAILY 90 Days #90 tab 12/19/23 02/21/24 Rx Famotidine [Pepcid] 20 mg PO BID 30 Days #60 tab 01/18/24 02/21/24 Rx Jenison-3/Dha/Epa/Fish Oil [Fish Oil 1 cap PO DAILY 02/21/24 02/21/24 History 1,000 mg Softgel] Ondansetron [Zofran] 4 mg PO BID 02/21/24 02/21/24 History Sennosides [Senokot] 8.6 mg PO BID 02/21/24 02/21/24 History methocarbamoL [Robaxin] 250 mg PO QID 02/21/24 02/21/24 History Allergies Allergy/AdvReac Type Severity Reaction Status Date / Time fentanyl AdvReac "wobbly" Verified 02/21/24 15:24 Physical Exam Vitals: Vital Signs Temp Pulse Resp BP Pulse Ox 02/29/24 07:23 98.5 F 97 17 102/59 98 02/29/24 00:48 99.9 F H 131 H 17 151/80 97 02/28/24 19:20 98.4 F 113 H 16 126/77 100 02/28/24 17:05 98.5 F 02/28/24 13:40 102.3 F H 119 H 16 138/80 95 Intake and Output 02/28/24 02/29/24 02/29/24 22:59 06:59 14:59 Other: # Voids 2 # Bowel Movements 2 Weight 38 kg Results 02/29/24 06:02 02/29/24 06:02 Cardiac Enzymes 02/29/24 Range/Units 06:02 AST 37 H (14-36) U/L CBC 02/29/24 Range/Units 06:02 WBC 17.64 H (4.50-10.00) X 10*3/uL RBC 2.78 L (4.10-5.20) X 10*6/uL Hgb 7.9 L (12.0-15.0) g/dL Hct 25.8 L (37.2-46.3) % Plt Count 335 (140-440) X 10*3/uL Comprehensive Metabolic Panel 02/29/24 Range/Units 06:02 Sodium 134 L (137-145) mmol/L Potassium 2.9 L (3.5-5.1) mmol/L Chloride 109 H (98-107) mmol/L Carbon Dioxide 15 L (22-30) mmol/L BUN 18 H (7-17) mg/dL Creatinine 1.12 H (0.52-1.04) mg/dL Glucose 181 H (74-99) mg/dL Calcium 7.1 L (8.4-10.2) mg/dL AST 37 H (14-36) U/L ALT 48 H (4-34) U/L Alkaline Phosphatase 184 H (38-126) U/L Total Protein 5.2 L (6.3-8.2) g/dL Albumin 2.2 L (3.5-5.0) g/dL Current Medications Generic Name Dose Route Start Last Admin Trade Name Freq PRN Reason Stop Dose Admin Acetaminophen 650 mg 02/21/24 15:05 02/29/24 00:54 Acetaminophen Tab 325 Mg Tab PO 650 mg Q6HR PRN Administration Mild Pain or Fever > 100.5 Hydrocodone Bitart/Acetaminophen 1 each 02/21/24 15:05 02/29/24 04:39 Hydrocodone/Apap 7.5-325mg 1 Each Tab PO 1 each TID PRN Administration Pain Alprazolam 0.25 mg 02/21/24 15:05 02/23/24 22:46 Alprazolam 0.25 Mg Tab PO 0.25 mg BID PRN Administration Anxiety Amlodipine Besylate 5 mg 02/22/24 09:00 02/29/24 08:59 Amlodipine 5 Mg Tab PO 5 mg DAILY TERENCE Administration Dextrose/Water 25 ml 02/21/24 22:42 02/27/24 02:37 Dextrose 50% Syringe 50 Ml IVP 03/12/24 23:59 25 ml PER PROTOCOL PRN Administration Hypoglycemia Protocol Dextrose/Water 50 ml 02/21/24 22:42 Dextrose 50% Syringe 50 Ml IVP PER PROTOCOL PRN Hypoglycemia Protocol Famotidine 20 mg 02/21/24 21:00 02/29/24 08:59 Famotidine 20 Mg Tab PO 20 mg DAILY TERENCE Administration Ferrous Sulfate 325 mg 02/22/24 09:00 02/29/24 08:59 Ferrous Sulfate 325 Mg Tab PO 325 mg DAILY TERENCE Administration Folic Acid 1 mg 02/22/24 09:00 02/29/24 08:59 Folic Acid 1 Mg Tab PO 1 mg DAILY TERENCE Administration Hydromorphone HCl 0.5 mg 02/21/24 18:41 02/29/24 10:30 Hydromorphone 0.5 Mg/0.5 Ml Syringe IVP 0.5 mg Q4HR PRN Administration Pain Sodium Chloride 1,000 mls @ 100 mls/hr 02/21/24 14:30 02/29/24 10:25 Saline 0.9% IV Not Given .Q10H TERENCE Piperacillin Sod/Tazobactam 100 mls @ 25 mls/hr 02/26/24 10:00 02/29/24 08:59 Sod 3.375 gm/ Sodium Chloride IVPB 25 mls/hr Q8H TERENCE Administration Protocol Daptomycin 250 mg/ Sodium 50 mls @ 100 mls/hr 02/26/24 23:00 02/29/24 00:46 Chloride IVPB 100 mls/hr Q24H TERENCE Administration Protocol Insulin Aspart 0 unit 02/22/24 07:30 02/29/24 06:25 Insulin Aspart (Novolog) 100 Unit/Ml Vial SQ 2 unit ACHS TERENCE Administration Protocol Insulin Detemir 10 unit 02/23/24 07:00 02/29/24 06:25 Insulin Detemir (Levemir) 100 Unit/Ml Syr SQ 10 unit DAILY@0700 TERENCE Administration Loperamide HCl 2 mg 02/21/24 15:05 02/29/24 06:25 Loperamide 2 Mg Cap PO 2 mg QID PRN Administration Diarrhea Metoclopramide HCl 10 mg 02/21/24 17:30 02/29/24 06:52 Metoclopramide 10 Mg Tab PO 10 mg ACHS TERENCE Administration Mirtazapine 30 mg 02/21/24 21:00 02/28/24 20:35 Mirtazapine 15 Mg Tab PO 30 mg HS TERENCE Administration Naloxone HCl 0.2 mg 02/21/24 14:17 Naloxone 0.4 Mg/Ml 1 Ml Vial IV Q2M PRN Opioid Reversal Ondansetron HCl 4 mg 02/22/24 09:00 02/29/24 08:59 Ondansetron 4 Mg Tab PO 4 mg DAILY TERENCE Administration Pantoprazole Sodium 40 mg 02/21/24 17:30 02/29/24 07:02 Pantoprazole 40 Mg Tablet PO 40 mg AC-BID TERENCE Administration Intake and Output 02/28/24 02/29/24 02/29/24 22:59 06:59 14:59 Other: # Voids 2 # Bowel Movements 2 Weight 38 kg 02/29/24 06:02 02/29/24 06:02
[2024-02-29 13:34] LABS: T4, Free (Free Thyroxine) 0.94 ng/dL (0.78-2.19)
[2024-02-29] MEDS: IOPAMIDOL CONTRAST (ORAL USE) VIAL PO PRN (14:32)
--- NOTE | 2024-02-29 16:26 | CA ---
Transthoracic Echo Report Name: Lesa Patterson Age: 54 Gender: F : 1970 Exam Date: 02/29/2024 12:34 Exam Location: [place] [facility] Ht (in): 59 Wt (lb): 83 Ordering Physician: Fredrick Munroe MD ([id number]) Attending/Referring Phys: Supervisor Customer Complaint Service Delfina Casiano RDCS Procedure CPT: Indications: tachy Cardiac Hx: Technical Quality: Fair Contrast 1: Total Dose (mL): Contrast 2: Total Dose (mL): MEASUREMENTS (Male / Female) Normal Values 2D ECHO LV Diastolic Diameter PLAX 4.0 cm 4.2 - 5.9 / 3.9 - 5.3 cm LV Systolic Diameter PLAX 3.1 cm IVS Diastolic Thickness 1.0 cm 0.6 - 1.0 / 0.6 - 0.9 cm LVPW Diastolic Thickness 1.0 cm 0.6 - 1.0 / 0.6 - 0.9 cm LV Relative Wall Thickness 0.5 RV Internal Dim ED PLAX 1.8 cm LA Systolic Diameter LX 2.7 cm 3.0 - 4.0 / 2.7 - 3.8 cm LV Diastolic Volume MOD 4C 31.3 cm??? LV Systolic Volume MOD 4C 10.8 cm??? LV Ejection Fraction MOD 4C 65.6 % LV Cardiac Index MOD 4C 1984.6 cm???/min???m??? LV Diastolic Length 4C 5.4 cm LV Systolic Length 4C 4.6 cm M-MODE Aortic Root Diameter MM 2.4 cm LA Systolic Diameter MM 2.6 cm LA Ao Ratio MM 1.1 DOPPLER MV Area PHT 5.1 cm??? Mitral E Point Velocity 105.3 cm/s Mitral A Point Velocity 78.0 cm/s Mitral E to A Ratio 1.4 MV Deceleration Time 148.6 ms TR Peak Velocity 240.6 cm/s TR Peak Gradient 23.2 mmHg Right Ventricular Systolic Press 27.6 mmHg FINDINGS Left Ventricle Left ventricular ejection fraction is estimated at 55-60 %. Normal left ventricular systolic function with no obvious regional wall motion abnormalities. Left ventricular cavity size normal. Right Ventricle Normal right ventricular size and function. Right ventricular systolic pressure within normal limits. Right Atrium Normal right atrial size. Left Atrium Mild left atrial dilatation. Mitral Valve Structurally normal mitral valve. No mitral stenosis. Trace to mild mitral regurgitation. Aortic Valve Trileaflet aortic valve. No aortic valve stenosis or regurgitation. Tricuspid Valve Structurally normal tricuspid valve. No tricuspid stenosis. Trace tricuspid regurgitation. Pulmonic Valve Structurally normal pulmonic valve. No pulmonic stenosis. Trace pulmonic regurgitation. Pericardium No pericardial or pleural effusion. Aorta Normal size aortic root and proximal ascending aorta. CONCLUSIONS Normal LV systolic function Previewed by: Dr. Fredrick Munroe MD (Electronically Signed) Final Date: 29 February 2024 16:25
[2024-02-29 16:36] LABS: Glucose,Whole Blood 63 mg/dL (70-110)
[2024-02-29 16:49] LABS: Glucose,Whole Blood 71 mg/dL (70-110)
--- NOTE | 2024-02-29 20:15 | CT ---
EXAMINATION TYPE: CT abdomen pelvis w con DATE OF EXAM: 02/29/2024 COMPARISON: 10/06/2023 HISTORY: 54-year-old female Fever/abscess. TECHNIQUE: Contiguous axial scanning of the abdomen and pelvis following administration of 80 ml Isov ue 300 IV contrast. Delayed images through the kidneys and coronal/sagittal reconstructions performe d. CT DLP: 492.5 mGycm Automated exposure control for dose reduction was used. FINDINGS: Generalized anasarca change. Heart normal size with trace basilar pericardial fluid. Promin ent patchy and interstitial changes in the lower lungs, increased from prior. No pleural effusion. Oral contrast material within the distal esophagus. Mild circumferential esophageal wall thickening s ignificantly improved from prior exam. No focal liver lesion or biliary ductal dilatation. Portal venous system is patent. Cholecystectomy c lips. Mild periportal edema. Adrenal glands, kidneys, spleen, and pancreas show no gross abnormality. Moderate atherosclerotic calcifications infrarenal abdominal aorta and iliac arteries. A right mid abdominal jejunostomy tube is present. No dilated small bowel. Trace fluid along the para colic gutters and mild pelvic ascites is noted. No dilated small bowel or free air. Mild small bowel fold thickening may relate to nondistention. Nor mal appendix. Some liquid stool in the right side of the colon. Prominent distention of the urinary bladder. Mild pelvic free fluid. No pelvic lymphadenopathy seen. Mild degenerative change of the hips. Chronic anterior wedge deformity of the T12 vertebral body with mild retropulsion into the ventral spinal canal. Chronic superior end plate deformity L4. Moderate d egenerative disc disease L5-S1. All of these changes are unchanged from 10/06/2023. IMPRESSION: 1. RIGHT MID ABDOMINAL JEJUNOSTOMY TUBE IN PLACE. 2. SCATTERED MILD SMALL BOWEL FOLD THICKENING MAY RELATE TO INCOMPLETE DISTENTION. GIVEN THE LIQUID S TOOL IN THE RIGHT SIDE OF THE COLON, CONSIDER A NONSPECIFIC ENTERITIS. 3. MILD PELVIC FREE FLUID POSSIBLY RELATED TO FLUID OVERLOAD STATE. 4. PATCHY INFILTRATES AT THE LUNG BASES ARE NEW. CONSIDER ATYPICAL INFECTIONS OR ASPIRATION PNEUMONIT IS. 5. RESIDUAL ORAL CONTRAST WITHIN THE LOWER ESOPHAGUS MAY BE DUE TO GASTROESOPHAGEAL REFLUX OR ESOPHAG EAL DYSMOTILITY. THE WALL THICKENING/ESOPHAGITIS SEEN ON 10/06/2023 HAS SIGNIFICANTLY IMPROVED. [facility], , 02/29/2024 8:13 PM
[2024-02-29 21:12] LABS: Glucose,Whole Blood 97 mg/dL (70-110)
[2024-02-29] MEDS: POTASSIUM CHLORIDE 10 MEQ in WATER FOR INJECTION 1 100ML.BAG IVPB SCH (22:40)
[2024-03-01 02:12] LABS: Glucose,Whole Blood 63 mg/dL (70-110)
[2024-03-01 03:39] LABS: Glucose,Whole Blood 115 mg/dL (70-110)
[2024-03-01 05:54] LABS: Glucose,Whole Blood 97 mg/dL (70-110)
--- NOTE | 2024-03-01 07:55 | PN ---
PROGRESS NOTE 54-year-old white female. Had abdomen and pelvis CT for possible infectious process in her abdomen. Echocardiogram has been ordered by staff, which showed ejection fraction 55% to 60%, mild left atrial dilation. The patient continued current treatment. PICC line is blocked off. We are going to try to do some possible PICC line replacement on Saturday to the lab due to infection. She has been having fevers. White count is 17.64, hemoglobin is 7.9. Potassium 2.9, sodium 134, BUN 18, creatinine 1.12, GFR 57. Sugars are in the 60s and 70s up to 211 at a highest. Liver enzymes included 37, 48, 184. appeared to be normal. Cardiology saw her. Surgery saw her. Infectious Disease has seen her. Prognosis guarded. Continue with broad-spectrum antibiotics. Watch for white count. She has continued to get G-tube feeds. Hypokalemia, potassium needs to be replaced. Infectious Disease will need to evaluate her. Venous Doppler recently was normal. working up for infectious processes. Replace electrolytes for nausea and vomiting. Prognosis is guarded. Severe gastroparesis. MMODL / IJN: [id number] /
[2024-03-01 08:23] LABS: Basophils # (A) 0.1 k/uL (0-0.2); Basophils % (A) 1 %; Eosinophils # (A) 0.2 k/uL (0-0.7); Eosinophils % (A) 1 %; HCT 27.4 % (34.0-46.0); Hypochromasia Moderate; Lymphocytes # (A) 1.2 k/uL (1.0-4.8); Lymphocytes % (A) 6 %; MCH 28.8 pg (25.0-35.0); MCV 92.7 fL (80.0-100.0); Mean Platelet Volume 8.2; Monocytes # (A) 0.7 k/uL (0-1.0); Monocytes % (A) 4 %; Neutrophils # (A) 17.3 k/uL (1.3-7.7); Neutrophils % (A) 87 %; Platelet Count 381 k/uL (150-450); RBC 2.96 m/uL (3.80-5.40); RDW 15.7 % (11.5-15.5)
[2024-03-01 08:26] LABS: HGB 8.5 gm/dL (11.4-16.0)
[2024-03-01 08:36] LABS: ALT 38 U/L (4-34); AST 31 U/L (14-36); African American GFR (CKD) 65 (>60 ml/min/1.73 sqM); Albumin 2.4 g/dL (3.5-5.0); Albumin/Globulin Ratio 0.8; Alkaline Phosphatase 177 U/L (38-126); Anion Gap 9 mmol/L; Blood Urea Nitrogen 9 mg/dL (7-17); Calcium 7.1 mg/dL (8.4-10.2); Carbon Dioxide 15 mmol/L (22-30); Chloride 115 mmol/L (98-107); Glucose 93 mg/dL (74-99); Non-African American GFR(CKD) 56 (>60 ml/min/1.73 sqM); Phosphorus 2.2 mg/dL (2.5-4.5); Potassium 3.5 mmol/L (3.5-5.1); Sodium 139 mmol/L (137-145); Total Bilirubin 0.2 mg/dL (0.2-1.3); Total Protein 5.4 g/dL (6.3-8.2)
--- NOTE | 2024-03-01 09:46 | P.PN ---
Subjective Progress Note Date: 03/01/24 The patient had significant drainage from the J-tube site overnight. She had tube feeds and now she has some bilious fluid. Patient's chronic abdominal pain has not changed. On exam vital signs appear stable. Abdomen soft. PEG tube dressing has some bile staining and tube feed material. Patient's tube feeds will be stopped. She will have a barrier cream placed on her skin. She will be observed. Objective - Vital Signs Vital signs: Vital Signs Temp 99.8 F H 03/01/24 07:48 Pulse 124 H 03/01/24 07:48 Resp 18 03/01/24 07:48 BP 149/81 03/01/24 07:48 Pulse Ox 97 03/01/24 07:48 FiO2 Intake & Output 02/29/24 03/01/24 03/01/24 18:59 06:59 18:59 Weight 25.5 kg Other: # Voids 5 1 # Bowel Movements 2 - Labs CBC & Chem 7: 03/01/24 08:09 03/01/24 08:09 Labs: Abnormal Lab Results - Last 24 Hours (Table) 02/29/24 02/29/24 03/01/24 Range/Units 11:57 16:33 02:10 WBC (3.8-10.6) k/uL RBC (3.80-5.40) m/uL Hgb (11.4-16.0) gm/dL Hct (34.0-46.0) % RDW (11.5-15.5) % Neutrophils # (1.3-7.7) k/uL Chloride (98-107) mmol/L Carbon Dioxide (22-30) mmol/L Creatinine (0.52-1.04) mg/dL POC Glucose (mg/dL) 131 H 63 L 63 L (70-110) mg/dL Calcium (8.4-10.2) mg/dL Phosphorus (2.5-4.5) mg/dL ALT (4-34) U/L Alkaline Phosphatase (38-126) U/L Total Protein (6.3-8.2) g/dL Albumin (3.5-5.0) g/dL 03/01/24 03/01/24 03/01/24 Range/Units 03:38 08:09 08:09 WBC 20.0 H (3.8-10.6) k/uL RBC 2.96 L (3.80-5.40) m/uL Hgb 8.5 L D (11.4-16.0) gm/dL Hct 27.4 L (34.0-46.0) % RDW 15.7 H (11.5-15.5) % Neutrophils # 17.3 H (1.3-7.7) k/uL Chloride 115 H (98-107) mmol/L Carbon Dioxide 15 L (22-30) mmol/L Creatinine 1.13 H (0.52-1.04) mg/dL POC Glucose (mg/dL) 115 H (70-110) mg/dL Calcium 7.1 L (8.4-10.2) mg/dL Phosphorus 2.2 L (2.5-4.5) mg/dL ALT 38 H (4-34) U/L Alkaline Phosphatase 177 H (38-126) U/L Total Protein 5.4 L (6.3-8.2) g/dL Albumin 2.4 L (3.5-5.0) g/dL Microbiology - Last 24 Hours (Table) 02/26/24 22:33 Blood Culture - Preliminary Blood
--- NOTE | 2024-03-01 10:20 | P.PN ---
Subjective Progress Note Date: 03/01/24 This is a 54-year-old female patient with a past medical history significant for diabetes and hypertension and dyslipidemia and history of gastroparesis presented to the hospital and was admitted because of symptoms of nausea and vomiting and abdominal discomfort. The patient was admitted and underwent a gastric tube/G-tube. We consulted to see the patient because of tachycardia. The patient has been in sinus mechanism and not in any atrial fibrillation or atrial flutter. The EKG showed sinus mechanism. She had intermittent episodes of sinus tachycardia likely to be multifactorial and secondary to possible component of dehydration as well as discomfort. Meanwhile I am going to obtain a TSH and free T4 and also obtain an echocardiogram with Doppler. No symptoms of any chest pain or chest discomfort or shortness of breath or any dizziness or lightheadedness or any feeling of heart racing or fluttering no presyncope or syncope and she has been maintaining only normal sinus mechanism through her hospital stay. The examination is remarkable for regular rhythm with a soft systolic murmur and clear breathing sounds bilaterally and no edema was noted in the lower extremities. March 01, 2024 The patient was seen and evaluated this morning. She is asymptomatic from the cardiovascular standpoint of view. She has been spiking temperature and she might be oozing from around the gastric tube. Beside that WBC has been elevated. I believe that the tachycardia is related to multiple factors including the dehydration as well as possible temperature related to possible underlying infection. She underwent an echo which revealed normal LV systolic function with no significant valvular abnormalities. Thyroid function including TSH and free T4 came in to be unremarkable. From the cardiovascular standpoint of view, we will continue the current medical regimen and follow-up with the patient on as needed Assessment Abdominal discomfort and nausea and vomiting History of gastroparesis Sinus tachycardia likely to be multifactorial Multiple comorbid conditions including diabetes and hypertension and dyslipidemia Possible underlying infection Elevated WBC Plan The tachycardia is multifactorial Thyroid function appeared to be within normal limits The echo appears to be within normal limits as well I would not blunt her heart rate by any AV ramona eligio agents at this point Follow-up with the patient on as needed case Objective - Vital Signs Vital signs: Vital Signs Temp 99.8 F H 03/01/24 07:48 Pulse 124 H 03/01/24 07:48 Resp 18 03/01/24 07:48 BP 149/81 03/01/24 07:48 Pulse Ox 97 03/01/24 07:48 FiO2 Intake & Output 02/29/24 03/01/24 03/01/24 18:59 06:59 18:59 Weight 25.5 kg Other: # Voids 5 1 # Bowel Movements 2 - Labs CBC & Chem 7: 03/01/24 08:09 03/01/24 08:09 Labs: Abnormal Lab Results - Last 24 Hours (Table) 02/29/24 02/29/24 03/01/24 Range/Units 11:57 16:33 02:10 WBC (3.8-10.6) k/uL RBC (3.80-5.40) m/uL Hgb (11.4-16.0) gm/dL Hct (34.0-46.0) % RDW (11.5-15.5) % Neutrophils # (1.3-7.7) k/uL Chloride (98-107) mmol/L Carbon Dioxide (22-30) mmol/L Creatinine (0.52-1.04) mg/dL POC Glucose (mg/dL) 131 H 63 L 63 L (70-110) mg/dL Calcium (8.4-10.2) mg/dL Phosphorus (2.5-4.5) mg/dL ALT (4-34) U/L Alkaline Phosphatase (38-126) U/L Total Protein (6.3-8.2) g/dL Albumin (3.5-5.0) g/dL 03/01/24 03/01/24 03/01/24 Range/Units 03:38 08:09 08:09 WBC 20.0 H (3.8-10.6) k/uL RBC 2.96 L (3.80-5.40) m/uL Hgb 8.5 L D (11.4-16.0) gm/dL Hct 27.4 L (34.0-46.0) % RDW 15.7 H (11.5-15.5) % Neutrophils # 17.3 H (1.3-7.7) k/uL Chloride 115 H (98-107) mmol/L Carbon Dioxide 15 L (22-30) mmol/L Creatinine 1.13 H (0.52-1.04) mg/dL POC Glucose (mg/dL) 115 H (70-110) mg/dL Calcium 7.1 L (8.4-10.2) mg/dL Phosphorus 2.2 L (2.5-4.5) mg/dL ALT 38 H (4-34) U/L Alkaline Phosphatase 177 H (38-126) U/L Total Protein 5.4 L (6.3-8.2) g/dL Albumin 2.4 L (3.5-5.0) g/dL Microbiology - Last 24 Hours (Table) 02/26/24 22:33 Blood Culture - Preliminary Blood
[2024-03-01 11:34] LABS: Glucose,Whole Blood 194 mg/dL (70-110)
[2024-03-01] MEDS ORDERED: ZINC OXIDE PASTE (Z-GUARD) 1 APPLIC TOPICAL PRN (14:50)
--- NOTE | 2024-03-01 15:10 | P.PN ---
Subjective Progress Note Date: 02/29/24 Principal diagnosis: Reason for follow-up is fever concern for possible PICC infection Patient is a 54-year-old female with multiple comorbidities including diabetes mellitus hypertension diabetic gastroparesis and did have a jejunostomy tube placement on January 15, 2024, patient also have a double-lumen PICC line placement to the left upper arm about a month ago for TPN has developed fever prompting this consultation. On today's evaluation that is 02/29/2024, the patient fever pattern has improved she was afebrile this morning patient still complaining of not feeling well and complaining of abdominal pain nausea but no vomiting no chest pain shortness of breath or cough nurse. Was unable to draw blood from the PICC line Objective - Vital Signs Vital signs: Vital Signs Temp 98.5 F 02/29/24 07:23 Pulse 97 02/29/24 07:23 Resp 17 02/29/24 07:23 BP 102/59 02/29/24 07:23 Pulse Ox 98 02/29/24 07:23 FiO2 Intake & Output 02/28/24 02/29/24 02/29/24 18:59 06:59 18:59 Weight 38 kg 38 kg Other: Voiding Method Bedside Commode # Voids 2 # Bowel Movements 2 - Exam GENERAL DESCRIPTION: Middle-age female lying in bed in no distress RESPIRATORY SYSTEM: Unlabored breathing , decreased breath sounds at bases HEART: S1 S2 regular rate and rhythm , ABDOMEN: Soft , no tenderness EXTREMITIES: No edema feet - Labs CBC & Chem 7: 03/01/24 08:09 03/01/24 08:09 Labs: Abnormal Lab Results - Last 24 Hours (Table) 02/28/24 02/28/24 02/29/24 Range/Units 05:09 17:05 03:19 WBC (4.50-10.00) X 10*3/uL RBC (4.10-5.20) X 10*6/uL Hgb (12.0-15.0) g/dL Hct (37.2-46.3) % MCHC (32.0-37.0) g/dL RDW (11.5-14.5) % Immature Gran # (0.00-0.04) X 10*3/uL Neutrophils # (1.80-7.70) X 10*3/uL Sodium (137-145) mmol/L Potassium (3.5-5.1) mmol/L Chloride (98-107) mmol/L Carbon Dioxide (22-30) mmol/L BUN (7-17) mg/dL Creatinine (0.52-1.04) mg/dL Glucose (74-99) mg/dL POC Glucose (mg/dL) 146 H 188 H (70-110) mg/dL Calcium (8.4-10.2) mg/dL Phosphorus (2.5-4.5) mg/dL AST (14-36) U/L ALT (4-34) U/L Alkaline Phosphatase (38-126) U/L Total Protein (6.3-8.2) g/dL Albumin (3.5-5.0) g/dL Prolactin 73.600 H (2.800-29.200) ng/mL 02/29/24 02/29/24 02/29/24 Range/Units 06:02 06:02 06:21 WBC 17.64 H (4.50-10.00) X 10*3/uL RBC 2.78 L (4.10-5.20) X 10*6/uL Hgb 7.9 L (12.0-15.0) g/dL Hct 25.8 L (37.2-46.3) % MCHC 30.6 L (32.0-37.0) g/dL RDW 14.8 H (11.5-14.5) % Immature Gran # 0.15 H (0.00-0.04) X 10*3/uL Neutrophils # 14.78 H (1.80-7.70) X 10*3/uL Sodium 134 L (137-145) mmol/L Potassium 2.9 L (3.5-5.1) mmol/L Chloride 109 H (98-107) mmol/L Carbon Dioxide 15 L (22-30) mmol/L BUN 18 H (7-17) mg/dL Creatinine 1.12 H (0.52-1.04) mg/dL Glucose 181 H (74-99) mg/dL POC Glucose (mg/dL) 211 H (70-110) mg/dL Calcium 7.1 L (8.4-10.2) mg/dL Phosphorus 2.4 L (2.5-4.5) mg/dL AST 37 H (14-36) U/L ALT 48 H (4-34) U/L Alkaline Phosphatase 184 H (38-126) U/L Total Protein 5.2 L (6.3-8.2) g/dL Albumin 2.2 L (3.5-5.0) g/dL Prolactin (2.800-29.200) ng/mL 02/29/24 Range/Units 11:57 WBC (4.50-10.00) X 10*3/uL RBC (4.10-5.20) X 10*6/uL Hgb (12.0-15.0) g/dL Hct (37.2-46.3) % MCHC (32.0-37.0) g/dL RDW (11.5-14.5) % Immature Gran # (0.00-0.04) X 10*3/uL Neutrophils # (1.80-7.70) X 10*3/uL Sodium (137-145) mmol/L Potassium (3.5-5.1) mmol/L Chloride (98-107) mmol/L Carbon Dioxide (22-30) mmol/L BUN (7-17) mg/dL Creatinine (0.52-1.04) mg/dL Glucose (74-99) mg/dL POC Glucose (mg/dL) 131 H (70-110) mg/dL Calcium (8.4-10.2) mg/dL Phosphorus (2.5-4.5) mg/dL AST (14-36) U/L ALT (4-34) U/L Alkaline Phosphatase (38-126) U/L Total Protein (6.3-8.2) g/dL Albumin (3.5-5.0) g/dL Prolactin (2.800-29.200) ng/mL Microbiology - Last 24 Hours (Table) 02/26/24 22:33 Blood Culture - Preliminary Blood Assessment and Plan (1) Sepsis Current Visit: Yes Status: Acute Code(s): A41.9 - SEPSIS, UNSPECIFIED ORGANISM SNOMED Code(s): 45563897 (2) Fever Current Visit: Yes Status: Acute Code(s): R50.9 - FEVER, UNSPECIFIED SNOME D Code(s): 450649912 Plan: 1patient with sepsis in this patient who did have fever tachycardia mild elevated white count with initial concern for possible jejunostomy tube site infection she did have some distention but no significant redness or drainage w as noticed around the jejunostomy tube site patient did have a PICC line through the patient is getting TPN could be the source of this fever and sepsis 2-peripheral blood culture obtained nursing staff was not able to get culture from the PICC line, patient did have a left upper extremity Doppler that was negative for DVT 3-with persistent fever we will go ahead and check a CT abdominal pelvis to rule out intra-abdominal pathology continue with Zosyn and daptomycin Dictation was produced using [employer] dictation software. please excuse any grammatical, word or spelling errors. Time with Patient: Less than 30
--- NOTE | 2024-03-01 15:17 | P.PN ---
Subjective Progress Note Date: 03/01/24 Principal diagnosis: Reason for follow-up is fever concern for possible PICC infection Patient is a 54-year-old female with multiple comorbidities including diabetes mellitus hypertension diabetic gastroparesis and did have a jejunostomy tube placement on January 15, 2024, patient also have a double-lumen PICC line placement to the left upper arm about a month ago for TPN has developed fever prompting this consultation. On today's evaluation that is 03/01/2024, Patient did have a low-grade fever of 99.8 F this morning patient is breathing comfortably on room air still comp laining of not feeling well no chest pain shortness of breath or cough has been complaining of abdominal pain and some drainage from her jejunostomy tube site. Patient white count is up to 20,000, creatinine is 1.13 small bowel thickening question of incomplete distention versus enteritis patient infiltrate the lung base and residual contrast in the lower esophagus question of aspiration Objective - Vital Signs Vital signs: Vital Signs Temp 99.8 F H 03/01/24 07:48 Pulse 124 H 03/01/24 07:48 Resp 18 03/01/24 07:48 BP 149/81 03/01/24 07:48 Pulse Ox 97 03/01/24 07:48 FiO2 Intake & Output 02/29/24 03/01/24 03/01/24 18:59 06:59 18:59 Weight 25.5 kg Other: # Voids 5 1 # Bowel Movements 2 - Exam GENERAL DESCRIPTION: Middle-age female lying in bed in no distress RESPIRATORY SYSTEM: Unlabored breathing , decreased breath sounds at bases HEART: S1 S2 regular rate and rhythm , ABDOMEN: Soft , no tenderness EXTREMITIES: No edema feet - Labs CBC & Chem 7: 03/01/24 08:09 03/01/24 08:09 Labs: Abnormal Lab Results - Last 24 Hours (Table) 02/29/24 03/01/24 03/01/24 Range/Units 16:33 02:10 03:38 WBC (3.8-10.6) k/uL RBC (3.80-5.40) m/uL Hgb (11.4-16.0) gm/dL Hct (34.0-46.0) % RDW (11.5-15.5) % Neutrophils # (1.3-7.7) k/uL Chloride (98-107) mmol/L Carbon Dioxide (22-30) mmol/L Creatinine (0.52-1.04) mg/dL POC Glucose (mg/dL) 63 L 63 L 115 H (70-110) mg/dL Calcium (8.4-10.2) mg/dL Phosphorus (2.5-4.5) mg/dL ALT (4-34) U/L Alkaline Phosphatase (38-126) U/L Total Protein (6.3-8.2) g/dL Albumin (3.5-5.0) g/dL 03/01/24 03/01/24 03/01/24 Range/Units 08:09 08:09 11:32 WBC 20.0 H (3.8-10.6) k/uL RBC 2.96 L (3.80-5.40) m/uL Hgb 8.5 L D (11.4-16.0) gm/dL Hct 27.4 L (34.0-46.0) % RDW 15.7 H (11.5-15.5) % Neutrophils # 17.3 H (1.3-7.7) k/uL Chloride 115 H (98-107) mmol/L Carbon Dioxide 15 L (22-30) mmol/L Creatinine 1.13 H (0.52-1.04) mg/dL POC Glucose (mg/dL) 194 H (70-110) mg/dL Calcium 7.1 L (8.4-10.2) mg/dL Phosphorus 2.2 L (2.5-4.5) mg/dL ALT 38 H (4-34) U/L Alkaline Phosphatase 177 H (38-126) U/L Total Protein 5.4 L (6.3-8.2) g/dL Albumin 2.4 L (3.5-5.0) g/dL Microbiology - Last 24 Hours (Table) 02/26/24 22:33 Blood Culture - Preliminary Blood Assessment and Plan (1) Sepsis Current Visit: Yes Status: Acute Code(s): A41.9 - SEPSIS, UNSPECIFIED ORGANISM SNOMED Code(s): 50170681 (2) Fever Current Visit: Yes Status: Acute Code(s): R50.9 - FEVER, UNSPECIFIED SNOMED Code(s): 483978064 Plan: 1patient with sepsis in this patient who did have fever tachycardia mild elevated white count with initial concern for possible jejunostomy tube site infection she did have some distention but no significant redness or drainage was noticed around the jejunostomy tube site patient did have a PICC line through the patient is getting TPN could be the source of this fever and sepsis 2-peripheral blood culture obtained nursing staff was not able to get culture from the PICC line, patient did have a left upper extremity Doppler that was negative for DVT 3-patient did have CT abdominal pelvis with concern for enteritis reflux and possible aspiration pneumonitis with the patient worsening white count and having diarrhea we will check a stool for C. difficile and treat if positive Dictation was produced using [employer] dictation software. please excuse any grammatical, word or spelling errors. Time with Patient: Less than 30
--- NOTE | 2024-03-01 16:19 | XR ---
EXAMINATION TYPE: XR chest 1V confirm line plcmt DATE OF EXAM: 03/01/2024 COMPARISON: 10/06/2023 HISTORY: 54-year-old female NG tube placement TECHNIQUE: Single frontal view of the chest is obtained. FINDINGS: NG tube is satisfactory. Somewhat distal in position projecting at the right mid abdomen. Left CVC tip at the lower SVC level. Heart normal size. There is patchy airspace opacity at the left base. No pleural effusion. IMPRESSION: 1. The NG tube may be slightly distal in position as the tip projects at the right mid abdomen. Consi carin pulling back 5 cm. 2. Patchy airspace disease at the left base. Correlate for pneumonia. [facility], , 03/01/2024 4:17 PM
[2024-03-01 16:52] LABS: Glucose,Whole Blood 216 mg/dL (70-110)
--- NOTE | 2024-03-01 17:34 | CT ---
EXAMINATION TYPE: CT abdomen wo con CT DLP: 214.3 mGycm, Automated exposure control for dose reduction was used. DATE OF EXAM: 03/01/2024 5:21 PM COMPARISON: CT abdomen pelvis most recent from 02/29/2024 CLINICAL INDICATION: Female, 54 years old with history of abdominal pain; Abdominal pain, recent NG t ube placed. TECHNIQUE: Axial CT abdomen wo con;Sagittal and coronal reformats were created on a separate worksta tion. Contrast used: mL of , (none if empty) Oral contrast used: without Oral Contrast (none if empty) FINDINGS: LOWER CHEST: Unremarkable ABDOMEN LIVER: Unremarkable GALLBLADDER AND BILE DUCTS: Gallbladder appears surgically absent. PANCREAS: Unremarkable. SPLEEN: Unremarkable. ADRENAL GLANDS: Unremarkable. KIDNEYS AND URETERS: No evidence of hydronephrosis or renal calculus. The ureters are unremarkable. STOMACH AND BOWEL: No evidence of bowel obstruction. Nasogastric tube in appropriate position. J-tube terminating in the jejunum. The appendix is normal. Oral contrast seen throughout the colon from shawn or exam. PERITONEUM/RETROPERITONEUM: No evidence of pneumoperitoneum or free fluid. VASCULATURE: No evidence of aortic aneurysm. MUSCULOSKELETAL: No acute osseous abnormalities LYMPH NODES: No gross evidence for lymphadenopathy. SOFT TISSUE/ABDOMINAL WALL: Unremarkable IMPRESSION: 1. Nasogastric tube and J-tube in appropriate position. The remainder of exam is relatively unchange d. 2. Appendix is within normal limits. 3. The gallbladder surgically absent. [facility], , 03/01/2024 5:32 PM
[2024-03-01 20:23] LABS: Glucose,Whole Blood 169 mg/dL (70-110)
--- NOTE | 2024-03-01 22:51 | PN ---
PROGRESS NOTE SUBJECTIVE: White count was up to 20, hemoglobin 8.5, will be changed tomorrow. Waiting for further reports and help from Dr. Brunson for infection. Wait for his recommendations. Cardiology saw her. She has abdominal discomfort, nausea, vomiting, history of gastroparesis, sinus tachycardia, hypertension, dyslipidemia, possibly underlying infection, tachycardia is multifactorial. Thyroid is normal. Echo was normal. Continue current treatment. Fluid rehydration. Iron infusions. Broad-spectrum antibiotics per Boy. Wait for further cultures. MMODL / IJN: [id number] /
[2024-03-02 02:06] LABS: Glucose,Whole Blood 136 mg/dL (70-110)
[2024-03-02 05:30] LABS: Basophils # (A) 0.1 k/uL (0-0.2); Basophils % (A) 1 %; Eosinophils # (A) 0.2 k/uL (0-0.7); Eosinophils % (A) 1 %; HCT 24.4 % (34.0-46.0); HGB 7.9 gm/dL (11.4-16.0); Hypochromasia Marked; Lymphocytes # (A) 1.7 k/uL (1.0-4.8); Lymphocytes % (A) 8 %; MCH 29.4 pg (25.0-35.0); MCHC 32.1 g/dL (31.0-37.0); MCV 91.4 fL (80.0-100.0); Mean Platelet Volume 7.5; Monocytes # (A) 1.2 k/uL (0-1.0); Monocytes % (A) 5 %; Neutrophils # (A) 18.2 k/uL (1.3-7.7); Neutrophils % (A) 82 %; RBC 2.67 m/uL (3.80-5.40); RDW 15.9 % (11.5-15.5); WBC 22.2 k/uL (3.8-10.6)
[2024-03-02 05:47] LABS: ALT 27 U/L (4-34); AST 22 U/L (14-36); African American GFR (CKD) 63 (>60 ml/min/1.73 sqM); Albumin 2.2 g/dL (3.5-5.0); Albumin/Globulin Ratio 0.8; Alkaline Phosphatase 161 U/L (38-126); Anion Gap 13 mmol/L; Blood Urea Nitrogen 9 mg/dL (7-17); Calcium 7.4 mg/dL (8.4-10.2); Carbon Dioxide 12 mmol/L (22-30); Chloride 115 mmol/L (98-107); Globulin 2.8 g/dL; Glucose 124 mg/dL (74-99); Magnesium 1.8 mg/dL (1.6-2.3); Non-African American GFR(CKD) 55 (>60 ml/min/1.73 sqM); Phosphorus 2.7 mg/dL (2.5-4.5); Potassium 3.4 mmol/L (3.5-5.1); Sodium 140 mmol/L (137-145); Total Bilirubin 0.3 mg/dL (0.2-1.3)
[2024-03-02 06:10] LABS: Platelet Count 387 k/uL (150-450)
[2024-03-02 06:12] LABS: Glucose,Whole Blood 136 mg/dL (70-110)
--- NOTE | 2024-03-02 07:52 | PN ---
PROGRESS NOTE T-max 102.3, pulse 94 to 95 on room air. She had Dopplers done today, which were negative of the arm. Dr. Brunson saw her for fevers, chills. DICTATION ENDS HERE. MMODL / IJN: [id number] /
[2024-03-02] MEDS: LACTATED RINGERS 1,000 ML IV ONE (08:32)
[2024-03-02 11:10] LABS: Glucose,Whole Blood 121 mg/dL (70-110)
--- NOTE | 2024-03-02 11:37 | P.PN ---
Subjective Progress Note Date: 03/02/24 CHIEF COMPLAINT: Abdominal pain HISTORY OF PRESENT ILLNESS: Over the weekend patient had increased nausea and leaking from the G-tube site. Tube feeds are on hold. NG tube is placed. Patient had a liter of bilious output through the NG tube. Patient feels dry and thirsty. She did receive a fluid bolus this morning and has been started on normal saline at 100. CT scan from yesterday reports that the J-tube is in appropriate position. CT scan from 02/28 reports scattered mild small bowel fold thickening may relate to incomplete distention given the liquid stool in the right side of the colon consider nonspecific enteritis. Infiltrates at the lung bases. Residual oral contrast within the lower esophagus may be due to GERD or esophageal dysmotility. Wall thickening has significantly improved from 10/06/2023. Low-grade temp 100.2. Mildly tachycardic. WBC is up from 20-22.2 Hgb 7.9. Patient reports no increase in her abdominal pain. Her pain feels like her chronic pain. Patient seen and examined with Dr. Garzon PHYSICAL EXAM: VITAL SIGNS: Reviewed. GENERAL: no acute distress. ABDOMEN: Soft. Nondistended. J-tube site with erythema and skin irritation around the J-tube. There is bile drainage noted from the J-tube site NEUROLOGIC: Alert and oriented. Cranial nerves II through XII grossly intact. ASSESSMENT: 1. Gastroparesis 2. Chronic abdominal pain 3. Uncontrolled diabetes mellitus 4. Fevers 5. Severe protein calorie malnutrition 6. Leukocytosis PLAN: -Dr. Garzon removed 5 cc of air from the J-tube balloon. The amount of air has decreased from 10 cc to 5 cc -Start TPN for nutrition support. Patient is not tolerating tube feeds -Continue to hold tube feeds -Continue to apply zinc barrier cream around J-tube site -Dr. Garzon ordered a 1 L bolus this morning and started fluids at 100 mL/h -Continue NG tube for decompression -Keep patient n.p.o. except for ice chips -Change Reglan to IV Physician Telephone Instrument Supervisor note has been reviewed by physician. Signing provider agrees with the documented findings, assessment, and plan of care. Objective - Vital Signs Vital signs: Vital Signs Temp 98.3 F 03/02/24 08:00 Pulse 103 H 03/02/24 08:00 Resp 03/02/24 08:00 BP 108/63 03/02/24 08:00 Pulse Ox 97 03/02/24 08:00 FiO2 Intake & Output 03/01/24 03/02/24 03/02/24 18:59 06:59 18:59 Output Total 500 550 Balance -500 -550 Weight 32.5 kg Output: Gastric Drainage 500 550 Other: Voiding Method Bedside Commode # Voids 3 - Labs CBC & Chem 7: 03/02/24 04:41 03/02/24 04:41 Labs: Abnormal Lab Results - Last 24 Hours (Table) 03/01/24 03/01/24 03/01/24 Range/Units 08:09 11:32 16:51 WBC (3.8-10.6) k/uL RBC (3.80-5.40) m/uL Hgb (11.4-16.0) gm/dL Hct (34.0-46.0) % RDW (11.5-15.5) % Neutrophils # (1.3-7.7) k/uL Monocytes # (0-1.0) k/uL Potassium (3.5-5.1) mmol/L Chloride (98-107) mmol/L Carbon Dioxide (22-30) mmol/L Creatinine (0.52-1.04) mg/dL Glucose (74-99) mg/dL POC Glucose (mg/dL) 194 H 216 H (70-110) mg/dL Calcium (8.4-10.2) mg/dL Alkaline Phosphatase (38-126) U/L Total Protein (6.3-8.2) g/dL Albumin (3.5-5.0) g/dL Procalcitonin 0.89 H (0.02-0.50) ng/mL 03/01/24 03/02/24 03/02/24 Range/Units 20:21 02:04 04:41 WBC (3.8-10.6) k/uL RBC (3.80-5.40) m/uL Hgb (11.4-16.0) gm/dL Hct (34.0-46.0) % RDW (11.5-15.5) % Neutrophils # (1.3-7.7) k/uL Monocytes # (0-1.0) k/uL Potassium 3.4 L (3.5-5.1) mmol/L Chloride 115 H (98-107) mmol/L Carbon Dioxide 12 L (22-30) mmol/L Creatinine 1.16 H (0.52-1.04) mg/dL Glucose 124 H (74-99) mg/dL POC Glucose (mg/dL) 169 H 136 H (70-110) mg/dL Calcium 7.4 L (8.4-10.2) mg/dL Alkaline Phosphatase 161 H (38-126) U/L Total Protein 5.0 L (6.3-8.2) g/dL Albumin 2.2 L (3.5-5.0) g/dL Procalcitonin (0.02-0.50) ng/mL 03/02/24 03/02/24 Range/Units 04:41 06:10 WBC 22.2 H (3.8-10.6) k/uL RBC 2.67 L (3.80-5.40) m/uL Hgb 7.9 L (11.4-16.0) gm/dL Hct 24.4 L (34.0-46.0) % RDW 15.9 H (11.5-15.5) % Neutrophils # 18.2 H (1.3-7.7) k/uL Monocytes # 1.2 H (0-1.0) k/uL Potassium (3.5-5.1) mmol/L Chloride (98-107) mmol/L Carbon Dioxide (22-30) mmol/L Creatinine (0.52-1.04) mg/dL Glucose (74-99) mg/dL POC Glucose (mg/dL) 136 H (70-110) mg/dL Calcium (8.4-10.2) mg/dL Alkaline Phosphatase (38-126) U/L Total Protein (6.3-8.2) g/dL Albumin (3.5-5.0) g/dL Procalcitonin (0.02-0.50) ng/mL
--- NOTE | 2024-03-02 12:05 | P.PN ---
Subjective Progress Note Date: 03/02/24 Principal diagnosis: Reason for follow-up is fever concern for possible PICC infection Patient is a 54-year-old female with multiple comorbidities including diabetes mellitus hypertension diabetic gastroparesis and did have a jejunostomy tube placement on January 15, 2024, patient also have a double-lumen PICC line placement to the left upper arm about a month ago for TPN has developed fever prompting this consultation. On today's evaluation that is 03/02/2024, patient did have a fever 100.2 F at 2 AM, the patient has been afebrile since then, patient is breathing comfortably and is currently on room air, patient denies having any significant cough no chest pain shortness of breath, patient did have NG to suction cell count, still complaining of Abdominal pain no bowel movement since yesterday. The patient white count is up to 22.2, creatinine is 1.16 Objective - Vital Signs Vital signs: Vital Signs Temp 98.3 F 03/02/24 08:00 Pulse 103 H 03/02/24 08:00 Resp 16 03/02/24 08:00 BP 108/63 03/02/24 08:00 Pulse Ox 97 03/02/24 08:00 FiO2 Intake & Output 03/01/24 03/02/24 03/02/24 18:59 06:59 18:59 Output Total 500 550 Balance -500 -550 Weight 32.5 kg Output: Gastric Drainage 500 550 Other: Voiding Method Bedside Commode # Voids 3 - Exam GENERAL DESCRIPTION: Middle-age female lying in bed in no distress RESPIRATORY SYSTEM: Unlabored breathing , decreased breath sounds at bases HEART: S1 S2 regular rate and rhythm , ABDOMEN: Soft , no tenderness EXTREMITIES: No edema feet - Labs CBC & Chem 7: 03/02/24 04:41 03/02/24 04:41 Labs: Abnormal Lab Results - Last 24 Hours (Table) 03/01/24 03/01/24 03/01/24 Range/Units 08:09 11:32 16:51 WBC (3.8-10.6) k/uL RBC (3.80-5.40) m/uL Hgb (11.4-16.0) gm/dL Hct (34.0-46.0) % RDW (11.5-15.5) % Neutrophils # (1.3-7.7) k/uL Monocytes # (0-1.0) k/uL Potassium (3.5-5.1) mmol/L Chloride (98-107) mmol/L Carbon Dioxide (22-30) mmol/L Creatinine (0.52-1.04) mg/dL Glucose (74-99) mg/dL POC Glucose (mg/dL) 194 H 216 H (70-110) mg/dL Calcium (8.4-10.2) mg/dL Alkaline Phosphatase (38-126) U/L Total Protein (6.3-8.2) g/dL Albumin (3.5-5.0) g/dL Procalcitonin 0.89 H (0.02-0.50) ng/mL 03/01/24 03/02/24 03/02/24 Range/Units 20:21 02:04 04:41 WBC (3.8-10.6) k/uL RBC (3.80-5.40) m/uL Hgb (11.4-16.0) gm/dL Hct (34.0-46.0) % RDW (11.5-15.5) % Neutrophils # (1.3-7.7) k/uL Monocytes # (0-1.0) k/uL Potassium 3.4 L (3.5-5.1) mmol/L Chloride 115 H (98-107) mmol/L Carbon Dioxide 12 L (22-30) mmol/L Creatinine 1.16 H (0.52-1.04) mg/dL Glucose 124 H (74-99) mg/dL POC Glucose (mg/dL) 169 H 136 H (70-110) mg/dL Calcium 7.4 L (8.4-10.2) mg/dL Alkaline Phosphatase 161 H (38-126) U/L Total Protein 5.0 L (6.3-8.2) g/dL Albumin 2.2 L (3.5-5.0) g/dL Procalcitonin (0.02-0.50) ng/mL 03/02/24 03/02/24 Range/Units 04:41 06:10 WBC 22.2 H (3.8-10.6) k/uL RBC 2.67 L (3.80-5.40) m/uL Hgb 7.9 L (11.4-16.0) gm/dL Hct 24.4 L (34.0-46.0) % RDW 15.9 H (11.5-15.5) % Neutrophils # 18.2 H (1.3-7.7) k/uL Monocytes # 1.2 H (0-1.0) k/uL Potassium (3.5-5.1) mmol/L Chloride (98-107) mmol/L Carbon Dioxide (22-30) mmol/L Creatinine (0.52-1.04) mg/dL Glucose (74-99) mg/dL POC Glucose (mg/dL) 136 H (70-110) mg/dL Calcium (8.4-10.2) mg/dL Alkaline Phosphatase (38-126) U/L Total Protein (6.3-8.2) g/dL Albumin (3.5-5.0) g/dL Procalcitonin (0.02-0.50) ng/mL Assessment and Plan (1) Sepsis Current Visit: Yes Status: Acute Code(s): A41.9 - SEPSIS, UNSPECIFIED ORGANISM SNOMED Code(s): 27557305 (2) Fever Current Visit: Yes Status: Acute Code(s): R50.9 - FEVER, UNSPECIFIED SNOMED Code(s): 830887503 Plan: 1patient with sepsis in this patient who did have fever tachycardia mild elevated white count with initial concern for possible jejunostomy tube site infection she did have some distention but no significant redness or drainage was noticed around the jejunostomy tube site patient did have a PICC line through the patient is getting TPN could be the source of this fever and sepsis 2-peripheral blood culture obtained nursing staff was not able to get culture from the PICC line, patient did have a left upper extremity Doppler that was negative for DVT 3-patient did have CT abdominal pelvis with concern for enteritis reflux and possible aspiration pneumonitis 4with a low-grade fever worsening of the white count blood culture repeat has been ordered with no MRSA we will go ahead discontinue daptomycin add Eraxis, as Diflucan cannot be added because of drug interaction, keeping in mind persistent and worsening white count while waiting for repeat culture to finalize Dictation was produced using [employer] software. please excuse any grammatical, word or spelling errors. Time with Patient: Greater than 30
[2024-03-02] MEDS: METOCLOPRAMIDE 5 MG/ML 2 ML VIAL IVP SCH (12:37)
[2024-03-02] MEDS: ANIDULAFUNGIN 200 MG in SODIUM CHLORIDE 0.9% 200 ML IVPB ONE (14:02)
[2024-03-02] MEDS: POTASSIUM CHLORIDE 20 MEQ in WATER FOR INJECTION 1 100ML.BAG IVPB STA (15:56)
[2024-03-02 16:52] LABS: Glucose,Whole Blood 115 mg/dL (70-110)
[2024-03-02] MEDS: FAT EMULSION 20% 250 ML in EMPTY BAG 1 BAG IV SCH (19:24)
--- NOTE | 2024-03-02 21:06 | XR ---
EXAMINATION TYPE: XR chest 1V portable DATE OF EXAM: 03/02/2024 8:59 PM CLINICAL INDICATION: Female, 54 years old with history of NG tube placement; [facility] COMPARISON: Chest radiographs from 03/01/2024 TECHNIQUE: XR chest 1V portable Frontal view of the chest. FINDINGS: Lungs/Pleura: There is no evidence of pleural effusion, focal consolidation, or pneumothorax. Pulmonary vascularity: Unremarkable. Heart/mediastinum: Cardiomediastinal silhouette is unremarkable. Atherosclerotic calcifications are seen in the aorta. Musculoskeletal: No acute osseous pathology. Other findings: None Lines/Tubes: Nasogastric tube with its distal tip and side-port projecting under the diaphragm. Left internal jugular central venous catheter with distal tip at the cavoatrial junction. IMPRESSION: No acute cardiopulmonary disease/process. [facility], , 03/02/2024 9:04 PM
[2024-03-02 21:27] LABS: Glucose,Whole Blood 161 mg/dL (70-110)
--- NOTE | 2024-03-02 22:09 | PN ---
PROGRESS NOTE SUBJECTIVE: A 54-year-old white female, still spiked fever of 100.2, temp 97.9, pulse is 114, blood pressure 127/77, O2 of 99% on room air. White count is 22.2, hemoglobin 7.9. Procalcitonin done on the shows 0.89. Remains on broad-spectrum antibiotics. Wait for Dr. Brunson's recommendations. OBJECTIVE: CARDIOVASCULAR: S1, S2. LUNGS: Transmitted upper sounds. GI: Soft, nontender. Hemoglobin is 7.9. Sepsis, fever, tachycardia, mildly elevated white count, concern for possible jejunostomy site infection. Continue current therapy. Blood count, white count, MRSA. Repeat blood culture. They are going to add Eraxis for fungal coverage. Wait for further findings for Dr. Brunson. MMODL / IJN: [id number] /
--- NOTE | 2024-03-03 01:25 | XR ---
EXAM: XR Chest, 1 View CLINICAL HISTORY: ITS.REASON XR Reason: ng tube placement TECHNIQUE: Frontal view of the chest. COMPARISON: Prior chest x-ray from March 02, 2024 at 8:51 PM. FINDINGS: There is an NG tube overlying the esophagus extending into the stomach with the distal tip of the image. Lungs: Unremarkable. No consolidation. Pleural space: Unremarkable. No pneumothorax. Heart: Unremarkable. No cardiomegaly. Mediastinum: Unremarkable. Normal mediastinal contour. Bones/joints: Unremarkable. No acute fracture. IMPRESSION: There is an NG tube extending into the stomach with the distal tip off the image.
[2024-03-03 02:03] LABS: Glucose,Whole Blood 263 mg/dL (70-110)
[2024-03-03 05:44] LABS: Glucose,Whole Blood 351 mg/dL (70-110)
[2024-03-03 06:15] LABS: Ionized Calcium 4.9 mg/dL (4.5-5.3)
[2024-03-03 06:21] LABS: African American GFR (CKD) 65 (>60 ml/min/1.73 sqM); Anion Gap 13 mmol/L; Blood Urea Nitrogen 13 mg/dL (7-17); Carbon Dioxide 11 mmol/L (22-30); Chloride 113 mmol/L (98-107); Glucose 319 mg/dL (74-99); Magnesium 1.8 mg/dL (1.6-2.3); Non-African American GFR(CKD) 56 (>60 ml/min/1.73 sqM); Phosphorus 3.3 mg/dL (2.5-4.5); Potassium 3.5 mmol/L (3.5-5.1); Sodium 137 mmol/L (137-145)
[2024-03-03] MEDS: ANIDULAFUNGIN 100 MG in SODIUM CHLORIDE 0.9% 100 ML IVPB SCH (09:25)
[2024-03-03] MEDS: POTASSIUM CHLORIDE 10 MEQ in WATER FOR INJECTION 1 100ML.BAG IVPB STA (09:25)
[2024-03-03 11:40] LABS: Glucose,Whole Blood 197 mg/dL (70-110)
--- NOTE | 2024-03-03 12:53 | P.PN ---
Subjective Progress Note Date: 02/25/24 Principal diagnosis: Reason for follow-up is fever concern for possible PICC infection Patient is a 54-year-old female with multiple comorbidities including diabetes mellitus hypertension diabetic gastroparesis and did have a jejunostomy tube placement on January 15, 2024, patient also have a double-lumen PICC line placement to the left upper arm about a month ago for TPN has developed fever prompting this consultation. On today's evaluation that is 03/03/2024, Patient did have resolution of her fever and is afebrile this morning patient denies having any chest pain shortne ss of breath or cough, the patient is breathing comfortably on room air, patient still complain of some abdominal discomfort around the G-tube site but no worsening and no diarrhea has been reported. Patient did have a creatinine 1.13 no CBC was done today blood culture repeat currently pending Objective - Vital Signs Vital signs: Vital Signs Temp 98.6 F 03/03/24 07:30 Pulse 119 H 03/03/24 07:30 Resp 17 03/03/24 07:30 BP 148/81 03/03/24 07:30 Pulse Ox 97 03/03/24 07:30 FiO2 Intake & Output 03/02/24 03/03/24 03/03/24 18:59 06:59 18:59 Output Total 800 Balance -800 Weight 32.5 kg 34.5 kg 34.5 kg Output: Gastric Drainage 800 Other: Voiding Method Bedside Commode Bedside Commode # Voids 1 - Exam GENERAL DESCRIPTION: Middle-age female lying in bed in no distress RESPIRATORY SYSTEM: Unlabored breathing , decreased breath sounds at bases HEART: S1 S2 regular rate and rhythm , ABDOMEN: Soft , no tenderness EXTREMITIES: No edema feet - Labs CBC & Chem 7: 03/02/24 04:41 03/03/24 05:54 Labs: Abnormal Lab Results - Last 24 Hours (Table) 03/02/24 03/02/24 03/03/24 Range/Units 16:51 21:25 02:01 Chloride (98-107) mmol/L Carbon Dioxide (22-30) mmol/L Creatinine (0.52-1.04) mg/dL Glucose (74-99) mg/dL POC Glucose (mg/dL) 115 H 161 H 263 H (70-110) mg/dL Calcium (8.4-10.2) mg/dL Triglycerides (0.00-149.00) mg/dL 03/03/24 03/03/24 03/03/24 Range/Units 05:43 05:54 05:54 Chloride 113 H (98-107) mmol/L Carbon Dioxide 11 L (22-30) mmol/L Creatinine 1.13 H (0.52-1.04) mg/dL Glucose 319 H (74-99) mg/dL POC Glucose (mg/dL) 351 H (70-110) mg/dL Calcium 8.0 L (8.4-10.2) mg/dL Triglycerides 346.00 H (0.00-149.00) mg/dL 03/03/24 Range/Units 11:39 Chloride (98-107) mmol/L Carbon Dioxide (22-30) mmol/L Creatinine (0.52-1.04) mg/dL Glucose (74-99) mg/dL POC Glucose (mg/dL) 197 H (70-110) mg/dL Calcium (8.4-10.2) mg/dL Triglycerides (0.00-149.00) mg/dL Microbiology - Last 24 Hours (Table) 02/26/24 22:33 Blood Culture - Final Blood Assessment and Plan (1) Sepsis Current Visit: Yes Status: Acute Code(s): A41.9 - SEPSIS, UNSPECIFIED ORGANISM SNOMED Code(s): 84552094 (2) Fever Current Visit: Yes Status: Acute Code(s): R50.9 - FEVER, UNSPECIFIED SNOMED Code(s): 227655635 Plan: 1patient with sepsis in this patient who did have fever tachycardia mild elevated white count with initial concern for possible jejunostomy tube site infection she did have some distention but no significant redness or drainage was noticed around the jejunostomy tube site patient did have a PICC line through the patient is getting TPN could be the source of this fever and sepsis 2-peripheral blood culture obtained nursing staff was not able to get culture from the PICC line, patient did have a left upper extremity Doppler that was negative for DVT 3-patient did have CT abdominal pelvis with concern for enteritis reflux and possible aspiration pneumonitis 4patient did have improvement her fever pattern will wait for the repeat blood culture to be finalized continue with the [employer] Dictation was produced using dragon dictation software. please excuse any gramm atical, word or spelling errors. Time with Patient: Less than 30
--- NOTE | 2024-03-03 13:01 | P.PN ---
Subjective Progress Note Date: 03/03/24 CHIEF COMPLAINT: Abdominal pain HISTORY OF PRESENT ILLNESS: Patient reports feeling better today. No nausea. Decreased abdominal pain. Decreased drainage around the J tube site. NG tube had 800 mL output through the night and 400 this morning. She is having flatus and bowel movements. Afebrile. Mildly tachycardic. WBC 22.2 yesterday. CBC from today pending creatinine 1.13. Patient was started on TPN. Patient seen and examined with Dr. Garzon PHYSICAL EXAM: VITAL SIGNS: Reviewed. GENERAL: no acute distress. ABDOMEN: Soft. Nondistended. Decreased bilious drainage around J-tube site. Mild erythema. NEUROLOGIC: Alert and oriented. Cranial nerves II through XII grossly intact. ASSESSMENT: 1. Gastroparesis 2. Chronic abdominal pain 3. Uncontrolled diabetes mellitus 4. Possible aspiration pneumonia 5. Severe protein calorie malnutrition 6. Leukocytosis PLAN: -Dr. Garzon removed 5 cc of air from the J-tube balloon yesterday. The amount of air has decreased from 10 cc to 5 cc -Continue NG tube for decompression. Anticipate removing NG tube tomorrow -Keep patient n.p.o. except for ice chips -Continue to hold tube feeds -Continue to apply zinc barrier cream around J-tube site -Continue IV Reglan -Dr. Alejo will be out of town starting tomorrow and will return on 03/09/2024. Dr. Chong and Dr. Sam will be covering his patients. Physician Finishing Wire Sawyer note has been reviewed by physician. Signing provider agrees with the documented findings, assessment, and plan of care. Objective - Vital Signs Vital signs: Vital Signs Temp 98.6 F 03/03/24 07:30 Pulse 119 H 03/03/24 09:20 Resp 17 03/03/24 09:20 BP 148/81 03/03/24 07:30 Pulse Ox 97 03/03/24 07:30 FiO2 Intake & Output 03/02/24 03/03/24 03/03/24 18:59 06:59 18:59 Output Total 800 Balance -800 Weight 32.5 kg 34.5 kg 34.5 kg Output: Gastric Drainage 800 Other: Voiding Method Bedside Commode Bedside Commode Bedside Commode # Voids 1 - Labs CBC & Chem 7: 03/02/24 04:41 03/03/24 05:54 Labs: Abnormal Lab Results - Last 24 Hours (Table) 03/02/24 03/02/24 03/03/24 Range/Units 16:51 21:25 02:01 Chloride (98-107) mmol/L Carbon Dioxide (22-30) mmol/L Creatinine (0.52-1.04) mg/dL Glucose (74-99) mg/dL POC Glucose (mg/dL) 115 H 161 H 263 H (70-110) mg/dL Calcium (8.4-10.2) mg/dL Triglycerides (0.00-149.00) mg/dL 03/03/24 03/03/24 03/03/24 Range/Units 05:43 05:54 05:54 Chloride 113 H (98-107) mmol/L Carbon Dioxide 11 L (22-30) mmol/L Creatinine 1.13 H (0.52-1.04) mg/dL Glucose 319 H (74-99) mg/dL POC Glucose (mg/dL) 351 H (70-110) mg/dL Calcium 8.0 L (8.4-10.2) mg/dL Triglycerides 346.00 H (0.00-149.00) mg/dL 03/03/24 Range/Units 11:39 Chloride (98-107) mmol/L Carbon Dioxide (22-30) mmol/L Creatinine (0.52-1.04) mg/dL Glucose (74-99) mg/dL POC Glucose (mg/dL) 197 H (70-110) mg/dL Calcium (8.4-10.2) mg/dL Triglycerides (0.00-149.00) mg/dL Microbiology - Last 24 Hours (Table) 02/26/24 22:33 Blood Culture - Final Blood
[2024-03-03 16:15] LABS: Glucose,Whole Blood 121 mg/dL (70-110)
[2024-03-03 20:15] LABS: Glucose,Whole Blood 123 mg/dL (70-110)
[2024-03-04 02:03] LABS: Glucose,Whole Blood 250 mg/dL (70-110)
--- NOTE | 2024-03-04 02:22 | PN ---
PROGRESS NOTE SUBJECTIVE: Chest x-ray showed NG tube into the stomach, distal tip, was admitted. She had been seen by Dr. Brunson, Infectious Disease for leukocytosis, fever, possibly PICC line infection. Resolution of fever. Denies any chest pain, shortness of breath, or cough. Still complains of abdominal discomfort in the G-tube site. No worsening or no diarrhea. Creatinine 1.13. OBJECTIVE: VITAL SIGNS: Blood pressure 148/81, temp 98.6, pulse 119, respiratory rate 16 to 18, O2 of 97%. GENERAL: Thin, cachectic. LUNGS: Transmitted upper sounds HEART: S1, S2. ABDOMEN: Soft. EXTREMITIES: No edema of the legs. LABORATORY DATA: White count 22.2, hemoglobin is 7.9. Fever, tachycardia, elevated white count. The nurses are not able to get culture from the PICC line. Negative for DVT in the arm. She has aspiration pneumonitis and enteritis, on Zosyn . Prognosis guarded. Continue current treatment. MMODL / IJN: [id number] /
[2024-03-04 05:05] LABS: ALT 21 U/L (4-34); AST 19 U/L (14-36); African American GFR (CKD) 74 (>60 ml/min/1.73 sqM); Albumin 2.3 g/dL (3.5-5.0); Albumin/Globulin Ratio 0.7; Alkaline Phosphatase 153 U/L (38-126); Anion Gap 8 mmol/L; Blood Urea Nitrogen 17 mg/dL (7-17); Calcium 8.3 mg/dL (8.4-10.2); Carbon Dioxide 21 mmol/L (22-30); Chloride 110 mmol/L (98-107); Globulin 3.1 g/dL; Glucose 281 mg/dL (74-99); Magnesium 1.8 mg/dL (1.6-2.3); Non-African American GFR(CKD) 64 (>60 ml/min/1.73 sqM); Phosphorus 3.2 mg/dL (2.5-4.5); Potassium 2.8 mmol/L (3.5-5.1); Sodium 139 mmol/L (137-145); Total Bilirubin 0.2 mg/dL (0.2-1.3); Total Protein 5.4 g/dL (6.3-8.2)
[2024-03-04 06:21] LABS: Glucose,Whole Blood 344 mg/dL (70-110)
[2024-03-04 08:45] LABS: Basophils # (A) 0.06 X 10*3/uL (0.00-0.10); Basophils % (A) 0.4 %; Eosinophils # (A) 0.25 X 10*3/uL (0.04-0.35); Eosinophils % (A) 1.7 %; HCT 24.9 % (37.2-46.3); HGB 7.5 g/dL (12.0-15.0); Lymphocytes # (A) 1.82 X 10*3/uL (0.90-5.00); Lymphocytes % (A) 12.1 %; MCH 27.5 pg (27.0-32.0); MCHC 30.1 g/dL (32.0-37.0); MCV 91.2 FL (80.0-97.0); Monocytes # (A) 0.83 X 10*3/uL (0.20-1.00); Monocytes % (A) 5.5 %; NRBC Per 100 WBC 0 X 10*3/uL (0.00-0.01); Neutrophils # (A) 11.94 X 10*3/uL (1.80-7.70); Neutrophils % (A) 79.6 %; Platelet Count 502 X 10*3/uL (140-440); RBC 2.73 X 10*6/uL (4.10-5.20); RDW 16.1 % (11.5-14.5); WBC 15.01 X 10*3/uL (4.50-10.00)
[2024-03-04] MEDS: POTASSIUM CHLORIDE 20 MEQ in WATER FOR INJECTION 1 100ML.BAG IVPB SCH (09:31)
[2024-03-04 11:22] LABS: Glucose,Whole Blood 284 mg/dL (70-110)
--- NOTE | 2024-03-04 14:04 | P.PN ---
Subjective Progress Note Date: 03/04/24 CHIEF COMPLAINT: Abdominal pain HISTORY OF PRESENT ILLNESS: Patient reports feeling better today. Patient has had no output through the NG tube. She is having bowel movements and flatus. She denies any nausea. She reports her pain is back to her chronic pain. Afebrile. Mildly tachycardic. WBC is down from 22-15 potassium is 2.8 and pharmacy is replacing Patient seen and examined with Dr. Chong who is covering for Dr. Garzon PHYSICAL EXAM: VITAL SIGNS: Reviewed. GENERAL: no acute distress. ABDOMEN: Soft. Nondistended. nontender There is bilious drainage noted around J-tube site NEUROLOGIC: Alert and oriented. Cranial nerves II through XII grossly intact. ASSESSMENT: 1. Gastroparesis 2. Chronic abdominal pain 3. Uncontrolled diabetes mellitus 4. Possible aspiration pneumonia 5. Severe protein calorie malnutrition 6. Leukocytosis PLAN: -NG tube pulled this morning. -Consult dietitian to start tube feeds slowly at 10 mL/h -Continue to monitor -Dressings changed around J-tube site -Patient can have sips of water -Continue to apply zinc barrier cream around J-tube site -Continue IV Reglan Physician Tape Rules Printing Machine Operator note has been reviewed by physician. Signing provider agrees with the documented findings, assessment, and plan of care. Objective - Vital Signs Vital signs: Vital Signs Temp 97.7 F 03/04/24 13:41 Pulse 105 H 03/04/24 13:41 Resp 18 03/04/24 13:41 BP 152/88 03/04/24 13:41 Pulse Ox 96 03/04/24 13:41 FiO2 Intake & Output 03/03/24 03/04/24 03/04/24 18:59 06:59 18:59 Intake Total 1040 Balance 1040 Weight 34.5 kg 38 kg 38 kg Intake: Oral 1040 Other: Voiding Method Bedside Commode Bedside Commode # Voids 1 4 # Bowel Movements 1 1 - Labs CBC & Chem 7: 03/04/24 04:28 03/04/24 04:28 Labs: Abnormal Lab Results - Last 24 Hours (Table) 03/03/24 03/03/24 03/04/24 Range/Units 16:13 20:06 02:01 WBC (4.50-10.00) X 10*3/uL RBC (4.10-5.20) X 10*6/uL Hgb (12.0-15.0) g/dL Hct (37.2-46.3) % MCHC (32.0-37.0) g/dL RDW (11.5-14.5) % Plt Count (140-440) X 10*3/uL Immature Gran # (0.00-0.04) X 10*3/uL Neutrophils # (1.80-7.70) X 10*3/uL Potassium (3.5-5.1) mmol/L Chloride (98-107) mmol/L Carbon Dioxide (22-30) mmol/L Glucose (74-99) mg/dL POC Glucose (mg/dL) 121 H 123 H 250 H (70-110) mg/dL Calcium (8.4-10.2) mg/dL Alkaline Phosphatase (38-126) U/L Total Protein (6.3-8.2) g/dL Albumin (3.5-5.0) g/dL 03/04/24 03/04/24 03/04/24 Range/Units 04:28 04:28 06:20 WBC 15.01 H (4.50-10.00) X 10*3/uL RBC 2.73 L (4.10-5.20) X 10*6/uL Hgb 7.5 L (12.0-15.0) g/dL Hct 24.9 L (37.2-46.3) % MCHC 30.1 L (32.0-37.0) g/dL RDW 16.1 H (11.5-14.5) % Plt Count 502 H (140-440) X 10*3/uL Immature Gran # 0.11 H (0.00-0.04) X 10*3/uL Neutrophils # 11.94 H (1.80-7.70) X 10*3/uL Potassium 2.8 L (3.5-5.1) mmol/L Chloride 110 H (98-107) mmol/L Carbon Dioxide 21 L (22-30) mmol/L Glucose 281 H (74-99) mg/dL POC Glucose (mg/dL) 344 H (70-110) mg/dL Calcium 8.3 L (8.4-10.2) mg/dL Alkaline Phosphatase 153 H (38-126) U/L Total Protein 5.4 L (6.3-8.2) g/dL Albumin 2.3 L (3.5-5.0) g/dL 03/04/24 Range/Units 11:20 WBC (4.50-10.00) X 10*3/uL RBC (4.10-5.20) X 10*6/uL Hgb (12.0-15.0) g/dL Hct (37.2-46.3) % MCHC (32.0-37.0) g/dL RDW (11.5-14.5) % Plt Count (140-440) X 10*3/uL Immature Gran # (0.00-0.04) X 10*3/uL Neutrophils # (1.80-7.70) X 10*3/uL Potassium (3.5-5.1) mmol/L Chloride (98-107) mmol/L Carbon Dioxide (22-30) mmol/L Glucose (74-99) mg/dL POC Glucose (mg/dL) 284 H (70-110) mg/dL Calcium (8.4-10.2) mg/dL Alkaline Phosphatase (38-126) U/L Total Protein (6.3-8.2) g/dL Albumin (3.5-5.0) g/dL Microbiology - Last 24 Hours (Table) 03/02/24 14:00 Blood Culture - Preliminary Blood
[2024-03-04 16:58] LABS: Glucose,Whole Blood 101 mg/dL (70-110)
[2024-03-04 21:44] LABS: Glucose,Whole Blood 184 mg/dL (70-110)
--- NOTE | 2024-03-05 02:25 | PN ---
PROGRESS NOTE SUBJECTIVE: She had a surgery on 03/04/2024 for abdominal pain, possible wound and PICC line infection. She has had no output through NG tube which has been removed. White count is down from 22 to 15. Potassium is 2.8. PHYSICAL EXAM: GENERAL: She appears to be in no acute distress today. No vomiting. ABDOMEN: Soft. Some bilious drainage around the KEVIN tube site. NEUROLOGIC: Cranial nerves intact. ASSESSMENT: Gastroparesis, chronic abdominal pain, uncontrolled diabetes mellitus, aspiration pneumonia on CAT scan. Severe protein calorie malnutrition. Leukocytosis. NG tube has been removed. Tube feedings can be started slowly. Sips of water empirically on tube site, IV Reglan. Prognosis guarded. Treatment with IV antibiotics persisted per Dr. Brunson. MMODL / IJN: [id number] /
[2024-03-05 05:51] LABS: African American GFR (CKD) >90 (>60 ml/min/1.73 sqM); Anion Gap 6 mmol/L; Blood Urea Nitrogen 20 mg/dL (7-17); Calcium 8.1 mg/dL (8.4-10.2); Carbon Dioxide 26 mmol/L (22-30); Chloride 106 mmol/L (98-107); Glucose 345 mg/dL (74-99); Magnesium 1.7 mg/dL (1.6-2.3); Non-African American GFR(CKD) 83 (>60 ml/min/1.73 sqM); Phosphorus 3.1 mg/dL (2.5-4.5); Sodium 138 mmol/L (137-145)
[2024-03-05 06:21] LABS: Glucose,Whole Blood 381 mg/dL (70-110)
[2024-03-05 11:43] LABS: Glucose,Whole Blood 360 mg/dL (70-110)
[2024-03-05] MEDS: POTASSIUM CHLORIDE 20 MEQ in WATER FOR INJECTION 1 100ML.BAG IVPB SCH (12:27)
--- NOTE | 2024-03-05 12:50 | P.PN ---
Subjective Progress Note Date: 03/05/24 CHIEF COMPLAINT: Abdominal pain HISTORY OF PRESENT ILLNESS: Patient reports feeling better today. She is tolerating the tube feeds at 10 mL/h. Denies any nausea or vomiting. She is having bowel movements. Afebrile. Patient requesting something to eat. Afebrile. CBC pending. Potassium 3.0 magnesium 1.7. Positive blood culture with yeast. Followed by infectious disease Patient seen and examined with Dr. Sam who is covering for Dr. Garzon PHYSICAL EXAM: VITAL SIGNS: Reviewed. GENERAL: no acute distress. ABDOMEN: Soft. Nondistended. nontender There is minimal bilious drainage noted around J-tube site NEUROLOGIC: Alert and oriented. Cranial nerves II through XII grossly intact. ASSESSMENT: 1. Gastroparesis 2. Ileus 3. Chronic abdominal pain 4. Uncontrolled diabetes mellitus 5. Possible aspiration pneumonia 6. Severe protein calorie malnutrition 7. Leukocytosis PLAN: -Tube feeds increased to 15 mL/h. Consult dietitian to continue to titrate tube feeds -Start clear liquid diet -Continue to monitor -Continue to apply zinc barrier cream around J-tube site -Continue IV Reglan Physician Construction Craft Laborer note has been reviewed by physician. Signing provider agrees with the documented findings, assessment, and plan of care. Objective - Vital Signs Vital signs: Vital Signs Temp 97.7 F 03/05/24 08:00 Pulse 113 H 03/05/24 08:00 Resp 18 03/05/24 08:00 BP 160/92 03/05/24 08:00 Pulse Ox 99 03/05/24 08:00 FiO2 Intake & Output 03/04/24 03/05/24 03/05/24 18:59 06:59 18:59 Intake Total 923.333 Balance 923.333 Weight 38 kg 25 kg Intake: Intake, IV Titration 923.333 Amount Mvi, Adult No.4 with Vit 923.333 K 10 ml Trace (Conc-1Ml/ Dose) 1 ml Sodium Acetate 40 meq Sodium Phosphate 6 mmol Potassium Acetate 16 meq Magnesium Sulfate gm 1 gm Calcium Gluconate 1 gm In Amino Acid 5%- D15w 1,000 ml @ 54 mls/hr IV .[id number] TERENCE Rx#: [id number] Other: Voiding Method Bedside Commode # Voids 2 # Bowel Movements 1 1 - Labs CBC & Chem 7: 03/04/24 04:28 09/19/24 05:12 Labs: Abnormal Lab Results - Last 24 Hours (Table) 03/04/24 03/05/24 03/05/24 Range/Units 21:32 05:12 06:18 Potassium 3.0 L (3.5-5.1) mmol/L BUN 20 H (7-17) mg/dL Glucose 345 H (74-99) mg/dL POC Glucose (mg/dL) 184 H 381 H (70-110) mg/dL Calcium 8.1 L (8.4-10.2) mg/dL 03/05/24 Range/Units 11:41 Potassium (3.5-5.1) mmol/L BUN (7-17) mg/dL Glucose (74-99) mg/dL POC Glucose (mg/dL) 360 H (70-110) mg/dL Calcium (8.4-10.2) mg/dL Microbiology - Last 24 Hours (Table) 03/02/24 14:00 Blood Culture Gram Stain - Preliminary Blood Blood Culture - Preliminary Molecular ID
--- NOTE | 2024-03-05 15:32 | P.PN ---
Subjective Progress Note Date: 03/04/24 Principal diagnosis: Reason for follow-up is fever concern for possible PICC infection Patient is a 54-year-old female with multiple comorbidities including diabetes mellitus hypertension diabetic gastroparesis and did have a jejunostomy tube placement on January 15, 2024, patient also have a double-lumen PICC line placement to the left upper arm about a month ago for TPN has developed fever prompting this consultation. On today's evaluation that is 03/04/2024,the patient did have resolution of her fever and denies any fever or any chills, patient is breathing comfortably on room air, the patient denies chest pain shortness of breath and no significant cough, patient denies any further nausea vomiting NG has been discontinued no abdominal pain. Patient did have a creatinine of 1.01 white count is down to 15.01 Objective - Vital Signs Vital signs: Vital Signs Temp 98.0 F 03/04/24 07:45 Pulse 104 H 03/04/24 07:45 Resp 18 03/04/24 07:45 BP 152/76 03/04/24 07:45 Pulse Ox 92 L 03/04/24 07:45 FiO2 Intake & Output 03/03/24 03/04/24 03/04/24 18:59 06:59 18:59 Intake Total 1040 Balance 1040 Weight 34.5 kg 38 kg 38 kg Intake: Oral 1040 Other: Voiding Method Bedside Commode Bedside Commode # Voids 1 4 # Bowel Movements 1 1 - Exam GENERAL DESCRIPTION: Middle-age female lying in bed in no distress RESPIRATORY SYSTEM: Unlabored breathing , decreased breath sounds at bases HEART: S1 S2 regular rate and rhythm , ABDOMEN: Soft , no tenderness EXTREMITIES: No edema feet - Labs CBC & Chem 7: 03/04/24 04:28 03/05/24 05:12 Labs: Abnormal Lab Results - Last 24 Hours (Table) 03/03/24 03/03/24 03/04/24 Range/Units 16:13 20:06 02:01 WBC (4.50-10.00) X 10*3/uL RBC (4.10-5.20) X 10*6/uL Hgb (12.0-15.0) g/dL Hct (37.2-46.3) % MCHC (32.0-37.0) g/dL RDW (11.5-14.5) % Plt Count (140-440) X 10*3/uL Immature Gran # (0.00-0.04) X 10*3/uL Neutrophils # (1.80-7.70) X 10*3/uL Potassium (3.5-5.1) mmol/L Chloride (98-107) mmol/L Carbon Dioxide (22-30) mmol/L Glucose (74-99) mg/dL POC Glucose (mg/dL) 121 H 123 H 250 H (70-110) mg/dL Calcium (8.4-10.2) mg/dL Alkaline Phosphatase (38-126) U/L Total Protein (6.3-8.2) g/dL Albumin (3.5-5.0) g/dL 03/04/24 03/04/24 03/04/24 Range/Units 04:28 04:28 06:20 WBC 15.01 H (4.50-10.00) X 10*3/uL RBC 2.73 L (4.10-5.20) X 10*6/uL Hgb 7.5 L (12.0-15.0) g/dL Hct 24.9 L (37.2-46.3) % MCHC 30.1 L (32.0-37.0) g/dL RDW 16.1 H (11.5-14.5) % Plt Count 502 H (140-440) X 10*3/uL Immature Gran # 0.11 H (0.00-0.04) X 10*3/uL Neutrophils # 11.94 H (1.80-7.70) X 10*3/uL Potassium 2.8 L (3.5-5.1) mmol/L Chloride 110 H (98-107) mmol/L Carbon Dioxide 21 L (22-30) mmol/L Glucose 281 H (74-99) mg/dL POC Glucose (mg/dL) 344 H (70-110) mg/dL Calcium 8.3 L (8.4-10.2) mg/dL Alkaline Phosphatase 153 H (38-126) U/L Total Protein 5.4 L (6.3-8.2) g/dL Albumin 2.3 L (3.5-5.0) g/dL 03/04/24 Range/Units 11:20 WBC (4.50-10.00) X 10*3/uL RBC (4.10-5.20) X 10*6/uL Hgb (12.0-15.0) g/dL Hct (37.2-46.3) % MCHC (32.0-37.0) g/dL RDW (11.5-14.5) % Plt Count (140-440) X 10*3/uL Immature Gran # (0.00-0.04) X 10*3/uL Neutrophils # (1.80-7.70) X 10*3/uL Potassium (3.5-5.1) mmol/L Chloride (98-107) mmol/L Carbon Dioxide (22-30) mmol/L Glucose (74-99) mg/dL POC Glucose (mg/dL) 284 H (70-110) mg/dL Calcium (8.4-10.2) mg/dL Alkaline Phosphatase (38-126) U/L Total Protein (6.3-8.2) g/dL Albumin (3.5-5.0) g/dL Microbiology - Last 24 Hours (Table) 03/02/24 14:00 Blood Culture - Preliminary Blood Assessment and Plan (1) Sepsis Current Visit: Yes Status: Acute Code(s): A41.9 - SEPSIS, UNSPECIFIED [facility] [place] [facility] SNOMED Code(s): 06897662 (2) Fever Current Visit: Yes Status: Acute Code(s): R50.9 - FEVER, UNSPECIFIED SNOMED Code(s): 612346318 Plan: 1patient with sepsis in this patient who did have fever tachycardia mild romel vated white count with initial concern for possible jejunostomy tube site infection she did have some distention but no significant redness or drainage was noticed around the jejunostomy tube site patient did have a PICC line through the patient is getting TPN could be the source of this fever and sepsis 2-peripheral blood culture obtained nursing staff was not able to get culture from the PICC line, patient did have a left upper extremity Doppler that was negative for DVT 3-patient did have CT abdominal pelvis with concern for enteritis reflux and possible aspiration pneumonitis 4patient did have improvement her fever pattern currently waiting for the culture to finalize we will continue with the Zosyn and Patriciaxis and monitor clinical course closely Dictation was produced using [employer] dictation software. please excuse any grammatical, word or spelling errors. Time with Patient: Less than 30
--- NOTE | 2024-03-05 15:33 | P.PN ---
Subjective Progress Note Date: 03/05/24 Principal diagnosis: Reason for follow-up is fever concern for possible PICC infection Patient is a 54-year-old female with multiple comorbidities including diabetes mellitus hypertension diabetic gastroparesis and did have a jejunostomy tube placement on January 15, 2024, patient also have a double-lumen PICC line placement to the left upper arm about a month ago for TPN has developed fever prompting this consultation. On today's evaluation that is 03/05/2024,the patient remains to be afebrile, patient is on room air not requiring supplemental oxygen and denies any shortnes s of breath no chest pain or cough.Patient denies having any nausea or vomiting, patient did have improvement in abdominal pain mention feeling hungry want to eat The patient creatinine 0.82 blood culture finalized with Vanda Objective - Vital Signs Vital signs: Vital Signs Temp 98.0 F 03/05/24 14:40 Pulse 99 03/05/24 14:40 Resp 17 03/05/24 14:40 BP 116/73 03/05/24 14:40 Pulse Ox 99 03/05/24 14:40 FiO2 Intake & Output 03/04/24 03/05/24 03/05/24 18:59 06:59 18:59 Intake Total 923.333 480 Balance 923.333 480 Weight 38 kg 25 kg Intake: Intake, IV Titration 923.333 Amount Mvi, Adult No.4 with Vit 923.333 K 10 ml Trace (Conc-1Ml/ Dose) 1 ml Sodium Acetate 40 meq Sodium Phosphate 6 mmol Potassium Acetate 16 meq Magnesium Sulfate gm 1 gm Calcium Gluconate 1 gm In Amino Acid 5%- D15w 1,000 ml @ 54 mls/hr IV .[id number] [facility] Rx#: [id number] Oral 480 Other: Voiding Method Bedside Commode # Voids 2 # Bowel Movements 1 1 - Exam GENERAL DESCRIPTION: Middle-age female lying in bed in no distress RESPIRATORY SYSTEM: Unlabored breathing , decreased breath sounds at bases HEART: S1 S2 regular rate and rhythm , ABDOMEN: Soft , no tenderness EXTREMITIES: No edema feet - Labs CBC & Chem 7: 03/04/24 04:28 03/05/24 05:12 Labs: Abnormal Lab Results - Last 24 Hours (Table) 03/04/24 03/05/24 03/05/24 Range/Units 21:32 05:12 06:18 Potassium 3.0 L (3.5-5.1) mmol/L BUN 20 H (7-17) mg/dL Glucose 345 H (74-99) mg/dL POC Glucose (mg/dL) 184 H 381 H (70-110) mg/dL Calcium 8.1 L (8.4-10.2) mg/dL 03/05/24 Range/Units 11:41 Potassium (3.5-5.1) mmol/L BUN (7-17) mg/dL Glucose (74-99) mg/dL POC Glucose (mg/dL) 360 H (70-110) mg/dL Calcium (8.4-10.2) mg/dL Microbiology - Last 24 Hours (Table) 03/02/24 14:00 Blood Culture Gram Stain - Final Blood Blood Culture - Final Vanda dubliniensis Molecular ID Assessment and Plan (1) Sepsis Current Visit: Yes Status: Acute Code(s): A41.9 - SEPSIS, UNSPECIFIED ORGANISM SNOMED Code(s): 55322512 (2) Fever Current Visit: Yes Status: Acute Code(s): R50.9 - FEVER, UNSPECIFIED SNOMED Code(s): 191874575 Plan: 1patient with sepsis in this patient who did have fever tachycardia mild elevated white count with initial concern for possible jejunostomy tube site infection she did have some distention but no significant redness or drainage was noticed around the jejunostomy tube site patient did have a PICC line through the patient is getting TPN could be the source of this fever and sepsis 2-peripheral blood culture obtained nursing staff was not able to get culture from the PICC line, patient did have a left upper extremity Doppler that was negative for DVT 3-patient did have CT abdominal pelvis with concern for enteritis reflux and possible aspiration pneumonitis 4patient blood cultures came back positive with Vanda possible related to the PICC line which was recently replaced through the same site which would be concerning we will repeat the blood cultures continue with Eraxis Dictation was produced using [employer].comation software. please excuse any grammatical, word or spelling errors. Time with Patient: Less than 30
[2024-03-05 17:01] LABS: Glucose,Whole Blood 191 mg/dL (70-110)
[2024-03-05 20:43] LABS: Glucose,Whole Blood 310 mg/dL (70-110)
[2024-03-06 06:32] LABS: Glucose,Whole Blood 397 mg/dL (70-110)
[2024-03-06 07:06] LABS: African American GFR (CKD) >90 (>60 ml/min/1.73 sqM); Anion Gap 8 mmol/L; Blood Urea Nitrogen 20 mg/dL (7-17); Calcium 7.9 mg/dL (8.4-10.2); Carbon Dioxide 23 mmol/L (22-30); Chloride 105 mmol/L (98-107); Glucose 385 mg/dL (74-99); Magnesium 1.8 mg/dL (1.6-2.3); Non-African American GFR(CKD) >90 (>60 ml/min/1.73 sqM); Potassium 3.5 mmol/L (3.5-5.1); Sodium 136 mmol/L (137-145)
[2024-03-06 07:22] LABS: Phosphorus 2.9 mg/dL (2.5-4.5)
--- NOTE | 2024-03-06 09:49 | P.PN ---
Subjective Progress Note Date: 03/06/24 CHIEF COMPLAINT: Abdominal pain HISTORY OF PRESENT ILLNESS: Patient is tolerating tube feeds. Tube feeds are at 35 mL/h. She reports no increase in abdominal pain. Denies any nausea or vomiting. She is having bowel movements. She is afebrile. Positive blood culture with yeast being followed by infectious disease. Potassium improved from 3.0-3.5 Patient seen and examined with Dr. Sam who is covering for Dr. Garzon PHYSICAL EXAM: VITAL SIGNS: Reviewed. GENERAL: no acute distress. ABDOMEN: Soft. Nondistended. There is minimal bilious drainage noted around J-tube site NEUROLOGIC: Alert and oriented. Cranial nerves II through XII grossly intact. ASSESSMENT: 1. Gastroparesis 2. Ileus 3. Chronic abdominal pain 4. Uncontrolled diabetes mellitus 5. Possible aspiration pneumonia 6. Severe protein calorie malnutrition 7. Leukocytosis 8. Bacteremia with yeast 9. Hypokalemia improved PLAN: -Continue to titrate tube feeds per dietitian recommendations -Advance diet to full liquids for dinner -Continue to apply zinc barrier cream around J-tube site -Continue IV Reglan Physician Pellet Machine Operator note has been reviewed by physician. Signing provider agrees with the documented findings, assessment, and plan of care. Objective - Vital Signs Vital signs: Vital Signs Temp 98.2 F 03/06/24 07:28 Pulse 102 H 03/06/24 07:28 Resp 18 03/06/24 07:28 BP 117/77 03/06/24 07:28 Pulse Ox 97 03/06/24 07:28 FiO2 Intake & Output 03/05/24 03/06/24 03/06/24 18:59 06:59 18:59 Intake Total 480 Balance 480 Weight 25 kg 56 kg Intake: Oral 480 Other: Voiding Method Bedside Commode - Labs CBC & Chem 7: 03/04/24 04:28 03/06/24 06:25 Labs: Abnormal Lab Results - Last 24 Hours (Table) 03/05/24 03/05/24 03/05/24 Range/Units 11:41 16:59 20:42 Sodium (137-145) mmol/L BUN (7-17) mg/dL Glucose (74-99) mg/dL POC Glucose (mg/dL) 360 H 191 H 310 H (70-110) mg/dL Calcium (8.4-10.2) mg/dL 03/06/24 03/06/24 Range/Units 06:25 06:30 Sodium 136 L (137-145) mmol/L BUN 20 H (7-17) mg/dL Glucose 385 H (74-99) mg/dL POC Glucose (mg/dL) 397 H (70-110) mg/dL Calcium 7.9 L (8.4-10.2) mg/dL Microbiology - Last 24 Hours (Table) 03/02/24 14:00 Blood Culture Gram Stain - Final Blood Blood Culture - Final Vanda dubliniensis Molecular ID
[2024-03-06 11:20] LABS: Glucose,Whole Blood 217 mg/dL (70-110)
--- NOTE | 2024-03-06 14:47 | P.PN ---
Subjective Progress Note Date: 03/06/24 Principal diagnosis: Reason for follow-up is fever concern for possible PICC infection Patient is a 54-year-old female with multiple comorbidities including diabetes mellitus hypertension diabetic gastroparesis and did have a jejunostomy tube placement on January 15, 2024, patient also have a double-lumen PICC line placement to the left upper arm about a month ago for TPN has developed fever prompting this consultation. On today's evaluation that is 03/06/2024, the patient continues to be afebrile, the patient is on room air and breathing comfortably, the Pt denies having any chest pain or cough, the patient has been complaining of some nausea but no vomiting abdominal pain has improved still having some diarrhea. The patient did have a creatinine 0.74 no CBC was done today blood culture repeated currently pending Objective - Vital Signs Vital signs: Vital Signs Temp 98.2 F 03/06/24 07:28 Pulse 102 H 03/06/24 07:28 Resp 18 03/06/24 07:28 BP 117/77 03/06/24 07:28 Pulse Ox 97 03/06/24 07:28 FiO2 Intake & Output 03/05/24 03/06/24 03/06/24 18:59 06:59 18:59 Intake Total 480 Balance 480 Weight 25 kg 56 kg 56 kg Intake: Oral 480 Other: Voiding Method Bedside Commode - Exam GENERAL DESCRIPTION: Middle-age female lying in bed in no distress RESPIRATORY SYSTEM: Unlabored breathing , decreased breath sounds at bases HEART: S1 S2 regular rate and rhythm , ABDOMEN: Soft , no tenderness EXTREMITIES: No edema feet - Labs CBC & Chem 7: 03/04/24 04:28 03/06/24 06:25 Labs: Abnormal Lab Results - Last 24 Hours (Table) 03/05/24 03/05/24 03/06/24 Range/Units 16:59 20:42 06:25 Sodium 136 L (137-145) mmol/L BUN 20 H (7-17) mg/dL Glucose 385 H (74-99) mg/dL POC Glucose (mg/dL) 191 H 310 H (70-110) mg/dL Calcium 7.9 L (8.4-10.2) mg/dL 03/06/24 03/06/24 Range/Units 06:30 11:19 Sodium (137-145) mmol/L BUN (7-17) mg/dL Glucose (74-99) mg/dL POC Glucose (mg/dL) 397 H 217 H (70-110) mg/dL Calcium (8.4-10.2) mg/dL Microbiology - Last 24 Hours (Table) 03/02/24 14:00 Blood Culture Gram Stain - Final Blood Blood Culture - Final Vanda dubliniensis Molecular ID Assessment and Plan (1) Sepsis Current Visit: Yes Status: Acute Code(s): A41.9 - SEPSIS, UNSPECIFIED ORGANISM SNOMED Code(s): 20575296 (2) Fever Current Visit: Yes Status: Acute Code(s): R50.9 - FEVER, UNSPECIFIED SNOMED Code(s): 681342921 Plan: 1patient with sepsis in this patient who did have fever tachycardia mild elevated white count with initial concern for possible jejunostomy tube site infection she did have some distention but no significant redness or drainage was noticed around the jejunostomy tube site patient did have a PICC line t hrough the patient is getting TPN could be the source of this fever and sepsis 2-peripheral blood culture obtained nursing staff was not able to get culture from the PICC line, patient did have a left upper extremity Doppler that was negative for DVT 3-patient did have CT abdominal pelvis with concern for enteritis reflux and possible aspiration pneumonitis 4patient blood cultures came back positive with Vanda possible related to the PICC line which was recently replaced, blood culture has been repeated and will continue with Eraxis monitor clinical course closely Dictation was produced using [employer] dictation software. please excuse any grammatical, word or spelling errors. Time with Patient: Less than 30
[2024-03-06 16:54] LABS: Glucose,Whole Blood 188 mg/dL (70-110)
[2024-03-06 20:17] LABS: Glucose,Whole Blood 261 mg/dL (70-110)
[2024-03-07 02:31] LABS: Glucose,Whole Blood 336 mg/dL (70-110)
[2024-03-07 06:11] LABS: Glucose,Whole Blood 371 mg/dL (70-110)
[2024-03-07 06:17] LABS: African American GFR (CKD) >90 (>60 ml/min/1.73 sqM); Anion Gap 4 mmol/L; Blood Urea Nitrogen 20 mg/dL (7-17); Calcium 8.4 mg/dL (8.4-10.2); Carbon Dioxide 18 mmol/L (22-30); Chloride 109 mmol/L (98-107); Glucose 381 mg/dL (74-99); Non-African American GFR(CKD) >90 (>60 ml/min/1.73 sqM); Phosphorus 2.2 mg/dL (2.5-4.5); Potassium 3.5 mmol/L (3.5-5.1); Sodium 131 mmol/L (137-145)
[2024-03-07 09:18] LABS: Basophils # (A) 0.06 X 10*3/uL (0.00-0.10); Basophils % (A) 0.5 %; Eosinophils # (A) 0.22 X 10*3/uL (0.04-0.35); Eosinophils % (A) 1.8 %; HCT 28.2 % (37.2-46.3); HGB 8.5 g/dL (12.0-15.0); Lymphocytes % (A) 12.9 %; MCH 28.6 pg (27.0-32.0); MCHC 30.1 g/dL (32.0-37.0); MCV 94.9 FL (80.0-97.0); Mean Platelet Volume 9.7 FL (9.5-12.2); Monocytes # (A) 0.85 X 10*3/uL (0.20-1.00); Monocytes % (A) 6.9 %; NRBC Per 100 WBC 0 X 10*3/uL (0.00-0.01); Neutrophils # (A) 9.56 X 10*3/uL (1.80-7.70); Neutrophils % (A) 77.3 %; Platelet Count 517 X 10*3/uL (140-440); RBC 2.97 X 10*6/uL (4.10-5.20); RDW 15.9 % (11.5-14.5); WBC 12.37 X 10*3/uL (4.50-10.00)
[2024-03-07 12:06] LABS: Glucose,Whole Blood 264 mg/dL (70-110)
--- NOTE | 2024-03-07 15:35 | P.PN ---
Subjective Progress Note Date: 03/07/24 CHIEF COMPLAINT: Gastroparesis HISTORY OF PRESENT ILLNESS: The patient is a 54-year-old female with ga stroparesis and underweight. She has a gastrojejunostomy tube. She is tolerating full liquids and requesting soft food diet. At this time, she denies any moderate abdominal pain and eager to advance her diet. ROS: No reports of nausea and vomiting. No bowel movements. No fevers or chills. No new chest pain. No productive sputum PHYSICAL EXAM: VITAL SIGNS: Reviewed CONSTITUTIONAL: Well developed and in no acute distress. EYES: Conjuctivae without sclera icterus. Extraocular movements grossly intact. HEAD, EARS, NOSE, THROAT: Moist buccal mucosa. Head is atraumatic, normocephalic. Hears conversational speech. No nasal drainage. RESPIRATORY: Non-labored respirations and equal bilateral excursions. CARDIOVASCULAR: Palpable 2+ radial pulses. ABDOMEN: No peritonitis MUSCULOSKELETAL: No gross deformity of the lower extremities noted. No clubbing. No cyanosis. SKIN: Good skin turgor. Well perfused. NEUROLOGIC: Cranial nerves II through XII grossly intact. No focal or lat eralizing signs. PSYCH: Appropriate affect. Alert and oriented to person, place and time. CLINICAL LABS: Reviewed. WBC trending downward from 15,000 and 12,000 ASSESSMENT: 1. Gastroparesis 2. Underweight, BMI 18.1 PLAN: 1. Will advance diet to low fiber diet for trial Objective - Vital Signs Vital signs: Vital Signs Temp 98.7 F 03/07/24 14:35 Pulse 103 H 03/07/24 14:35 Resp 18 03/07/24 14:35 BP 134/81 03/07/24 14:35 Pulse Ox 97 03/07/24 14:35 FiO2 Intake & Output 03/06/24 03/07/24 03/07/24 18:59 06:59 18:59 Weight 35.1 kg 40.6 kg Other: Voiding Method Bedside Commode # Voids 2 3 - Labs CBC & Chem 7: 03/07/24 05:31 03/07/24 05:31 Labs: Abnormal Lab Results - Last 24 Hours (Table) 03/06/24 03/06/24 03/07/24 Range/Units 16:52 20:15 02:28 WBC (4.50-10.00) X 10*3/uL RBC (4.10-5.20) X 10*6/uL Hgb (12.0-15.0) g/dL Hct (37.2-46.3) % MCHC (32.0-37.0) g/dL RDW (11.5-14.5) % Plt Count (140-440) X 10*3/uL Immature Gran # (0.00-0.04) X 10*3/uL Neutrophils # (1.80-7.70) X 10*3/uL Sodium (137-145) mmol/L Chloride (98-107) mmol/L Carbon Dioxide (22-30) mmol/L BUN (7-17) mg/dL Glucose (74-99) mg/dL POC Glucose (mg/dL) 188 H 261 H 336 H (70-110) mg/dL Phosphorus (2.5-4.5) mg/dL 03/07/24 03/07/24 03/07/24 Range/Units 05:31 05:31 06:09 WBC 12.37 H (4.50-10.00) X 10*3/uL RBC 2.97 L (4.10-5.20) X 10*6/uL Hgb 8.5 L (12.0-15.0) g/dL Hct 28.2 L (37.2-46.3) % MCHC 30.1 L (32.0-37.0) g/dL RDW 15.9 H (11.5-14.5) % Plt Count 517 H (140-440) X 10*3/uL Immature Gran # 0.08 H (0.00-0.04) X 10*3/uL Neutrophils # 9.56 H (1.80-7.70) X 10*3/uL Sodium 131 L (137-145) mmol/L Chloride 109 H (98-107) mmol/L Carbon Dioxide 18 L (22-30) mmol/L BUN 20 H (7-17) mg/dL Glucose 381 H (74-99) mg/dL POC Glucose (mg/dL) 371 H (70-110) mg/dL Phosphorus 2.2 L (2.5-4.5) mg/dL 03/07/24 Range/Units 12:04 WBC (4.50-10.00) X 10*3/uL RBC (4.10-5.20) X 10*6/uL Hgb (12.0-15.0) g/dL Hct (37.2-46.3) % MCHC (32.0-37.0) g/dL RDW (11.5-14.5) % Plt Count (140-440) X 10*3/uL Immature Gran # (0.00-0.04) X 10*3/uL Neutrophils # (1.80-7.70) X 10*3/uL Sodium (137-145) mmol/L Chloride (98-107) mmol/L Carbon Dioxide (22-30) mmol/L BUN (7-17) mg/dL Glucose (74-99) mg/dL POC Glucose (mg/dL) 264 H (70-110) mg/dL Phosphorus (2.5-4.5) mg/dL Microbiology - Last 24 Hours (Table) 03/05/24 16:17 Blood Culture - Preliminary Blood
--- NOTE | 2024-03-07 15:50 | P.PN ---
Subjective Progress Note Date: 03/07/24 Principal diagnosis: Reason for follow-up is fever concern for possible PICC infection Patient is a 54-year-old female with multiple comorbidities including diabetes mellitus hypertension diabetic gastroparesis and did have a jejunostomy tube placement on January 15, 2024, patient also have a double-lumen PICC line placement to the left upper arm about a month ago for TPN has developed fever prompting this consultation. On today's evaluation that is 03/07/2024, Patient is afebrile patient is currently on room air and denies having any shortness of breath, the patient denies any chest pain or cough, the patient denies any nausea vomiting abdominal pain is currently controlled patient mention she is feeling hungry would like to eat. Patient white count is down to 12.37, creatinine 0.74 blood culture repeat currently pending Objective - Vital Signs Vital signs: Vital Signs Temp 98.7 F 03/07/24 14:35 Pulse 103 H 03/07/24 14:35 Resp 18 03/07/24 14:35 BP 134/81 03/07/24 14:35 Pulse Ox 97 03/07/24 14:35 FiO2 Intake & Output 03/06/24 03/07/24 03/07/24 18:59 06:59 18:59 Weight 35.1 kg 40.6 kg Other: Voiding Method Bedside Commode # Voids 2 3 - Exam GENERAL DESCRIPTION: Middle-age female lying in bed in no distress RESPIRATORY SYSTEM: Unlabored breathing , decreased breath sounds at bases HEART: S1 S2 regular rate and rhythm , ABDOMEN: Soft , no tenderness EXTREMITIES: No edema feet - Labs CBC & Chem 7: 03/07/24 05:31 03/07/24 05:31 Labs: Abnormal Lab Results - Last 24 Hours (Table) 03/06/24 03/06/24 03/07/24 Range/Units 16:52 20:15 02:28 WBC (4.50-10.00) X 10*3/uL RBC (4.10-5.20) X 10*6/uL Hgb (12.0-15.0) g/dL Hct (37.2-46.3) % MCHC (32.0-37.0) g/dL RDW (11.5-14.5) % Plt Count (140-440) X 10*3/uL Immature Gran # (0.00-0.04) X 10*3/uL Neutrophils # (1.80-7.70) X 10*3/uL Sodium (137-145) mmol/L Chloride (98-107) mmol/L Carbon Dioxide (22-30) mmol/L BUN (7-17) mg/dL Glucose (74-99) mg/dL POC Glucose (mg/dL) 188 H 261 H 336 H (70-110) mg/dL Phosphorus (2.5-4.5) mg/dL 03/07/24 03/07/24 03/07/24 Range/Units 05:31 05:31 06:09 WBC 12.37 H (4.50-10.00) X 10*3/uL RBC 2.97 L (4.10-5.20) X 10*6/uL Hgb 8.5 L (12.0-15.0) g/dL Hct 28.2 L (37.2-46.3) % MCHC 30.1 L (32.0-37.0) g/dL RDW 15.9 H (11.5-14.5) % Plt Count 517 H (140-440) X 10*3/uL Immature Gran # 0.08 H (0.00-0.04) X 10*3/uL Neutrophils # 9.56 H (1.80-7.70) X 10*3/uL Sodium 131 L (137-145) mmol/L Chloride 109 H (98-107) mmol/L Carbon Dioxide 18 L (22-30) mmol/L BUN 20 H (7-17) mg/dL Glucose 381 H (74-99) mg/dL POC Glucose (mg/dL) 371 H (70-110) mg/dL Phosphorus 2.2 L (2.5-4.5) mg/dL 03/07/24 Range/Units 12:04 WBC (4.50-10.00) X 10*3/uL RBC (4.10-5.20) X 10*6/uL Hgb (12.0-15.0) g/dL Hct (37.2-46.3) % MCHC (32.0-37.0) g/dL RDW (11.5-14.5) % Plt Count (140-440) X 10*3/uL Immature Gran # (0.00-0.04) X 10*3/uL Neutrophils # (1.80-7.70) X 10*3/uL Sodium (137-145) mmol/L Chloride (98-107) mmol/L Carbon Dioxide (22-30) mmol/L BUN (7-17) mg/dL Glucose (74-99) mg/dL POC Glucose (mg/dL) 264 H (70-110) mg/dL Phosphorus (2.5-4.5) mg/dL Microbiology - Last 24 Hours (Table) 03/05/24 16:17 Blood Culture - Preliminary Blood Assessment and Plan (1) Sepsis Current Visit: Yes Status: Acute Code(s): A41.9 - SEPSIS, UNSPECIFIED ORGANISM SNOMED Code(s): 26578820 (2) Fever Current Visit: Yes Status: Acute Code(s): R50.9 - FEVER, UNSPECIFIED SNOMED Code(s): 157087916 Plan: 1patient with sepsis in this patient who did have fever tachycardia mild elevated white count with initial concern for possible jejunostomy tube site infection she did have some distention but no significant redness or drainage was noticed around the jejunostomy tube site patient did have a PICC line through the patient is getting TPN could be the source of this fever and sepsis 2-peripheral blood culture obtained nursing staff was not able to get culture from the PICC line, patient did have a left upper extremity Doppler that was negative for DVT 3-patient did have CT abdominal pelvis with concern for enteritis reflux and possible aspiration pneumonitis 4patient blood cultures came back positive with Vanda possible related to the PICC line which was recently replaced, repeat blood cultures currently pending the patient white count is trending down continue with Eraxis and monitor clinical course closely Dictation was produced using [employer] dictation software. please excuse any grammatical, word or spelling errors. Time with Patient: Less than 30
[2024-03-07 17:25] LABS: Glucose,Whole Blood 133 mg/dL (70-110)
[2024-03-07 21:25] LABS: Glucose,Whole Blood 239 mg/dL (70-110)
--- NOTE | 2024-03-07 22:10 | PN ---
PROGRESS NOTE SUBJECTIVE: Lesa Patterson with possible PICC line infection. She has yeast in her blood. Repeat blood cultures are negative and are pending. OBJECTIVE: VITAL SIGNS: Blood pressure is 117/77, O2 97, pulse 102, respiratory rate 16 to 18, and temperature 98.2. CARDIOVASCULAR: S1 and S2. LUNGS: Transmitted upper sounds. GI: Soft. HEMATOLOGY: Negative Homans. PSYCH: Fair mood and affect. LABORATORY DATA: White count 15 and hemoglobin 7.5. ASSESSMENT: Acute on chronic anemia, sepsis, fevers, possible jejunitis, possible aspiration pneumonia. She has been treated on antibiotics. Treat for Vanda in the blood stream. Eraxis is being treated for this. Continue current treatment. Prognosis guarded. Ambulate as tolerated. MMODL / IJN: [id number] /
[2024-03-08 02:21] LABS: Glucose,Whole Blood 230 mg/dL (70-110)
[2024-03-08 06:03] LABS: African American GFR (CKD) >90 (>60 ml/min/1.73 sqM); Anion Gap 7 mmol/L; Blood Urea Nitrogen 15 mg/dL (7-17); Calcium 7.5 mg/dL (8.4-10.2); Carbon Dioxide 19 mmol/L (22-30); Chloride 113 mmol/L (98-107); Glucose 250 mg/dL (74-99); Magnesium 1.8 mg/dL (1.6-2.3); Non-African American GFR(CKD) >90 (>60 ml/min/1.73 sqM); Phosphorus 2.1 mg/dL (2.5-4.5); Sodium 139 mmol/L (137-145)
[2024-03-08 06:09] LABS: Glucose,Whole Blood 299 mg/dL (70-110)
[2024-03-08 10:04] LABS: Basophils # (A) 0.05 X 10*3/uL (0.00-0.10); Basophils % (A) 0.4 %; Eosinophils # (A) 0.24 X 10*3/uL (0.04-0.35); HCT 25.4 % (37.2-46.3); HGB 7.7 g/dL (12.0-15.0); Lymphocytes # (A) 1.88 X 10*3/uL (0.90-5.00); MCH 27.8 pg (27.0-32.0); MCHC 30.3 g/dL (32.0-37.0); MCV 91.7 FL (80.0-97.0); Mean Platelet Volume 9.5 FL (9.5-12.2); Monocytes # (A) 0.87 X 10*3/uL (0.20-1.00); Monocytes % (A) 7.4 %; NRBC Per 100 WBC 0 X 10*3/uL (0.00-0.01); Neutrophils # (A) 8.67 X 10*3/uL (1.80-7.70); Neutrophils % (A) 73.6 %; Platelet Count 487 X 10*3/uL (140-440); RBC 2.77 X 10*6/uL (4.10-5.20); RDW 16.2 % (11.5-14.5); WBC 11.78 X 10*3/uL (4.50-10.00)
[2024-03-08 10:06] LABS: ALT 48 U/L (8-44); AST 57 U/L (13-35); Albumin 2.2 g/dL (3.8-4.9); Albumin/Globulin Ratio 0.65 Ratio (1.60-3.17); Alkaline Phosphatase 136 U/L (41-126); Blood Urea Nitrogen 14.8 mg/dL (9.0-27.0); Calcium 7.4 mg/dL (8.7-10.3); Carbon Dioxide 19.4 mmol/L (21.6-31.8); Chloride 110 mmol/L (96-109); Globulin 3.4 g/dL (1.6-3.3); Glucose 260 mg/dL (70-110); Potassium 4.1 mmol/L (3.5-5.5); Sodium 139 mmol/L (135-145); Total Bilirubin <0.2 mg/dL (0.3-1.2); Total Protein 5.6 g/dL (6.2-8.2)
[2024-03-08 12:12] LABS: Glucose,Whole Blood 193 mg/dL (70-110)
--- NOTE | 2024-03-08 15:30 | P.PN ---
Subjective Progress Note Date: 03/08/24 Principal diagnosis: WBC trending downward. She tolerated meatloaf including low fiber diet. Overall doing well. Stable for discharge from a surgical standpoint in 24 hours. Objective - Vital Signs Vital signs: Vital Signs Temp 98.4 F 03/08/24 14:11 Pulse 101 H 03/08/24 14:11 Resp 17 03/08/24 14:11 BP 135/81 03/08/24 14:11 Pulse Ox 97 03/08/24 14:11 FiO2 Intake & Output 03/07/24 03/08/24 03/08/24 18:59 06:59 18:59 Weight 36.5 kg Other: Voiding Method Bedside Commode # Voids 3 8 1 # Bowel Movements 5 2 - Labs CBC & Chem 7: 03/08/24 04:59 03/08/24 04:59 Labs: Abnormal Lab Results - Last 24 Hours (Table) 03/07/24 03/07/24 03/08/24 Range/Units 17: 21:23 02:19 WBC (4.50-10.00) X 10*3/uL RBC (4.10-5.20) X 10*6/uL Hgb (12.0-15.0) g/dL Hct (37.2-46.3) % MCHC (32.0-37.0) g/dL RDW (11.5-14.5) % Plt Count (140-440) X 10*3/uL Immature Gran # (0.00-0.04) X 10*3/uL Neutrophils # (1.80-7.70) X 10*3/uL Chloride (96-109) mmol/L Carbon Dioxide (21.6-31.8) mmol/L Glucose (70-110) mg/dL POC Glucose (mg/dL) 133 H 239 H 230 H (70-110) mg/dL Calcium (8.7-10.3) mg/dL Phosphorus (2.5-4.5) mg/dL Total Bilirubin (0.3-1.2) mg/dL AST (13-35) U/L ALT (8-44) U/L Alkaline Phosphatase (41-126) U/L Total Protein (6.2-8.2) g/dL Albumin (3.8-4.9) g/dL Globulin (1.6-3.3) g/dL Albumin/Globulin Ratio (1.60-3.17) Ratio 03/08/24 03/08/24 03/08/24 Range/Units 04:59 04:59 04:59 WBC 11.78 H (4.50-10.00) X 10*3/uL RBC 2.77 L (4.10-5.20) X 10*6/uL Hgb 7.7 L (12.0-15.0) g/dL Hct 25.4 L (37.2-46.3) % MCHC 30.3 L (32.0-37.0) g/dL RDW 16.2 H (11.5-14.5) % Plt Count 487 H (140-440) X 10*3/uL Immature Gran # 0.07 H (0.00-0.04) X 10*3/uL Neutrophils # 8.67 H (1.80-7.70) X 10*3/uL Chloride 110 H 113 H (96-109) mmol/L Carbon Dioxide 19.4 L 19 L (21.6-31.8) mmol/L Glucose 260 H 250 H (70-110) mg/dL POC Glucose (mg/dL) (70-110) mg/dL Calcium 7.4 L 7.5 L (8.7-10.3) mg/dL Phosphorus 2.1 L (2.5-4.5) mg/dL Total Bilirubin <0.2 L (0.3-1.2) mg/dL AST 57 H (13-35) U/L ALT 48 H (8-44) U/L Alkaline Phosphatase 136 H (41-126) U/L Total Protein 5.6 L (6.2-8.2) g/dL Albumin 2.2 L (3.8-4.9) g/dL Globulin 3.4 H (1.6-3.3) g/dL Albumin/Globulin Ratio 0.65 L (1.60-3.17) Ratio 03/08/24 03/08/24 Range/Units 06:07 12:07 WBC (4.50-10.00) X 10*3/uL RBC (4.10-5.20) X 10*6/uL Hgb (12.0-15.0) g/dL Hct (37.2-46.3) % MCHC (32.0-37.0) g/dL RDW (11.5-14.5) % Plt Count (140-440) X 10*3/uL Immature Gran # (0.00-0.04) X 10*3/uL Neutrophils # (1.80-7.70) X 10*3/uL Chloride (96-109) mmol/L Carbon Dioxide (21.6-31.8) mmol/L Glucose (70-110) mg/dL POC Glucose (mg/dL) 299 H 193 H (70-110) mg/dL Calcium (8.7-10.3) mg/dL Phosphorus (2.5-4.5) mg/dL Total Bilirubin (0.3-1.2) mg/dL AST (13-35) U/L ALT (8-44) U/L Alkaline Phosphatase (41-126) U/L Total Protein (6.2-8.2) g/dL Albumin (3.8-4.9) g/dL Globulin (1.6-3.3) g/dL Albumin/Globulin Ratio (1.60-3.17) Ratio Microbiology - Last 24 Hours (Table) 03/05/24 16:17 Blood Culture - Preliminary Blood 03/06/24 15:49 Blood Culture - Preliminary Blood
--- NOTE | 2024-03-08 16:25 | P.PN ---
Subjective Progress Note Date: 03/08/24 Principal diagnosis: Reason for follow-up is fever concern for possible PICC infection Patient is a 54-year-old female with multiple comorbidities including diabetes mellitus hypertension diabetic gastroparesis and did have a jejunostomy tube placement on January 15, 2024, patient also have a double-lumen PICC line placement to the left upper arm about a month ago for TPN has developed fever prompting this consultation. On today's evaluation that is 03/08/2024, patient has been afebrile, patient is breathing comfortably and is currently on room air, patient denies having any significant cough no chest pain shortness of breath, patient denies nausea vomiting or diarrhea and no abdominal pain, mention feeling better tolerating her diet. Patient white count is down to 11.78, creatinine 0.74 blood culture repeat has been negative so far Objective - Vital Signs Vital signs: Vital Signs Temp 98.4 F 03/08/24 14:11 Pulse 101 H 03/08/24 14:11 Resp 17 03/08/24 14:11 BP 135/81 03/08/24 14:11 Pulse Ox 97 03/08/24 14:11 FiO2 Intake & Output 03/07/24 03/08/24 03/08/24 18:59 06:59 18:59 Weight 36.5 kg Other: Voiding Method Bedside Commode # Voids 3 8 1 # Bowel Movements 5 2 - Exam GENERAL DESCRIPTION: Middle-age female lying in bed in no distress RESPIRATORY SYSTEM: Unlabored breathing , decreased breath sounds at bases HEART: S1 S2 regular rate and rhythm , ABDOMEN: Soft , no tenderness EXTREMITIES: No edema feet - Labs CBC & Chem 7: 03/08/24 04:59 03/08/24 04:59 Labs: Abnormal Lab Results - Last 24 Hours (Table) 03/07/24 03/07/24 03/08/24 Range/Units 17:22 21:23 02:19 WBC (4.50-10.00) X 10*3/uL RBC (4.10-5.20) X 10*6/uL Hgb (12.0-15.0) g/dL Hct (37.2-46.3) % MCHC (32.0-37.0) g/dL RDW (11.5-14.5) % Plt Count (140-440) X 10*3/uL Immature Gran # (0.00-0.04) X 10*3/uL Neutrophils # (1.80-7.70) X 10*3/uL Chloride (96-109) mmol/L Carbon Dioxide (21.6-31.8) mmol/L Glucose (70-110) mg/dL POC Glucose (mg/dL) 133 H 239 H 230 H (70-110) mg/dL Calcium (8.7-10.3) mg/dL Phosphorus (2.5-4.5) mg/dL Total Bilirubin (0.3-1.2) mg/dL AST (13-35) U/L ALT (8-44) U/L Alkaline Phosphatase (41-126) U/L Total Protein (6.2-8.2) g/dL Albumin (3.8-4.9) g/dL Globulin (1.6-3.3) g/dL Albumin/Globulin Ratio (1.60-3.17) Ratio 03/08/24 03/08/24 03/08/24 Range/Units 04:59 04:59 04:59 WBC 11.78 H (4.50-10.00) X 10*3/uL RBC 2.77 L (4.10-5.20) X 10*6/uL Hgb 7.7 L (12.0-15.0) g/dL Hct 25.4 L (37.2-46.3) % MCHC 30.3 L (32.0-37.0) g/dL RDW 16.2 H (11.5-14.5) % Plt Count 487 H (140-440) X 10*3/uL Immature Gran # 0.07 H (0.00-0.04) X 10*3/uL Neutrophils # 8.67 H (1.80-7.70) X 10*3/uL Chloride 110 H 113 H (96-109) mmol/L Carbon Dioxide 19.4 L 19 L (21.6-31.8) mmol/L Glucose 260 H 250 H (70-110) mg/dL POC Glucose (mg/dL) (70-110) mg/dL Calcium 7.4 L 7.5 L (8.7-10.3) mg/dL Phosphorus 2.1 L (2.5-4.5) mg/dL Total Bilirubin <0.2 L (0.3-1.2) mg/dL AST 57 H (13-35) U/L ALT 48 H (8-44) U/L Alkaline Phosphatase 136 H (41-126) U/L Total Protein 5.6 L (6.2-8.2) g/dL Albumin 2.2 L (3.8-4.9) g/dL Globulin 3.4 H (1.6-3.3) g/dL Albumin/Globulin Ratio 0.65 L (1.60-3.17) Ratio 03/08/24 03/08/24 Range/Units 06:07 12:07 WBC (4.50-10.00) X 10*3/uL RBC (4.10-5.20) X 10*6/uL Hgb (12.0-15.0) g/dL Hct (37.2-46.3) % MCHC (32.0-37.0) g/dL RDW (11.5-14.5) % Plt Count (140-440) X 10*3/uL Immature Gran # (0.00-0.04) X 10*3/uL Neutrophils # (1.80-7.70) X 10*3/uL Chloride (96-109) mmol/L Carbon Dioxide (21.6-31.8) mmol/L Glucose (70-110) mg/dL POC Glucose (mg/dL) 299 H 193 H (70-110) mg/dL Calcium (8.7-10.3) mg/dL Phosphorus (2.5-4.5) mg/dL Total Bilirubin (0.3-1.2) mg/dL AST (13-35) U/L ALT (8-44) U/L Alkaline Phosphatase (41-126) U/L Total Protein (6.2-8.2) g/dL Albumin (3.8-4.9) g/dL Globulin (1.6-3.3) g/dL Albumin/Globulin Ratio (1.60-3.17) Ratio Microbiology - Last 24 Hours (Table) 03/05/24 16:17 Blood Culture - Preliminary Blood 03/06/24 15:49 Blood Culture - Preliminary Blood Assessment and Plan (1) Sepsis Current Visit: Yes Status: Acute Code(s): A41.9 - SEPSIS, UNSPECIFIED ORGANISM SNOMED Code(s): 87707133 (2) Fever Current Visit: Yes Status: Acute Code(s): R50.9 - FEVER, UNSPECIFIED SNOMED Code(s): 334421142 Plan: 1patient with sepsis in this patient who did have fever tachycardia mild elevated white count with initial concern for possible jejunostomy tube site infection she did have some distention but no significant redness or drainage was noticed around the jejunostomy tube site patient did have a PICC line throu gh the patient is getting TPN could be the source of this fever and sepsis 2-peripheral blood culture obtained nursing staff was not able to get culture from the PICC line, patient did have a left upper extremity Doppler that was negative for DVT 3-patient did have CT abdominal pelvis with concern for enteritis reflux and possible aspiration pneumonitis 4patient blood cultures came back positive with Vanda possible related to the PICC line which was recently replaced, repeat blood cultures so far negative and the patient white count is trending down continue with Eraxis and monitor clinical course closely Dictation was produced using [employer] dictation software. please excuse any grammatical, word or spelling errors. Time with Patient: Less than 30
[2024-03-08] MEDS: ARTIFICIAL TEARS-HYPROMELLOSE DROPS 15 ML BTL BOTH EYES PRN (16:40)
[2024-03-08 16:57] LABS: Glucose,Whole Blood 130 mg/dL (70-110)
[2024-03-08 21:31] LABS: Glucose,Whole Blood 209 mg/dL (70-110)
[2024-03-08] MEDS: HYDROmorphone 0.5 MG/0.5 ML SYRINGE IVP PRN (21:31)
[2024-03-09 01:16] LABS: Glucose,Whole Blood 228 mg/dL (70-110)
[2024-03-09 06:38] LABS: African American GFR (CKD) >90 (>60 ml/min/1.73 sqM); Anion Gap 4 mmol/L; Blood Urea Nitrogen 12 mg/dL (7-17); Calcium 7.6 mg/dL (8.4-10.2); Carbon Dioxide 17 mmol/L (22-30); Chloride 115 mmol/L (98-107); Glucose 326 mg/dL (74-99); Magnesium 1.7 mg/dL (1.6-2.3); Non-African American GFR(CKD) 89 (>60 ml/min/1.73 sqM); Phosphorus 2.1 mg/dL (2.5-4.5); Potassium 4.5 mmol/L (3.5-5.1); Sodium 136 mmol/L (137-145)
[2024-03-09 06:39] LABS: Glucose,Whole Blood 331 mg/dL (70-110)
[2024-03-09 11:20] VITALS: BMI 17.8
[2024-03-09 12:04] LABS: Glucose,Whole Blood 278 mg/dL (70-110)
--- NOTE | 2024-03-09 12:32 | P.PN ---
Subjective Progress Note Date: 03/09/24 CHIEF COMPLAINT: Abdominal pain HISTORY OF PRESENT ILLNESS: Patient is feeling better. She wants to be d ischarged. She is tolerating tube feeds at 42 mL an hour. She is also tolerating the low fiber diet. She reports no new pain. Denies any nausea or vomiting. She reports bowel movements. Afebrile. Mildly tachycardic which is chronic. Patient reports a decrease drainage around the J-tube site. PHYSICAL EXAM: VITAL SIGNS: Reviewed. GENERAL: no acute distress. ABDOMEN: Soft. Nondistended. J-tube site dressing currently clean dry and intact NEUROLOGIC: Alert and oriented. Cranial nerves II through XII grossly intact. ASSESSMENT: 1. Gastroparesis 2. Ileus 3. Chronic abdominal pain 4. Uncontrolled diabetes mellitus 5. Possible aspiration pneumonia 6. Severe protein calorie malnutrition 7. Leukocytosis 8. Bacteremia with yeast 9. Hypokalemia improved PLAN: -Patient can be discharge from surgical standpoint when medically cleared -Continue tube feeds -Continue low fiber diet -Continue zinc barrier cream around J-tube Physician School Office Assistant note has been reviewed by physician. Signing provider agrees with the documented findings, assessment, and plan of care. Objective - Vital Signs Vital signs: Vital Signs Temp 99 F 03/09/24 07:22 Pulse 103 H 03/09/24 08:00 Resp 16 03/09/24 08:00 BP 130/78 03/09/24 07:22 Pulse Ox 94 L 03/09/24 07:22 FiO2 Intake & Output 03/08/24 03/09/24 03/09/24 18:59 06:59 18:59 Weight 40 kg 40 kg Other: Voiding Method Bedside Commode # Voids 2 1 # Bowel Movements 1 1 - Labs CBC & Chem 7: 03/08/24 04:59 03/09/24 05:43 Labs: Abnormal Lab Results - Last 24 Hours (Table) 03/08/24 03/08/24 03/09/24 Range/Units 16:55 21:29 01:14 Sodium (137-145) mmol/L Chloride (98-107) mmol/L Carbon Dioxide (22-30) mmol/L Glucose (74-99) mg/dL POC Glucose (mg/dL) 130 H 209 H 228 H (70-110) mg/dL Calcium (8.4-10.2) mg/dL Phosphorus (2.5-4.5) mg/dL 03/09/24 03/09/24 03/09/24 Range/Units 05:43 06:38 12:02 Sodium 136 L (137-145) mmol/L Chloride 115 H (98-107) mmol/L Carbon Dioxide 17 L (22-30) mmol/L Glucose 326 H (74-99) mg/dL POC Glucose (mg/dL) 331 H 278 H (70-110) mg/dL Calcium 7.6 L (8.4-10.2) mg/dL Phosphorus 2.1 L (2.5-4.5) mg/dL Microbiology - Last 24 Hours (Table) 03/05/24 16:17 Blood Culture - Preliminary Blood 03/06/24 15:49 Blood Culture - Preliminary Blood
[2024-03-09 16:35] LABS: Glucose,Whole Blood 339 mg/dL (70-110)
[2024-03-09 20:27] LABS: Glucose,Whole Blood 276 mg/dL (70-110)
[2024-03-10 02:04] LABS: Glucose,Whole Blood 167 mg/dL (70-110)
[2024-03-10 05:38] LABS: Glucose,Whole Blood 296 mg/dL (70-110)
[2024-03-10 11:24] LABS: Glucose,Whole Blood 250 mg/dL (70-110)
--- NOTE | 2024-03-10 12:20 | P.PN ---
Subjective Progress Note Date: 03/10/24 CHIEF COMPLAINT: Abdominal pain HISTORY OF PRESENT ILLNESS: Patient complaining of abdominal pain and nausea this morning. She did feel better after the Zofran. She is having flatus and bowel movements. Tube feeds are at 42 mL/h. She did not want to eat her breakfast this morning. Afebrile. PHYSICAL EXAM: VITAL SIGNS: Reviewed. GENERAL: no acute distress. ABDOMEN: Soft. Nondistended. Mild diffuse tendernessJ-tube site dressing currently clean dry and intact NEUROLOGIC: Alert and oriented. Cranial nerves II through XII grossly intact. ASSESSMENT: 1. Gastroparesis 2. Ileus 3. Chronic abdominal pain 4. Uncontrolled diabetes mellitus 5. Possible aspiration pneumonia 6. Severe protein calorie malnutrition 7. Leukocytosis 8. Bacteremia with yeast PLAN: -Educated patient to go slow with eating food due to her gastroparesis -Continue Reglan -Continue tube feeds -Continue low fiber diet -Continue zinc barrier cream around J-tube Physician Lead Neurodiagnostic Technologist note has been reviewed by physician. Signing provider agrees with the documented findings, assessment, and plan of care. Objective - Vital Signs Vital signs: Vital Signs Temp 98.6 F 03/10/24 07:46 Pulse 99 03/10/24 07:46 Resp 18 03/10/24 07:46 BP 121/75 03/10/24 07:46 Pulse Ox 96 03/10/24 00:55 FiO2 Intake & Output 03/09/24 03/10/24 03/10/24 18:59 06:59 18:59 Intake Total 420 Balance 420 Weight 40 kg 41.6 kg Intake: Tube Feeding 420 Other: Voiding Method Bedside Commode Toilet Bedside Commode # Voids 1 2 # Bowel Movements 1 2 - Labs CBC & Chem 7: 03/08/24 04:59 03/09/24 05:43 Labs: Abnormal Lab Results - Last 24 Hours (Table) 03/09/24 03/09/24 03/10/24 Range/Units 16:34 20:25 02:02 POC Glucose (mg/dL) 339 H 276 H 167 H (70-110) mg/dL 03/10/24 03/10/24 Range/Units 05:36 11:23 POC Glucose (mg/dL) 296 H 250 H (70-110) mg/dL Microbiology - Last 24 Hours (Table) 03/06/24 15:49 Blood Culture - Preliminary Blood
[2024-03-10 14:45] VITALS: BP 155/89; PULSE 100; RESP 17; TEMP 98
[2024-03-11] MEDS ORDERED: FLUCONAZOLE 100 MG TAB PO SCH (09:00)
--- NOTE | 2024-03-11 12:36 | P.PN ---
Subjective Progress Note Date: 03/09/24 Principal diagnosis: Reason for follow-up is fever concern for possible PICC infection Patient is a 54-year-old female with multiple comorbidities including diabetes mellitus hypertension diabetic gastroparesis and did have a jejunostomy tube placement on January 15, 2024, patient also have a double-lumen PICC line placement to the left upper arm about a month ago for TPN has developed fever prompting this consultation. On today's evaluation that is 03/09/2024, Patient is afebrile this morning patient denies having any chest pain shortness of breath or cough, the patient is breathing comfortably on room air, patient still complaining of some abdominal pain but no worsening, she is tolerating her diet no still have some nausea and denies any worsening diarrhea. Patient did have a creatinine 0.77 no CBC was done today blood culture repeat 03/05/2024 has been negative Objective - Vital Signs Vital signs: Vital Signs Temp 99 F 03/09/24 07:22 Pulse 103 H 03/09/24 08:00 Resp 16 03/09/24 08:00 BP 130/78 03/09/24 07:22 Pulse Ox 94 L 03/09/24 07:22 FiO2 Intake & Output 03/08/24 03/09/24 03/09/24 18:59 06:59 18:59 Weight 40 kg 40 kg Other: Voiding Method Bedside Commode # Voids 2 1 # Bowel Movements 1 1 - Exam GENERAL DESCRIPTION: Middle-age female lying in bed in no distress RESPIRATORY SYSTEM: Unlabored breathing , decreased breath sounds at bases HEART: S1 S2 regular rate and rhythm , ABDOMEN: Soft , no tenderness EXTREMITIES: No edema feet - Labs CBC & Chem 7: 03/08/24 04:59 03/09/24 05:43 Labs: Abnormal Lab Results - Last 24 Hours (Table) 03/08/24 03/08/24 03/09/24 Range/Units 16:55 21:29 01:14 Sodium (137-145) mmol/L Chloride (98-107) mmol/L Carbon Dioxide (22-30) mmol/L Glucose (74-99) mg/dL POC Glucose (mg/dL) 130 H 209 H 228 H (70-110) mg/dL Calcium (8.4-10.2) mg/dL Phosphorus (2.5-4.5) mg/dL 03/09/24 03/09/24 03/09/24 Range/Units 05:43 06:38 12:02 Sodium 136 L (137-145) mmol/L Chloride 115 H (98-107) mmol/L Carbon Dioxide 17 L (22-30) mmol/L Glucose 326 H (74-99) mg/dL POC Glucose (mg/dL) 331 H 278 H (70-110) mg/dL Calcium 7.6 L (8.4-10.2) mg/dL Phosphorus 2.1 L (2.5-4.5) mg/dL Microbiology - Last 24 Hours (Table) 03/05/24 16:17 Blood Culture - Preliminary Blood 03/06/24 15:49 Blood Culture - Preliminary Blood Assessment and Plan (1) Sepsis Status: Acute Code(s): A41.9 - SEPSIS, UNSPECIFIED ORGANISM SNOMED Code(s): 95752166 (2) Fever Status: Acute Code(s): R50.9 - FEVER, UNSPECIFIED SNOMED Code(s): 658422377 Plan: 1patient with sepsis in this patient who did have fever tachycardia mild elevated white count with initial concern for possible jejunostomy tube site infection she did have some distention but no significant redness or drainage was noticed around the jejunostomy tube site patient did have a PICC line through the patient is getting TPN could be the source of this fever and sepsis 2-peripheral blood culture obtained nursing staff was not able to get culture from the PICC line, patient did have a left upper extremity Doppler that was negative for DVT 3-patient did have CT abdominal pelvis with concern for enteritis reflux and possible aspiration pneumonitis 4patient blood cultures came back positive with Vanda possible related to the PICC line which was recently replaced, repeat blood cultures so far negative and the patient to continue with Eraxis while inpatient finishing therapy with the Diflucan Dictation was produced using [employer] dictation software. please excuse any gr ammatical, word or spelling errors. Time with Patient: Less than 30
--- NOTE | 2024-03-11 12:37 | P.PN ---
Subjective Progress Note Date: 03/10/24 Principal diagnosis: Reason for follow-up is fever concern for possible PICC infection Patient is a 54-year-old female with multiple comorbidities including diabetes mellitus hypertension diabetic gastroparesis and did have a jejunostomy tube placement on January 15, 2024, patient also have a double-lumen PICC line placement to the left upper arm about a month ago for TPN has developed fever prompting this consultation. On today's evaluation that is 03/10/2024,the patient denies any fever or any chills, patient is breathing comfortably on room air, the patient denies chest pain shortness of breath and no significant cough, patient did have improvement abdominal pain no nausea or vomiting tolerating her diet. No new lab has been obtained today blood culture repeat on 03/05/2024 as well as 03/06/2024 has been negative Objective - Vital Signs Vital signs: Vital Signs Temp 98.1 F 03/10/24 12:42 Pulse 95 03/10/24 12:42 Resp 16 03/10/24 12:42 BP 123/75 03/10/24 12:42 Pulse Ox 96 03/10/24 00:55 FiO2 Intake & Output 03/09/24 03/10/24 03/10/24 18:59 06:59 18:59 Intake Total 420 Balance 420 Weight 40 kg 41.6 kg Intake: Tube Feeding 420 Other: Voiding Method Bedside Commode Toilet Bedside Commode # Voids 1 2 # Bowel Movements 1 2 - Exam GENERAL DESCRIPTION: Middle-age female lying in bed in no distress RESPIRATORY SYSTEM: Unlabored breathing , decreased breath sounds at bases HEART: S1 S2 regular rate and rhythm , ABDOMEN: Soft , no tenderness EXTREMITIES: No edema feet - Labs CBC & Chem 7: 03/08/24 04:59 03/09/24 05:43 Labs: Abnormal Lab Results - Last 24 Hours (Table) 03/09/24 03/09/24 03/10/24 Range/Units 16:34 20:25 02:02 POC Glucose (mg/dL) 339 H 276 H 167 H (70-110) mg/dL 03/10/24 03/10/24 Range/Units 05:36 11:23 POC Glucose (mg/dL) 296 H 250 H (70-110) mg/dL Microbiology - Last 24 Hours (Table) 09/20/24 15:49 Blood Culture - Preliminary Blood Assessment and Plan (1) Sepsis Status: Acute Code(s): A41.9 - SEPSIS, UNSPECIFIED ORGANISM SNOMED Code(s): 97337527 (2) Fever Status: Acute Code(s): R50.9 - FEVER, UNSPECIFIED SNOMED Code(s): 674585583 Plan: 1patient with sepsis in this patient who did have fever tachycardia mild elevated white count with initial concern for possible jejunostomy tube site infection she did have some distention but no significant redness or drainage was noticed around the jejunostomy tube site patient did have a PICC line through the patient is getting TPN could be the source of this fever and sepsis 2-peripheral blood culture obtained nursing staff was not able to get culture from the PICC line, patient did have a left upper extremity Doppler that was negative for DVT 3-patient did have CT abdominal pelvis with concern for enteritis reflux and possible aspiration pneumonitis 4patient blood cultures came back positive with Vanda possible related to the PICC line which was recently replaced, repeat blood cultures so far negative 5-patient may benefit therapy with Diflucan which can be done through the PEG tube closely will confirm with the pharmacist 400 mg daily to finish a 2-week course of therapy total, discussed with admitting physician Dictation was produced using [employer] dictation software. please excuse any grammatical, word or spelling errors. Time with Patient: Less than 30
--- NOTE | 2024-03-12 14:47 | PN ---
PROGRESS NOTE SUBJECTIVE: Remains on IV antifungals per Dr. Brunson. She is feeling better. She had a positive blood culture for fungal infection. The next blood culture so far negative. She is feeling better surgically. Surgeon and Infectious Disease have seen her. Surgery has cleared her for discharge. Continue tube feeds cream, gastroparesis, ileus, abdominal pain, uncontrolled diabetes mellitus, aspiration pneumonia, severe protein- calorie malnutrition, bacteremia with yeast, hypokalemia. Wait for Infectious Disease to clear. OBJECTIVE: LUNGS: Clear. GI: Soft. HEMATOLOGY: Negative Homans. PSYCH: Fair mood and affect. VITAL SIGNS: Reviewed. Dr. Brunson saw the patient. White count is down to 11.8. Place the PICC line. Repeat blood cultures negative so far. Eraxis is helping her. Treatment with IV antibiotics. Not quite ready to be discharged possibly in the morning. Please see further orders. MMODL / IJN: [id number] /
--- NOTE | 2024-04-03 11:57 | CT ---
EXAMINATION TYPE: CT chest wo con CT DLP: 168.7 mGycm, Automated exposure control for dose reduction was used. DATE OF EXAM: 02/26/2024 8:42 AM COMPARISON: . Chest radiograph from 10/06/2023, CTA chest 07/13/2023, CT chest 07/05/2023 CLINICAL INDICATION:Female, 54 years old with history of fever, weakness and dizziness; PHH, fever TECHNIQUE: Multiple axial images were obtained through the chest without IV contrast. Lack of IV or o ral contrast limits evaluation of solid and hollow organ viscera. . Coronal and sagittal reformats re viewed. FINDINGS: LUNGS/ PLEURA: No pleural effusion or pneumothorax. Few posterior right upper lobe groundglass opacit ies. Bilateral lower lobe dependent subsegmental atelectasis. New anterior left upper lobe 7 mm nodu lar density (series 205, image 27). AIRWAY: Patent and unremarkable.. HEART: Size within normal limits. Trace pericardial effusion anteriorly. Moderate coronary artery poli cifications. MEDIASTINUM: No gross evidence of adenopathy. VASCULATURE: No aortic aneurysm. Left PICC line which terminates in the mid SVC. Mild atheroscleroti c calcification of the aorta and its branches. MUSCULOSKELETAL: No acute osseous abnormalities. Stable compression deformity involving the T12 verte bral body. SOFT TISSUES/LYMPH NODES: Unremarkable. LOWER NECK: No significant findings. UPPER ABDOMEN: Postcholecystectomy changes. IMPRESSION: 1. Development of posterior right upper lobe groundglass opacities suggesting infectious/inflammatory process. Bilateral lower lobe dependent suspect atelectasis. 2. New 7 mm left upper lobe nodular density. Follow-up CT chest in 6-12 months is recommended.
== END 2024-03-10 15:42 | disposition home or self-care (01) | DRG 73 ==
LOC: EC 11:33 → 4SSUR 14:19
PROVIDERS: ADMIT Family Medicine; ATTEND Family Medicine
PROC: 3E0436Z Introduction of Nutritional Substance into Central Vein, Percutaneous Approach (ICD-10-PCS; 2024-02-21)
PROC: 02HV33Z Insertion of Infusion Device into Superior Vena Cava, Percutaneous Approach (ICD-10-PCS; 2024-03-02)
PROC: 4A02X4A Measurement of Cardiac Electrical Activity, Guidance, External Approach (ICD-10-PCS; 2024-03-02)
PROC: 02PY33Z Removal of Infusion Device from Great Vessel, Percutaneous Approach (ICD-10-PCS; principal; 2024-03-02 09:10)
DX: E11.43 Type 2 diabetes mellitus with diabetic autonomic (poly)neuropathy (principal); B37.7 Candidal sepsis; E43 Unspecified severe protein-calorie malnutrition; J69.0 Pneumonitis due to inhalation of food and vomit; T80.211A Bloodstream infection due to central venous catheter, initial encounter; K56.7 Ileus, unspecified; K94.23 Gastrostomy malfunction; Z68.1 Body mass index [BMI] 19.9 or less, adult; T82.7XXA Infection and inflammatory reaction due to other cardiac and vascular devices, implants and grafts, initial encounter; E11.42 Type 2 diabetes mellitus with diabetic polyneuropathy; E11.649 Type 2 diabetes mellitus with hypoglycemia without coma; E11.65 Type 2 diabetes mellitus with hyperglycemia; I10 Essential (primary) hypertension; D64.9 Anemia, unspecified; E78.5 Hyperlipidemia, unspecified; E86.0 Dehydration; E87.6 Hypokalemia; F17.210 Nicotine dependence, cigarettes, uncomplicated; K31.84 Gastroparesis; F41.9 Anxiety disorder, unspecified; Z79.4 Long term (current) use of insulin; Z79.899 Other long term (current) drug therapy; Z88.5 Allergy status to narcotic agent
CPT/HCPCS: 36415; 36573; 71045; 71250; 74150; 74177; 80048; 80053; 81001; 82330; 83735; 84100; 84145; 84146; 84439; 84443; 84478; 85025; 86140; 87040; 87045; 87046; 87086; 87635; 93005; 93306; 99285

== ENCOUNTER 2024-03-19 09:31 | Emergency (ER) | payer MEDICARE, OTHER ==
--- NOTE | 2024-03-19 10:04 | ED ---
Abdominal Pain HPI - General Chief Complaint: Abdominal Pain Stated Complaint: abd pain/nausea Time Seen by Provider: 03/19/24 09:50 Source: patient, EMS, RN notes reviewed Mode of arrival: EMS - History of Present Illness Initial Comments: This is a 54-year-old female presents emergency department via EMS for chief complaint of chronic lower abdominal pain, nausea and vomiting. Patient has a complex history of gastroparesis is well-known to our emergency department. States that this pain is same as when she has had similar abdominal pain and nausea attacks in the past however she has been unable to control her symptoms at home with [place], Reglan, or Zofran. States that she has been unable to intake oral foods or liquids over the past few days due to her unrelenting s ymptoms. She denies chest pain, shortness of breath, difficulty breathing, urinary or bladder symptoms, fevers, chills, or productive cough. - Related Data Home Medications Medication Instructions Recorded Confirmed ALPRAZolam [Xanax] 0.25 mg PO BID 05/12/23 03/19/24 Atorvastatin [Lipitor] 20 mg PO DAILY 05/12/23 03/19/24 Insulin Lispro [humaLOG Kwikpen] See Protocol SQ ACHS 05/12/23 03/19/24 Mirtazapine [Remeron] 30 mg PO HS 05/12/23 03/19/24 Folic Acid 1 mg PO DAILY 06/15/23 03/19/24 HYDROcodone/APAP 7.5-325MG [[place] 1 tab PO TID 08/25/23 03/19/24 7.5-325] Ferrous Sulfate [Iron (65 MG 325 mg PO DAILY 12/09/23 03/19/24 Elemental)] Insulin Glargine [Lantus Vial] 10 unit SQ DAILY 12/09/23 03/19/24 [place]-3/Dha/Epa/Fish Oil [Fish Oil 1 cap PO DAILY 02/21/24 03/19/24 1,000 mg Softgel] Ondansetron [Zofran] 4 mg PO BID 02/21/24 03/19/24 Sennosides [Senokot] 8.6 mg PO BID 02/21/24 03/19/24 methocarbamoL [Robaxin] 250 mg PO QID 02/21/24 03/19/24 Artificial Tears-Hypromellose 1 drop BOTH EYES QID PRN 03/19/24 03/19/24 [Artificial Tear Drops] Scopolamine [Scopolamine 1 MG/72 1 patch TRANSDERM Q72H 03/19/24 03/19/24 HR patch] Previous Rx's Medication Instructions Recorded Metoclopramide [Reglan] 10 mg PO ACHS 30 Days #120 tab 05/15/23 Pantoprazole [Protonix] 40 mg PO AC-BID 30 Days #60 tab 05/21/23 amLODIPine [Norvasc] 5 mg PO DAILY 90 Days #90 tab 12/19/23 Famotidine [Pepcid] 20 mg PO BID 30 Days #60 tab 01/18/24 Fluconazole [Diflucan] 400 mg PO DAILY 14 Days #14 tab 03/10/24 Loperamide [Imodium] 2 mg PO QID PRN cap 03/10/24 Allergies Allergy/AdvReac Type Severity Reaction Status Date / Time fentanyl AdvReac "wobbly" Verified 03/19/24 12:22 Review of Systems ROS Statement: Those systems with pertinent positive or pertinent negative responses have been documented in the HPI. ROS Other: All systems not noted in ROS Statement are negative. Past Medical History Past Medical History: Diabetes Mellitus, Hypertension, Musculoskeletal Disorder Additional Past Medical History / Comment(s): FREQ NAUSEA, PAINFUL RT SHOULDER "FROZEN SHOULDER", NEUROPATHY PORFIRIO LEGS and hands, Blood pressures can run high History of Any Multi-Drug Resistant Organisms: ESBL, MRSA, VRE Date of last positivie culture/infection: 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;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 MDRO Source:: Urine VRE and ESBL, MRSA-ABD Past Surgical History: Cholecystectomy, Orthopedic Surgery, Tubal Ligation Additional Past Surgical History / Comment(s): rt shoulder, J tube placement Past Anesthesia/Blood Transfusion Reactions: No Reported Reaction Additional Past Anesthesia/Blood Transfusion Reaction / Comment(s): UNK FAMILY HX Past Psychological History: Anxiety Smoking Status: Current every day smoker Past Alcohol Use History: None Reported Past Drug Use History: None Reported - Past Family History Father History Unknown: Yes Additional Family Medical History / Comment(s): unknown-adopted Mother History Unknown: Yes Additional Family Medical History / Comment(s): unknown- adopted General Exam General appearance: alert, in no apparent distress, cachectic Head exam: Present: atraumatic, normocephalic, normal inspection Eye exam: Present: normal appearance, PERRL, EOMI. Absent: scleral icterus, conjunctival injection, periorbital swelling ENT exam: Present: normal exam, mucous membranes moist Neck exam: Present: normal inspection. Absent: tenderness, meningismus, lymphadenopathy Respiratory exam: Present: normal lung sounds bilaterally. Absent: respiratory distress, wheezes, rales, rhonchi, stridor Cardiovascular Exam: Present: regular rate, normal rhythm, normal heart sounds. Absent: systolic murmur, diastolic murmur, rubs, gallop, clicks GI/Abdominal exam: Present: soft, tenderness (diffuse to palpation), normal bowel sounds. Absent: distended, guarding, rebound, rigid Extremities exam: Present: normal inspection, full ROM, normal capillary refill. Absent: tenderness, pedal edema, joint swelling, calf tenderness Back exam: Present: normal inspection Neurological exam: Present: alert, oriented X3, CN II-XII intact Skin exam: Present: warm, dry, intact, normal color. Absent: rash Course Vital Signs 03/19/24 03/19/24 03/19/24 09:35 11:21 12:36 Temperature 97.6 F Pulse Rate 89 92 92 Respiratory 16 18 18 Rate Blood Pressure 124/74 128/77 119/75 O2 Sat by Pulse 100 98 98 Oximetry 03/19/24 13:42 Temperature 98.0 F Pulse Rate 90 Respiratory 18 Rate Blood Pressure 106/69 O2 Sat by Pulse 96 Oximetry Medical Decision Making - Medical Decision Making Was pt. sent in by a medical professional or institution (, PA, TEACHER LIP READING, urgent care, hospital, or assisted...) When possible be specific @ -No Did you speak to anyone other than the patient for history (EMS, parent, family, police, friend...)? What history was obtained from this source @ -No Did you review nursing and triage notes (agree or disagree)? Why? @ -I reviewed and agree with nursing and triage notes Were old charts reviewed (outside hosp., previous admission, EMS record, old EKG, old radiological studies, urgent care reports/EKG's, assisted records)? Report findings @ -I reviewed the patient's emergency department visit note from 02/21/2024 where she presented with gastroparesis symptoms and abdominal pain was admitted to the hospital for over 2 weeks and was d/c on 03/10/24 Differential Diagnosis (chest pain, altered mental status, abdominal pain women, abdominal pain men, vaginal bleeding, weakness, fever, dyspnea, syncope, headache, dizziness, GI bleed, back pain, seizure, CVA, palpatations, mental health, musculoskeletal)? @ -Differential Abdominal Pain Women: Appendicitis, Cholecystitis, diverticulosis, ischemic bowel, pancreatitis, hepatitis, UTI, gastroenteritis, AAA, incarcerated hernia, bowel obstruction, constipation, inflammatory bowel, hepatitis, peptic ulcer disease, splenic infarction, perforated viscus, vulvitis, ovarian torsion, PID, kidney stone, placenta abruption, this is not meant to be an all-inclusive list EKG interpreted by me (3pts min.). @ -None X-rays interpreted by me (1pt min.). @ -None done CT interpreted by me (1pt min.). @ -None done U/S interpreted by me (1pt. min.). @ -None done What testing was considered but not performed or refused? (CT, X-rays, U/S, labs)? Why? @ -None What meds were considered but not given or refused? Why? @ -None Did you discuss the management of the patient with other professionals (professionals i.e. , PA, TEACHER LIP READING, lab, RT, psych nurse, pediatric social worker, recreational counselor, teacher, forest fire management officer, block and case maker)? Give summary @ -I spoke with Dr. Kay, who is covering for Dr. Pike (the patient's PCP), in regard to the patient's presentation for chronic abdominal pain and chronic nausea. Laboratory results were relayed and patient is stable no signs of acute distress and she is stable for discharge with appropriate follow-up outpatient with primary care provider. Was smoking cessation discussed for >3mins.? @ -No Was critical care preformed (if so, how long)? @ -No Were there social determinants of health that impacted care today? How? (Temo elessness, low income, unemployed, alcoholism, drug addiction, transportation, low edu. Level, literacy, decrease access to med. care, assisted, rehab)? @ -No Was there de-escalation of care discussed even if they declined (Discuss DNR or withdrawal of care, Hospice)? DNR status @ -No What co-morbidities impacted this encounter? (DM, HTN, Smoking, COPD, CAD, Cancer, CVA, ARF, Chemo, Hep., AIDS, mental health diagnosis, sleep apnea, morbid obesity)? @ -None Was patient admitted / discharged? Hospital course, mention meds given and route, prescriptions, significant lab abnormalities, going to OR and other pertinent info. @ -54-year-old female with abdominal pain, nausea vomiting and gastroparesis. Patient is cachectic and ill-appearing on examination. Vitals are stable. She has jejunostomy tube in place with no signs of erythema or purulence. Patient has abdominal tenderness to examination that is diffuse however abdomen is soft and non. She will be symptomatically treated with antiemetics, fluids, and analgesics pending laboratory results. She is and agree with this plan. CBC reveals anemia that is chronic with a hemoglobin of 11.1, hyponatremia 133, hyperglycemia 449, lactate not elevated at 1.1, corrected sodium is 141. Patient is provided with 10 unit insulin bolus, Recheck of patient's glucose after 10 unit insulin bolus is 296 Recommend that patient contact her primary care provider's office to schedule a sooner follow-up appointment for further evaluation of chronic abdominal pain and chronic nausea. discussed with Dr. Santizo. Undiagnosed new problem with uncertain prognosis? @ -No Drug Therapy requiring intensive monitoring for toxicity (Heparin, Nitro, Insulin, Cardizem)? @ -No Were any procedures done? @ -No Diagnosis/symptom? @ -Hyperglycemia, gastroparesis, chronic abdominal pain Acute, or Chronic, or Acute on Chronic? @ -Chronic Uncomplicated (without systemic symptoms) or Complicated (systemic symptoms)? @ -Uncomplicated Side effects of treatment? @ -No Exacerbation, Progression, or Severe Exacerbation? @ -No Poses a threat to life or bodily function? How? (Chest pain, [place], [place], pneumonia, PE, COPD, DKA, ARF, appy, cholecystitis, CVA, Diverticulitis, Homicidal, Suicidal, threat to staff... and all critical care pts) @ -No - Lab Data Result diagrams: 03/19/24 11:12 03/19/24 11:12 Lab Results 03/19/24 03/19/24 03/19/24 Range/Units 11:12 11:12 11:12 WBC 7.7 (3.8-10.6) k/uL RBC 3.78 L (3.80-5.40) m/uL Hgb 11.1 L D (11.4-16.0) gm/dL Hct 35.0 (34.0-46.0) % MCV 92.7 (80.0-100.0) fL MCH 29.3 (25.0-35.0) pg MCHC 31.6 (31.0-37.0) g/dL RDW 16.7 H (11.5-15.5) % Plt Count 431 (150-450) k/uL MPV 7.9 Neutrophils % 79 % Lymphocytes % 15 % Monocytes % 4 % Eosinophils % 2 % Basophils % 0 % Neutrophils # 6.1 (1.3-7.7) k/uL Lymphocytes # 1.2 (1.0-4.8) k/uL Monocytes # 0.3 (0-1.0) k/uL Eosinophils # 0.1 (0-0.7) k/uL Basophils # 0.0 (0-0.2) k/uL Hypochromasia Slight Anisocytosis Slight Sodium 133 L (137-145) mmol/L Potassium 4.2 (3.5-5.1) mmol/L Chloride 100 (98-107) mmol/L Carbon Dioxide 30 (22-30) mmol/L Anion Gap 3 mmol/L BUN 17 (7-17) mg/dL Creatinine 0.86 (0.52-1.04) mg/dL Est GFR (CKD-EPI)AfAm >90 (>60 ml/min/1.73 sqM) Est GFR (CKD-EPI)NonAf 79 (>60 ml/min/1.73 sqM) Glucose 449 H (74-99) mg/dL POC Glucose (mg/dL) (70-110) mg/dL POC Glu Clock And Watch Hands Dipper ID Plasma Lactic Acid [place] 1.1 (0.7-2.0) mmol/L Calcium 8.3 L (8.4-10.2) mg/dL Total Bilirubin 0.3 (0.2-1.3) mg/dL AST 28 (14-36) U/L ALT 25 (4-34) U/L Alkaline Phosphatase 183 H (38-126) U/L Total Protein 6.6 (6.3-8.2) g/dL Albumin 3.1 L (3.5-5.0) g/dL Amylase 42 (30-110) U/L Lipase 101 (23-300) U/L 03/19/24 Range/Units 13:38 WBC (3.8-10.6) k/uL RBC (3.80-5.40) m/uL Hgb (11.4-16.0) gm/dL Hct (34.0-46.0) % MCV (80.0-100.0) fL MCH (25.0-35.0) pg MCHC (31.0-37.0) g/dL RDW (11.5-15.5) % Plt Count (150-450) k/uL MPV Neutrophils % % Lymphocytes % % Monocytes % % Eosinophils % % Basophils % % Neutrophils # (1.3-7.7) k/uL Lymphocytes # (1.0-4.8) k/uL Monocytes # (0-1.0) k/uL Eosinophils # (0-0.7) k/uL Basophils # (0-0.2) k/uL Hypochromasia Anisocytosis Sodium (137-145) mmol/L Potassium (3.5-5.1) mmol/L Chloride (98-107) mmol/L Carbon Dioxide (22-30) mmol/L Anion Gap mmol/L BUN (7-17) mg/dL Creatinine (0.52-1.04) mg/dL Est GFR (CKD-EPI)AfAm (>60 ml/min/1.73 sqM) Est GFR (CKD-EPI)NonAf (>60 ml/min/1.73 sqM) Glucose (74-99) mg/dL POC Glucose (mg/dL) 296 H (70-110) mg/dL POC Glu Clock And Watch Hands Dipper ID Santana [place] Plasma Lactic Acid Travis (0.7-2.0) mmol/L Calcium (8.4-10.2) mg/dL Total Bilirubin (0.2-1.3) mg/dL AST (14-36) U/L ALT (4-34) U/L Alkaline Phosphatase (38-126) U/L Total Protein (6.3-8.2) g/dL Albumin (3.5-5.0) g/dL Amylase (30-110) U/L Lipase (23-300) U/L Disposition Clinical Impression: Chronic abdominal pain, Chronic nausea, Hyperglycemia Disposition: HOME SELF-CARE Condition: Stable Instructions (If sedation given, give patient instructions): Gastroparesis (ED) Additional Instructions: Please return to the Emergency Department if symptoms worsen or any other concerns. Recommend that you contact your primary care provider's office to schedule follow-up appointment earlier than scheduled date. Continue symptomatic treatment at home. Continue to monitor blood sugar levels. Is patient prescribed a controlled substance at d/c from ED?: No Referrals: Dell Pike MD [Primary Care Provider] - 1-2 days Time of Disposition: 12:39
[2024-03-19] MEDS: METOCLOPRAMIDE 5 MG/ML 2 ML VIAL IVP STA (11:25)
[2024-03-19] MEDS: SODIUM CHLORIDE 0.9% 1,000 ML IV STA (11:25)
[2024-03-19] MEDS: HYDROmorphone 1 MG/ML 1 ML SYRINGE IVP STA ×2 (11:26→12:43)
[2024-03-19 11:28] VITALS: RESP 18
[2024-03-19 11:38] LABS: Anisocytosis Slight; Basophils % (A) 0 %; Eosinophils # (A) 0.1 k/uL (0-0.7); Eosinophils % (A) 2 %; Hypochromasia Slight; Lymphocytes # (A) 1.2 k/uL (1.0-4.8); Lymphocytes % (A) 15 %; MCH 29.3 pg (25.0-35.0); MCHC 31.6 g/dL (31.0-37.0); MCV 92.7 fL (80.0-100.0); Mean Platelet Volume 7.9; Monocytes # (A) 0.3 k/uL (0-1.0); Monocytes % (A) 4 %; Neutrophils # (A) 6.1 k/uL (1.3-7.7); Neutrophils % (A) 79 %; Platelet Count 431 k/uL (150-450); RBC 3.78 m/uL (3.80-5.40); RDW 16.7 % (11.5-15.5); WBC 7.7 k/uL (3.8-10.6)
[2024-03-19 11:39] LABS: HGB 11.1 gm/dL (11.4-16.0)
[2024-03-19 11:42] LABS: ALT 25 U/L (4-34); AST 28 U/L (14-36); African American GFR (CKD) >90 (>60 ml/min/1.73 sqM); Albumin 3.1 g/dL (3.5-5.0); Alkaline Phosphatase 183 U/L (38-126); Amylase 42 U/L (30-110); Anion Gap 3 mmol/L; Blood Urea Nitrogen 17 mg/dL (7-17); Calcium 8.3 mg/dL (8.4-10.2); Carbon Dioxide 30 mmol/L (22-30); Chloride 100 mmol/L (98-107); Glucose 449 mg/dL (74-99); Lipase 101 U/L (23-300); Non-African American GFR(CKD) 79 (>60 ml/min/1.73 sqM); Potassium 4.2 mmol/L (3.5-5.1); Sodium 133 mmol/L (137-145); Total Bilirubin 0.3 mg/dL (0.2-1.3); Total Protein 6.6 g/dL (6.3-8.2)
[2024-03-19] MEDS: INSULIN REGULAR 100 UNIT/ML VIAL (IV) IV ONE (12:40)
[2024-03-19 13:40] LABS: Glucose,Whole Blood 296 mg/dL (70-110)
[2024-03-19 13:44] VITALS: BP 106/69; PULSE 90; TEMP 98
[2024-03-20 06:58] LABS: Glucose,Whole Blood 393 mg/dL (70-110)
== END 2024-03-19 13:44 | disposition home or self-care (01) ==
LOC: EC 09:31
CPT/HCPCS: 36415; 80053; 82150; 83605; 83690; 85025; 96361; 96374; 96375; 96376; 99284

== ENCOUNTER 2024-03-24 05:07 | Inpatient (IN) | payer MEDICARE ==
[2024-03-24 05:11] LABS: Glucose,Whole Blood 458 mg/dL (70-110)
[2024-03-24] MEDS: SODIUM CHLORIDE 0.9% 1,000 ML IV STA (05:22)
[2024-03-24] MEDS: METOCLOPRAMIDE 5 MG/ML 2 ML VIAL IVP STA (05:27)
--- NOTE | 2024-03-24 05:29 | ED ---
General Adult HPI - General Chief complaint: Abdominal Pain Stated complaint: Abd Pain Time Seen by Provider: 03/24/24 05:09 Source: EMS Mode of arrival: EMS - History of Present Illness Initial comments: Dictation was produced using [employer] dictation software. please excuse any gram matical, word or spelling errors. Chief Complaint: 54-year-old female with abdominal pain History of Present Illness: Patient is 54-year-old female she is well-known to our emergency department. Patient is here yet again for acute on chronic abdominal pain. Patient presents to us from home for abdominal pain. Patient has history of gastroparesis. She is allegedly supposed to follow-up with specialist from tertiary center however has not. Denies any fever, chills or night sweats. The ROS documented in this emergency department record has been reviewed and confirmed by me. Those systems with pertinent positive or negative responses have been documented in the HPI. All other systems are other negative and/or noncontributory. - Related Data Home Medications Medication Instructions Recorded Confirmed ALPRAZolam [Xanax] 0.25 mg PO BID 05/12/23 03/19/24 Atorvastatin [Lipitor] 20 mg PO DAILY 05/12/23 03/19/24 Insulin Lispro [humaLOG Kwikpen] See Protocol SQ ACHS 05/12/23 03/19/24 Mirtazapine [Remeron] 30 mg PO HS 05/12/23 03/19/24 Folic Acid 1 mg PO DAILY 06/15/23 03/19/24 HYDROcodone/APAP 7.5-325MG [[place] 1 tab PO TID 08/25/23 03/19/24 7.5-325] Ferrous Sulfate [Iron (65 MG 325 mg PO DAILY 12/09/23 03/19/24 Elemental)] Insulin Glargine [Lantus Vial] 10 unit SQ DAILY 12/09/23 03/19/24 [place]-3/Dha/Epa/Fish Oil [Fish Oil 1 cap PO DAILY 02/21/24 03/19/24 1,000 mg Softgel] Ondansetron [Zofran] 4 mg PO BID 02/21/24 03/19/24 Sennosides [Senokot] 8.6 mg PO BID 02/21/24 03/19/24 methocarbamoL [Robaxin] 250 mg PO QID 02/21/24 03/19/24 Artificial Tears-Hypromellose 1 drop BOTH EYES QID PRN 03/19/24 03/19/24 [Artificial Tear Drops] Scopolamine [Scopolamine 1 MG/72 1 patch TRANSDERM Q72H 03/19/24 03/19/24 HR patch] Previous Rx's Medication Instructions Recorded Metoclopramide [Reglan] 10 mg PO ACHS 30 Days #120 tab 05/15/23 Pantoprazole [Protonix] 40 mg PO AC-BID 30 Days #60 tab 05/21/23 amLODIPine [Norvasc] 5 mg PO DAILY 90 Days #90 tab 12/19/23 Famotidine [Pepcid] 20 mg PO BID 30 Days #60 tab 01/18/24 Fluconazole [Diflucan] 400 mg PO DAILY 14 Days #14 tab 03/10/24 Loperamide [Imodium] 2 mg PO QID PRN cap 03/10/24 Allergies Allergy/AdvReac Type Severity Reaction Status Date / Time fentanyl AdvReac "wobbly" Verified 03/24/24 05:12 Review of Systems ROS Statement: Those systems with pertinent positive or pertinent negative responses have been documented in the HPI. ROS Other: All systems not noted in ROS Statement are negative. Past Medical History Past Medical History: Diabetes Mellitus, Hypertension, Musculoskeletal Disorder Additional Past Medical History / Comment(s): FREQ NAUSEA, PAINFUL RT SHOULDER "FROZEN SHOULDER", NEUROPATHY PORFIRIO LEGS and hands, Blood pressures can run high History of Any Multi-Drug Resistant Organisms: ESBL, MRSA, VRE Date of last positivie culture/infection: 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;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 MDRO Source:: Urine VRE and ESBL, MRSA-ABD Past Surgical History: Cholecystectomy, Orthopedic Surgery, Tubal Ligation Additional Past Surgical History / Comment(s): rt shoulder, J tube placement Past Anesthesia/Blood Transfusion Reactions: No Reported Reaction Additional Past Anesthesia/Blood Transfusion Reaction / Comment(s): UNK FAMILY HX Past Psychological History: Anxiety Smoking Status: Current every day smoker Past Alcohol Use History: None Reported Past Drug Use History: None Reported - Past Family History Father History Unknown: Yes Additional Family Medical History / Comment(s): unknown-adopted Mother History Unknown: Yes Additional Family Medical History / Comment(s): unknown- adopted General Exam - General Exam Comments Initial Comments: PHYSICAL EXAM: General Impression: Alert and oriented x3, not in acute distress HEENT: Normocephalic atraumatic, extra-ocular movements intact, pupils equal and reactive to light bilaterally, mucous membranes moist. Cardiovascular: Heart regular rate and rhythm Chest: Able to complete full sentences, no retractions, no tachypnea Abdomen: abdomen soft, diffuse abdominal tenderness , non-distended, no organomegaly Musculoskeletal: Pulses present and equal in all extremities, no peripheral edema Motor: no focal deficits noted Neurological: CN II-XII grossly intact, no focal motor or sensory deficits noted Skin: Intact with no visualized rashes Psych: Normal affect and mood Course Vital Signs 03/24/24 05:09 Temperature 97.6 F Pulse Rate 107 H Respiratory 15 Rate Blood Pressure 132/87 O2 Sat by Pulse 99 Oximetry EKG Findings - EKG Comments: EKG Findings:: My EKG interpretation: Ventricular rate 103, sinus tachycardia,. 122, QRS 75, QTc 421. No [place] prolongation, no QTC prolongation, no ST or T-wave changes noted. Overall, this EKG is unremarkable Medical Decision Making - Medical Decision Making Was pt. sent in by a medical professional or institution (, PA, IRON BENDER, urgent care, hospital, or detention...) When possible be specific @ -No Did you speak to anyone other than the patient for history (EMS, parent, family, police, friend...)? What history was obtained from this source @ -EMS as described above Did you review nursing and triage notes (agree or disagree)? Why? @ -I reviewed and agree with nursing and triage notes Were old charts reviewed (outside hosp., previous admission, EMS record, old EKG, old radiological studies, urgent care reports/EKG's, detention records)? Report findings @ -Discharge packet reviewed from 24 showing patient was recently admitted Differential Diagnosis (chest pain, altered mental status, abdominal pain women, abdominal pain men, vaginal bleeding, musculoskeletal, weakness, fever, dyspnea, syncope, headache, dizziness, GI bleed, back pain, seizure, CVA, palpatations, mental health)? @ -Differential Abdominal Pain Women: Appendicitis, Cholecystitis, diverticulosis, ischemic bowel, pancreatitis, hepatitis, UTI, gastroenteritis, AAA, incarcerated hernia, bowel obstruction, constipation, inflammatory bowel, hepatitis, peptic ulcer disease, splenic infarction, perforated viscus, vulvitis, ovarian torsion, PID, kidney stone, placenta abruption, this is not meant to be an all-inclusive list EKG interpreted by me (3pts min.). @ -See above X-rays interpreted by me (1pt min.). @ -Abdominal x-ray shows no obstruction or intraperitoneal air CT interpreted by me (1pt min.). @ -None done U/S interpreted by me (1pt. min.). @ -None done What testing was considered but not performed or refused? (CT, X-rays, U/S, la bs)? Why? @ -None What meds were considered but not given or refused? Why? @ -None Was smoking cessation discussed for >3mins.? @ -No Were there social determinants of health that impacted care today? How? (Homelessness, low income, unemployed, alcoholism, drug addiction, transportation, low edu. Level, literacy, decrease access to med. care, alf, rehab)? @ -Diabetes with patient noncompliance, opiate use disorder Was there de-escalation of care discussed even if they declined (Discuss DNR or withdrawal of care, Hospice)? DNR status @ -No What co-morbidities impacted this encounter? (DM, HTN, Smoking, COPD, CAD, Cancer, CVA, ARF, Chemo, Hep., AIDS, mental health diagnosis, sleep apnea, morbid obesity)? @ -Diabetes uncontrolled Was patient admitted / discharged? Hospital course, mention meds given and route, prescriptions, significant lab abnormalities, going to OR and other pertinent info. @ -54-year-old female well-known to emergency department for multiple admissions for abdominal pain and uncontrolled diabetes mellitus presents to the ER again for abdominal pain and vomiting. To her uncontrolled gastroparesis vital signs upon arrival are within acceptable limits. Her evaluation shows stable hemoglobin. Blood glucose 460. No acidosis. Patient given IV fluids, Protonix due to observed bloody specks in her emesis and analgesics. Case discussed with Dr. Pike for admission. GI consulted Did you discuss the management of the patient with other professionals (p rofessionals i.e. , PA, IRON BENDER, lab, RT, psych nurse, social media strategist, oil and gas exploration technician, teacher, aboriginal liaison officer, case preparer and liner)? Give summary @ -See above Was critical care preformed (if so, how long)? @ -No Undiagnosed new problem with uncertain prognosis? @ -No Drug Therapy requiring intensive monitoring for toxicity (Heparin, Nitro, Insulin, Cardizem)? @ -No Were any procedures done? @ -No Diagnosis/symptom? Acute, or Chronic, or Acute on Chronic? Uncomplicated (without systemic symptoms) or Complicated (systemic symptoms)? @ -Acute on chronic gastroparesis Side effects of treatment? @ -No Exacerbation, Progression, or Severe Exacerbation? @ -No Poses a threat to life or bodily function? How? (Chest pain, [place], [place], pneumonia, PE, COPD, DKA, ARF, appy, cholecystitis, CVA, Diverticulitis, Homicidal, Suicidal, threat to staff... and all critical care pts) @ -yes - Lab Data Result diagrams: 03/24/24 05:15 03/24/24 05:15 Lab Results 03/24/24 03/24/24 03/24/24 Range/Units 05:10 05:15 05:15 WBC 6.0 (3.8-10.6) k/uL RBC 4.81 (3.80-5.40) m/uL Hgb 13.7 (11.4-16.0) gm/dL Hct 44.4 (34.0-46.0) % MCV 92.1 (80.0-100.0) fL MCH 28.5 (25.0-35.0) pg MCHC 30.9 L (31.0-37.0) g/dL RDW 16.3 H (11.5-15.5) % Plt Count 374 (150-450) k/uL MPV 7.3 Neutrophils % 66 % Lymphocytes % 24 % Monocytes % 6 % Eosinophils % 3 % Basophils % 1 % Neutrophils # 3.9 (1.3-7.7) k/uL Lymphocytes # 1.4 (1.0-4.8) k/uL Monocytes # 0.3 (0-1.0) k/uL Eosinophils # 0.2 (0-0.7) k/uL Basophils # 0.0 (0-0.2) k/uL Hypochromasia Slight Anisocytosis Slight Sodium 134 L (137-145) mmol/L Potassium 3.5 (3.5-5.1) mmol/L Chloride 92 L (98-107) mmol/L Carbon Dioxide 39 H (22-30) mmol/L Anion Gap 3 mmol/L BUN 12 (7-17) mg/dL Creatinine 0.70 (0.52-1.04) mg/dL Est GFR (CKD-EPI)AfAm >90 (>60 ml/min/1.73 sqM) Est GFR (CKD-EPI)NonAf >90 (>60 ml/min/1.73 sqM) Glucose 468 H (74-99) mg/dL POC Glucose (mg/dL) 458 H (70-110) mg/dL POC Glu Workplace Relations Adviser ID Burgess Patel Calcium 9.4 (8.4-10.2) mg/dL Total Bilirubin 0.5 (0.2-1.3) mg/dL AST 31 (14-36) U/L ALT 28 (4-34) U/L Alkaline Phosphatase 216 H (38-126) U/L Total Protein 7.6 (6.3-8.2) g/dL Albumin 3.5 (3.5-5.0) g/dL Lipase 78 (23-300) U/L Disposition Clinical Impression: Gastroparesis Disposition: ADMITTED IP TO THIS [facility] Condition: Fair Referrals: Dell Pike MD [Primary Care Provider] - 1-2 days Decision Time: 06:15
[2024-03-24 05:39] LABS: Anisocytosis Slight; Basophils % (A) 1 %; Eosinophils # (A) 0.2 k/uL (0-0.7); Eosinophils % (A) 3 %; HCT 44.4 % (34.0-46.0); HGB 13.7 gm/dL (11.4-16.0); Hypochromasia Slight; Lymphocytes # (A) 1.4 k/uL (1.0-4.8); Lymphocytes % (A) 24 %; MCH 28.5 pg (25.0-35.0); MCHC 30.9 g/dL (31.0-37.0); MCV 92.1 fL (80.0-100.0); Mean Platelet Volume 7.3; Monocytes # (A) 0.3 k/uL (0-1.0); Monocytes % (A) 6 %; Neutrophils # (A) 3.9 k/uL (1.3-7.7); Neutrophils % (A) 66 %; Platelet Count 374 k/uL (150-450); RBC 4.81 m/uL (3.80-5.40); RDW 16.3 % (11.5-15.5)
[2024-03-24 05:49] LABS: ALT 28 U/L (4-34); AST 31 U/L (14-36); African American GFR (CKD) >90 (>60 ml/min/1.73 sqM); Albumin 3.5 g/dL (3.5-5.0); Alkaline Phosphatase 216 U/L (38-126); Anion Gap 3 mmol/L; Blood Urea Nitrogen 12 mg/dL (7-17); Calcium 9.4 mg/dL (8.4-10.2); Carbon Dioxide 39 mmol/L (22-30); Chloride 92 mmol/L (98-107); Glucose 468 mg/dL (74-99); Lipase 78 U/L (23-300); Non-African American GFR(CKD) >90 (>60 ml/min/1.73 sqM); Potassium 3.5 mmol/L (3.5-5.1); Sodium 134 mmol/L (137-145); Total Bilirubin 0.5 mg/dL (0.2-1.3); Total Protein 7.6 g/dL (6.3-8.2)
[2024-03-24] MEDS: HYDROmorphone 1 MG/ML 1 ML SYRINGE IVP STA (05:52)
[2024-03-24] MEDS ORDERED: NALOXONE 0.4 MG/ML 1 ML VIAL IV PRN (06:10)
[2024-03-24] MEDS ORDERED: ACETAMINOPHEN TAB 325 MG TAB PO PRN (06:10)
[2024-03-24] MEDS: INSULIN REGULAR 100 UNIT/ML VIAL (IV) IV ONE (06:36)
[2024-03-24] MEDS: SODIUM CHLORIDE 0.9% 1,000 ML IV SCH (06:37)
[2024-03-24] MEDS: PANTOPRAZOLE 40 MG/10 ML VIAL IVP STA (06:41)
[2024-03-24 06:46] LABS: Glucose,Whole Blood 406 mg/dL (70-110)
[2024-03-24 07:48] LABS: Glucose,Whole Blood 308 mg/dL (70-110)
--- NOTE | 2024-03-24 08:36 | XR ---
EXAMINATION TYPE: XR abdomen 1V DATE OF EXAM: 03/24/2024 Comparison: 01/10/2024 Clinical History: 54-year-old female gastroparesis Findings: Lung bases are clear. No dilated small bowel. No significant stool burden. Scattered colonic air. The re is a catheter looped at the left lower quadrant. Clinically correlate. Possible tiny cholecystecto my clips. Impression: 1. Some type of catheter is looped, projecting at the left lower quadrant. Clinically correlate. 2. Nonobstructive bowel gas pattern. No significant stool burden. [facility], , 03/24/2024 8:33 AM
[2024-03-24] MEDS: PANTOPRAZOLE 40 MG/10 ML VIAL IV SCH (08:37)
[2024-03-24] MEDS: ONDANSETRON 4 MG/2 ML VIAL IVP PRN (08:37)
[2024-03-24] MEDS: HYDROmorphone 1 MG/ML 1 ML SYRINGE IVP PRN (08:38)
[2024-03-24 12:18] LABS: Glucose,Whole Blood 188 mg/dL (70-110)
[2024-03-24] MEDS ORDERED: ARTIFICIAL TEARS-HYPROMELLOSE DROPS 15 ML BTL BOTH EYES PRN (12:56)
[2024-03-24 13:46] VITALS: BMI 15.1
[2024-03-24] MEDS ORDERED: DEXTROSE 50% SYRINGE 50 ML IVP PRN (13:57)
--- NOTE | 2024-03-24 14:08 | P.CONS ---
History of Present Illness - Reason for Consult Consult date: 03/24/24 Abdominal pain Requesting physician: Dakota Fish - Chief Complaint Abdominal pain, nausea and vomiting - History of Present Illness This is a pleasant 54-year-old female who is frequently admitted to the hospital with same complaints of abdominal pain, nausea and vomiting. She is diabetic with uncontrolled blood sugars and gastroparesis. She has had multiple upper endoscopies she has had colonoscopies. She has been seen multiple times by general surgery and gastroenterology. She presents back with same symptoms of nausea vomiting and abdominal pain. Lace placed by Dr. David Roe in December of this year. States that she used does tube feedings at home and the 400s. Gastroenterology can no pain. Patient has been to follow-up with endocrinology several times [facility] or [place] for gastroparesis it has yet to follow-up for that as well. Last upper endoscopy done with Dr. Garzon in December 2023 with findings of gastritis. Colonoscopy was in September 2023 significant for colon polyps status post polypectomy. Review of Systems REVIEW OF SYSTEMS: CARDIOPULMONARY: No chest pain or shortness of breath. Gastrointestinal: Abdominal pain. Nausea and vomiting. No hematemesis, coffee-ground emesis. No rectal bleeding, or melena. GENITOURINARY: No dysuria or hematuria. MUSCULOSKELETAL: Reports normal range of motion., Joint pain. SKIN: No rashes. No jaundice. ENDOCRINE: No chills, fevers. Patient is very thin, has had chronic weight loss. No polydipsia or polyuria. PSYCHIATRIC: Unremarkable. NEUROLOGY: No change in mental status. Denies dizziness, headache. ENT: Vision unremarkable. CONSTITUTIONAL: No recent weight loss. No fever, chills, night sweats. 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 MDRO Source:: Urine VRE and ESBL, MRSA-ABD Past Surgical History: Cholecystectomy, Orthopedic Surgery, Tubal Ligation Additional Past Surgical History / Comment(s): rt shoulder, J tube placement Past Anesthesia/Blood Transfusion Reactions: No Reported Reaction Additional Past Anesthesia/Blood Transfusion Reaction / Comm: UNK FAMILY HX Past Psychological History: Anxiety Smoking Status: Current every day smoker Past Alcohol Use History: None Reported Additional Past Alcohol Use History / Comment(s): STARTED SMOKING 1987, smokes about 6 cigs/day Past Drug Use History: None Reported Additional Drug Use History / Comment(s): Patient denies using marijuana. - Past Family History Father History Unknown: Yes Additional Family Medical History / Comment(s): unknown-adopted Mother History Unknown: Yes Additional Family Medical History / Comment(s): unknown- adopted Medications and Allergies Home Medications Medication Instructions Recorded Confirmed Type ALPRAZolam [Xanax] 0.25 mg PO BID 05/12/23 03/24/24 History Atorvastatin [Lipitor] 20 mg PO DAILY 05/12/23 03/24/24 History Insulin Lispro [humaLOG Kwikpen] See Protocol SQ ACHS 05/12/23 03/24/24 History Mirtazapine [Remeron] 30 mg PO HS 05/12/23 03/24/24 History Metoclopramide [Reglan] 10 mg PO ACHS 30 Days #120 tab 05/15/23 03/24/24 Rx Pantoprazole [Protonix] 40 mg PO AC-BID 30 Days #60 tab 05/21/23 03/24/24 Rx Folic Acid 1 mg PO DAILY 06/15/23 03/24/24 History HYDROcodone/APAP 7.5-325MG [[place] 1 tab PO TID 08/25/23 03/24/24 History 7.5-325] Ferrous Sulfate [Iron (65 MG 325 mg PO DAILY 12/09/23 03/24/24 History Elemental)] Insulin Glargine [Lantus Vial] 10 unit SQ DAILY 12/09/23 03/24/24 History amLODIPine [Norvasc] 5 mg PO DAILY 90 Days #90 tab 12/19/23 03/24/24 Rx Famotidine [Pepcid] 20 mg PO BID 30 Days #60 tab 01/18/24 03/24/24 Rx [place]-3/Dha/Epa/Fish Oil [Fish Oil 1 cap PO DAILY 02/21/24 03/24/24 History 1,000 mg Softgel] Ondansetron [Zofran] 4 mg PO BID 02/21/24 03/24/24 History Sennosides [Senokot] 8.6 mg PO BID 02/21/24 03/24/24 History methocarbamoL [Robaxin] 250 mg PO QID 02/21/24 03/24/24 History Fluconazole [Diflucan] 400 mg PO DAILY 14 Days #14 tab 03/10/24 03/24/24 Rx Loperamide [Imodium] 2 mg PO QID PRN cap 03/10/24 03/24/24 Rx Artificial Tears-Hypromellose 1 drop BOTH EYES QID PRN 03/19/24 03/24/24 History [Artificial Tear Drops] Scopolamine [Scopolamine 1 MG/72 1 patch TRANSDERM Q72H 03/19/24 03/24/24 History HR patch] Allergies Allergy/AdvReac Type Severity Reaction Status Date / Time fentanyl AdvReac "wobbly" Verified 03/24/24 06:31 Physical Exam Vitals: Vital Signs Temp Pulse Pulse Resp BP BP Pulse Ox 03/24/24 07:40 97.6 F 101 H 17 175/92 98 03/24/24 07:17 70 14 128/70 95 03/24/24 06:46 96 14 154/89 98 03/24/24 05:09 97.6 F 107 H 15 132/87 99 Intake and Output 03/23/24 03/24/24 03/24/24 22:59 06:59 14:59 Other: Weight 34.019 kg General appearance: The patient is alert, oriented, appears in no acute distress. HET: Head is normocephalic and atraumatic. Conjunctiva pink. Sclera anicteric. Neck: Supple without lymphadenopathy. Trachea midline. Heart: Regular. Lungs: Equal expansion, normal respiratory effort. Abdomen: Soft, thin, diffuse tenderness, J-tube present without any erythema, drainage, nondistended. Skin: No rashes. No jaundice. Extremities: Normal skin color and turgor. No pedal edema. Neurological: No focal deficits. Alert and oriented x3. Results CBC & Chem 7: 03/24/24 05:15 03/24/24 05:15 Labs: Abnormal Lab Results - Last 24 Hours (Table) 03/24/24 03/24/24 03/24/24 Range/Units 05:10 05:15 05:15 MCHC 30.9 L (31.0-37.0) g/dL RDW 16.3 H (11.5-15.5) % Sodium 134 L (137-145) mmol/L Chloride 92 L (98-107) mmol/L Carbon Dioxide 39 H (22-30) mmol/L Glucose 468 H (74-99) mg/dL POC Glucose (mg/dL) 458 H (70-110) mg/dL Alkaline Phosphatase 216 H (38-126) U/L 03/24/24 03/24/24 Range/Units 06:45 07:45 MCHC (31.0-37.0) g/dL RDW (11.5-15.5) % Sodium (137-145) mmol/L Chloride (98-107) mmol/L Carbon Dioxide (22-30) mmol/L Glucose (74-99) mg/dL POC Glucose (mg/dL) 406 H 308 H (70-110) mg/dL Alkaline Phosphatase (38-126) U/L Assessment and Plan (1) Nausea & vomiting Narrative/Plan: 54-year-old poorly controlled diabetic with history of gastroparesis who has been recommended to for outpatient referral to advanced grocery bagger for evaluation and treatment of gastroparesis. Patient is noncompliant with outpatient follow-ups with endocrinology as well as GI strategic communications specialist. Nausea and vomiting secondary to blood sugars with admitting blood sugars in the 400s as well as gastroparesis. Will treat symptomatically. Patient has had multiple endoscopic evaluations. Will add on Reglan, continue with Zofran, IV fluids for hydration and patient can have diet as tolerated. Will defer management of tube feedings to her primary physician. Current Visit: No Status: Acute Code(s): R11.2 - NAUSEA WITH VOMITING, UNSPECIFIED SNOMED Code(s): 77500028 (2) Gastroparesis Current Visit: Yes Status: Acute Code(s): K31.84 - GASTROPARESIS SNOMED Code(s): 908790681 (3) Chronic abdominal pain Current Visit: No Status: Acute Priority: Medium Code(s): R10.9 - UNSPECIFIED ABDOMINAL PAIN; G89.29 - OTHER CHRONIC PAIN SNOMED Code(s): 791929925 Plan: 1. Continue symptomatic and supportive care 2. Continue antiemetics, will add Reglan 3. Protonix 40 mg daily for GI prophylaxis 4. Advance to chopped diet 5. Patient may have tube feedings, will defer to primary care physician 6. No plans for endoscopic evaluation 7. Recommend strict glycemic control 8. Outpatient follow-up as recommended previously for gastroparesis with GI specialist [facility] or [place] Thank you for this consultation, we will sign off at this time. Dr. Shakira Bear I agree with the dictator's note, documented as a scribe by Leigh Ordonez.
[2024-03-24] MEDS: METOCLOPRAMIDE 5 MG/ML 2 ML VIAL IM PRN (14:47)
[2024-03-24] MEDS: SCOPOLAMINE 1 MG/72 HR PATCH TRANSDERM SCH (14:47)
[2024-03-24] MEDS: hydrALAZINE HCL 20 MG/ML 1 ML VIAL IVP PRN (14:54)
[2024-03-24] MEDS: FOLIC ACID 1 MG TAB PO SCH (15:00)
[2024-03-24] MEDS: amLODIPine 5 MG TAB PO SCH (15:00)
[2024-03-24] MEDS: FAMOTIDINE 20 MG TAB PO SCH (15:00)
[2024-03-24] MEDS: INSULIN DETEMIR (LEVEMIR) 100 UNIT/ML SYR SQ SCH (15:00)
[2024-03-24] MEDS: FERROUS SULFATE 325 MG TAB PO SCH (15:00)
[2024-03-24] MEDS: methocarbamoL 500 MG TAB PO SCH (15:01)
[2024-03-24] MEDS: HYDROcodone/APAP 7.5-325MG 1 EACH TAB PO SCH (15:01)
[2024-03-24 15:59] LABS: ALT 26 U/L (4-34); AST 34 U/L (14-36); African American GFR (CKD) >90 (>60 ml/min/1.73 sqM); Albumin 3.3 g/dL (3.5-5.0); Albumin/Globulin Ratio 0.9; Alkaline Phosphatase 177 U/L (38-126); Anion Gap 8 mmol/L; Blood Urea Nitrogen 11 mg/dL (7-17); Calcium 8.5 mg/dL (8.4-10.2); Carbon Dioxide 31 mmol/L (22-30); Chloride 100 mmol/L (98-107); Globulin 3.8 g/dL; Glucose 256 mg/dL (74-99); Non-African American GFR(CKD) >90 (>60 ml/min/1.73 sqM); Potassium 3.3 mmol/L (3.5-5.1); Sodium 139 mmol/L (137-145); Total Bilirubin 0.5 mg/dL (0.2-1.3); Total Protein 7.1 g/dL (6.3-8.2)
[2024-03-24 16:45] LABS: C Reactive Protein <0.5 mg/dL (<1.0)
[2024-03-24 17:05] LABS: Glucose,Whole Blood 301 mg/dL (70-110)
[2024-03-24] MEDS ORDERED: PANTOPRAZOLE 40 MG TABLET PO SCH (17:30)
[2024-03-24] MEDS: METOCLOPRAMIDE 10 MG TAB PO SCH (17:54)
[2024-03-24] MEDS: INSULIN ASPART (NovoLOG) 100 UNIT/ML VIAL SQ SCH (17:56)
[2024-03-24] MEDS ORDERED: Potassium Replacement Protocol 1 EACH MISC MISCELLANE PRN (18:29)
[2024-03-24] MEDS: POTASSIUM CHLORIDE 10 MEQ in WATER FOR INJECTION 1 100ML.BAG IVPB SCH (19:34)
[2024-03-24 20:22] LABS: Glucose,Whole Blood 195 mg/dL (70-110)
[2024-03-24] MEDS: ALPRAZolam 0.25 MG TAB PO SCH (20:53)
[2024-03-24] MEDS: ONDANSETRON 4 MG TAB PO SCH (20:54)
[2024-03-24] MEDS: MIRTAZAPINE 15 MG TAB PO SCH (20:54)
--- NOTE | 2024-03-24 22:22 | P.CONS ---
History of Present Illness - Reason for Consult Consult date: 03/24/24 Infection Requesting physician: Dell Pike - Chief Complaint Abdominal pain and vomiting x 1 day - History of Present Illness Patient is a 54-year-old female with a past medical history significant for diabetes mellitus hypertension diabetic gastroparesis patient did have a J-tube for feeding because of gastroparesis and frequent vomiting patient was recently admitted to the hospital with the patient did have candidemia secondary to the PICC line which was discontinued on discharge from the hospital and the patient finish therapy with oral Diflucan patient mention she took her antifungal as advised patient now presenting to the hospital concerning for abdominal pain in this patient pain has been getting worse for the last few days patient describing the pain to be sharp colicky moderate intensity with associated nausea and vomiting denies having any diarrhea patient denies having any drainage from her G-tube site and denies high-grade fever on presentation to the hospital patient was afebrile and no fever have been recorded subsequently patient was tachycardic but not hypotensive or hypoxic and no need for supplemental oxygen patient did have white count of 6.0 creatinine 0.57 potassium is 3.8 hello enzymes are normal infectious he was consulted for possible infection with recent candidemia Review of Systems Positive point and negatives has been mentioned in the HPI, complete review of systems was performed and all other systems are negative 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 MDRO Source:: Urine VRE and ESBL, MRSA-ABD Past Surgical History: Cholecystectomy, Orthopedic Surgery, Tubal Ligation Additional Past Surgical History / Comment(s): rt shoulder, J tube placement Past Anesthesia/Blood Transfusion Reactions: No Reported Reaction Additional Past Anesthesia/Blood Transfusion Reaction / Comm: UNK FAMILY HX Smoking Status: Current every day smoker - Past Family History Father History Unknown: Yes Additional Family Medical History / Comment(s): unknown-adopted Mother History Unknown: Yes Additional Family Medical History / Comment(s): unknown- adopted Medications and Allergies Home Medications Medication Instructions Recorded Confirmed Type ALPRAZolam [Xanax] 0.25 mg PO BID 05/12/23 03/24/24 History Atorvastatin [Lipitor] 20 mg PO DAILY 05/12/23 03/24/24 History Insulin Lispro [humaLOG Kwikpen] See Protocol SQ ACHS 05/12/23 03/24/24 History Mirtazapine [Remeron] 30 mg PO HS 05/12/23 03/24/24 History Metoclopramide [Reglan] 10 mg PO ACHS 30 Days #120 tab 05/15/23 03/24/24 Rx Pantoprazole [Protonix] 40 mg PO AC-BID 30 Days #60 tab 05/21/23 03/24/24 Rx Folic Acid 1 mg PO DAILY 06/15/23 03/24/24 History HYDROcodone/APAP 7.5-325MG [[place] 1 tab PO TID 08/25/23 03/24/24 History 7.5-325] Ferrous Sulfate [Iron (65 MG 325 mg PO DAILY 12/09/23 03/24/24 History Elemental)] Insulin Glargine [Lantus Vial] 10 unit SQ DAILY 12/09/23 03/24/24 History amLODIPine [Norvasc] 5 mg PO DAILY 90 Days #90 tab 12/19/23 03/24/24 Rx Famotidine [Pepcid] 20 mg PO BID 30 Days #60 tab 01/18/24 03/24/24 Rx [place]-3/Dha/Epa/Fish Oil [Fish Oil 1 cap PO DAILY 02/21/24 03/24/24 History 1,000 mg Softgel] Ondansetron [Zofran] 4 mg PO BID 02/21/24 03/24/24 History Sennosides [Senokot] 8.6 mg PO BID 02/21/24 03/24/24 History methocarbamoL [Robaxin] 250 mg PO QID 02/21/24 03/24/24 History Fluconazole [Diflucan] 400 mg PO DAILY 14 Days #14 tab 03/10/24 03/24/24 Rx Loperamide [Imodium] 2 mg PO QID PRN cap 03/10/24 03/24/24 Rx Artificial Tears-Hypromellose 1 drop BOTH EYES QID PRN 03/19/24 03/24/24 History [Artificial Tear Drops] Scopolamine [Scopolamine 1 MG/72 1 patch TRANSDERM Q72H 03/19/24 03/24/24 History HR patch] Allergies Allergy/AdvReac Type Severity Reaction Status Date / Time fentanyl AdvReac "wobbly" Verified 03/24/24 06:31 Physical Exam Vitals: Vital Signs Temp Pulse Pulse Resp BP BP Pulse Ox 03/24/24 07:40 97.6 F 101 H 17 175/92 98 03/24/24 07:17 70 14 128/70 95 03/24/24 06:46 96 14 154/89 98 03/24/24 05:09 97.6 F 107 H 15 132/87 99 Intake and Output 03/23/24 03/24/24 03/24/24 22:59 06:59 14:59 Other: Voiding Method Toilet Diaper Incontinent Weight 34.019 kg 34.019 kg GENERAL DESCRIPTION: Middle-aged female lying in bed, no distress. No tachypnea or accessory muscle of respiration use. HEENT: Shows Pallor , no scleral icterus. Oral mucous membrane is dry. No pharyngeal erythema or thrush NECK: Trachea central, no thyromegaly. LUNGS: Unlabored breathing. Clear to auscultation anteriorly. No wheeze or crackle. HEART: S1, S2, regular rate and rhythm. No loud murmur ABDOMEN: Soft, mild tenderness , no guarding or rigidity, EXTREMITIES: No edema of feet. SKIN: No rash, no masses palpable. NEUROLOGICAL: The patient is awake, alert, oriented x3, mood and affect normal. Results CBC & Chem 7: 03/24/24 05:15 03/24/24 15:16 Labs: Abnormal Lab Results - Last 24 Hours (Table) 03/24/24 03/24/24 03/24/24 Range/Units 05:10 05:15 05:15 MCHC 30.9 L (31.0-37.0) g/dL RDW 16.3 H (11.5-15.5) % Sodium 134 L (137-145) mmol/L Chloride 92 L (98-107) mmol/L Carbon Dioxide 39 H (22-30) mmol/L Glucose 468 H (74-99) mg/dL POC Glucose (mg/dL) 458 H (70-110) mg/dL Alkaline Phosphatase 216 H (38-126) U/L 03/24/24 03/24/24 03/24/24 Range/Units 06:45 07:45 12:16 MCHC (31.0-37.0) g/dL RDW (11.5-15.5) % Sodium (137-145) mmol/L Chloride (98-107) mmol/L Carbon Dioxide (22-30) mmol/L Glucose (74-99) mg/dL POC Glucose (mg/dL) 406 H 308 H 188 H (70-110) mg/dL Alkaline Phosphatase (38-126) U/L Assessment and Plan (1) Infection Current Visit: Yes Status: Acute Code(s): B99.9 - UNSPECIFIED INFECTIOUS DISEASE SNOMED Code(s): 58814807 (2) Candidemia Current Visit: Yes Status: Acute Code(s): B37.7 - CANDIDAL SEPSIS SNOMED Code(s): 901040156 Plan: 1patient is a 54-year-old female who was recently mated at this facility and did have a candidemia related to the PICC line which was discontinued and the patient was discharged on oral Diflucan with the patient mention she has completed now presented to hospital with nausea vomiting and abdominal pain possibly to underlying diabetic gastroparesis patient not running any fever did have normal white count clinic suspicious low for underlying infection 2-we will check a blood culture to make sure no evidence of any recurrence of her candidemia and check inflammatory markers 3-we will hold on adding any empiric antifungal or antibiotics at this point We will follow on clinical condition and cultures to further adjust medication if needed Thank you for this consultation we will follow the patient along with you Dictation was produced using [employer] dictation software. please excuse any grammatical, word or spelling errors. Time with Patient: Greater than 30
[2024-03-24] MEDS: METOCLOPRAMIDE 5 MG/ML 2 ML VIAL IVP PRN (23:14)
[2024-03-25] MEDS: ATORVASTATIN 20 MG TAB PO SCH (08:11)
--- NOTE | 2024-03-25 09:26 | HP ---
HISTORY AND PHYSICAL HISTORY OF PRESENT ILLNESS: Lesa came in with progressive nausea, vomiting, actively vomiting this afternoon. She looks weak, fatigued, and malnourished. She had a G-tube and gastroparesis. She came to the hospital with multiple admissions for nausea, vomiting. Her abdominal pain has been getting worse. She had a G-tube infection on last admission. She is tachycardic on admission, but not hypotensive or hypoxemic. Diabetes mellitus, hypertension, musculoskeletal disorder, COPD, neuropathy, urine VRE. HOME MEDICATIONS: Reviewed. ALLERGIES: Fentanyl. PHYSICAL EXAMINATION: VITAL SIGNS: Reviewed. Pulse 101, temp 97.6, respirations 16 to 18, blood pressure is low 70s over 90s. CARDIOVASCULAR: S1, S2. LUNGS: Decreased breath sounds. GENERAL: She is thin, cachectic. She is actively vomiting. GI: Diffuse tenderness. HEMATOLOGY: Negative Homans. NEUROLOGIC: A and O x3. SKIN: Candidemia last admission. It can be related to prior PICC line. Discharged on Diflucan with worsening nausea, vomiting, and possibly another infection. Blood cultures. Empiric antibiotics per Dr. Brunson. Prognosis guarded. MMODL / IJN: [id number] /
[2024-03-25 09:52] LABS: ALT 20 U/L (4-34); AST 35 U/L (14-36); African American GFR (CKD) >90 (>60 ml/min/1.73 sqM); Albumin 2.5 g/dL (3.5-5.0); Albumin/Globulin Ratio 0.8; Alkaline Phosphatase 121 U/L (38-126); Anion Gap 4 mmol/L; Blood Urea Nitrogen 9 mg/dL (7-17); Calcium 8.2 mg/dL (8.4-10.2); Carbon Dioxide 28 mmol/L (22-30); Chloride 108 mmol/L (98-107); Globulin 3.3 g/dL; Glucose 85 mg/dL (74-99); Non-African American GFR(CKD) >90 (>60 ml/min/1.73 sqM); Potassium 3.2 mmol/L (3.5-5.1); Sodium 140 mmol/L (137-145); Total Bilirubin 0.3 mg/dL (0.2-1.3); Total Protein 5.8 g/dL (6.3-8.2)
[2024-03-25 10:12] LABS: Anisocytosis Slight; Basophils # (A) 0.1 k/uL (0-0.2); Basophils % (A) 1 %; Eosinophils # (A) 0.4 k/uL (0-0.7); Eosinophils % (A) 4 %; HCT 31.3 % (34.0-46.0); Hypochromasia Marked; Lymphocytes # (A) 1.8 k/uL (1.0-4.8); Lymphocytes % (A) 20 %; MCH 29.3 pg (25.0-35.0); MCHC 31.3 g/dL (31.0-37.0); MCV 93.5 fL (80.0-100.0); Monocytes # (A) 0.5 k/uL (0-1.0); Monocytes % (A) 6 %; Neutrophils # (A) 6.2 k/uL (1.3-7.7); Neutrophils % (A) 69 %; Platelet Count 411 k/uL (150-450); RBC 3.35 m/uL (3.80-5.40); RDW 16.7 % (11.5-15.5)
[2024-03-25 10:13] LABS: HGB 9.8 gm/dL (11.4-16.0)
[2024-03-25 12:12] LABS: Glucose,Whole Blood 43 mg/dL (70-110)
[2024-03-25 12:12] LABS: Glucose,Whole Blood 43 mg/dL (70-110)
[2024-03-25 12:40] LABS: Glucose,Whole Blood 39 mg/dL (70-110)
[2024-03-25] MEDS: DEXTROSE 50% SYRINGE 50 ML IVP PRN (12:43)
[2024-03-25 12:55] LABS: Glucose,Whole Blood 157 mg/dL (70-110)
--- NOTE | 2024-03-25 15:30 | P.PN ---
Subjective Progress Note Date: 03/25/24 Principal diagnosis: Nausea and vomiting This is a pleasant 54-year-old female who is frequently admitted to the hospital with same complaints of abdominal pain, nausea and vomiting. She is diabetic with uncontrolled blood sugars and gastroparesis. She has had multiple upper e ndoscopies she has had colonoscopies. She has been seen multiple times by general surgery and gastroenterology. She presents back with same symptoms of nausea vomiting and abdominal pain. Lace placed by Dr. David Roe in December of this year. States that she used does tube feedings at home and the 400s. Gastroenterology can no pain. Patient has been to follow-up with endocrinology several times [facility] or [place] for gastroparesis it has yet to follow-up for that as well. Last upper endoscopy done with Dr. Garzon in December 2023 with findings of gastritis. Colonoscopy was in September 2023 significant for colon polyps status post polypectomy. 03/25/2024 Patient seen and examined today as a follow-up. States she was still having nausea and vomiting. She is currently NPO. She was seen by dietitian, although no orders yet for tube feedings. Blood sugars are still elevated. Objective - Vital Signs Vital signs: Vital Signs Temp 98.2 F 03/25/24 12:23 Pulse 98 03/25/24 12:23 Resp 16 03/25/24 12:23 BP 122/74 03/25/24 12:23 Pulse Ox 91 L 03/25/24 12:23 FiO2 Intake & Output 03/24/24 03/25/24 03/25/24 18:59 06:59 18:59 Intake Total 218 Balance 218 Weight 34.019 kg 36.4 kg Intake: Oral 218 Other: Voiding Method Toilet Toilet Toilet Diaper Diaper Diaper Incontinent Incontinent Incontinent # Voids 1 0 # Emeses 4 1 - Exam General appearance: The patient is alert, oriented, appears in no acute distress. HET: Head is normocephalic and atraumatic. Conjunctiva pink. Sclera anicteric. Neck: Supple without lymphadenopathy. Abdomen: Soft, thin, diffuse tenderness, nondistended. Feeding tube in place. No guarding or rigidity. Extremities: Normal skin color and turgor. No pedal edema Skin: No rashes, no jaundice Neurological: No focal deficits. Alert and oriented. - Labs CBC & Chem 7: 03/25/24 09:18 03/25/24 12:48 Labs: Abnormal Lab Results - Last 24 Hours (Table) 03/24/24 03/24/24 03/24/24 Range/Units 05:15 15:16 17:04 RBC (3.80-5.40) m/uL Hgb (11.4-16.0) gm/dL Hct (34.0-46.0) % RDW (11.5-15.5) % Potassium 3.3 L (3.5-5.1) mmol/L Chloride (98-107) mmol/L Carbon Dioxide 31 H (22-30) mmol/L Glucose 256 H (74-99) mg/dL POC Glucose (mg/dL) 301 H (70-110) mg/dL Hemoglobin A1c 11.1 H (<=6.0) % Calcium (8.4-10.2) mg/dL Alkaline Phosphatase 177 H (38-126) U/L Total Protein (6.3-8.2) g/dL Albumin 3.3 L (3.5-5.0) g/dL 03/24/24 03/25/24 03/25/24 Range/Units 20:20 09:18 09:18 RBC 3.35 L (3.80-5.40) m/uL Hgb 9.8 L D (11.4-16.0) gm/dL Hct 31.3 L (34.0-46.0) % RDW 16.7 H (11.5-15.5) % Potassium 3.2 L (3.5-5.1) mmol/L Chloride 108 H (98-107) mmol/L Carbon Dioxide (22-30) mmol/L Glucose (74-99) mg/dL POC Glucose (mg/dL) 195 H (70-110) mg/dL Hemoglobin A1c (<=6.0) % Calcium 8.2 L (8.4-10.2) mg/dL Alkaline Phosphatase (38-126) U/L Total Protein 5.8 L (6.3-8.2) g/dL Albumin 2.5 L (3.5-5.0) g/dL 03/25/24 03/25/24 03/25/24 Range/Units 12:10 12:11 12:38 RBC (3.80-5.40) m/uL Hgb (11.4-16.0) gm/dL Hct (34.0-46.0) % RDW (11.5-15.5) % Potassium (3.5-5.1) mmol/L Chloride (98-107) mmol/L Carbon Dioxide (22-30) mmol/L Glucose (74-99) mg/dL POC Glucose (mg/dL) 43 L* 43 L* 39 L* (70-110) mg/dL Hemoglobin A1c (<=6.0) % Calcium (8.4-10.2) mg/dL Alkaline Phosphatase (38-126) U/L Total Protein (6.3-8.2) g/dL Albumin (3.5-5.0) g/dL 03/25/24 03/25/24 Range/Units 12:48 12:53 RBC (3.80-5.40) m/uL Hgb (11.4-16.0) gm/dL Hct (34.0-46.0) % RDW (11.5-15.5) % Potassium (3.5-5.1) mmol/L Chloride (98-107) mmol/L Carbon Dioxide (22-30) mmol/L Glucose 177 H (74-99) mg/dL POC Glucose (mg/dL) 157 H (70-110) mg/dL Hemoglobin A1c (<=6.0) % Calcium (8.4-10.2) mg/dL Alkaline Phosphatase (38-126) U/L Total Protein (6.3-8.2) g/dL Albumin (3.5-5.0) g/dL Assessment and Plan (1) Nausea & vomiting Narrative/Plan: 54-year-old poorly controlled diabetic with history of gastroparesis who has been recommended to for outpatient referral to advanced blister rust eradicator for evaluation and treatment of gastroparesis. Patient is noncompliant with outpatient follow-ups with endocrinology as well as GI surgical garment assembler. Nausea and vomiting secondary to blood sugars with admitting blood sugars in the 400s as well as gastroparesis. Will treat symptomatically. Patient has had multiple endoscopic evaluations. Will add on Reglan, continue with Zofran, IV fluids for hydration and patient can have diet as tolerated. Will defer management of tube feedings to her primary physician. Current Visit: No Status: Acute Code(s): R11.2 - NAUSEA WITH VOMITING, UNSPECIFIED SNOMED Code(s): 46503246 (2) Gastroparesis Current Visit: Yes Status: Acute Code(s): K31.84 - GASTROPARESIS SNOMED Code(s): 108299877 (3) Chronic abdominal pain Current Visit: No Status: Acute Priority: Medium Code(s): R10.9 - UNSPECIFIED ABDOMINAL PAIN; G89.29 - OTHER CHRONIC PAIN SNOMED Code(s): 701870423 Plan: 1. Continue symptomatic and supportive care 2. Continue antiemetics 3. Protonix 40 mg daily for GI prophylaxis, Pepcid 20 mg in the evening 4. Diet as tolerated 5. Patient may have tube feedings, will defer to primary care physician 6. No plans for endoscopic evaluation 7. Recommend strict glycemic control 8. Outpatient follow-up as recommended previously for gastroparesis with GI specialist [facility] or [place] Thank you for this consultation, we will sign off at this time. Dr. Shakira Bear I agree with the dictator's note, documented as a scribe by Leigh Ordonez.
[2024-03-25] MEDS ORDERED: POTASSIUM CHLORIDE ER 20 MEQ TAB.ER PO SCH (17:00)
[2024-03-25] MEDS: POTASSIUM CHLORIDE ER 20 MEQ TAB.ER PO SCH (17:01)
[2024-03-25 17:26] LABS: Glucose,Whole Blood 123 mg/dL (70-110)
[2024-03-25 21:41] LABS: Glucose,Whole Blood 61 mg/dL (70-110)
[2024-03-25] MEDS: FAMOTIDINE 20 MG TAB PO SCH (21:53)
[2024-03-25 22:21] LABS: Glucose,Whole Blood 158 mg/dL (70-110)
--- NOTE | 2024-03-26 04:05 | PN ---
PROGRESS NOTE SUBJECTIVE: Lesa Patterson came in with nausea and vomiting, severe nature. Consult with GI as well as Infectious Disease, on multiple medicines for antinausea. She has severe gastroparesis. Possible abdominal infection from prior, where she had yeast infection in her blood, she is on multiple medicines for she looks weak, fatigued. OBJECTIVE: SKIN: Dry. HEART: Regular rate and rhythm. LUNGS: Clear. ABDOMEN: Soft. PEG tube with some discharge. EXTREMITIES: Minimal edema. NEUROLOGIC: Cranial nerves intact. Gastroparesis, outpatient referral to advanced doorperson. We have been trying to do this for months. Sugars are in the 400s when she comes in, it came down immediately with treatment. IV hydrations, tube feedings, gastroparesis. outpatient. Prognosis guarded. Continue current treatment. MMODL / IJN: [id number] /
[2024-03-26 07:03] VITALS: RESP 15
[2024-03-26 07:25] LABS: Glucose,Whole Blood 192 mg/dL (70-110)
--- NOTE | 2024-03-26 08:36 | CDI ---
Documentation Clarification Form Date: 03/26/2024 From: Kandy Loera RN CCDS Phone: [phone] Admit Date: 03/24/2024 06:11:00 AM Patient Name: Lesa Patterson Visit Number: [id number] Discharge Date: ATTENTION: The Clinical Documentation Specialists (CDI) and [facility] Coding Staff appreciate your assistance in clarifying documentation. Please respond to the clarification below the line at the bottom and electronically sign. The CDI & [facility] Coding staff will review the response and follow-up if needed. Please note: Queries are made part of the Legal Health Record. If you have any questions, please contact the author of this message via ITS. Doctor/Provider: Dell Pike MD: The patient is described as malnourished in the H&P 03/25. Additional clarification regarding the severity of malnutrition is requested. History/Risk Factors: 54-year-old female with a history of DM2 and gastroparesis who presents with progressive nausea and vomiting Clinical Indicators: 03/25 H&P, HPI: "She looks weak, fatigued, and malnourished. She had a G-tube and gastroparesis." 03/24 BMI: 15.1 Height: 4ft 11in Weight: 34.019kg 03/24 RD Consult Assessment: "Body Mass Index Classification: Underweight as related to poor nutritional intake, diet intolerance, failure for weight gain." 03/24 x2, 03/25 Total Protein: 7.6, 7.1, 5.8 Albumin: 3.5, 3.3, 2.5 Treatment: RD recommends Low fiber, Low fat, Consistent CHO diet for gastroparesis, start Enteral Nutrition as able, Vital 1.2, as patient had on admission Please clarify the severity of malnutrition, if known: [ ] Mild Protein-Calorie Malnutrition [ ] Moderate Protein-Calorie Malnutrition [ ] Severe Protein-Calorie Malnutrition [ ] Malnutrition, unknown severity [ ] Other condition, please specify [ ] Unable to Determine MTDD
[2024-03-26 09:12] LABS: ALT 17 U/L (8-44); AST 24 U/L (13-35); Albumin 2.4 g/dL (3.8-4.9); Albumin/Globulin Ratio 0.92 Ratio (1.60-3.17); Alkaline Phosphatase 125 U/L (41-126); BUN/Creat Ratio 12.71 Ratio (12.00-20.00); Blood Urea Nitrogen 8.9 mg/dL (9.0-27.0); Calcium 7.7 mg/dL (8.7-10.3); Carbon Dioxide 25.5 mmol/L (21.6-31.8); Chloride 111 mmol/L (96-109); Globulin 2.6 g/dL (1.6-3.3); Glucose 163 mg/dL (70-110); Potassium 4.8 mmol/L (3.5-5.5); Sodium 143 mmol/L (135-145); Total Bilirubin <0.2 mg/dL (0.3-1.2)
--- NOTE | 2024-03-26 09:13 | P.PN ---
Subjective Progress Note Date: 03/25/24 Principal diagnosis: Reason for follow-up is infection with recent candidemia Patient is a 54-year-old female with a past medical history significant for diabetes mellitus hypertension diabetic gastroparesis patient did have a J-tube for feeding because of gastroparesis and frequent vomiting patient was recently admitted to the hospital with the patient did have candidemia secondary to the PICC line which was discontinued, patient completed oral Diflucan now being readmitted to the hospital concerning for abdominal pain and vomiting ID consulted concerning for infection. On today's evaluation that is 03/25/2024, Patient is afebrile patient is currently on room air and denies having any shortness of breath, the patient denies any chest pain or cough, the patient still complaining of nausea vomiting and abdominal discomfort no bowel movement. Patient did have a white count of 9.0 creatinine 0.61 blood cultures are pending Objective - Vital Signs Vital signs: Vital Signs Temp 98.2 F 03/25/24 12:23 Pulse 98 03/25/24 12:23 Resp 16 03/25/24 12:23 BP 122/74 03/25/24 12:23 Pulse Ox 91 L 03/25/24 12:23 FiO2 Intake & Output 03/24/24 03/25/24 03/25/24 18:59 06:59 18:59 Intake Total 218 Balance 218 Weight 34.019 kg 36.4 kg Intake: Oral 218 Other: Voiding Method Toilet Toilet Toilet Diaper Diaper Diaper Incontinent Incontinent Incontinent # Voids 1 0 # Emeses 4 1 - Exam GENERAL DESCRIPTION: Middle-age female lying in bed in no distress RESPIRATORY SYSTEM: Unlabored breathing , decreased breath sounds at bases HEART: S1 S2 regular rate and rhythm , ABDOMEN: Soft , mild tenderness EXTREMITIES: No edema feet - Labs CBC & Chem 7: 03/25/24 09:18 03/25/24 12:48 Labs: Abnormal Lab Results - Last 24 Hours (Table) 03/24/24 03/24/24 03/24/24 Range/Units 05:15 15:16 17:04 RBC (3.80-5.40) m/uL Hgb (11.4-16.0) gm/dL Hct (34.0-46.0) % RDW (11.5-15.5) % Potassium 3.3 L (3.5-5.1) mmol/L Chloride (98-107) mmol/L Carbon Dioxide 31 H (22-30) mmol/L Glucose 256 H (74-99) mg/dL POC Glucose (mg/dL) 301 H (70-110) mg/dL Hemoglobin A1c 11.1 H (<=6.0) % Calcium (8.4-10.2) mg/dL Alkaline Phosphatase 177 H (38-126) U/L Total Protein (6.3-8.2) g/dL Albumin 3.3 L (3.5-5.0) g/dL 03/24/24 03/25/24 03/25/24 Range/Units 20:20 09:18 09:18 RBC 3.35 L (3.80-5.40) m/uL Hgb 9.8 L D (11.4-16.0) gm/dL Hct 31.3 L (34.0-46.0) % RDW 16.7 H (11.5-15.5) % Potassium 3.2 L (3.5-5.1) mmol/L Chloride 108 H (98-107) mmol/L Carbon Dioxide (22-30) mmol/L Glucose (74-99) mg/dL POC Glucose (mg/dL) 195 H (70-110) mg/dL Hemoglobin A1c (<=6.0) % Calcium 8.2 L (8.4-10.2) mg/dL Alkaline Phosphatase (38-126) U/L Total Protein 5.8 L (6.3-8.2) g/dL Albumin 2.5 L (3.5-5.0) g/dL 03/25/24 03/25/24 03/25/24 Range/Units 12:10 12:11 12:38 RBC (3.80-5.40) m/uL Hgb (11.4-16.0) gm/dL Hct (34.0-46.0) % RDW (11.5-15.5) % Potassium (3.5-5.1) mmol/L Chloride (98-107) mmol/L Carbon Dioxide (22-30) mmol/L Glucose (74-99) mg/dL POC Glucose (mg/dL) 43 L* 43 L* 39 L* (70-110) mg/dL Hemoglobin A1c (<=6.0) % Calcium (8.4-10.2) mg/dL Alkaline Phosphatase (38-126) U/L Total Protein (6.3-8.2) g/dL Albumin (3.5-5.0) g/dL 03/25/24 Range/Units 12:53 RBC (3.80-5.40) m/uL Hgb (11.4-16.0) gm/dL Hct (34.0-46.0) % RDW (11.5-15.5) % Potassium (3.5-5.1) mmol/L Chloride (98-107) mmol/L Carbon Dioxide (22-30) mmol/L Glucose (74-99) mg/dL POC Glucose (mg/dL) 157 H (70-110) mg/dL Hemoglobin A1c (<=6.0) % Calcium (8.4-10.2) mg/dL Alkaline Phosphatase (38-126) U/L Total Protein (6.3-8.2) g/dL Albumin (3.5-5.0) g/dL Assessment and Plan (1) Infection Current Visit: Yes Status: Acute Code(s): B99.9 - UNSPECIFIED INFECTIOUS DISEASE SNOMED Code(s): 82898257 (2) Candidemia Current Visit: Yes Status: Acute Code(s): B37.7 - CANDIDAL SEPSIS SNOMED Code(s): 527082059 Plan: 1patient is a 54-year-old female who was recently mated at this facility and did have a candidemia related to the PICC line which was discontinued and the patient was discharged on oral Diflucan with the patient mention she has completed now presented to hospital with nausea vomiting and abdominal pain possibly to underlying diabetic gastroparesis patient not running any fever did have normal white count clinic suspicious low for underlying infection 2-blood cultures have been obtained which are currently pending we will monitor the patient closely off antifungal or antibiotic Dictation was produced using [employer] dictation software. please excuse any grammatical, word or spelling errors. Time with Patient: Less than 30
[2024-03-26 10:13] LABS: Basophils # (A) 0.05 X 10*3/uL (0.00-0.10); Basophils % (A) 0.6 %; Eosinophils % (A) 3.9 %; HCT 28.5 % (37.2-46.3); HGB 8.6 g/dL (12.0-15.0); Lymphocytes # (A) 2.14 X 10*3/uL (0.90-5.00); Lymphocytes % (A) 27.8 %; MCH 29.1 pg (27.0-32.0); MCHC 30.2 g/dL (32.0-37.0); MCV 96.3 FL (80.0-97.0); Mean Platelet Volume 10.8 FL (9.5-12.2); Monocytes # (A) 0.49 X 10*3/uL (0.20-1.00); Monocytes % (A) 6.4 %; NRBC Per 100 WBC 0 X 10*3/uL (0.00-0.01); Platelet Count 363 X 10*3/uL (140-440); RBC 2.96 X 10*6/uL (4.10-5.20); RBC Morphology Normal (Normal); RDW 16.5 % (11.5-14.5)
[2024-03-26 12:14] LABS: Glucose,Whole Blood 255 mg/dL (70-110)
[2024-03-26 13:59] VITALS: BP 129/78; PULSE 104; TEMP 98.4
[2024-03-26 17:10] LABS: Glucose,Whole Blood 260 mg/dL (70-110)
--- NOTE | 2024-03-29 22:46 | PN ---
PROGRESS NOTE Severe protein-calorie malnutrition. MMODL / IJN: [id number] /
--- NOTE | 2024-04-02 22:21 | P.PN ---
Subjective Progress Note Date: 03/26/24 Principal diagnosis: Reason for follow-up is infection with recent candidemia Patient is a 54-year-old female with a past medical history significant for diabetes mellitus hypertension diabetic gastroparesis patient did have a J-tube for feeding because of gastroparesis and frequent vomiting patient was recently admitted to the hospital with the patient did have candidemia secondary to the PICC line which was discontinued, patient completed oral Diflucan now being readmitted to the hospital concerning for abdominal pain and vomiting ID consulted concerning for infection. On today's evaluation that is 03/26/2024, patient has been afebrile, patient is breathing comfortably and is currently on room air, patient denies having any significant cough no chest pain, patient still complaining of nausea vomiting abdominal pain no diarrhea. Patient white count 7.70, creatinine 0.7 culture still pending Objective - Vital Signs Vital signs: Vital Signs Temp 98.4 F 03/26/24 13:58 Pulse 104 H 03/26/24 13:58 Resp 15 03/26/24 13:58 BP 129/78 03/26/24 13:58 Pulse Ox 97 03/26/24 13:58 FiO2 Intake & Output 03/25/24 03/26/24 03/26/24 18:59 06:59 18:59 Weight 36.4 kg 29.5 kg Other: Voiding Method Toilet Toilet Diaper Diaper Incontinent Incontinent # Voids 1 - Exam GENERAL DESCRIPTION: Middle-age female lying in bed in no distress RESPIRATORY SYSTEM: Unlabored breathing , decreased breath sounds at bases HEART: S1 S2 regular rate and rhythm , ABDOMEN: Soft , mild tenderness EXTREMITIES: No edema feet - Labs CBC & Chem 7: 03/26/24 03:35 03/26/24 03:35 Labs: Abnormal Lab Results - Last 24 Hours (Table) 03/25/24 03/25/24 03/25/24 Range/Units 17:25 21:40 22:20 RBC (4.10-5.20) X 10*6/uL Hgb (12.0-15.0) g/dL Hct (37.2-46.3) % MCHC (32.0-37.0) g/dL RDW (11.5-14.5) % Chloride (96-109) mmol/L BUN (9.0-27.0) mg/dL Glucose (70-110) mg/dL POC Glucose (mg/dL) 123 H 61 L 158 H (70-110) mg/dL Calcium (8.7-10.3) mg/dL Total Bilirubin (0.3-1.2) mg/dL Total Protein (6.2-8.2) g/dL Albumin (3.8-4.9) g/dL Albumin/Globulin Ratio (1.60-3.17) Ratio 03/26/24 03/26/24 03/26/24 Range/Units 03:35 03:35 07:24 RBC 2.96 L (4.10-5.20) X 10*6/uL Hgb 8.6 L (12.0-15.0) g/dL Hct 28.5 L (37.2-46.3) % MCHC 30.2 L (32.0-37.0) g/dL RDW 16.5 H (11.5-14.5) % Chloride 111 H (96-109) mmol/L BUN 8.9 L (9.0-27.0) mg/dL Glucose 163 H (70-110) mg/dL POC Glucose (mg/dL) 192 H (70-110) mg/dL Calcium 7.7 L (8.7-10.3) mg/dL Total Bilirubin <0.2 L (0.3-1.2) mg/dL Total Protein 5.0 L (6.2-8.2) g/dL Albumin 2.4 L (3.8-4.9) g/dL Albumin/Globulin Ratio 0.92 L (1.60-3.17) Ratio 03/26/24 Range/Units 12:12 RBC (4.10-5.20) X 10*6/uL Hgb (12.0-15.0) g/dL Hct (37.2-46.3) % MCHC (32.0-37.0) g/dL RDW (11.5-14.5) % Chloride (96-109) mmol/L BUN (9.0-27.0) mg/dL Glucose (70-110) mg/dL POC Glucose (mg/dL) 255 H (70-110) mg/dL Calcium (8.7-10.3) mg/dL Total Bilirubin (0.3-1.2) mg/dL Total Protein (6.2-8.2) g/dL Albumin (3.8-4.9) g/dL Albumin/Globulin Ratio (1.60-3.17) Ratio Microbiology - Last 24 Hours (Table) 03/24/24 16:45 Blood Culture - Preliminary Blood Assessment and Plan (1) Infection Current Visit: Yes Status: Acute Code(s): B99.9 - UNSPECIFIED INFECTIOUS DISEASE SNOMED Code(s): 87509659 (2) Candidemia Current Visit: Yes Status: Acute Code(s): B37.7 - CANDIDAL SEPSIS SNOMED Code(s): 173662351 Plan: 1patient is a 54-year-old female who was recently mated at this facility and did have a candidemia related to the PICC line which was discontinued and the patient was discharged on oral Diflucan with the patient mention she has completed now presented to hospital with nausea vomiting and abdominal pain possibly to underlying diabetic gastroparesis patient not running any fever did have normal white count clinic suspicious low for underlying infection 2-blood cultures currently pending the patient remains to be afebrile did have normal white count hence will monitor closely off antibiotic/antifungal therapy Dictation was produced using [employer] dictation software. please excuse any grammatical, word or spelling errors. Time with Patient: Less than 30
== END 2024-03-26 18:33 | disposition home or self-care (01) | DRG 73 ==
LOC: EC 05:07 → 5NMEDONC 06:11
PROVIDERS: ADMIT Family Medicine; ATTEND Family Medicine
DX: E11.43 Type 2 diabetes mellitus with diabetic autonomic (poly)neuropathy (principal); E43 Unspecified severe protein-calorie malnutrition; Z68.1 Body mass index [BMI] 19.9 or less, adult; E11.42 Type 2 diabetes mellitus with diabetic polyneuropathy; E11.65 Type 2 diabetes mellitus with hyperglycemia; I10 Essential (primary) hypertension; J44.9 Chronic obstructive pulmonary disease, unspecified; K31.84 Gastroparesis; F17.210 Nicotine dependence, cigarettes, uncomplicated; K29.70 Gastritis, unspecified, without bleeding; F41.9 Anxiety disorder, unspecified; Z86.0100 Personal history of colon polyps, unspecified; Z79.4 Long term (current) use of insulin; Z79.899 Other long term (current) drug therapy; Z91.199 Patient's noncompliance with other medical treatment and regimen due to unspecified reason
CPT/HCPCS: 36415; 74018; 80053; 82947; 83036; 83690; 85025; 86140; 87040; 87077; 87086; 87186; 93005; 96361; 96374; 96375; 99285

== ENCOUNTER 2024-05-10 10:28 | Inpatient (IN) | payer MEDICARE ==
--- NOTE | 2024-05-10 10:39 | ED ---
General Adult HPI - General Stated complaint: Abd Pain Time Seen by Provider: 05/10/24 10:30 Source: patient, EMS, RN notes reviewed Mode of arrival: EMS Limitations: no limitations - History of Present Illness Initial comments: Patient is a 54-year-old female present to the emergency department with concerns for nausea vomiting abdominal discomfort. Onset of symptoms was a few days ago. Patient has been vomiting multiple times and decreased oral intake. No appetite. Patient has history of similar symptoms previously associated with gastroparesis. Patient has abdominal discomfort also similar to her previous gastroparesis. No significant diarrhea or constipation. No fever. Blood sugar has been running around 300. - Related Data Home Medications Medication Instructions Recorded Confirmed ALPRAZolam [Xanax] 0.25 mg PO BID 05/12/23 03/24/24 Atorvastatin [Lipitor] 20 mg PO DAILY 05/12/23 03/24/24 Insulin Lispro [humaLOG Kwikpen] See Protocol SQ ACHS 05/12/23 03/24/24 Mirtazapine [Remeron] 30 mg PO HS 05/12/23 03/24/24 Folic Acid 1 mg PO DAILY 06/15/23 03/24/24 HYDROcodone/APAP 7.5-325MG [[place] 1 tab PO TID 08/25/23 03/24/24 7.5-325] Ferrous Sulfate [Iron (65 MG 325 mg PO DAILY 12/09/23 03/24/24 Elemental)] Insulin Glargine [Lantus Vial] 10 unit SQ DAILY 12/09/23 03/24/24 Ondansetron [Zofran] 4 mg PO BID 02/21/24 03/24/24 methocarbamoL [Robaxin] 250 mg PO QID 02/21/24 03/24/24 Artificial Tears-Hypromellose 1 drop BOTH EYES QID PRN 03/19/24 03/24/24 [Artificial Tear Drops] Scopolamine [Scopolamine 1 MG/72 1 patch TRANSDERM Q72H 03/19/24 03/24/24 HR patch] Previous Rx's Medication Instructions Recorded Metoclopramide [Reglan] 10 mg PO ACHS 30 Days #120 tab 05/15/23 amLODIPine [Norvasc] 5 mg PO DAILY 90 Days #90 tab 12/19/23 Famotidine [Pepcid] 20 mg PO BID 30 Days #60 tab 01/18/24 Loperamide [Imodium] 2 mg PO QID PRN cap 03/10/24 Allergies Allergy/AdvReac Type Severity Reaction Status Date / Time fentanyl AdvReac "wobbly" Verified 03/24/24 06:31 Review of Systems ROS Statement: Those systems with pertinent positive or pertinent negative responses have been documented in the HPI. ROS Other: All systems not noted in ROS Statement are negative. Constitutional: Denies: fever Eyes: Denies: eye pain ENT: Denies: ear pain Cardiovascular: Denies: chest pain Gastrointestinal: Reports: as per HPI, abdominal pain, nausea, vomiting Past Medical History Past Medical History: Diabetes Mellitus, Hypertension, Musculoskeletal Disorder Additional Past Medical History / Comment(s): FREQ NAUSEA, PAINFUL RT SHOULDER "FROZEN SHOULDER", NEUROPATHY PORFIRIO LEGS and hands, Blood pressures can run high History of Any Multi-Drug Resistant Organisms: ESBL, MRSA, VRE Date of last positivie culture/infection: 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;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 MDRO Source:: Urine VRE and ESBL, MRSA-ABD Past Surgical History: Cholecystectomy, Orthopedic Surgery, Tubal Ligation Additional Past Surgical History / Comment(s): rt shoulder, J tube placement Past Anesthesia/Blood Transfusion Reactions: No Reported Reaction Additional Past Anesthesia/Blood Transfusion Reaction / Comment(s): UNK FAMILY HX Smoking Status: Current every day smoker - Past Family History Father History Unknown: Yes Additional Family Medical History / Comment(s): unknown-adopted Mother History Unknown: Yes Additional Family Medical History / Comment(s): unknown- adopted General Exam Limitations: no limitations General appearance: alert, in no apparent distress Head exam: Present: normocephalic Eye exam: Present: normal appearance ENT exam: Present: mucous membranes dry Neck exam: Present: normal inspection Respiratory exam: Present: normal lung sounds bilaterally Cardiovascular Exam: Present: normal rhythm, tachycardia GI/Abdominal exam: Present: soft, normal bowel sounds, other (PEG tube present. Previous site of previous PEG tube and umbilical surgical scar). Absent: distended, tenderness, guarding, rebound, rigid Extremities exam: Present: normal inspection Neurological exam: Present: alert Psychiatric exam: Present: normal affect, normal mood Skin exam: Present: normal color Course Vital Signs 05/10/24 10:29 Temperature 98.6 F Pulse Rate 126 H Respiratory 19 Rate Blood Pressure 134/108 O2 Sat by Pulse 99 Oximetry Medical Decision Making - Medical Decision Making Was pt. sent in by a medical professional or institution (DANA Rosales, STUDIO SALES ASSOCIATE, urgent care, hospital, or long-term...) When possible be specific @ -No Did you speak to anyone other than the patient for history (EMS, parent, family, police, friend...)? What history was obtained from this source @ -EMS helps provide history of medications given and transportation Did you review nursing and triage notes (agree or disagree)? Why? @ -I reviewed and agree with nursing and triage notes Were old charts reviewed (outside hosp., previous admission, EMS record, old EKG, old radiological studies, urgent care reports/EKG's, long-term records)? Report findings @ -Previous admissions and previous renal function reviewed. Patient has elevated BUN compared to previous Differential Diagnosis (chest pain, altered mental status, abdominal pain women, abdominal pain men, vaginal bleeding, weakness, fever, dyspnea, syncope, headache, dizziness, GI bleed, back pain, seizure, CVA, palpatations, mental hea lth, musculoskeletal)? @ -Differential Abdominal Pain Women: Appendicitis, Cholecystitis, diverticulosis, ischemic bowel, pancreatitis, hepatitis, UTI, gastroenteritis, AAA, incarcerated hernia, bowel obstruction, constipation, inflammatory bowel, hepatitis, peptic ulcer disease, splenic infarction, perforated viscus, vulvitis, ovarian torsion, PID, kidney stone, placenta abruption, this is not meant to be an all-inclusive list EKG interpreted by me (3pts min.). @ -As above X-rays interpreted by me (1pt min.). @ -None done CT interpreted by me (1pt min.). @ -None done U/S interpreted by me (1pt. min.). @ -None done What testing was considered but not performed or refused? (CT, X-rays, U/S, labs)? Why? @ -Considered imaging however patient is nontender What meds were considered but not given or refused? Why? @ -None Did you discuss the management of the patient with other professionals (professionals i.e. DANA Rosales, STUDIO SALES ASSOCIATE, lab, RT, psych nurse, delinquency prevention social worker, manager financial services, teacher, chief business officer, case supervisor)? Give summary @ -Case discussed with Dr. Pike who did evaluate his patient and will admit Was smoking cessation discussed for >3mins.? @ -No Was critical care preformed (if so, how long)? @ -No Were there social determinants of health that impacted care today? How? (Ho melessness, low income, unemployed, alcoholism, drug addiction, transportation, low edu. Level, literacy, decrease access to med. care, skilled nursing, rehab)? @ -No Was there de-escalation of care discussed even if they declined (Discuss DNR or withdrawal of care, Hospice)? DNR status @ -No What co-morbidities impacted this encounter? (DM, HTN, Smoking, COPD, CAD, Cancer, CVA, ARF, Chemo, Hep., AIDS, mental health diagnosis, sleep apnea, morbid obesity)? @ -History of diabetes and gastroparesis Was patient admitted / discharged? Hospital course, mention meds given and route, prescriptions, significant lab abnormalities, going to OR and other pertinent info. @ -Patient presents with nausea vomiting and decreased oral intake. Patient does appear dehydrated on exam and with evaluation. Patient will be admitted for further fluid. Admission orders written. Undiagnosed new problem with uncertain prognosis? @ -No Drug Therapy requiring intensive monitoring for toxicity (Heparin, Nitro, Insulin, Cardizem)? @ -No Were any procedures done? @ -No Diagnosis/symptom? @ -Dehydration Acute, or Chronic, or Acute on Chronic? @ -Acute Uncomplicated (without systemic symptoms) or Complicated (systemic symptoms)? @ -Default Side effects of treatment? @ -No Exacerbation, Progression, or Severe Exacerbation? @ -No Poses a threat to life or bodily function? How? (Chest pain, [place], [place], pneumonia, PE, COPD, DKA, ARF, appy, cholecystitis, CVA, Diverticulitis, Homicidal, Suicidal, threat to staff... and all critical care pts) @ -No - Lab Data Result diagrams: 05/10/24 10:49 Lab Results 05/10/24 Range/Units 10:49 Sodium 140 (137-145) mmol/L Potassium 5.7 H (3.5-5.1) mmol/L Chloride 101 (98-107) mmol/L Carbon Dioxide 33 H (22-30) mmol/L Anion Gap 6 mmol/L BUN 53 H (7-17) mg/dL Creatinine 1.05 H (0.52-1.04) mg/dL Est GFR (CKD-EPI)AfAm 71 (>60 ml/min/1.73 sqM) Est GFR (CKD-EPI)NonAf 61 (>60 ml/min/1.73 sqM) Glucose 349 H (74-99) mg/dL Calcium 9.2 (8.4-10.2) mg/dL Total Bilirubin 0.4 (0.2-1.3) mg/dL AST 23 (14-36) U/L ALT 27 (4-34) U/L Alkaline Phosphatase 157 H (38-126) U/L Total Protein 8.6 H (6.3-8.2) g/dL Albumin 4.3 (3.5-5.0) g/dL Amylase 131 H (30-110) U/L Lipase 534 H (23-300) U/L Disposition Clinical Impression: Dehydration Disposition: ADMITTED IP TO THIS [facility] Is patient prescribed a controlled substance at d/c from ED?: No Referrals: Dell Pike MD [Primary Care Provider] - 1-2 days Time of Disposition: 11:45
[2024-05-10] MEDS: FAMOTIDINE 20 MG/2 ML VIAL IV STA (10:50)
[2024-05-10] MEDS: METOCLOPRAMIDE 5 MG/ML 2 ML VIAL IVP STA (10:50)
[2024-05-10] MEDS: MORPHINE SULFATE 4 MG/ML SYRINGE IVP STA (10:50)
[2024-05-10] MEDS: SODIUM CHLORIDE 0.9% 1,000 ML IV STA (10:51)
--- NOTE | 2024-05-10 11:07 | XR ---
EXAMINATION TYPE: XR KUB DATE OF EXAM: 05/10/2024 11:00 AM COMPARISON: None. CLINICAL INDICATION: Female, 54 years old with history of abdominal pain, TECHNIQUE: Single view of the abdomen. FINDINGS: Small bowel demonstrates no evidence for dilatation or air fluid levels. Gas and fecal material is seen in non-distended colon. No convincing evidence for pneumoperitoneum. No unusual calcifications. The lung bases are clear. The osseous structures are intact. IMPRESSION: 1. Overall nonobstructive bowel gas pattern. [facility], , 05/10/2024 11:04 AM
[2024-05-10 11:28] LABS: Basophils # (A) 0.1 k/uL (0-0.2); Basophils % (A) 1 %; Eosinophils # (A) 0.1 k/uL (0-0.7); Eosinophils % (A) 1 %; Hypochromasia Slight; Lymphocytes # (A) 1.4 k/uL (1.0-4.8); Lymphocytes % (A) 14 %; MCH 29.5 pg (25.0-35.0); MCHC 31.7 g/dL (31.0-37.0); MCV 92.9 fL (80.0-100.0); Mean Platelet Volume 7.8; Monocytes # (A) 0.3 k/uL (0-1.0); Monocytes % (A) 3 %; Neutrophils # (A) 7.8 k/uL (1.3-7.7); Neutrophils % (A) 80 %; Platelet Count 478 k/uL (150-450); RBC 4.94 m/uL (3.80-5.40); RDW 15.6 % (11.5-15.5); WBC 9.7 k/uL (3.8-10.6)
[2024-05-10 11:29] LABS: ALT 27 U/L (4-34); AST 23 U/L (14-36); African American GFR (CKD) 71 (>60 ml/min/1.73 sqM); Albumin 4.3 g/dL (3.5-5.0); Alkaline Phosphatase 157 U/L (38-126); Amylase 131 U/L (30-110); Anion Gap 6 mmol/L; Blood Urea Nitrogen 53 mg/dL (7-17); Calcium 9.2 mg/dL (8.4-10.2); Carbon Dioxide 33 mmol/L (22-30); Chloride 101 mmol/L (98-107); Glucose 349 mg/dL (74-99); Lipase 534 U/L (23-300); Non-African American GFR(CKD) 61 (>60 ml/min/1.73 sqM); Potassium 5.7 mmol/L (3.5-5.1); Sodium 140 mmol/L (137-145); Total Bilirubin 0.4 mg/dL (0.2-1.3); Total Protein 8.6 g/dL (6.3-8.2)
[2024-05-10 11:45] LABS: HGB 14.6 gm/dL (11.4-16.0)
[2024-05-10] MEDS ORDERED: NALOXONE 0.4 MG/ML 1 ML VIAL IV PRN (11:46)
[2024-05-10] MEDS ORDERED: ACETAMINOPHEN TAB 325 MG TAB PO PRN (11:46)
[2024-05-10] MEDS: SODIUM CHLORIDE 0.9% 1,000 ML IV SCH (12:49)
[2024-05-10] MEDS: SODIUM CHLORIDE 0.9% 500 ML 500 ML IV STA (12:57)
[2024-05-10] MEDS: MORPHINE SULFATE 4 MG/ML SYRINGE IV PRN (14:18)
[2024-05-10 17:18] LABS: Glucose,Whole Blood 224 mg/dL (70-110)
[2024-05-10 21:49] LABS: Glucose,Whole Blood 99 mg/dL (70-110)
[2024-05-10] MEDS ORDERED: ARTIFICIAL TEARS-HYPROMELLOSE DROPS 15 ML BTL BOTH EYES PRN (22:00)
[2024-05-10] MEDS: INSULIN ASPART (NovoLOG) 100 UNIT/ML VIAL SQ SCH (22:08)
[2024-05-11] MEDS: HYDROcodone/APAP 10-325MG 1 EACH TAB PO SCH ×2 (00:32→10:09)
[2024-05-11] MEDS: SCOPOLAMINE 1 MG/72 HR PATCH TRANSDERM SCH (00:33)
[2024-05-11] MEDS: methocarbamoL 500 MG TAB PO SCH ×2 (00:33→10:09)
[2024-05-11] MEDS: ONDANSETRON 4 MG/2 ML VIAL IVP PRN ×2 (02:38→10:06)
--- NOTE | 2024-05-11 05:28 | HP ---
HISTORY AND PHYSICAL HISTORY OF PRESENT ILLNESS: Came to the hospital, diabetic, severely high glucose level with nausea and vomiting. High glucose levels in the 400s to 500s. She has a history of gastroparesis for many admissions. She thinks, she may have caught a bug or something she said. She has cough and some tightness in chest. HOME MEDICINES: 1. Xanax 0.25 b.i.d. 2. Lipitor 20 daily. 3. Humalog Kwikpen. 4. Remeron 30 at night. 5. Folic acid 1 mg daily. 6. [place] 7.5 t.i.d. 7. Ferrous sulfate 325 daily. 8. Lantus 10 units daily. 9. Robaxin 250 b.i.d. 10.Zofran p.r.n. 11.Scopolamine patch daily. 12.Artificial Tears. ALLERGIES: Fentanyl. REVIEW OF SYSTEMS: A 14-point review of systems otherwise negative. PAST MEDICAL HISTORY: Diabetes mellitus, hypertension, musculoskeletal disorder, frequent nausea, frozen shoulder, neuropathy, urine ESBL. SURGERY: Cholecystectomy, orthopedic surgery, tubal ligation. FAMILY HISTORY: Father, mother unknown, but she is adopted. PHYSICAL EXAMINATION: VITAL SIGNS: Temp 98.6, pulse 116 to 126, respiratory rate 16 to 19, blood pressure 134/108, O2 saturation 99. HEENT: Normocephalic, atraumatic. Pupils equal, round, and reactive. CARDIOVASCULAR: S1, S2. LUNGS: Clear. GI: Soft, nontender. PEG tube present. EXTREMITIES: No cyanosis, clubbing, or edema. NEUROLOGIC: Cranial nerves intact. PSYCH: Fair mood and affect. LABORATORY DATA: BUN 52, creatinine 1.05. Sodium 140, potassium 5.7, lipase 534, amylase 131, alkaline phosphatase 157. ASSESSMENT: Dehydration, progressive nausea and vomiting, nonketotic hyperosmolar glucose, uncontrolled diabetes mellitus, acute on chronic pancreatitis. Prognosis guarded. Please see further orders. Check for pneumonia. MMODL / IJN: [id number] /
[2024-05-11 06:55] LABS: Glucose,Whole Blood 77 mg/dL (70-110)
[2024-05-11] MEDS: amLODIPine 5 MG TAB PO SCH (07:10)
[2024-05-11] MEDS: ONDANSETRON 4 MG TAB PO SCH (07:18)
[2024-05-11] MEDS: INSULIN DETEMIR (LEVEMIR) 100 UNIT/ML SYR SQ SCH (07:18)
[2024-05-11] MEDS: METOCLOPRAMIDE 5 MG/ML 2 ML VIAL IVP SCH (07:27)
[2024-05-11] MEDS ORDERED: METOCLOPRAMIDE 10 MG TAB PO SCH (07:30)
[2024-05-11] MEDS: FERROUS SULFATE 325 MG TAB PO SCH (08:14)
[2024-05-11] MEDS: hydrALAZINE HCL 20 MG/ML 1 ML VIAL IVP PRN (08:14)
[2024-05-11] MEDS: FOLIC ACID 1 MG TAB PO SCH (08:14)
[2024-05-11] MEDS: FAMOTIDINE 20 MG TAB PO SCH ×2 (08:14→22:49)
[2024-05-11] MEDS: ALPRAZolam 0.25 MG TAB PO SCH (08:14)
[2024-05-11] MEDS: ATORVASTATIN 20 MG TAB PO SCH (08:14)
[2024-05-11] MEDS: PANTOPRAZOLE 40 MG/10 ML VIAL IV SCH (08:14)
[2024-05-11 09:14] LABS: Basophils # (A) 0.06 X 10*3/uL (0.00-0.10); Basophils % (A) 0.5 %; Eosinophils # (A) 0.26 X 10*3/uL (0.04-0.35); Eosinophils % (A) 2.3 %; HCT 35.2 % (37.2-46.3); HGB 10.8 g/dL (12.0-15.0); Lymphocytes # (A) 2.39 X 10*3/uL (0.90-5.00); MCH 29.4 pg (27.0-32.0); MCHC 30.7 g/dL (32.0-37.0); MCV 95.9 FL (80.0-97.0); Monocytes # (A) 0.68 X 10*3/uL (0.20-1.00); NRBC Per 100 WBC 0 X 10*3/uL (0.00-0.01); Neutrophils # (A) 7.97 X 10*3/uL (1.80-7.70); Neutrophils % (A) 69.8 %; Platelet Count 361 X 10*3/uL (140-440); RBC 3.67 X 10*6/uL (4.10-5.20); RDW 14.9 % (11.5-14.5)
[2024-05-11 09:28] LABS: ALT 19 U/L (8-44); AST 22 U/L (13-35); Albumin/Globulin Ratio 1.03 Ratio (1.60-3.17); Alkaline Phosphatase 103 U/L (41-126); Calcium 8.2 mg/dL (8.7-10.3); Carbon Dioxide 20.5 mmol/L (21.6-31.8); Chloride 110 mmol/L (96-109); Globulin 2.9 g/dL (1.6-3.3); Glucose 61 mg/dL (70-110); Lipase 71 U/L (14-63); Magnesium 2.3 mg/dL (1.5-2.4); Sodium 139 mmol/L (135-145); Total Bilirubin <0.2 mg/dL (0.3-1.2); Total Protein 5.9 g/dL (6.2-8.2)
[2024-05-11] MEDS: HYDROmorphone 1 MG/ML 1 ML SYRINGE IVP PRN (10:07)
[2024-05-11 12:21] LABS: Glucose,Whole Blood 78 mg/dL (70-110)
--- NOTE | 2024-05-11 14:18 | P.GSCN ---
History of Present Illness Consult date: 05/11/24 History of present illness: CHIEF COMPLAINT: Abdominal pain with nausea and vomiting HISTORY OF PRESENT ILLNESS: This is a 54-year-old female with history of uncontrolled diabetes with gastroparesis. Patient has had recurrent hospitalizations for abdominal pain with nausea vomiting and dehydration. Patient reports she has been having abdominal pain and nausea and vomiting for about a week. She has a J-tube and has been receiving tube feeds. Also has a past history of cholecystectomy. Her lipase was elevated on admission. Patient has had pancreatitis in the past. Denies alcohol use. This afternoon patient does have the basin at bedside with green bile emesis noted. Patient seen and examined with Dr. Garzon PAST MEDICAL HISTORY: Diabetes Mellitus, Hypertension, Musculoskeletal Disorder PAST SURGICAL HISTORY: Cholecystectomy, Orthopedic Surgery, Tubal Ligation MEDICATIONS: See below ALLERGIES: See below SOCIAL HISTORY: No illicit drug use. REVIEW OF SYSTEMS: CONSTITUTIONAL: Denies fever or chills. HEENT: Denies blurred vision, vision changes, or eye pain. Denies hemoptysis CARDIOVASCULAR: Denies chest pain or pressure. RESPIRATORY: No shortness of breath. GASTROINTESTINAL: See HPI for pertinent findings HEMATOLOGIC: Denies bleeding disorders. GENITOURINARY: Denies any blood in urine or increased urinary frequency. SKIN: Denies pruitis. Denies rash. PHYSICAL EXAM: VITAL SIGNS: Reviewed GENERAL: Well-developed in no acute distress. ABDOMEN: Soft. Nondistended. Mild diffuse tenderness. J-tube site clean dry and intact. NEUROLOGIC: Alert and oriented. Cranial nerves II through XII grossly intact. LABORATORY DATA: WBC 11.4 Hgb 14.6 down to 10.8 platelets 361 Sodium 139 potassium is 5.0 creatinine 0.7 Glucose 349 on admission Magnesium 2.3 Total bilirubin 0.2 AST 22 ALT 19 alk phos 103 Lipase 534 down to 71 IMAGING: KUB x-ray overall nonobstructive bowel gas pattern. Gas and fecal material seen in nondistended colon ASSESSMENT: 1. Abdominal pain with nausea and vomiting 2. Acute pancreatitis. History of cholecystectomy 3. Gastroparesis 4. Uncontrolled diabetes mellitus PLAN: -Downgrade diet to n.p.o. -Recommend bowel rest -Continue to hold tube feeds -Continue IV fluids -Continue pain management -Continue antiemetics -Continue Reglan -No surgical intervention planned Thank you for this consultation Physician Varnish Melter Helper note has been reviewed by physician. Signing provider agrees with the documented findings, assessment, and plan of care. 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 MDRO Source:: Urine VRE and ESBL, MRSA-ABD Past Surgical History: Cholecystectomy, Orthopedic Surgery, Tubal Ligation Additional Past Surgical History / Comment(s): rt shoulder, J tube placement Past Anesthesia/Blood Transfusion Reactions: No Reported Reaction Additional Past Anesthesia/Blood Transfusion Reaction / Comm: UNK FAMILY HX Past Psychological History: Anxiety Smoking Status: Current every day smoker Past Alcohol Use History: None Reported Additional Past Alcohol Use History / Comment(s): STARTED SMOKING 1987, smokes about 6 cigs/day Past Drug Use History: None Reported Additional Drug Use History / Comment(s): Patient denies using marijuana. - Past Family History Father History Unknown: Yes Additional Family Medical History / Comment(s): unknown-adopted Mother History Unknown: Yes Additional Family Medical History / Comment(s): unknown- adopted Medications and Allergies Home Medications Medication Instructions Recorded Confirmed Type ALPRAZolam [Xanax] 0.25 mg PO BID 05/12/23 05/10/24 History Atorvastatin [Lipitor] 20 mg PO DAILY 05/12/23 05/10/24 History Insulin Lispro [humaLOG Kwikpen] See Protocol SQ ACHS 05/12/23 05/10/24 History Mirtazapine [Remeron] 30 mg PO HS 05/12/23 05/10/24 History Metoclopramide [Reglan] 10 mg PO ACHS 30 Days #120 tab 05/15/23 05/10/24 Rx Folic Acid 1 mg PO DAILY 06/15/23 05/10/24 History Ferrous Sulfate [Iron (65 MG 325 mg PO DAILY 12/09/23 05/10/24 History Elemental)] Insulin Glargine [Lantus Vial] 10 unit SQ DAILY 12/09/23 05/10/24 History amLODIPine [Norvasc] 5 mg PO DAILY 90 Days #90 tab 12/19/23 05/10/24 Rx Famotidine [Pepcid] 20 mg PO BID 30 Days #60 tab 01/18/24 05/10/24 Rx Ondansetron [Zofran] 4 mg PO BID 02/21/24 05/10/24 History methocarbamoL [Robaxin] 250 mg PO QID 02/21/24 05/10/24 History Loperamide [Imodium] 2 mg PO QID PRN cap 03/10/24 05/10/24 Rx Artificial Tears-Hypromellose 1 drop BOTH EYES QID PRN 03/19/24 05/10/24 History [Artificial Tear Drops] Scopolamine [Scopolamine 1 MG/72 1 patch TRANSDERM Q72H 03/19/24 05/10/24 History HR patch] HYDROcodone/APAP 10-325MG [[place] 1 tab PO TID 05/10/24 05/10/24 History 10-325] Omeprazole 40 mg PO DAILY 05/10/24 05/10/24 History Allergies Allergy/AdvReac Type Severity Reaction Status Date / Time fentanyl AdvReac "wobbly" Verified 03/24/24 06:31 Surgical - Exam Vital Signs Temp Pulse Resp BP Pulse Ox 98.6 F 126 H 19 134/108 99 05/10/24 10:29 05/10/24 10:29 05/10/24 10:29 05/10/24 10:29 05/10/24 10:29 Results - Labs 05/11/24 04:32 05/11/24 04:32 Abnormal Lab Results - Last 24 Hours (Table) 05/10/24 05/10/24 05/10/24 Range/Units 10:49 10:49 17:17 WBC (4.50-10.00) X 10*3/uL RBC (4.10-5.20) X 10*6/uL Hgb (12.0-15.0) g/dL Hct (37.2-46.3) % MCHC (32.0-37.0) g/dL RDW 15.6 H (11.5-15.5) % Plt Count 478 H (150-450) k/uL Neutrophils # 7.8 H (1.3-7.7) k/uL Potassium 5.7 H (3.5-5.1) mmol/L Chloride (96-109) mmol/L Carbon Dioxide 33 H (22-30) mmol/L BUN 53 H (7-17) mg/dL Creatinine 1.05 H (0.52-1.04) mg/dL BUN/Creatinine Ratio (12.00-20.00) Ratio Glucose 349 H (74-99) mg/dL POC Glucose (mg/dL) 224 H (70-110) mg/dL Hemoglobin A1c (<=6.0) % Calcium (8.7-10.3) mg/dL Total Bilirubin (0.3-1.2) mg/dL Alkaline Phosphatase 157 H (38-126) U/L Total Protein 8.6 H (6.3-8.2) g/dL Albumin (3.8-4.9) g/dL Albumin/Globulin Ratio (1.60-3.17) Ratio Amylase 131 H (30-110) U/L Lipase 534 H (23-300) U/L 05/11/24 05/11/24 05/11/24 Range/Units 04:32 04:32 04:32 WBC 11.40 H (4.50-10.00) X 10*3/uL RBC 3.67 L (4.10-5.20) X 10*6/uL Hgb 10.8 L (12.0-15.0) g/dL Hct 35.2 L (37.2-46.3) % MCHC 30.7 L (32.0-37.0) g/dL RDW 14.9 H (11.5-15.5) % Plt Count (150-450) k/uL Neutrophils # 7.97 H (1.3-7.7) k/uL Potassium (3.5-5.1) mmol/L Chloride 110 H (96-109) mmol/L Carbon Dioxide 20.5 L (22-30) mmol/L BUN 28.0 H (7-17) mg/dL Creatinine (0.52-1.04) mg/dL BUN/Creatinine Ratio 40.00 H (12.00-20.00) Ratio Glucose 61 L (74-99) mg/dL POC Glucose (mg/dL) (70-110) mg/dL Hemoglobin A1c 9.2 H (<=6.0) % Calcium 8.2 L (8.7-10.3) mg/dL Total Bilirubin <0.2 L (0.3-1.2) mg/dL Alkaline Phosphatase (38-126) U/L Total Protein 5.9 L (6.3-8.2) g/dL Albumin 3.0 L (3.8-4.9) g/dL Albumin/Globulin Ratio 1.03 L (1.60-3.17) Ratio Amylase (30-110) U/L Lipase 71 H (23-300) U/L Diabetes panel 05/10/24 05/11/24 05/11/24 Range/Units 10:49 04:32 04:32 Sodium 140 139 (137-145) mmol/L Potassium 5.7 H 5.0 (3.5-5.1) mmol/L Chloride 101 110 H (98-107) mmol/L Carbon Dioxide 33 H 20.5 L (22-30) mmol/L BUN 53 H 28.0 H (7-17) mg/dL Creatinine 1.05 H 0.7 (0.52-1.04) mg/dL Glucose 349 H 61 L (74-99) mg/dL Hemoglobin A1c 9.2 H (<=6.0) % Calcium 9.2 8.2 L (8.4-10.2) mg/dL AST 23 22 (14-36) U/L ALT 27 19 (4-34) U/L Alkaline Phosphatase 157 H 103 (38-126) U/L Total Protein 8.6 H 5.9 L (6.3-8.2) g/dL Albumin 4.3 3.0 L (3.5-5.0) g/dL Calcium panel 05/10/24 05/11/24 Range/Units 10:49 04:32 Calcium 9.2 8.2 L (8.4-10.2) mg/dL Albumin 4.3 3.0 L (3.5-5.0) g/dL Pituitary panel 05/10/24 05/11/24 Range/Units 10:49 04:32 Sodium 140 139 (137-145) mmol/L Potassium 5.7 H 5.0 (3.5-5.1) mmol/L Chloride 101 110 H (98-107) mmol/L Carbon Dioxide 33 H 20.5 L (22-30) mmol/L BUN 53 H 28.0 H (7-17) mg/dL Creatinine 1.05 H 0.7 (0.52-1.04) mg/dL Glucose 349 H 61 L (74-99) mg/dL Calcium 9.2 8.2 L (8.4-10.2) mg/dL Adrenal panel 05/10/24 05/11/24 Range/Units 10:49 04:32 Sodium 140 139 (137-145) mmol/L Potassium 5.7 H 5.0 (3.5-5.1) mmol/L Chloride 101 110 H (98-107) mmol/L Carbon Dioxide 33 H 20.5 L (22-30) mmol/L BUN 53 H 28.0 H (7-17) mg/dL Creatinine 1.05 H 0.7 (0.52-1.04) mg/dL Glucose 349 H 61 L (74-99) mg/dL Calcium 9.2 8.2 L (8.4-10.2) mg/dL Total Bilirubin 0.4 <0.2 L (0.2-1.3) mg/dL AST 23 22 (14-36) U/L ALT 27 19 (4-34) U/L Alkaline Phosphatase 157 H 103 (38-126) U/L Total Protein 8.6 H 5.9 L (6.3-8.2) g/dL Albumin 4.3 3.0 L (3.5-5.0) g/dL
[2024-05-11 17:55] LABS: Glucose,Whole Blood 70 mg/dL (70-110)
[2024-05-11] MEDS: IPRATROPIUM-ALBUTEROL 3 ML NEB INHALATION SCH (19:35)
[2024-05-11 19:45] LABS: Glucose,Whole Blood 64 mg/dL (70-110)
[2024-05-11] MEDS: DEXTROSE 50% SYRINGE 50 ML IVP PRN (19:52)
[2024-05-11 20:20] LABS: Glucose,Whole Blood 127 mg/dL (70-110)
--- NOTE | 2024-05-11 22:12 | CT ---
EXAMINATION TYPE: CT chest abdomen wo con DATE OF EXAM: 05/11/2024 9:57 PM COMPARISON: Multiple prior CT studies, most recently dated 03/01/2004. CLINICAL INDICATION: Female, 54 years old with history of sepsis; PHH, Sepsis. Severe vomiting. Technique: CT chest abdomen wo con; Multiple axial images were obtained. Two-dimensional coronal and sagittal reconstructions were obtained. Oral contrast used: without Oral Contrast CT DLP: 280.4 mGycm, Automated exposure control for dose reduction was used. Findings: CHEST: LUNGS/ PLEURA: No focal consolidation, pneumothorax or pleural effusion. Few scattered pleural-based groundglass opacities in the left lung. Previously described new nodular density in the left upper lo be has resolved from prior study and likely reflect infectious/inflammatory etiology. AIRWAY: Patent and unremarkable. HEART: Size within normal limits.Coronary artery calcifications. MEDIASTINUM: No gross evidence of adenopathy. VASCULATURE: No aortic aneurysm. MUSCULOSKELETAL: No acute osseous abnormalities. SOFT TISSUES/LYMPH NODES: Unremarkable. LOWER NECK: No significant findings. ABDOMEN: ABDOMEN LIVER: Unremarkable GALLBLADDER AND BILE DUCTS: The gallbladder is surgically absent. PANCREAS: Unremarkable. SPLEEN: Unremarkable. ADRENAL GLANDS: Unremarkable. KIDNEYS AND URETERS: No evidence of hydronephrosis or renal calculus. The ureters are unremarkable. PELVIS BLADDER: Unremarkable REPRODUCTIVE: Unremarkable. ABDOMEN & PELVIS STOMACH AND BOWEL: Wall thickening/edema of the stomach. Duodenum unremarkable. No evidence of bowel obstruction. Percutaneous jejunostomy tube. PERITONEUM/RETROPERITONEUM: No evidence of pneumoperitoneum or free fluid. VASCULATURE: No evidence of aortic aneurysm. MUSCULOSKELETAL: No acute osseous abnormalities. Mild compression deformity of the superior endplate of L4, chronic in etiology. Moderate to severe chronic compression deformity of the T12 vertebral bod y with associated mild retropulsion. LYMPH NODES: No gross evidence for lymphadenopathy. SOFT TISSUE/ABDOMINAL WALL: Unremarkable IMPRESSION: Chest: * No acute abnormality identified. * Previous described new nodular density in the left upper lobe on prior study 02/26/2024 has resolve d and likely reflected infectious/inflammatory etiology. Abdomen/pelvis: * Wall thickening/edema of the stomach suggestive of infectious or inflammatory gastroenteritis. [facility], Workstation: [email or web address], 05/11/2024 10:10 PM
[2024-05-11 22:25] LABS: Appearance,Urine Clear (Clear); Bacteria,Urine Rare /hpf; Bilirubin,Urine Negative (Negative); Blood,Urine Trace (Negative); Color,Urine Colorless; Glucose,Urine (UA) Negative (Negative); Ketones,Urine Trace (Negative); Leukocyte Esterase,Urine Negative (Negative); Mucus,Urine Rare /hpf; Nitrite,Urine Negative (Negative); Protein,Urine 3+ (Negative); RBC,Urine 6 /hpf (0-5); Specific Gravity,Urine 1.011 (1.001-1.035); Squamous Epithelial Cell,Urine 5 /hpf (0-4); Urobilinogen,Urine <2.0 mg/dL (<2.0); WBC,Urine 5 /hpf (0-5)
[2024-05-11] MEDS: MIRTAZAPINE 15 MG TAB PO SCH (22:50)
[2024-05-12 00:25] LABS: Glucose,Whole Blood 91 mg/dL (70-110)
[2024-05-12 04:07] LABS: Glucose,Whole Blood 93 mg/dL (70-110)
[2024-05-12 06:38] LABS: Glucose,Whole Blood 114 mg/dL (70-110)
[2024-05-12] MEDS: PROCHLORPERAZINE INJ 10 MG/2 ML VIAL IVP PRN (08:24)
[2024-05-12] MEDS ORDERED: FAMOTIDINE 20 MG TAB PO SCH (09:00)
[2024-05-12 09:19] LABS: Basophils # (A) 0.1 k/uL (0-0.2); Basophils % (A) 1 %; Eosinophils # (A) 0.1 k/uL (0-0.7); Eosinophils % (A) 1 %; HCT 33.6 % (34.0-46.0); Hypochromasia Marked; Lymphocytes # (A) 1.3 k/uL (1.0-4.8); Lymphocytes % (A) 13 %; MCH 28.8 pg (25.0-35.0); Mean Platelet Volume 7.6; Monocytes # (A) 0.2 k/uL (0-1.0); Monocytes % (A) 2 %; Neutrophils # (A) 8.6 k/uL (1.3-7.7); Neutrophils % (A) 83 %; Platelet Count 363 k/uL (150-450); RDW 15.4 % (11.5-15.5); WBC 10.3 k/uL (3.8-10.6)
[2024-05-12 09:23] LABS: HGB 10.1 gm/dL (11.4-16.0)
[2024-05-12 09:35] LABS: ALT 17 U/L (4-34); AST 20 U/L (14-36); African American GFR (CKD) >90 (>60 ml/min/1.73 sqM); Albumin 2.8 g/dL (3.5-5.0); Albumin/Globulin Ratio 0.9; Alkaline Phosphatase 109 U/L (38-126); Anion Gap 12 mmol/L; Blood Urea Nitrogen 16 mg/dL (7-17); Calcium 8.6 mg/dL (8.4-10.2); Carbon Dioxide 14 mmol/L (22-30); Chloride 113 mmol/L (98-107); Glucose 126 mg/dL (74-99); Non-African American GFR(CKD) >90 (>60 ml/min/1.73 sqM); Potassium 4.7 mmol/L (3.5-5.1); Sodium 139 mmol/L (137-145); Total Bilirubin 0.3 mg/dL (0.2-1.3); Total Protein 5.8 g/dL (6.3-8.2)
[2024-05-12 12:08] LABS: Glucose,Whole Blood 124 mg/dL (70-110)
--- NOTE | 2024-05-12 13:19 | P.PN ---
Subjective Progress Note Date: 05/12/24 SURGICAL PROGRESS NOTE CHIEF COMPLAINT: Abdominal pain with nausea and vomiting HISTORY OF PRESENT ILLNESS: Patient continues to complain of nausea and vomiting. She is having epigastric abdominal pain. She remains NPO. CT scan of chest abdomen pelvis reports wall thickening/edema in the stomach suggestive of infectious or inflammatory gastroenteritis. Afebrile. Tachycardic heart rate 127. WBC 11.4 down to 10.3 Hgb 10.1. Last EGD was January 02, 2024 reporting gastritis and gastroparesis. PHYSICAL EXAM: VITAL SIGNS: Reviewed. GENERAL: Well-developed in no acute distress. ABDOMEN: Soft. Nondistended. Epigastric tenderness NEUROLOGIC: Alert and oriented. Cranial nerves II through XII grossly intact. ASSESSMENT: 1. Abdominal pain with nausea and vomiting. CT scan reporting wall thic kening/edema in the stomach suggestive of infectious or inflammatory gastritis 2. Acute pancreatitis. History of cholecystectomy 3. Gastroparesis 4. Uncontrolled diabetes mellitus PLAN: -Keep patient n.p.o. -Continue bowel rest -Continue to hold tube feeds -continue IV fluids -Continue pain medication -Continue antiemetics -Continue Reglan -Continue supportive care Physician Supplemental Nurse note has been reviewed by physician. Signing provider agrees with the documented findings, assessment, and plan of care. Objective - Vital Signs Vital signs: Vital Signs Temp 98.5 F 05/12/24 07:03 Pulse 127 H 05/12/24 12:08 Resp 17 05/12/24 07:03 BP 159/92 05/12/24 07:03 Pulse Ox 99 05/12/24 07:03 FiO2 Intake & Output 05/11/24 05/12/24 05/12/24 18:59 06:59 18:59 Weight 35.6 kg 35.8 kg Other: Voiding Method Toilet # Voids 1 1 - Labs CBC & Chem 7: 05/12/24 08:35 05/12/24 08:35 Labs: Abnormal Lab Results - Last 24 Hours (Table) 05/11/24 05/11/24 05/11/24 Range/Units 19:44 20:19 22:00 RBC (3.80-5.40) m/uL Hgb (11.4-16.0) gm/dL Hct (34.0-46.0) % MCHC (31.0-37.0) g/dL Neutrophils # (1.3-7.7) k/uL Chloride (98-107) mmol/L Carbon Dioxide (22-30) mmol/L Glucose (74-99) mg/dL POC Glucose (mg/dL) 64 L 127 H (70-110) mg/dL Total Protein (6.3-8.2) g/dL Albumin (3.5-5.0) g/dL Urine Protein 3+ H (Negative) Urine Ketones Trace H (Negative) Urine Blood Trace H (Negative) Urine RBC 6 H (0-5) /hpf Ur Squamous Epith Cells 5 H (0-4) /hpf Urine Bacteria Rare H (None) /hpf Urine Mucus Rare H (None) /hpf 05/12/24 05/12/24 05/12/24 Range/Units 06:37 08:35 08:35 RBC 3.50 L (3.80-5.40) m/uL Hgb 10.1 L D (11.4-16.0) gm/dL Hct 33.6 L (34.0-46.0) % MCHC 30.0 L (31.0-37.0) g/dL Neutrophils # 8.6 H (1.3-7.7) k/uL Chloride 113 H (98-107) mmol/L Carbon Dioxide 14 L (22-30) mmol/L Glucose 126 H (74-99) mg/dL POC Glucose (mg/dL) 114 H (70-110) mg/dL Total Protein 5.8 L (6.3-8.2) g/dL Albumin 2.8 L (3.5-5.0) g/dL Urine Protein (Negative) Urine Ketones (Negative) Urine Blood (Negative) Urine RBC (0-5) /hpf Ur Squamous Epith Cells (0-4) /hpf Urine Bacteria (None) /hpf Urine Mucus (None) /hpf 05/12/24 Range/Units 12:07 RBC (3.80-5.40) m/uL Hgb (11.4-16.0) gm/dL Hct (34.0-46.0) % MCHC (31.0-37.0) g/dL Neutrophils # (1.3-7.7) k/uL Chloride (98-107) mmol/L Carbon Dioxide (22-30) mmol/L Glucose (74-99) mg/dL POC Glucose (mg/dL) 124 H (70-110) mg/dL Total Protein (6.3-8.2) g/dL Albumin (3.5-5.0) g/dL Urine Protein (Negative) Urine Ketones (Negative) Urine Blood (Negative) Urine RBC (0-5) /hpf Ur Squamous Epith Cells (0-4) /hpf Urine Bacteria (None) /hpf Urine Mucus (None) /hpf
[2024-05-12 17:07] LABS: Glucose,Whole Blood 198 mg/dL (70-110)
[2024-05-12 17:31] LABS: Glucose,Whole Blood 186 mg/dL (70-110)
[2024-05-12 21:43] LABS: Glucose,Whole Blood 182 mg/dL (70-110)
--- NOTE | 2024-05-12 22:02 | P.CONS ---
History of Present Illness - Reason for Consult Consult date: 05/12/24 Sepsis Requesting physician: Dell Pike - Chief Complaint Nausea vomiting X 2 days - History of Present Illness Patient is a 54-year-old female with a past medical history significant for diabetes mellitus hypertension did have a history of diabetic gastroparesis with the jejunostomy tube for feeding patient presenting to the hospital for evaluation of nausea vomiting abdominal discomfort symptom has been going on for day or 2 before presentation to the hospital and mention symptoms are similar to her previous episode of diabetic paresis also has some mild abdominal discomfort without any radiation with the send the patient was evaluated on presentation to the hospital patient was afebrile patient was tachycardic but not hypotensive or hypoxic and the need for supplemental oxygen patient did have white count of 9.70 was slightly up to 11.40 today creatinine has been 0.7 liver enzymes are normal and manage lipase mildly elevated urine has been relatively negative patient did have a CT of the chest abdominal pelvis completed yesterday no acute abnormality in the chest abdominal pelvis did shows wall thickening edema of the stomach suggestive of infectious or inflammatory gastroenteritis infectious disease was consulted for possible sepsis Review of Systems Positive point and negatives has been mentioned in the HPI, complete review of systems was performed and all other systems are negative 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 MDRO Source:: Urine VRE and ESBL, MRSA-ABD Past Surgical History: Cholecystectomy, Orthopedic Surgery, Tubal Ligation Additional Past Surgical History / Comment(s): rt shoulder, J tube placement Past Anesthesia/Blood Transfusion Reactions: No Reported Reaction Additional Past Anesthesia/Blood Transfusion Reaction / Comm: UNK FAMILY HX Past Psychological History: Anxiety Smoking Status: Current every day smoker Past Alcohol Use History: None Reported Additional Past Alcohol Use History / Comment(s): STARTED SMOKING 1987, smokes about 6 cigs/day Past Drug Use History: None Reported Additional Drug Use History / Comment(s): Patient denies using marijuana. - Past Family History Father History Unknown: Yes Additional Family Medical History / Comment(s): unknown-adopted Mother History Unknown: Yes Additional Family Medical History / Comment(s): unknown- adopted Medications and Allergies Home Medications Medication Instructions Recorded Confirmed Type ALPRAZolam [Xanax] 0.25 mg PO BID 05/12/23 05/10/24 History Atorvastatin [Lipitor] 20 mg PO DAILY 05/12/23 05/10/24 History Insulin Lispro [humaLOG Kwikpen] See Protocol SQ ACHS 05/12/23 05/10/24 History Mirtazapine [Remeron] 30 mg PO HS 05/12/23 05/10/24 History Metoclopramide [Reglan] 10 mg PO ACHS 30 Days #120 tab 05/15/23 05/10/24 Rx Folic Acid 1 mg PO DAILY 06/15/23 05/10/24 History Ferrous Sulfate [Iron (65 MG 325 mg PO DAILY 12/09/23 05/10/24 History Elemental)] Insulin Glargine [Lantus Vial] 10 unit SQ DAILY 12/09/23 05/10/24 History amLODIPine [Norvasc] 5 mg PO DAILY 90 Days #90 tab 12/19/23 05/10/24 Rx Famotidine [Pepcid] 20 mg PO BID 30 Days #60 tab 01/18/24 05/10/24 Rx Ondansetron [Zofran] 4 mg PO BID 02/21/24 05/10/24 History methocarbamoL [Robaxin] 250 mg PO QID 02/21/24 05/10/24 History Loperamide [Imodium] 2 mg PO QID PRN cap 03/10/24 05/10/24 Rx Artificial Tears-Hypromellose 1 drop BOTH EYES QID PRN 03/19/24 05/10/24 History [Artificial Tear Drops] Scopolamine [Scopolamine 1 MG/72 1 patch TRANSDERM Q72H 03/19/24 05/10/24 History HR patch] HYDROcodone/APAP 10-325MG [[place] 1 tab PO TID 05/10/24 05/10/24 History 10-325] Omeprazole 40 mg PO DAILY 05/10/24 05/10/24 History Allergies Allergy/AdvReac Type Severity Reaction Status Date / Time fentanyl AdvReac "wobbly" Verified 03/24/24 06:31 Physical Exam Vitals: Vital Signs Temp Pulse Pulse Resp BP Pulse Ox 05/12/24 07:57 124 H 05/12/24 07:48 120 H 05/12/24 07:03 98.5 F 134 H 17 159/92 99 05/12/24 01:41 98.4 F 103 H 12 129/80 92 L 05/11/24 19:53 98.5 F 121 H 12 155/89 97 05/11/24 14:18 98.1 F 123 H 16 142/92 98 Intake and Output 05/11/24 05/12/24 05/12/24 22:59 06:59 14:59 Other: Weight 35.8 kg GENERAL DESCRIPTION: Middle-aged female lying in bed, no distress. No tachypnea or accessory muscle of respiration use. HEENT: Shows Pallor , no scleral icterus. Oral mucous membrane is dry. NECK: Trachea central, no thyromegaly. LUNGS: Unlabored breathing. Clear to auscultation anteriorly. No wheeze or crackle. HEART: S1, S2, regular rate and rhythm. No loud murmur ABDOMEN: Soft, no tenderness , no erythema around the feeling tube site EXTREMITIES: No edema of feet. SKIN: No rash, no masses palpable. NEUROLOGICAL: The patient is awake, alert, oriented x3, mood and affect normal. Results CBC & Chem 7: 05/12/24 08:35 05/12/24 08:35 Labs: Abnormal Lab Results - Last 24 Hours (Table) 05/11/24 05/11/24 05/11/24 Range/Units 19:44 20:19 22:00 RBC (3.80-5.40) m/uL Hgb (11.4-16.0) gm/dL Hct (34.0-46.0) % MCHC (31.0-37.0) g/dL Neutrophils # (1.3-7.7) k/uL Chloride (98-107) mmol/L Carbon Dioxide (22-30) mmol/L Glucose (74-99) mg/dL POC Glucose (mg/dL) 64 L 127 H (70-110) mg/dL Total Protein (6.3-8.2) g/dL Albumin (3.5-5.0) g/dL Urine Protein 3+ H (Negative) Urine Ketones Trace H (Negative) Urine Blood Trace H (Negative) Urine RBC 6 H (0-5) /hpf Ur Squamous Epith Cells 5 H (0-4) /hpf Urine Bacteria Rare H (None) /hpf Urine Mucus Rare H (None) /hpf 05/12/24 05/12/24 05/12/24 Range/Units 06:37 08:35 08:35 RBC 3.50 L (3.80-5.40) m/uL Hgb 10.1 L D (11.4-16.0) gm/dL Hct 33.6 L (34.0-46.0) % MCHC 30.0 L (31.0-37.0) g/dL Neutrophils # 8.6 H (1.3-7.7) k/uL Chloride 113 H (98-107) mmol/L Carbon Dioxide 14 L (22-30) mmol/L Glucose 126 H (74-99) mg/dL POC Glucose (mg/dL) 114 H (70-110) mg/dL Total Protein 5.8 L (6.3-8.2) g/dL Albumin 2.8 L (3.5-5.0) g/dL Urine Protein (Negative) Urine Ketones (Negative) Urine Blood (Negative) Urine RBC (0-5) /hpf Ur Squamous Epith Cells (0-4) /hpf Urine Bacteria (None) /hpf Urine Mucus (None) /hpf Assessment and Plan (1) Leukocytosis Current Visit: No Status: Acute Code(s): D72.829 - ELEVATED WHITE BLOOD CELL COUNT, UNSPECIFIED SNOMED Code(s): 810766286 Plan: 1patient presenting to the hospital with abdominal pain nausea and vomiting which apparently has been similar to her previous episode of diabetic gastroparesis patient has been afebrile white count is mildly elevated did have some thickening of the stomach on the CT abdominal could be related to gastritis gastroparesis clinic suspicious low for infectious etiology, patient to have normal procalcitonin CT chest did not show any pneumonia UA has been negative 2will monitor the patient closely off antibiotic therapy at this point is no obvious focus of infectious etiology We will follow on clinical condition and cultures to further adjust medication if needed Thank you for this consultation we will follow the patient along with you Dictation was produced using [employer] dictation software. please excuse any grammatical, word or spelling errors. Time with Patient: Greater than 30
--- NOTE | 2024-05-13 01:08 | PN ---
PROGRESS NOTE SUBJECTIVE: A 54-year-old white female, diabetic ketoacidosis, pneumonia on CAT scan. She remains on Rocephin. Continue breathing treatments. Continue Accu-Chek protocols. OBJECTIVE: CARDIOVASCULAR: S1, S2. LUNGS: Transmitted upper sounds. GI: Soft. HEMATOLOGY: Negative Homans. ASSESSMENT: She looks her stated age. Still cachectic. Prognosis guarded. Continue on Accu-Chek protocols. Treatment for pneumonia. Follow up in the next 24 to 48 hours. Prognosis guarded. Sugars are under better control. MMODL / IJN: [id number] /
[2024-05-13 06:35] LABS: Glucose,Whole Blood 145 mg/dL (70-110)
[2024-05-13] MEDS: IV FLUID CONTINUATION 1,000 ML IV ONE (07:30)
[2024-05-13] MEDS ORDERED: PROPOFOL 10 MG/ML 20 ML VIAL IV ONE (07:30)
--- NOTE | 2024-05-13 07:57 | P.OP ---
Date of Procedure: 05/13/24 Preoperative Diagnosis: Gastritis Postoperative Diagnosis: Gastritis Procedure(s) Performed: EGd Anesthesia: MAC Surgeon: Shane Garzon Pathology: other (Antral, body of stomach) Condition: stable Disposition: PACU Description of Procedure: Patient is placed on the endoscopy table in the lateral position. She received IV sedation. The gastric was placed oropharynx passed in the esophagus and stomach. Scope was then placed through the pylorus. First second portion of the duodenum appeared normal. Scope was brought back to the antrum this appeared mildly Flaim. A biopsy was performed. The scope was then retroflexed and the Mainer of the stomach was examined. The rugal folds appeared thickened. A biopsy of of the antrum and body of the stomach were performed. The scope was then retroflexed and there was no significant hiatal hernia. The GE junction was at 40 cm. The distal esophagus were normal. Proximal esophagus was normal and scope withdrawn for patient.
[2024-05-13 08:42] LABS: Basophils # (A) 0.05 X 10*3/uL (0.00-0.10); Basophils % (A) 0.7 %; Eosinophils # (A) 0.19 X 10*3/uL (0.04-0.35); Eosinophils % (A) 2.5 %; HGB 9.3 g/dL (12.0-15.0); Lymphocytes # (A) 1.73 X 10*3/uL (0.90-5.00); Lymphocytes % (A) 23.1 %; MCH 29.3 pg (27.0-32.0); MCV 94.6 FL (80.0-97.0); Mean Platelet Volume 10.2 FL (9.5-12.2); Monocytes # (A) 0.46 X 10*3/uL (0.20-1.00); Monocytes % (A) 6.1 %; NRBC Per 100 WBC 0 X 10*3/uL (0.00-0.01); Neutrophils # (A) 5.03 X 10*3/uL (1.80-7.70); Neutrophils % (A) 67.2 %; Platelet Count 324 X 10*3/uL (140-440); RBC 3.17 X 10*6/uL (4.10-5.20); RDW 14.5 % (11.5-14.5); WBC 7.49 X 10*3/uL (4.50-10.00)
[2024-05-13] MEDS: SODIUM CHLORIDE 0.9% 1,000 ML IV SCH (11:29)
[2024-05-13] MEDS: METOPROLOL TARTRATE 12.5 MG TAB PO SCH (11:29)
[2024-05-13 11:32] LABS: African American GFR (CKD) >90 (>60 ml/min/1.73 sqM); Anion Gap 6 mmol/L; Blood Urea Nitrogen 13 mg/dL (7-17); Calcium 8.2 mg/dL (8.4-10.2); Carbon Dioxide 15 mmol/L (22-30); Chloride 116 mmol/L (98-107); Glucose 140 mg/dL (74-99); Non-African American GFR(CKD) >90 (>60 ml/min/1.73 sqM); Potassium 4.5 mmol/L (3.5-5.1); Sodium 137 mmol/L (137-145)
[2024-05-13 12:12] LABS: Glucose,Whole Blood 174 mg/dL (70-110)
--- NOTE | 2024-05-13 14:00 | P.PN ---
Subjective Progress Note Date: 05/13/24 This is a pleasant 54 year old female follows with Dell Pike. Patient came in for nausea vomiting dehydration as well as severe abdominal pain. CT of the chest abdomen pelvis reveals infectious versus inflammatory gastroenteritis. She has not moved her bowels in 2 days she does have normal active bowel sounds in all 4 quadrants. Patient did go for EGD today which does show a mild gastritis. She is maintained on a full liquid diet on an outpatient basis and uses a J-tube for feedings. Which are currently on hold at this time. She is receiving around the clock IV pain medications for the abominal pain. Patient has been having tachycardia since admission heart rate up into the 120s. Soren puente but her prior admission back in February for the same at that time it was felt to be due to an infectious process and related to sepsis cardiology did not recommend to treat the tachycardia at that time. She also had an echocardiogram completed with normal LV function. This time there does not appear to be any clear-cut infectious process going on with the exception of some mild enteritis. Patient was started on a low-dose beta-eligio metoprolol 12.5 mg twice a day. Review of Systems Constitutional: Denied any fatigue denied any fever. Cardio vascular: denied any chest pain, palpitations Gastrointestinal: denied any nausea, vomiting, diarrhea Pulmonary: Denied any shortness of breath cough Neurologic denied any new focal deficits All inpatient medications were reviewed and appropriate changes in these medications as dictated in the interval history and assessment and plan. PHYSICAL EXAMINATION: GENERAL: The patient is alert and oriented x3, not in any acute distress. Well developed, well nourished. HEENT: Pupils are round and equally reacting to light. EOMI. No scleral icterus. No conjunctival pallor. Normocephalic, atraumatic. No pharyngeal erythema. No thyromegaly. CARDIOVASCULAR: S1 and S2 present. No murmurs, rubs, or gallops. PULMONARY: Chest is clear to auscultation, no wheezing or crackles. ABDOMEN: Soft, nontender, nondistended, normoactive bowel sounds. No palpable organomegaly. MUSCULOSKELETAL: No joint swelling or deformity. EXTREMITIES: No cyanosis, clubbing, or pedal edema. NEUROLOGICAL: Gross neurological examination did not reveal any focal deficits. SKIN: No rashes. Assessment and Plan Abdominal pain secondary to diabetic gastroparesis Mild gastritis on EGD continues on PPI Elevated lipase with mild acute pancreatitis which has resolved. Lipase is normal today. Mild acute kidney injury prerenal azotemia secondary to dehydration from poor oral intake on admission Hyperkalemia from the PHANI on admission which has normalized Diabetes Mellitus type 2 Hypertension Sinus tachycardia Diabetic neuropathy History of MDRO GI prophylaxis DVT prophylaxis Plan Continue full liquid diet Continue supportive care for the acute abdominal pain Tube feedings remain on hold per general surgery Infectious disease following and recommending to monitor the patient off antibiotics at this time no clear evidence for underlying infectious process. Stop the IV ceftriaxone Decrease fluids to normal saline at 75 mls/hr Start oral metoprolol 12.5 mg BID and can titrate up Continue accuchecks ACHS and sliding scale insulin Repeat BMP tomorrow The impression and plan of care has been dictated by Kimberley Victoria, Nurse Practitioner as directed. Dr. Marlene MD I have performed a history and physical examination and medical decision making of this patient, discussed the same with the dictator, and agree with the dictators assessment and plan as written, documented as a scribe. Based on total visit time, I have performed more than 50% of this visit. Objective - Vital Signs Vital signs: Vital Signs Temp 97.9 F 05/13/24 12:10 Pulse 120 H 05/13/24 12:10 Resp 20 05/13/24 12:10 BP 166/99 05/13/24 12:10 Pulse Ox 98 05/13/24 12:10 FiO2 Intake & Output 05/12/24 05/13/24 05/13/24 18:59 06:59 18:59 Intake Total 100 Balance 100 Weight 38.4 kg Intake: IV 100 Other: # Voids 1 - Labs CBC & Chem 7: 05/13/24 04:46 05/13/24 04:46 Labs: Abnormal Lab Results - Last 24 Hours (Table) 05/12/24 05/12/24 05/12/24 Range/Units 17:06 17:30 21:41 RBC (4.10-5.20) X 10*6/uL Hgb (12.0-15.0) g/dL Hct (37.2-46.3) % MCHC (32.0-37.0) g/dL Chloride (98-107) mmol/L Carbon Dioxide (22-30) mmol/L Glucose (74-99) mg/dL POC Glucose (mg/dL) 198 H 186 H 182 H (70-110) mg/dL Calcium (8.4-10.2) mg/dL 05/13/24 05/13/24 05/13/24 Range/Units 04:46 04:46 06:33 RBC 3.17 L (4.10-5.20) X 10*6/uL Hgb 9.3 L (12.0-15.0) g/dL Hct 30.0 L (37.2-46.3) % MCHC 31.0 L (32.0-37.0) g/dL Chloride 116 H (98-107) mmol/L Carbon Dioxide 15 L (22-30) mmol/L Glucose 140 H (74-99) mg/dL POC Glucose (mg/dL) 145 H (70-110) mg/dL Calcium 8.2 L (8.4-10.2) mg/dL 05/13/24 Range/Units 12:11 RBC (4.10-5.20) X 10*6/uL Hgb (12.0-15.0) g/dL Hct (37.2-46.3) % MCHC (32.0-37.0) g/dL Chloride (98-107) mmol/L Carbon Dioxide (22-30) mmol/L Glucose (74-99) mg/dL POC Glucose (mg/dL) 174 H (70-110) mg/dL Calcium (8.4-10.2) mg/dL Assessment and Plan Time with Patient: Less than 30
[2024-05-13] MEDS: ENOXAPARIN 30 MG/0.3 ML SYRINGE SQ SCH (16:39)
[2024-05-13 17:06] LABS: Glucose,Whole Blood 124 mg/dL (70-110)
--- NOTE | 2024-05-13 19:16 | XR ---
EXAMINATION TYPE: XR knee limited RT DATE OF EXAM: 05/13/2024 6:49 PM COMPARISON: None CLINICAL INDICATION: Female, 54 years old with history of Fall and struck knee on the bed; pain TECHNIQUE: XR knee limited RT 2 views submitted. FINDINGS: There is a linear lucency through the medial tibial plateau seen on frontal view.,. No so ft tissue swelling, or joint effusion is noted. Tricompartmental osteophyte formation involving the f emoral condyles, tibial plateau and patella. Mild joint space narrowing. A fabella is present. Athero sclerosis of the arterial vasculature. IMPRESSION: 1. Lucency through the posterior and medial tibial plateau posteriorly. Findings could represent nond isplaced fracture. Correlate with CT. 2. Mild tricompartmental osteoarthritic changes. [facility], , 05/13/2024 7:14 PM
[2024-05-13 20:14] LABS: Glucose,Whole Blood 131 mg/dL (70-110)
[2024-05-14 03:44] LABS: Glucose,Whole Blood 133 mg/dL (70-110)
[2024-05-14 07:26] LABS: Glucose,Whole Blood 140 mg/dL (70-110)
[2024-05-14 07:51] LABS: African American GFR (CKD) >90 (>60 ml/min/1.73 sqM); Anion Gap 8 mmol/L; Blood Urea Nitrogen 6 mg/dL (7-17); Calcium 8.8 mg/dL (8.4-10.2); Carbon Dioxide 20 mmol/L (22-30); Chloride 109 mmol/L (98-107); Glucose 146 mg/dL (74-99); Non-African American GFR(CKD) >90 (>60 ml/min/1.73 sqM); Potassium 3.6 mmol/L (3.5-5.1); Sodium 137 mmol/L (137-145)
--- NOTE | 2024-05-14 08:40 | P.CNOR ---
History of Present Illness - [facility] Consult date: 05/14/24 History of present illness: The patient is very pleasant 54-year-old female who is presently admitted to internal medicine for gastrointestinal issues. According to the patient she fell on her knee yesterday. An x-ray was obtained which showed a possible proximal tibia fracture. This morning on my evaluation the patient has minimal to no pain in her knee. She says she doesn't think it is broken. She also states that she thinks she would be able to walk on it. The patient has no prior history of knee pain. 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 MDRO Source:: Urine VRE and ESBL, MRSA-ABD Past Surgical History: Cholecystectomy, Orthopedic Surgery, Tubal Ligation Additional Past Surgical History / Comment(s): rt shoulder, J tube placement Past Anesthesia/Blood Transfusion Reactions: No Reported Reaction Additional Past Anesthesia/Blood Transfusion Reaction / Comm: UNK FAMILY HX Past Psychological History: Anxiety Smoking Status: Current every day smoker Past Alcohol Use History: None Reported Additional Past Alcohol Use History / Comment(s): STARTED SMOKING 1987, smokes about 6 cigs/day Past Drug Use History: None Reported Additional Drug Use History / Comment(s): Patient denies using marijuana. - Past Family History Father History Unknown: Yes Additional Family Medical History / Comment(s): unknown-adopted Mother History Unknown: Yes Additional Family Medical History / Comment(s): unknown- adopted Medications and Allergies Home Medications Medication Instructions Recorded Confirmed Type ALPRAZolam [Xanax] 0.25 mg PO BID 05/12/23 05/10/24 History Atorvastatin [Lipitor] 20 mg PO DAILY 05/12/23 05/10/24 History Insulin Lispro [humaLOG Kwikpen] See Protocol SQ ACHS 05/12/23 05/10/24 History Mirtazapine [Remeron] 30 mg PO HS 05/12/23 05/10/24 History Metoclopramide [Reglan] 10 mg PO ACHS 30 Days #120 tab 05/15/23 05/10/24 Rx Folic Acid 1 mg PO DAILY 06/15/23 05/10/24 History Ferrous Sulfate [Iron (65 MG 325 mg PO DAILY 12/09/23 05/10/24 History Elemental)] Insulin Glargine [Lantus Vial] 10 unit SQ DAILY 12/09/23 05/10/24 History amLODIPine [Norvasc] 5 mg PO DAILY 90 Days #90 tab 12/19/23 05/10/24 Rx Famotidine [Pepcid] 20 mg PO BID 30 Days #60 tab 01/18/24 05/10/24 Rx Ondansetron [Zofran] 4 mg PO BID 02/21/24 05/10/24 History methocarbamoL [Robaxin] 250 mg PO QID 02/21/24 05/10/24 History Loperamide [Imodium] 2 mg PO QID PRN cap 03/10/24 05/10/24 Rx Artificial Tears-Hypromellose 1 drop BOTH EYES QID PRN 03/19/24 05/10/24 History [Artificial Tear Drops] Scopolamine [Scopolamine 1 MG/72 1 patch TRANSDERM Q72H 03/19/24 05/10/24 History HR patch] HYDROcodone/APAP 10-325MG [[place] 1 tab PO TID 05/10/24 05/10/24 History 10-325] Omeprazole 40 mg PO DAILY 05/10/24 05/10/24 History Allergies Allergy/AdvReac Type Severity Reaction Status Date / Time fentanyl AdvReac "wobbly" Verified 03/24/24 06:31 Physical Examination The patient is resting comfortably in bed. She is alert and able to answer questions. A focused examination of the patient's right lower extremity was conducted. On inspection there is minimal to no swelling in the knee. She has no overlying skin changes or ecchymosis. She is able to perform a straight leg raise without difficulty. She has no pain with passive range of motion of the right hip. She has no appreciable knee effusion. I'm able to actively extend and flex the knee and she has minimal note to no pain with passive range of mo tion. Her thigh and calf are soft. She is able to actively plantarflex and dorsiflex her ankle and her toes. Results X-rays of the right knee were reviewed. I do not appreciate any acute fractures. The radiologist read a possible tibial plateau fracture. - Labs Labs: Abnormal Lab Results - Last 24 Hours (Table) 05/13/24 05/13/24 05/13/24 Range/Units 04:46 04:46 12:11 RBC 3.17 L (4.10-5.20) X 10*6/uL Hgb 9.3 L (12.0-15.0) g/dL Hct 30.0 L (37.2-46.3) % MCHC 31.0 L (32.0-37.0) g/dL D-Dimer (<0.60) mg/L FEU Chloride 116 H (98-107) mmol/L Carbon Dioxide 15 L (22-30) mmol/L BUN (7-17) mg/dL Glucose 140 H (74-99) mg/dL POC Glucose (mg/dL) 174 H (70-110) mg/dL Calcium 8.2 L (8.4-10.2) mg/dL 05/13/24 05/13/24 05/13/24 Range/Units 14:52 17:04 20:06 RBC (4.10-5.20) X 10*6/uL Hgb (12.0-15.0) g/dL Hct (37.2-46.3) % MCHC (32.0-37.0) g/dL D-Dimer 0.78 H (<0.60) mg/L FEU Chloride (98-107) mmol/L Carbon Dioxide (22-30) mmol/L BUN (7-17) mg/dL Glucose (74-99) mg/dL POC Glucose (mg/dL) 124 H 131 H (70-110) mg/dL Calcium (8.4-10.2) mg/dL 05/14/24 05/14/24 05/14/24 Range/Units 03:42 06:53 07:24 RBC (4.10-5.20) X 10*6/uL Hgb (12.0-15.0) g/dL Hct (37.2-46.3) % MCHC (32.0-37.0) g/dL D-Dimer (<0.60) mg/L FEU Chloride 109 H (98-107) mmol/L Carbon Dioxide 20 L (22-30) mmol/L BUN 6 L (7-17) mg/dL Glucose 146 H (74-99) mg/dL POC Glucose (mg/dL) 133 H 140 H (70-110) mg/dL Calcium (8.4-10.2) mg/dL H & H 05/10/24 05/11/24 05/12/24 Range/Units 10:49 04:32 08:35 Hgb 14.6 D 10.8 L 10.1 L D (11.4-16.0) gm/dL Hct 46.0 35.2 L 33.6 L (34.0-46.0) % 05/13/24 Range/Units 04:46 Hgb 9.3 L (11.4-16.0) gm/dL Hct 30.0 L (34.0-46.0) % Result Diagrams: 05/13/24 04:46 05/14/24 06:53 Assessment and Plan Assessment: Possible occult right tibial plateau fracture Plan: I have a low suspicion that the patient has a tibial plateau fracture given her relatively benign physical exam and x-rays. However since the radiologist, Dr. Mitchell possible fracture I will order a computed tomography scan of the right knee to rule out a fracture. If this is negative the patient can weight-bear as tolerated. If she does have a fracture will likely need a brace and protected weightbearing with serial x-rays in the office setting. Time with Patient: Greater than 30
[2024-05-14] MEDS: lisinopriL 5 MG TAB PO SCH (10:23)
[2024-05-14] MEDS: METOPROLOL TARTRATE 25 MG TAB PO SCH (10:23)
--- NOTE | 2024-05-14 10:37 | CT ---
EXAMINATION TYPE: CT knee RT wo con DATE OF EXAM: 05/14/2024 10:19 AM COMPARISON: . Extremity radiograph one day prior CLINICAL INDICATION: Female, 54 years old with history of possible occult tibia fracture; PHH, Possib le occult tibia fracture, pain TECHNIQUE: Axial images were obtained of the CT knee RT wo con, Additional coronal and sagittal refor matted images and soft tissue and bone window were obtained for review. Contrast used: mL of , (None if empty) Oral contrast used: (None if empty) CT DLP: 253 mGycm, Automated exposure control for dose reduction was used. FINDINGS: Mottled appearance of the osseous structures compatible with disuse osteopenia. A fabella i s present. Mild degeneration changes with osteophytes and joint space narrowing. Lucency seen on plai n film has no correlate on CT imaging. There is no evidence of fracture, subluxation, or dislocation. No significant soft tissue swelling or joint effusion is identified. No focal muscular atrophy or e damon is identified. No radiopaque foreign body identified. Atherosclerosis of the arterial vasculatur e. IMPRESSION: 1. No fracture visualized to correlate with radiographic finding. There is diffuse osseous demineral ization present there remains concern consider MRI. 2. Mild degeneration changes of the knee. [facility], , 05/14/2024 10:35 AM
[2024-05-14 12:17] LABS: Glucose,Whole Blood 108 mg/dL (70-110)
--- NOTE | 2024-05-14 12:48 | P.PN ---
Subjective Progress Note Date: 05/14/24 This is a pleasant 54 year old female follows with Dell Pike. Patient came in for nausea vomiting dehydration as well as severe abdominal pain. CT of the chest abdomen pelvis reveals infectious versus inflammatory gastroenteritis. She has not moved her bowels in 2 days she does have normal active bowel sounds in all 4 quadrants. Patient did go for EGD today which does show a mild gastritis. She is maintained on a full liquid diet on an outpatient basis and uses a J-tube for feedings. Which are currently on hold at this time. She is receiving around the clock IV pain medications for the abominal pain. Patient has been having tachycardia since admission heart rate up into the 120s. Soren puente but her prior admission back in February for the same at that time it was felt to be due to an infectious process and related to sepsis cardiology did not recommend to treat the tachycardia at that time. She also had an echocardiogram completed with normal LV function. This time there does not appear to be any clear-cut infectious process going on with the exception of some mild enteritis. Patient was started on a low-dose beta-eligio metoprolol 12.5 mg twice a day. 05/14/2024 Patient is evaluated today in follow up on the medical floor. Patient not reporting any nausea vomiting or diarrhea today. Still has significant abdominal pain. Tube feedings remain on hold. On full liquid diet. Patient had a fall overnight getting take up in her IV tubing will try to get up out of bed. She had a knee x-ray completed because she did fall on her right knee that was concern for a possible fracture. Orthopedics evaluated patient follow-up in the CT reveals no fracture visualized to complete with radiographic finding. There is diffuse osseous demineralization present if there remains a concern consider MRI. There is mild degenerative changes of the knee. She is continued to be able to bear weight as tolerated with no further recommendations at this time based on the CT report. Renal function is normal. Started on oral metoprolol for the tachycardia her heart rate is improved and blood pressure slowing improving. Her heart rate is coming down slowly and her blood pressure is also improved. Review of Systems Constitutional: Denied any fatigue denied any fever. Cardio vascular: denied any chest pain, palpitations Gastrointestinal: denied any nausea, vomiting, diarrhea Pulmonary: Denied any shortness of breath cough Neurologic denied any new focal deficits All inpatient medications were reviewed and appropriate changes in these medications as dictated in the interval history and assessment and plan. PHYSICAL EXAMINATION: GENERAL: The patient is alert and oriented x3, not in any acute distress. Well developed, well nourished. HEENT: Pupils are round and equally reacting to light. EOMI. No scleral icterus. No conjunctival pallor. Normocephalic, atraumatic. No pharyngeal erythema. No thyromegaly. CARDIOVASCULAR: S1 and S2 present. No murmurs, rubs, or gallops. PULMONARY: Chest is clear to auscultation, no wheezing or crackles. ABDOMEN: Soft, nontender, nondistended, normoactive bowel sounds. No palpable organomegaly. MUSCULOSKELETAL: No joint swelling or deformity. EXTREMITIES: No cyanosis, clubbing, or pedal edema. NEUROLOGICAL: Gross neurological examination did not reveal any focal deficits. SKIN: No rashes. Assessment and Plan Abdominal pain secondary to diabetic gastroparesis Mild gastritis on EGD continues on PPI Follow-up while in the hospital on the right knee knee CT reveals no acute fracture and patient is weightbearing as tolerated. Elevated lipase with mild acute pancreatitis which has resolved. Lipase is normal today. Mild acute kidney injury prerenal azotemia secondary to dehydration from poor oral intake on admission Hyperkalemia from the PHANI on admission which has normalized Diabetes Mellitus type 2 Hypertension Sinus tachycardia Diabetic neuropathy History of MDRO GI prophylaxis DVT prophylaxis Plan Continue full liquid diet Continue supportive care for the acute abdominal pain Tube feedings remain on hold per general surgery Infectious disease following and recommending to monitor the patient off antibiotics at this time no clear evidence for underlying infectious process. Stop the IV ceftriaxone Decrease fluids to normal saline at 75 mls/hr Metoprolol increased up to 25 mg twice a day and heart rate is slowly improving. Continue accuchecks ACHS and sliding scale insulin Repeat BMP tomorrow The impression and plan of care has been dictated by Kimberley Victoria, Nurse Practitioner as directed. Dr. Marlene MD I have performed a history and physical examination and medical decision making of this patient, discussed the same with the dictator, and agree with the dictators assessment and plan as written, documented as a scribe. Based on total visit time, I have performed more than 50% of this visit. Objective - Vital Signs Vital signs: Vital Signs Temp 98.1 F 05/14/24 12:11 Pulse 100 05/14/24 12:38 Resp 17 05/14/24 12:11 BP 131/71 05/14/24 12:11 Pulse Ox 94 L 05/14/24 12:11 FiO2 Intake & Output 05/13/24 05/14/24 05/14/24 18:59 06:59 18:59 Intake Total 100 240 Balance 100 240 Weight 38.4 kg 37.7 kg Intake: IV 100 Oral 240 Other: # Voids 1 - Labs CBC & Chem 7: 05/13/24 04:46 05/14/24 06:53 Labs: Abnormal Lab Results - Last 24 Hours (Table) 05/13/24 05/13/24 05/13/24 Range/Units 14:52 17:04 20:06 D-Dimer 0.78 H (<0.60) mg/L FEU Chloride (98-107) mmol/L Carbon Dioxide (22-30) mmol/L BUN (7-17) mg/dL Glucose (74-99) mg/dL POC Glucose (mg/dL) 124 H 131 H (70-110) mg/dL 05/14/24 05/14/24 05/14/24 Range/Units 03:42 06:53 07:24 D-Dimer (<0.60) mg/L FEU Chloride 109 H (98-107) mmol/L Carbon Dioxide 20 L (22-30) mmol/L BUN 6 L (7-17) mg/dL Glucose 146 H (74-99) mg/dL POC Glucose (mg/dL) 133 H 140 H (70-110) mg/dL Assessment and Plan Time with Patient: Less than 30
--- NOTE | 2024-05-14 12:50 | P.PN ---
Subjective Progress Note Date: 05/13/24 Principal diagnosis: Reason for follow-up is abnormal CT question of infection Patient is a 54-year-old female with a past medical history significant for diabetes mellitus hypertension did have a history of diabetic gastroparesis with the jejunostomy tube for feeding patient presenting to the hospital for evaluation of nausea vomiting abdominal discomfort, did have CT abdominal chest did show some wall thickening edema of the stomach status post EGD completed by general surgery this morning with findings of gastritis. On today's evaluation that is 05/13/2024, Patient is afebrile this morning patient breathing comfortably on room air no need for supplemental oxygen menti on oral improvement her nausea and no further vomiting. Patient did have a white count of 7.49, creatinine 0.74 Objective - Vital Signs Vital signs: Vital Signs Temp 97.9 F 05/13/24 12:10 Pulse 120 H 05/13/24 12:10 Resp 20 05/13/24 12:10 BP 166/99 05/13/24 12:10 Pulse Ox 98 05/13/24 12:10 FiO2 Intake & Output 05/12/24 05/13/24 05/13/24 18:59 06:59 18:59 Intake Total 100 Balance 100 Weight 38.4 kg Intake: IV 100 Other: # Voids 1 - Labs CBC & Chem 7: 05/13/24 04:46 05/14/24 06:53 Labs: Abnormal Lab Results - Last 24 Hours (Table) 05/12/24 05/12/24 05/12/24 Range/Units 17:06 17:30 21:41 RBC (4.10-5.20) X 10*6/uL Hgb (12.0-15.0) g/dL Hct (37.2-46.3) % MCHC (32.0-37.0) g/dL Chloride (98-107) mmol/L Carbon Dioxide (22-30) mmol/L Glucose (74-99) mg/dL POC Glucose (mg/dL) 198 H 186 H 182 H (70-110) mg/dL Calcium (8.4-10.2) mg/dL 05/13/24 05/13/24 05/13/24 Range/Units 04:46 04:46 06:33 RBC 3.17 L (4.10-5.20) X 10*6/uL Hgb 9.3 L (12.0-15.0) g/dL Hct 30.0 L (37.2-46.3) % MCHC 31.0 L (32.0-37.0) g/dL Chloride 116 H (98-107) mmol/L Carbon Dioxide 15 L (22-30) mmol/L Glucose 140 H (74-99) mg/dL POC Glucose (mg/dL) 145 H (70-110) mg/dL Calcium 8.2 L (8.4-10.2) mg/dL 05/13/24 Range/Units 12:11 RBC (4.10-5.20) X 10*6/uL Hgb (12.0-15.0) g/dL Hct (37.2-46.3) % MCHC (32.0-37.0) g/dL Chloride (98-107) mmol/L Carbon Dioxide (22-30) mmol/L Glucose (74-99) mg/dL POC Glucose (mg/dL) 174 H (70-110) mg/dL Calcium (8.4-10.2) mg/dL Assessment and Plan (1) Leukocytosis Current Visit: No Status: Acute Code(s): D72.829 - ELEVATED WHITE BLOOD CELL COUNT, UNSPECIFIED SNOMED Code(s): 132048903 Plan: 1patient presenting to the hospital with abdominal pain nausea and vomiting which apparently has been similar to her previous episode of diabetic gastroparesis patient has been afebrile white count is mildly elevated did have some thickening of the stomach on the CT abdominal could be related to gastritis gastroparesis clinic suspicious low for infectious etiology, patient to have normal procalcitonin CT chest did not show any pneumonia UA has been negative 2patient white count has normalized and no clinical focus of infection antibiotics can be safely discontinued Dictation was produced using [employer] dictation software. please excuse any grammatical, word or spelling errors. Time with Patient: Less than 30
--- NOTE | 2024-05-14 12:52 | P.PN ---
Subjective Progress Note Date: 05/14/24 Principal diagnosis: Reason for follow-up is abnormal CT question of infection Patient is a 54-year-old female with a past medical history significant for diabetes mellitus hypertension did have a history of diabetic gastroparesis with the jejunostomy tube for feeding patient presenting to the hospital for evaluation of nausea vomiting abdominal discomfort, did have CT abdominal chest did show some wall thickening edema of the stomach status post EGD completed by general surgery this morning with findings of gastritis. On today's evaluation that is 05/14/2024,the patient denies any fever or any chills, patient is breathing comfortably on room air, the patient denies chest pain shortness of breath and no significant cough, patient denies abdominal pain, no further nausea vomiting or diarrhea feeling better wants to go home. Patient did have creatinine 0.62 Objective - Vital Signs Vital signs: Vital Signs Temp 98.1 F 05/14/24 12:11 Pulse 100 05/14/24 12:38 Resp 17 05/14/24 12:11 BP 131/71 05/14/24 12:11 Pulse Ox 94 L 05/14/24 12:11 FiO2 Intake & Output 05/13/24 05/14/24 05/14/24 18:59 06:59 18:59 Intake Total 100 240 Balance 100 240 Weight 38.4 kg 37.7 kg Intake: IV 100 Oral 240 Other: # Voids 1 - Exam GENERAL DESCRIPTION: Middle-age female lying in bed in no distress RESPIRATORY SYSTEM: Unlabored breathing , decreased breath sounds at bases HEART: S1 S2 regular rate and rhythm , ABDOMEN: Soft , no tenderness EXTREMITIES: No edema feet - Labs CBC & Chem 7: 05/13/24 04:46 05/14/24 06:53 Labs: Abnormal Lab Results - Last 24 Hours (Table) 05/13/24 05/13/24 05/13/24 Range/Units 14:52 17:04 20:06 D-Dimer 0.78 H (<0.60) mg/L FEU Chloride (98-107) mmol/L Carbon Dioxide (22-30) mmol/L BUN (7-17) mg/dL Glucose (74-99) mg/dL POC Glucose (mg/dL) 124 H 131 H (70-110) mg/dL 05/14/24 05/14/24 05/14/24 Range/Units 03:42 06:53 07:24 D-Dimer (<0.60) mg/L FEU Chloride 109 H (98-107) mmol/L Carbon Dioxide 20 L (22-30) mmol/L BUN 6 L (7-17) mg/dL Glucose 146 H (74-99) mg/dL POC Glucose (mg/dL) 133 H 140 H (70-110) mg/dL Assessment and Plan (1) Leukocytosis Current Visit: No Status: Acute Code(s): D72.829 - ELEVATED WHITE BLOOD CELL COUNT, UNSPECIFIED SNOMED Code(s): 811027769 Plan: 1patient presenting to the hospital with abdominal pain nausea and vomiting which apparently has been similar to her previous episode of diabetic gastropare sis patient has been afebrile white count is mildly elevated did have some thickening of the stomach on the CT abdominal could be related to gastritis gastroparesis clinic suspicious low for infectious etiology, patient to have normal procalcitonin CT chest did not show any pneumonia UA has been negative 2patient white count has normalized and no clinical focus of infection, will discontinue Rocephin and monitor the patient closely off antibiotic Dictation was produced using [employer] dictation software. please excuse any grammatical, word or spelling errors. Time with Patient: Less than 30
--- NOTE | 2024-05-14 15:11 | P.PN ---
Subjective Progress Note Date: 05/14/24 CHIEF COMPLAINT: Gastritis HISTORY OF PRESENT ILLNESS: The patient is a 54-year-old female presents a history of intractable nausea and vomiting status post gastric jejunostomy and now status post EGD for gastritis. She is resting comfortably. ROS:No fevers or chills. No new chest pain. No productive sputum PHYSICAL EXAM: VITAL SIGNS: Reviewed CONSTITUTIONAL: Well developed and in no acute distress. EYES: Conjuctivae without sclera icterus. Extraocular movements grossly intact. HEAD, EARS, NOSE, THROAT: Moist buccal mucosa. Head is atraumatic, normocephalic. Hears conversational speech. No nasal drainage. RESPIRATORY: Non-labored respirations and equal bilateral excursions. CARDIOVASCULAR: Palpable 2+ radial pulses. ABDOMEN: No peritonitis MUSCULOSKELETAL: No gross deformity of the lower extremities noted. No clubbing. No cyanosis. SKIN: Good skin turgor. Well perfused. NEUROLOGIC: Cranial nerves II through XII grossly intact. No focal or lateralizing signs. PSYCH: Appropriate affect. Alert and oriented to person, place and time. CLINICAL LABS: Reviewed. WBC normal from leukocytosis present on admission. ASSESSMENT: 1. Gastritis 2. Underweight, BMI 16.8 3. Tractable nausea and vomiting 4. Leukocytosis PLAN: 1. Antacids for gastritis advised 2. Monitor leukocytosis which is now improved Objective - Vital Signs Vital signs: Vital Signs Temp 98.1 F 05/14/24 12:11 Pulse 100 05/14/24 12:38 Resp 17 05/14/24 12:11 BP 131/71 05/14/24 12:11 Pulse Ox 94 L 05/14/24 12:11 FiO2 Intake & Output 05/13/24 05/14/24 05/14/24 18:59 06:59 18:59 Intake Total 100 1560 Balance 100 1560 Weight 38.4 kg 37.7 kg Intake: IV 100 Oral 1560 Other: # Voids 1 5 - Labs CBC & Chem 7: 05/13/24 04:46 05/14/24 06:53 Labs: Abnormal Lab Results - Last 24 Hours (Table) 05/13/24 05/13/24 05/13/24 Range/Units 14:52 17:04 20:06 D-Dimer 0.78 H (<0.60) mg/L FEU Chloride (98-107) mmol/L Carbon Dioxide (22-30) mmol/L BUN (7-17) mg/dL Glucose (74-99) mg/dL POC Glucose (mg/dL) 124 H 131 H (70-110) mg/dL 05/14/24 05/14/24 05/14/24 Range/Units 03:42 06:53 07:24 D-Dimer (<0.60) mg/L FEU Chloride 109 H (98-107) mmol/L Carbon Dioxide 20 L (22-30) mmol/L BUN 6 L (7-17) mg/dL Glucose 146 H (74-99) mg/dL POC Glucose (mg/dL) 133 H 140 H (70-110) mg/dL
[2024-05-14 17:05] LABS: Glucose,Whole Blood 109 mg/dL (70-110)
[2024-05-14 19:44] LABS: Glucose,Whole Blood 108 mg/dL (70-110)
[2024-05-14 20:21] LABS: Glucose,Whole Blood 98 mg/dL (70-110)
[2024-05-15 03:21] LABS: Glucose,Whole Blood 93 mg/dL (70-110)
[2024-05-15 07:08] LABS: Glucose,Whole Blood 125 mg/dL (70-110)
[2024-05-15 10:35] LABS: BUN/Creat Ratio 7.62 Ratio (12.00-20.00); Blood Urea Nitrogen 6.1 mg/dL (9.0-27.0); Carbon Dioxide 20.6 mmol/L (21.6-31.8); Chloride 107 mmol/L (96-109); Glucose 115 mg/dL (70-110); Potassium 3.1 mmol/L (3.5-5.5); Sodium 142 mmol/L (135-145)
[2024-05-15] MEDS: HYDROmorphone 1 MG/ML 1 ML SYRINGE IVP STA (10:36)
[2024-05-15 12:06] LABS: Glucose,Whole Blood 138 mg/dL (70-110)
[2024-05-15] MEDS: POTASSIUM CHLORIDE ER 20 MEQ TAB.ER PO SCH (14:02)
--- NOTE | 2024-05-15 15:38 | P.PN ---
Subjective Progress Note Date: 05/15/24 Principal diagnosis: Reason for follow-up is abnormal CT question of infection Patient is a 54-year-old female with a past medical history significant for diabetes mellitus hypertension did have a history of diabetic gastroparesis with the jejunostomy tube for feeding patient presenting to the hospital for evaluation of nausea vomiting abdominal discomfort, did have CT abdominal chest did show some wall thickening edema of the stomach status post EGD completed by general surgery this morning with findings of gastritis. On today's evaluation that is 05/15/2024,the patient remains to be afebrile, patient is on room air not requiring supplemental oxygen and denies any short ness of breath no chest pain or cough.Patient denies having any nausea or vomiting, no abdominal pain and no diarrhea has been reported. Patient did have creatinine 0.8 Objective - Vital Signs Vital signs: Vital Signs Temp 98.1 F 05/15/24 12:42 Pulse 94 05/15/24 12:42 Resp 16 05/15/24 12:42 BP 104/71 05/15/24 12:42 Pulse Ox 95 05/15/24 12:42 FiO2 Intake & Output 05/14/24 05/15/24 05/15/24 18:59 06:59 18:59 Intake Total 1800 598 Balance 1800 598 Weight 35.3 kg 35.3 kg Intake: Oral 1800 598 Other: Voiding Method Toilet # Voids 5 1 - Exam GENERAL DESCRIPTION: Middle-age female lying in bed in no distress RESPIRATORY SYSTEM: Unlabored breathing , decreased breath sounds at bases HEART: S1 S2 regular rate and rhythm , ABDOMEN: Soft , no tenderness EXTREMITIES: No edema feet - Labs CBC & Chem 7: 05/13/24 04:46 05/15/24 06:18 Labs: Abnormal Lab Results - Last 24 Hours (Table) 05/15/24 05/15/24 05/15/24 Range/Units 06:18 07:07 12:02 Potassium 3.1 L (3.5-5.5) mmol/L Carbon Dioxide 20.6 L (21.6-31.8) mmol/L Anion Gap 14.40 H (4.00-12.00) mmol/L BUN 6.1 L (9.0-27.0) mg/dL BUN/Creatinine Ratio 7.62 L (12.00-20.00) Ratio Glucose 115 H (70-110) mg/dL POC Glucose (mg/dL) 125 H 138 H (70-110) mg/dL Calcium 8.0 L (8.7-10.3) mg/dL Assessment and Plan (1) Leukocytosis Current Visit: No Status: Acute Code(s): D72.829 - ELEVATED WHITE BLOOD CELL COUNT, UNSPECIFIED SNOMED Code(s): 573590989 Plan: 1patient presenting to the hospital with abdominal pain nausea and vomiting which apparently has been similar to her previous episode of diabetic gastroparesis patient has been afebrile white count is mildly elevated did have some thickening of the stomach on the CT abdominal could be related to gastritis gastroparesis clinic suspicious low for infectious etiology, patient to have normal procalcitonin CT chest did not show any pneumonia UA has been negative 2patient white count has normalized and no clinical focus of infection, patient Rocephin has been discontinued and is currently being monitored off antibiotics and seem to be doing well Dictation was produced using [employer] dictation software. please excuse any grammatical, word or spelling errors. Time with Patient: Less than 30
[2024-05-15] MEDS: HYDROcodone/APAP 10-325MG 1 EACH TAB PO PRN (16:12)
[2024-05-15 17:29] LABS: Glucose,Whole Blood 176 mg/dL (70-110)
--- NOTE | 2024-05-15 18:32 | P.PN ---
Subjective Progress Note Date: 05/15/24 This is a pleasant 54 year old female follows with [facility]. Patient came in for nausea vomiting dehydration as well as severe abdominal pain. CT of the chest abdomen pelvis reveals infectious versus inflammatory gastroenteritis. She has not moved her bowels in 2 days she does have normal active bowel sounds in all 4 quadrants. Patient did go for EGD today which does show a mild gastritis. She is maintained on a full liquid diet on an outpatient basis and uses a J-tube for feedings. Which are currently on hold at this time. She is receiving around the clock IV pain medications for the abominal pain. Patient has been having tachycardia since admission heart rate up into the 120s. Soren puente but her prior admission back in February for the same at that time it was felt to be due to an infectious process and related to sepsis cardiology did not recommend to treat the tachycardia at that time. She also had an echocardiogram completed with normal LV function. This time there does not appear to be any clear-cut infectious process going on with the exception of some mild enteritis. Patient was started on a low-dose beta-eligio metoprolol 12.5 mg twice a day. 05/14/2024 Patient is evaluated today in follow up on the medical floor. Patient not reporting any nausea vomiting or diarrhea today. Still has significant abdominal pain. Tube feedings remain on hold. On full liquid diet. Patient had a fall overnight getting take up in her IV tubing will try to get up out of bed. She had a knee x-ray completed because she did fall on her right knee that was concern for a possible fracture. Orthopedics evaluated patient follow-up in the CT reveals no fracture visualized to complete with radiographic finding. There is diffuse osseous demineralization present if there remains a concern consider MRI. There is mild degenerative changes of the knee. She is continued to be able to bear weight as tolerated with no further recommendations at this time based on the CT report. Renal function is normal. Started on oral metoprolol for the tachycardia her heart rate is improved and blood pressure slowing improving. Her heart rate is coming down slowly and her blood pressure is also improved. 05.15.2024 Patient is evaluated today in follow up. Was having moments of confusion overnight. Stopped all narcotics except percocet. Patient agreeable with this. Dietary on with plans to resume tube feedings today. Continues on full liquid diet. Potassium 3.1 today. Review of Systems Constitutional: Denied any fatigue denied any fever. Cardio vascular: denied any chest pain, palpitations Gastrointestinal: denied any nausea, vomiting, diarrhea Pulmonary: Denied any shortness of breath cough Neurologic denied any new focal deficits All inpatient medications were reviewed and appropriate changes in these medications as dictated in the interval history and assessment and plan. PHYSICAL EXAMINATION: GENERAL: The patient is alert and oriented x3, not in any acute distress. Well developed, well nourished. HEENT: Pupils are round and equally reacting to light. EOMI. No scleral icterus. No conjunctival pallor. Normocephalic, atraumatic. No pharyngeal erythema. No thyromegaly. CARDIOVASCULAR: S1 and S2 present. No murmurs, rubs, or gallops. PULMONARY: Chest is clear to auscultation, no wheezing or crackles. ABDOMEN: Soft, nontender, nondistended, normoactive bowel sounds. No palpable organomegaly. MUSCULOSKELETAL: No joint swelling or deformity. EXTREMITIES: No cyanosis, clubbing, or pedal edema. NEUROLOGICAL: Gross neurological examination did not reveal any focal deficits. SKIN: No rashes. Assessment and Plan Abdominal pain secondary to diabetic gastroparesis Mild gastritis on EGD continues on PPI Follow-up while in the hospital on the right knee knee CT reveals no acute fracture and patient is weightbearing as tolerated. Elevated lipase with mild acute pancreatitis which has resolved. Lipase is normal today. Mild acute kidney injury prerenal azotemia secondary to dehydration from poor oral intake on admission Hyperkalemia from the PHANI on admission which has normalized Diabetes Mellitus type 2 Hypertension Sinus tachycardia Diabetic neuropathy History of MDRO GI prophylaxis DVT prophylaxis Plan Continue full liquid diet Continue supportive care for the acute abdominal pain Tube feedings to be resumed today Infectious disease following and recommending to monitor the patient off antibiotics at this time no clear evidence for underlying infectious process. Stop the IV ceftriaxone Decrease fluids to normal saline at 75 mls/hr Metoprolol increased up to 25 mg twice a day and heart rate is now controlled, blood pressure is also improved. Continue accuchecks ACHS and sliding scale insulin Repeat BMP tomorrow The impression and plan of care has been dictated by Kimberley Victoria Nurse Practitioner as directed. Dr. Marlene MD I have performed a history and physical examination and medical decision making of this patient, discussed the same with the dictator, and agree with the dictators assessment and plan as written, documented as a scribe. Based on total visit time, I have performed more than 50% of this visit. Objective - Vital Signs Vital signs: Vital Signs Temp 98.1 F 05/15/24 12:42 Pulse 94 05/15/24 12:42 Resp 16 05/15/24 12:42 BP 104/71 05/15/24 12:42 Pulse Ox 95 05/15/24 12:42 FiO2 Intake & Output 05/14/24 05/15/24 05/15/24 18:59 06:59 18:59 Intake Total 1800 598 Balance 1800 598 Weight 35.3 kg 35.3 kg Intake: Oral 1800 598 Other: Voiding Method Toilet # Voids 5 1 - Labs CBC & Chem 7: 05/13/24 04:46 05/15/24 06:18 Labs: Abnormal Lab Results - Last 24 Hours (Table) 05/15/24 05/15/24 05/15/24 Range/Units 06:18 07:07 12:02 Potassium 3.1 L (3.5-5.5) mmol/L Carbon Dioxide 20.6 L (21.6-31.8) mmol/L Anion Gap 14.40 H (4.00-12.00) mmol/L BUN 6.1 L (9.0-27.0) mg/dL BUN/Creatinine Ratio 7.62 L (12.00-20.00) Ratio Glucose 115 H (70-110) mg/dL POC Glucose (mg/dL) 125 H 138 H (70-110) mg/dL Calcium 8.0 L (8.7-10.3) mg/dL 05/15/24 Range/Units 17:27 Potassium (3.5-5.5) mmol/L Carbon Dioxide (21.6-31.8) mmol/L Anion Gap (4.00-12.00) mmol/L BUN (9.0-27.0) mg/dL BUN/Creatinine Ratio (12.00-20.00) Ratio Glucose (70-110) mg/dL POC Glucose (mg/dL) 176 H (70-110) mg/dL Calcium (8.7-10.3) mg/dL Assessment and Plan Time with Patient: Less than 30
[2024-05-15 20:28] LABS: Glucose,Whole Blood 114 mg/dL (70-110)
--- NOTE | 2024-05-15 21:34 | P.PN ---
Subjective Progress Note Date: 05/15/24 CHIEF COMPLAINT: Gastritis HISTORY OF PRESENT ILLNESS: The patient is a 54-year-old female with chronic tractable nausea and vomiting. Today, patient reports mostly lower abdominal pain. She had prior upper endoscopy unremarkable. Blood sugars has been controlled under 150. She has pre-existing history of diabetic gastroparesis. ROS:No fevers or chills. No new chest pain. No productive sputum PHYSICAL EXAM: VITAL SIGNS: Reviewed CONSTITUTIONAL: Well developed and in no acute distress. EYES: Conjuctivae without sclera icterus. Extraocular movements grossly intact. HEAD, EARS, NOSE, THROAT: Moist buccal mucosa. Head is atraumatic, normocephalic. Hears conversational speech. No nasal drainage. RESPIRATORY: Non-labored respirations and equal bilateral excursions. CARDIOVASCULAR: Palpable 2+ radial pulses. ABDOMEN: No peritonitis. Tender lower abdomen. MUSCULOSKELETAL: No gross deformity of the lower extremities noted. No clubbing. No cyanosis. SKIN: Good skin turgor. Well perfused. NEUROLOGIC: Cranial nerves II through XII grossly intact. No focal or lateralizing signs. PSYCH: Appropriate affect. Alert and oriented to person, place and time. CLINICAL LABS: Reviewed. Blood sugars 114-130s. ASSESSMENT: 1. Gastritis 2. Underweight, BMI 16.8 3. Intractable nausea and vomiting with abdominal pain 4. Leukocytosis 5. Diabetic gastroparesis. PLAN: 1. Antiemetics for nausea and vomiting. 2. Supportive care for chronic abdominal pain. Objective - Vital Signs Vital signs: Vital Signs Temp 97.9 F 05/15/24 20:00 Pulse 106 H 05/15/24 20:00 Resp 14 05/15/24 20:00 BP 153/88 05/15/24 20:00 Pulse Ox 97 05/15/24 20:00 FiO2 Intake & Output 05/15/24 05/15/24 05/16/24 06:59 18:59 06:59 Intake Total 1078 Balance 1078 Weight 35.3 kg 35.3 kg Intake: Oral 1078 Other: Voiding Method Toilet # Voids 1 - Labs CBC & Chem 7: 05/13/24 04:46 05/15/24 06:18 Labs: Abnormal Lab Results - Last 24 Hours (Table) 05/15/24 05/15/24 05/15/24 Range/Units 06:18 07:07 12:02 Potassium 3.1 L (3.5-5.5) mmol/L Carbon Dioxide 20.6 L (21.6-31.8) mmol/L Anion Gap 14.40 H (4.00-12.00) mmol/L BUN 6.1 L (9.0-27.0) mg/dL BUN/Creatinine Ratio 7.62 L (12.00-20.00) Ratio Glucose 115 H (70-110) mg/dL POC Glucose (mg/dL) 125 H 138 H (70-110) mg/dL Calcium 8.0 L (8.7-10.3) mg/dL 05/15/24 05/15/24 Range/Units 17:27 20:26 Potassium (3.5-5.5) mmol/L Carbon Dioxide (21.6-31.8) mmol/L Anion Gap (4.00-12.00) mmol/L BUN (9.0-27.0) mg/dL BUN/Creatinine Ratio (12.00-20.00) Ratio Glucose (70-110) mg/dL POC Glucose (mg/dL) 176 H 114 H (70-110) mg/dL Calcium (8.7-10.3) mg/dL
[2024-05-15] MEDS: ALPRAZolam 0.25 MG TAB PO PRN (21:45)
[2024-05-16 07:08] LABS: Glucose,Whole Blood 332 mg/dL (70-110)
[2024-05-16 09:33] LABS: Glucose,Whole Blood 298 mg/dL (70-110)
[2024-05-16] MEDS: INSULIN DETEMIR (LEVEMIR) 100 UNIT/ML SYR SQ SCH (10:22)
[2024-05-16 10:49] LABS: African American GFR (CKD) >90 (>60 ml/min/1.73 sqM); Anion Gap 7 mmol/L; Blood Urea Nitrogen 13 mg/dL (7-17); Calcium 8.6 mg/dL (8.4-10.2); Carbon Dioxide 21 mmol/L (22-30); Chloride 112 mmol/L (98-107); Glucose 268 mg/dL (74-99); Non-African American GFR(CKD) >90 (>60 ml/min/1.73 sqM); Sodium 140 mmol/L (137-145)
[2024-05-16 12:15] LABS: Glucose,Whole Blood 293 mg/dL (70-110)
[2024-05-16] MEDS: KETOROLAC 15 MG/ML 1 ML VIAL IVP PRN (12:28)
--- NOTE | 2024-05-16 15:39 | P.PN ---
Subjective Progress Note Date: 05/16/24 CHIEF COMPLAINT: Gastritis HISTORY OF PRESENT ILLNESS: The patient is a 54-year-old female with chronic tractable nausea and vomiting. Patient is resting comfortably. Tube feeds has been elevated to 57 cc/h and tolerating. ROS:No fevers or chills. No new chest pain. No productive sputum PHYSICAL EXAM: VITAL SIGNS: Reviewed CONSTITUTIONAL: Well developed and in no acute distress. EYES: Conjuctivae without sclera icterus. Extraocular movements grossly intact. HEAD, EARS, NOSE, THROAT: Moist buccal mucosa. Head is atraumatic, normocephalic. Hears conversational speech. No nasal drainage. RESPIRATORY: Non-labored respirations and equal bilateral excursions. CARDIOVASCULAR: Palpable 2+ radial pulses. ABDOMEN: No peritonitis. MUSCULOSKELETAL: No gross deformity of the lower extremities noted. No clubbing. No cyanosis. SKIN: Good skin turgor. Well perfused. NEUROLOGIC: Cranial nerves II through XII grossly intact. No focal or lateralizing signs. PSYCH: Appropriate affect. Alert and oriented to person, place and time. CLINICAL LABS: Reviewed. Blood sugar glucose 268. Potassium elevated 5.0. ASSESSMENT: 1. Gastritis 2. Underweight, BMI 16.8 3. Intractable nausea and vomiting with abdominal pain 4. Leukocytosis 5. Diabetic gastroparesis. PLAN: 1. Her leukocytosis is now resolved and she is off antibiotics. 2. Management of gastroparesis with tube feeds at this time which she is tolerating. Objective - Vital Signs Vital signs: Vital Signs Temp 98.7 F 05/16/24 14:00 Pulse 116 H 05/16/24 14:00 Resp 17 05/16/24 14:00 BP 122/80 05/16/24 14:00 Pulse Ox 97 05/16/24 14:00 FiO2 Intake & Output 05/15/24 05/16/24 05/16/24 18:59 06:59 18:59 Intake Total 1078 720 Balance 1078 720 Weight 35.3 kg 36.4 kg Intake: Oral 1078 720 Other: Voiding Method Toilet Toilet - Labs CBC & Chem 7: 05/13/24 04:46 05/16/24 10:13 Labs: Abnormal Lab Results - Last 24 Hours (Table) 05/15/24 05/15/24 05/16/24 Range/Units 17:27 20:26 07:07 Chloride (98-107) mmol/L Carbon Dioxide (22-30) mmol/L Glucose (74-99) mg/dL POC Glucose (mg/dL) 176 H 114 H 332 H (70-110) mg/dL 05/16/24 05/16/24 05/16/24 Range/Units 09:32 10:13 12:13 Chloride 112 H (98-107) mmol/L Carbon Dioxide 21 L (22-30) mmol/L Glucose 268 H (74-99) mg/dL POC Glucose (mg/dL) 298 H 293 H (70-110) mg/dL
--- NOTE | 2024-05-16 16:23 | P.PN ---
Subjective Progress Note Date: 05/16/24 Principal diagnosis: Reason for follow-up is abnormal CT question of infection Patient is a 54-year-old female with a past medical history significant for diabetes mellitus hypertension did have a history of diabetic gastroparesis with the jejunostomy tube for feeding patient presenting to the hospital for evaluation of nausea vomiting abdominal discomfort, did have CT abdominal chest did show some wall thickening edema of the stomach status post EGD completed by general surgery this morning with findings of gastritis. On today's evaluation that is 05/16/2024, the patient continues to be afebrile, the patient is on room air and breathing comfortably, the Pt denies having any chest pain or cough, the patient mentions not having a problem with vomiting last evening also some abdominal discomfort no diarrhea. Patient did have a creatinine 0.66 Objective - Vital Signs Vital signs: Vital Signs Temp 98.7 F 05/16/24 14:00 Pulse 116 H 05/16/24 14:00 Resp 17 05/16/24 14:00 BP 122/80 05/16/24 14:00 Pulse Ox 97 05/16/24 14:00 FiO2 Intake & Output 05/15/24 05/16/24 05/16/24 18:59 06:59 18:59 Intake Total 1078 720 Balance 1078 720 Weight 35.3 kg 36.4 kg Intake: Oral 1078 720 Other: Voiding Method Toilet Toilet - Exam GENERAL DESCRIPTION: Middle-age female lying in bed in no distress RESPIRATORY SYSTEM: Unlabored breathing , decreased breath sounds at bases HEART: S1 S2 regular rate and rhythm , ABDOMEN: Soft , no tenderness EXTREMITIES: No edema feet - Labs CBC & Chem 7: 05/13/24 04:46 05/16/24 10:13 Labs: Abnormal Lab Results - Last 24 Hours (Table) 05/15/24 05/15/24 05/16/24 Range/Units 17:27 20:26 07:07 Chloride (98-107) mmol/L Carbon Dioxide (22-30) mmol/L Glucose (74-99) mg/dL POC Glucose (mg/dL) 176 H 114 H 332 H (70-110) mg/dL 05/16/24 05/16/24 05/16/24 Range/Units 09:32 10:13 12:13 Chloride 112 H (98-107) mmol/L Carbon Dioxide 21 L (22-30) mmol/L Glucose 268 H (74-99) mg/dL POC Glucose (mg/dL) 298 H 293 H (70-110) mg/dL Assessment and Plan (1) Leukocytosis Current Visit: No Status: Acute Code(s): D72.829 - ELEVATED WHITE BLOOD CELL COUNT, UNSPECIFIED SNOMED Code(s): 244910383 Plan: 1patient presenting to the hospital with abdominal pain nausea and vomiting wh ich apparently has been similar to her previous episode of diabetic gastroparesis patient has been afebrile white count is mildly elevated did have some thickening of the stomach on the CT abdominal could be related to gastritis gastroparesis clinic suspicious low for infectious etiology, patient to have normal procalcitonin CT chest did not show any pneumonia UA has been negative 2patient white count has normalized and no clinical focus of infection, patient Rocephin has been discontinued, remains to be afebrile seem to have issues with recurrent vomiting possible gastroparesis being monitored by general surgery Dictation was produced using [employer] dictation software. please excuse any gram matical, word or spelling errors. Time with Patient: Less than 30
[2024-05-16 17:08] LABS: Glucose,Whole Blood 141 mg/dL (70-110)
--- NOTE | 2024-05-16 18:21 | P.PN ---
Subjective Progress Note Date: 05/16/24 This is a pleasant 54 year old female follows with Dell Pike. Patient came in for nausea vomiting dehydration as well as severe abdominal pain. CT of the chest abdomen pelvis reveals infectious versus inflammatory gastroenteritis. She has not moved her bowels in 2 days she does have normal active bowel sounds in all 4 quadrants. Patient did go for EGD today which does show a mild gastritis. She is maintained on a full liquid diet on an outpatient basis and uses a J-tube for feedings. Which are currently on hold at this time. She is receiving around the clock IV pain medications for the abominal pain. Patient has been having tachycardia since admission heart rate up into the 120s. Soren puente but her prior admission back in February for the same at that time it was felt to be due to an infectious process and related to sepsis cardiology did not recommend to treat the tachycardia at that time. She also had an echocardiogram completed with normal LV function. This time there does not appear to be any clear-cut infectious process going on with the exception of some mild enteritis. Patient was started on a low-dose beta-eligio metoprolol 12.5 mg twice a day. 05/14/2024 Patient is evaluated today in follow up on the medical floor. Patient not reporting any nausea vomiting or diarrhea today. Still has significant abdominal pain. Tube feedings remain on hold. On full liquid diet. Patient had a fall overnight getting take up in her IV tubing will try to get up out of bed. She had a knee x-ray completed because she did fall on her right knee that was concern for a possible fracture. Orthopedics evaluated patient follow-up in the CT reveals no fracture visualized to complete with radiographic finding. There is diffuse osseous demineralization present if there remains a concern consider MRI. There is mild degenerative changes of the knee. She is continued to be able to bear weight as tolerated with no further recommendations at this time based on the CT report. Renal function is normal. Started on oral metoprolol for the tachycardia her heart rate is improved and blood pressure slowing improving. Her heart rate is coming down slowly and her blood pressure is also improved. 05.15.2024 Patient is evaluated today in follow up. Was having moments of confusion overnight. Stopped all narcotics except percocet. Patient agreeable with this. Dietary on with plans to resume tube feedings today. Continues on full liquid diet. Potassium 3.1 today. 05/16/2024 Patient requesting IV narcotics. Continues on percocet and will add IV toradol. She is no longer confused or hallucinating. Tube feedings running at 50 mL with a goal rate of 54ml/hr so far she is tolerating this. [place] 1.4 54 mls/hr with 30 ml water flush every 4 hours recommended. Pain management has been consulted for this patient. Heart rate in the 90s now. Continues on oral metoprolol. Would recommend to continue this on discharge. Review of Systems Constitutional: Denied any fatigue denied any fever. Cardio vascular: denied any chest pain, palpitations Gastrointestinal: denied any nausea, vomiting, diarrhea Pulmonary: Denied any shortness of breath cough Neurologic denied any new focal deficits All inpatient medications were reviewed and appropriate changes in these medications as dictated in the interval history and assessment and plan. PHYSICAL EXAMINATION: GENERAL: The patient is alert and oriented x3, not in any acute distress. Well developed, well nourished. HEENT: Pupils are round and equally reacting to light. EOMI. No scleral icterus. No conjunctival pallor. Normocephalic, atraumatic. No pharyngeal erythema. No thyromegaly. CARDIOVASCULAR: S1 and S2 present. No murmurs, rubs, or gallops. PULMONARY: Chest is clear to auscultation, no wheezing or crackles. ABDOMEN: Soft, nontender, nondistended, normoactive bowel sounds. No palpable organomegaly. MUSCULOSKELETAL: No joint swelling or deformity. EXTREMITIES: No cyanosis, clubbing, or pedal edema. NEUROLOGICAL: Gross neurological examination did not reveal any focal deficits. SKIN: No rashes. Assessment and Plan Abdominal pain secondary to diabetic gastroparesis Mild gastritis on EGD continues on PPI Follow-up while in the hospital on the right knee knee CT reveals no acute fracture and patient is weightbearing as tolerated. Elevated lipase with mild acute pancreatitis which has resolved. Lipase is normal today. Mild acute kidney injury prerenal azotemia secondary to dehydration from poor oral intake on admission Hyperkalemia from the PHANI on admission which has normalized Diabetes Mellitus type 2 Hypertension Sinus tachycardia Diabetic neuropathy History of MDRO GI prophylaxis DVT prophylaxis Plan Continue full liquid diet Continue supportive care for the acute abdominal pain Tube feedings have been resumed and patient tolerating. Infectious disease following and recommending to monitor the patient off antibiotics at this time no clear evidence for underlying infectious process. Stop the IV ceftriaxone Decrease fluids to normal saline at 75 mls/hr Metoprolol increased up to 25 mg twice a day and heart rate is now controlled, blood pressure is also improved. Patient requesting IV narcotics. She continues on her home percocet rating her pain 9/10 and down to 7/10 with her oral pain medication. This is her baseline she reports that she comes to the ER when the pain becomes unbearable. Pain management has been consulted for further recommendations. Continue accuchecks ACHS and sliding scale insulin Repeat BMP tomorrow Dr Pike to take over care of this patient tomorrow 05/17/2024. The impression and plan of care has been dictated by Kimberley Victoria, Nurse Practitioner as directed. Dr. Marlene MD I have performed a history and physical examination and medical decision making of this patient, discussed the same with the dictator, and agree with the dictators assessment and plan as written, documented as a scribe. Based on total visit time, I have performed more than 50% of this visit. Objective - Vital Signs Vital signs: Vital Signs Temp 98.3 F 05/16/24 07:54 Pulse 111 H 05/16/24 07:54 Resp 16 05/16/24 07:54 BP 167/102 05/16/24 07:54 Pulse Ox 96 05/16/24 07:54 FiO2 Intake & Output 05/15/24 05/16/24 05/16/24 18:59 06:59 18:59 Intake Total 1078 240 Balance 1078 240 Weight 35.3 kg 36.4 kg Intake: Oral 1078 240 Other: Voiding Method Toilet Toilet - Labs CBC & Chem 7: 05/13/24 04:46 05/16/24 10:13 Labs: Abnormal Lab Results - Last 24 Hours (Table) 05/15/24 05/15/24 05/15/24 Range/Units 06:18 12:02 17:27 Potassium 3.1 L (3.5-5.5) mmol/L Carbon Dioxide 20.6 L (21.6-31.8) mmol/L Anion Gap 14.40 H (4.00-12.00) mmol/L BUN 6.1 L (9.0-27.0) mg/dL BUN/Creatinine Ratio 7.62 L (12.00-20.00) Ratio Glucose 115 H (70-110) mg/dL POC Glucose (mg/dL) 138 H 176 H (70-110) mg/dL Calcium 8.0 L (8.7-10.3) mg/dL 05/15/24 05/16/24 05/16/24 Range/Units 20:26 07:07 09:32 Potassium (3.5-5.5) mmol/L Carbon Dioxide (21.6-31.8) mmol/L Anion Gap (4.00-12.00) mmol/L BUN (9.0-27.0) mg/dL BUN/Creatinine Ratio (12.00-20.00) Ratio Glucose (70-110) mg/dL POC Glucose (mg/dL) 114 H 332 H 298 H (70-110) mg/dL Calcium (8.7-10.3) mg/dL Assessment and Plan Time with Patient: Less than 30
[2024-05-16 20:03] LABS: Glucose,Whole Blood 237 mg/dL (70-110)
[2024-05-17 07:05] LABS: Glucose,Whole Blood 337 mg/dL (70-110)
[2024-05-17 11:19] LABS: African American GFR (CKD) >90 (>60 ml/min/1.73 sqM); Anion Gap 5 mmol/L; Blood Urea Nitrogen 32 mg/dL (7-17); Calcium 7.6 mg/dL (8.4-10.2); Carbon Dioxide 22 mmol/L (22-30); Chloride 109 mmol/L (98-107); Glucose 137 mg/dL (74-99); Magnesium 1.9 mg/dL (1.6-2.3); Non-African American GFR(CKD) >90 (>60 ml/min/1.73 sqM); Potassium 4.3 mmol/L (3.5-5.1); Sodium 136 mmol/L (137-145)
[2024-05-17 11:46] LABS: Basophils # (A) 0.1 k/uL (0-0.2); Basophils % (A) 1 %; Eosinophils # (A) 0.2 k/uL (0-0.7); Eosinophils % (A) 2 %; HCT 34.1 % (34.0-46.0); HGB 10.6 gm/dL (11.4-16.0); Lymphocytes # (A) 1.8 k/uL (1.0-4.8); Lymphocytes % (A) 21 %; MCH 28.5 pg (25.0-35.0); MCHC 31.2 g/dL (31.0-37.0); MCV 91.5 fL (80.0-100.0); Mean Platelet Volume 7.9; Monocytes # (A) 0.4 k/uL (0-1.0); Monocytes % (A) 5 %; Neutrophils # (A) 5.9 k/uL (1.3-7.7); Neutrophils % (A) 70 %; Platelet Count 333 k/uL (150-450); RBC 3.72 m/uL (3.80-5.40); RDW 15.5 % (11.5-15.5); WBC 8.4 k/uL (3.8-10.6)
[2024-05-17 12:07] LABS: Glucose,Whole Blood 82 mg/dL (70-110)
--- NOTE | 2024-05-17 15:14 | P.PN ---
Subjective Progress Note Date: 05/17/24 CHIEF COMPLAINT: Gastritis HISTORY OF PRESENT ILLNESS: The patient is a 54-year-old female with intractable nausea and vomiting. She reports she is tolerating her tube feeds which is at over 50 cc/h. She reports her cramping abdominal pain is improving. She is awaiting start of a new IV. ROS:No fevers or chills. No new chest pain. No productive sputum PHYSICAL EXAM: VITAL SIGNS: Reviewed CONSTITUTIONAL: Well developed and in no acute distress. EYES: Conjuctivae without sclera icterus. Extraocular movements grossly intact. HEAD, EARS, NOSE, THROAT: Moist buccal mucosa. Head is atraumatic, normocephalic. Hears conversational speech. No nasal drainage. RESPIRATORY: Non-labored respirations and equal bilateral excursions. CARDIOVASCULAR: Palpable 2+ radial pulses. ABDOMEN: No peritonitis. MUSCULOSKELETAL: No gross deformity of the lower extremities noted. No clubbing. No cyanosis. SKIN: Good skin turgor. Well perfused. NEUROLOGIC: Cranial nerves II through XII grossly intact. No focal or lateralizing signs. PSYCH: Appropriate affect. Alert and oriented to person, place and time. CLINICAL LABS: Reviewed. WBC today normal. Hemoglobin 10.6, anemia. Blood sugar glucose improved from 337-82. ASSESSMENT: 1. Gastritis 2. Underweight, BMI 16.8 3. Intractable nausea and vomiting with abdominal pain 4. Leukocytosis 5. Diabetic gastroparesis. 6. Anemia. 7. Diabetes type 2, hyperglycemia PLAN: 1. Continue tube feeds for goal for nutrition. 2. Diet as tolerated. 3. Tight glycemic control for diabetic gastroparesis Objective - Vital Signs Vital signs: Vital Signs Temp 98.1 F 05/17/24 13:05 Pulse 93 05/17/24 13:05 Resp 16 05/17/24 13:05 BP 110/71 05/17/24 13:05 Pulse Ox 100 05/17/24 13:05 FiO2 Intake & Output 05/16/24 05/17/24 05/17/24 18:59 06:59 18:59 Intake Total 720 Balance 720 Weight 36.5 kg Intake: Oral 720 Other: Voiding Method Toilet - Labs CBC & Chem 7: 05/17/24 11:00 05/17/24 11:00 Labs: Abnormal Lab Results - Last 24 Hours (Table) 1105/16/24 05/17/24 Range/Units 17:06 20:02 07:04 RBC (3.80-5.40) m/uL Hgb (11.4-16.0) gm/dL Sodium (137-145) mmol/L Chloride (98-107) mmol/L BUN (7-17) mg/dL Glucose (74-99) mg/dL POC Glucose (mg/dL) 141 H 237 H 337 H (70-110) mg/dL Calcium (8.4-10.2) mg/dL 05/17/24 05/17/24 Range/Units 11:00 11:00 RBC 3.72 L (3.80-5.40) m/uL Hgb 10.6 L (11.4-16.0) gm/dL Sodium 136 L (137-145) mmol/L Chloride 109 H (98-107) mmol/L BUN 32 H (7-17) mg/dL Glucose 137 H (74-99) mg/dL POC Glucose (mg/dL) (70-110) mg/dL Calcium 7.6 L (8.4-10.2) mg/dL
[2024-05-17] MEDS: HYDROmorphone 0.5 MG/0.5 ML SYRINGE IVP PRN (15:34)
[2024-05-17 17:10] LABS: Glucose,Whole Blood 176 mg/dL (70-110)
[2024-05-17] MEDS: IPRATROPIUM-ALBUTEROL 3 ML NEB INHALATION PRN (19:22)
[2024-05-17 20:15] LABS: Glucose,Whole Blood 207 mg/dL (70-110)
[2024-05-18 07:24] LABS: Glucose,Whole Blood 277 mg/dL (70-110)
--- NOTE | 2024-05-18 08:34 | PN ---
PROGRESS NOTE SUBJECTIVE: Lesa Patterson was admitted with pneumonia, diabetic ketoacidosis, abdominal pain, nausea, vomiting, blood pressure acceleration. The patient appears to be doing better today. OBJECTIVE: VITAL SIGNS: Pulse 109, temp 98.5, blood pressure 150/92, O2 sat 98% on room air. CARDIOVASCULAR: S1, S2. LUNGS: Transmitted upper sounds. GI: Soft. LABORATORY DATA: White count is 8.4, hemoglobin is 10.6, sodium 136, potassium is 4.3. Sugars are mid 100s to 200s. ASSESSMENT: Community-acquired pneumonia, acute on chronic abdominal pain, nausea, vomiting, gastritis. Tolerated tube feeds at 50 mL an hour. Gastritis, protein-calorie malnutrition, severe gastroparesis. Continue current treatments. Prognosis guarded. MMODL / IJN: [id number] /
[2024-05-18 08:35] LABS: Basophils # (A) 0.05 X 10*3/uL (0.00-0.10); Basophils % (A) 0.5 %; Eosinophils # (A) 0.37 X 10*3/uL (0.04-0.35); Eosinophils % (A) 3.7 %; HGB 10.4 g/dL (12.0-15.0); Lymphocytes # (A) 2.45 X 10*3/uL (0.90-5.00); Lymphocytes % (A) 24.4 %; MCH 28.6 pg (27.0-32.0); MCHC 31.5 g/dL (32.0-37.0); MCV 90.7 FL (80.0-97.0); Mean Platelet Volume 10.2 FL (9.5-12.2); Monocytes # (A) 0.68 X 10*3/uL (0.20-1.00); Monocytes % (A) 6.8 %; NRBC Per 100 WBC 0 X 10*3/uL (0.00-0.01); Neutrophils # (A) 6.45 X 10*3/uL (1.80-7.70); Neutrophils % (A) 64.3 %; Platelet Count 316 X 10*3/uL (140-440); RBC 3.64 X 10*6/uL (4.10-5.20); RDW 14.6 % (11.5-14.5); WBC 10.03 X 10*3/uL (4.50-10.00)
[2024-05-18 08:58] LABS: ALT 9 U/L (8-44); AST 13 U/L (13-35); Albumin 2.3 g/dL (3.8-4.9); Albumin/Globulin Ratio 1.05 Ratio (1.60-3.17); Alkaline Phosphatase 91 U/L (41-126); BUN/Creat Ratio 40.38 Ratio (12.00-20.00); Blood Urea Nitrogen 32.3 mg/dL (9.0-27.0); Calcium 7.6 mg/dL (8.7-10.3); Carbon Dioxide 24.2 mmol/L (21.6-31.8); Chloride 106 mmol/L (96-109); Globulin 2.2 g/dL (1.6-3.3); Glucose 256 mg/dL (70-110); Potassium 4.7 mmol/L (3.5-5.5); Sodium 137 mmol/L (135-145); Total Bilirubin <0.2 mg/dL (0.3-1.2); Total Protein 4.5 g/dL (6.2-8.2)
--- NOTE | 2024-05-18 11:15 | CDI ---
Documentation Clarification Form Date: 05/18/2024 10:27:38 AM From: Berkley Jaquez RN CCDS Phone: [phone] Admit Date: 05/12/2024 10:12:00 AM Patient Name: Lesa Patterson Visit Number: [id number] Discharge Date: ATTENTION: The Clinical Documentation Specialists (CDI) and [facility] Coding Staff appreciate your assistance in clarifying documentation. Please respond to the clarification below the line at the bottom and electronically sign. The CDI & [facility] Coding staff will review the response and follow-up if needed. Please note: Queries are made part of the Legal Health Record. If you have any questions, please contact the author of this message via ITS. Doctor: Dell Pike Pneumonia is documented 05/12 and 05/17, Medicine notes which may lack sufficient clinical evidence/support in the medical record. Additional clarification is requested. History/Risk Factors: 54 year old female presents to the ED with abdominal pain, nausea, vomiting for approximately a week and dehydration. Medical history: Multiple admissions for abdominal pain, nausea and vomiting. Uncontrolled DM2, Gastroparesis and hypertension. Clinical Indicators: Admission date 05/12: VSS: 05/12 B/P 129/80; HR 103; RR 12; Temp 98.4F Oral Labs: Wbc 05/10 9.7; 05/11 11.40; 05/[address], 05/11: No acute abnormality identified. Previous described new nodular density in the left upper lobe on prior study 02/26/2024 has resolved and likely reflected infectious inflammatory etiology. ID Consult, 05/14: CT abdominal could be related to gastritis gastroparesis clinic suspicious low for infectious etiology, patient to have normal procalcitonin CT chest did not show any pneumonia UA has been negative 2will monitor the patient closely off antibiotic therapy at this point is no obvious focus of infectious etiology Treatment: 05/12 05/13 Ceftriaxone IVPB Q24H, ID consult above. Please clarify if Pneumonia is a valid diagnosis? [ ] No, Pneumonia is ruled out [ ] Yes, Pneumonia is present as evidence by (additional clinical support): [ ] Other (please specify diagnosis) [ ] Unable to determine (Template Last Revised: November 2023) MTDD
[2024-05-18 11:25] VITALS: BMI 17.3
--- NOTE | 2024-05-18 11:46 | CDI ---
Documentation Clarification Form Date: 05/18/2024 11:16:29 AM From: eBrkley Jaquez RN CCDS Phone: [phone] Admit Date: 05/12/2024 10:12:00 AM Patient Name: Lesa Patterson Visit Number: [id number] Discharge Date: ATTENTION: The Clinical Documentation Specialists (CDI) and [facility] Coding Staff appreciate your assistance in clarifying documentation. Please respond to the clarification below the line at the bottom and electronically sign. The CDI & [facility] Coding staff will review the response and follow-up if needed. Please note: Queries are made part of the Legal Health Record. If you have any questions, please contact the author of this message via ITS. Doctor: Dell Pike Diabetic Ketoacidosis is documented 05/12, 05/17, Medicine notes which may lack sufficient clinical evidence/support in the medical record. Additional clarification is requested. History/Risk Factors: 54 year old female presents to the ED with abdominal pain, nausea, vomiting for approximately a week and dehydration. Medical history: Multiple admissions for abdominal pain, nausea and vomiting. Uncontrolled DM2, Gastroparesis and hypertension. Surgical consult, 05/11 Clinical Indicators: VSS: 05/12 B/P 129/80; HR 103; RR 12; Temp 98.4F Oral; Glucose: 05/10 349; 05/11 61; 05/12 126; 05/13 POC Glucose: 05/10 224; 99; - 05/11 77; 78; 70; 64; 127; - 05/12 91; 93; 114; 124 05/11 A1c 9.2 LABS: 05/10 K 5.7, Carbon dioxide 33, BUN 53, Alk Phos 157, Total Protein 8.6, Amylase 131, Lipase 534. 05/11: Chl 110; Carbon dioxide 20.5; Bun 28, Total protein 5.9 Albumin .30 lipase 71 Treatment: 05/10 Novolog 0unit SQ ACHS S/S; 05/11 Dextrose 50% 25ml IVP x 1; 05/16 Levemir 10units SQ Daily; 05/10 0.9NS 1L IV bolus . Please clarify if Diabetic ketoacidosis is a valid diagnosis? [ ] No, Diabetic ketoacidosis is ruled out [ ] Yes, Diabetic ketoacidosis is present as evidence by (additional clinical support): [ ] Other (please specify diagnosis) [ ] Unable to determine (Template Last Revised: November 2023) RUPERTOD
--- NOTE | 2024-05-18 11:59 | P.PN ---
Subjective Progress Note Date: 05/18/24 SURGICAL PROGRESS NOTE CHIEF COMPLAINT: Abdominal pain with nausea and vomiting HISTORY OF PRESENT ILLNESS: Patient reports that she is feeling better. Tube feeds are at 54 mL/h. She has had no further vomiting. She is having bowel movements. Her pain is improving. She is asking for advancement of her food. She is status post EGD revealing gastritis. PHYSICAL EXAM: VITAL SIGNS: Reviewed. GENERAL: Well-developed in no acute distress. ABDOMEN: Soft. Nondistended. Nontender. PEG tube site clean dry and intact NEUROLOGIC: Alert and oriented. Cranial nerves II through XII grossly intact. ASSESSMENT: 1. Abdominal pain with nausea and vomiting. Likely related to pancreatitis and gastroparesis. Status post EGD revealing gastritis. 2. Acute pancreatitis. History of cholecystectomy 3. Gastroparesis 4. Uncontrolled diabetes mellitus PLAN: -Continue tube feeds -Advance diet to consistent carbohydrate soft foods -Recommend tight glycemic control for the diabetic gastroparesis -Continue Reglan Physician Pickle Sorter note has been reviewed by physician. Signing provider agrees with the documented findings, assessment, and plan of care. Objective - Vital Signs Vital signs: Vital Signs Temp 98.2 F 05/18/24 07:21 Pulse 104 H 05/18/24 08:41 Resp 16 05/18/24 07:21 BP 166/85 05/18/24 07:21 Pulse Ox 98 05/18/24 07:21 FiO2 Intake & Output 05/17/24 05/18/24 05/18/24 18:59 06:59 18:59 Intake Total 240 Balance 240 Weight 39 kg 39 kg Intake: Oral 240 Other: Voiding Method Toilet # Voids 1 - Labs CBC & Chem 7: 05/18/24 04:02 05/18/24 04:02 Labs: Abnormal Lab Results - Last 24 Hours (Table) 05/17/24 05/17/24 05/18/24 Range/Units 17:08 20:14 04:02 WBC 10.03 H (4.50-10.00) X 10*3/uL RBC 3.64 L (4.10-5.20) X 10*6/uL Hgb 10.4 L (12.0-15.0) g/dL Hct 33.0 L (37.2-46.3) % MCHC 31.5 L (32.0-37.0) g/dL RDW 14.6 H (11.5-14.5) % Eosinophils # 0.37 H (0.04-0.35) X 10*3/uL BUN (9.0-27.0) mg/dL BUN/Creatinine Ratio (12.00-20.00) Ratio Glucose (70-110) mg/dL POC Glucose (mg/dL) 176 H 207 H (70-110) mg/dL Calcium (8.7-10.3) mg/dL Total Bilirubin (0.3-1.2) mg/dL Total Protein (6.2-8.2) g/dL Albumin (3.8-4.9) g/dL Albumin/Globulin Ratio (1.60-3.17) Ratio 05/18/24 05/18/24 Range/Units 04:02 07:23 WBC (4.50-10.00) X 10*3/uL RBC (4.10-5.20) X 10*6/uL Hgb (12.0-15.0) g/dL Hct (37.2-46.3) % MCHC (32.0-37.0) g/dL RDW (11.5-14.5) % Eosinophils # (0.04-0.35) X 10*3/uL BUN 32.3 H (9.0-27.0) mg/dL BUN/Creatinine Ratio 40.38 H (12.00-20.00) Ratio Glucose 256 H (70-110) mg/dL POC Glucose (mg/dL) 277 H (70-110) mg/dL Calcium 7.6 L (8.7-10.3) mg/dL Total Bilirubin <0.2 L (0.3-1.2) mg/dL Total Protein 4.5 L (6.2-8.2) g/dL Albumin 2.3 L (3.8-4.9) g/dL Albumin/Globulin Ratio 1.05 L (1.60-3.17) Ratio
[2024-05-18 12:18] LABS: Glucose,Whole Blood 120 mg/dL (70-110)
[2024-05-18 15:59] LABS: Glucose,Whole Blood 94 mg/dL (70-110)
--- NOTE | 2024-05-18 16:09 | P.PAINPG ---
Objective - Vital Signs Vital signs: Vital Signs Temp 98.6 F 05/18/24 12:15 Pulse 103 H 05/18/24 12:15 Resp 16 05/18/24 07:21 BP 144/84 05/18/24 12:15 Pulse Ox 99 05/18/24 12:15 FiO2 Intake & Output 05/17/24 05/18/24 05/18/24 18:59 06:59 18:59 Intake Total 240 Balance 240 Weight 39 kg 39 kg Intake: Oral 240 Other: Voiding Method Toilet # Voids 1 1 # Bowel Movements 1 - Labs CBC & Chem 7: 05/18/24 04:02 05/18/24 04:02 Labs: Abnormal Lab Results - Last 24 Hours (Table) 05/17/24 05/17/24 05/18/24 Range/Units 17:08 20:14 04:02 WBC 10.03 H (4.50-10.00) X 10*3/uL RBC 3.64 L (4.10-5.20) X 10*6/uL Hgb 10.4 L (12.0-15.0) g/dL Hct 33.0 L (37.2-46.3) % MCHC 31.5 L (32.0-37.0) g/dL RDW 14.6 H (11.5-14.5) % Eosinophils # 0.37 H (0.04-0.35) X 10*3/uL BUN (9.0-27.0) mg/dL BUN/Creatinine Ratio (12.00-20.00) Ratio Glucose (70-110) mg/dL POC Glucose (mg/dL) 176 H 207 H (70-110) mg/dL Calcium (8.7-10.3) mg/dL Total Bilirubin (0.3-1.2) mg/dL Total Protein (6.2-8.2) g/dL Albumin (3.8-4.9) g/dL Albumin/Globulin Ratio (1.60-3.17) Ratio 05/18/24 05/18/24 05/18/24 Range/Units 04:02 07:23 12:16 WBC (4.50-10.00) X 10*3/uL RBC (4.10-5.20) X 10*6/uL Hgb (12.0-15.0) g/dL Hct (37.2-46.3) % MCHC (32.0-37.0) g/dL RDW (11.5-14.5) % Eosinophils # (0.04-0.35) X 10*3/uL BUN 32.3 H (9.0-27.0) mg/dL BUN/Creatinine Ratio 40.38 H (12.00-20.00) Ratio Glucose 256 H (70-110) mg/dL POC Glucose (mg/dL) 277 H 120 H (70-110) mg/dL Calcium 7.6 L (8.7-10.3) mg/dL Total Bilirubin <0.2 L (0.3-1.2) mg/dL Total Protein 4.5 L (6.2-8.2) g/dL Albumin 2.3 L (3.8-4.9) g/dL Albumin/Globulin Ratio 1.05 L (1.60-3.17) Ratio PQRS Measure Charge Sheet Comment: HISTORY OF PRESENT ILLNESS: A 54 yr old inpatient female as a referral from [facility] presents today w severe and chronic LE pain secondary to diabetic neuropathy and DJD for evaluation. Pt states pain level is provoked at 8 /10 in intensity, constant, localized in the LEs, sore in character without shooting pain . Pain is provoked by any movement. Pain is alleviated by medications (Dilaudid 1mg q4h IVP prn, Toradol 15mg IVP q6h prn, Percocet 10/325mg q6h prn), repositioning and rest . Pt normally receives [place] 10/325mg TID from Dr Pike. PMH: OA, NIDDM II, HTN, Diabetic Neuropathy, Anxiety PSH: R Adhesive Encapsulitis, Cholecystectomy, Orthopedic Surgery, Tubal Ligation, J Tube Placement SH: Daily tobacco use, No ETOH abuse, No Cannabis use FH: Fa- (Adopted). Mo- (Adopted) All: See list Meds: See list REVIEW OF ORGAN SYSTEMS: CONSTITUTIONAL: No fevers or chills. No recent weight loss. NEUROLOGICAL: + numbness and tingling along the distal extremities. No seizure disorders or headaches. MUSCULOSKELETAL: + pain PSYCHIATRIC: Denies current depression or suicidal thoughts. Physical Examinations : Constitutional : Cooperative , not in acute distress . Neurologic : Cranial nerve II to XII intact. No focal neurological deficits. Psychiatric : alert & oriented x 3. Matching mood & appropriate affect. Judgment & insight intact. Musculoskeletal : +Poor BLE 2 pt discrimination Cervical Spine Motor strength in the deltoid and biceps: Normal right side. Normal Left side Motor strength biceps and the wrist extensors: Normal right side . Normal left side Motor strength in the triceps muscle: Normal right side. Normal left side Deep tendon reflexes: Normal at the biceps. Normal at Brachioradialis. Normal at triceps Vertebral body tenderness to deep palpation over Cervical facet loading test: positive bilaterally Spurling test: positive bilaterally Neck distraction test: positive bilaterally Jannie sign: positive bilaterally Lumbar spine Motor strength lower extremities ,thigh and legs 5/5 Right side , 5/5 Left side Deep tendon reflexes : Normal Knee Jerk. Normal Ankle Jerk Vertebral body tenderness over Snyder Test positive Lumbar facet Loading Test: positive Right / positive Left Range of motion of the lumbar spine Flexion 30 degrees, extension 10 degrees Straight Leg Raise test: Left/ Right positive at degrees Selvin test: positive right / positive left. Severe tenderness over the Sacroiliac joint on the Right / Left sides Gaenslen test: positive bilaterally Seated flexion test: positive bilaterally. Sacral spine : Severe tenderness over the Sacroiliac joint: right side / left side Range of motion: Flexion of the lumbar spine <60 degrees Range of motion: Extension of the lumbar spine <20 degrees Gaenslen's Test positive Selvin test: positive right side / left side Thigh Thrust Test Sacral Thrust Test Assessment/ Plan : BL DJD, Diabetic Neuropathy Recommendation of medication management. [place] 10/325mg #18 NR Use, side effects, adverse reactions, safe storage discussed. All questions answered. I have spent greater than 30 minutes on patient care today. Dr Gatica was available by phone for the evaluation of this patient. The time was used to review the medical records including relevant urine studies and Prescription history (MAPs), review of the available imaging, evaluation and examination of the patient, coordination of care with the medical staff and if applicable referring physicians, as well as creation of the medical record - Pain Location Abdomen Non-Pharmacological Interventions: Darkened Room, Distraction Pharmacological Interventions: Scheduled Medication Pain Comment: see MAR for pain assessment - PRN Dilaudid recently given PQRS Narrative: Smoking Status Current every day smoker Blood Pressure [Right Arm] 144/84 Blood Pressure [Left Arm] 160/85 Blood Pressure 112/80 Pain Intensity [Abdomen] 8 Pain Intensity 3 Pain Scale Used Numeric (1 - 10) Scale Used Numeric (1 - 10) Home Medications: Ambulatory Orders ALPRAZolam [Xanax] 0.25 mg PO BID 05/12/23 Atorvastatin [Lipitor] 20 mg PO DAILY 05/12/23 Insulin Lispro [humaLOG Kwikpen] See Protocol SQ ACHS 05/12/23 Mirtazapine [Remeron] 30 mg PO HS 05/12/23 Metoclopramide [Reglan] 10 mg PO ACHS 30 Days #120 tab 05/15/23 Folic Acid 1 mg PO DAILY 06/15/23 Ferrous Sulfate [Iron (65 MG Elemental)] 325 mg PO DAILY 12/09/23 Insulin Glargine [Lantus Vial] 10 unit SQ DAILY 12/09/23 amLODIPine [Norvasc] 5 mg PO DAILY 90 Days #90 tab 12/19/23 Famotidine [Pepcid] 20 mg PO BID 30 Days #60 tab 01/18/24 Ondansetron [Zofran] 4 mg PO BID 02/21/24 methocarbamoL [Robaxin] 250 mg PO QID 02/21/24 Loperamide [Imodium] 2 mg PO QID PRN cap 03/10/24 Artificial Tears-Hypromellose [Artificial Tear Drops] 1 drop BOTH EYES QID PRN 03/19/24 Scopolamine [Scopolamine 1 MG/72 HR patch] 1 patch TRANSDERM Q72H 03/19/24 HYDROcodone/APAP 10-325MG [[place] 10-325] 1 tab PO TID 05/10/24 Omeprazole 40 mg PO DAILY 05/10/24 Controlled Substance Measures - Controlled Substance Measures Is patient prescribed a controlled substance at discharge?: Yes When asked, does pt state using other controlled substances?: Yes If prescribed controlled substance>3 days was MAPS reviewed?: Prescribed <3 Days
--- NOTE | 2024-05-18 16:30 | P.PN ---
Subjective Progress Note Date: 05/17/24 Principal diagnosis: Reason for follow-up is abnormal CT question of infection Patient is a 54-year-old female with a past medical history significant for diabetes mellitus hypertension did have a history of diabetic gastroparesis with the jejunostomy tube for feeding patient presenting to the hospital for evaluation of nausea vomiting abdominal discomfort, did have CT abdominal chest did show some wall thickening edema of the stomach status post EGD completed by general surgery this morning with findings of gastritis. On today's evaluation that is 05/17/2024, Patient is afebrile patient is currently on room air and denies having any shortness of breath, the patient denies any chest pain or cough, the patient still complaining of some nausea abdominal discomfort no significant diarrhea Patient white count is 8.4, creatinine 0.72 Objective - Vital Signs Vital signs: Vital Signs Temp 98.4 F 05/17/24 07:05 Pulse 109 H 05/17/24 07:05 Resp 15 05/17/24 07:05 BP 182/110 05/17/24 07:05 Pulse Ox 97 05/17/24 07:05 FiO2 Intake & Output 05/16/24 05/17/24 05/17/24 18:59 06:59 18:59 Intake Total 720 Balance 720 Weight 36.5 kg Intake: Oral 720 Other: Voiding Method Toilet - Exam GENERAL DESCRIPTION: Middle-age female lying in bed in no distress RESPIRATORY SYSTEM: Unlabored breathing , decreased breath sounds at bases HEART: S1 S2 regular rate and rhythm , ABDOMEN: Soft , no tenderness EXTREMITIES: No edema feet - Labs CBC & Chem 7: 05/18/24 04:02 05/18/24 04:02 Labs: Abnormal Lab Results - Last 24 Hours (Table) 05/16/24 05/16/24 05/17/24 Range/Units 17:06 20:02 07:04 RBC (3.80-5.40) m/uL Hgb (11.4-16.0) gm/dL Sodium (137-145) mmol/L Chloride (98-107) mmol/L BUN (7-17) mg/dL Glucose (74-99) mg/dL POC Glucose (mg/dL) 141 H 237 H 337 H (70-110) mg/dL Calcium (8.4-10.2) mg/dL 05/17/24 05/17/24 Range/Units 11:00 11:00 RBC 3.72 L (3.80-5.40) m/uL Hgb 10.6 L (11.4-16.0) gm/dL Sodium 136 L (137-145) mmol/L Chloride 109 H (98-107) mmol/L BUN 32 H (7-17) mg/dL Glucose 137 H (74-99) mg/dL POC Glucose (mg/dL) (70-110) mg/dL Calcium 7.6 L (8.4-10.2) mg/dL Assessment and Plan (1) Leukocytosis Current Visit: No Status: Acute Code(s): D72.829 - ELEVATED WHITE BLOOD CELL COUNT, UNSPECIFIED SNOMED Code(s): 928333480 Plan: 1patient presenting to the hospital with abdominal pain nausea and vomiting which apparently has been similar to her previous episode of diabetic gastroparesis patient has been afebrile white count is mildly elevated did have some thickening of the stomach on the CT abdominal could be related to gastritis gastroparesis clinic suspicious low for infectious etiology, patient to have normal procalcitonin CT chest did not show any pneumonia UA has been negative 2patient white count has normalized and no clinical focus of infection, patient Rocephin has been discontinued, 3the patient remains to be afebrile seem to have issues with recurrent vomiting possible gastroparesis for which the patient being managed by general surgery Dictation was produced using [employer] dictation software. please excuse any g rammatical, word or spelling errors. Time with Patient: Less than 30
--- NOTE | 2024-05-18 16:31 | P.PN ---
Subjective Progress Note Date: 05/18/24 Principal diagnosis: Reason for follow-up is abnormal CT question of infection Patient is a 54-year-old female with a past medical history significant for diabetes mellitus hypertension did have a history of diabetic gastroparesis with the jejunostomy tube for feeding patient presenting to the hospital for evaluation of nausea vomiting abdominal discomfort, did have CT abdominal chest did show some wall thickening edema of the stomach status post EGD completed by general surgery this morning with findings of gastritis. On today's evaluation that is 05/18/2024, patient has been afebrile, patient is breathing comfortably and is currently on room air, patient denies having any significant cough no chest pain, patient has been complaining of nausea but no vomiting still with abdominal pain and did have some loose stools. Patient white count is 10.03, creatinine 0.8 Objective - Vital Signs Vital signs: Vital Signs Temp 98.6 F 05/18/24 12:15 Pulse 103 H 05/18/24 12:15 Resp 16 05/18/24 07:21 BP 144/84 05/18/24 12:15 Pulse Ox 99 05/18/24 12:15 FiO2 Intake & Output 05/17/24 05/18/24 05/18/24 18:59 06:59 18:59 Intake Total 240 Balance 240 Weight 39 kg 39 kg Intake: Oral 240 Other: Voiding Method Toilet # Voids 1 1 # Bowel Movements 1 - Exam GENERAL DESCRIPTION: Middle-age female lying in bed in no distress RESPIRATORY SYSTEM: Unlabored breathing , decreased breath sounds at bases HEART: S1 S2 regular rate and rhythm , ABDOMEN: Soft , no tenderness EXTREMITIES: No edema feet - Labs CBC & Chem 7: 05/18/24 04:02 05/18/24 04:02 Labs: Abnormal Lab Results - Last 24 Hours (Table) 05/17/24 05/17/24 05/18/24 Range/Units 17:08 20:14 04:02 WBC 10.03 H (4.50-10.00) X 10*3/uL RBC 3.64 L (4.10-5.20) X 10*6/uL Hgb 10.4 L (12.0-15.0) g/dL Hct 33.0 L (37.2-46.3) % MCHC 31.5 L (32.0-37.0) g/dL RDW 14.6 H (11.5-14.5) % Eosinophils # 0.37 H (0.04-0.35) X 10*3/uL BUN (9.0-27.0) mg/dL BUN/Creatinine Ratio (12.00-20.00) Ratio Glucose (70-110) mg/dL POC Glucose (mg/dL) 176 H 207 H (70-110) mg/dL Calcium (8.7-10.3) mg/dL Total Bilirubin (0.3-1.2) mg/dL Total Protein (6.2-8.2) g/dL Albumin (3.8-4.9) g/dL Albumin/Globulin Ratio (1.60-3.17) Ratio 05/18/24 05/18/24 05/18/24 Range/Units 04:02 07:23 12:16 WBC (4.50-10.00) X 10*3/uL RBC (4.10-5.20) X 10*6/uL Hgb (12.0-15.0) g/dL Hct (37.2-46.3) % MCHC (32.0-37.0) g/dL RDW (11.5-14.5) % Eosinophils # (0.04-0.35) X 10*3/uL BUN 32.3 H (9.0-27.0) mg/dL BUN/Creatinine Ratio 40.38 H (12.00-20.00) Ratio Glucose 256 H (70-110) mg/dL POC Glucose (mg/dL) 277 H 120 H (70-110) mg/dL Calcium 7.6 L (8.7-10.3) mg/dL Total Bilirubin <0.2 L (0.3-1.2) mg/dL Total Protein 4.5 L (6.2-8.2) g/dL Albumin 2.3 L (3.8-4.9) g/dL Albumin/Globulin Ratio 1.05 L (1.60-3.17) Ratio Assessment and Plan (1) Leukocytosis Current Visit: No Status: Acute Code(s): D72.829 - ELEVATED WHITE BLOOD CELL COUNT, UNSPECIFIED SNOMED Code(s): 886178534 (2) Diarrhea Current Visit: No Status: Acute Code(s): R19.7 - DIARRHEA, UNSPECIFIED SNOMED Code(s): 56284084 Plan: 1patient presenting to the hospital with abdominal pain nausea and vomiting which apparently has been similar to her previous episode of diabetic gastroparesis patient has been afebrile white count is mildly elevated did have some thickening of the stomach on the CT abdominal could be related to gastritis gastroparesis clinic suspicious low for infectious etiology, patient to have normal procalcitonin CT chest did not show any pneumonia UA has been negative 2patient white count has normalized and no clinical focus of infection, patient Rocephin has been discontinued, 3the patient remains to be afebrile seem to have issues with recurrent vomiting possible gastroparesis for which the patient being managed by general surgery 4-patient is complaining of diarrhea we will add Questran for symptomatic relief Dictation was produced using [employer] software. please excuse any grammatical, word or spelling errors. Time with Patient: Less than 30
[2024-05-18 17:19] LABS: Glucose,Whole Blood 75 mg/dL (70-110)
[2024-05-18] MEDS: CHOLESTYRAMINE (WITH SUGAR) 4 GM PACKET PO SCH (18:21)
[2024-05-18 20:08] LABS: Glucose,Whole Blood 154 mg/dL (70-110)
--- NOTE | 2024-05-18 21:10 | PN ---
PROGRESS NOTE Pneumonia is present as evidenced by CT scan and clinical symptoms of diabetic ketoacidosis positive. MMODL / IJN: [id number] /
[2024-05-19 07:31] LABS: Glucose,Whole Blood 246 mg/dL (70-110)
[2024-05-19 08:22] LABS: Basophils # (A) 0.06 X 10*3/uL (0.00-0.10); Basophils % (A) 0.6 %; Eosinophils # (A) 0.44 X 10*3/uL (0.04-0.35); Eosinophils % (A) 4.6 %; HCT 32.4 % (37.2-46.3); HGB 10.6 g/dL (12.0-15.0); Lymphocytes # (A) 2.37 X 10*3/uL (0.90-5.00); Lymphocytes % (A) 24.8 %; MCH 30.3 pg (27.0-32.0); MCHC 32.7 g/dL (32.0-37.0); MCV 92.6 FL (80.0-97.0); Mean Platelet Volume 10.3 FL (9.5-12.2); Monocytes # (A) 0.72 X 10*3/uL (0.20-1.00); Monocytes % (A) 7.5 %; NRBC Per 100 WBC 0 X 10*3/uL (0.00-0.01); Neutrophils # (A) 5.91 X 10*3/uL (1.80-7.70); Neutrophils % (A) 62.1 %; Platelet Count 321 X 10*3/uL (140-440); RDW 14.7 % (11.5-14.5); WBC 9.54 X 10*3/uL (4.50-10.00)
--- NOTE | 2024-05-19 08:55 | PN ---
PROGRESS NOTE A 54-year-old white female with dehydration, community-acquired pneumonia, nausea, vomiting. Remains on broad-spectrum antibiotics. OBJECTIVE: CARDIOVASCULAR: S1, S2. LUNGS: Transmitted upper airway sounds. GI: Soft. HEMATOLOGY: Negative Homans. Tube feedings are being done appropriately. Continue rehydration. Diabetic control. A1c is improved. Treatment for pneumonia. Possibly home in a day or two. Prognosis guarded. MMODL / IJN: [id number] /
[2024-05-19 09:08] LABS: ALT 11 U/L (8-44); AST 14 U/L (13-35); Albumin 2.2 g/dL (3.8-4.9); Alkaline Phosphatase 93 U/L (41-126); BUN/Creat Ratio 42.43 Ratio (12.00-20.00); Blood Urea Nitrogen 29.7 mg/dL (9.0-27.0); Calcium 7.5 mg/dL (8.7-10.3); Carbon Dioxide 23.7 mmol/L (21.6-31.8); Chloride 107 mmol/L (96-109); Globulin 2.2 g/dL (1.6-3.3); Glucose 214 mg/dL (70-110); Potassium 4.9 mmol/L (3.5-5.5); Sodium 136 mmol/L (135-145); Total Bilirubin <0.2 mg/dL (0.3-1.2); Total Protein 4.4 g/dL (6.2-8.2)
[2024-05-19 11:57] LABS: Glucose,Whole Blood 124 mg/dL (70-110)
--- NOTE | 2024-05-19 12:53 | P.PN ---
Subjective Progress Note Date: 05/19/24 SURGICAL PROGRESS NOTE CHIEF COMPLAINT: Abdominal pain with nausea and vomiting HISTORY OF PRESENT ILLNESS: Patient continues to feel better. She is tolerating the soft diet. She is eating just a small amount. She is tolerating her tube feeds. No vomiting. Her nausea is back to her chronic baseline nausea. She is having bowel movements. Afebrile. PHYSICAL EXAM: VITAL SIGNS: Reviewed. GENERAL: Well-developed in no acute distress. ABDOMEN: Soft. Nondistended. Nontender. PEG tube site clean dry and intact NEUROLOGIC: Alert and oriented. Cranial nerves II through XII grossly intact. ASSESSMENT: 1. Abdominal pain with nausea and vomiting. Likely related to pancreatitis and gastroparesis. Status post EGD revealing gastritis. 2. Acute pancreatitis. Resolved. History of cholecystectomy 3. Gastroparesis 4. Uncontrolled diabetes mellitus PLAN: -Continue tube feeds -Continue consistent carbohydrate soft food diet -Recommend tight glycemic control for the diabetic gastroparesis -Continue Reglan -Patient can be discharge from surgical standpoint when medically cleared Physician Director Content Marketing note has been reviewed by physician. Signing provider agrees with the documented findings, assessment, and plan of care. Objective - Vital Signs Vital signs: Vital Signs Temp 98.1 F 05/19/24 07:29 Pulse 94 05/19/24 07:29 Resp 16 05/19/24 07:29 BP 144/79 05/19/24 07:29 Pulse Ox 98 05/19/24 07:29 FiO2 Intake & Output 05/18/24 05/19/24 05/19/24 18:59 06:59 18:59 Weight 39 kg 39.5 kg Other: Voiding Method Toilet # Voids 1 3 # Bowel Movements 1 2 - Labs CBC & Chem 7: 05/19/24 03:55 05/19/24 03:55 Labs: Abnormal Lab Results - Last 24 Hours (Table) 05/18/24 05/19/24 05/19/24 Range/Units 20:05 03:55 03:55 RBC 3.50 L (4.10-5.20) X 10*6/uL Hgb 10.6 L (12.0-15.0) g/dL Hct 32.4 L (37.2-46.3) % RDW 14.7 H (11.5-14.5) % Eosinophils # 0.44 H (0.04-0.35) X 10*3/uL BUN 29.7 H (9.0-27.0) mg/dL BUN/Creatinine Ratio 42.43 H (12.00-20.00) Ratio Glucose 214 H (70-110) mg/dL POC Glucose (mg/dL) 154 H (70-110) mg/dL Calcium 7.5 L (8.7-10.3) mg/dL Total Bilirubin <0.2 L (0.3-1.2) mg/dL Total Protein 4.4 L (6.2-8.2) g/dL Albumin 2.2 L (3.8-4.9) g/dL Albumin/Globulin Ratio 1.00 L (1.60-3.17) Ratio 05/19/24 05/19/24 Range/Units 07:30 11:55 RBC (4.10-5.20) X 10*6/uL Hgb (12.0-15.0) g/dL Hct (37.2-46.3) % RDW (11.5-14.5) % Eosinophils # (0.04-0.35) X 10*3/uL BUN (9.0-27.0) mg/dL BUN/Creatinine Ratio (12.00-20.00) Ratio Glucose (70-110) mg/dL POC Glucose (mg/dL) 246 H 124 H (70-110) mg/dL Calcium (8.7-10.3) mg/dL Total Bilirubin (0.3-1.2) mg/dL Total Protein (6.2-8.2) g/dL Albumin (3.8-4.9) g/dL Albumin/Globulin Ratio (1.60-3.17) Ratio
[2024-05-19] MEDS: DEXTROSE 50% SYRINGE 50 ML IVP PRN (13:24)
[2024-05-19 13:29] LABS: Glucose,Whole Blood 48 mg/dL (70-110)
[2024-05-19 13:44] LABS: Glucose,Whole Blood 250 mg/dL (70-110)
--- NOTE | 2024-05-19 15:49 | P.PN ---
Subjective Progress Note Date: 05/19/24 Principal diagnosis: Reason for follow-up is abnormal CT question of infection Patient is a 54-year-old female with a past medical history significant for diabetes mellitus hypertension did have a history of diabetic gastroparesis with the jejunostomy tube for feeding patient presenting to the hospital for evaluation of nausea vomiting abdominal discomfort, did have CT abdominal chest did show some wall thickening edema of the stomach status post EGD completed by general surgery this morning with findings of gastritis. On today's evaluation that is 05/19/2024, Patient is afebrile this morning patient denies having any chest pain shortness of breath or cough, the patient is currently on room air, patient still complaining some abdominal discomfort and nausea but no vomiting mention that he has fluid on. No new lab has been repeated today Objective - Vital Signs Vital signs: Vital Signs Temp 97.8 F 05/19/24 13:22 Pulse 91 05/19/24 13:22 Resp 18 05/19/24 13:22 BP 170/91 05/19/24 13:22 Pulse Ox 99 05/19/24 13:22 FiO2 Intake & Output 05/18/24 05/19/24 05/19/24 18:59 06:59 18:59 Weight 39 kg 39.5 kg Other: Voiding Method Toilet # Voids 1 3 # Bowel Movements 1 2 - Exam GENERAL DESCRIPTION: Middle-age female lying in bed in no distress RESPIRATORY SYSTEM: Unlabored breathing , decreased breath sounds at bases HEART: S1 S2 regular rate and rhythm , ABDOMEN: Soft , no tenderness EXTREMITIES: No edema feet - Labs CBC & Chem 7: 05/19/24 03:55 05/19/24 14:21 Labs: Abnormal Lab Results - Last 24 Hours (Table) 05/18/24 05/19/24 05/19/24 Range/Units 20:05 03:55 03:55 RBC 3.50 L (4.10-5.20) X 10*6/uL Hgb 10.6 L (12.0-15.0) g/dL Hct 32.4 L (37.2-46.3) % RDW 14.7 H (11.5-14.5) % Eosinophils # 0.44 H (0.04-0.35) X 10*3/uL BUN 29.7 H (9.0-27.0) mg/dL BUN/Creatinine Ratio 42.43 H (12.00-20.00) Ratio Glucose 214 H (70-110) mg/dL POC Glucose (mg/dL) 154 H (70-110) mg/dL Calcium 7.5 L (8.7-10.3) mg/dL Total Bilirubin <0.2 L (0.3-1.2) mg/dL Total Protein 4.4 L (6.2-8.2) g/dL Albumin 2.2 L (3.8-4.9) g/dL Albumin/Globulin Ratio 1.00 L (1.60-3.17) Ratio 05/19/24 05/19/24 05/19/24 Range/Units 07:30 11:55 13:22 RBC (4.10-5.20) X 10*6/uL Hgb (12.0-15.0) g/dL Hct (37.2-46.3) % RDW (11.5-14.5) % Eosinophils # (0.04-0.35) X 10*3/uL BUN (9.0-27.0) mg/dL BUN/Creatinine Ratio (12.00-20.00) Ratio Glucose (70-110) mg/dL POC Glucose (mg/dL) 246 H 124 H 48 L* (70-110) mg/dL Calcium (8.7-10.3) mg/dL Total Bilirubin (0.3-1.2) mg/dL Total Protein (6.2-8.2) g/dL Albumin (3.8-4.9) g/dL Albumin/Globulin Ratio (1.60-3.17) Ratio 05/19/24 Range/Units 13:42 RBC (4.10-5.20) X 10*6/uL Hgb (12.0-15.0) g/dL Hct (37.2-46.3) % RDW (11.5-14.5) % Eosinophils # (0.04-0.35) X 10*3/uL BUN (9.0-27.0) mg/dL BUN/Creatinine Ratio (12.00-20.00) Ratio Glucose (70-110) mg/dL POC Glucose (mg/dL) 250 H (70-110) mg/dL Calcium (8.7-10.3) mg/dL Total Bilirubin (0.3-1.2) mg/dL Total Protein (6.2-8.2) g/dL Albumin (3.8-4.9) g/dL Albumin/Globulin Ratio (1.60-3.17) Ratio Assessment and Plan (1) Leukocytosis Current Visit: No Status: Acute Code(s): D72.829 - ELEVATED WHITE BLOOD CELL COUNT, UNSPECIFIED SNOMED Code(s): 368927245 (2) Diarrhea Current Visit: No Status: Acute Code(s): R19.7 - DIARRHEA, UNSPECIFIED SNOMED Code(s): 06806573 Plan: 1patient presenting to the hospital with abdominal pain nausea and vomiting which apparently has been similar to her previous episode of diabetic gastroparesis patient has been afebrile white count is mildly elevated did have some thickening of the stomach on the CT abdominal could be related to gastritis gastroparesis clinic suspicious low for infectious etiology, patient to have normal procalcitonin CT chest did not show any pneumonia UA has been negative 2patient white count has normalized and no clinical focus of infection, patient Rocephin has been discontinued, 3the patient remains to be afebrile seem to have issues with recurrent vomiting possible gastroparesis for which the patient being managed by general surgery 4-patient will be treated with Questran for symptomatic relief of her diarrhea monitor clinical course closely Dictation was produced using [employer] dictation software. please excuse any grammatical, word or spelling errors. Time with Patient: Less than 30
[2024-05-19] MEDS: LOPERAMIDE 2 MG CAP PO PRN (16:30)
[2024-05-19 17:36] LABS: Glucose,Whole Blood 112 mg/dL (70-110)
[2024-05-19 20:56] LABS: Glucose,Whole Blood 100 mg/dL (70-110)
[2024-05-20 07:03] LABS: Glucose,Whole Blood 239 mg/dL (70-110)
[2024-05-20 12:10] LABS: Glucose,Whole Blood 140 mg/dL (70-110)
--- NOTE | 2024-05-20 12:26 | P.PN ---
Subjective Progress Note Date: 05/20/24 SURGICAL PROGRESS NOTE CHIEF COMPLAINT: Abdominal pain with nausea and vomiting HISTORY OF PRESENT ILLNESS: Patient reports she feels ready for discharge. She is tolerating diet. She is tolerating her tube feeds. Denies any vomiting. She has her chronic nausea. Afebrile. PHYSICAL EXAM: VITAL SIGNS: Reviewed. GENERAL: Well-developed in no acute distress. ABDOMEN: Soft. Nondistended. Nontender. PEG tube site clean dry and intact NEUROLOGIC: Alert and oriented. Cranial nerves II through XII grossly intact. ASSESSMENT: 1. Abdominal pain with nausea and vomiting. Improved. Likely related to pancreatitis and gastroparesis. Status post EGD revealing gastritis. 2. Acute pancreatitis. Resolved. History of cholecystectomy 3. Gastroparesis 4. Uncontrolled diabetes mellitus PLAN: -Continue tube feeds -Continue consistent carbohydrate soft food diet -Recommend tight glycemic control for the diabetic gastroparesis -Continue Reglan -Patient can be discharge from surgical standpoint when medically cleared Physician Territory Sales Consultant note has been reviewed by physician. Signing provider agrees with the documented findings, assessment, and plan of care. Objective - Vital Signs Vital signs: Vital Signs Temp 98.1 F 05/20/24 07:02 Pulse 93 05/20/24 07:02 Resp 17 05/20/24 07:02 BP 128/80 05/20/24 07:02 Pulse Ox 96 05/20/24 07:02 FiO2 Intake & Output 05/19/24 05/20/24 05/20/24 18:59 06:59 18:59 Intake Total 240 Balance 240 Weight 38.1 kg Intake: Oral 240 Other: Voiding Method Toilet Bedside Commode Diaper # Bowel Movements 2 - Labs CBC & Chem 7: 05/19/24 03:55 05/19/24 14:21 Labs: Abnormal Lab Results - Last 24 Hours (Table) 05/19/24 05/19/24 05/19/24 Range/Units 13:22 13:42 14:21 Glucose 117 H (74-99) mg/dL POC Glucose (mg/dL) 48 L* 250 H (70-110) mg/dL 05/19/24 05/20/24 05/20/24 Range/Units 17:17 07:02 12:09 Glucose (74-99) mg/dL POC Glucose (mg/dL) 112 H 239 H 140 H (70-110) mg/dL
[2024-05-20 12:49] VITALS: BP 133/77; PULSE 89; RESP 16; TEMP 98.6
[2024-05-20] MEDS: HYDROmorphone 1 MG/ML 1 ML SYRINGE IM STA (14:12)
[2024-05-20] MEDS: HYDROmorphone 1 MG/ML 1 ML SYRINGE IVP STA (14:25)
--- NOTE | 2024-05-20 23:58 | PN ---
PROGRESS NOTE SUBJECTIVE: Came over, dehydration, gastroparesis, diabetic ketoacidosis, pneumonia. She is improving. OBJECTIVE: CARDIOVASCULAR: S1, S2. LUNGS: Scattered rhonchi and wheeze. HEMATOLOGY: Negative Homans. PSYCHIATRIC: Fair mood and affect. ASSESSMENT: Dehydration, DKA, acute hypoxemic respiratory distress, pneumonia, gastroparesis. Considering she had a poor day with nausea and vomiting, we are going to do clear liquids and monitor her oral intake, which was noted to be very low, and continue with tube feeds. Replace potassium. Prognosis guarded. MMODL / IJN: [id number] /
--- NOTE | 2024-05-21 08:10 | PN ---
PROGRESS NOTE SUBJECTIVE: A 54-year-old white female. PHYSICAL EXAMINATION: VITAL SIGNS: Blood pressure 128/80, O2 96 on room air. Temperature 98.1, pulse 93, respiratory rate 16 to 18. CARDIOVASCULAR: S1, S2. LUNGS: Scattered wheeze. HEMATOLOGY: Negative Homans. She is keeping her most liquids and solids down, if she eats slow. Her sugars are in the mid 100s, which is great for her. If her nausea and vomiting goes away, we will be able to discharge her home. She has had esophageal dysmobility, getting food through her feeding tube. Blood pressure 170/91, respiratory rate 16 to 18, pulse 91, O2 is in high 90s. She is thin, cachectic, leukocytosis, diarrhea, gastroparesis. CAT scan did show some new reticular densities suspicious for infection profound pneumonia, it was on the CAT scan, and she did have cough and congestion and bronchitis on admission for which Rocephin was given. If she continues to have nausea and vomiting off the Rocephin, we are going to restart it. Otherwise, we will do what Dr. Brunson says. Prognosis is guarded. Possibly discharge home soon depending on patient's clinical improvement with her abdominal pain, nausea, vomiting, surgical clearance. MMODL / IJN: [id number] /
--- NOTE | 2024-05-21 12:37 | P.PN ---
Subjective Progress Note Date: 05/20/24 Principal diagnosis: Reason for follow-up is abnormal CT question of infection Patient is a 54-year-old female with a past medical history significant for diabetes mellitus hypertension did have a history of diabetic gastroparesis with the jejunostomy tube for feeding patient presenting to the hospital for evaluation of nausea vomiting abdominal discomfort, did have CT abdominal chest did show some wall thickening edema of the stomach status post EGD completed by general surgery this morning with findings of gastritis. On today's evaluation that is 05/20/2024,the patient denies any fever or any chills, patient is breathing comfortably on room air, the patient denies chest pain shortness of breath and no significant cough, patient abdominal pain has decreased in intensity no nausea vomiting still having some diarrhea. No new lab has been repeated today white count normal at 9.54 yesterday Objective - Vital Signs Vital signs: Vital Signs Temp 98.6 F 05/20/24 12:48 Pulse 89 05/20/24 12:48 Resp 16 05/20/24 12:48 BP 133/77 05/20/24 12:48 Pulse Ox 99 05/20/24 12:48 FiO2 Intake & Output 05/19/24 05/20/24 05/20/24 18:59 06:59 18:59 Intake Total 480 Balance 480 Weight 38.1 kg Intake: Oral 480 Other: Voiding Method Toilet Bedside Commode Diaper # Bowel Movements 2 - Exam GENERAL DESCRIPTION: Middle-age female lying in bed in no distress RESPIRATORY SYSTEM: Unlabored breathing , decreased breath sounds at bases HEART: S1 S2 regular rate and rhythm , ABDOMEN: Soft , no tenderness EXTREMITIES: No edema feet - Labs CBC & Chem 7: 05/19/24 03:55 05/19/24 14:21 Labs: Abnormal Lab Results - Last 24 Hours (Table) 05/19/24 05/19/24 05/20/24 Range/Units 14:21 17:17 07:02 Glucose 117 H (74-99) mg/dL POC Glucose (mg/dL) 112 H 239 H (70-110) mg/dL 05/20/24 Range/Units 12:09 Glucose (74-99) mg/dL POC Glucose (mg/dL) 140 H (70-110) mg/dL Assessment and Plan (1) Leukocytosis Status: Acute Code(s): D72.829 - ELEVATED WHITE BLOOD CELL COUNT, UNSPECIFIED SNOMED Code(s): 276745893 (2) Diarrhea Status: Acute Code(s): R19.7 - DIARRHEA, UNSPECIFIED SNOMED Code(s): 04084565 Plan: 1patient presenting to the hospital with abdominal pain nausea and vomiting which apparently has been similar to her previous episode of diabetic gastr oparesis patient has been afebrile white count is mildly elevated did have some thickening of the stomach on the CT abdominal could be related to gastritis gastroparesis clinic suspicious low for infectious etiology, patient to have normal procalcitonin CT chest did not show any pneumonia UA has been negative 2patient white count has normalized and no clinical focus of infection, patient Rocephin has been discontinued, 3the patient remains to be afebrile seem to have issues with recurrent vomiting possible gastroparesis for which the patient being managed by general surgery and did have improvement her symptoms 4-patient advised to continue with Questran for symptomatic relief of her diarr hea and avoid antimotility agent Dictation was produced using [employer] dictation software. please excuse any grammatical, word or spelling errors. Time with Patient: Less than 30
== END 2024-05-20 16:58 | disposition home or self-care (01) | DRG 73 ==
LOC: EC 10:28 → 5NMEDONC 11:46 → OBSVTOIN 05-12 10:12 → 5NMEDONC 05-12 21:59
PROVIDERS: ADMIT Family Medicine; ATTEND Family Medicine
PROC: 0DB78ZX Excision of Stomach, Pylorus, Via Natural or Artificial Opening Endoscopic, Diagnostic (ICD-10-PCS; principal; 2024-05-13 07:15)
PROC: 3E0H76Z Introduction of Nutritional Substance into Lower GI, Via Natural or Artificial Opening (ICD-10-PCS; 2024-05-15)
DX: E11.43 Type 2 diabetes mellitus with diabetic autonomic (poly)neuropathy (principal); E43 Unspecified severe protein-calorie malnutrition; J18.9 Pneumonia, unspecified organism; K85.90 Acute pancreatitis without necrosis or infection, unspecified; Z68.1 Body mass index [BMI] 19.9 or less, adult; N17.9 Acute kidney failure, unspecified; K86.1 Other chronic pancreatitis; E11.00 Type 2 diabetes mellitus with hyperosmolarity without nonketotic hyperglycemic-hyperosmolar coma (NKHHC); E11.10 Type 2 diabetes mellitus with ketoacidosis without coma; E11.42 Type 2 diabetes mellitus with diabetic polyneuropathy; Z93.1 Gastrostomy status; Z79.4 Long term (current) use of insulin; Z93.4 Other artificial openings of gastrointestinal tract status; E88.A Wasting disease (syndrome) due to underlying condition; I10 Essential (primary) hypertension; D64.9 Anemia, unspecified; K52.9 Noninfective gastroenteritis and colitis, unspecified; E86.0 Dehydration; K31.84 Gastroparesis; F17.210 Nicotine dependence, cigarettes, uncomplicated; E87.5 Hyperkalemia; G89.29 Other chronic pain; M17.11 Unilateral primary osteoarthritis, right knee; R09.02 Hypoxemia; Z79.891 Long term (current) use of opiate analgesic; R06.03 Acute respiratory distress; K29.50 Unspecified chronic gastritis without bleeding; W06.XXXA Fall from bed, initial encounter; Y92.230 Patient room in hospital as the place of occurrence of the external cause; Z86.14 Personal history of Methicillin resistant Staphylococcus aureus infection; Z79.899 Other long term (current) drug therapy
CPT/HCPCS: 36415; 43239; 71250; 74018; 74150; 80048; 80053; 81001; 82009; 82150; 82947; 83036; 83690; 83735; 84443; 85025; 85379; 87324; 88305; 88342; 93005; 94640; 96361; 96374; 96375; 96376; 99285

== ENCOUNTER 2024-05-29 19:27 | Inpatient (IN) | payer MEDICARE ==
--- NOTE | 2024-05-29 19:38 | ED ---
Nausea/Vomiting/Diarrhea HPI - General Chief complaint: Nausea/Vomiting/Diarrhea Stated complaint: abd pain Time Seen by Provider: 05/29/24 19:38 Source: patient, RN notes reviewed Mode of arrival: EMS - History of Present Illness Initial comments: This is a 54-year-old female with a history of uncontrolled diabetes and malnutrition who is noncompliant with medications presenting to the emergency department via EMS for complaint of nausea, vomiting, diarrhea, diffuse abdominal pain that has been worsening over the past 2 days. States that she has been having a difficult time keeping down foods and liquids due to persistent nausea. States that she has not been taking her medications over the past few days. She denies hematemesis, hematochezia, melena, coffee-ground emesis, fevers, chills, urinary complaints. States that she had recent imaging of her abdomen with no acute findings. - Related Data Home Medications Medication Instructions Recorded Confirmed ALPRAZolam [Xanax] 0.25 mg PO BID 05/12/23 05/10/24 Atorvastatin [Lipitor] 20 mg PO DAILY 05/12/23 05/10/24 Insulin Lispro [humaLOG Kwikpen] See Protocol SQ ACHS 05/12/23 05/10/24 Mirtazapine [Remeron] 30 mg PO HS 05/12/23 05/10/24 Folic Acid 1 mg PO DAILY 06/15/23 05/10/24 Ferrous Sulfate [Iron (65 MG 325 mg PO DAILY 12/09/23 05/10/24 Elemental)] Insulin Glargine [Lantus Vial] 10 unit SQ DAILY 12/09/23 05/10/24 Ondansetron [Zofran] 4 mg PO BID 02/21/24 05/10/24 methocarbamoL [Robaxin] 250 mg PO QID 02/21/24 05/10/24 Artificial Tears-Hypromellose 1 drop BOTH EYES QID PRN 03/19/24 05/10/24 [Artificial Tear Drops] Scopolamine [Scopolamine 1 MG/72 1 patch TRANSDERM Q72H 03/19/24 05/10/24 HR patch] HYDROcodone/APAP 10-325MG [[place] 1 tab PO TID 05/10/24 05/10/24 10-325] Omeprazole 40 mg PO DAILY 05/10/24 05/10/24 Previous Rx's Medication Instructions Recorded Metoclopramide [Reglan] 10 mg PO ACHS 30 Days #120 tab 05/15/23 amLODIPine [Norvasc] 5 mg PO DAILY 90 Days #90 tab 12/19/23 Famotidine [Pepcid] 20 mg PO BID 30 Days #60 tab 01/18/24 Loperamide [Imodium] 2 mg PO QID PRN cap 03/10/24 HYDROcodone/APAP 10-325MG [[place] 1 each PO Q4HR PRN 3 Days #18 tab 05/18/24 10-325] Cholestyramine (with Sugar) 4 gm PO BID@1000,1800 30 Days #30 05/20/24 [Questran Packet] packet Ipratropium-Albuterol Nebulize 3 ml INHALATION RT-TID PRN each 05/20/24 [Duoneb 0.5 mg-3 mg/3 ml Soln] Metoprolol Tartrate [Lopressor] 25 mg PO BID 30 Days #60 tab 05/20/24 lisinopriL [Zestril] 5 mg PO DAILY 30 Days #30 tab 05/20/24 Allergies Allergy/AdvReac Type Severity Reaction Status Date / Time fentanyl AdvReac "wobbly" Verified 05/29/24 19:34 Review of Systems ROS Statement: Those systems with pertinent positive or pertinent negative responses have been documented in the HPI. ROS Other: All systems not noted in ROS Statement are negative. Past Medical History Past Medical History: Diabetes Mellitus, Hypertension, Musculoskeletal Disorder Additional Past Medical History / Comment(s): FREQ NAUSEA, PAINFUL RT SHOULDER "FROZEN SHOULDER", NEUROPATHY PORFIRIO LEGS and hands, Blood pressures can run high History of Any Multi-Drug Resistant Organisms: ESBL, MRSA, VRE Date of last positivie culture/infection: 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;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 MDRO Source:: Urine VRE and ESBL, MRSA-ABD Past Surgical History: Cholecystectomy, Orthopedic Surgery, Tubal Ligation Additional Past Surgical History / Comment(s): rt shoulder, J tube placement Past Anesthesia/Blood Transfusion Reactions: No Reported Reaction Additional Past Anesthesia/Blood Transfusion Reaction / Comment(s): UNK FAMILY HX Past Psychological History: Anxiety Smoking Status: Current every day smoker Past Alcohol Use History: None Reported Past Drug Use History: None Reported - Past Family History Father History Unknown: Yes Additional Family Medical History / Comment(s): unknown-adopted Mother History Unknown: Yes Additional Family Medical History / Comment(s): unknown- adopted General Exam General appearance: alert, in no apparent distress, cachectic Eye exam: Present: normal appearance, PERRL, EOMI. Absent: scleral icterus, conjunctival injection, periorbital swelling ENT exam: Present: mucous membranes dry Expanded Teeth exam: Present: dental caries, fractured tooth # Neck exam: Present: normal inspection. Absent: tenderness, meningismus, lymphadenopathy Respiratory exam: Present: normal lung sounds bilaterally. Absent: respiratory distress, wheezes, rales, rhonchi, stridor Cardiovascular Exam: Present: normal rhythm, tachycardia, normal heart sounds. Absent: systolic murmur, diastolic murmur, rubs, gallop, clicks GI/Abdominal exam: Present: soft, distended (diffuse), normal bowel sounds, other (PEG tube in place, no erythema or purulence surrounding site). Absent: tenderness, guarding, rebound, rigid Extremities exam: Present: normal inspection, full ROM, normal capillary refill. Absent: tenderness, pedal edema, joint swelling, calf tenderness Back exam: Present: normal inspection Neurological exam: Present: alert, oriented X3, CN II-XII intact Skin exam: Present: warm, dry, intact, normal color. Absent: rash Course Vital Signs 05/29/24 05/29/24 19:29 22:00 Temperature 98.7 F Pulse Rate 116 H 92 Respiratory 20 18 Rate Blood Pressure 164/81 152/74 O2 Sat by Pulse 99 98 Oximetry Medical Decision Making - Medical Decision Making Was pt. sent in by a medical professional or institution (, PA, FOOD CHECKER, urgent care, hospital, or halfway...) When possible be specific @ -No Did you speak to anyone other than the patient for history (EMS, parent, family, police, friend...)? What history was obtained from this source @ -No Did you review nursing and triage notes (agree or disagree)? Why? @ -I reviewed and agree with nursing and triage notes Were old charts reviewed (outside hosp., previous admission, EMS record, old EKG, old radiological studies, urgent care reports/EKG's, halfway records)? Report findings @ -No old charts were reviewed Differential Diagnosis (chest pain, altered mental status, abdominal pain women, abdominal pain men, vaginal bleeding, weakness, fever, dyspnea, syncope, headache, dizziness, GI bleed, back pain, seizure, CVA, palpatations, mental health, musculoskeletal)? @ -Differential Abdominal Pain Women: Appendicitis, Cholecystitis, diverticulosis, ischemic bowel, pancreatitis, hepatitis, UTI, gastroenteritis, AAA, incarcerated hernia, bowel obstruction, constipation, inflammatory bowel, hepatitis, peptic ulcer disease, splenic infarction, perforated viscus, vulvitis, ovarian torsion, PID, kidney stone, placenta abruption, this is not meant to be an all-inclusive list EKG interpreted by me (3pts min.). @ -none X-rays interpreted by me (1pt min.). @ -None done CT interpreted by me (1pt min.). @ -None done U/S interpreted by me (1pt. min.). @ -None done What testing was considered but not performed or refused? (CT, X-rays, U/S, labs)? Why? @ -None What meds were considered but not given or refused? Why? @ -None Did you discuss the management of the patient with other professionals (sha cardoso i.e. , PA, FOOD CHECKER, lab, RT, psych nurse, social welfare clerk, kitchen and bath designer, teacher, strategic intelligence officer, child welfare caseworker)? Give summary @ -spoke with patients PCP, Dr. Pike, who has accepted admission for IVF recussitation and continuted pain management. Was smoking cessation discussed for >3mins.? @ -No Was critical care preformed (if so, how long)? @ -No Were there social determinants of health that impacted care today? How? (Homelessness, low income, unemployed, alcoholism, drug addiction, transport ation, low edu. Level, literacy, decrease access to med. care, intermediate, rehab)? @ -No Was there de-escalation of care discussed even if they declined (Discuss DNR or withdrawal of care, Hospice)? DNR status @ -No What co-morbidities impacted this encounter? (DM, HTN, Smoking, COPD, CAD, Cancer, CVA, ARF, Chemo, Hep., AIDS, mental health diagnosis, sleep apnea, morbid obesity)? @ -DM Was patient admitted / discharged? Hospital course, mention meds given and route, prescriptions, significant lab abnormalities, going to OR and other pertinent info. @ -Admitted. 54 female presenting via EMS for complaints of nausea, vomiting, diarrhea and abdominal pain. Patient is very frequent in ER for similar complaints. She noted to be hypertensive on arrival with blood pressure 164/81. Noted to have diffuse abdominal pain with no signs of rebound tenderness or rigidity. She is provided with pain medication and Zofran pending laboratory results. Patient's labs remarkable for PHANI with a BUN of 46, GFR 68. Electrolytes within normal limits. No signs of leukocytosis. Patient is afebrile. She will be mated to internal medicine and continued on IV fluids. Discussed with Dr. Giraldo Undiagnosed new problem with uncertain prognosis? @ -No Drug Therapy requiring intensive monitoring for toxicity (Heparin, Nitro, Insulin, Cardizem)? @ -No Were any procedures done? @ -No Diagnosis/symptom? @ -PHANI, abdominal pain, nausea and vomiting Acute, or Chronic, or Acute on Chronic? @ -acute, acute on chronic Uncomplicated (without systemic symptoms) or Complicated (systemic symptoms)? @ -complicated Side effects of treatment? @ -No Exacerbation, Progression, or Severe Exacerbation? @ -No Poses a threat to life or bodily function? How? (Chest pain, [place], [place], pneumonia, PE, COPD, DKA, ARF, appy, cholecystitis, CVA, Diverticulitis, Homicidal, Suicidal, threat to staff... and all critical care pts) @ -No - Lab Data Result diagrams: 05/29/24 20:00 05/29/24 20:00 Lab Results 05/29/24 05/29/24 Range/Units 20:00 20:00 WBC 8.2 (3.8-10.6) k/uL RBC 3.89 (3.80-5.40) m/uL Hgb 11.3 L (11.4-16.0) gm/dL Hct 35.4 (34.0-46.0) % MCV 91.0 (80.0-100.0) fL MCH 29.1 (25.0-35.0) pg MCHC 32.0 (31.0-37.0) g/dL RDW 15.5 (11.5-15.5) % Plt Count 464 H (150-450) k/uL MPV 7.0 Neutrophils % 69 % Lymphocytes % 22 % Monocytes % 4 % Eosinophils % 3 % Basophils % 1 % Neutrophils # 5.7 (1.3-7.7) k/uL Lymphocytes # 1.8 (1.0-4.8) k/uL Monocytes # 0.3 (0-1.0) k/uL Eosinophils # 0.2 (0-0.7) k/uL Basophils # 0.1 (0-0.2) k/uL Sodium 138 (137-145) mmol/L Potassium 4.6 (3.5-5.1) mmol/L Chloride 109 H (98-107) mmol/L Carbon Dioxide 24 (22-30) mmol/L Anion Gap 5 mmol/L BUN 46 H (7-17) mg/dL Creatinine 0.97 (0.52-1.04) mg/dL Est GFR (CKD-EPI)AfAm 78 (>60 ml/min/1.73 sqM) Est GFR (CKD-EPI)NonAf 68 (>60 ml/min/1.73 sqM) Glucose 156 H (74-99) mg/dL Calcium 9.4 (8.4-10.2) mg/dL Phosphorus 4.3 (2.5-4.5) mg/dL Magnesium 2.2 (1.6-2.3) mg/dL Total Bilirubin 0.3 (0.2-1.3) mg/dL AST 44 H (14-36) U/L ALT 58 H (4-34) U/L Alkaline Phosphatase 116 (38-126) U/L Total Protein 6.2 L (6.3-8.2) g/dL Albumin 3.1 L (3.5-5.0) g/dL Amylase 59 (30-110) U/L Lipase 94 (23-300) U/L Disposition Clinical Impression: Chronic abdominal pain, PHANI (acute kidney injury), Nausea and vomiting Disposition: ADMITTED IP TO THIS [facility] Condition: Stable Decision to Admit Reason: Admit from EC Decision Date: 05/29/24 Decision Time: 22:13
[2024-05-29 20:06] LABS: Basophils # (A) 0.1 k/uL (0-0.2); Basophils % (A) 1 %; Eosinophils # (A) 0.2 k/uL (0-0.7); Eosinophils % (A) 3 %; HCT 35.4 % (34.0-46.0); HGB 11.3 gm/dL (11.4-16.0); Lymphocytes # (A) 1.8 k/uL (1.0-4.8); Lymphocytes % (A) 22 %; MCH 29.1 pg (25.0-35.0); Monocytes # (A) 0.3 k/uL (0-1.0); Monocytes % (A) 4 %; Neutrophils # (A) 5.7 k/uL (1.3-7.7); Neutrophils % (A) 69 %; Platelet Count 464 k/uL (150-450); RBC 3.89 m/uL (3.80-5.40); RDW 15.5 % (11.5-15.5); WBC 8.2 k/uL (3.8-10.6)
[2024-05-29 20:30] LABS: ALT 58 U/L (4-34); AST 44 U/L (14-36); African American GFR (CKD) 78 (>60 ml/min/1.73 sqM); Albumin 3.1 g/dL (3.5-5.0); Alkaline Phosphatase 116 U/L (38-126); Amylase 59 U/L (30-110); Anion Gap 5 mmol/L; Blood Urea Nitrogen 46 mg/dL (7-17); Calcium 9.4 mg/dL (8.4-10.2); Carbon Dioxide 24 mmol/L (22-30); Chloride 109 mmol/L (98-107); Glucose 156 mg/dL (74-99); Lipase 94 U/L (23-300); Magnesium 2.2 mg/dL (1.6-2.3); Non-African American GFR(CKD) 68 (>60 ml/min/1.73 sqM); Phosphorus 4.3 mg/dL (2.5-4.5); Potassium 4.6 mmol/L (3.5-5.1); Sodium 138 mmol/L (137-145); Total Bilirubin 0.3 mg/dL (0.2-1.3); Total Protein 6.2 g/dL (6.3-8.2)
[2024-05-29] MEDS: PANTOPRAZOLE 40 MG/10 ML VIAL IVP STA (20:39)
[2024-05-29] MEDS: METOCLOPRAMIDE 5 MG/ML 2 ML VIAL IVP STA (20:41)
[2024-05-29] MEDS: HYDROmorphone 0.5 MG/0.5 ML SYRINGE IVP STA (20:41)
[2024-05-29] MEDS: SODIUM CHLORIDE 0.9% 1,000 ML IV STA (20:42)
[2024-05-29] MEDS ORDERED: ACETAMINOPHEN TAB 325 MG TAB PO PRN (22:13)
[2024-05-29] MEDS ORDERED: NALOXONE 0.4 MG/ML 1 ML VIAL IV PRN (22:13)
[2024-05-29] MEDS: SODIUM CHLORIDE 0.9% 1,000 ML IV SCH (22:27)
[2024-05-29] MEDS: HYDROmorphone 0.5 MG/0.5 ML SYRINGE IVP PRN (22:35)
[2024-05-29] MEDS: ONDANSETRON 4 MG/2 ML VIAL IVP PRN (22:35)
[2024-05-30] MEDS: ONDANSETRON 4 MG/2 ML VIAL IVP PRN (03:26)
[2024-05-30] MEDS: HYDROmorphone 1 MG/ML 1 ML SYRINGE IVP PRN (05:06)
[2024-05-30 05:55] LABS: Glucose,Whole Blood 83 mg/dL (70-110)
[2024-05-30] MEDS: PANTOPRAZOLE 40 MG/10 ML VIAL IV SCH (07:51)
[2024-05-30] MEDS: hydrALAZINE HCL 20 MG/ML 1 ML VIAL IVP PRN (07:58)
[2024-05-30 08:28] LABS: Appearance,Urine Clear (Clear); Bilirubin,Urine Negative (Negative); Blood,Urine Trace (Negative); Color,Urine Colorless; Glucose,Urine (UA) 2+ (Negative); Ketones,Urine Negative (Negative); Leukocyte Esterase,Urine Negative (Negative); Mucus,Urine Rare /hpf; Nitrite,Urine Negative (Negative); Protein,Urine 2+ (Negative); RBC,Urine 2 /hpf (0-5); Specific Gravity,Urine 1.014 (1.001-1.035); Squamous Epithelial Cell,Urine 3 /hpf (0-4); Urobilinogen,Urine <2.0 mg/dL (<2.0); WBC,Urine 6 /hpf (0-5)
[2024-05-30 09:00] LABS: Basophils # (A) 0.1 k/uL (0-0.2); Basophils % (A) 1 %; Eosinophils # (A) 0.3 k/uL (0-0.7); Eosinophils % (A) 3 %; HCT 37.1 % (34.0-46.0); HGB 11.4 gm/dL (11.4-16.0); Hypochromasia Moderate; Lymphocytes % (A) 24 %; MCH 29.3 pg (25.0-35.0); MCHC 30.8 g/dL (31.0-37.0); MCV 95.4 fL (80.0-100.0); Mean Platelet Volume 6.8; Monocytes # (A) 0.4 k/uL (0-1.0); Monocytes % (A) 5 %; Neutrophils # (A) 5.4 k/uL (1.3-7.7); Neutrophils % (A) 65 %; Platelet Count 378 k/uL (150-450); RBC 3.89 m/uL (3.80-5.40); RDW 15.5 % (11.5-15.5); WBC 8.3 k/uL (3.8-10.6)
[2024-05-30 09:10] LABS: ALT 51 U/L (4-34); AST 38 U/L (14-36); African American GFR (CKD) >90 (>60 ml/min/1.73 sqM); Albumin 2.8 g/dL (3.5-5.0); Alkaline Phosphatase 117 U/L (38-126); Anion Gap 4 mmol/L; Blood Urea Nitrogen 32 mg/dL (7-17); Calcium 8.8 mg/dL (8.4-10.2); Carbon Dioxide 23 mmol/L (22-30); Chloride 114 mmol/L (98-107); Glucose 100 mg/dL (74-99); Non-African American GFR(CKD) 80 (>60 ml/min/1.73 sqM); Potassium 4.1 mmol/L (3.5-5.1); Sodium 141 mmol/L (137-145); Total Bilirubin 0.3 mg/dL (0.2-1.3); Total Protein 5.7 g/dL (6.3-8.2)
[2024-05-30 11:46] LABS: Glucose,Whole Blood 114 mg/dL (70-110)
[2024-05-30] MEDS ORDERED: IPRATROPIUM-ALBUTEROL 3 ML NEB INHALATION PRN (14:13)
[2024-05-30] MEDS: METOCLOPRAMIDE 5 MG/ML 2 ML VIAL IVP SCH (14:29)
[2024-05-30] MEDS: SCOPOLAMINE 1 MG/72 HR PATCH TRANSDERM SCH (14:29)
--- NOTE | 2024-05-30 15:48 | P.PN ---
Progress Note - Text Progress Note Date: 05/30/24 Patient currently not in room. Patient was sent down for CT scan. Consultation in progress.
[2024-05-30 17:13] LABS: Glucose,Whole Blood 111 mg/dL (70-110)
--- NOTE | 2024-05-30 17:24 | CT ---
EXAMINATION TYPE: CT abdomen pelvis wo con DATE OF EXAM: 05/30/2024 5:06 PM COMPARISON: Previous CT study 05/11/2024. CLINICAL INDICATION: Female, 54 years old with history of ab pain; Abdominal pain, N/V/D. Throwing up green bile. TECHNIQUE: Axial CT abdomen pelvis wo con;Sagittal and coronal reformats were created on a separate workstation. Oral contrast used: without Oral Contrast (none if empty) CT DLP: 207.8 mGycm, Automated exposure control for dose reduction was used. FINDINGS: LOWER CHEST: Unremarkable ABDOMEN LIVER: Unremarkable GALLBLADDER AND BILE DUCTS: The gallbladder is surgically absent. PANCREAS: Unremarkable. SPLEEN: Unremarkable. ADRENAL GLANDS: Unremarkable. KIDNEYS AND URETERS: No evidence of hydronephrosis or renal calculus. The ureters are unremarkable. PELVIS BLADDER: No evidence for wall thickening or mass given limitations of exam. REPRODUCTIVE: Unremarkable. ABDOMEN & PELVIS STOMACH AND BOWEL: Stomach and duodenum are unremarkable No evidence of bowel obstruction. Percutaneo us jejunostomy tube visualized. PERITONEUM/RETROPERITONEUM: No evidence of pneumoperitoneum or free fluid. VASCULATURE: No evidence of aortic aneurysm. MUSCULOSKELETAL: No acute osseous abnormalities. Stable chronic compression deformities of L4 and T12 . Mild T12 retropulsion again noted. LYMPH NODES: No gross evidence for lymphadenopathy. SOFT TISSUE/ABDOMINAL WALL: Unremarkable IMPRESSION: No acute abnormality in the abdomen/pelvis or CT findings to explain reported symptoms. [facility], , 05/30/2024 5:22 PM
[2024-05-30 20:44] LABS: Glucose,Whole Blood 96 mg/dL (70-110)
[2024-05-30] MEDS: ALPRAZolam 0.25 MG TAB PO SCH (22:31)
[2024-05-30] MEDS: INSULIN ASPART (NovoLOG) 100 UNIT/ML VIAL SQ SCH (22:32)
[2024-05-30] MEDS: FAMOTIDINE 20 MG TAB PO SCH (22:32)
[2024-05-30] MEDS: METOPROLOL TARTRATE 25 MG TAB PO SCH (22:32)
--- NOTE | 2024-05-31 04:14 | HP ---
HISTORY AND PHYSICAL This is a 54-year-old female with uncontrolled diabetes mellitus, malnutrition with PEG tube for severe gastroparesis given nausea, vomiting, abdominal pain. She can keep liquids down. She has nausea, vomiting. Denies hematemesis, hematochezia, melena or coffee-grounds emesis, fever, chills, urinary complaints. MEDICATIONS: 1. Xanax 0.25 b.i.d. 2. Lipitor 20 daily. 3. Remeron 30 daily. 4. Folic acid 1 mg daily. 5. Iron sulfate 325 daily. 6. Lantus 10 units daily. 7. Robaxin 250 q.i.d. 8. Scopolamine patch. 9. [place] 10/. REVIEW OF SYSTEMS: 14-point review of systems, otherwise negative. PAST MEDICAL HISTORY: Gastroparesis, severe, diabetes mellitus, hypertension, COPD, musculoskeletal disorder, malnutrition. SURGERY: Cholecystectomy, orthopedic surgery, tubal ligations. PHYSICAL EXAMINATION: VITAL SIGNS: Reviewed. Blood pressure is 150s to 160s over 70s to 80s, pulse 90 to 115, O2 98% to 99%. PSYCH: She is alert and oriented x3. CARDIOVASCULAR: S1, S2. LUNGS: Transmitted upper sounds. Rales at the bases. ABDOMEN: PEG tube placement. Increased bowel sounds x4. NEUROLOGIC: Alert and oriented x3. INTEGUMENT: Skin, warm, dry, and intact. ASSESSMENT: Acute on chronic anemia, gastroparesis, chronic abdominal pain, acute kidney injury, nausea, vomiting, insulin-dependent diabetes mellitus type 1, progressive gastroparesis. PLAN: Ambulate as tolerated. Continue current treatment. Antinausea medicines. Rehydrate. CT abdomen and pelvis. Continue current treatments. PROGNOSIS: Guarded. MMODL / IJN: [id number] /
[2024-05-31 06:02] LABS: Glucose,Whole Blood 83 mg/dL (70-110)
[2024-05-31] MEDS: INSULIN DETEMIR (LEVEMIR) 100 UNIT/ML SYR SQ SCH (07:58)
[2024-05-31] MEDS: FERROUS SULFATE 325 MG TAB PO SCH (08:19)
[2024-05-31] MEDS: amLODIPine 5 MG TAB PO SCH (08:19)
[2024-05-31] MEDS: FOLIC ACID 1 MG TAB PO SCH (08:19)
[2024-05-31] MEDS: HYDROcodone/APAP 10-325MG 1 EACH TAB PO PRN (09:32)
[2024-05-31] MEDS: METOPROLOL TARTRATE 25 MG TAB PO STA (10:37)
[2024-05-31] MEDS: lisinopriL 5 MG TAB PO SCH (10:37)
[2024-05-31 12:02] LABS: Glucose,Whole Blood 96 mg/dL (70-110)
--- NOTE | 2024-05-31 13:13 | PN ---
PROGRESS NOTE White female who has had progressive nausea, vomiting, diarrhea . We will get Dr. Brunson in followup for possible infection. for C diff. Continue with nausea and vomiting medicines. CT abdomen and pelvis is negative. Sugars are Accu-Chek protocol. We need to see if GI is on-call this weekend or not. The infectious disease she is not vomiting as much as yesterday, she feels little bit better. Prognosis guarded. Severe gastroparesis, lactic acidosis, uncontrolled diabetes mellitus, COPD, progressive nausea and vomiting. Continue current treatment. Surgical consult for progressive nausea, vomiting, possibly restart tube feeds today. Monitor for infections. Please see further orders. MMODL / IJN: [id number] /
--- NOTE | 2024-05-31 13:57 | P.GSCN ---
History of Present Illness Consult date: 05/31/24 History of present illness: CHIEF COMPLAINT: Intractable nausea and vomiting abdominal pain HISTORY OF PRESENT ILLNESS: The patient is a 54-year-old female with frequent hospitalizations due to intractable nausea and vomiting as well as diabetic gastroparesis and recent gastrojejunostomy. She has feedings via tube feeds. She was recently in the hospital less than 2 weeks ago for similar abdominal pain and having antibiotics. I reviewed patient's home medications, she confirms taking Robaxin including Remeron about the same time the overlaps with the onset of her abdominal pain. Patient reports generalized cramping abdominal pain with nausea and vomiting. Currently tube feeds on hold. Patient does report thirst and wants something to drink. PAST MEDICAL HISTORY: See list and reviewed PAST SURGICAL HISTORY: See list and reviewed MEDICATIONS: See list and reviewed ALLERGIES: See list and reviewed SOCIAL HISTORY: See list and reviewed. Has tobacco abuse disorder. FAMILY HISTORY: See list and reviewed REVIEW OF ORGAN SYSTEMS: CONSTITUTIONAL: No fevers or chills. Underweight, BMI 15.1 EYES: Denies any trouble with vision. No glasses. HEENT: No difficulties with hearing. No nosebleeds. No difficulty swallowing. RESPIRATORY: Has chronic obstructive pulm disease. CARDIOVASCULAR: Has hypertensive heart disease. GASTROINTESTINAL: Diabetic gastroparesis, recent gastrojejunostomy. Has gastrostomy tube. Has gastroesophageal reflux disease. GENITOURINARY: Denies any blood in urine or increased urinary frequency. NEUROLOGICAL: Severe diabetic neuropathy. MUSCULOSKELETAL: Has back pain, stiffness or joint arthritis. SKIN: No current skin cancer. No rash. PSYCHIATRIC: Generalized anxiety disorder. ENDOCRINE: Has insulin-dependent diabetes. HEME/LYMPHATIC: Denies any lumps and bumps around the neck. No recent deep venous thrombosis. Has iron deficiency anemia. ALLERGY/IMMUNOLOGY: No immunoglobulin therapy. No immune deficiencies. BREAST: Denies current breast lumps, pain or nipple discharge. PHYSICAL EXAM: VITALS: Reviewed CONSTITUTIONAL: Well developed and in no acute distress. EYES: Conjuctivae without sclera icterus. Extraocular movements grossly intact. HEAD, EARS, NOSE, THROAT: Moist buccal mucosa. Head is atraumatic, normocephalic. Hears conversational speech. No nasal drainage. NECK: Supple. No JV distention. No thyroidomegaly. RESPIRATORY: Non-labored respirations and equal bilateral excursions. No gross wheezes. CARDIOVASCULAR: Palpable 2+ radial pulses. ABDOMEN: Scaphoid. Gastrostomy tube intact. LYMPH: No neck lymphadenopathy. MUSCULOSKELETAL: No clubbing cyanosis or edema SKIN: Warm and well perfused with good skin turgor. NEUROLOGIC: Cranial nerves II through XII grossly intact. No focal or lateralizing signs. PSYCH: Appropriate affect. Alert and oriented to person, place and time. Displays appropriate insight. CLINCAL LABS: Reviewed. WBC normal. Blood sugar glucose 100 to 156, hyperglycemia, yesterday. AST ALT elevated 38 and 51 respectively. Urine positive glucose and ketones. Blood sugars now normal in the 80s. IMAGING: CT of the abdomen pelvis is limited with lack of oral contrast. No free air or bowel obstruction identified. Presence of gastrostomy/jejunostomy feeding tube noted. RADIOLOGY: CT of the abdomen pelvis report demonstrates no acute findings. RECORDS: previous old records reviewed. Recent hospitalization less than 2 weeks ago for similar event intractable nausea and vomiting. ASSESSMENT: 1. Abdominal pain with intractable nausea and vomiting 2. Diabetic gastroparesis with gastropathy 3. Diabetic neuropathy 4. Chronic back pain 5. Hypertensive heart disease 6. Underweight, BMI 15.1 PLAN: 1. Tight glycemic control advised 2. Use of feeding tubes for nutrition 3. Recommend tobacco abstinence feels may propagate gastritis. 4. May start liquids as patient is requesting. 5. Recommend coming off Remeron and Robaxin were adverse side effects including tractable nausea and vomiting and abdominal pain. Patient was agreeable with drug holiday for observation regarding her abdominal pain. ADVANCE DIRECTIVE: CODE STATUS in chart Thank you for this kind consultation. 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 MDRO Source:: Urine VRE and ESBL, MRSA-ABD Past Surgical History: Cholecystectomy, Orthopedic Surgery, Tubal Ligation Additional Past Surgical History / Comment(s): rt shoulder, J tube placement Past Anesthesia/Blood Transfusion Reactions: No Reported Reaction Additional Past Anesthesia/Blood Transfusion Reaction / Comm: UNK FAMILY HX Past Psychological History: Anxiety Smoking Status: Current every day smoker Past Alcohol Use History: None Reported Additional Past Alcohol Use History / Comment(s): STARTED SMOKING 1987, smokes about 6 cigs/day Past Drug Use History: None Reported Additional Drug Use History / Comment(s): Patient denies using marijuana. - Past Family History Father History Unknown: Yes Additional Family Medical History / Comment(s): unknown-adopted Mother History Unknown: Yes Additional Family Medical History / Comment(s): unknown- adopted Medications and Allergies Home Medications Medication Instructions Recorded Confirmed Type ALPRAZolam [Xanax] 0.25 mg PO BID 05/12/23 05/30/24 History Atorvastatin [Lipitor] 20 mg PO DAILY 05/12/23 05/30/24 History Insulin Lispro [humaLOG Kwikpen] See Protocol SQ ACHS 05/12/23 05/30/24 History Mirtazapine [Remeron] 30 mg PO HS 05/12/23 05/30/24 History Metoclopramide [Reglan] 10 mg PO ACHS 30 Days #120 tab 05/15/23 05/30/24 Rx Folic Acid 1 mg PO DAILY 06/15/23 05/30/24 History Ferrous Sulfate [Iron (65 MG 325 mg PO DAILY 12/09/23 05/30/24 History Elemental)] Insulin Glargine [Lantus Vial] 10 unit SQ DAILY 12/09/23 05/30/24 History amLODIPine [Norvasc] 5 mg PO DAILY 90 Days #90 tab 12/19/23 05/30/24 Rx Famotidine [Pepcid] 20 mg PO BID 30 Days #60 tab 01/18/24 05/30/24 Rx Ondansetron [Zofran] 4 mg PO BID 02/21/24 05/30/24 History methocarbamoL [Robaxin] 250 mg PO QID 02/21/24 05/30/24 History Loperamide [Imodium] 2 mg PO QID PRN cap 03/10/24 05/30/24 Rx Artificial Tears-Hypromellose 1 drop BOTH EYES QID PRN 03/19/24 05/30/24 History [Artificial Tear Drops] Scopolamine [Scopolamine 1 MG/72 1 patch TRANSDERM Q72H 03/19/24 05/30/24 History HR patch] HYDROcodone/APAP 10-325MG [[place] 1 tab PO TID 05/10/24 05/30/24 History 10-325] Omeprazole 40 mg PO DAILY 05/10/24 05/30/24 History Cholestyramine (with Sugar) 4 gm PO BID@1000,1800 30 Days #30 05/20/24 05/30/24 Rx [Questran Packet] packet Ipratropium-Albuterol Nebulize 3 ml INHALATION RT-TID PRN each 05/20/24 05/30/24 Rx [Duoneb 0.5 mg-3 mg/3 ml Soln] Metoprolol Tartrate [Lopressor] 25 mg PO BID 30 Days #60 tab 05/20/24 05/30/24 Rx lisinopriL [Zestril] 5 mg PO DAILY 30 Days #30 tab 05/20/24 05/30/24 Rx Cefdinir 300 mg PO Q12HR 05/30/24 05/30/24 History Allergies Allergy/AdvReac Type Severity Reaction Status Date / Time fentanyl AdvReac "wobbly" Verified 05/29/24 19:34 Surgical - Exam Vital Signs Temp Pulse Resp BP Pulse Ox 98.7 F 116 H 20 164/81 99 05/29/24 19:29 05/29/24 19:29 05/29/24 19:29 05/29/24 19:29 05/29/24 19:29 Results - Labs 05/30/24 08:28 05/30/24 08:28 Abnormal Lab Results - Last 24 Hours (Table) 05/29/24 05/29/24 05/30/24 Range/Units 20:00 20:00 08:11 Hgb 11.3 L (11.4-16.0) gm/dL MCHC (31.0-37.0) g/dL Plt Count 464 H (150-450) k/uL Chloride 109 H (98-107) mmol/L BUN 46 H (7-17) mg/dL Glucose 156 H (74-99) mg/dL POC Glucose (mg/dL) (70-110) mg/dL AST 44 H (14-36) U/L ALT 58 H (4-34) U/L Total Protein 6.2 L (6.3-8.2) g/dL Albumin 3.1 L (3.5-5.0) g/dL Urine Protein 2+ H (Negative) Urine Glucose (UA) 2+ H (Negative) Urine Blood Trace H (Negative) Urine WBC 6 H (0-5) /hpf Urine Mucus Rare H (None) /hpf 05/30/24 05/30/24 05/30/24 Range/Units 08:28 08:28 11:44 Hgb (11.4-16.0) gm/dL MCHC 30.8 L (31.0-37.0) g/dL Plt Count (150-450) k/uL Chloride 114 H (98-107) mmol/L BUN 32 H (7-17) mg/dL Glucose 100 H (74-99) mg/dL POC Glucose (mg/dL) 114 H (70-110) mg/dL AST 38 H (14-36) U/L ALT 51 H (4-34) U/L Total Protein 5.7 L (6.3-8.2) g/dL Albumin 2.8 L (3.5-5.0) g/dL Urine Protein (Negative) Urine Glucose (UA) (Negative) Urine Blood (Negative) Urine WBC (0-5) /hpf Urine Mucus (None) /hpf Diabetes panel 05/29/24 05/30/24 Range/Units 20:00 08:28 Sodium 138 141 (137-145) mmol/L Potassium 4.6 4.1 (3.5-5.1) mmol/L Chloride 109 H 114 H (98-107) mmol/L Carbon Dioxide 24 23 (22-30) mmol/L BUN 46 H 32 H (7-17) mg/dL Creatinine 0.97 0.84 (0.52-1.04) mg/dL Glucose 156 H 100 H (74-99) mg/dL Calcium 9.4 8.8 (8.4-10.2) mg/dL AST 44 H 38 H (14-36) U/L ALT 58 H 51 H (4-34) U/L Alkaline Phosphatase 116 117 (38-126) U/L Total Protein 6.2 L 5.7 L (6.3-8.2) g/dL Albumin 3.1 L 2.8 L (3.5-5.0) g/dL Calcium panel 05/29/24 05/30/24 Range/Units 20:00 08:28 Calcium 9.4 8.8 (8.4-10.2) mg/dL Phosphorus 4.3 (2.5-4.5) mg/dL Albumin 3.1 L 2.8 L (3.5-5.0) g/dL Pituitary panel 05/29/24 05/30/24 Range/Units 20:00 08:28 Sodium 138 141 (137-145) mmol/L Potassium 4.6 4.1 (3.5-5.1) mmol/L Chloride 109 H 114 H (98-107) mmol/L Carbon Dioxide 24 23 (22-30) mmol/L BUN 46 H 32 H (7-17) mg/dL Creatinine 0.97 0.84 (0.52-1.04) mg/dL Glucose 156 H 100 H (74-99) mg/dL Calcium 9.4 8.8 (8.4-10.2) mg/dL Adrenal panel 05/29/24 05/30/24 Range/Units 20:00 08:28 Sodium 138 141 (137-145) mmol/L Potassium 4.6 4.1 (3.5-5.1) mmol/L Chloride 109 H 114 H (98-107) mmol/L Carbon Dioxide 24 23 (22-30) mmol/L BUN 46 H 32 H (7-17) mg/dL Creatinine 0.97 0.84 (0.52-1.04) mg/dL Glucose 156 H 100 H (74-99) mg/dL Calcium 9.4 8.8 (8.4-10.2) mg/dL Total Bilirubin 0.3 0.3 (0.2-1.3) mg/dL AST 44 H 38 H (14-36) U/L ALT 58 H 51 H (4-34) U/L Alkaline Phosphatase 116 117 (38-126) U/L Total Protein 6.2 L 5.7 L (6.3-8.2) g/dL Albumin 3.1 L 2.8 L (3.5-5.0) g/dL
[2024-05-31 17:33] LABS: Glucose,Whole Blood 96 mg/dL (70-110)
[2024-05-31 20:12] LABS: Glucose,Whole Blood 273 mg/dL (70-110)
[2024-05-31] MEDS: FAMOTIDINE 20 MG/2 ML VIAL IV SCH (21:00)
[2024-05-31] MEDS: METOPROLOL TARTRATE 50 MG TAB PO SCH (21:01)
[2024-06-01 05:55] LABS: Glucose,Whole Blood 148 mg/dL (70-110)
[2024-06-01] MEDS ORDERED: FAMOTIDINE 20 MG TAB PO SCH (09:00)
--- NOTE | 2024-06-01 09:14 | P.CONS ---
History of Present Illness - Reason for Consult Consult date: 05/31/24 Diarrhea Requesting physician: Dell Pike - Chief Complaint Nausea vomiting diarrhea abdominal pain x 2 days - History of Present Illness Patient is a 54-year-old female with a past medical history significant for diabetes mellitus hypertension patient did have a history of diabetic gastroparesis with recurrent vomiting and did have a PEG tube for feeding patient has been brought into the hospital via EMS with complaint of nausea vomiting and diffuse abdominal pain that apparently has been getting worse over the last 2 days patient mention she did have a multiple episodes of vomiting unable to keep anything down has been complaining of abdominal pain which is d iffuse moderate to severe intensity without any radiation she did have some diarrhea with the last bowel movement yesterday which was loose but no blood in mucus in the stool patient on presentation to the hospital was afebrile and no fever have been ordered subsequently patient was tachycardic but not hypotensive or hypoxic and no need for supplemental oxygen patient did have a white count of 8.2 with no left shift creatinine is 0.84 electrolytes are normal liver enzymes mildly elevated UA has been negative patient did have abdominal pelvis CT no acute abnormality in the abdominal pelvis infectious he was consulted regarding diarrhea and need for antibiotic therapy Review of Systems Positive point and negatives has been mentioned in the HPI, complete review of systems was performed and all other systems are negative 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 MDRO Source:: Urine VRE and ESBL, MRSA-ABD Past Surgical History: Cholecystectomy, Orthopedic Surgery, Tubal Ligation Additional Past Surgical History / Comment(s): rt shoulder, J tube placement Past Anesthesia/Blood Transfusion Reactions: No Reported Reaction Additional Past Anesthesia/Blood Transfusion Reaction / Comm: UNK FAMILY HX Past Psychological History: Anxiety Smoking Status: Current every day smoker Past Alcohol Use History: None Reported Additional Past Alcohol Use History / Comment(s): STARTED SMOKING 1987, smokes about 6 cigs/day Past Drug Use History: None Reported Additional Drug Use History / Comment(s): Patient denies using marijuana. - Past Family History Father History Unknown: Yes Additional Family Medical History / Comment(s): unknown-adopted Mother History Unknown: Yes Additional Family Medical History / Comment(s): unknown- adopted Medications and Allergies Home Medications Medication Instructions Recorded Confirmed Type ALPRAZolam [Xanax] 0.25 mg PO BID 05/12/23 05/30/24 History Atorvastatin [Lipitor] 20 mg PO DAILY 05/12/23 05/30/24 History Insulin Lispro [humaLOG Kwikpen] See Protocol SQ ACHS 05/12/23 05/30/24 History Mirtazapine [Remeron] 30 mg PO HS 05/12/23 05/30/24 History Metoclopramide [Reglan] 10 mg PO ACHS 30 Days #120 tab 05/15/23 05/30/24 Rx Folic Acid 1 mg PO DAILY 06/15/23 05/30/24 History Ferrous Sulfate [Iron (65 MG 325 mg PO DAILY 12/09/23 05/30/24 History Elemental)] Insulin Glargine [Lantus Vial] 10 unit SQ DAILY 12/09/23 05/30/24 History amLODIPine [Norvasc] 5 mg PO DAILY 90 Days #90 tab 12/19/23 05/30/24 Rx Famotidine [Pepcid] 20 mg PO BID 30 Days #60 tab 01/18/24 05/30/24 Rx Ondansetron [Zofran] 4 mg PO BID 02/21/24 05/30/24 History methocarbamoL [Robaxin] 250 mg PO QID 02/21/24 05/30/24 History Loperamide [Imodium] 2 mg PO QID PRN cap 03/10/24 05/30/24 Rx Artificial Tears-Hypromellose 1 drop BOTH EYES QID PRN 03/19/24 05/30/24 History [Artificial Tear Drops] Scopolamine [Scopolamine 1 MG/72 1 patch TRANSDERM Q72H 03/19/24 05/30/24 History HR patch] HYDROcodone/APAP 10-325MG [[place] 1 tab PO TID 05/10/24 05/30/24 History 10-325] Omeprazole 40 mg PO DAILY 05/10/24 05/30/24 History Cholestyramine (with Sugar) 4 gm PO BID@1000,1800 30 Days #30 05/20/24 05/30/24 Rx [Questran Packet] packet Ipratropium-Albuterol Nebulize 3 ml INHALATION RT-TID PRN each 05/20/24 05/30/24 Rx [Duoneb 0.5 mg-3 mg/3 ml Soln] Metoprolol Tartrate [Lopressor] 25 mg PO BID 30 Days #60 tab 05/20/24 05/30/24 Rx lisinopriL [Zestril] 5 mg PO DAILY 30 Days #30 tab 05/20/24 05/30/24 Rx Cefdinir 300 mg PO Q12HR 05/30/24 05/30/24 History Allergies Allergy/AdvReac Type Severity Reaction Status Date / Time fentanyl AdvReac "wobbly" Verified 05/29/24 19:34 Physical Exam Vitals: Vital Signs Temp Pulse Resp BP BP Pulse Ox 05/31/24 13:22 97.7 F 109 H 19 177/101 96 05/31/24 09:23 131 H 139/60 05/31/24 07:35 17 05/31/24 07:00 122 H 17 172/100 97 05/31/24 02:00 97.7 F 121 H 16 114/71 98 05/30/24 20:45 117 H 05/30/24 20:00 98.4 F 117 H 16 189/96 97 05/30/24 15:19 108 H 165/102 05/30/24 14:57 97.5 F L 119 H 19 207/104 100 05/30/24 14:00 120 H 205/98 Intake and Output 05/30/24 05/31/24 05/31/24 22:59 06:59 14:59 Intake Total 590 Output Total 100 Balance 490 Intake: Other 590 Output: Urine 100 Other: Voiding Method Toilet # Bowel Movements 1 Weight 34.019 kg GENERAL DESCRIPTION: Middle-aged female lying in bed, no distress. No tachypnea or accessory muscle of respiration use. HEENT: Shows Pallor , no scleral icterus. Oral mucous membrane is dry. NECK: Trachea central, no thyromegaly. LUNGS: Unlabored breathing. Clear to auscultation anteriorly. No wheeze or crackle. HEART: S1, S2, regular rate and rhythm. No loud murmur ABDOMEN: Soft, mild tendernes EXTREMITIES: No edema of feet. SKIN: No rash, no masses palpable. NEUROLOGICAL: The patient is awake, alert, oriented x3, mood and affect normal. Results CBC & Chem 7: 05/30/24 08:28 05/30/24 08:28 Labs: Abnormal Lab Results - Last 24 Hours (Table) 05/30/24 Range/Units 17:12 POC Glucose (mg/dL) 111 H (70-110) mg/dL Assessment and Plan (1) Diarrhea Current Visit: No Status: Acute Code(s): R19.7 - DIARRHEA, UNSPECIFIED S NOMED Code(s): 83755594 Plan: 1patient presented hospital with acute nausea vomiting diarrhea and abdominal pain in this patient who did have a history of diabetic gastroparesis and recurrent admission to the hospital with a similar problem patient symptoms are mostly nausea vomiting then diarrhea however still have some liquid stool patient is not running any fever white count is normal CT abdominal pelvis did not show any evidence of colitis making infectious etiology to be less likely 2we will check a stool for C. difficile and stool culture 3continue with the symptomatic treatment of nausea vomiting gastroparesis per admitting the surgical team 4if the patient spike any fever or any worsening white count patient will be cultured and started on appropriate antibiotics at that point. We will follow on clinical condition and cultures to further adjust medication if needed Thank you for this consultation we will follow the patient along with you Dictation was produced using [employer] dictation software. please excuse any grammatical, word or spelling errors. Time with Patient: Greater than 30
--- NOTE | 2024-06-01 10:41 | P.PN ---
Subjective Progress Note Date: 06/01/24 SURGICAL PROGRESS NOTE CHIEF COMPLAINT: Nausea and vomiting HISTORY OF PRESENT ILLNESS: Patient from the hospital with nausea vomiting and diarrhea. Patient reports that she is hungry. Tube feeds are to be started today. She does report nausea. Afebrile. Blood sugar is 148. Thiamine level pending. PHYSICAL EXAM: VITAL SIGNS: Reviewed. GENERAL: Well-developed in no acute distress. ABDOMEN: Soft. Nondistended. Nontender. G-tube site clean dry and intact NEUROLOGIC: Alert and oriented. Cranial nerves II through XII grossly intact. ASSESSMENT: 1. Abdominal pain with intractable nausea and vomiting 2. Diabetic gastroparesis with gastropathy 3. Diabetic neuropathy 4. Chronic back pain 5. Hypertensive heart disease 6. Underweight, BMI 15.1 PLAN: -Dietitian on consult. Tube feeds to be started today. Recommend starting tube feeds at a low rate and titrating slowly. -Continue clear liquids -Patient on a drug holiday currently off of Remeron and Robaxin. These medications have side effects of nausea and vomiting and abdominal pain [employer] note has been reviewed by physician. Signing provider agrees with the documented findings, assessment, and plan of care. Objective - Vital Signs Vital signs: Vital Signs Temp 98.0 F 06/01/24 07:00 Pulse 102 H 06/01/24 07:00 Resp 16 06/01/24 07:00 BP 172/94 06/01/24 07:00 Pulse Ox 95 06/01/24 07:00 FiO2 Intake & Output 05/31/24 06/01/24 06/01/24 18:59 06:59 18:59 Weight 37.3 kg Other: Voiding Method Toilet Toilet # Voids 1 - Labs CBC & Chem 7: 05/30/24 08:28 05/30/24 08:28 Labs: Abnormal Lab Results - Last 24 Hours (Table) 05/31/24 06/01/24 Range/Units 20:10 05:54 POC Glucose (mg/dL) 273 H 148 H (70-110) mg/dL
[2024-06-01 12:26] LABS: Glucose,Whole Blood 197 mg/dL (70-110)
[2024-06-01 17:12] VITALS: BMI 16.6
[2024-06-01 17:28] LABS: Glucose,Whole Blood 108 mg/dL (70-110)
[2024-06-01 20:46] LABS: Glucose,Whole Blood 101 mg/dL (70-110)
[2024-06-01] MEDS ORDERED: HYDROcodone/APAP 7.5-325MG 1 EACH TAB PO PRN (21:14)
--- NOTE | 2024-06-01 21:36 | P.PN ---
Subjective Progress Note Date: 06/01/24 Principal diagnosis: Reason for follow-up is diarrhea Patient is a 54-year-old female with a past medical history significant for diabetes mellitus hypertension patient did have a history of diabetic gastroparesis with recurrent vomiting and did have a PEG tube for feeding patie nt has been brought into the hospital with acute nausea vomiting abdominal pain and diarrhea CT abdominal pelvis did not show any acute abnormality ID consulted for diarrhea to rule out infectious etiology. On today's evaluation that is 06/01/2024, patient has been afebrile, patient is breathing comfortably and is currently on room air, patient denies having any significant cough no chest pain, patient still some nausea but vomiting has improved abdominal pain he did have diarrhea but did not provide any stool sample. No new lab has been obtained today stool studies not collected Objective - Vital Signs Vital signs: Vital Signs Temp 98.0 F 06/01/24 07:00 Pulse 102 H 06/01/24 07:00 Resp 16 06/01/24 07:00 BP 172/94 06/01/24 07:00 Pulse Ox 95 06/01/24 07:00 FiO2 Intake & Output 05/31/24 06/01/24 06/01/24 18:59 06:59 18:59 Intake Total 240 Balance 240 Weight 37.3 kg Intake: Oral 240 Other: Voiding Method Toilet Toilet # Voids 1 - Exam GENERAL DESCRIPTION: Middle-age female lying in bed in no distress RESPIRATORY SYSTEM: Unlabored breathing , decreased breath sounds at bases HEART: S1 S2 regular rate and rhythm , ABDOMEN: Soft , no tenderness EXTREMITIES: No edema feet - Labs CBC & Chem 7: 05/30/24 08:28 05/30/24 08:28 Labs: Abnormal Lab Results - Last 24 Hours (Table) 05/31/24 06/01/24 06/01/24 Range/Units 20:10 05:54 12:25 POC Glucose (mg/dL) 273 H 148 H 197 H (70-110) mg/dL Assessment and Plan (1) Diarrhea Current Visit: No Status: Acute Code(s): R19.7 - DIARRHEA, UNSPECIFIED SNOMED Code(s): 39051316 Plan: 1patient presented hospital with acute nausea vomiting diarrhea and abdominal pain in this patient who did have a history of diabetic gastroparesis and recurrent admission to the hospital with a similar problem patient symptoms are mostly nausea vomiting then diarrhea however still have some liquid stool patient is not running any fever white count is normal CT abdominal pelvis did not show any evidence of colitis making infectious etiology to be less likely 2 stool for C. difficile and stool culture has been requested pending collection will monitor closely off antibiotic Dictation was produced using [employer] dictation software. please excuse any grammatical, word or spelling errors. Time with Patient: Less than 30
[2024-06-01] MEDS: ONDANSETRON 4 MG TAB PO PRN (21:43)
--- NOTE | 2024-06-01 23:18 | PN ---
PROGRESS NOTE Lesa Patterson came in with PHANI, nausea, vomiting from probable gastric infection, gastroenteritis versus pneumonia, started on breathing treatments. Her sugars had been in the 100s to 90s to 80s. Her vomiting has greatly improved since yesterday. She is tolerating clear liquids and back on tube feeding. She is on IV. She is going to switch to oral medications. Blood pressure 138/81, O2 of 99% on room air, temp 97.2, pulse 87, respiratory rate 16 to 18. Her sugars are 273 today in the last 24 hours. No microbiology is back. Check electrolytes in the morning. Gastroparesis, nausea, vomiting, improved. Continue IV hydration. Current medications. Restarted tube feeding. CT scan of abdomen and pelvis is negative. Dr. Pathaked to see her for possible infection. Prognosis guarded. Please see further orders. She is greatly improved. Monitor for another 24 to 48 hours. MMODL / IJN: [id number] /
[2024-06-02] MEDS: FAMOTIDINE 20 MG TAB PO SCH ×2 (03:54→08:11)
[2024-06-02 06:27] LABS: Glucose,Whole Blood 164 mg/dL (70-110)
[2024-06-02 06:28] LABS: ALT 27 U/L (4-34); AST 24 U/L (14-36); African American GFR (CKD) >90 (>60 ml/min/1.73 sqM); Albumin 2.2 g/dL (3.5-5.0); Albumin/Globulin Ratio 0.8; Alkaline Phosphatase 87 U/L (38-126); Anion Gap 1 mmol/L; Blood Urea Nitrogen 15 mg/dL (7-17); Carbon Dioxide 23 mmol/L (22-30); Chloride 107 mmol/L (98-107); Globulin 2.6 g/dL; Glucose 176 mg/dL (74-99); Non-African American GFR(CKD) >90 (>60 ml/min/1.73 sqM); Potassium 3.9 mmol/L (3.5-5.1); Sodium 131 mmol/L (137-145); Total Bilirubin 0.2 mg/dL (0.2-1.3); Total Protein 4.8 g/dL (6.3-8.2)
[2024-06-02 07:52] LABS: Basophils # (A) 0.1 k/uL (0-0.2); Basophils % (A) 1 %; Eosinophils # (A) 0.3 k/uL (0-0.7); Eosinophils % (A) 3 %; HCT 31.8 % (34.0-46.0); HGB 10.2 gm/dL (11.4-16.0); Lymphocytes % (A) 25 %; MCH 29.4 pg (25.0-35.0); MCV 91.8 fL (80.0-100.0); Mean Platelet Volume 7.2; Monocytes # (A) 0.4 k/uL (0-1.0); Monocytes % (A) 5 %; Neutrophils # (A) 5.1 k/uL (1.3-7.7); Neutrophils % (A) 65 %; Platelet Count 355 k/uL (150-450); RBC 3.47 m/uL (3.80-5.40); RDW 15.1 % (11.5-15.5); WBC 7.9 k/uL (3.8-10.6)
[2024-06-02 08:10] VITALS: RESP 16
[2024-06-02] MEDS: ARTIFICIAL TEARS-HYPROMELLOSE DROPS 15 ML BTL BOTH EYES PRN (08:15)
--- NOTE | 2024-06-02 11:29 | P.PN ---
Subjective Progress Note Date: 06/02/24 SURGICAL PROGRESS NOTE CHIEF COMPLAINT: Nausea and vomiting HISTORY OF PRESENT ILLNESS: Patient from the hospital with nausea vomiting and diarrhea. Patient is tolerating tube feeds. She reports she is hungry. She has had no further nausea or vomiting. Denies any further diarrhea. Patient wants to be discharged. Afebrile. WBC 7.9 thiamine level pending PHYSICAL EXAM: VITAL SIGNS: Reviewed. GENERAL: Well-developed in no acute distress. ABDOMEN: Soft. Nondistended. Nontender. G-tube site clean dry and intact NEUROLOGIC: Alert and oriented. Cranial nerves II through XII grossly intact. ASSESSMENT: 1. Abdominal pain with intractable nausea and vomiting resolved 2. Diabetic gastroparesis with gastropathy 3. Diabetic neuropathy 4. Chronic back pain 5. Hypertensive heart disease 6. Underweight, BMI 15.1 PLAN: -Advance diet to chopped -Continue tube feeds. Dietitian titrating tube feeds -No surgical intervention planned -Patient can be discharged from surgical standpoint when medically cleared -Patient on a drug holiday currently off of Remeron and Robaxin. These medica tions have side effects of nausea and vomiting and abdominal pain Physician Tax Investigator note has been reviewed by physician. Signing provider agrees with the documented findings, assessment, and plan of care. Objective - Vital Signs Vital signs: Vital Signs Temp 98.6 F 06/02/24 07:27 Pulse 88 06/02/24 07:27 Resp 16 06/02/24 07:27 BP 137/77 06/02/24 07:27 Pulse Ox 98 06/02/24 07:27 FiO2 Intake & Output 06/01/24 06/02/24 06/02/24 18:59 06:59 18:59 Intake Total 480 120 Output Total 400 300 Balance 80 -180 Weight 37.3 kg 37.8 kg Intake: Oral 480 120 Output: Urine 400 300 Other: Voiding Method Toilet Toilet # Voids 2 - Labs CBC & Chem 7: 06/02/24 07:39 06/02/24 05:07 Labs: Abnormal Lab Results - Last 24 Hours (Table) 06/01/24 06/02/24 06/02/24 Range/Units 12:25 05:07 06:24 RBC (3.80-5.40) m/uL Hgb (11.4-16.0) gm/dL Hct (34.0-46.0) % Sodium 131 L (137-145) mmol/L Glucose 176 H (74-99) mg/dL POC Glucose (mg/dL) 197 H 164 H (70-110) mg/dL Calcium 8.0 L (8.4-10.2) mg/dL Total Protein 4.8 L (6.3-8.2) g/dL Albumin 2.2 L (3.5-5.0) g/dL 06/02/24 Range/Units 07:39 RBC 3.47 L (3.80-5.40) m/uL Hgb 10.2 L (11.4-16.0) gm/dL Hct 31.8 L (34.0-46.0) % Sodium (137-145) mmol/L Glucose (74-99) mg/dL POC Glucose (mg/dL) (70-110) mg/dL Calcium (8.4-10.2) mg/dL Total Protein (6.3-8.2) g/dL Albumin (3.5-5.0) g/dL Microbiology - Last 24 Hours (Table) 06/01/24 01:15 Urine Culture - Preliminary Urine,Clean Catch Gram Neg Bacilli
[2024-06-02 12:32] LABS: Glucose,Whole Blood 68 mg/dL (70-110)
[2024-06-02 12:49] LABS: Glucose,Whole Blood 77 mg/dL (70-110)
[2024-06-02 16:14] VITALS: BP 114/67; PULSE 76; TEMP 98.2
--- NOTE | 2024-06-03 11:51 | P.PN ---
Subjective Progress Note Date: 06/02/24 Principal diagnosis: Reason for follow-up is diarrhea Patient is a 54-year-old female with a past medical history significant for diabetes mellitus hypertension patient did have a history of diabetic gastroparesis with recurrent vomiting and did have a PEG tube for feeding patie nt has been brought into the hospital with acute nausea vomiting abdominal pain and diarrhea CT abdominal pelvis did not show any acute abnormality ID consulted for diarrhea to rule out infectious etiology. On today's evaluation that is 06/02/2024, Patient is afebrile this morning patient denies having any chest pain shortness of breath or cough, the patient is currently on room air, patient did have improvement her abdominal pain nausea vomiting and diarrhea has slowed down patient mention she is feeling better wants to go home. Patient did have white count of 7.9 creatinine 0.71 urine with gram-negative UA was negative Objective - Vital Signs Vital signs: Vital Signs Temp 98.6 F 06/02/24 07:27 Pulse 88 06/02/24 07:27 Resp 16 06/02/24 07:27 BP 137/77 06/02/24 07:27 Pulse Ox 98 06/02/24 07:27 FiO2 Intake & Output 06/01/24 06/02/24 06/02/24 18:59 06:59 18:59 Intake Total 480 120 Output Total 400 300 Balance 80 -180 Weight 37.3 kg 37.8 kg Intake: Oral 480 120 Output: Urine 400 300 Other: Voiding Method Toilet Toilet Toilet # Voids 2 - Exam GENERAL DESCRIPTION: Middle-age female lying in bed in no distress RESPIRATORY SYSTEM: Unlabored breathing , decreased breath sounds at bases HEART: S1 S2 regular rate and rhythm , ABDOMEN: Soft , no tenderness EXTREMITIES: No edema feet - Labs CBC & Chem 7: 06/02/24 07:39 06/02/24 05:07 Labs: Abnormal Lab Results - Last 24 Hours (Table) 06/02/24 06/02/24 06/02/24 Range/Units 05:07 06:24 07:39 RBC 3.47 L (3.80-5.40) m/uL Hgb 10.2 L (11.4-16.0) gm/dL Hct 31.8 L (34.0-46.0) % Sodium 131 L (137-145) mmol/L Glucose 176 H (74-99) mg/dL POC Glucose (mg/dL) 164 H (70-110) mg/dL Calcium 8.0 L (8.4-10.2) mg/dL Total Protein 4.8 L (6.3-8.2) g/dL Albumin 2.2 L (3.5-5.0) g/dL 06/02/24 Range/Units 12:31 RBC (3.80-5.40) m/uL Hgb (11.4-16.0) gm/dL Hct (34.0-46.0) % Sodium (137-145) mmol/L Glucose (74-99) mg/dL POC Glucose (mg/dL) 68 L (70-110) mg/dL Calcium (8.4-10.2) mg/dL Total Protein (6.3-8.2) g/dL Albumin (3.5-5.0) g/dL Microbiology - Last 24 Hours (Table) 06/01/24 01:15 Urine Culture - Preliminary Urine,Clean Catch Gram Neg Bacilli Assessment and Plan (1) Diarrhea Status: Acute Code(s): R19.7 - DIARRHEA, UNSPECIFIED SNOMED Code(s): 50476944 Plan: 1patient presented hospital with acute nausea vomiting diarrhea and abdominal pain in this patient who did have a history of diabetic gastroparesis and recurrent admission to the hospital with a similar problem patient symptoms are mostly nausea vomiting then diarrhea however still have some liquid stool patient is not running any fever white count is normal CT abdominal pelvis did not show any evidence of colitis making infectious etiology to be less likely 2patient has shown clinical improvement more likely symptoms are related to diabetic gastroparesis and not infectious etiology as recommending no antibiotic on discharge she is growing gram-negative in the urine however UA was negative more likely contaminant or colonization Dictation was produced using [employer] dictation software. please excuse any grammatical, word or spelling errors. Time with Patient: Less than 30
--- NOTE | 2024-06-04 15:54 | CDI ---
Documentation Clarification Form Date: 06/04/2024 From: Steffany Stewart Contact via [employer] Email: [email or web address] Admit Date: 06/01/2024 11:25:00 AM Patient Name: Lesa Patterson Visit Number: [id number] Discharge Date: 06/02/2024 05:44:00 PM ATTENTION: The Clinical Documentation Specialists (CDI) and [facility] Coding Staff appreciate your assistance in clarifying documentation. Please respond to the clarification below the line at the bottom and electronically sign. The CDI & [facility] Coding staff will review the response and follow-up if needed. Please note: Queries are made part of the Legal Health Record. If you have any questions, please contact the author of this message via ITS. Doctor/Provider: Dell Pike Malnutrition is documented in the record. Additional clarification regarding the severity of malnutrition is requested. History/Risk Factors: 54yo noncompliant smoker w/ a h/o uncontrolled DM, Fe deficiency anemia and severe gastroparesis s/p PEG presented with N/V/D, diffuse abd pain, PHANI and acute on chronic anemia. Clinical Indicators: ED noted pt appeared cachectic. IM PN 05/31 noted lactic acidosis. ID consult noted pallor and dry oral mucous membranes. Current BMI: 15.[address] consult 05/30: pt underweight with poor nutritional intake, inadequate enteral nutrition infusion r/t N/V 2/2 uncontrolled DM AEB EN not running when pt was admitted. Treatment: dysphagia level 3: chopped diet w/ consistent carbohydrate, Vital AF 1.2 @ 10ml/hr with goal of 42 ml/hr w/ 30 ml H2O flush every 4 hrs, Pepcid IV/po, Ferrous sulfate po, Folic Acid po, Reglan IV, Zofran IV, Protonix IV, IV fluid bolus, IV fluid @ 75ml/hr Please clarify the severity of malnutrition, if known: [ ] Mild Protein-Calorie Malnutrition [ ] Moderate Protein-Calorie Malnutrition [ ] Severe Protein-Calorie Malnutrition [ ] Malnutrition, unknown severity [ ] Other condition, please specify [ ] Unable to Determine (Template Last Revised: December 2022) MTDD
== END 2024-06-02 17:44 | disposition home or self-care (01) | DRG 74 ==
LOC: EC 19:27 → 6NMEDSUR 21:51 → OBSVTOIN 06-01 11:25
PROVIDERS: ADMIT Family Medicine; ATTEND Family Medicine
DX: E10.43 Type 1 diabetes mellitus with diabetic autonomic (poly)neuropathy (principal); N17.9 Acute kidney failure, unspecified; E46 Unspecified protein-calorie malnutrition; E87.20 Acidosis, unspecified; Z68.1 Body mass index [BMI] 19.9 or less, adult; E10.42 Type 1 diabetes mellitus with diabetic polyneuropathy; E10.65 Type 1 diabetes mellitus with hyperglycemia; J44.9 Chronic obstructive pulmonary disease, unspecified; Z79.4 Long term (current) use of insulin; Z93.1 Gastrostomy status; I11.9 Hypertensive heart disease without heart failure; K31.84 Gastroparesis; D50.9 Iron deficiency anemia, unspecified; F17.210 Nicotine dependence, cigarettes, uncomplicated; G89.29 Other chronic pain; F41.9 Anxiety disorder, unspecified; Z79.899 Other long term (current) drug therapy; Z91.148 Patient's other noncompliance with medication regimen for other reason
CPT/HCPCS: 36415; 74176; 80053; 81001; 82150; 83690; 83735; 84100; 84145; 84425; 85025; 87077; 87086; 87186; 96361; 96374; 96375; 96376; 99285

== ENCOUNTER 2024-06-19 10:25 | Inpatient (IN) | payer MEDICARE ==
--- NOTE | 2024-06-19 10:43 | ED ---
General Adult HPI - General Stated complaint: Abd pain Time Seen by Provider: 06/19/24 10:41 - History of Present Illness Initial comments: 54-year-old female with history of uncontrolled diabetes and gastroparesis presents for PEG tube issue. States her feeding tube fell out this morning. Also reports nausea, vomiting, and diffuse abdominal pain for 1 week. - Related Data Home Medications Medication Instructions Recorded Confirmed ALPRAZolam [Xanax] 0.25 mg PO BID 05/12/23 06/19/24 Atorvastatin [Lipitor] 20 mg PO DAILY 05/12/23 06/19/24 Insulin Lispro [humaLOG Kwikpen] See Protocol SQ ACHS 05/12/23 06/19/24 Mirtazapine [Remeron] 30 mg PO HS 05/12/23 06/19/24 Folic Acid 1 mg PO DAILY 06/15/23 06/19/24 Ferrous Sulfate [Iron (65 MG 325 mg PO DAILY 12/09/23 06/19/24 Elemental)] Insulin Glargine [Lantus Vial] 10 unit SQ DAILY 12/09/23 06/19/24 Ondansetron [Zofran] 4 mg PO BID 02/21/24 06/19/24 methocarbamoL [Robaxin] 250 mg PO QID 02/21/24 06/19/24 Artificial Tears-Hypromellose 1 drop BOTH EYES QID PRN 03/19/24 06/19/24 [Artificial Tear Drops] Scopolamine [Scopolamine 1 MG/72 1 patch TRANSDERM Q72H 03/19/24 06/19/24 HR patch] HYDROcodone/APAP 10-325MG [Deep Gap 1 tab PO TID 05/10/24 06/19/24 10-325] Omeprazole 40 mg PO DAILY 05/10/24 06/19/24 Cefdinir 300 mg PO Q12HR 05/30/24 06/19/24 Metoprolol Tartrate [Lopressor] 50 mg PO BID 06/19/24 06/19/24 Previous Rx's Medication Instructions Recorded Metoclopramide [Reglan] 10 mg PO ACHS 30 Days #120 tab 05/15/23 amLODIPine [Norvasc] 5 mg PO DAILY 90 Days #90 tab 12/19/23 Famotidine [Pepcid] 20 mg PO BID 30 Days #60 tab 01/18/24 Loperamide [Imodium] 2 mg PO QID PRN cap 03/10/24 Cholestyramine (with Sugar) 4 gm PO BID@1000,1800 30 Days #30 05/20/24 [Questran Packet] packet Ipratropium-Albuterol Nebulize 3 ml INHALATION RT-TID PRN each 05/20/24 [Duoneb 0.5 mg-3 mg/3 ml Soln] lisinopriL [Zestril] 5 mg PO DAILY 30 Days #30 tab 05/20/24 Allergies Allergy/AdvReac Type Severity Reaction Status Date / Time fentanyl AdvReac "wobbly" Verified 06/19/24 14:49 Review of Systems ROS Statement: Those systems with pertinent positive or pertinent negative responses have been documented in the HPI. ROS Other: All systems not noted in ROS Statement are negative. Past Medical History Past Medical History: Diabetes Mellitus, Hypertension, Musculoskeletal Disorder Additional Past Medical History / Comment(s): FREQ NAUSEA, PAINFUL RT SHOULDER "FROZEN SHOULDER", NEUROPATHY PORFIRIO LEGS and hands, Blood pressures can run high History of Any Multi-Drug Resistant Organisms: ESBL, MRSA, VRE Date of last positivie culture/infection: 06/01/24-ESBL; 10/06/22-VRE; 05/19/23- MRSA MDRO Source:: ESBL-urine; VRE-urine; MRSA-abdomen Past Surgical History: Cholecystectomy, Orthopedic Surgery, Tubal Ligation Additional Past Surgical History / Comment(s): rt shoulder, J tube placement Past Anesthesia/Blood Transfusion Reactions: No Reported Reaction Additional Past Anesthesia/Blood Transfusion Reaction / Comment(s): UNK FAMILY HX Past Psychological History: Anxiety Smoking Status: Current every day smoker Past Alcohol Use History: None Reported Additional Past Alcohol Use History / Comment(s): STARTED SMOKING 1987, smokes about 6 cigs/day Past Drug Use History: None Reported Additional Drug Use History / Comment(s): Patient denies using marijuana. - Past Family History Father History Unknown: Yes Additional Family Medical History / Comment(s): unknown-adopted Mother History Unknown: Yes Additional Family Medical History / Comment(s): unknown- adopted General Exam - General Exam Comments Initial Comments: Visual Physical Exam General: Well-appearing, nontoxic, no acute distress. Head: Normocephalic, atraumatic Eyes: PERRLA, EOMI ENT: Airway patent Chest: Nonlabored breathing Skin: No visual rash, normal skin tone Neuro: Alert and oriented 3 Musculoskeletal: No gross abnormalities General appearance: alert, in no apparent distress Head exam: Present: atraumatic, normocephalic, normal inspection GI/Abdominal exam: Present: soft, normal bowel sounds, other (No erythema, tenderness, or drainage at PEG tube site). Absent: distended, tenderness, guarding, rebound, rigid Neurological exam: Present: alert, oriented X3 Psychiatric exam: Present: normal affect, normal mood Skin exam: Present: warm, dry, intact, normal color. Absent: rash Course Vital Signs 06/19/24 06/19/24 11:36 14:35 Temperature 98.1 F Pulse Rate 118 H 59 L Respiratory 20 18 Rate Blood Pressure 132/81 150/90 O2 Sat by Pulse 96 100 Oximetry EKG Findings - EKG Results: EKG: interpreted by ERMD (EKG reveals sinus tachycardia with short RI interval. Ventricular rate 110 bpm, RI interval 108, QRS duration 71, QT/QTc 330/396) Medical Decision Making - Medical Decision Making I completed the quick note portion of this chart signed Sanjana Montiel PA-C Was pt. sent in by a medical professional or institution (DANA Rosales, ASSOCIATE STORE MANAGER, urgent care, hospital, or assisted...) When possible be specific @ -No Did you speak to anyone other than the patient for history (EMS, parent, family, police, friend...)? What history was obtained from this source @ -No Did you review nursing and triage notes (agree or disagree)? Why? @ -I reviewed and agree with nursing and triage notes Were old charts reviewed (outside hosp., previous admission, EMS record, old EKG, old radiological studies, urgent care reports/EKG's, assisted records)? Report findings @ -No old charts were reviewed Differential Diagnosis (chest pain, altered mental status, abdominal pain women, abdominal pain men, vaginal bleeding, weakness, fever, dyspnea, syncope, headache, dizziness, GI bleed, back pain, seizure, CVA, palpatations, mental health, musculoskeletal)? @ -Gastroparesis, hyperglycemia, DKA, HHS EKG interpreted by me (3pts min.). @ -As above X-rays interpreted by me (1pt min.). @ -None done CT interpreted by me (1pt min.). @ -None done U/S interpreted by me (1pt. min.). @ -None done What testing was considered but not performed or refused? (CT, X-rays, U/S, labs)? Why? @ -None What meds were considered but not given or refused? Why? @ -Dextrose not given with insulin due to glucose 345 Did you discuss the management of the patient with other professionals (professionals i.e. DrLisa, PA, ASSOCIATE STORE MANAGER, lab, RT, psych nurse, social work professor, piano regulator, teacher, chief strategy officer, geriatric case manager)? Give summary @ -I spoke with Dr. Pike who accepts admission for hyperkalemia with consultation to surgery for J-tube placement Was smoking cessation discussed for >3mins.? @ -No Was critical care preformed (if so, how long)? @ -No Were there social determinants of health that impacted care today? How? (Homelessness, low income, unemployed, alcoholism, drug addiction, trans portation, low edu. Level, literacy, decrease access to med. care, [place] [facility], rehab)? @ -No Was there de-escalation of care discussed even if they declined (Discuss DNR or withdrawal of care, Hospice)? DNR status @ -No What co-morbidities impacted this encounter? (DM, HTN, Smoking, COPD, CAD, Cancer, CVA, ARF, Chemo, Hep., AIDS, mental health diagnosis, sleep apnea, morbid obesity)? @ -None Was patient admitted / discharged? Hospital course, mention meds given and route, prescriptions, significant lab abnormalities, going to OR and other pertinent info. @ -Admitted. 54-year-old female with history of gastroparesis presenting for nausea/vomiting x 1 week. Also states J-tube fell out this morning. Patient is tachycardic, otherwise vital signs within acceptable limits. Patient was started on IV fluids, analgesics, and antiemetics. Lab work remarkable for hyperkalemia 6.2, CO2 of 35, BUN 56, glucose 345, elevated liver enzymes. EKG reveals normal sinus rhythm with short RI interval. Acetone negative, urinalysis negative for ketones. Patient does not appear to be in DKA. Patient was given calcium gluconate and insulin for hyperkalemia. I spoke with Dr. Pike who accepts admission for hyperkalemia with consultation to surgery for J-tube placement. Case was discussed with my ED attending Dr. Lentz. Undiagnosed new problem with uncertain prognosis? @ -No Drug Therapy requiring intensive monitoring for toxicity (Heparin, Nitro, Insulin, Cardizem)? @ -No Were any procedures done? @ -No Diagnosis/symptom? @ -Hyperkalemia Acute, or Chronic, or Acute on Chronic? @ -Acute Uncomplicated (without systemic symptoms) or Complicated (systemic symptoms)? @ -Complicated Side effects of treatment? @ -No Exacerbation, Progression, or Severe Exacerbation? @ -No Poses a threat to life or bodily function? How? (Chest pain, USA, DC, pneumonia, PE, COPD, DKA, ARF, appy, cholecystitis, CVA, Diverticulitis, Homicidal, Suicidal, threat to staff... and all critical care pts) @ -Yes hyperkalemia - Lab Data Result diagrams: 06/19/24 13:05 06/19/24 13:05 Lab Results 06/19/24 06/19/24 06/19/24 Range/Units 13:05 13:05 13:05 WBC 7.6 (3.8-10.6) k/uL RBC 4.56 (3.80-5.40) m/uL Hgb 13.5 D (11.4-16.0) gm/dL Hct 42.4 (34.0-46.0) % MCV 93.0 (80.0-100.0) fL MCH 29.6 (25.0-35.0) pg MCHC 31.8 (31.0-37.0) g/dL RDW 14.4 (11.5-15.5) % Plt Count 514 H (150-450) k/uL MPV 7.7 Neutrophils % 66 % Lymphocytes % 26 % Monocytes % 4 % Eosinophils % 1 % Basophils % 1 % Neutrophils # 5.0 (1.3-7.7) k/uL Lymphocytes # 2.0 (1.0-4.8) k/uL Monocytes # 0.3 (0-1.0) k/uL Eosinophils # 0.1 (0-0.7) k/uL Basophils # 0.1 (0-0.2) k/uL Sodium 134 L (137-145) mmol/L Potassium 6.2 H* (3.5-5.1) mmol/L Chloride 96 L (98-107) mmol/L Carbon Dioxide 35 H (22-30) mmol/L Anion Gap 3 mmol/L BUN 56 H (7-17) mg/dL Creatinine 1.01 (0.52-1.04) mg/dL Est GFR (CKD-EPI)AfAm 74 (>60 ml/min/1.73 sqM) Est GFR (CKD-EPI)NonAf 64 (>60 ml/min/1.73 sqM) Glucose 345 H (74-99) mg/dL POC Glucose (mg/dL) (70-110) mg/dL POC Glu Water Quality Control Engineer ID Plasma Lactic Acid Travis 1.1 (0.7-2.0) mmol/L Calcium 9.3 (8.4-10.2) mg/dL Total Bilirubin 0.2 (0.2-1.3) mg/dL AST 46 H (14-36) U/L ALT 67 H (4-34) U/L Alkaline Phosphatase 126 (38-126) U/L Total Protein 7.0 (6.3-8.2) g/dL Albumin 4.0 (3.5-5.0) g/dL Urine Color Urine Appearance (Clear) Urine pH (5.0-8.0) Ur Specific Monroe (1.001-1.035) Urine Protein (Negative) Urine Glucose (UA) (Negative) Urine Ketones (Negative) Urine Blood (Negative) Urine Nitrite (Negative) Urine Bilirubin (Negative) Urine Urobilinogen (<2.0) mg/dL Ur Leukocyte Esterase (Negative) Urine RBC (0-5) /hpf Urine WBC (0-5) /hpf Ur Squamous Epith Cells (0-4) /hpf Hyaline Casts (0-2) /lpf Urine Mucus (None) /hpf Acetone, Qual (Negative) 06/19/24 06/19/24 06/19/24 Range/Units 13:05 14:45 14:55 WBC (3.8-10.6) k/uL RBC (3.80-5.40) m/uL Hgb (11.4-16.0) gm/dL Hct (34.0-46.0) % MCV (80.0-100.0) fL MCH (25.0-35.0) pg MCHC (31.0-37.0) g/dL RDW (11.5-15.5) % Plt Count (150-450) k/uL MPV Neutrophils % % Lymphocytes % % Monocytes % % Eosinophils % % Basophils % % Neutrophils # (1.3-7.7) k/uL Lymphocytes # (1.0-4.8) k/uL Monocytes # (0-1.0) k/uL Eosinophils # (0-0.7) k/uL Basophils # (0-0.2) k/uL Sodium (137-145) mmol/L Potassium (3.5-5.1) mmol/L Chloride (98-107) mmol/L Carbon Dioxide (22-30) mmol/L Anion Gap mmol/L BUN (7-17) mg/dL Creatinine (0.52-1.04) mg/dL Est GFR (CKD-EPI)AfAm (>60 ml/min/1.73 sqM) Est GFR (CKD-EPI)NonAf (>60 ml/min/1.73 sqM) Glucose (74-99) mg/dL POC Glucose (mg/dL) 323 H (70-110) mg/dL POC Glu Water Quality Control Engineer ID [facility] Plasma Lactic Acid Travis (0.7-2.0) mmol/L Calcium (8.4-10.2) mg/dL Total Bilirubin (0.2-1.3) mg/dL AST (14-36) U/L ALT (4-34) U/L Alkaline Phosphatase (38-126) U/L Total Protein (6.3-8.2) g/dL Albumin (3.5-5.0) g/dL Urine Color Light Yellow Urine Appearance Clear (Clear) Urine pH 6.5 (5.0-8.0) Ur Specific Monroe 1.017 (1.001-1.035) Urine Protein 3+ H (Negative) Urine Glucose (UA) 4+ H (Negative) Urine Ketones Negative (Negative) Urine Blood Negative (Negative) Urine Nitrite Negative (Negative) Urine Bilirubin Negative (Negative) Urine Urobilinogen <2.0 (<2.0) mg/dL Ur Leukocyte Esterase Negative (Negative) Urine RBC 3 (0-5) /hpf Urine WBC 1 (0-5) /hpf Ur Squamous Epith Cells 2 (0-4) /hpf Hyaline Casts 17 H (0-2) /lpf Urine Mucus Rare H (None) /hpf Acetone, Qual Negative (Negative) Disposition Clinical Impression: Hyperkalemia Disposition: ADMITTED IP TO THIS HOSP Referrals: Dell Pike MD [Primary Care Provider] - 1-2 days Time of Disposition: 15:33
[2024-06-19] MEDS: KETOROLAC 15 MG/ML 1 ML VIAL IVP STA ×2 (13:10→14:56)
[2024-06-19] MEDS: ONDANSETRON 4 MG/2 ML VIAL IVP STA (13:11)
[2024-06-19] MEDS: SODIUM CHLORIDE 0.9% 500 ML 500 ML IV STA ×2 (13:11→14:57)
[2024-06-19 13:28] LABS: ALT 67 U/L (4-34); AST 46 U/L (14-36); African American GFR (CKD) 74 (>60 ml/min/1.73 sqM); Alkaline Phosphatase 126 U/L (38-126); Anion Gap 3 mmol/L; Blood Urea Nitrogen 56 mg/dL (7-17); Calcium 9.3 mg/dL (8.4-10.2); Carbon Dioxide 35 mmol/L (22-30); Chloride 96 mmol/L (98-107); Glucose 345 mg/dL (74-99); Non-African American GFR(CKD) 64 (>60 ml/min/1.73 sqM); Sodium 134 mmol/L (137-145); Total Bilirubin 0.2 mg/dL (0.2-1.3)
[2024-06-19 13:41] LABS: Potassium 6.2 mmol/L (3.5-5.1)
[2024-06-19 13:49] LABS: Basophils # (A) 0.1 k/uL (0-0.2); Basophils % (A) 1 %; Eosinophils # (A) 0.1 k/uL (0-0.7); Eosinophils % (A) 1 %; HCT 42.4 % (34.0-46.0); Lymphocytes % (A) 26 %; MCH 29.6 pg (25.0-35.0); MCHC 31.8 g/dL (31.0-37.0); Mean Platelet Volume 7.7; Monocytes # (A) 0.3 k/uL (0-1.0); Monocytes % (A) 4 %; Neutrophils % (A) 66 %; Platelet Count 514 k/uL (150-450); RBC 4.56 m/uL (3.80-5.40); RDW 14.4 % (11.5-15.5); WBC 7.6 k/uL (3.8-10.6)
[2024-06-19 14:02] LABS: HGB 13.5 gm/dL (11.4-16.0)
[2024-06-19 14:56] LABS: Glucose,Whole Blood 323 mg/dL (70-110)
[2024-06-19] MEDS: CALCIUM GLUCONATE IN NACL 1 GM in SALINE 1 100ML.BAG IVPB ONE (14:57)
[2024-06-19] MEDS: INSULIN REGULAR 100 UNIT/ML VIAL (IV) IV ONE (14:59)
[2024-06-19 15:07] LABS: Appearance,Urine Clear (Clear); Bilirubin,Urine Negative (Negative); Blood,Urine Negative (Negative); Color,Urine Light Yellow; Glucose,Urine (UA) 4+ (Negative); Hyaline Casts,Urine 17 /lpf (0-2); Ketones,Urine Negative (Negative); Leukocyte Esterase,Urine Negative (Negative); Mucus,Urine Rare /hpf; Nitrite,Urine Negative (Negative); PH, Urine 6.5 (5.0-8.0); Protein,Urine 3+ (Negative); RBC,Urine 3 /hpf (0-5); Specific Gravity,Urine 1.017 (1.001-1.035); Squamous Epithelial Cell,Urine 2 /hpf (0-4); Urobilinogen,Urine <2.0 mg/dL (<2.0); WBC,Urine 1 /hpf (0-5)
[2024-06-19] MEDS ORDERED: ACETAMINOPHEN TAB 325 MG TAB PO PRN (15:25)
[2024-06-19] MEDS ORDERED: NALOXONE 0.4 MG/ML 1 ML VIAL IV PRN (15:25)
[2024-06-19 15:53] LABS: VBG PH 7.39 (7.31-7.41)
[2024-06-19] MEDS ORDERED: ARTIFICIAL TEARS-HYPROMELLOSE DROPS 15 ML BTL BOTH EYES PRN (16:28)
[2024-06-19] MEDS ORDERED: IPRATROPIUM-ALBUTEROL 3 ML NEB INHALATION PRN (16:28)
[2024-06-19] MEDS: HYDROmorphone 1 MG/ML 1 ML SYRINGE IVP PRN (17:20)
[2024-06-19] MEDS: methocarbamoL 500 MG TAB PO SCH (17:22)
[2024-06-19] MEDS: SODIUM CHLORIDE 0.9% 1,000 ML IV SCH (17:22)
[2024-06-19] MEDS: METOCLOPRAMIDE 10 MG TAB PO SCH (17:23)
[2024-06-19] MEDS: CHOLESTYRAMINE (WITH SUGAR) 4 GM PACKET PO SCH (17:23)
[2024-06-19] MEDS: SCOPOLAMINE 1 MG/72 HR PATCH TRANSDERM SCH (17:27)
[2024-06-19] MEDS: CEFDINIR 300 MG CAP PO SCH (17:29)
[2024-06-19] MEDS: METOPROLOL TARTRATE 50 MG TAB PO SCH (20:49)
[2024-06-19] MEDS: MIRTAZAPINE 15 MG TAB PO SCH (20:49)
[2024-06-19] MEDS: FAMOTIDINE 20 MG TAB PO SCH (20:49)
[2024-06-19] MEDS: ALPRAZolam 0.25 MG TAB PO SCH (20:49)
[2024-06-19] MEDS: ONDANSETRON 4 MG TAB PO SCH (20:50)
[2024-06-19 21:58] LABS: Glucose,Whole Blood 128 mg/dL (70-110)
[2024-06-19] MEDS: HYDROcodone/APAP 10-325MG 1 EACH TAB PO SCH (22:12)
--- NOTE | 2024-06-19 22:50 | HP ---
HISTORY AND PHYSICAL HISTORY OF PRESENT ILLNESS: A 54-year-old female with uncontrolled diabetes mellitus, gastroparesis, presents for PEG tube insertion. Feeding tube fell out this morning after she caught on something walking. Does report nausea, vomiting, abdominal pain for a week. Sugars are a little elevated in the 300s. MEDICINES: 1. Xanax 0.25 b.i.d. 2. Lipitor 20 daily. 3. Remeron 30 at night. 4. Folic acid 1 mg daily. 5. Ferrous sulfate 325 daily. 6. Lantus 10 units daily. 7. Zofran 4 mg b.i.d. 8. Robaxin 250 q.i.d. 9. Scopolamine patch every 24 hours. 10.Mobile 10 t.i.d. 11.Omeprazole 40 daily. 12.Cefdinir 300 q.12. 13.Metoprolol 50 b.i.d. ALLERGIES: Fentanyl. REVIEW OF SYSTEMS: A 14-point review of systems negative except for mentioned above. Longstanding history of gastroparesis with multiple admissions for progressive vomiting. She sees Dr. Cecy garcia in [place], Bariatric GI, Gastric Pump Surgeon. She is supposed to go down there for multiple appointments, she has not went. FAMILY HISTORY: She is adopted. Family history is unsure. PHYSICAL EXAMINATION: GENERAL: Thin, cachectic. HEENT: Head normocephalic, atraumatic. Pupils equal, round, reactive. NEUROLOGIC: Alert and oriented x3. PSYCH: Anxious, nervous. INTEGUMENT: Dry skin turgor. Dry mucous membranes. ABDOMEN: Diffuse tenderness. VITAL SIGNS: Pulse is 118 to 59, temp 98.1, blood pressure is 132 to 150 over 81 to 90, O2 of 96% to 100%, respiratory rate 18 to 20. EKG, sinus rhythm. Sodium 134, potassium 6.2, BUN is 56, creatinine 1.01, hemoglobin 13.5, white count 7.6. Sugars 345. Hypokalemia, dehydration, gastroparesis, esophageal dysmobility. Feeding tube will have to be replaced with Dr. Martinez consult. Rehydrate her. Accu-Chek protocol. Feedings per PEG tube once is replaced. Please see further orders. MMODL / IJN: [id number] /
[2024-06-20] MEDS: SODIUM CHLORIDE 0.9% 1,000 ML IV SCH
[2024-06-20 08:16] LABS: Glucose,Whole Blood 96 mg/dL (70-110)
[2024-06-20] MEDS: amLODIPine 5 MG TAB PO SCH (08:42)
[2024-06-20] MEDS: FERROUS SULFATE 325 MG TAB PO SCH (08:42)
[2024-06-20] MEDS: ATORVASTATIN 20 MG TAB PO SCH (08:42)
[2024-06-20] MEDS: FOLIC ACID 1 MG TAB PO SCH (08:43)
[2024-06-20] MEDS: INSULIN DETEMIR (LEVEMIR) 100 UNIT/ML SYR SQ SCH (09:10)
[2024-06-20 09:50] LABS: Basophils # (A) 0.07 X 10*3/uL (0.00-0.10); Basophils % (A) 0.8 %; Eosinophils # (A) 0.19 X 10*3/uL (0.04-0.35); Eosinophils % (A) 2.3 %; HCT 33.6 % (37.2-46.3); HGB 10.3 g/dL (12.0-15.0); Lymphocytes # (A) 3.73 X 10*3/uL (0.90-5.00); Lymphocytes % (A) 44.7 %; MCH 29.1 pg (27.0-32.0); MCHC 30.7 g/dL (32.0-37.0); MCV 94.9 FL (80.0-97.0); Mean Platelet Volume 9.8 FL (9.5-12.2); Monocytes # (A) 0.46 X 10*3/uL (0.20-1.00); Monocytes % (A) 5.5 %; NRBC Per 100 WBC 0 X 10*3/uL (0.00-0.01); Neutrophils # (A) 3.87 X 10*3/uL (1.80-7.70); Neutrophils % (A) 46.5 %; Platelet Count 386 X 10*3/uL (140-440); RBC 3.54 X 10*6/uL (4.10-5.20); RDW 13.3 % (11.5-14.5); WBC 8.34 X 10*3/uL (4.50-10.00)
[2024-06-20 10:11] LABS: ALT 39 U/L (8-44); AST 23 U/L (13-35); Albumin 2.9 g/dL (3.8-4.9); Albumin/Globulin Ratio 1.32 Ratio (1.60-3.17); Alkaline Phosphatase 92 U/L (41-126); Blood Urea Nitrogen 44.5 mg/dL (9.0-27.0); Calcium 8.8 mg/dL (8.7-10.3); Carbon Dioxide 22.4 mmol/L (21.6-31.8); Chloride 107 mmol/L (96-109); Globulin 2.2 g/dL (1.6-3.3); Glucose 98 mg/dL (70-110); Potassium 5.5 mmol/L (3.5-5.5); Sodium 139 mmol/L (135-145); Total Bilirubin <0.2 mg/dL (0.3-1.2); Total Protein 5.1 g/dL (6.2-8.2)
[2024-06-20 12:20] LABS: Glucose,Whole Blood 176 mg/dL (70-110)
--- NOTE | 2024-06-20 12:39 | P.CON ---
Consult Note - . Consult date: 06/20/24 Assessment/Plan:: 54-year-old female with history of uncontrolled diabetes and gastroparesis presents for dislodged jejunostomy. She states she had it placed about [address] Garzon. States her feeding tube fell out this morning. Also reports nausea, vomiting, and diffuse abdominal pain for 1 week. Her abdominal pain is better today and she is resting comfortably. Review of Systems ROS Statement: Those systems with pertinent positive or pertinent negative responses have been documented in the HPI. ROS Other: All systems not noted in ROS Statement are negative. Past Medical History Past Medical History: Diabetes Mellitus, Hypertension, Musculoskeletal Disorder Additional Past Medical History / Comment(s): FREQ NAUSEA, PAINFUL RT SHOULDER "FROZEN SHOULDER", NEUROPATHY PORFIRIO LEGS and hands, Blood pressures can run high History of Any Multi-Drug Resistant Organisms: ESBL, MRSA, VRE Date of last positivie culture/infection: 06/01/24-ESBL; 10/06/22-VRE; 05/19/23- MRSA MDRO Source:: ESBL-urine; VRE-urine; MRSA-abdomen Past Surgical History: Cholecystectomy, Orthopedic Surgery, Tubal Ligation Additional Past Surgical History / Comment(s): rt shoulder, J tube placement Past Anesthesia/Blood Transfusion Reactions: No Reported Reaction Additional Past Anesthesia/Blood Transfusion Reaction / Comment(s): UNK FAMILY HX Past Psychological History: Anxiety Smoking Status: Current every day smoker Past Alcohol Use History: None Reported Additional Past Alcohol Use History / Comment(s): STARTED SMOKING 1987, smokes about 6 cigs/day Past Drug Use History: None Reported Additional Drug Use History / Comment(s): Patient denies using marijuana. - Past Family History Father History Unknown: Yes Additional Family Medical History / Comment(s): unknown-adopted Mother History Unknown: Yes Additional Family Medical History / Comment(s): unknown- adopted General Exam General: Well-appearing, nontoxic, no acute distress. Head: Normocephalic, atraumatic Eyes: PERRLA, EOMI ENT: Airway patent Chest: Nonlabored breathing Skin: No visual rash, normal skin tone Neuro: Alert and oriented 3 Musculoskeletal: No gross abnormalities 54 year old female with dislodged jejunostomy. -Attempted to insert jejunostomy tube at bedside however was unsuccessful -Patient will likely need operative intervention and new J tube with surgeon Dr Garzon on Saturday -Pureed Diet -Nausea and Pain Control Nito Martinez [facility] [phone]
--- NOTE | 2024-06-20 13:56 | PN ---
PROGRESS NOTE A 54-year-old white female admitted with DKA, altered mental status. Hemoglobin is 10.3. Sugars are mid 96 to 128. A1c is 9.5. PHYSICAL EXAMINATION: CARDIOVASCULAR: S1, S2. LUNGS: Transmitted upper sounds. GI: Soft. She is going to get surgery to put a PEG tube in repeat her tube feedings once she will get a PEG tube replaced and continue current treatment for gastroparesis, nausea, vomiting, dehydration. Continue home medications wait for a PEG tube placement. Then, she possibly can go home in the next 24 to 48 hours. MMODL / IJN: [id number] /
[2024-06-20 14:16] VITALS: BMI 16.1
[2024-06-20 17:08] LABS: Glucose,Whole Blood 91 mg/dL (70-110)
[2024-06-20] MEDS: KETOROLAC 15 MG/ML 1 ML VIAL IVP PRN (17:13)
[2024-06-20] MEDS: HYDROmorphone 0.5 MG/0.5 ML SYRINGE IVP PRN (18:09)
[2024-06-20 23:05] LABS: Glucose,Whole Blood 96 mg/dL (70-110)
[2024-06-21] MEDS: ONDANSETRON 4 MG/2 ML VIAL IVP PRN (06:08)
[2024-06-21 07:46] LABS: Glucose,Whole Blood 136 mg/dL (70-110)
[2024-06-21 12:09] LABS: Glucose,Whole Blood 119 mg/dL (70-110)
[2024-06-21 17:11] LABS: Glucose,Whole Blood 60 mg/dL (70-110)
[2024-06-21 17:40] LABS: Glucose,Whole Blood 122 mg/dL (70-110)
[2024-06-21 20:11] LABS: Glucose,Whole Blood 92 mg/dL (70-110)
--- NOTE | 2024-06-22 00:52 | P.PN ---
Progress Note - Text Progress Note Date: 06/21/24 No acute events overnight. Patient denies abdominal pain. Denies fevers and chills. Tolerating Diet General Exam General: Well-appearing, nontoxic, no acute distress. Head: Normocephalic, atraumatic Eyes: PERRLA, EOMI ENT: Airway patent Chest: Nonlabored breathing Skin: No visual rash, normal skin tone Neuro: Alert and oriented 3 Musculoskeletal: No gross abnormalities 54 year old female with dislodged jejunostomy. -Attempted to insert jejunostomy tube at bedside however was unsuccessful -Patient will likely need operative intervention and new J tube with surgeon Dr Garzon on Saturday -Regular , NPO/midnight -Nausea and Pain Control Nito Martinez DO [facility] [phone]
[2024-06-22 05:08] LABS: ALT 36 U/L (4-34); AST 28 U/L (14-36); African American GFR (CKD) >90 (>60 ml/min/1.73 sqM); Albumin 2.5 g/dL (3.5-5.0); Alkaline Phosphatase 82 U/L (38-126); Anion Gap 9 mmol/L; Blood Urea Nitrogen 25 mg/dL (7-17); Calcium 8.2 mg/dL (8.4-10.2); Carbon Dioxide 18 mmol/L (22-30); Chloride 111 mmol/L (98-107); Globulin 2.5 g/dL; Glucose 72 mg/dL (74-99); Magnesium 1.9 mg/dL (1.6-2.3); Non-African American GFR(CKD) 82 (>60 ml/min/1.73 sqM); Potassium 4.3 mmol/L (3.5-5.1); Sodium 138 mmol/L (137-145); Total Bilirubin 0.2 mg/dL (0.2-1.3)
--- NOTE | 2024-06-22 05:14 | PN ---
PROGRESS NOTE A 54-year-old white female, who had nausea and vomiting today and is not feeling well . OBJECTIVE: CARDIOVASCULAR: S1, S2. LUNGS: Clear. PSYCHIATRIC: Fair mood and affect. NEUROLOGIC: Cranial nerves intact Sugar is 92 to mid 100s. Prognosis guarded. Ambulate as tolerated. Gastroparesis, dehydration, acute nausea, vomiting, and malnutrition, so she will get a PEG tube tomorrow. Wait for surgery. Check electrolytes. Prognosis is guarded. MMODL / IJN: [id number] /
[2024-06-22 06:46] LABS: Glucose,Whole Blood 84 mg/dL (70-110)
[2024-06-22 07:03] LABS: Basophils # (A) 0.1 k/uL (0-0.2); Basophils % (A) 1 %; Eosinophils # (A) 0.2 k/uL (0-0.7); Eosinophils % (A) 3 %; HCT 34.6 % (34.0-46.0); HGB 10.8 gm/dL (11.4-16.0); Hypochromasia Slight; Lymphocytes # (A) 2.1 k/uL (1.0-4.8); Lymphocytes % (A) 37 %; MCH 29.3 pg (25.0-35.0); MCHC 31.3 g/dL (31.0-37.0); MCV 93.7 fL (80.0-100.0); Monocytes # (A) 0.3 k/uL (0-1.0); Monocytes % (A) 5 %; Neutrophils # (A) 3.1 k/uL (1.3-7.7); Neutrophils % (A) 54 %; Platelet Count 361 k/uL (150-450); RBC 3.69 m/uL (3.80-5.40); RDW 13.9 % (11.5-15.5); WBC 5.8 k/uL (3.8-10.6)
[2024-06-22 11:19] LABS: Glucose,Whole Blood 127 mg/dL (70-110)
--- NOTE | 2024-06-22 15:16 | P.PN ---
Subjective Progress Note Date: 06/22/24 CHIEF COMPLAINT: Gastrojejunostomy tube malfunction HISTORY OF PRESENT ILLNESS: The patient is a 54-year-old female with diabetic gastroparesis and history of gastrojejunostomy feeding tube placement almost 1 year ago who presents after traumatic dislodgment of her tubing. Patient does tolerate some food. Patient had been admitted due to accidental removal of her gastrojejunostomy feeding tube. Has baseline chronic abdominal pain due to gastroparesis. ROS: No fevers or chills. No new chest pain. No productive sputum. Underweight, BMI 16.2 PHYSICAL EXAM: VITAL SIGNS: Reviewed CONSTITUTIONAL: Well developed and in no acute distress. EYES: Conjuctivae without sclera icterus. Extraocular movements grossly intact. HEAD, EARS, NOSE, THROAT: Moist buccal mucosa. Head is atraumatic, nor mocephalic. Hears conversational speech. No nasal drainage. RESPIRATORY: Non-labored respirations and equal bilateral excursions. CARDIOVASCULAR: Palpable 2+ radial pulses. ABDOMEN: No peritonitis. MUSCULOSKELETAL: No gross deformity of the lower extremities noted. No clubbing. No cyanosis. SKIN: Good skin turgor. Well perfused. NEUROLOGIC: Cranial nerves II through XII grossly intact. No focal or lateralizing signs. PSYCH: Appropriate affect. Alert and oriented to person, place and time. CLINICAL LABS: Reviewed. WBC within normal limits. ASSESSMENT: 1. Gastrojejunostomy feeding tube malfunction with dislodgment 2. Diabetic gastroparesis with diabetic gastropathy 3. Underweight, BMI 16.2 PLAN: 1. Gastrojejunostomy feeding tube is not available for placement via inter ventional radiology or endoscopic technique at this time. May be placed as outpatient and discussed with the patient. 2. As she does tolerate some oral, may start diet. 3. Stable for discharge from surgical standpoint once patient can tolerate diet with outpatient follow-up 1 week for placement of her endoscopic gastrojejunostomy feeding tube. Objective - Vital Signs Vital signs: Vital Signs Temp 97.8 F 06/22/24 13:55 Pulse 86 06/22/24 13:55 Resp 18 06/22/24 13:55 BP 147/78 06/22/24 13:55 Pulse Ox 97 06/22/24 13:55 FiO2 Intake & Output 06/21/24 06/22/24 06/22/24 18:59 06:59 18:59 Intake Total 1800 Balance 1800 Weight 36.287 kg Intake: Oral 1800 Other: Voiding Method Toilet Toilet # Voids 4 1 # Bowel Movements 1 0 - Labs CBC & Chem 7: 06/22/24 05:55 06/22/24 03:59 Labs: Abnormal Lab Results - Last 24 Hours (Table) 06/21/24 06/21/24 06/22/24 Range/Units 17:10 17:39 03:59 RBC (3.80-5.40) m/uL Hgb (11.4-16.0) gm/dL Chloride 111 H (98-107) mmol/L Carbon Dioxide 18 L (22-30) mmol/L BUN 25 H (7-17) mg/dL Glucose 72 L (74-99) mg/dL POC Glucose (mg/dL) 60 L 122 H (70-110) mg/dL Calcium 8.2 L (8.4-10.2) mg/dL ALT 36 H (4-34) U/L Total Protein 5.0 L (6.3-8.2) g/dL Albumin 2.5 L (3.5-5.0) g/dL 06/22/24 06/22/24 Range/Units 05:55 11:17 RBC 3.69 L (3.80-5.40) m/uL Hgb 10.8 L (11.4-16.0) gm/dL Chloride (98-107) mmol/L Carbon Dioxide (22-30) mmol/L BUN (7-17) mg/dL Glucose (74-99) mg/dL POC Glucose (mg/dL) 127 H (70-110) mg/dL Calcium (8.4-10.2) mg/dL ALT (4-34) U/L Total Protein (6.3-8.2) g/dL Albumin (3.5-5.0) g/dL
[2024-06-22 16:02] LABS: Glucose,Whole Blood 47 mg/dL (70-110)
[2024-06-22 16:22] LABS: Glucose,Whole Blood 81 mg/dL (70-110)
[2024-06-22 20:51] LABS: Glucose,Whole Blood 86 mg/dL (70-110)
--- NOTE | 2024-06-23 00:47 | PN ---
PROGRESS NOTE SUBJECTIVE: A 54-year-old white female, gastroparesis, acute on chronic abdominal pain, nausea, vomiting. We will be hoping to get a PEG tube placed tomorrow. If she does not get a PEG tube, she will have to do it outpatient and she will be discharged home. Her sugars have been running low. We are going to hold her insulin and monitor glucose due to hypoglycemia overnight. OBJECTIVE: CARDIOVASCULAR: S1, S2. LUNGS: Transmitted upper sounds. GI: Soft. HEMATOLOGY: Negative Homans. PSYCH: Fair mood and affect. ASSESSMENT: Acute hypoxemic respiratory failure, chronic obstructive pulmonary disease, diabetic gastroparesis, progressive nausea, vomiting, esophageal dysmobility. Replace electrolytes. Possibly put a PEG tube, if not possibly discharge home in the next 24 to 48 hours to go home. Prognosis guarded. MMODL / IJN: [id number] /
[2024-06-23 06:27] LABS: Glucose,Whole Blood 52 mg/dL (70-110)
[2024-06-23 06:46] LABS: Glucose,Whole Blood 60 mg/dL (70-110)
[2024-06-23 07:00] LABS: Glucose,Whole Blood 61 mg/dL (70-110)
[2024-06-23 07:00] LABS: Glucose,Whole Blood 63 mg/dL (70-110)
[2024-06-23] MEDS ORDERED: INSULIN DETEMIR (LEVEMIR) 100 UNIT/ML SYR SQ SCH ×2 (07:00)
[2024-06-23 07:57] LABS: Glucose,Whole Blood 115 mg/dL (70-110)
[2024-06-23 08:30] LABS: Basophils # (A) 0.05 X 10*3/uL (0.00-0.10); Basophils % (A) 0.5 %; Eosinophils # (A) 0.25 X 10*3/uL (0.04-0.35); Eosinophils % (A) 2.7 %; HCT 34.6 % (37.2-46.3); HGB 10.9 g/dL (12.0-15.0); Lymphocytes # (A) 2.84 X 10*3/uL (0.90-5.00); Lymphocytes % (A) 30.8 %; MCHC 31.5 g/dL (32.0-37.0); MCV 95.3 FL (80.0-97.0); Mean Platelet Volume 9.7 FL (9.5-12.2); Monocytes # (A) 0.44 X 10*3/uL (0.20-1.00); Monocytes % (A) 4.8 %; NRBC Per 100 WBC 0 X 10*3/uL (0.00-0.01); Neutrophils % (A) 60.9 %; Platelet Count 353 X 10*3/uL (140-440); RBC 3.63 X 10*6/uL (4.10-5.20); WBC 9.21 X 10*3/uL (4.50-10.00)
[2024-06-23 09:15] LABS: BUN/Creat Ratio 19.88 Ratio (12.00-20.00); Blood Urea Nitrogen 15.9 mg/dL (9.0-27.0); Glucose 69 mg/dL (70-110)
[2024-06-23 09:16] LABS: ALT 33 U/L (8-44); AST 25 U/L (13-35); Albumin 2.7 g/dL (3.8-4.9); Albumin/Globulin Ratio 1.29 Ratio (1.60-3.17); Alkaline Phosphatase 88 U/L (41-126); Calcium 8.2 mg/dL (8.7-10.3); Carbon Dioxide 19.7 mmol/L (21.6-31.8); Chloride 115 mmol/L (96-109); Globulin 2.1 g/dL (1.6-3.3); Potassium 4.5 mmol/L (3.5-5.5); Sodium 143 mmol/L (135-145); Total Bilirubin <0.2 mg/dL (0.3-1.2); Total Protein 4.8 g/dL (6.2-8.2)
[2024-06-23 10:50] LABS: Glucose,Whole Blood 186 mg/dL (70-110)
[2024-06-23 16:34] LABS: Glucose,Whole Blood 130 mg/dL (70-110)
[2024-06-23 21:06] LABS: Glucose,Whole Blood 218 mg/dL (70-110)
[2024-06-24 06:21] LABS: Glucose,Whole Blood 187 mg/dL (70-110)
[2024-06-24 07:42] VITALS: BP 171/101; PULSE 83; RESP 18; TEMP 97.5
[2024-06-24 11:24] LABS: Glucose,Whole Blood 238 mg/dL (70-110)
--- NOTE | 2024-06-24 13:09 | P.PN ---
Subjective Progress Note Date: 06/23/24 CHIEF COMPLAINT: Gastrojejunostomy tube malfunction HISTORY OF PRESENT ILLNESS: The patient is a 54-year-old female with diabetic gastroparesis and history of gastrojejunostomy feeding tube placement. She feels well. She is able to tolerate some diet. No increased abdominal pain. Patient also reports that her nausea had improved after discontinuing her Restless leg syndrome medication which is known to propagate severe nausea. ROS: No fevers or chills. No new chest pain. No productive sputum. Underweight, BMI 16.2 PHYSICAL EXAM: VITAL SIGNS: Reviewed CONSTITUTIONAL: Well developed and in no acute distress. EYES: Conjuctivae without sclera icterus. Extraocular movements grossly intact. HEAD, EARS, NOSE, THROAT: Moist buccal mucosa. Head is atraumatic, normocephalic. Hears conversational speech. No nasal drainage. RESPIRATORY: Non-labored respirations and equal bilateral excursions. CARDIOVASCULAR: Palpable 2+ radial pulses. ABDOMEN: No peritonitis. Scaphoid. MUSCULOSKELETAL: No gross deformity of the lower extremities noted. No clubbing. No cyanosis. SKIN: Good skin turgor. Well perfused. NEUROLOGIC: Cranial nerves II through XII grossly intact. No focal or l ateralizing signs. PSYCH: Appropriate affect. Alert and oriented to person, place and time. CLINICAL LABS: Reviewed. WBC within normal limits. ASSESSMENT: 1. Gastrojejunostomy feeding tube malfunction with traumatic removal 2. Diabetic gastroparesis with diabetic gastropathy 3. Underweight, BMI 16.2 PLAN: 1. Clinically she is tolerating diet and may be discharged with outpatient foll ow-up and placement for gastrostomy tube placement Objective - Vital Signs Vital signs: Vital Signs Temp 97.5 F L 06/24/24 07:42 Pulse 83 06/24/24 08:00 Resp 18 06/24/24 08:00 BP 171/101 06/24/24 07:42 Pulse Ox 100 06/24/24 07:42 FiO2 Intake & Output 06/23/24 06/24/24 06/24/24 18:59 06:59 18:59 Intake Total 2520 Balance 2520 Weight 36.287 kg Intake: Oral 2520 Other: Voiding Method Toilet # Voids 3 6 # Bowel Movements 0 0 - Labs CBC & Chem 7: 06/23/24 04:42 06/23/24 04:42 Labs: Abnormal Lab Results - Last 24 Hours (Table) 06/23/24 06/23/24 06/24/24 Range/Units 16:29 21:05 06:19 POC Glucose (mg/dL) 130 H 218 H 187 H (70-110) mg/dL 06/24/24 Range/Units 11:23 POC Glucose (mg/dL) 238 H (70-110) mg/dL
--- NOTE | 2024-06-24 19:57 | PN ---
PROGRESS NOTE SUBJECTIVE: She was kept overnight due to hypoglycemia. Sugars are now in the 100s to 200s. She will be discharged home. Wait for a week to get another PEG tube placed in a week with Dr. Garzon who is back from vacation. Continue current treatments. Tolerate oral diet as tolerated until PEG tube was placed next week. Sugars have been stable overnight in the 100s to 200s. Prognosis guarded. OBJECTIVE: CARDIOVASCULAR: S1, S2. LUNGS: Clear. NEUROLOGIC: Alert and oriented x3. Sugars have been good in the 100s to 200s. Prognosis guarded. MMODL / IJN: [id number] /
== END 2024-06-24 14:14 | disposition home health service (06) | DRG 393 ==
LOC: EC 10:25 → 5NMEDONC 14:36 → 4SSUR 06-21 23:12 → OBSVTOIN 06-22 07:51
PROVIDERS: ADMIT Family Medicine; ATTEND Family Medicine
DX: K94.23 Gastrostomy malfunction (principal); E11.10 Type 2 diabetes mellitus with ketoacidosis without coma; J96.01 Acute respiratory failure with hypoxia; Z68.1 Body mass index [BMI] 19.9 or less, adult; E46 Unspecified protein-calorie malnutrition; E11.43 Type 2 diabetes mellitus with diabetic autonomic (poly)neuropathy; E87.5 Hyperkalemia; F17.200 Nicotine dependence, unspecified, uncomplicated; G25.81 Restless legs syndrome; G89.29 Other chronic pain; I10 Essential (primary) hypertension; K31.9 Disease of stomach and duodenum, unspecified; J44.9 Chronic obstructive pulmonary disease, unspecified; K31.84 Gastroparesis; Z79.4 Long term (current) use of insulin; Z88.5 Allergy status to narcotic agent
CPT/HCPCS: 36415; 80053; 81001; 82009; 82533; 82803; 83036; 83605; 83735; 84132; 85025; 93005; 99284

== ENCOUNTER 2024-07-31 20:15 | Inpatient (IN) | payer MEDICARE ==
[2024-07-31] MEDS: SODIUM CHLORIDE 0.9% 1,000 ML IV STA (20:59)
[2024-07-31] MEDS: diphenhydrAMINE 50 MG/ML 1 ML VIAL IVP STA (21:15)
[2024-07-31] MEDS: METOCLOPRAMIDE 5 MG/ML 2 ML VIAL IVP STA (21:15)
[2024-07-31 21:45] LABS: Basophils # (A) 0.1 k/uL (0-0.2); Basophils % (A) 1 %; Eosinophils # (A) 0.1 k/uL (0-0.7); Eosinophils % (A) 0 %; HGB 11.7 gm/dL (11.4-16.0); Lymphocytes # (A) 1.3 k/uL (1.0-4.8); Lymphocytes % (A) 10 %; MCH 28.5 pg (25.0-35.0); MCHC 31.6 g/dL (31.0-37.0); Mean Platelet Volume 6.9; Monocytes # (A) 0.3 k/uL (0-1.0); Monocytes % (A) 2 %; Neutrophils # (A) 10.8 k/uL (1.3-7.7); Neutrophils % (A) 86 %; RBC 4.09 m/uL (3.80-5.40); WBC 12.6 k/uL (3.8-10.6)
[2024-07-31 21:55] LABS: ALT 78 U/L (4-34); African American GFR (CKD) 64 (>60 ml/min/1.73 sqM); Albumin 3.8 g/dL (3.5-5.0); Anion Gap 9 mmol/L; Blood Urea Nitrogen 54 mg/dL (7-17); Calcium 10.2 mg/dL (8.4-10.2); Carbon Dioxide 34 mmol/L (22-30); Chloride 98 mmol/L (98-107); Glucose 155 mg/dL (74-99); Lipase 65 U/L (23-300); Non-African American GFR(CKD) 56 (>60 ml/min/1.73 sqM); Sodium 141 mmol/L (137-145); Total Bilirubin 0.6 mg/dL (0.2-1.3); Total Protein 7.2 g/dL (6.3-8.2)
[2024-07-31 21:57] LABS: Potassium 4.7 mmol/L (3.5-5.1)
[2024-07-31 21:58] LABS: AST 37 U/L (14-36); Alkaline Phosphatase 115 U/L (38-126)
[2024-07-31 22:13] LABS: MCV 90.4 fL (80.0-100.0); Platelet Count 572 k/uL (150-450)
--- NOTE | 2024-07-31 23:08 | ED ---
General Adult HPI - General Chief complaint: Nausea/Vomiting/Diarrhea Stated complaint: Abd pain Time Seen by Provider: 07/31/24 20:20 Source: patient, EMS Mode of arrival: EMS Limitations: no limitations - History of Present Illness Initial comments: 54-year-old female well-known to the emergency department presents with nausea and vomiting. Patient has a history of diabetic gastroparesis. Reports that she has not eaten or drank anything due to her nausea and vomiting which has caused her to have significant weakness. EMS arrived on scene and the patient essentially collapsed into their arms. They did start an IV and gave her 4 mg of morphine and 4 mg of Zofran. Patient reports to no improvement in her symptoms. No fevers. No other alleviating, precipitating or modifying factors - Related Data Home Medications Medication Instructions Recorded Confirmed Atorvastatin [Lipitor] 20 mg PO DAILY 05/12/23 08/01/24 Insulin Lispro [humaLOG Kwikpen] See Protocol SQ ACHS 05/12/23 08/01/24 Mirtazapine [Remeron] 30 mg PO HS 05/12/23 08/01/24 Folic Acid 1 mg PO DAILY 06/15/23 08/01/24 Ferrous Sulfate [Iron (65 MG 325 mg PO DAILY 12/09/23 08/01/24 Elemental)] Insulin Glargine (Lantus) [Lantus 10 unit SQ DAILY 12/09/23 08/01/24 Vial] Ondansetron [Zofran] 4 mg PO QID 02/21/24 08/01/24 methocarbamoL [Robaxin] 250 mg PO QID 02/21/24 08/01/24 Artificial Tears-Hypromellose 1 drop BOTH EYES QID PRN 03/19/24 08/01/24 [Artificial Tear Drops] Scopolamine [Scopolamine 1 MG/72 1 patch TRANSDERM Q72H PRN 03/19/24 08/01/24 HR patch] HYDROcodone/APAP 10-325MG [[place] 1 tab PO TID 05/10/24 08/01/24 10-325] Metoprolol Tartrate [Lopressor] 50 mg PO BID 06/19/24 08/01/24 ALPRAZolam [Xanax] 0.5 mg PO BID 07/16/24 08/01/24 Previous Rx's Medication Instructions Recorded Metoclopramide [Reglan] 10 mg PO ACHS 30 Days #120 tab 05/15/23 amLODIPine [Norvasc] 5 mg PO DAILY 90 Days #90 tab 12/19/23 Famotidine [Pepcid] 20 mg PO BID 30 Days #60 tab 01/18/24 Cholestyramine (with Sugar) 4 gm PO BID@1000,1800 30 Days #30 05/20/24 [Questran Packet] packet Ipratropium-Albuterol Nebulize 3 ml INHALATION RT-TID PRN each 05/20/24 [Duoneb 0.5 mg-3 mg/3 ml Soln] lisinopriL [Zestril] 5 mg PO DAILY 30 Days #30 tab 05/20/24 Allergies Allergy/AdvReac Type Severity Reaction Status Date / Time fentanyl AdvReac "wobbly" Verified 08/01/24 08:40 Review of Systems ROS Statement: Those systems with pertinent positive or pertinent negative responses have been documented in the HPI. ROS Other: All systems not noted in ROS Statement are negative. Past Medical History Past Medical History: Diabetes Mellitus, Hypertension, Musculoskeletal Disorder Additional Past Medical History / Comment(s): FREQ NAUSEA, PAINFUL RT SHOULDER "FROZEN SHOULDER", NEUROPATHY PORFIRIO LEGS and hands, Blood pressures can run high History of Any Multi-Drug Resistant Organisms: ESBL, MRSA, VRE Date of last positivie culture/infection: 06/01/24-ESBL; 10/06/22-VRE; 05/19/23- MRSA MDRO Source:: ESBL-urine; VRE-urine; MRSA-abdomen Past Surgical History: Cholecystectomy, Orthopedic Surgery, Tubal Ligation Additional Past Surgical History / Comment(s): rt shoulder, J tube placement Past Anesthesia/Blood Transfusion Reactions: No Reported Reaction Additional Past Anesthesia/Blood Transfusion Reaction / Comment(s): UNK FAMILY HX Past Psychological History: Anxiety Smoking Status: Current every day smoker Past Alcohol Use History: None Reported Past Drug Use History: None Reported - Past Family History Father History Unknown: Yes Additional Family Medical History / Comment(s): unknown-adopted Mother History Unknown: Yes Additional Family Medical History / Comment(s): unknown- adopted General Exam Limitations: no limitations General appearance: alert, lethargic, cachectic (Renato stopped screaming) Head exam: Present: atraumatic, normocephalic, normal inspection Eye exam: Present: normal appearance, PERRL, EOMI. Absent: scleral icterus, conjunctival injection, periorbital swelling ENT exam: Present: normal exam, mucous membranes moist Respiratory exam: Present: normal lung sounds bilaterally ([place] stop scr eaming). Absent: respiratory distress, wheezes, rales, rhonchi, stridor Cardiovascular Exam: Present: normal rhythm, tachycardia GI/Abdominal exam: Present: soft Neurological exam: Present: alert Psychiatric exam: Present: normal affect, normal mood Skin exam: Present: warm, dry, intact, normal color. Absent: rash Course Vital Signs 07/31/24 07/31/24 08/01/24 20:17 22:47 00:36 Temperature 98.4 F Pulse Rate 114 H 112 H 105 H Respiratory 16 18 Rate Blood Pressure 86/56 92/54 135/91 O2 Sat by Pulse 98 98 96 Oximetry 08/01/24 08/01/24 08/01/24 04:00 04:31 06:00 Temperature Pulse Rate 111 H 105 H Respiratory 18 18 Rate Blood Pressure 162/107 173/99 O2 Sat by Pulse 95 96 Oximetry 08/01/24 08/01/24 07:49 08:41 Temperature 98.5 F Pulse Rate 118 H Respiratory 18 17 Rate Blood Pressure 117/107 O2 Sat by Pulse 98 Oximetry Medical Decision Making - Medical Decision Making Was pt. sent in by a medical professional or institution (, PA, SUPERVISOR FLESHING, urgent care, hospital, or senior living...) When possible be specific @ -No Did you speak to anyone other than the patient for history (EMS, parent, family, police, friend...)? What history was obtained from this source @ -Spoke with EMS for history Did you review nursing and triage notes (agree or disagree)? Why? @ -I reviewed and agree with nursing and triage notes Were old charts reviewed (outside hosp., previous admission, EMS record, old EKG, old radiological studies, urgent care reports/EKG's, senior living records)? Report findings @ -Reviewed discharge summary from July 22 Differential Diagnosis (chest pain, altered mental status, abdominal pain women, abdominal pain men, vaginal bleeding, weakness, fever, dyspnea, syncope, headache, dizziness, GI bleed, back pain, seizure, CVA, palpatations, mental health, musculoskeletal)? @ -Differential Abdominal Pain Women: Appendicitis, Cholecystitis, diverticulosis, ischemic bowel, pancreatitis, hepatitis, UTI, gastroenteritis, AAA, incarcerated hernia, bowel obstruction, constipation, inflammatory bowel, hepatitis, peptic ulcer disease, splenic infarction, perforated viscus, vulvitis, ovarian torsion, PID, kidney stone, placenta abruption, this is not meant to be an all-inclusive list EKG interpreted by me (3pts min.). @ -Not done X-rays interpreted by me (1pt min.). @ -None done CT interpreted by me (1pt min.). @ -None done U/S interpreted by me (1pt. min.). @ -None done What testing was considered but not performed or refused? (CT, X-rays, U/S, lab s)? Why? @ -None What meds were considered but not given or refused? Why? @ -None Did you discuss the management of the patient with other professionals (professionals i.e. , PA, SUPERVISOR [employer]ESHING, lab, RT, psych nurse, social secretary, outside sales manager, teacher, surveillance dual rate officer, director of casework department)? Give summary @ -Spoke with For admission Nick Was smoking cessation discussed for >3mins.? @ -No Was critical care preformed (if so, how long)? @ -No Were there social determinants of health that impacted care today? How? (Homelessness, low income, unemployed, alcoholism, drug addiction, transportation, low edu. Level, literacy, decrease access to med. care, group home, rehab)? @ -No Was there de-escalation of care discussed even if they declined (Discuss DNR or withdrawal of care, Hospice)? DNR status @ -No What co-morbidities impacted this encounter? (DM, HTN, Smoking, COPD, CAD, Cancer, CVA, ARF, Chemo, Hep., AIDS, mental health diagnosis, sleep apnea, morbid obesity)? @ -Diabetic gastroparesis Was patient admitted / discharged? Hospital course, mention meds given and route, prescriptions, significant lab abnormalities, going to OR and other pertinent info. @ -Upon arrival patient seen and evaluated in bed 16. Thorough history and physical exam was performed. Patient had been given morphine and Zofran by EMS. Continues to have nausea and vomiting and therefore she is given Reglan and Benadryl. Patient reevaluated and continues to have symptoms. She was given a dose of Dilaudid for pain control. Patient states she feels some relief. She cannot tolerate anything by mouth. I did speak with Dr. Romero for the admission Undiagnosed new problem with uncertain prognosis? @ -No Drug Therapy requiring intensive monitoring for toxicity (Heparin, Nitro, Insulin, Cardizem)? @ -No Were any procedures done? @ -No Diagnosis/symptom? @ -Intractable nausea and vomiting, sinus tachycardia, history of diabetic gastroparesis Acute, or Chronic, or Acute on Chronic? @ -Acute on chronic Uncomplicated (without systemic symptoms) or Complicated (systemic symptoms)? @ -Complicated Side effects of treatment? @ -No Exacerbation, Progression, or Severe Exacerbation? @ -Yes Poses a threat to life or bodily function? How? (Chest pain, [place], [place], pneumonia, PE, COPD, DKA, ARF, appy, cholecystitis, CVA, Diverticulitis, Homicidal, Suicidal, threat to staff... and all critical care pts) @ -No - Lab Data Result diagrams: 07/31/24 21:22 07/31/24 21:22 Lab Results 07/31/24 07/31/24 Range/Units 21:22 21:22 WBC 12.6 H (3.8-10.6) k/uL RBC 4.09 (3.80-5.40) m/uL Hgb 11.7 (11.4-16.0) gm/dL Hct 37.0 (34.0-46.0) % MCV 90.4 D (80.0-100.0) fL MCH 28.5 (25.0-35.0) pg MCHC 31.6 (31.0-37.0) g/dL RDW 14.0 (11.5-15.5) % Plt Count 572 H D (150-450) k/uL MPV 6.9 Neutrophils % 86 % Lymphocytes % 10 % Monocytes % 2 % Eosinophils % 0 % Basophils % 1 % Neutrophils # 10.8 H (1.3-7.7) k/uL Lymphocytes # 1.3 (1.0-4.8) k/uL Monocytes # 0.3 (0-1.0) k/uL Eosinophils # 0.1 (0-0.7) k/uL Basophils # 0.1 (0-0.2) k/uL Sodium 141 (137-145) mmol/L Potassium 4.7 (3.5-5.1) mmol/L Chloride 98 (98-107) mmol/L Carbon Dioxide 34 H (22-30) mmol/L Anion Gap 9 mmol/L BUN 54 H (7-17) mg/dL Creatinine 1.14 H (0.52-1.04) mg/dL Est GFR (CKD-EPI)AfAm 64 (>60 ml/min/1.73 sqM) Est GFR (CKD-EPI)NonAf 56 (>60 ml/min/1.73 sqM) Glucose 155 H (74-99) mg/dL Calcium 10.2 (8.4-10.2) mg/dL Total Bilirubin 0.6 (0.2-1.3) mg/dL AST 37 H (14-36) U/L ALT 78 H (4-34) U/L Alkaline Phosphatase 115 (38-126) U/L Total Protein 7.2 (6.3-8.2) g/dL Albumin 3.8 (3.5-5.0) g/dL Lipase 65 (23-300) U/L Disposition Clinical Impression: Diabetic gastroparesis, Intractable nausea and vomiting Disposition: ADMITTED IP TO THIS [facility] Condition: Stable Is patient prescribed a controlled substance at d/c from ED?: No Time of Disposition: 23:07 Decision to Admit Reason: Admit from EC Decision Date: 07/31/24 Decision Time: 23:08
[2024-07-31] MEDS: HYDROmorphone 1 MG/ML 1 ML SYRINGE IVP STA (23:11)
[2024-07-31] MEDS ORDERED: NALOXONE 0.4 MG/ML 1 ML VIAL IV PRN (23:14)
[2024-08-01] MEDS: SODIUM CHLORIDE 0.9% 1,000 ML IV SCH (00:35)
[2024-08-01] MEDS: HYDROmorphone 1 MG/ML 1 ML SYRINGE IVP PRN (02:02)
[2024-08-01] MEDS: ONDANSETRON 4 MG/2 ML VIAL IVP PRN (04:14)
[2024-08-01 04:48] LABS: Appearance,Urine Clear (Clear); Bacteria,Urine Rare /hpf; Bilirubin,Urine Negative (Negative); Blood,Urine Small (Negative); Color,Urine Light Yellow; Glucose,Urine (UA) 4+ (Negative); Hyaline Casts,Urine 11 /lpf (0-2); Ketones,Urine Negative (Negative); Leukocyte Esterase,Urine Negative (Negative); Mucus,Urine Rare /hpf; Nitrite,Urine Negative (Negative); Protein,Urine 3+ (Negative); RBC,Urine 5 /hpf (0-5); Specific Gravity,Urine 1.019 (1.001-1.035); Squamous Epithelial Cell,Urine 5 /hpf (0-4); Urobilinogen,Urine <2.0 mg/dL (<2.0); WBC,Urine 3 /hpf (0-5)
[2024-08-01 06:22] LABS: Glucose,Whole Blood 115 mg/dL (70-110)
[2024-08-01] MEDS: PANTOPRAZOLE 40 MG/10 ML VIAL IVP ONE (06:56)
[2024-08-01] MEDS: PANTOPRAZOLE 40 MG/10 ML VIAL IVP SCH (07:16)
--- NOTE | 2024-08-01 07:32 | XR ---
EXAMINATION TYPE: XR abdomen 2V DATE OF EXAM: 08/01/2024 7:22 AM COMPARISON: 05/10/2024 CLINICAL INDICATION: Female, 54 years old with history of coffee ground emesis; [facility] TECHNIQUE: Two views of the abdomen were obtained. FINDINGS: Moderate amount stool throughout the colon. The bowel gas pattern is nonspecific without di lated loops of small or large bowel. There is no evidence for organomegaly or pneumoperitoneum. The osseous structures are intact. No abnormal calcifications are present. Fecal material and gas are de monstrated throughout the colon and rectum. IMPRESSION: Nonspecific bowel gas pattern without radiographic evidence for acute process. [facility], , 08/01/2024 7:29 AM
[2024-08-01 09:48] LABS: Basophils # (A) 0.1 k/uL (0-0.2); Basophils % (A) 1 %; Eosinophils % (A) 0 %; HCT 37.7 % (34.0-46.0); HGB 11.7 gm/dL (11.4-16.0); Hypochromasia Slight; Lymphocytes # (A) 1.4 k/uL (1.0-4.8); Lymphocytes % (A) 11 %; MCHC 31.1 g/dL (31.0-37.0); MCV 93.1 fL (80.0-100.0); Mean Platelet Volume 7.5; Monocytes # (A) 0.4 k/uL (0-1.0); Monocytes % (A) 3 %; Neutrophils % (A) 85 %; Platelet Count 573 k/uL (150-450); RBC 4.05 m/uL (3.80-5.40); RDW 14.4 % (11.5-15.5); WBC 12.9 k/uL (3.8-10.6)
[2024-08-01 10:07] LABS: African American GFR (CKD) 70 (>60 ml/min/1.73 sqM); Anion Gap 9 mmol/L; Blood Urea Nitrogen 48 mg/dL (7-17); Calcium 9.4 mg/dL (8.4-10.2); Carbon Dioxide 29 mmol/L (22-30); Chloride 101 mmol/L (98-107); Glucose 139 mg/dL (74-99); Non-African American GFR(CKD) 61 (>60 ml/min/1.73 sqM); Sodium 139 mmol/L (137-145)
[2024-08-01 10:16] LABS: Potassium 4.3 mmol/L (3.5-5.1)
[2024-08-01] MEDS: LACTATED RINGERS 1,000 ML IV SCH (11:02)
[2024-08-01] MEDS: SCOPOLAMINE 1 MG/72 HR PATCH TRANSDERM STA (11:13)
[2024-08-01] MEDS ORDERED: ARTIFICIAL TEARS-HYPROMELLOSE DROPS 15 ML BTL BOTH EYES PRN (12:06)
[2024-08-01] MEDS ORDERED: IPRATROPIUM-ALBUTEROL 3 ML NEB INHALATION PRN (12:06)
[2024-08-01] MEDS: amLODIPine 5 MG TAB PO SCH (12:55)
[2024-08-01] MEDS: lisinopriL 5 MG TAB PO SCH (12:55)
[2024-08-01] MEDS: METOPROLOL TARTRATE 50 MG TAB PO SCH (12:55)
[2024-08-01] MEDS: ALPRAZolam 0.5 MG TAB PO SCH (14:13)
[2024-08-01] MEDS: SODIUM CHLORIDE 0.9% 500 ML 500 ML IV ONE (16:23)
[2024-08-01] MEDS: cloNIDine 0.1 MG/24HR PATCH TRANSDERM SCH (17:15)
[2024-08-01] MEDS: METOCLOPRAMIDE 5 MG/ML 2 ML VIAL IVP SCH (17:22)
[2024-08-01] MEDS ORDERED: DEXTROSE 50% SYRINGE 50 ML IVP PRN ×2 (19:14)
--- NOTE | 2024-08-01 19:21 | P.HPIM ---
History of Present Illness H&P Date: 08/01/24 Chief Complaint: Vomiting I am rounding for Dr. Dell Pike 54-year-old patient follows with Dr. Dell Pike. Chronic medical conditions include diabetes, insomnia, GERD, depression. severe protein calorie malnutrition. Patient self removed her jejunostomy tube a month ago that was placed by Dr Garzon./Surgeon, in December 2023. Patient presented 2 days of persistent nausea vomiting. Abdominal pain. Had some coffee-ground emesis in the ER. Made NPO. IV fluids. Surgery consulted. Denies any fever or chills. Review of systems: GEN.: Tired EYES: None HEENT: None NECK: None RESPIRATORY: None CARDIOVASCULAR: None GASTROINTESTINAL: [As above GENITOURINARY: None MUSCULOSKELETAL: Loss of e muscle mass LYMPHATICS: None HEMATOLOGICAL: None PSYCHIATRY: [Anxious NEUROLOGICAL: None Social history: Started smoking in 1987. Does medical marijuana. No alcohol. Lives with Lalo Landrum and his son. Physical examination: VITAL SIGNS: 98.5, 122, 18, 178 x 108, 96% room air GENERAL: BMI 15.1, severe loss of muscle mass and subcutaneous fat, anxious EYES: Pupils equal. Conjunctiva normal. HEENT: External appearance of nose and ears normal, oral cavity dry NECK: JVD not raised; masses not palpable. HEART: First and second heart sounds are normal; no edema. LUNGS: Respiratory rate normal; clear to auscultation. ABDOMEN: Soft, scaphoid some tenderness r, liver spleen not palpable, no masses palpable. No feeding tube PSYCH: Alert and oriented x3; mood and affect anxious l. MUSCULOSKELETAL:No Clubbing/cyanosis;muscles-grossly intact. Muscle muscle mass. Prominent bones. INVESTIGATIONS, reviewed in the clinical context: August 01: White count 12.9 hemoglobin 11.7 platelets 573 sodium 139 potassium 4.3 BUN 48 creatinine 1.06 Abdominal x-ray: Nonspecific findings Previous test July 21: Creatinine 0.93 EGD April 2024: Gastritis Assessment and plan: -Acute on chronic exacerbation of gastroparesis. With severe nausea vomiting Jejunostomy tube was pulled out by the patient about a month ago that was placed by Dr. Garzon from surgery IV Reglan 5 mg every 6. Scopolamine patch. -Acute coffee-ground emesis from gastritis, as per recent EGD by Dr Garzon in April 2024 IV PPI -Severe protein calorie malnutrition Patient has pulled out her jejunostomy tube about a month ago -Diabetes mellitus type 2, chronically on insulin, uncontrolled with hyperlipidemia Follow Accu-Cheks. Sliding scale -Chronic insomnia Remeron -Acute kidney injury prerenal from severe nausea vomiting Lactated Ringer's -Essential hypertension Add Catapres patch 0.1 mg. Other home medications renewed -GERD/esophagitis Protonix -Depression Cymbalta -COPD in a current smoker DuoNeb, as needed -Chronic nicotine dependence cigarette smoker Nicotine patch Patient does not have a surgical abdomen. Abdomen is rather soft. No real adrian cation for IV Dilaudid patient is requesting. Getting 1 mg every 3. Cut back to 0.5 mg every 4 hours. That itself will contribute to the nausea vomiting. And make the bowels even slower. Given patient's clinical presentation findings and severity patient will need to have at least a 2 night stay in the hospital. Past Medical History Past Medical History: Diabetes Mellitus, Hypertension, Musculoskeletal Disorder Additional Past Medical History / Comment(s): FREQ NAUSEA, PAINFUL RT SHOULDER "FROZEN SHOULDER", NEUROPATHY PORFIRIO LEGS and hands, Blood pressures can run high History of Any Multi-Drug Resistant Organisms: ESBL, MRSA, VRE Date of last positivie culture/infection: 06/01/24-ESBL; 10/06/22-VRE; 05/19/23- MRSA MDRO Source:: ESBL-urine; VRE-urine; MRSA-abdomen Past Surgical History: Cholecystectomy, Orthopedic Surgery, Tubal Ligation Additional Past Surgical History / Comment(s): rt shoulder, J tube placement Past Anesthesia/Blood Transfusion Reactions: No Reported Reaction Additional Past Anesthesia/Blood Transfusion Reaction / Comment(s): UNK FAMILY HX Past Psychological History: Anxiety Smoking Status: Current every day smoker Past Alcohol Use History: None Reported Past Drug Use History: None Reported - Past Family History Father History Unknown: Yes Additional Family Medical History / Comment(s): unknown-adopted Mother History Unknown: Yes Additional Family Medical History / Comment(s): unknown- adopted Medications and Allergies Home Medications Medication Instructions Recorded Confirmed Type Atorvastatin [Lipitor] 20 mg PO DAILY 05/12/23 08/01/24 History Insulin Lispro [humaLOG Kwikpen] See Protocol SQ ACHS 05/12/23 08/01/24 History Mirtazapine [Remeron] 30 mg PO HS 05/12/23 08/01/24 History Metoclopramide [Reglan] 10 mg PO ACHS 30 Days #120 tab 05/15/23 08/01/24 Rx Folic Acid 1 mg PO DAILY 06/15/23 08/01/24 History Ferrous Sulfate [Iron (65 MG 325 mg PO DAILY 12/09/23 08/01/24 History Elemental)] Insulin Glargine (Lantus) [Lantus 10 unit SQ DAILY 12/09/23 08/01/24 History Vial] amLODIPine [Norvasc] 5 mg PO DAILY 90 Days #90 tab 12/19/23 08/01/24 Rx Famotidine [Pepcid] 20 mg PO BID 30 Days #60 tab 01/18/24 08/01/24 Rx Ondansetron [Zofran] 4 mg PO QID 02/21/24 08/01/24 History methocarbamoL [Robaxin] 250 mg PO QID 02/21/24 08/01/24 History Artificial Tears-Hypromellose 1 drop BOTH EYES QID PRN 03/19/24 08/01/24 History [Artificial Tear Drops] Scopolamine [Scopolamine 1 MG/72 1 patch TRANSDERM Q72H PRN 03/19/24 08/01/24 History HR patch] HYDROcodone/APAP 10-325MG [[place] 1 tab PO TID 05/10/24 08/01/24 History 10-325] Cholestyramine (with Sugar) 4 gm PO BID@1000,1800 30 Days #30 05/20/24 08/01/24 Rx [Questran Packet] packet Ipratropium-Albuterol Nebulize 3 ml INHALATION RT-TID PRN each 05/20/24 08/01/24 Rx [Duoneb 0.5 mg-3 mg/3 ml Soln] lisinopriL [Zestril] 5 mg PO DAILY 30 Days #30 tab 05/20/24 08/01/24 Rx Metoprolol Tartrate [Lopressor] 50 mg PO BID 06/19/24 08/01/24 History ALPRAZolam [Xanax] 0.5 mg PO BID 07/16/24 08/01/24 History Allergies Allergy/AdvReac Type Severity Reaction Status Date / Time fentanyl AdvReac "wobbly" Verified 08/01/24 08:40 Physical Exam Vitals: Vital Signs Temp Pulse Resp BP Pulse Ox 08/01/24 11:10 110 H 17 182/96 92 L 08/01/24 09:31 113 H 15 182/96 98 08/01/24 08:41 98.5 F 118 H 17 117/107 98 08/01/24 07:49 18 08/01/24 06:00 105 H 18 173/99 96 08/01/24 04:31 162/107 08/01/24 04:00 111 H 18 95 08/01/24 00:36 105 H 135/91 96 07/31/24 22:47 112 H 18 92/54 98 07/31/24 20:17 98.4 F 114 H 16 86/56 98 Intake and Output 07/31/24 08/01/24 08/01/24 22:59 06:59 14:59 Other: Weight 34.019 kg Results CBC & Chem 7: 08/01/24 09:25 08/01/24 09:25 Labs: Abnormal Lab Results - Last 24 Hours (Table) 07/31/24 07/31/24 08/01/24 Range/Units 21:22 21:22 04:25 WBC 12.6 H (3.8-10.6) k/uL Plt Count 572 H D (150-450) k/uL Neutrophils # 10.8 H (1.3-7.7) k/uL Carbon Dioxide 34 H (22-30) mmol/L BUN 54 H (7-17) mg/dL Creatinine 1.14 H (0.52-1.04) mg/dL Glucose 155 H (74-99) mg/dL POC Glucose (mg/dL) (70-110) mg/dL AST 37 H (14-36) U/L ALT 78 H (4-34) U/L Urine Protein 3+ H (Negative) Urine Glucose (UA) 4+ H (Negative) Urine Blood Small H (Negative) Ur Squamous Epith Cells 5 H (0-4) /hpf Urine Bacteria Rare H (None) /hpf Hyaline Casts 11 H (0-2) /lpf Urine Mucus Rare H (None) /hpf 08/01/24 08/01/24 08/01/24 Range/Units 06:20 09:25 09:25 WBC 12.9 H (3.8-10.6) k/uL Plt Count 573 H (150-450) k/uL Neutrophils # 11.0 H (1.3-7.7) k/uL Carbon Dioxide (22-30) mmol/L BUN 48 H (7-17) mg/dL Creatinine 1.06 H (0.52-1.04) mg/dL Glucose 139 H (74-99) mg/dL POC Glucose (mg/dL) 115 H (70-110) mg/dL AST (14-36) U/L ALT (4-34) U/L Urine Protein (Negative) Urine Glucose (UA) (Negative) Urine Blood (Negative) Ur Squamous Epith Cells (0-4) /hpf Urine Bacteria (None) /hpf Hyaline Casts (0-2) /lpf Urine Mucus (None) /hpf
[2024-08-01] MEDS: MIRTAZAPINE 15 MG TAB PO SCH (20:45)
[2024-08-01] MEDS: HYDROmorphone 0.5 MG/0.5 ML SYRINGE IVP PRN (21:38)
[2024-08-01] MEDS: NICOTINE 21MG/24HR PATCH TRANSDERM SCH (21:47)
[2024-08-01 21:49] LABS: Glucose,Whole Blood 131 mg/dL (70-110)
[2024-08-01] MEDS: INSULIN ASPART (NovoLOG) 100 UNIT/ML VIAL SQ SCH (22:15)
[2024-08-02 03:25] LABS: Glucose,Whole Blood 147 mg/dL (70-110)
[2024-08-02 03:42] LABS: Basophils % (A) 0 %; Eosinophils % (A) 0 %; HCT 32.7 % (34.0-46.0); HGB 10.2 gm/dL (11.4-16.0); Hypochromasia Moderate; Lymphocytes # (A) 1.7 k/uL (1.0-4.8); Lymphocytes % (A) 11 %; MCHC 31.1 g/dL (31.0-37.0); MCV 93.3 fL (80.0-100.0); Monocytes # (A) 0.5 k/uL (0-1.0); Monocytes % (A) 3 %; Neutrophils # (A) 13.3 k/uL (1.3-7.7); Neutrophils % (A) 84 %; Platelet Count 584 k/uL (150-450); RDW 14.1 % (11.5-15.5); WBC 15.7 k/uL (3.8-10.6)
[2024-08-02 03:58] LABS: African American GFR (CKD) 82 (>60 ml/min/1.73 sqM); Anion Gap 6 mmol/L; Blood Urea Nitrogen 33 mg/dL (7-17); Calcium 8.7 mg/dL (8.4-10.2); Carbon Dioxide 30 mmol/L (22-30); Chloride 106 mmol/L (98-107); Glucose 149 mg/dL (74-99); Non-African American GFR(CKD) 71 (>60 ml/min/1.73 sqM); Potassium 3.7 mmol/L (3.5-5.1); Sodium 142 mmol/L (137-145)
[2024-08-02 06:13] LABS: Glucose,Whole Blood 172 mg/dL (70-110)
[2024-08-02] MEDS: ATORVASTATIN 20 MG TAB PO SCH (08:31)
[2024-08-02 11:02] LABS: Glucose,Whole Blood 211 mg/dL (70-110)
--- NOTE | 2024-08-02 13:47 | P.CON ---
Consult Note - . Consult date: 08/02/24 Assessment/Plan:: 54-year-old female well-known to the emergency department presents with nausea and vomiting. Patient has a history of diabetic gastroparesis. Reports that she has not eaten or drank anything due to her nausea and vomiting which has cau sed her to have significant weakness. EMS arrived on scene and the patient essentially collapsed into their arms. Her hemoglobin did drop this AM and she is having hematemesis. Review of Systems ROS Statement: Those systems with pertinent positive or pertinent negative responses have been documented in the HPI. ROS Other: All systems not noted in ROS Statement are negative. Past Medical History Past Medical History: Diabetes Mellitus, Hypertension, Musculoskeletal Disorder Additional Past Medical History / Comment(s): FREQ NAUSEA, PAINFUL RT SHOULDER "FROZEN SHOULDER", NEUROPATHY PORFIRIO LEGS and hands, Blood pressures can run high History of Any Multi-Drug Resistant Organisms: ESBL, MRSA, VRE Date of last positivie culture/infection: 06/01/24-ESBL; 10/06/22-VRE; 05/19/23- MRSA MDRO Source:: ESBL-urine; VRE-urine; MRSA-abdomen Past Surgical History: Cholecystectomy, Orthopedic Surgery, Tubal Ligation Additional Past Surgical History / Comment(s): rt shoulder, J tube placement Past Anesthesia/Blood Transfusion Reactions: No Reported Reaction Additional Past Anesthesia/Blood Transfusion Reaction / Comment(s): UNK FAMILY HX Past Psychological History: Anxiety Smoking Status: Current every day smoker Past Alcohol Use History: None Reported Past Drug Use History: None Reported - Past Family History Father History Unknown: Yes Additional Family Medical History / Comment(s): unknown-adopted Mother History Unknown: Yes Additional Family Medical History / Comment(s): unknown- adopted General Exam Limitations: no limitations General appearance: alert, lethargic, cachectic (Renato stopped screaming) Head exam: Present: atraumatic, normocephalic, normal inspection Eye exam: Present: normal appearance, PERRL, EOMI. Absent: scleral icterus, conjunctival injection, periorbital swelling ENT exam: Present: normal exam, mucous membranes moist Respiratory exam: Present: normal lung sounds bilaterally ([place] stop screaming). Absent: respiratory distress, wheezes, rales, rhonchi, stridor Cardiovascular Exam: Present: normal rhythm, tachycardia GI/Abdominal exam: Present: soft Neurological exam: Present: alert Psychiatric exam: Present: normal affect, normal mood Skin exam: Present: warm, dry, intact, normal color. Absent: rash 54 year old female with hematemesis -EGD planned for tomorrow -NPO/midnight -Protonix -Monitor hemoglobin Nito Martinez [facility] [phone]
[2024-08-02 16:19] LABS: Glucose,Whole Blood 141 mg/dL (70-110)
--- NOTE | 2024-08-02 17:40 | P.PN ---
Progress Note - Text Progress Note Date: 08/02/24 Chief Complaint: Vomiting I am rounding for Dr. Dell Pike 54-year-old patient follows with Dr. Dell Pike. Chronic medical conditions include diabetes, insomnia, GERD, depression. severe protein calorie malnutrition. Patient self removed her jejunostomy tube a month ago that was placed by Dr Garzon./Surgeon, in December 2023. Patient presented 2 days of persistent nausea vomiting. Abdominal pain. Had some coffee-ground emesis in the ER. Made NPO. IV fluids. Surgery consulted. Denies any fever or chills. August 02: Still having some vomiting. Also some fresh blood. Patient seen by surgery and for EGD tomorrow. Patient remains NPO. Getting IV PPI and IV fluids. Discussed with patient. Active Medications Albuterol/Ipratropium (Ipratropium-Albuterol 3 Ml Neb) 3 ml INHALATION RT-TID PRN PRN Reason: Shortness Of Breath Or Wheezing Alprazolam (Alprazolam 0.5 Mg Tab) 0.5 mg PO BID [facility] Last Admin: 08/02/24 08:31 Dose: 0.5 mg Amlodipine Besylate (Amlodipine 5 Mg Tab) 5 mg PO DAILY [facility] Last Admin: 08/02/24 08:31 Dose: 5 mg Artificial Tears (Artificial Tears-Hypromellose Drops 15 Ml Btl) 1 drops BOTH EYES QID PRN PRN Reason: Dry Eye(s) Atorvastatin Calcium (Atorvastatin 20 Mg Tab) 20 mg PO DAILY [facility] Last Admin: 08/02/24 08:31 Dose: Not Given Clonidine HCl (Clonidine 0.1 Mg/24hr Patch) 1 patch TRANSDERM Q7D [facility] Last Admin: 08/01/24 17:15 Dose: 1 patch Dextrose/Water (Dextrose 50% Syringe 50 Ml) 25 ml IVP PER PROTOCOL PRN; Protocol PRN Reason: Hypoglycemia Dextrose/Water (Dextrose 50% Syringe 50 Ml) 50 ml IVP PER PROTOCOL PRN; Protocol PRN Reason: Hypoglycemia Hydromorphone HCl (Hydromorphone 0.5 Mg/0.5 Ml Syringe) 0.5 mg IVP Q4H PRN PRN Reason: Severe Pain (Scale 7 to 10) Last Admin: 08/02/24 15:58 Dose: 0.5 mg Lactated Ringer's (Lactated Ringers) 1,000 mls @ 150 mls/hr IV .Q6H40M [facility] Last Admin: 08/02/24 16:00 Dose: 150 mls/hr Insulin Aspart (Insulin Aspart (Novolog) 100 Unit/Ml Vial) 0 unit SQ ACHS [facility]; Protocol Last Admin: 08/02/24 17:26 Dose: Not Given Lisinopril (Lisinopril 5 Mg Tab) 5 mg PO DAILY [facility] Last Admin: 08/02/24 08:31 Dose: 5 mg Metoclopramide HCl (Metoclopramide 5 Mg/Ml 2 Ml Vial) 5 mg IVP Q6HR [facility] Last Admin: 08/02/24 17:30 Dose: 5 mg Metoprolol Tartrate (Metoprolol Tartrate 50 Mg Tab) 50 mg PO BID [facility] Last Admin: 08/02/24 08:31 Dose: 50 mg Mirtazapine (Mirtazapine 15 Mg Tab) 30 mg PO HS [facility] Last Admin: 08/01/24 20:45 Dose: Not Given Naloxone HCl (Naloxone 0.4 Mg/Ml 1 Ml Vial) 0.2 mg IV Q2M PRN PRN Reason: Opioid Reversal Nicotine (Nicotine 21mg/24hr Patch) 1 patch TRANSDERM DAILY [facility] Last Admin: 08/02/24 08:31 Dose: 1 patch Ondansetron HCl (Ondansetron 4 Mg/2 Ml Vial) 4 mg IVP Q8HR PRN PRN Reason: Nausea And Vomiting Last Admin: 08/02/24 08:35 Dose: 4 mg Pantoprazole Sodium (Pantoprazole 40 Mg/10 Ml Vial) 40 mg IVP BID [facility] Last Admin: 08/02/24 08:31 Dose: 40 mg Social history: Started smoking in 1987. Does medical marijuana. No alcohol. Lives with Lalo Landrum and his son. Physical examination: VITAL SIGNS: 97.8, 85, 18, 144 x 79, 100% room air GENERAL: BMI 15.1, severe loss of muscle mass and subcutaneous fat, anxious EYES: Pupils equal. Conjunctiva normal. HEENT: External appearance of nose and ears normal, oral cavity dry NECK: JVD not raised; masses not palpable. HEART: First and second heart sounds are normal; no edema. LUNGS: Respiratory rate normal; clear to auscultation. ABDOMEN: Soft, scaphoid, some tenderness, no guarding rigidity r, liver spleen not palpable, no masses palpable. No feeding tube PSYCH: Alert and oriented x3; mood and affect anxious MUSCULOSKELETAL:No Clubbing/cyanosis;muscles-grossly intact. Muscle muscle mass. Prominent bones. INVESTIGATIONS, reviewed in the clinical context: August 02: White count 15.7 hemoglobin 10.2 potassium 3.7 creatinine 0.93 August 01: White count 12.9 hemoglobin 11.7 platelets 573 sodium 139 potassium 4.3 BUN 48 creatinine 1.06 Abdominal x-ray: Nonspecific findings Previous test July 21: Creatinine 0.93 EGD April 2024: Gastritis Assessment and plan: -Acute on chronic exacerbation of gastroparesis. With severe nausea vomiting: Not improving Jejunostomy tube was pulled out by the patient about a month ago that was placed by Dr. Garzon from surgery IV Reglan 5 mg every 6. Scopolamine patch. -Acute coffee-ground emesis, followed by GI bleed, with known history of g astritis, as per recent EGD by Dr Garzon in April 2024: Worsening IV PPI Plan for EGD by surgery tomorrow Follow H&H -Acute blood loss anemia from possible GI bleed and element of chronic disease -Severe protein calorie malnutrition Patient has pulled out her jejunostomy tube about a month ago -Diabetes mellitus type 2, chronically on insulin, uncontrolled with hyperlipidemia Follow Accu-Cheks. Sliding scale -Chronic insomnia Remeron -Acute kidney injury prerenal from severe nausea vomiting Lactated Ringer's -Essential hypertension Add Catapres patch 0.1 mg. Other home medications renewed -GERD/esophagitis Protonix -Depression Cymbalta -COPD in a current smoker DuoNeb, as needed -Chronic nicotine dependence cigarette smoker Nicotine patch Follow H&H. For EGD tomorrow. Past Medical History Past Medical History: Diabetes Mellitus, Hypertension, Musculoskeletal Disorder Additional Past Medical History / Comment(s): FREQ NAUSEA, PAINFUL RT SHOULDER "FROZEN SHOULDER", NEUROPATHY PORFIRIO LEGS and hands, Blood pressures can run high History of Any Multi-Drug Resistant Organisms: ESBL, MRSA, VRE Date of last positivie culture/infection: 06/01/24-ESBL; 10/06/22-VRE; 05/19/23- MRSA MDRO Source:: ESBL-urine; VRE-urine; MRSA-abdomen Past Surgical History: Cholecystectomy, Orthopedic Surgery, Tubal Ligation Additional Past Surgical History / Comment(s): rt shoulder, J tube placement Past Anesthesia/Blood Transfusion Reactions: No Reported Reaction Additional Past Anesthesia/Blood Transfusion Reaction / Comment(s): UNK FAMILY HX Past Psychological History: Anxiety Smoking Status: Current every day smoker Past Alcohol Use History: None Reported Past Drug Use History: None Reported
[2024-08-02 19:53] LABS: Glucose,Whole Blood 160 mg/dL (70-110)
[2024-08-03 06:11] LABS: Glucose,Whole Blood 231 mg/dL (70-110)
[2024-08-03 07:24] LABS: Basophils % (A) 0 %; Eosinophils % (A) 0 %; HCT 33.5 % (34.0-46.0); HGB 9.8 gm/dL (11.4-16.0); Hypochromasia Marked; Lymphocytes # (A) 1.4 k/uL (1.0-4.8); Lymphocytes % (A) 11 %; MCH 28.1 pg (25.0-35.0); MCHC 29.3 g/dL (31.0-37.0); MCV 95.8 fL (80.0-100.0); Mean Platelet Volume 6.9; Monocytes # (A) 0.5 k/uL (0-1.0); Monocytes % (A) 4 %; Neutrophils % (A) 84 %; Platelet Count 569 k/uL (150-450); RBC 3.49 m/uL (3.80-5.40); RDW 13.7 % (11.5-15.5); WBC 13.1 k/uL (3.8-10.6)
[2024-08-03 11:17] LABS: Glucose,Whole Blood 154 mg/dL (70-110)
[2024-08-03] MEDS: IV FLUID CONTINUATION 1,000 ML IV ONE (14:57)
[2024-08-03] MEDS ORDERED: LIDOCAINE 2% (PF) 20 MG/ML 5 ML VIAL ONE (14:57)
[2024-08-03] MEDS ORDERED: PROPOFOL 10 MG/ML 20 ML VIAL IV ONE (14:57)
--- NOTE | 2024-08-03 15:44 | P.PN ---
Progress Note - Text Progress Note Date: 08/03/24 Chief Complaint: Vomiting I am rounding for Dr. Dell Pike 54-year-old patient follows with Dr. Dell Pike. Chronic medical conditions include diabetes, insomnia, GERD, depression. severe protein calorie malnutrition. Patient self removed her jejunostomy tube a month ago that was placed by Dr Garzon./Surgeon, in December 2023. Patient presented 2 days of persistent nausea vomiting. Abdominal pain. Had some coffee-ground emesis in the ER. Made NPO. IV fluids. Surgery consulted. Denies any fever or chills. August 02: Still having some vomiting. Also some fresh blood. Patient seen by surgery and for EGD tomorrow. Patient remains NPO. Getting IV PPI and IV fluids. Discussed with patient. August 03: Patient seen this morning. NPO. Decrease abdominal pain. No further bleeding. Pending endoscopy. Hemoglobin 9.8. Unclear Active Medications Albuterol/Ipratropium (Ipratropium-Albuterol 3 Ml Neb) 3 ml INHALATION RT-TID PRN PRN Reason: Shortness Of Breath Or Wheezing Alprazolam (Alprazolam 0.5 Mg Tab) 0.5 mg PO BID [facility] Last Admin: 08/03/24 08:02 Dose: 0.5 mg Amlodipine Besylate (Amlodipine 5 Mg Tab) 5 mg PO DAILY [facility] Last Admin: 08/03/24 08:02 Dose: 5 mg Artificial Tears (Artificial Tears-Hypromellose Drops 15 Ml Btl) 1 drops BOTH EYES QID PRN PRN Reason: Dry Eye(s) Atorvastatin Calcium (Atorvastatin 20 Mg Tab) 20 mg PO DAILY [facility] Last Admin: 08/03/24 08:02 Dose: 20 mg Clonidine HCl (Clonidine 0.1 Mg/24hr Patch) 1 patch TRANSDERM Q7D [facility] Last Admin: 08/01/24 17:15 Dose: 1 patch Dextrose/Water (Dextrose 50% Syringe 50 Ml) 25 ml IVP PER PROTOCOL PRN; Protocol PRN Reason: Hypoglycemia Dextrose/Water (Dextrose 50% Syringe 50 Ml) 50 ml IVP PER PROTOCOL PRN; Protocol PRN Reason: Hypoglycemia Hydromorphone HCl (Hydromorphone 0.5 Mg/0.5 Ml Syringe) 0.5 mg IVP Q4H PRN PRN Reason: Severe Pain (Scale 7 to 10) Last Admin: 08/03/24 15:18 Dose: 0.5 mg Lactated Ringer's (Lactated Ringers) 1,000 mls @ 150 mls/hr IV .Q6H40M [facility] Last Admin: 08/03/24 12:54 Dose: Not Given Insulin Aspart (Insulin Aspart (Novolog) 100 Unit/Ml Vial) 0 unit SQ [facility]; Protocol Last Admin: 08/03/24 11:15 Dose: Not Given Lisinopril (Lisinopril 5 Mg Tab) 5 mg PO DAILY [facility] Last Admin: 08/03/24 08:02 Dose: 5 mg Metoclopramide HCl (Metoclopramide 5 Mg/Ml 2 Ml Vial) 5 mg IVP Q6HR [facility] Last Admin: 08/03/24 11:19 Dose: 5 mg Metoprolol Tartrate (Metoprolol Tartrate 50 Mg Tab) 50 mg PO BID [facility] Last Admin: 08/03/24 08:01 Dose: 50 mg Mirtazapine (Mirtazapine 15 Mg Tab) 30 mg PO HS [facility] Last Admin: 08/02/24 20:02 Dose: Not Given Naloxone HCl (Naloxone 0.4 Mg/Ml 1 Ml Vial) 0.2 mg IV Q2M PRN PRN Reason: Opioid Reversal Nicotine (Nicotine 21mg/24hr Patch) 1 patch TRANSDERM DAILY [facility] Last Admin: 08/03/24 08:02 Dose: 1 patch Ondansetron HCl (Ondansetron 4 Mg/2 Ml Vial) 4 mg IVP Q8HR PRN PRN Reason: Nausea And Vomiting Last Admin: 08/03/24 03:52 Dose: 4 mg Pantoprazole Sodium (Pantoprazole 40 Mg/10 Ml Vial) 40 mg IVP BID [facility] Last Admin: 08/03/24 08:01 Dose: 40 mg Social history: Started smoking in 1987. Does medical marijuana. No alcohol. Lives with Lalo Landrum and his son. Physical examination: VITAL SIGNS: 97.8, 101, 18, 153 x 74, 98% room air GENERAL: BMI 15.1, severe loss of muscle mass and subcutaneous fat, anxious EYES: Pupils equal. Conjunctiva normal. HEENT: External appearance of nose and ears normal, oral cavity dry NECK: JVD not raised; masses not palpable. HEART: First and second heart sounds are normal; no edema. LUNGS: Respiratory rate normal; clear to auscultation. ABDOMEN: Soft, scaphoid, mild tenderness, no guarding rigidity r, liver spleen not palpable, no masses palpable. No feeding tube PSYCH: Alert and oriented x3; mood and affect anxious MUSCULOSKELETAL:No Clubbing/cyanosis;muscles-grossly intact. Muscle muscle mass. Prominent bones. INVESTIGATIONS, reviewed in the clinical context: August 03: White count 13.1 hemoglobin 9.8 platelets 569 August 02: White count 15.7 hemoglobin 10.2 potassium 3.7 creatinine 0.93 August 01: White count 12.9 hemoglobin 11.7 platelets 573 sodium 139 potassium 4.3 BUN 48 creatinine 1.06 Abdominal x-ray: Nonspecific findings Previous test July 21: Creatinine 0.93 EGD April 2024: Gastritis Assessment and plan: -Acute on chronic exacerbation of gastroparesis. With severe nausea vomiting: Not improving Jejunostomy tube was pulled out by the patient about a month ago that was placed by Dr. Garzon from surgery IV Reglan 5 mg every 6. Scopolamine patch. -Acute coffee-ground emesis, followed by GI bleed, with known history of gastritis, as per recent EGD by Dr Garzon in April 2024: Worsening IV PPI Pending EGD today. Follow H&H -Acute blood loss anemia from possible GI bleed and element of chronic disease Follow H&H -Severe protein calorie malnutrition Patient has pulled out her jejunostomy tube about a month ago -Diabetes mellitus type 2, chronically on insulin, uncontrolled with hyperlipidemia Follow Accu-Cheks. Sliding scale -Chronic insomnia Remeron -Acute kidney injury prerenal from severe nausea vomiting Lactated Ringer's -Essential hypertension Add Catapres patch 0.1 mg. Other home medications renewed -GERD/esophagitis Protonix -Depression Cymbalta -COPD in a current smoker DuoNeb, as needed -Chronic nicotine dependence cigarette smoker Nicotine patch Past Medical History Past Medical History: Diabetes Mellitus, Hypertension, Musculoskeletal Disorder Additional Past Medical History / Comment(s): FREQ NAUSEA, PAINFUL RT SHOULDER "FROZEN SHOULDER", NEUROPATHY PORFIRIO LEGS and hands, Blood pressures can run high History of Any Multi-Drug Resistant Organisms: ESBL, MRSA, VRE Date of last positivie culture/infection: 06/01/24-ESBL; 10/06/22-VRE; 05/19/23- MRSA MDRO Source:: ESBL-urine; VRE-urine; MRSA-abdomen Past Surgical History: Cholecystectomy, Orthopedic Surgery, Tubal Ligation Additional Past Surgical History / Comment(s): rt shoulder, J tube placement Past Anesthesia/Blood Transfusion Reactions: No Reported Reaction Additional Past Anesthesia/Blood Transfusion Reaction / Comment(s): UNK FAMILY HX Past Psychological History: Anxiety Smoking Status: Current every day smoker Past Alcohol Use History: None Reported Past Drug Use History: None Reported
[2024-08-03 16:25] LABS: Glucose,Whole Blood 177 mg/dL (70-110)
--- NOTE | 2024-08-03 16:56 | P.OP ---
Date of Procedure: 08/03/24 Preoperative Diagnosis: UGI Bleed Postoperative Diagnosis: Gastritis Procedure(s) Performed: EGD with Biopsy Anesthesia: JEANNIE Surgeon: Nito Martinez Pathology: other (Antrum x 2) Condition: stable Disposition: PACU Description of Procedure: Informed consent was obtained. The procedure, its risks, benefits, and alternatives were discussed. The patient was placed in the left lateral decubitus position. The patient was sedated. The endoscope was inserted into the oropharynx and guided under direct vision into the esophagus, stomach, and duodenum. The duodenal bulb and second portion were unremarkable. The scope was withdrawn to the stomach and retroflexed. There was no increased fluid, food or secretions in the upper gastrointestinal tract. There was very minimal, nonspecific, patchy antral erythema. There was some gastritis Biopsies were obtained for Helicobacter pylori. No erosions or ulcers. The scope was withdrawn to the esophagus. There was no hiatal hernia. No Barretts or esophagitis. The patient tolerated the procedure very well. The patient was then transferred to the recovery area in good condition. There were no apparent complications.
[2024-08-03 20:37] LABS: Glucose,Whole Blood 289 mg/dL (70-110)
[2024-08-04 06:23] LABS: Glucose,Whole Blood 172 mg/dL (70-110)
[2024-08-04 11:20] LABS: Glucose,Whole Blood 252 mg/dL (70-110)
[2024-08-04 12:09] VITALS: BP 171/81; PULSE 80; RESP 16; TEMP 98.5
[2024-08-04 13:23] VITALS: BMI 15.3
--- NOTE | 2024-08-04 16:16 | P.DS ---
Providers Date of admission: 08/01/24 15:18 Expected date of discharge: 08/04/24 Attending physician: Dell Pike Consults: 08/01/24 15:13 Consult Physician Urgent Consulting Provider: Nito Martinez Consult Reason/Comments: ceffee grd emesis Do you want consulting provider notified?: Yes [facility] Course: Chief Complaint: Vomiting I am rounding for Dr. Dell Pike 54-year-old patient follows with Dr. Dell Pike. Chronic medical conditions include diabetes, insomnia, GERD, depression. severe protein calorie malnutrition. Patient self removed her jejunostomy tube a month ago that was placed by Dr Garzon./Surgeon, in December 2023. Patient presented 2 days of persistent nausea vomiting. Abdominal pain. Had some coffee-ground emesis in the ER. Made NPO. IV fluids. Surgery consulted. Denies any fever or chills. August 02: Still having some vomiting. Also some fresh blood. Patient seen by surgery and for EGD tomorrow. Patient remains NPO. Getting IV PPI and IV fluids. Discussed with patient. August 03: Patient seen this morning. NPO. Decrease abdominal pain. No further bleeding. Pending endoscopy. Hemoglobin 9.8. August 04: Patient underwent EGD yesterday by Dr. Romero. Only gastritis. Patient been tolerating a soft diet. Very slight nausea. IV Dilaudid discontinued. Discussed with patient. Follow-up outpatient. Abdominal pain greatly improved. Patient counseled about smoking Social history: Started smoking in 1987. Does medical marijuana. No alcohol. Lives with Lalo Landrum and his son. Physical examination: VITAL SIGNS: 98.5, 80, 16, 131 x 81, 96% room air GENERAL: BMI 15.1, severe loss of muscle mass and subcutaneous fat, anxious EYES: Pupils equal. Conjunctiva normal. HEENT: External appearance of nose and ears normal, oral cavity dry NECK: JVD not raised; masses not palpable. HEART: First and second heart sounds are normal; no edema. LUNGS: Respiratory rate normal; clear to auscultation. ABDOMEN: Soft, scaphoid, minimal tenderness, no guarding rigidity r, liver spleen not palpable, no masses palpable. No feeding tube PSYCH: Alert and oriented x3; mood and affect more comfortable MUSCULOSKELETAL:No Clubbing/cyanosis;muscles-grossly intact. Muscle muscle mass. Prominent bones. INVESTIGATIONS, reviewed in the clinical context: August 03: White count 13.1 hemoglobin 9.8 platelets 569 August 02: White count 15.7 hemoglobin 10.2 potassium 3.7 creatinine 0.93 August 01: White count 12.9 hemoglobin 11.7 platelets 573 sodium 139 potassium 4.3 BUN 48 creatinine 1.06 Abdominal x-ray: Nonspecific findings Previous test July 21: Creatinine 0.93 EGD April 2024: Gastritis Assessment and plan: -Acute on chronic exacerbation of gastroparesis. With severe nausea vomiting: Better Jejunostomy tube was pulled out by the patient about a month ago that was placed by Dr. Garzon from surgery IV Reglan 5 mg every 6. Scopolamine patch. -Acute coffee-ground emesis, followed by GI bleed, with known history of gastritis, as per recent EGD by Dr Garzon in April 2024: Received PPI CT by Dr. Romero showed gastritis Tolerating soft diet -Acute blood loss anemia from possible GI bleed and element of chronic disease Follow H&H -Severe protein calorie malnutrition Patient has pulled out her jejunostomy tube about a month ago -Diabetes mellitus type 2, chronically on insulin, uncontrolled with hyperlipidemia Follow Accu-Cheks. Sliding scale -Chronic insomnia Remeron -Acute kidney injury prerenal from severe nausea vomiting Lactated Ringer's -Essential hypertension Resume oral home medications -GERD/esophagitis Protonix -Depression Cymbalta -COPD in a current smoker DuoNeb, as needed -Chronic nicotine dependence cigarette smoker Nicotine patch Disposition: Home Past Medical History Past Medical History: Diabetes Mellitus, Hypertension, Musculoskeletal Disorder Additional Past Medical History / Comment(s): FREQ NAUSEA, PAINFUL RT SHOULDER "FROZEN SHOULDER", NEUROPATHY PORFIRIO LEGS and hands, Blood pressures can run high History of Any Multi-Drug Resistant Organisms: ESBL, MRSA, VRE Date of last positivie culture/infection: 06/01/24-ESBL; 10/06/22-VRE; 05/19/23- MRSA MDRO Source:: ESBL-urine; VRE-urine; MRSA-abdomen Past Surgical History: Cholecystectomy, Orthopedic Surgery, Tubal Ligation Additional Past Surgical History / Comment(s): rt shoulder, J tube placement Past Anesthesia/Blood Transfusion Reactions: No Reported Reaction Additional Past Anesthesia/Blood Transfusion Reaction / Comment(s): UNK FAMILY HX Past Psychological History: Anxiety Smoking Status: Current every day smoker Past Alcohol Use History: None Reported Past Drug Use History: None Reported Plan - Discharge Summary Discharge Rx Participant: No New Discharge Prescriptions: New Nicotine 21Mg/24Hr Patch [Habitrol] 1 patch TRANSDERM DAILY #30 patch Continue Mirtazapine [Remeron] 30 mg PO HS Metoclopramide [Reglan] 10 mg PO ACHS 30 Days #120 tab Ferrous Sulfate [Iron (65 MG Elemental)] 325 mg PO DAILY Insulin Glargine (Lantus) [Lantus Vial] 10 unit SQ DAILY amLODIPine [Norvasc] 5 mg PO DAILY 90 Days #90 tab HYDROcodone/APAP 10-325MG [[place] 10-325] 1 tab PO TID Cholestyramine (with Sugar) [Questran Packet] 4 gm PO BID@1000,1800 30 Days #30 packet lisinopriL [Zestril] 5 mg PO DAILY 30 Days #30 tab ALPRAZolam [Xanax] 0.5 mg PO BID Insulin Lispro [humaLOG Kwikpen] See Protocol SQ ACHS Atorvastatin [Lipitor] 20 mg PO DAILY Folic Acid 1 mg PO DAILY Famotidine [Pepcid] 20 mg PO BID 30 Days #60 tab methocarbamoL [Robaxin] 250 mg PO QID Ondansetron [Zofran] 4 mg PO QID Artificial Tears-Hypromellose [Artificial Tear Drops] 1 drop BOTH EYES QID PRN PRN Reason: Dry Eye(S) Scopolamine [Scopolamine 1 MG/72 HR patch] 1 patch TRANSDERM Q72H PRN PRN Reason: Nausea Ipratropium-Albuterol Nebulize [Duoneb 0.5 mg-3 mg/3 ml Soln] 3 ml INHALATION RT-TID PRN each PRN Reason: Shortness Of Breath Or Wheezing Metoprolol Tartrate [Lopressor] 50 mg PO BID Discharge Medication List Atorvastatin [Lipitor] 20 mg PO DAILY 05/12/23 [History] Insulin Lispro [humaLOG Kwikpen] See Protocol SQ ACHS 05/12/23 [History] Mirtazapine [Remeron] 30 mg PO HS 05/12/23 [History] Metoclopramide [Reglan] 10 mg PO ACHS 30 Days #120 tab 05/15/23 [Rx] Folic Acid 1 mg PO DAILY 06/15/23 [History] Ferrous Sulfate [Iron (65 MG Elemental)] 325 mg PO DAILY 12/09/23 [History] Insulin Glargine (Lantus) [Lantus Vial] 10 unit SQ DAILY 12/09/23 [History] amLODIPine [Norvasc] 5 mg PO DAILY 90 Days #90 tab 12/19/23 [Rx] Famotidine [Pepcid] 20 mg PO BID 30 Days #60 tab 01/18/24 [Rx] Ondansetron [Zofran] 4 mg PO QID 02/21/24 [History] methocarbamoL [Robaxin] 250 mg PO QID 02/21/24 [History] Artificial Tears-Hypromellose [Artificial Tear Drops] 1 drop BOTH EYES QID PRN 03/19/24 [History] Scopolamine [Scopolamine 1 MG/72 HR patch] 1 patch TRANSDERM Q72H PRN 03/19/24 [History] HYDROcodone/APAP 10-325MG [[place] 10-325] 1 tab PO TID 05/10/24 [History] Cholestyramine (with Sugar) [Questran Packet] 4 gm PO BID@1000,1800 30 Days #30 packet 05/20/24 [Rx] Ipratropium-Albuterol Nebulize [Duoneb 0.5 mg-3 mg/3 ml Soln] 3 ml INHALATION RT-TID PRN each 05/20/24 [Rx] lisinopriL [Zestril] 5 mg PO DAILY 30 Days #30 tab 05/20/24 [Rx] Metoprolol Tartrate [Lopressor] 50 mg PO BID 06/19/24 [History] ALPRAZolam [Xanax] 0.5 mg PO BID 07/16/24 [History] Nicotine 21Mg/24Hr Patch [Habitrol] 1 patch TRANSDERM DAILY #30 patch 08/04/24 [Rx] Follow up Appointment(s)/Referral(s): Dell Pike MD [Primary Care Provider] - 1-2 days (please call to schedule, you were discharged from [facility] 08/04/24) Mary Bear MD [STAFF PHYSICIAN] - 1 Week (please call to schedule, you were discharged from [facility] 08/04/24) [facility], [NON-STAFF] - 1 Week (homecare will call you to schedule appointments. ) [facility] [REFERRING] - 1 Week Patient Instructions/Handouts: Diabetic Gastroparesis (DC), Upper Endoscopy (DC) Discharge Disposition: HOME SELF-CARE
== END 2024-08-04 14:26 | disposition home health service (06) | DRG 377 ==
LOC: EC 20:15 → 6NMEDSUR 23:17 → 3SCARD 08-01 07:23 → OBSVTOIN 08-01 15:18 → 3SCARD 08-01 18:12
PROVIDERS: ADMIT Family Medicine; ATTEND Family Medicine
PROC: 0DB68ZX Excision of Stomach, Via Natural or Artificial Opening Endoscopic, Diagnostic (ICD-10-PCS; principal; 2024-08-03 08:30)
DX: K29.71 Gastritis, unspecified, with bleeding (principal); E43 Unspecified severe protein-calorie malnutrition; E11.43 Type 2 diabetes mellitus with diabetic autonomic (poly)neuropathy; J44.9 Chronic obstructive pulmonary disease, unspecified; I10 Essential (primary) hypertension; F32.A Depression, unspecified; D62 Acute posthemorrhagic anemia; Z68.1 Body mass index [BMI] 19.9 or less, adult; N17.9 Acute kidney failure, unspecified; Z79.4 Long term (current) use of insulin; K92.0 Hematemesis; K31.84 Gastroparesis; F17.210 Nicotine dependence, cigarettes, uncomplicated; E78.5 Hyperlipidemia, unspecified; F51.04 Psychophysiologic insomnia; K21.00 Gastro-esophageal reflux disease with esophagitis, without bleeding; Z88.8 Allergy status to other drugs, medicaments and biological substances; Z79.899 Other long term (current) drug therapy
CPT/HCPCS: 36415; 43239; 74019; 80048; 80053; 81001; 83690; 84703; 85025; 88305; 96361; 96374; 96375; 96376; 99285